=== PATIENT | female | born 1990 | race Caucasian/White ===

== ENCOUNTER 2019-06-23 11:54 | Emergency (ER) | payer SELFPAY ==
[~2019-06-23] VITALS: Ht 167.6 cm; Wt 65.8 kg
[2019-06-23] MEDS ORDERED: METFORMIN HCL850 MG PO ×2 (12:20→15:34)
[2019-06-23] MEDS ORDERED: LEVEMIR100 UNIT/1 SUB-Q (12:20)
[2019-06-23] MEDS ORDERED: HUMALOG100 UNIT/1 SUB-Q (12:20)
[2019-06-23] MEDS ORDERED: CREON DR 24,001 EACH PO ×2 (12:21→15:34)
[2019-06-23] MEDS ORDERED: ACTOS30 MG PO ×2 (12:21→15:34)
[2019-06-23] MEDS ORDERED: OMEPRAZOLE20 M1 PO (12:22)
[2019-06-23] MEDS ORDERED: SYNTHROID100 MCG PO ×2 (12:22→15:34)
[2019-06-23] MEDS ORDERED: MINIPRESS2 MG PO ×2 (12:22→15:34)
[2019-06-23] MEDS ORDERED: ZOFRAN4 MG PO (12:23)
[2019-06-23] MEDS ORDERED: SEROQUEL100 MG PO (12:24)
[2019-06-23] MEDS ORDERED: PROZAC20 MG PO (12:24)
[2019-06-23] MEDS ORDERED: CRESTOR40 MG NG ×2 (12:25→15:34)
[2019-06-23] MEDS ORDERED: MAGNESIUM400 MG PO (12:25)
[2019-06-23] MEDS ORDERED: DOCUPRENE100 MG PO (12:25)
[2019-06-23] MEDS ORDERED: HUMALOG KW200 UNIT/1 SUB-Q (15:34)
[2019-06-23] MEDS ORDERED: OMEPRAZOLE20 MG PO (15:34)
[2019-06-23] MEDS ORDERED: LEVEMIR FL100 UNIT/2 SUB-Q (15:34)
[2019-06-23] MEDS ORDERED: ZOFRAN8 MG PO (15:34)
[2019-06-23] MEDS ORDERED: DOK100 MG PO (15:34)
[2019-06-23] MEDS ORDERED: MAGNESIUM400 M1 PO (15:34)
[2019-06-23] MEDS ORDERED: BACTRIM DS TAB1 EACH PO (15:35)
[2019-06-23] MEDS ORDERED: KEFLEX500 MG PO (15:35)
== END 2019-06-24 08:10 ==
LOC: ED 11:54
DX: F31.9 Bipolar disorder, unspecified (principal); B37.3 Candidiasis of vulva and vagina; E13.9 Other specified diabetes mellitus without complications; E78.5 Hyperlipidemia, unspecified; F17.200 Nicotine dependence, unspecified, uncomplicated
CPT/HCPCS: 80053; 80176; 81001; 84443; 84703; 85025; 99285; A9270; G0480; J1815

== ENCOUNTER 2020-01-23 14:12 | Emergency (ER) | payer MEDICARE, OTHER ==
[~2020-01-23] VITALS: Ht 165.1 cm; Wt 74.8 kg
[~2020-01-23 14:12] MED LIST: ACTOS30 MG PO; BACTRIM DS TAB1 EACH PO; CREON DR 24,001 EACH PO; CRESTOR40 MG NG; DOCUPRENE100 MG PO; DOK100 MG PO; HUMALOG KW200 UNIT/1 SUB-Q; HUMALOG100 UNIT/1 SUB-Q; KEFLEX500 MG PO; LEVEMIR FL100 UNIT/2 SUB-Q; LEVEMIR100 UNIT/1 SUB-Q; MAGNESIUM400 M1 PO; MAGNESIUM400 MG PO; METFORMIN HCL850 MG PO; MINIPRESS2 MG PO; OMEPRAZOLE20 M1 PO; OMEPRAZOLE20 MG PO; PROZAC20 MG PO; SEROQUEL100 MG PO; SYNTHROID100 MCG PO; ZOFRAN4 MG PO; ZOFRAN8 MG PO
[2020-01-23] MEDS ORDERED: SEROQUEL200 MG PO (14:42)
[2020-01-23] MEDS ORDERED: CLOZAPINE100 MG PO (14:43)
[2020-01-23] MEDS ORDERED: TOPAMAX25 MG PO (14:43)
[2020-01-23] MEDS ORDERED: FLOVENT HFA10.6 GM INH (14:44)
[2020-01-23] MEDS ORDERED: VISTARIL50 MG PO (14:44)
[2020-01-23] MEDS ORDERED: NORCO 5-325 TA1 EACH PO (17:24)
[2020-01-23] MEDS ORDERED: ONDANSETRON ODT8 MG PO (17:24)
== END 2020-01-23 17:47 | disposition home or self-care (01) ==
LOC: ED 14:12
DX: K85.90 Acute pancreatitis without necrosis or infection, unspecified (principal); F31.9 Bipolar disorder, unspecified; E11.9 Type 2 diabetes mellitus without complications; E78.5 Hyperlipidemia, unspecified; F17.200 Nicotine dependence, unspecified, uncomplicated; Z88.8 Allergy status to other drugs, medicaments and biological substances; Z79.4 Long term (current) use of insulin; Z79.899 Other long term (current) drug therapy
CPT/HCPCS: 80053; 81001; 83690; 84703; 85025; 96361; 96374; 96375; 96376; 99284-25; J1170; J1815; J2405; J7030

== ENCOUNTER 2020-02-12 12:02 | Emergency (ER) | payer MEDICARE, OTHER ==
[~2020-02-12] VITALS: Ht 167.6 cm; Wt 74.8 kg
[~2020-02-12 12:02] MED LIST changes: +CLOZAPINE100 MG PO; +FLOVENT HFA10.6 GM INH; +NORCO 5-325 TA1 EACH PO; +ONDANSETRON ODT8 MG PO; +SEROQUEL200 MG PO; +TOPAMAX25 MG PO; +VISTARIL50 MG PO
[2020-02-12] MEDS ORDERED: ZOFRAN4 MG PO (15:17)
== END 2020-02-12 15:26 | disposition home or self-care (01) ==
LOC: ED 12:02
DX: E11.65 Type 2 diabetes mellitus with hyperglycemia (principal); E86.0 Dehydration; R74.8 Abnormal levels of other serum enzymes; F31.9 Bipolar disorder, unspecified; E78.5 Hyperlipidemia, unspecified; J45.909 Unspecified asthma, uncomplicated; Z88.8 Allergy status to other drugs, medicaments and biological substances; Z79.4 Long term (current) use of insulin; Z79.899 Other long term (current) drug therapy
CPT/HCPCS: 71045; 80053; 80061; 81001; 82800; 83690; 83735; 84703; 85025; 96361; 96374; 96375; 99285-25; G0480; J1815; J1885; J2270; J2405; J7030

== ENCOUNTER 2021-03-30 11:16 | Inpatient (IN) | payer MEDICARE, OTHER ==
[~2021-03-30] VITALS: Ht 165.1 cm; Wt 65.3 kg
[2021-03-30] MEDS ORDERED: CYCLOBENZAPRINE5 MG PO (15:41)
[2021-03-30] MEDS ORDERED: BUSPIRONE HCL10 MG PO (15:42)
[2021-03-30] MEDS ORDERED: QUETIAPINE FUM100 MG PO (15:43)
[2021-03-30] MEDS ORDERED: FENOFIBRATE120 MG PO (15:45)
[2021-03-30] MEDS ORDERED: CREON DR 24,001 EACH PO (15:45)
[2021-03-30] MEDS ORDERED: FLUTICASONE PRO16 GM NAS (15:47)
[2021-03-30] MEDS ORDERED: HUMALOG100 UNIT/2 SUB-Q (15:48)
[2021-03-30] MEDS ORDERED: LATUDA40 MG PO (15:49)
[2021-03-30] MEDS ORDERED: ONDANSETRON ODT4 MG PO (15:50)
[2021-03-30] MEDS ORDERED: PULMICORT FLEX90 MCG INH (15:50)
[2021-03-30] MEDS ORDERED: TOPIRAMATE50 MG PO (15:50)
[2021-03-30] MEDS ORDERED: METFORMIN HCL850 MG PO (15:52)
[2021-03-30] MEDS ORDERED: VENTOLIN HFA18 GM INH (16:37)
[2021-03-30] MEDS ORDERED: EUTHYROX100 MCG PO (16:38)
[2021-03-30] MEDS ORDERED: LANTUS SOL100 UNIT/1 SUB-Q (16:39)
[2021-03-30] MEDS ORDERED: LO-DOSE ASPIRIN81 M1 PO (17:49)
[2021-03-30] MEDS ORDERED: PRENATAL TABLE1 EAC3 PO (17:50)
--- NOTE | 2021-03-31 13:37 | EKG ---
[facility] [address] [facility] [place], [place] [address] Signed Sinus tachycardia Cannot rule out Anterior infarct , age undetermined Abnormal ECG No previous ECGs available Confirmed by WENDI HOLBROOK MD ([id number]) on 03/31/2021 1:36:56 PM Electronically Signed By: WENDI HOLBROOK MD 03/31/21 1337 PATIENT NAME: CLIFF LEEMONIE JENNINGSANN MARTHA Electrocardiogram DATE OF : 88 PHYSICIAN: WENDI HOLBROOK MD REPORT #: [id number] REPORT IS CONFIDENTIAL AND NOT TO BE RELEASED WITHOUT AUTHORIZATION
== END 2021-04-01 09:10 | disposition home or self-care (01) | DRG 832 ==
LOC: FBC 11:16 → MS 12:30 → FBC 12:31
PROVIDERS: ADMIT Obstetrics & Gynecology; ATTEND Obstetrics & Gynecology
DX: O24.112 Pre-existing type 2 diabetes mellitus, in pregnancy, second trimester (principal); O99.322 Drug use complicating pregnancy, second trimester; O99.282 Endocrine, nutritional and metabolic diseases complicating pregnancy, second trimester; Z20.822 Contact with and (suspected) exposure to COVID-19; E78.5 Hyperlipidemia, unspecified; F15.10 Other stimulant abuse, uncomplicated; E11.65 Type 2 diabetes mellitus with hyperglycemia; O99.512 Diseases of the respiratory system complicating pregnancy, second trimester; J45.909 Unspecified asthma, uncomplicated; F19.10 Other psychoactive substance abuse, uncomplicated; O99.342 Other mental disorders complicating pregnancy, second trimester; F41.9 Anxiety disorder, unspecified; O99.332 Smoking (tobacco) complicating pregnancy, second trimester; F17.210 Nicotine dependence, cigarettes, uncomplicated; F31.9 Bipolar disorder, unspecified; F43.10 Post-traumatic stress disorder, unspecified; Z3A.15 15 weeks gestation of pregnancy; Z88.8 Allergy status to other drugs, medicaments and biological substances
CPT/HCPCS: 80053; 82570; 84156; 85025; 93005; 93010; 94640; 94760; 97802; 99406; A9270; C9803; J1815; U0003

== ENCOUNTER 2021-06-04 07:04 | Emergency (ER) | payer MEDICARE, OTHER ==
[~2021-06-04] VITALS: Ht 165.1 cm; Wt 80.4 kg
[~2021-06-04 07:04] MED LIST changes: +BUSPIRONE HCL10 MG PO; +CYCLOBENZAPRINE5 MG PO; +EUTHYROX100 MCG PO; +FENOFIBRATE120 MG PO; +FLUTICASONE PRO16 GM NAS; +HUMALOG100 UNIT/2 SUB-Q; +LANTUS SOL100 UNIT/1 SUB-Q; +LATUDA40 MG PO; +LO-DOSE ASPIRIN81 M1 PO; +ONDANSETRON ODT4 MG PO; +PRENATAL TABLE1 EAC3 PO; +PULMICORT FLEX90 MCG INH; +QUETIAPINE FUM100 MG PO; +TOPIRAMATE50 MG PO; +VENTOLIN HFA18 GM INH
[2021-06-04] MEDS ORDERED: CYCLOBENZAPRINE10 MG PO (08:12)
== END 2021-06-04 08:31 | disposition home or self-care (01) ==
LOC: ED 07:04
DX: O9A.212 Injury, poisoning and certain other consequences of external causes complicating pregnancy, second trimester (principal); S39.012A Strain of muscle, fascia and tendon of lower back, initial encounter; E07.9 Disorder of thyroid, unspecified; O24.912 Unspecified diabetes mellitus in pregnancy, second trimester; E11.9 Type 2 diabetes mellitus without complications; O99.282 Endocrine, nutritional and metabolic diseases complicating pregnancy, second trimester; E78.5 Hyperlipidemia, unspecified; O99.512 Diseases of the respiratory system complicating pregnancy, second trimester; J45.909 Unspecified asthma, uncomplicated; O99.332 Smoking (tobacco) complicating pregnancy, second trimester; F17.200 Nicotine dependence, unspecified, uncomplicated; Z91.048 Other nonmedicinal substance allergy status; Z88.8 Allergy status to other drugs, medicaments and biological substances; Z3A.25 25 weeks gestation of pregnancy; Z79.899 Other long term (current) drug therapy; Z79.82 Long term (current) use of aspirin; Z79.890 Hormone replacement therapy
CPT/HCPCS: 81001; 99284; A9270

== ENCOUNTER 2021-07-18 11:56 | Inpatient (IN) | payer MEDICARE, OTHER ==
[~2021-07-18] VITALS: Ht 165.1 cm; Wt 73.9 kg
[~2021-07-18 11:56] MED LIST changes: +CYCLOBENZAPRINE10 MG PO
--- NOTE | 2021-07-18 13:30 | NUR ---
both nares swabbed for covid-19 without complication. sample taken to lab.
--- NOTE | 2021-07-18 15:28 | PR ---
[facility] [address] [place], [place] [address] Signed AP Progress Notes Datetime Report Generated by CPN: 07/18/2021 15:28 Chief Complaint: Lab results PHYSICAL EXAM: [id number] Impression: IUD @ 31w1d PreE with severe features; BPs improved s/p procardia and pt stable on mag Diabetic ketoacidosis; Consult Dr. Basurto. M paged and awaiting call back re timing transfer IDDM uncontrolled Plan: Called and Dr. Ha M accepted transfer of patient as labs were pending. Labs returned and demonstrate pt in DKA. Sodium 118, Anion gap 25, Creat 0.67. Glucose 491. Consulted Dr. Basurto who has started patient on insulin drip and IV fluids. He feels the patient could be appropriate for transfer if accepting doctor agrees. Page to Dr Ha and awaiting return of page to discuss further. VITAL SIGNS: [id number] Vital Signs: Reviewed VS Notable Details: Severe range BPs EXAM: [id number] Contraction Comments: None MEMBRANES: [id number] FETUS A: [id number] FHR Baseline: 125 Variability: Moderate 6-25bpm Accelerations: None Deceleration: None FHR Category: Category I FHR Comments: No evidence of metabolic acidosis Presentation: Vertex FETUS B: [id number] PROGRESS NOTES: [id number] Signing Physician: Enio Elliott DO Copies: ~ *Electronically Signed* 07/18/21 1528 ENIO ELLIOTT DO PATIENT NAME: ROSASHAMEKA MARCELA THOMAS PROGRESS NOTE DATE OF : 88 PHYSICIAN: ENIO ELLIOTT DO RPT #: [id number] REPORT IS CONFIDENTIAL AND NOT TO BE RELEASED WITHOUT AUTHORIZATION
--- NOTE | 2021-07-18 15:30 | NUR ---
IN TO ASSIST [facility] NURSE PRADEEP WITH CARE OF PT AND MANAGE INSULIN DRIP, REPORT RECEIVED FROM PRADEEP NATION AND RAVIN RN. PLAN DISCUSSED WITH DR HOLBROOK TO START PT ON INSULIN DRIP AND TITRATE PER PROTOCOL AND SWITCH IVF TO NS WITH 40KCL AT 200ML/HR. PT ALSO HAS MAGNESIUM INFUSION INFUSING AT 2G/HR. PLAN DISCUSSED WITH PT, SHE ASKS IF WE CAN USE HER OWN CONT GLUCOSE MONITORING INSTEAD OF POKING HER FINGER, BLOOD SUGAR CHECKED WITH OUR MACHING AND THE NUMBERS DO NOT CORRELATE, PTS MACHING SAID 291 AND OURS SAID 342, EXPLAINED TO PT NEED TO USE OURS AND SHE AGREES. INSULIN INFUSION WILL START AT 6 UNITS/HR, VERIFIED WITH SECOND RN. CURRENT VS ARE HR 120'S. PT IS AWAKE AND ALERT, TALKING WITH SIG OTHER AND OTHER SUPPORT PEOPLE IN ROOM. MONITORING IS BEING DONE BY [facility] CHAPIS FERNÁNDEZ.
--- NOTE | 2021-07-18 15:54 | PR ---
[facility] [address] [place], [place] [address] Signed AP Progress Notes Datetime Report Generated by CPN: 07/18/2021 15:54 Chief Complaint: PreE with severe features ; DKA PHYSICAL EXAM: [id number] General: Normal HEENT: Normal Neurologic: Normal Cardiovascular: Normal Respiratory: Normal Breast: Not Done Back: Normal Genitourinary Exam: Not Done Extremities: Normal Impression: IUP @31w1d Preeclampsia w/ severe features; stable on mag s/p procardia DKA IDDM uncontrolled Plan: Reviewed case w/ Dr. Ha including reassuring FHT. She recommends proceeding with maternal transfer by [facility]. Transfer team en route. Will continue magneisum and insulin drip. All questions answered VITAL SIGNS: [id number] Vital Signs: Reviewed VS Notable Details: Severe range BPs EXAM: [id number] Contraction Comments: None MEMBRANES: [id number] FETUS A: [id number] FHR Baseline: 125 Variability: Moderate 6-25bpm Accelerations: None Deceleration: None FHR Category: Category I FHR Comments: No evidence of metabolic acidosis Presentation: Vertex FETUS B: [id number] PROGRESS NOTES: [id number] Signing Physician: Enio Elliott DO *Electronically Signed* 07/18/21 1554 ENIO ELLIOTT DO PATIENT NAME: SHAMEKA LEE PROGRESS NOTE DATE OF : 88 PHYSICIAN: ENIO ELLIOTT DO RPT #: [id number] REPORT IS CONFIDENTIAL AND NOT TO BE RELEASED WITHOUT AUTHORIZATION [facility] [address] [place], [place] [address], [place] [address] Signed Copies: ~ *Electronically Signed* 07/18/21 1554 ENIO ELLIOTT DO PATIENT NAME: SHAMEKA LEE PROGRESS NOTE DATE OF : 88 PHYSICIAN: ENIO ELLIOTT DO RPT #: [id number] REPORT IS CONFIDENTIAL AND NOT TO BE RELEASED WITHOUT AUTHORIZATION
--- NOTE | 2021-07-18 16:25 | NUR ---
BLOOD SUGAR DOWN TO 313, INSULIN DRIP TITRATED DOWN TO 5 UNITS/HR AND VERIFIED BY SECOND RN.
--- NOTE | 2021-07-18 18:05 | PR ---
[facility] [address] [place], [place] [address] Signed AP Progress Notes Datetime Report Generated by CPN: 07/18/2021 18:05 Chief Complaint: PReE with severe features, DKA PHYSICAL EXAM: [id number] General: Normal HEENT: Normal Neurologic: Normal Cardiovascular: Normal Respiratory: Normal Breast: Not Done Back: Normal Genitourinary Exam: Not Done Extremities: Normal Impression: IUP @31w1d Preeclampsia w/ severe features; stable on mag s/p procardia DKA IDDM uncontrolled Plan: Pt w/ elevated bps improved w/ IV labetalol per protocol. Glucose improved w/ insulin drip. Transfer unfortunately delayed due to weather in the [place] area. FHT reassuring. Pt struggling with NPO and continuous monitoring and become aggitated at times. Able to be redirected. VITAL SIGNS: [id number] Vital Signs: Reviewed VS Notable Details: Severe range BPs EXAM: [id number] Contraction Comments: None MEMBRANES: [id number] FETUS A: [id number] FHR Baseline: 125 Variability: Moderate 6-25bpm Accelerations: None Deceleration: None FHR Category: Category I FHR Comments: No evidence of metabolic acidosis Presentation: Vertex FETUS B: [id number] PROGRESS NOTES: [id number] Signing Physician: Enio Elliott DO *Electronically Signed* 07/18/21 0063 ENIO ELLIOTT DO PATIENT NAME: SHAMEKA LEE PROGRESS NOTE DATE OF : 88 PHYSICIAN: ENIO ELLIOTT DO RPT #: [id number] REPORT IS CONFIDENTIAL AND NOT TO BE RELEASED WITHOUT AUTHORIZATION [address] [place], [place] [address] Signed Copies: ~ *Electronically Signed* 07/18/21 1805 ENIO ELLIOTT DO PATIENT NAME: SHAMEKA LEE PROGRESS NOTE DATE OF : 88 PHYSICIAN: ENIO ELLIOTT DO RPT #: [id number] REPORT IS CONFIDENTIAL AND NOT TO BE RELEASED WITHOUT AUTHORIZATION
--- NOTE | 2021-07-18 18:47 | NUR ---
DISCUSSED BPS WITH DR HERNANDEZ, ORDER GIVEN TO WAIT 15 MINUTES AND THEN GIVE ANOTHER 80MG IV LABETOLOL PRN SBP>160MMHG. BP 162/104 AFTER FIFTEEN MINUTES, 80MG IV LABETOLOL GIVEN.
--- NOTE | 2021-07-18 19:01 | NUR ---
DISCUSSED PTS CONTINUED C/O NAUSEA WITH DR HERNANDEZ, ORDER GIVEN FOR 12.5MG IV PHENERGAN AGAIN. [facility] RN REMAINS AT BEDSIDE OF PT DOING MONITORING.
--- NOTE | 2021-07-18 19:44 | PR ---
[facility] [address] [place], [place] [address] Signed AP Progress Notes Datetime Report Generated by CPN: 07/18/2021 19:44 Chief Complaint: PReE with severe features, DKA PHYSICAL EXAM: [id number] General: Normal HEENT: Normal Neurologic: Normal Thyroid: Not Done Cardiovascular: Normal Respiratory: Normal Breast: Not Done Back: Normal Abdomen: Normal Genitourinary Exam: Not Done Extremities: Normal Impression: IUP @ 31w1d PreE w/ severe features - improved s/p labetalol. On magnesium 2g/hr IDDM w/ DKA on insulin drip. Last glucose 242. Plan: Called and reviewed case w/ Dr Ha. Weather unchanged and not likely to in the foreseeable future restricting air transfer. We discussed transportation options vs continued management here and we both recommend ground transport. FHT reassuring with no decelerations noted. Reviewed w/ pt. All questions answered. Coordinating transport now. VITAL SIGNS: [id number] Vital Signs: Reviewed VS Notable Details: Severe range BPs EXAM: [id number] Contraction Comments: None MEMBRANES: [id number] FETUS A: [id number] FHR Baseline: 125 Variability: Moderate 6-25bpm Accelerations: None Deceleration: None FHR Category: Category I FHR Comments: No evidence of metabolic acidosis Presentation: Vertex FETUS B: [id number] PROGRESS NOTES: [id number] *Electronically Signed* 07/18/21 ENIO MIRAMONTES DO PATIENT NAME: SHAMEKA LEE PROGRESS NOTE DATE OF : 88 PHYSICIAN: ENIO ELLIOTT DO RPT #: [id number] REPORT IS CONFIDENTIAL AND NOT TO BE RELEASED WITHOUT AUTHORIZATION [address] [place] [address] Signed Signing Physician: Enio Elliott DO Copies: ~ *Electronically Signed* 07/18/211943 ENIO ELLIOTT DO PATIENT NAME: SHAMEKA LEE PROGRESS NOTE DATE OF : 88 PHYSICIAN: ENIO ELLIOTT DO RPT #: [id number] REPORT IS CONFIDENTIAL AND NOT TO BE RELEASED WITHOUT AUTHORIZATION
--- NOTE | 2021-07-18 20:30 | NUR ---
PER DR HOLBROOK INSULIN DRIP TITRATED TO 2 UNITS PER HOUR. FLUIDS CHANGED TO D5 NS WITH 20 mEq KCL. MENDEL NATION VERIFIED CHANGE.
--- NOTE | 2021-07-18 20:47 | PR ---
[facility] [address] [place], [place] [address] Signed AP Progress Notes Datetime Report Generated by CPN: 07/18/2021 20:47 Chief Complaint: DKA, Preeclampsia w/ severe features PHYSICAL EXAM: [id number] General: Normal HEENT: Normal Neurologic: Normal Thyroid: Not Done Cardiovascular: Normal Respiratory: Normal Breast: Not Done Back: Normal Abdomen: Normal Genitourinary Exam: Not Done Extremities: Normal Impression: IUP @ 31w1d PreE w/ severe features: stable on Mag DKA: improved. Last blood glucose 214. Insulin infusion for transfer per Dr. Basurto Plan: Transport team arrived and sign out given. All questions answered. Reviewed reassuring FHT given gestational age and magnesium. No decelerations noted. BPs stable. All questions answered VITAL SIGNS: [id number] Vital Signs: Reviewed VS Notable Details: Severe range BPs EXAM: [id number] Contraction Comments: None MEMBRANES: [id number] FETUS A: [id number] FHR Baseline: 125 Variability: Moderate 6-25bpm Accelerations: None Deceleration: None FHR Category: Category I FHR Comments: No evidence of metabolic acidosis Presentation: Vertex FETUS B: [id number] PROGRESS NOTES: [id number] Signing Physician: Enio Elliott DO *Electronically Signed* 07/18/212046 ENIO ELLIOTT DO PATIENT NAME: SHAMEKA LEE PROGRESS NOTE DATE OF : 88 PHYSICIAN: ENIO ELLIOTT DO RPT #: [id number] REPORT IS CONFIDENTIAL AND NOT TO BE RELEASED WITHOUT AUTHORIZATION [address] [place] [address] Signed Copies: ~ *Electronically Signed* 07/18/212046 ENIO ELLIOTT DO PATIENT NAME: SHAMEKA LEE PROGRESS NOTE DATE OF : 88 PHYSICIAN: ENIO ELLIOTT DO RPT #: [id number] REPORT IS CONFIDENTIAL AND NOT TO BE RELEASED WITHOUT AUTHORIZATION
== END 2021-07-18 21:09 | disposition home or self-care (01) | DRG 831 ==
LOC: FBC 11:56
PROVIDERS: ADMIT Obstetrics & Gynecology; ATTEND Obstetrics & Gynecology
PROC: 05HY33Z Insertion of Infusion Device into Upper Vein, Percutaneous Approach (ICD-10-PCS; principal; 2021-07-18 14:00)
DX: O24.113 Pre-existing type 2 diabetes mellitus, in pregnancy, third trimester (principal); E11.10 Type 2 diabetes mellitus with ketoacidosis without coma; O14.13 Severe pre-eclampsia, third trimester; E87.1 Hypo-osmolality and hyponatremia; Z20.822 Contact with and (suspected) exposure to COVID-19; Z3A.31 31 weeks gestation of pregnancy; E87.6 Hypokalemia; O99.283 Endocrine, nutritional and metabolic diseases complicating pregnancy, third trimester; E03.9 Hypothyroidism, unspecified; Z79.4 Long term (current) use of insulin; Z91.14 Patient's other noncompliance with medication regimen; Z88.8 Allergy status to other drugs, medicaments and biological substances; Z91.09 Other allergy status, other than to drugs and biological substances; Z79.899 Other long term (current) drug therapy
CPT/HCPCS: 36415; 36569; 80048; 80053; 82010; 82570; 83036; 84156; 84550; 85027; A9270; C9803; J1815; J2550; J3475; J3480; U0003

== ENCOUNTER 2021-08-11 09:38 | Inpatient (IN) | payer MEDICARE, OTHER ==
[~2021-08-11] VITALS: Ht 152.4 cm; Wt 78.9 kg
--- NOTE | 2021-08-11 15:02 | NUR ---
REPORT RECIEVED FROM ER NURSE HANNY.
--- NOTE | 2021-08-11 15:02 | NUR ---
REPORT RECEIVED FROM CHAPIS URBINA. AWAITING PTS ARRIVAL TO UNIT.
--- NOTE | 2021-08-11 15:27 | NUR ---
PT ARRIVED FROM ER. PT TRANSFERED SELF TO BED. PT STEADY ON FEET. PT REPORTS 9/10 PAIN IN ABDOMEN RELATED TO INFECTION. SEE MAR FOR MEDICATION GIVEN. PT ALSO REPORTS ITCHING AND NASUEA. PHENEGRAN GIVEN, DILUTED IN 20ML NS AND GIVEN BY SLOW PUSH. PT ANXIOUS AND AGITATES, SCRATCHING AT SKIN AND PICKING AT WOUNDS PTS STATES "WELL MY FRIEND GAVE ME SOMETHING THAT MIGHT HAVE HAD METH IN IT." PT UNSURE OF WHEN SHE HAD THIS "SOMETHING" "MAYBE A FEW DAYS AGO." PT ORIENTED TO ALL. TACHYCARDIA NOTED. LUNG SOUNDS CLEAR. PT REMAINS NPO A THIS TIME. COOL CLOTH PROVIDED FOR ITCHING. CH CATHETER IN PLACE, CATHETER AND CATHETER BAG VERY DIRTY, DIRT NOTED ARROUND EDGES OF BAG. CATEHTER LEFT IN PLACE PER MD ORDER, CATHETER BAG CHANGE. CATHETER CARE DONE. PT REPORTS VAGINAL BLEEDING SINCE DEIVERING HER SON. TRANSVERSE AND MIDLINE WOUND TO ABDOMEN HAS MEEK INTACT, FOWEL YELLOW DRAINAGE NOTED. ERYTHEMY NOTED ALL AROUND BOTH INCISIONS. PT PLAYING ON PHONE. MAKES INAPPROPRIATE JOKES AND COMMENTS FROM PHONE. PT DENIES ADDITIONAL REQUESTS OR COMPLAINTS. CALL LIGHT WITHIN REACH. BED RAILS UP. BED ALARM ON. INCISIONS.
--- NOTE | 2021-08-11 16:10 | NUR ---
THIS RN TO ROOM TO CHECK ON PT. PT CONTINEUS PLAYING ON PHONE. PT REPORTS "I THINK THE ITCHING IS BETTER." PT CALMER AND RESTING IN BED. NO ADDITIONAL REQUESTS OR COMPLAINTS. CALL LIGHT ELADIO HEART. BED RAILS UP.
--- NOTE | 2021-08-11 17:08 | NUR ---
OR TEAM ARRIVED TO TAKE PT TO SURGERY. BED SIDE CBG DONE PER ROLANDO PEREZ BEDSIDE ORDER. BLOOD SUGAR = 175 AT THIS TIME. PT REPORTS 7/10 PAIN AT THIS TIME AND STATES "THAT MEDICATION HELPED." PT TEXTING ON PHONE WHILE TALKING TO CASINO DEALER. DR. HERNANDEZ TO BEDSIDE TO TALK WITH PT. PT VERBALIZES UNDERSTANDING OF PLAN OF CARE AND STATES HER QUESTIONS HAVE BEEN ANSWERED. REPORT GIVEN TO JESE LILLY RN, AND ROLANDO PEREZ. PT TO OR. NO ADDITIONAL NEEDS AT THIS TIME.
--- NOTE | 2021-08-11 18:29 | NUR ---
08/11/21 182 Rakel King 181 PT ARRIVED TO PACU ON 6L VIA MASK, VSS. PT WAKES AND REORIENTED TO PACU. 1813 O2 REMOVED, CBG 167 CHECKED BY PT OWN CBG CHECK. PT ON PHONE AND CALLED "BOYFRIEND". PT DENIES PAIN. PT REPORTS "I AM UNABLE TO MOVE LEGS AND IT FEELS WIERD." SPINAL EDUCATION GIVEN. 1824 PT GETTING OFF PHONE. HOB INCREASED SLIGHTLY. 1827 PT CALLED ANOTHER PERSON AND TLAKING TO RN OFF AND ON. PT SIPPING WATER.
--- NOTE | 2021-08-11 18:54 | NUR ---
PT ARRIVED FROM PACU. REPORT RECEIVED FROM CHAPIS DEL ANGEL. PT RESTING IN BED. PT AGITATED WITH NOT BEING ABLE TO FEEL HER LEGS. PT DENIES PAIN IN ABDOMEN OR SURGICAL SITE. PT REPORTS PAIN AT IV SITE. IV FLUSHED AND INFILTRATION NOTED. IV DC'D PER PROTOCOL, GAUZE AND COBAN APPLIED. SPINAL LEVEL AT T-11. HEAD OF BED ELEVATED TO 33 DEGREES. WOUND VAC IN PLACE OVER CENTRAL ABDOMEN, C/D/I WITH 120MM/HG APPLIED AND WOUDN VAC FUNTION WNL. PT DENIES NAUSEA. PT TALKING WITH FAMILY ON PHONE. PT REMAINS ON CPOX WITH OXYGEN SATURATIONS ABOVE 94% ON ROOM AIR. NO ADDIITONAL REQUESTS OR COMPLAINTS AT THIS TIME. CALL LIGHT WIHTIN REACH BED RAILS UP.
--- NOTE | 2021-08-11 19:15 | NUR ---
IN ROOM FOR REPORT, PT IS AWAKE IN BED AND SAYING SHE DOES NOT LIKE THE TINGLY FEELING FROM THE BLOCK. PT ASSURED BY BRITTANIE NATION. WILL CHECK ORDER AND BRING PT WATER. CALL LIGHT IS CLOSE.
--- NOTE | 2021-08-11 19:57 | NUR ---
PT CHECKED HER BLOOD SUGAR WITH HER MONITOR, IT WAS 157. DR HOLBROOK WILL PUT IN ORDERS FOR INSULIN.
--- NOTE | 2021-08-11 21:15 | NUR ---
IN ROOM TO ADMINISTER VISTARIL FOR ITCHING AND ANXIETY. PT IS THRASHING AROUND IN BED SAYING SHE ITCHES, NO RASHES NOTED. PT STATES HER CH IS GETTING PULLED ON, ADVISED PT TO TRY TO LEAVE IT ALONE AND SHE KEEPS PUTTING HER HANDS DOWN THERE. STUDENT RN IN ROOM TO START A NEW IV ON PT. SHE WAS SUCCESSFUL ON THE FIRST TRY. PT COMPLAINS OF THE LOCATION OF HER IV IN R WRIST BECAUSE SHE SAYS SHE WILL NOT BE ABLE TO USE HER RIGHT HAND OR EAT. TOLD PT WE WILL WRAP IT UP WITH COBAN AND TRY TO BE CAREFUL OF IT. PT ASKING AGAIN FOR MORE PAIN MEDICATIONS. TOLD PT THAT THIS RN DID NOT HEAR BACK FROM DR YET BUT WAS TOLD BY SUPERVISOR SHELLFISH FARMING THAT WE WILL NOT BE GIVING HER NARCOTICS WHILE SHE IS HERE. PT STATES HER FRUSTRATION WITH THIS AND SAYS NO ONE IS LISTENING TO HER. APPOLOGIZED TO PT AND ADVISED HER THAT OUR DR'S TRY TO USE HIGHER DOSES OF TYLENOL AND TORADOL TO CONTROL PAIN TO AVOID NARCOTICS FOR VARIOUS REASONS. PT STATES SHE WILL NOT BE ABLE TO SLEEP ALL NIGHT. PT COMPLAINING OF NAUSEA, ADMINISTERED IV ZOFRAN, PT IS BACK ON IV FLUIDS LR AT 85MLS/HR. PT DENIES FURTHER NEEDS, ICEWATER PROVIDED. CALL LIGHT IS CLOSE.
--- NOTE | 2021-08-11 22:10 | NUR ---
PT CALLED ASKING FOR WATER. DR HOLBROOK SOON CAME INTO ROOM TO ASSESS PT. AFTER HE LEFT PT STATES TYLENOL DOES NOT WORK AND SHE NEEDS SOMETHING STRONGER LIKE DILAUDID. PT STARTS ITCHING ALL OVER SAYING SHE FEELS ITCHY. ENCOURAGED PT NOT TO SCRATCH AND OFFERED LOTION, SHE REFUSED. ADMINISTERED TYLENOL AND TOLD PT WE NEED TO TRY THIS BEFORE CALLING THE DR TO SEE ABOUT STRONGER MEDICATION. PT WAS UPSET BUT AGREED. PT ALSO REFUSED HEPARIN. PT STATES HER CH CATHETER FEELS WEIRD. IT IS IN PLACE AND DRAINING FINE. PT ASKED FOR VISTARIL FOR ITCHING, EXPLAINED TO PT DR HOLBROOK IS PUTTING IN ORDERS AND THIS RN WILL RETURN LATER WITH THE NEW MEDICATIONS HE ORDERED. FRESH ICEWATER PROVIDED AND PT DENIES NEEDS. CALL LIGHT IS CLOSE.
--- NOTE | 2021-08-12 00:48 | NUR ---
PT IS RESTING WITH EYES CLOSED, RR IS EVEN AND UNLABORED. CALL LIGHT IS CLOSE AND IV IS INFUSING FINE.
--- NOTE | 2021-08-12 02:07 | NUR ---
PT CALLED ASKING FOR A SNACK. SHE RATES HER PAIN AT 7/10 AT THIS TIME. ADMINISTERED IV TORADOL DILUTED SLOW PUSH. IV IS INFUSING FINE. VS AND I&O'S ENTERED AND PT DENIES FURTHER NEEDS. PT STATES SHE FEELS ALITTLE BETTER AFTER GETTING SOME SLEEP.
--- NOTE | 2021-08-12 03:42 | NUR ---
PT IS RESTING WITH EYES CLOSED, RR IS EVEN AND UNLABORED. CALL LIGHT IS CLOSE AND IV IS INFUSING FINE.
--- NOTE | 2021-08-12 06:26 | NUR ---
IN ROOM TO START IV MERREM, PT ITCHING ALL OVER AND ASKING FOR VISTARIL. ADMINISTERED PRN VISTARIL AND VS/I&O'S ENTERED. FRESH ICEWATER PRVIDED AND PT DENIES FURTHER NEEDS. CALL LIGHT IS CLOSE.
--- NOTE | 2021-08-12 07:30 | NUR ---
RECEIVED BEDSIDE REPORT FROM RN, PT. IS AWAKE AND TALKATIVE AND ORIENTED TO THIS DAY AND THE PLAN OF CARE TODAY. NO NEEDS AT THIS TIME, DENIES PAIN, ASSUMED ALL CARE THIS SHIFT,
--- NOTE | 2021-08-12 07:31 | NUR ---
REPORT RECEIVED FROM CHAPIS HOPSON. PT RESTING IN BED ON RIGHT SIDE, RESPIRTIONS EVEN AND UNLABORED. IV PUMP ALARMING "DISTAL OCCLUSION." IV ASSESSED, WNL. ARM REPOSITIONED AND INFUSIN RESTARTED. PT CONTINUES RESTING. BED RAILS UP. BED ALARM ON. CALL LIGHT WITHIN REACH. PT ALLOWED TO REST. THIS RN ASSISTING CHAPIS IZAGUIRRE WITH CARE OF PT.
[2021-08-12] MEDS ORDERED: CYCLOBENZAPRINE5 MG PO (08:20)
[2021-08-12] MEDS ORDERED: HYDROXYZINE HCL25 MG PO (08:22)
[2021-08-12] MEDS ORDERED: METFORMIN HCL1000 MG PO (08:23)
[2021-08-12] MEDS ORDERED: PULMICORT FLEX90 MCG INH (08:25)
[2021-08-12] MEDS ORDERED: DOCUSATE SODIU100 MG PO (08:29)
[2021-08-12] MEDS ORDERED: CREON DR 12,001 EACH PO (08:29)
[2021-08-12] MEDS ORDERED: LABETALOL HCL200 MG (08:30)
[2021-08-12] MEDS ORDERED: FLUTICASONE PRO16 GM NAS (08:30)
[2021-08-12] MEDS ORDERED: LANTUS SOL100 UNIT/1 SUB-Q (08:31)
[2021-08-12] MEDS ORDERED: NYSTATIN15 G2 TOP (08:31)
[2021-08-12] MEDS ORDERED: HUMALOG100 UNIT/2 (08:31)
[2021-08-12] MEDS ORDERED: OMEPRAZOLE20 MG PO (08:32)
[2021-08-12] MEDS ORDERED: GABAPENTIN300 MG PO (08:37)
[2021-08-12] MEDS ORDERED: CLEARLAX119 GM PO (08:38)
--- NOTE | 2021-08-12 08:59 | NUR ---
UPON ENTERING ROOM PT COOPERATIVE AND ANSWERING QUESTIONS, SUDDENLY THEN SHE STARTED DEMANDING PAIN MEDS AFTER IT WAS EXPLAINED THAT ALL POSSIBLE PRN PAIN MEDS AND SCHEDULED PAIN MEDS HAD BEEN GIVEN. SHE THEN STARTED TO YELL AND BECOME AGGRESSIVE AND DEMANDED THAT SHE SEE THE "[facility]" DOCTOR AND SHE IS IN PAIN AND NEEDS SOMETHING BUT COULD NOT EXPLAIN IN DETAIL WHAT MED SHE IS SEEKING. SHE CONTINUED TO BE AGGRESSIVE AND SWUNG AT RN TWICE. SHE CONTINUES TO CRY AND TALK ON THE PHONE AND EAT AND STILL DEMAND TO SEE THE DOCTOR. IVF INFUSING WELL, ALSO ABX INFUSING. SITTING CROSS LEGGED ON THE BED
--- NOTE | 2021-08-12 09:20 | NUR ---
NURSE BACK IN ROOM TO CHECK ON PATIENT, SHE IS CALM AND HAS HER HOME NURSE VISITING. SHE IS MORE RELAXED AND COOPERATIVE. HOME NURSE STATES HER PSYCH MEDS HAVE KICKED IN AND SHE IS MORE STABLE. NOT VOICING PAIN CONCERNS AT THIS TIME. DISCUSSED SHE HAS TORADOL AVAILABLE AND WOULD LIKE THAT AT 1000. HOME NURSE STATES SHE DOES NOT TAKE CHRONIC PAIN MEDS AT HOME BUT BECAUSE OF HER RECENT MULTIPLE SURGERIES HER PAIN TOLERANCE HAS INCREASED. SHE IS RESTING IN THE BED AND SHE CALLS FOR NEEDS APPROPRIATELY. PLAN TO CONTACT CONSULT FOR POSSIBLE NEEDS WITH A BREAST PUMP.
--- NOTE | 2021-08-12 09:38 | NUR ---
THIS RN TO ROOM TO CHECK ON PT. PT VISITING WITH ALYSSA (HOME HEALTH VISITING NURSE FOR THE [facility]) AND ORIN HOBBS ([facility] COUNSELOR) ABOUT HER PLAN OF CARE AND PAIN CONTROL. 20 MINUTE CONVERSATION HELD WITH THESE ASSISTANTS, PT AND THIS RN. PT AGREES TO CURRNET PAIN CONTROL. PT REPORTS "I DONT' WANT FUCKING OPOIDS." PT STATES SHE WANTS "THE TORADOL AND MY GABAPENTIN." PT REMINDED OF MEDICAITONS SHE IS TAKING AND NEXT DUE TIMES. PT CONTINUES FIGITING IN BED. PT REPORTS SHE DOES NOT WANT TO GO HOME STATING "THERE ARE RATS WHERE I LIVE." PLAN FOR DISCHARGE HOUSING BEING DISUCSSED WT PT BY ORIN AND ALYSSA WHO STATE "WE CAN HELP WITH THAT." PT REPORTS SHE WANTS MORE FOOD. ADDITIONAL FOOD ORDERED FOR PT. PT STATES "I THINK MY ANXIETY IS MAKING ME FEEL PAIN." PT SITTING CROSS LEGGED IN BED TALKING CONSISTANTLY IN ONE LONG STREAM OF WORDS. CALL LIGTH WITHIN REACH. BED RAILS UP.
--- NOTE | 2021-08-12 10:13 | NUR ---
PATIENT RECENTLY DELIVERED A BABY AND HAS TYPE 2 DM. SHE HAS A HISTORY OF METH AND MARIJUANA USE. DIET ORDER IS 60 GM CONSISTENT CARB DIET. A SECOND BREAKFAST TRAY ORDERED. WE SENT UP ANOTHER TRAY TOTALING 5 GM CARB. WILL CONTINUE TO WORK WITH NURSING AND PATIENT TO PROVIDE FOOD WITHIN CARB LIMITS FOR MEALS AND SNACKS. SNACKS CAN BE 15-20 GM CARBS. WILL CONTINUE TO MONITOR.
--- NOTE | 2021-08-12 10:50 | NUR ---
THIS RN TO ROOM TO CHECK ON PT. PT RESTING ON RIGHT SIDE WITH EYES CLOSED. RESPIRATIONS EVEN AND UNLABORED. DIET DR. HAMM DELIVERED TO PT, PT DOES NOT AWAKEN TO ACTIVITY IN ROOM. WOUND VAC REMAINS IN PLACE SET AT 120MM/HG, NO ISSUES NOTED. PT ALLOWED TO REST. CALL LIGHT WITHIN REACH. BED RAILS UP.
--- NOTE | 2021-08-12 11:15 | NUR ---
NOTED BY THIS RN THAT PT RECEIVD 4 TABELTS OF LIPASE/AMALAYSE/PROTEASE THIS MORNING, NOT TWO INDICATED IN EMAR. ADDITIONAL TABLETS ACCIDENTLY GIVEN BY CHAPIS SMITH, WITH MEDICATION PASS. PHARMCIST UPDATED ON AND STATES SHE HAS NO CONCERNS WITH THIS ADDITIONAL DOSE. DR. HOLBROOK UPDATED AND STATES TO HOLD NOON DOES AND THEN PROCEED WITH MEDICATIONS SCHEDULED. PT CONTINUES TO REST WITH EYES CLOSED ON RIGHT SIDE. WOUND VAC REMAINS WNL. NO ADDITIONAL NEEDS AT THIS TIME. CHAPIS SMITH UPDATED. PLASTERER HELPER ALSO UPDATED.
--- NOTE | 2021-08-12 12:13 | NUR ---
ENTERED RN WITH MD AND SECOND RN TO DISCUSS PLAN OF CARE, SHE DISCUSSED HER NEED FOR ADDITIONAL PAIN MEDS AND IT WAS DECIDED THAT WE WOULD BE OFFERING HER PERCOCET ALONG WITH THE OTHER PRN PAIN MEDS SHE HAS. SHE WAS VERY VOCAL AND DEFENSIVE THAT NO ONE UNDERSTANDS AND SWEARING AND STATES SHE IS NOT "ADDICTED TO DRUGS" EVEN THOUGH HER URINE WAS POSITIVE FOR RECENT DRUG USE. SHE THEN AGREED SOMEWHAT RELUCTANTLY. CALL LIGHT NEAR PATIENT AND RESTING IN BED EATING LUNCH
--- NOTE | 2021-08-12 13:12 | CONS ---
[facility] [address] [place], [place] [address] Signed DATE OF CONSULTATION: 08/11/2021 Emergency Room Consultation and Admission Note PROBLEM: Wound infection, status post and postoperative complex bladder repair for laceration. HISTORY: This 30-year-old white woman presents to the emergency room today and evaluated by Dr. Chris Elias. Her complaints were that of lower abdominal pain in the suprapubic area, where she was noted to have a wound infection ... She underwent a on July 23, 2021, at [facility]. She had been transferred from [facility] in [place] with pre-eclampsia, diabetes out of control, and performed at [facility] resulted in an iatrogenic bladder laceration. She underwent repair of bladder laceration on July 29, 2021. She has an indwelling Logan catheter. Her pain around the lower abdomen was evaluated by Dr. Panchal with clinical examination showing separation of some of the skin and obvious wound infection. CT scan was performed, which confirmed air bubbles within the deep soft tissue concordant to that incision. There was no sign of intraabdoiminal infection ( abscess) or fascial dehiscence. The patient says she has had some drainage that was light yellow, though not copious in amounts. She has had no stool drainage that she is aware of. She has had no pneumaturia. A Logan catheter remains in place. PAST MEDICAL HISTORY: Rather complex. It sounds as though several years ago she had severe pancreatitis, for which she underwent laparotomy and debridement and probably delayed wound closure, which subsequently resulted in what sounds like a fistula requiring a fair amount of wound care, a diverting colostomy, and other interventions. She ultimately had complete closure of the abdomen. From what I gather, she ended up with pancreatic insufficiency and diabetes which she is impressively non compliant in dealing with. Her concordant problem other than diabetes is long-standing bipolar disease, hyperlipidemia, (likely causing the pancreatitis), asthma, and notably methamphetamine abuse. She does not have any history of opiate abuse she says. She does smoke 4-5 cigarettes daily. She does have a boyfriend with whom she lives. She is accompanied today by a community nurse provider, who will be assisting her over the first two years of her 's life. Electronically Signed By: CHRIS SANDERS MD 08/12/21 1312 PATIENT NAME: SHAMEKA LEE CONSULTATION DATE OF : 88 REPORT #: [id number] PHYSICIAN: CHRIS SANDERS MD PCP: ENIO SALCIDO MD REPORT IS CONFIDENTIAL AND NOT TO BE RELEASED WITHOUT AUTHORIZATION [facility] [address] [place] [id number] Signed Notably, her is in the Intensive Care Unit in [place] at initially 31 weeks' gestation. CURRENT MEDICATIONS: Include: 1. Buspirone 10 mg p.o. b.i.d. 2. Quetiapine 100 mg p.o. t.i.d. 3. Fenofibrate 120 mg p.o. daily. 4. Albuterol inhaler two puffs q.4 hours as needed for shortness of breath. 5. Synthroid 100 mcg p.o. daily. 6. Aspirin low-dose 81 mg two tablets p.o. daily and vitamin. REVIEW OF SYSTEMS: She says she has had fever and chills and lightheadedness at home. She denies any shortness of breath or chest pain. Denies any abdominal pain other than the suprapubic area where incision was made. PHYSICAL EXAMINATION: GENERAL: She is an alert, oriented, nontoxic-appearing, white woman. VITAL SIGNS: Her BMI is 31.8 with height of 5 feet 0 inches and 73.94 kg in weight. NECK: Trachea is midline. CHEST: Shows normal respiratory excursion. HEART: Regular. ABDOMEN: Somewhat obese. There is a long midline incision extending to the suprapubic area. The upper incision is long-standing, well healed. There is a transverse Pfannenstiel incision colliding with a vertical incision ostensibly related to the bladder repair. At the confluence of this incision to the left is separation of the skin with free-floating skin clips and necrotic fat. I see no sign of enteric drainage at this time. There is local erythema and tenderness. EXTREMITIES: Show no clubbing, cyanosis, or edema. : Logan catheter is in place. ASSESSMENT: I have reviewed the CT scan in detail and based on that in the clinical examination, she does have a wound infection, which is apparently extraperitoneal. I am hopeful and guardedly optimistic that there is no sign of enteric injury that may have been concordant to the bladder laceration and subsequent repair. I would recommend exam under anesthesia, debridement of necrotic tissue, drainage of abscess, cultures, and of course antibiotic treatment. She may require wound VAC or other measures to allow for expedient healing. I am told by Dr. Elias that he did call the operating urologist and others in the [place] area, who say that their "hospital is full." Electronically Signed By: CHRIS SANDERS MD 08/12/21 1312 PATIENT NAME: SHAMEKA LEE CONSULTATION DATE OF : 88 REPORT #: [id number] PHYSICIAN: CHRIS SANDERS MD PCP: ENIO SALCIDO MD REPORT IS CONFIDENTIAL AND NOT TO BE RELEASED WITHOUT AUTHORIZATION [address] [place], [place] [address] Signed I discussed with the patient in the presence of her community nurse the risks of bleeding, infection, need for other indicated procedures, and so on. They understand and wished to proceed. MD CALVIN Vasquez/FANG /[id number] cc: DO Dr. Chris Hewitt DO Lohith Veerappa Reddy, MD Copies: SYLVIA COREAS JAMES D DO REDDY, LOHITH VEERAPPA MD ~ Electronically Signed By: CHRIS SANDERS MD 08/12/21 1312 PATIENT NAME: SHAMEKA LEE MARCELA MARTHA CONSULTATION DATE OF : 88 REPORT #: [id number] PHYSICIAN: CHRIS SANDERS MD PCP: ENIO SALCIDO MD REPORT IS CONFIDENTIAL AND NOT TO BE RELEASED WITHOUT AUTHORIZATION
--- NOTE | 2021-08-12 13:12 | OR ---
[facility] [address] [place], [place] [address] Signed DATE OF OPERATION: 08/11/2021 SURGEON: Chris Sanders MD PREOPERATIVE DIAGNOSES: 1. Postoperative wound infection (fascial layer low abdomen, suprapubic area). 2. History of (July 23) concurrent bladder laceration and subsequent repair July 29, 2021 ([place], [place]). 3. Multiple medical problems including poorly controlled insulin-dependent diabetes mellitus, obesity and methamphetamine abuse. POSTOPERATIVE DIAGNOSES: 1. Postoperative wound infection (fascial layer low abdomen, suprapubic area). 2. History of (July 23) concurrent bladder laceration and subsequent repair July 29, 2021 ([place], [place]). 3. Multiple medical problems including poorly controlled insulin-dependent diabetes mellitus, obesity and methamphetamine abuse. 4. Infected wound superficial to deepest fascial layer with fascial layer intact. 5. Necrotic subcutaneous fatty tissue. PROCEDURES: 1. Exam under anesthesia. 2. Debridement of necrotic fat, irrigation and drainage of abscess abdominal wall. 3. Placement of wound VAC device. ANESTHESIA: Spinal with sedation; Abby Eng CRNA. INDICATION: This 30-year-old white woman formally a patient of Dr. Nicola Elliott, who was referred to [facility] in [place], [place], July 23 or so having presented with diabetes out of control and preeclampsia. The patient has numerous health problems including insulin-dependent diabetes mellitus for which she is poorly compliant with therapy as well as ongoing methamphetamine use. Her child was 31 weeks gestation at the time of and has been in the intensive care unit and continues to improve. She presented to the emergency room today, evaluated by Dr. Chris Elias noting pain and drainage from her lower abdominal wound. Wound edges were and obviously infected wound was noted. A CT scan was performed which showed air bubbles and findings consistent with abscess and possibly necrotic tissue in the substance of her Electronically Signed By: CHRIS SANDERS MD 08/12/21 1312 PATIENT NAME: SHAMEKA LEE OPERATIVE REPORT DATE OF : 88 REPORT #: [id number] PHYSICIAN: CHRIS SANDERS MD PCP: ENIO SALCIDO MD REPORT IS CONFIDENTIAL AND NOT TO BE RELEASED WITHOUT AUTHORIZATION [facility] [address] [place] [id number] Signed Pfannenstiel incision at the confluence of a low midline incision. It is noted that in addition to emergency in [place], she sustained a bladder laceration, which was repaired on July 29. The patient has been fluid resuscitated, given broad-spectrum antibiotic meropenem and now to undergo wound exploration, debridement, and other indicated procedures. She understands risk of bleeding, infection, and so forth and wished to proceed. FINDINGS: The billy that were in place in the Pfannenstiel and vertical midline incision were removed. The infected process was all superficial to the deepest fascia. The fascial integrity was complete. There was no evidence of fascial separation in any way and certainly no evisceration. Necrotic and infected tissue was noted vertically and transversely. Debridement was undertaken completely and a wound VAC device applied with good effect. DESCRIPTION OF PROCEDURE: The patient was brought to the operating room, given an upright spinal anesthetic and placed in the supine position. Given intravenous sedation as well. The lower abdomen was prepared with a Betadine solution and draped sterilely. Preoperative antibiotic meropenem had been given. A Logan catheter was already in place as part of her healing process from the bladder injury repair. After sterile preparation and draping, examination of the wound was undertaken. Probing of the wound with the index finger showed a space deep and laterally and to some extent vertically. Gram stain and cultures were obtained. The wound clips were then removed with a hemostat completely and the infected space bluntly . It appeared the fascial layer was intact. A running transverse nonabsorbable blue suture was noted in place. There was no sign of fascial defect. No sign of evisceration. Debridement of necrotic fat was undertaken with a banjo curette. Irrigation was undertaken with saline and subsequently with (dilute Hibiclens). The vertical component of the incision was similarly troubled and was bluntly without problem. Once complete debridement and irrigation was undertaken, hemostasis assured. A wound VAC black sponge was cut to size and placed into the depths of the wound and with usual technique suction applied to 120 mmHg with portable device. This maintained the suction well. She was ultimately transferred to regular stretcher and taken to recovery room in good condition having suffered no complications. Sponge, needle, and instrument counts were reported as correct x3. Electronically Signed By: CHRIS SANDERS MD 08/12/21 1312 PATIENT NAME: SHAMEKA LEE OPERATIVE REPORT DATE OF : 88 REPORT #: [id number] PHYSICIAN: CHRIS SANDERS MD PCP: ENIO SALCIDO MD REPORT IS CONFIDENTIAL AND NOT TO BE RELEASED WITHOUT AUTHORIZATION [address], [place] [address] Signed MD CALVIN Vasquez/MODL /[id number] cc: DO Jemma Flynn MD John Elliott, MD Copies: ENIO ELLIOTT LOHITH VEERAPPA MD ~ Electronically Signed By: CHRIS SANDERS MD 08/12/21 1312 PATIENT NAME: ROSASHAMEKABECKY THOMAS OPERATIVE REPORT DATE OF : 88 REPORT #: [id number] PHYSICIAN: CHRIS SANDERS MD PCP: ENIO SALCIDO MD REPORT IS CONFIDENTIAL AND NOT TO BE RELEASED WITHOUT AUTHORIZATION
--- NOTE | 2021-08-12 13:14 | NUR ---
PT. RESTING IN BED, CALLED FOR PRN PAIN MED THAT WAS RECENTLY ADDED. RATES HER ABDOMEN PAIN 9/10, STABBING SHARP PAIN. GAVE PERCOCET 7.5 MG PO FOR ABDOMEN PAIN. WOUND VAC, IVF PATENT. CALL PEACE IN REACH, STATES SHE LIKES HER ROOM DARKER AND HAS A GARCIA. BLINDS DOWN A LITTLE MORE. PT. REFUSING HER SCD'S AT THIS TIME.
--- NOTE | 2021-08-12 13:47 | NUR ---
PTS BOYFRIEND ARRIVED TO ROOM, ESCORTED BY CLIENT SERVICE REPRESENTATIVE MINA. ENEDINA, BOYFRIEND, APPEARS CALM AND CONVERSATIONAL, HAS LARGE BAG OF ITEMS WITH HIM INCLUDING OUTSIDE FOOD. EDUCATION DONE WITH PT AND BOYFRIEND REGARDIGN NOT TAKING DRUGS OR MEDICATIONS FROM HOME. PT AND BOYFRIEND VERBALIZE UNDERSTANDING. PT REQUESTS TO GET UP TO RESTROOM TO VOID. PT HAS LARGE SOFT BOWEL MOVEMENT. PT PERFORMES SELF KRISTIN CARE. PT REPORTS PAIN HAS IMPROVED, NOW 6/10 IN ABDOMEN. WOUND VAC REMAINS WNL. SUCTION RETURNED AFTER AMBULATION TO BED AT 120MM/HG. DRESSING INCTACT. PT DENIES ADDITONAL REQUESTS OR COMPLAINTS. CALL LIGHT WITHIN REACH. BED RAILS UP.
--- NOTE | 2021-08-12 14:08 | NUR ---
PATIENT AWAKE IN BED, S/O AT BEDSIDE. VITALS AND I&OS CHARTED. CH EMPTIED. PATIENT UNABLE TO SIT STILL IN BED, C/O PAIN AND CONTINUES TO SCRATCH HER LEGS AND RUBS THEM TOGETHER. PATIENT AND S/O WATCHING VIDEO OF BABY ON PHONE. CALL LIGHT IN EASY REACH.
--- NOTE | 2021-08-12 14:41 | NUR ---
SPOKE WITH ACCOUNT MANAGER EMPLOYEE BENEFITS ABOUT BREAST FEEDING AND PUMP. ELECTRIC PUMP BROUGHT TO ROOM AND PT EDUCATED ON HOW TO USE PUMP. PT STATES SHE HAD THE SAME PUMP ALREADY AND KNOWS HOW TO USE IT. REPORTS THAT SHE IS PUMPING AND DUMPING AT THIS TIME.
--- NOTE | 2021-08-12 14:46 | NUR ---
RN CHECKED ON PT., PT. STATES HER IV IS LEAKING, IV IN R WRIST IS INFILTRATED, DC'D IV. S/O AT BEDSIDE, COOPERATIVE AND PLEASANT. GAVE PT. HUMMUS AND CRACKERS FOR SNACKS. CM IN ROOM TO DISCUSS HER DISCHARGE NEEDS. POSSIBLE ASSIST WITH [employer] AND RN TO FOLLOW FOR WOUND VAC AND NEEDS. SLIGHT SEROUS DRAINAGE THIS SHIFT FROM WOUND VAC. STATES PAIN IS CONTROLLED AT THIS TIME WITH PRN MEDS. RATES ABDOMEN PAIN 4-5/10. ASSISTED TO BR FOR BM, LOOSE BROWN. ASSISTED BACK TO BED. URINE OCCURENCE X 1 WELL. BREAST PUMP BROUGHT TO ROOM, SHE IS FAMILIAR WITH THIS PUMP AND DOES NOT NEED INSTRUCTION PER PT.
--- NOTE | 2021-08-12 15:40 | NUR ---
THIS RN TO ROOM TO CHECK ON PT. PT RESTING IN BED, ON RIGHT SIDE, TALKING WITH FRIENDS ON PHONE. PT REPORTS 6/10 PAIN IN ABDOMEN AND DENIES NEED FOR ADDITIONAL PAIN MEDICATION. PT ASKES TO BE LEFT ALONG TO CONTINUE HER CONVERSATION. WOUND VAC EXAMINED, WNL. DRESSING INTACT. MINMAL REDNESS NOTED IN KRISTIN WOUND EDGES. NEGATIVE PRESSURE IN PLACE AT 120MM/HG. SEROUS ANGUINOUS DRAINGE NOTED IN CANISTER. PT ALLOWED TO REST. CALL LIGHT WITHIN REACH. BED RAILS UP.
--- NOTE | 2021-08-12 15:53 | NUR ---
TCT DR. SANDERS, ORDERS RECEIVED TO LEAVE IV OUT AND DC CONTINUOUS IVF. HE HAD GIVEN ORDERS FOR CONSULTING AND ELECTRIC BREAST PUMP.
--- NOTE | 2021-08-12 16:09 | NUR ---
LAB CALLED TO SEE IF GRAHM STAIN IS AVLIABLE. GRAHM POSTIIVE COCCI REPORTED FROM INITIAL GRAHM STAIN. DR. SANDERS CALLED AND UPDATED REGRADING INTIAL GRAHM STAIN. NO NEW ORDERS AT THIS TIME RELATED TO GRAHM STAIN. NEW ORDERS GIVEN FOR ODT WM Q6PRN, REPEAT BACK PERFORMED, ORDERS ENTERED.
--- NOTE | 2021-08-12 16:30 | NUR ---
Spoke with pt and she was staying at her boyfriends, Dads home. She states this is why she got an infection. Per staff report her catheter bag and tubing were very dirty. Pt stating she can't go home and is homeless. She plans on returning to [place] on the to [place] for Dr. cagle and will stay with her aunt. She is on SSI and is her own payee, she works with [employer] and states they saw her this am. Hailee from [employer] as also called me. We are all checking for a place for this pt to go. I have called the [facility] and I am awaiting a return call Hailee is checking [facility] [place]. I did let Hailee know, pt has follow up appts in [place] soon. Asked if she could check for a rehab that accepts medical pts near [place]. I faxed request to [facility] at 1500 requesting auth for NPWT. Discussed this with pt and asked if she would like supplies sent to the hospital or to where she was staying She states to send to address listed in the chart.Will cont. to work with this pt, [employer], Nurse that is assisting pt in the community.
--- NOTE | 2021-08-12 16:55 | NUR ---
Received a call from Ezekiel at [facility]. Pt is not in their system. Their program is through [facility] and pt and her boyfriend would need to visit her tomorrow and complete and intake. If there are beds available, she could hop picker a pritchard at 6 pm, there is no leaving and people need to stay in their rooms until 5 am. Everyone needs to leave by 9 am. They may return at 6 pm and may stay for 90 days. There are no rooms available on the main floor and pt will need to be able to walk up the stairs. Returned to pts room. She is now saying she will return to [place] on the . She wants to go see her baby and for Dr.s cagle. I updated on the [facility] and pt is very irriated and states she hates the medical system. She again is stating she cannot leave as she will get a worse infection. Let her know I will have to discuss with Dr. Napoles. I also updated, Hailee is attempting to find her a rehab. Pt states she does not need rehab and will not go. She plans on returning to her Aunts in [place].I am awaiting [facility] for her wound therapy. Per [facility] they no longer supply motel rooms for homeless pts. Will cont. to work with this pt tomorrow.
--- NOTE | 2021-08-12 17:06 | NUR ---
ADMITTED TO UNIT FOR SURGICAL PROCEDURE, I & D OF ABDOMEN INCISION, S/P C SECTION IN [facility] ON 07/23, BLADDER ISSUE POST OP AND CH WAS PLACED. PER SURGICAL TEAM INFECTION TO ABDOMEN WAS NOT VERY DEEP BUT A WOUND VAC WAS PLACED TO 120 MM HG. SHE PROGRESSED SLOWLY WITH PAIN COMPLICATIONS. DIFFICULT TO CONTROL AND AN ADDITIONAL PRN MED WAS ORDERED TODAY WITH GOOD RESULTS. DIFFICULT IV STICK AND 2 IV'S INFILTRATED IN 24 HOURS. ALL MEDS WERE TRANSITIONED TO PO MEDS FOR DISCHARGE SOON. CH PATENT TO SD WITH YELLOW CLEAR URINE. APPETITE EXCELLENT WITH SNACKS AND ADEQUATE LIQUIDS. TOLERATING WELL, FOOD, SNACKS, WATER, DIET SODA, FRIENDS AND FAMILY BRING EXTRA FOOD. BLOOD GLUCOSE SQ IMPLANTED MONITOR L UPPER ARM. PT. WAS VERY EMOTIONAL THIS MORNING, CRYING AND UNCOOPERATIVE SECONDARY TO C/O PAIN WHICH WAS RESOLVED. PT. CURRENTLY HOUSELESS AND CM ASSISTING WITH DC PLAN.
--- NOTE | 2021-08-12 18:03 | NUR ---
THIS RN TO ROOM TO CHECK ON PT, VITALS AND I/O'S DUE. PT AGITATED AND USING "FUCK WITH EVERYTHINGS SHE SAYS. pT STATES "I CAN'T GET ANYTHIGN I FUCKING WANT! THIS IS BULL SHIT." PT VERY AGITATED. AND SCREAMING AND YELLING AT STAFF. PT REPROTS 10/10 PAIN. AND DEMANDS PAIN MEDICATION NOW. PT DECLINES PERCOCET STATING SHE WANTS IBUPROFEN. CALL PLACED TO DR. SANDERS, NEW ORDERS GIVEN. REPEAT BACK DONE AND ORDERS ENTERED. SEE MAR FOR MEDICATION GIVEN. PT DEMANDS ADDITIONAL FOOD. LAURENT CALLED FOR PROTEIN TRAY. PT YELLS "I DON'T WANT YOUR FUCKING FOOD, I WANT TO EAT WHATEVER I WANT!" PT ENCOARUGED TO EAT HER SNACKS AT BEDSIDE, PT YELLS "THAT'S NOT WHAT I FUCKING WANT!" PT ENCORUAGED TO CALL HER SUPPORT TEAM AND TALK WITH THEM ON THE PHONE. PT DENEIS ADDITIONAL REQUESTS OR COMPLAINTS. CALL LIGHT WITHIN REACH. BED RAILS UP.
--- NOTE | 2021-08-12 19:05 | NUR ---
RECEIVED REPORT, PT IS RESTING AT THIS TIME. CALL LIGHT IS CLOSE.
--- NOTE | 2021-08-12 21:41 | NUR ---
PT CALLED, SHE WAS DONE IN BATHROOM. CHANGED DEPENDS, AND ASSISTED BACK TO BED WITH HER WOUND VAC. CHANGED BEDDING, REPLACED, WARM BLANKET PROVIDED, FRESH ICE WATER PROVIDED WELL. CALL LIGHT WITHIN REACH.
--- NOTE | 2021-08-12 21:41 | NUR ---
IN TO GET VS, NO FURTHER NEEDS AT THIS TIME
--- NOTE | 2021-08-12 22:26 | NUR ---
IN ROOM TO ADMINISTER MEDICATIONS. PT'S GLUCOSE MONITOR READS 122. ADMINISTERED SEMGLEE 27 UNITS PER ORDERS AND NO SLIDING SCALE D/T IT BEING LESS THAN PARAMETERS. PT IS ITCHING AND ANXIOUS, ADMINISTERED VISTARIL. PT REPORTS PAIN AT 9/10 ADMINISTERED MOTRIN. WOUND VAC IS INTACT AND SUCTIONING FINE. PT REFUSES HEPARIN AGAIN TONIGHT. SHE DENIES FURTHER NEEDS. CALL LIGHT IS CLOSE.
--- NOTE | 2021-08-12 23:55 | NUR ---
PT IS RESTING WITH EYES CLOSED, RR IS EVEN AND UNLABORED. CALL LIGHT IS CLOSE.
--- NOTE | 2021-08-13 01:02 | NUR ---
PT IS RESTING WITH EYES CLOSED, RR IS EVEN AND UNLABORED. CALL LIGHT IS CLOSE.
--- NOTE | 2021-08-13 03:20 | NUR ---
PT IS RESTING WITH EYES CLOSED, RR IS EVEN AND UNLABORED. CALL LIGHT IS CLOSE.
--- NOTE | 2021-08-13 05:25 | NUR ---
PT CALLED ASKING FOR PAIN MEDICATION. PT RATES HER PAIN AT 9/10 IN ABD. ADMINISTERED 1 PERCOCET AT THIS TIME. VS AND I&O'S ENTERED. CH CATH HAS SOME SEDIMENT NOTED. PT DENIES FURTHER NEEDS AT THIS TIME. CALL LIGHT IS CLOSE.
--- NOTE | 2021-08-13 07:11 | NUR ---
REPORT RECEIVED FROM CHAPIS HOPSON. PT RESTING ON RIGHT SIDE WITH EYES CLOSED. RESPIRATIONS EVEN AND UNLABORED. WOUND VAD IN PLACE WITH GREEN LIGHT FLASHING AT 120MM/HG. PT ALLOWED TO REST. CALL LIGHT WITHIN REACH. BED RAILS UP.
--- NOTE | 2021-08-13 07:33 | NUR ---
BEDSIDE REPORT FROM NIGHT RN, PT. RESTING IN BED, EYES CLOSED RESPIRATIONS EVEN. CALL PEACE AT SIDE
--- NOTE | 2021-08-13 08:15 | NUR ---
THIS INDUSTRY ANALYST IN FOR GLUCOSE CHECK, PATIENT AWAKE AND VISIBLY UPSET. C/O PAIN AND FRUSTRATION OF NEEDING TO BE DISCHARGED SO SHE CAN GET TO [place] TO MEET HER AUNT AFTER WORK BECAUSE HER AUNT IS THE "ONLY CLEAN PERSON" SHE CAN STAY WITH. PATIENT STATES SHE FEELS THE DR "HATES HER AND JUST JUDGING HER." PATIENT NOW SOBBING IN BED AND STATES NO ONE UNDERSTANDS. RN NOTIFIED. CALL LIGHT NAD PERSONAL PHONE IN EASY REACH
--- NOTE | 2021-08-13 08:42 | NUR ---
MORNING ASSESSMENT AND MEDICATION DUE. THIS RN TO ROOM. PT UP TO RESTROOM FOR BOWEL MOVEMENT. PT AGITATED AND PULLING AT TUBES IN THE RESTROOM. PT ADVISED TO REMAIN STILL AND WAIT FOR ASSISTANCE IN RESTROOM. 1 PERSON ASSIST FOR LINE AND TUBE MANAGEMENT BACK TO BED. PT STEADY ON FEET. PT REPORTS 8/10 PAIN IN ABDOMEN AND "BECAUSE OF THIS CATHETER." URINE IN CATHETER LINE NOW NOTED TO BE LIGHT PINK IN COLOR. PT OREINTED TO ALL, VERY ANXIOUS AND AGITATED. PT TALKING WITH SUPPORT PERSONS ON PHONE AND IS HEARD ADIMENTLY REFUSING TREATMENT CENTER PLACEMENT. PT ALSO STATES SHE DOES NOT WANT TO USE MEDICAL TRANSPORT TO GET TO HER HOUSING OPTIONS. LUNG SOUNDS CLEAR. HEART TONES REGULAR. BOWEL TONES ACTIVE. PT AGITATED WITH ABDOMEN EXAMINATION. ABDOEMN TENDER TO TOUCH. WOUND VAC REMAINS IN PLACE. WNL. GREEN LIGHT ACTIVE ON CANISTER AT 120MM/HG. SEROUS ANGUINOUS DRAINAGE NOTED IN LINE, SMALL AMOUNT. URINE IN CATHETER SEEMS TO BE LIGHTENING AND RETURNING MORE TO A YELLOW COLOR PT RESTS. PT CONTINUES RESTING ON RIGHT SIDE, NO ADDIITONAL REQUESTS OR COMPLAINTS. CALL LIGHT WITHIN REACH. BED RAILS UP.
--- NOTE | 2021-08-13 09:30 | NUR ---
THIS RN TO ROOM TO CHECK ON PT. PT RESTING IN BED, CALM AND COOPERATIVE AT THIS TIME. PT REPORTS "I WAS JUST SO ANXIOUS." PT REPORTS FEELING "BETTER" NOW. PT RATES ABDOMINAL PAIN AT 7/10 AT THIS TIME. URINE APPEARS TO HAVE LIGHTENED, NOW YELLOW IN COLOR. ONE SMALL CLOT NOTE IN TUBING. PT REQUESTS ADDITIONAL BREAKFAST, ADDITIONAL EGGS ORDERED. 1 PERSON ASSIST, FOR LINE AND TUBE MANAGEMENT, UP TO RESTROOM. PT HAS ADDITONAL LOOSE BROWN BOWEL MOVEMENT. PT PERFORMS SELF KRISTIN CARE. 1 PERSON ASSIST BACK TO BED. URINE REMAINS YELLOW TO VERY LIGHT PINK IN COLOR. PT DENIES ADDITIONAL REQUESTS OR COMPLAINTS. CALL LIGHT WITHIN REACH. BED RAILS UP.
--- NOTE | 2021-08-13 10:32 | NUR ---
PATIENT RESTING IN BED, VITALS AND I&OS CHARTED. CH EMPTIED.
--- NOTE | 2021-08-13 10:40 | NUR ---
Spoke with Dr. Napoles and updated pt plans on leaving for [place] in the next day or so to see her infant. I am unsure how we will get wound care for this pt as she does not have a stable living situation and her stories have changed many times. Received order to cancel auth for the out patient wound vac. He will take this pt to the OR tomorrow to remove the black foam and view the wound. Pt will have a dry dressing so she will be able to manage no matter where she is. Plan is for pt to dc tomorrow after wound vac is removed and wound is observed by Dr. Napoles.
--- NOTE | 2021-08-13 10:51 | NUR ---
THIS RN TO ROOM WITH DR. SADNERS FOR ROUNDS. PLAN OF CARE DISCUSSED WITH PT. PT VERBALIZES UNDERSTANDING AND STATES HER QUESTIONS HAVE BEEN ANSWERED. DR. SANDERS UPDATED ON PTS STATUS INCLUDING PINK URINE. PT REQUESTS "MORE PAIN MEDICATION." REPORTS 8/10 ABDOMINAL PAIN WHILE TALKING ON PHONE. SEE MAR FOR MEDICATION GIVEN. PT DENIES ADDITIONAL REQUESTS OR COMPLAINTS. CALL LIGHT WITHIN REACH. BED RAILS UP.
--- NOTE | 2021-08-13 12:35 | NUR ---
MEDICATIONS DUE. 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 PT REPORTS 7/10 PAIN IN ABDOMEN, TALKING NON STOP, ONE LONG STREAM OF WORDS. PT LAUGHING AND TELLING JOKES TO ALYSSA. MEDICATIONS GIVEN(SEE MAR). PT EATING LUNCH. NO ADDITIONAL REQUESTS OR COMPLAINTS. CALL LIGHT WITHIN REACH. BED RAILS UP.
--- NOTE | 2021-08-13 13:40 | NUR ---
AFTERNOON ASSESSMENT AND MEDICATION DUE. PT CALL LIGHT ON. PT REQUESTS ASSISTANCE UP TO RESTROOM. STAND BY ASSIST UP TO RESTROOM. PT HAS ADDITONAL LOOSE BOWEL MOVEMENT, PT PERFORMES SELF KRISTIN CARE. STAND BY ASSIST BACK TO BED. PT CHEERFUL AND READING ONLINE STORIES ABOUT HER BABY IN [place]. PT SHOWS PICTURES AND STATES "I LOVE THIS PICTURE THE MOST BECAUSE HE HAS BLACK EYES AND LOOKS LIKE A DEAMON FROM [employer]." PT REPORTS 7/10 PAIN IN ABDOMEN WHILE LAUGHING AND TELLING STOIES. PT STATES SHE WOULD LIKE TO WAIT UNTIL GABAPENTIN AND IBUPROFEN IS DUE. IV STARTED IN LEFT FORARM PER PROTOCOL PT IS PRE OP AND WILL NEED IV FOR PROCEEDURE. BRISK BLOOD RETURN NOTED. LINE SALINE LOCKED AT THIS TIME, ALCOHOL CAP APPLIED. PT ALERT AND OREINTED X4, CALM AND COOPERATIVE AT THIS TIME. HEART TONES REGULAR, LUNG SOUNDS CLEAR. CH CATHETER IN PLACE. YELLOW URINE WITH SEDIMENT NOTED AT THIS TIME. WOUND VAC IN PLACE AND WNL. GREEN LIGHT INDICATOR ON. SCANT AMOUT OF SEROUS ANGUNOUS DRAINAGE NOTED IN TUBING. 120MM/HG APPLIED. MINIMAL REDNESS NOTED AROUND WOUND EDGES. MICHELLE BATISTA [employer] ARRIVED TO TALK WITH PT. PTS SIGNIFICANT OTHER ARRIVED AND GARTH SNACKS FOR PT. PT COOING AND TALKING IN BABY LIKE VOICE AT THIS TIME WITH SIGNIFICANT OTHER. PT DENIES ADDITIONAL REQUESTS OR COMPLAINTS. CALL LIGHT WITHIN REACH. BED RAILS UP.
--- NOTE | 2021-08-13 14:16 | NUR ---
rn in to assist pt up to the bathroom, pulled bathroom light when finished reports a large bowel movement flushed the toliet before RN vizualized, assisted back to the bed no other needs
--- NOTE | 2021-08-13 14:46 | NUR ---
MEDICATIONS DUE. THIS RN TO ROOM. STAND BY ASSIST UP TO RESTROOM. PT MANAGING LINES WELL, THIS RN TO ASSIST. PT HAS ADDTIONAL SMALL BOWEL MOVEMENT. DEPENDS CHANGED. PT PERFORMES SELF KRISTIN CARE. STAND BY ASSIST BACK TO BED. PT HAD A WHOLE 32 OUNCE BLOCK OF CHEESE AT BEDSIDED THAT SHE IS SNACKING ON. PT REPORTS 7/10 PAIN. PT CHEERFUL AND COOPERATIVE WITH CARES AT THIS TIME. PT WATCHIGN TIC-RAYO AND TELLING STORIES. MEDICATIONS GIVEN. PT DENIES ADDITIONAL REQUESTS OR COMPLAINTS. CALL LIGHT WITHIN REACH. BED RAILS UP.
--- NOTE | 2021-08-13 15:00 | NUR ---
Updated Christin from [facility], pt will more than likely dc tomorrow. He will let Peer know.
--- NOTE | 2021-08-13 15:10 | NUR ---
PT POST OP DAY TWO AFTER I&D OF ABDOMINAL WOUND. PT UP WITH STAND BY ASSIST TO RESTROOM THIS SHIFT, PT STEADY ON FEET. PT TOLERATING 60G CARB DIET WITH VERY LARGE INTAKE, MULTIPLE SNACKS FROM HOME. MONITORING BLOOD SUGARS WITH MEALS AND HS WITH SCHDEULED AND SLIDING SCALE INSULIN. WOUND VAC REMAINS IN PLACE AND WNL, EDGES WELL SEALED, GREEN LIGHT INDICATOR ON. SMALL AMOUNT OF SEROUS ANGUNIOUS DRAINAGE NOTED IN CANISTER. MINMAL ERYTHEMA NOTED AROUND WOUND. PTS MOOD LABIAL THROUGHOUT SHIFT, SWINGING IN VARIOUS DIRECTIONS. PRN PAIN MEDICATIONS GIVEN FOR 7-10/10 PAIN. PT ANTICIPATING RETURN TO SURGERY TOMORROW FOR REMOVAL OF WOUND VAC. MULTIPLE CASE WORKERS TO BEDSIDE THIS SHIFT. CH CATHETER REMAINS IN PLACE THIS SHIFT WITH 1 EPOSODE OF LIGHT PINK URINE THIS MORNING. PT ENCORUAGED TO REST AND NOT PULL ON CATHETER. CH QUANTITY SUFFICIENT. PT TO BE NPO AT MIDNIGHT. PT USES CALL LIGHT AND MAKES NEEDS KNOWN.
--- NOTE | 2021-08-13 16:39 | NUR ---
THIS RN TO ROOM TO CHECK ON PT. PT RESTING IN BED ON RIGHT SIDE WATCHING VIDEOS ON PHONE. PT REPORTS 7/10 PAIN THAT IS "NOT THAT BAD." DR HOLBROOK COMES TO BEDSIDE FOR ROUNDS AND PT BECOMES AGITATED AND COMPLAINS OF "REALLY REALLY BAD" PAIN. PT VERBALIZES UNDERSTANDING OF PLAN OF CARE. PT REQUESTS MELATONIN, ORDER ENTERED BY MD. MEDICATIONS GIVEN. PT REQUESTS "MORE SNACKS." SUGAR FREE SNACKS PROVIDED. PT COMPLAINTS OF "BLISTERS INSIDE MY NOSE." NO ADDITIONAL NEEDS AT THIS TIME. CALL LIGHT WITHIN REACH. BED RAILS UP. WOUND VAC REMAINS WNL WITH SUCTION AT 120MM/HG IN PLACE AND DRESSING WELL INTACT.
--- NOTE | 2021-08-13 17:56 | NUR ---
THIS RN TO ROOM TO CHECK ON PT. PT RESTING WITH EYES CLOSED, RESPIRATIONS EVEN AND UNLABORED. PT AWAKENS TO MOVEMENT IN THE ROOM. PT REPORTS / PAIN IN ABDOMEN CONTINUES. PT REQUESTS TO "BE LEFT ALONE UNTIL MY NIGHT TIME MEDICATIONS." VITAL SIGNS STABLE. PT AGREES THAT SHE WILL CALL IF SHE HAS ANY NEEDS. PT ALLOWED TO REST. CALL LIGHT WITHIN REACH. BED RAILS UP.
--- NOTE | 2021-08-13 19:23 | NUR ---
in bed eyes closed, no response, no resp distress, moves arms.
--- NOTE | 2021-08-13 23:12 | NUR ---
Pt very irritable mood. fidgetty, angry mood. semi coop with assessments. no IV site, low abd wound vac in place with ss drainage patent. dressing intact. cbg 199, declined 2 units ss humolog, received scheduled Semglee, Melatonin on requests for insomnia, Percocet for 10/10 abd pain. f/c patent. aware of NPO status after midnight. Walking in room,
--- NOTE | 2021-08-14 00:31 | NUR ---
FOOD AND FLUIDS REMOVED. PTS OWN FOOD PLACED IN LOWER FRIDGE, NOTIFIED. IRRITABLE MOOD, AWARE OF NPO STATUS, ORAL SWABS AT BEDSIDE. REQUESTS NOT TO BE BOTHER. SL PATENT, ON ROOM AIR, LOW ABD WOUND VAC [PATENT. F/C PATENT.
--- NOTE | 2021-08-14 01:38 | NUR ---
RESTING, EYSE CLOSED, TURNS QAND REPOSITIONS SELF IN BED.
--- NOTE | 2021-08-14 03:50 | NUR ---
RESTING, NO DISTRESS, ONROOM AIR, WOUND VAC INPLACE
--- NOTE | 2021-08-14 05:15 | NUR ---
PT AWAKES EASILY, ON ROOM AIR, COOPW ITH ASSESSMENT AND VITALS, C/O BACK PAIN 8/10 MEDICATED WITH PERCOCET AND THYROID MED GIVEN WITH SIPS OF FLUIDS, LOW ABD WOUND VAC INPLACE, F/C PATENT, DRAINING QS YELLOW. SCANT AMOUNT OF REDDISH VAGINAL DISCHARGE. FIDGETTY WHEN AWAKE, REDIRECTABLE. PLEASANT AT THIS TIME. WAS VERY IRRITABLE AN DANGRY AT BEGINIGN OF SHIFT.
--- NOTE | 2021-08-14 05:32 | NUR ---
PT ON ROOM AIR, LABILE MOOD, RESTLESS FIDGETTY, WAS ANGRY AND IRRITABLE AT BEGINIGN OF SHIFT. CALMER NOW. CBG 199, RECEIVED SEMGLEE INSULIN SCHEDULED, DECLINES SS. LOW AND INCISION WITH WOUND VAC INPLACE, PATGENT. F/C PATENT, DRAINING QS. BRUISED AREAS UNDER PANNUS AND SCABBED OVER AREAS ON ARMS HEALING. HAS BEEN MEDICATED TWICE WITH PERCOCET PER ABD PAIN, EFFECTIVE. INDEPENDENT IN ROOM. NPO SINCE MIDNIGHT, TOOK AM MEDS WITH SIPS OF FLUIDS. SL PATENT. HEXADINE WIPED DOWN COMPLETED. PT IS TO HAVE WOUND VAC DRESSING REPLACED TODAY. PT AWARE. CONT TO OBSERVE FOR S/SX DRUG WITHDRAWAL
--- NOTE | 2021-08-14 06:20 | NUR ---
Pt on room air, lungs dim at bases but clear. Confused but redirectable, scabbed areas over forehead Dermabond intact. abrasion on chin healing, multiple bruising and scabbed areas over arms and legs healing. has chronic f/c draining qs, IVF infusing w/o problems. Impulsive, redirectable, bed and chair alerm in place. call light and fluids at bedside
--- NOTE | 2021-08-14 07:29 | NUR ---
Patient resting at this time, shift report completed outside of room.
--- NOTE | 2021-08-14 09:47 | NUR ---
patient left for surgery. IV was flushed prior and fluids started.
--- NOTE | 2021-08-14 11:33 | NUR ---
08/14/21 1133 Sheets,Rakel 1106 PT ARRIVED TO PACU ON 6L VIA MASK, PT WAKES AND IS REORIENTED TO PACU. VSS. PT REPORTS PAIN 6-7/10 PAIN.
--- NOTE | 2021-08-14 11:54 | NUR ---
Received call from PACU, patient should be back to the floor in about 10 minutes
--- NOTE | 2021-08-14 12:00 | NUR ---
patient returned from PACU, report recieved at bedside, Vital signs stable, patient requesting food and antiemetic IV, Blood glucose 189,
--- NOTE | 2021-08-14 13:48 | NUR ---
patient sitting in bed, no acute distress noted, does report pain of 6, which appears to be where her pain sit at, she has some nausea noted as well. Waiting for MD to place orders
--- NOTE | 2021-08-14 15:26 | NUR ---
PATIENT FINISHED IN SHOWER, WAS ABLE TO SHOWER UNASSISTED. UPON FINISHING SHOWER, PATIENT BECAME AGITATED BEGAN COMPLAINING OF INCREASED PAIN, STATING THE PAIN WAS RADIATING TO HER BACK WELL. CHAPIS GODDARD NOTIFIED AND INTO ROOM WITH MEDS. LINENS CHANGED AND PATIENTS [employer] PLASTIC SURGERY ASSISTANT IS NOW IN ROOM WELL.
--- NOTE | 2021-08-14 17:37 | NUR ---
Patient sitting up in the bed, having dinner, a little anxious/fidgety, heart rate slightly increased related to her anxiety. VS stable otherwise. Pain 7/ Recently given pain medication. Surgical site clean tono intact at this time.
--- NOTE | 2021-08-14 18:03 | NUR ---
patient's anxiety has improved, she is laying on her right side watchin TV with the lights out. Pain 710
--- NOTE | 2021-08-14 19:45 | NUR ---
CALL LIGHT ON, PT REQEUSTING SOMETHING FOR PAIN, RN TOLD, IN TO GET VITALS AND ACCUCHECK, RN IN TP CHECK ON PT, ICE WATER AND WARM BLANKET PROVIDED
--- NOTE | 2021-08-14 20:02 | NUR ---
CBG 188, RECEIVED 2 UNITS SS INSULIN AND [id number] UNITS SCHEDULED INSULIN. C/O N/V TOOK ZOFRAN SL. ANXIOUS, ANGRY IRRITABLE, LUCIO, CRYING. REASSURED, MORE COOP. LOW ABD DRESSING cdi, COOP WTIH ASSESSMENT
--- NOTE | 2021-08-14 21:00 | NUR ---
in to provide pt with warm blanket
--- NOTE | 2021-08-14 22:15 | NUR ---
pt sitting in bed, room air, upset while talking to someone via phone. crackers given and fresh water. f/c patent. low abd dressing intact
--- NOTE | 2021-08-14 22:31 | NUR ---
pt restless and fidgetty, medicated with percocet and Melatonin po. pt eating foods her family brought in. reassured, not receptive to information
--- NOTE | 2021-08-15 02:33 | NUR ---
RESTING, NO DISTRESS, TURNS AND REPOSITIONS SELF
--- NOTE | 2021-08-15 03:46 | NUR ---
Resting, laying on her R side, no distress, f/c patent. calling light at hands reach
--- NOTE | 2021-08-15 06:03 | NUR ---
pt has slept most of this shift, medicated with percocetx1 and motrin x1, per low abd pain. low abd opticot dressing with small amount of drainage. had bms, f/c patent, draining cloudy urine with sediment, normal smell. medicated with Melatonin per c/o insomnia, effective and zofran ODT per c/o feeling nauseated. Independent in room. SL patent. coop with assessments. was very irritable, labile mood, fidgetty, angry at begining of shift, much calmer at thist sherman. Pt looking forward to being DC today as she has Urologists appointment in [place].
--- NOTE | 2021-08-15 07:20 | NUR ---
Shift report recieved outside the room, allowed patient to continue to rest.
--- NOTE | 2021-08-15 07:43 | NUR ---
Assessment completed, AM medications being given. Listen to her regarding her baby and life situations, along with concerns of her discharge and getting home. Her anxiety was increased upon entering room, however after just letting her talk/vent/be teary eyed, by the time I exited her room approximately 30 minutes later : Time in room [id number], she had became less anxious, and was no longer teary eyed. She ate 100% of her breakfast, took all her medications, and requested more food.
--- NOTE | 2021-08-15 08:05 | NUR ---
IV access assess: blood return present and flushes easily, no redness/pain/swelling noted. Nicotine patch removed from left arm, and new one placed on her right arm.
--- NOTE | 2021-08-15 08:05 | NUR ---
Room straighten, warm blanket given, new depends given to the patient. Ice water refilled, and more eggs ordered at the patient's request
--- NOTE | 2021-08-15 09:05 | NUR ---
Patient's pain has improved from a 9/10 to 7/10 now, she is less teary eyed, and is now laying in bed watching her favorite TV show.
[2021-08-15] MEDS ORDERED: SULFAMETHOXAZO1 EAC1 PO (10:37)
[2021-08-15] MEDS ORDERED: CYCLOBENZAPRINE5 MG PO (10:37)
[2021-08-15] MEDS ORDERED: VENTOLIN HFA18 GM INH (10:37)
[2021-08-15] MEDS ORDERED: FENOFIBRATE120 MG PO (10:37)
[2021-08-15] MEDS ORDERED: METRONIDAZOLE250 MG PO (10:37)
[2021-08-15] MEDS ORDERED: IBUPROFEN600 MG PO (10:38)
[2021-08-15] MEDS ORDERED: GABAPENTIN300 MG PO (10:38)
[2021-08-15] MEDS ORDERED: OXYCODON-ACETA1 EAC2 PO (10:38)
[2021-08-15] MEDS ORDERED: LO-DOSE ASPIRIN81 M1 PO (10:38)
[2021-08-15] MEDS ORDERED: ACETAMINOPHEN500 MG PO (10:38)
[2021-08-15] MEDS ORDERED: QUETIAPINE FUM100 MG PO (10:38)
[2021-08-15] MEDS ORDERED: DOCUSATE SODIU100 MG PO (10:39)
[2021-08-15] MEDS ORDERED: CLEARLAX119 GM PO (10:39)
[2021-08-15] MEDS ORDERED: FLUTICASONE PRO16 GM NAS (10:39)
[2021-08-15] MEDS ORDERED: HYDROXYZINE HCL25 MG PO (10:39)
[2021-08-15] MEDS ORDERED: BUSPIRONE HCL10 MG PO (10:39)
[2021-08-15] MEDS ORDERED: PULMICORT FLEX90 MCG INH (10:39)
[2021-08-15] MEDS ORDERED: OMEPRAZOLE20 MG PO (10:40)
[2021-08-15] MEDS ORDERED: LANTUS SOL100 UNIT/1 SUB-Q (10:40)
[2021-08-15] MEDS ORDERED: CREON DR 12,001 EACH PO (10:40)
[2021-08-15] MEDS ORDERED: METFORMIN HCL1000 MG PO (10:40)
[2021-08-15] MEDS ORDERED: EUTHYROX100 MCG PO (10:41)
[2021-08-15] MEDS ORDERED: NYSTATIN15 G2 TOP (10:41)
[2021-08-15] MEDS ORDERED: HUMALOG100 UNITS/ SUB-Q (10:41)
[2021-08-15] MEDS ORDERED: PRENATAL TABLE1 EAC3 PO (10:42)
--- NOTE | 2021-08-15 11:47 | NUR ---
Discharge instructions discussed, discharge package given to the patient. Pharmacy discussed all her medications with her. Percocet prescription handed to the patient. IV access removed. Wound care instruction reinterated and kinsey care
--- NOTE | 2021-08-26 12:26 | OR ---
[facility] [address], [place] [address] Signed DATE OF OPERATION: 08/14/2021 SURGEON: Chris Sanders MD PREOPERATIVE DIAGNOSES: 1. Recent wound infection requiring irrigation, drainage and debridement with application of wound VAC (August 11, 2021). 2. Multiple medical problems including diabetes mellitus, poorly controlled, smoking and polysubstance abuse including methamphetamine. POSTOPERATIVE DIAGNOSES: 1. Recent wound infection requiring irrigation, drainage and debridement with application of wound VAC (August 11, 2021). 2. Multiple medical problems including diabetes mellitus, poorly controlled, smoking and polysubstance abuse including methamphetamine. 3. Excellent granulation bed of the entire wound. PROCEDURES: 1. Exam under anesthesia and removal of wound VAC dressing sponge. 2. Definitive wound closure. ANESTHESIA: Local with monitored anesthesia care; Genaro Ch CRNA and local 40 mL of 0.25% Marcaine with epinephrine. INDICATION: This 30-year-old white woman presents to the emergency room on August 11, 2021 with a wound infection. She had undergone emergency for preeclampsia in July at [facility] in [place], [place]. She suffered a bladder laceration during the course of the , was subsequently evaluated and repaired by Dr. Nikhil Guidry at [facility] and a Logan catheter was placed. The confluence of her low midline incision and Pfannenstiel incision had evidence of significant infection. Multiple wound clips were completely distracted from the wound and she underwent operative debridement under a spinal anesthetic with sedation on August 11, 2021. Debridement to viable tissue was undertaken. There was no evidence of fascial dehiscence. Wound VAC sponge was placed. The patient has considerable competing medical problems and substance abuse issues including methamphetamine use. She continues to smoke and she is diabetic, generally poorly controlled. Electronically Signed By: CHRIS SANDERS MD 08/26/21 1226 PATIENT NAME: SHAMEKA LEE OPERATIVE REPORT DATE OF : 88 REPORT #: [id number] PHYSICIAN: CHRIS SANDERS MD PCP: ENIO SALCIDO MD REPORT IS CONFIDENTIAL AND NOT TO BE RELEASED WITHOUT AUTHORIZATION [facility] [address], [place] [address] Signed A wound care plan was outlined for her to include use of the wound VAC with episodic changes and ultimately delayed closure. The patient is day four with her wound VAC and plans were set up for outpatient management of this locally. However, the patient has changed her mind and is now compelled to return to [facility] to be closer to her infant son who is in the intensive care unit there as well as to follow up with Dr. Guidry, her urologist on August 18 presumably for Logan catheter removal. The patient does not intend to remain local for her wound care, though she may return and is very ambivalent about all of this. It is not feasible for her to be discharged out of the area with a wound VAC device as she is unwilling and unable to help coordinate the plan for wound care in the [facility]. On that basis, I have recommended that the wound VAC device be removed and other wound care approaches be undertaken; this might perhaps include simple gauze dressing changes. She would be completely intolerant of an initial wound VAC dressing change without significant sedation and on that basis she returns to the operating room at this time for exam under anesthesia, discontinuance of the wound VAC device and other indicated procedures possible to include wound packing. She understands the risks of bleeding, infection, and so forth and wished to proceed. FINDINGS: There was no evidence of cellulitis or active infection, purulent material or necrotic tissue. It was impressive indeed the extent to which granulation incorporated all of the wound that had been debrided. On that basis, secondary closure was accomplished. Mindful of her social and logistical issues closure was undertaken with PDS suture which should provide some sturdy long-term support, but will not be reliant upon removal by any provider necessarily given her unlikely compliance in that regard. DESCRIPTION OF PROCEDURE: The patient was brought to the operating room and given intravenous sedation with propofol infusional anesthesia. She has been on Flagyl and Bactrim antibiotics orally administered. After satisfactory sedation, the adhesive dressing was removed and subsequently the black foam from the depths of the wound. It was quite impressive the degree to which granulation tissue had already formed throughout the wound. Rather than persist and wound care dressing changes as that she would unlikely be compliant with a definitive wound closure approach was deemed most beneficial under her circumstances. The wound was closed in full-thickness with interrupted 0 PDS suture in a horizontal mattress configuration. Additional interrupted 2-0 PDS was used to more fully approximate the skin. 40 mL of 0.25% Marcaine with epinephrine was injected locally. Acticoat dressing was applied. She was allowed to emerge from sedation and taken to the recovery room in good condition. Electronically Signed By: CHRIS SANDERS MD 08/26/21 1226 PATIENT NAME: SHAMEKA LEE OPERATIVE REPORT DATE OF : 88 REPORT #: [id number] PHYSICIAN: CHRIS SANDERS MD PCP: ENIO SALCIDO MD REPORT IS CONFIDENTIAL AND NOT TO BE RELEASED WITHOUT AUTHORIZATION [facility] [address] [facility] [place], [place] [address] Signed MD CALVIN Vasquez/MODL /[id number] cc: Dr. Nikhil Guidry [place], [place], [address] Wendi Holbrook MD Copies: WENDI HOLBROOK MD ~ Electronically Signed By: CHRIS SANDERS MD 08/26/21 1226 PATIENT NAME: SHAMEKA LEE OPERATIVE REPORT DATE OF : 88 REPORT #: [id number] PHYSICIAN: CHRIS SANDERS MD PCP: ENIO SALCIDO MD REPORT IS CONFIDENTIAL AND NOT TO BE RELEASED WITHOUT AUTHORIZATION
--- NOTE | 2021-08-26 12:26 | DS ---
[facility] [address], [place] [address] Signed ADMISSION DATE: 08/11/2021 DISCHARGE DATE: 08/15/2021 REASON FOR ADMISSION: This 30-year-old white woman presented to the emergency room was evaluated by Dr. Chris Panchal for complaints of lower abdominal pain in the suprapubic area. She was found to have an infection in a recent incision in that area. Notably, she underwent on July 23, 2021, at [facility] in [place], [place], where a concurrent bladder injury was sustained. She had been transferred from [facility] in [place] with preeclampsia, diabetes out of control, and other medical issues. She additionally has longstanding methamphetamine abuse. Her operation for and its concurrent complication were remedied by bladder repair on July [address] Guidry at [facility] on July 29, 2021. An indwelling Logan catheter was placed. A followup with Dr. Guidry was anticipated on August 18. Consultation was undertaken after CT scan was performed showing the infected wound to have air bubbles near the fascial edge and so on. She is admitted for further evaluation and care. PERTINENT PHYSICAL EXAMINATION: GENERAL: Showed an alert, oriented, nontoxic-appearing white woman. VITAL SIGNS: Height 5 feet 0 inches, 73 kg in weight. NECK: Trachea is midline. CHEST: Clear. HEART: Regular without murmur. ABDOMEN: Obese. There is a long midline extending from the suprapubic area to the umbilicus, a transverse Pfannenstiel incision. Multiple clips were distracted from the skin edges and obvious infection of the wound was noted. There is local erythema and tenderness. EXTREMITIES: There is no clubbing, cyanosis, or edema of extremities. GENITOURINARY: Logan catheter was in place, draining clear urine. HOSPITAL COURSE: Given the findings quite obviously drainage of the and debridement of the wound was required. The emergency room physician had called the urologist office in [place], who was happy to see her if she could make her way to [place], which she certainly could not. On August 11, 2021, she underwent debridement of the wound and she was found to have some necrotic fat, purulent material, and so on. Gram stain ultimately showed gram-positive cocci and a few gram-negative rods. The culture is still pending at this date. She was Electronically Signed By: CHRIS SANDERS MD 08/26/21 1226 PATIENT NAME: SHAMEKA LEE DISCHARGE SUMMARY DATE OF : 88 REPORT #: [id number] PHYSICIAN: CHRIS SANDERS MD PCP: ENIO SALCIDO MD REPORT IS CONFIDENTIAL AND NOT TO BE RELEASED WITHOUT AUTHORIZATION [address] [address] Signed empirically treated initially with meropenem and converted ultimately to Bactrim and Flagyl. A wound VAC device was placed. The patient has other medical issues including pancreatic insufficiency related to severe pancreatitis from the past, which had required the pancreatic debridement. Her diabetes is likely related to that intervention as well. Consultation was undertaken with the hospitalist, Dr. Holbrook, who assisted in management of her medical issues. She was treated appropriately with insulin and pancreatic enzyme replacement as usual. She did have a fair amount of perioperative pain and anxiety and underlying other psychiatric manifestations, was managed well with medication and other interventions. A plan was outlined for change of her wound VAC on acute 3- to 4-day basis allowing for local wound care and ultimately closure of the wound. The patient did not want to do that and rather wanted to go back to [place] to live. Notably, her premature is in the Intensive Care Unit in [facility]. She does have an appointment with her urologist on August 18 in [place] as well. There was essentially no possible way that wound VAC dressing change could be undertaken at the bedside given her low pained threshold and so forth, and she returned to the operating room under IV sedation on August 14, 2021 to change the wound VAC and likely convert to a gauze dressing change approach as she would not be available for wound VAC changes locally. Somewhat to my surprise, she had impressive granulation tissue of all the surfaces of the wound. On that basis, secondary closure was undertaken with interrupted PDS suture. It is intended that she have sutures removed no sooner than two weeks, but if she should fall out of availability for medical care (quite likely given her chaotic and nomadic homelessness), the sutures will in due course resorb and flake off. By the time of discharge, the wound continues to heal well. There is no sign of infection. She is maintained on Bactrim and Flagyl antibiotic, which she will for 10 additional days. She is planning to relocate to [place], though I am available to her should the need arise. She is instructed to call our office on Tuesday to arrange an appointment for four weeks or so if she so desires and is available. DISCHARGE MEDICATIONS: Include: 1. Bactrim DS one p.o. b.i.d., #20. 2. Flagyl 250 mg p.o. t.i.d., #30. 3. Ibuprofen 600 mg p.o. q.6 hours as needed for pain, #60. Electronically Signed By: CHRIS SANDERS MD 08/26/21 9648 PATIENT NAME: SHAMEKA LEE DISCHARGE SUMMARY DATE OF : 88 REPORT #: [id number] PHYSICIAN: CHRIS SANDERS MD PCP: ENIO SALCIDO MD REPORT IS CONFIDENTIAL AND NOT TO BE RELEASED WITHOUT AUTHORIZATION [facility] [address], [place] [address] Signed 4. Percocet 7.5/325 one to two p.o. q.6 hours as needed for pain #20, no refill. 5. Alternatively, Tylenol plain 1000 mg p.o. q.6 hours as needed for pain #60. 6. Humalog insulin 100 per unit 10 units subcutaneously t.i.d. with meals. 7. She will continue her lispro, Humalog insulin as described. 8. We will have refills for albuterol 2 puffs q.4 hours as needed for shortness of breath. 9. Flexeril 5 mg p.o. q.6 hours as needed for pain. 10. Fenofibrate 120 mg p.o. everyday for hypercholesterolemia. 11. Aspirin enteric-coated 81 mg two tablets p.o. daily. 12. Gabapentin 300 mg one cap p.o. t.i.d. 13. Quetiapine 100 mg p.o. t.i.d. 14. Buspirone 10 mg p.o. t.i.d. 15. Hydroxyzine 25 mg p.o. t.i.d. 16. Budesonide inhaler two puffs b.i.d. 17. DSS 100 mg p.o. b.i.d. 18. Fluticasone 50 mcg spray daily each nostril. 19. MiraLAX 17 g p.o. daily. 20. Nthmxg-rfrpkaqn-gipclkw (Creon 12,000 units) two capsules p.o. t.i.d. with meals. 21. Metformin 1000 mg p.o. b.i.d. with meals. 22. Omeprazole 20 mg p.o. b.i.d. 23. Insulin glargine Lantus 100 units/mL 22 units subcutaneously daily. 24. Synthroid 100 mcg p.o. daily. 25. Nystatin powder applied as needed topically. 26. vitamin 1 p.o. daily. DISCHARGE DIAGNOSES: 1. Wound infection, status post and subsequent bladder repair at [place], [place], Dr. Guidry, urology. 2. Diabetes mellitus and pancreatic insufficiency, distant history of severe pancreatitis requiring debridement. 3. Methamphetamine abuse. 4. state less than two months. 5. History of pre-eclampsia. 6. Psychiatric illness. 7. Hypothyroidism. 8. Constipation. 9. Reactive airways disease. Chris Sanders MD Electronically Signed By: CHRIS SANDERS MD 08/26/21 1226 PATIENT NAME: SHAMEKA LEE DISCHARGE SUMMARY DATE OF : [birth year] REPORT #: [id number] PHYSICIAN: CHRIS SANDERS MD PCP: ENIO SALCIDO MD REPORT IS CONFIDENTIAL AND NOT TO BE RELEASED WITHOUT AUTHORIZATION [address] [address] Signed /MODL /[id number] cc: MD Enio Wisdom DO Dr. John Elliott Dr. Miller, Urology [facility], [place] Copies: WENDI HOLBROOK MD,ENIO Contreras DO ~ Electronically Signed By: CHRIS SANDERS MD 08/26/21 1226 PATIENT NAME: SHAMEKA LEE DISCHARGE SUMMARY DATE OF : 88 REPORT #: [id number] PHYSICIAN: CHRIS SANDERS MD PCP: ENIO SALCIDO MD REPORT IS CONFIDENTIAL AND NOT TO BE RELEASED WITHOUT AUTHORIZATION
[2022-02-04] MEDS ORDERED: CHLORHEXIDINE473 ML MM (15:53)
[2022-02-04] MEDS ORDERED: QUETIAPINE FUM200 MG PO (15:54)
[2022-02-04] MEDS ORDERED: LANTUS SOL100 UNIT/1 SUB-Q (15:57)
[2022-02-04] MEDS ORDERED: MAGNESIUM OXID400 M1 PO (15:57)
[2022-02-04] MEDS ORDERED: HYDROXYZINE PA100 MG PO (15:58)
[2022-02-04] MEDS ORDERED: CREON DR 24,001 EACH PO (16:00)
[2022-02-04] MEDS ORDERED: BUSPIRONE HCL15 MG PO (16:03)
[2022-02-04] MEDS ORDERED: CYCLOBENZAPRINE5 MG PO (16:05)
[2022-02-04] MEDS ORDERED: PIOGLITAZONE HC30 MG PO (16:07)
[2022-02-04] MEDS ORDERED: METFORMIN HCL500 M1 PO (16:07)
[2022-02-04] MEDS ORDERED: ROSUVASTATIN CA20 MG PO (17:02)
[2022-02-04] MEDS ORDERED: HUMALOG100 UNIT/2 SUB-Q (18:14)
[2022-02-04] MEDS ORDERED: PRENATAL TABLE1 EAC3 PO (18:16)
[2022-02-04] MEDS ORDERED: SEROQUEL100 MG PO (18:17)
[2022-02-05] MEDS ORDERED: IBUPROFEN600 MG PO (08:40)
== END 2021-08-15 12:00 | disposition home or self-care (01) | DRG 769 ==
LOC: ED 09:38 → MS 14:49
PROVIDERS: ADMIT Surgery; ATTEND Surgery
PROC: 0JB80ZZ Excision of Abdomen Subcutaneous Tissue and Fascia, Open Approach (ICD-10-PCS; principal; 2021-08-11 17:30)
PROC: 0JQ80ZZ Repair Abdomen Subcutaneous Tissue and Fascia, Open Approach (ICD-10-PCS; 2021-08-14 09:00)
DX: O86.01 Infection of obstetric surgical wound, superficial incisional site (principal); O24.13 Pre-existing type 2 diabetes mellitus, in the puerperium; Z20.822 Contact with and (suspected) exposure to COVID-19; E03.9 Hypothyroidism, unspecified; E78.5 Hyperlipidemia, unspecified; O99.285 Endocrine, nutritional and metabolic diseases complicating the puerperium; G89.4 Chronic pain syndrome; J45.909 Unspecified asthma, uncomplicated; O99.893 Other specified diseases and conditions complicating puerperium; O99.345 Other mental disorders complicating the puerperium; F41.1 Generalized anxiety disorder; F31.9 Bipolar disorder, unspecified; O99.335 Smoking (tobacco) complicating the puerperium; K86.81 Exocrine pancreatic insufficiency; F17.210 Nicotine dependence, cigarettes, uncomplicated; Z90.49 Acquired absence of other specified parts of digestive tract; Z98.890 Other specified postprocedural states; Z88.8 Allergy status to other drugs, medicaments and biological substances; Z91.09 Other allergy status, other than to drugs and biological substances; Z79.899 Other long term (current) drug therapy; Z79.82 Long term (current) use of aspirin
CPT/HCPCS: 00140; 00800; 36415; 74177; 80053; 81001; 82010; 82803; 83036; 83605; 85025; 87040; 87070; 87075; 87076; 87077; 87205; 96374; 96375; 96376; 99284-25; A9270; C9803; J1170; J1644; J1815; J1885; J2001; J2185; J2250; J2274; J2405; J2550; J2704; J3010; J7030; J7121; Q0177; Q9967; U0003

== ENCOUNTER 2021-12-03 17:14 | Emergency (ER) | payer MEDICARE, OTHER ==
[~2021-12-03] VITALS: Ht 152.4 cm; Wt 78.6 kg
[~2021-12-03 17:14] MED LIST changes: +ACETAMINOPHEN500 MG PO; +CLEARLAX119 GM PO; +CREON DR 12,001 EACH PO; +DOCUSATE SODIU100 MG PO; +GABAPENTIN300 MG PO; +HUMALOG100 UNIT/2; +HUMALOG100 UNITS/ SUB-Q; +HYDROXYZINE HCL25 MG PO; +IBUPROFEN600 MG PO; +LABETALOL HCL200 MG; +METFORMIN HCL1000 MG PO; +METRONIDAZOLE250 MG PO; +NYSTATIN15 G2 TOP; +OXYCODON-ACETA1 EAC2 PO; +SULFAMETHOXAZO1 EAC1 PO
[2021-12-03] MEDS ORDERED: VRAYLAR6 MG PO (17:51)
== END 2021-12-03 20:26 | disposition home or self-care (01) ==
LOC: ED 17:14
DX: E11.65 Type 2 diabetes mellitus with hyperglycemia (principal); Z20.822 Contact with and (suspected) exposure to COVID-19; E11.9 Type 2 diabetes mellitus without complications; E78.5 Hyperlipidemia, unspecified; J45.909 Unspecified asthma, uncomplicated; F17.200 Nicotine dependence, unspecified, uncomplicated; Z88.8 Allergy status to other drugs, medicaments and biological substances; Z91.048 Other nonmedicinal substance allergy status; Z79.899 Other long term (current) drug therapy; Z79.4 Long term (current) use of insulin; Z79.82 Long term (current) use of aspirin
CPT/HCPCS: 36415; 71045; 80053; 81001; 82010; 82803; 84703; 85025; 87502; 96361; 96374; 96375; 99285-25; C9803; J1815; J2405; J7030; J7121; U0003

== ENCOUNTER 2021-12-26 12:03 | Emergency (ER) | payer MEDICARE, OTHER ==
[~2021-12-26] VITALS: Ht 165.1 cm; Wt 80.3 kg
[~2021-12-26 12:03] MED LIST changes: +VRAYLAR6 MG PO
== END 2021-12-26 16:35 | disposition home or self-care (01) ==
LOC: ED 12:03
DX: E11.65 Type 2 diabetes mellitus with hyperglycemia (principal); E83.42 Hypomagnesemia; E78.5 Hyperlipidemia, unspecified; J45.909 Unspecified asthma, uncomplicated; F17.200 Nicotine dependence, unspecified, uncomplicated; Z91.048 Other nonmedicinal substance allergy status; Z88.8 Allergy status to other drugs, medicaments and biological substances; Z79.899 Other long term (current) drug therapy; Z79.82 Long term (current) use of aspirin; Z79.4 Long term (current) use of insulin
CPT/HCPCS: 36415; 80053; 81001; 83690; 83735; 84703; 85025; 96361; 96365; 96375; 99284-25; J1815; J2405; J3475; J7030

== ENCOUNTER 2022-01-11 20:35 | Emergency (ER) | payer MEDICARE, OTHER ==
[~2022-01-11] VITALS: Ht 165.1 cm; Wt 81.6 kg
[2022-01-12] MEDS ORDERED: CEFDINIR300 MG PO (00:33)
== END 2022-01-12 01:09 | disposition home or self-care (01) ==
LOC: ED 20:35
DX: N39.0 Urinary tract infection, site not specified (principal); E10.65 Type 1 diabetes mellitus with hyperglycemia; J45.909 Unspecified asthma, uncomplicated; E78.5 Hyperlipidemia, unspecified; F17.200 Nicotine dependence, unspecified, uncomplicated; Z88.8 Allergy status to other drugs, medicaments and biological substances; Z91.09 Other allergy status, other than to drugs and biological substances; Z79.899 Other long term (current) drug therapy; Z79.4 Long term (current) use of insulin; Z20.822 Contact with and (suspected) exposure to COVID-19
CPT/HCPCS: 81001; 82803; 85025; 87502; 96374; 96375; 99284-25; J2405; J7030; U0003

== ENCOUNTER 2022-02-02 14:23 | Emergency (ER) | payer MEDICARE, OTHER ==
[~2022-02-02] VITALS: Ht 165.1 cm; Wt 81.6 kg
[~2022-02-02 14:23] MED LIST changes: +CEFDINIR300 MG PO
[2022-02-02] MEDS ORDERED: ONDANSETRON ODT8 MG PO (19:30)
[2022-02-02] MEDS ORDERED: PERCOCET 7.5-31 EACH PO (19:30)
[2022-02-02] MEDS ORDERED: IBU600 MG PO (19:30)
[2022-02-04] MEDS ORDERED: CHLORHEXIDINE473 ML MM (15:53)
[2022-02-04] MEDS ORDERED: QUETIAPINE FUM200 MG PO (15:54)
[2022-02-04] MEDS ORDERED: LANTUS SOL100 UNIT/1 SUB-Q (15:57)
[2022-02-04] MEDS ORDERED: MAGNESIUM OXID400 M1 PO (15:57)
[2022-02-04] MEDS ORDERED: HYDROXYZINE PA100 MG PO (15:58)
[2022-02-04] MEDS ORDERED: CREON DR 24,001 EACH PO (16:00)
[2022-02-04] MEDS ORDERED: BUSPIRONE HCL15 MG PO (16:03)
[2022-02-04] MEDS ORDERED: CYCLOBENZAPRINE5 MG PO (16:05)
[2022-02-04] MEDS ORDERED: PIOGLITAZONE HC30 MG PO (16:07)
[2022-02-04] MEDS ORDERED: METFORMIN HCL500 M1 PO (16:07)
[2022-02-04] MEDS ORDERED: ROSUVASTATIN CA20 MG PO (17:02)
[2022-02-04] MEDS ORDERED: HUMALOG100 UNIT/2 SUB-Q (18:14)
[2022-02-04] MEDS ORDERED: PRENATAL TABLE1 EAC3 PO (18:16)
[2022-02-04] MEDS ORDERED: SEROQUEL100 MG PO (18:17)
[2022-02-05] MEDS ORDERED: IBUPROFEN600 MG PO (08:40)
== END 2022-02-02 19:51 | disposition home or self-care (01) ==
LOC: ED 14:23
DX: N83.202 Unspecified ovarian cyst, left side (principal); E11.9 Type 2 diabetes mellitus without complications; E78.5 Hyperlipidemia, unspecified; J45.909 Unspecified asthma, uncomplicated; F17.200 Nicotine dependence, unspecified, uncomplicated; Z88.8 Allergy status to other drugs, medicaments and biological substances; Z91.048 Other nonmedicinal substance allergy status; Z79.899 Other long term (current) drug therapy; Z79.4 Long term (current) use of insulin
CPT/HCPCS: 36415; 74177; 80053; 81001; 83690; 84703; 85025; 96361; 96375; 96376; 99284-25; A9270; J1170; J1815; J2405; J7030; Q9967

== ENCOUNTER 2022-02-04 08:49 | Inpatient (IN) | payer MEDICARE, OTHER ==
[~2022-02-04] VITALS: Ht 165.1 cm; Wt 81.0 kg
[~2022-02-04 08:49] MED LIST changes: +IBU600 MG PO; +PERCOCET 7.5-31 EACH PO
--- NOTE | 2022-02-04 13:00 | NUR ---
Patient admitted to CCU at 1300. Patient arrived via ED stretcher and was able to ambulate from stretcher to CCU bed without difficulty. Patient was mildy weak, but steady on her feet. Patient is A&O and able to communicate needs. Admission assessment completed and 2nd unit of blood started along with fluids. Contacted Dr. Peres regarding patient's request for pain meds for her abdominal pain. Patient currently visiting with [facility] support personnel. Denies needs at this time. Personal items and call light within reach.
--- NOTE | 2022-02-04 14:07 | NUR ---
THIS RN IN TO GIVE PATIENT INSULIN 3 UNITS FOR BLOOD SUGAR OF 210. PATIENT DENIED MEDICATION. PATIENT IS WORRIED SHE WILL DROP LOW WITH INSULIN. PATIENT STATES HER BLOOD SUGARS ARE NORMALLY 300-400'S. PATIENT HAS A VISITOR AT THE [facility]. PATIENT ASKED IF HER RN WAS ABLE TO GET AHOLD OF THE DOCTOR ABOUT PRN PAIN MEDICATIONS. UPDATED PATIENT THAT I WILL REVIEW THE CHART FOR ANY NEW ORDERS. CALL LIGHT IN REACH. WILL CONTINUE TO CLOSELY MONITOR.
--- NOTE | 2022-02-04 14:35 | NUR ---
Patient has stated that she does not want insulin to be given unless her blood sugar is above 300. Patient states "it's not good for me to take it unless I'm above 3-400." Umm educated patient she could refuse the medication, but to let us know when she would be willing to accept treatment. Patient does have an attached glucometer she uses to monitor her sugars to which she states she "checks often." Dr. Peres notified of patient's refusal and conditions. PRN pain medications also ordered for abdominal pain.
--- NOTE | 2022-02-04 14:42 | NUR ---
Dr. Bateman at bedside for sugical consent. Patient to have scope completed tomorrow. Until then, patient may have sips/chips lightly. Consent signed and ready. 2nd unit of blood completed.
[2022-02-04] MEDS ORDERED: IBUPROFEN600 MG PO (15:48)
[2022-02-04] MEDS ORDERED: AMOXICILLIN500 MG PO (15:50)
[2022-02-04] MEDS ORDERED: CHLORHEXIDINE473 ML MM ×2 (15:53)
[2022-02-04] MEDS ORDERED: QUETIAPINE FUM200 MG PO ×2 (15:54)
[2022-02-04] MEDS ORDERED: LANTUS SOL100 UNIT/1 SUB-Q ×2 (15:57)
[2022-02-04] MEDS ORDERED: MAGNESIUM OXID400 M1 PO ×2 (15:57)
[2022-02-04] MEDS ORDERED: HYDROXYZINE PA100 MG PO ×2 (15:58)
[2022-02-04] MEDS ORDERED: PRAZOSIN HCL5 MG PO (15:59)
[2022-02-04] MEDS ORDERED: NALTREXONE HCL50 MG PO (15:59)
[2022-02-04] MEDS ORDERED: CREON DR 24,001 EACH PO ×2 (16:00)
[2022-02-04] MEDS ORDERED: BUSPIRONE HCL15 MG PO ×2 (16:03)
[2022-02-04] MEDS ORDERED: CYCLOBENZAPRINE5 MG PO ×2 (16:05)
[2022-02-04] MEDS ORDERED: METFORMIN HCL500 M1 PO ×2 (16:07)
[2022-02-04] MEDS ORDERED: PIOGLITAZONE HC30 MG PO ×2 (16:07)
--- NOTE | 2022-02-04 16:13 | NUR ---
PATIENT RESTING IN BED. PATIENT HAS ASKED FOR ADDITIONAL PAIN MEDICATION AND NAUSEA MEDS. PRN MEDS GIVEN. PATIENT OTHERWISE, LAYING IN BED WATCHING TV. SECOND UNIT OF BLOOD COMPLETED AND LAB AT BEDSIDE FOR H&H REDRAW. ICE CHIPS AT BEDSIDE, PATIENT EDUCATED TO INGEST SLOWLY. PATIENT AMBULATED TO BATHROOM WITHOUT DIFFICULTY. NO FURTHER NEEDS AT THIS TIME. PERSONAL ITEMS AND CALL LIGHT WITHIN REACH.
[2022-02-04] MEDS ORDERED: ROSUVASTATIN CA20 MG PO ×2 (17:02)
--- NOTE | 2022-02-04 17:24 | NUR ---
Updated Dr. Peres with patient's new H&H levels. No changes at this time.
--- NOTE | 2022-02-04 17:58 | NUR ---
PATIENT HAS REMAINED STABLE THROUGHOUT SHIFT WITH NO SHOWING OF BLOOD VIA EMESIS OR RECTUM. BLOOD PRESSURE REMAINS LOW WITH SBP IN THE 100s. 2 UNITS OF PRBC GIVEN ONLY BRINGING HGB FROM 6.3 TO 7.2. PATIENT HAS BEEN ABLE TO AMBULATE TO THE BATHROOM WITHOUT DIFFICULTY. PATIENT HAS STATED SHE FEELS BETTER THAN WHEN SHE FIRST ARRIVED. UPPER SCOPE PLANNED FOR TUESDAY, 02/05. PATIENT TO BE NPO AFTER MIDNIGHT, AND ONLY SMALL AMOUNTS OF SIPS/CHIPS BEFORE.
[2022-02-04] MEDS ORDERED: HUMALOG100 UNIT/2 SUB-Q ×2 (18:14)
[2022-02-04] MEDS ORDERED: PRENATAL TABLE1 EAC3 PO ×2 (18:16)
[2022-02-04] MEDS ORDERED: SEROQUEL100 MG PO ×2 (18:17)
--- NOTE | 2022-02-04 18:18 | NUR ---
MED REC COMPLETE
--- NOTE | 2022-02-04 19:05 | NUR ---
PT REPORT RECEIVED FROM [facility]. PT RESTING IN BED, IV FLUIDS INFUSING PER ORDER. NO NEEDS AT THIS TIME. CALL LIGHT IN REACH.
--- NOTE | 2022-02-04 20:30 | NUR ---
ASSESSMENT COMPLETED. GCS 15, A&O X4. IV s WNL, CDI, FLUSHED WELL. IV FLUIDS INFUSING PER ORDER. HEART TONES REGULAR, LUNGS CLEAR. ABD SOFT, TENDER, BOWEL TONES ACTIVE. PT HAS CHRONIC NUMBNESS AND TINGLING IN HANDS AND FEET. MOTOR AND PULSES INTACT. SCHEDULED MEDS PROVIDED. PT DECLINED HUMALIN R FOR CBG OF 200 BUT TOOK 30 U GLARGINE. PT REPORTS 9/10 SHARP ABD PAIN, PRN PAIN MED PROVIDED. EDUCATION PROVIDED CONCERNING DIET CHANGES, SAFETY AND IV FLUIDS. NO OTHER NEEDS AT THIS TIME. CALL LIGHT IN REACH.
--- NOTE | 2022-02-04 20:30 | NUR ---
IN TO CHECK ON PT, RECOREDED I&Os, VS CHECKED, NO FURTHER NEEDS AT THIS TIME
--- NOTE | 2022-02-04 22:04 | NUR ---
PT REPORTS 7/10 ABD PAIN. PRN PAIN MEDS PROVIDED BY [facility]. NO OTHER NEEDS AT THIS TIME. CALL LIGHT IN REACH.
--- NOTE | 2022-02-04 23:00 | NUR ---
PT SLEEPING, RR EVEN, UNLABORED. CALL LIGHT IN REACH.
--- NOTE | 2022-02-04 23:35 | NUR ---
CALL LIGHT ON, PT HAD SOME EMESIS, "DUE TO PAIN" per pt's statement, RN INFORMED OF PT AND IV PUMP ALARM, NO FURTHER NEEDS AT THIS TIME
--- NOTE | 2022-02-05 | EKG ---
[facility] [address] [facility] [place], [place] [address] Signed Sinus tachycardia Septal infarct (cited on or before 30-MAR-2021) Abnormal ECG When compared with ECG of 03-NOV-2021 20:17, Questionable change in initial forces of Anteroseptal leads Confirmed by MATI ALCARAZ MD ([id number]) on 02/05/2022 12:00:08 AM Electronically Signed By: MATI ALCARAZ MD 02/05/22 0000 PATIENT NAME: SHAMEKA LEEECCA Electrocardiogram DATE OF : 88 PHYSICIAN: MATI ALCARAZ MD REPORT #: [id number] REPORT IS CONFIDENTIAL AND NOT TO BE RELEASED WITHOUT AUTHORIZATION
--- NOTE | 2022-02-05 00:10 | NUR ---
PT REPORTS NAUSE AND 8/10 ABD PAIN, PRN NAUSEA AND PAIN MED PROVIDED. ASSESSMENT COMPLETED. NEW BAG OF IV FLUIDS PROVIDED. IVs WNL. ABD SOFT, TENDER, BOWEL TONES ACTIVE. EDUCATION PROVIDED CONCERNING NPO STATUS. NO OTHER NEEDS AT THIS TIME. CALL LIGHT IN REACH.
--- NOTE | 2022-02-05 02:12 | NUR ---
PT STATES SHE HAS 8/10 ABD PAIN, PRN PAIN MED PROVIDED. CBG 202, PT DECLINES INSULIN. IV FLUIDS INFUSING PER ORDER. NO OTHER NEEDS AT THIS TIME. CALL LIGHT IN REACH.
--- NOTE | 2022-02-05 04:10 | NUR ---
PT REPORTS 7/10 ABD PAIN, PRN PAIN MED PROVIDED. ASSESSMENT COMPLETED. VS AND I&O COMPLETED. ABD SOFT, TENDER, BOWEL TONES ACTIVE. IVs WNL, IV FLUIDS INFUSING PER ORDER. NO OTHER NEEDS AT THIS TIME. CALL LIGHT IN REACH.
--- NOTE | 2022-02-05 04:15 | NUR ---
IN TO ASSIST PT BACK FROM THE TOILET, VS DONE, WARM BLANKET, NO FURTHER NEEDS AT THIS TIME
--- NOTE | 2022-02-05 06:11 | NUR ---
PT REPORTS 8/10 LOWER ABD PAIN. PT STATES THE PAIN IS "HALF MY OVARY CYST AND HALF MY STOMACH BLEED". PRN PAIN MED PROVIDED. PT STATES SHE HAS NAUSEA, PRN NAUSEA MED PROVIDED. NO OTHER NEEDS AT THIS TIME. CALL LIGHT IN REACH.
--- NOTE | 2022-02-05 08:15 | NUR ---
PT MEDICATION ADMININSTRATION AND ASSESSMENT COMPLETED. PT IS A/O, RESPIRATIONS EVEN AND REGULAR. PT C/O PAIN 12/16. PAIN MEDICATIONS GIVEN. PT DENIES ANY OTHER NEEDS OR COMPLAINTS ATT. CALL LIGHT WITHIN REACH. IV FLUIDS RUNNING.
[2022-02-05] MEDS ORDERED: IBUPROFEN600 MG PO ×2 (08:40)
--- NOTE | 2022-02-05 09:46 | NUR ---
BLOOD ADMINISTRATION STARTED. 15MINUTE VS WNL. TOLERATING WELL. PT UP TO RESTROOM. AMBULATING WELL.
--- NOTE | 2022-02-05 09:50 | NUR ---
TO UNIT. NOTIFIED THAT PT HAD X1 EMESIS. VO GIVEN FOR ADDITIONAL DOSE OF ZOFRAN 4MG NOW.
--- NOTE | 2022-02-05 11:00 | NUR ---
Spoke briefly with pt and she states she is now residing in a double wide trailer with her so and children.She denies needs and will go home with SO. Pt is nauseated and I ended the visit as she was not feeling well.
--- NOTE | 2022-02-05 11:15 | NUR ---
BLOOD ADMINISTRATION COMPLETED. PT TOLERATED WELL, RESPIRATIONS EVEN AND REGULAR. CONTINUES TO C/O NAUSEA.
--- NOTE | 2022-02-05 11:40 | NUR ---
PT ALERT, SITTING UP IN BED WITH TV ON. PT RECEIVING BLOOD TANSFUSION, SEEMS RELAXED, IS SCHEDULED TD HAVE SCOPE TODAY. GAVE BLESSING AND WILL FOLLOW
--- NOTE | 2022-02-05 12:30 | NUR ---
PT ASSESSMENT COMPLETED. PT IS A/O, RESPIRATIONS EVEN AND REGULAR. PT CONTINUES TO FEEL NAUSEATED AND VOMITED X1. IV FLUIDS RUNNING. VISITOR AT BEDSIDE. CALL LIGHT WITHIN REACH.
--- NOTE | 2022-02-05 12:58 | NUR ---
TO PT ROOM FOR MEDICATION ADMINISTRATION. IV FLUIDS RUNNING. PT DENIES COMPLAINTS OR NEEDS ATT. CALL LIGHT WTIHIN REACH.
--- NOTE | 2022-02-05 14:15 | NUR ---
TO PT ROOM FOR MEDICATION ADMINISTRATION. PT UP TO VOID, AMBULATING WELL. IV FLUIDS RUNNING. PAIN MEDICATION ADMINISTERED FOR PAIN RATING 8/10.
--- NOTE | 2022-02-05 15:58 | NUR ---
PT RETURNED TO UNIT FROM SURGERY. SHE IS ALERT AND TALKATIVE. RESPIRATIONS EVEN AND REGULAR. IV FLUIDS RUNNING AT 100ML/HR. CALL LIGHT WITHIN REACH.
--- NOTE | 2022-02-05 17:30 | NUR ---
TRANSFERRED PT CARE TO [facility] IN CCU.
--- NOTE | 2022-02-05 17:32 | OR ---
[facility] [address], [place] [address] Signed DATE OF OPERATION: 02/05/2022 SURGEON: Chris Sanders MD PREOPERATIVE DIAGNOSIS: Presumed hematemesis and anemia. POSTOPERATIVE DIAGNOSIS: Normal upper endoscopy. PROCEDURE: Esophagogastroduodenoscopy with biopsy. ANESTHESIA: Intravenous sedation, propofol infusion; Abby Eng CRNA INDICATIONS: This 31-year-old white woman has numerous prior medical issues including drug abuse and other issues. She is currently reasonably stabilized in her life. She presented with what was considered to be hematemesis and anemia and as manifested by "coffee-grounds emesis." She has undergone transfusion therapy as her hematocrit has drifted and she has had some old blood per rectum. She is admitted to undergo upper endoscopy to better characterize the source of her presumed hematemesis and anemia. She understands the risk of bleeding, infection, and perforation and wished to proceed. FINDINGS: Perfectly normal upper endoscopy is noted including the 3rd and 4th portions of the duodenum, esophagus and stomach. There is absolutely no lesion to account for any hematemesis, certainly no ulcer, neoplasm, or other finding. DESCRIPTION OF PROCEDURE: The patient was brought to the endoscopy suite, given intravenous sedation with propofol infusional technique and was in the lateral decubitus position left side down. A bite block was placed. An Olympus video upper endoscope was passed in the hypopharynx. The vocal cords were normal. Scope was advanced to the esophagus, throughout its length it was normal. Scope was passed to the stomach, which was insufflated with air. It was empty. There was no sign of blood or clot or other finding. Rugal folds were normal. Antrum was normal. Pylorus was normal. Scope was passed through into the duodenum. The scope was advanced as far as possible to the duodenum into the proximal jejunum and was found to be normal. The scope was withdrawn and careful inspection of the bulb and Electronically Signed By: CHRIS SANDERS MD 02/05/22 1732 PATIENT NAME: SHAMEKA LEE OPERATIVE REPORT DATE OF : [birth year] REPORT #: [id number] PHYSICIAN: CHRIS SANDERS MD PCP: ENIO SALCIDO MD REPORT IS CONFIDENTIAL AND NOT TO BE RELEASED WITHOUT AUTHORIZATION [facility] [address], [place] [address] Signed channel of the stomach showed no evidence of ulcer or neoplasm. The scope was withdrawn. Retroflexed view undertaken showing a good flap valve. Mucosal folds in the proximal stomach were slightly enlarged but not pathologically so, and there was no sign of ulceration or neoplasm. Biopsies were taken of the for both FARZAD pathologic testing. The scope was withdrawn to the distal esophagus which was normal. Scope was withdrawn confirming normal esophagus upon exit. The scope was reintroduced once again. Examination thoroughly undertaken again confirming the no lesion to account for hematemesis nor anemia. The scope was removed and the patient was taken to the recovery room in good condition. CONCLUDING DIAGNOSIS: Misapprehension as to hematemesis most likely; may have had old bile in stomach. PLAN: We will review with admitting physician regarding advisability of colonoscopy or other interventions. Chris Sanders MD JM/MODL /[id number] cc: Mati Peres MD Copies: MATI PERES MD ~ Electronically Signed By: CHRIS SANDERS MD 02/05/22 1732 PATIENT NAME: SHAMEKA LEE OPERATIVE REPORT DATE OF : 88 REPORT #: [id number] PHYSICIAN: CHRIS SANDERS MD PCP: ENIO SALCIDO MD REPORT IS CONFIDENTIAL AND NOT TO BE RELEASED WITHOUT AUTHORIZATION
--- NOTE | 2022-02-05 18:00 | NUR ---
THIS RN RESUMED CARE AT THIS TIME. PATIENT IS RESTING IN BED ON HER PHONE AT THIS TIME. PATIENT DENIES ANY NEEDS. WILL CONTINUE TO CLOSELY MONITOR. CALL LIGHT I NREACH.
--- NOTE | 2022-02-05 20:00 | NUR ---
PATIENT ATE SMALL AMOUNTS OF SOLID FOOD WITHOUT NAUSEA OR VOMITING. REPORTS A HEADACHE. HAD A LOOSE BLACK BM. NO ACTIVE SIGNS OF BLEEDING NOTED.
--- NOTE | 2022-02-05 20:39 | NUR ---
NOTIFIED DR HOLBROOK OF NOT HAVING POST TRANSFUSION HGB/HCT AND NO AM LABS. NO NEW ORDERS.
--- NOTE | 2022-02-05 22:30 | NUR ---
TELEPHONE REPORT RECEIVED FROM CCU RN BHUPENDRA, QUESTIONS ANSWERED. pt THEN WAS TRANSFERRED TO [facility] AT 2232 BY ELECTRICAL JOURNEYMAN BRANDO VIA WHEELCHAIR. pt INDEPENDNENT IN ROOM, ON RA. ORIENTED TO ROOM, CALL LIGHT IN REACH. WARM BLANKET PROVIDED.
--- NOTE | 2022-02-05 23:12 | NUR ---
CLARIFIED WITH DR HOLBROOK, pt WILL NOT BE HAVING A COLONSCOPY TOMORROW AND CAN CONTINUE WITH ADA DIET CURRENTLY ORDERED. DR HOLBROOK MADE AWARE THAT pt REFUSED SCHEDULED INSULIN SS WITH HS (OCCURED IN CCU BEFORE pt TRANSFERRED TO [facility] ACCUCHECK WAS 287 AT THAT TIME, APPEARS LONG ACTING INSULIN THOUGH WAS GIVEN. NO NEW ORDERS RECEIVED AT THIS TIME.
--- NOTE | 2022-02-05 23:59 | NUR ---
RECEIVED REPORT FROM [facility], THIS RN TAKING OVER CARE. PT RESTING IN BED WITH CPOX IN PLACE. CALL LIGHT WITHIN REACH.
--- NOTE | 2022-02-06 02:17 | NUR ---
PT STATED SHE WAS HUNGRY AND WOULD LIKE SOMETHING TO EAT. PROVIDED TURKEY SANDWICH WITH APPLESAUCE AND FRESH ICE WATER. OBTAINED VS, VSS. PT NOW LAYING DOWN RESTING IN BED, WARM BLANKET PROVIDED. CALL LIGHT WITHIN REACH. NO FURTHER NEEDS AT THIS TIME.
--- NOTE | 2022-02-06 05:09 | NUR ---
PT RESTING IN BED WITH EYES CLOSED. ALERT & ORIENTED X4, AND FOLLOWS DIRECTION DURING ASSESSMENT. CMS INTACT X4. PT INDEPENDENT TO BATHROOM WITH STEADY GAIT. PT ON CPOX FOR POST OP PROTOCOL, O2 SATS REMAIN IN MID 90'S W/RESPIRATIONS EVEN, UNLABORED, AND BREATH SOUNDS CLEAR THROUGHOUT. PT ABDOMEN IS TENDER TO THE TOUCH THROUGHOUT, BOWEL SOUNDS ACTIVE X4, AND DISTENDED. IV SITE IS WNL, NO SIGNS OF INFX. CALL LIGHT WITHIN REACH, NO FURTHER NEEDS AT THIS TIME.
--- NOTE | 2022-02-06 06:30 | NUR ---
IN ROOM FOR BOX CAR WASHER, VS, AND I/O'S. PT ABLE TO AMBULATE TO RESTROOM INDEPENDENTLY. OUTPUT RECORDED. SMALL BM RESEMBLES COFFEE GROUNDS, NO EVIDENCE OF ACTIVE BLEEDING. URINE OUTPUT HAS PINK TINGE. PT STATES SHE HAS BEEN ON PERIOD FOR 2 MONTHS AND THIS IS NORMAL FOR HER. VSS. PT STATES ABDOMINAL PAIN /10 AND REQUESTS PRN PERCOCET. ADMINISTERED AND CRACKERS PROVIDED. PT STATES NO NAUSEA PRESENT AT THIS TIME. PT NOW LAYING IN BED, CALL LIGHT WITHIN REACH, FRESH ICE WATER PROVIDED, NO FURTHER NEEDS AT THIS TIME.
--- NOTE | 2022-02-06 07:01 | NUR ---
PT ADMITTED TO [facility] FROM CCU @1030 PM. VSS. PT REQUESTED SNACK AT 2AM, PROVIDED TURKEY SANDWICH AND APPLESAUCE, PT ADVANCED TO 2 GM CARB DIET. PT INDEPENDENT IN ROOM. PT VOIDING QUANTITY SUFFICIENT. X2 BM, NO ACTIVE BLEEDING NOTED. PINK URINE NOTED IN OUTPUT, PT STATES SHE HAS BEEN ON PERIOD FOR 2 MONTHS. PRN PERCOCET GIVEN FOR 7/10 ABDOMINAL PAIN, TYLENOL REFUSED. NO NAUSEA NOTED AT THIS TIME. CALL LIGHT USED APPROPRIATELY.
--- NOTE | 2022-02-06 07:30 | NUR ---
REPORT RECEIVED FROM NIGHT RN AND PT. CARE RESUMED. PT. IS ALERT AND ORIENTED. SHE REPORTS MILD LOWER ABDOMINAL PAIN AND RECENTLY HAD PERCOCET. BOWEL TONES HYPOACTIVE THROUGHOUT. ASSESSMENT COMPLETED. PT. STATES SHE IS "STARVING" AND BROUGHT SUGAR FREE SNACKS BEFORE BREAKFAST ARRIVES. PT. REFUSES INSULIN UNTIL SHE EATS BREAKFAST. DISCUSSED SHOWERING, POC AND PAIN MANAGEMENT. LEFT RESTING WITH CALL LIGHT IN REACH
--- NOTE | 2022-02-06 09:03 | NUR ---
PATIENT WOULD LIKE TO TAKE A SHOWER TODAY. PATIENT IS EATING BREAKFAST.
--- NOTE | 2022-02-06 09:55 | NUR ---
PT. USED CALL LIGHT TO REQUEST WARM BLANKET. BP RECHECKED AND WNL. PT. BROUGHT SNACKS. DENIES FURTHER NEEDS. LEFT RESTING WITH CALL LIGHT IN REACH.
--- NOTE | 2022-02-06 11:06 | NUR ---
ROUNDING ON PT. SHE IS RESTING IN BED WITH EYES CLOSED. RESPIRATIONS ARE EVEN AND UNLABORED.
--- NOTE | 2022-02-06 12:50 | NUR ---
PT DICHARGED TO HOME WITH ALL PERSONAL BELONINGS, WALKED OFF UNIT WITH DIGNA PAZ. VSS, IV REMOVED, CATH INTACT. PT VERBALIZED UNDERSTANDING OF DISCHARGE TEACHINGS.
--- NOTE | 2022-02-09 17:56 | CONS ---
[facility] [address], [place] [address] Signed DATE OF CONSULTATION: 02/04/2022 REQUESTING PHYSICIAN: Dr. Peres. PROBLEM: Hematemesis. HISTORY OF PRESENT ILLNESS: This 31-year-old white woman was admitted to the intensive care unit under the direction of Dr. Peres, having demonstrated more than two days of coffee-ground emesis. She has noted some lower abdominal pain, but no epigastric or upper abdominal pain nor evidence of dysphagia. She was found to have a hemoglobin of 6.3 and has undergone transfusion therapy. The patient was seen in the emergency room only two days ago with lower abdominal pain. Imaging study showed an enlarged ovarian cyst. It was described as a size of a "tennis ball" though I have not yet reviewed her CT scan images to that issue. The patient was prescribed Motrin for her pain. She has been taking 800 mg of ibuprofen every 8 hours. She has a distant history of peptic ulcer disease she notes. The patient has numerous other medical problems including diabetes, bipolar disorder, hyperlipidemia, and asthma. She has a baby that she cares for currently. I am familiar with her having taken care of her in August of 2021 following for her infant, which resulted in bladder injury and subsequent development of a wound infection in the lower aspect, which I treated. At that time, she had a rather chaotic and pneumatic lifestyle ultimately returning to the [facility], but I did see her in followup. The wound had been closed as she was not able to logistically have a wound VAC device. Notably she did heal up the lower abdominal wound. The patient does smoke. Previously used methamphetamine on a routine basis, but denies that to the admitting physician currently. She uses marijuana occasionally for nausea. She does have her baby back in possession and does have a boyfriend with whom she lives here in the [facility]. CURRENT MEDICATIONS: At home include Motrin as described. Electronically Signed By: CHRIS SANDERS MD 02/09/22 1756 PATIENT NAME: SHAMEKA LEE CONSULTATION DATE OF : 88 REPORT #: [id number] PHYSICIAN: CHRIS SANDERS MD PCP: ENIO SALCIDO MD REPORT IS CONFIDENTIAL AND NOT TO BE RELEASED WITHOUT AUTHORIZATION [facility] [address], [place] [address] Signed ALLERGIES: Described as Benadryl, Lamictal, Lyrica and Chantix. REVIEW OF SYSTEMS: She denies any back pain particularly. She has no epigastric pain and no dysphagia. She has had what she describes as "coffee-grounds" on vomiting. She has had some blood per rectum. PHYSICAL EXAMINATION: GENERAL: A cooperative white woman, who does not look to be in severe distress at this time. A unit of blood is infusing currently. VITAL SIGNS: Her temperature is 98.6, pulse 106, blood pressure 111/86, O2 saturation 99% on room air. Trachea is midline. CHEST: Clear. HEART: Regular. ABDOMEN: Somewhat obese but soft. She has several incisions in the abdominal wall. The lower abdomen suprapubic area is examined from prior complex wound treatment and closure and appears to be intact. I see no sign of hernia nor sign of unhealed wound. She does not have epigastric tenderness. There is mild lower abdominal discomfort on deep palpation. I do not feel the pelvic cyst. EXTREMITIES: Show no clubbing, cyanosis, or edema. LABORATORY STUDIES: At approximately 9:20 this morning showed a white count of 8.8, hematocrit of 18.1, platelets of 210,000. Chem profile abnormal for a chloride of 95. Creatinine was noted to be normal at 0.65. Liver enzymes essentially normal. Lipase was 83. Beta HCG negative. Coag studies show a protime of 12.8 with an INR of 0.99. Serology shows no evidence of COVID disease. Review of the imaging studies performed in the emergency room under the direction of Dr. Marie, emergency room physician does confirm a left adnexal mass which was about 5.2 cm. It is considered complex and possibly a hemorrhagic ovarian cyst. There were no other findings of concern. A diastasis rectus is identified, but one could argue this represents actual hernia, it is unclear. There is significant separation of her rectus abdominal muscle and the demarcation between intra-abdominal viscera and subcutaneous space are difficult to discern particularly. Sagittal view is reviewed, which shows some suspicion that this represents herniation rather than diastasis itself. ASSESSMENT: Her hematemesis may well be related to her Motrin use. Upon close review and discussion with the patient as it turns out she has had total mouth extraction of multiple carious teeth more than in the past week for which she was prescribed ibuprofen initially and for which she has been on a scheduled intake of 800 mg of Motrin. Most likely she has a peptic related problem related to the Motrin, specifically gastric or duodenal ulceration. Electronically Signed By: CHRIS SANDERS MD 02/09/22 1756 PATIENT NAME: SHAMEKA LEE CONSULTATION DATE OF : 88 REPORT #: [id number] PHYSICIAN: CHRIS SANDERS MD PCP: ENIO SALCIDO MD REPORT IS CONFIDENTIAL AND NOT TO BE RELEASED WITHOUT AUTHORIZATION [facility] [address] [place] [address] Signed Upper endoscopy would be appropriate. We will allow blood to clear which will make examination more expedient and more accurate today anticipating upper endoscopy tomorrow. If she should "cut loose" with bleeding today, then of course the upper endoscopy could be expedited even tonight if necessary. The risk of bleeding, infection, and so forth were reviewed with her in detail. She understands and wished to proceed. MD CALVIN Vasquez/MODL /[id number] cc: Mati Peres MD Copies: MATI PERES MD ~ Electronically Signed By: CHRIS SANDERS MD 02/09/22 1756 PATIENT NAME: SHAMEKA LEE CONSULTATION DATE OF : 88 REPORT #: [id number] PHYSICIAN: CHRIS SANDERS MD PCP: ENIO SALCIDO MD REPORT IS CONFIDENTIAL AND NOT TO BE RELEASED WITHOUT AUTHORIZATION
== END 2022-02-06 12:47 | disposition home or self-care (01) | DRG 378 ==
LOC: ED 08:49 → MS 11:59 → CCU 11:59 → MS 02-05 22:26
PROVIDERS: ADMIT Internal Medicine; ATTEND Internal Medicine
PROC: 30233N1 Transfusion of Nonautologous Red Blood Cells into Peripheral Vein, Percutaneous Approach (ICD-10-PCS; principal; 2022-02-04)
PROC: 0DB68ZX Excision of Stomach, Via Natural or Artificial Opening Endoscopic, Diagnostic (ICD-10-PCS; 2022-02-05)
DX: K92.2 Gastrointestinal hemorrhage, unspecified (principal); D62 Acute posthemorrhagic anemia; J45.909 Unspecified asthma, uncomplicated; E03.9 Hypothyroidism, unspecified; E78.5 Hyperlipidemia, unspecified; E11.9 Type 2 diabetes mellitus without complications; F41.9 Anxiety disorder, unspecified; F31.9 Bipolar disorder, unspecified; G89.29 Other chronic pain; Z20.822 Contact with and (suspected) exposure to COVID-19; Z91.040 Latex allergy status; Z88.8 Allergy status to other drugs, medicaments and biological substances; F17.200 Nicotine dependence, unspecified, uncomplicated; Z90.49 Acquired absence of other specified parts of digestive tract; Z98.890 Other specified postprocedural states; Z88.1 Allergy status to other antibiotic agents
CPT/HCPCS: 00731; 36415; 36430; 80048; 80053; 83690; 84703; 85025; 85060; 85610; 86850; 86900; 86901; 86922; 87502; 93005; 93010; 94762; A9270; C9113; C9803; J1170; J1815; J2001; J2405; J2704; J2765; J3480; J7030; J7060; J7121; P9016; U0003

== ENCOUNTER 2022-02-08 15:26 | Emergency (ER) | payer MEDICARE, OTHER ==
[~2022-02-08] VITALS: Ht 165.1 cm; Wt 78.0 kg
[~2022-02-08 15:26] MED LIST changes: +AMOXICILLIN500 MG PO; +BUSPIRONE HCL15 MG PO; +CHLORHEXIDINE473 ML MM; +HYDROXYZINE PA100 MG PO; +MAGNESIUM OXID400 M1 PO; +METFORMIN HCL500 M1 PO; +NALTREXONE HCL50 MG PO; +PIOGLITAZONE HC30 MG PO; +PRAZOSIN HCL5 MG PO; +QUETIAPINE FUM200 MG PO; +ROSUVASTATIN CA20 MG PO
[2022-02-08] MEDS ORDERED: ULTRAM50 MG PO (23:04)
== END 2022-02-09 00:01 | disposition home or self-care (01) ==
LOC: ED 15:26
DX: N83.202 Unspecified ovarian cyst, left side (principal); E11.9 Type 2 diabetes mellitus without complications; E78.5 Hyperlipidemia, unspecified; J45.909 Unspecified asthma, uncomplicated; F17.200 Nicotine dependence, unspecified, uncomplicated; Z88.8 Allergy status to other drugs, medicaments and biological substances; Z88.1 Allergy status to other antibiotic agents; Z91.048 Other nonmedicinal substance allergy status; Z79.899 Other long term (current) drug therapy; Z79.4 Long term (current) use of insulin; Z79.84 Long term (current) use of oral hypoglycemic drugs
CPT/HCPCS: 36415; 74177; 80053; 81001; 83690; 84703; 85025; 85610; 87088; 88305; 88342; 96374; 96376; 99284-25; J2270; Q9967

== ENCOUNTER 2022-02-19 08:03 | Emergency (ER) | payer MEDICARE, OTHER ==
[~2022-02-19] VITALS: Ht 165.1 cm; Wt 78.0 kg
[~2022-02-19 08:03] MED LIST changes: +ULTRAM50 MG PO
[2022-02-19] MEDS ORDERED: ONDANSETRON ODT8 MG PO (13:19)
[2022-02-19] MEDS ORDERED: HYDROCODON-ACE1 EA10 PO (13:19)
== END 2022-02-19 13:35 | disposition home or self-care (01) ==
LOC: ED 08:03
DX: R10.32 Left lower quadrant pain (principal); E11.65 Type 2 diabetes mellitus with hyperglycemia; N83.202 Unspecified ovarian cyst, left side; D64.9 Anemia, unspecified; E78.5 Hyperlipidemia, unspecified; J45.909 Unspecified asthma, uncomplicated; F17.200 Nicotine dependence, unspecified, uncomplicated; Z88.8 Allergy status to other drugs, medicaments and biological substances; Z91.048 Other nonmedicinal substance allergy status; Z79.899 Other long term (current) drug therapy; Z79.4 Long term (current) use of insulin
CPT/HCPCS: 36415; 80053; 81001; 84703; 85025; 96372; 99284; A9270; J1170

== ENCOUNTER 2022-02-28 06:12 | Emergency (ER) | payer MEDICARE, OTHER ==
[~2022-02-28] VITALS: Ht 165.1 cm; Wt 76.0 kg
[~2022-02-28 06:12] MED LIST changes: +HYDROCODON-ACE1 EA10 PO
== END 2022-02-28 10:38 | disposition home or self-care (01) ==
LOC: ED 06:12
DX: R10.12 Left upper quadrant pain (principal); R11.2 Nausea with vomiting, unspecified; E10.9 Type 1 diabetes mellitus without complications; F17.200 Nicotine dependence, unspecified, uncomplicated; E78.5 Hyperlipidemia, unspecified; Z20.822 Contact with and (suspected) exposure to COVID-19; Z88.8 Allergy status to other drugs, medicaments and biological substances; Z91.048 Other nonmedicinal substance allergy status; Z79.84 Long term (current) use of oral hypoglycemic drugs; Z79.4 Long term (current) use of insulin; Z79.899 Other long term (current) drug therapy
CPT/HCPCS: 36415; 74177; 80053; 80061; 81001; 82010; 82150; 82803; 83690; 84703; 85025; 85060; 86850; 86900; 86901; 96361; 96375; 99284-25; C9113; C9803; J1170; J2060; J2270; J2405; J7030; J7121; Q9967; U0003

== ENCOUNTER 2022-04-12 09:31 | Emergency (ER) | payer MEDICARE, OTHER ==
[~2022-04-12] VITALS: Ht 165.1 cm; Wt 75.8 kg
[2022-04-12] MEDS ORDERED: ONDANSETRON ODT4 MG PO (14:23)
[2022-04-12] MEDS ORDERED: AMOX TR-K CLV1 EAC1 PO (14:23)
== END 2022-04-12 15:09 | disposition home or self-care (01) ==
LOC: ED 09:31
DX: R11.2 Nausea with vomiting, unspecified (principal); R10.9 Unspecified abdominal pain; N39.0 Urinary tract infection, site not specified; E13.9 Other specified diabetes mellitus without complications; E78.5 Hyperlipidemia, unspecified; J45.909 Unspecified asthma, uncomplicated; F17.200 Nicotine dependence, unspecified, uncomplicated; Z20.822 Contact with and (suspected) exposure to COVID-19; Z88.8 Allergy status to other drugs, medicaments and biological substances; Z91.048 Other nonmedicinal substance allergy status; Z79.899 Other long term (current) drug therapy; Z79.4 Long term (current) use of insulin
CPT/HCPCS: 36415; 74177; 80053; 81001; 82010; 82140; 82803; 83690; 83735; 84703; 85025; 87502; 96375; 96376; 99284-25; C9113; C9803; J0696; J1170; J2405; J7030; Q9967; U0003

== ENCOUNTER 2022-04-19 13:09 | Emergency (ER) | payer MEDICARE, OTHER ==
[~2022-04-19] VITALS: Ht 165.1 cm; Wt 75.8 kg
[~2022-04-19 13:09] MED LIST changes: +AMOX TR-K CLV1 EAC1 PO
[2022-04-19] MEDS ORDERED: HYDROCODON-ACE1 EA11 PO (17:29)
== END 2022-04-19 17:47 | disposition home or self-care (01) ==
LOC: ED 13:09
DX: E11.65 Type 2 diabetes mellitus with hyperglycemia (principal); R10.31 Right lower quadrant pain; R10.32 Left lower quadrant pain; E78.5 Hyperlipidemia, unspecified; J45.909 Unspecified asthma, uncomplicated; F17.200 Nicotine dependence, unspecified, uncomplicated; Z88.8 Allergy status to other drugs, medicaments and biological substances; Z91.048 Other nonmedicinal substance allergy status; Z79.899 Other long term (current) drug therapy; Z79.4 Long term (current) use of insulin
CPT/HCPCS: 36415; 80053; 81003; 83690; 85025; 99284; A9270; J1815

== ENCOUNTER 2022-06-08 06:42 | Emergency (ER) | payer MEDICARE, OTHER ==
[~2022-06-08] VITALS: Ht 165.1 cm; Wt 71.0 kg
[~2022-06-08 06:42] MED LIST changes: +HYDROCODON-ACE1 EA11 PO
== END 2022-06-08 14:04 | disposition home or self-care (01) ==
LOC: ED 06:42
DX: K29.70 Gastritis, unspecified, without bleeding (principal); E11.65 Type 2 diabetes mellitus with hyperglycemia; E78.5 Hyperlipidemia, unspecified; J45.909 Unspecified asthma, uncomplicated; F17.200 Nicotine dependence, unspecified, uncomplicated; Z88.8 Allergy status to other drugs, medicaments and biological substances; Z91.048 Other nonmedicinal substance allergy status; Z79.899 Other long term (current) drug therapy; Z79.4 Long term (current) use of insulin
CPT/HCPCS: 36415; 80053; 82010; 82803; 83690; 85025; 96374; 99284-25; J1790; J1815; J7030

== ENCOUNTER 2022-06-19 05:42 | Emergency (ER) | payer MEDICARE, OTHER ==
[~2022-06-19] VITALS: Ht 165.1 cm; Wt 71.8 kg
[~2022-06-19 05:42] MED LIST changes: +ESTRADIOL2 MG PO; +NICOTINE1 EAC2 TD
[2022-06-19] MEDS ORDERED: ONDANSETRON ODT8 MG PO (07:03)
[2022-06-19] MEDS ORDERED: CEPHALEXIN500 M1 PO (07:03)
== END 2022-06-19 07:48 | disposition home or self-care (01) ==
LOC: ED 05:42
DX: R07.2 Precordial pain (principal); N39.0 Urinary tract infection, site not specified; R10.9 Unspecified abdominal pain; E11.9 Type 2 diabetes mellitus without complications; E78.5 Hyperlipidemia, unspecified; J45.909 Unspecified asthma, uncomplicated; F17.200 Nicotine dependence, unspecified, uncomplicated; Z88.8 Allergy status to other drugs, medicaments and biological substances; Z91.048 Other nonmedicinal substance allergy status; Z79.899 Other long term (current) drug therapy; Z79.84 Long term (current) use of oral hypoglycemic drugs; Z79.4 Long term (current) use of insulin
CPT/HCPCS: 36415; 71045; 80053; 81001; 82010; 82800; 83690; 84484; 84703; 85025; 85379; 96365; 99284-25; A9270; J0696; J1815; J2405; J7030

== ENCOUNTER 2022-07-08 06:12 | Emergency (ER) | payer MEDICARE, OTHER ==
[~2022-07-08] VITALS: Ht 165.1 cm; Wt 71.7 kg
[~2022-07-08 06:12] MED LIST changes: +CEPHALEXIN500 M1 PO
[2022-07-08] MEDS ORDERED: MACROBID 100 M100 MG PO (10:52)
[2022-07-09] MEDS ORDERED: CETIRIZINE HCL10 MG PO (09:54)
[2022-07-09] MEDS ORDERED: HUMALOG KW200 UNIT/1 SUB-Q (09:56)
== END 2022-07-08 11:04 | disposition home or self-care (01) ==
LOC: ED 06:12
DX: E10.65 Type 1 diabetes mellitus with hyperglycemia (principal); E86.0 Dehydration; N39.0 Urinary tract infection, site not specified; E78.5 Hyperlipidemia, unspecified; J45.909 Unspecified asthma, uncomplicated; F17.200 Nicotine dependence, unspecified, uncomplicated; Z88.8 Allergy status to other drugs, medicaments and biological substances; Z91.048 Other nonmedicinal substance allergy status; Z79.899 Other long term (current) drug therapy; Z79.4 Long term (current) use of insulin; Z20.822 Contact with and (suspected) exposure to COVID-19
CPT/HCPCS: 36415; 80053; 81001; 82010; 82800; 83690; 84703; 85025; 85610; 85730; 86850; 86900; 86901; 86922; 87502; 96361; 96374; 96375; 96376; 99284-25; C9113; C9803; J1815; J2270; J2405; J7030; U0003

== ENCOUNTER 2022-07-24 19:20 | Emergency (ER) | payer MEDICARE, OTHER ==
[~2022-07-24] VITALS: Ht 165.1 cm; Wt 76.1 kg
[~2022-07-24 19:20] MED LIST changes: +CEFPODOXIME PR200 MG PO; +CETIRIZINE HCL10 MG PO; +MACROBID 100 M100 MG PO; +SUCRALFATE1 GM PO
[2022-07-24] MEDS ORDERED: TRANEXAMIC ACI650 MG PO (22:13)
[2022-07-24] MEDS ORDERED: HYDROCODON-ACE1 EA10 PO (22:15)
[2022-07-24] MEDS ORDERED: PROMETHAZINE HC25 M1 PO (22:15)
== END 2022-07-24 22:47 | disposition home or self-care (01) ==
LOC: ED 19:20
DX: N99.820 Postprocedural hemorrhage of a genitourinary system organ or structure following a genitourinary system procedure (principal); E11.9 Type 2 diabetes mellitus without complications; E78.5 Hyperlipidemia, unspecified; J45.909 Unspecified asthma, uncomplicated; F17.200 Nicotine dependence, unspecified, uncomplicated; Z88.8 Allergy status to other drugs, medicaments and biological substances; Z91.048 Other nonmedicinal substance allergy status; Z79.899 Other long term (current) drug therapy; Z79.84 Long term (current) use of oral hypoglycemic drugs; Z79.4 Long term (current) use of insulin
CPT/HCPCS: 36415; 80053; 81001; 84703; 85025; 86850; 86900; 86901; 96374; 96375; 99284-25; J1790; J2270; J2405; J7121

== ENCOUNTER 2022-07-27 16:29 | Emergency (ER) | payer MEDICARE, OTHER ==
[~2022-07-27] VITALS: Ht 165.1 cm; Wt 76.1 kg
[~2022-07-27 16:29] MED LIST changes: +PROMETHAZINE HC25 M1 PO; +TRANEXAMIC ACI650 MG PO
[2022-07-27] MEDS ORDERED: PROMETHEGAN25 MG PR (21:22)
== END 2022-07-27 22:31 | disposition home or self-care (01) ==
LOC: ED 16:29
DX: R10.9 Unspecified abdominal pain (principal); R11.2 Nausea with vomiting, unspecified; E11.9 Type 2 diabetes mellitus without complications; E78.5 Hyperlipidemia, unspecified; J45.909 Unspecified asthma, uncomplicated; F17.200 Nicotine dependence, unspecified, uncomplicated; Z88.8 Allergy status to other drugs, medicaments and biological substances; Z91.048 Other nonmedicinal substance allergy status; Z79.899 Other long term (current) drug therapy; Z79.84 Long term (current) use of oral hypoglycemic drugs; Z79.4 Long term (current) use of insulin
CPT/HCPCS: 36415; 74177; 80053; 81001; 83690; 83735; 84703; 85025; 96361; 96375; 96376; 99284-25; J1170; J2270; J2405; J3475; J7121; Q9967

== ENCOUNTER 2022-07-29 06:40 | Emergency (ER) | payer MEDICARE, OTHER ==
[~2022-07-29] VITALS: Ht 165.1 cm; Wt 76.8 kg
[~2022-07-29 06:40] MED LIST changes: +PROMETHEGAN25 MG PR
[2022-07-29] MEDS ORDERED: ONDANSETRON ODT8 MG PO (09:00)
[2022-07-29] MEDS ORDERED: PROMETHAZINE HC25 M1 PO (09:00)
[2022-07-29] MEDS ORDERED: HYDROCODON-ACE1 EA11 PO (09:00)
== END 2022-07-29 09:31 | disposition home or self-care (01) ==
LOC: ED 06:40
DX: N83.291 Other ovarian cyst, right side (principal); E11.9 Type 2 diabetes mellitus without complications; E78.5 Hyperlipidemia, unspecified; J45.909 Unspecified asthma, uncomplicated; F17.200 Nicotine dependence, unspecified, uncomplicated; Z88.8 Allergy status to other drugs, medicaments and biological substances; Z91.048 Other nonmedicinal substance allergy status; Z79.899 Other long term (current) drug therapy; Z79.4 Long term (current) use of insulin
CPT/HCPCS: 36415; 71046; 76830; 76856; 80053; 81001; 83690; 83735; 84703; 85025; 96361; 96374; 96375; 96376; 99284-25; A9270; J1170; J1790; J1815; J1885; J2405; J7030

== ENCOUNTER 2022-07-31 07:47 | Emergency (ER) | payer MEDICARE, OTHER ==
[~2022-07-31] VITALS: Ht 165.1 cm; Wt 76.8 kg
[2022-07-31] MEDS ORDERED: LEVOFLOXACIN750 MG PO (09:44)
== END 2022-07-31 10:00 | disposition home or self-care (01) ==
LOC: ED 07:47
DX: J18.9 Pneumonia, unspecified organism (principal); N83.201 Unspecified ovarian cyst, right side; J45.909 Unspecified asthma, uncomplicated; E11.9 Type 2 diabetes mellitus without complications; E78.5 Hyperlipidemia, unspecified; F17.200 Nicotine dependence, unspecified, uncomplicated; Z88.8 Allergy status to other drugs, medicaments and biological substances; Z91.048 Other nonmedicinal substance allergy status; Z79.899 Other long term (current) drug therapy; Z79.84 Long term (current) use of oral hypoglycemic drugs; Z79.4 Long term (current) use of insulin
CPT/HCPCS: 36415; 71250; 74177; 80048; 85025; 96375; 96376; 99284-25; A9270; J0696; J1170; J7030; Q9967

== ENCOUNTER 2022-08-05 06:48 | Emergency (ER) | payer MEDICARE, OTHER ==
[~2022-08-05] VITALS: Ht 165.1 cm; Wt 73.3 kg
[~2022-08-05 06:48] MED LIST changes: +LEVOFLOXACIN750 MG PO
[2022-08-05] MEDS ORDERED: BENZONATATE200 MG PO (09:55)
== END 2022-08-05 10:11 | disposition home or self-care (01) ==
LOC: ED 06:48
DX: K92.2 Gastrointestinal hemorrhage, unspecified (principal); J18.9 Pneumonia, unspecified organism; E11.9 Type 2 diabetes mellitus without complications; E78.5 Hyperlipidemia, unspecified; J45.909 Unspecified asthma, uncomplicated; F17.200 Nicotine dependence, unspecified, uncomplicated; Z88.8 Allergy status to other drugs, medicaments and biological substances; Z91.048 Other nonmedicinal substance allergy status; Z79.899 Other long term (current) drug therapy
CPT/HCPCS: 36415; 71045; 80053; 81003; 83690; 85025; 85060; 86850; 86900; 86901; 96361; 96374; 96375; 96376; 99284-25; C9113; J0780; J1170; J2405; J7030; J7040

== ENCOUNTER 2022-08-13 06:32 | Emergency (ER) | payer MEDICARE, OTHER ==
[~2022-08-13] VITALS: Ht 165.1 cm; Wt 76.2 kg
[~2022-08-13 06:32] MED LIST changes: +BENZONATATE200 MG PO
--- OUTSIDE RECORDS SUMMARY | 2022-08-13 06:38 | XMS ---
PreManage Notification: SHAMEKA LEE Security Box Feeder Events No recent Security Events currently on file CRITERIA MET - 6 ED Visits in 6 Months - [facility] - [facility] - 2 Visits in 30 Days CARE PROVIDERS -Naty- Dentist: Drug And Alcohol Counsellor [facility] PHONE: [phone] KYAW LOPES [employer] Consultant 08/06/2021-Current PHONE: [phone] Dior Curran Counselor: Mental Health Current PHONE: [phone] OMARI Osborn [facility] 06/08/2021-Current PHONE: [phone] Heydi has no Care Guidelines for this patient. Care History [facility] Client is established with [facility] - Cj with Dior Curran. Her Team has been unable to contact her, please have her reach out to schedule and call us to give us her updated phone number.\T\ nbsp; Medical/Surgical 01/25/2020 [facility] - PATIENT IS CURRENTLY WORKING WITH [employer]- POINT OF CONTACT IS JOSE GUADALUPE MARY- [phone] - JOSE GUADALUPE IS AWARE THAT PATIENT DOES NOT HAVE A PCP AND IS AWARE OF THE CLINIC RESOURCES IN [place]OWN SHE WILL WORK WITH PATIENT TO SET UP A PCP. E.D. VISIT COUNT (12 MO.) 1 Arian Chin 1 [facility] 22 [facility] TOTAL 24 NOTE: Visits indicate total known visits. ED/UCC VISIT TRACKING (12 MO.) 08/13/2022 06:33 [facility] [place] TYPE: Emergency COMPLAINT: - ABD PAIN, VOMITING 08/05/2022 06:48 [facility] [place] TYPE: Emergency COMPLAINT: - ABD PAIN, VOMITING BLOOD DIAGNOSES: - Type 2 diabetes mellitus without complications - Nausea with vomiting, unspecified - Other group home (current) drug therapy - Other nonmedicinal substance allergy status - Unspecified asthma, uncomplicated - Allergy status to other drugs, medicaments and biological substances - Pneumonia, unspecified organism - Hyperlipidemia, unspecified - Nicotine dependence, unspecified, uncomplicated - Gastrointestinal hemorrhage, unspecified 07/31/2022 07:48 [facility] [place] TYPE: Emergency COMPLAINT: - FEVER DIAGNOSES: - technician terminal and repeater (current) use of oral hypoglycemic drugs - technician terminal and repeater (current) use of insulin - Unspecified ovarian cyst, right side - Other nonmedicinal substance allergy status - Type 2 diabetes mellitus without complications - Unspecified asthma, uncomplicated - Pneumonia, unspecified organism - Fever, unspecified - Allergy status to other drugs, medicaments and biological substances - Nicotine dependence, unspecified, uncomplicated - Hyperlipidemia, unspecified - Other terminal carman (current) drug therapy 07/29/2022 06:41 [facility] [place] TYPE: Emergency COMPLAINT: - ABD PAIN, VOMITING DIAGNOSES: - Unspecified asthma, uncomplicated - Allergy status to other drugs, medicaments and biological substances - Other nonmedicinal substance allergy status - Hyperlipidemia, unspecified - Other ovarian cyst, right side - Nicotine dependence, unspecified, uncomplicated - Type 2 diabetes mellitus without complications - Nausea with vomiting, unspecified - Other group home (current) drug therapy - assisted (current) use of insulin 07/27/2022 16:29 [facility] [place] TYPE: Emergency COMPLAINT: - VOMITING BLOOD DIAGNOSES: - Unspecified asthma, uncomplicated - Other nonmedicinal substance allergy status - technician terminal and repeater (current) use of oral hypoglycemic drugs - assisted (current) use of insulin - Allergy status to other drugs, medicaments and biological substances - Hyperlipidemia, unspecified - Nausea with vomiting, unspecified - Unspecified abdominal pain - Nicotine dependence, unspecified, uncomplicated - Type 2 diabetes mellitus without complications - Other group home (current) drug therapy 07/24/2022 19:22 [facility] [place] TYPE: Emergency COMPLAINT: - VAGINAL BLEEDING AFTER PROCEDURE DIAGNOSES: - Hyperlipidemia, unspecified - Other nonmedicinal substance allergy status - Postprocedural hemorrhage of a genitourinary system organ or structure following a genitourinary system procedure - assisted (current) use of insulin - Other terminal carman (current) drug therapy - Allergy status to other drugs, medicaments and biological substances - Nicotine dependence, unspecified, uncomplicated - Type 2 diabetes mellitus without complications - Unspecified asthma, uncomplicated - assisted (current) use of oral hypoglycemic drugs 07/12/2022 14:08 [facility] [place] TYPE: Emergency COMPLAINT: - COUGHING UP BLOOD, DIZZINESS 07/09/2022 06:19 [facility] [place] TYPE: Emergency COMPLAINT: - BLACK TARRY STOOL, ABD PAIN, LIGHT HEADED 07/08/2022 06:13 [facility] [place] TYPE: Emergency COMPLAINT: - VOMITING BLOOD DIAGNOSES: - Urinary tract infection, site not specified - Other terminal carman (current) drug therapy - Nicotine dependence, unspecified, uncomplicated - Dehydration - assisted (current) use of insulin - Vomiting, unspecified - Contact with and (suspected) exposure to COVID-19 - Hyperlipidemia, unspecified - Type 1 diabetes mellitus with hyperglycemia - Unspecified asthma, uncomplicated - Other nonmedicinal substance allergy status - Allergy status to other drugs, medicaments and biological substances 06/19/2022 05:43 [facility] [place] TYPE: Emergency COMPLAINT: - ABD PAIN AND HEART RACING DIAGNOSES: - Type 2 diabetes mellitus without complications - Nicotine dependence, unspecified, uncomplicated - Unspecified asthma, uncomplicated - Hyperlipidemia, unspecified - Unspecified abdominal pain - Allergy status to other drugs, medicaments and biological substances - Other nonmedicinal substance allergy status - assisted (current) use of insulin - technician terminal and repeater (current) use of oral hypoglycemic drugs - Urinary tract infection, site not specified - Other group home (current) drug therapy - Precordial pain 06/08/2022 06:42 [facility] [place] TYPE: Emergency COMPLAINT: - ABD/BACK PAIN DIAGNOSES: - Nicotine dependence, unspecified, uncomplicated - Other nonmedicinal substance allergy status - Type 2 diabetes mellitus with hyperglycemia - Gastritis, unspecified, without bleeding - Left upper quadrant pain - Unspecified asthma, uncomplicated - technician terminal and repeater (current) use of insulin - Other terminal carman (current) drug therapy - Allergy status to other drugs, medicaments and biological substances - Hyperlipidemia, unspecified 04/28/2022 11:49 [facility]ble [place] TYPE: Emergency DIAGNOSES: - Type 2 diabetes mellitus with hyperglycemia - technician terminal and repeater (current) use of insulin - Procedure and treatment not carried out due to patient leaving prior to being seen by health care provider 04/19/2022 13:10 [facility] TYPE: Emergency COMPLAINT: - ABD/LOWER BACK PAIN, N/V DIAGNOSES: - Type 2 diabetes mellitus with hyperglycemia - Right lower quadrant pain - Other group home (current) drug therapy - Nicotine dependence, unspecified, uncomplicated - assisted (current) use of insulin - Left lower quadrant pain - Hyperlipidemia, unspecified - Allergy status to other drugs, medicaments and biological substances - Other nonmedicinal substance allergy status - Unspecified asthma, uncomplicated 04/12/2022 09:32 [facility] [place] TYPE: Emergency COMPLAINT: - ABD PAIN, VOMITING, BLACK STOOL DIAGNOSES: - Nicotine dependence, unspecified, uncomplicated - Hyperlipidemia, unspecified - Allergy status to other drugs, medicaments and biological substances - technician terminal and repeater (current) use of insulin - Contact with and (suspected) exposure to COVID-19 - Other nonmedicinal substance allergy status - Other terminal carman (current) drug therapy - Unspecified asthma, uncomplicated - Nausea with vomiting, unspecified - Unspecified abdominal pain - Other specified diabetes mellitus without complications - Urinary tract infection, site not specified 02/28/2022 06:12 [facility] [place] TYPE: Emergency COMPLAINT: - ABDOMINAL PAIN DIAGNOSES: - Other nonmedicinal substance allergy status - Type 1 diabetes mellitus without complications - Nausea with vomiting, unspecified - Hyperlipidemia, unspecified - Nicotine dependence, unspecified, uncomplicated - Allergy status to other drugs, medicaments and biological substances - assisted (current) use of insulin - Other terminal carman (current) drug therapy - Left upper quadrant pain - Unspecified abdominal pain - Contact with and (suspected) exposure to COVID-19 - technician terminal and repeater (current) use of oral hypoglycemic drugs 02/19/2022 08:04 [facility] [place] TYPE: Emergency COMPLAINT: - ABD PAIN DIAGNOSES: - Unspecified ovarian cyst, left side - technician terminal and repeater (current) use of insulin - Left lower quadrant pain - Allergy status to other drugs, medicaments and biological substances - Type 2 diabetes mellitus with hyperglycemia - Other nonmedicinal substance allergy status - Unspecified asthma, uncomplicated - Hyperlipidemia, unspecified - Anemia, unspecified - Other group home (current) drug therapy - Nicotine dependence, unspecified, uncomplicated 02/08/2022 15:27 [facility] [place] TYPE: Emergency COMPLAINT: - VOMITING DIAGNOSES: - Unspecified ovarian cyst, left side - Allergy status to other antibiotic agents - Allergy status to other drugs, medicaments and biological substances - Hyperlipidemia, unspecified - technician terminal and repeater (current) use of oral hypoglycemic drugs - Other terminal carman (current) drug therapy - Type 2 diabetes mellitus without complications - Nicotine dependence, unspecified, uncomplicated - assisted (current) use of insulin - Vomiting, unspecified - Other nonmedicinal substance allergy status - Unspecified asthma, uncomplicated 02/04/2022 08:50 [facility] [place] TYPE: Emergency COMPLAINT: - VOMITING BLACK, BLACK STOOL 02/02/2022 14:23 [facility] [place] TYPE: Emergency COMPLAINT: - ABD PAIN, VOMITING, BLACK STOOL DIAGNOSES: - Allergy status to other drugs, medicaments and biological substances - assisted (current) use of insulin - Hyperlipidemia, unspecified - Other nonmedicinal substance allergy status - Nausea with vomiting, unspecified - Unspecified asthma, uncomplicated - Nicotine dependence, unspecified, uncomplicated - Unspecified ovarian cyst, left side - Lower abdominal pain, unspecified - Other terminal carman (current) drug therapy - Type 2 diabetes mellitus without complications 01/11/2022 20:36 [facility] [place] TYPE: Emergency COMPLAINT: - BLOOD SUGAR PROBLEM DIAGNOSES: - Allergy status to other drugs, medicaments and biological substances - Urinary tract infection, site not specified - Type 1 diabetes mellitus with hyperglycemia - Contact with and (suspected) exposure to COVID-19 - technician terminal and repeater (current) use of insulin - Other group home (current) drug therapy - Unspecified asthma, uncomplicated - Other allergy status, other than to drugs and biological substances - Nicotine dependence, unspecified, uncomplicated - Hyperlipidemia, unspecified Plus 4 More Visits INPATIENT VISIT TRACKING (12 MO.) 07/12/2022 14:09 [facility] [place] TYPE: Observation COMPLAINT: - UPPER GI BLEED DIAGNOSES: - Hyperlipidemia, unspecified - Urinary tract infection, site not specified - Contact with and (suspected) exposure to COVID-19 - Allergy status to other drugs, medicaments and biological substances - assisted (current) use of oral hypoglycemic drugs - Hypomagnesemia - technician terminal and repeater (current) use of insulin - Type 2 diabetes mellitus with hyperglycemia - Allergy status to other antibiotic agents - Nicotine dependence, unspecified, uncomplicated 07/09/2022 06:20 [facility] [place] TYPE: Observation COMPLAINT: - GI BLEED DIAGNOSES: - Acute posthemorrhagic anemia - Hypothyroidism, unspecified - Type 2 diabetes mellitus without complications - Hematemesis - Nicotine dependence, unspecified, uncomplicated - Other nonmedicinal substance allergy status - Bipolar disorder, unspecified - Hyperlipidemia, unspecified - technician terminal and repeater (current) use of insulin - Chronic or unspecified gastric ulcer with hemorrhage - Allergy status to other drugs, medicaments and biological substances - Nicotine dependence, cigarettes, uncomplicated - Other group home (current) drug therapy 06/15/2022 07:12 [facility] [place] TYPE: Observation COMPLAINT: - DKA DIAGNOSES: - Unspecified asthma, uncomplicated - technician terminal and repeater (current) use of insulin - Anxiety disorder, unspecified - Hypothyroidism, unspecified - Type 2 diabetes mellitus with hyperglycemia - Gastro-esophageal reflux disease without esophagitis - Hyperlipidemia, unspecified - Hypomagnesemia - Type 2 diabetes mellitus with ketoacidosis without coma - Other group home (current) drug therapy - Chest pain, unspecified - Contact with and (suspected) exposure to COVID-19 - Nicotine dependence, unspecified, uncomplicated - Allergy status to other drugs, medicaments and biological substances - Bipolar disorder, unspecified 02/04/2022 11:[address] [facility] [place] TYPE: Medical Surgical COMPLAINT: - ACUTE GI BLEED DIAGNOSES: - Type 2 diabetes mellitus without complications - Acute posthemorrhagic anemia - Latex allergy status - Unspecified asthma, uncomplicated - Contact with and (suspected) exposure to COVID-19 - Allergy status to other antibiotic agents - Other specified postprocedural states - Acquired absence of other specified parts of digestive tract - Hypothyroidism, unspecified - Other specified postprocedural states - Type 2 diabetes mellitus without complications - Acute posthemorrhagic anemia - Gastrointestinal hemorrhage, unspecified - Allergy status to other antibiotic agents - Nicotine dependence, unspecified, uncomplicated - Anxiety disorder, unspecified - Bipolar disorder, unspecified - Hyperlipidemia, unspecified - Other chronic pain - Bipolar disorder, unspecified - Hyperlipidemia, unspecified - Allergy status to other drugs, medicaments and biological substances - Contact with and (suspected) exposure to COVID-19 - Other chronic pain - Unspecified asthma, uncomplicated - Latex allergy status - Allergy status to other drugs, medicaments and biological substances - Hypothyroidism, unspecified - Anxiety disorder, unspecified - Acquired absence of other specified parts of digestive tract - Nicotine dependence, unspecified, uncomplicated [email or web address]
== END 2022-08-13 08:18 | disposition home or self-care (01) ==
LOC: ED 06:32
DX: R10.9 Unspecified abdominal pain (principal); E11.65 Type 2 diabetes mellitus with hyperglycemia; E78.5 Hyperlipidemia, unspecified; J45.909 Unspecified asthma, uncomplicated; J44.9 Chronic obstructive pulmonary disease, unspecified; Z88.8 Allergy status to other drugs, medicaments and biological substances; Z91.048 Other nonmedicinal substance allergy status; Z79.899 Other long term (current) drug therapy; Z79.84 Long term (current) use of oral hypoglycemic drugs; Z79.4 Long term (current) use of insulin
CPT/HCPCS: 36415; 80053; 81003; 83690; 83735; 84703; 85025; 96374; 96375; 99284-25; A9270; C9113; J1815; J1885; J2405; J7030

== ENCOUNTER 2022-08-21 09:10 | Emergency (ER) | payer MEDICARE, OTHER ==
--- OUTSIDE RECORDS SUMMARY | 2022-08-21 09:12 | XMS ---
PreManage Notification: SHAMEKA LEE Security Collections Rep Events No recent Security Events currently on file CRITERIA MET - 6 ED Visits in 6 Months - [facility] - [facility] - 2 Visits in 30 Days CARE PROVIDERS -Naty- Dentist: Food Service Attendant [facility] PHONE: [phone] KYAW LOPES Adjustment Supervisor 08/06/2021-Current PHONE: [phone] Dior Curran Counselor: Mental Health Current PHONE: [phone] OMARI Osborn [facility] 06/08/2021-Current PHONE: [phone] Heydi has no Care Guidelines for this patient. Care History [facility] established with [facility] - Cj with Dior Curran. Her Team has been unable to contact her, please have her reach out to schedule and call us to give us her updated phone number.\T\ nbsp; Medical/Surgical 01/25/2020 [facility] [place] - PATIENT IS CURRENTLY WORKING WITH [email or web address]- POINT OF CONTACT IS JOSE GUADALUPE MARY- [phone] - JOSE GUADALUPE IS AWARE THAT PATIENT DOES NOT HAVE A PCP AND IS AWARE OF THE CLINIC RESOURCES IN [place]OWN SHE WILL WORK WITH PATIENT TO SET UP A PCP. E.D. VISIT COUNT (12 MO.) 1 [facility] TOTAL 25 NOTE: Visits indicate total known visits. ED/UCC VISIT TRACKING (12 MO.) 08/21/2022 09:11 [facility] [place] TYPE: Emergency COMPLAINT: - ABDOM PAIN, VOMITING, DIARRHEA 08/13/2022 06:33 [facility] [place] TYPE: Emergency COMPLAINT: - ABD PAIN, VOMITING DIAGNOSES: - Hyperlipidemia, unspecified - Unspecified asthma, uncomplicated - Other detention (current) drug therapy - prison (current) use of oral hypoglycemic drugs - Vomiting, unspecified - prison (current) use of insulin - Type 2 diabetes mellitus with hyperglycemia - Other nonmedicinal substance allergy status - Allergy status to other drugs, medicaments and biological substances - Chronic obstructive pulmonary disease, unspecified - Unspecified abdominal pain 08/05/2022 06:48 [facility] [place] TYPE: Emergency COMPLAINT: - ABD PAIN, VOMITING BLOOD DIAGNOSES: - Other detention (current) drug therapy - Other nonmedicinal substance allergy status - Unspecified asthma, uncomplicated - Allergy status to other drugs, medicaments and biological substances - Pneumonia, unspecified organism - Hyperlipidemia, unspecified - Nicotine dependence, unspecified, uncomplicated - Gastrointestinal hemorrhage, unspecified - Type 2 diabetes mellitus without complications - Nausea with vomiting, unspecified 07/31/2022 07:48 [facility] [place] TYPE: Emergency COMPLAINT: - FEVER DIAGNOSES: - Other nonmedicinal substance allergy status - Type 2 diabetes mellitus without complications - Unspecified asthma, uncomplicated - Pneumonia, unspecified organism - Fever, unspecified - Allergy status to other drugs, medicaments and biological substances - Nicotine dependence, unspecified, uncomplicated - Hyperlipidemia, unspecified - Other detention (current) drug therapy - bed bug exterminator (current) use of oral hypoglycemic drugs - bed bug exterminator (current) use of insulin - Unspecified ovarian cyst, right side 07/29/2022 06:41 [facility] [place] TYPE: Emergency COMPLAINT: - ABD PAIN, VOMITING DIAGNOSES: - Other nonmedicinal substance allergy status - Hyperlipidemia, unspecified - Other ovarian cyst, right side - Nicotine dependence, unspecified, uncomplicated - Type 2 diabetes mellitus without complications - Nausea with vomiting, unspecified - Other bed bug exterminator (current) drug therapy - bed bug exterminator (current) use of insulin - Unspecified asthma, uncomplicated - Allergy status to other drugs, medicaments and biological substances 07/27/2022 16:29 [facility] [place] TYPE: Emergency COMPLAINT: - VOMITING BLOOD DIAGNOSES: - prison (current) use of oral hypoglycemic drugs - bed bug exterminator (current) use of insulin - Allergy status to other drugs, medicaments and biological substances - Hyperlipidemia, unspecified - Nausea with vomiting, unspecified - Unspecified abdominal pain - Nicotine dependence, unspecified, uncomplicated - Type 2 diabetes mellitus without complications - Other bed bug exterminator (current) drug therapy - Unspecified asthma, uncomplicated - Other nonmedicinal substance allergy status 07/24/2022 19:22 [facility] [place] TYPE: Emergency COMPLAINT: - VAGINAL BLEEDING AFTER PROCEDURE DIAGNOSES: - Postprocedural hemorrhage of a genitourinary system organ or structure following a genitourinary system procedure - prison (current) use of insulin - Other bed bug exterminator (current) drug therapy - Allergy status to other drugs, medicaments and biological substances - Nicotine dependence, unspecified, uncomplicated - Type 2 diabetes mellitus without complications - Unspecified asthma, uncomplicated - bed bug exterminator (current) use of oral hypoglycemic drugs - Hyperlipidemia, unspecified - Other nonmedicinal substance allergy status 07/12/2022 14:08 [facility] [place] TYPE: Emergency COMPLAINT: - COUGHING UP BLOOD, DIZZINESS 07/09/2022 06:19 [facility] [place] TYPE: Emergency COMPLAINT: - BLACK TARRY STOOL, ABD PAIN, LIGHT HEADED 07/08/2022 06:13 [facility] [place] TYPE: Emergency COMPLAINT: - VOMITING BLOOD DIAGNOSES: - Dehydration - prison (current) use of insulin - Vomiting, unspecified - Contact with and (suspected) exposure to COVID-19 - Hyperlipidemia, unspecified - Type 1 diabetes mellitus with hyperglycemia - Unspecified asthma, uncomplicated - Other nonmedicinal substance allergy status - Allergy status to other drugs, medicaments and biological substances - Urinary tract infection, site not specified - Other detention (current) drug therapy - Nicotine dependence, unspecified, uncomplicated 06/19/2022 05:43 [facility] [place] TYPE: Emergency COMPLAINT: - ABD PAIN AND HEART RACING DIAGNOSES: - Hyperlipidemia, unspecified - Unspecified abdominal pain - Allergy status to other drugs, medicaments and biological substances - Other nonmedicinal substance allergy status - bed bug exterminator (current) use of insulin - bed bug exterminator (current) use of oral hypoglycemic drugs - Urinary tract infection, site not specified - Other detention (current) drug therapy - Precordial pain - Type 2 diabetes mellitus without complications - Nicotine dependence, unspecified, uncomplicated - Unspecified asthma, uncomplicated 06/08/2022 06:42 [facility] [place] TYPE: Emergency COMPLAINT: - ABD/BACK PAIN DIAGNOSES: - Type 2 diabetes mellitus with hyperglycemia - Gastritis, unspecified, without bleeding - Left upper quadrant pain - Unspecified asthma, uncomplicated - bed bug exterminator (current) use of insulin - Other bed bug exterminator (current) drug therapy - Allergy status to other drugs, medicaments and biological substances - Hyperlipidemia, unspecified - Nicotine dependence, unspecified, uncomplicated - Other nonmedicinal substance allergy status 04/28/2022 11:49 [facility] TYPE: Emergency DIAGNOSES: - bed bug exterminator (current) use of insulin - Procedure and treatment not carried out due to patient leaving prior to being seen by health care provider - Type 2 diabetes mellitus with hyperglycemia 04/19/2022 13:10 [facility] [place] TYPE: Emergency COMPLAINT: - ABD/LOWER BACK PAIN, N/V DIAGNOSES: - Other detention (current) drug therapy - Nicotine dependence, unspecified, uncomplicated - bed bug exterminator (current) use of insulin - Left lower quadrant pain - Hyperlipidemia, unspecified - Allergy status to other drugs, medicaments and biological substances - Other nonmedicinal substance allergy status - Unspecified asthma, uncomplicated - Type 2 diabetes mellitus with hyperglycemia - Right lower quadrant pain 04/12/2022 09:32 [facility] [place] TYPE: Emergency COMPLAINT: - ABD PAIN, VOMITING, BLACK STOOL DIAGNOSES: - prison (current) use of insulin - Contact with and (suspected) exposure to COVID-19 - Other nonmedicinal substance allergy status - Other detention (current) drug therapy - Unspecified asthma, uncomplicated - Nausea with vomiting, unspecified - Unspecified abdominal pain - Other specified diabetes mellitus without complications - Urinary tract infection, site not specified - Nicotine dependence, unspecified, uncomplicated - Hyperlipidemia, unspecified - Allergy status to other drugs, medicaments and biological substances 02/28/2022 06:12 [facility] [place] TYPE: Emergency COMPLAINT: - ABDOMINAL PAIN DIAGNOSES: - Hyperlipidemia, unspecified - Nicotine dependence, unspecified, uncomplicated - Allergy status to other drugs, medicaments and biological substances - prison (current) use of insulin - Other detention (current) drug therapy - Left upper quadrant pain - Unspecified abdominal pain - Contact with and (suspected) exposure to COVID-19 - bed bug exterminator (current) use of oral hypoglycemic drugs - Other nonmedicinal substance allergy status - Type 1 diabetes mellitus without complications - Nausea with vomiting, unspecified 02/19/2022 08:04 [facility] [place] TYPE: Emergency COMPLAINT: - ABD PAIN DIAGNOSES: - Left lower quadrant pain - Allergy status to other drugs, medicaments and biological substances - Type 2 diabetes mellitus with hyperglycemia - Other nonmedicinal substance allergy status - Unspecified asthma, uncomplicated - Hyperlipidemia, unspecified - Anemia, unspecified - Other bed bug exterminator (current) drug therapy - Nicotine dependence, unspecified, uncomplicated - Unspecified ovarian cyst, left side - bed bug exterminator (current) use of insulin 02/08/2022 15:27 [facility] [place] TYPE: Emergency COMPLAINT: - VOMITING DIAGNOSES: - Hyperlipidemia, unspecified - prison (current) use of oral hypoglycemic drugs - Other bed bug exterminator (current) drug therapy - Type 2 diabetes mellitus without complications - Nicotine dependence, unspecified, uncomplicated - prison (current) use of insulin - Vomiting, unspecified - Other nonmedicinal substance allergy status - Unspecified asthma, uncomplicated - Unspecified ovarian cyst, left side - Allergy status to other antibiotic agents - Allergy status to other drugs, medicaments and biological substances 02/04/2022 08:50 [facility] [place] TYPE: Emergency COMPLAINT: - VOMITING BLACK, BLACK STOOL 02/02/2022 14:23 [facility] [place] TYPE: Emergency COMPLAINT: - ABD PAIN, VOMITING, BLACK STOOL DIAGNOSES: - Hyperlipidemia, unspecified - Other nonmedicinal substance allergy status - Nausea with vomiting, unspecified - Unspecified asthma, uncomplicated - Nicotine dependence, unspecified, uncomplicated - Unspecified ovarian cyst, left side - Lower abdominal pain, unspecified - Other bed bug exterminator (current) drug therapy - Type 2 diabetes mellitus without complications - Allergy status to other drugs, medicaments and biological substances - prison (current) use of insulin Plus 5 More Visits INPATIENT VISIT TRACKING (12 MO.) 07/12/2022 14:09 [facility] [place] TYPE: Observation COMPLAINT: - UPPER GI BLEED DIAGNOSES: - Contact with and (suspected) exposure to COVID-19 - Allergy status to other drugs, medicaments and biological substances - bed bug exterminator (current) use of oral hypoglycemic drugs - Hypomagnesemia - prison (current) use of insulin - Type 2 diabetes mellitus with hyperglycemia - Allergy status to other antibiotic agents - Nicotine dependence, unspecified, uncomplicated - Hyperlipidemia, unspecified - Urinary tract infection, site not specified 07/09/2022 06:20 [facility] [place] TYPE: Observation COMPLAINT: - GI BLEED DIAGNOSES: - Hematemesis - Nicotine dependence, unspecified, uncomplicated - Other nonmedicinal substance allergy status - Bipolar disorder, unspecified - Hyperlipidemia, unspecified - prison (current) use of insulin - Chronic or unspecified gastric ulcer with hemorrhage - Allergy status to other drugs, medicaments and biological substances - Nicotine dependence, cigarettes, uncomplicated - Other bed bug exterminator (current) drug therapy - Acute posthemorrhagic anemia - Hypothyroidism, unspecified - Type 2 diabetes mellitus without complications 06/15/2022 07:12 [facility] [place] TYPE: Observation COMPLAINT: - DKA DIAGNOSES: - Type 2 diabetes mellitus with hyperglycemia - Gastro-esophageal reflux disease without esophagitis - Hyperlipidemia, unspecified - Hypomagnesemia - Type 2 diabetes mellitus with ketoacidosis without coma - Other detention (current) drug therapy - Chest pain, unspecified - Contact with and (suspected) exposure to COVID-19 - Nicotine dependence, unspecified, uncomplicated - Allergy status to other drugs, medicaments and biological substances - Bipolar disorder, unspecified - Unspecified asthma, uncomplicated - prison (current) use of insulin - Anxiety disorder, unspecified - Hypothyroidism, unspecified 02/04/2022 11:[address] [facility] [place] TYPE: Medical Surgical COMPLAINT: - ACUTE GI BLEED DIAGNOSES: - Hypothyroidism, unspecified - Other specified postprocedural [...] digestive tract - Nicotine dependence, unspecified, uncomplicated - Type 2 diabetes mellitus without complications - Acute posthemorrhagic anemia - Latex allergy status - Unspecified asthma, uncomplicated - Contact with and (suspected) exposure to COVID-19 - Allergy status to other antibiotic agents - Other specified postprocedural states - Acquired absence of other specified parts of digestive tract [email or web address]
[2022-08-21 14:25] VITALS: BP 112/75
== END 2022-08-21 14:25 | disposition home or self-care (01) ==
LOC: ED 09:10
DX: R10.31 Right lower quadrant pain (principal); E11.65 Type 2 diabetes mellitus with hyperglycemia; R11.2 Nausea with vomiting, unspecified; J45.909 Unspecified asthma, uncomplicated; E78.5 Hyperlipidemia, unspecified; F17.200 Nicotine dependence, unspecified, uncomplicated; Z88.8 Allergy status to other drugs, medicaments and biological substances; Z91.048 Other nonmedicinal substance allergy status; Z79.899 Other long term (current) drug therapy; Z79.4 Long term (current) use of insulin
CPT/HCPCS: 36415; 74177; 80053; 81003; 83690; 84703; 85025; 85060; 96361; 96375; 96376; 99284-25; J1170; J1815; J2405; J7030; Q9967

== ENCOUNTER 2022-12-07 09:23 | Emergency (ER) | payer MEDICARE, OTHER ==
[~2022-12-07] VITALS: Ht 165.1 cm; Wt 75.7 kg
--- OUTSIDE RECORDS SUMMARY | ~2022-12-07 | XMS | Continuity of Care Document ---
Demographics + + + | Address | [address] | | | [place] [address] | + + + | Preferred Language | Unknown | + + + | Marital Status | Never | + + + | Buddhist Affiliation | Unknown | + + + | Race | White | + + + | Ethnic Group | Not or | + + + Author + + + | Author | [facility] | + + + | Organization | [facility] | + + + | Address | [address] | | | [place] [address] | + + + | Phone | | + + + Care Team Providers + + + + | Care French Binder Name | Role | Phone | + [...] + + + + + + | (no date) | Hives / | [facility] | (no reaction) | (no severity) | | | Urticaria | [facility]. | | | + + + + + + | (no date) | | [facility] | (no reaction) | (no severity) | | | DIPHENHYDRAMINE | Center | | | | | HCL | | | | + + + + + + | (no date) | | [facility] | (no reaction) | (no severity) | | | DIPHENHYDRAMINE | Emergency | | | | | HCL | Department | | | + + + + + + | (no date) | | [facility] | (no reaction) | (no severity) | | | DIPHENHYDRAMINE | Surgical | | | | | HCL | Specialties | | | + + + + + + | (no date) | | [facility] | (no reaction) | (no severity) | | | DIPHENHYDRAMINE | [facility] | | | | | HCL | Acute Care 7th | | | | | | Floor | | | + + + + + + | (no date) | Chantix | [facility] | (no reaction) | (no severity) | | | Starting Month | [facility] | | | | | Otilio 0.5 MG X 11 | | | | | | & 1 MG X 42 | | | | | | Oral Tablet | | | | + + + + + + | (no date) | | [facility] | (no reaction) | (no severity) | | | DIPHENHYDRAMINE | Center | | | | | HCL | | | | + + + + + + | (no date) | | [facility] | (no reaction) | (no severity) | | | DIPHENHYDRAMINE | Emergency | | | | | HCL | Department | | | + + + + + + | (no date) | | [facility] | (no reaction) | (no severity) | | | DIPHENHYDRAMINE | Surgical | | | | | HCL | Specialties | | | + + + + + + | (no date) | | [facility] | (no reaction) | (no severity) | | | DIPHENHYDRAMINE | Children's | | | | | HCL | Acute Care 7th | | | | | | Floor | | | + + + + + + | (no date) | | [facility] | (no reaction) | (no severity) | | | DIPHENHYDRAMINE | Center | | | | | HCL | | | | + + + + + + | (no date) | | [facility] | (no reaction) | (no severity) | | | DIPHENHYDRAMINE | Emergency | | | | | HCL | Department | | | + + + + + + | (no date) | | [facility] | (no reaction) | (no severity) | | | DIPHENHYDRAMINE | Surgical | | | | | HCL | Specialties | | | + + + + + + | (no date) | | [facility] | (no reaction) | (no severity) | | | DIPHENHYDRAMINE | Children's | | | | | HCL | Acute Care 7th | | | | | | Floor | | | + + + + + + | (no date) | Nausea And | [facility] | (no reaction) | (no severity) | | | Vomiting | Center | | | + + + + + + | (no date) | Nausea And | [facility] | (no reaction) | (no severity) | | | Vomiting | Emergency | | | | | | Department | | | + + + + + + | (no date) | Nausea And | [facility] | (no reaction) | (no severity) | | | Vomiting | Surgical | | | | | | Specialties | | | + + + + + + | (no date) | Nausea And | [facility] | (no reaction) | (no severity) | | | Vomiting | [facility] | | | | | | Acute Care 7th | | | | | | Floor | | | + + + + + + | (no date) | Nausea | [facility] | (no reaction) | (no severity) | | | | [facility] | | | + + + + + + | (no date) | Vomiting | [facility] | (no reaction) | (no severity) | | | | Sunday [facility] | | | + + + + + + | (no date) | PREGABALIN | [facility] | (no reaction) | (no severity) | | | | Center | | | + + + + + + | (no date) | PREGABALIN | [facility] | (no reaction) | (no severity) | | | | Emergency | | | | | | Department | | | + + + + + + | (no date) | PREGABALIN | [facility] | (no reaction) | (no severity) | | | | Surgical | | | | | | Specialties | | | + + + + + + | (no date) | PREGABALIN | [facility] | (no reaction) | (no severity) | | | | [facility] | | | | | | Acute Care 7th | | | | | | Floor | | | + + + + + + | (no date) | Pregabalin | [facility] | (no reaction) | (no severity) | | | [facility] | | | + + + + + + | (no date) | pregabalin | [facility] | (no reaction) | (no severity) | | | | [facility] | | | + + + + + + | (no date) | LAMOTRIGINE | [facility] | (no reaction) | (no severity) | | | | Center | | | + + + + + + | (no date) | LAMOTRIGINE | [facility] | (no reaction) | (no severity) | | | | Emergency | | | | | | Department | | | + + + + + + | (no date) | LAMOTRIGINE | [facility] | (no reaction) | (no severity) | | | | Surgical | | | | | | Specialties | | | + + + + + + | (no date) | LAMOTRIGINE | [facility] | (no reaction) | (no severity) | | | | [facility] | | | | | | Acute Care 7th | | | | | | Floor | | | + + + + + + | (no date) | Lamictal | [facility] | (no reaction) | (no severity) | | | | [facility] | | | + + + + + + | (no date) | LAMOTRIGINE | [facility] | (no reaction) | (no severity) | | | | Center | | | + + + + + + | (no date) | LAMOTRIGINE | [facility] | (no reaction) | (no severity) | | | | Emergency | | | | | | Department | | | + + + + + + | (no date) | LAMOTRIGINE | [facility] | (no reaction) | (no severity) | | | | Surgical | | | | | | Specialties | | | + + + + + + | (no date) | LAMOTRIGINE | [facility] | (no reaction) | (no severity) | | | | [facility] | | | | | | Acute Care 7th | | | | | | Floor | | | + + + + + + | (no date) | | [facility] | (no reaction) | (no severity) | | | DIPHENHYDRAMINE | Center | | | | | HCL | | | | + + + + + + | (no date) | | [facility] | (no reaction) | (no severity) | | | DIPHENHYDRAMINE | Emergency | | | | | HCL | Department | | | + + + + + + | (no date) | | [facility] | (no reaction) | (no severity) | | | DIPHENHYDRAMINE | Surgical | | | | | HCL | Specialties | | | + + + + + + | (no date) | | [facility] | (no reaction) | (no severity) | | | DIPHENHYDRAMINE | [facility] | | | | | HCL | Acute Care 7th | | | | | | Floor | | | + + + + + + | (no date) | | [facility] | (no reaction) | (no severity) | | | DIPHENHYDRAMINE | Center | | | | | HCL | | | | + + + + + + | (no date) | | [facility] | (no reaction) | (no severity) | | | DIPHENHYDRAMINE | Emergency | | | | | HCL | Department | | | + + + + + + | (no date) | | [facility] | (no reaction) | (no severity) | | | DIPHENHYDRAMINE | Surgical | | | | | HCL | Specialties | | | + + + + + + | (no date) | | [facility] | (no reaction) | (no severity) | | | DIPHENHYDRAMINE | [facility] | | | | | HCL | Acute Care 7th | | | | | | Floor | | | + + + + + + | (no date) | | [facility] | (no reaction) | (no severity) | | | DIPHENHYDRAMINE | Center | | | | | HCL | | | | + + + + + + | (no date) | | [facility] | (no reaction) | (no severity) | | | DIPHENHYDRAMINE | Emergency | | | | | HCL | Department | | | + + + + + + | (no date) | | [facility] | (no reaction) | (no severity) | | | DIPHENHYDRAMINE | Surgical | | | | | HCL | Specialties | | | + + + + + + | (no date) | | [facility] | (no reaction) | (no severity) | | | DIPHENHYDRAMINE | [facility] | | | | | HCL | Acute Care 7th | | | | | | Floor | | | + + + + + + | (no date) | | [facility] | (no reaction) | (no severity) | | | DIPHENHYDRAMINE | Center | | | | | HCL | | | | + + + + + + | (no date) | | [facility] | (no reaction) | (no severity) | | | DIPHENHYDRAMINE | Emergency | | | | | HCL | Department | | | + + + + + + | (no date) | | [facility] | (no reaction) | (no severity) | | | DIPHENHYDRAMINE | Surgical | | | | | HCL | Specialties | | | + + + + + + | (no date) | | [facility] | (no reaction) | (no severity) | | | DIPHENHYDRAMINE | [facility] | | | | | HCL | Acute Care 7th | | | | | | Floor | | | + + + + + + | (no date) | | [facility] | (no reaction) | (no severity) | | | DIPHENHYDRAMINE | Center | | | | | HCL | | | | + + + + + + | (no date) | | [facility] | (no reaction) | (no severity) | | | DIPHENHYDRAMINE | Emergency | | | | | HCL | Department | | | + + + + + + | (no date) | | [facility] | (no reaction) | (no severity) | | | DIPHENHYDRAMINE | Surgical | | | | | HCL | Specialties | | | + + + + + + | (no date) | | [facility] | (no reaction) | (no severity) | | | DIPHENHYDRAMINE | [facility] | | | | | HCL | Acute Care 7th | | | | | | Floor | | | + + + + + + | (no date) | | [facility] | (no reaction) | (no severity) | | | DIPHENHYDRAMINE | Center | | | | | HCL | | | | + + + + + + | (no date) | | [facility] | (no reaction) | (no severity) | | | DIPHENHYDRAMINE | Emergency | | | | | HCL | Department | | | + + + + + + | (no date) | | [facility] | (no reaction) | (no severity) | | | DIPHENHYDRAMINE | Surgical | | | | | HCL | Specialties | | | + + + + + + | (no date) | | [facility] | (no reaction) | (no severity) | | | DIPHENHYDRAMINE | [facility] | | | | | HCL | Acute Care 7th | | | | | | Floor | | | + + + + + + | (no date) | | [facility] | (no reaction) | (no severity) | | | DIPHENHYDRAMINE | Center | | | | | HCL | | | | + + + + + + | (no date) | | [facility] | (no reaction) | (no severity) | | | DIPHENHYDRAMINE | Emergency | | | | | HCL | Department | | | + + + + + + | (no date) | | [facility] | (no reaction) | (no severity) | | | DIPHENHYDRAMINE | Surgical | | | | | HCL | Specialties | | | + + + + + + | (no date) | | [facility] | (no reaction) | (no severity) | | | DIPHENHYDRAMINE | [facility] | | | | | HCL | Acute Care 7th | | | | | | Floor | | | + + + + + + | (no date) | | [facility] | (no reaction) | (no severity) | | | DIPHENHYDRAMINE | Center | | | | | HCL | | | | + + + + + + | (no date) | | [facility] | (no reaction) | (no severity) | | | DIPHENHYDRAMINE | Emergency | | | | | HCL | Department | | | + + + + + + | (no date) | | [facility] | (no reaction) | (no severity) | | | DIPHENHYDRAMINE | Surgical | | | | | HCL | Specialties | | | + + + + + + | (no date) | | [facility] | (no reaction) | (no severity) | | | DIPHENHYDRAMINE | [facility] | | | | | HCL | Acute Care 7th | | | | | | Floor | | | + + + + + + | (no date) | | [facility] | (no reaction) | (no severity) | | | DIPHENHYDRAMINE | Center | | | | | HCL | | | | + + + + + + | (no date) | | [facility] | (no reaction) | (no severity) | | | DIPHENHYDRAMINE | Emergency | | | | | HCL | Department | | | + + + + + + | (no date) | | [facility] | (no reaction) | (no severity) | | | DIPHENHYDRAMINE | Surgical | | | | | HCL | Specialties | | | + + + + + + | (no date) | | [facility] | (no reaction) | (no severity) | | | DIPHENHYDRAMINE | [facility] | | | | | HCL | Acute Care 7th | | | | | | Floor | | | + + + + + + | (no date) | | [facility] | (no reaction) | (no severity) | | | DIPHENHYDRAMINE | Center | | | | | HCL | | | | + + + + + + | (no date) | | [facility] | (no reaction) | (no severity) | | | DIPHENHYDRAMINE | Emergency | | | | | HCL | Department | | | + + + + + + | (no date) | | [facility] | (no reaction) | (no severity) | | | DIPHENHYDRAMINE | Surgical | | | | | HCL | Specialties | | | + + + + + + | (no date) | | [facility] | (no reaction) | (no severity) | | | DIPHENHYDRAMINE | [facility] | | | | | HCL | Acute Care 7th | | | | | | Floor | | | + + + + + + | (no date) | | [facility] | (no reaction) | (no severity) | | | DIPHENHYDRAMINE | Center | | | | | HCL | | | | + + + + + + | (no date) | | [facility] | (no reaction) | (no severity) | | | DIPHENHYDRAMINE | Emergency | | | | | HCL | Department | | | + + + + + + | (no date) | | [facility] | (no reaction) | (no severity) | | | DIPHENHYDRAMINE | Surgical | | | | | HCL | Specialties | | | + + + + + + | (no date) | | [facility] | (no reaction) | (no severity) | | | DIPHENHYDRAMINE | [facility] | | | | | HCL | Acute Care 7th | | | | | | Floor | | | + + + + + + | (no date) | | [facility] | (no reaction) | (no severity) | | | DIPHENHYDRAMINE | Center | | | | | HCL | | | | + + + + + + | (no date) | | [facility] | (no reaction) | (no severity) | | | DIPHENHYDRAMINE | Emergency | | | | | HCL | Department | | | + + + + + + | (no date) | | [facility] | (no reaction) | (no severity) | | | DIPHENHYDRAMINE | Surgical | | | | | HCL | Specialties | | | + + + + + + | (no date) | | [facility] | (no reaction) | (no severity) | | | DIPHENHYDRAMINE | [facility] | | | | | HCL | Acute Care 7th | | | | | | Floor | | | + + + + + + | (no date) | | [facility] | (no reaction) | (no severity) | | | DIPHENHYDRAMINE | Center | | | | | HCL | | | | + + + + + + | (no date) | | [facility] | (no reaction) | (no severity) | | | DIPHENHYDRAMINE | Emergency | | | | | HCL | Department | | | + + + + + + | (no date) | | [facility] | (no reaction) | (no severity) | | | DIPHENHYDRAMINE | Surgical | | | | | HCL | Specialties | | | + + + + + + | (no date) | | [facility] | (no reaction) | (no severity) | | | DIPHENHYDRAMINE | [facility] | | | | | HCL | Acute Care 7th | | | | | | Floor | | | + + + + + + | (no date) | | [facility] | (no reaction) | (no severity) | | | DIPHENHYDRAMINE | Center | | | | | HCL | | | | + + + + + + | (no date) | | [facility] | (no reaction) | (no severity) | | | DIPHENHYDRAMINE | Emergency | | | | | HCL | Department | | | + + + + + + | (no date) | | [facility] | (no reaction) | (no severity) | | | DIPHENHYDRAMINE | Surgical | | | | | HCL | Specialties | | | + + + + + + | (no date) | | [facility] | (no reaction) | (no severity) | | | DIPHENHYDRAMINE | [facility] | | | | | HCL | Acute Care 7th | | | | | | Floor | | | + + + + + + | (no date) | | [facility] | (no reaction) | (no severity) | | | DIPHENHYDRAMINE | Center | | | | | HCL | | | | + + + + + + | (no date) | | [facility] | (no reaction) | (no severity) | | | DIPHENHYDRAMINE | Emergency | | | | | HCL | Department | | | + + + + + + | (no date) | | [facility] | (no reaction) | (no severity) | | | DIPHENHYDRAMINE | Surgical | | | | | HCL | Specialties | | | + + + + + + | (no date) | | [facility] | (no reaction) | (no severity) | | | DIPHENHYDRAMINE | [facility] | | | | | HCL | Acute Care 7th | | | | | | Floor | | | + + + + + + | (no date) | | [facility] | (no reaction) | (no severity) | | | DIPHENHYDRAMINE | Center | | | | | HCL | | | | + + + + + + | (no date) | | [facility] | (no reaction) | (no severity) | | | DIPHENHYDRAMINE | Emergency | | | | | HCL | Department | | | + + + + + + | (no date) | | [facility] | (no reaction) | (no severity) | | | DIPHENHYDRAMINE | Surgical | | | | | HCL | Specialties | | | + + + + + + | (no date) | | [facility] | (no reaction) | (no severity) | | | DIPHENHYDRAMINE | [facility] | | | | | HCL | Acute Care 7th | | | | | | Floor | | | + + + + + + | (no date) | Hives | [facility] | (no reaction) | (no severity) | | | | [facility] | | | + + + + + + | (no date) | Mild | [facility] | (no reaction) | (no severity) | | | | [facility] | | | + + + + + + | (no date) | Mild | [facility] | (no reaction) | (no severity) | | | | Center | | | + + + + + + | (no date) | Mild | [facility] | (no reaction) | (no severity) | | | | Emergency | | | | | | Department | | | + + + + + + | (no date) | Mild | [facility] | (no reaction) | (no severity) | | | | Surgical | | | | | | Specialties | | | + + + + + + | (no date) | Mild | [facility] | (no reaction) | (no severity) | | | | [facility] | | | | | | Acute Care 7th | | | | | | Floor | | | + + + + + + | (no date) | | [facility] | (no reaction) | (no severity) | | | DIPHENHYDRAMINE | Center | | | | | HCL | | | | + + + + + + | (no date) | | [facility] | (no reaction) | (no severity) | | | DIPHENHYDRAMINE | Emergency | | | | | HCL | Department | | | + + + + + + | (no date) | | [facility] | (no reaction) | (no severity) | | | DIPHENHYDRAMINE | Surgical | | | | | HCL | Specialties | | | + + + + + + | (no date) | | [facility] | (no reaction) | (no severity) | | | DIPHENHYDRAMINE | [facility] | | | | | HCL | Acute Care 7th | | | | | | Floor | | | + + + + + + | (no date) | | [facility] | (no reaction) | (no severity) | | | Diphenhydramine | [facility] | | | + + + + + + | (no date) | Benadryl 50 | [facility] | (no reaction) | (no severity) | | | MG/ML Injection | [facility] | | | | | Solution | | | | + + + + + + | (no date) | Rash | [facility] | (no reaction) | (no severity) | | | | [facility] | | | + + + + + + | (no date) | Rash | [facility] | (no reaction) | (no severity) | | | | Center | | | + + + + + + | (no date) | Rash | [facility] | (no reaction) | (no severity) | | | | Emergency | | | | | | Department | | | + + + + + + | (no date) | Rash | [facility] | (no reaction) | (no severity) | | | | Surgical | | | | | | Specialties | | | + + + + + + | (no date) | Rash | [facility] | (no reaction) | (no severity) | | | | [facility] | | | | | | Acute Care 7th | | | | | | Floor | | | + + + + + + | (no date) | Skin Rashes / | [facility] | (no reaction) | (no severity) | | | Eruption of | [facility] | | | | | skin | | | | + + + + + + | (no date) | Skin Rashes | [facility] | (no reaction) | (no severity) | | | | [facility] | | | + + + + + + | (no date) | LAMOTRIGINE | [facility] | (no reaction) | (no severity) | | | | Center | | | + + + + + + | (no date) | LAMOTRIGINE | [facility] | (no reaction) | (no severity) | | | | Emergency | | | | | | Department | | | + + + + + + | (no date) | LAMOTRIGINE | [facility] | (no reaction) | (no severity) | | | | Surgical | | | | | | Specialties | | | + + + + + + | (no date) | LAMOTRIGINE | [facility] | (no reaction) | (no severity) | | | | [facility] | | | | | | Acute Care 7th | | | | | | Floor | | | + + + + + + | (no date) | Lamotrigine | [facility] | (no reaction) | (no severity) | | | | [facility] | | | + + + + + + | (no date) | lamotrigine | [facility] | (no reaction) | (no severity) | | | | [facility] | | | + + + + + + | (no date) | | [facility] | (no reaction) | (no severity) | | | DIPHENHYDRAMINE | Center | | | | | HCL | | | | + + + + + + | (no date) | | [facility] | (no reaction) | (no severity) | | | DIPHENHYDRAMINE | Emergency | | | | | HCL | Department | | | + + + + + + | (no date) | | [facility] | (no reaction) | (no severity) | | | DIPHENHYDRAMINE | Surgical | | | | | HCL | Specialties | | | + + + + + + | (no date) | | [facility] | (no reaction) | (no severity) | | | DIPHENHYDRAMINE | [facility] | | | | | HCL | Acute Care 7th | | | | | | Floor | | | + + + + + + | (no date) | | [facility] | (no reaction) | (no severity) | | | Diphenhydramine | [facility] | | | + + + + + + | (no date) | | [facility] | (no reaction) | (no severity) | | | diphenhydramine | [facility] | | | + + + + + + | (no date) | [address] | [facility] | (no reaction) | (no severity) | | | MG Oral Tablet | [facility] | | | + + + + + + | (no date) | Lamotrigine | [facility] | (no reaction) | (no severity) | | | | [facility] | | | + + + + + + | (no date) | Anaphylaxis | [facility] | (no reaction) | (no severity) | | | | Center | | | + + + + + + | (no date) | Anaphylaxis | [facility] | (no reaction) | (no severity) | | | | Emergency | | | | | | Department | | | + + + + + + | (no date) | Anaphylaxis | [facility] | (no reaction) | (no severity) | | | | Surgical | | | | | | Specialties | | | + + + + + + | (no date) | Anaphylaxis | [facility] | (no reaction) | (no severity) | | | | [facility] | | | | | | Acute Care 7th | | | | | | Floor | | | + + + + + + | (no date) | Pregabalin | [facility] | (no reaction) | (no severity) | | | | [facility] | | | + + + + + + | (no date) | ADHESIVE | [facility] | (no reaction) | (no severity) | | | | Center | | | + + + + + + | (no date) | ADHESIVE | [facility] | (no reaction) | (no severity) | | | | Emergency | | | | | | Department | | | + + + + + + | (no date) | ADHESIVE | [facility] | (no reaction) | (no severity) | | | | Surgical | | | | | | Specialties | | | + + + + + + | (no date) | ADHESIVE | [facility] | (no reaction) | (no severity) | | | | [facility] | | | | | | Acute Care 7th | | | | | | Floor | | | + + + + + + | (no date) | Varenicline | [facility] | (no reaction) | (no severity) | | | | [facility] | | | + + + + + + | (no date) | Vomiting | [facility] | (no reaction) | (no severity) | | | | [facility] | | | + + + + + + | (no date) | Vomiting | [facility] | (no reaction) | (no severity) | | | | [facility] | | | + + + + + + | (no date) | Nausea | [facility] | (no reaction) | (no severity) | | | | [facility] | | | + + + + + + | (no date) | Adhesive | [facility] | (no reaction) | (no severity) | | | Bandages | [facility] | | | | | Miscellaneous | | | | + + + + + + | (no date) | PREGABALIN | [facility] | (no reaction) | (no severity) | | | | Center | | | + + + + + + | (no date) | PREGABALIN | [facility] | (no reaction) | (no severity) | | | | Emergency | | | | | | Department | | | + + + + + + | (no date) | PREGABALIN | [facility] | (no reaction) | (no severity) | | | | Surgical | | | | | | Specialties | | | + + + + + + | (no date) | PREGABALIN | [facility] | (no reaction) | (no severity) | | | | [facility] | | | | | | Acute Care 7th | | | | | | Floor | | | + + + + + + | (no date) | Pregabalin | [facility] | (no reaction) | (no severity) | | | | [facility] | | | + + + + + + | (no date) | Varenicline | [facility] | (no reaction) | (no severity) | | | | [facility] | | | + + + + + + | (no date) | varenicline | [facility] | (no reaction) | (no severity) | | | | [facility] | | | + + + + + + | (no date) | Lyrica | [facility] | (no reaction) | (no severity) | | | | [facility] | | | + + + + + + | (no date) | PREGABALIN | [facility] | (no reaction) | (no severity) | | | | Center | | | + + + + + + | (no date) | PREGABALIN | [facility] | (no reaction) | (no severity) | | | | Emergency | | | | | | Department | | | + + + + + + | (no date) | PREGABALIN | [facility] | (no reaction) | (no severity) | | | | Surgical | | | | | | Specialties | | | + + + + + + | (no date) | PREGABALIN | [facility] | (no reaction) | (no severity) | | | | [facility] | | | | | | Acute Care 7th | | | | | | Floor | | | + + + + + + | (no date) | Chantix | [facility] | (no reaction) | (no severity) | | | | [facility] | | | + + + + + + | (no date) | | [facility] | (no reaction) | (no severity) | | | Diphenhydramine | [facility] | | | + + + + + + | (no date) | Lyrica 75 MG | [facility] | (no reaction) | (no severity) | | | Oral Capsule | [facility] | | | + + + + + + | (no date) | adhesive tape | [facility] | (no reaction) | (no severity) | + + + + + + | (no date) | lamotrigine | [facility] | (no reaction) | (no severity) | + + + + + + | (no date) | | [facility] | (no reaction) | (no severity) | | | diphenhydramine | | | | | | | | | | + + + + + + | (no date) | pregabalin | [facility] | (no reaction) | (no severity) | + + + + + + | (no date) | varenicline | [facility] | (no reaction) | (no severity) | + + + + + + | (no date) | ADHESIVE | [facility] | (no reaction) | (no severity) | | [facility] | | | + + + + + + | (no date) | | [facility] | (no reaction) | (no severity) | | | DIPHENHYDRAMINE | [facility] | | | | | [facility] | Hospital | | | + + + + + + | (no date) | PREGABALIN | [facility] | (no reaction) | (no severity) | | | | [facility] | | | | | | Hospital | | | + + + + + + | (no date) | SOAP | [facility] | (no reaction) | (no severity) | | | | [facility] | | | | | | Hospital | | | + + + + + + | (no date) | LAMOTRIGINE | [facility] | (no reaction) | (no severity) | | | | Center | | | + + + + + + | (no date) | LAMOTRIGINE | [facility] | (no reaction) | (no severity) | | | | Emergency | | | | | | Department | | | + + + + + + | (no date) | LAMOTRIGINE | [facility] | (no reaction) | (no severity) | | | | Surgical | | | | | | Specialties | | | + + + + + + | (no date) | LAMOTRIGINE | [facility] | (no reaction) | (no severity) | | | | Children's | | | | | | Acute Care 7th | | | | | | Floor | | | + + + + + + | (no date) | Lamotrigine | [facility] | (no reaction) | (no severity) | | | | [facility] | | | + + + + + + | (no date) | Varenicline | [facility] | (no reaction) | (no severity) | | | | [facility] | | | + + + + + + Encounters No information. Functional Status No information. Immunizations + + + + | date | description | facility | + + + + | 2020-02-13 00:00 | TARIEleazar Srini 6 mo-63 yrs | [facility] | | | Quadrivalent | | + + + + Medications + + + + | date | description | facility | + + + + | 2021-07-24 00:00 | lidocaine hydrochloride | [facility] | | | 0.02 mg/mg topical gel | Care [address] Floor | + + + + | 2021-10-05 00:00 | lidocaine hydrochloride | [facility] | | | 0.02 mg/mg topical gel | Care [address] | + + + + | 2022-07-11 00:00 | CETIRIZINE HCL | [facility] | + + + + | 2022-07-14 00:00 | CETIRIZINE HCL | [facility] | + + + + | 2022-07-22 00:00 | CETIRIZINE HCL | [facility] | + + + + | 2022-07-24 00:00 | CETIRIZINE HCL | [facility] | + + + + | 2022-07-27 00:00 | CETIRIZINE HCL | [facility] | + + + + | 2022-07-29 00:00 | CETIRIZINE HCL | [facility] | + + + + | 2022-07-31 00:00 | CETIRIZINE HCL | [facility] | + + + + | 2022-08-05 00:00 | CETIRIZINE HCL | [facility] | + + + + | 2022-08-13 00:00 | CETIRIZINE HCL | [facility] | + + + + | 2022-08-21 00:00 | CETIRIZINE HCL | [facility] | + + + + | 2022-08-31 00:00 | CETIRIZINE HCL | [facility] | + + + + | 2022-12-05 00:00 | CETIRIZINE HCL | [facility] | + + + + | 2020-01-21 00:00 | hydrOXYzine HCl 50 MG Oral | [facility] | | | Tablet | | + + + + | 2020-12-03 00:00 | lurasidone hydrochloride | [facility] | | | 40 MG Oral Tablet [Latuda] | | + + + + | 2021-11-14 00:00 | ONDANSETRON | [facility] | + + + + | 2021-12-03 00:00 | ONDANSETRON | [facility] | + + + + | 2021-12-30 00:00 | ONDANSETRON | [facility] | + + + + | 2022-01-12 00:00 | ONDANSETRON | [facility] | + + + + | 2022-02-02 00:00 | ONDANSETRON | [facility] | + + + + | 2022-02-06 00:00 | ONDANSETRON | [facility] | + + + + | 2022-02-09 00:00 | ONDANSETRON | [facility] | + + + + | 2022-02-19 00:00 | ONDANSETRON | [facility] | + + + + | 2022-02-28 00:00 | ONDANSETRON | [facility] | + + + + | 2022-04-12 00:00 | ONDANSETRON | [facility] | + + + + | 2022-04-12 00:00 | ONDANSETRON | [facility] | + + + + | 2022-04-19 00:00 | ONDANSETRON | [facility] | + + + + | 2022-06-08 00:00 | ONDANSETRON | [facility] | + + + + | 2022-06-16 00:00 | ONDANSETRON | [facility] | + + + + | 2022-06-19 00:00 | ONDANSETRON | [facility] | + + + + | 2022-07-08 00:00 | ONDANSETRON | [facility] | + + + + | 2022-07-11 00:00 | ONDANSETRON | [facility] | + + + + | 2022-07-14 00:00 | ONDANSETRON | [facility] | + + + + | 2022-07-22 00:00 | ONDANSETRON | [facility] | + + + + | 2022-07-24 00:00 | ONDANSETRON | [facility] | + + + + | 2022-07-27 00:00 | ONDANSETRON | [facility] | + + + + | 2022-07-29 00:00 | ONDANSETRON | [facility] | + + + + | 2022-07-31 00:00 | ONDANSETRON | [facility] | + + + + | 2022-08-05 00:00 | ONDANSETRON | [facility] | + + + + | 2022-08-13 00:00 | ONDANSETRON | [facility] | + + + + | 2022-08-21 00:00 | ONDANSETRON | [facility] | + + + + | 2022-08-31 00:00 | ONDANSETRON | [facility] | + + + + | 2022-12-05 00:00 | ONDANSETRON | [facility] | + + + + | 2021-03-16 00:00 | ondansetron (as | [facility] | | | ondansetron hcl) 4 mg | | | | disintegrating oral tablet | | + + + + | 2020-01-25 00:00 | ondansetron 4 MG | [facility] | | | Disintegrating Oral Tablet | | + + + + | 2020-07-16 00:00 | ondansetron 4 MG | [facility] | | | Disintegrating Oral Tablet | | + + + + | 2021-02-12 00:00 | ondansetron 4 MG | [facility] | | | Disintegrating Oral Tablet | | + + + + | 2021-11-14 00:00 | ONDANSETRON HCL | [facility] | + + + + | 2021-12-03 00:00 | ONDANSETRON HCL | [facility] | + + + + | 2021-12-30 00:00 | ONDANSETRON HCL | [facility] | + + + + | 2022-01-12 00:00 | ONDANSETRON HCL | [facility] | + + + + | 2022-02-02 00:00 | ONDANSETRON HCL | [facility] | + + + + | 2022-02-06 00:00 | ONDANSETRON HCL | [facility] | + + + + | 2022-02-09 00:00 | ONDANSETRON HCL | [facility] | + + + + | 2022-02-19 00:00 | ONDANSETRON HCL | [facility] | + + + + | 2022-02-28 00:00 | ONDANSETRON HCL | [facility] | + + + + | 2022-04-12 00:00 | ONDANSETRON HCL | [facility] | + + + + | 2022-04-19 00:00 | ONDANSETRON HCL | [facility] | + + + + | 2022-06-08 00:00 | ONDANSETRON HCL | [facility] | + + + + | 2022-06-16 00:00 | ONDANSETRON HCL | [facility] | + + + + | 2022-06-19 00:00 | ONDANSETRON HCL | [facility] | + + + + | 2022-07-08 00:00 | ONDANSETRON HCL | [facility] | + + + + | 2022-07-11 00:00 | ONDANSETRON HCL | [facility] | + + + + | 2022-07-14 00:00 | ONDANSETRON HCL | [facility] | + + + + | 2022-07-22 00:00 | ONDANSETRON HCL | [facility] | + + + + | 2022-07-24 00:00 | ONDANSETRON HCL | [facility] | + + + + | 2022-07-27 00:00 | ONDANSETRON HCL | [facility] | + + + + | 2022-07-29 00:00 | ONDANSETRON HCL | [facility] | + + + + | 2022-07-31 00:00 | ONDANSETRON HCL | [facility] | + + + + | 2022-08-05 00:00 | ONDANSETRON HCL | [facility] | + + + + | 2022-08-13 00:00 | ONDANSETRON HCL | [facility] | + + + + | 2022-08-21 00:00 | ONDANSETRON HCL | [facility] | + + + + | 2022-08-31 00:00 | ONDANSETRON HCL | [facility] | + + + + | 2022-12-05 00:00 | ONDANSETRON HCL | [facility] | + + + + | 2019-06-23 00:00 | ONDANSETRON HCL | [facility] | + + + + | 2019-06-23 00:00 | ONDANSETRON HCL | [facility] | + + + + | 2019-06-23 00:00 | ONDANSETRON HCL | [facility] | + + + + | 2019-06-23 00:00 | ONDANSETRON HCL | [facility] | + + + + | 2021-08-15 00:00 | OXYCODONE | [facility] | | | HCL/ACETAMINOPHEN | | + + + + | 2021-07-24 00:00 | oxycodone hcl 5 mg oral | [facility] | | | tablet | Care 7[facility] Floor | + + + + | 2021-07-25 00:00 | oxycodone hcl 5 mg oral | [facility] | | | tablet | Care 7[facility] Floor | + + + + | 2021-07-28 00:00 | oxycodone hcl 5 mg oral | [facility] | | | tablet | Specialties | + + + + | 2022-02-23 00:00 | oxycodone hydrochloride 5 | [facility] | | | MG Oral Tablet | | + + + + | 2022-02-02 00:00 | OXYCODONE | [facility] | | | HCL/ACETAMINOPHEN | | + + + + | 2022-02-02 00:00 | OXYCODONE | [facility] | | | HCL/ACETAMINOPHEN | | + + + + | 2021-10-05 00:00 | magnesium citrate 1.745 gm | [facility] | | | in 1 fl oz oral solution | Specialties | + + + + | 2021-11-14 00:00 | DOCUSATE SODIUM | [facility] | + + + + | 2021-12-03 00:00 | DOCUSATE SODIUM | [facility] | + + + + | 2021-12-30 00:00 | DOCUSATE SODIUM | [facility] | + + + + | 2022-01-12 00:00 | DOCUSATE SODIUM | [facility] | + + + + | 2022-02-02 00:00 | DOCUSATE SODIUM | [facility] | + + + + | 2022-02-06 00:00 | DOCUSATE SODIUM | [facility] | + + + + | 2022-02-09 00:00 | DOCUSATE SODIUM | [facility] | + + + + | 2022-02-19 00:00 | DOCUSATE SODIUM | [facility] | + + + + | 2022-02-28 00:00 | DOCUSATE SODIUM | [facility] | + + + + | 2022-04-12 00:00 | DOCUSATE SODIUM | [facility] | + + + + | 2022-04-19 00:00 | DOCUSATE SODIUM | [facility] | + + + + | 2022-06-08 00:00 | DOCUSATE SODIUM | [facility] | + + + + | 2022-06-16 00:00 | DOCUSATE SODIUM | [facility] | + + + + | 2022-06-19 00:00 | DOCUSATE SODIUM | [facility] | + + + + | 2022-07-08 00:00 | DOCUSATE SODIUM | [facility] | + + + + | 2022-07-11 00:00 | DOCUSATE SODIUM | [facility] | + + + + | 2022-07-14 00:00 | DOCUSATE SODIUM | [facility] | + + + + | 2022-07-22 00:00 | DOCUSATE SODIUM | [facility] | + + + + | 2022-07-24 00:00 | DOCUSATE SODIUM | [facility] | + + + + | 2022-07-27 00:00 | DOCUSATE SODIUM | [facility] | + + + + | 2022-07-29 00:00 | DOCUSATE SODIUM | [facility] | + + + + | 2022-07-31 00:00 | DOCUSATE SODIUM | [facility] | + + + + | 2022-08-05 00:00 | DOCUSATE SODIUM | [facility] | + + + + | 2022-08-13 00:00 | DOCUSATE SODIUM | [facility] | + + + + | 2022-08-21 00:00 | DOCUSATE SODIUM | [facility] | + + + + | 2022-08-31 00:00 | DOCUSATE SODIUM | [facility] | + + + + | 2022-12-05 00:00 | DOCUSATE SODIUM | [facility] | + + + + | 2021-08-15 00:00 | DOCUSATE SODIUM | [facility] | + + + + | 2021-08-15 00:00 | DOCUSATE SODIUM | [facility] | + + + + | 2021-08-15 00:00 | DOCUSATE SODIUM | [facility] | + + + + | 2021-08-15 00:00 | DOCUSATE SODIUM | [facility] | + + + + | 2021-11-14 00:00 | DOCUSATE SODIUM | [facility] | + + + + | 2021-12-03 00:00 | DOCUSATE SODIUM | [facility] | + + + + | 2021-12-30 00:00 | DOCUSATE SODIUM | [facility] | + + + + | 2022-01-12 00:00 | DOCUSATE SODIUM | [facility] | + + + + | 2022-02-02 00:00 | DOCUSATE SODIUM | [facility] | + + + + | 2022-02-06 00:00 | DOCUSATE SODIUM | [facility] | + + + + | 2022-02-09 00:00 | DOCUSATE SODIUM | [facility] | + + + + | 2022-02-19 00:00 | DOCUSATE SODIUM | [facility] | + + + + 2022-02-28 00:00 | DOCUSATE SODIUM | [facility] | + + + + | 2022-04-12 00:00 | DOCUSATE SODIUM | [facility] | + + + + | 2022-04-19 00:00 | DOCUSATE SODIUM | [facility] | + + + + | 2022-06-08 00:00 | DOCUSATE SODIUM | [facility] | + + + + | 2022-06-16 00:00 | DOCUSATE SODIUM | [facility] | + + + + | 2022-06-19 00:00 | DOCUSATE SODIUM | [facility] | + + + + | 2022-07-08 00:00 | DOCUSATE SODIUM | [facility] | + + + + | 2022-07-11 00:00 | DOCUSATE SODIUM | [facility] | + + + + | 2022-07-14 00:00 | DOCUSATE SODIUM | [facility] | + + + + | 2022-07-22 00:00 | DOCUSATE SODIUM | [facility] | + + + + | 2022-07-24 00:00 | DOCUSATE SODIUM | [facility] | + + + + | 2022-07-27 00:00 | DOCUSATE SODIUM | [facility] | + + + + | 2022-07-29 00:00 | DOCUSATE SODIUM | [facility] | + + + + | 2022-07-31 00:00 | DOCUSATE SODIUM | [facility] | + + + + | 2022-08-05 00:00 | DOCUSATE SODIUM | [facility] | + + + + | 2022-08-13 00:00 | DOCUSATE SODIUM | [facility] | + + + + | 2022-08-21 00:00 | DOCUSATE SODIUM | [facility] | + + + + | 2022-08-31 00:00 | DOCUSATE SODIUM | [facility] | + + + + | 2022-12-05 00:00 | DOCUSATE SODIUM | [facility] | + + + + | 2021-07-27 00:00 | docusate sodium 100 mg | [facility] | | | oral capsule | Department | + + + + | 2021-07-27 00:00 | docusate sodium 100 mg | [facility] | | | oral capsule | Specialties | + + + + | 2021-07-27 00:00 | docusate sodium 100 mg | [facility] | | | oral capsule | Care 7th Floor | + + + + | 2021-10-05 00:00 | docusate sodium 100 mg | [facility] | | | oral capsule | | + + + + | 2021-10-05 00:00 | docusate sodium 100 mg | [facility] | | | oral capsule | Care [facility] Floor | + + + + | 2021-09-21 00:00 | Amitriptyline HCl 25 MG | [facility] | | | Oral Tablet | | + + + + | 2020-01-25 00:00 | Levothyroxine Sodium 100 | [facility] | | | MCG Oral Tablet | | + + + + | 2021-02-12 00:00 | Levothyroxine Sodium 100 | [facility] | | | MCG Oral Tablet | | + + + + | 2021-09-21 00:00 | Levothyroxine Sodium 100 | [facility] | | | MCG Oral Tablet | | + + + + | 2020-04-24 00:00 | Fenofibrate 120 MG Oral | [facility] | | | Tablet | | + + + + | 2021-02-12 00:00 | Fenofibrate 120 MG Oral | [facility] | | | Tablet | | + + + + | 2021-09-21 00:00 | Fenofibrate 120 MG Oral | [facility] | | | Tablet | | + + + + | 2020-01-25 00:00 | DOK 100 MG Oral Tablet | [facility] | | | | | + + + + | 2020-01-25 00:00 | Pulmicort Flexhaler 90 | [facility] | | | MCG/ACT Inhalation Aerosol | | | | Powder Breath Activated | | + + + + | 2020-05-26 00:00 | Pulmicort Flexhaler 90 | [facility] | | | MCG/ACT Inhalation Aerosol | | | | Powder Breath Activated | | + + + + | 2020-12-10 00:00 | Pulmicort Flexhaler 90 | [facility] | | | MCG/ACT Inhalation Aerosol | | | | Powder Breath Activated | | + + + + | 2020-12-30 00:00 | Pulmicort Flexhaler 90 | [facility] | | | MCG/ACT Inhalation Aerosol | | | | Powder Breath Activated | | + + + + | 2021-02-12 00:00 | Pulmicort Flexhaler 90 | [facility] | | | MCG/ACT Inhalation Aerosol | | | | Powder Breath Activated | | + + + + | 2021-07-30 00:00 | 0.5 ml hydromorphone | [facility] | | | hydrochloride 1 mg/ml | Specialties | | | prefilled syringe | | + + + + | 2020-01-25 00:00 | Creon [id number] UNIT | [facility] | | | Oral Capsule Delayed | | | | Release Particles | | + + + + | 2021-02-12 00:00 | Creon [id number] UNIT | [facility] | | | Oral Capsule Delayed | | | | Release Particles | | + + + + | 2021-09-21 00:00 | Creon [id number] UNIT | [facility] | | | Oral Capsule Delayed | | | | Release Particles | | + + + + | 2020-04-28 00:00 | Chantix Starting Month Otilio | [facility] | | | 0.5 MG X 11 & 1 MG X 42 | | | | Oral Tablet | | + + + + | 2021-09-21 00:00 | Chantix Starting Month | [facility] | | | 0.5 MG X 11 & 1 MG X 42 | | | | Oral Tablet | | + + + + | 2020-01-25 00:00 | docusate sodium 100 MG | [facility] | | | Oral Tablet [DOK] | | + + + + | 2020-07-16 00:00 | topiramate 100 MG Oral | [facility] | | | Tablet [Topamax] | | + + + + | 2020-12-17 00:00 | meloxicam 15 MG Oral | [facility] | | | Tablet | | + + + + | 2020-12-30 00:00 | meloxicam 15 MG Oral | [facility] | | | Tablet | | + + + + | 2021-07-24 00:00 | glucagon (rdna) 1 mg | [facility] | | | injection [glucagen] | Care 7th Floor | + + + + | 2021-07-21 00:00 | asmanex hfa 100 mcg/inhal | [facility] | | | metered dose inhaler, 120 | Care 7[facility] Floor | | | actuat | | + + + + | 2021-07-21 00:00 | mometasone furoate 0.1 | [facility] | | | mg/actuat metered dose | Care 7[facility] Floor | | | inhaler | | + + + + | 2021-11-14 00:00 | QUETIAPINE FUMARATE | [facility] | + + + + | 2021-12-03 00:00 | QUETIAPINE FUMARATE | [facility] | + + + + | 2021-12-30 00:00 | QUETIAPINE FUMARATE | [facility] | + + + + | 2022-01-12 00:00 | QUETIAPINE FUMARATE | [facility] | + + + + | 2022-02-02 00:00 | QUETIAPINE FUMARATE | [facility] | + + + + | 2022-02-06 00:00 | QUETIAPINE FUMARATE | [facility] | + + + + | 2022-02-09 00:00 | QUETIAPINE FUMARATE | [facility] | + + + + | 2022-02-19 00:00 | QUETIAPINE FUMARATE | [facility] | + + + + | 2022-02-28 00:00 | QUETIAPINE FUMARATE | [facility] | + + + + | 2022-04-12 00:00 | QUETIAPINE FUMARATE | [facility] | + + + + | 2022-04-19 00:00 | QUETIAPINE FUMARATE | [facility] | + + + + | 2022-06-08 00:00 | QUETIAPINE FUMARATE | [facility] | + + + + | 2022-06-16 00:00 | QUETIAPINE FUMARATE | [facility] | + + + + | 2022-06-19 00:00 | QUETIAPINE FUMARATE | [facility] | + + + + | 2022-07-08 00:00 | QUETIAPINE FUMARATE | [facility] | + + + + | 2022-07-11 00:00 | QUETIAPINE FUMARATE | [facility] | + + + + | 2022-07-14 00:00 | QUETIAPINE FUMARATE | [facility] | + + + + | 2022-07-22 00:00 | QUETIAPINE FUMARATE | [facility] | + + + + | 2022-07-24 00:00 | QUETIAPINE FUMARATE | [facility] | + + + + | 2022-07-27 00:00 | QUETIAPINE FUMARATE | [facility] | + + + + | 2022-07-29 00:00 | QUETIAPINE FUMARATE | [facility] | + + + + | 2022-07-31 00:00 | QUETIAPINE FUMARATE | [facility] | + + + + | 2022-08-05 00:00 | QUETIAPINE FUMARATE | [facility] | + + + + | 2022-08-13 00:00 | QUETIAPINE FUMARATE | [facility] | + + + + | 2022-08-21 00:00 | QUETIAPINE FUMARATE | [facility] | + + + + | 2022-08-31 00:00 | QUETIAPINE FUMARATE | [facility] | + + + + | 2022-12-05 00:00 | QUETIAPINE FUMARATE | [facility] | + + + + | 2021-03-16 00:00 | quetiapine 100 MG Oral | [facility] | | | Tablet [Seroquel] | | + + + + | 2020-12-03 00:00 | Latuda 40 MG Oral Tablet | [facility] | | | | | + + + + | 2022-07-11 00:00 | INSULIN LISPRO | [facility] | + + + + | 2022-07-14 00:00 | INSULIN LISPRO | [facility] | + + + + | 2022-07-22 00:00 | INSULIN LISPRO | [facility] | + + + + | 2022-07-24 00:00 | INSULIN LISPRO | [facility] | + + + + | 2022-07-27 00:00 | INSULIN LISPRO | [facility] | + + + + | 2022-07-29 00:00 | INSULIN LISPRO | [facility] | + + + + | 2022-07-31 00:00 | INSULIN LISPRO | [facility] | + + + + | 2022-08-05 00:00 | INSULIN LISPRO | [facility] | + + + + | 2022-08-13 00:00 | INSULIN LISPRO | [facility] | + + + + | 2022-08-21 00:00 | INSULIN LISPRO | [facility] | + + + + | 2022-08-31 00:00 | INSULIN LISPRO | [facility] | + + + + | 2022-12-05 00:00 | INSULIN LISPRO | [facility] | + + + + | 2021-07-27 00:00 | insulin lispro 100 unt/ml | [facility] | | | per 3 ml pen injector | Department | + + + + | 2021-07-27 00:00 | insulin lispro 100 unt/ml | [facility] | | | per 3 ml pen injector | Specialties | + + + + | 2021-07-27 00:00 | insulin lispro 100 unt/ml | [facility] | | | per 3 ml pen injector | Care [facility] Floor | + + + + | 2021-10-05 00:00 | insulin lispro 100 unt/ml | [facility] | | | per 3 ml pen injector | | + + + + | 2021-10-05 00:00 | insulin lispro 100 unt/ml | [facility] | | | per 3 ml pen injector | Care [address] [place] [address] | + + + + | 2021-11-14 00:00 | INSULIN LISPRO | [facility] | + + + + | 2021-12-03 00:00 | INSULIN LISPRO | [facility] | + + + + | 2021-12-30 00:00 | INSULIN LISPRO | [facility] | + + + + | 2022-01-12 00:00 | INSULIN LISPRO | [facility] | + + + + | 2022-02-02 00:00 | INSULIN LISPRO | [facility] | + + + + | 2022-02-06 00:00 | INSULIN LISPRO | [facility] | + + + + | 2022-02-09 00:00 | INSULIN LISPRO | [facility] | + + + + | 2022-02-19 00:00 | INSULIN LISPRO | [facility] | + + + + | 2022-02-28 00:00 | INSULIN LISPRO | [facility] | + + + + | 2022-04-12 00:00 | INSULIN LISPRO | [facility] | + + + + | 2022-04-19 00:00 | INSULIN LISPRO | [facility] | + + + + | 2022-06-08 00:00 | INSULIN LISPRO | [facility] | + + + + | 2022-06-16 00:00 | INSULIN LISPRO | [facility] | + + + + | 2022-06-19 00:00 | INSULIN LISPRO | [facility] | + + + + | 2022-07-08 00:00 | INSULIN LISPRO | [facility] | + + + + | 2022-07-11 00:00 | INSULIN LISPRO | [facility] | + + + + | 2022-07-14 00:00 | INSULIN LISPRO | [facility] | + + + + | 2022-07-22 00:00 | INSULIN LISPRO | [facility] | + + + + | 2022-07-24 00:00 | INSULIN LISPRO | [facility] | + + + + | 2022-07-27 00:00 | INSULIN LISPRO | [facility] | + + + + | 2022-07-29 00:00 | INSULIN LISPRO | [facility] | + + + + | 2022-07-31 00:00 | INSULIN LISPRO | [facility] | + + + + | 2022-08-05 00:00 | INSULIN LISPRO | [facility] | + + + + | 2022-08-13 00:00 | INSULIN LISPRO | [facility] | + + + + | 2022-08-21 00:00 | INSULIN LISPRO | [facility] | + + + + | 2022-08-31 00:00 | INSULIN LISPRO | [facility] | + + + + | 2022-12-05 00:00 | INSULIN LISPRO | [facility] | + + + + | 2021-07-19 00:00 | insulin, aspart, human 100 | [facility] | | | unt/ml per 3 ml pen | [facility] [address] | | | injector | | + + + + | 2021-07-24 00:00 | insulin, aspart, human 100 | [facility] | | | unt/ml per 3 ml pen | [facility] [address] [facility] | | | injector | | + + + + | 2021-07-27 00:00 | insulin, aspart, human 100 | [facility] | | | unt/ml per 3 ml pen | [facility] [address] | | | injector | | + + + + | 2021-07-29 00:00 | insulin, aspart, human 100 | [facility] | | | unt/ml per 3 ml pen | Specialties | | | injector | | + + + + | 2021-10-05 00:00 | insulin, aspart, human 100 | [facility] | | | unt/ml per 3 ml pen | [facility] [address] | | | injector | | + + + + | 2021-07-19 00:00 | 500 ml magnesium sulfate | [facility] | | | 40 mg/ml injection | [facility] | + + + + | 2021-07-22 00:00 | 1 ml lorazepam 2 mg/ml | [facility] | | | injection | [facility] [address] | + + + + | 2021-07-23 00:00 | 1 ml lorazepam 2 mg/ml | [facility] | | | injection | [facility] [address] [facility] | + + + + | 2021-07-29 00:00 | 1 ml lorazepam 2 mg/ml | [facility] | | | injection | Specialties | + + + + | 2021-07-28 00:00 | midazolam 5 mg per 5 ml | [facility] | | | injection | Specialties | + + + + | 2021-10-05 00:00 | midazolam 5 mg per 5 ml | [facility] | | | injection | Specialties | + + + + | 2020-07-16 00:00 | cariprazine 1.5 MG Oral | [facility] | | Capsule [Vraylar] | | + + + + | 2021-12-03 00:00 | Cariprazine Hydrochloride | [facility] | + + + + | 2021-12-30 00:00 | Cariprazine Hydrochloride | [facility] | + + + + | 2022-01-12 00:00 | Cariprazine Hydrochloride | [facility] | + + + + | 2022-02-02 00:00 | Cariprazine Hydrochloride | [facility] | + + + + | 2022-02-06 00:00 | Cariprazine Hydrochloride | [facility] | + + + + | 2022-02-09 00:00 | Cariprazine Hydrochloride | [facility] | + + + + | 2022-02-19 00:00 | Cariprazine Hydrochloride | [facility] | + + + + | 2022-02-28 00:00 | Cariprazine Hydrochloride | [facility] | + + + + | 2022-04-12 00:00 | Cariprazine Hydrochloride | [facility] | + + + + | 2022-04-19 00:00 | Cariprazine Hydrochloride | [facility] | + + + + | 2022-06-08 00:00 | Cariprazine Hydrochloride | [facility] | + + + + | 2022-06-16 00:00 | Cariprazine Hydrochloride | [facility] | + + + + | 2022-06-19 00:00 | Cariprazine Hydrochloride | [facility] | + + + + | 2022-07-08 00:00 | Cariprazine Hydrochloride | [facility] | + + + + | 2022-07-11 00:00 | Cariprazine Hydrochloride | [facility] | + + + + 2022-07-14 00:00 | Cariprazine Hydrochloride | [facility] | + + + + | 2022-07-22 00:00 | Cariprazine Hydrochloride | [facility] | + + + + | 2022-07-24 00:00 | Cariprazine Hydrochloride | [facility] | + + + + | 2022-07-27 00:00 | Cariprazine Hydrochloride | [facility] | + + + + | 2022-07-29 00:00 | Cariprazine Hydrochloride | [facility] | + + + + | 2022-07-31 00:00 | Cariprazine Hydrochloride | [facility] | + + + + | 2022-08-05 00:00 | Cariprazine Hydrochloride | [facility] | + + + + | 2022-08-13 00:00 | Cariprazine Hydrochloride | [facility] | + + + + | 2022-08-21 00:00 | Cariprazine Hydrochloride | [facility] | + + + + | 2022-08-31 00:00 | Cariprazine Hydrochloride | [facility] | + + + + | 2022-12-05 00:00 | Cariprazine Hydrochloride | [facility] | + + + + | 2021-12-18 00:00 | cariprazine 6 MG Oral | [facility] | | | Capsule [Vraylar] | | + + + + | 2021-07-28 00:00 | 1 ml hydromorphone | [facility] | | | hydrochloride 1 mg/ml | Specialties | | | cartridge | | + + + + | 2021-10-05 00:00 | 1 ml hydromorphone | [facility] | | | hydrochloride 1 mg/ml | Specialties | | | cartridge | | + + + + | 2021-07-27 00:00 | 3 ml insulin glargine 100 | [facility] | | | unt/ml pen injector | Department | | | [basaglar] | | + + + + | 2021-07-27 00:00 | 3 ml insulin glargine 100 | [facility] | | | unt/ml pen injector | Specialties | | | [basaglar] | | + + + + | 2021-07-27 00:00 | 3 ml insulin glargine 100 | [facility] | | | unt/ml pen injector | Care 7th Floor | | | [basaglar] | | + + + + | 2022-06-22 00:00 | Advocate Insulin Syringe | [facility] | | | 30G X 5/16" 0.5 ML | | | | Miscellaneous | | + + + + | 2021-07-21 00:00 | 2 ml famotidine 10 mg/ml | [facility] | | | injection | Care 7th Floor | + + + + | 2021-12-11 00:00 | Prazosin HCl 2 MG Oral | [facility] | | | Capsule | | + + + + | 2022-02-23 00:00 | Promethazine HCl 25 MG | [facility] | | | Oral Tablet | | + + + + | 2021-07-24 00:00 | 250 ml glucose 50 mg/ml / | [facility] | | | sodium chloride 9 mg/ml | Care 7[facility] Floor | | | injection | | + + + + | 2021-08-15 00:00 | FLUTICASONE PROPIONATE 50 | [facility] | | | MCG | | + + + + | 2021-08-15 00:00 | FLUTICASONE PROPIONATE 50 | [facility] | | | MCG | | + + + + | 2021-08-15 00:00 | FLUTICASONE PROPIONATE 50 | [facility] | | | MCG | | + + + + | 2021-08-15 00:00 | FLUTICASONE PROPIONATE 50 | [facility] | | | MCG | | + + + + | 2021-11-14 00:00 | FLUTICASONE PROPIONATE 50 | [facility] | | | MCG | | + + + + | 2021-12-03 00:00 | FLUTICASONE PROPIONATE 50 | [facility] | | | MCG | | + + + + | 2021-12-30 00:00 | FLUTICASONE PROPIONATE 50 | [facility] | | | MCG | | + + + + | 2022-01-12 00:00 | FLUTICASONE PROPIONATE 50 | [facility] | | | MCG | | + + + + | 2022-02-02 00:00 | FLUTICASONE PROPIONATE 50 | [facility] | | | MCG | | + + + + | 2022-02-06 00:00 | FLUTICASONE PROPIONATE 50 | [facility] | | | MCG | | + + + + | 2022-02-09 00:00 | FLUTICASONE PROPIONATE 50 | [facility] | | | MCG | | + + + + | 2022-02-19 00:00 | FLUTICASONE PROPIONATE 50 | [facility] | | | MCG | | + + + + | 2022-02-28 00:00 | FLUTICASONE PROPIONATE 50 | [facility] | | | MCG | | + + + + | 2022-04-12 00:00 | FLUTICASONE PROPIONATE 50 | [facility] | | | MCG | | + + + + | 2022-04-19 00:00 | FLUTICASONE PROPIONATE 50 | [facility] | | | MCG | | + + + + | 2022-06-08 00:00 | FLUTICASONE PROPIONATE 50 | [facility] | | | MCG | | + + + + | 2022-06-16 00:00 | FLUTICASONE PROPIONATE 50 | [facility] | | | MCG | | + + + + | 2022-06-19 00:00 | FLUTICASONE PROPIONATE 50 | [facility] | | | MCG | | + + + + | 2022-07-08 00:00 | FLUTICASONE PROPIONATE 50 | [facility] | | | MCG | | + + + + | 2022-07-11 00:00 | FLUTICASONE PROPIONATE 50 | [facility] | | | MCG | | + + + + | 2022-07-14 00:00 | FLUTICASONE PROPIONATE 50 | [facility] | | | MCG | | + + + + | 2022-07-22 00:00 | FLUTICASONE PROPIONATE 50 | [facility] | | | MCG | | + + + + | 2022-07-24 00:00 | FLUTICASONE PROPIONATE 50 | [facility] | | | MCG | | + + + + | 2022-07-27 00:00 | FLUTICASONE PROPIONATE 50 | [facility] | | | MCG | | + + + + | 2022-07-29 00:00 | FLUTICASONE PROPIONATE 50 | [facility] | | | MCG | | + + + + | 2022-07-31 00:00 | FLUTICASONE PROPIONATE 50 | [facility] | | | MCG | | + + + + | 2022-08-05 00:00 | FLUTICASONE PROPIONATE 50 | [facility] | | | MCG | | + + + + | 2022-08-13 00:00 | FLUTICASONE PROPIONATE 50 | [facility] | | | MCG | | + + + + | 2022-08-21 00:00 | FLUTICASONE PROPIONATE 50 | [facility] | | | MCG | | + + + + | 2022-08-31 00:00 | FLUTICASONE PROPIONATE 50 | [facility] | | | MCG | | + + + + | 2022-12-05 00:00 | FLUTICASONE PROPIONATE 50 | [facility] | | | MCG | | + + + + | 2021-06-18 00:00 | fluticasone propionate 50 | [facility] | | | mcg/actuat metered dose | | | | nasal spray | | + + + + | 2021-06-18 00:00 | fluticasone propionate 50 | [facility] | | | mcg/actuat metered dose | Care [facility] Floor | | | nasal spray | | + + + + | 2021-07-27 00:00 | fluticasone propionate 50 | [facility] | | | mcg/actuat metered dose | Department | | | nasal spray | | + + + + | 2021-07-27 00:00 | fluticasone propionate 50 | [facility] | | | mcg/actuat metered dose | Specialties | | | nasal spray | | + + + + | 2021-07-27 00:00 | fluticasone propionate 50 | [facility] | | | mcg/actuat metered dose | [address] | | | nasal spray | | + + + + | 2021-07-29 00:00 | fluticasone propionate 50 | [facility] | | | mcg/actuat metered dose | Specialties | | | nasal spray | | + + + + | 2020-12-17 00:00 | fluticasone propionate | [facility] | | | 0.05 MG/ACTUAT Metered Dose | | | | Nasal Melba [Flonase] | | + + + + | 2021-02-12 00:00 | fluticasone propionate | [facility] | | | 0.05 MG/ACTUAT Metered Dose | | | | Nasal Melba [Flonase] | | + + + + | 2021-07-19 00:00 | 1000 ml sodium chloride 9 | [facility] | | | mg/ml injection | Care 7th Floor | + + + + | 2021-07-20 00:00 | 1000 ml sodium chloride 9 | [facility] | | | mg/ml injection | Care 7th Floor | + + + + | 2021-07-21 00:00 | 1000 ml sodium chloride 9 | [facility] | | | mg/ml injection | Care 7th Floor | + + + + | 2021-07-28 00:00 | 1000 ml sodium chloride 9 | [facility] | | | mg/ml injection | Specialties | + + + + | 2021-07-29 00:00 | 1000 ml sodium chloride 9 | [facility] | | | mg/ml injection | Specialties | + + + + | 2020-03-28 00:00 | Renny DuboseoStar 100 | [facility] | | | UNIT/ML Subcutaneous | | | | Solution Pen-injector | | + + + + | 2021-02-12 00:00 | Lantus SoloStar 100 | [facility] | | | UNIT/ML Subcutaneous | | | | Solution Pen-injector | | + + + + | 2021-11-16 00:00 | Lantus SoloStar 100 | [facility] | | | UNIT/ML Subcutaneous | | | | Solution Pen-injector | | + + + + | 2020-01-18 00:00 | Levemir FlexTouch 100 | [facility] | | | UNIT/ML Subcutaneous | | | | Solution Pen-injector | | + + + + | 2022-02-23 00:00 | Chewable Iron 30-10-25 MG | [facility] | | | Oral Tablet Chewable | | + + + + | 2020-12-17 00:00 | Flonase Allergy Relief 50 | [facility] | | | MCG/ACT Nasal Suspension | | + + + + | 2021-02-12 00:00 | Flonase Allergy Relief 50 | [facility] | | | MCG/ACT Nasal Suspension | | + + + + | 2020-07-16 00:00 | Vraylar 1.5 MG Oral | [facility] | | | Capsule | | + + + + | 2021-12-18 00:00 | Vraylar 6 MG Oral Capsule | [facility] | | | | | + + + + | 2020-01-08 00:00 | 0.5 UNT Doses 3 ML insulin | [facility] | | | lispro 100 UNT/ML Pen | | | | Injector [Humalog] | | + + + + | 2021-02-12 00:00 | 0.5 UNT Doses 3 ML insulin | [facility] | | | lispro 100 UNT/ML Pen | | | | Injector [Humalog] | | + + + + | 2020-07-16 00:00 | baclofen 10 MG Oral Tablet | [facility] | | | | | + + + + | 2021-02-24 00:00 | baclofen 10 MG Oral Tablet | [facility] | | | | | + + + + | 2022-06-19 00:00 | CEPHALEXIN | [facility] | + + + + | 2020-01-16 00:00 | clozapine 100 MG Oral | [facility] | | | Tablet | | + + + + | 2022-06-16 00:00 | ESTRADIOL | [facility] | + + + + | 2022-06-19 00:00 | ESTRADIOL | [facility] | + + + + | 2022-07-08 00:00 | ESTRADIOL | [facility] | + + + + | 2022-07-11 00:00 | ESTRADIOL | [facility] | + + + + | 2022-07-14 00:00 | ESTRADIOL | [facility] | + + + + | 2022-07-22 00:00 | ESTRADIOL | [facility] | + + + + | 2022-07-24 00:00 | ESTRADIOL | [facility] | + + + + | 2022-07-27 00:00 | ESTRADIOL | [facility] | + + + + | 2022-07-29 00:00 | ESTRADIOL | [facility] | + + + + | 2022-07-31 00:00 | ESTRADIOL | [facility] | + + + + | 2022-08-05 00:00 | ESTRADIOL | [facility] | + + + + | 2022-08-13 00:00 | ESTRADIOL | [facility] | + + + + | 2022-08-21 00:00 | ESTRADIOL | [facility] | + + + + | 2022-08-31 00:00 | ESTRADIOL | [facility] | + + + + | 2022-12-05 00:00 | ESTRADIOL | [facility] | + + + + | 2021-08-15 00:00 | IBUPROFEN | [facility] | + + + + | 2022-02-06 00:00 | IBUPROFEN | [facility] | + + + + | 2022-02-09 00:00 | IBUPROFEN | [facility] | + + + + | 2022-02-19 00:00 | IBUPROFEN | [facility] | + + + + | 2022-02-28 00:00 | IBUPROFEN | [facility] | + + + + | 2022-04-12 00:00 | IBUPROFEN | [facility] | + + + + | 2022-04-19 00:00 | IBUPROFEN | [facility] | + + + + | 2022-06-08 00:00 | IBUPROFEN | [facility] | + + + + | 2022-06-16 00:00 | IBUPROFEN | [facility] | + + + + | 2022-06-19 00:00 | IBUPROFEN | [facility] | + + + + | 2022-07-08 00:00 | IBUPROFEN | [facility] | + + + + | 2022-07-11 00:00 | IBUPROFEN | [facility] | + + + + | 2022-07-14 00:00 | IBUPROFEN | [facility] | + + + + | 2022-07-22 00:00 | IBUPROFEN | [facility] | + + + + | 2022-07-24 00:00 | IBUPROFEN | [facility] | + + + + | 2022-07-27 00:00 | IBUPROFEN | [facility] | + + + + | 2022-07-29 00:00 | IBUPROFEN | [facility] | + + + + | 2022-07-31 00:00 | IBUPROFEN | [facility] | + + + + | 2022-08-05 00:00 | IBUPROFEN | [facility] | + + + + | 2022-08-13 00:00 | IBUPROFEN | [facility] | + + + + | 2022-08-21 00:00 | IBUPROFEN | [facility] | + + + + | 2022-08-31 00:00 | IBUPROFEN | [facility] | + + + + | 2022-12-05 00:00 | IBUPROFEN | [facility] | + + + + | 2021-07-24 00:00 | ibuprofen 600 mg oral | [facility] | | | tablet | Care 7th Floor | + + + + | 2021-07-22 00:00 | lorazepam 1 mg oral tablet | [facility] | | | | Care 7th Floor | + + + + | 2021-07-30 00:00 | methocarbamol 500 mg oral | [facility] | | | tablet | Specialties | + + + + | 2021-08-01 00:00 | methocarbamol 500 mg oral | [facility] | | | tablet | Department | + + + + | 2021-08-01 00:00 | methocarbamol 500 mg oral | [facility] | | | tablet | Specialties | + + + + | 2022-06-16 00:00 | NICOTINE | [facility] | + + + + | 2022-06-16 00:00 | NICOTINE | [facility] | + + + + | 2022-06-16 00:00 | NICOTINE | [facility] | + + + + | 2022-06-16 00:00 | NICOTINE | [facility] | + + + + | 2021-07-21 00:00 | nicotine 21 mg per 24hr 1 | [facility] | | | day transdermal patch | Care 7th Floor | + + + + | 2019-06-23 00:00 | OMEPRAZOLE | [facility] | + + + + | 2019-06-23 00:00 | OMEPRAZOLE | [facility] | + + + + | 2019-06-23 00:00 | OMEPRAZOLE | [facility] | + + + + | 2019-06-23 00:00 | OMEPRAZOLE | [facility] | + + + + | 2021-08-15 00:00 | OMEPRAZOLE | [facility] | + + + + | 2021-08-15 00:00 | OMEPRAZOLE | [facility] | + + + + | 2021-08-15 00:00 | OMEPRAZOLE | [facility] | + + + + | 2021-08-15 00:00 | OMEPRAZOLE | [facility] | + + + + | 2021-11-14 00:00 | OMEPRAZOLE | [facility] | + + + + | 2021-12-03 00:00 | OMEPRAZOLE | [facility] | + + + + | 2021-12-30 00:00 | OMEPRAZOLE | [facility] | + + + + | 2022-01-12 00:00 | OMEPRAZOLE | [facility] | + + + + | 2022-02-02 00:00 | OMEPRAZOLE | [facility] | + + + + | 2022-02-06 00:00 | OMEPRAZOLE | [facility] | + + + + | 2022-02-09 00:00 | OMEPRAZOLE | [facility] | + + + + | 2022-02-19 00:00 | OMEPRAZOLE | [facility] | + + + + | 2022-02-28 00:00 | OMEPRAZOLE | [facility] | + + + + | 2022-04-12 00:00 | OMEPRAZOLE | [facility] | + + + + | 2022-04-19 00:00 | OMEPRAZOLE | [facility] | + + + + | 2022-06-08 00:00 | OMEPRAZOLE | [facility] | + + + + | 2022-06-16 00:00 | OMEPRAZOLE | [facility] | + + + + | 2022-06-19 00:00 | OMEPRAZOLE | [facility] | + + + + | 2022-07-08 00:00 | OMEPRAZOLE | [facility] | + + + + | 2022-07-11 00:00 | OMEPRAZOLE | [facility] | + + + + | 2022-07-14 00:00 | OMEPRAZOLE | [facility] | + + + + | 2022-07-22 00:00 | OMEPRAZOLE | [facility] | + + + + | 2022-07-24 00:00 | OMEPRAZOLE | [facility] | + + + + | 2022-07-27 00:00 | OMEPRAZOLE | [facility] | + + + + | 2022-07-29 00:00 | OMEPRAZOLE | [facility] | + + + + | 2022-07-31 00:00 | OMEPRAZOLE | [facility] | + + + + | 2022-08-05 00:00 | OMEPRAZOLE | [facility] | + + + + | 2022-08-13 00:00 | OMEPRAZOLE | [facility] | + + + + | 2022-08-21 00:00 | OMEPRAZOLE | [facility] | + + + + | 2022-08-31 00:00 | OMEPRAZOLE | [facility] | + + + + | 2022-12-05 00:00 | OMEPRAZOLE | [facility] | + + + + | 2020-04-18 00:00 | omeprazole 20 MG Delayed | [facility] | | | Release Oral Capsule | | + + + + | 2021-02-24 00:00 | omeprazole 20 MG Delayed | [facility] | | | Release Oral Capsule | | + + + + | 2021-06-08 00:00 | omeprazole 20 MG Delayed | [facility] | | | Release Oral Capsule | | + + + + | 2021-07-20 00:00 | omeprazole 20 mg (as | [facility] | | | omeprazole magnesium 20.6 | [address] | | | mg) delayed release oral | | | | capsule | | + + + + | 2021-07-27 00:00 | omeprazole 20 mg (as | [facility] | | | omeprazole magnesium 20.6 | Department | | | mg) delayed release oral | | | | capsule | | + + + + | 2021-07-27 00:00 | omeprazole 20 mg (as | [facility] | | | omeprazole magnesium 20.6 | Specialties | | | mg) delayed release oral | | | | capsule | | + + + + | 2021-07-27 00:00 | omeprazole 20 mg (as | [facility] | | | omeprazole magnesium 20.6 | [address] | | | mg) delayed release oral | | | | capsule | | + + + + | 2021-07-29 00:00 | omeprazole 20 mg (as | [facility] | | | omeprazole magnesium 20.6 | Specialties | | | mg) delayed release oral | | | | capsule | | + + + + | 2021-10-05 00:00 | omeprazole 20 mg (as | [facility] | | | omeprazole magnesium 20.6 | | | | mg) delayed release oral | | | | capsule | | + + + + | 2021-10-05 00:00 | omeprazole 20 mg (as | [facility] | | | omeprazole magnesium 20.6 | [address] | | | mg) delayed release oral | | | | capsule | | + + + + | 2022-06-16 00:00 | PRAZOSIN HCL | [facility] | + + + + | 2022-06-19 00:00 | PRAZOSIN HCL | [facility] | + + + + | 2022-07-08 00:00 | PRAZOSIN HCL | [facility] | + + + + | 2022-07-11 00:00 | PRAZOSIN HCL | [facility] | + + + + | 2022-07-14 00:00 | PRAZOSIN HCL | [facility] | + + + + | 2022-07-22 00:00 | PRAZOSIN HCL | [facility] | + + + + | 2022-07-24 00:00 | PRAZOSIN HCL | [facility] | + + + + | 2022-07-27 00:00 | PRAZOSIN HCL | [facility] | + + + + | 2022-07-29 00:00 | PRAZOSIN HCL | [facility] | + + + + | 2022-07-31 00:00 | PRAZOSIN HCL | [facility] | + + + + | 2022-08-05 00:00 | PRAZOSIN HCL | [facility] | + + + + | 2022-08-13 00:00 | PRAZOSIN HCL | [facility] | + + + + 2022-08-21 00:00 | PRAZOSIN HCL | [facility] | + + + + | 2022-08-31 00:00 | PRAZOSIN HCL | [facility] | + + + + | 2022-12-05 00:00 | PRAZOSIN HCL | [facility] | + + + + | 2021-08-15 00:00 | | [facility] | | | SULFAMETHOXAZOLE/TRIMETHOPR | | | | IM | | + + + + | 2022-08-31 00:00 | PROCHLORPERAZINE MALEATE | [facility] | + + + + | 2022-08-31 00:00 | PROCHLORPERAZINE MALEATE | [facility] | + + + + | 2021-08-15 00:00 | ACETAMINOPHEN | [facility] | + + + + | 2015-07-25 00:00 | acetaminophen 500 mg oral | [facility] | | | tablet | | + + + + | 2015-07-25 00:00 | acetaminophen 500 mg oral | [facility] | | | tablet | Care 7th Floor | + + + + | 2021-07-19 00:00 | acetaminophen 500 mg oral | [facility] | | | tablet | Care 7th Floor | + + + + | 2021-07-27 00:00 | acetaminophen 500 mg oral | [facility] | | | tablet | Department | + + + + | 2021-07-27 00:00 | acetaminophen 500 mg oral | [facility] | | | tablet | Specialties | + + + + | 2021-07-27 00:00 | acetaminophen 500 mg oral | [facility] | | | tablet | Care 7th Floor | + + + + | 2021-07-20 00:00 | bisacodyl 10 mg rectal | [facility] | | | suppository | Care 7[facility] Floor | + + + + | 2021-07-26 00:00 | bisacodyl 10 mg rectal | [facility] | | | suppository | Care 7th Floor | + + + + | 2021-07-30 00:00 | bisacodyl 10 mg rectal | [facility] | | | suppository | Specialties | + + + + | 2021-07-28 00:00 | dextrose 40 % oral gel | [facility] | | | | Specialties | + + + + | 2019-06-23 00:00 | MAGNESIUM OXIDE | [facility] | + + + + | 2019-06-23 00:00 | MAGNESIUM OXIDE | [facility] | + + + + | 2019-06-23 00:00 | MAGNESIUM OXIDE | [facility] | + + + + | 2019-06-23 00:00 | MAGNESIUM OXIDE | [facility] | + + + + | 2022-02-06 00:00 | Magnesium Oxide | [facility] | + + + + | 2022-02-09 00:00 | Magnesium Oxide | [facility] | + + + + | 2022-02-19 00:00 | Magnesium Oxide | [facility] | + + + + | 2022-02-28 00:00 | Magnesium Oxide | [facility] | + + + + | 2022-04-12 00:00 | Magnesium Oxide | [facility] | + + + + | 2022-04-19 00:00 | Magnesium Oxide | [facility] | + + + + | 2022-06-08 00:00 | Magnesium Oxide | [facility] | + + + + | 2022-06-16 00:00 | Magnesium Oxide | [facility] | + + + + | 2022-06-19 00:00 | Magnesium Oxide | [facility] | + + + + | 2022-07-08 00:00 | Magnesium Oxide | [facility] | + + + + | 2022-07-11 00:00 | Magnesium Oxide | [facility] | + + + + | 2022-07-14 00:00 | Magnesium Oxide | [facility] | + + + + | 2022-07-22 00:00 | Magnesium Oxide | [facility] | + + + + | 2022-07-24 00:00 | Magnesium Oxide | [facility] | + + + + | 2022-07-27 00:00 | Magnesium Oxide | [facility] | + + + + | 2022-07-29 00:00 | Magnesium Oxide | [facility] | + + + + | 2022-07-31 00:00 | Magnesium Oxide | [facility] | + + + + | 2022-08-05 00:00 | Magnesium Oxide | [facility] | + + + + | 2022-08-13 00:00 | Magnesium Oxide | [facility] | + + + + | 2022-08-21 00:00 | Magnesium Oxide | [facility] | + + + + | 2022-08-31 00:00 | Magnesium Oxide | [facility] | + + + + | 2022-12-05 00:00 | Magnesium Oxide | [facility] | + + + + | 2020-01-25 00:00 | magnesium oxide 400 MG | [facility] | | | Oral Tablet | | + + + + | 2021-02-12 00:00 | magnesium oxide 400 MG | [facility] | | | Oral Tablet | | + + + + | 2021-07-19 00:00 | melatonin 3 mg oral tablet | [facility] | | | | Care 7th Floor | + + + + | 2021-08-01 00:00 | melatonin 3 mg oral tablet | [facility] | | | | Specialties | + + + + | 2020-01-08 00:00 | Raúl Salamanca 100 | [facility] | | | UNIT/ML Subcutaneous | | | | Solution Pen-injector | | + + + + | 2021-02-12 00:00 | Raúl Salamanca 100 | [facility] | | | UNIT/ML Subcutaneous | | | | Solution Pen-injector | | + + + + | 2020-01-21 00:00 | topiramate 25 MG Oral | [facility] | | | Tablet | | + + + + | 2020-07-23 00:00 | FreeStyle Alvina Lovejoy | [facility] | | | Device | | + + + + | 2021-01-02 00:00 | FreeStyle Alvina Lovejoy | [facility] | | | Device | | + + + + | 2022-01-12 00:00 | CEFDINIR | [facility] | + + + + | 2020-07-16 00:00 | Dexcom G6 Transmitter | [facility] | | | Miscellaneous | | + + + + | 2020-07-16 00:00 | Dexcom G6 Sensor | [facility] | | | Miscellaneous | | + + + + | 2020-07-16 00:00 | Dexcom G6 Appeals Rn Device | [facility] | | | | | + + + + | 2021-03-17 00:00 | CVS Gummy 0.4 MG | [facility] | | | Oral Tablet Chewable | | + + + + | 2022-02-02 00:00 | Ibuprofen | [facility] | + + + + | 2020-11-18 00:00 | Blood Glucose/Ketone | [facility] | | | w/Device Kit | | + + + + | 2019-06-23 00:00 | PRAZOSIN HCL | [facility] | + + + + | 2019-06-23 00:00 | PRAZOSIN HCL | [facility] | + + + + | 2019-06-23 00:00 | PRAZOSIN HCL | [facility] | + + + + | 2019-06-23 00:00 | PRAZOSIN HCL | [facility] | + + + + | 2021-11-14 00:00 | PRAZOSIN HCL | [facility] | + + + + | 2021-12-03 00:00 | PRAZOSIN HCL | [facility] | + + + + | 2021-12-30 00:00 | PRAZOSIN HCL | [facility] | + + + + | 2022-01-12 00:00 | PRAZOSIN HCL | [facility] | + + + + | 2022-02-02 00:00 | PRAZOSIN HCL | [facility] | + + + + | 2022-02-06 00:00 | PRAZOSIN HCL | [facility] | + + + + | 2022-02-09 00:00 | PRAZOSIN HCL | [facility] | + + + + | 2022-02-19 00:00 | PRAZOSIN HCL | [facility] | + + + + | 2022-02-28 00:00 | PRAZOSIN HCL | [facility] | + + + + | 2022-04-12 00:00 | PRAZOSIN HCL | [facility] | + + + + | 2022-04-19 00:00 | PRAZOSIN HCL | [facility] | + + + + | 2022-06-08 00:00 | PRAZOSIN HCL | [facility] | + + + + | 2022-06-16 00:00 | PRAZOSIN HCL | [facility] | + + + + | 2022-06-19 00:00 | PRAZOSIN HCL | [facility] | + + + + | 2022-07-08 00:00 | PRAZOSIN HCL | [facility] | + + + + | 2022-07-11 00:00 | PRAZOSIN HCL | [facility] | + + + + | 2022-07-14 00:00 | PRAZOSIN HCL | [facility] | + + + + | 2022-07-22 00:00 | PRAZOSIN HCL | [facility] | + + + + | 2022-07-24 00:00 | PRAZOSIN HCL | [facility] | + + + + | 2022-07-27 00:00 | PRAZOSIN HCL | [facility] | + + + + | 2022-07-29 00:00 | PRAZOSIN HCL | [facility] | + + + + | 2022-07-31 00:00 | PRAZOSIN HCL | [facility] | + + + + | 2022-08-05 00:00 | PRAZOSIN HCL | [facility] | + + + + | 2022-08-13 00:00 | PRAZOSIN HCL | [facility] | + + + + | 2022-08-21 00:00 | PRAZOSIN HCL | [facility] | + + + + | 2022-08-31 00:00 | PRAZOSIN HCL | [facility] | + + + + | 2022-12-05 00:00 | PRAZOSIN HCL | [facility] | + + + + | 2021-07-19 00:00 | prochlorperazine 5 mg/ml | [facility] | | | injectable solution | [facility] [address] [facility] | + + + + | 2021-07-19 00:00 | [id number] 200 actuat | [facility] | | | albuterol 0.09 mg/actuat | [facility] | | | metered dose inhaler | | + + + + | 2021-07-27 00:00 | [id number] 200 actuat | [facility] | | | albuterol 0.09 mg/actuat | Department | | | metered dose inhaler | | + + + + | 2021-07-27 00:00 | [id number] 200 actuat | [facility] | | | albuterol 0.09 mg/actuat | Specialties | | | metered dose inhaler | | + + + + | 2021-07-27 00:00 | [id number] 200 actuat | [facility] | | | albuterol 0.09 mg/actuat | [facility] Floor | | | metered dose inhaler | | + + + + | 2021-07-29 00:00 | [id number] 200 actuat | [facility] | | | albuterol 0.09 mg/actuat | Specialties | | | metered dose inhaler | | + + + + | 2021-10-05 00:00 | [id number] 200 actuat | [facility] | | | albuterol 0.09 mg/actuat | | | | metered dose inhaler | | + + + + | 2021-10-05 00:00 | [id number] 200 actuat | [facility] | | | albuterol 0.09 mg/actuat | [address] | | | metered dose inhaler | | + + + + | 2019-06-23 00:00 | CEPHALEXIN | [facility] | + + + + | 2019-06-23 00:00 | CEPHALEXIN | [facility] | + + + + | 2019-06-23 00:00 | CEPHALEXIN | [facility] | + + + + | 2019-06-23 00:00 | CEPHALEXIN | [facility] | + + + + | 2021-03-16 00:00 | Culturelle | [facility] | | | Wellness Oral Tablet | | | | Chewable | | + + + + | 2020-07-23 00:00 | FreeStyle Alvina 2 Sensor | [facility] | | | Miscellaneous | | + + + + | 2021-01-02 00:00 | FreeStyle Alvina 2 Sensor | [facility] | | | Miscellaneous | | + + + + | 2021-07-23 00:00 | 1 ml carboprost 0.25 mg/ml | [facility] | | | injection | Care 7[address] Floor | + + + + | 2021-07-23 00:00 | tranexamic acid 1000 mg | [facility] | | | per 10 ml injection | Care 7[facility] Floor | + + + + | 2020-07-16 00:00 | Baclofen 10 MG Oral Tablet | [facility] | | | | | + + + + | 2021-02-24 00:00 | Baclofen 10 MG Oral Tablet | [facility] | | | | | + + + + | 2021-11-14 00:00 | MAGNESIUM OXIDE | [facility] | + + + + | 2021-12-03 00:00 | MAGNESIUM OXIDE | [facility] | + + + + | 2021-12-30 00:00 | MAGNESIUM OXIDE | [facility] | + + + + | 2022-01-12 00:00 | MAGNESIUM OXIDE | [facility] | + + + + | 2022-02-02 00:00 | MAGNESIUM OXIDE | [facility] | + + + + | 2022-02-06 00:00 | MAGNESIUM OXIDE | [facility] | + + + + | 2022-02-09 00:00 | MAGNESIUM OXIDE | [facility] | + + + + | 2022-02-19 00:00 | MAGNESIUM OXIDE | [facility] | + + + + | 2022-02-28 00:00 | MAGNESIUM OXIDE | [facility] | + + + + | 2022-04-12 00:00 | MAGNESIUM OXIDE | [facility] | + + + + | 2022-04-19 00:00 | MAGNESIUM OXIDE | [facility] | + + + + | 2022-06-08 00:00 | MAGNESIUM OXIDE | [facility] | + + + + | 2022-06-16 00:00 | MAGNESIUM OXIDE | [facility] | + + + + | 2022-06-19 00:00 | MAGNESIUM OXIDE | [facility] | + + + + | 2022-07-08 00:00 | MAGNESIUM OXIDE | [facility] | + + + + | 2022-07-11 00:00 | MAGNESIUM OXIDE | [facility] | + + + + | 2022-07-14 00:00 | MAGNESIUM OXIDE | [facility] | + + + + | 2022-07-22 00:00 | MAGNESIUM OXIDE | [facility] | + + + + | 2022-07-24 00:00 | MAGNESIUM OXIDE | [facility] | + + + + | 2022-07-27 00:00 | MAGNESIUM OXIDE | [facility] | + + + + | 2022-07-29 00:00 | MAGNESIUM OXIDE | [facility] | + + + + | 2022-07-31 00:00 | MAGNESIUM OXIDE | [facility] | + + + + | 2022-08-05 00:00 | MAGNESIUM OXIDE | [facility] | + + + + | 2022-08-13 00:00 | MAGNESIUM OXIDE | [facility] | + + + + | 2022-08-21 00:00 | MAGNESIUM OXIDE | [facility] | + + + + | 2022-08-31 00:00 | MAGNESIUM OXIDE | [facility] | + + + + | 2022-12-05 00:00 | MAGNESIUM OXIDE | [facility] | + + + + | 2021-08-19 00:00 | busPIRone HCl 10 MG Oral | [facility] | | | Tablet | | + + + + | 2021-11-14 00:00 | PIOGLITAZONE HCL | [facility] | + + + + | 2021-12-03 00:00 | PIOGLITAZONE HCL | [facility] | + + + + | 2021-12-30 00:00 | PIOGLITAZONE HCL | [facility] | + + + + | 2022-01-12 00:00 | PIOGLITAZONE HCL | [facility] | + + + + | 2022-02-02 00:00 | PIOGLITAZONE HCL | [facility] | + + + + | 2022-02-06 00:00 | PIOGLITAZONE HCL | [facility] | + + + + | 2022-02-09 00:00 | PIOGLITAZONE HCL | [facility] | + + + + | 2022-02-19 00:00 | PIOGLITAZONE HCL | [facility] | + + + + | 2022-02-28 00:00 | PIOGLITAZONE HCL | [facility] | + + + + | 2022-04-12 00:00 | PIOGLITAZONE HCL | [facility] | + + + + | 2022-04-19 00:00 | PIOGLITAZONE HCL | [facility] | + + + + | 2022-06-08 00:00 | PIOGLITAZONE HCL | [facility] | + + + + | 2022-06-16 00:00 | PIOGLITAZONE HCL | [facility] | + + + + | 2022-06-19 00:00 | PIOGLITAZONE HCL | [facility] | + + + + | 2022-07-08 00:00 | PIOGLITAZONE HCL | [facility] | + + + + | 2022-07-11 00:00 | PIOGLITAZONE HCL | [facility] | + + + + | 2022-07-14 00:00 | PIOGLITAZONE HCL | [facility] | + + + + | 2022-07-22 00:00 | PIOGLITAZONE HCL | [facility] | + + + + | 2022-07-24 00:00 | PIOGLITAZONE HCL | [facility] | + + + + | 2022-07-27 00:00 | PIOGLITAZONE HCL | [facility] | + + + + | 2022-07-29 00:00 | PIOGLITAZONE HCL | [facility] | + + + + | 2022-07-31 00:00 | PIOGLITAZONE HCL | [facility] | + + + + | 2022-08-05 00:00 | PIOGLITAZONE HCL | [facility] | + + + + | 2022-08-13 00:00 | PIOGLITAZONE HCL | [facility] | + + + + | 2022-08-21 00:00 | PIOGLITAZONE HCL | [facility] | + + + + | 2022-08-31 00:00 | PIOGLITAZONE HCL | [facility] | + + + + | 2022-12-05 00:00 | PIOGLITAZONE HCL | [facility] | + + + + | 2021-09-21 00:00 | pioglitazone 30 MG Oral | [facility] | | | Tablet [Actos] | | + + + + | 2020-01-16 00:00 | cloZAPine 100 MG Oral | [facility] | | | Tablet | | + + + + | 2022-08-05 00:00 | BENZONATATE | [facility] | + + + + | 2022-08-05 00:00 | BENZONATATE | [facility] | + + + + | 2022-08-05 00:00 | BENZONATATE | [facility] | + + + + | 2020-01-25 00:00 | Magnesium Oxide 400 MG | [facility] | | | Oral Tablet | | + + + + | 2021-02-12 00:00 | Magnesium Oxide 400 MG | [facility] | | | Oral Tablet | | + + + + | 2022-02-23 00:00 | oxyCODONE HCl 5 MG Oral | [facility] | | | Tablet | | + + + + | 2021-08-15 00:00 | Aspirin | [facility] | + + + + | 2021-11-14 00:00 | Aspirin | [facility] | + + + + | 2021-12-03 00:00 | Aspirin | [facility] | + + + + | 2021-12-30 00:00 | Aspirin | [facility] | + + + + | 2022-01-12 00:00 | Aspirin | [facility] | + + + + | 2022-02-02 00:00 | Aspirin | [facility] | + + + + | 2022-02-06 00:00 | Aspirin | [facility] | + + + + | 2022-02-09 00:00 | Aspirin | [facility] | + + + + | 2022-02-19 00:00 | Aspirin | [facility] | + + + + | 2022-02-28 00:00 | Aspirin | [facility] | + + + + | 2022-04-12 00:00 | Aspirin | [facility] | + + + + | 2022-04-19 00:00 | Aspirin | [facility] | + + + + | 2022-06-08 00:00 | Aspirin | [facility] | + + + + | 2022-06-16 00:00 | Aspirin | [facility] | + + + + | 2022-06-19 00:00 | Aspirin | [facility] | + + + + | 2022-07-08 00:00 | Aspirin | [facility] | + + + + | 2022-07-11 00:00 | Aspirin | [facility] | + + + + | 2022-07-14 00:00 | Aspirin | [facility] | + + + + | 2022-07-22 00:00 | Aspirin | [facility] | + + + + | 2022-07-24 00:00 | Aspirin | [facility] | + + + + | 2022-07-27 00:00 | Aspirin | [facility] | + + + + | 2022-07-29 00:00 | Aspirin | [facility] | + + + + | 2022-07-31 00:00 | Aspirin | [facility] | + + + + | 2022-08-05 00:00 | Aspirin | [facility] | + + + + | 2022-08-13 00:00 | Aspirin | [facility] | + + + + | 2022-08-21 00:00 | Aspirin | [facility] | + + + + | 2022-08-31 00:00 | Aspirin | [facility] | + + + + | 2022-12-05 00:00 | Aspirin | [facility] | + + + + | 2021-07-19 00:00 | calcium carbonate 500 mg | [facility] | | | (equivalent to calcium 200 | [address] | | | mg) chewable tablet | | + + + + | 2021-07-28 00:00 | calcium carbonate 500 mg | [facility] | | | (equivalent to calcium 200 | Specialties | | | mg) chewable tablet | | + + + + | 2022-07-14 00:00 | CEFPODOXIME PROXETIL | [facility] | + + + + | 2021-08-15 00:00 | GABAPENTIN | [facility] | + + + + | 2021-11-14 00:00 | GABAPENTIN | [facility] | + + + + | 2021-12-03 00:00 | GABAPENTIN | [facility] | + + + + | 2021-12-30 00:00 | GABAPENTIN | [facility] | + + + + | 2022-01-12 00:00 | GABAPENTIN | [facility] | + + + + | 2022-02-02 00:00 | GABAPENTIN | [facility] | + + + + | 2022-02-06 00:00 | GABAPENTIN | [facility] | + + + + | 2022-02-09 00:00 | GABAPENTIN | [facility] | + + + + | 2022-02-19 00:00 | GABAPENTIN | [facility] | + + + + | 2022-02-28 00:00 | GABAPENTIN | [facility] | + + + + | 2022-04-12 00:00 | GABAPENTIN | [facility] | + + + + | 2022-04-19 00:00 | GABAPENTIN | [facility] | + + + + | 2022-06-08 00:00 | GABAPENTIN | [facility] | + + + + | 2022-06-16 00:00 | GABAPENTIN | [facility] | + + + + | 2022-06-19 00:00 | GABAPENTIN | [facility] | + + + + | 2022-07-08 00:00 | GABAPENTIN | [facility] | + + + + | 2022-07-11 00:00 | GABAPENTIN | [facility] | + + + + | 2022-07-14 00:00 | GABAPENTIN | [facility] | + + + + | 2022-07-22 00:00 | GABAPENTIN | [facility] | + + + + | 2022-07-24 00:00 | GABAPENTIN | [facility] | + + + + | 2022-07-27 00:00 | GABAPENTIN | [facility] | + + + + | 2022-07-29 00:00 | GABAPENTIN | [facility] | + + + + | 2022-07-31 00:00 | GABAPENTIN | [facility] | + + + + | 2022-08-05 00:00 | GABAPENTIN | [facility] | + + + + | 2022-08-13 00:00 | GABAPENTIN | [facility] | + + + + | 2022-08-21 00:00 | GABAPENTIN | [facility] | + + + + | 2022-08-31 00:00 | GABAPENTIN | [facility] | + + + + | 2022-12-05 00:00 | GABAPENTIN | [facility] | + + + + | 2021-07-30 00:00 | gabapentin 300 mg oral | [facility] | | | capsule | Specialties | + + + + | 2021-08-01 00:00 | gabapentin 300 mg oral | [facility] | | | capsule | Department | + + + + | 2021-08-01 00:00 | gabapentin 300 mg oral | [facility] | | | capsule | Specialties | + + + + | 2020-04-28 00:00 | gemfibrozil 600 MG Oral | [facility] | | | Tablet | | + + + + | 2022-02-23 00:00 | gemfibrozil 600 MG Oral | [facility] | | | Tablet | | + + + + | 2021-07-24 00:00 | glucagon (rdna) 1 mg | [facility] | | | injection | Care 7[address] Floor | + + + + | 2021-10-05 00:00 | insulin aspart 100 unt/ml | [facility] | | | injectable solution | [address] | + + + + | 2022-07-31 00:00 | LEVOFLOXACIN | [facility] | + + + + | 2022-07-31 00:00 | LEVOFLOXACIN | [facility] | + + + + | 2022-07-31 00:00 | LEVOFLOXACIN | [facility] | + + + + | 2021-10-05 00:00 | 2 ml metoclopramide 5 | [facility] | | | mg/ml injection | [address] | + + + + | 2022-02-02 00:00 | ONDANSETRON | [facility] | + + + + | 2022-02-02 00:00 | ONDANSETRON | [facility] | + + + + | 2022-02-19 00:00 | ONDANSETRON | [facility] | + + + + | 2022-02-19 00:00 | ONDANSETRON | [facility] | + + + + | 2022-06-19 00:00 | ONDANSETRON | [facility] | + + + + | 2022-06-19 00:00 | ONDANSETRON | [facility] | + + + + | 2022-06-19 00:00 | ONDANSETRON | [facility] | + + + + | 2022-06-19 00:00 | ONDANSETRON | [facility] | + + + + | 2022-07-29 00:00 | ONDANSETRON | [facility] | + + + + | 2022-02-06 00:00 | PIOGLITAZONE HCL | [facility] | + + + + | 2022-02-09 00:00 | PIOGLITAZONE HCL | [facility] | + + + + | 2022-02-19 00:00 | PIOGLITAZONE HCL | [facility] | + + + + | 2022-02-28 00:00 | PIOGLITAZONE HCL | [facility] | + + + + | 2022-04-12 00:00 | PIOGLITAZONE HCL | [facility] | + + + + | 2022-04-19 00:00 | PIOGLITAZONE HCL | [facility] | + + + + | 2022-06-08 00:00 | PIOGLITAZONE HCL | [facility] | + + + + | 2022-06-16 00:00 | PIOGLITAZONE HCL | [facility] | + + + + | 2022-06-19 00:00 | PIOGLITAZONE HCL | [facility] | + + + + | 2022-07-08 00:00 | PIOGLITAZONE HCL | [facility] | + + + + | 2022-07-11 00:00 | PIOGLITAZONE HCL | [facility] | + + + + | 2022-07-14 00:00 | PIOGLITAZONE HCL | [facility] | + + + + | 2022-07-22 00:00 | PIOGLITAZONE HCL | [facility] | + + + + | 2022-07-24 00:00 | PIOGLITAZONE HCL | [facility] | + + + + | 2022-07-27 00:00 | PIOGLITAZONE HCL | [facility] | + + + + | 2022-07-29 00:00 | PIOGLITAZONE HCL | [facility] | + + + + | 2022-07-31 00:00 | PIOGLITAZONE HCL | [facility] | + + + + | 2022-08-05 00:00 | PIOGLITAZONE HCL | [facility] | + + + + | 2022-08-13 00:00 | PIOGLITAZONE HCL | [facility] | + + + + | 2022-08-21 00:00 | PIOGLITAZONE HCL | [facility] | + + + + | 2022-08-31 00:00 | PIOGLITAZONE HCL | [facility] | + + + + | 2022-12-05 00:00 | PIOGLITAZONE HCL | [facility] | + + + + | 2020-05-19 00:00 | pioglitazone 30 MG Oral | [facility] | | | Tablet | | + + + + | 2021-02-12 00:00 | pioglitazone 30 MG Oral | [facility] | | | Tablet | | + + + + | 2021-02-24 00:00 | pioglitazone 30 MG Oral | [facility] | | | Tablet | | + + + + | 2021-12-11 00:00 | prazosin 2 MG Oral Capsule | [facility] | | | | | + + + + | 2021-08-15 00:00 | QUETIAPINE FUMARATE | [facility] | + + + + | 2021-11-14 00:00 | QUETIAPINE FUMARATE | [facility] | + + + + | 2021-12-03 00:00 | QUETIAPINE FUMARATE | [facility] | + + + + | 2021-12-30 00:00 | QUETIAPINE FUMARATE | [facility] | + + + + | 2022-01-12 00:00 | QUETIAPINE FUMARATE | [facility] | + + + + | 2022-02-02 00:00 | QUETIAPINE FUMARATE | [facility] | + + + + | 2022-02-06 00:00 | QUETIAPINE FUMARATE | [facility] | + + + + | 2022-02-09 00:00 | QUETIAPINE FUMARATE | [facility] | + + + + | 2022-02-19 00:00 | QUETIAPINE FUMARATE | [facility] | + + + + | 2022-02-28 00:00 | QUETIAPINE FUMARATE | [facility] | + + + + | 2022-04-12 00:00 | QUETIAPINE FUMARATE | [facility] | + + + + | 2022-04-19 00:00 | QUETIAPINE FUMARATE | [facility] | + + + + | 2022-06-08 00:00 | QUETIAPINE FUMARATE | [facility] | + + + + | 2022-06-16 00:00 | QUETIAPINE FUMARATE | [facility] | + + + + | 2022-06-19 00:00 | QUETIAPINE FUMARATE | [facility] | + + + + | 2022-07-08 00:00 | QUETIAPINE FUMARATE | [facility] | + + + + | 2022-07-11 00:00 | QUETIAPINE FUMARATE | [facility] | + + + + | 2022-07-14 00:00 | QUETIAPINE FUMARATE | [facility] | + + + + | 2022-07-22 00:00 | QUETIAPINE FUMARATE | [facility] | + + + + | 2022-07-24 00:00 | QUETIAPINE FUMARATE | [facility] | + + + + | 2022-07-27 00:00 | QUETIAPINE FUMARATE | [facility] | + + + + | 2022-07-29 00:00 | QUETIAPINE FUMARATE | [facility] | + + + + | 2022-07-31 00:00 | QUETIAPINE FUMARATE | [facility] | + + + + | 2022-08-05 00:00 | QUETIAPINE FUMARATE | [facility] | + + + + | 2022-08-13 00:00 | QUETIAPINE FUMARATE | [facility] | + + + + | 2022-08-21 00:00 | QUETIAPINE FUMARATE | [facility] | + + + + | 2022-08-31 00:00 | QUETIAPINE FUMARATE | [facility] | + + + + | 2022-12-05 00:00 | QUETIAPINE FUMARATE | [facility] | + + + + | 2021-03-18 00:00 | quetiapine (as quetiapine | [facility] | | | fumarate) 100 mg oral | | | | tablet | | + + + + | 2021-03-18 00:00 | quetiapine (as quetiapine | [facility] | | | fumarate) 100 mg oral | Care 7[address] Floor | | | tablet | | + + + + | 2021-07-19 00:00 | quetiapine (as quetiapine | [facility] | | | fumarate) 100 mg oral | Care 7[facility] Floor | | | tablet | | + + + + | 2021-07-27 00:00 | quetiapine (as quetiapine | [facility] | | | fumarate) 100 mg oral | Department | | | tablet | | + + + + | 2021-07-27 00:00 | quetiapine (as quetiapine | [facility] | | | fumarate) 100 mg oral | Specialties | | | tablet | | + + + + | 2021-07-27 00:00 | quetiapine (as quetiapine | [facility] | | | fumarate) 100 mg oral | [address] | | | tablet | | + + + + | 2021-02-12 00:00 | quetiapine 25 MG Oral | [facility] | | | Tablet | | + + + + | 2021-07-29 00:00 | quetiapine 25 mg oral | [facility] | | | tablet | Specialties | + + + + | 2021-07-20 00:00 | sennosides, longterm 8.6 mg | [facility] | | | oral tablet | [address] | + + + + | 2021-07-25 00:00 | sennosides, longterm 8.6 mg | [facility] | | | oral tablet | [address] | + + + + | 2021-07-29 00:00 | sennosides, longterm 8.6 mg | [facility] | | | oral tablet | Specialties | + + + + | 2021-06-18 00:00 | sumatriptan 50 mg oral | [facility] | | | tablet | | + + + + | 2021-06-18 00:00 | sumatriptan 50 mg oral | [facility] | | | tablet | Care 7[facility] Floor | + + + + | 2021-07-24 00:00 | acetaminophen 325 mg oral | [facility] | | | tablet | [facility] | + + + + | 2021-08-15 00:00 | METRONIDAZOLE | [facility] | + + + + | 2022-07-11 00:00 | SUCRALFATE | [facility] | + + + + | 2022-07-11 00:00 | SUCRALFATE | [facility] | + + + + | 2022-07-11 00:00 | SUCRALFATE | [facility] | + + + + | 2022-02-06 00:00 | QUETIAPINE FUMARATE | [facility] | + + + + | 2022-02-09 00:00 | QUETIAPINE FUMARATE | [facility] | + + + + | 2022-02-19 00:00 | QUETIAPINE FUMARATE | [facility] | + + + + | 2022-02-28 00:00 | QUETIAPINE FUMARATE | [facility] | + + + + | 2022-04-12 00:00 | QUETIAPINE FUMARATE | [facility] | + + + + | 2022-04-19 00:00 | QUETIAPINE FUMARATE | [facility] | + + + + | 2022-06-08 00:00 | QUETIAPINE FUMARATE | [facility] | + + + + | 2022-06-16 00:00 | QUETIAPINE FUMARATE | [facility] | + + + + | 2022-06-19 00:00 | QUETIAPINE FUMARATE | [facility] | + + + + | 2022-07-08 00:00 | QUETIAPINE FUMARATE | [facility] | + + + + | 2022-07-11 00:00 | QUETIAPINE FUMARATE | [facility] | + + + + | 2022-07-14 00:00 | QUETIAPINE FUMARATE | [facility] | + + + + | 2022-07-22 00:00 | QUETIAPINE FUMARATE | [facility] | + + + + | 2022-07-24 00:00 | QUETIAPINE FUMARATE | [facility] | + + + + | 2022-07-27 00:00 | QUETIAPINE FUMARATE | [facility] | + + + + | 2022-07-29 00:00 | QUETIAPINE FUMARATE | [facility] | + + + + | 2022-07-31 00:00 | QUETIAPINE FUMARATE | [facility] | + + + + | 2022-08-05 00:00 | QUETIAPINE FUMARATE | [facility] | + + + + | 2022-08-13 00:00 | QUETIAPINE FUMARATE | [facility] | + + + + | 2022-08-21 00:00 | QUETIAPINE FUMARATE | [facility] | + + + + | 2022-08-31 00:00 | QUETIAPINE FUMARATE | [facility] | + + + + | 2022-12-05 00:00 | QUETIAPINE FUMARATE | [facility] | + + + + | 2020-01-21 00:00 | quetiapine 200 MG Oral | [facility] | | | Tablet | | + + + + | 2021-04-15 00:00 | asa 81 mg chewable tablet | [facility] | + + + + | 2021-04-15 00:00 | asa 81 mg chewable tablet | [facility] | | | | Care 7[facility] Floor | + + + + | 2021-07-29 00:00 | fenofibrate 54 mg oral | [facility] | | | tablet | Specialties | + + + + | 2021-07-19 00:00 | nicotine 2 mg oral lozenge | [facility] | | | | Care 7th Floor | + + + + | 2021-07-27 00:00 | nicotine 2 mg oral lozenge | [facility] | | | | Department | + + + + | 2021-07-27 00:00 | nicotine 2 mg oral lozenge | [facility] | | | | Specialties | + + + + | 2021-07-27 00:00 | nicotine 2 mg oral lozenge | [facility] | | | | Care 7th Floor | + + + + | 2021-07-29 00:00 | nicotine 2 mg oral lozenge | [facility] | | | | Specialties | + + + + | 2020-01-25 00:00 | metFORMIN HCl 850 MG Oral | [facility] | | | Tablet | | + + + + | 2020-02-25 00:00 | metFORMIN HCl 850 MG Oral | [facility] | | | Tablet | | + + + + | 2021-02-12 00:00 | metFORMIN HCl 850 MG Oral | [facility] | | | [facility]t | | + + + + | 2022-08-31 00:00 | OMEPRAZOLE MAGNESIUM | [facility] | + + + + | 2022-08-31 00:00 | OMEPRAZOLE MAGNESIUM | [facility] | + + + + | 2021-11-14 00:00 | OMEPRAZOLE | [facility] | + + + + | 2021-12-03 00:00 | OMEPRAZOLE | [facility] | + + + + | 2021-12-30 00:00 | OMEPRAZOLE | [facility] | + + + + | 2022-01-12 00:00 | OMEPRAZOLE | [facility] | + + + + | 2022-02-02 00:00 | OMEPRAZOLE | [facility] | + + + + | 2022-02-06 00:00 | OMEPRAZOLE | [facility] | + + + + | 2022-02-09 00:00 | OMEPRAZOLE | [facility] | + + + + | 2022-02-19 00:00 | OMEPRAZOLE | [facility] | + + + + | 2022-02-28 00:00 | OMEPRAZOLE | [facility] | + + + + | 2022-04-12 00:00 | OMEPRAZOLE | [facility] | + + + + | 2022-04-19 00:00 | OMEPRAZOLE | [facility] | + + + + | 2022-06-08 00:00 | OMEPRAZOLE | [facility] | + + + + | 2022-06-16 00:00 | OMEPRAZOLE | [facility] | + + + + | 2022-06-19 00:00 | OMEPRAZOLE | [facility] | + + + + | 2022-07-08 00:00 | OMEPRAZOLE | [facility] | + + + + | 2022-07-11 00:00 | OMEPRAZOLE | [facility] | + + + + | 2022-07-14 00:00 | OMEPRAZOLE | [facility] | + + + + | 2022-07-22 00:00 | OMEPRAZOLE | [facility] | + + + + | 2022-07-24 00:00 | OMEPRAZOLE | [facility] | + + + + | 2022-07-27 00:00 | OMEPRAZOLE | [facility] | + + + + | 2022-07-29 00:00 | OMEPRAZOLE | [facility] | + + + + | 2022-07-31 00:00 | OMEPRAZOLE | [facility] | + + + + | 2022-08-05 00:00 | OMEPRAZOLE | [facility] | + + + + | 2022-08-13 00:00 | OMEPRAZOLE | [facility] | + + + + | 2022-08-21 00:00 | OMEPRAZOLE | [facility] | + + + + | 2022-08-31 00:00 | OMEPRAZOLE | [facility] | + + + + | 2022-12-05 00:00 | OMEPRAZOLE | [facility] | + + + + | 2021-10-05 00:00 | Drug or medicament | [facility] | | | (substance) | | + + + + | 2021-02-12 00:00 | Albuterol Sulfate HFA 108 | [facility] | | | (90 Base) MCG/ACT | | | | Inhalation Aerosol Solution | | | | | | + + + + | 2020-07-16 00:00 | Topamax 100 MG Oral Tablet | [facility] | | | | | + + + + | 2020-01-21 00:00 | Topiramate 25 MG Oral | [facility] | | | Tablet | | + + + + | 2020-02-13 00:00 | Fluzone | [facility] | | | | | + + + + | 2020-12-17 00:00 | Meloxicam 15 MG Oral | [facility] | | | Tablet | | + + + + | 2020-12-30 00:00 | Meloxicam 15 MG Oral | [facility] | | | Tablet | | + + + + | 2021-02-12 00:00 | QUEtiapine Fumarate 25 MG | [facility] | | | Oral Tablet | | + + + + | 2020-01-21 00:00 | QUEtiapine Fumarate 200 MG | [facility] | | Oral Tablet | | + + + + | 2021-03-16 00:00 | SEROquel 100 MG Oral | [facility] | | | Tablet | | + + + + | 2022-07-08 00:00 | NITROFURANTOIN MONOHYD | [facility] | | | MACROCR | | + + + + | 2022-07-08 00:00 | NITROFURANTOIN MONOHYD | [facility] | | | MACROCR | | + + + + | 2022-07-08 00:00 | NITROFURANTOIN MONOHYD | [facility] | | | MACROCR | | + + + + | 2022-07-08 00:00 | NITROFURANTOIN MONOHYD | [facility] | | | MACROCR | | + + + + | 2021-07-23 00:00 | citric acid 334 mg / | [facility] | | | sodium citrate 500 mg in 5 | Care 7th Floor | | | ml oral solution | | + + + + | 2022-04-12 00:00 | AMOXICILLIN/POTASSIUM CLAV | [facility] | | | | | + + + + | 2022-04-12 00:00 | AMOXICILLIN/POTASSIUM CLAV | [facility] | | | | | + + + + | 2021-07-19 00:00 | betamethasone 3 mg/ml (as | [facility] | | | betamethasone sodium | Care 7[facility] Floor | | | phosphate) / betamethasone | | | | acetate 3 mg/ml injectable | | | | suspension | | + + + + | 2020-05-19 00:00 | Pioglitazone HCl 30 MG | [facility] | | | Oral Tablet | | + + + + | 2021-02-12 00:00 | Pioglitazone HCl 30 MG | [facility] | | | Oral Tablet | | + + + + | 2021-02-24 00:00 | Pioglitazone HCl 30 MG | [facility] | | | Oral Tablet | | + + + + | 2021-09-21 00:00 | Actos 30 MG Oral Tablet | [facility] | | | | | + + + + | 2021-11-14 00:00 | INSULIN DETEMIR | [facility] | + + + + | 2021-12-03 00:00 | INSULIN DETEMIR | [facility] | + + + + | 2021-12-30 00:00 | INSULIN DETEMIR | [facility] | + + + + | 2022-01-12 00:00 | INSULIN DETEMIR | [facility] | + + + + | 2022-02-02 00:00 | INSULIN DETEMIR | [facility] | + + + + | 2022-02-06 00:00 | INSULIN DETEMIR | [facility] | + + + + | 2022-02-09 00:00 | INSULIN DETEMIR | [facility] | + + + + | 2022-02-19 00:00 | INSULIN DETEMIR | [facility] | + + + + 2022-02-28 00:00 | INSULIN DETEMIR | [facility] | + + + + | 2022-04-12 00:00 | INSULIN DETEMIR | [facility] | + + + + | 2022-04-19 00:00 | INSULIN DETEMIR | [facility] | + + + + | 2022-06-08 00:00 | INSULIN DETEMIR | [facility] | + + + + | 2022-06-16 00:00 | INSULIN DETEMIR | [facility] | + + + + | 2022-06-19 00:00 | INSULIN DETEMIR | [facility] | + + + + | 2022-07-08 00:00 | INSULIN DETEMIR | [facility] | + + + + | 2022-07-11 00:00 | INSULIN DETEMIR | [facility] | + + + + | 2022-07-14 00:00 | INSULIN DETEMIR | [facility] | + + + + | 2022-07-22 00:00 | INSULIN DETEMIR | [facility] | + + + + | 2022-07-24 00:00 | INSULIN DETEMIR | [facility] | + + + + | 2022-07-27 00:00 | INSULIN DETEMIR | [facility] | + + + + | 2022-07-29 00:00 | INSULIN DETEMIR | [facility] | + + + + | 2022-07-31 00:00 | INSULIN DETEMIR | [facility] | + + + + | 2022-08-05 00:00 | INSULIN DETEMIR | [facility] | + + + + | 2022-08-13 00:00 | INSULIN DETEMIR | [facility] | + + + + | 2022-08-21 00:00 | INSULIN DETEMIR | [facility] | + + + + | 2022-08-31 00:00 | INSULIN DETEMIR | [facility] | + + + + | 2022-12-05 00:00 | INSULIN DETEMIR | [facility] | + + + + | 2021-08-15 00:00 | NYSTATIN | [facility] | + + + + | 2021-11-14 00:00 | NYSTATIN | [facility] | + + + + | 2021-12-03 00:00 | NYSTATIN | [facility] | + + + + | 2021-12-30 00:00 | NYSTATIN | [facility] | + + + + | 2022-01-12 00:00 | NYSTATIN | [facility] | + + + + | 2022-02-02 00:00 | NYSTATIN | [facility] | + + + + | 2022-02-06 00:00 | NYSTATIN | [facility] | + + + + | 2022-02-09 00:00 | NYSTATIN | [facility] | + + + + | 2022-02-19 00:00 | NYSTATIN | [facility] | + + + + | 2022-02-28 00:00 | NYSTATIN | [facility] | + + + + | 2022-04-12 00:00 | NYSTATIN | [facility] | + + + + | 2022-04-19 00:00 | NYSTATIN | [facility] | + + + + | 2022-06-08 00:00 | NYSTATIN | [facility] | + + + + | 2022-06-16 00:00 | NYSTATIN | [facility] | + + + + | 2022-06-19 00:00 | NYSTATIN | [facility] | + + + + | 2022-07-08 00:00 | NYSTATIN | [facility] | + + + + | 2022-07-11 00:00 | NYSTATIN | [facility] | + + + + | 2022-07-14 00:00 | NYSTATIN | [facility] | + + + + | 2022-07-22 00:00 | NYSTATIN | [facility] | + + + + | 2022-07-24 00:00 | NYSTATIN | [facility] | + + + + | 2022-07-27 00:00 | NYSTATIN | [facility] | + + + + | 2022-07-29 00:00 | NYSTATIN | [facility] | + + + + | 2022-07-31 00:00 | NYSTATIN | [facility] | + + + + | 2022-08-05 00:00 | NYSTATIN | [facility] | + + + + | 2022-08-13 00:00 | NYSTATIN | [facility] | + + + + | 2022-08-21 00:00 | NYSTATIN | [facility] | + + + + | 2022-08-31 00:00 | NYSTATIN | [facility] | + + + + | 2022-12-05 00:00 | NYSTATIN | [facility] | + + + + | 2021-07-21 00:00 | nystatin 100,000 unt/gm | [facility] | | | topical powder | Care 7th Floor | + + + + | 2021-07-27 00:00 | nystatin 100,000 unt/gm | [facility] | | | topical powder | Department | + + + + | 2021-07-27 00:00 | nystatin 100,000 unt/gm | [facility] | | | topical powder | Specialties | + + + + | 2021-07-27 00:00 | nystatin 100,000 unt/gm | [facility] | | | topical powder | Care 7th Floor | + + + + | 2020-04-18 00:00 | Omeprazole 20 MG Oral | [facility] | | | Capsule Delayed Release | | + + + + | 2021-02-24 00:00 | Omeprazole 20 MG Oral | [facility] | | | Capsule Delayed Release | | + + + + | 2021-06-08 00:00 | Omeprazole 20 MG Oral | [facility] | | | Capsule Delayed Release | | + + + + | 2020-01-25 00:00 | Ondansetron 4 MG Oral | [facility] | | | Tablet Disintegrating | | + + + + | 2020-07-16 00:00 | Ondansetron 4 MG Oral | [facility] | | | Tablet Disintegrating | | + + + + | 2021-02-12 00:00 | Ondansetron 4 MG Oral | [facility] | | | Tablet Disintegrating | | + + + + | 2021-09-21 00:00 | metFORMIN HCl ER 500 MG | [facility] | | | Oral Tablet Extended | | | | Release 24 Hour | | + + + + | 2022-02-12 00:00 | [place] 5-325 MG Oral Tablet | [facility] | | | | | + + + + | 2021-07-24 00:00 | dextrose 50 % in 50 ml | [facility] | | | prefilled syringe | Care 7th Floor | + + + + | 2021-07-28 00:00 | dextrose 50 % in 50 ml | [facility] | | | prefilled syringe | Specialties | + + + + | 2021-10-05 00:00 | [id number] 200 actuat | [facility] | | | albuterol 0.09 mg/actuat | | | | metered dose inhaler | | | | [proventil] | | + + + + | 2021-10-05 00:00 | [id number] 200 actuat | [facility] | | | albuterol 0.09 mg/actuat | [facility] 7th Floor | | | metered dose inhaler | | | | [proventil] | | + + + + | 2020-07-16 00:00 | {7 (ethinyl estradiol 0.025 | [facility] | | | MG / norgestimate 0.18 MG | | | | Oral Tablet) / 7 (ethinyl | | | | estradiol 0.025 MG / | | | | norgestimate 0.215 MG Oral | | | | Tablet) / 7 (ethinyl | | | | estradiol 0.025 MG / | | | | norgestimate 0.25 MG Oral | | | | Tablet) / 7 (inert | | | | ingredients 1 MG Oral | | | | Tablet) } Pack [Ortho | | | | Tri-Cyclen Lo 28 Day] | | + + + + | 2021-08-15 00:00 | FENOFIBRATE | [facility] | + + + + | 2021-08-15 00:00 | FENOFIBRATE | [facility] | + + + + | 2021-08-15 00:00 | FENOFIBRATE | [facility] | + + + + | 2021-08-15 00:00 | FENOFIBRATE | [facility] | + + + + | 2021-11-14 00:00 | FENOFIBRATE | [facility] | + + + + | 2021-12-03 00:00 | FENOFIBRATE | [facility] | + + + + | 2021-12-30 00:00 | FENOFIBRATE | [facility] | + + + + | 2022-01-12 00:00 | FENOFIBRATE | [facility] | + + + + | 2022-02-02 00:00 | FENOFIBRATE | [facility] | + + + + | 2022-02-06 00:00 | FENOFIBRATE | [facility] | + + + + | 2022-02-09 00:00 | FENOFIBRATE | [facility] | + + + + | 2022-02-19 00:00 | FENOFIBRATE | [facility] | + + + + | 2022-02-28 00:00 | FENOFIBRATE | [facility] | + + + + | 2022-04-12 00:00 | FENOFIBRATE | [facility] | + + + + | 2022-04-19 00:00 | FENOFIBRATE | [facility] | + + + + | 2022-06-08 00:00 | FENOFIBRATE | [facility] | + + + + | 2022-06-16 00:00 | FENOFIBRATE | [facility] | + + + + | 2022-06-19 00:00 | FENOFIBRATE | [facility] | + + + + | 2022-07-08 00:00 | FENOFIBRATE | [facility] | + + + + | 2022-07-11 00:00 | FENOFIBRATE | [facility] | + + + + | 2022-07-14 00:00 | FENOFIBRATE | [facility] | + + + + | 2022-07-22 00:00 | FENOFIBRATE | [facility] | + + + + | 2022-07-24 00:00 | FENOFIBRATE | [facility] | + + + + | 2022-07-27 00:00 | FENOFIBRATE | [facility] | + + + + | 2022-07-29 00:00 | FENOFIBRATE | [facility] | + + + + | 2022-07-31 00:00 | FENOFIBRATE | [facility] | + + + + | 2022-08-05 00:00 | FENOFIBRATE | [facility] | + + + + | 2022-08-13 00:00 | FENOFIBRATE | [facility] | + + + + | 2022-08-21 00:00 | FENOFIBRATE | [facility] | + + + + | 2022-08-31 00:00 | FENOFIBRATE | [facility] | + + + + | 2022-12-05 00:00 | FENOFIBRATE | [facility] | + + + + | 2020-04-24 00:00 | fenofibrate 120 MG Oral | [facility] | | | Tablet | | + + + + | 2021-02-12 00:00 | fenofibrate 120 MG Oral | [facility] | | | Tablet | | + + + + | 2021-09-21 00:00 | fenofibrate 120 MG Oral | [facility] | | | Tablet | | + + + + | 2021-06-20 00:00 | fenofibrate 120 mg oral | [facility] | | | tablet | | + + + + | 2021-06-20 00:00 | fenofibrate 120 mg oral | [facility] | | | tablet | Care 7th Floor | + + + + | 2021-07-27 00:00 | fenofibrate 120 mg oral | [facility] | | | tablet | Department | + + + + | 2021-07-27 00:00 | fenofibrate 120 mg oral | [facility] | | | tablet | Specialties | + + + + | 2021-07-27 00:00 | fenofibrate 120 mg oral | [facility] | | | tablet | Care 7th Floor | + + + + | 2021-03-16 00:00 | MiraLax 17 GM Oral Packet | [facility] | | | | | + + + + | 2020-12-30 00:00 | Ventolin HFA 108 (90 Base) | [facility] | | | MCG/ACT Inhalation Aerosol | | | | Solution | | + + + + | 2021-07-20 00:00 | senna-time 8.6 mg oral | [facility] | | | tablet | Care 7th Floor | + + + + | 2021-07-25 00:00 | senna-time 8.6 mg oral | [facility] | | | tablet | Care 7th Floor | + + + + | 2021-07-29 00:00 | senna-time 8.6 mg oral | [facility] | | | tablet | Specialties | + + + + | 2020-07-16 00:00 | Ortho Tri-Cyclen Lo | [facility] | | | 0.18/0.215/0.25 MG-25 MCG | | | | Oral Tablet | | + + + + | 2020-04-28 00:00 | {11 (varenicline 0.5 MG | [facility] | | | Oral Tablet [Chantix]) / 42 | | | | (varenicline 1 MG Oral | | | | Tablet [Chantix]) } Pack | | | | [Chantix First Month of | | | | Therapy] | | + + + + | 2021-09-21 00:00 | {11 (varenicline 0.5 MG | [facility] | | | Oral Tablet [Chantix]) / 42 | | | | (varenicline 1 MG Oral | | | | Tablet [Chantix]) } Pack | | | | [Chantix First Month of | | | | Therapy] | | + + + + | 2020-12-03 00:00 | HYDROcodone-Acetaminophen | [facility] | | | 5-325 MG Oral Tablet | | + + + + | 2022-02-23 00:00 | HYDROcodone-Acetaminophen | [facility] | | | 5-325 MG Oral Tablet | | + + + + | 2021-02-12 00:00 | [id number] 60 ACTUAT | [facility] | | | albuterol 0.09 MG/ACTUAT | | | | Metered Dose Inhaler | | + + + + | 2021-09-21 00:00 | Rosuvastatin Calcium 20 MG | [facility] | | | Oral Tablet | | + + + + | 2020-01-08 00:00 | Rosuvastatin Calcium 40 MG | [facility] | | | Oral Tablet | | + + + + | 2021-02-12 00:00 | Rosuvastatin Calcium 40 MG | [facility] | | | Oral Tablet | | + + + + | 2021-03-16 00:00 | Cyclobenzaprine HCl 5 MG | [facility] | | | Oral Tablet | | + + + + | 2021-12-18 00:00 | Cyclobenzaprine HCl 5 MG | [facility] | | | Oral Tablet | | + + + + | 2021-11-11 00:00 | Systane 0.4-0.3% | [facility] | | | Ophthalmic Solution | | + + + + | 2021-08-15 00:00 | CYCLOBENZAPRINE HCL | [facility] | + + + + | 2021-11-14 00:00 | CYCLOBENZAPRINE HCL | [facility] | + + + + | 2021-12-03 00:00 | CYCLOBENZAPRINE HCL | [facility] | + + + + | 2021-12-30 00:00 | CYCLOBENZAPRINE HCL | [facility] | + + + + | 2022-01-12 00:00 | CYCLOBENZAPRINE HCL | [facility] | + + + + | 2022-02-02 00:00 | CYCLOBENZAPRINE HCL | [facility] | + + + + | 2022-02-06 00:00 | CYCLOBENZAPRINE HCL | [facility] | + + + + | 2022-02-09 00:00 | CYCLOBENZAPRINE HCL | [facility] | + + + + | 2022-02-19 00:00 | CYCLOBENZAPRINE HCL | [facility] | + + + + | 2022-02-28 00:00 | CYCLOBENZAPRINE HCL | [facility] | + + + + | 2022-04-12 00:00 | CYCLOBENZAPRINE HCL | [facility] | + + + + | 2022-04-19 00:00 | CYCLOBENZAPRINE HCL | [facility] | + + + + | 2022-06-08 00:00 | CYCLOBENZAPRINE HCL | [facility] | + + + + | 2022-06-16 00:00 | CYCLOBENZAPRINE HCL | [facility] | + + + + | 2022-06-19 00:00 | CYCLOBENZAPRINE HCL | [facility] | + + + + | 2022-07-08 00:00 | CYCLOBENZAPRINE HCL | [facility] | + + + + | 2022-07-11 00:00 | CYCLOBENZAPRINE HCL | [facility] | + + + + | 2022-07-14 00:00 | CYCLOBENZAPRINE HCL | [facility] | + + + + | 2022-07-22 00:00 | CYCLOBENZAPRINE HCL | [facility] | + + + + | 2022-07-24 00:00 | CYCLOBENZAPRINE HCL | [facility] | + + + + | 2022-07-27 00:00 | CYCLOBENZAPRINE HCL | [facility] | + + + + | 2022-07-29 00:00 | CYCLOBENZAPRINE HCL | [facility] | + + + + | 2022-07-31 00:00 | CYCLOBENZAPRINE HCL | [facility] | + + + + | 2022-08-05 00:00 | CYCLOBENZAPRINE HCL | [facility] | + + + + | 2022-08-13 00:00 | CYCLOBENZAPRINE HCL | [facility] | + + + + | 2022-08-21 00:00 | CYCLOBENZAPRINE HCL | [facility] | + + + + | 2022-08-31 00:00 | CYCLOBENZAPRINE HCL | [facility] | + + + + | 2022-12-05 00:00 | CYCLOBENZAPRINE HCL | [facility] | + + + + | 2021-03-16 00:00 | cyclobenzaprine | [facility] | | | hydrochloride 5 MG Oral | | | | Tablet | | + + + + | 2021-12-18 00:00 | cyclobenzaprine | [facility] | | | hydrochloride 5 MG Oral | | | | Tablet | | + + + + | 2021-03-30 00:00 | cyclobenzaprine | [facility] | | | hydrochloride 5 mg oral | | | | tablet | | + + + + | 2021-03-30 00:00 | cyclobenzaprine | [facility] | | | hydrochloride 5 mg oral | Care 7th Floor | | | tablet | | + + + + | 2021-07-27 00:00 | cyclobenzaprine | [facility] | | | hydrochloride 5 mg oral | Department | | | tablet | | + + + + | 2021-07-27 00:00 | cyclobenzaprine | [facility] | | | hydrochloride 5 mg oral | Specialties | | | tablet | | + + + + | 2021-07-27 00:00 | cyclobenzaprine | [facility] | | | hydrochloride 5 mg oral | Care 7th Floor | | | tablet | | + + + + | 2021-07-19 00:00 | cyclobenzaprine | [facility] | | | hydrochloride 10 mg oral | Care 7th Floor | | | tablet | | + + + + | 2022-02-06 00:00 | CHLORHEXIDINE GLUCONATE | [facility] | + + + + | 2022-02-09 00:00 | CHLORHEXIDINE GLUCONATE | [facility] | + + + + | 2022-02-19 00:00 | CHLORHEXIDINE GLUCONATE | [facility] | + + + + | 2022-02-28 00:00 | CHLORHEXIDINE GLUCONATE | [facility] | + + + + | 2022-04-12 00:00 | CHLORHEXIDINE GLUCONATE | [facility] | + + + + | 2022-04-19 00:00 | CHLORHEXIDINE GLUCONATE | [facility] | + + + + | 2022-06-08 00:00 | CHLORHEXIDINE GLUCONATE | [facility] | + + + + | 2022-02-08 00:00 | TRAMADOL HCL | [facility] | + + + + | 2022-02-08 00:00 | TRAMADOL HCL | [facility] | + + + + | 2021-07-19 00:00 | 3 ml insulin analog, | [facility] | | | glargine 100 unt/ml pen | Care 7th Floor | | | injector | | + + + + | 2021-07-20 00:00 | 3 ml insulin analog, | [facility] | | | glargine 100 unt/ml pen | Care 7th Floor | | | injector | | + + + + | 2021-07-22 00:00 | 3 ml insulin analog, | [facility] | | | glargine 100 unt/ml pen | Care 7th Floor | | | injector | | + + + + | 2021-07-23 00:00 | 3 ml insulin analog, | [facility] | | | glargine 100 unt/ml pen | Care 7th Floor | | | injector | | + + + + | 2021-07-24 00:00 | 3 ml insulin analog, | [facility] | | | glargine 100 unt/ml pen | Care 7th Floor | | | injector | | + + + + | 2021-07-25 00:00 | 3 ml insulin analog, | [facility] | | | glargine 100 unt/ml pen | Care 7th Floor | | | injector | | + + + + | 2021-07-26 00:00 | 3 ml insulin analog, | [facility] | | | glargine 100 unt/ml pen | Care 7th Floor | | | injector | | + + + + | 2021-07-27 00:00 | 3 ml insulin analog, | [facility] | | | glargine 100 unt/ml pen | Care 7th Floor | | | injector | | + + + + | 2021-07-29 00:00 | 3 ml insulin analog, | [facility] | | | glargine 100 unt/ml pen | Specialties | | | injector | | + + + + | 2020-03-28 00:00 | 3 ML insulin glargine 100 | [facility] | | | UNT/ML Pen Injector | | | | [Lantus] | | + + + + | 2021-02-12 00:00 | 3 ML insulin glargine 100 | [facility] | | | UNT/ML Pen Injector | | | | [Lantus] | | + + + + | 2021-11-16 00:00 | 3 ML insulin glargine 100 | [facility] | | | UNT/ML Pen Injector | | | | [Lantus] | | + + + + | 2021-08-15 00:00 | INSULIN | [facility] | | | GLARICKE,HUM.REC.ANLOG | | + + + + | 2021-11-14 00:00 | INSULIN | [facility] | | | GLAKIN,HUM.REC.ANLOG | | + + + + | 2021-12-03 00:00 | INSULIN | [facility] | | | GLARNAME,HUM.REC.ANLOG | | + + + + | 2021-12-30 00:00 | INSULIN | [facility] | | | GLARGINE,HUM.REC.ANLOG | | + + + + | 2022-01-12 00:00 | INSULIN | [facility] | | | GLARGINE,[facility].REC.ANLOG | | + + + + | 2022-02-02 00:00 | INSULIN | [facility] | | | GLARGINArelis,[facility].REC.ANLOG | | + + + + | 2022-02-06 00:00 | INSULIN | [facility] | | | GLARBRIGHT,[facility].REC.ANLOG | | + + + + | 2022-02-09 00:00 | INSULIN | [facility] | | | GLARNAMEHUM.REC.ANLOG | | + + + + | 2022-02-19 00:00 | INSULIN | [facility] | | | GLAHUM. KINRECPurnimaANLOG | | + + + + | 2022-02-28 00:00 | INSULIN | [facility] | | | REA BRAVO.RECPurnimaANLOG | | + + + + | 2022-04-12 00:00 | INSULIN | [facility] | | | LAWRENCEHUM.RECPurnimaANLOG | | + + + + | 2022-04-19 00:00 | INSULIN | [facility] | | | GLAKINHUM.RECPurnimaANLOG | | + + + + | 2022-06-08 00:00 | INSULIN | [facility] | | | GLARGINE,HUM.REC.ANLOG | | + + + + | 2022-06-16 00:00 | INSULIN | [facility] | | | GLARGINE,HUM.REC.ANLOG | | + + + + | 2022-06-19 00:00 | INSULIN | [facility] | | | GLARGINE,HUM.REC.ANLOG | | + + + + | 2022-07-08 00:00 | INSULIN | [facility] | | | GLARGINE,HUM.REC.ANLOG | | + + + + | 2022-07-11 00:00 | INSULIN | [facility] | | | GLARGINE,HUM.REC.ANLOG | | + + + + | 2022-07-14 00:00 | INSULIN | [facility] | | | GLARICKE,HUM.REC.ANLOG | | + + + + | 2022-07-22 00:00 | INSULIN | [facility] | | | GLARICKE,HUM.REC.ANLOG | | + + + + | 2022-07-24 00:00 | INSULIN | [facility] | | | GLARNAME,HUM.REC.ANLOG | | + + + + | 2022-07-27 00:00 | INSULIN | [facility] | | | GLARGINE,HUM.REC.ANLOG | | + + + + | 2022-07-29 00:00 | INSULIN | [facility] | | | [facility].RE[facility]LOG | | + + + + | 2022-07-31 00:00 | INSULIN | [facility] | | | [facility]WRENC[facility]ITALPurn[facility] | | + + + + | 2022-08-05 00:00 | INSULIN | [facility] | | | [facility] | | + + + + | 2022-08-13 00:00 | INSULIN | [facility] | | | HUM. LAWRENCERECPurnimaANLOG | | + + + + | 2022-08-21 00:00 | INSULIN | [facility] | | | GLAKINHUM.REC.ANLOG | | + + + + | 2022-08-31 00:00 | INSULIN | [facility] | | | GLAIrenaGINEHUM.REC.ANLOG | | + + + + | 2022-12-05 00:00 | INSULIN | [facility] | | | GLAKINHUM.REC.ANLOG | | + + + + | 2021-02-12 00:00 | lantus 300 unt per 3 ml | [facility] | | | solostar pen | | + + + + | 2021-02-12 00:00 | lantus 300 unt per 3 ml | [facility] | | | solostar pen | Care [address] Floor | + + + + | 2021-07-19 00:00 | lantus 300 unt per 3 ml | [facility] | | | solostar pen | Care 7[address] Floor | + + + + | 2021-07-20 00:00 | lantus 300 unt per 3 ml | [facility] | | | solostar pen | Care 7th Floor | + + + + | 2021-07-22 00:00 | lantus 300 unt per 3 ml | [facility] | | | solostar pen | Care 7th Floor | + + + + | 2021-07-23 00:00 | lantus 300 unt per 3 ml | [facility] | | | solostar pen | Care 7th Floor | + + + + | 2021-07-24 00:00 | lantus 300 unt per 3 ml | [facility] | | | solostar pen | Care 7th Floor | + + + + | 2021-07-25 00:00 | lantus 300 unt per 3 ml | [facility] | | | solostar pen | Care 7th Floor | + + + + | 2021-07-26 00:00 | lantus 300 unt per 3 ml | [facility] | | | solostar pen | Care 7th Floor | + + + + | 2021-07-27 00:00 | lantus 300 unt per 3 ml | [facility] | | | solostar pen | Care 7th Floor | + + + + | 2021-07-29 00:00 | lantus 300 unt per 3 ml | [facility] | | | solostar pen | Specialties | + + + + | 2020-01-18 00:00 | 3 ML insulin detemir 100 | [facility] | | | UNT/ML Pen Injector | | | | [Levemir] | | + + + + | 2021-07-19 00:00 | calcium chloride 0.0014 | [facility] | | | meq/ml / k+ chloride 0.004 | Care 7th Floor | | | meq/ml / nacl 0.103 meq/ml | | | | / sodium lactate 0.028 | | | | meq/ml injectable solution | | + + + + | 2021-07-23 00:00 | calcium chloride 0.0014 | [facility] | | | meq/ml / k+ chloride 0.004 | Care [facility] Floor | | | meq/ml / nacl 0.103 meq/ml | | | | / sodium lactate 0.028 | | | | meq/ml injectable solution | | + + + + | 2021-07-30 00:00 | calcium chloride 0.0014 | [facility] | | | meq/ml / k+ chloride 0.004 | Specialties | | | meq/ml / nacl 0.103 meq/ml | | | | / sodium lactate 0.028 | | | | meq/ml injectable solution | | + + + + | 2021-08-01 00:00 | calcium chloride 0.0014 | [facility] | | | meq/ml / k+ chloride 0.004 | Specialties | | | meq/ml / nacl 0.103 meq/ml | | | | / sodium lactate 0.028 | | | | meq/ml injectable solution | | + + + + | 2019-06-23 00:00 | | [facility] | | | SULFAMETHOXAZOLE/TRIMETHOPR | | | | IM DS | | + + + + | 2019-06-23 00:00 | | [facility] | | | SULFAMETHOXAZOLE/TRIMETHOPR | | | | IM DS | | + + + + | 2019-06-23 00:00 | | [facility] | | | SULFAMETHOXAZOLE/TRIMETHOPR | | | | IM DS | | + + + + | 2019-06-23 00:00 | | [facility] | | | SULFAMETHOXAZOLE/TRIMETHOPR | | | | IM DS | | + + + + | 2021-07-24 00:00 | enoxaparin sodium 40 mg in | [facility] | | | 0.4 ml prefilled syringe | Care 7th Floor | + + + + | 2021-07-19 00:00 | amylase 55644 unt / lipase | [facility] | | | 25255 unt / protease [id number] | Care [address] Floor | | | unt delayed release oral | | | | capsule | | + + + + | 2021-07-27 00:00 | amylase [id number] unt / lipase | [facility] | | | [id number] unt / protease [id number] | Department | | | unt delayed release oral | | | | capsule | | + + + + | 2021-07-27 00:00 | amylase 76105 unt / lipase | [facility] | | | 76645 unt / protease [id number] | Specialties | | | unt delayed release oral | | | | capsule | | + + + + | 2021-07-27 00:00 | amylase 18633 unt / lipase | [facility] | | | 21279 unt / protease [id number] | [facility] [address] [facility] | | | unt delayed release oral | | | | capsule | | + + + + | 2021-07-29 00:00 | amylase 42472 unt / lipase | [facility] | | | 67610 unt / protease [id number] | Specialties | | | unt delayed release oral | | | | capsule | | + + + + | 2021-07-20 00:00 | trazodone hydrochloride 50 | [facility] | | | mg oral tablet | [facility] [address] [facility] | + + + + | 2021-08-01 00:00 | trazodone hydrochloride 50 | [facility] | | | mg oral tablet | Specialties | + + + + | 2021-09-21 00:00 | amitriptyline | [facility] | | | hydrochloride 25 MG Oral | | | | Tablet | | + + + + | 2022-02-19 00:00 | HYDROCODONE | [facility] | | | BIT/ACETAMINOPHEN | | + + + + | 2022-07-24 00:00 | HYDROCODONE | [facility] | | | BIT/ACETAMINOPHEN | | + + + + | 2020-12-03 00:00 | acetaminophen 325 MG / | [facility] | | | hydrocodone bitartrate 5 MG | | | | Oral Tablet | | + + + + | 2022-02-23 00:00 | acetaminophen 325 MG / | [facility] | | | hydrocodone bitartrate 5 MG | | | | Oral Tablet | | + + + + | 2022-02-12 00:00 | acetaminophen 325 MG / | [facility] | | | hydrocodone bitartrate 5 MG | | | | Oral Tablet [[place]] | | + + + + | 2022-04-19 00:00 | HYDROCODONE | [facility] | | | BIT/ACETAMINOPHEN | | + + + + | 2022-04-19 00:00 | HYDROCODONE | [facility] | | | BIT/ACETAMINOPHEN | | + + + + | 2022-07-29 00:00 | HYDROCODONE | [facility] | | | BIT/ACETAMINOPHEN | | + + + + | 2021-07-23 00:00 | terbutaline sulfate 1 mg | [facility] | | | in 1 ml injection | [facility] [address] | + + + + | 2021-08-15 00:00 | ALBUTEROL SULFATE | [facility] | + + + + | 2021-08-15 00:00 | ALBUTEROL SULFATE | [facility] | + + + + | 2021-08-15 00:00 | ALBUTEROL SULFATE | [facility] | + + + + | 2021-08-15 00:00 | ALBUTEROL SULFATE | [facility] | + + + + | 2021-11-14 00:00 | ALBUTEROL SULFATE | [facility] | + + + + | 2021-12-03 00:00 | ALBUTEROL SULFATE | [facility] | + + + + | 2021-12-30 00:00 | ALBUTEROL SULFATE | [facility] | + + + + | 2022-01-12 00:00 | ALBUTEROL SULFATE | [facility] | + + + + | 2022-02-02 00:00 | ALBUTEROL SULFATE | [facility] | + + + + | 2022-02-06 00:00 | ALBUTEROL SULFATE | [facility] | + + + + | 2022-02-09 00:00 | ALBUTEROL SULFATE | [facility] | + + + + | 2022-02-19 00:00 | ALBUTEROL SULFATE | [facility] | + + + + | 2022-02-28 00:00 | ALBUTEROL SULFATE | [facility] | + + + + | 2022-04-12 00:00 | ALBUTEROL SULFATE | [facility] | + + + + | 2022-04-19 00:00 | ALBUTEROL SULFATE | [facility] | + + + + | 2022-06-08 00:00 | ALBUTEROL SULFATE | [facility] | + + + + | 2022-06-16 00:00 | ALBUTEROL SULFATE | [facility] | + + + + | 2022-06-19 00:00 | ALBUTEROL SULFATE | [facility] | + + + + | 2022-07-08 00:00 | ALBUTEROL SULFATE | [facility] | + + + + | 2022-07-11 00:00 | ALBUTEROL SULFATE | [facility] | + + + + | 2022-07-14 00:00 | ALBUTEROL SULFATE | [facility] | + + + + | 2022-07-22 00:00 | ALBUTEROL SULFATE | [facility] | + + + + | 2022-07-24 00:00 | ALBUTEROL SULFATE | [facility] | + + + + | 2022-07-27 00:00 | ALBUTEROL SULFATE | [facility] | + + + + | 2022-07-29 00:00 | ALBUTEROL SULFATE | [facility] | + + + + | 2022-07-31 00:00 | ALBUTEROL SULFATE | [facility] | + + + + | 2022-08-05 00:00 | ALBUTEROL SULFATE | [facility] | + + + + | 2022-08-13 00:00 | ALBUTEROL SULFATE | [facility] | + + + + | 2022-08-21 00:00 | ALBUTEROL SULFATE | [facility] | + + + + | 2022-08-31 00:00 | ALBUTEROL SULFATE | [facility] | + + + + | 2022-12-05 00:00 | ALBUTEROL SULFATE | [facility] | + + + + | 2020-12-30 00:00 | [id number] 200 ACTUAT | [facility] | | | albuterol 0.09 MG/ACTUAT | | | | Metered Dose Inhaler | | | | [Ventolin] | | + + + + | 2020-01-08 00:00 | rosuvastatin calcium 40 MG | [facility] | | | Oral Tablet | | + + + + | 2021-02-12 00:00 | rosuvastatin calcium 40 MG | [facility] | | | Oral Tablet | | + + + + | 2021-11-14 00:00 | ROSUVASTATIN CALCIUM | [facility] | + + + + | 2021-12-03 00:00 | ROSUVASTATIN CALCIUM | [facility] | + + + + | 2021-12-30 00:00 | ROSUVASTATIN CALCIUM | [facility] | + + + + | 2022-01-12 00:00 | ROSUVASTATIN CALCIUM | [facility] | + + + + | 2022-02-02 00:00 | ROSUVASTATIN CALCIUM | [facility] | + + + + | 2022-02-06 00:00 | ROSUVASTATIN CALCIUM | [facility] | + + + + | 2022-02-09 00:00 | ROSUVASTATIN CALCIUM | [facility] | + + + + | 2022-02-19 00:00 | ROSUVASTATIN CALCIUM | [facility] | + + + + | 2022-02-28 00:00 | ROSUVASTATIN CALCIUM | [facility] | + + + + | 2022-04-12 00:00 | ROSUVASTATIN CALCIUM | [facility] | + + + + | 2022-04-19 00:00 | ROSUVASTATIN CALCIUM | [facility] | + + + + | 2022-06-08 00:00 | ROSUVASTATIN CALCIUM | [facility] | + + + + | 2022-06-16 00:00 | ROSUVASTATIN CALCIUM | [facility] | + + + + | 2022-06-19 00:00 | ROSUVASTATIN CALCIUM | [facility] | + + + + | 2022-07-08 00:00 | ROSUVASTATIN CALCIUM | [facility] | + + + + | 2022-07-11 00:00 | ROSUVASTATIN CALCIUM | [facility] | + + + + | 2022-07-14 00:00 | ROSUVASTATIN CALCIUM | [facility] | + + + + | 2022-07-22 00:00 | ROSUVASTATIN CALCIUM | [facility] | + + + + | 2022-07-24 00:00 | ROSUVASTATIN CALCIUM | [facility] | + + + + | 2022-07-27 00:00 | ROSUVASTATIN CALCIUM | [facility] | + + + + | 2022-07-29 00:00 | ROSUVASTATIN CALCIUM | [facility] | + + + + | 2022-07-31 00:00 | ROSUVASTATIN CALCIUM | [facility] | + + + + | 2022-08-05 00:00 | ROSUVASTATIN CALCIUM | [facility] | + + + + | 2022-08-13 00:00 | ROSUVASTATIN CALCIUM | [facility] | + + + + | 2022-08-21 00:00 | ROSUVASTATIN CALCIUM | [facility] | + + + + | 2022-08-31 00:00 | ROSUVASTATIN CALCIUM | [facility] | + + + + | 2022-12-05 00:00 | ROSUVASTATIN CALCIUM | [facility] | + + + + | 2022-02-06 00:00 | Rosuvastatin Calcium | [facility] | + + + + | 2022-02-09 00:00 | Rosuvastatin Calcium | [facility] | + + + + | 2022-02-19 00:00 | Rosuvastatin Calcium | [facility] | + + + + | 2022-02-28 00:00 | Rosuvastatin Calcium | [facility] | + + + + | 2022-04-12 00:00 | Rosuvastatin Calcium | [facility] | + + + + | 2022-04-19 00:00 | Rosuvastatin Calcium | [facility] | + + + + | 2022-06-08 00:00 | Rosuvastatin Calcium | [facility] | + + + + | 2022-06-16 00:00 | Rosuvastatin Calcium | [facility] | + + + + | 2022-06-19 00:00 | Rosuvastatin Calcium | [facility] | + + + + | 2022-07-08 00:00 | Rosuvastatin Calcium | [facility] | + + + + | 2022-07-11 00:00 | Rosuvastatin Calcium | [facility] | + + + + | 2022-07-14 00:00 | Rosuvastatin Calcium | [facility] | + + + + | 2022-07-22 00:00 | Rosuvastatin Calcium | [facility] | + + + + | 2022-07-24 00:00 | Rosuvastatin Calcium | [facility] | + + + + | 2022-07-27 00:00 | Rosuvastatin Calcium | [facility] | + + + + | 2022-07-29 00:00 | Rosuvastatin Calcium | [facility] | + + + + | 2022-07-31 00:00 | Rosuvastatin Calcium | [facility] | + + + + | 2022-08-05 00:00 | Rosuvastatin Calcium | [facility] | + + + + | 2022-08-13 00:00 | Rosuvastatin Calcium | [facility] | + + + + | 2022-08-21 00:00 | Rosuvastatin Calcium | [facility] | + + + + | 2022-08-31 00:00 | Rosuvastatin Calcium | [facility] | + + + + | 2022-12-05 00:00 | Rosuvastatin Calcium | [facility] | + + + + | 2021-09-21 00:00 | rosuvastatin calcium 20 MG | [facility] | | | Oral Tablet | | + + + + | 2021-09-21 00:00 | 24 HR metformin | [facility] | | | hydrochloride 500 MG | | | | Extended Release Oral | | | | Tablet | | + + + + | 2022-02-06 00:00 | METFORMIN HCL | [facility] | + + + + | 2022-02-09 00:00 | METFORMIN HCL | [facility] | + + + + | 2022-02-19 00:00 | METFORMIN HCL | [facility] | + + + + 2022-02-28 00:00 | METFORMIN HCL | [facility] | + + + + | 2022-04-12 00:00 | METFORMIN HCL | [facility] | + + + + | 2022-04-19 00:00 | METFORMIN HCL | [facility] | + + + + | 2022-06-08 00:00 | METFORMIN HCL | [facility] | + + + + | 2022-06-16 00:00 | METFORMIN HCL | [facility] | + + + + | 2022-06-19 00:00 | METFORMIN HCL | [facility] | + + + + | 2022-07-08 00:00 | METFORMIN HCL | [facility] | + + + + | 2022-07-11 00:00 | METFORMIN HCL | [facility] | + + + + | 2022-07-14 00:00 | METFORMIN HCL | [facility] | + + + + | 2022-07-22 00:00 | METFORMIN HCL | [facility] | + + + + | 2022-07-24 00:00 | METFORMIN HCL | [facility] | + + + + | 2022-07-27 00:00 | METFORMIN HCL | [facility] | + + + + | 2022-07-29 00:00 | METFORMIN HCL | [facility] | + + + + | 2022-07-31 00:00 | METFORMIN HCL | [facility] | + + + + | 2022-08-05 00:00 | METFORMIN HCL | [facility] | + + + + | 2022-08-13 00:00 | METFORMIN HCL | [facility] | + + + + | 2022-08-21 00:00 | METFORMIN HCL | [facility] | + + + + | 2022-08-31 00:00 | METFORMIN HCL | [facility] | + + + + | 2022-12-05 00:00 | METFORMIN HCL | [facility] | + + + + | 2021-08-15 00:00 | METFORMIN HCL | [facility] | + + + + | 2021-11-14 00:00 | METFORMIN HCL | [facility] | + + + + | 2021-12-03 00:00 | METFORMIN HCL | [facility] | + + + + | 2021-12-30 00:00 | METFORMIN HCL | [facility] | + + + + | 2022-01-12 00:00 | METFORMIN HCL | [facility] | + + + + | 2022-02-02 00:00 | METFORMIN HCL | [facility] | + + + + | 2022-02-06 00:00 | METFORMIN HCL | [facility] | + + + + | 2022-02-09 00:00 | METFORMIN HCL | [facility] | + + + + | 2022-02-19 00:00 | METFORMIN HCL | [facility] | + + + + | 2022-02-28 00:00 | METFORMIN HCL | [facility] | + + + + | 2022-04-12 00:00 | METFORMIN HCL | [facility] | + + + + | 2022-04-19 00:00 | METFORMIN HCL | [facility] | + + + + | 2022-06-08 00:00 | METFORMIN HCL | [facility] | + + + + | 2022-06-16 00:00 | METFORMIN HCL | [facility] | + + + + | 2022-06-19 00:00 | METFORMIN HCL | [facility] | + + + + | 2022-07-08 00:00 | METFORMIN HCL | [facility] | + + + + | 2022-07-11 00:00 | METFORMIN HCL | [facility] | + + + + | 2022-07-14 00:00 | METFORMIN HCL | [facility] | + + + + | 2022-07-22 00:00 | METFORMIN HCL | [facility] | + + + + | 2022-07-24 00:00 | METFORMIN HCL | [facility] | + + + + | 2022-07-27 00:00 | METFORMIN HCL | [facility] | + + + + | 2022-07-29 00:00 | METFORMIN HCL | [facility] | + + + + | 2022-07-31 00:00 | METFORMIN HCL | [facility] | + + + + | 2022-08-05 00:00 | METFORMIN HCL | [facility] | + + + + | 2022-08-13 00:00 | METFORMIN HCL | [facility] | + + + + | 2022-08-21 00:00 | METFORMIN HCL | [facility] | + + + + | 2022-08-31 00:00 | METFORMIN HCL | [facility] | + + + + | 2022-12-05 00:00 | METFORMIN HCL | [facility] | + + + + | 2021-07-27 00:00 | metformin hydrochloride | [facility] | | | 1000 mg oral tablet | Department | + + + + | 2021-07-27 00:00 | metformin hydrochloride | [facility] | | | 1000 mg oral tablet | Specialties | + + + + | 2021-07-27 00:00 | metformin hydrochloride | [facility] | | | 1000 mg oral tablet | Care [address] Floor | + + + + | 2021-04-30 00:00 | metformin hydrochloride | [facility] | | | 500 mg oral tablet | | + + + + | 2021-04-30 00:00 | metformin hydrochloride | [facility] | | | 500 mg oral tablet | Care [facility] | + + + + | 2021-07-24 00:00 | metformin hydrochloride | [facility] | | | 500 mg oral tablet | [facility] Floor | + + + + | 2021-07-27 00:00 | metformin hydrochloride | [facility] | | | 500 mg oral tablet | Care [address] Floor | + + + + | 2021-07-29 00:00 | metformin hydrochloride | [facility] | | | 500 mg oral tablet | Specialties | + + + + | 2021-11-14 00:00 | METFORMIN HCL | [facility] | + + + + | 2021-12-03 00:00 | METFORMIN HCL | [facility] | + + + + | 2021-12-30 00:00 | METFORMIN HCL | [facility] | + + + + | 2022-01-12 00:00 | METFORMIN HCL | [facility] | + + + + | 2022-02-02 00:00 | METFORMIN HCL | [facility] | + + + + | 2022-02-06 00:00 | METFORMIN HCL | [facility] | + + + + | 2022-02-09 00:00 | METFORMIN HCL | [facility] | + + + + | 2022-02-19 00:00 | METFORMIN HCL | [facility] | + + + + | 2022-02-28 00:00 | METFORMIN HCL | [facility] | + + + + | 2022-04-12 00:00 | METFORMIN HCL | [facility] | + + + + | 2022-04-19 00:00 | METFORMIN HCL | [facility] | + + + + | 2022-06-08 00:00 | METFORMIN HCL | [facility] | + + + + | 2022-06-16 00:00 | METFORMIN HCL | [facility] | + + + + | 2022-06-19 00:00 | METFORMIN HCL | [facility] | + + + + | 2022-07-08 00:00 | METFORMIN HCL | [facility] | + + + + | 2022-07-11 00:00 | METFORMIN HCL | [facility] | + + + + | 2022-07-14 00:00 | METFORMIN HCL | [facility] | + + + + | 2022-07-22 00:00 | METFORMIN HCL | [facility] | + + + + | 2022-07-24 00:00 | METFORMIN HCL | [facility] | + + + + | 2022-07-27 00:00 | METFORMIN HCL | [facility] | + + + + | 2022-07-29 00:00 | METFORMIN HCL | [facility] | + + + + | 2022-07-31 00:00 | METFORMIN HCL | [facility] | + + + + | 2022-08-05 00:00 | METFORMIN HCL | [facility] | + + + + | 2022-08-13 00:00 | METFORMIN HCL | [facility] | + + + + | 2022-08-21 00:00 | METFORMIN HCL | [facility] | + + + + | 2022-08-31 00:00 | METFORMIN HCL | [facility] | + + + + | 2022-12-05 00:00 | METFORMIN HCL | [facility] | + + + + | 2020-01-25 00:00 | metformin hydrochloride | [facility] | | | 850 MG Oral Tablet | | + + + + | 2020-02-25 00:00 | metformin hydrochloride | [facility] | | | 850 MG Oral Tablet | | + + + + | 2021-02-12 00:00 | metformin hydrochloride | [facility] | | | 850 MG Oral Tablet | | + + + + | 2021-11-14 00:00 | LIPASE/PROTEASE/AMYLASE | [facility] | + + + + | 2021-12-03 00:00 | LIPASE/PROTEASE/AMYLASE | [facility] | + + + + | 2021-12-30 00:00 | LIPASE/PROTEASE/AMYLASE | [facility] | + + + + | 2022-01-12 00:00 | LIPASE/PROTEASE/AMYLASE | [facility] | + + + + | 2022-02-02 00:00 | LIPASE/PROTEASE/AMYLASE | [facility] | + + + + | 2022-02-06 00:00 | LIPASE/PROTEASE/AMYLASE | [facility] | + + + + | 2022-02-09 00:00 | LIPASE/PROTEASE/AMYLASE | [facility] | + + + + | 2022-02-19 00:00 | LIPASE/PROTEASE/AMYLASE | [facility] | + + + + | 2022-02-28 00:00 | LIPASE/PROTEASE/AMYLASE | [facility] | + + + + | 2022-04-12 00:00 | LIPASE/PROTEASE/AMYLASE | [facility] | + + + + | 2022-04-19 00:00 | LIPASE/PROTEASE/AMYLASE | [facility] | + + + + | 2022-06-08 00:00 | LIPASE/PROTEASE/AMYLASE | [facility] | + + + + | 2022-06-16 00:00 | LIPASE/PROTEASE/AMYLASE | [facility] | + + + + | 2022-06-19 00:00 | LIPASE/PROTEASE/AMYLASE | [facility] | + + + + | 2022-07-08 00:00 | LIPASE/PROTEASE/AMYLASE | [facility] | + + + + | 2022-07-11 00:00 | LIPASE/PROTEASE/AMYLASE | [facility] | + + + + | 2022-07-14 00:00 | LIPASE/PROTEASE/AMYLASE | [facility] | + + + + | 2022-07-22 00:00 | LIPASE/PROTEASE/AMYLASE | [facility] | + + + + | 2022-07-24 00:00 | LIPASE/PROTEASE/AMYLASE | [facility] | + + + + | 2022-07-27 00:00 | LIPASE/PROTEASE/AMYLASE | [facility] | + + + + | 2022-07-29 00:00 | LIPASE/PROTEASE/AMYLASE | [facility] | + + + + | 2022-07-31 00:00 | LIPASE/PROTEASE/AMYLASE | [facility] | + + + + | 2022-08-05 00:00 | LIPASE/PROTEASE/AMYLASE | [facility] | + + + + | 2022-08-13 00:00 | LIPASE/PROTEASE/AMYLASE | [facility] | + + + + | 2022-08-21 00:00 | LIPASE/PROTEASE/AMYLASE | [facility] | + + + + | 2022-08-31 00:00 | LIPASE/PROTEASE/AMYLASE | [facility] | + + + + | 2022-12-05 00:00 | LIPASE/PROTEASE/AMYLASE | [facility] | + + + + | 2020-01-25 00:00 | amylase [id number] UNT / lipase | [facility] | | | 79088 UNT / protease [id number] | | | | UNT Delayed Release Oral | | | | Capsule [[facility]on] | | + + + + | 2021-02-12 00:00 | amylase [id number] UNT / lipase | [facility] | | | 43478 UNT / protease [id number] | | | | UNT Delayed Release Oral | | | | Capsule [[facility]] | | + + + + | 2021-09-21 00:00 | amylase [id number] UNT / lipase | [facility] | | | 04369 UNT / protease [id number] | | | | UNT Delayed Release Oral | | | | Capsule [Creon] | | + + + + | 2021-08-15 00:00 | LIPASE/PROTEASE/AMYLASE | [facility] | + + + + | 2021-11-14 00:00 | LIPASE/PROTEASE/AMYLASE | [facility] | + + + + | 2021-12-03 00:00 | LIPASE/PROTEASE/AMYLASE | [facility] | + + + + | 2021-12-30 00:00 | LIPASE/PROTEASE/AMYLASE | [facility] | + + + + | 2022-01-12 00:00 | LIPASE/PROTEASE/AMYLASE | [facility] | + + + + | 2022-02-02 00:00 | LIPASE/PROTEASE/AMYLASE | [facility] | + + + + | 2022-02-06 00:00 | LIPASE/PROTEASE/AMYLASE | [facility] | + + + + | 2022-02-09 00:00 | LIPASE/PROTEASE/AMYLASE | [facility] | + + + + | 2022-02-19 00:00 | LIPASE/PROTEASE/AMYLASE | [facility] | + + + + | 2022-02-28 00:00 | LIPASE/PROTEASE/AMYLASE | [facility] | + + + + | 2022-04-12 00:00 | LIPASE/PROTEASE/AMYLASE | [facility] | + + + + | 2022-04-19 00:00 | LIPASE/PROTEASE/AMYLASE | [facility] | + + + + | 2022-06-08 00:00 | LIPASE/PROTEASE/AMYLASE | [facility] | + + + + | 2022-06-16 00:00 | LIPASE/PROTEASE/AMYLASE | [facility] | + + + + | 2022-06-19 00:00 | LIPASE/PROTEASE/AMYLASE | [facility] | + + + + | 2022-07-08 00:00 | LIPASE/PROTEASE/AMYLASE | [facility] | + + + + | 2022-07-11 00:00 | LIPASE/PROTEASE/AMYLASE | [facility] | + + + + | 2022-07-14 00:00 | LIPASE/PROTEASE/AMYLASE | [facility] | + + + + | 2022-07-22 00:00 | LIPASE/PROTEASE/AMYLASE | [facility] | + + + + | 2022-07-24 00:00 | LIPASE/PROTEASE/AMYLASE | [facility] | + + + + | 2022-07-27 00:00 | LIPASE/PROTEASE/AMYLASE | [facility] | + + + + | 2022-07-29 00:00 | LIPASE/PROTEASE/AMYLASE | [facility] | + + + + | 2022-07-31 00:00 | LIPASE/PROTEASE/AMYLASE | [facility] | + + + + | 2022-08-05 00:00 | LIPASE/PROTEASE/AMYLASE | [facility] | + + + + | 2022-08-13 00:00 | LIPASE/PROTEASE/AMYLASE | [facility] | + + + + | 2022-08-21 00:00 | LIPASE/PROTEASE/AMYLASE | [facility] | + + + + | 2022-08-31 00:00 | LIPASE/PROTEASE/AMYLASE | [facility] | + + + + | 2022-12-05 00:00 | LIPASE/PROTEASE/AMYLASE | [facility] | + + + + | 2021-07-19 00:00 | creon (amylases 60,000 unt | [facility] | | | / endopeptidases 38,000 unt | Care [address] Floor | | | / lipase 12,000 unt) | | | | delayed release oral | | | | capsule | | + + + + | 2021-07-27 00:00 | creon (amylases 60,000 unt | [facility] | | | / endopeptidases 38,000 unt | Department | | | / lipase 12,000 unt) | | | | delayed release oral | | | | capsule | | + + + + | 2021-07-27 00:00 | creon (amylases 60,000 unt | [facility] | | | / endopeptidases 38,000 unt | Specialties | | | / lipase 12,000 unt) | | | | delayed release oral | | | | capsule | | + + + + | 2021-07-27 00:00 | creon (amylases 60,000 unt | [facility] | | | / endopeptidases 38,000 unt | Care [address] Floor | | | / lipase 12,000 unt) | | | | delayed release oral | | | | capsule | | + + + + | 2021-07-29 00:00 | creon (amylases 60,000 unt | [facility] | | | / endopeptidases 38,000 unt | Specialties | | | / lipase 12,000 unt) | | | | delayed release oral | | | | capsule | | + + + + | 2021-08-15 00:00 | INSULIN HUMAN LISPRO | [facility] | + + + + | 2022-02-06 00:00 | [facility] | [facility] | + + + + | 2022-02-09 00:00 | [facility]CL | [facility] | + + + + | 2022-02-19 00:00 | [facility]CL | [facility] | + + + + | 2022-02-28 00:00 | [facility]CL | [facility] | + + + + | 2022-04-12 00:00 | [facility]CL | [facility] | + + + + | 2022-04-19 00:00 | [facility] | [facility] | + + + + | 2022-06-08 00:00 | [facility] | [facility] | + + + + | 2022-06-16 00:00 | [facility] | [facility] | + + + + | 2022-06-19 00:00 | [facility] | [facility] | + + + + | 2022-07-08 00:00 | [facility] | [facility] | + + + + | 2022-07-11 00:00 | [facility]CL | [facility] | + + + + | 2022-07-14 00:00 | [facility] | [facility] | + + + + | 2022-07-22 00:00 | [facility] | [facility] | + + + + | 2022-07-24 00:00 | [facility] | [facility] | + + + + | 2022-07-27 00:00 | [facility] | [facility] | + + + + | 2022-07-29 00:00 | [facility] | [facility] | + + + + | 2022-07-31 00:00 | [facility] | [facility] | + + + + | 2022-08-05 00:00 | [facility] | [facility] | + + + + | 2022-08-13 00:00 | [facility] | [facility] | + + + + | 2022-08-21 00:00 | [facility] | [facility] | + + + + | 2022-08-31 00:00 | [facility] | [facility] | + + + + | 2022-12-05 00:00 | [facility] | [facility] | + + + + | 2021-08-15 00:00 | [facility] | [facility] | + + + + | 2021-11-14 00:00 | [facility] | [facility] | + + + + | 2021-12-03 00:00 | [facility] | [facility] | + + + + | 2021-12-30 00:00 | [facility] | [facility] | + + + + | 2022-01-12 00:00 | [facility] | [facility] | + + + + | 2022-02-02 00:00 | [facility] | [facility] | + + + + | 2022-02-06 00:00 | [facility] | [facility] | + + + + | 2022-02-09 00:00 | [facility] | [facility] | + + + + | 2022-02-19 00:00 | [facility] | [facility] | + + + + | 2022-02-28 00:00 | [facility] | [facility] | + + + + | 2022-04-12 00:00 | [facility] | [facility] | + + + + | 2022-04-19 00:00 | [facility] | [facility] | + + + + | 2022-06-08 00:00 | [facility] | [facility] | + + + + | 2022-06-16 00:00 | [facility] | [facility] | + + + + | 2022-06-19 00:00 | [facility] | [facility] | + + + + | 2022-07-08 00:00 | [facility] | [facility] | + + + + | 2022-07-11 00:00 | [facility] | [facility] | + + + + | 2022-07-14 00:00 | [facility] | [facility] | + + + + | 2022-07-22 00:00 | BUSPIRONE HCL | [facility] | + + + + | 2022-07-24 00:00 | BUSPIRONE HCL | [facility] | + + + + | 2022-07-27 00:00 | BUSPIRONE HCL | [facility] | + + + + | 2022-07-29 00:00 | BUSPIRONE HCL | [facility] | + + + + | 2022-07-31 00:00 | BUSPIRONE HCL | [facility] | + + + + | 2022-08-05 00:00 | BUSPIRONE HCL | [facility] | + + + + | 2022-08-13 00:00 | BUSPIRONE HCL | [facility] | + + + + | 2022-08-21 00:00 | BUSPIRONE HCL | [facility] | + + + + | 2022-08-31 00:00 | BUSPIRONE HCL | [facility] | + + + + | 2022-12-05 00:00 | BUSPIRONE HCL | [facility] | + + + + | 2021-08-19 00:00 | buspirone hydrochloride 10 | [facility] | | | MG Oral Tablet | | + + + + | 2021-03-18 00:00 | buspirone hydrochloride 10 | [facility] | | | mg oral tablet | | + + + + | 2021-03-18 00:00 | buspirone hydrochloride 10 | [facility] | | | mg oral tablet | Care 7th Floor | + + + + | 2021-07-27 00:00 | buspirone hydrochloride 10 | [facility] | | | mg oral tablet | Department | + + + + | 2021-07-27 00:00 | buspirone hydrochloride 10 | [facility] | | | mg oral tablet | Specialties | + + + + | 2021-07-27 00:00 | buspirone hydrochloride 10 | [facility] | | | mg oral tablet | Care 7th Floor | + + + + | 2021-07-19 00:00 | buspirone hydrochloride 5 | [facility] | | | mg (buspirone 4.6 mg) oral | Care 7th Floor | | | tablet | | + + + + | 2021-07-20 00:00 | buspirone hydrochloride 5 | [facility] | | | mg (buspirone 4.6 mg) oral | Care 7th Floor | | | tablet | | + + + + | 2021-07-29 00:00 | buspirone hydrochloride 5 | [facility] | | | mg (buspirone 4.6 mg) oral | Specialties | | | tablet | | + + + + | 2021-06-19 00:00 | polyethylene glycol 3350 | [facility] | | | 17 gm powder for oral | | | | solution | | + + + + | 2021-06-19 00:00 | polyethylene glycol 3350 | [facility] | | | 17 gm powder for oral | Care 7th Floor | | | solution | | + + + + | 2021-07-19 00:00 | polyethylene glycol 3350 | [facility] | | | 17 gm powder for oral | Care 7th Floor | | | solution | | + + + + | 2021-07-25 00:00 | polyethylene glycol 3350 | [facility] | | | 17 gm powder for oral | Care 7th Floor | | | solution | | + + + + | 2021-07-27 00:00 | polyethylene glycol 3350 | [facility] | | | 17 gm powder for oral | Department | | | solution | | + + + + | 2021-07-27 00:00 | polyethylene glycol 3350 | [facility] | | | 17 gm powder for oral | Specialties | | | solution | | + + + + | 2021-07-27 00:00 | polyethylene glycol 3350 | [facility] | | | 17 gm powder for oral | Care 7th Floor | | | solution | | + + + + | 2021-07-29 00:00 | polyethylene glycol 3350 | [facility] | | | 17 gm powder for oral | Specialties | | | solution | | + + + + | 2021-03-16 00:00 | polyethylene glycol 3350 | [facility] | | | [address] MG Powder for Oral | | | | Solution [Miralax] | | + + + + | 2021-08-15 00:00 | POLYETHYLENE GLYCOL 3350 | [facility] | + + + + | 2021-11-14 00:00 | POLYETHYLENE GLYCOL 3350 | [facility] | + + + + | 2021-12-03 00:00 | POLYETHYLENE GLYCOL 3350 | [facility] | + + + + | 2021-12-30 00:00 | POLYETHYLENE GLYCOL 3350 | [facility] | + + + + | 2022-01-12 00:00 | POLYETHYLENE GLYCOL 3350 | [facility] | + + + + | 2022-02-02 00:00 | POLYETHYLENE GLYCOL 3350 | [facility] | + + + + | 2022-02-06 00:00 | POLYETHYLENE GLYCOL 3350 | [facility] | + + + + | 2022-02-09 00:00 | POLYETHYLENE GLYCOL 3350 | [facility] | + + + + | 2022-02-19 00:00 | POLYETHYLENE GLYCOL 3350 | [facility] | + + + + | 2022-02-28 00:00 | POLYETHYLENE GLYCOL 3350 | [facility] | + + + + | 2022-04-12 00:00 | POLYETHYLENE GLYCOL 3350 | [facility] | + + + + | 2022-04-19 00:00 | POLYETHYLENE GLYCOL 3350 | [facility] | + + + + | 2022-06-08 00:00 | POLYETHYLENE GLYCOL 3350 | [facility] | + + + + | 2022-06-16 00:00 | POLYETHYLENE GLYCOL 3350 | [facility] | + + + + | 2022-06-19 00:00 | POLYETHYLENE GLYCOL 3350 | [facility] | + + + + | 2022-07-08 00:00 | POLYETHYLENE GLYCOL 3350 | [facility] | + + + + | 2022-07-11 00:00 | POLYETHYLENE GLYCOL 3350 | [facility] | + + + + | 2022-07-14 00:00 | POLYETHYLENE GLYCOL 3350 | [facility] | + + + + | 2022-07-22 00:00 | POLYETHYLENE GLYCOL 3350 | [facility] | + + + + | 2022-07-24 00:00 | POLYETHYLENE GLYCOL 3350 | [facility] | + + + + | 2022-07-27 00:00 | POLYETHYLENE GLYCOL 3350 | [facility] | + + + + | 2022-07-29 00:00 | POLYETHYLENE GLYCOL 3350 | [facility] | + + + + | 2022-07-31 00:00 | POLYETHYLENE GLYCOL 3350 | [facility] | + + + + | 2022-08-05 00:00 | POLYETHYLENE GLYCOL 3350 | [facility] | + + + + | 2022-08-13 00:00 | POLYETHYLENE GLYCOL 3350 | [facility] | + + + + | 2022-08-21 00:00 | POLYETHYLENE GLYCOL 3350 | [facility] | + + + + | 2022-08-31 00:00 | POLYETHYLENE GLYCOL 3350 | [facility] | + + + + | 2022-12-05 00:00 | POLYETHYLENE GLYCOL 3350 | [facility] | + + + + | 2022-07-24 00:00 | TRANEXAMIC ACID | [facility] | + + + + | 2020-01-25 00:00 | levothyroxine sodium 0.1 | [facility] | | | MG Oral Tablet | | + + + + | 2021-02-12 00:00 | levothyroxine sodium 0.1 | [facility] | | | MG Oral Tablet | | + + + + | 2021-09-21 00:00 | levothyroxine sodium 0.1 | [facility] | | | MG Oral Tablet | | + + + + | 2021-07-27 00:00 | levothyroxine sodium 100 | [facility] | | | mcg oral tablet | Department | + + + + | 2021-07-27 00:00 | levothyroxine sodium 100 | [facility] | | | mcg oral tablet | Specialties | + + + + | 2021-07-27 00:00 | levothyroxine sodium 100 | [facility] | | | mcg oral tablet | Care [facility] Floor | + + + + | 2021-10-05 00:00 | levothyroxine sodium 100 | [facility] | | | mcg oral tablet | | + + + + | 2021-10-05 00:00 | levothyroxine sodium 100 | [facility] | | | mcg oral tablet | Care [address] [place] [address] | + + + + | 2021-07-19 00:00 | labetalol hcl 200 mg oral | [facility] | | | tablet | Care [address] [place] [address] | + + + + | 2021-07-27 00:00 | labetalol hcl 200 mg oral | [facility] | | | tablet | Department | + + + + | 2021-07-27 00:00 | labetalol hcl 200 mg oral | [facility] | | | tablet | Specialties | + + + + | 2021-07-27 00:00 | labetalol hcl 200 mg oral | [facility] | | | tablet | Care 7th Floor | + + + + | 2021-07-29 00:00 | labetalol hcl 200 mg oral | [facility] | | | tablet | Specialties | + + + + | 2021-07-25 00:00 | hydromorphone | [facility] | | | hydrochloride 2 mg oral | Care 7th Floor | | | tablet | | + + + + | 2021-07-27 00:00 | hydromorphone | [facility] | | | hydrochloride 2 mg oral | Specialties | | | tablet | | + + + + | 2021-07-27 00:00 | hydromorphone | [facility] | | | hydrochloride 2 mg oral | [address] | | | tablet | | + + + + | 2021-07-30 00:00 | hydromorphone | [facility] | | | hydrochloride 2 mg oral | Specialties | | | tablet | | + + + + | 2021-08-01 00:00 | hydromorphone | [facility] | | | hydrochloride 2 mg oral | Department | | | tablet | | + + + + | 2021-08-01 00:00 | hydromorphone | [facility] | | | hydrochloride 2 mg oral | Specialties | | | tablet | | + + + + | 2020-04-28 00:00 | Gemfibrozil 600 MG Oral | [facility] | | | Tablet | | + + + + | 2022-02-23 00:00 | Gemfibrozil 600 MG Oral | [facility] | | | Tablet | | + + + + | 2020-07-16 00:00 | EQ Nicotine 21 MG/24HR | [facility] | | | Transdermal Patch 24 Hour | | + + + + | 2021-08-15 00:00 | Levothyroxine Sodium | [facility] | + + + + | 2021-08-15 00:00 | Levothyroxine Sodium | [facility] | + + + + | 2021-08-15 00:00 | Levothyroxine Sodium | [facility] | + + + + | 2021-08-15 00:00 | Levothyroxine Sodium | [facility] | + + + + | 2021-11-14 00:00 | Levothyroxine Sodium | [facility] | + + + + | 2021-12-03 00:00 | Levothyroxine Sodium | [facility] | + + + + | 2021-12-30 00:00 | Levothyroxine Sodium | [facility] | + + + + | 2022-01-12 00:00 | Levothyroxine Sodium | [facility] | + + + + | 2022-02-02 00:00 | Levothyroxine Sodium | [facility] | + + + + | 2022-02-06 00:00 | Levothyroxine Sodium | [facility] | + + + + | 2022-02-09 00:00 | Levothyroxine Sodium | [facility] | + + + + | 2022-02-19 00:00 | Levothyroxine Sodium | [facility] | + + + + | 2022-02-28 00:00 | Levothyroxine Sodium | [facility] | + + + + | 2022-04-12 00:00 | Levothyroxine Sodium | [facility] | + + + + | 2022-04-19 00:00 | Levothyroxine Sodium | [facility] | + + + + | 2022-06-08 00:00 | Levothyroxine Sodium | [facility] | + + + + | 2022-06-16 00:00 | Levothyroxine Sodium | [facility] | + + + + | 2022-06-19 00:00 | Levothyroxine Sodium | [facility] | + + + + | 2022-07-08 00:00 | Levothyroxine Sodium | [facility] | + + + + | 2022-07-11 00:00 | Levothyroxine Sodium | [facility] | + + + + | 2022-07-14 00:00 | Levothyroxine Sodium | [facility] | + + + + | 2022-07-22 00:00 | Levothyroxine Sodium | [facility] | + + + + | 2022-07-24 00:00 | Levothyroxine Sodium | [facility] | + + + + | 2022-07-27 00:00 | Levothyroxine Sodium | [facility] | + + + + | 2022-07-29 00:00 | Levothyroxine Sodium | [facility] | + + + + | 2022-07-31 00:00 | Levothyroxine Sodium | [facility] | + + + + | 2022-08-05 00:00 | Levothyroxine Sodium | [facility] | + + + + | 2022-08-13 00:00 | Levothyroxine Sodium | [facility] | + + + + | 2022-08-21 00:00 | Levothyroxine Sodium | [facility] | + + + + | 2022-08-31 00:00 | Levothyroxine Sodium | [facility] | + + + + | 2022-12-05 00:00 | Levothyroxine Sodium | [facility] | + + + + | 2021-07-19 00:00 | levothyroxine sodium 0.025 | [facility] | | | mg oral tablet | Care 7th Floor | + + + + | 2021-07-29 00:00 | levothyroxine sodium 0.05 | [facility] | | | mg oral tablet | Specialties | + + + + | 2019-06-23 00:00 | LEVOTHYROXINE SODIUM | [facility] | + + + + | 2019-06-23 00:00 | LEVOTHYROXINE SODIUM | [facility] | + + + + | 2019-06-23 00:00 | LEVOTHYROXINE SODIUM | [facility] | + + + + | 2019-06-23 00:00 | LEVOTHYROXINE SODIUM | [facility] | + + + + | 2021-11-14 00:00 | LEVOTHYROXINE SODIUM | [facility] | + + + + | 2021-12-03 00:00 | LEVOTHYROXINE SODIUM | [facility] | + + + + | 2021-12-30 00:00 | LEVOTHYROXINE SODIUM | [facility] | + + + + | 2022-01-12 00:00 | LEVOTHYROXINE SODIUM | [facility] | + + + + | 2022-02-02 00:00 | LEVOTHYROXINE SODIUM | [facility] | + + + + | 2022-02-06 00:00 | LEVOTHYROXINE SODIUM | [facility] | + + + + | 2022-02-09 00:00 | LEVOTHYROXINE SODIUM | [facility] | + + + + | 2022-02-19 00:00 | LEVOTHYROXINE SODIUM | [facility] | + + + + | 2022-02-28 00:00 | LEVOTHYROXINE SODIUM | [facility] | + + + + | 2022-04-12 00:00 | LEVOTHYROXINE SODIUM | [facility] | + + + + | 2022-04-19 00:00 | LEVOTHYROXINE SODIUM | [facility] | + + + + | 2022-06-08 00:00 | LEVOTHYROXINE SODIUM | [facility] | + + + + | 2022-06-16 00:00 | LEVOTHYROXINE SODIUM | [facility] | + + + + | 2022-06-19 00:00 | LEVOTHYROXINE SODIUM | [facility] | + + + + | 2022-07-08 00:00 | LEVOTHYROXINE SODIUM | [facility] | + + + + | 2022-07-11 00:00 | LEVOTHYROXINE SODIUM | [facility] | + + + + | 2022-07-14 00:00 | LEVOTHYROXINE SODIUM | [facility] | + + + + | 2022-07-22 00:00 | LEVOTHYROXINE SODIUM | [facility] | + + + + | 2022-07-24 00:00 | LEVOTHYROXINE SODIUM | [facility] | + + + + | 2022-07-27 00:00 | LEVOTHYROXINE SODIUM | [facility] | + + + + | 2022-07-29 00:00 | LEVOTHYROXINE SODIUM | [facility] | + + + + | 2022-07-31 00:00 | LEVOTHYROXINE SODIUM | [facility] | + + + + | 2022-08-05 00:00 | LEVOTHYROXINE SODIUM | [facility] | + + + + | 2022-08-13 00:00 | LEVOTHYROXINE SODIUM | [facility] | + + + + | 2022-08-21 00:00 | LEVOTHYROXINE SODIUM | [facility] | + + + + | 2022-08-31 00:00 | LEVOTHYROXINE SODIUM | [facility] | + + + + | 2022-12-05 00:00 | LEVOTHYROXINE SODIUM | [facility] | + + + + | 2020-01-25 00:00 | 60 ACTUAT budesonide 0.09 | [facility] | | | MG/ACTUAT Dry Powder | | | | Inhaler [Pulmicort] | | + + + + | 2020-05-26 00:00 | 60 ACTUAT budesonide 0.09 | [facility] | | | MG/ACTUAT Dry Powder | | | | Inhaler [Pulmicort] | | + + + + | 2020-12-10 00:00 | 60 ACTUAT budesonide 0.09 | [id number] | | | MG/ACTUAT Dry Powder | | | | Inhaler [Pulmicort] | | + + + + | 2020-12-30 00:00 | 60 ACTUAT budesonide 0.09 | [id number] | | | MG/ACTUAT Dry Powder | | | | Inhaler [Pulmicort] | | + + + + | 2021-02-12 00:00 | 60 ACTUAT budesonide 0.09 | [facility] | | | MG/ACTUAT Dry Powder | | | | Inhaler [Pulmicort] | | + + + + | 2021-03-16 00:00 | 60 actuat budesonide 0.09 | [facility] | | | mg/actuat dry powder | | | | inhaler [pulmicort] | | + + + + | 2021-03-16 00:00 | 60 actuat budesonide 0.09 | [facility] | | | mg/actuat dry powder | [address] | | | inhaler [pulmicort] | | + + + + | 2021-07-27 00:00 | 60 actuat budesonide 0.09 | [facility] | | | mg/actuat dry powder | Department | | | inhaler [pulmicort] | | + + + + | 2021-07-27 00:00 | 60 actuat budesonide 0.09 | [facility] | | | mg/actuat dry powder | Specialties | | | inhaler [pulmicort] | | + + + + | 2021-07-27 00:00 | 60 actuat budesonide 0.09 | [facility] | | | mg/actuat dry powder | Care 7th Floor | | | inhaler [pulmicort] | | + + + + | 2021-08-15 00:00 | BUDESONIDE | [facility] | + + + + | 2021-08-15 00:00 | BUDESONIDE | [facility] | + + + + | 2021-08-15 00:00 | BUDESONIDE | [facility] | + + + + | 2021-08-15 00:00 | BUDESONIDE | [facility] | + + + + | 2021-11-14 00:00 | BUDESONIDE | [facility] | + + + + | 2021-12-03 00:00 | BUDESONIDE | [facility] | + + + + | 2021-12-30 00:00 | BUDESONIDE | [facility] | + + + + | 2022-01-12 00:00 | BUDESONIDE | [facility] | + + + + | 2022-02-02 00:00 | BUDESONIDE | [facility] | + + + + | 2022-02-06 00:00 | BUDESONIDE | [facility] | + + + + | 2022-02-09 00:00 | BUDESONIDE | [facility] | + + + + | 2022-02-19 00:00 | BUDESONIDE | [facility] | + + + + | 2022-02-28 00:00 | BUDESONIDE | [facility] | + + + + | 2022-04-12 00:00 | BUDESONIDE | [facility] | + + + + | 2022-04-19 00:00 | BUDESONIDE | [facility] | + + + + | 2022-06-08 00:00 | BUDESONIDE | [facility] | + + + + | 2022-06-16 00:00 | BUDESONIDE | [facility] | + + + + | 2022-06-19 00:00 | BUDESONIDE | [facility] | + + + + | 2022-07-08 00:00 | BUDESONIDE | [facility] | + + + + | 2022-07-11 00:00 | BUDESONIDE | [facility] | + + + + | 2022-07-14 00:00 | BUDESONIDE | [facility] | + + + + | 2022-07-22 00:00 | BUDESONIDE | [facility] | + + + + | 2022-07-24 00:00 | BUDESONIDE | [facility] | + + + + | 2022-07-27 00:00 | BUDESONIDE | [facility] | + + + + | 2022-07-29 00:00 | BUDESONIDE | [facility] | + + + + | 2022-07-31 00:00 | BUDESONIDE | [facility] | + + + + | 2022-08-05 00:00 | BUDESONIDE | [facility] | + + + + | 2022-08-13 00:00 | BUDESONIDE | [facility] | + + + + | 2022-08-21 00:00 | BUDESONIDE | [facility] | + + + + | 2022-08-31 00:00 | BUDESONIDE | [facility] | + + + + | 2022-12-05 00:00 | BUDESONIDE | [facility] | + + + + | 2021-07-19 00:00 | 1 ml hydralazine | [facility] | | | hydrochloride 20 mg/ml | [address] | | | injection | | + + + + | 2022-07-24 00:00 | PROMETHAZINE HCL | [facility] | + + + + | 2022-07-29 00:00 | PROMETHAZINE HCL | [facility] | + + + + | 2022-07-29 00:00 | PROMETHAZINE HCL | [facility] | + + + + | 2022-07-29 00:00 | PROMETHAZINE HCL | [facility] | + + + + | 2022-02-23 00:00 | promethazine hydrochloride | [facility] | | | 25 MG Oral Tablet | | + + + + | 2021-06-23 00:00 | promethazine hydrochloride | [facility] | | | 25 mg oral tablet | | + + + + | 2021-06-23 00:00 | promethazine hydrochloride | [facility] | | | 25 mg oral tablet | Care 7th Floor | + + + + | 2021-07-27 00:00 | promethazine hydrochloride | [facility] | | | 25 mg oral tablet | Department | + + + + | 2021-07-27 00:00 | promethazine hydrochloride | [facility] | | | 25 mg oral tablet | Specialties | + + + + | 2021-07-27 00:00 | promethazine hydrochloride | [facility] | | | 25 mg oral tablet | Care 7th Floor | + + + + | 2022-07-27 00:00 | PROMETHAZINE HCL | [facility] | + + + + | 2022-02-06 00:00 | HYDROXYZINE PAMOATE | [facility] | + + + + | 2022-02-09 00:00 | HYDROXYZINE PAMOATE | [facility] | + + + + | 2022-02-19 00:00 | HYDROXYZINE PAMOATE | [facility] | + + + + | 2022-02-28 00:00 | HYDROXYZINE PAMOATE | [facility] | + + + + | 2022-04-12 00:00 | HYDROXYZINE PAMOATE | [facility] | + + + + | 2022-04-19 00:00 | HYDROXYZINE PAMOATE | [facility] | + + + + | 2022-06-08 00:00 | HYDROXYZINE PAMOATE | [facility] | + + + + | 2022-06-16 00:00 | HYDROXYZINE PAMOATE | [facility] | + + + + | 2022-06-19 00:00 | HYDROXYZINE PAMOATE | [facility] | + + + + | 2022-07-08 00:00 | HYDROXYZINE PAMOATE | [facility] | + + + + | 2022-07-11 00:00 | HYDROXYZINE PAMOATE | [facility] | + + + + | 2022-07-14 00:00 | HYDROXYZINE PAMOATE | [facility] | + + + + | 2022-07-22 00:00 | HYDROXYZINE PAMOATE | [facility] | + + + + | 2022-07-24 00:00 | HYDROXYZINE PAMOATE | [facility] | + + + + | 2022-07-27 00:00 | HYDROXYZINE PAMOATE | [facility] | + + + + | 2022-07-29 00:00 | HYDROXYZINE PAMOATE | [facility] | + + + + | 2022-07-31 00:00 | HYDROXYZINE PAMOATE | [facility] | + + + + | 2022-08-05 00:00 | HYDROXYZINE PAMOATE | [facility] | + + + + | 2022-08-13 00:00 | HYDROXYZINE PAMOATE | [facility] | + + + + | 2022-08-21 00:00 | HYDROXYZINE PAMOATE | [facility] | + + + + | 2022-08-31 00:00 | HYDROXYZINE PAMOATE | [facility] | + + + + | 2022-12-05 00:00 | HYDROXYZINE PAMOATE | [facility] | + + + + | 2021-08-15 00:00 | hydrOXYzine HCL | [facility] | + + + + | 2021-11-14 00:00 | hydrOXYzine HCL | [facility] | + + + + | 2021-12-03 00:00 | hydrOXYzine HCL | [facility] | + + + + | 2021-12-30 00:00 | hydrOXYzine HCL | [facility] | + + + + | 2022-01-12 00:00 | hydrOXYzine HCL | [facility] | + + + + | 2022-02-02 00:00 | hydrOXYzine HCL | [facility] | + + + + | 2022-02-06 00:00 | hydrOXYzine HCL | [facility] | + + + + | 2022-02-09 00:00 | hydrOXYzine HCL | [facility] | + + + + | 2022-02-19 00:00 | hydrOXYzine HCL | [facility] | + + + + | 2022-02-28 00:00 | hydrOXYzine HCL | [facility] | + + + + | 2022-04-12 00:00 | hydrOXYzine HCL | [facility] | + + + + | 2022-04-19 00:00 | hydrOXYzine HCL | [facility] | + + + + | 2022-06-08 00:00 | hydrOXYzine HCL | [facility] | + + + + | 2022-06-16 00:00 | hydrOXYzine HCL | [facility] | + + + + | 2022-06-19 00:00 | hydrOXYzine HCL | [facility] | + + + + | 2022-07-08 00:00 | hydrOXYzine HCL | [facility] | + + + + | 2022-07-11 00:00 | hydrOXYzine HCL | [facility] | + + + + | 2022-07-14 00:00 | hydrOXYzine HCL | [facility] | + + + + | 2022-07-22 00:00 | hydrOXYzine HCL | [facility] | + + + + | 2022-07-24 00:00 | hydrOXYzine HCL | [facility] | + + + + | 2022-07-27 00:00 | hydrOXYzine HCL | [facility] | + + + + | 2022-07-29 00:00 | hydrOXYzine HCL | [facility] | + + + + | 2022-07-31 00:00 | hydrOXYzine HCL | [facility] | + + + + | 2022-08-05 00:00 | hydrOXYzine HCL | [facility] | + + + + | 2022-08-13 00:00 | hydrOXYzine HCL | [facility] | + + + + | 2022-08-21 00:00 | hydrOXYzine HCL | [facility] | + + + + | 2022-08-31 00:00 | hydrOXYzine HCL | [facility] | + + + + | 2022-12-05 00:00 | hydrOXYzine HCL | [facility] | + + + + | 2021-06-24 00:00 | hydroxyzine hydrochloride | [facility] | | | 25 mg oral tablet | | + + + + | 2021-06-24 00:00 | hydroxyzine hydrochloride | [facility] | | | 25 mg oral tablet | Care [address] Floor | + + + + | 2021-07-27 00:00 | hydroxyzine hydrochloride | [facility] | | | 25 mg oral tablet | Department | + + + + | 2021-07-27 00:00 | hydroxyzine hydrochloride | [facility] | | | 25 mg oral tablet | Specialties | + + + + | 2021-07-27 00:00 | hydroxyzine hydrochloride | [facility] | | | 25 mg oral tablet | Care 7[facility] Floor | + + + + | 2021-07-29 00:00 | hydroxyzine hydrochloride | [facility] | | | 25 mg oral tablet | Specialties | + + + + | 2020-01-21 00:00 | hydroxyzine hydrochloride | [facility] | | | 50 MG Oral Tablet | | + + + + | 2021-07-19 00:00 | hydroxyzine hydrochloride | [facility] | | | 50 mg oral tablet | Care 7[address] Floor | + + + + | 2021-08-01 00:00 | anoop sodium 50 mg / | [facility] | | | sennosides, longterm 8.6 mg oral | Department | | | tablet | | + + + + | 2021-08-01 00:00 | anoop sodium 50 mg / | [facility] | | | sennosides, longterm 8.6 mg oral | Specialties | | | tablet | | + + + + | 2021-12-18 00:00 | Miscellaneous | [facility] | | | | | + + + + | 2020-02-20 00:00 | Albuterol Sulfate HFA 108 | [facility] | | | (90)mcg/act Inhalation | | | | Inhaler | | + + + + Problems + + + + | date | description | facility | + + + + | 2010-08-07 00:00 | bipolar affective disorder | [facility] | | | | | + + + + | 2010-08-07 00:00 | bipolar affective disorder | [facility] | | | | Department | + + + + | 2010-08-07 00:00 | bipolar affective disorder | [facility] | | | | Specialties | + + + + | 2010-08-07 00:00 | bipolar affective disorder | [facility] | | | | Care 7th Floor | + + + + | 2010-08-07 00:00 | Bipolar disorder | [facility] | + + + + | 2010-08-07 00:00 | Bipolar disorder | [facility] | | | | Department | + + + + | 2010-08-07 00:00 | Bipolar disorder | [facility] | | | | Specialties | + + + + | 2010-08-07 00:00 | Bipolar disorder | [facility] | | | | Care 7th Floor | + + + + | 2010-12-08 00:00 | chronic pain syndrome | [facility] | | | (disorder) | | + + + + | 2010-12-08 00:00 | chronic pain syndrome | [facility] | | | (disorder) | Department | + + + + | 2010-12-08 00:00 | chronic pain syndrome | [facility] | | | (disorder) | Specialties | + + + + | 2010-12-08 00:00 | chronic pain syndrome | [facility] | | | (disorder) | Care 7[facility] Floor | + + + + | 2010-12-08 00:00 | Chronic pain disorder | [facility] | + + + + | 2010-12-08 00:00 | Chronic pain disorder | [facility] | | | | Department | + + + + | 2010-12-08 00:00 | Chronic pain disorder | [facility] | | | | Specialties | + + + + | 2010-12-08 00:00 | Chronic pain disorder | [facility] | | | | Care 7th Floor | + + + + | 2011-07-09 00:00 | hypothyroidism (disorder) | [facility] | + + + + | 2011-07-09 00:00 | hypothyroidism (disorder) | [facility] | | | | Department | + + + + | 2011-07-09 00:00 | hypothyroidism (disorder) | [facility] | | | | Specialties | + + + + | 2011-07-09 00:00 | hypothyroidism (disorder) | [facility] | | | | Care 7th Floor | + + + + | 2011-07-09 00:00 | Hypothyroidism | [facility] | + + + + | 2011-07-09 00:00 | Hypothyroidism | [facility] | | | | Department | + + + + | 2011-07-09 00:00 | Hypothyroidism | [facility] | | | | Specialties | + + + + | 2011-07-09 00:00 | Hypothyroidism | [facility] | | | | Care 7th Floor | + + + + | 2011-07-14 00:00 | polysubstance abuse | [facility] | | | (disorder) | | + + + + | 2011-07-14 00:00 | polysubstance abuse | [facility] | | | (disorder) | Department | + + + + | 2011-07-14 00:00 | polysubstance abuse | [facility] | | | (disorder) | Specialties | + + + + | 2011-07-14 00:00 | polysubstance abuse | [facility] | | | (disorder) | Care 7th Floor | + + + + | 2011-07-14 00:00 | Polysubstance abuse | [facility] | + + + + | 2011-07-14 00:00 | Polysubstance abuse | [facility] | | | | Department | + + + + | 2011-07-14 00:00 | Polysubstance abuse | [facility] | | | | Specialties | + + + + | 2011-07-14 00:00 | Polysubstance abuse | [facility] | | | | Care 7th Floor | + + + + | 2013-07-19 00:00 | gastric varices (disorder) | [facility] | | | | | + + + + | 2013-07-19 00:00 | gastric varices (disorder) | [facility] | | | | Department | + + + + | 2013-07-19 00:00 | gastric varices (disorder) | [facility] | | | | Specialties | + + + + | 2013-07-19 00:00 | gastric varices (disorder) | [facility] | | | | Care 7th Floor | + + + + | 2013-07-19 00:00 | Gastric varices | [facility] | + + + + | 2013-07-19 00:00 | Gastric varices | [facility] | | | | Department | + + + + | 2013-07-19 00:00 | Gastric varices | [facility] | | | | Specialties | + + + + | 2013-07-19 00:00 | Gastric varices | [facility] | | | | Care 7th Floor | + + + + | 2018-12-24 00:00 | history of surgery | [facility] | | | (situation) | | + + + + | 2018-12-24 00:00 | history of surgery | [facility] | | | (situation) | Department | + + + + | 2018-12-24 00:00 | history of surgery | [facility] | | | (situation) | Specialties | + + + + | 2018-12-24 00:00 | history of surgery | [facility] | | | (situation) | Care 7th Floor | + + + + | 2018-12-24 00:00 | H/O resection of pancreas | [facility] | + + + + | 2018-12-24 00:00 | H/O resection of pancreas | [facility] | | | | Department | + + + + | 2018-12-24 00:00 | H/O resection of pancreas | [facility] | | | | Specialties | + + + + | 2018-12-24 00:00 | H/O resection of pancreas | 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, 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 | | + + + + | 2019-06-23 00:00 | 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, 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 | | + + + + | 2019-06-23 00:00 | 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, 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 | | + + + + | 2019-06-23 00:00 | Bipolar disorder | [facility] | + + + + | 2019-06-23 00:00 | Bipolar disorder | [facility] | + + + + | 2019-06-23 00:00 | Bipolar disorder | [facility] | + + + + | 2019-06-23 00:00 | Bipolar disorder | [facility] | + + + + | 2019-06-23 00:00 | Cellulitis | [facility] | + + + + | 2019-06-23 00:00 | Cellulitis | [facility] | + + + + | 2019-06-23 00:00 | Cellulitis | [facility] | + + + + 2019-06-23 00:00 | Cellulitis | [facility] | + + + + 2019-06-23 00:00 | Suicidal ideation | [facility] | + + + + | 2019-06-23 00:00 | Suicidal ideation | [facility] | + + + + | 2019-06-23 00:00 | Suicidal ideation | [facility] | + + + + | 2019-06-23 00:00 | Suicidal ideation | [facility] | + + + + | 2020-01-25 00:00 | Chronic pancreatitis | [facility] | | | (disorder) | | + + + + | 2020-01-25 00:00 | HYPOTHYROIDISM | [facility] | | | | | + + + + | 2020-01-25 00:00 | DM W/UNSPECIFIED | [facility] | | | COMPLICATION TYPE II | | + + + + | 2020-01-25 00:00 | HYPERTRIGLYCERIDEMIA | [facility]. | | | ESSENTIAL | | + + + + | 2020-01-25 00:00 | Moderate bipolar I | [facility] Jeanmarie [facility]. | | | disorder, single manic | | | | episode (disorder) | | + + + + | 2020-01-25 00:00 | BIPOLAR 1 DISORDER SINGLE | [facility] Jeanmarie LARAC. | | | MANIC EPISODE MODER | | + + + + | 2020-01-25 00:00 | Hypertriglyceridemia | [facility] | | | (disorder) | | + + + + | 2020-01-25 00:00 | Hypothyroidism (disorder) | [facility]. | | | | | + + + + | 2020-01-25 00:00 | Diabetes mellitus type 2 | [facility] | | | (disorder) | | + + + + | 2020-01-25 00:00 | Chronic pancreatitis | [facility] | | | | | + + + + | 2020-01-25 00:00 | Hypothyroidism | [facility] | | | | | + + + + | 2020-01-25 00:00 | Diabetes Mellitus Type 2 | [facility] Meghann [facility]. | | | | | + + + + | 2020-01-25 00:00 | Hypertriglyceridemia | [facility] | | | | | + + + + | 2020-01-25 00:00 | Bipolar I Disorder, Single | [facility]. | | | Manic Episode Moderate | | + + + + | 2020-01-25 00:00 | Chronic Pancreatitis | [facility]. | | | | | + + + + | 2021-03-16 00:00 | Low Back Pain [facility] | | | | | + + + + | 2021-04-01 00:00 | pre-existing diabetes | [facility] | | | mellitus in | | | | (disorder) | | + + + + | 2021-04-01 00:00 | pre-existing diabetes | [facility] | | | mellitus in | Department | | | (disorder) | | + + + + | 2021-04-01 00:00 | pre-existing diabetes | [facility] | | | mellitus in | Specialties | | | (disorder) | | + + + + | 2021-04-01 00:00 | pre-existing diabetes | [facility] | | | mellitus in | Care 7th Floor | | | (disorder) | | + + + + | 2021-04-01 00:00 | Pre-existing diabetes | [facility] | | | mellitus affecting | | | | , antepartum | | + + + + | 2021-04-01 00:00 | Pre-existing diabetes | [facility] | | | mellitus affecting | Department | | | , antepartum | | + + + + | 2021-04-01 00:00 | Pre-existing diabetes | [facility] | | | mellitus affecting | Specialties | | | , antepartum | | + + + + | 2021-04-01 00:00 | Pre-existing diabetes | [facility] | | | mellitus affecting | Care 7th Floor | | | , antepartum | | + + + + | 2021-04-21 00:00 | Abdominal pain during | [facility] | | | | | + + + + | 2021-04-21 00:00 | Abdominal pain during | [facility] | | | | | + + + + | 2021-04-21 00:00 | Abdominal pain during | [facility] | | | | | + + + + | 2021-04-21 00:00 | Abdominal pain during | [facility] | | | | | + + + + | 2021-07-16 00:00 | superimposed pre-eclampsia | [facility] | | | | | + + + + | 2021-07-16 00:00 | superimposed pre-eclampsia | [facility] | | | | Department | + + + + | 2021-07-16 00:00 | superimposed pre-eclampsia | [facility] | | | | Specialties | + + + + | 2021-07-16 00:00 | superimposed pre-eclampsia | [facility] | | | | Care 7th Floor | + + + + | 2021-07-16 00:00 | Chronic hypertension with | [facility] | | | superimposed preeclampsia | | + + + + | 2021-07-16 00:00 | Chronic hypertension with | [facility] | | | superimposed preeclampsia | Department | + + + + | 2021-07-16 00:00 | Chronic hypertension with | [facility] | | | superimposed preeclampsia | Specialties | + + + + | 2021-07-16 00:00 | Chronic hypertension with | [facility] | | | superimposed preeclampsia | Care 7th Floor | + + + + | 2021-07-19 00:00 | enzyme level | [facility] | + + + + | 2021-07-19 00:00 | enzyme level | [facility] | | | | Department | + + + + | 2021-07-19 00:00 | enzyme level | [facility] | | | | Specialties | + + + + | 2021-07-19 00:00 | enzyme level | [facility] | | | | Care 7th Floor | + + + + | 2021-07-19 00:00 | Transaminitis | [facility] | + + + + | 2021-07-19 00:00 | Transaminitis | [facility] | | | | Department | + + + + | 2021-07-19 00:00 | Transaminitis | [facility] | | | | Specialties | + + + + | 2021-07-19 00:00 | Transaminitis | [facility] | | | | Care 7th Floor | + + + + | 2021-07-23 00:00 | delivery - | [facility] | | | delivered (finding) | | + + + + | 2021-07-23 00:00 | delivery - | [facility] | | | delivered (finding) | Department | + + + + | 2021-07-23 00:00 | delivery - | [facility] | | | delivered (finding) | Specialties | + + + + | 2021-07-23 00:00 | delivery - | [facility] | | | delivered (finding) | Care 7th Floor | + + + + | 2021-07-23 00:00 | Single delivery by | [facility] | | | section | | + + + + | 2021-07-23 00:00 | Single delivery by | [facility] | | | section | Department | + + + + | 2021-07-23 00:00 | Single delivery by | [facility] | | | section | Specialties | + + + + | 2021-07-23 00:00 | Single delivery by | [facility] | | | section | Care 7th Floor | + + + + | 2021-07-27 00:00 | ketoacidosis without coma | [facility] | | | due to diabetes mellitus | | | | (disorder) | | + + + + | 2021-07-27 00:00 | ketoacidosis without coma | [facility] | | | due to diabetes mellitus | Department | | | (disorder) | | + + + + | 2021-07-27 00:00 | ketoacidosis without coma | [facility] | | | due to diabetes mellitus | Specialties | | | (disorder) | | + + + + | 2021-07-27 00:00 | ketoacidosis without coma | [facility] | | | due to diabetes mellitus | Care 7th Floor | | | (disorder) | | + + + + | 2021-07-27 00:00 | Diabetic ketoacidosis | [facility] | | | without coma associated | | | | with diabetes mellitus due | | | | to underlying condition | | + + + + | 2021-07-27 00:00 | Diabetic ketoacidosis | [facility] | | | without coma associated | Department | | | with diabetes mellitus due | | | | to underlying condition | | + + + + | 2021-07-27 00:00 | Diabetic ketoacidosis | [facility] | | | without coma associated | Specialties | | | with diabetes mellitus due | | | | to underlying condition | | + + + + | 2021-07-27 00:00 | Diabetic ketoacidosis | [facility] | | | without coma associated | Care 7th Floor | | | with diabetes mellitus due | | | | to underlying condition | | + + + + | 2021-07-28 00:00 | history of | [facility] | | | section (situation) | | + + + + | 2021-07-28 00:00 | history of | [facility] | | | section (situation) | Department | + + + + | 2021-07-28 00:00 | history of | [facility] | | | section (situation) | Specialties | + + + + | 2021-07-28 00:00 | history of | [facility] | | | section (situation) | Care 7th Floor | + + + + | 2021-07-28 00:00 | hydroperitoneum | [facility] | | | | Department | + + + + | 2021-07-28 00:00 | hydroperitoneum | [facility] | | | | Specialties | + + + + | 2021-07-28 00:00 | complication of surgical | [facility] | | | procedure (disorder) | | + + + + | 2021-07-28 00:00 | complication of surgical | [facility] | | | procedure (disorder) | Department | + + + + | 2021-07-28 00:00 | complication of surgical | [facility] | | | procedure (disorder) | Specialties | + + + + | 2021-07-28 00:00 | complication of surgical | [facility] | | | procedure (disorder) | Care 7th Floor | + + + + | 2021-07-28 00:00 | Abdominal ascites | [facility] | | | | Department | + + + + | 2021-07-28 00:00 | Abdominal ascites | [facility] | | | | Specialties | + + + + | 2021-07-28 00:00 | Complication of surgical | [facility] | | | procedure | | + + + + | 2021-07-28 00:00 | Complication of surgical | [facility] | | | procedure | Department | + + + + | 2021-07-28 00:00 | Complication of surgical | [facility] | | | procedure | Specialties | + + + + | 2021-07-28 00:00 | Complication of surgical | [facility] | | | procedure | Care 7th Floor | + + + + | 2021-07-28 00:00 | S/P section | [facility] | + + + + | 2021-07-28 00:00 | S/P section | [facility] | | | | Department | + + + + | 2021-07-28 00:00 | S/P section | [facility] | | | | Specialties | + + + + | 2021-07-28 00:00 | S/P section | [facility] | | | | Care 7th Floor | + + + + | 2021-08-01 00:00 | injury of bladder | [facility] | | | (disorder) | | + + + + | 2021-08-01 00:00 | injury of bladder | [facility] | | | (disorder) | Department | + + + + | 2021-08-01 00:00 | injury of bladder | [facility] | | | (disorder) | Specialties | + + + + | 2021-08-01 00:00 | injury of bladder | [facility] | | | (disorder) | Care 7th Floor | + + + + | 2021-08-01 00:00 | Bladder injury | [facility] | + + + + | 2021-08-01 00:00 | Bladder injury | [facility] | | | | Department | + + + + | 2021-08-01 00:00 | Bladder injury | [facility] | | | | Specialties | + + + + | 2021-08-01 00:00 | Bladder injury | [facility] | | | | Care 7th Floor | + + + + | 2021-08-11 00:00 | Postoperative wound | [facility] | | | infection | | + + + + | 2021-08-11 00:00 | Postoperative wound | [facility] | | | infection | | + + + + | 2021-08-11 00:00 | Postoperative wound | [facility] | | | infection | | + + + + | 2021-08-11 00:00 | Postoperative wound | [facility] | | | infection | | + + + + | 2021-11-03 00:00 | Hyperglycemia due to | [facility] | | | diabetes mellitus | | + + + + | 2021-11-03 00:00 | Hyperglycemia due to | [facility] | | | diabetes mellitus | | + + + + | 2021-11-03 00:00 | Hyperglycemia due to | [facility] | | | diabetes mellitus | | + + + + | 2021-11-03 00:00 | Hyperglycemia due to | [facility] | | | diabetes mellitus | | + + + + | 2021-11-03 00:00 | Dehydration | [facility] | + + + + | 2021-11-03 00:00 | Dehydration | [facility] | + + + + | 2021-11-03 00:00 | Dehydration | [facility] | + + + + | 2021-11-03 00:00 | Dehydration | [facility] | + + + + | 2021-12-03 00:00 | Hyperglycemia | [facility] | + + + + | 2021-12-03 00:00 | Hyperglycemia | [facility] | + + + + | 2021-12-03 00:00 | Hyperglycemia | [facility] | + + + + | 2021-12-03 00:00 | Hyperglycemia | [facility] | + + + + | 2021-12-18 00:00 | DIABETES MELLITUS | [facility] | | | SECONDARY DIABETIC | | | | HYPOGLYCEMIA | | + + + + | 2021-12-18 00:00 | Disease condition | [facility] Meghann [facility]. | | | determination, uncontrolled | | | | (finding) | | + + + + | 2021-12-18 00:00 | Secondary diabetes | [facility] Jeanmarie LARAC. | | | mellitus (disorder) | | + + + + | 2021-12-18 00:00 | Diabetes Mellitus | [facility] | | | Secondary Uncontrolled | | + + + + | 2022-01-12 00:00 | Urinary tract infection | [facility] | + + + + | 2022-01-12 00:00 | Urinary tract infection | [facility] | + + + + | 2022-01-12 00:00 | Urinary tract infection | [facility] | + + + + | 2022-01-12 00:00 | Urinary tract infection | [facility] | + + + + | 2022-02-02 00:00 | Cyst of left ovary | [facility] | + + + + | 2022-02-02 00:00 | Cyst of left ovary | [facility] | + + + + | 2022-02-02 00:00 | Cyst of left ovary | [facility] | + + + + | 2022-02-02 00:00 | Cyst of left ovary | [facility] | + + + + | 2022-02-04 00:00 | Gastrointestinal | [facility] | | | hemorrhage | | + + + + | 2022-02-04 00:00 | Gastrointestinal | [facility] | | | hemorrhage | | + + + + | 2022-02-04 00:00 | Gastrointestinal | [facility] | | | hemorrhage | | + + + + | 2022-02-04 00:00 | Gastrointestinal | [facility] | | | hemorrhage | | + + + + | 2022-02-04 11:59 | Acute posthemorrhagic | [facility] | | | anemia | | + + + + | 2022-02-04 11:59 | HYPOTHYROIDISM, | [facility] | | | UNSPECIFIED | | + + + + | 2022-02-04 11:59 | TYPE 2 DIABETES MELLITUS | [facility] | | | WITHOUT COMPLICATIONS | | + + + + | 2022-02-04 11:59 | HYPERLIPIDEMIA, | [facility] | | | UNSPECIFIED | | + + + + | 2022-02-04 11:59 | NICOTINE DEPENDENCE, | [facility] | | | UNSPECIFIED, UNCOMPLICATED | | + + + + | 2022-02-04 11:59 | BIPOLAR DISORDER, | [facility] | | | UNSPECIFIED | | + + + + | 2022-02-04 11:59 | ANXIETY DISORDER, | [facility] | | | UNSPECIFIED | | + + + + | 2022-02-04 11:59 | OTHER CHRONIC PAIN | [facility] | + + + + | 2022-02-04 11:59 | UNSPECIFIED ASTHMA, | [facility] | | | UNCOMPLICATED | | + + + + | 2022-02-04 11:59 | GASTROINTESTINAL | [facility] | | | HEMORRHAGE, UNSPECIFIED | | + + + + | 2022-02-04 11:59 | ALLERGY STATUS TO OTHER | [facility] | | | ANTIBIOTIC AGENTS STATUS | | + + + + | 2022-02-04 11:59 | ALLERGY STATUS TO OTH | [facility] | | | DRUG/MEDS/BIOL SUBST STATUS | | | | | | + + + + | 2022-02-04 11:59 | ACQUIRED ABSENCE OF OTHER | [facility] | | | SPECIFIED PARTS OF DIGES | | + + + + | 2022-02-04 11:59 | LATEX ALLERGY STATUS | [facility] | + + + + | 2022-02-04 11:59 | OTHER SPECIFIED | [facility] | | | POSTPROCEDURAL STATES | | + + + + | 2022-02-08 00:00 | Enteritis | [facility] | + + + + | 2022-02-08 00:00 | Enteritis | [facility] | + + + + | 2022-02-08 00:00 | Enteritis | [facility] | + + + + | 2022-02-08 00:00 | Enteritis | [facility] | + + + + | 2022-02-08 00:00 | Cyst of ovary | [facility] | + + + + | 2022-02-08 00:00 | Cyst of ovary | [facility] | + + + + | 2022-02-08 00:00 | Cyst of ovary | [facility] | + + + + | 2022-02-08 00:00 | Cyst of ovary | [facility] | + + + + | 2022-02-19 00:00 | Diabetes mellitus | [facility] | + + + + | 2022-02-19 00:00 | Diabetes mellitus | [facility] | + + + + 2022-02-19 00:00 | Diabetes mellitus | [facility] | + + + + | 2022-02-19 00:00 | Diabetes mellitus | [facility] | + + + + | 2022-02-19 00:00 | Abdominal pain | [facility] | + + + + | 2022-02-19 00:00 | Abdominal pain | [facility] | + + + + | 2022-02-19 00:00 | Abdominal pain | [facility] | + + + + | 2022-02-19 00:00 | Abdominal pain | [facility] | + + + + | 2022-02-25 15:43 | UNSPECIFIED OVARIAN CYST, | [facility] | | | UNSPECIFIED SI | | + + + + | 2022-02-25 15:43 | OTHER OVARIAN CYST, LEFT | [facility] | | | SIDE | | + + + + | 2022-02-25 15:43 | OTH NONINFLAMMATORY DISORD | [facility] | | | OF OVARY, FALLOP AND BR | | + + + + | 2022-02-25 15:43 | ABNORMAL UTERINE AND | [facility] | | | VAGINAL BLEEDING, U | | + + + + | 2022-02-28 00:00 | Nausea and vomiting | [facility] | + + + + | 2022-02-28 00:00 | Nausea and vomiting | [facility] | + + + + | 2022-02-28 00:00 | Nausea and vomiting | [facility] | + + + + | 2022-02-28 00:00 | Nausea and vomiting | [facility] | + + + + | 2022-04-12 00:00 | Vomiting | [facility] | + + + + | 2022-04-12 00:00 | Vomiting | [facility] | + + + + | 2022-04-12 00:00 | Vomiting | [facility] | + + + + | 2022-04-12 00:00 | Vomiting | [facility] | + + + + | 2022-04-12 09:32 | OTHER SPECIFIED DIABETES | [facility] | | | MELLITUS WITHOUT COMPLICA | | + + + + | 2022-04-12 09:32 | HYPERLIPIDEMIA, | [facility] | | | UNSPECIFIED | | + + + + | 2022-04-12 09:32 | NICOTINE DEPENDENCE, | [facility] | | | UNSPECIFIED, UNCOMPLICATED | | + + + + | 2022-04-12 09:32 | UNSPECIFIED ASTHMA, | [facility] | | | UNCOMPLICATED | | + + + + | 2022-04-12 09:32 | URINARY TRACT INFECTION, | [facility] | | | SITE NOT SPECIFIED | | + + + + | 2022-04-12 09:32 | UNSPECIFIED ABDOMINAL PAIN | [facility] | | | | | + + + + | 2022-04-12 09:32 | NAUSEA WITH VOMITING, | [facility] | | | UNSPECIFIED | | + + + + | 2022-04-12 09:32 | HALFWAY (CURRENT) USE OF | [facility] | | | INSULIN | | + + + + | 2022-04-12 09:32 | 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 | | + + + + | 2022-04-12 09:32 | ALLERGY STATUS TO OTH | [facility] | | | DRUG/MEDS/BIOL SUBST STATUS | | | | | | + + + + | 2022-04-12 09:32 | OTHER NONMEDICINAL | [facility] | | | SUBSTANCE ALLERGY STATUS | | + + + + | 2022-04-19 00:00 | Poorly controlled diabetes | [facility] | | | mellitus | | + + + + | 2022-04-19 00:00 | Poorly controlled diabetes | [facility] | | | mellitus | | + + + + | 2022-04-19 00:00 | Poorly controlled diabetes | [facility] | | | mellitus | | + + + + | 2022-04-19 00:00 | Poorly controlled diabetes | [facility] | | | mellitus | | + + + + | 2022-06-08 00:00 | Gastritis | [facility] | + + + + | 2022-06-08 00:00 | Gastritis | [facility] | + + + + | 2022-06-08 00:00 | Gastritis | [facility] | + + + + | 2022-06-08 00:00 | Gastritis | [facility] | + + + + | 2022-06-08 06:42 | TYPE 2 DIABETES MELLITUS | [facility] | | | WITH HYPERGLYCEMIA | | + + + + | 2022-06-08 06:42 | HYPERLIPIDEMIA, | [facility] | | | UNSPECIFIED | | + + + + | 2022-06-08 06:42 | NICOTINE DEPENDENCE, | [facility] | | | UNSPECIFIED, UNCOMPLICATED | | + + + + | 2022-06-08 06:42 | UNSPECIFIED ASTHMA, | [facility] | | | UNCOMPLICATED | | + + + + | 2022-06-08 06:42 | GASTRITIS, UNSPECIFIED, | [facility] | | | WITHOUT BLEEDING | | + + + + | 2022-06-08 06:42 | LEFT UPPER QUADRANT PAIN | [facility] | + + + + | 2022-06-08 06:42 | HALFWAY (CURRENT) USE OF | [facility] | | | INSULIN | | + + + + | 2022-06-08 06:42 | OTHER HALFWAY (CURRENT) | [facility] | | | DRUG THERAPY | | + + + + | 2022-06-08 06:42 | ALLERGY STATUS TO OTH | [facility] | | | DRUG/MEDS/BIOL SUBST STATUS | | | | | | + + + + | 2022-06-08 06:42 | OTHER NONMEDICINAL | [facility] | | | SUBSTANCE ALLERGY STATUS | | + + + + | 2022-06-10 15:21 | ENCOUNTER FOR OTHER | [facility] | | | PREPROCEDURAL EXAMINATION | | + + + + | 2022-06-15 07:12 | HYPOTHYROIDISM, | [facility] | | | UNSPECIFIED | | + + + + | 2022-06-15 07:12 | TYPE 2 DIABETES MELLITUS | [facility] | | | WITH KETOACIDOSIS WITHOUT | | + + + + | 2022-06-15 07:12 | TYPE 2 DIABETES MELLITUS | [facility] | | | WITH HYPERGLYCEMIA | | + + + + | 2022-06-15 07:12 | HYPERLIPIDEMIA, | [facility] | | | UNSPECIFIED | | + + + + | 2022-06-15 07:12 | HYPOMAGNESEMIA | [facility] | + + + + | 2022-06-15 07:12 | NICOTINE DEPENDENCE, | [facility] | | | UNSPECIFIED, UNCOMPLICATED | | + + + + | 2022-06-15 07:12 | BIPOLAR DISORDER, | [facility] | | | UNSPECIFIED | | + + + + | 2022-06-15 07:12 | ANXIETY DISORDER, | [facility] | | | UNSPECIFIED | | + + + + | 2022-06-15 07:12 | UNSPECIFIED ASTHMA, | [facility] | | | UNCOMPLICATED | | + + + + | 2022-06-15 07:12 | GASTRO-ESOPHAGEAL REFLUX | [facility] | | | DISEASE WITHOUT ESOPHAGIT | | + + + + | 2022-06-15 07:12 | CHEST PAIN, UNSPECIFIED | [facility] | + + + + | 2022-06-15 07:12 | HALFWAY (CURRENT) USE OF | [facility] | | | INSULIN | | + + + + | 2022-06-15 07:12 | 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 | | + + + + | 2022-06-15 07:12 | ALLERGY STATUS TO OTH | [facility] | | | DRUG/MEDS/BIOL SUBST STATUS | | | | | | + + + + | 2022-06-16 00:00 | Diabetic ketoacidosis | [facility] | + + + + | 2022-06-16 00:00 | Diabetic ketoacidosis | [facility] | + + + + | 2022-06-16 00:00 | Diabetic ketoacidosis | [facility] | + + + + | 2022-06-16 00:00 | Diabetic ketoacidosis | [facility] | + + + + | 2022-06-18 10:18 | OTHER SPECIFIED DIABETES | [facility] | | | MELLITUS WITHOUT | | | | COMPLICATIONS | | + + + + | 2022-06-19 05:43 | TYPE 2 DIABETES MELLITUS | [facility] | | | WITHOUT COMPLICATIONS | | + + + + | 2022-06-19 05:43 | HYPERLIPIDEMIA, | [facility] | | | UNSPECIFIED | | + + + + | 2022-06-19 05:43 | NICOTINE DEPENDENCE, | [facility] | | | UNSPECIFIED, UNCOMPLICATED | | + + + + | 2022-06-19 05:43 | UNSPECIFIED ASTHMA, | [facility] | | | UNCOMPLICATED | | + + + + | 2022-06-19 05:43 | URINARY TRACT INFECTION, | [facility] | | | SITE NOT SPECIFIED | | + + + + | 2022-06-19 05:43 | PRECORDIAL PAIN | [facility] | + + + + | 2022-06-19 05:43 | UNSPECIFIED ABDOMINAL PAIN | [facility] | | | | | + + + + | 2022-06-19 05:43 | HALFWAY (CURRENT) USE OF | [facility] | | | INSULIN | | + + + + | 2022-06-19 05:43 | HALFWAY (CURRENT) USE OF | [facility] | | | ORAL HYPOGLYCEMIC DRUGS | | + + + + | 2022-06-19 05:43 | 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 | | + + + + | 2022-06-19 05:43 | ALLERGY STATUS TO OTH | [facility] | | | DRUG/MEDS/BIOL SUBST STATUS | | | | | | + + + + | 2022-06-19 05:43 | OTHER NONMEDICINAL | [facility] | | | SUBSTANCE ALLERGY STATUS | | + + + + | 2022-07-08 00:00 | Type 1 diabetes mellitus | [facility] | | | with hyperglycemia | | + + + + | 2022-07-08 00:00 | Type 1 diabetes mellitus | [facility] | | | with hyperglycemia | | + + + + | 2022-07-08 00:00 | Type 1 diabetes mellitus | [facility] | | | with hyperglycemia | | + + + + | 2022-07-08 00:00 | Type 1 diabetes mellitus | [facility] | | | with hyperglycemia | | + + + + | 2022-07-08 06:13 | TYPE 1 DIABETES MELLITUS | [facility] | | | WITH HYPERGLYCEMIA | | + + + + | 2022-07-08 06:13 | HYPERLIPIDEMIA, | [facility] | | | UNSPECIFIED | | + + + + | 2022-07-08 06:13 | DEHYDRATION | [facility] | + + + + | 2022-07-08 06:13 | NICOTINE DEPENDENCE, | [facility] | | | UNSPECIFIED, UNCOMPLICATED | | + + + + | 2022-07-08 06:13 | UNSPECIFIED ASTHMA, | [facility] | | | UNCOMPLICATED | | + + + + | 2022-07-08 06:13 | URINARY TRACT INFECTION, | [facility] | | | SITE NOT SPECIFIED | | + + + + | 2022-07-08 06:13 | VOMITING, UNSPECIFIED | [facility] | + + + + | 2022-07-08 06:13 | HALFWAY (CURRENT) USE OF | [facility] | | | INSULIN | | + + + + | 2022-07-08 06:13 | OTHER HALFWAY (CURRENT) | [facility] | | | DRUG THERAPY | | + + + + | 2022-07-08 06:13 | ALLERGY STATUS TO OTH | [facility] | | | DRUG/MEDS/BIOL SUBST STATUS | | | | | | + + + + | 2022-07-08 06:13 | OTHER NONMEDICINAL | [facility] | | | SUBSTANCE ALLERGY STATUS | | + + + + | 2022-07-09 06:20 | Acute posthemorrhagic | [facility] | | | anemia | | + + + + | 2022-07-09 06:20 | HYPOTHYROIDISM, | [facility] | | | UNSPECIFIED | | + + + + | 2022-07-09 06:20 | TYPE 2 DIABETES MELLITUS | [facility] | | | WITHOUT COMPLICATIONS | | + + + + | 2022-07-09 06:20 | HYPERLIPIDEMIA, | [facility] | | | UNSPECIFIED | | + + + + | 2022-07-09 06:20 | NICOTINE DEPENDENCE, | [facility] | | | CIGARETTES, UNCOMPLICATED | | + + + + | 2022-07-09 06:20 | BIPOLAR DISORDER, | [facility] | | | UNSPECIFIED | | + + + + | 2022-07-09 06:20 | CHRONIC OR UNSPECIFIED | [facility] | | | GASTRIC ULCER WITH HEMORRHA | | | | | | + + + + | 2022-07-09 06:20 | HEMATEMESIS | [facility] | + + + + | 2022-07-09 06:20 | SHELF FILLER (CURRENT) USE OF | [facility] | | | INSULIN | | + + + + | 2022-07-09 06:20 | 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 | | + + + + | 2022-07-09 06:20 | ALLERGY STATUS TO OTH | [facility] | | | DRUG/MEDS/BIOL SUBST STATUS | | | | | | + + + + | 2022-07-09 06:20 | OTHER NONMEDICINAL | [facility] | | | SUBSTANCE ALLERGY STATUS | | + + + + | 2022-07-12 00:00 | Upper gastrointestinal | [facility] | | | hemorrhage | | + + + + | 2022-07-12 00:00 | Upper gastrointestinal | [facility] | | | hemorrhage | | + + + + | 2022-07-12 00:00 | Upper gastrointestinal | [facility] | | | hemorrhage | | + + + + | 2022-07-12 14:09 | TYPE 2 DIABETES MELLITUS | [facility] | | | WITH HYPERGLYCEMIA | | + + + + | 2022-07-12 14:09 | HYPERLIPIDEMIA, | [facility] | | | UNSPECIFIED | | + + + + | 2022-07-12 14:09 | HYPOMAGNESEMIA | [facility] | + + + + | 2022-07-12 14:09 | NICOTINE DEPENDENCE, | [facility] | | | UNSPECIFIED, UNCOMPLICATED | | + + + + | 2022-07-12 14:09 | URINARY TRACT INFECTION, | [facility] | | | SITE NOT SPECIFIED | | + + + + | 2022-07-12 14:09 | SHELF FILLER (CURRENT) USE OF | [facility] | | | INSULIN | | + + + + | 2022-07-12 14:09 | HALFWAY (CURRENT) USE OF | [facility] | | | ORAL HYPOGLYCEMIC DRUGS | | + + + + | 2022-07-12 14:09 | ALLERGY STATUS TO OTHER | [facility] | | | ANTIBIOTIC AGENTS STATUS | | + + + + | 2022-07-12 14:09 | ALLERGY STATUS TO OTH | [facility] | | | DRUG/MEDS/BIOL SUBST STATUS | | | | | | + + + + | 2022-07-20 11:40 | SUBACUTE COUGH | [facility] | + + + + | 2022-07-22 05:30 | TYPE 2 DIABETES MELLITUS | [facility] | | | WITH HYPERGLYCEMIA | | + + + + | 2022-07-22 05:30 | POLYP OF VAGINA | [facility] | + + + + | 2022-07-22 05:30 | ABNORMAL UTERINE AND | [facility] | | | VAGINAL BLEEDING, | | | | UNSPECIFIED | | + + + + | 2022-07-24 00:00 | Postoperative hemorrhage | [facility] | + + + + | 2022-07-24 00:00 | Postoperative hemorrhage | [facility] | + + + + | 2022-07-24 00:00 | Postoperative hemorrhage | [facility] | + + + + | 2022-07-24 19:22 | TYPE 2 DIABETES MELLITUS | [facility] | | | WITHOUT COMPLICATIONS | | + + + + | 2022-07-24 19:22 | HYPERLIPIDEMIA, | [facility] | | | UNSPECIFIED | | + + + + | 2022-07-24 19:22 | NICOTINE DEPENDENCE, | [facility] | | | UNSPECIFIED, UNCOMPLICATED | | + + + + | 2022-07-24 19:22 | UNSPECIFIED ASTHMA, | [facility] | | | UNCOMPLICATED | | + + + + | 2022-07-24 19:22 | POSTPROC HEMOR OF A SYS | [facility] | | | ORG FOLLOWING A SYS | | | | PROCEDURE | | + + + + | 2022-07-24 19:22 | SHELF FILLER (CURRENT) USE OF | [facility] | | | INSULIN | | + + + + | 2022-07-24 19:22 | SHELF FILLER (CURRENT) USE OF | [facility] | | | ORAL HYPOGLYCEMIC DRUGS | | + + + + | 2022-07-24 19:22 | 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 | | + + + + | 2022-07-24 19:22 | ALLERGY STATUS TO OTH | [facility] | | | DRUG/MEDS/BIOL SUBST STATUS | | | | | | + + + + | 2022-07-24 19:22 | OTHER NONMEDICINAL | [facility] | | | SUBSTANCE ALLERGY STATUS | | + + + + | 2022-07-27 16:29 | TYPE 2 DIABETES MELLITUS | [facility] | | | WITHOUT COMPLICATIONS | | + + + + | 2022-07-27 16:29 | HYPERLIPIDEMIA, | [facility] | | | UNSPECIFIED | | + + + + | 2022-07-27 16:29 | NICOTINE DEPENDENCE, | [facility] | | | UNSPECIFIED, UNCOMPLICATED | | + + + + | 2022-07-27 16:29 | UNSPECIFIED ASTHMA, | [facility] | | | UNCOMPLICATED | | + + + + | 2022-07-27 16:29 | UNSPECIFIED ABDOMINAL PAIN | [facility] | | | | | + + + + | 2022-07-27 16:29 | NAUSEA WITH VOMITING, | [facility] | | | UNSPECIFIED | | + + + + | 2022-07-27 16:29 | SHELF FILLER (CURRENT) USE OF | [facility] | | | INSULIN | | + + + + | 2022-07-27 16:29 | HALFWAY (CURRENT) USE OF | [facility] | | | ORAL HYPOGLYCEMIC DRUGS | | + + + + | 2022-07-27 16:29 | 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 | | + + + + | 2022-07-27 16:29 | ALLERGY STATUS TO OTH | [facility] | | | DRUG/MEDS/BIOL SUBST STATUS | | | | | | + + + + | 2022-07-27 16:29 | OTHER NONMEDICINAL | [facility] | | | SUBSTANCE ALLERGY STATUS | | + + + + | 2022-07-29 06:41 | TYPE 2 DIABETES MELLITUS | [facility] | | | WITHOUT COMPLICATIONS | | + + + + | 2022-07-29 06:41 | HYPERLIPIDEMIA, | [facility] | | | UNSPECIFIED | | + + + + | 2022-07-29 06:41 | NICOTINE DEPENDENCE, | [facility] | | | UNSPECIFIED, UNCOMPLICATED | | + + + + | 2022-07-29 06:41 | UNSPECIFIED ASTHMA, | [facility] | | | UNCOMPLICATED | | + + + + | 2022-07-29 06:41 | OTHER OVARIAN CYST, RIGHT | [facility] | | | SIDE | | + + + + | 2022-07-29 06:41 | NAUSEA WITH VOMITING, | [facility] | | | UNSPECIFIED | | + + + + | 2022-07-29 06:41 | HALFWAY (CURRENT) USE OF | [facility] | | | INSULIN | | + + + + | 2022-07-29 06:41 | OTHER HALFWAY (CURRENT) | [facility] | | | DRUG THERAPY | | + + + + | 2022-07-29 06:41 | ALLERGY STATUS TO OTH | [facility] | | | DRUG/MEDS/BIOL SUBST STATUS | | | | | | + + + + | 2022-07-29 06:41 | OTHER NONMEDICINAL | [facility] | | | SUBSTANCE ALLERGY STATUS | | + + + + | 2022-07-31 00:00 | Pneumonia | [facility] | + + + + | 2022-07-31 00:00 | Pneumonia | [facility] | + + + + | 2022-07-31 00:00 | Pneumonia | [facility] | + + + + | 2022-07-31 00:00 | Cyst of right ovary | [facility] | + + + + | 2022-07-31 00:00 | Cyst of right ovary | [facility] | + + + + | 2022-07-31 00:00 | Cyst of right ovary | [facility] | + + + + | 2022-07-31 07:48 | TYPE 2 DIABETES MELLITUS | [facility] | | | WITHOUT COMPLICATIONS | | + + + + | 2022-07-31 07:48 | HYPERLIPIDEMIA, | [facility] | | | UNSPECIFIED | | + + + + | 2022-07-31 07:48 | NICOTINE DEPENDENCE, | [facility] | | | UNSPECIFIED, UNCOMPLICATED | | + + + + | 2022-07-31 07:48 | PNEUMONIA, UNSPECIFIED | [facility] | | | ORGANISM | | + + + + | 2022-07-31 07:48 | UNSPECIFIED ASTHMA, | [facility] | | | UNCOMPLICATED | | + + + + | 2022-07-31 07:48 | UNSPECIFIED OVARIAN CYST, | [facility] | | | RIGHT SIDE | | + + + + | 2022-07-31 07:48 | FEVER, UNSPECIFIED | [facility] | + + + + | 2022-07-31 07:48 | SHELF FILLER (CURRENT) USE OF | [facility] | | | INSULIN | | + + + + | 2022-07-31 07:48 | SHELF FILLER (CURRENT) USE OF | [facility] | | | ORAL HYPOGLYCEMIC DRUGS | | + + + + | 2022-07-31 07:48 | OTHER HALFWAY (CURRENT) | [facility] | | | DRUG THERAPY | | + + + + | 2022-07-31 07:48 | ALLERGY STATUS TO OTH | [facility] | | | DRUG/MEDS/BIOL SUBST STATUS | | | | | | + + + + | 2022-07-31 07:48 | OTHER NONMEDICINAL | [facility] | | | SUBSTANCE ALLERGY STATUS | | + + + + | 2022-08-05 06:48 | TYPE 2 DIABETES MELLITUS | [facility] | | | WITHOUT COMPLICATIONS | | + + + + | 2022-08-05 06:48 | HYPERLIPIDEMIA, | [facility] | | | UNSPECIFIED | | + + + + | 2022-08-05 06:48 | NICOTINE DEPENDENCE, | [facility] | | | UNSPECIFIED, UNCOMPLICATED | | + + + + | 2022-08-05 06:48 | PNEUMONIA, UNSPECIFIED | [facility] | | | ORGANISM | | + + + + | 2022-08-05 06:48 | UNSPECIFIED ASTHMA, | [facility] | | | UNCOMPLICATED | | + + + + | 2022-08-05 06:48 | GASTROINTESTINAL | [facility] | | | HEMORRHAGE, UNSPECIFIED | | + + + + | 2022-08-05 06:48 | NAUSEA WITH VOMITING, | [facility] | | | UNSPECIFIED | | + + + + | 2022-08-05 06:48 | OTHER HALFWAY (CURRENT) | [facility] | | | DRUG THERAPY | | + + + + | 2022-08-05 06:48 | ALLERGY STATUS TO OTH | [facility] | | | DRUG/MEDS/BIOL SUBST STATUS | | | | | | + + + + | 2022-08-05 06:48 | OTHER NONMEDICINAL | [facility] | | | SUBSTANCE ALLERGY STATUS | | + + + + | 2022-08-13 06:33 | TYPE 2 DIABETES MELLITUS | [facility] | | | WITH HYPERGLYCEMIA | | + + + + | 2022-08-13 06:33 | HYPERLIPIDEMIA, | [facility] | | | UNSPECIFIED | | + + + + | 2022-08-13 06:33 | CHRONIC OBSTRUCTIVE | [facility] | | | PULMONARY DISEASE, | | | | UNSPECIFIED | | + + + + | 2022-08-13 06:33 | UNSPECIFIED ASTHMA, | [facility] | | | UNCOMPLICATED | | + + + + | 2022-08-13 06:33 | UNSPECIFIED ABDOMINAL PAIN | [facility] | | | | | + + + + | 2022-08-13 06:33 | VOMITING, UNSPECIFIED | [facility] | + + + + | 2022-08-13 06:33 | SHELF FILLER (CURRENT) USE OF | [facility] | | | INSULIN | | + + + + | 2022-08-13 06:33 | SHELF FILLER (CURRENT) USE OF | [facility] | | | ORAL HYPOGLYCEMIC DRUGS | | + + + + | 2022-08-13 06:33 | OTHER HALFWAY (CURRENT) | [facility] | | | DRUG THERAPY | | + + + + | 2022-08-13 06:33 | ALLERGY STATUS TO OTH | [facility] | | | DRUG/MEDS/BIOL SUBST STATUS | | | | | | + + + + | 2022-08-13 06:33 | OTHER NONMEDICINAL | [facility] | | | SUBSTANCE ALLERGY STATUS | | + + + + | 2022-08-21 09:11 | TYPE 2 DIABETES MELLITUS | [facility] | | | WITH HYPERGLYCEMIA | | + + + + | 2022-08-21 09:11 | HYPERLIPIDEMIA, | [facility] | | | UNSPECIFIED | | + + + + | 2022-08-21 09:11 | NICOTINE DEPENDENCE, | [facility] | | | UNSPECIFIED, UNCOMPLICATED | | + + + + | 2022-08-21 09:11 | UNSPECIFIED ASTHMA, | [facility] | | | UNCOMPLICATED | | + + + + | 2022-08-21 09:11 | RIGHT LOWER QUADRANT PAIN | [facility] | + + + + | 2022-08-21 09:11 | NAUSEA WITH VOMITING, | [facility] | | | UNSPECIFIED | | + + + + | 2022-08-21 09:11 | HALFWAY (CURRENT) USE OF | [facility] | | | INSULIN | | + + + + | 2022-08-21 09:11 | OTHER HALFWAY (CURRENT) | [facility] | | | DRUG THERAPY | | + + + + | 2022-08-21 09:11 | ALLERGY STATUS TO OTH | [facility] | | | DRUG/MEDS/BIOL SUBST STATUS | | | | | | + + + + | 2022-08-21 09:11 | OTHER NONMEDICINAL | [facility] | | | SUBSTANCE ALLERGY STATUS | | + + + + | 2022-08-31 00:00 | Peptic ulcer with | [facility] | | | hemorrhage | | + + + + | 2022-08-31 00:00 | Peptic ulcer with | [facility] | | | hemorrhage | | + + + + | 2022-08-31 09:03 | TYPE 2 DIABETES MELLITUS | [facility] | | | WITHOUT COMPLICATIONS | | + + + + | 2022-08-31 09:03 | HYPERLIPIDEMIA, | [facility] | | | UNSPECIFIED | | + + + + | 2022-08-31 09:03 | NICOTINE DEPENDENCE, | [facility] | | | CIGARETTES, UNCOMPLICATED | | + + + + | 2022-08-31 09:03 | UNSPECIFIED ASTHMA, | [facility] | | | UNCOMPLICATED | | + + + + | 2022-08-31 09:03 | CHRONIC OR UNSP PEPTIC | [facility] | | | ULCER, SITE UNSP, WITH HEMO | | | | | | + + + + | 2022-08-31 09:03 | VOMITING, UNSPECIFIED | [facility] | + + + + | 2022-08-31 09:03 | HALFWAY (CURRENT) USE OF | [facility] | | | INSULIN | | + + + + | 2022-08-31 09:03 | 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 | | + + + + | 2022-08-31 09:03 | ALLERGY STATUS TO OTH | [facility] | | | DRUG/MEDS/BIOL SUBST STATUS | | | | | | + + + + | 2022-08-31 09:03 | OTHER NONMEDICINAL | [facility] | | | SUBSTANCE ALLERGY STATUS | | + + + + | 2022-10-19 10:30 | TYPE 2 DIABETES MELLITUS | [facility] | | | WITH HYPERGLYCE | | + + + + | 2022-10-19 10:30 | OTHER SPECIFIED DIABETES | [facility] | | | MELLITUS WITHOU | | + + + + | 2022-12-05 00:00 | Diarrhea | [facility] | + + + + Procedures + + + + | date | description | facility | + + + + | 2022-07-09 00:00 | INSERT INFUSION DEV IN R | [facility] | | | INT JUGULAR VEIN, PERC | | + + + + | 2021-07-18 00:00 | INSERTION OF INFUSION | [facility] | | | DEVICE INTO UPPER VEIN, | | | | PERC APPROACH | | + + + + | 2022-02-05 00:00 | EXCISION OF STOMACH, ENDO, | [facility] | | | DIAGN | | + + + + | 2021-08-11 00:00 | EXCISION OF ABD | [facility] | | | SUBCU/FASCIA, OPEN APPROACH | | | | | | + + + + | 2021-08-14 00:00 | REPAIR ABDOMEN | [facility] | | | SUBCUTANEOUS TISSUE AND | | | | FASCIA, OPEN APPROACH | | + + + + | 2022-07-22 00:00 | EXTRACTION OF ENDOMETRIUM, | [facility] | | | ENDO | | + + + + | 2022-07-09 00:00 | CONTROL BLEEDING IN | [facility] | | | GASTROINTESTINAL TRACT, | | | | ENDO | | + + + + | 2021-07-28 00:00 | BODY FLUID AMYLASE | [facility] | | | | Specialties | + + + + | 2021-07-28 00:00 | BODY FLUID BILIRUBIN TOTAL | [facility] | | | | Specialties | + + + + | 2021-07-23 00:00 | SURGICAL PATHOLOGY REPORT | [facility] | | | | Care 7th Floor | + + + + | 2021-07-28 00:00 | CYTOLOGY REPORT | [facility] | | | | Specialties | + + + + | 2021-07-19 00:00 | CULTURE BETA STREP ONLY | [facility] | | | | Care 7th Floor | + + + + | 2021-07-28 00:00 | CULTURE BODY FLUID W GRAM | [facility] | | | STAIN | Specialties | + + + + | 2021-07-28 00:00 | BODY FLUID LIPASE | [facility] | | | | Specialties | + + + + | 2021-07-28 00:00 | BODY FLUID UREA NITROGEN | [facility] | | | | Specialties | + + + + | 2021-07-19 00:00 | BETA-HYDROXYBUTYRATE | [facility] | | | | Care 7th Floor | + + + + | 2021-07-19 00:00 | TSH WITH REFLEX | [facility] | | | | Care 7th Floor | + + + + | 2021-07-19 00:00 | URINE DRUG PANEL | [facility] | | | INTERMEDIATE | Care 7th Floor | + + + + | 2021-07-19 00:00 | URINE DRUG PANEL STANDARD | [facility] | | | | Care 7th Floor | + + + + | 2021-07-22 00:00 | HEMOGLOBIN A1C WHOLE BLOOD | [facility] | | | | Care 7th Floor | + + + + | 2021-07-19 00:00 | COMPLETE BLOOD COUNT WITH | [facility] | | | AUTO DIFFERENTIAL | Care 7th Floor | + + + + | 2021-07-28 00:00 | COMPLETE BLOOD COUNT WITH | [facility] | | | AUTO DIFFERENTIAL | Specialties | + + + + | 2021-08-01 00:00 | COMPLETE BLOOD COUNT WITH | [facility] | | | AUTO DIFFERENTIAL | Specialties | + + + + | 2021-08-06 00:00 | COMPLETE BLOOD COUNT WITH | [facility] | | | AUTO DIFFERENTIAL | Department | + + + + | 2021-07-22 00:00 | COMPLETE BLOOD COUNT | [facility] | | | WITHOUT AUTO DIFFERENTIAL | Care 7th Floor | + + + + | 2021-07-23 00:00 | COMPLETE BLOOD COUNT | [facility] | | | WITHOUT AUTO DIFFERENTIAL | Care 7th Floor | + + + + | 2021-07-24 00:00 | COMPLETE BLOOD COUNT | [facility] | | | WITHOUT AUTO DIFFERENTIAL | Care 7th Floor | + + + + | 2021-07-29 00:00 | COMPLETE BLOOD COUNT | [facility] | | | WITHOUT AUTO DIFFERENTIAL | Specialties | + + + + | 2021-07-28 00:00 | _LACTATE WB POCT | [facility] | | | | Specialties | + + + + | 2021-07-23 00:00 | PATHOLOGY PLACENTAL EXAM | [facility] | | | | Care 7th Floor | + + + + | 2021-07-23 00:00 | PATHOLOGY TISSUE SPECIMEN | [facility] | | | | Care 7th Floor | + + + + | 2021-07-28 00:00 | CYTOLOGY BODY FLUID | [facility] | | | | Specialties | + + + + | 2021-07-19 00:00 | URINE TOTAL | [facility] | | | PROTEIN/CREATININE RATIO | [address] | + + + + | 2021-07-20 00:00 | NON-STRESS TEST | [facility] | | | (HOSPITAL PERFORMED) | [address] | + + + + | 2021-07-21 00:00 | NON-STRESS TEST | [facility] | | | (HOSPITAL PERFORMED) | [address] | + + + + | 2021-07-23 00:00 | NON-STRESS TEST | [facility] | | | (HOSPITAL PERFORMED) | [address] | + + + + | 2021-07-19 00:00 | SYPHILIS AB SCREEN WITH | [facility] | | | REFLEX | Care 7th Floor | + + + + | 2021-07-19 00:00 | LAB SPECIMEN REJECTION | [facility] | | | ORDER | Care 7th Floor | + + + + | 2021-07-20 00:00 | LAB SPECIMEN REJECTION | [facility] | | | ORDER | Care 7th Floor | + + + + | 2021-07-22 00:00 | LAB SPECIMEN REJECTION | [facility] | | | ORDER | Care 7th Floor | + + + + | 2021-07-28 00:00 | BF CELL COUNT AND | [facility] | | | DIFFERENTIAL | Specialties | + + + + | 2021-07-16 00:00 | URINALYSIS POC - EXTERNAL | [facility] | + + + + | 2021-07-19 00:00 | TYPE AND SCREEN | [facility] | | | | Care 7th Floor | + + + + | 2021-07-22 00:00 | TYPE AND SCREEN | [facility] | | | | Care 7th Floor | + + + + | 2021-07-29 00:00 | TYPE AND SCREEN | [facility] | | | | Specialties | + + + + | 2021-07-19 00:00 | ANTIBODY SCREEN | [facility] | | | | Care 7th Floor | + + + + | 2021-07-22 00:00 | ANTIBODY SCREEN | [facility] | | | | Care [address] [place] [address] | + + + + | 2021-07-29 00:00 | ANTIBODY SCREEN | [facility] | | | | Specialties | + + + + | 2021-07-23 00:00 | PREPARE RED BLOOD CELLS | [facility] | | | | Care [facility] Floor | + + + + | 2021-07-29 00:00 | PREPARE RED BLOOD CELLS | [facility] | | | | Specialties | + + + + | 2021-07-19 00:00 | HOLD BLOOD BANK SPECIMEN | [facility] | | | | Care 7th Floor | + + + + | 2021-07-19 00:00 | _POCT GLUCOSE | [facility] | | | | Care 7th Floor | + + + + | 2021-07-20 00:00 | _POCT GLUCOSE | [facility] | | | | Care 7th Floor | + + + + | 2021-07-21 00:00 | _POCT GLUCOSE | [facility] | | | | Care 7th Floor | + + + + | 2021-07-22 00:00 | _POCT GLUCOSE | [facility] | | | | Care 7th Floor | + + + + | 2021-07-23 00:00 | _POCT GLUCOSE | [facility] | | | | Care 7th Floor | + + + + | 2021-07-24 00:00 | _POCT GLUCOSE | [facility] | | | | Care 7th Floor | + + + + | 2021-07-25 00:00 | _POCT GLUCOSE | [facility] | | | | Care 7th Floor | + + + + | 2021-07-26 00:00 | _POCT GLUCOSE | [facility] | | | | Care 7th Floor | + + + + | 2021-07-27 00:00 | _POCT GLUCOSE | [facility] | | | | Care 7th Floor | + + + + | 2021-07-28 00:00 | _POCT GLUCOSE | [facility] | | | | Specialties | + + + + | 2021-07-29 00:00 | _POCT GLUCOSE | [facility] | | | | Specialties | + + + + | 2021-07-30 00:00 | _POCT GLUCOSE | [facility] | | | | Specialties | + + + + | 2021-07-25 00:00 | URINE DIPSTICK | [facility] | | | | Care 7th Floor | + + + + | 2021-07-19 00:00 | _NISHI W MICROSCOPIC C/S IF | [facility] | | | INDICATED - IP ONLY | [facility] Floor | + + + + | 2021-07-28 00:00 | _NISHI W MICROSCOPIC C/S IF | [facility] | | | INDICATED - IP ONLY | Specialties | + + + + | 2022-02-04 00:00 | TRANSFUSE NONAUT RED BLOOD | [facility] | | | CELLS IN PERIPH VEIN, PERC | | | | | | + + + + | 2021-11-11 00:00 | Controlling Blood | [facility] | | | Pressure; Most recent | | | | Systolic <130mm Hg | | + + + + | 2021-12-18 00:00 | Controlling Blood | [facility] | | | Pressure; Most recent | | | | Systolic <130mm Hg | | + + + + | 2022-02-12 00:00 | Controlling Blood | [facility] | | | Pressure; Most | | | | Systolic <130mm Hg | | + + + + | 2022-02-23 00:00 | Controlling Blood | [facility] | | | Pressure; Most recent | | | | Systolic <130mm Hg | | + + + + | 2021-09-21 00:00 | Controlling BP; Most | [facility] | | | recent Systolic BP | | | | 130-139mm Hg | | + + + + | 2021-09-21 00:00 | Controlling BP; [facility] | [facility] | | | recent Diastolic BP < 80mm | | | | Hg | | + + + + | 2021-11-11 00:00 | Controlling BP; | [facility] | | | recent Diastolic BP < 80mm | | | | Hg | | + + + + | 2022-02-12 00:00 | Controlling BP; | [facility] | | | recent Diastolic BP < 80mm | | | | Hg | | + + + + | 2021-12-18 00:00 | Controlling BP; | [facility] | | | recent Diastolic BP btwn | | | | 80-89 mm Hg | | + + + + | 2022-02-23 00:00 | Controlling BP; Most | [facility] | | | recent Diastolic BP btwn | | | | 80-89 mm Hg | | + + + + | 2021-07-28 00:00 | URINE CREATININE | [facility] | | | | Specialties | + + + + | 2021-07-19 00:00 | URINE OSMOLALITY | [facility] | | | | Care 7th Floor | + + + + | 2021-07-19 00:00 | URINE SODIUM | [facility] | | | | Care 7th Floor | + + + + | 2022-07-09 00:00 | INSERT NON-TUNNEL CV CATH | [facility] | + + + + | 2022-07-09 00:00 | EGD CONTROL BLEEDING ANY | [facility] | + + + + | 2021-07-16 00:00 | MONITORING OF POC, CARDIAC | [facility] | | | RATE, SENIOR SUSTAIN[employer] CONSULTANT APPROACH | | + + + + | 2021-07-29 00:00 | CYSTOSCOPY, URETERAL STENT | [facility] | | | INSERTION | Specialties | + + + + | 2021-07-19 00:00 | ABORH BLOOD TYPE | [facility] | | | | Care 7th Floor | + + + + | 2021-07-22 00:00 | ABORH BLOOD TYPE | [facility] | | | | Care 7th Floor | + + + + | 2021-07-29 00:00 | ABORH BLOOD TYPE | [facility] | | | | Specialties | + + + + | 2022-07-22 00:00 | HYSTEROSCOPY BIOPSY | [facility] | + + + + | 2021-07-20 00:00 | TROPONIN I LEVEL | [facility] | | | | Care 7th Floor | + + + + | 2021-07-21 00:00 | TROPONIN I LEVEL | [facility] | | | | Care 7th Floor | + + + + | 2021-07-28 00:00 | URINE UREA NITROGEN | [facility] | | | | Specialties | + + + + | 2021-07-19 00:00 | COMPREHENSIVE METABOLIC | [facility] | | | PANEL | Care 7th Floor | + + + + | 2021-07-20 00:00 | COMPREHENSIVE METABOLIC | [facility] | | | PANEL | Care 7th Floor | + + + + | 2021-07-21 00:00 | COMPREHENSIVE METABOLIC | [facility] | | | PANEL | Care 7th Floor | + + + + | 2021-07-22 00:00 | COMPREHENSIVE METABOLIC | [facility] | | | PANEL | Care [facility] Floor | + + + + | 2021-07-23 00:00 | COMPREHENSIVE METABOLIC | [facility] | | | PANEL | Care 7th Floor | + + + + | 2021-07-24 00:00 | COMPREHENSIVE METABOLIC | [facility] | | | PANEL | Care 7th [facility] | + + + + | 2021-07-28 00:00 | COMPREHENSIVE METABOLIC | [facility] | | | PANEL | Specialties | + + + + | 2021-08-06 00:00 | COMPREHENSIVE METABOLIC | [facility] | | | PANEL | Department | + + + + | 2021-07-29 00:00 | RENAL FUNCTION PANEL | [facility] | | | | Specialties | + + + + | 2021-08-01 00:00 | RENAL FUNCTION PANEL | [facility] | | | | Specialties | + + + + | 2021-07-28 00:00 | CT PELVIS WO CONTRAST | [facility] | | | | Specialties | + + + + | 2021-08-01 00:00 | X-RAY ABDOMEN 1 VIEW | [facility] | | | PORTABLE | Specialties | + + + + | 2021-07-28 00:00 | CT ABDOMEN/PELVIS W | [facility] | | | CONTRAST | Specialties | + + + + | 2021-07-19 00:00 | AMYLASE LEVEL | [facility] | | | | Care 7th Floor | + + + + | 2021-07-28 00:00 | CULTURE BLOOD | [facility] | | | | Specialties | + + + + | 2021-07-28 00:00 | US ABSCESS DRAIN | [facility] | | | RETROPERITONEAL | Specialties | + + + + | 2021-07-29 00:00 | FLUORO > 1 HOUR PORTABLE | [facility] | | | | Specialties | + + + + | 2021-07-19 00:00 | HC OB FOLLOW-UP SINGLE | [facility] | | | FETUS ULTRASOUND | Care [facility] Floor | + + + + | 2021-07-27 00:00 | RUBELLA ANTIBODY IGG | [facility] | | | | Care 7th Floor | + + + + | 2021-07-28 00:00 | BODY FLUID CREATININE | [facility] | | | | Specialties | + + + + | 2021-07-31 00:00 | BODY FLUID CREATININE | [facility] | | | | Specialties | + + + + | 2021-08-01 00:00 | BODY FLUID CREATININE | [facility] | | | | Specialties | + + + + | 2021-08-01 00:00 | LACTATE | [facility] | | | | Specialties | + + + + | 2021-07-19 00:00 | LIPASE | [facility] | | | | Care 7th Floor | + + + + | 2021-07-28 00:00 | LIPASE | [facility] | | | | Specialties | + + + + | 2021-07-19 00:00 | MAGNESIUM LEVEL | [facility] | | | | Care 7th Floor | + + + + | 2021-07-20 00:00 | MAGNESIUM LEVEL | [facility] | | | | Care 7th Floor | + + + + | 2021-08-01 00:00 | MAGNESIUM LEVEL | [facility] | | | | Specialties | + + + + | 2021-08-01 00:00 | B-TYPE NATRIURETIC PEPTIDE | [facility] | | | | Specialties | + + + + | 2021-07-19 00:00 | OSMOLALITY | [facility] | | | | Care 7th Floor | + + + + | 2021-07-19 00:00 | PHOSPHORUS LEVEL | [facility] | | | | Care 7th Floor | + + + + | 2021-07-20 00:00 | POTASSIUM LEVEL | [facility] | | | | Care 7th Floor | + + + + | 2021-07-19 00:00 | T4 FREE | [facility] | | | | Care 7th Floor | + + + + | 2020-02-13 00:00 | Flulaval Flu Vaccine PFS | [facility] | | | Quadrivalent | | + + + + | 2021-07-19 00:00 | ASPARTATE AMINOTRANSFERASE | [facility] | | | | Care 7th Floor | + + + + | 2021-07-19 00:00 | URIC ACID | [facility] | | | | Care 7th Floor | + + + + | 2021-07-20 00:00 | HC EKG | [facility] | | | | Care 7th Floor | + + + + | 2021-07-21 00:00 | ECHO COMPLETE STUDY | [facility] | | | | Care 7th Floor | + + + + | 2021-08-01 00:00 | US VASCULAR VENOUS LOWER | [facility] | | | EXT BILATERAL | Specialties | + + + + | 2021-07-25 00:00 | US VASCULAR VENOUS LOWER | [facility] | | | EXT RIGHT | Care 7th Floor | + + + + | 2021-08-03 00:00 | ED INFORMATION EXCHANGE | [facility] | | | | Department | + + + + | 2021-08-06 00:00 | ED INFORMATION EXCHANGE | [facility] | | | | Department | + + + + | 2020-02-13 00:00 | Administration of | [facility] | | | Influenza Virus Vaccine | | | | (Medicare) | | + + + + | 2021-09-21 00:00 | Annual Depression | [facility] | | | Screening; 15 Minutes | | + + + + | 2021-07-28 00:00 | CORONAVIRUS SARS-COV-2 FLU | [facility] | | | AB RSV RAPID BY PCR | Specialties | + + + + Results/Labs +--------+--------+ +---------+--------+---------+ | test | date | facility | value | unit | notes | +--------+--------+ +---------+--------+---------+ + + | Result panel 1 | + + + + + + + + + | | (no date) | [facility] | COMPATIBLE | (missing) | (missing) | | (unavailable | [facility] | | | | + + + + + + + + + | Result panel 2 | + + + + + + + + + | | (no date) | [facility] | COMPATIBLE | (missing) | (missing) | | (unavailable | [facility] | | | | + + + + + + + + + | Result panel 3 | + + + + + + + + + | | (no date) | [facility] | COMPATIBLE | (missing) | (missing) | | (unavailable | [facility] | | | | + + + + + + + + + | Result panel 4 | + + + + + + + + + | | (no date) | [facility] | COMPATIBLE | (missing) | (missing) | | (unavailable | [facility] | | | | + + + + + + + + + | Result panel 5 | + + + + + + + + + | | (no date) | [facility] | COMPATIBLE | (missing) | (missing) | | (unavailable | [facility] | | | | + + + + + + + + + | Result panel 6 | + + + + + + + + + | | (no date) | [facility] | COMPATIBLE | (missing) | (missing) | | (unavailable | [facility] | | | | + + + + + + + + + | Result panel 7 | + + + + + + + + + | | (no date) | [facility] | COMPATIBLE | (missing) | (missing) | | (unavailable | [facility] | | | | + + + + + + + + + | Result panel 8 | + + + + + + + + + | | (no date) | [facility] | COMPATIBLE | (missing) | (missing) | | (unavailable | [facility] | | | | + + + + + + + + + | Result panel 9 | + + + + + + + + + | Specimen | (no date) | [facility] | (missing) | (missing) | (missing) | | collection | | [facility] | | | | | (procedure) | | Acute Care | | | | | | | 7th Floor | | | | + + + + + + + + + | Result panel 10 | + + + + + + + + + | Specimen | (no date) | [facility] | (missing) | (missing) | (missing) | | collection | | [facility] | | | | | (procedure) | | Acute Care | | | | | | | 7th Floor | | | | + + + + + + + + + | Result panel 11 | + + + + + + + + + | Specimen | (no date) | [facility] | (missing) | (missing) | (missing) | | collection | | [facility] | | | | | (procedure) | | Acute Care | | | | | | | 7th Floor | | | | + + + + + + + + + | Result panel 12 | + + + + + + + + + | Specimen | (no date) | [facility] | (missing) | (missing) | (missing) | | collection | | [facility] | | | | | (procedure) | | Acute Care | | | | | | | 7th Floor | | | | + + + + + + + + + | Result panel 13 | + + + + + + + + + | Specimen | (no date) | [facility] | (missing) | (missing) | (missing) | | collection | | [facility] | | | | | (procedure) | | Acute Care | | | | | | | 7th Floor | | | | + + + + + + + + + | Result panel 14 | + + + + + + + + + | Specimen | (no date) | [facility] | (missing) | (missing) | (missing) | | collection | | [facility] | | | | | (procedure) | | Acute Care | | | | | | | 7th Floor | | | | + + + + + + + + + | Result panel 15 | + + + + + + + + + | Specimen | (no date) | [facility] | (missing) | (missing) | (missing) | | collection | | [facility] | | | | | (procedure) | | Acute Care | | | | | | | 7th Floor | | | | + + + + + + + + + | Result panel 16 | + + + + + + + + + | Specimen | (no date) | [facility] | (missing) | (missing) | (missing) | | collection | | [facility] | | | | | (procedure) | | Acute Care | | | | | | | 7th Floor | | | | + + + + + + + + + | Result panel 17 | + + + + + + + + + | Specimen | (no date) | [facility] | (missing) | (missing) | (missing) | | collection | | [facility] | | | | | (procedure) | | Acute Care | | | | | | | 7th Floor | | | | + + + + + + + + + | Result panel 18 | + + + + + + + + + | Specimen | (no date) | [facility] | (missing) | (missing) | (missing) | | collection | | [facility] | | | | | (procedure) | | Acute Care | | | | | | | 7th Floor | | | | + + + + + + + + + | Result panel 19 | + + + + + + + + + | Specimen | (no date) | [facility] | (missing) | (missing) | (missing) | | collection | | [facility] | | | | | (procedure) | | Acute Care | | | | | | | 7th Floor | | | | + + + + + + + + + | Result panel 20 | + + + + + + + + + | Specimen | (no date) | [facility] | (missing) | (missing) | (missing) | | collection | | [facility] | | | | | (procedure) | | Acute Care | | | | | | | 7th Floor | | | | + + + + + + + + + | Result panel 21 | + + + + + + + + + | Specimen | (no date) | [facility] | (missing) | (missing) | (missing) | | collection | | [facility] | | | | | (procedure) | | Acute Care | | | | | | | 7th Floor | | | | + + + + + + + + + | Result panel 22 | + + + + + + + + + | Specimen | (no date) | [facility] | (missing) | (missing) | (missing) | | collection | | [facility] | | | | | (procedure) | | Acute Care | | | | | | | 7th Floor | | | | + + + + + + + + + | Result panel 23 | + + + + + + + + + | Specimen | (no date) | [facility] | (missing) | (missing) | (missing) | | collection | | [facility] | | | | | (procedure) | | Acute Care | | | | | | | 7th Floor | | | | + + + + + + + + + | Result panel 24 | + + + + + + + + + | Specimen | (no date) | [facility] | (missing) | (missing) | (missing) | | collection | | [facility] | | | | | (procedure) | | Acute Care | | | | | | | 7th Floor | | | | + + + + + + + + + | Result panel 25 | + + + + + + + + + | Specimen | (no date) | [facility] | (missing) | (missing) | (missing) | | collection | | [facility] | | | | | (procedure) | | Acute Care | | | | | | | 7th Floor | | | | + + + + + + + + + | Result panel 26 | + + + + + + + + + | Specimen | (no date) | [facility] | (missing) | (missing) | (missing) | | collection | | [facility] | | | | | (procedure) | | Acute Care | | | | | | | 7th Floor | | | | + + + + + + + + + | Result panel 27 | + + + + + + + + + | Specimen | (no date) | [facility] | (missing) | (missing) | (missing) | | collection | | [facility] | | | | | (procedure) | | Acute Care | | | | | | | 7th Floor | | | | + + + + + + + + + | Result panel 28 | + + + + + + + + + | Specimen | (no date) | [facility] | (missing) | (missing) | (missing) | | collection | | [facility] | | | | | (procedure) | | Acute Care | | | | | | | 7th Floor | | | | + + + + + + + + + | Result panel 29 | + + + + + + + + + | Specimen | (no date) | [facility] | (missing) | (missing) | (missing) | | collection | | [facility] | | | | | (procedure) | | Acute Care | | | | | | | 7th Floor | | | | + + + + + + + + + | Result panel 30 | + + + + + + + + + | Specimen | (no date) | [facility] | (missing) | (missing) | (missing) | | collection | | [facility] | | | | | (procedure) | | Acute Care | | | | | | | 7th Floor | | | | + + + + + + + + + | Result panel 31 | + + + + + + + + + | Specimen | (no date) | [facility] | (missing) | (missing) | (missing) | | collection | | [facility] | | | | | (procedure) | | Acute Care | | | | | | | 7th Floor | | | | + + + + + + + + + | Result panel 32 | + + + + + + + + + | Specimen | (no date) | [facility] | (missing) | (missing) | (missing) | | collection | | [facility] | | | | | (procedure) | | Acute Care | | | | | | | 7th Floor | | | | + + + + + + + + + | Result panel 33 | + + + + + + + + + | Specimen | (no date) | [facility] | (missing) | (missing) | (missing) | | collection | | [facility] | | | | | (procedure) | | Acute Care | | | | | | | 7th Floor | | | | + + + + + + + + + | Result panel 34 | + + + + + + + + + | Specimen | (no date) | [facility] | (missing) | (missing) | (missing) | | collection | | [facility] | | | | | (procedure) | | Acute Care | | | | | | | 7th Floor | | | | + + + + + + + + + | Result panel 35 | + + + + + + + + + | Specimen | (no date) | [facility] | (missing) | (missing) | (missing) | | collection | | [facility] | | | | | (procedure) | | Acute Care | | | | | | | 7th Floor | | | | + + + + + + + + + | Result panel 36 | + + + + + + + + + | Specimen | (no date) | [facility] | (missing) | (missing) | (missing) | | collection | | [facility] | | | | | (procedure) | | Acute Care | | | | | | | 7th Floor | | | | + + + + + + + + + | Result panel 37 | + + + + + + + + + | Specimen | (no date) | [facility] | (missing) | (missing) | (missing) | | collection | | [facility] | | | | | (procedure) | | Acute Care | | | | | | | 7th Floor | | | | + + + + + + + + + | Result panel 38 | + + + + + + + + + | Specimen | (no date) | [facility] | (missing) | (missing) | (missing) | | collection | | [facility] | | | | | (procedure) | | Acute Care | | | | | | | 7th Floor | | | | + + + + + + + + + | Result panel 39 | + + + + + + + + + | Specimen | (no date) | [facility] | (missing) | (missing) | (missing) | | collection | | [facility] | | | | | (procedure) | | Acute Care | | | | | | | 7th Floor | | | | + + + + + + + + + | Result panel 40 | + + + + + + + + + | Specimen | (no date) | [facility] | (missing) | (missing) | (missing) | | collection | | [facility] | | | | | (procedure) | | Acute Care | | | | | | | 7th Floor | | | | + + + + + + + + + | Result panel 41 | + + + + + + + + + | Specimen | (no date) | [facility] | (missing) | (missing) | (missing) | | collection | | [facility] | | | | | (procedure) | | Acute Care | | | | | | | 7th Floor | | | | + + + + + + + + + | Result panel 42 | + + + + + + + + + | Specimen | (no date) | [facility] | (missing) | (missing) | (missing) | | collection | | [facility] | | | | | (procedure) | | Acute Care | | | | | | | 7th Floor | | | | + + + + + + + + + | Result panel 43 | + + + + + + + + + | Specimen | (no date) | [facility] | (missing) | (missing) | (missing) | | collection | | [facility] | | | | | (procedure) | | Acute Care | | | | | | | 7th Floor | | | | + + + + + + + + + | Result panel 44 | + + + + + + + + + | Specimen | (no date) | [facility] | (missing) | (missing) | (missing) | | collection | | [facility] | | | | | (procedure) | | Acute Care | | | | | | | 7th Floor | | | | + + + + + + + + + | Result panel 45 | + + + + + + + + + | Specimen | (no date) | [facility] | (missing) | (missing) | (missing) | | collection | | [facility] | | | | | (procedure) | | Acute Care | | | | | | | 7th Floor | | | | + + + + + + + + + | Result panel 46 | + + + + + + + + + | Specimen | (no date) | [facility] | (missing) | (missing) | (missing) | | collection | | [facility] | | | | | (procedure) | | Acute Care | | | | | | | 7th Floor | | | | + + + + + + + + + | Result panel 47 | + + + + + + + + + | Specimen | (no date) | [facility] | (missing) | (missing) | (missing) | | collection | | [facility] | | | | | (procedure) | | Acute Care | | | | | | | 7th Floor | | | | + + + + + + + + + | Result panel 48 | + + + + + + + + + | Specimen | (no date) | [facility] | (missing) | (missing) | (missing) | | collection | | [facility] | | | | | (procedure) | | Acute Care | | | | | | | 7th Floor | | | | + + + + + + + + + | Result panel 49 | + + + + + + + + + | Specimen | (no date) | [facility] | (missing) | (missing) | (missing) | | collection | | [facility] | | | | | (procedure) | | Acute Care | | | | | | | 7th Floor | | | | + + + + + + + + + | Result panel 50 | + + + + + + + + + | Specimen | (no date) | [facility] | (missing) | (missing) | (missing) | | collection | | [facility] | | | | | (procedure) | | Acute Care | | | | | | | 7th Floor | | | | + + + + + + + + + | Result panel 51 | + + + + + + + + + | Specimen | (no date) | [facility] | (missing) | (missing) | (missing) | | collection | | [facility] | | | | | (procedure) | | Acute Care | | | | | | | 7th Floor | | | | + + + + + + + + + | Result panel 52 | + + + + + + + + + | Specimen | (no date) | [facility] | (missing) | (missing) | (missing) | | collection | | [facility] | | | | | (procedure) | | Acute Care | | | | | | | 7th Floor | | | | + + + + + + + + + | Result panel 53 | + + + + + + + + + | Specimen | (no date) | [facility] | (missing) | (missing) | (missing) | | collection | | [facility] | | | | | (procedure) | | Acute Care | | | | | | | 7th Floor | | | | + + + + + + + + + | Result panel 54 | + + + + + + + + + | Specimen | (no date) | [facility] | (missing) | (missing) | (missing) | | collection | | [facility] | | | | | (procedure) | | Acute Care | | | | | | | 7th Floor | | | | + + + + + + + + + | Result panel 55 | + + + + + + + + + | Specimen | (no date) | [facility] | (missing) | (missing) | (missing) | | collection | | [facility] | | | | | (procedure) | | Acute Care | | | | | | | 7th Floor | | | | + + + + + + + + + | Result panel 56 | + + + + + + + + + | Specimen | (no date) | [facility] | (missing) | (missing) | (missing) | | collection | | [facility] | | | | | (procedure) | | Acute Care | | | | | | | 7th Floor | | | | + + + + + + + + + | Result panel 57 | + + + + + + + + + | Specimen | (no date) | [facility] | (missing) | (missing) | (missing) | | collection | | [facility] | | | | | (procedure) | | Acute Care | | | | | | | 7th Floor | | | | + + + + + + + + + | Result panel 58 | + + + + + + + + + | Specimen | (no date) | [facility] | (missing) | (missing) | (missing) | | collection | | [facility] | | | | | (procedure) | | Acute Care | | | | | | | 7th Floor | | | | + + + + + + + + + | Result panel 59 | + + + + + + + + + | Specimen | (no date) | [facility] | (missing) | (missing) | (missing) | | collection | | [facility] | | | | | (procedure) | | Acute Care | | | | | | | 7th Floor | | | | + + + + + + + + + | Result panel 60 | + + + + + + + + + | Specimen | (no date) | [facility] | (missing) | (missing) | (missing) | | collection | | [facility] | | | | | (procedure) | | Acute Care | | | | | | | 7th Floor | | | | + + + + + + + + + | Result panel 61 | + + + + + + + + + | Specimen | (no date) | [facility] | (missing) | (missing) | (missing) | | collection | | [facility] | | | | | (procedure) | | Acute Care | | | | | | | 7th Floor | | | | + + + + + + + + + | Result panel 62 | + + + + + + + + + | Specimen | (no date) | [facility] | (missing) | (missing) | (missing) | | collection | | [facility] | | | | | (procedure) | | Acute Care | | | | | | | 7th Floor | | | | + + + + + + + + + | Result panel 63 | + + + + + + + + + | Specimen | (no date) | [facility] | (missing) | (missing) | (missing) | | collection | | [facility] | | | | | (procedure) | | Acute Care | | | | | | | 7th Floor | | | | + + + + + + + + + | Result panel 64 | + + + + + + + + + | Specimen | (no date) | [facility] | (missing) | (missing) | (missing) | | collection | | [facility] | | | | | (procedure) | | Acute Care | | | | | | | 7th Floor | | | | + + + + + + + + + | Result panel 65 | + + + + + + + + + | Specimen | (no date) | [facility] | (missing) | (missing) | (missing) | | collection | | [facility] | | | | | (procedure) | | Acute Care | | | | | | | 7th Floor | | | | + + + + + + + + + | Result panel 66 | + + + + + + + + + | Specimen | (no date) | [facility] | (missing) | (missing) | (missing) | | collection | | [facility] | | | | | (procedure) | | Acute Care | | | | | | | 7th Floor | | | | + + + + + + + + + | Result panel 67 | + + + + + + + + + | Specimen | (no date) | [facility] | (missing) | (missing) | (missing) | | collection | | [facility] | | | | | (procedure) | | Acute Care | | | | | | | 7th Floor | | | | + + + + + + + + + | Result panel 68 | + + + + + + + + + | Specimen | (no date) | [facility] | (missing) | (missing) | (missing) | | collection | | [facility] | | | | | (procedure) | | Acute Care | | | | | | | 7th Floor | | | | + + + + + + + + + | Result panel 69 | + + + + + + + + + | Specimen | (no date) | [facility] | (missing) | (missing) | (missing) | | collection | | [facility] | | | | | (procedure) | | Acute Care | | | | | | | 7th Floor | | | | + + + + + + + + + | Result panel 70 | + + + + + + + + + | Specimen | (no date) | [facility] | (missing) | (missing) | (missing) | | collection | | [facility] | | | | | (procedure) | | Acute Care | | | | | | | 7th Floor | | | | + + + + + + + + + | Result panel 71 | + + + + + + + + + | Specimen | (no date) | [facility] | (missing) | (missing) | (missing) | | collection | | [facility] | | | | | (procedure) | | Acute Care | | | | | | | 7th Floor | | | | + + + + + + + + + | Result panel 72 | + + + + + + + + + | Specimen | (no date) | [facility] | (missing) | (missing) | (missing) | | collection | | [facility] | | | | | (procedure) | | Acute Care | | | | | | | 7th Floor | | | | + + + + + + + + + | Result panel 73 | + + + + + + + + + | Specimen | (no date) | [facility] | (missing) | (missing) | (missing) | | collection | | [facility] | | | | | (procedure) | | Acute Care | | | | | | | 7th Floor | | | | + + + + + + + + + | Result panel 74 | + + + + + + + + + | Specimen | (no date) | [facility] | (missing) | (missing) | (missing) | | collection | | [facility] | | | | | (procedure) | | Acute Care | | | | | | | 7th Floor | | | | + + + + + + + + + | Result panel 75 | + + + + + + + + + | Specimen | (no date) | [facility] | (missing) | (missing) | (missing) | | collection | | [facility] | | | | | (procedure) | | Acute Care | | | | | | | 7th Floor | | | | + + + + + + + + + | Result panel 76 | + + + + + + + + + | Specimen | (no date) | [facility] | (missing) | (missing) | (missing) | | collection | | [facility] | | | | | (procedure) | | Acute Care | | | | | | | 7th Floor | | | | + + + + + + + + + | Result panel 77 | + + + + + + + + + | Specimen | (no date) | [facility] | (missing) | (missing) | (missing) | | collection | | [facility] | | | | | (procedure) | | Acute Care | | | | | | | 7th Floor | | | | + + + + + + + + + | Result panel 78 | + + + + + + + + + | Specimen | (no date) | [facility] | (missing) | (missing) | (missing) | | collection | | [facility] | | | | | (procedure) | | Acute Care | | | | | | | 7th Floor | | | | + + + + + + + + + | Result panel 79 | + + + + + + + + + | Specimen | (no date) | [facility] | (missing) | (missing) | (missing) | | collection | | [facility] | | | | | (procedure) | | Acute Care | | | | | | | 7th Floor | | | | + + + + + + + + + | Result panel 80 | + + + + + + + + + | Specimen | (no date) | [facility] | (missing) | (missing) | (missing) | | collection | | [facility] | | | | | (procedure) | | Acute Care | | | | | | | 7th Floor | | | | + + + + + + + + + | Result panel 81 | + + + + + + + + + | Specimen | (no date) | [facility] | (missing) | (missing) | (missing) | | collection | | [facility] | | | | | (procedure) | | Acute Care | | | | | | | 7th Floor | | | | + + + + + + + + + | Result panel 82 | + + + + + + + + + | Specimen | (no date) | [facility] | (missing) | (missing) | (missing) | | collection | | [facility] | | | | | (procedure) | | Acute Care | | | | | | | 7th Floor | | | | + + + + + + + + + | Result panel 83 | + + + + + + + + + | Specimen | (no date) | [facility] | (missing) | (missing) | (missing) | | collection | | [facility] | | | | | (procedure) | | Acute Care | | | | | | | 7th Floor | | | | + + + + + + + + + | Result panel 84 | + + + + + + + + + | Specimen | (no date) | [facility] | (missing) | (missing) | (missing) | | collection | | [facility] | | | | | (procedure) | | [facility] | | | | | | | 7th Floor | | | | + + + + + + + + + | Result panel 85 | + + + + + + + + + | Specimen | (no date) | [facility] | (missing) | (missing) | (missing) | | collection | | [facility] | | | | | (procedure) | | [facility] | | | | | | | 7th Floor | | | | + + + + + + + + + | Result panel 86 | + + + + + + + + + | Specimen | (no date) | [facility] | (missing) | (missing) | (missing) | | collection | | [facility] | | | | | (procedure) | | [facility] | | | | | | | 7th Floor | | | | + + + + + + + + + | Result panel 87 | + + + + + + + + + | Specimen | (no date) | [facility] | (missing) | (missing) | (missing) | | collection | | [facility] | | | | | (procedure) | | [facility] | | | | | | | 7th Floor | | | | + + + + + + + + + | Result panel 88 | + + + + + + + + + | Specimen | (no date) | [facility] | (missing) | (missing) | (missing) | | collection | | [facility] | | | | | (procedure) | | [facility] | | | | | | | 7th Floor | | | | + + + + + + + + + | Result panel 89 | + + + + + + + + + | Specimen | (no date) | [facility] | (missing) | (missing) | (missing) | | collection | | [facility] | | | | | (procedure) | | [facility] | | | | | | | 7th Floor | | | | + + + + + + + + + | Result panel 90 | + + + + + + + + + | Specimen | (no date) | [facility] | (missing) | (missing) | (missing) | | collection | | [facility] | | | | | (procedure) | | [facility] | | | | | | | 7th Floor | | | | + + + + + + + + + | Result panel 91 | + + + + + + + + + | Specimen | (no date) | [facility] | (missing) | (missing) | (missing) | | collection | | [facility] | | ([facility]) | | [facility] | | | | | | | [facility] | | | | + + + + + + + + + | Result panel 92 | + + + + + + + + + | Specimen | (no date) | [facility] | (missing) | (missing) | (missing) | | collection | | [facility] | | | | (procedure) | | [facility] | | | | | | | [facility] Floor | | | | + + + + + + + + + | Result panel 93 | + + + + + + + + + | Specimen | (no date) | [facility] | (missing) | (missing) | (missing) | | collection | | [facility] | | | | ([facility]) | | [facility] | | | | | | | [facility] Floor | | | | + + + + + + + + + | Result panel 94 | + + + + + + + + + | Specimen | (no date) | [facility] | (missing) | (missing) | (missing) | | collection | | [facility] | | | | (procedure) | | [facility] | | | | | | | [facility] Floor | | | | + + + + + + + + + | Result panel 95 | + + + + + + + + + | Specimen | (no date) | [facility] | (missing) | (missing) | (missing) | | collection | | [facility] | | | | (procedure) | | [facility] | | | | | | | [facility] Floor | | | | + + + + + + + + + | Result panel 96 | + + + + + + + + + | Specimen | (no date) | [facility] | (missing) | (missing) | (missing) | | collection | | [facility] | | | | (procedure) | | [facility] | | | | | | | [facility] Floor | | | | + + + + + + + + + | Result panel 97 | + + + + + + + + + | Specimen | (no date) | [facility] | (missing) | (missing) | (missing) | | collection | | [facility] | | | | (procedure) | | [facility] | | | | | | | [facility] Floor | | | | + + + + + + + + + | Result panel 98 | + + + + + + + + + | Specimen | (no date) | [facility] | (missing) | (missing) | (missing) | | collection | | [facility] | | | | (procedure) | | [facility] | | | | | | | [facility] | | | | + + + + + + + + + | Result panel 99 | + + + + + + + + + | Specimen | (no date) | [facility] | (missing) | (missing) | (missing) | | collection | | [facility] | | | | (procedure) | | [facility] | | | | | | | [facility] Floor | | | | + + + + + + + + + | Result panel 100 | + + + + + + + + + | Specimen | (no date) | [facility] | (missing) | (missing) | (missing) | | collection | | [facility] | | | | (procedure) | | [facility] | | | | | | | [facility] Floor | | | | + + + + + + + + + | Result panel 101 | + + + + + + + + + | Specimen | (no date) | [facility] | (missing) | (missing) | (missing) | | collection | | [facility] | | | | (procedure) | | [facility] | | | | | | | [facility] Floor | | | | + + + + + + + + + | Result panel 102 | + + + + + + + + + | Specimen | (no date) | [facility] | (missing) | (missing) | (missing) | | collection | | [facility] | | | | (procedure) | | [facility] | | | | | | | [facility] Floor | | | | + + + + + + + + + | Result panel 103 | + + + + + + + + + | Specimen | (no date) | [facility] | (missing) | (missing) | (missing) | | collection | | [facility] | | | | (procedure) | | [facility] | | | | | | | [facility] Floor | | | | + + + + + + + + + | Result panel 104 | + + + + + + + + + | Specimen | (no date) | [facility] | (missing) | (missing) | (missing) | | collection | | [facility] | | | | (procedure) | | [facility] | | | | | | | [facility] Floor | | | | + + + + + + + + + | Result panel 105 | + + + + + + + + + | Specimen | (no date) | [facility] | (missing) | (missing) | (missing) | | collection | | [facility] | | | | | (procedure) | | [facility] | | | | | | | [facility] Floor | | | | + + + + + + + + + | Result panel 106 | + + + + + + + + + | Specimen | (no date) | [facility] | (missing) | (missing) | (missing) | | collection | | [facility] | | | | | (procedure) | | [facility] | | | | | | | [facility] Floor | | | | + + + + + + + + + | Result panel 107 | + + + + + + + + + | Specimen | (no date) | [facility] | (missing) | (missing) | (missing) | | collection | | [facility] | | | | (procedure) | | [facility] | | | | | | | [facility] Floor | | | | + + + + + + + + + | Result panel 108 | + + + + + + + + + | Specimen | (no date) | [facility] | (missing) | (missing) | (missing) | | collection | | [facility] | | | | | (procedure) | | [facility] | | | | | | | [facility] Floor | | | | + + + + + + + + + | Result panel 109 | + + + + + + + + + | Specimen | (no date) | [facility] | (missing) | (missing) | (missing) | | collection | | [facility] | | | | (procedure) | | [facility] | | | | | | | [facility] Floor | | | | + + + + + + + + + | Result panel 110 | + + + + + + + + + | Specimen | (no date) | [facility] | (missing) | (missing) | (missing) | | collection | | [facility] | | | | (procedure) | | [facility] | | | | | | | [facility] Floor | | | | + + + + + + + + + | Result panel 111 | + + + + + + + + + | Specimen | (no date) | [facility] | (missing) | (missing) | (missing) | | collection | | [facility] | | | | | (procedure) | | [facility] | | | | | | | [facility] Floor | | | | + + + + + + + + + | Result panel 112 | + + + + + + + + + | Specimen | (no date) | [facility] | (missing) | (missing) | (missing) | | collection | | [facility] | | | | | (procedure) | | [facility] | | | | | | | [facility] Floor | | | | + + + + + + + + + | Result panel 113 | + + + + + + + + + | Specimen | (no date) | [facility] | (missing) | (missing) | (missing) | | collection | | [facility] | | | | | (procedure) | | [facility] | | | | | | | [facility] Floor | | | | + + + + + + + + + | Result panel 114 | + + + + + + + + + | Specimen | (no date) | [facility] | (missing) | (missing) | (missing) | | collection | | [facility] | | | | | (procedure) | | [facility] | | | | | | | [facility] Floor | | | | + + + + + + + + + | Result panel 115 | + + + + + + + + + | Specimen | (no date) | [facility] | (missing) | (missing) | (missing) | | collection | | [facility] | | | | | (procedure) | | [facility] | | | | | | | [facility] Floor | | | | + + + + + + + + + | Result panel 116 | + + + + + + + + + | Specimen | (no date) | [facility] | (missing) | (missing) | (missing) | | collection | | [facility] | | | | | (procedure) | | [facility] | | | | | | | [facility] Floor | | | | + + + + + + + + + | Result panel 117 | + + + + + + + + + | Specimen | (no date) | [facility] | (missing) | (missing) | (missing) | | collection | | [facility] | | | | | (procedure) | | [facility] | | | | | | | [facility] Floor | | | | + + + + + + + + + | Result panel 118 | + + + + + + + + + | Specimen | (no date) | [facility] | (missing) | (missing) | (missing) | | collection | | [facility] | | | | | (procedure) | | [facility] | | | | | | | [facility] Floor | | | | + + + + + + + + + | Result panel 119 | + + + + + + + + + | Specimen | (no date) | [facility] | (missing) | (missing) | (missing) | | collection | | [facility] | | | | | (procedure) | | [facility] | | | | | | | [facility] Floor | | | | + + + + + + + + + | Result panel 120 | + + + + + + + + + | Specimen | (no date) | [facility] | (missing) | (missing) | (missing) | | collection | | [facility] | | | | | (procedure) | | [facility] | | | | | | | [facility] Floor | | | | + + + + + + + + + | Result panel 121 | + + + + + + + + + | Specimen | (no date) | [facility] | (missing) | (missing) | (missing) | | collection | | [facility] | | | | | (procedure) | | [facility] | | | | | | | [facility] Floor | | | | + + + + + + + + + | Result panel 122 | + + + + + + + + + | Specimen | (no date) | [facility] | (missing) | (missing) | (missing) | | collection | | [facility] | | | | | (procedure) | | [facility] | | | | | | | [facility] Floor | | | | + + + + + + + + + | Result panel 123 | + + + + + + + + + | Specimen | (no date) | [facility] | (missing) | (missing) | (missing) | | collection | | [facility] | | | | (procedure) | | [facility] | | | | | | | [facility] Floor | | | | + + + + + + + + + | Result panel 124 | + + + + + + + + + | Specimen | (no date) | [facility] | (missing) | (missing) | (missing) | | collection | | [facility] | | | | | (procedure) | | [facility] | | | | | | | [facility] Floor | | | | + + + + + + + + + | Result panel 125 | + + + + + + + + + | Specimen | (no date) | [facility] | (missing) | (missing) | (missing) | | collection | | [facility] | | | | | (procedure) | | [facility] | | | | | | | [facility] Floor | | | | + + + + + + + + + | Result panel 126 | + + + + + + + + + | Specimen | (no date) | [facility] | (missing) | (missing) | (missing) | | collection | | [facility] | | | | | (procedure) | | [facility] | | | | | | | [facility] Floor | | | | + + + + + + + + + | Result panel 127 | + + + + + + + + + | Specimen | (no date) | [facility] | (missing) | (missing) | (missing) | | collection | | [facility] | | | | | (procedure) | | [facility] | | | | | | | [facility] Floor | | | | + + + + + + + + + | Result panel 128 | + + + + + + + + + | Specimen | (no date) | [facility] | (missing) | (missing) | (missing) | | collection | | [facility] | | | | | (procedure) | | [facility] | | | | | | | [facility] Floor | | | | + + + + + + + + + | Result panel 129 | + + + + + + + + + | Specimen | (no date) | [facility] | (missing) | (missing) | (missing) | | collection | | [facility] | | | | | (procedure) | | [facility] | | | | | | | [facility] Floor | | | | + + + + + + + + + | Result panel 130 | + + + + + + + + + | Specimen | (no date) | [facility] | (missing) | (missing) | (missing) | | collection | | [facility] | | | | | (procedure) | | [facility] | | | | | | | [facility] Floor | | | | + + + + + + + + + | Result panel 131 | + + + + + + + + + | Specimen | (no date) | [facility] | (missing) | (missing) | (missing) | | collection | | [facility] | | | | | (procedure) | | [facility] | | | | | | | [facility] Floor | | | | + + + + + + + + + | Result panel 132 | + + + + + + + + + | Specimen | (no date) | [facility] | (missing) | (missing) | (missing) | | collection | | [facility] | | | | | (procedure) | | [facility] | | | | | | | [facility]th Floor | | | | + + + + + + + + + | Result panel 133 | + + + + + + + + + | Specimen | (no date) | [facility] | (missing) | (missing) | (missing) | | collection | | [facility] | | | | | (procedure) | | [facility] | | | | | | | [facility]th Floor | | | | + + + + + + + + + | Result panel 134 | + + + + + + + + + | Specimen | (no date) | [facility] | (missing) | (missing) | (missing) | | collection | | [facility] | | | | | (procedure) | | [facility] | | | | | | | [facility] Floor | | | | + + + + + + + + + | Result panel 135 | + + + + + + + + + | Specimen | (no date) | [facility] | (missing) | (missing) | (missing) | | collection | | [facility] | | | | | (procedure) | | [facility] | | | | | | | [facility] Floor | | | | + + + + + + + + + | Result panel 136 | + + + + + + + + + | Specimen | (no date) | [facility] | (missing) | (missing) | (missing) | | collection | | [facility] | | | | | (procedure) | | [facility] | | | | | | | [facility]th Floor | | | | + + + + + + + + + | Result panel 137 | + + + + + + + + + | Specimen | (no date) | [facility] | (missing) | (missing) | (missing) | | collection | | [facility] | | | | | (procedure) | | [facility] | | | | | | | [facility] Floor | | | | + + + + + + + + + | Result panel 138 | + + + + + + + + + | Specimen | (no date) | [facility] | (missing) | (missing) | (missing) | | collection | | [facility] | | | | | (procedure) | | [facility] | | | | | | | [facility] Floor | | | | + + + + + + + + + | Result panel 139 | + + + + + + + + + | Specimen | (no date) | [facility] | (missing) | (missing) | (missing) | | collection | | [facility] | | | | | (procedure) | | [facility] | | | | | | | [facility] Floor | | | | + + + + + + + + + | Result panel 140 | + + + + + + + + + | Specimen | (no date) | [facility] | (missing) | (missing) | (missing) | | collection | | [facility] | | | | | (procedure) | | [facility] | | | | | | | [facility] Floor | | | | + + + + + + + + + | Result panel 141 | + + + + + + + + + | Specimen | (no date) | [facility] | (missing) | (missing) | (missing) | | collection | | [facility] | | | | | (procedure) | | [facility] | | | | | | | [facility] Floor | | | | + + + + + + + + + | Result panel 142 | + + + + + + + + + | Specimen | (no date) | [facility] | (missing) | (missing) | (missing) | | collection | | [facility] | | | | | (procedure) | | [facility] | | | | | | | [facility] Floor | | | | + + + + + + + + + | Result panel 143 | + + + + + + + + + | Specimen | (no date) | [facility] | (missing) | (missing) | (missing) | | collection | | [facility] | | | | | (procedure) | | [facility] | | | | | | | [facility] Floor | | | | + + + + + + + + + | Result panel 144 | + + + + + + + + + | Specimen | (no date) | [facility] | (missing) | (missing) | (missing) | | collection | | [facility] | | | | | (procedure) | | [facility] | | | | | | | [facility] Floor | | | | + + + + + + + + + | Result panel 145 | + + + + + + + + + | Specimen | (no date) | [facility] | (missing) | (missing) | (missing) | | collection | | [facility] | | | | | (procedure) | | [facility] | | | | | | | [facility]th Floor | | | | + + + + + + + + + | Result panel 146 | + + + + + + + + + | Specimen | (no date) | [facility] | (missing) | (missing) | (missing) | | collection | | [facility] | | | | | (procedure) | | [facility] | | | | | | | [facility]th Floor | | | | + + + + + + + + + | Result panel 147 | + + + + + + + + + | Specimen | (no date) | [facility] | (missing) | (missing) | (missing) | | collection | | [facility] | | | | | (procedure) | | [facility] | | | | | | | [facility]th Floor | | | | + + + + + + + + + | Result panel 148 | + + + + + + + + + | Specimen | (no date) | [facility] | (missing) | (missing) | (missing) | | collection | | [facility] | | | | | (procedure) | | [facility] | | | | | | | [facility]th Floor | | | | + + + + + + + + + | Result panel 149 | + + + + + + + + + | Specimen | (no date) | [facility] | (missing) | (missing) | (missing) | | collection | | [facility] | | | | | (procedure) | | [facility] | | | | | | | [facility]th Floor | | | | + + + + + + + + + | Result panel 150 | + + + + + + + + + | Specimen | (no date) | [facility] | (missing) | (missing) | (missing) | | collection | | [facility] | | | | | (procedure) | | [facility] | | | | | | | [facility]th Floor | | | | + + + + + + + + + | Result panel 151 | + + + + + + + + + | Specimen | (no date) | [facility] | (missing) | (missing) | (missing) | | collection | | [facility] | | | | | (procedure) | | [facility] | | | | | | | [facility]th Floor | | | | + + + + + + + + + | Result panel 152 | + + + + + + + + + | Specimen | (no date) | [facility] | (missing) | (missing) | (missing) | | collection | | [facility] | | | | | (procedure) | | [facility] | | | | | | | [facility] Floor | | | | + + + + + + + + + | Result panel 153 | + + + + + + + + + | Specimen | (no date) | [facility] | (missing) | (missing) | (missing) | | collection | | [facility] | | | | | (procedure) | | [facility] | | | | | | | [facility]th Floor | | | | + + + + + + + + + | Result panel 154 | + + + + + + + + + | Specimen | (no date) | [facility] | (missing) | (missing) | (missing) | | collection | | [facility] | | | | | (procedure) | | [facility] | | | | | | | [facility] Floor | | | | + + + + + + + + + | Result panel 155 | + + + + + + + + + | Specimen | (no date) | [facility] | (missing) | (missing) | (missing) | | collection | | [facility] | | | | | (procedure) | | [facility] | | | | | | | [facility]th Floor | | | | + + + + + + + + + | Result panel 156 | + + + + + + + + + | Specimen | (no date) | [facility] | (missing) | (missing) | (missing) | | collection | | [facility] | | | | | (procedure) | | [facility] | | | | | | | [facility] Floor | | | | + + + + + + + + + | Result panel 157 | + + + + + + + + + | Specimen | (no date) | [facility] | (missing) | (missing) | (missing) | | collection | | [facility] | | | | | (procedure) | | [facility] | | | | | | | [facility] Floor | | | | + + + + + + + + + | Result panel 158 | + + + + + + + + + | Specimen | (no date) | [facility] | (missing) | (missing) | (missing) | | collection | | [facility] | | | | | (procedure) | | [facility] | | | | | | | [facility] Floor | | | | + + + + + + + + + | Result panel 159 | + + + + + + + + + | Specimen | (no date) | [facility] | (missing) | (missing) | (missing) | | collection | | [facility] | | | | | (procedure) | | [facility] | | | | | | | [facility] Floor | | | | + + + + + + + + + | Result panel 160 | + + + + + + + + + | Specimen | (no date) | [facility] | (missing) | (missing) | (missing) | | collection | | [facility] | | | | | (procedure) | | [facility] | | | | | | | [facility] Floor | | | | + + + + + + + + + | Result panel 161 | + + + + + + + + + | Specimen | (no date) | [facility] | (missing) | (missing) | (missing) | | collection | | [facility] | | | | | (procedure) | | [facility] | | | | | | | [facility] Floor | | | | + + + + + + + + + | Result panel 162 | + + + + + + + + + | Specimen | (no date) | [facility] | (missing) | (missing) | (missing) | | collection | | [facility] | | | | | (procedure) | | [facility] | | | | | | | [facility]th Floor | | | | + + + + + + + + + | Result panel 163 | + + + + + + + + + | Specimen | (no date) | [facility] | (missing) | (missing) | (missing) | | collection | | [facility] | | | | | (procedure) | | [facility] | | | | | | | [facility]th Floor | | | | + + + + + + + + + | Result panel 164 | + + + + + + + + + | Specimen | (no date) | [facility] | (missing) | (missing) | (missing) | | collection | | [facility] | | | | | (procedure) | | [facility] | | | | | | | [facility]th Floor | | | | + + + + + + + + + | Result panel 165 | + + + + + + + + + | Specimen | (no date) | [facility] | (missing) | (missing) | (missing) | | collection | | [facility] | | | | | (procedure) | | [facility] | | | | | | | [facility] Floor | | | | + + + + + + + + + | Result panel 166 | + + + + + + + + + | Specimen | (no date) | [facility] | (missing) | (missing) | (missing) | | collection | | [facility] | | | | | (procedure) | | [facility] | | | | | | | [facility]th Floor | | | | + + + + + + + + + | Result panel 167 | + + + + + + + + + | Specimen | (no date) | [facility] | (missing) | (missing) | (missing) | | collection | | [facility] | | | | | (procedure) | | [facility] | | | | | | | [facility] Floor | | | | + + + + + + + + + | Result panel 168 | + + + + + + + + + | Specimen | (no date) | [facility] | (missing) | (missing) | (missing) | | collection | | [facility] | | | | | (procedure) | | [facility] | | | | | | | [facility] Floor | | | | + + + + + + + + + | Result panel 169 | + + + + + + + + + | Specimen | (no date) | [facility] | (missing) | (missing) | (missing) | | collection | | [facility] | | | | | (procedure) | | [facility] | | | | | | | [facility]th Floor | | | | + + + + + + + + + | Result panel 170 | + + + + + + + + + | Specimen | (no date) | [facility] | (missing) | (missing) | (missing) | | collection | | [facility] | | | | | (procedure) | | [facility] | | | | | | | [facility] Floor | | | | + + + + + + + + + | Result panel 171 | + + + + + + + + + | Specimen | (no date) | [facility] | (missing) | (missing) | (missing) | | collection | | [facility] | | | | | (procedure) | | [facility] | | | | | | | [facility] Floor | | | | + + + + + + + + + | Result panel 172 | + + + + + + + + + | Specimen | (no date) | [facility] | (missing) | (missing) | (missing) | | collection | | [facility] | | | | | (procedure) | | [facility] | | | | | | | [facility] Floor | | | | + + + + + + + + + | Result panel 173 | + + + + + + + + + | Specimen | (no date) | [facility] | (missing) | (missing) | (missing) | | collection | | [facility] | | | | | (procedure) | | [facility] | | | | | | | [facility]th Floor | | | | + + + + + + + + + | Result panel 174 | + + + + + + + + + | Specimen | (no date) | [facility] | (missing) | (missing) | (missing) | | collection | | [facility] | | | | | (procedure) | | [facility] | | | | | | | [facility]th Floor | | | | + + + + + + + + + | Result panel 175 | + + + + + + + + + | Specimen | (no date) | [facility] | (missing) | (missing) | (missing) | | collection | | [facility] | | | | | (procedure) | | [facility] | | | | | | | [facility]th Floor | | | | + + + + + + + + + | Result panel 176 | + + + + + + + + + | Specimen | (no date) | [facility] | (missing) | (missing) | (missing) | | collection | | [facility] | | | | | (procedure) | | [facility] | | | | | | | [facility]th Floor | | | | + + + + + + + + + | Result panel 177 | + + + + + + + + + | Specimen | (no date) | [facility] | (missing) | (missing) | (missing) | | collection | | [facility] | | | | | (procedure) | | [facility] | | | | | | | [facility]th Floor | | | | + + + + + + + + + | Result panel 178 | + + + + + + + + + | Specimen | (no date) | [facility] | (missing) | (missing) | (missing) | | collection | | [facility] | | | | | (procedure) | | [facility] | | | | | | | [facility]th Floor | | | | + + + + + + + + + | Result panel 179 | + + + + + + + + + | Specimen | (no date) | [facility] | (missing) | (missing) | (missing) | | collection | | [facility] | | | | | (procedure) | | [facility] | | | | | | | [facility]th Floor | | | | + + + + + + + + + | Result panel 180 | + + + + + + + + + | Specimen | (no date) | [facility] | (missing) | (missing) | (missing) | | collection | | [facility] | | | | | (procedure) | | [facility] | | | | | | | [facility]th Floor | | | | + + + + + + + + + | Result panel 181 | + + + + + + + + + | Specimen | (no date) | [facility] | (missing) | (missing) | (missing) | | collection | | [facility] | | | | | (procedure) | | [facility] | | | | | | | [facility]th Floor | | | | + + + + + + + + + | Result panel 182 | + + + + + + + + + | Specimen | (no date) | [facility] | (missing) | (missing) | (missing) | | collection | | [facility] | | | | | (procedure) | | [facility] | | | | | | | [facility]th Floor | | | | + + + + + + + + + | Result panel 183 | + + + + + + + + + | Specimen | (no date) | [facility] | (missing) | (missing) | (missing) | | collection | | [facility] | | | | | (procedure) | | [facility] | | | | | | | [facility]th Floor | | | | + + + + + + + + + | Result panel 184 | + + + + + + + + + | Specimen | (no date) | [facility] | (missing) | (missing) | (missing) | | collection | | [facility] | | | | | (procedure) | | [facility] | | | | | | | [facility]th Floor | | | | + + + + + + + + + | Result panel 185 | + + + + + + + + + | Specimen | (no date) | [facility] | (missing) | (missing) | (missing) | | collection | | [facility] | | | | | (procedure) | | [facility] | | | | | | | [facility]th Floor | | | | + + + + + + + + + | Result panel 186 | + + + + + + + + + | Specimen | (no date) | [facility] | (missing) | (missing) | (missing) | | collection | | [facility] | | | | | (procedure) | | [facility] | | | | | | | [facility]th Floor | | | | + + + + + + + + + | Result panel 187 | + + + + + + + + + | Specimen | (no date) | [facility] | (missing) | (missing) | (missing) | | collection | | [facility] | | | | | (procedure) | | [facility] | | | | | | | [facility]th Floor | | | | + + + + + + + + + | Result panel 188 | + + + + + + + + + | Specimen | (no date) | [facility] | (missing) | (missing) | (missing) | | collection | | [facility] | | | | | (procedure) | | [facility] | | | | | | | [facility]th Floor | | | | + + + + + + + + + | Result panel 189 | + + + + + + + + + | Specimen | (no date) | [facility] | (missing) | (missing) | (missing) | | collection | | [facility] | | | | | (procedure) | | [facility] | | | | | | | [facility]th Floor | | | | + + + + + + + + + | Result panel 190 | + + + + + + + + + | Specimen | (no date) | [facility] | (missing) | (missing) | (missing) | | collection | | [facility] | | | | | (procedure) | | [facility] | | | | | | | [facility]th Floor | | | | + + + + + + + + + | Result panel 191 | + + + + + + + + + | Specimen | (no date) | [facility] | (missing) | (missing) | (missing) | | collection | | [facility] | | | | | (procedure) | | [facility] | | | | | | | [facility]th Floor | | | | + + + + + + + + + | Result panel 192 | + + + + + + + + + | Specimen | (no date) | [facility] | (missing) | (missing) | (missing) | | collection | | [facility] | | | | | (procedure) | | [facility] | | | | | | | [facility]th Floor | | | | + + + + + + + + + | Result panel 193 | + + + + + + + + + | Specimen | (no date) | [facility] | (missing) | (missing) | (missing) | | collection | | [facility] | | | | | (procedure) | | [facility] | | | | | | | [facility]th Floor | | | | + + + + + + + + + | Result panel 194 | + + + + + + + + + | Specimen | (no date) | [facility] | (missing) | (missing) | (missing) | | collection | | [facility] | | | | | (procedure) | | [facility] | | | | | | | [facility] Floor | | | | + + + + + + + + + | Result panel 195 | + + + + + + + + + | Specimen | (no date) | [facility] | (missing) | (missing) | (missing) | | collection | | [facility] | | | | | (procedure) | | [facility] | | | | | | | [facility] Floor | | | | + + + + + + + + + | Result panel 196 | + + + + + + + + + | Specimen | (no date) | [facility] | (missing) | (missing) | (missing) | | collection | | [facility] | | | | | (procedure) | | [facility] | | | | | | | [facility]th Floor | | | | + + + + + + + + + | Result panel 197 | + + + + + + + + + | Specimen | (no date) | [facility] | (missing) | (missing) | (missing) | | collection | | [facility] | | | | | (procedure) | | [facility] | | | | | | | [facility]th Floor | | | | + + + + + + + + + | Result panel 198 | + + + + + + + + + | Specimen | (no date) | [facility] | (missing) | (missing) | (missing) | | collection | | [facility] | | | | | (procedure) | | [facility] | | | | | | | [facility]th Floor | | | | + + + + + + + + + | Result panel 199 | + + + + + + + + + | Specimen | (no date) | [facility] | (missing) | (missing) | (missing) | | collection | | [facility] | | | | | (procedure) | | [facility] | | | | | | | [facility]th Floor | | | | + + + + + + + + + | Result panel 200 | + + + + + + + + + | Specimen | (no date) | [facility] | (missing) | (missing) | (missing) | | collection | | [facility] | | | | (procedure) | | [facility] | | | | | | | [facility]th Floor | | | | + + + + + + + + + | Result panel 201 | + + + + + + + + + | Specimen | (no date) | [facility] | (missing) | (missing) | (missing) | | collection | | [facility] | | | | (procedure) | | [facility] | | | | | | | [facility] Floor | | | | + + + + + + + + + | Result panel 202 | + + + + + + + + + | Specimen | (no date) | [facility] | (missing) | (missing) | (missing) | | collection | | [facility] | | | | (procedure) | | [facility] | | | | | | | [facility] Floor | | | | + + + + + + + + + | Result panel 203 | + + + + + + + + + | Specimen | (no date) | [facility] | (missing) | (missing) | (missing) | | collection | | [facility] | | | (procedure[facility] | | [facility] | | | | | | | [facility] Floor | | | | + + + + + + + + + | Result panel 204 | + + + + + + + + + | Specimen | (no date) | [facility] | (missing) | (missing) | (missing) | | collection | | [facility] | | | | (procedure) | | [facility] | | | | | | | [facility] Floor | | | | + + + + + + + + + | Result panel 205 | + + + + + + + + + | Specimen | (no date) | [facility] | (missing) | (missing) | (missing) | | collection | | [facility] | | | | (procedure) | | [facility] | | | | | | | [facility] Floor | | | | + + + + + + + + + | Result panel 206 | + + + + + + + + + | Specimen | (no date) | [facility] | (missing) | (missing) | (missing) | | collection | | [facility] | | | | (procedure) | | [facility] | | | | | | | [facility] Floor | | | | + + + + + + + + + | Result panel 207 | + + + + + + + + + | Specimen | (no date) | [facility] | (missing) | (missing) | (missing) | | collection | | [facility] | | | | (procedure) | | [facility] | | | | | | | [facility] Floor | | | | + + + + + + + + + | Result panel 208 | + + + + + + + + + | Specimen | (no date) | [facility] | (missing) | (missing) | (missing) | | collection | | [facility] | | | | (procedure) | | [facility] | | | | | | | [facility] Floor | | | | + + + + + + + + + | Result panel 209 | + + + + + + + + + | Specimen | (no date) | [facility] | (missing) | (missing) | (missing) | | collection | | [facility] | | | | (procedure) | | [facility] | | | | | | | [facility] Floor | | | | + + + + + + + + + | Result panel 210 | + + + + + + + + + | Specimen | (no date) | [facility] | (missing) | (missing) | (missing) | | collection | | [facility] | | | | (procedure) | | [facility] | | | | | | | [facility] | | | | + + + + + + + + + | Result panel 211 | + + + + + + + + + | Specimen | (no date) | [facility] | (missing) | (missing) | (missing) | | collection | | [facility] ([facility] | [facility] | | | | + + + + + + + + + | Result panel 212 | + + + + + + + + + | Specimen | (no date) | [facility] | (missing) | (missing) | (missing) | | collection | | [facility] | | | | | (procedure) | | [facility] | | | | | | | [facility] | | | | + + + + + + + + + | Result panel 213 | + + + + + + + + + | Specimen | (no date) | [facility] | (missing) | (missing) | (missing) | | collection | | [facility] | | | | | (procedure) | | [facility] | | | | | | | [facility] | | | | + + + + + + + + + | Result panel 214 | + + + + + + + + + | Specimen | (no date) | [facility] | (missing) | (missing) | (missing) | | collection | | [facility] | | | | | (procedure) | | [facility] | | | | | | | [facility]ties | | | | + + + + + + + + + | Result panel 215 | + + + + + + + + + | Specimen | (no date) | [facility] | (missing) | (missing) | (missing) | | collection | | [facility] | | | | | (procedure) | | [facility] | | | | | | | [facility] | | | | + + + + + + + + + | Result panel 216 | + + + + + + + + + | Specimen | (no date) | [facility] | (missing) | (missing) | (missing) | | collection | | [facility] | | | | | (procedure) | | [facility] | | | | | | | [facility]ties | | | | + + + + + + + + + | Result panel 217 | + + + + + + + + + | Specimen | (no date) | [facility] | (missing) | (missing) | (missing) | | collection | | [facility] | | | | | (procedure) | | [facility] | | | | | | | [facility]ties | | | | + + + + + + + + + | Result panel 218 | + + + + + + + + + | Specimen | (no date) | [facility] | (missing) | (missing) | (missing) | | collection | | [facility] | | | | | (procedure) | | [facility] | | | | | | | [facility]ties | | | | + + + + + + + + + | Result panel 219 | + + + + + + + + + | Specimen | (no date) | [facility] | (missing) | (missing) | (missing) | | collection | | [facility] | | | | | (procedure) | | [facility] | | | | | | | [facility] | | | | + + + + + + + + + | Result panel 220 | + + + + + + + + + | Specimen | (no date) | [facility] | (missing) | (missing) | (missing) | | collection | | [facility] | | | | | (procedure) | | [facility] | | | | | | | [facility]ties | | | | + + + + + + + + + | Result panel 221 | + + + + + + + + + | Specimen | (no date) | [facility] | (missing) | (missing) | (missing) | | collection | | [facility] | | | | | (procedure) | | [facility] | | | | | | | [facility]ties | | | | + + + + + + + + + | Result panel 222 | + + + + + + + + + | Specimen | (no date) | [facility] | (missing) | (missing) | (missing) | | collection | | [facility] | | | | | (procedure) | | [facility] | | | | | | | [facility]ties | | | | + + + + + + + + + | Result panel 223 | + + + + + + + + + | Specimen | (no date) | [facility] | (missing) | (missing) | (missing) | | collection | | [facility] | | | | | (procedure) | | [facility] | | | | | | | [facility]ties | | | | + + + + + + + + + | Result panel 224 | + + + + + + + + + | Specimen | (no date) | [facility] | (missing) | (missing) | (missing) | | collection | | [facility] | | | | | (procedure) | | [facility] | | | | | | | [facility]ties | | | | + + + + + + + + + | Result panel 225 | + + + + + + + + + | Specimen | (no date) | [facility] | (missing) | (missing) | (missing) | | collection | | [facility] | | | | | (procedure) | | [facility] | | | | | | | [facility]ties | | | | + + + + + + + + + | Result panel 226 | + + + + + + + + + | Specimen | (no date) | [facility] | (missing) | (missing) | (missing) | | collection | | [facility] | | | | | (procedure) | | [facility] | | | | | | | [facility] | | | | + + + + + + + + + | Result panel 227 | + + + + + + + + + | Specimen | (no date) | [facility] | (missing) | (missing) | (missing) | | collection | | [facility] | | | | | (procedure) | | [facility] | | | | | | | [facility] | | | | + + + + + + + + + | Result panel 228 | + + + + + + + + + | Specimen | (no date) | [facility] | (missing) | (missing) | (missing) | | collection | | [facility] | | | | | (procedure) | | [facility] | | | | | | | [facility]ties | | | | + + + + + + + + + | Result panel 229 | + + + + + + + + + | Specimen | (no date) | [facility] | (missing) | (missing) | (missing) | | collection | | [facility] | | | | | (procedure) | | [facility] | | | | | | | [facility] | | | | + + + + + + + + + | Result panel 230 | + + + + + + + + + | Specimen | (no date) | [facility] | (missing) | (missing) | (missing) | | collection | | [facility] | | | | | (procedure) | | [facility] | | | | | | | [facility] | | | | + + + + + + + + + | Result panel 231 | + + + + + + + + + | Specimen | (no date) | [facility] | (missing) | (missing) | (missing) | | collection | | [facility] | | | | | (procedure) | | [facility] | | | | | | | [facility] | | | | + + + + + + + + + | Result panel 232 | + + + + + + + + + | Specimen | (no date) | [facility] | (missing) | (missing) | (missing) | | collection | | [facility] | | | | | (procedure) | | [facility] | | | | | | | [facility] | | | | + + + + + + + + + | Result panel 233 | + + + + + + + + + | Specimen | (no date) | [facility] | (missing) | (missing) | (missing) | | collection | | [facility] | | | | | (procedure) | | [facility] | | | | | | | [facility] | | | | + + + + + + + + + | Result panel 234 | + + + + + + + + + | Specimen | (no date) | [facility] | (missing) | (missing) | (missing) | | collection | | [facility] | | | | | (procedure) | | [facility] | | | | | | | [facility] | | | | + + + + + + + + + | Result panel 235 | + + + + + + + + + | Specimen | (no date) | [facility] | (missing) | (missing) | (missing) | | collection | | [facility] | | | | | (procedure) | | [facility] | | | | | | | [facility] | | | | + + + + + + + + + | Result panel 236 | + + + + + + + + + | Specimen | (no date) | [facility] | (missing) | (missing) | (missing) | | collection | | [facility] | | | | | (procedure) | | [facility] | | | | | | | [facility] | | | | + + + + + + + + + | Result panel 237 | + + + + + + + + + | Specimen | (no date) | [facility] | (missing) | (missing) | (missing) | | collection | | [facility] | | | | | (procedure) | | [facility] | | | | | | | [facility] | | | | + + + + + + + + + | Result panel 238 | + + + + + + + + + | Specimen | (no date) | [facility] | (missing) | (missing) | (missing) | | collection | | [facility] | | | | | (procedure) | | [facility] | | | | | | | [facility] | | | | + + + + + + + + + | Result panel 239 | + + + + + + + + + | Specimen | (no date) | [facility] | (missing) | (missing) | (missing) | | collection | | [facility] | | | | | (procedure) | | [facility] | | | | | | | [facility] | | | | + + + + + + + + + | Result panel 240 | + + + + + + + + + | Specimen | (no date) | [facility] | (missing) | (missing) | (missing) | | collection | | [facility] | | | | | (procedure) | | [facility] | | | | | | | [facility] | | | | + + + + + + + + + | Result panel 241 | + + + + + + + + + | Specimen | (no date) | [facility] | (missing) | (missing) | (missing) | | collection | | [facility] | | | | | (procedure) | | [facility] | | | | | | | [facility] | | | | + + + + + + + + + | Result panel 242 | + + + + + + + + + | Specimen | (no date) | [facility] | (missing) | (missing) | (missing) | | collection | | [facility] | | | | | (procedure) | | [facility] | | | | | | | [facility]ties | | | | + + + + + + + + + | Result panel 243 | + + + + + + + + + | Specimen | (no date) | [facility] | (missing) | (missing) | (missing) | | collection | | [facility] | | | | | (procedure) | | [facility] | | | | | | | [facility]ties | | | | + + + + + + + + + | Result panel 244 | + + + + + + + + + | Specimen | (no date) | [facility] | (missing) | (missing) | (missing) | | collection | | [facility] | | | | | (procedure) | | [facility] | | | | | | | [facility]ties | | | | + + + + + + + + + | Result panel 245 | + + + + + + + + + | Specimen | (no date) | [facility] | (missing) | (missing) | (missing) | | collection | | [facility] | | | | | (procedure) | | [facility] | | | | | | | [facility]ties | | | | + + + + + + + + + | Result panel 246 | + + + + + + + + + | Specimen | (no date) | [facility] | (missing) | (missing) | (missing) | | collection | | [facility] | | | | | (procedure) | | [facility] | | | | | | | [facility]ties | | | | + + + + + + + + + | Result panel 247 | + + + + + + + + + | Specimen | (no date) | [facility] | (missing) | (missing) | (missing) | | collection | | [facility] | | | | | (procedure) | | [facility] | | | | | | | [facility]ties | | | | + + + + + + + + + | Result panel 248 | + + + + + + + + + | Specimen | (no date) | [facility] | (missing) | (missing) | (missing) | | collection | | [facility] | | | | | (procedure) | | [facility] | | | | | | | [facility] | | | | + + + + + + + + + | Result panel 249 | + + + + + + + + + | Specimen | (no date) | [facility] | (missing) | (missing) | (missing) | | collection | | [facility] | | | | | (procedure) | | [facility] | | | | | | | [facility] | | | | + + + + + + + + + | Result panel 250 | + + + + + + + + + | Specimen | (no date) | [facility] | (missing) | (missing) | (missing) | | collection | | [facility] | | | | | (procedure) | | [facility] | | | | | | | [facility] | | | | + + + + + + + + + | Result panel 251 | + + + + + + + + + | Specimen | (no date) | [facility] | (missing) | (missing) | (missing) | | collection | | [facility] | | | | | (procedure) | | [facility] | | | | | | | [facility]ties | | | | + + + + + + + + + | Result panel 252 | + + + + + + + + + | Specimen | (no date) | [facility] | (missing) | (missing) | (missing) | | collection | | [facility] | | | | | (procedure) | | [facility] | | | | | | | [facility]ties | | | | + + + + + + + + + | Result panel 253 | + + + + + + + + + | Specimen | (no date) | [facility] | (missing) | (missing) | (missing) | | collection | | [facility] | | | | | (procedure) | | [facility] | | | | | | | [facility]ties | | | | + + + + + + + + + | Result panel 254 | + + + + + + + + + | Specimen | (no date) | [facility] | (missing) | (missing) | (missing) | | collection | | [facility] | | | | | (procedure) | | [facility] | | | | | | | [facility]ties | | | | + + + + + + + + + | Result panel 255 | + + + + + + + + + | Specimen | (no date) | [facility] | (missing) | (missing) | (missing) | | collection | | [facility] | | | | | (procedure) | | [facility] | | | | | | | [facility]ties | | | | + + + + + + + + + | Result panel 256 | + + + + + + + + + | Specimen | (no date) | [facility] | (missing) | (missing) | (missing) | | collection | | [facility] | | | | | (procedure) | | [facility] | | | | | | | [facility]ties | | | | + + + + + + + + + | Result panel 257 | + + + + + + + + + | Specimen | (no date) | [facility] | (missing) | (missing) | (missing) | | collection | | [facility] | | | | | (procedure) | | [facility] | | | | | | | [facility]ties | | | | + + + + + + + + + | Result panel 258 | + + + + + + + + + | Specimen | (no date) | [facility] | (missing) | (missing) | (missing) | | collection | | [facility] | | | | | (procedure) | | [facility] | | | | | | | [facility]ties | | | | + + + + + + + + + | Result panel 259 | + + + + + + + + + | Specimen | (no date) | [facility] | (missing) | (missing) | (missing) | | collection | | [facility] | | | | | (procedure) | | [facility] | | | | | | | [facility]ties | | | | + + + + + + + + + | Result panel 260 | + + + + + + + + + | Specimen | (no date) | [facility] | (missing) | (missing) | (missing) | | collection | | [facility] | | | | | (procedure) | | [facility] | | | | | | | [facility]ties | | | | + + + + + + + + + | Result panel 261 | + + + + + + + + + | Specimen | (no date) | [facility] | (missing) | (missing) | (missing) | | collection | | [facility] | | | | | (procedure) | | [facility] | | | | | | | [facility]ties | | | | + + + + + + + + + | Result panel 262 | + + + + + + + + + | Specimen | (no date) | [facility] | (missing) | (missing) | (missing) | | collection | | [facility] | | | | | (procedure) | | [facility] | | | | | | | Specialties | | | | + + + + + + + + + | Result panel 263 | + + + + + + + + + | Specimen | (no date) | [facility] | (missing) | (missing) | (missing) | | collection | | [facility] | | | | | (procedure) | | [facility] | | | | | | | Specialties | | | | + + + + + + + + + | Result panel 264 | + + + + + + + + + | Specimen | (no date) | [facility] | (missing) | (missing) | (missing) | | collection | | [facility] | | | | | (procedure) | | [facility] | | | | | | | Specialties | | | | + + + + + + + + + | Result panel 265 | + + + + + + + + + | Specimen | (no date) | [facility] | (missing) | (missing) | (missing) | | collection | | [facility] | | | | | (procedure) | | [facility] | | | | | | | Department | | | | + + + + + + + + + | Result panel 266 | + + + + + + + + + | Specimen | (no date) | [facility] | (missing) | (missing) | (missing) | | collection | | [facility] | | | | | (procedure) | | Emergency | | | | | | | Department | | | | + + + + + + + + + | Result panel 267 | + + + + + + + + + | Specimen | (no date) | [facility] | (missing) | (missing) | (missing) | | collection | | [facility] | | | | | (procedure) | | Emergency | | | | | | | Department | | | | + + + + + + + + + | Result panel 268 | + + + + + + + + + | Specimen | (no date) | [facility] | (missing) | (missing) | (missing) | | collection | | [facility] | | | | | (procedure) | | Emergency | | | | | | | Department | | | | + + + + + + + + + | Result panel 269 | + + + + + + + + + | | (no date) | [facility] | COMPATIBLE | (missing) | (missing) | | (unavailable | | [facility] | | | | + + + + + + + + + | Result panel 270 | + + + + + + + + + | | (no date) | [facility] | COMPATIBLE | (missing) | (missing) | | (unavailable | | [facility] | | | | + + + + + + + + + | Result panel 271 | + + + + + + + + + | | (no date) | [facility] | COMPATIBLE | (missing) | (missing) | | (unavailable | | [facility] | | | | + + + + + + + + + | Result panel 272 | + + + + + + + + + | | (no date) | [facility] | COMPATIBLE | (missing) | (missing) | | (unavailable | | [facility] | | | | + + + + + + + + + | Result panel 273 | + + + + + + + + + | | (no date) | [facility] | COMPATIBLE | (missing) | (missing) | | (unavailable | | [facility] | | | | + + + + + + + + + | Result panel 274 | + + + + + + + + + | | (no date) | [facility] | COMPATIBLE | (missing) | (missing) | | (unavailable | | [facility] | | | | + + + + + + + + + | Result panel 275 | + + + + + + + + + | | (no date) | [facility] | COMPATIBLE | (missing) | (missing) | | (unavailable | | [facility] | | | | + + + + + + + + + | Result panel 276 | + + + + + + + + + | | (no date) | [facility] | COMPATIBLE | (missing) | (missing) | | (unavailable | | [facility] | | | | + + + + + + + + + | Result panel 277 | + + + + + + + + + | | (no date) | [facility] | COMPATIBLE | (missing) | (missing) | | (unavailable | | [facility] | | | | + + + + + + + + + | Result panel 278 | + + + + + + + + + | | (no date) | [facility] | COMPATIBLE | (missing) | (missing) | | (unavailable | | [facility] | | | | + + + + + + + + + | Result panel 279 | + + + + + + + + + | | (no date) | [facility] | COMPATIBLE | (missing) | (missing) | | (unavailable | | [facility] | | | | + + + + + + + + + | Result panel 280 | + + + + + + + + + | | (no date) | [facility] | COMPATIBLE | (missing) | (missing) | | (unavailable | | [facility] | | | | + + + + + + + + + | Result panel 281 | + + + + + + + + + | | (no date) | [facility] | IN LAB | (missing) | (missing) | | (unavailable | | [facility] | | | | + + + + + + + + + | Result panel 282 | + + + + + + + + + | | (no date) | [facility] | COMPATIBLE | (missing) | (missing) | | (unavailable | | [facility] | | | | + + + + + + + + + | Result panel 283 | + + + + + + + + + | | (no date) | [facility] | COMPATIBLE | (missing) | (missing) | | (unavailable | | [facility] | | | | + + + + + + + + + | Result panel 284 | + + + + + + + + + | | (no date) | [facility] | COMPATIBLE | (missing) | (missing) | | (unavailable | | [facility] | | | | + + + + + + + + + | Result panel 285 | + + + + + + + + + | | (no date) | [facility] | COMPATIBLE | (missing) | (missing) | | (unavailable | | [facility] | | | | + + + + + + + + + | Result panel 286 | + + + + + + + + + | | (no date) | [facility] | COMPATIBLE | (missing) | (missing) | | (unavailable | | [facility] | | | | + + + + + + + + + | Result panel 287 | + + + + + + + + + | | (no date) | [facility] | COMPATIBLE | (missing) | (missing) | | (unavailable | | [facility] | | | | + + + + + + + + + | Result panel 288 | + + + + + + + + + | | (no date) | [facility] | COMPATIBLE | (missing) | (missing) | | (unavailable | [facility] | | | | + + + + + + + + + | Result panel 289 | + + + + + + + + + | | (no date) | [facility] | COMPATIBLE | (missing) | (missing) | | (unavailable | [facility] | | | | + + + + + + + + + | Result panel 290 | + + + + + + + + + | | (no date) | [facility] | COMPATIBLE | (missing) | (missing) | | (unavailable | [facility] | | | | + + + + + + + + + | Result panel 291 | + + + + + + + + + | | (no date) | [facility] | COMPATIBLE | (missing) | (missing) | | (unavailable | [facility] | | | | + + + + + + + + + | Result panel 292 | + + + + + + + + + | | (no date) | [facility] | COMPATIBLE | (missing) | (missing) | | (unavailable | [facility] | | | | + + + + + + + + + | Result panel 293 | + + + + + + + + + | | (no date) | [facility] | COMPATIBLE | (missing) | (missing) | | (unavailable | [facility] | | | | + + + + + + + + + | Result panel 294 | + + + + + +--------+ + + | | 2021-05-18 | [facility] | <0.3 | (missing) | (missing) | | (unavailable | 23:00 | [facility] | | | | + + + +--------+ + + + + | Result panel 295 | + + + + + +-------+ + + | | 2021-07-16 | [facility] | 148 | (missing) | (missing) | | (unavailable | 15:25 | [facility] | | | | + + + +-------+ + + + + | Result panel 296 | + + + + + +-------+ + + | | 2021-07-16 | [facility] | 148 | (missing) | (missing) | | (unavailable | 15:25 | [facility] | | | | + + + +-------+ + + + + | Result panel 297 | + + + + + +-------+ + + | | 2021-07-16 | [facility] | 148 | (missing) | (missing) | | (unavailable | 15:25 | [facility] | | | | + + + +-------+ + + + + | Result panel 298 | + + + + + + + + + | Color, | 2021-07-16 | [facility] | Yellow | (missing) | (missing) | | Urine POC | 22:21 [facility] | | | | + + + + + + + + + | Result panel 299 | + + + + + +---------+ + + | Appearance, | 2021-07-16 | [facility] | Clear | (missing) | (missing) | | Urine POC | 22:21 [facility] | | | | + + + +---------+ + + + + | Result panel 300 | + + + + + +---------+ + + | Specific | 2021-07-16 | [facility] | 1.010 | (missing) | (missing) | | [place], | 22:21 | [facility] | | | Urine POC | | [facility] | | | | + + + +---------+ + + + + | Result panel 301 | + + + + + +-----+ + + | PH, Urine | 2021-07-16 | [facility] | 5 | (missing) | (missing) | | POC | 22:21 | [facility] | | | | + + + +-----+ + + + + | Result panel 302 | + + + + + +------+ + + | Glucose, | 2021-07-16 | [facility] | 3+ | (missing) | (missing) | | Urine POC | 22:21 [facility] | | | | + + + +------+ + + + + | Result panel 303 | + + + + + + + + + | Bilirubin, | 2021-07-16 | [facility] | NEGATIVE | (missing) | (missing) | | Urine POC | 22:21 [facility] | | | | + + + + + + + + + | Result panel 304 | + + + + + + + + + | Ketone, | 2021-07-16 | [facility] | NEGATIVE | (missing) | (missing) | | Urine POC | 22:21 | [facility] | | | | + + + + + + + + + | Result panel 305 | + + + + + + + + + | Occult | 2021-07-16 | [facility] | NEGATIVE | (missing) | (missing) | | Blood, Urine | 22:21 | [facility] | | | | [facility]OC | | [facility] | | | | + + + + + + + + + | Result panel 306 | + + + + + +------+ + + | Protein, | 2021-07-16 | [facility] | 1+ | (missing) | (missing) | | Urine POC | 22:21 [facility] | | | | + + + +------+ + + + + | Result panel 307 | + + + + + +-------+ + + | | 2021-07-16 | [facility] | 0.2 | (missing) | (missing) | | Urobilinogen | 22:21 | [facility] | | | | , Urine POC | | Center | | | | + + + +-------+ + + + + | Result panel 308 | + + + + + + + + + | Nitrite, | 2021-07-16 | [facility] | NEGATIVE | (missing) | (missing) | | Urine POC | 22:21 [facility] | | | | + + + + + + + + + | Result panel 309 | + + + + + + + + + | Leukocyte | 2021-07-16 | [facility] | NEGATIVE | (missing) | (missing) | | Esterase, | 22:21 | [facility] | [facility] | | [facility] | | | | + + + + + + + + + | Result panel 310 | + + + + + + + + + | | 2021-07-16 | [facility] | Abnormal | (missing) | (missing) | | (unavailable | 22:21 | [facility] | | | | + + + + + + + + + | Result panel 311 | + + + + + +---------+---------+ + | | 2021-07-18 | [facility] | 12.76 | mg/dL | (missing) | | (unavailable | 13:20 [facility] | | | | + + + +---------+---------+ + + + | Result panel 312 | + + + + + +---------+ + + | | 2021-07-18 | [facility] | 2.037 | (missing) | (missing) | | (unavailable | 13:20 | [facility] | | | | + + + +---------+ + + + + | Result panel 313 | + + + + + +------+---------+ + | | 2021-07-18 | [facility] | 26 | mg/dL | (missing) | | (unavailable | 13:20 [facility] | | | | + + + +------+---------+ + + + | Result panel 314 | + + + + + +---------+---------+ + | | 2021-07-18 | [facility] | 12.76 | mg/dL | (missing) | | (unavailable | 13:20 [facility] | | | | + + + +---------+---------+ + + + | Result panel 315 | + + + + + +---------+ + + | | 2021-07-18 | [facility] | 2.037 | (missing) | (missing) | | (unavailable | 13:20 | [facility] | | | | + + + +---------+ + + + + | Result panel 316 | + + + + + +------+---------+ + | | 2021-07-18 | [facility] | 26 | mg/dL | (missing) | | (unavailable | 13:20 | [facility] | | | | + + + +------+---------+ + + + | Result panel 317 | + + + + + +---------+---------+ + | | 2021-07-18 | [facility] | 12.76 | mg/dL | (missing) | | (unavailable | 13:20 | [facility] | | | | + + + +---------+---------+ + + + | Result panel 318 | + + + + + +---------+ + + | | 2021-07-18 | [facility] | 2.037 | (missing) | (missing) | | (unavailable | 13:20 | [facility] | | | | + + + +---------+ + + + + | Result panel 319 | + + + + + +------+---------+ + | | 2021-07-18 | [facility] | 26 | mg/dL | (missing) | | (unavailable | 13:20 [facility] | | | | + + + +------+---------+ + + + | Result panel 320 | + + + + + +--------+---------+ + | | 2021-07-18 | [facility] | 10.5 | mg/dL | (missing) | | (unavailable | 14:05 | [facility] | | | | + + + +--------+---------+ + + + | Result panel 321 | + + + + + +--------+---------+ + | | 2021-07-18 | [facility] | 10.5 | mg/dL | (missing) | | (unavailable | 14:05 | [facility] | | | | + + + +--------+---------+ + + + | Result panel 322 | + + + + + +--------+---------+ + | | 2021-07-18 | [facility] | 10.5 | mg/dL | (missing) | | (unavailable | 14:05 | [facility] | | | | + + + +--------+---------+ + + + | Result panel 323 | + + + + + +-------+ + + | | 2021-07-19 | [facility] | 418 | (missing) | (missing) | | (unavailable | 09:24:33 [facility] | | | | | | | [facility]th Floor | | | | + + + +-------+ + + + + | Result panel 324 | + + + + + + + + + | | 2021-07-19 | [facility] | Abnormal | (missing) | (missing) | | (unavailable | 09:24:33 | [facility] | | | | | | | [facility]th Floor | | | | + + + + + + + + + | Result panel 325 | + + + + + + + + + | UA Color | 2021-07-19 | [facility] | Yellow | (missing) | (missing) | | | 09:30:13 | [facility] | | | | | | | [facility]th Floor | | | | + + + + + + + + + | Result panel 326 | + + + + + +---------+ + + | UA | 2021-07-19 | [facility] | Clear | (missing) | (missing) | | Turbidity | 09:30:13 | [facility] | | | | | | | 7th Floor | | | | + + + +---------+ + + + + | Result panel 327 | + + + + + +------+ + + | UA Glucose | 2021-07-19 | [facility] | 3+ | (missing) | (missing) | | | 09:30:13 | [facility] | [facility] | | | | | | | 7th Floor | | | | + + + +------+ + + + + | Result panel 328 | + + + + + + + + + | UA | 2021-07-19 | [facility] | Negative | (missing) | (missing) | | Bilirubin | 09:30:13 | [facility] | | | | | | | 7th Floor | | | | + + + + + + + + + | Result panel 329 | + + + + + + + + + | UA Ketones | 2021-07-19 | [facility] | Negative | (missing) | (missing) | | | 09:30:13 | [facility] | | | | | | | 7th Floor | | | | + + + + + + + + + | Result panel 330 | + + + + + +--------+ + + | UA Specific | 2021-07-19 | [facility] | 1.02 | (missing) | (missing) | | [place] | 09:30:13 | [facility] | [facility] | | | | | | | 7th Floor | | | | + + + +--------+ + + + + | Result panel 331 | + + + + + +------+ + + | UA Blood | 2021-07-19 | [facility] | 3+ | (missing) | (missing) | | | 09:30:13 | [facility] | | | | | | | 7th Floor | | | | + + + +------+ + + + + | Result panel 332 | + + +---------+ + +-------+ + + | UA pH | 2021-07-19 | [facility] | 5.5 | (missing) | (missing) | | | 09:30:13 | [facility] | | [facility] | | | | | | | 7th Floor | | | | +---------+ + +-------+ + + + + | Result panel 333 | + + + + + + + + + | UA Albumin | 2021-07-19 | [facility] | Negative | (missing) | (missing) | | | 09:30:13 | [facility] | | [facility] | | | | | | | 7th Floor | | | | + + + + + + + + + | Result panel 334 | + + + + + + + + + | UA | 2021-07-19 | [facility] | Negative | (missing) | (missing) | | Leukocyte | 09:30:13 | [facility] | | | | Esterase | | [facility] | | | | | | | 7th Floor | | | | + + + + + + + + + | Result panel 335 | + + + + + + + + + | UA Nitrite | 2021-07-19 | [facility] | Negative | (missing) | (missing) | | | 09:30:13 | [facility] | [facility] | | [facility] | | | | | | | 7th Floor | | | | + + + + + + + + + | Result panel 336 | + + + + + +-------+ + + | UA WBC/hpf | 2021-07-19 | [facility] | 2-5 | (missing) | (missing) | | | 09:30:13 | [facility] | | [facility] | | | | | | | 7th Floor | | | | + + + +-------+ + + + + | Result panel 337 | + + + + + +--------+ + + | UA RBC/HPF | 2021-07-19 | [facility] | >100 | (missing) | (missing) | | | 09:30:13 | [facility] | | [facility] | | | | | | | 7th Floor | | | | + + + +--------+ + + + + | Result panel 338 | + + + + + +--------+ + + | UA | 2021-07-19 | [facility] | Rare | (missing) | (missing) | | Epithelial | 09:30:13 | [facility] | | | | Cell | | [facility] | | | | | | | 7th Floor | | | | + + + +--------+ + + + + | Result panel 339 | + + + + + +------+ + + | UA Cult | 2021-07-19 | [facility] | No | (missing) | (missing) | | Reflex? | 09:30:13 | [facility] | | | | [facility] | | | | | | | 7th Floor | | | | + + + +------+ + + + + | Result panel 340 | + + + + + + + + + | | 2021-07-19 | [facility] | Abnormal | (missing) | (missing) | | (unavailable | 09:30:13 | [facility] ) | | [facility] | | | | | | | 7th Floor | | | | + + + + + + + + + | Result panel 341 | + + + + + +------+ + + | | 2021-07-19 | [facility] | 92 | mmol/L | (missing) | | (unavailable | 09:31:34 | [facility] | [facility] ) | | [facility] | | | | | | | 7th Floor | | | | + + + +------+ + + + + | Result panel 342 | + + + + + +------+---------+ + | | 2021-07-19 | [facility] | 17 | mg/dL | (missing) | | (unavailable | 09:31:35 | [facility] | | | ) | | [facility] | | | | | | | 7th Floor | | | | + + + +------+---------+ + + + | Result panel 343 | + + + + + +------+---------+ + | | 2021-07-19 | [facility] | 16 | mg/dL | (missing) | | (unavailable | 09:31:35 | [facility] ) | | [facility] | | | | | | | 7th Floor | | | | + + + +------+---------+ + + + | Result panel 344 | + + + + + +---------+ + + | | 2021-07-19 | [facility] | 1.062 | (missing) | (missing) | | (unavailable | 09:31:35 | [facility] | | [facility] ) | | [facility] | | | | | | | 7th Floor | | | | + + + +---------+ + + + + | Result panel 345 | + + + + + + + + + | | 2021-07-19 | [facility] | Abnormal | (missing) | (missing) | | (unavailable | 09:31:35 | [facility] ) | | [facility] | | | | | | | 7th Floor | | | | + + + + + + + + + | Result panel 346 | + + + + + +-------+---------+ + | | 2021-07-19 | [facility] | 235 | mg/dL | (missing) | | (unavailable | 09:45:16 | [facility] | [facility] ) | | [facility] | | | | | | | 7th Floor | | | | + + + +-------+---------+ + + + | Result panel 347 | + + + + + + + + + | | 2021-07-19 | [facility] | Abnormal | (missing) | (missing) | | (unavailable | 09:45:16 | [facility] ) | | [facility] | | | | | | | 7th Floor | | | | + + + + + + + + + | Result panel 348 | + + + + + +-------+---------+ + | | 2021-07-19 | [facility] | 235 | mg/dL | (missing) | | (unavailable | 11:25:26 | [facility] ) | | [facility] | | | | | | | 7th Floor | | | | + + + +-------+---------+ + + + | Result panel 349 | + + + + + + + + + | | 2021-07-19 | [facility] | Abnormal | (missing) | (missing) | | (unavailable | 11:25:26 | [facility] ) | | [facility] | | | | | | | 7th Floor | | | | + + + + + + + + + | Result panel 350 | + + + + + + + + + | Spec | 2021-07-19 | [facility] | Hemolyzed | (missing) | (missing) | | Rejection | 11::27 | [facility] | | | | | Reason | | [facility] | | | | | | | 7th Floor | | | | + + + + + + + + + | Result panel 351 | + + + + + + + + + | Action | 2021-07-19 | [facility] | Recollect | (missing) | (missing) | | Required | 11:25:27 | [facility] | | | [facility] | | | | | | | 7th Floor | | | | + + + + + + + + + | Result panel 352 | + + + + + + + + + | | 2021-07-19 | [facility] | Abnormal | (missing) | (missing) | | (unavailable | 11:25:27 | [facility] | | [facility] | | | | | | | 7th Floor | | | | + + + + + + + + + | Result panel 353 | + + + + + +---------+ + + | | 2021-07-19 | [facility] | 11.07 | (missing) | (missing) | | (unavailable | 11:35:27 | [facility] | [facility] | | | | | | | 7th Floor | | | | + + + +---------+ + + + + | Result panel 354 | + + + + + +--------+ + + | | 2021-07-19 | [facility] | 4.54 | (missing) | (missing) | | (unavailable | 11:35:27 | [facility] | | [facility] | | | | | | | [facility]th Floor | | | | + + + +--------+ + + + + | Result panel 355 | + + + + + +--------+ + + | | 2021-07-19 | [facility] | 13.3 | (missing) | (missing) | | (unavailable | 11:35:27 | [facility] | | [facility] | | | | | | | [facility]th Floor | | | | + + + +--------+ + + + + | Result panel 356 | + + + + + +--------+-----+ + | | 2021-07-19 | [facility] | 38.7 | % | (missing) | | (unavailable | 11:35:27 | [facility] | [facility] | | | | | | | [facility]th Floor | | | | + + + +--------+-----+ + + + | Result panel 357 | + + + + + +--------+------+ + | | 2021-07-19 | [facility] | 85.2 | fL | (missing) | | (unavailable | 11:35:27 | [facility] | | [facility] | | | | | | | 7th Floor | | | | + + + +--------+------+ + + + | Result panel 358 | + + + + + +--------+------+ + | | 2021-07-19 | [facility] | 29.3 | pg | (missing) | | (unavailable | 11:35:27 | [facility] | | [facility] | | | | | | | 7th Floor | | | | + + + +--------+------+ + + + | Result panel 359 | + + + + + +--------+ + + | | 2021-07-19 | [facility] | 34.4 | (missing) | (missing) | | (unavailable | 11:35:27 | [facility] | [facility] | | | | | | | 7th Floor | | | | + + + +--------+ + + + + | Result panel 360 | + + + + + +--------+-----+ + | | 2021-07-19 | [facility] | 14.4 | % | (missing) | | (unavailable | 11:35:27 | [facility] | [facility] | | | | | | | 7th Floor | | | | + + + +--------+-----+ + + + | Result panel 361 | + + + + + +-------+ + + | | 2021-07-19 | [facility] | 278 | (missing) | (missing) | | (unavailable | 11:35:27 | [facility] | | [facility] | | | | | | | 7th Floor | | | | + + + +-------+ + + + + | Result panel 362 | + + + + + +-------+------+ + | | 2021-07-19 | [facility] | 9.4 | fL | (missing) | | (unavailable | 11:35:27 | [facility] | [facility] | | | | | | | 7th Floor | | | | + + + +-------+------+ + + + | Result panel 363 | + + + + + +--------+-----+ + | | 2021-07-19 | [facility] | 79.3 | % | (missing) | | (unavailable | 11:35:27 | [facility] | [facility] | | | | | | | 7th Floor | | | | + + + +--------+-----+ + + + | Result panel 364 | + + + + + +--------+-----+ + | | 2021-07-19 | [facility] | 11.8 | % | (missing) | | (unavailable | 11:35:27 | [facility] | [facility] | | | | | | | 7th Floor | | | | + + + +--------+-----+ + + + | Result panel 365 | + + + + + +-------+-----+ + | | 2021-07-19 | [facility] | 7.8 | % | (missing) | | (unavailable | 11:35:27 | [facility] | [facility] | | | | | | | [facility]th Floor | | | | + + + +-------+-----+ + + + | Result panel 366 | + + + + + +-------+-----+ + | | 2021-07-19 | [facility] | 0.3 | % | (missing) | | (unavailable | 11:35:27 | [facility] | [facility] | | | | | | | [facility]th Floor | | | | + + + +-------+-----+ + + + | Result panel 367 | + + + + + +-------+-----+ + | | 2021-07-19 | [facility] | 0.5 | % | (missing) | | (unavailable | 11:35:27 | [facility] | [facility] | | | | | | | 7th Floor | | | | + + + +-------+-----+ + + + | Result panel 368 | + + + + + +-------+-----+ + | | 2021-07-19 | [facility] | 0.3 | % | (missing) | | (unavailable | 11:35:27 | [facility] | | [facility] | | | | | | | 7th Floor | | | | + + + +-------+-----+ + + + | Result panel 369 | + + + + + +-------+ + + | | 2021-07-19 | [facility] | 0.0 | (missing) | (missing) | | (unavailable | 11:35:27 | [facility] | | [facility] | | | | | | | [facility]th Floor | | | | + + + +-------+ + + + + | Result panel 370 | + + + + + +--------+ + + | | 2021-07-19 | [facility] | 8.79 | (missing) | (missing) | | (unavailable | 11:35:27 | [facility] | | [facility] | | | | | | | 7th Floor | | | | + + + +--------+ + + + + | Result panel 371 | + + + + + +--------+ + + | | 2021-07-19 | [facility] | 1.31 | (missing) | (missing) | | (unavailable | 11:35:27 | [facility] ) | | [facility] | | | | | | | 7th Floor | | | | + + + +--------+ + + + + | Result panel 372 | + + + + + +--------+ + + | | 2021-07-19 | [facility] | 0.86 | (missing) | (missing) | | (unavailable | 11:35:27 | [facility] | | [facility] | | | | | | | 7th Floor | | | | + + + +--------+ + + + + | Result panel 373 | + + + + + +--------+ + + | | 2021-07-19 | [facility] | 0.03 | (missing) | (missing) | | (unavailable | 11:35:27 | [facility] | | [facility] | | | | | | | 7th Floor | | | | + + + +--------+ + + + + | Result panel 374 | + + + + + +--------+ + + | | 2021-07-19 | [facility] | 0.05 | (missing) | (missing) | | (unavailable | 11:35:27 | [facility] | | [facility] | | | | | | | 7th Floor | | | | + + + +--------+ + + + + | Result panel 375 | + + + + + +--------+ + + | | 2021-07-19 | [facility] | 0.03 | (missing) | (missing) | | (unavailable | 11:35:27 | [facility] | | [facility] | | | | | | | 7th Floor | | | | + + + +--------+ + + + + | Result panel 376 | + + + + + +--------+ + + | | 2021-07-19 | [facility] | 0.00 | (missing) | (missing) | | (unavailable | 11:35:27 | [facility] ) | | [facility] | | | | | | | 7th Floor | | | | + + + +--------+ + + + + | Result panel 377 | + + + + + + + + + | | 2021-07-19 | [facility] | Abnormal | (missing) | (missing) | | (unavailable | 11:35:27 | [facility] ) | | [facility] | | | | | | | 7th Floor | | | | + + + + + + + + + | Result panel 378 | + + + + + +-------+ + + | Spec | 2021-07-19 | [facility] | QNS | (missing) | (missing) | | Rejection | 11:38:17 | [facility] | | | | | Reason | | [facility] | | | | | | | 7th Floor | | | | + + + +-------+ + + + + | Result panel 379 | + + + + + + + + + | Action | 2021-07-19 | [facility] | Recollect | (missing) | (missing) | | Required | 11:38:17 | [facility] | | | | | [facility] | | | | | | | 7th Floor | | | | + + + + + + + + + | Result panel 380 | + + + + + + + + + | | 2021-07-19 | [facility] | Abnormal | (missing) | (missing) | | (unavailable | 11:38:17 | [facility] ) | | [facility] | | | | | | | 7th Floor | | | | + + + + + + + + + | Result panel 381 | + + + + + +-------+ + + | Spec | 2021-07-19 | [facility] | QNS | (missing) | (missing) | | Rejection | 11:39:07 | [facility] | | | | | Reason | | [facility] | | | | | | | 7th Floor | | | | + + + +-------+ + + + + | Result panel 382 | + + + + + + + + + | Action | 2021-07-19 | [facility] | Recollect | (missing) | (missing) | | Required | 11:39:07 | [facility] | | | | | [facility] | | | | | | | 7th Floor | | | | + + + + + + + + + | Result panel 383 | + + + + + + + + + | | 2021-07-19 | [facility] | Abnormal | (missing) | (missing) | | (unavailable | 11:39:07 | [facility] ) | | [facility] | | | | | | | 7th Floor | | | | + + + + + + + + + | Result panel 384 | + + + + + +--------+ + + | Hold BBK | 2021-07-19 | [facility] | Done | (missing) | (missing) | | Order | 13:06:51 | [facility] | | | | [facility] | | | | | | | 7th Floor | | | | + + + +--------+ + + + + | Result panel 385 | + + + + + +-------+ + + | | 2021-07-19 | [facility] | 288 | (missing) | (missing) | | (unavailable | 14:00:17 | [facility] ) | | [facility] | | | | | | | 7th Floor | | | | + + + +-------+ + + + + | Result panel 386 | + + + + + +---------+ + + | [facility] INT | 2021-07-19 | [facility] | A POS | (missing) | (missing) | | | 14:19:10 | [facility] | | | | | [facility] | | | | | | | 7th Floor | | | | + + + +---------+ + + + + | Result panel 387 | + + + + + +---------+ + + | Type & | 2021-07-19 | [facility] | Ready | (missing) | (missing) | | Screen | 14:31 | [facility] | | | | Request | | [facility] | | | | | | | 7th Floor | | | | + + + +---------+ + + + + | Result panel 388 | + + + + + + + + + | Antibody | 2021-07-19 | [facility] | Negative | (missing) | (missing) | | Screen | 14:31 | [facility] | | | | | | [facility] Care | | | | | | | 7th Floor | | | | + + + + + + + + + | Result panel 389 | + + + + + + + + + | Spec | 2021-07-19 | [facility] | Hemolyzed | (missing) | (missing) | | Rejection | 14:58:46 | [facility] | | | | | Reason | | [facility] | | | | | | | 7th Floor | | | | + + + + + + + + + | Result panel 390 | + + + + + + + + + | Action | 2021-07-19 | [facility] | Recollect | (missing) | (missing) | | Required | 14:58:46 | [facility] | | | | | | [facility] | | | | | | | 7th Floor | | | | + + + + + + + + + | Result panel 391 | + + + + + + + + + | | 2021-07-19 | [facility] | Abnormal | (missing) | (missing) | | (unavailable | 14:58:46 | [facility] | | | ) | | [facility] | | | | | | | 7th Floor | | | | + + + + + + + + + | Result panel 392 | + + + + + + + + + | | 2021-07-19 | [facility] | (missing) | (missing) | (missing) | | (unavailable | 15:04 | [facility] | | | ) | | [facility] | | | | | | | 7th Floor | | | | + + + + + + + + + | Result panel 393 | + + + + + + + + + | Pelvis | 2021-07-19 | [facility] | (missing) | (missing) | (missing) | | | 15:04 | [facility] | | | | | | [facility] | | | | | | | 7th Floor | | | | + + + + + + + + + | Result panel 394 | + + + + + +-------+---------+ + | | 2021-07-19 | [facility] | 296 | mg/dL | (missing) | | (unavailable | 15:20:30 | [facility] | | | | ) | | [facility] | | | | | | | 7th Floor | | | | + + + +-------+---------+ + + + | Result panel 395 | + + + + + + + + + | | 2021-07-19 | [facility] | Abnormal | (missing) | (missing) | | (unavailable | 15:20:30 | [facility] | | | | ) | | [facility] | | | | | | | 7th Floor | | | | + + + + + + + + + | Result panel 396 | + + + + + + + + + | Spec | 2021-07-19 | [facility] | Hemolyzed | (missing) | (missing) | | Rejection | 16:20:11 | [facility] | | | | | Reason | | [facility] | | | | | | | 7th Floor | | | | + + + + + + + + + | Result panel 397 | + + + + + + + + + | Action | 2021-07-19 | [facility] | Recollect | (missing) | (missing) | | Required | 16:20:11 | [facility] | | | | | | | [facility] | | | | | | | 7th Floor | | | | + + + + + + + + + | Result panel 398 | + + + + + + + + + | | 2021-07-19 | [facility] | Abnormal | (missing) | (missing) | | (unavailable | 16:20:11 | [facility] | | | | | ) | | [facility] | | | | | | | 7th Floor | | | | + + + + + + + + + | Result panel 399 | + + + + + + + + + | | 2021-07-19 | [facility] | Not | (missing) | (missing) | | Amphetamine/ | 16:37:18 | [facility] | Detected | | | | Methamphetam | | Acute Care | | | | | ine Scn | | 7th Floor | | | | | Urine | | | | | | + + + + + + + + + | Result panel 400 | + + + + + + + + + | | 2021-07-19 | [facility] | Not | (missing) | (missing) | | Barbiturates | 16:37:18 | [facility] | Detected | | | | Scn Urine | | Acute Care | | | | | | | 7th Floor | | | | + + + + + + + + + | Result panel 401 | + + + + + + + + + | | 2021-07-19 | [facility] | Not | (missing) | (missing) | | Benzodiazepi | 16:37:18 | [facility] | Detected | | | | scottie Scn | | Acute Care | | | | | Urine | | 7th Floor | | | | + + + + + + + + + | Result panel 402 | + + + + + + + + + | | 2021-07-19 | [facility] | Not | (missing) | (missing) | | Buprenorphin | 16:37:18 | [facility] | Detected | | | | e Scn Urine | | Acute Care | | | | | | | 7th Floor | | | | + + + + + + + + + | Result panel 403 | + + + + + + + + + | Cocaine | 2021-07-19 | [facility] | Not | (missing) | (missing) | | Metabolite | 16:37:18 | [facility] | Detected | | | | Scn Urine | | Acute Care | | | | | | | 7th Floor | | | | + + + + + + + + + | Result panel 404 | + + + + + + + + + | Marijuana | 2021-07-19 | [facility] | Not | (missing) | (missing) | | Metabolites | 16:37:18 | [facility] | Detected | | | | Scn Urine | | Acute Care | | | | | | | 7th Floor | | | | + + + + + + + + + | Result panel 405 | + + + + + + + + + | Ethanol Scn | 2021-07-19 | [facility] | Not | (missing) | (missing) | | Urine | 16:37:18 | [facility] | Detected | | | | | | Acute Care | | | | | | | 7th Floor | | | | + + + + + + + + + | Result panel 406 | + + + + + + + + + | Heroin | 2021-07-19 | [facility] | Not | (missing) | (missing) | | Metabolite | 16:37:18 | [facility] | Detected | | | | Scn Urine | | Acute Care | | | | | | | 7th Floor | | | | + + + + + + + + + | Result panel 407 | + + + + + + + + + | MDMA/MDA | 2021-07-19 | [facility] | Not | (missing) | (missing) | | Scn Urine | 16:37:18 | [facility] | Detected | | | | | | [facility] Care | | | | | | | 7th Floor | | | | + + + + + + + + + | Result panel 408 | + + + + + + + + + | Methadone | 2021-07-19 | [facility] | Not | (missing) | (missing) | | Scn Urine | 16:37:18 | [facility] | Detected | | | | | | Acute Care | | | | | | | 7th Floor | | | | + + + + + + + + + | Result panel 409 | + + + + + + + + + | | 2021-07-19 | [facility] | Not | (missing) | (missing) | | Hydrocodone/ | 16:37:18 | [facility] | Detected | | | | Morphine Scn | | Acute Care | | | | | Urine | | 7th Floor | | | | + + + + + + + + + | Result panel 410 | + + + + + + + + + | | 2021-07-19 | [facility] | Not | (missing) | (missing) | | Oxycodone/Ox | 16:37:18 | [facility] | Detected | | | | ymorphone | | Acute Care | | | | | Scn Urine | | 7th Floor | | | | + + + + + + + + + | Result panel 411 | + + + + + + + + + | PCP Scn | 2021-07-19 | [facility] | Not | (missing) | (missing) | | Urine | 16:37:18 | [facility] | Detected | | | | | | Acute Care | | | | | | | 7th Floor | | | | + + + + + + + + + | Result panel 412 | + + + + + + + + + | | 2021-07-19 | [facility] | Not | (missing) | (missing) | | Propoxyphene | 16:37:18 | [facility] | Detected | | | | Scn Urine | | Acute Care | | | | | | | 7th Floor | | | | + + + + + + + + + | Result panel 413 | + + + + + +--------+ + + | U Specimen | 2021-07-19 | [facility] | Pass | (missing) | (missing) | | Accept | 16:37:18 | [facility] | [facility] | | | | | | | 7th Floor | | | | + + + +--------+ + + + + | Result panel 414 | + + + + + + + + + | Drug Test | 2021-07-19 | [facility] | Disclaimer | (missing) | (missing) | | Disclaimer | 16:37:18 | [facility] | [facility] | | | | | | | 7th Floor | | | | + + + + + + + + + | Result panel 415 | + + + + + +-------+---------+ + | | 2021-07-19 | [facility] | 351 | mg/dL | (missing) | | (unavailable | 16:50:19 | [facility] | | | | ) | | [facility] | | | | | | | 7th Floor | | | | + + + +-------+---------+ + + + | Result panel 416 | + + + + + + + + + | | 2021-07-19 | [facility] | Abnormal | (missing) | (missing) | | (unavailable | 16:50:19 | [facility] | | | ) | | [facility] | | | | | | | 7th Floor | | | | + + + + + + + + + | Result panel 417 | + + + + + + + + + | | 2021-07-19 | [facility] | Not | (missing) | (missing) | | Amphetamine/ | 16:52:52 | [facility] | Detected | | | | Methamphetam | | Acute Care | | | | | ine Scn | | 7th Floor | | | | | Urine | | | | | | + + + + + + + + + | Result panel 418 | + + + + + + + + + | | 2021-07-19 | [facility] | Not | (missing) | (missing) | | Benzodiazepi | 16:52:52 | [facility] | Detected | | | | scottie Scn | | Acute Care | | | | | Urine | | 7th Floor | | | | + + + + + + + + + | Result panel 419 | + + + + + + + + + | Marijuana | 2021-07-19 | [facility] | Not | (missing) | (missing) | | Metabolites | 16:52:52 | [facility] | Detected | | | | Scn Urine | | Acute Care | | | | | | | 7th Floor | | | | + + + + + + + + + | Result panel 420 | + + + + + + + + + | Cocaine | 2021-07-19 | [facility] | Not | (missing) | (missing) | | Metabolite | 16:52:52 | [facility] | Detected | | | | Scn Urine | | Acute Care | | | | | | | 7th Floor | | | | + + + + + + + + + | Result panel 421 | + + + + + + + + + | Ethanol Scn | 2021-07-19 | [facility] | Not | (missing) | (missing) | | Urine | 16:52:52 | [facility] | Detected | | | | | | Acute Care | | | | | | | 7th Floor | | | | + + + + + + + + + | Result panel 422 | + + + + + + + + + | Heroin | 2021-07-19 | [facility] | Not | (missing) | (missing) | | Metabolite | 16:52:52 | [facility] | Detected | | | | Scn Urine | | Acute Care | | | | | | | 7th Floor | | | | + + + + + + + + + | Result panel 423 | + + + + + + + + + | | 2021-07-19 | [facility] | Not | (missing) | (missing) | | Hydrocodone/ | 16:52:52 | [facility] | Detected | | | | Morphine Scn | | Acute Care | | | | | Urine | | [address] Floor | | | | + + + + + + + + + | Result panel 424 | + + + + + + + + + | | 2021-07-19 | [facility] | Not | (missing) | (missing) | | Oxycodone/Ox | 16:52:52 | [facility] | Detected | | | | ymorphone | | [facility] Care | | | | | Scn Urine | | 7th Floor | | | | + + + + + + + + + | Result panel 425 | + + + + + + + + + | U Specimen | 2021-07-19 | [facility] | DIL[facility] | (missing) | (missing) | | Accept | 16:52:52 | [facility] | | [facility] | | | | | | | 7th Floor | | | | + + + + + + + + + | Result panel 426 | + + + + + + + + + | Drug Test | 2021-07-19 | [facility] | Disclaimer | (missing) | (missing) | | Disclaimer | 16:52:52 | [facility] | [facility] | | | | | | | 7th Floor | | | | + + + + + + + + + | Result panel 427 | + + + + + + + + + | | 2021-07-19 | [facility] | Abnormal | (missing) | (missing) | | (unavailable | 16:52:52 | [facility] | [facility] | | | | | | | 7th Floor | | | | + + + + + + + + + | Result panel 428 | + + + + + +-------+---------+ + | | 2021-07-19 | [facility] | 261 | mg/dL | (missing) | | (unavailable | 18:10:22 | [facility] | [facility] | | | | | | | 7th Floor | | | | + + + +-------+---------+ + + + | Result panel 429 | + + + + + + + + + | | 2021-07-19 | [facility] | Abnormal | (missing) | (missing) | | (unavailable | 18:10:22 | [facility] | [facility] | | | | | | | 7th Floor | | | | + + + + + + + + + | Result panel 430 | + + + + + + + + + | | 2021-07-19 | [facility] | (missing) | (missing) | (missing) | | (unavailable | 18:36:42 | [facility] | [facility] | | | | | | | [facility]th Floor | | | | + + + + + + + + + | Result panel 431 | + + + + + + + + + | | 2021-07-19 | [facility] | (missing) | (missing) | (missing) | | (unavailable | 18:36:42 | [facility] | [facility] | | | | | | | [facility]th Floor | | | | + + + + + + + + + | Result panel 432 | + + + + + +-------+---------+ + | | 2021-07-19 | [facility] | 237 | mg/dL | (missing) | | (unavailable | 19:20:17 | [facility] | [facility] | | | | | | | 7th Floor | | | | + + + +-------+---------+ + + + | Result panel 433 | + + + + + + + + + | | 2021-07-19 | [facility] | Abnormal | (missing) | (missing) | | (unavailable | 19:20:17 | [facility] | [facility] | | | | | | | [facility]th Floor | | | | + + + + + + + + + | Result panel 434 | + + + + + +--------+ + + | | 2021-07-19 | [facility] | 9.31 | (missing) | (missing) | | (unavailable | 20:: | [facility] | [facility] | | | | | | | [facility]th Floor | | | | + + + +--------+ + + + + | Result panel 435 | + + + + + +--------+ + + | | 2021-07-19 | [facility] | 4.69 | (missing) | (missing) | | (unavailable | 20:13:01 | [facility] | [facility] | | | | | | | [facility]th Floor | | | | + + + +--------+ + + + + | Result panel 436 | + + + + + +--------+ + + | | 2021-07-19 | [facility] | 13.6 | (missing) | (missing) | | (unavailable | 20:13:01 | [facility] | [facility] | | | | | | | [facility]th Floor | | | | + + + +--------+ + + + + | Result panel 437 | + + + + + +--------+-----+ + | | 2021-07-19 | [facility] | 40.0 | % | (missing) | | (unavailable | 20:13:01 | [facility] | [facility] | | | | | | | [facility]th Floor | | | | + + + +--------+-----+ + + + | Result panel 438 | + + + + + +--------+------+ + | | 2021-07-19 | [facility] | 85.3 | fL | (missing) | | (unavailable | 20:13:01 | [facility] | [facility] | | | | | | | 7th Floor | | | | + + + +--------+------+ + + + | Result panel 439 | + + + + + +--------+------+ + | | 2021-07-19 | [facility] | 29.0 | pg | (missing) | | (unavailable | 20:13:01 | [facility] | [facility] | | | | | | | [facility]th Floor | | | | + + + +--------+------+ + + + | Result panel 440 | + + + + + +--------+ + + | | 2021-07-19 | [facility] | 34.0 | (missing) | (missing) | | (unavailable | 20:13:01 | [facility] | [facility] | | | | | | | 7th Floor | | | | + + + +--------+ + + + + | Result panel 441 | + + + + + +--------+-----+ + | | 2021-07-19 | [facility] | 14.4 | % | (missing) | | (unavailable | 20:13:01 | [facility] | [facility] | | | | | | | 7th Floor | | | | + + + +--------+-----+ + + + | Result panel 442 | + + + + + +-------+ + + | | 2021-07-19 | [facility] | 231 | (missing) | (missing) | | (unavailable | 20:13:01 | [facility] | [facility] | | | | | | | 7th Floor | | | | + + + +-------+ + + + + | Result panel 443 | + + + + + +-------+------+ + | | 2021-07-19 | [facility] | 8.9 | fL | (missing) | | (unavailable | 20:13:01 | [facility] | [facility] | | | | | | | 7th Floor | | | | + + + +-------+------+ + + + | Result panel 444 | + + + + + +--------+-----+ + | | 2021-07-19 | [facility] | 82.0 | % | (missing) | | (unavailable | 20:13:01 | [facility] | [facility] | | | | | | | 7th Floor | | | | + + + +--------+-----+ + + + | Result panel 445 | + + + + + +--------+-----+ + | | 2021-07-19 | [facility] | 10.5 | % | (missing) | | (unavailable | 20:13:01 | [facility] | [facility] | | | | | | | 7th Floor | | | | + + + +--------+-----+ + + + | Result panel 446 | + + + + + +-------+-----+ + | | 2021-07-19 | [facility] | 6.3 | % | (missing) | | (unavailable | 20:13:01 | [facility] | [facility] | | | | | | | 7th Floor | | | | + + + +-------+-----+ + + + | Result panel 447 | + + + + + +-------+-----+ + | | 2021-07-19 | [facility] | 0.4 | % | (missing) | | (unavailable | 20:13:01 | [facility] | [facility] | | | | | | | 7th Floor | | | | + + + +-------+-----+ + + + | Result panel 448 | + + + + + +-------+-----+ + | | 2021-07-19 | [facility] | 0.5 | % | (missing) | | (unavailable | 20:13:01 | [facility] | [facility] | | | | | | | 7th Floor | | | | + + + +-------+-----+ + + + | Result panel 449 | + + + + + +-------+-----+ + | | 2021-07-19 | [facility] | 0.3 | % | (missing) | | (unavailable | 20:13:01 | [facility] | [facility] | | | | | | | 7th Floor | | | | + + + +-------+-----+ + + + | Result panel 450 | + + + + + +-------+ + + | | 2021-07-19 | [facility] | 0.0 | (missing) | (missing) | | (unavailable | 20:13:01 | [facility] | [facility] | | | | | | | [facility]th Floor | | | | + + + +-------+ + + + + | Result panel 451 | + + + + + +--------+ + + | | 2021-07-19 | [facility] | 7.62 | (missing) | (missing) | | (unavailable | 20:13:01 | [facility] | [facility] | | | | | | | 7th Floor | | | | + + + +--------+ + + + + | Result panel 452 | + + + + + +--------+ + + | | 2021-07-19 | [facility] | 0.98 | (missing) | (missing) | | (unavailable | 20:13:01 | [facility] | [facility] | | | | | | | 7th Floor | | | | + + + +--------+ + + + + | Result panel 453 | + + + + + +--------+ + + | | 2021-07-19 | [facility] | 0.59 | (missing) | (missing) | | (unavailable | 20:13:01 | [facility] | [facility] | | | | | | | [facility]th Floor | | | | + + + +--------+ + + + + | Result panel 454 | + + + + + +--------+ + + | | 2021-07-19 | [facility] | 0.04 | (missing) | (missing) | | (unavailable | 20:13:01 | [facility] | [facility] | | | | | | | [facility]th Floor | | | | + + + +--------+ + + + + | Result panel 455 | + + + + + +--------+ + + | | 2021-07-19 | [facility] | 0.05 | (missing) | (missing) | | (unavailable | 20:13:01 | [facility] | [facility] | | | | | | | [facility]th Floor | | | | + + + +--------+ + + + + | Result panel 456 | + + + + + +--------+ + + | | 2021-07-19 | [facility] | 0.03 | (missing) | (missing) | | (unavailable | 20:13:01 | [facility] | [facility] | | | | | | | 7th Floor | | | | + + + +--------+ + + + + | Result panel 457 | + + + + + +--------+ + + | | 2021-07-19 | [facility] | 0.00 | (missing) | (missing) | | (unavailable | 20:13:01 | [facility] | [facility] | | | | | | | 7th Floor | | | | + + + +--------+ + + + + | Result panel 458 | + + + + + + + + + | | 2021-07-19 | [facility] | Abnormal | (missing) | (missing) | | (unavailable | 20:13:01 | [facility] | [facility] | | | | | | | 7th Floor | | | | + + + + + + + + + | Result panel 459 | + + + + + +-------+---------+ + | | 2021-07-19 | [facility] | 201 | mg/dL | (missing) | | (unavailable | 20:25:28 | [facility] | [facility] | | | | | | | 7th Floor | | | | + + + +-------+---------+ + + + | Result panel 460 | + + + + + + + + + | | 2021-07-19 | [facility] | Abnormal | (missing) | (missing) | | (unavailable | 20:25:28 | [facility] | [facility] | | | | | | | 7th Floor | | | | + + + + + + + + + | Result panel 461 | + + + + + +-------+ + + | | 2021-07-19 | [facility] | 124 | mmol/L | (missing) | | (unavailable | 20:38:38 | [facility] | [facility] | | | | | | | 7th Floor | | | | + + + +-------+ + + + + | Result panel 462 | + + + + + + + + + | | 2021-07-19 | [facility] | See Comment | (missing) | (missing) | | (unavailable | 20:38:38 | [facility] | [facility] | | | | | | | 7th Floor | | | | + + + + + + + + + | Result panel 463 | + + + + + +------+ + + | | 2021-07-19 | [facility] | 96 | mmol/L | (missing) | | (unavailable | 20:38:38 | [facility] | [facility] | | | | | | | 7th Floor | | | | + + + +------+ + + + + | Result panel 464 | + + + + + +------+ + + | | 2021-07-19 | [facility] | 20 | mmol/L | (missing) | | (unavailable | 20:38:38 | [facility] | [facility] | | | | | | | 7th Floor | | | | + + + +------+ + + + + | Result panel 465 | + + + + + +-----+ + + | Anion Gap | 2021-07-19 | [facility] | 8 | mmol/L | (missing) | | | 20:38:38 | [facility] | [facility] | | | | | | | 7th Floor | | | | + + + +-----+ + + + + | Result panel 466 | + + + + + +------+---------+ + | | 2021-07-19 | [facility] | 12 | mg/dL | (missing) | | (unavailable | 20:38:38 | [facility] | [facility] | | | | | | | 7th Floor | | | | + + + +------+---------+ + + + | Result panel 467 | + + + + + +--------+---------+ + | | 2021-07-19 | [facility] | 0.45 | mg/dL | (missing) | | (unavailable | 20:38:38 | [facility] | [facility] | | | | | | | 7th Floor | | | | + + + +--------+---------+ + + + | Result panel 468 | + + + + + +-------+---------+ + | | 2021-07-19 | [facility] | 188 | mg/dL | (missing) | | (unavailable | 20:38:38 | [facility] | [facility] | | | | | | | 7th Floor | | | | + + + +-------+---------+ + + + | Result panel 469 | + + + + + +-------+---------+ + | | 2021-07-19 | [facility] | 7.8 | mg/dL | (missing) | | (unavailable | 20:38:38 | [facility] | [facility] | | | | | | | 7th Floor | | | | + + + +-------+---------+ + + + | Result panel 470 | + + + + + +-------+ + + | | 2021-07-19 | [facility] | 5.8 | (missing) | (missing) | | (unavailable | 20:38:38 | [facility] | [facility] | | | | | | | 7th Floor | | | | + + + +-------+ + + + + | Result panel 471 | + + + + + +-------+ + + | | 2021-07-19 | [facility] | 2.7 | (missing) | (missing) | | (unavailable | 20:38:38 | [facility] | [facility] | | | | | | | 7th Floor | | | | + + + +-------+ + + + + | Result panel 472 | + + + + + +------+-------+ + | | 2021-07-19 | [facility] | 25 | U/L | (missing) | | (unavailable | 20:38:38 | [facility] | [facility] | | | | | | | 7th Floor | | | | + + + +------+-------+ + + + | Result panel 473 | + + + + + + + + + | | 2021-07-19 | [facility] | See Comment | (missing) | (missing) | | (unavailable | 20:38:38 | [facility] | [facility] | | | | | | | 7th Floor | | | | + + + + + + + + + | Result panel 474 | + + + + + +------+-------+ + | | 2021-07-19 | [facility] | 59 | U/L | (missing) | | (unavailable | 20:38:38 | [facility] | [facility] | | | | | | | 7th Floor | | | | + + + +------+-------+ + + + | Result panel 475 | + + + + + +-------+---------+ + | | 2021-07-19 | [facility] | 0.5 | mg/dL | (missing) | | (unavailable | 20:38:38 | [facility] | [facility] | | | | | | | 7th Floor | | | | + + + +-------+---------+ + + + | Result panel 476 | + + + + + + + + + | | 2021-07-19 | [facility] | Abnormal | (missing) | (missing) | | (unavailable | 20:38:38 | [facility] | [facility] | | | | | | | 7th Floor | | | | + + + + + + + + + | Result panel 477 | + + + + + +-------+---------+ + | | 2021-07-19 | [facility] | 2.8 | mg/dL | (missing) | | (unavailable | 20:38:38 | [facility] | [facility] | | | | | | | 7th Floor | | | | + + + +-------+---------+ + + + | Result panel 478 | + + + + + + + + + | | 2021-07-19 | [facility] | Abnormal | (missing) | (missing) | | (unavailable | 20:38:38 | [facility] | [facility] | | | | | | | 7th Floor | | | | + + + + + + + + + | Result panel 479 | + + + + + +-------+---------+ + | | 2021-07-19 | [facility] | 2.4 | mg/dL | (missing) | | (unavailable | 20:38:38 | [facility] | [facility] | | | | | | | 7th Floor | | | | + + + +-------+---------+ + + + | Result panel 480 | + + + + + + + + + | | 2021-07-19 | [facility] | Abnormal | (missing) | (missing) | | (unavailable | 20:38:38 | [facility] | [facility] | | | | | | | 7th Floor | | | | + + + + + + + + + | Result panel 481 | + + + + + + + + + | | 2021-07-19 | [facility] | See Comment | (missing) | (missing) | | (unavailable | 20:38:38 | [facility] | [facility] | | | | | | | 7th Floor | | | | + + + + + + + + + | Result panel 482 | + + + + + +-------+---------+ + | | 2021-07-19 | [facility] | 4.2 | mg/dL | (missing) | | (unavailable | 20:38:38 | [facility] | [facility] | | | | | | | 7th Floor | | | | + + + +-------+---------+ + + + | Result panel 483 | + + + + + +------+-------+ + | | 2021-07-19 | [facility] | 96 | U/L | (missing) | | (unavailable | 20:38:38 | [facility] | | [facility] | | | | | | | 7th Floor | | | | + + + +------+-------+ + + + | Result panel 484 | + + + + + + + + + | | 2021-07-19 | [facility] | Abnormal | (missing) | (missing) | | (unavailable | 20:38:38 | [facility] | | [facility] | | | | | | | 7th Floor | | | | + + + + + + + + + | Result panel 485 | + + + + + +------+-------+ + | | 2021-07-19 | [facility] | 34 | U/L | (missing) | | (unavailable | 20:38:38 | [facility] | | [facility] | | | | | | | 7th Floor | | | | + + + +------+-------+ + + + | Result panel 486 | + + + + + +--------+---------+ + | | 2021-07-19 | [facility] | 6.04 | mg/dL | (missing) | | (unavailable | 20:43:19 | [facility] | | [facility] | | | | | | | 7th Floor | | | | + + + +--------+---------+ + + + | Result panel 487 | + + + + + + + + + | | 2021-07-19 | [facility] | Abnormal | (missing) | (missing) | | (unavailable | 20:43:19 | [facility] | [facility] | | | | | | | 7th Floor | | | | + + + + + + + + + | Result panel 488 | + + + + + + + + + | | 2021-07-19 | [facility] | Non | (missing) | (missing) | | (unavailable | ::22 | [facility] | Re[facility] | | | | ) | | [facility] | | | | | | | [facility]th Floor | | | | + + + + + + + + + | Result panel 489 | + + + + + + + + + | | 2021-07-19 | [facility] | Non | (missing) | (missing) | | (unavailable | :07:22 | [facility] ) | | [facility] | | | | | | | 7th Floor | | | | + + + + + + + + + | Result panel 490 | + + + + + +-------+---------+ + | | 2021-07-19 | [facility] | 197 | mg/dL | (missing) | | (unavailable | 21:10:19 | [facility] | [facility] | | | | | | | 7th Floor | | | | + + + +-------+---------+ + + + | Result panel 491 | + + + + + + + + + | | 2021-07-19 | [facility] | Abnormal | (missing) | (missing) | | (unavailable | 21:10:19 | [facility] | | [facility] | | | | | | | 7th Floor | | | | + + + + + + + + + | Result panel 492 | + + + + + +-------+---------+ + | | 2021-07-19 | [facility] | 276 | mg/dL | (missing) | | (unavailable | 22:15:19 | [facility] | [facility] | | | | | | | 7th Floor | | | | + + + +-------+---------+ + + + | Result panel 493 | + + + + + + + + + | | 2021-07-19 | [facility] | Abnormal | (missing) | (missing) | | (unavailable | 22:15:19 | [facility] | [facility] | | | | | | | 7th Floor | | | | + + + + + + + + + | Result panel 494 | + + + + + +-------+---------+ + | | 2021-07-19 | [facility] | 295 | mg/dL | (missing) | | (unavailable | 23:10:13 | [facility] | | [facility] | | | | | | | 7th Floor | | | | + + + +-------+---------+ + + + | Result panel 495 | + + + + + + + + + | | 2021-07-19 | [facility] | Abnormal | (missing) | (missing) | | (unavailable | 23:10:13 | [facility] | [facility] | | | | | | | 7th Floor | | | | + + + + + + + + + | Result panel 496 | + + + + + +-------+---------+ + | | 2021-07-20 | [facility] | 201 | mg/dL | (missing) | | (unavailable | 00:15:29 | [facility] | [facility] | | | | | | | 7th Floor | | | | + + + +-------+---------+ + + + | Result panel 497 | + + + + + + + + + | | 2021-07-20 | [facility] | Abnormal | (missing) | (missing) | | (unavailable | 00:15:29 | [facility] | | [facility] | | | | | | | 7th Floor | | | | + + + + + + + + + | Result panel 498 | + + + + + +-------+---------+ + | | 2021-07-20 | [facility] | 218 | mg/dL | (missing) | | (unavailable | 01:15:28 | [facility] | | [facility] | | | | | | | 7th Floor | | | | + + + +-------+---------+ + + + | Result panel 499 | + + + + + + + + + | | 2021-07-20 | [facility] | Abnormal | (missing) | (missing) | | (unavailable | 01:15:28 | [facility] | | [facility] | | | | | | | 7th Floor | | | | + + + + + + + + + | Result panel 500 | + + + + + +-------+---------+ + | | 2021-07-20 | [facility] | 244 | mg/dL | (missing) | | (unavailable | 02:15:30 | [facility] | | [facility] | | | | | | | 7th Floor | | | | + + + +-------+---------+ + + + | Result panel 501 | + + + + + + + + + | | 2021-07-20 | [facility] | Abnormal | (missing) | (missing) | | (unavailable | 02:15:30 | [facility] | | [facility] | | | | | | | [facility]th Floor | | | | + + + + + + + + + | Result panel 502 | + + + + + + + + + | Spec | 2021-07-20 | [facility] | Hemolyzed | (missing) | (missing) | | Rejection | 02:19:11 | [facility] | | | | | Reason | | [facility] | | | | | | | 7th Floor | | | | + + + + + + + + + | Result panel 503 | + + + + + + + + + | Action | 2021-07-20 | [facility] | Recollect | (missing) | (missing) | | Required | 02:19:11 | [facility] | | | [facility] | | | | | | | [facility]th Floor | | | | + + + + + + + + + | Result panel 504 | + + + + + + + + + | | 2021-07-20 | [facility] | Abnormal | (missing) | (missing) | | (unavailable | 02:19:11 | [facility] | | [facility] | | | | | | | [facility]th Floor | | | | + + + + + + + + + | Result panel 505 | + + + + + +-------+ + + | | 2021-07-20 | [facility] | 126 | mmol/L | (missing) | | (unavailable | 03:40:32 | [facility] | | [facility] | | | | | | | 7th Floor | | | | + + + +-------+ + + + + | Result panel 506 | + + + + + +-------+ + + | | 2021-07-20 | [facility] | 5.4 | mmol/L | (missing) | | (unavailable | 03:40:32 | [facility] | [facility] | [facility] | | [facility] | | | | | | | 7th Floor | | | | + + + +-------+ + + + + | Result panel 507 | + + + + + +------+ + + | | 2021-07-20 | [facility] | 97 | mmol/L | (missing) | | (unavailable | 03:40:32 | [facility] | [facility] | | [facility] | | | | | | | 7th Floor | | | | + + + +------+ + + + + | Result panel 508 | + + + + + +------+ + + | | 2021-07-20 | [facility] | 22 | mmol/L | (missing) | | (unavailable | 03:40:32 | [facility] | [facility] | | [facility] | | | | | | | 7th Floor | | | | + + + +------+ + + + + | Result panel 509 | + + + + + +-----+ + + | Anion Gap | 2021-07-20 | [facility] | 7 | mmol/L | (missing) | | | 03:40:32 | [facility] | | | | [facility] | | | | | | | 7th Floor | | | | + + + +-----+ + + + + | Result panel 510 | + + + + + +------+---------+ + | | 2021-07-20 | [facility] | 16 | mg/dL | (missing) | | (unavailable | 03:40:32 | [facility] | [facility] | | [facility] | | | | | | | 7th Floor | | | | + + + +------+---------+ + + + | Result panel 511 | + + + + + +--------+---------+ + | | 2021-07-20 | [facility] | 0.56 | mg/dL | (missing) | | (unavailable | 03:40:32 | [facility] | | [facility] | | | | | | | 7th Floor | | | | + + + +--------+---------+ + + + | Result panel 512 | + + + + + +-------+---------+ + | | 2021-07-20 | [facility] | 267 | mg/dL | (missing) | | (unavailable | 03:40:32 | [facility] | | [facility] | | | | | | | 7th Floor | | | | + + + +-------+---------+ + + + | Result panel 513 | + + + + + +-------+---------+ + | | 2021-07-20 | [facility] | 7.8 | mg/dL | (missing) | | (unavailable | 03:40:32 | [facility] | [facility] | | [facility] | | | | | | | 7th Floor | | | | + + + +-------+---------+ + + + | Result panel 514 | + + + + + +-------+ + + | | 2021-07-20 | [facility] | 5.9 | (missing) | (missing) | | (unavailable | 03:40:32 | [facility] | | [facility] | | | | | | | [facility]th Floor | | | | + + + +-------+ + + + + | Result panel 515 | + + + + + +-------+ + + | | 2021-07-20 | [facility] | 2.9 | (missing) | (missing) | | (unavailable | 03:40:32 | [facility] | | [facility] | | | | | | | [facility]th Floor | | | | + + + +-------+ + + + + | Result panel 516 | + + + + + +------+-------+ + | | 2021-07-20 | [facility] | 21 | U/L | (missing) | | (unavailable | 03:40:32 | [facility] | | [facility] | | | | | | | 7th Floor | | | | + + + +------+-------+ + + + | Result panel 517 | + + + + + + + + + | | 2021-07-20 | [facility] | See Comment | (missing) | (missing) | | (unavailable | 03:40:32 | [facility] | | [facility] | | | | | | | [facility]th Floor | | | | + + + + + + + + + | Result panel 518 | + + + + + +------+-------+ + | | 2021-07-20 | [facility] | 66 | U/L | (missing) | | (unavailable | 03:40:32 | [facility] | | [facility] | | | | | | | 7th Floor | | | | + + + +------+-------+ + + + | Result panel 519 | + + + + + +-------+---------+ + | | 2021-07-20 | [facility] | 0.4 | mg/dL | (missing) | | (unavailable | 03:40:32 | [facility] | | | | | | | [facility] Floor | | | | + + + +-------+---------+ + + + | Result panel 520 | + + + + + + + + + | | 2021-07-20 | [facility] | Abnormal | (missing) | (missing) | | (unavailable | 03:40:32 [facility] | | | | | | | [facility] Floor | | | | + + + + + + + + + | Result panel 521 | + + + + + +-------+---------+ + | | 2021-07-20 | [facility] | 335 | mg/dL | (missing) | | (unavailable | 03:55:22 | [facility] | | | | | | | [facility] Floor | | | | + + + +-------+---------+ + + + | Result panel 522 | + + + + + + + + + | | 2021-07-20 | [facility] | Abnormal | (missing) | (missing) | | (unavailable | 03:55:22 | [facility] | | | | | | | [facility] Floor | | | | + + + + + + + + + | Result panel 523 | + + + + + +-------+---------+ + | | 2021-07-20 | [facility] | 280 | mg/dL | (missing) | | (unavailable | 05:20:17 | [facility] | | | | | | | [facility] Floor | | | | + + + +-------+---------+ + + + | Result panel 524 | + + + + + + + + + | | 2021-07-20 | [facility] | Abnormal | (missing) | (missing) | | (unavailable | 05:20:17 | [facility] | | | | | | | [facility] Floor | | | | + + + + + + + + + | Result panel 525 | + + + + + +-------+---------+ + | | 2021-07-20 | [facility] | 257 | mg/dL | (missing) | | (unavailable | 06:15:28 | [facility] | | | | | | | [facility] Floor | | | | + + + +-------+---------+ + + + | Result panel 526 | + + + + + + + + + | | 2021-07-20 | [facility] | Abnormal | (missing) | (missing) | | (unavailable | 06:15:28 | [facility] | | | | | | [facility] Floor | | | | + + + + + + + + + | Result panel 527 | + + + + + +-------+ + + | | 2021-07-20 | [facility] | 125 | mmol/L | (missing) | | (unavailable | 06:43:55 | [facility] | | | | | | | [facility] Floor | | | | + + + +-------+ + + + + | Result panel 528 | + + + + + + + + + | | 2021-07-20 | [facility] | See Comment | (missing) | (missing) | | (unavailable | 06:43:55 | [facility] | | | | | | | [facility] Floor | | | | + + + + + + + + + | Result panel 529 | + + + + + +------+ + + | | 2021-07-20 | [facility] | 96 | mmol/L | (missing) | | (unavailable | 06:43:55 | [facility] | | | | | | | [facility] Floor | | | | + + + +------+ + + + + | Result panel 530 | + + + + + +------+ + + | | 2021-07-20 | [facility] | 18 | mmol/L | (missing) | | (unavailable | 06:43:55 | [facility] | | | | | | | [facility] Floor | | | | + + + +------+ + + + + | Result panel 531 | + + + + + +------+ + + | Anion Gap | 2021-07-20 | [facility] | 11 | mmol/L | (missing) | | | 06:43:55 | [facility] | | | | | | | [facility]th Floor | | | | + + + +------+ + + + + | Result panel 532 | + + + + + +------+---------+ + | | 2021-07-20 | [facility] | 18 | mg/dL | (missing) | | (unavailable | [facility]43:55 [facility] | | | | | | [facility] | | | | + + + +------+---------+ + + + | Result panel 533 | + + + + + +--------+---------+ + | | 2021-07-20 | [facility] | 0.88 | mg/dL | (missing) | | (unavailable | [facility]:43:55 [facility] | | | | | | [facility] Floor | | | | + + + +--------+---------+ + + + | Result panel 534 | + + + + + +-------+---------+ + | | 2021-07-20 | [facility] | 251 | mg/dL | (missing) | | (unavailable | 06:43:55 [facility] | | | | | | [facility] Floor | | | | + + + +-------+---------+ + + + | Result panel 535 | + + + + + +-------+---------+ + | | 2021-07-20 | [facility] | 7.4 | mg/dL | (missing) | | (unavailable | [facility]:43:55 [facility] | | | | | | [facility] Floor | | | | + + + +-------+---------+ + + + | Result panel 536 | + + + + + +-------+ + + | | 2021-07-20 | [facility] | 5.6 | (missing) | (missing) | | (unavailable | [facility]:43:55 [facility] | | | | | | [facility] | | | | + + + +-------+ + + + + | Result panel 537 | + + + + + +-------+ + + | | 2021-07-20 | [facility] | 2.6 | (missing) | (missing) | | (unavailable | [facility]:43:55 [facility] | | | | | | [facility] Floor | | | | + + + +-------+ + + + + | Result panel 538 | + + + + + +------+-------+ + | | 2021-07-20 | [facility] | 20 | U/L | (missing) | | (unavailable | [facility]:43:55 [facility] | | | | | | [facility] Floor | | | | + + + +------+-------+ + + + | Result panel 539 | + + + + + + + + + | | 2021-07-20 | [facility] | See Comment | (missing) | (missing) | | (unavailable | [facility]:43:55 [facility] | | | | | | [facility] | | | | + + + + + + + + + | Result panel 540 | + + + + + +------+-------+ + | | 2021-07-20 | [facility] | 50 | U/L | (missing) | | (unavailable | [facility]:43:55 [facility] | | | | | | [facility] Floor | | | | + + + +------+-------+ + + + | Result panel 541 | + + + + + +-------+---------+ + | | 2021-07-20 | [facility] | 0.4 | mg/dL | (missing) | | (unavailable | [facility]:43:55 [facility] | | | | | | | [facility] Floor | | | | + + + +-------+---------+ + + + | Result panel 542 | + + + + + + + + + | | 2021-07-20 | [facility] | Abnormal | (missing) | (missing) | | (unavailable | [facility]:43:55 [facility] | | | | | | [facility] Floor | | | | + + + + + + + + + | Result panel 543 | + + + + + +-------+---------+ + | | 2021-07-20 | [facility] | 238 | mg/dL | (missing) | | (unavailable | 07:15:22 | [facility] | | | | | | [facility] Floor | | | | + + + +-------+---------+ + + + | Result panel 544 | + + + + + + + + + | | 2021-07-20 | [facility] | Abnormal | (missing) | (missing) | | (unavailable | 07:15:22 | [facility] | | | | | | | [facility] Floor | | | | + + + + + + + + + | Result panel 545 | + + + + + +-------+ + + | | 2021-07-20 | [facility] | 4.5 | mmol/L | (missing) | | (unavailable | 07:37 | [facility] | | | | | | | [facility] Floor | | | | + + + +-------+ + + + + | Result panel 546 | + + + + + +-------+---------+ + | | 2021-07-20 | [facility] | 234 | mg/dL | (missing) | | (unavailable | 08:20:13 | [facility] | | | | | | | [facility] Floor | | | | + + + +-------+---------+ + + + | Result panel 547 | + + + + + + + + + | | 2021-07-20 | [facility] | Abnormal | (missing) | (missing) | | (unavailable | 08:20:13 | [facility] | | | | | | | [facility] Floor | | | | + + + + + + + + + | Result panel 548 | + + + + + +-------+---------+ + | | 2021-07-20 | [facility] | 235 | mg/dL | (missing) | | (unavailable | 09:20:24 | [facility] | | | | | | | [facility] Floor | | | | + + + +-------+---------+ + + + | Result panel 549 | + + + + + + + + + | | 2021-07-20 | [facility] | Abnormal | (missing) | (missing) | | (unavailable | 09:20:24 | [facility] | | | | | | | [facility] Floor | | | | + + + + + + + + + | Result panel 550 | + + + + + +-------+---------+ + | | 2021-07-20 | [facility] | 272 | mg/dL | (missing) | | (unavailable | 10:15:27 | [facility] | | | | | | | [facility] Floor | | | | + + + +-------+---------+ + + + | Result panel 551 | + + + + + + + + + | | 2021-07-20 | [facility] | Abnormal | (missing) | (missing) | | (unavailable | 10:15:27 | [facility] | | | | | | | [facility] Floor | | | | + + + + + + + + + | Result panel 552 | + + + + + +-------+---------+ + | | 2021-07-20 | [facility] | 261 | mg/dL | (missing) | | (unavailable | 11:20:30 | [facility] | | | | | | | [facility] Floor | | | | + + + +-------+---------+ + + + | Result panel 553 | + + + + + + + + + | | 2021-07-20 | [facility] | Abnormal | (missing) | (missing) | | (unavailable | 11:20:30 | [facility] | | | | | | | [facility] Floor | | | | + + + + + + + + + | Result panel 554 | + + + + + +-------+---------+ + | | 2021-07-20 | [facility] | 221 | mg/dL | (missing) | | (unavailable | 12:25:25 | [facility] | | | | | | | [facility] Floor | | | | + + + +-------+---------+ + + + | Result panel 555 | + + + + + + + + + | | 2021-07-20 | [facility] | Abnormal | (missing) | (missing) | | (unavailable | 12:25:25 | [facility] | | | | | | | [facility] Floor | | | | + + + + + + + + + | Result panel 556 | + + + + + +-------+---------+ + | | 2021-07-20 | [facility] | 200 | mg/dL | (missing) | | (unavailable | 13:30:39 | [facility] | | | | | | | [facility] Floor | | | | + + + +-------+---------+ + + + | Result panel 557 | + + + + + + + + + | | 2021-07-20 | [facility] | Abnormal | (missing) | (missing) | | (unavailable | 13:30:39 | [facility] | | | | | | | [facility] Floor | | | | + + + + + + + + + | Result panel 558 | + + + + + +-------+ + + | | 2021-07-20 | [facility] | 129 | mmol/L | (missing) | | (unavailable | 14:01:08 | [facility] | | | | | | | [facility] Floor | | | | + + + +-------+ + + + + | Result panel 559 | + + + + + +-------+ + + | | 2021-07-20 | [facility] | 4.3 | mmol/L | (missing) | | (unavailable | 14:01:08 | [facility] | | | | | | | [facility] Floor | | | | + + + +-------+ + + + + | Result panel 560 | + + + + + +-------+ + + | | 2021-07-20 | [facility] | 100 | mmol/L | (missing) | | (unavailable | 14:01:08 | [facility] | | | | | | | [facility] Floor | | | | + + + +-------+ + + + + | Result panel 561 | + + + + + +------+ + + | | 2021-07-20 | [facility] | 21 | mmol/L | (missing) | | (unavailable | 14:01:08 | [facility] | | | | | | | [facility] Floor | | | | + + + +------+ + + + + | Result panel 562 | + + + + + +-----+ + + | Anion Gap | 2021-07-20 | [facility] | 8 | mmol/L | (missing) | | | 14:01:08 | [facility] | | | | | | | [facility] Floor | | | | + + + +-----+ + + + + | Result panel 563 | + + + + + +------+---------+ + | | 2021-07-20 | [facility] | 17 | mg/dL | (missing) | | (unavailable | 14:01:08 | [facility] | | | | | | | [facility] Floor | | | | + + + +------+---------+ + + + | Result panel 564 | + + + + + +--------+---------+ + | | 2021-07-20 | [facility] | 0.62 | mg/dL | (missing) | | (unavailable | 14:01:08 | [facility] | | | | | | | [facility] Floor | | | | + + + +--------+---------+ + + + | Result panel 565 | + + + + + +-------+---------+ + | | 2021-07-20 | [facility] | 192 | mg/dL | (missing) | | (unavailable | 14:01:08 | [facility] | | | | | | | [facility] Floor | | | | + + + +-------+---------+ + + + | Result panel 566 | + + + + + +-------+---------+ + | | 2021-07-20 | [facility] | 7.7 | mg/dL | (missing) | | (unavailable | 14:01:08 | [facility] | | | | | | | [facility] Floor | | | | + + + +-------+---------+ + + + | Result panel 567 | + + + + + +-------+ + + | | 2021-07-20 | [facility] | 5.7 | (missing) | (missing) | | (unavailable | 14:01:08 | [facility] | | | | | | | [facility] Floor | | | | + + + +-------+ + + + + | Result panel 568 | + + + + + +-------+ + + | | 2021-07-20 | [facility] | 2.7 | (missing) | (missing) | | (unavailable | 14:01:08 | [facility] | | | | | | | [facility] Floor | | | | + + + +-------+ + + + + | Result panel 569 | + + + + + +------+-------+ + | | 2021-07-20 | [facility] | 17 | U/L | (missing) | | (unavailable | 14:01:08 | [facility] | | | | | | | [facility] Floor | | | | + + + +------+-------+ + + + | Result panel 570 | + + + + + +------+-------+ + | | 2021-07-20 | [facility] | 17 | U/L | (missing) | | (unavailable | 14:01:08 | [facility] | | | | | | | [facility] Floor | | | | + + + +------+-------+ + + + | Result panel 571 | + + + + + +------+-------+ + | | 2021-07-20 | [facility] | 55 | U/L | (missing) | | (unavailable | 14:01:08 | [facility] | | | | | | | [facility] Floor | | | | + + + +------+-------+ + + + | Result panel 572 | + + + + + +-------+---------+ + | | 2021-07-20 | [facility] | 0.3 | mg/dL | (missing) | | (unavailable | 14:01:08 | [facility] | | | | | | | [facility] Floor | | | | + + + +-------+---------+ + + + | Result panel 573 | + + + + + + + + + | | 2021-07-20 | [facility] | Abnormal | (missing) | (missing) | | (unavailable | 14:01:08 | [facility] | | | | | | | [facility] Floor | | | | + + + + + + + + + | Result panel 574 | + + + + + +-------+---------+ + | | 2021-07-20 | [facility] | 196 | mg/dL | (missing) | | (unavailable | 14:45:32 | [facility] | | | | | | | [facility] Floor | | | | + + + +-------+---------+ + + + | Result panel 575 | + + + + + + + + + | | 2021-07-20 | [facility] | Abnormal | (missing) | (missing) | | (unavailable | 14:45:32 | [facility] | | | | | | | [facility] Floor | | | | + + + + + + + + + | Result panel 576 | + + + + + +-------+---------+ + | | 2021-07-20 | [facility] | 281 | mg/dL | (missing) | | (unavailable | 15:45:34 | [facility] | | | | | | | [facility] Floor | | | | + + + +-------+---------+ + + + | Result panel 577 | + + + + + + + + + | | 2021-07-20 | [facility] | Abnormal | (missing) | (missing) | | (unavailable | 15:45:34 | [facility] | | | | | | | [facility] Floor | | | | + + + + + + + + + | Result panel 578 | + + + + + +-------+---------+ + | | 2021-07-20 | [facility] | 336 | mg/dL | (missing) | | (unavailable | 16:40:26 | [facility] | | | | | | | [facility] Floor | | | | + + + +-------+---------+ + + + | Result panel 579 | + + + + + + + + + | | 2021-07-20 | [facility] | Abnormal | (missing) | (missing) | | (unavailable | 16:40:26 | [facility] | | | | | | | [facility] Floor | | | | + + + + + + + + + | Result panel 580 | + + + + + +-------+---------+ + | | 2021-07-20 | [facility] | 271 | mg/dL | (missing) | | (unavailable | 17:45:18 | [facility] | | | | | | | [facility] Floor | | | | + + + +-------+---------+ + + + | Result panel 581 | + + + + + + + + + | | 2021-07-20 | [facility] | Abnormal | (missing) | (missing) | | (unavailable | 17:45:18 | [facility] | | | | | | | [facility] Floor | | | | + + + + + + + + + | Result panel 582 | + + + + + +-------+---------+ + | | 2021-07-20 | [facility] | 189 | mg/dL | (missing) | | (unavailable | 18:45:21 | [facility] | | | | | | | [facility] Floor | | | | + + + +-------+---------+ + + + | Result panel 583 | + + + + + + + + + | | 2021-07-20 | [facility] | Abnormal | (missing) | (missing) | | (unavailable | 18:45:21 | [facility] | | | | | | | [facility] Floor | | | | + + + + + + + + + | Result panel 584 | + + + + + + + + + | | 2021-07-20 | [facility] | (missing) | (missing) | (missing) | | (unavailable | 18:47 | [facility] | | | | | | | [facility] Floor | | | | + + + + + + + + + | Result panel 585 | + + + + + +---------+--------+ + | | 2021-07-20 | [facility] | 0.371 | mU/L | (missing) | | (unavailable | 19:25:48 | [facility] | | | | | | | [facility] Floor | | | | + + + +---------+--------+ + + + | Result panel 586 | + + + + + + + + + | | 2021-07-20 | [facility] | Abnormal | (missing) | (missing) | | (unavailable | 19:25:48 | [facility] | | | | | | | [facility] Floor | | | | + + + + + + + + + | Result panel 587 | + + + + + +-------+---------+ + | | 2021-07-20 | [facility] | 139 | mg/dL | (missing) | | (unavailable | 19:31:12 | [facility] | | | | | | | [facility] Floor | | | | + + + +-------+---------+ + + + | Result panel 588 | + + + + + + + + + | | 2021-07-20 | [facility] | Abnormal | (missing) | (missing) | | (unavailable | 19:31:12 | [facility] | | | | | | | [facility] Floor | | | | + + + + + + + + + | Result panel 589 | + + + + + +--------+---------+ + | | 2021-07-20 | [facility] | 1.21 | ng/dL | (missing) | | (unavailable | 20:17:23 | [facility] | | | | | | | [facility] Floor | | | | + + + +--------+---------+ + + + | Result panel 590 | + + + + + +-------+---------+ + | | 2021-07-20 | [facility] | 206 | mg/dL | (missing) | | (unavailable | 20:45:22 | [facility] | | | | | | | [facility] Floor | | | | + + + +-------+---------+ + + + | Result panel 591 | + + + + + + + + + | | 2021-07-20 | [facility] | Abnormal | (missing) | (missing) | | (unavailable | 20:45:22 | [facility] | | | | | | | [facility] Floor | | | | + + + + + + + + + | Result panel 592 | + + + + + +-------+ + + | | 2021-07-20 | [facility] | 128 | mmol/L | (missing) | | (unavailable | 21:33:49 | [facility] | | | | | | | [facility] Floor | | | | + + + +-------+ + + + + | Result panel 593 | + + + + + +-------+ + + | | 2021-07-20 | [facility] | 4.7 | mmol/L | (missing) | | (unavailable | 21:33:49 | [facility] | | | | | | | [facility] Floor | | | | + + + +-------+ + + + + | Result panel 594 | + + + + + +-------+ + + | | 2021-07-20 | [facility] | 100 | mmol/L | (missing) | | (unavailable | 21:33:49 | [facility] | | | | | | | [facility] Floor | | | | + + + +-------+ + + + + | Result panel 595 | + + + + + +------+ + + | | 2021-07-20 | [facility] | 21 | mmol/L | (missing) | | (unavailable | 21:33:49 | [facility] | | | | | | | [facility] Floor | | | | + + + +------+ + + + + | Result panel 596 | + + + + + +-----+ + + | Anion Gap | 2021-07-20 | [facility] | 7 | mmol/L | (missing) | | | 21:33:49 | [facility] | | | | | | | [facility] Floor | | | | + + + +-----+ + + + + | Result panel 597 | + + + + + +------+---------+ + | | 2021-07-20 | [facility] | 20 | mg/dL | (missing) | | (unavailable | 21:33:49 | [facility] | | | | | | | [facility] Floor | | | | + + + +------+---------+ + + + | Result panel 598 | + + + + + +--------+---------+ + | | 2021-07-20 | [facility] | 0.60 | mg/dL | (missing) | | (unavailable | 21:33:49 | [facility] | | | | | | | [facility] Floor | | | | + + + +--------+---------+ + + + | Result panel 599 | + + + + + +-------+---------+ + | | 2021-07-20 | [facility] | 223 | mg/dL | (missing) | | (unavailable | 21:33:49 | [facility] | | | | | | | [facility] Floor | | | | + + + +-------+---------+ + + + | Result panel 600 | + + + + + +-------+---------+ + | | 2021-07-20 | [facility] | 7.8 | mg/dL | (missing) | | (unavailable | 21:33:49 | [facility] | | | | | | | [facility] Floor | | | | + + + +-------+---------+ + + + | Result panel 601 | + + + + + +-------+ + + | | 2021-07-20 | [facility] | 5.8 | (missing) | (missing) | | (unavailable | 21:33:49 | [facility] | | | | | | | [facility] Floor | | | | + + + +-------+ + + + + | Result panel 602 | + + + + + +-------+ + + | | 2021-07-20 | [facility] | 2.7 | (missing) | (missing) | | (unavailable | 21:33:49 | [facility] | | | | | | | [facility] Floor | | | | + + + +-------+ + + + + | Result panel 603 | + + + + + +------+-------+ + | | 2021-07-20 | [facility] | 17 | U/L | (missing) | | (unavailable | 21:33:49 | [facility] | | | | | | | [facility] Floor | | | | + + + +------+-------+ + + + | Result panel 604 | + + + + + +------+-------+ + | | 2021-07-20 | [facility] | 18 | U/L | (missing) | | (unavailable | 21:33:49 | [facility] | | | | | | | [facility] Floor | | | | + + + +------+-------+ + + + | Result panel 605 | + + + + + +------+-------+ + | | 2021-07-20 | [facility] | 58 | U/L | (missing) | | (unavailable | 21:33:49 | [facility] | | | | | | | [facility]th Floor | | | | + + + +------+-------+ + + + | Result panel 606 | + + + + + +-------+---------+ + | | 2021-07-20 | [facility] | 0.3 | mg/dL | (missing) | | (unavailable | 21:33:49 | [facility] | | | | | | | [facility] Floor | | | | + + + +-------+---------+ + + + | Result panel 607 | + + + + + + + + + | | 2021-07-20 | [facility] | Abnormal | (missing) | (missing) | | (unavailable | 21:33:49 | [facility] | | | | | | | [facility] Floor | | | | + + + + + + + + + | Result panel 608 | + + + + + +-------+---------+ + | | 2021-07-20 | [facility] | 248 | mg/dL | (missing) | | (unavailable | 21:40:25 | [facility] | | | | | | | [facility] Floor | | | | + + + +-------+---------+ + + + | Result panel 609 | + + + + + + + + + | | 2021-07-20 | [facility] | Abnormal | (missing) | (missing) | | (unavailable | 21:40:25 | [facility] | | | | | | | [facility] Floor | | | | + + + + + + + + + | Result panel 610 | + + + + + +-------+---------+ + | | 2021-07-20 | [facility] | 239 | mg/dL | (missing) | | (unavailable | 22:40:32 | [facility] | | | | | | | [facility]th Floor | | | | + + + +-------+---------+ + + + | Result panel 611 | + + + + + + + + + | | 2021-07-20 | [facility] | Abnormal | (missing) | (missing) | | (unavailable | 22:40:32 | [facility] | | | | | | | [facility] Floor | | | | + + + + + + + + + | Result panel 612 | + + + + + +-------+---------+ + | | 2021-07-20 | [facility] | 220 | mg/dL | (missing) | | (unavailable | 23:35:20 | [facility] | | | | | | | [facility] Floor | | | | + + + +-------+---------+ + + + | Result panel 613 | + + + + + + + + + | | 2021-07-20 | [facility] | Abnormal | (missing) | (missing) | | (unavailable | 23:35:20 | [facility] | | | | | | | [facility] Floor | | | | + + + + + + + + + | Result panel 614 | + + + + + +---------+ + + | | 2021-07-20 | [facility] | <0.02 | (missing) | (missing) | | (unavailable | 23:41:07 | [facility] | | | | | | | [facility] Floor | | | | + + + +---------+ + + + + | Result panel 615 | + + + + + +-------+---------+ + | | 2021-07-20 | [facility] | 2.7 | mg/dL | (missing) | | (unavailable | 23:42:49 | [facility] | | | | | | | [facility] Floor | | | | + + + +-------+---------+ + + + | Result panel 616 | + + + + + + + + + | | 2021-07-20 | [facility] | Abnormal | (missing) | (missing) | | (unavailable | 23:42:49 | [facility] | | | | | | | [facility] Floor | | | | + + + + + + + + + | Result panel 617 | + + + + + +------+ + + | | 2021-07-21 | [facility] | 60 | (missing) | (missing) | | (unavailable | 00:38:38 | [facility] | | | | | | | [facility]th Floor | | | | + + + +------+ + + + + | Result panel 618 | + + + + + + + + + | | 2021-07-21 | [facility] | (missing) | (missing) | (missing) | | (unavailable | 00:38:38 | [facility] | | | | | | | [facility] Floor | | | | + + + + + + + + + | Result panel 619 | + + + + + + + + + | | 2021-07-21 | [facility] | (missing) | (missing) | (missing) | | (unavailable | 00:38:38 | [facility] | | | | | | | [facility] Floor | | | | + + + + + + + + + | Result panel 620 | + + + + + + + + + | | 2021-07-21 | [facility] | (missing) | (missing) | (missing) | | (unavailable | 00:38:38 | [facility] | | | | | | | [facility] Floor | | | | + + + + + + + + + | Result panel 621 | + + + + + +-------+---------+ + | | 2021-07-21 | [facility] | 225 | mg/dL | (missing) | | (unavailable | 00:40:16 | [facility] | | | | | | | [facility] Floor | | | | + + + +-------+---------+ + + + | Result panel 622 | + + + + + + + + + | | 2021-07-21 | [facility] | Abnormal | (missing) | (missing) | | (unavailable | 00:40:16 | [facility] | | | | | | | [facility] Floor | | | | + + + + + + + + + | Result panel 623 | + + + + + +------+ + + | VENT RATE | 2021-07-21 | [facility] | 99 | (missing) | (missing) | | | 01:05:16 | [facility] | | | | | | | [facility] Floor | | | | + + + +------+ + + + + | Result panel 624 | + + + + + +------+ + + | ATRIAL RATE | 2021-07-21 | [facility] | 99 | (missing) | (missing) | | | 01:05:16 | [facility] | | | | | | | [facility] Floor | | | | + + + +------+ + + + + | Result panel 625 | + + + + + +-------+------+ + | MS INTERVAL | 2021-07-21 | [facility] | 144 | ms | (missing) | | | 01:05:16 | [facility] | | | | | | | [facility] Floor | | | | + + + +-------+------+ + + + | Result panel 626 | + + + + + +------+------+ + | QRS | 2021-07-21 | [facility] | 88 | ms | (missing) | | DURATION | 01:05:16 | [facility] | | | | | | | [facility] Floor | | | | + + + +------+------+ + + + | Result panel 627 | + + + + + +-------+------+ + | QT INTERVAL | 2021-07-21 | [facility] | 368 | ms | (missing) | | | [facility]05:16 [facility] | | | | | | [facility] | | | | + + + +-------+------+ + + + | Result panel 628 | + + +-------+ + +-------+------+ + | QTC | 2021-07-21 | [facility] | 472 | ms | (missing) | | | 01:05:16 [facility] | | | | | | [facility] | | | | +-------+ + +-------+------+ + + + | Result panel 629 | + + + + + +------+ + + | P AXIS | 2021-07-21 | [facility] | 48 | (missing) | (missing) | | | 01:05:16 [facility] | | | | | | [facility] | | | | + + + +------+ + + + + | Result panel 630 | + + + + + +-----+ + + | R AXIS | 2021-07-21 | [facility] | 6 | (missing) | (missing) | | | [facility]:05:16 [facility] | | | | | | [facility] | | | | + + + +-----+ + + + + | Result panel 631 | + + + + + +------+ + + | T AXIS | 2021-07-21 | [facility] | 39 | (missing) | (missing) | | | 01:05:16 [facility] | | | | | | [facility] | | | | + + + +------+ + + + + | Result panel 632 | + + + + + + + + + | | 2021-07-21 | [facility] | (missing) | (missing) | (missing) | | (unavailable | [facility]05:16 [facility] | | | | | | [facility] | | | | + + + + + + + + + | Result panel 633 | + + + + + +-------+---------+ + | | 2021-07-21 | [facility] | 260 | mg/dL | (missing) | | (unavailable | 01:45:16 | [facility] | | | | | | | [facility] Floor | | | | + + + +-------+---------+ + + + | Result panel 634 | + + + + + + + + + | | 2021-07-21 | [facility] | Abnormal | (missing) | (missing) | | (unavailable | [facility]:45:16 [facility] | | | | | | [facility] | | | | + + + + + + + + + | Result panel 635 | + + + + + +-------+---------+ + | | 2021-07-21 | [facility] | 209 | mg/dL | (missing) | | (unavailable | 02:55:36 | [facility] | | | | | | | [facility] Floor | | | | + + + +-------+---------+ + + + | Result panel 636 | + + + + + + + + + | | 2021-07-21 | [facility] | Abnormal | (missing) | (missing) | | (unavailable | 02:55:36 | [facility] | | | | | | [facility] | | | | + + + + + + + + + | Result panel 637 | + + + + + +-------+---------+ + | | 2021-07-21 | [facility] | 188 | mg/dL | (missing) | | (unavailable | 03:50:21 | [facility] | | | | | | | [facility] Floor | | | | + + + +-------+---------+ + + + | Result panel 638 | + + + + + + + + + | | 2021-07-21 | [facility] | Abnormal | (missing) | (missing) | | (unavailable | 03:50:21 | [facility] | | | | | | | [facility] Floor | | | | + + + + + + + + + | Result panel 639 | + + + + + +-------+---------+ + | | 2021-07-21 | [facility] | 194 | mg/dL | (missing) | | (unavailable | 05:00:26 | [facility] [facility] | | | | | | | [facility]th Floor | | | | + + + +-------+---------+ + + + | Result panel 640 | + + + + + + + + + | | 2021-07-21 | [facility] | Abnormal | (missing) | (missing) | | (unavailable | [facility]:00:26 [facility] | | | | | | | [facility] Floor | | | | + + + + + + + + + | Result panel 641 | + + + + + + + + + | | 2021-07-21 | [facility] | (missing) | (missing) | (missing) | | (unavailable | 05:36 | [facility] | | | | | | | [facility]th Floor | | | | + + + + + + + + + | Result panel 642 | + + + + + +-------+---------+ + | | 2021-07-21 | [facility] | 203 | mg/dL | (missing) | | (unavailable | 05:50:13 | [facility] | | | | | | | [facility]th Floor | | | | + + + +-------+---------+ + + + | Result panel 643 | + + + + + + + + + | | 2021-07-21 | [facility] | Abnormal | (missing) | (missing) | | (unavailable | 05:50:13 | [facility] | | | | | | | [facility] Floor | | | | + + + + + + + + + | Result panel 644 | + + + + + +-------+---------+ + | | 2021-07-21 | [facility] | 185 | mg/dL | (missing) | | (unavailable | 06:50:26 | [facility] | | | | | | | [facility]th Floor | | | | + + + +-------+---------+ + + + | Result panel 645 | + + + + + + + + + | | 2021-07-21 | [facility] | Abnormal | (missing) | (missing) | | (unavailable | 06:50:26 | [facility] | | | | | | | [facility]th Floor | | | | + + + + + + + + + | Result panel 646 | + + + + + +-------+---------+ + | | 2021-07-21 | [facility] | 216 | mg/dL | (missing) | | (unavailable | 07:40:32 | [facility] | | | | | | | [facility]th Floor | | | | + + + +-------+---------+ + + + | Result panel 647 | + + + + + + + + + | | 2021-07-21 | [facility] | Abnormal | (missing) | (missing) | | (unavailable | 07:40:32 | [facility] | | | | | | | [facility] Floor | | | | + + + + + + + + + | Result panel 648 | + + + + + +---------+ + + | | 2021-07-21 | [facility] | <0.02 | (missing) | (missing) | | (unavailable | 08:00:42 | [facility] | | | | | | | [facility]th Floor | | | | + + + +---------+ + + + + | Result panel 649 | + + + + + +-------+---------+ + | | 2021-07-21 | [facility] | 217 | mg/dL | (missing) | | (unavailable | 08:55:12 | [facility] | | | | | | | [facility]th Floor | | | | + + + +-------+---------+ + + + | Result panel 650 | + + + + + + + + + | | 2021-07-21 | [facility] | Abnormal | (missing) | (missing) | | (unavailable | 08:55:12 | [facility] | | | | | | | [facility]th Floor | | | | + + + + + + + + + | Result panel 651 | + + + + + +-------+---------+ + | | 2021-07-21 | [facility] | 203 | mg/dL | (missing) | | (unavailable | 09:55:14 | [facility] | | | | | | | [facility]th Floor | | | | + + + +-------+---------+ + + + | Result panel 652 | + + + + + + + + + | | 2021-07-21 | [facility] | Abnormal | (missing) | (missing) | | (unavailable | 09:55:14 | [facility] | | | | | | | [facility]th Floor | | | | + + + + + + + + + | Result panel 653 | + + + + + +-------+---------+ + | | 2021-07-21 | [facility] | 199 | mg/dL | (missing) | | (unavailable | 10:45:18 | [facility] | | | | | | | [facility]th Floor | | | | + + + +-------+---------+ + + + | Result panel 654 | + + + + + + + + + | | 2021-07-21 | [facility] | Abnormal | (missing) | (missing) | | (unavailable | 10:45:18 | [facility] | | | | | | | [facility]th Floor | | | | + + + + + + + + + | Result panel 655 | + + + + + +-------+---------+ + | | 2021-07-21 | [facility] | 212 | mg/dL | (missing) | | (unavailable | 12:00:20 | [facility] | | | | | | | [facility]th Floor | | | | + + + +-------+---------+ + + + | Result panel 656 | + + + + + + + + + | | 2021-07-21 | [facility] | Abnormal | (missing) | (missing) | | (unavailable | 12:00:20 | [facility] | | | | | | | [facility]th Floor | | | | + + + + + + + + + | Result panel 657 | + + + + + +-------+---------+ + | | 2021-07-21 | [facility] | 209 | mg/dL | (missing) | | (unavailable | 12:55:12 | [facility] | | | | | | | [facility]th Floor | | | | + + + +-------+---------+ + + + | Result panel 658 | + + + + + + + + + | | 2021-07-21 | [facility] | Abnormal | (missing) | (missing) | | (unavailable | 12:55:12 | [facility] | | | | | | | [facility]th Floor | | | | + + + + + + + + + | Result panel 659 | + + + + + +-------+---------+ + | | 2021-07-21 | [facility] | 237 | mg/dL | (missing) | | (unavailable | 13:50:26 | [facility] | | | | | | | [facility]th Floor | | | | + + + +-------+---------+ + + + | Result panel 660 | + + + + + + + + + | | 2021-07-21 | [facility] | Abnormal | (missing) | (missing) | | (unavailable | 13:50:26 | [facility] | | | | | | | [facility]th Floor | | | | + + + + + + + + + | Result panel 661 | + + + + + +-------+ + + | | 2021-07-21 | [facility] | 130 | mmol/L | (missing) | | (unavailable | 14:18:39 | [facility] | | | | | | | [facility]th Floor | | | | + + + +-------+ + + + + | Result panel 662 | + + + + + +-------+ + + | | 2021-07-21 | [facility] | 4.4 | mmol/L | (missing) | | (unavailable | 14:18:39 | [facility] | | | | | | | [facility]th Floor | | | | + + + +-------+ + + + + | Result panel 663 | + + + + + +-------+ + + | | 2021-07-21 | [facility] | 102 | mmol/L | (missing) | | (unavailable | 14:18:39 | [facility] | | | | | | | [facility]th Floor | | | | + + + +-------+ + + + + | Result panel 664 | + + + + + +------+ + + | | 2021-07-21 | [facility] | 19 | mmol/L | (missing) | | (unavailable | 14:18:39 | [facility] | | | | | | | [facility]th Floor | | | | + + + +------+ + + + + | Result panel 665 | + + + + + +-----+ + + | Anion Gap | 2021-07-21 | [facility] | 9 | mmol/L | (missing) | | | 14:18:39 | [facility] | | | | | | | [facility]th Floor | | | | + + + +-----+ + + + + | Result panel 666 | + + + + + +------+---------+ + | | 2021-07-21 | [facility] | 24 | mg/dL | (missing) | | (unavailable | 14:18:39 | [facility] | | | | | | | [facility]th Floor | | | | + + + +------+---------+ + + + | Result panel 667 | + + + + + +--------+---------+ + | | 2021-07-21 | [facility] | 0.69 | mg/dL | (missing) | | (unavailable | 14:18:39 | [facility] | | | | | | | [facility]th Floor | | | | + + + +--------+---------+ + + + | Result panel 668 | + + + + + +-------+---------+ + | | 2021-07-21 | [facility] | 229 | mg/dL | (missing) | | (unavailable | 14:18:39 | [facility] | | | | | | | [facility]th Floor | | | | + + + +-------+---------+ + + + | Result panel 669 | + + + + + +-------+---------+ + | | 2021-07-21 | [facility] | 8.6 | mg/dL | (missing) | | (unavailable | 14:18:39 | [facility] | | | | | | | [facility]th Floor | | | | + + + +-------+---------+ + + + | Result panel 670 | + + + + + +-------+ + + | | 2021-07-21 | [facility] | 5.8 | (missing) | (missing) | | (unavailable | 14:18:39 | [facility] | | | | | | | [facility]th Floor | | | | + + + +-------+ + + + + | Result panel 671 | + + + + + +-------+ + + | | 2021-07-21 | [facility] | 2.8 | (missing) | (missing) | | (unavailable | 14:18:39 | [facility] | | | | | | | [facility]th Floor | | | | + + + +-------+ + + + + | Result panel 672 | + + + + + +------+-------+ + | | 2021-07-21 | [facility] | 18 | U/L | (missing) | | (unavailable | 14:18:39 | [facility] | | | | | | | [facility]th Floor | | | | + + + +------+-------+ + + + | Result panel 673 | + + + + + +------+-------+ + | | 2021-07-21 | [facility] | 18 | U/L | (missing) | | (unavailable | 14:18:39 | [facility] | | | | | | | [facility]th Floor | | | | + + + +------+-------+ + + + | Result panel 674 | + + + + + +------+-------+ + | | 2021-07-21 | [facility] | 52 | U/L | (missing) | | (unavailable | 14:18:39 | [facility] | | | | | | | [facility]th Floor | | | | + + + +------+-------+ + + + | Result panel 675 | + + + + + +-------+---------+ + | | 2021-07-21 | [facility] | 0.3 | mg/dL | (missing) | | (unavailable | 14:18:39 | [facility] | | | | | | | [facility]th Floor | | | | + + + +-------+---------+ + + + | Result panel 676 | + + + + + + + + + | | 2021-07-21 | [facility] | Abnormal | (missing) | (missing) | | (unavailable | 14:18:39 | [facility] | | | | | | | [facility]th Floor | | | | + + + + + + + + + | Result panel 677 | + + + + + +-------+---------+ + | | 2021-07-21 | [facility] | 219 | mg/dL | (missing) | | (unavailable | 15:05:27 | [facility] | | | | | | | [facility]th Floor | | | | + + + +-------+---------+ + + + | Result panel 678 | + + + + + + + + + | | 2021-07-21 | [facility] | Abnormal | (missing) | (missing) | | (unavailable | 15:05:27 | [facility] | | | | | | | [facility]th Floor | | | | + + + + + + + + + | Result panel 679 | + + + + + +-------+---------+ + | | 2021-07-21 | [facility] | 292 | mg/dL | (missing) | | (unavailable | 16:05:33 | [facility] | | | | | | | [facility]th Floor | | | | + + + +-------+---------+ + + + | Result panel 680 | + + + + + + + + + | | 2021-07-21 | [facility] | Abnormal | (missing) | (missing) | | (unavailable | 16:05:33 | [facility] | | | | | | | [facility]th Floor | | | | + + + + + + + + + | Result panel 681 | + + + + + +-------+---------+ + | | 2021-07-21 | [facility] | 250 | mg/dL | (missing) | | (unavailable | 17:00:22 | [facility] | | | | | | | [facility]th Floor | | | | + + + +-------+---------+ + + + | Result panel 682 | + + + + + + + + + | | 2021-07-21 | [facility] | Abnormal | (missing) | (missing) | | (unavailable | 17:00:22 | [facility] | | | | | | | [facility]th Floor | | | | + + + + + + + + + | Result panel 683 | + + + + + +-------+---------+ + | | 2021-07-21 | [facility] | 184 | mg/dL | (missing) | | (unavailable | 19:00:18 | [facility] | | | | | | | [facility]th Floor | | | | + + + +-------+---------+ + + + | Result panel 684 | + + + + + + + + + | | 2021-07-21 | [facility] | Abnormal | (missing) | (missing) | | (unavailable | 19:00:18 | [facility] | | | | | | | [facility]th Floor | | | | + + + + + + + + + | Result panel 685 | + + + + + +-------+---------+ + | | 2021-07-21 | [facility] | 166 | mg/dL | (missing) | | (unavailable | 19:15:32 | [facility] | | | | | | | [facility]th Floor | | | | + + + +-------+---------+ + + + | Result panel 686 | + + + + + + + + + | | 2021-07-21 | [facility] | Abnormal | (missing) | (missing) | | (unavailable | 19:15:32 | [facility] | | | | | | | [facility]th Floor | | | | + + + + + + + + + | Result panel 687 | + + + + + +-------+---------+ + | | 2021-07-21 | [facility] | 211 | mg/dL | (missing) | | (unavailable | 20:10:34 | [facility] | | | | | | | [facility]th Floor | | | | + + + +-------+---------+ + + + | Result panel 688 | + + + + + + + + + | | 2021-07-21 | [facility] | Abnormal | (missing) | (missing) | | (unavailable | 20:10:34 | [facility] | | | | | | | [facility]th Floor | | | | + + + + + + + + + | Result panel 689 | + + + + + +-------+---------+ + | | 2021-07-21 | [facility] | 244 | mg/dL | (missing) | | (unavailable | 21:10:14 | [facility] | | | | | | | [facility]th Floor | | | | + + + +-------+---------+ + + + | Result panel 690 | + + + + + + + + + | | 2021-07-21 | [facility] | Abnormal | (missing) | (missing) | | (unavailable | 21:10:14 | [facility] | | | | | | | [facility]th Floor | | | | + + + + + + + + + | Result panel 691 | + + + + + +-------+---------+ + | | 2021-07-21 | [facility] | 191 | mg/dL | (missing) | | (unavailable | 22:05:26 | [facility] | | | | | | | [facility]th Floor | | | | + + + +-------+---------+ + + + | Result panel 692 | + + + + + + + + + | | 2021-07-21 | [facility] | Abnormal | (missing) | (missing) | | (unavailable | 22:05:26 | [facility] | | | | | | | [facility]th Floor | | | | + + + + + + + + + | Result panel 693 | + + + + + +-------+---------+ + | | 2021-07-21 | [facility] | 166 | mg/dL | (missing) | | (unavailable | 23:15:19 | [facility] | | | | | | | [facility]th Floor | | | | + + + +-------+---------+ + + + | Result panel 694 | + + + + + + + + + | | 2021-07-21 | [facility] | Abnormal | (missing) | (missing) | | (unavailable | 23:15:19 | [facility] | | | | | | | [facility]th Floor | | | | + + + + + + + + + | Result panel 695 | + + + + + +-------+---------+ + | | 2021-07-22 | [facility] | 150 | mg/dL | (missing) | | (unavailable | 00:15:17 | [facility] | | | | | | | [facility]th Floor | | | | + + + +-------+---------+ + + + | Result panel 696 | + + + + + + + + + | | 2021-07-22 | [facility] | Abnormal | (missing) | (missing) | | (unavailable | 00:15:17 | [facility] | | | | | | | [facility]th Floor | | | | + + + + + + + + + | Result panel 697 | + + + + + +-------+---------+ + | | 2021-07-22 | [facility] | 171 | mg/dL | (missing) | | (unavailable | 01:10:26 | [facility] | | | | | | | [facility]th Floor | | | | + + + +-------+---------+ + + + | Result panel 698 | + + + + + + + + + | | 2021-07-22 | [facility] | Abnormal | (missing) | (missing) | | (unavailable | 01:10:26 | [facility] | | | | | | | 7th Floor | | | | + + + + + + + + + | Result panel 699 | + + + + + +-------+---------+ + | | 2021-07-22 | [facility] | 249 | mg/dL | (missing) | | (unavailable | 02:20:26 | [facility] | | | | | | | 7th Floor | | | | + + + +-------+---------+ + + + | Result panel 700 | + + + + + + + + + | | 2021-07-22 | [facility] | Abnormal | (missing) | (missing) | | (unavailable | 02:20:26 | [facility] | | | | | | | [facility]th Floor | | | | + + + + + + + + + | Result panel 701 | + + + + + +-------+---------+ + | | 2021-07-22 | [facility] | 251 | mg/dL | (missing) | | (unavailable | 03:15:16 | [facility] | | | | | | | [facility]th Floor | | | | + + + +-------+---------+ + + + | Result panel 702 | + + + + + + + + + | | 2021-07-22 | [facility] | Abnormal | (missing) | (missing) | | (unavailable | 03:15:16 | [facility] | | | | | | | [facility]th Floor | | | | + + + + + + + + + | Result panel 703 | + + + + + +-------+---------+ + | | 2021-07-22 | [facility] | 259 | mg/dL | (missing) | | (unavailable | 04:10:22 | [facility] | | | | | | | [facility]th Floor | | | | + + + +-------+---------+ + + + | Result panel 704 | + + + + + + + + + | | 2021-07-22 | [facility] | Abnormal | (missing) | (missing) | | (unavailable | 04:10:22 | [facility] | | | | | | | [facility]th Floor | | | | + + + + + + + + + | Result panel 705 | + + + + + +-------+---------+ + | | 2021-07-22 | [facility] | 265 | mg/dL | (missing) | | (unavailable | 05:20:30 | [facility] | | | | | | | [facility]th Floor | | | | + + + +-------+---------+ + + + | Result panel 706 | + + + + + + + + + | | 2021-07-22 | [facility] | Abnormal | (missing) | (missing) | | (unavailable | 05:20:30 | [facility] | | | | | | | [facility]th Floor | | | | + + + + + + + + + | Result panel 707 | + + + + + +-------+---------+ + | | 2021-07-22 | [facility] | 228 | mg/dL | (missing) | | (unavailable | 06:15:15 | [facility] | | | | | | | 7th Floor | | | | + + + +-------+---------+ + + + | Result panel 708 | + + + + + + + + + | | 2021-07-22 | [facility] | Abnormal | (missing) | (missing) | | (unavailable | 06:15:15 | [facility] | | | | | | | [facility]th Floor | | | | + + + + + + + + + | Result panel 709 | + + + + + +-------+---------+ + | | 2021-07-22 | [facility] | 239 | mg/dL | (missing) | | (unavailable | 07:25:30 | [facility] | | | | | | | 7th Floor | | | | + + + +-------+---------+ + + + | Result panel 710 | + + + + + + + + + | | 2021-07-22 | [facility] | Abnormal | (missing) | (missing) | | (unavailable | 07:25:30 | [facility] | | | | | | | [facility]th Floor | | | | + + + + + + + + + | Result panel 711 | + + + + + +-------+---------+ + | | 2021-07-22 | [facility] | 219 | mg/dL | (missing) | | (unavailable | 08:10:17 | [facility] | | | | | | | [facility]th Floor | | | | + + + +-------+---------+ + + + | Result panel 712 | + + + + + + + + + | | 2021-07-22 | [facility] | Abnormal | (missing) | (missing) | | (unavailable | 08:10:17 | [facility] | | | | | | | [facility]th Floor | | | | + + + + + + + + + | Result panel 713 | + + + + + +-------+---------+ + | | 2021-07-22 | [facility] | 256 | mg/dL | (missing) | | (unavailable | 09:15:27 | [facility] | [facility] | | | | | | | [facility]th Floor | | | | + + + +-------+---------+ + + + | Result panel 714 | + + + + + + + + + | | 2021-07-22 | [facility] | Abnormal | (missing) | (missing) | | (unavailable | 09:15:27 | [facility] | | | | | | | [facility]th Floor | | | | + + + + + + + + + | Result panel 715 | + + + + + +-------+---------+ + | | 2021-07-22 | [facility] | 282 | mg/dL | (missing) | | (unavailable | 10:20:22 | [facility] | [facility] | | | | | | | [facility]th Floor | | | | + + + +-------+---------+ + + + | Result panel 716 | + + + + + + + + + | | 2021-07-22 | [facility] | Abnormal | (missing) | (missing) | | (unavailable | 10:20:22 | [facility] | [facility] | | | | | | | [facility]th Floor | | | | + + + + + + + + + | Result panel 717 | + + + + + +-------+---------+ + | | 2021-07-22 | [facility] | 254 | mg/dL | (missing) | | (unavailable | 11:20:16 | [facility] | [facility] | | | | | | | [facility]th Floor | | | | + + + +-------+---------+ + + + | Result panel 718 | + + + + + + + + + | | 2021-07-22 | [facility] | Abnormal | (missing) | (missing) | | (unavailable | 11:20:16 | [facility] | [facility] | | | | | | | [facility]th Floor | | | | + + + + + + + + + | Result panel 719 | + + + + + +-------+---------+ + | | 2021-07-22 | [facility] | 225 | mg/dL | (missing) | | (unavailable | 12:20:29 | [facility] | | [facility] | | | | | | | [facility]th Floor | | | | + + + +-------+---------+ + + + | Result panel 720 | + + + + + + + + + | | 2021-07-22 | [facility] | Abnormal | (missing) | (missing) | | (unavailable | 12:20:29 | [facility] | | [facility] | | | | | | | [facility]th Floor | | | | + + + + + + + + + | Result panel 721 | + + + + + + + + + | Spec | 2021-07-22 | [facility] | | (missing) | (missing) | | Rejection | 12:35:12 | [facility] | Unacceptable | | | | Reason | | [facility] | | | | | | | [facility]th Floor | | | | + + + + + + + + + | Result panel 722 | + + + + + + + + + | Action | 2021-07-22 | [facility] | Recollect | (missing) | (missing) | | Required | 12:35:12 | [facility] | | [facility] | | | | | | | [facility]th Floor | | | | + + + + + + + + + | Result panel 723 | + + + + + + + + + | | 2021-07-22 | [facility] | Abnormal | (missing) | (missing) | | (unavailable | 12:35:12 | [facility] | | [facility] | | | | | | | [facility]th Floor | | | | + + + + + + + + + | Result panel 724 | + + + + + +---------+ + + | | 2021-07-22 | [facility] | 11.30 | (missing) | (missing) | | (unavailable | 12:38:59 | [facility] | [facility] | | | | | | | [facility]th Floor | | | | + + + +---------+ + + + + | Result panel 725 | + + + + + +--------+ + + | | 2021-07-22 | [facility] | 4.02 | (missing) | (missing) | | (unavailable | 12:38:59 | [facility] | | [facility] | | | | | | | [facility]th Floor | | | | + + + +--------+ + + + + | Result panel 726 | + + + + + +--------+ + + | | 2021-07-22 | [facility] | 11.6 | (missing) | (missing) | | (unavailable | 12:38:59 | [facility] | | [facility] | | | | | | | [facility]th Floor | | | | + + + +--------+ + + + + | Result panel 727 | + + + + + +--------+-----+ + | | 2021-07-22 | [facility] | 36.5 | % | (missing) | | (unavailable | 12:38:59 | [facility] | [facility] | | | | | | | [facility]th Floor | | | | + + + +--------+-----+ + + + | Result panel 728 | + + + + + +--------+------+ + | | 2021-07-22 | [facility] | 90.8 | fL | (missing) | | (unavailable | 12:38:59 | [facility] | [facility] | | | | | | | 7th Floor | | | | + + + +--------+------+ + + + | Result panel 729 | + + + + + +--------+------+ + | | 2021-07-22 | [facility] | 28.9 | pg | (missing) | | (unavailable | 12:38:59 | [facility] | [facility] | | | | | | | [facility]th Floor | | | | + + + +--------+------+ + + + | Result panel 730 | + + + + + +--------+ + + | | 2021-07-22 | [facility] | 31.8 | (missing) | (missing) | | (unavailable | 12:38:59 | [facility] | | | | | | | [facility]th Floor | | | | + + + +--------+ + + + + | Result panel 731 | + + + + + +--------+-----+ + | | 2021-07-22 | [facility] | 14.4 | % | (missing) | | (unavailable | 12:38:59 | [facility] | [facility] | | | | | | | 7th Floor | | | | + + + +--------+-----+ + + + | Result panel 732 | + + + + + +-------+ + + | | 2021-07-22 | [facility] | 233 | (missing) | (missing) | | (unavailable | 12:38:59 | [facility] | [facility] | | | | | | | [facility]th Floor | | | | + + + +-------+ + + + + | Result panel 733 | + + + + + +-------+------+ + | | 2021-07-22 | [facility] | 9.0 | fL | (missing) | | (unavailable | 12:38:59 | [facility] | [facility] | | | | | | | [facility]th Floor | | | | + + + +-------+------+ + + + | Result panel 734 | + + + + + +-------+ + + | | 2021-07-22 | [facility] | 0.0 | (missing) | (missing) | | (unavailable | 12:38:59 | [facility] | [facility] | | | | | | | [facility]th Floor | | | | + + + +-------+ + + + + | Result panel 735 | + + + + + +--------+ + + | | 2021-07-22 | [facility] | 0.00 | (missing) | (missing) | | (unavailable | 12:38:59 | [facility] | | | | | | | 7th Floor | | | | + + + +--------+ + + + + | Result panel 736 | + + + + + + + + + | | 2021-07-22 | [facility] | Abnormal | (missing) | (missing) | | (unavailable | 12:38:59 | [facility] | | | | | | | [facility]th Floor | | | | + + + + + + + + + | Result panel 737 | + + + + + +-------+---------+ + | | 2021-07-22 | [facility] | 190 | mg/dL | (missing) | | (unavailable | 13:20:30 | [facility] | | | | | | | 7th Floor | | | | + + + +-------+---------+ + + + | Result panel 738 | + + + + + + + + + | | 2021-07-22 | [facility] | Abnormal | (missing) | (missing) | | (unavailable | 13:20:30 | [facility] | | | | | | | [facility]th Floor | | | | + + + + + + + + + | Result panel 739 | + + + + + +---------+ + + | [facility] | 2021-07-22 | [facility] | A POS | (missing) | (missing) | | | 14:03:10 | [facility] | | | | | | | 7th Floor | | | | + + + +---------+ + + + + | Result panel 740 | + + + + + +-------+---------+ + | | 2021-07-22 | [facility] | 151 | mg/dL | (missing) | | (unavailable | 14:20:17 | [facility] | | | | | | | 7th Floor | | | | + + + +-------+---------+ + + + | Result panel 741 | + + + + + + + + + | | 2021-07-22 | [facility] | Abnormal | (missing) | (missing) | | (unavailable | 14:20:17 | [facility] | | | | | | | [facility]th Floor | | | | + + + + + + + + + | Result panel 742 | + + + + + + + + + | Antibody | 2021-07-22 | [facility] | Negative | (missing) | (missing) | | Screen | 14:31:42 | [facility] | | | | | | [facility] | | | | | | | 7th Floor | | | | + + + + + + + + + | Result panel 743 | + + + + + +---------+ + + | Type & | 2021-07-22 | [facility] | Ready | (missing) | (missing) | | Screen | 14:31:43 | [facility] | | | Request | | [facility] | | | | | | | 7th Floor | | | | + + + +---------+ + + + + | Result panel 744 | + + + + + +-------+ + + | | 2021-07-22 | [facility] | 134 | mmol/L | (missing) | | (unavailable | 15:04:31 | [facility] | | | | | | | 7th Floor | | | | + + + +-------+ + + + + | Result panel 745 | + + + + + +-------+ + + | | 2021-07-22 | [facility] | 4.3 | mmol/L | (missing) | | (unavailable | 15:04:31 | [facility] | | | | | | | 7th Floor | | | | + + + +-------+ + + + + | Result panel 746 | + + + + + +-------+ + + | | 2021-07-22 | [facility] | 103 | mmol/L | (missing) | | (unavailable | 15:04:31 | [facility] | [facility] | | | | | | | 7th Floor | | | | + + + +-------+ + + + + | Result panel 747 | + + + + + +------+ + + | | 2021-07-22 | [facility] | 22 | mmol/L | (missing) | | (unavailable | [facility]31 [facility] | | | | | [facility] | | | | + + + +------+ + + + + | Result panel 748 | + + + + + +-----+ + + | Anion Gap | 2021-07-22 | [facility] | 9 | mmol/L | (missing) | | | 15:04:31 [facility] | | | | | | | [facility] Floor | | | | + + + +-----+ + + + + | Result panel 749 | + + + + + +------+---------+ + | | 2021-07-22 | [facility] | 25 | mg/dL | (missing) | | (unavailable | 15:04:31 [facility] | | | | | | [facility] Floor | | | | + + + +------+---------+ + + + | Result panel 750 | + + + + + +--------+---------+ + | | 2021-07-22 | [facility] | 0.56 | mg/dL | (missing) | | (unavailable | 15:04:31 [facility] | | | | | | | [facility] Floor | | | | + + + +--------+---------+ + + + | Result panel 751 | + + + + + +-------+---------+ + | | 2021-07-22 | [facility] | 169 | mg/dL | (missing) | | (unavailable | 15:04:31 [facility] | | | | | | [facility] Floor | | | | + + + +-------+---------+ + + + | Result panel 752 | + + + + + +-------+---------+ + | | 2021-07-22 | [facility] | 8.7 | mg/dL | (missing) | | (unavailable | 15:04:31 [facility] | | | | | | [facility] Floor | | | | + + + +-------+---------+ + + + | Result panel 753 | + + + + + +-------+ + + | | 2021-07-22 | [facility] | 5.2 | (missing) | (missing) | | (unavailable | 15:04:31 [facility] | | | | | | [facility] Floor | | | | + + + +-------+ + + + + | Result panel 754 | + + + + + +-------+ + + | | 2021-07-22 | [facility] | 2.7 | (missing) | (missing) | | (unavailable | 15:04:31 [facility] | | | | | | [facility] Floor | | | | + + + +-------+ + + + + | Result panel 755 | + + + + + +------+-------+ + | | 2021-07-22 | [facility] | 18 | U/L | (missing) | | (unavailable | 15:04:31 [facility] | | | | | | [facility] Floor | | | | + + + +------+-------+ + + + | Result panel 756 | + + + + + +------+-------+ + | | 2021-07-22 | [facility] | 20 | U/L | (missing) | | (unavailable | 15:04:31 [facility] | | | | | | | [facility] Floor | | | | + + + +------+-------+ + + + | Result panel 757 | + + + + + +------+-------+ + | | 2021-07-22 | [facility] | 49 | U/L | (missing) | | (unavailable | 15:04:31 [facility] | | | | | | | [facility] Floor | | | | + + + +------+-------+ + + + | Result panel 758 | + + + + + +-------+---------+ + | | 2021-07-22 | [facility] | 0.3 | mg/dL | (missing) | | (unavailable | 15:04:31 [facility] | | | | | | | [facility] Floor | | | | + + + +-------+---------+ + + + | Result panel 759 | + + + + + + + + + | | 2021-07-22 | [facility] | Abnormal | (missing) | (missing) | | (unavailable | 15:04:31 [facility] | | | | | | | [facility] Floor | | | | + + + + + + + + + | Result panel 760 | + + +---------+ + + + + + | Final | 2021-07-22 | [facility] | (missing) | (missing) | (missing) | | Report | 15:20:09 | [facility] | | | | | | | [facility] Floor | | | | +---------+ + + + + + + + | Result panel 761 | + + + + + +-------+---------+ + | | 2021-07-22 | [facility] | 189 | mg/dL | (missing) | | (unavailable | 15:25:29 [facility] | | | | | | | [facility] Floor | | | | + + + +-------+---------+ + + + | Result panel 762 | + + + + + + + + + | | 2021-07-22 | [facility] | Abnormal | (missing) | (missing) | | (unavailable | 15:25:29 [facility] | | | | | | | [facility] Floor | | | | + + + + + + + + + | Result panel 763 | + + + + + +-------+---------+ + | | 2021-07-22 | [facility] | 235 | mg/dL | (missing) | | (unavailable | 16:15:40 [facility] | | | | | | | [facility] Floor | | | | + + + +-------+---------+ + + + | Result panel 764 | + + + + + + + + + | | 2021-07-22 | [facility] | Abnormal | (missing) | (missing) | | (unavailable | 16:15:40 [facility] | | | | | | | [facility] Floor | | | | + + + + + + + + + | Result panel 765 | + + + + + +-------+---------+ + | | 2021-07-22 | [facility] | 233 | mg/dL | (missing) | | (unavailable | 17:15:21 | [facility] | | | | | | | [facility] Floor | | | | + + + +-------+---------+ + + + | Result panel 766 | + + + + + + + + + | | 2021-07-22 | [facility] | Abnormal | (missing) | (missing) | | (unavailable | 17:15:21 | [facility] | | | | | | | [facility] Floor | | | | + + + + + + + + + | Result panel 767 | + + + + + +-------+---------+ + | | 2021-07-22 | [facility] | 227 | mg/dL | (missing) | | (unavailable | 18:20:36 [facility] | | | | | | | [facility]th Floor | | | | + + + +-------+---------+ + + + | Result panel 768 | + + + + + + + + + | | 2021-07-22 | [facility] | Abnormal | (missing) | (missing) | | (unavailable | 18:20:36 | [facility] | | | | | | | [facility] Floor | | | | + + + + + + + + + | Result panel 769 | + + + + + +-------+---------+ + | | 2021-07-22 | [facility] | 224 | mg/dL | (missing) | | (unavailable | 19:05:53 | [facility] | | | | | | | [facility] Floor | | | | + + + +-------+---------+ + + + | Result panel 770 | + + + + + + + + + | | 2021-07-22 | [facility] | Abnormal | (missing) | (missing) | | (unavailable | 19:05:53 | [facility] | | | | | | | [facility] Floor | | | | + + + + + + + + + | Result panel 771 | + + + + + +-------+---------+ + | | 2021-07-22 | [facility] | 213 | mg/dL | (missing) | | (unavailable | 20:15:34 | [facility] | | | | | | | [facility] Floor | | | | + + + +-------+---------+ + + + | Result panel 772 | + + + + + + + + + | | 2021-07-22 | [facility] | Abnormal | (missing) | (missing) | | (unavailable | 20:15:34 | [facility] | | | | | | | [facility] Floor | | | | + + + + + + + + + | Result panel 773 | + + + + + +-------+---------+ + | | 2021-07-22 | [facility] | 237 | mg/dL | (missing) | | (unavailable | 21:10:22 | [facility] | | | | | | | [facility] Floor | | | | + + + +-------+---------+ + + + | Result panel 774 | + + + + + + + + + | | 2021-07-22 | [facility] | Abnormal | (missing) | (missing) | | (unavailable | 21:10:22 | [facility] | | | | | | | [facility] Floor | | | | + + + + + + + + + | Result panel 775 | + + + + + +-------+---------+ + | | 2021-07-22 | [facility] | 231 | mg/dL | (missing) | | (unavailable | 22:05:23 | [facility] | | | | | | | [facility] Floor | | | | + + + +-------+---------+ + + + | Result panel 776 | + + + + + + + + + | | 2021-07-22 | [facility] | Abnormal | (missing) | (missing) | | (unavailable | :05:23 | [facility] | | | | | | | [facility] Floor | | | | + + + + + + + + + | Result panel 777 | + + + + + +-------+---------+ + | | 2021-07-22 | [facility] | 289 | mg/dL | (missing) | | (unavailable | 23:10:14 | [facility] | | | | | | | [facility] Floor | | | | + + + +-------+---------+ + + + | Result panel 778 | + + + + + + + + + | | 2021-07-22 | [facility] | Abnormal | (missing) | (missing) | | (unavailable | 23:10:14 | [facility] | | | | | | | [facility] Floor | | | | + + + + + + + + + | Result panel 779 | + + + + + +-------+---------+ + | | 2021-07-23 | [facility] | 183 | mg/dL | (missing) | | (unavailable | 00:15:30 | [facility] | | | | | | | [facility] Floor | | | | + + + +-------+---------+ + + + | Result panel 780 | + + + + + + + + + | | 2021-07-23 | [facility] | Abnormal | (missing) | (missing) | | (unavailable | 00:15:30 [facility] | | | | | | | [facility] Floor | | | | + + + + + + + + + | Result panel 781 | + + + + + +-------+---------+ + | | 2021-07-23 | [facility] | 156 | mg/dL | (missing) | | (unavailable | 01:10:21 | [facility] | | | | | | | [facility] Floor | | | | + + + +-------+---------+ + + + | Result panel 782 | + + + + + + + + + | | 2021-07-23 | [facility] | Abnormal | (missing) | (missing) | | (unavailable | 01:10:21 | [facility] | | | | | | | [facility] Floor | | | | + + + + + + + + + | Result panel 783 | + + + + + + + + + | | 2021-07-23 | [facility] | (missing) | (missing) | (missing) | | (unavailable | 02:03:08 | [facility] | | | | | | | [facility] Floor | | | | + + + + + + + + + | Result panel 784 | + + + + + +-------+---------+ + | | 2021-07-23 | [facility] | 167 | mg/dL | (missing) | | (unavailable | 02:15:20 | [facility] | | | | | | | [facility] Floor | | | | + + + +-------+---------+ + + + | Result panel 785 | + + + + + + + + + | | 2021-07-23 | [facility] | Abnormal | (missing) | (missing) | | (unavailable | 02:15:20 | [facility] | | | | | | | [facility] Floor | | | | + + + + + + + + + | Result panel 786 | + + + + + +-------+---------+ + | | 2021-07-23 | [facility] | 171 | mg/dL | (missing) | | (unavailable | 03:10:33 | [facility] | | | | | | | [facility] Floor | | | | + + + +-------+---------+ + + + | Result panel 787 | + + + + + + + + + | | 2021-07-23 | [facility] | Abnormal | (missing) | (missing) | | (unavailable | 03:10:33 | [facility] | | | | | | | [facility] Floor | | | | + + + + + + + + + | Result panel 788 | + + + + + +-------+-----+ + | | 2021-07-23 | [facility] | 9.7 | % | (missing) | | (unavailable | 03:45:23 | [facility] | | | | | | | [facility] Floor | | | | + + + +-------+-----+ + + + | Result panel 789 | + + + + + +-------+---------+ + | | 2021-07-23 | [facility] | 232 | mg/dL | (missing) | | (unavailable | 03:45:23 | [facility] | | | | | | | [facility] Floor | | | | + + + +-------+---------+ + + + | Result panel 790 | + + + + + + + + + | | 2021-07-23 | [facility] | Abnormal | (missing) | (missing) | | (unavailable | 03:45:23 | [facility] | | | | | | | [facility] Floor | | | | + + + + + + + + + | Result panel 791 | + + + + + +-------+---------+ + | | 2021-07-23 | [facility] | 212 | mg/dL | (missing) | | (unavailable | 04:20:18 | [facility] | | | | | | | [facility] Floor | | | | + + + +-------+---------+ + + + | Result panel 792 | + + + + + + + + + | | 2021-07-23 | [facility] | Abnormal | (missing) | (missing) | | (unavailable | 04:20:18 | [facility] | | | | | | | [facility] Floor | | | | + + + + + + + + + | Result panel 793 | + + + + + +-------+---------+ + | | 2021-07-23 | [facility] | 201 | mg/dL | (missing) | | (unavailable | 05:15:29 | [facility] | | | | | | | [facility]th Floor | | | | + + + +-------+---------+ + + + | Result panel 794 | + + + + + + + + + | | 2021-07-23 | [facility] | Abnormal | (missing) | (missing) | | (unavailable | 05:15:29 | [facility] | | | | | | | [facility] Floor | | | | + + + + + + + + + | Result panel 795 | + + + + + +-------+---------+ + | | 2021-07-23 | [facility] | 248 | mg/dL | (missing) | | (unavailable | 06:05:30 | [facility] | | | | | | | [facility] Floor | | | | + + + +-------+---------+ + + + | Result panel 796 | + + + + + + + + + | | 2021-07-23 | [facility] | Abnormal | (missing) | (missing) | | (unavailable | 06:05:30 | [facility] | | | | | | | [facility] Floor | | | | + + + + + + + + + | Result panel 797 | + + + + + +-------+---------+ + | | 2021-07-23 | [facility] | 272 | mg/dL | (missing) | | (unavailable | 07:10:24 | [facility] | | | | | | | [facility] Floor | | | | + + + +-------+---------+ + + + | Result panel 798 | + + + + + + + + + | | 2021-07-23 | [facility] | Abnormal | (missing) | (missing) | | (unavailable | 07:10:24 | [facility] | | | | | | | [facility] Floor | | | | + + + + + + + + + | Result panel 799 | + + + + + +-------+---------+ + | | 2021-07-23 | [facility] | 295 | mg/dL | (missing) | | (unavailable | 08:15:12 | [facility] | | | | | | | [facility]th Floor | | | | + + + +-------+---------+ + + + | Result panel 800 | + + + + + + + + + | | 2021-07-23 | [facility] | Abnormal | (missing) | (missing) | | (unavailable | 08:15:12 | [facility] | | | | | | | [facility] Floor | | | | + + + + + + + + + | Result panel 801 | + + + + + +-------+---------+ + | | 2021-07-23 | [facility] | 206 | mg/dL | (missing) | | (unavailable | 09:10:14 | [facility] | | | | | | | [facility]th Floor | | | | + + + +-------+---------+ + + + | Result panel 802 | + + + + + + + + + | | 2021-07-23 | [facility] | Abnormal | (missing) | (missing) | | (unavailable | 09:10:14 | [facility] | | | | | | | [facility] Floor | | | | + + + + + + + + + | Result panel 803 | + + + + + +-------+---------+ + | | 2021-07-23 | [facility] | 188 | mg/dL | (missing) | | (unavailable | 10:15:18 | [facility] | | | | | | | [facility]th Floor | | | | + + + +-------+---------+ + + + | Result panel 804 | + + + + + + + + + | | 2021-07-23 | [facility] | Abnormal | (missing) | (missing) | | (unavailable | 10:15:18 | [facility] | | | | | | | [facility] Floor | | | | + + + + + + + + + | Result panel 805 | + + + + + +-------+---------+ + | | 2021-07-23 | [facility] | 180 | mg/dL | (missing) | | (unavailable | 11:10:22 | [facility] | | | | | | | [facility] Floor | | | | + + + +-------+---------+ + + + | Result panel 806 | + + + + + + + + + | | 2021-07-23 | [facility] | Abnormal | (missing) | (missing) | | (unavailable | 11:10:22 | [facility] | | | | | | | [facility] Floor | | | | + + + + + + + + + | Result panel 807 | + + + + + +-------+---------+ + | | 2021-07-23 | [facility] | 183 | mg/dL | (missing) | | (unavailable | 12:15:14 | [facility] | | | | | | | [facility]th Floor | | | | + + + +-------+---------+ + + + | Result panel 808 | + + + + + + + + + | | 2021-07-23 | [facility] | Abnormal | (missing) | (missing) | | (unavailable | 12:15:14 | [facility] | | | | | | | [facility] Floor | | | | + + + + + + + + + | Result panel 809 | + + + + + +-------+---------+ + | | 2021-07-23 | [facility] | 115 | mg/dL | (missing) | | (unavailable | 13:15:25 | [facility] | | | | | | | [facility] Floor | | | | + + + +-------+---------+ + + + | Result panel 810 | + + + + + + + + + | | 2021-07-23 | [facility] | Abnormal | (missing) | (missing) | | (unavailable | 13:15:25 | [facility] | | | | | | | [facility] Floor | | | | + + + + + + + + + | Result panel 811 | + + + + + +-------+---------+ + | | 2021-07-23 | [facility] | 107 | mg/dL | (missing) | | (unavailable | 14:15:19 | [facility] | | | | | | | [facility]th Floor | | | | + + + +-------+---------+ + + + | Result panel 812 | + + + + + + + + + | | 2021-07-23 | [facility] | Abnormal | (missing) | (missing) | | (unavailable | 14:15:19 | [facility] | | | | | | | [facility] Floor | | | | + + + + + + + + + | Result panel 813 | + + + + + +-------+---------+ + | | 2021-07-23 | [facility] | 125 | mg/dL | (missing) | | (unavailable | 15:10:31 | [facility] | | | | | | | [facility] Floor | | | | + + + +-------+---------+ + + + | Result panel 814 | + + + + + + + + + | | 2021-07-23 | [facility] | Abnormal | (missing) | (missing) | | (unavailable | 15:10:31 | [facility] | | | | | | | [facility] Floor | | | | + + + + + + + + + | Result panel 815 | + + + + + +-------+---------+ + | | 2021-07-23 | [facility] | 146 | mg/dL | (missing) | | (unavailable | 16:15:14 | [facility] | | | | | | | [facility] Floor | | | | + + + +-------+---------+ + + + | Result panel 816 | + + + + + + + + + | | 2021-07-23 | [facility] | Abnormal | (missing) | (missing) | | (unavailable | 16:15:14 | [facility] | | | | | | | [facility] Floor | | | | + + + + + + + + + | Result panel 817 | + + + + + +---------+ + + | | 2021-07-23 | [facility] | 12.99 | (missing) | (missing) | | (unavailable | 16:31:23 | [facility] | | | | | | | [facility] Floor | | | | + + + +---------+ + + + + | Result panel 818 | + + + + + +--------+ + + | | 2021-07-23 | [facility] | 4.25 | (missing) | (missing) | | (unavailable | 16:31:23 | [facility] | | | | | | | [facility] Floor | | | | + + + +--------+ + + + + | Result panel 819 | + + + + + +--------+ + + | | 2021-07-23 | [facility] | 12.2 | (missing) | (missing) | | (unavailable | 16:31:23 | [facility] | | | | | | | [facility] Floor | | | | + + + +--------+ + + + + | Result panel 820 | + + + + + +--------+-----+ + | | 2021-07-23 | [facility] | 37.5 | % | (missing) | | (unavailable | 16:31:23 | [facility] | | | | | | | [facility] Floor | | | | + + + +--------+-----+ + + + | Result panel 821 | + + + + + +--------+------+ + | | 2021-07-23 | [facility] | 88.2 | fL | (missing) | | (unavailable | 16:31:23 | [facility] | | | | | | | [facility] Floor | | | | + + + +--------+------+ + + + | Result panel 822 | + + + + + +--------+------+ + | | 2021-07-23 | [facility] | 28.7 | pg | (missing) | | (unavailable | 16:31:23 | [facility] | | | | | | | [facility] Floor | | | | + + + +--------+------+ + + + | Result panel 823 | + + + + + +--------+ + + | | 2021-07-23 | [facility] | 32.5 | (missing) | (missing) | | (unavailable | 16:31:23 | [facility] | | | | | | | [facility] Floor | | | | + + + +--------+ + + + + | Result panel 824 | + + + + + +--------+-----+ + | | 2021-07-23 | [facility] | 14.2 | % | (missing) | | (unavailable | 16:31:23 | [facility] | | | | | | | [facility]th Floor | | | | + + + +--------+-----+ + + + | Result panel 825 | + + + + + +-------+ + + | | 2021-07-23 | [facility] | 229 | (missing) | (missing) | | (unavailable | 16:31:23 | [facility] | | | | | | | [facility] Floor | | | | + + + +-------+ + + + + | Result panel 826 | + + + + + +-------+------+ + | | 2021-07-23 | [facility] | 9.1 | fL | (missing) | | (unavailable | 16:31:23 | [facility] | | | | | | | [facility]th Floor | | | | + + + +-------+------+ + + + | Result panel 827 | + + + + + +-------+ + + | | 2021-07-23 | [facility] | 0.0 | (missing) | (missing) | | (unavailable | 16:31:23 | [facility] | | | | | | | [facility] Floor | | | | + + + +-------+ + + + + | Result panel 828 | + + + + + +--------+ + + | | 2021-07-23 | [facility] | 0.00 | (missing) | (missing) | | (unavailable | 16:31:23 | [facility] | | | | | | | [facility] Floor | | | | + + + +--------+ + + + + | Result panel 829 | + + + + + + + + + | | 2021-07-23 | [facility] | Abnormal | (missing) | (missing) | | (unavailable | 16:31:23 | [facility] | | | | | | | [facility] Floor | | | | + + + + + + + + + | Result panel 830 | + + + + + +---------+ + + | Red Cell | 2021-07-23 | [facility] | Ready | (missing) | (missing) | | Products | 16:36:37 | [facility] | | | | | | | [facility] Floor | | | | + + + +---------+ + + + + | Result panel 831 | + + + + + +-------+---------+ + | | 2021-07-23 | [facility] | 160 | mg/dL | (missing) | | (unavailable | 17:10:20 | [facility] | | | | | | | [facility]th Floor | | | | + + + +-------+---------+ + + + | Result panel 832 | + + + + + + + + + | | 2021-07-23 | [facility] | Abnormal | (missing) | (missing) | | (unavailable | 17:10:20 | [facility] | | | | | | | [facility] Floor | | | | + + + + + + + + + | Result panel 833 | + + + + + +-------+ + + | | 2021-07-23 | [facility] | 133 | mmol/L | (missing) | | (unavailable | 17:48:18 | [facility] | | | | | | | [facility]th Floor | | | | + + + +-------+ + + + + | Result panel 834 | + + + + + +-------+ + + | | 2021-07-23 | [facility] | 4.7 | mmol/L | (missing) | | (unavailable | 17:48:18 | [facility] | | | | | | | [facility] Floor | | | | + + + +-------+ + + + + | Result panel 835 | + + + + + +-------+ + + | | 2021-07-23 | [facility] | 102 | mmol/L | (missing) | | (unavailable | 17:48:18 | [facility] | | | | | | | [facility] Floor | | | | + + + +-------+ + + + + | Result panel 836 | + + + + + +------+ + + | | 2021-07-23 | [facility] | 23 | mmol/L | (missing) | | (unavailable | 17:48:18 | [facility] | | | | | | | [facility] Floor | | | | + + + +------+ + + + + | Result panel 837 | + + + + + +-----+ + + | Anion Gap | 2021-07-23 | [facility] | 8 | mmol/L | (missing) | | | 17:48:18 | [facility] | | | | | | | [facility] Floor | | | | + + + +-----+ + + + + | Result panel 838 | + + + + + +------+---------+ + | | 2021-07-23 | [facility] | 19 | mg/dL | (missing) | | (unavailable | 17:48:18 | [facility] | | | | | | | [facility] Floor | | | | + + + +------+---------+ + + + | Result panel 839 | + + + + + +--------+---------+ + | | 2021-07-23 | [facility] | 0.48 | mg/dL | (missing) | | (unavailable | 17:48:18 | [facility] | | | | | | | [facility] Floor | | | | + + + +--------+---------+ + + + | Result panel 840 | + + + + + +-------+---------+ + | | 2021-07-23 | [facility] | 147 | mg/dL | (missing) | | (unavailable | 17:48:18 | [facility] | | | | | | | [facility] Floor | | | | + + + +-------+---------+ + + + | Result panel 841 | + + + + + +-------+---------+ + | | 2021-07-23 | [facility] | 8.0 | mg/dL | (missing) | | (unavailable | 17:48:18 | [facility] | | | | | | | [facility] Floor | | | | + + + +-------+---------+ + + + | Result panel 842 | + + + + + +-------+ + + | | 2021-07-23 | [facility] | 5.5 | (missing) | (missing) | | (unavailable | 17:48:18 [facility] | | | | | | [facility] | | | | + + + +-------+ + + + + | Result panel 843 | + + + + + +-------+ + + | | 2021-07-23 | [facility] | 2.8 | (missing) | (missing) | | (unavailable | 17:48:18 [facility] | | | | | | [facility] | | | | + + + +-------+ + + + + | Result panel 844 | + + + + + +------+-------+ + | | 2021-07-23 | [facility] | 21 | U/L | (missing) | | (unavailable | 17:48:18 [facility] | | | | | | [facility] | | | | + + + +------+-------+ + + + | Result panel 845 | + + + + + +------+-------+ + | | 2021-07-23 | [facility] | 24 | U/L | (missing) | | (unavailable | 17:48:18 [facility] | | | | | | [facility] | | | | + + + +------+-------+ + + + | Result panel 846 | + + + + + +------+-------+ + | | 2021-07-23 | [facility] | 48 | U/L | (missing) | | (unavailable | 17:48:18 | [facility] | | | | | | [facility] | | | | + + + +------+-------+ + + + | Result panel 847 | + + + + + +-------+---------+ + | | 2021-07-23 | [facility] | 0.3 | mg/dL | (missing) | | (unavailable | 17:48:18 [facility] | | | | | | [facility] | | | | + + + +-------+---------+ + + + | Result panel 848 | + + + + + + + + + | | 2021-07-23 | [facility] | Abnormal | (missing) | (missing) | | (unavailable | 17:48:18 | [facility] | | | | | | [facility] | | | | + + + + + + + + + | Result panel 849 | + + + + + +-------+---------+ + | | 2021-07-23 | [facility] | 128 | mg/dL | (missing) | | (unavailable | 18:15:22 | [facility] | | | | | | [facility] | | | | + + + +-------+---------+ + + + | Result panel 850 | + + + + + + + + + | | 2021-07-23 | [facility] | Abnormal | (missing) | (missing) | | (unavailable | 18:15:22 | [facility] | | | | | | [facility] | | | | + + + + + + + + + | Result panel 851 | + + + + + +-------+---------+ + | | 2021-07-23 | [facility] | 128 | mg/dL | (missing) | | (unavailable | 19:10:53 | [facility] | | | | | | | [facility] | | | | + + + +-------+---------+ + + + | Result panel 852 | + + + + + + + + + | | 2021-07-23 | [facility] | Abnormal | (missing) | (missing) | | (unavailable | 19:10:53 | [facility] | | | | | | [facility] Floor | | | | + + + + + + + + + | Result panel 853 | + + + + + +------+---------+ + | | 2021-07-23 | [facility] | 88 | mg/dL | (missing) | | (unavailable | 21:10:32 | [facility] | | | | | | | [facility] Floor | | | | + + + +------+---------+ + + + | Result panel 854 | + + + + + +------+---------+ + | | 2021-07-23 | [facility] | 94 | mg/dL | (missing) | | (unavailable | 21:20:25 | [facility] | | | | ) | | Acute Care | | | | | | | 7th Floor | | | | + + + +------+---------+ + + + | Result panel 855 | + + + + + +-------+---------+ + | | 2021-07-23 | [facility] | 128 | mg/dL | (missing) | | (unavailable | [facility]:10:30 [facility] | | | | | | | [facility]th Floor | | | | + + + +-------+---------+ + + + | Result panel 856 | + + + + + + + + + | | 2021-07-23 | [facility] | Abnormal | (missing) | (missing) | | (unavailable | 22:10:30 | [facility] | | | | | | | [facility]th Floor | | | | + + + + + + + + + | Result panel 857 | + + + + + +-------+---------+ + | | 2021-07-24 | [facility] | 108 | mg/dL | (missing) | | (unavailable | 00:05:23 | [facility] | | | | | | | [facility]th Floor | | | | + + + +-------+---------+ + + + | Result panel 858 | + + + + + + + + + | | 2021-07-24 | [facility] | Abnormal | (missing) | (missing) | | (unavailable | 00:05:23 | [facility] | | | | | | | [facility]th Floor | | | | + + + + + + + + + | Result panel 859 | + + + + + +-------+---------+ + | | 2021-07-24 | [facility] | 114 | mg/dL | (missing) | | (unavailable | 00:05:25 | [facility] | | | | | | | [facility]th Floor | | | | + + + +-------+---------+ + + + | Result panel 860 | + + + + + + + + + | | 2021-07-24 | [facility] | Abnormal | (missing) | (missing) | | (unavailable | 00:05:25 | [facility] | | | | | | | [facility]th Floor | | | | + + + + + + + + + | Result panel 861 | + + + + + +------+---------+ + | | 2021-07-24 | [facility] | 97 | mg/dL | (missing) | | (unavailable | 01:20:27 | [facility] | | | | | | | [facility]th Floor | | | | + + + +------+---------+ + + + | Result panel 862 | + + + + + +------+---------+ + | | 2021-07-24 | [facility] | 97 | mg/dL | (missing) | | (unavailable | 02:10:15 | [facility] | | | | | | | [facility]th Floor | | | | + + + +------+---------+ + + + | Result panel 863 | + + + + + +-------+---------+ + | | 2021-07-24 | [facility] | 108 | mg/dL | (missing) | | (unavailable | 03:15:29 | [facility] | | | | | | | [facility]th Floor | | | | + + + +-------+---------+ + + + | Result panel 864 | + + + + + + + + + | | 2021-07-24 | [facility] | Abnormal | (missing) | (missing) | | (unavailable | 03:15:29 | [facility] | | | | | | | [facility]th Floor | | | | + + + + + + + + + | Result panel 865 | + + + + + +-------+---------+ + | | 2021-07-24 | [facility] | 122 | mg/dL | (missing) | | (unavailable | 04:15:35 | [facility] | | | | | | | [facility]th Floor | | | | + + + +-------+---------+ + + + | Result panel 866 | + + + + + + + + + | | 2021-07-24 | [facility] | Abnormal | (missing) | (missing) | | (unavailable | 04:15:35 | [facility] | | | | | | | [facility]th Floor | | | | + + + + + + + + + | Result panel 867 | + + + + + +-------+---------+ + | | 2021-07-24 | [facility] | 121 | mg/dL | (missing) | | (unavailable | 05:10:25 | [facility] | | | | | | | [facility]th Floor | | | | + + + +-------+---------+ + + + | Result panel 868 | + + + + + + + + + | | 2021-07-24 | [facility] | Abnormal | (missing) | (missing) | | (unavailable | 05:10:25 | [facility] | | | | | | | [facility]th Floor | | | | + + + + + + + + + | Result panel 869 | + + + + + +------+---------+ + | | 2021-07-24 | [facility] | 96 | mg/dL | (missing) | | (unavailable | 06:10:13 | [facility] | | | | | | | [facility]th Floor | | | | + + + +------+---------+ + + + | Result panel 870 | + + + + + +-------+---------+ + | | 2021-07-24 | [facility] | 104 | mg/dL | (missing) | | (unavailable | 07:10:16 | [facility] | | | | | | | [facility]th Floor | | | | + + + +-------+---------+ + + + | Result panel 871 | + + + + + + + + + | | 2021-07-24 | [facility] | Abnormal | (missing) | (missing) | | (unavailable | 07:10:16 | [facility] | | | | | | | [facility]th Floor | | | | + + + + + + + + + | Result panel 872 | + + + + + +-------+---------+ + | | 2021-07-24 | [facility] | 139 | mg/dL | (missing) | | (unavailable | 08:15:26 | [facility] | | | | | | | [facility]th Floor | | | | + + + +-------+---------+ + + + | Result panel 873 | + + + + + + + + + | | 2021-07-24 | [facility] | Abnormal | (missing) | (missing) | | (unavailable | 08:15:26 | [facility] | | | | | | | [facility]th Floor | | | | + + + + + + + + + | Result panel 874 | + + + + + +-------+---------+ + | | 2021-07-24 | [facility] | 132 | mg/dL | (missing) | | (unavailable | 09:10:19 | [facility] | [facility] | | | | | | | [facility]th Floor | | | | + + + +-------+---------+ + + + | Result panel 875 | + + + + + + + + + | | 2021-07-24 | [facility] | Abnormal | (missing) | (missing) | | (unavailable | 09:10:19 | [facility] | [facility] | | | | | | | [facility]th Floor | | | | + + + + + + + + + | Result panel 876 | + + + + + +-------+---------+ + | | 2021-07-24 | [facility] | 106 | mg/dL | (missing) | | (unavailable | 10:15:22 | [facility] | | | | | | | [facility]th Floor | | | | + + + +-------+---------+ + + + | Result panel 877 | + + + + + + + + + | | 2021-07-24 | [facility] | Abnormal | (missing) | (missing) | | (unavailable | 10:15:22 | [facility] | | | | | | | [facility]th Floor | | | | + + + + + + + + + | Result panel 878 | + + + + + +-------+---------+ + | | 2021-07-24 | [facility] | 144 | mg/dL | (missing) | | (unavailable | 11:15:24 | [facility] | [facility] | | | | | | | [facility]th Floor | | | | + + + +-------+---------+ + + + | Result panel 879 | + + + + + + + + + | | 2021-07-24 | [facility] | Abnormal | (missing) | (missing) | | (unavailable | 11:15:24 | [facility] | | | | | | | [facility]th Floor | | | | + + + + + + + + + | Result panel 880 | + + + + + +-------+---------+ + | | 2021-07-24 | [facility] | 162 | mg/dL | (missing) | | (unavailable | 12:25:27 | [facility] | [facility] | | | | | | | [facility]th Floor | | | | + + + +-------+---------+ + + + | Result panel 881 | + + + + + + + + + | | 2021-07-24 | [facility] | Abnormal | (missing) | (missing) | | (unavailable | 12:25:27 | [facility] | | | | | | | [facility]th Floor | | | | + + + + + + + + + | Result panel 882 | + + + + + +---------+ + + | | 2021-07-24 | [facility] | 12.40 | (missing) | (missing) | | (unavailable | 12:38:32 | [facility] | | | | | | | [facility]th Floor | | | | + + + +---------+ + + + + | Result panel 883 | + + + + + +--------+ + + | | 2021-07-24 | [facility] | 3.35 | (missing) | (missing) | | (unavailable | 12:38:32 | [facility] | [facility] | | | | | | | [facility]th Floor | | | | + + + +--------+ + + + + | Result panel 884 | + + + + + +-------+ + + | | 2021-07-24 | [facility] | 9.7 | (missing) | (missing) | | (unavailable | 12:38:32 | [facility] | | | | | | | [facility]th Floor | | | | + + + +-------+ + + + + | Result panel 885 | + + + + + +--------+-----+ + | | 2021-07-24 | [facility] | 29.8 | % | (missing) | | (unavailable | 12:38:32 | [facility] | [facility] | | | | | | | [facility]th Floor | | | | + + + +--------+-----+ + + + | Result panel 886 | + + + + + +--------+------+ + | | 2021-07-24 | [facility] | 89.0 | fL | (missing) | | (unavailable | 12:38:32 | [facility] | | | | | | | [facility]th Floor | | | | + + + +--------+------+ + + + | Result panel 887 | + + + + + +--------+------+ + | | 2021-07-24 | [facility] | 29.0 | pg | (missing) | | (unavailable | 12:38:32 | [facility] | [facility] | | | | | | | [facility]th Floor | | | | + + + +--------+------+ + + + | Result panel 888 | + + + + + +--------+ + + | | 2021-07-24 | [facility] | 32.6 | (missing) | (missing) | | (unavailable | 12:38:32 | [facility] | | | | | | | [facility]th Floor | | | | + + + +--------+ + + + + | Result panel 889 | + + + + + +--------+-----+ + | | 2021-07-24 | [facility] | 14.4 | % | (missing) | | (unavailable | 12:38:32 | [facility] | [facility] | | | | | | | [facility]th Floor | | | | + + + +--------+-----+ + + + | Result panel 890 | + + + + + +-------+ + + | | 2021-07-24 | [facility] | 251 | (missing) | (missing) | | (unavailable | 12:38:32 | [facility] | | | | | | | [facility]th Floor | | | | + + + +-------+ + + + + | Result panel 891 | + + + + + +-------+------+ + | | 2021-07-24 | [facility] | 9.1 | fL | (missing) | | (unavailable | 12:38:32 | [facility] | | | | | | | [facility]th Floor | | | | + + + +-------+------+ + + + | Result panel 892 | + + + + + +-------+ + + | | 2021-07-24 | [facility] | 0.0 | (missing) | (missing) | | (unavailable | 12:38:32 | [facility] | [facility] | | | | | | | [facility]th Floor | | | | + + + +-------+ + + + + | Result panel 893 | + + + + + +--------+ + + | | 2021-07-24 | [facility] | 0.00 | (missing) | (missing) | | (unavailable | 12:38:32 | [facility] | [facility] | | | | | | | [facility]th Floor | | | | + + + +--------+ + + + + | Result panel 894 | + + + + + + + + + | | 2021-07-24 | [facility] | Abnormal | (missing) | (missing) | | (unavailable | 12:38:32 | [facility] | [facility] | | | | | | | [facility]th Floor | | | | + + + + + + + + + | Result panel 895 | + + + + + +-------+---------+ + | | 2021-07-24 | [facility] | 167 | mg/dL | (missing) | | (unavailable | 13:10:29 | [facility] | [facility] | | | | | | | [facility]th Floor | | | | + + + +-------+---------+ + + + | Result panel 896 | + + + + + + + + + | | 2021-07-24 | [facility] | Abnormal | (missing) | (missing) | | (unavailable | 13:10:29 | [facility] | [facility] | | | | | | | [facility]th Floor | | | | + + + + + + + + + | Result panel 897 | + + + + + +-------+ + + | | 2021-07-24 | [facility] | 130 | mmol/L | (missing) | | (unavailable | 13:19:49 | [facility] | [facility] | | | | | | | [facility]th Floor | | | | + + + +-------+ + + + + | Result panel 898 | + + + + + +-------+ + + | | 2021-07-24 | [facility] | 4.1 | mmol/L | (missing) | | (unavailable | 13:19:49 | [facility] | | | | | | | [facility]th Floor | | | | + + + +-------+ + + + + | Result panel 899 | + + + + + +------+ + + | | 2021-07-24 | [facility] | 98 | mmol/L | (missing) | | (unavailable | 13:19:49 | [facility] | [facility] | | | | | | | [facility]th Floor | | | | + + + +------+ + + + + | Result panel 900 | + + + + + +------+ + + | | 2021-07-24 | [facility] | 26 | mmol/L | (missing) | | (unavailable | 13:19:49 | [facility] | | | | | | | [facility]th Floor | | | | + + + +------+ + + + + | Result panel 901 | + + + + + +-----+ + + | Anion Gap | 2021-07-24 | [facility] | 6 | mmol/L | (missing) | | | 13:19:49 | [facility] | | | | | | | [facility]th Floor | | | | + + + +-----+ + + + + | Result panel 902 | + + + + + +------+---------+ + | | 2021-07-24 | [facility] | 16 | mg/dL | (missing) | | (unavailable | 13:19:49 | [facility] | [facility] | | | | | | | 7th Floor | | | | + + + +------+---------+ + + + | Result panel 903 | + + + + + +--------+---------+ + | | 2021-07-24 | [facility] | 0.52 | mg/dL | (missing) | | (unavailable | 13:19:49 | [facility] | | | | | | | [facility]th Floor | | | | + + + +--------+---------+ + + + | Result panel 904 | + + + + + +-------+---------+ + | | 2021-07-24 | [facility] | 151 | mg/dL | (missing) | | (unavailable | 13:19:49 | [facility] | | | | | | | [facility]th Floor | | | | + + + +-------+---------+ + + + | Result panel 905 | + + + + + +-------+---------+ + | | 2021-07-24 | [facility] | 6.8 | mg/dL | (missing) | | (unavailable | 13:19:49 | [facility] | | | | | | | 7th Floor | | | | + + + +-------+---------+ + + + | Result panel 906 | + + + + + +-------+ + + | | 2021-07-24 | [facility] | 5.0 | (missing) | (missing) | | (unavailable | 13:19:49 | [facility] | [facility] | | | | | | | 7th Floor | | | | + + + +-------+ + + + + | Result panel 907 | + + + + + +-------+ + + | | 2021-07-24 | [facility] | 2.4 | (missing) | (missing) | | (unavailable | 13:19:49 | [facility] | | | | | | | 7th Floor | | | | + + + +-------+ + + + + | Result panel 908 | + + + + + +------+-------+ + | | 2021-07-24 | [facility] | 17 | U/L | (missing) | | (unavailable | 13:19:49 | [facility] | [facility] | | | | | | | 7th Floor | | | | + + + +------+-------+ + + + | Result panel 909 | + + + + + +------+-------+ + | | 2021-07-24 | [facility] | 25 | U/L | (missing) | | (unavailable | 13:19:49 | [facility] | [facility] | | | | | | | 7th Floor | | | | + + + +------+-------+ + + + | Result panel 910 | + + + + + +------+-------+ + | | 2021-07-24 | [facility] | 45 | U/L | (missing) | | (unavailable | 13:19:49 | [facility] | [facility] | | | | | | | 7th Floor | | | | + + + +------+-------+ + + + | Result panel 911 | + + + + + +-------+---------+ + | | 2021-07-24 | [facility] | 0.2 | mg/dL | (missing) | | (unavailable | 13:19:49 | [facility] | [facility] | | | | | | | 7th Floor | | | | + + + +-------+---------+ + + + | Result panel 912 | + + + + + + + + + | | 2021-07-24 | [facility] | Abnormal | (missing) | (missing) | | (unavailable | 13:19:49 | [facility] | [facility] | | | | | | | 7th Floor | | | | + + + + + + + + + | Result panel 913 | + + + + + +-------+---------+ + | | 2021-07-24 | [facility] | 130 | mg/dL | (missing) | | (unavailable | 15::28 | [facility] | [facility] | | | | | | | 7th Floor | | | | + + + +-------+---------+ + + + | Result panel 914 | + + + + + + + + + | | 2021-07-24 | [facility] | Abnormal | (missing) | (missing) | | (unavailable | 15:28 | [facility] | [facility] | | | | | | | 7th Floor | | | | + + + + + + + + + | Result panel 915 | + + + + + +-------+---------+ + | | 2021-07-24 | [facility] | 174 | mg/dL | (missing) | | (unavailable | 16:15:31 | [facility] | [facility] | | | | | | | 7th Floor | | | | + + + +-------+---------+ + + + | Result panel 916 | + + + + + + + + + | | 2021-07-24 | [facility] | Abnormal | (missing) | (missing) | | (unavailable | 16:15:31 | [facility] | | | | | | | [facility]th Floor | | | | + + + + + + + + + | Result panel 917 | + + + + + + + + + | Path Tissue | 2021-07-24 | [facility] | Received | (missing) | (missing) | | Request | 17:01:31 | [facility] | | | | | | | [facility]th Floor | | | | + + + + + + + + + | Result panel 918 | + + + + + +-------+---------+ + | | 2021-07-24 | [facility] | 211 | mg/dL | (missing) | | (unavailable | 19:50:26 | [facility] | [facility] | | | | | | | 7th Floor | | | | + + + +-------+---------+ + + + | Result panel 919 | + + + + + + + + + | | 2021-07-24 | [facility] | Abnormal | (missing) | (missing) | | (unavailable | 19:50:26 | [facility] | [facility] | | | | | | | [facility]th Floor | | | | + + + + + + + + + | Result panel 920 | + + + + + +-------+---------+ + | | 2021-07-24 | [facility] | 244 | mg/dL | (missing) | | (unavailable | 22:30:28 | [facility] | [facility] | | | | | | | [facility]th Floor | | | | + + + +-------+---------+ + + + | Result panel 921 | + + + + + + + + + | | 2021-07-24 | [facility] | Abnormal | (missing) | (missing) | | (unavailable | 22:30:28 | [facility] | [facility] | | | | | | | [facility]th Floor | | | | + + + + + + + + + | Result panel 922 | + + + + + +-------+---------+ + | | 2021-07-25 | [facility] | 215 | mg/dL | (missing) | | (unavailable | 00:50:17 | [facility] | [facility] | | | | | | | [facility]th Floor | | | | + + + +-------+---------+ + + + | Result panel 923 | + + + + + + + + + | | 2021-07-25 | [facility] | Abnormal | (missing) | (missing) | | (unavailable | 00:50:17 | [facility] | [facility] | | | | | | | [facility]th Floor | | | | + + + + + + + + + | Result panel 924 | + + + + + +-------+---------+ + | | 2021-07-25 | [facility] | 204 | mg/dL | (missing) | | (unavailable | 01:55:28 | [facility] | [facility] | | | | | | | 7th Floor | | | | + + + +-------+---------+ + + + | Result panel 925 | + + + + + + + + + | | 2021-07-25 | [facility] | Abnormal | (missing) | (missing) | | (unavailable | 01:55:28 | [facility] | [facility] | | | | | | | [facility]th Floor | | | | + + + + + + + + + | Result panel 926 | + + + + + + + + + | UA Color | 2021-07-25 | [facility] | Yellow | (missing) | (missing) | | | 07:19:57 | [facility] | | | | | | | [facility]th Floor | | | | + + + + + + + + + | Result panel 927 | + + + + + + + + + | UA | 2021-07-25 | [facility] | Slight | (missing) | (missing) | | Turbidity | 07:19:57 | [facility] | Cloudy | | | | | | [facility] | | | | | | | 7th Floor | | | | + + + + + + + + + | Result panel 928 | + + + + + +------+ + + | UA Glucose | 2021-07-25 | [facility] | 3+ | (missing) | (missing) | | | 07:19:57 | [facility] | | [facility] | | | | | | | [facility]th Floor | | | | + + + +------+ + + + + | Result panel 929 | + + + + + + + + + | UA | 2021-07-25 | [facility] | Negative | (missing) | (missing) | | Bilirubin | 07:19:57 | [facility] | [facility] | | | | | | | [facility]th Floor | | | | + + + + + + + + + | Result panel 930 | + + + + + + + + + | UA Ketones | 2021-07-25 | [facility] | Negative | (missing) | (missing) | | | 07:19:57 | [facility] | | | | | | | [facility]th Floor | | | | + + + + + + + + + | Result panel 931 | + + + + + + + + + | UA Specific | 2021-07-25 | [facility] | >=1.030 | (missing) | (missing) | | [place] | 07:19:57 | [facility] | | | | | | | [facility]th Floor | | | | + + + + + + + + + | Result panel 932 | + + + + + +------+ + + | UA Blood | 2021-07-25 | [facility] | 3+ | (missing) | (missing) | | | 07:19:57 | [facility] | | | | | | | [facility]th Floor | | | | + + + +------+ + + + + | Result panel 933 | + + +---------+ + +-----+ + + | UA pH | 2021-07-25 | [facility] | 6 | (missing) | (missing) | | | 07:19:57 | [facility] | [facility] | | | | | | | 7th Floor | | | | +---------+ + +-----+ + + + + | Result panel 934 | + + + + + +---------+ + + | UA Albumin | 2021-07-25 | [facility] | Trace | (missing) | (missing) | | | 07:19:57 | [facility] | | [facility] | | | | | | | 7th Floor | | | | + + + +---------+ + + + + | Result panel 935 | + + + + + + + + + | UA | 2021-07-25 | [facility] | Negative | (missing) | (missing) | | Leukocyte | 07:19:57 | [facility] | | | | Esterase | | [facility] | | | | | | | 7th Floor | | | | + + + + + + + + + | Result panel 936 | + + + + + + + + + | UA Nitrite | 2021-07-25 | [facility] | Negative | (missing) | (missing) | | | 07:19:57 | [facility] | | [facility] | | | | | | | 7th Floor | | | | + + + + + + + + + | Result panel 937 | + + + + + + + + + | | 2021-07-25 | [facility] | Abnormal | (missing) | (missing) | | (unavailable | 07:19:57 | [facility] | | [facility] | | | | | | | 7th Floor | | | | + + + + + + + + + | Result panel 938 | + + + + + +-------+---------+ + | | 2021-07-25 | [facility] | 242 | mg/dL | (missing) | | (unavailable | 14:10:15 | [facility] | | [facility] | | | | | | | 7th Floor | | | | + + + +-------+---------+ + + + | Result panel 939 | + + + + + + + + + | | 2021-07-25 | [facility] | Abnormal | (missing) | (missing) | | (unavailable | 14:10:15 | [facility] | | [facility] | | | | | | | [facility]th Floor | | | | + + + + + + + + + | Result panel 940 | + + + + + + + + + | | 2021-07-25 | [facility] | (missing) | (missing) | (missing) | | (unavailable | 15:05:26 | [facility] | | [facility] | | | | | | | 7th Floor | | | | + + + + + + + + + | Result panel 941 | + + + + + + + + + | Vascular | 2021-07-25 | [facility] | (missing) | (missing) | (missing) | | | 15:05:26 | [facility] | | [facility] | | | | | | | [facility]th Floor | | | | + + + + + + + + + | Result panel 942 | + + + + + + + + + | | 2021-07-25 | [facility] | (missing) | (missing) | (missing) | | (unavailable | 16:49:40 | [facility] | | [facility] | | | | | | | [facility]th Floor | | | | + + + + + + + + + | Result panel 943 | + + + + + + + + + | | 2021-07-25 | [facility] | (missing) | (missing) | (missing) | | (unavailable | 16:49:40 | [facility] | [facility] | | [facility] | | | | | | | [facility]th Floor | | | | + + + + + + + + + | Result panel 944 | + + + + + +-------+---------+ + | | 2021-07-25 | [facility] | 230 | mg/dL | (missing) | | (unavailable | 17:50:12 | [facility] | | [facility] | | | | | | | [facility]th Floor | | | | + + + +-------+---------+ + + + | Result panel 945 | + + + + + + + + + | | 2021-07-25 | [facility] | Abnormal | (missing) | (missing) | | (unavailable | 17:50:12 | [facility] | | [facility] | | | | | | | [facility]th Floor | | | | + + + + + + + + + | Result panel 946 | + + + + + +-------+---------+ + | | 2021-07-25 | [facility] | 296 | mg/dL | (missing) | | (unavailable | 20:35:29 | [facility] | [facility] | | [facility] | | | | | | | 7th Floor | | | | + + + +-------+---------+ + + + | Result panel 947 | + + + + + + + + + | | 2021-07-25 | [facility] | Abnormal | (missing) | (missing) | | (unavailable | 20:35:29 | [facility] | | [facility] | | | | | | | [facility]th Floor | | | | + + + + + + + + + | Result panel 948 | + + + + + +-------+---------+ + | | 2021-07-25 | [facility] | 314 | mg/dL | (missing) | | (unavailable | 23:30:15 | [facility] | | [facility] | | | | | | | [facility]th Floor | | | | + + + +-------+---------+ + + + | Result panel 949 | + + + + + + + + + | | 2021-07-25 | [facility] | Abnormal | (missing) | (missing) | | (unavailable | 23:30:15 | [facility] | | [facility] | | | | | | | [facility] Floor | | | | + + + + + + + + + | Result panel 950 | + + + + + +-------+---------+ + | | 2021-07-26 | [facility] | 274 | mg/dL | (missing) | | (unavailable | 02:50:22 | [facility] | | | | | | | [facility] Floor | | | | + + + +-------+---------+ + + + | Result panel 951 | + + + + + + + + + | | 2021-07-26 | [facility] | Abnormal | (missing) | (missing) | | (unavailable | 02:50:22 | [facility] | | | | | | [facility] | | | | + + + + + + + + + | Result panel 952 | + + + + + +-------+---------+ + | | 2021-07-26 | [facility] | 234 | mg/dL | (missing) | | (unavailable | 04:30:30 | [facility] | | | | | | [facility] Floor | | | | + + + +-------+---------+ + + + | Result panel 953 | + + + + + + + + + | | 2021-07-26 | [facility] | Abnormal | (missing) | (missing) | | (unavailable | 04:30:30 | [facility] | | | | | | [facility] Floor | | | | + + + + + + + + + | Result panel 954 | + + + + + +-------+---------+ + | | 2021-07-26 | [facility] | 295 | mg/dL | (missing) | | (unavailable | 09:10:18 | [facility] | | | | | | [facility] | | | | + + + +-------+---------+ + + + | Result panel 955 | + + + + + + + + + | | 2021-07-26 | [facility] | Abnormal | (missing) | (missing) | | (unavailable | 09:10:18 | [facility] | | | | | | [facility] | | | | + + + + + + + + + | Result panel 956 | + + + + + +-------+---------+ + | | 2021-07-26 | [facility] | 217 | mg/dL | (missing) | | (unavailable | 15:40:32 | [facility] | | | | | | | [facility] Floor | | | | + + + +-------+---------+ + + + | Result panel 957 | + + + + + + + + + | | 2021-07-26 | [facility] | Abnormal | (missing) | (missing) | | (unavailable | 15:40:32 | [facility] | | | | | | [facility] | | | | + + + + + + + + + | Result panel 958 | + + + + + +-------+---------+ + | | 2021-07-26 | [facility] | 171 | mg/dL | (missing) | | (unavailable | 16:55:23 | [facility] | | | | | | | [facility] Floor | | | | + + + +-------+---------+ + + + | Result panel 959 | + + + + + + + + + | | 2021-07-26 | [facility] | Abnormal | (missing) | (missing) | | (unavailable | 16:55:23 | [facility] | | | | | | | [facility] Floor | | | | + + + + + + + + + | Result panel 960 | + + + + + +-------+---------+ + | | 2021-07-26 | [facility] | 255 | mg/dL | (missing) | | (unavailable | 19:30:20 | [facility] | | | | | | | [facility] Floor | | | | + + + +-------+---------+ + + + | Result panel 961 | + + + + + + + + + | | 2021-07-26 | [facility] | Abnormal | (missing) | (missing) | | (unavailable | 19:30:20 | [facility] | | | | | | | [facility] Floor | | | | + + + + + + + + + | Result panel 962 | + + + + + +-------+---------+ + | | 2021-07-26 | [facility] | 215 | mg/dL | (missing) | | (unavailable | 22:25:15 | [facility] | | | | | ) | | Acute [facility] | | | | | | | 7th Floor | | | | + + + +-------+---------+ + + + | Result panel 963 | + + + + + + + + + | | 2021-07-26 | [facility] | Abnormal | (missing) | (missing) | | (unavailable | [facility]:15 [facility] | | | | | | | [facility] | | | | + + + + + + + + + | Result panel 964 | + + + + + +-------+---------+ + | | 2021-07-27 | [facility] | 233 | mg/dL | (missing) | | (unavailable | [facility]:00:13 [facility] | | | | | | | [facility] Floor | | | | + + + +-------+---------+ + + + | Result panel 965 | + + + + + + + + + | | 2021-07-27 | [facility] | Abnormal | (missing) | (missing) | | (unavailable | [facility]:00:13 [facility] | | | | | | [facility] | | | | + + + + + + + + + | Result panel 966 | + + + + + +-------+---------+ + | | 2021-07-27 | [facility] | 165 | mg/dL | (missing) | | (unavailable | 03:35:18 [facility] | | | | | | | [facility] Floor | | | | + + + +-------+---------+ + + + | Result panel 967 | + + + + + + + + + | | 2021-07-27 | [facility] | Abnormal | (missing) | (missing) | | (unavailable | 03:35:18 [facility] | | | | | | | [facility] Floor | | | | + + + + + + + + + | Result panel 968 | + + + + + +-------+---------+ + | | 2021-07-27 | [facility] | 173 | mg/dL | (missing) | | (unavailable | 15:05:15 [facility] | | | | | | | [facility] Floor | | | | + + + +-------+---------+ + + + | Result panel 969 | + + + + + + + + + | | 2021-07-27 | [facility] | Abnormal | (missing) | (missing) | | (unavailable | 15:05:15 [facility] | | | | | | | [facility] Floor | | | | + + + + + + + + + | Result panel 970 | + + + + + + + + + | Pathology | 2021-07-27 | [facility] | Received | (missing) | (missing) | | Placental | 15:54:33 [facility] | [facility] | | | | | | | [facility] Floor | | | | + + + + + + + + + | Result panel 971 | + + + + + +-------+---------+ + | | 2021-07-27 | [facility] | 167 | mg/dL | (missing) | | (unavailable | 17:40:53 | [facility] | | | | | | | [facility] Floor | | | | + + + +-------+---------+ + + + | Result panel 972 | + + + + + + + + + | | 2021-07-27 | [facility] | Abnormal | (missing) | (missing) | | (unavailable | 17:40:53 [facility] | | | | | | | [facility] Floor | | | | + + + + + + + + + | Result panel 973 | + + + + + +-------+---------+ + | | 2021-07-27 | [facility] | 200 | mg/dL | (missing) | | (unavailable | 17:45:35 | [facility] | | | | | | | [facility] Floor | | | | + + + +-------+---------+ + + + | Result panel 974 | + + + + + + + + + | | 2021-07-27 | [facility] | Abnormal | (missing) | (missing) | | (unavailable | 17:45:35 [facility] | | | | | | | [facility] Floor | | | | + + + + + + + + + | Result panel 975 | + + + + + + + + + | Rubella IgG | 2021-07-27 | [facility] | Reactive | (missing) | (missing) | | | 20:20:43 [facility] | | | | | | | [facility] Floor | | | | + + + + + + + + + | Result panel 976 | + + + + + +--------+ + + | Rubella IgG | 2021-07-27 | [facility] | 29.6 | (missing) | (missing) | | Level | 20:20:43 | [facility] | | | | | | | [facility] Floor | | | | + + + +--------+ + + + + | Result panel 977 | + + + + + +-------+---------+ + | | 2021-07-27 | [facility] | 151 | mg/dL | (missing) | | (unavailable | 20:25:28 [facility] | | | | | | | [facility] Floor | | | | + + + +-------+---------+ + + + | Result panel 978 | + + + + + + + + + | | 2021-07-27 | [facility] | Abnormal | (missing) | (missing) | | (unavailable | 20:25:28 [facility] | | | | | | | [facility] Floor | | | | + + + + + + + + + | Result panel 979 | + + + + + +---------+ + + | | 2021-07-28 | [facility] | 18.20 | (missing) | (missing) | | (unavailable | 10:48:56 | [facility] | | | | ) | | [facility] | | | | | | | Specialties | | | | + + + +---------+ + + + + | Result panel 980 | + + + + + +--------+ + + | | 2021-07-28 | [facility] | 3.76 | (missing) | (missing) | | (unavailable | 10:48:56 | [facility] | | | | ) | | [facility] | | | | | | | Specialties | | | | + + + +--------+ + + + + | Result panel 981 | + + + + + +--------+ + + | | 2021-07-28 | [facility] | 10.9 | (missing) | (missing) | | (unavailable | 10:48:56 | [facility] | | | | ) | | [facility] | | | | | | | Specialties | | | | + + + +--------+ + + + + | Result panel 982 | + + + + + +--------+-----+ + | | 2021-07-28 | [facility] | 33.9 | % | (missing) | | (unavailable | 10:48:56 | [facility] | | | | ) | | [facility] | | | | | | | Specialties | | | | + + + +--------+-----+ + + + | Result panel 983 | + + + + + +--------+------+ + | | 2021-07-28 | [facility] | 90.2 | fL | (missing) | | (unavailable | 10:48:56 | [facility] | | | | | ) | | [facility] | | | | | | | Specialties | | | | + + + +--------+------+ + + + | Result panel 984 | + + + + + +--------+------+ + | | 2021-07-28 | [facility] | 29.0 | pg | (missing) | | (unavailable | 10:48:56 | [facility] | | | | ) | | [facility] | | | | | | | Specialties | | | | + + + +--------+------+ + + + | Result panel 985 | + + + + + +--------+ + + | | 2021-07-28 | [facility] | 32.2 | (missing) | (missing) | | (unavailable | 10:48:56 | [facility] | | | | ) | | [facility] | | | | | | | Specialties | | | | + + + +--------+ + + + + | Result panel 986 | + + + + + +--------+-----+ + | | 2021-07-28 | [facility] | 14.6 | % | (missing) | | (unavailable | 10:48:56 | [facility] | | | | ) | | [facility] | | | | | | | Specialties | | | | + + + +--------+-----+ + + + | Result panel 987 | + + + + + +-------+ + + | | 2021-07-28 | [facility] | 355 | (missing) | (missing) | | (unavailable | 10:48:56 | [facility] | | | | ) | | [facility] | | | | | | | Specialties | | | | + + + +-------+ + + + + | Result panel 988 | + + + + + +-------+------+ + | | 2021-07-28 | [facility] | 8.7 | fL | (missing) | | (unavailable | 10:48:56 | [facility] | | | | ) | | [facility] | | | | | | | Specialties | | | | + + + +-------+------+ + + + | Result panel 989 | + + + + + +--------+-----+ + | | 2021-07-28 | [facility] | 83.1 | % | (missing) | | (unavailable | 10:48:56 | [facility] | | | | ) | | [facility] | | | | | | | Specialties | | | | + + + +--------+-----+ + + + | Result panel 990 | + + + + + +-------+-----+ + | | 2021-07-28 | [facility] | 4.1 | % | (missing) | | (unavailable | 10:48:56 | [facility] | | | | ) | | [facility] | | | | | | | Specialties | | | | + + + +-------+-----+ + + + | Result panel 991 | + + + + + +-------+-----+ + | | 2021-07-28 | [facility] | 7.7 | % | (missing) | | (unavailable | 10:48:56 | [facility] | | | | | ) | | [facility] | | | | | | | Specialties | | | | + + + +-------+-----+ + + + | Result panel 992 | + + + + + +-------+-----+ + | | 2021-07-28 | [facility] | 0.6 | % | (missing) | | (unavailable | 10:48:56 | [facility] | | | | | ) | | [facility] | | | | | | | Specialties | | | | + + + +-------+-----+ + + + | Result panel 993 | + + + + + +-------+-----+ + | | 2021-07-28 | [facility] | 0.5 | % | (missing) | | (unavailable | 10:48:56 | [facility] | | | | | ) | | [facility] | | | | | | | Specialties | | | | + + + +-------+-----+ + + + | Result panel 994 | + + + + + +-------+-----+ + | | 2021-07-28 | [facility] | 4.0 | % | (missing) | | (unavailable | 10:48:56 | [facility] | | | | | ) | | [facility] | | | | | | | Specialties | | | | + + + +-------+-----+ + + + | Result panel 995 | + + + + + +-------+ + + | | 2021-07-28 | [facility] | 0.0 | (missing) | (missing) | | (unavailable | 10:48:56 | [facility] | | | | | ) | | [facility] | | | | | | | Specialties | | | | + + + +-------+ + + + + | Result panel 996 | + + + + + +---------+ + + | | 2021-07-28 | [facility] | 15.12 | (missing) | (missing) | | (unavailable | 10:48:56 | [facility] | | | | ) | | [facility] | | | | | | | Specialties | | | | + + + +---------+ + + + + | Result panel 997 | + + + + + +--------+ + + | | 2021-07-28 | [facility] | 0.75 | (missing) | (missing) | | (unavailable | 10:48:56 | [facility] | | | | ) | | [facility] | | | | | | | Specialties | | | | + + + +--------+ + + + + | Result panel 998 | + + + + + +--------+ + + | | 2021-07-28 | [facility] | 1.40 | (missing) | (missing) | | (unavailable | 10:48:56 | [facility] | | | | ) | | [facility] | | | | | | | Specialties | | | | + + + +--------+ + + + + | Result panel 999 | + + + + + +--------+ + + | | 2021-07-28 | [facility] | 0.11 | (missing) | (missing) | | (unavailable | 10:48:56 | [facility] | | | | ) | | [facility] | | | | | | | Specialties | | | | + + + +--------+ + + + + | Result panel 1000 | + + + + + +--------+ + + | | 2021-07-28 | [facility] | 0.09 | (missing) | (missing) | | (unavailable | 10:48:56 | [facility] | | | | ) | | [facility] | | | | | | | Specialties | | | | + + + +--------+ + + + + | Result panel 1001 | + + + + + +--------+ + + | | 2021-07-28 | [facility] | 0.73 | (missing) | (missing) | | (unavailable | 10:48:56 | [facility] | | | | ) | | [facility] | | | | | | | Specialties | | | | + + + +--------+ + + + + | Result panel 1002 | + + + + + +--------+ + + | | 2021-07-28 | [facility] | 0.00 | (missing) | (missing) | | (unavailable | 10:48:56 | [facility] | | | | ) | | [facility] | | | | | | | Specialties | | | | + + + +--------+ + + + + | Result panel 1003 | + + + + + + + + + | | 2021-07-28 | [facility] | Abnormal | (missing) | (missing) | | (unavailable | 10:48:56 | [facility] | | | | ) | | [facility] | | | | | | | Specialties | | | | + + + + + + + + + | Result panel 1004 | + + + + + +-------+ + + | | 2021-07-28 | [facility] | 133 | mmol/L | (missing) | | (unavailable | 11:03:50 | [facility] | | | | ) | | [facility] | | | | | | | Specialties | | | | + + + +-------+ + + + + | Result panel 1005 | + + + + + +-------+ + + | | 2021-07-28 | [facility] | 5.0 | mmol/L | (missing) | | (unavailable | 11:03:50 | [facility] | | | | ) | | [facility] | | | | | | | Specialties | | | | + + + +-------+ + + + + | Result panel 1006 | + + + + + +------+ + + | | 2021-07-28 | [facility] | 97 | mmol/L | (missing) | | (unavailable | 11:03:50 | [facility] | | | | ) | | [facility] | | | | | | | Specialties | | | | + + + +------+ + + + + | Result panel 1007 | + + + + + +------+ + + | | 2021-07-28 | [facility] | 22 | mmol/L | (missing) | | (unavailable | 11:03:50 | [facility] | | | | | ) | | [facility] | | | | | | | Specialties | | | | + + + +------+ + + + + | Result panel 1008 | + + + + + +------+ + + | Anion Gap | 2021-07-28 | [facility] | 14 | mmol/L | (missing) | | | 11:03:50 | [facility] | | | | | | [facility] | | | | | | | Specialties | | | | + + + +------+ + + + + | Result panel 1009 | + + + + + +------+---------+ + | | 2021-07-28 | [facility] | 50 | mg/dL | (missing) | | (unavailable | 11:03:50 | [facility] | | | | ) | | [facility] | | | | | | | Specialties | | | | + + + +------+---------+ + + + | Result panel 1010 | + + + + + +--------+---------+ + | | 2021-07-28 | [facility] | 1.72 | mg/dL | (missing) | | (unavailable | 11:03:50 | [facility] | | | | ) | | [facility] | | | | | | | Specialties | | | | + + + +--------+---------+ + + + | Result panel 1011 | + + + + + +-------+---------+ + | | 2021-07-28 | [facility] | 233 | mg/dL | (missing) | | (unavailable | 11:03:50 | [facility] | | | | ) | | [facility] | | | | | | | Specialties | | | | + + + +-------+---------+ + + + | Result panel 1012 | + + + + + +-------+---------+ + | | 2021-07-28 | [facility] | 9.8 | mg/dL | (missing) | | (unavailable | 11:03:50 | [facility] | | | | ) | | [facility] | | | | | | | Specialties | | | | + + + +-------+---------+ + + + | Result panel 1013 | + + + + + +-------+ + + | | 2021-07-28 | [facility] | 7.0 | (missing) | (missing) | | (unavailable | 11:03:50 | [facility] | | | | ) | | [facility] | | | | | | | Specialties | | | | + + + +-------+ + + + + | Result panel 1014 | + + + + + +-------+ + + | | 2021-07-28 | [facility] | 3.2 | (missing) | (missing) | | (unavailable | 11:03:50 | [facility] | | | | ) | | [facility] | | | | | | | Specialties | | | | + + + +-------+ + + + + | Result panel 1015 | + + + + + +------+-------+ + | | 2021-07-28 | [facility] | 30 | U/L | (missing) | | (unavailable | 11:03:50 | [facility] | | | | ) | | [facility] | | | | | | | Specialties | | | | + + + +------+-------+ + + + | Result panel 1016 | + + + + + +------+-------+ + | | 2021-07-28 | [facility] | 30 | U/L | (missing) | | (unavailable | 11:03:50 | [facility] | | | | ) | | [facility] | | | | | | | Specialties | | | | + + + +------+-------+ + + + | Result panel 1017 | + + + + + +------+-------+ + | | 2021-07-28 | [facility] | 80 | U/L | (missing) | | (unavailable | 11:03:50 | [facility] | | | | ) | | [facility] | | | | | | | Specialties | | | | + + + +------+-------+ + + + | Result panel 1018 | + + + + + +-------+---------+ + | | 2021-07-28 | [facility] | 0.4 | mg/dL | (missing) | | (unavailable | 11:03:50 | [facility] | | | | ) | | [facility] | | | | | | | Specialties | | | | + + + +-------+---------+ + + + | Result panel 1019 | + + + + + + + + + | | 2021-07-28 | [facility] | Abnormal | (missing) | (missing) | | (unavailable | 11:03:50 | [facility] | | | | | ) | | [facility] | | | | | | | Specialties | | | | + + + + + + + + + | Result panel 1020 | + + + + + + + + + | | 2021-07-28 | [facility] | (missing) | (missing) | (missing) | | (unavailable | 12:03:52 | [facility] | | | | | ) | | [facility] | | | | | | | Specialties | | | | + + + + + + + + + | Result panel 1021 | + + + + + + + + + | Abdomen | 2021-07-28 | [facility] | (missing) | (missing) | (missing) | | | 12:03:52 | [facility] | | | | | | [facility] | | | | | | | Specialties | | | | + + + + + + + + + | Result panel 1022 | + + + + + +-------+ + + | Lactate | 2021-07-28 | [facility] | 1.1 | mmol/L | (missing) | | POCT | 13:15:27 | [facility] | | | | | | [facility] | | | | | | | Specialties | | | | + + + +-------+ + + + + | Result panel 1023 | + + + + + +------+-------+ + | | 2021-07-28 | [facility] | 23 | U/L | (missing) | | (unavailable | 14:59:23 | [facility] | | | | | ) | | [facility] | | | | | | | Specialties | | | | + + + +------+-------+ + + + | Result panel 1024 | + + + + + + + + + | | 2021-07-28 | [facility] | (missing) | (missing) | (missing) | | (unavailable | 16:20:19 | [facility] | | | | ) | | [facility] | | | | | | | Specialties | | | | + + + + + + + + + | Result panel 1025 | + + + + + + + + + | | 2021-07-28 | [facility] | (missing) | (missing) | (missing) | | (unavailable | 16:20:19 | [facility] | | | | | ) | | [facility] | | | | | | | Specialties | | | | + + + + + + + + + | Result panel 1026 | + + + + + + + + + | | 2021-07-28 | [facility] | (missing) | (missing) | (missing) | | (unavailable | 17:36 | [facility] | | | | | ) | | [facility] | | | | | | | Specialties | | | | + + + + + + + + + | Result panel 1027 | + + + + + + + + + | Abdomen | 2021-07-28 | [facility] | (missing) | (missing) | (missing) | | | 17:36 | [facility] | | | | | | [facility] | | | | | | | Specialties | | | | + + + + + + + + + | Result panel 1028 | + + + + + + + + + | UA Color | 2021-07-28 | [facility] | Yellow | (missing) | (missing) | | | 19:00:04 | [facility] | | | | | | [facility] | | | | | | | Specialties | | | | + + + + + + + + + | Result panel 1029 | + + + + + +---------+ + + | UA | 2021-07-28 | [facility] | Clear | (missing) | (missing) | | Turbidity | 19:00:04 | [facility] | | | | | | [facility] | | | | | | | Specialties | | | | + + + +---------+ + + + + | Result panel 1030 | + + + + + +---------+ + + | UA Glucose | 2021-07-28 | [facility] | Trace | (missing) | (missing) | | | 19:00:04 | [facility] | | | | | | [facility] | | | | | | | Specialties | | | | + + + +---------+ + + + + | Result panel 1031 | + + + + + + + + + | UA | 2021-07-28 | [facility] | Negative | (missing) | (missing) | | Bilirubin | 19:00:04 | [facility] | | | | | | [facility] | | | | | | | Specialties | | | | + + + + + + + + + | Result panel 1032 | + + + + + + + + + | UA Ketones | 2021-07-28 | [facility] | Negative | (missing) | (missing) | | | 19:00:04 | [facility] | | | | | | [facility] | | | | | | | Specialties | | | | + + + + + + + + + | Result panel 1033 | + + + + + +--------+ + + | UA Specific | 2021-07-28 | [facility] | 1.02 | (missing) | (missing) | | [place] | 19:00:04 | [facility] | | | | | | [facility] | | | | | | | Specialties | | | | + + + +--------+ + + + + | Result panel 1034 | + + + + + +------+ + + | UA Blood | 2021-07-28 | [facility] | 2+ | (missing) | (missing) | | | 19:00:04 | [facility] | | | | | | [facility] | | | | | | | Specialties | | | | + + + +------+ + + + + | Result panel 1035 | + + +---------+ + +-------+ + + | UA pH | 2021-07-28 | [facility] | 5.5 | (missing) | (missing) | | | 19:00:04 | [facility] | | | | | | [facility] | | | | | | | Specialties | | | | +---------+ + +-------+ + + + + | Result panel 1036 | + + + + + + + + + | UA Albumin | 2021-07-28 | [facility] | Negative | (missing) | (missing) | | | 19:00:04 | [facility] | | | | | | [facility] | | | | | | | Specialties | | | | + + + + + + + + + | Result panel 1037 | + + + + + + + + + | UA | 2021-07-28 | [facility] | Negative | (missing) | (missing) | | Leukocyte | 19:00:04 | [facility] | | | | | Esterase | | Surgical | | | | | | | Specialties | | | | + + + + + + + + + | Result panel 1038 | + + + + + + + + + | UA Nitrite | 2021-07-28 | [facility] | Negative | (missing) | (missing) | | | 19:00:04 | [facility] | | | | | | | [facility] | | | | | | | Specialties | | | | + + + + + + + + + | Result panel 1039 | + + + + + +--------+ + + | UA WBC/hpf | 2021-07-28 | [facility] | 5-10 | (missing) | (missing) | | | 19:00:04 | [facility] | | | | | | [facility] | | | | | | | Specialties | | | | + + + +--------+ + + + + | Result panel 1040 | + + + + + +---------+ + + | UA RBC/HPF | 2021-07-28 | [facility] | 10-20 | (missing) | (missing) | | | 19:00:04 | [facility] | | | | | | [facility] | | | | | | | Specialties | | | | + + + +---------+ + + + + | Result panel 1041 | + + + + + +--------+ + + | UA Bacteria | 2021-07-28 | [facility] | Rare | (missing) | (missing) | | | 19:00:04 | [facility] | | | | | | [facility] | | | | | | | Specialties | | | | + + + +--------+ + + + + | Result panel 1042 | + + + + + +--------+ + + | UA | 2021-07-28 | [facility] | Rare | (missing) | (missing) | | Epithelial | 19:00:04 | [facility] | | | | | Cell | | Surgical | | | | | | | Specialties | | | | + + + +--------+ + + + + | Result panel 1043 | + + + + + +------+ + + | UA Cult | 2021-07-28 | [facility] | No | (missing) | (missing) | | Reflex? | 19:00:04 | [facility] | | | | | | [facility] | | | | | | | Specialties | | | | + + + +------+ + + + + | Result panel 1044 | + + + + + + + + + | | 2021-07-28 | [facility] | Abnormal | (missing) | (missing) | | (unavailable | 19:00:04 | [facility] | | | | | ) | | Surgical | | | | | | | Specialties | | | | + + + + + + + + + | Result panel 1045 | + + + + + +------+-------+ + | | 2021-07-28 | [facility] | 27 | U/L | (missing) | | (unavailable | 19:07:24 | [facility] | | | | | ) | | Surgical | | | | | | | Specialties | | | | + + + +------+-------+ + + + | Result panel 1046 | + + + + + + + + + | BF Type for | 2021-07-28 | [facility] | Peritoneal | (missing) | (missing) | | Amylase | 19::24 | [facility] | | | | | | [facility] | | | | | | | Specialties | | | | + + + + + + + + + | Result panel 1047 | + + + + + +------+---------+ + | BF Urea | 2021-07-28 | [facility] | 76 | mg/dL | (missing) | | Nitrogen | :24 | [facility] | | | | | | | Surgical | | | | | | | Specialties | | | | + + + +------+---------+ + + + | Result panel 1048 | + + + + + + + + + | BF Type for | 2021-07-28 | [facility] | Peritoneal | (missing) | (missing) | | Urea | ::24 | [facility] | | | | | Nitrogen | | Surgical | | | | | | | Specialties | | | | + + + + + + + + + | Result panel 1049 | + + + + + +-------+---------+ + | | 2021-07-28 | [facility] | 0.2 | mg/dL | (missing) | | (unavailable | 19:07:24 | [facility] | | | | | ) | | Surgical | | | | | | | Specialties | | | | + + + +-------+---------+ + + + | Result panel 1050 | + + + + + + + + + | BF Type for | 2021-07-28 | [facility] | Peritoneal | (missing) | (missing) | | Bilirubin | 19:07:24 | [facility] | | | | | | | Surgical | | | | | | | Specialties | | | | + + + + + + + + + | Result panel 1051 | + + + + + +------+ + + | | 2021-07-28 | [facility] | <3 | (missing) | (missing) | | (unavailable | 19:32:42 | [facility] | | | | | ) | | Surgical | | | | | | | Specialties | | | | + + + +------+ + + + + | Result panel 1052 | + + + + + + + + + | BF Type for | 2021-07-28 | [facility] | Peritoneal | (missing) | (missing) | | Lipase | 19:32:42 | [facility] | | | | | | | [facility] | | | | | | | Specialties | | | | + + + + + + + + + | Result panel 1053 | + + + + + + + + + | BF Type CC | 2021-07-28 | [facility] | Peritoneal | (missing) | (missing) | | | 19:45:50 | [facility] | | | | | | | [facility] | | | | | | | Specialties | | | | + + + + + + + + + | Result panel 1054 | + + + + + + + + + | | 2021-07-28 | [facility] | Yellow | (missing) | (missing) | | (unavailable | 19:45:50 | [facility] | | | | | ) | | [facility] | | | | | | | Specialties | | | | + + + + + + + + + | Result panel 1055 | + + + + + + + + + | | 2021-07-28 | [facility] | Cloudy | (missing) | (missing) | | (unavailable | 19:45:50 | [facility] | | | | | ) | | [facility] | | | | | | | Specialties | | | | + + + + + + + + + | Result panel 1056 | + + + + + +--------+-------+ + | | 2021-07-28 | [facility] | 2995 | /ul | (missing) | | (unavailable | 19:45:50 | [facility] | | | | | ) | | [facility] | | | | | | | Specialties | | | | + + + +--------+-------+ + + + | Result panel 1057 | + + + + + +---------+-------+ + | | 2021-07-28 | [facility] | [id number] | /ul | (missing) | | (unavailable | 19:45:50 | [facility] | | | | | ) | | [facility] | | | | | | | Specialties | | | | + + + +---------+-------+ + + + | Result panel 1058 | + + + + + +------+-----+ + | | 2021-07-28 | [facility] | 78 | % | (missing) | | (unavailable | 19:45:50 | [facility] | | | | | ) | | [facility] | | | | | | | Specialties | | | | + + + +------+-----+ + + + | Result panel 1059 | + + + + + +------+-----+ + | | 2021-07-28 | [facility] | 22 | % | (missing) | | (unavailable | 19:45:50 | [facility] | | | | | | [facility] | | | | + + + +------+-----+ + + + | Result panel 1060 | + + + + + +-------+ + + | | 2021-07-28 | [facility] | 100 | (missing) | (missing) | | (unavailable | 19:45:50 | [facility] | | | | | | [facility] | | | | + + + +-------+ + + + + | Result panel 1061 | + + + + + + + + + | | 2021-07-28 | [facility] | Abnormal | (missing) | (missing) | | (unavailable | 19:45:50 | [facility] | [facility] | | | | [facility] | | | | + + + + + + + + + | Result panel 1062 | + + + + + +-------+---------+ + | | 2021-07-28 | [facility] | 6.7 | mg/dL | (missing) | | (unavailable | 19:52:52 | [facility] | | | | | | [facility] | | | | + + + +-------+---------+ + + + | Result panel 1063 | + + + + + + + + + | BF Type for | 2021-07-28 | [facility] | Peritoneal | (missing) | (missing) | | Creatinine | 19:52:52 | [facility] | | | | | | [facility] | | | | + + + + + + + + + | Result panel 1064 | + + + + + +-------+---------+ + | | 2021-07-28 | [facility] | 850 | mg/dL | (missing) | | (unavailable | 19:53:05 | [facility] | | | | | | [facility] | | | | + + + +-------+---------+ + + + | Result panel 1065 | + + + + + +------+---------+ + | | 2021-07-28 | [facility] | 65 | mg/dL | (missing) | | (unavailable | 19:53:12 | [facility] | | | | | | [facility] | | | | + + + +------+---------+ + + + | Result panel 1066 | + + + + + + + + + | | 2021-07-28 | [facility] | (missing) | (missing) | (missing) | | (unavailable | 22:32:43 | [facility] | | | | | | [facility] | | | | + + + + + + + + + | Result panel 1067 | + + + + + + + + + | Abdomen | 2021-07-28 | [facility] | (missing) | (missing) | (missing) | | | 22:32:43 | [facility] | | | | | | [facility] | | | | + + + + + + + + + | Result panel 1068 | + + + + + + + + + | | 2021-07-28 | [facility] | (missing) | (missing) | (missing) | | (unavailable | 22:43:40 | [facility] | | | | | | [facility] | | | | + + + + + + + + + | Result panel 1069 | + + + + + + + + + | | 2021-07-28 | [facility] | (missing) | (missing) | (missing) | | (unavailable | 22:43:40 | [facility] | | | | | | [facility] | | | | + + + + + + + + + | Result panel 1070 | + + + + + + + + + | | 2021-07-28 | [facility] | (missing) | (missing) | (missing) | | (unavailable | 22:56:32 | [facility] | | | | | | | [address] | | | | + + + + + + + + + | Result panel 1071 | + + + + + + + + + | | 2021-07-28 | [facility] | (missing) | (missing) | (missing) | | (unavailable | 23:19:57 | [facility] | | | | | ) | | Surgical | | | | | | | Specialties | | | | + + + + + + + + + | Result panel 1072 | + + + + + + + + + | | 2021-07-28 | [facility] | (missing) | (missing) | (missing) | | (unavailable | 23:19:57 | [facility] | | | | | ) | | [facility] | | | | | | | Specialties | | | | + + + + + + + + + | Result panel 1073 | + + + + + +-------+---------+ + | | 2021-07-28 | [facility] | 111 | mg/dL | (missing) | | (unavailable | 23:20:35 | [facility] | | | | | ) | | Surgical | | | | | | | Specialties | | | | + + + +-------+---------+ + + + | Result panel 1074 | + + + + + + + + + | | 2021-07-28 | [facility] | Abnormal | (missing) | (missing) | | (unavailable | 23:20:35 | [facility] | | | | | ) | | Surgical | | | | | | | Specialties | | | | + + + + + + + + + | Result panel 1075 | + + + + + + + + + | SARS-CoV-2 | 2021-07-28 | [facility] | Not | (missing) | (missing) | | PCR Interp | 23:48:48 | [facility] | Detected | | | | | | Surgical | | | | | | | Specialties | | | | + + + + + + + + + | Result panel 1076 | + + + + + + + + + | Influ A PCR | 2021-07-28 | [facility] | Not | (missing) | (missing) | | | 23:48:48 | [facility] | Detected | | | | | | Surgical | | | | | | | Specialties | | | | + + + + + + + + + | Result panel 1077 | + + + + + + + + + | Influ B by | 2021-07-28 | [facility] | Not | (missing) | (missing) | | PCR | 23:48:48 | [facility] | Detected | | | | | | Surgical | | | | | | | Specialties | | | | + + + + + + + + + | Result panel 1078 | + + + + + + + + + | RSV by PCR | 2021-07-28 | [facility] | Not | (missing) | (missing) | | | 23:48:48 | [facility] | Detected | | | | | | Surgical | | | | | | | Specialties | | | | + + + + + + + + + | Result panel 1079 | + + + + + + + + + | RVP PCR | 2021-07-28 | [facility] | [employer] Swab | (missing) | (missing) | | specimen | 23:48:48 | [facility] | | | | | | | Surgical | | | | | | | Specialties | | | | + + + + + + + + + | Result panel 1080 | + + + + + +---------+ + + | ABORH INT | 2021-07-29 | [facility] | A POS | (missing) | (missing) | | | 00:32:01 | [facility] | | | | | | | Surgical | | | | | | | Specialties | | | | + + + +---------+ + + + + | Result panel 1081 | + + + + + +---------+ + + | Type & | 2021-07-29 | [facility] | Ready | (missing) | (missing) | | Screen | 00:54:17 | [facility] | | | | | Request | | Surgical | | | | | | | Specialties | | | | + + + +---------+ + + + + | Result panel 1082 | + + + + + + + + + | Antibody | 2021-07-29 | [facility] | Negative | (missing) | (missing) | | Screen | 00:54:17 | [facility] | [facility] | | | | | | Surgical | | | | | | | Specialties | | | | + + + + + + + + + | Result panel 1083 | + + + + + + + + + | | 2021-07-29 | [facility] | (missing) | (missing) | (missing) | | (unavailable | 00:55 | [facility] | | | | | ) | | Surgical | | | | | | | Specialties | | | | + + + + + + + + + | Result panel 1084 | + + + + + +------+---------+ + | | 2021-07-29 | [facility] | 81 | mg/dL | (missing) | | (unavailable | 01:30:17 | [facility] | | | | | ) | | Surgical | | | | | | | Specialties | | | | + + + +------+---------+ + + + | Result panel 1085 | + + + + + +-------+---------+ + | | 2021-07-29 | [facility] | 172 | mg/dL | (missing) | | (unavailable | 05:40:30 | [facility] | | | | | ) | | Surgical | | | | | | | Specialties | | | | + + + +-------+---------+ + + + | Result panel 1086 | + + + + + + + + + | | 2021-07-29 | [facility] | Abnormal | (missing) | (missing) | | (unavailable | 05:40:30 | [facility] | | | | | ) | | Surgical | | | | | | | Specialties | | | | + + + + + + + + + | Result panel 1087 | + + + + + + + + + | Cyto BF - | 2021-07-29 | [facility] | Received | (missing) | (missing) | | See | 12:47:42 | [facility] | | | | | Pathology | | Surgical | | | | | | | Specialties | | | | + + + + + + + + + | Result panel 1088 | + + + + + + + + + | | 2021-07-29 | [facility] | (missing) | (missing) | (missing) | | (unavailable | 15:10:05 | [facility] | | | | | ) | | Surgical | | | | | | | Specialties | | | | + + + + + + + + + | Result panel 1089 | + + + + + + + + + | | 2021-07-29 | [facility] | (missing) | (missing) | (missing) | | (unavailable | 15:10:05 | [facility] | | | | | ) | | Surgical | | | | | | | Specialties | | | | + + + + + + + + + | Result panel 1090 | + + + + + +-------+---------+ + | | 2021-07-29 | [facility] | 305 | mg/dL | (missing) | | (unavailable | 16:30:13 | [facility] | | | | | ) | | Surgical | | | | | | | Specialties | | | | + + + +-------+---------+ + + + | Result panel 1091 | + + + + + + + + + | | 2021-07-29 | [facility] | Abnormal | (missing) | (missing) | | (unavailable | 16:30:13 | [facility] | | | | | ) | | Surgical | | | | | | | Specialties | | | | + + + + + + + + + | Result panel 1092 | + + + + + +---------+ + + | | 2021-07-29 | [facility] | 13.97 | (missing) | (missing) | | (unavailable | 19:02:50 | [facility] | | | | | ) | | Surgical | | | | | | | Specialties | | | | + + + +---------+ + + + + | Result panel 1093 | + + + + + +--------+ + + | | 2021-07-29 | [facility] | 3.52 | (missing) | (missing) | | (unavailable | 19:02:50 | [facility] | | | | | ) | | Surgical | | | | | | | Specialties | | | | + + + +--------+ + + + + | Result panel 1094 | + + + + + +--------+ + + | | 2021-07-29 | [facility] | 10.1 | (missing) | (missing) | | (unavailable | 19:02:50 | [facility] | | | | | ) | | Surgical | | | | | | | Specialties | | | | + + + +--------+ + + + + | Result panel 1095 | + + + + + +--------+-----+ + | | 2021-07-29 | [facility] | 33.4 | % | (missing) | | (unavailable | 19:02:50 | [facility] | | | | | ) | | Surgical | | | | | | | Specialties | | | | + + + +--------+-----+ + + + | Result panel 109 | + + + + + +--------+------+ + | | 2021-07-29 | [facility] | 94.9 | fL | (missing) | | (unavailable | 19:02:50 | [facility] | | | | | ) | | Surgical | | | | | | | Specialties | | | | + + + +--------+------+ + + + | Result panel 1097 | + + + + + +--------+------+ + | | 2021-07-29 | [facility] | 28.7 | pg | (missing) | | (unavailable | 19:02:50 | [facility] | | | | | ) | | Surgical | | | | | | | Specialties | | | | + + + +--------+------+ + + + | Result panel 1098 | + + + + + +--------+ + + | | 2021-07-29 | [facility] | 30.2 | (missing) | (missing) | | (unavailable | 19:02:50 | [facility] | | | | | ) | | Surgical | | | | | | | Specialties | | | | + + + +--------+ + + + + | Result panel 1099 | + + + + + +--------+-----+ + | | 2021-07-29 | [facility] | 14.7 | % | (missing) | | (unavailable | 19:02:50 | [facility] | | | | | ) | | Surgical | | | | | | | Specialties | | | | + + + +--------+-----+ + + + | Result panel 1100 | + + + + + +-------+ + + | | 2021-07-29 | [facility] | 319 | (missing) | (missing) | | (unavailable | 19:02:50 | [facility] | | | | | ) | | Surgical | | | | | | | Specialties | | | | + + + +-------+ + + + + | Result panel 1101 | + + + + + +-------+------+ + | | 2021-07-29 | [facility] | 8.7 | fL | (missing) | | (unavailable | 19:02:50 | [facility] | | | | | ) | | Surgical | | | | | | | Specialties | | | | + + + +-------+------+ + + + | Result panel 1102 | + + + + + +-------+ + + | | 2021-07-29 | [facility] | 0.0 | (missing) | (missing) | | (unavailable | 19:02:50 | [facility] | | | | | ) | | Surgical | | | | | | | Specialties | | | | + + + +-------+ + + + + | Result panel 1103 | + + + + + +--------+ + + | | 2021-07-29 | [facility] | 0.00 | (missing) | (missing) | | (unavailable | 19:02:50 | [facility] | | | | | ) | | Surgical | | | | | | | Specialties | | | | + + + +--------+ + + + + | Result panel 1104 | + + + + + + + + + | | 2021-07-29 | [facility] | Abnormal | (missing) | (missing) | | (unavailable | 19:02:50 | [facility] | | | | | ) | | Surgical | | | | | | | Specialties | | | | + + + + + + + + + | Result panel 1105 | + + + + + +-------+---------+ + | | 2021-07-29 | [facility] | 304 | mg/dL | (missing) | | (unavailable | 19:50:34 | [facility] | | | | | ) | | Surgical | | | | | | | Specialties | | | | + + + +-------+---------+ + + + | Result panel 1106 | + + + + + + + + + | | 2021-07-29 | [facility] | Abnormal | (missing) | (missing) | | (unavailable | 19:50:34 | [facility] | | | | | ) | | Surgical | | | | | | | Specialties | | | | + + + + + + + + + | Result panel 1107 | + + + + + +-------+ + + | | 2021-07-29 | [facility] | 130 | mmol/L | (missing) | | (unavailable | 19:53:25 | [facility] | | | | | ) | | Surgical | | | | | | | Specialties | | | | + + + +-------+ + + + + | Result panel 1108 | + + + + + +-------+ + + | | 2021-07-29 | [facility] | 4.5 | mmol/L | (missing) | | (unavailable | 19:53:25 | [facility] | | | | | ) | | Surgical | | | | | | | Specialties | | | | + + + +-------+ + + + + | Result panel 1109 | + + + + + +------+ + + | | 2021-07-29 | [facility] | 98 | mmol/L | (missing) | | (unavailable | 19:53:25 | [facility] | | | | | ) | | Surgical | | | | | | | Specialties | | | | + + + +------+ + + + + | Result panel 1110 | + + + + + +------+ + + | | 2021-07-29 | [facility] | 23 | mmol/L | (missing) | | (unavailable | 19:53:25 | [facility] | | | | | ) | | Surgical | | | | | | | Specialties | | | | + + + +------+ + + + + | Result panel 1111 | + + + + + +-----+ + + | Anion Gap | 2021-07-29 | [facility] | 9 | mmol/L | (missing) | | | 19:53:25 | [facility] | | | | | | | Surgical | | | | | | | Specialties | | | | + + + +-----+ + + + + | Result panel 1112 | + + + + + +------+---------+ + | | 2021-07-29 | [facility] | 18 | mg/dL | (missing) | | (unavailable | 19:53:25 | [facility] | | | | | ) | | Surgical | | | | | | | Specialties | | | | + + + +------+---------+ + + + | Result panel 1113 | + + + + + +--------+---------+ + | | 2021-07-29 | [facility] | 0.66 | mg/dL | (missing) | | (unavailable | 19:53:25 | [facility] | | | | | ) | | Surgical | | | | | | | Specialties | | | | + + + +--------+---------+ + + + | Result panel 1114 | + + + + + +-------+---------+ + | | 2021-07-29 | [facility] | 320 | mg/dL | (missing) | | (unavailable | 19:53:25 | [facility] | | | | | ) | | Surgical | | | | | | | Specialties | | | | + + + +-------+---------+ + + + | Result panel 1115 | + + + + + +-------+---------+ + | | 2021-07-29 | [facility] | 7.9 | mg/dL | (missing) | | (unavailable | 19:53:25 | [facility] | | | | | ) | | Surgical | | | | | | | Specialties | | | | + + + +-------+---------+ + + + | Result panel 1116 | + + + + + +-------+---------+ + | | 2021-07-29 | [facility] | 2.6 | mg/dL | (missing) | | (unavailable | 19:53:25 | [facility] | | | | | ) | | Surgical | | | | | | | Specialties | | | | + + + +-------+---------+ + + + | Result panel 1117 | + + + + + +-------+ + + | | 2021-07-29 | [facility] | 2.7 | (missing) | (missing) | | (unavailable | 19:53:25 | [facility] | | | | | ) | | Surgical | | | | | | | Specialties | | | | + + + +-------+ + + + + | Result panel 1118 | + + + + + + + + + | | 2021-07-29 | [facility] | Abnormal | (missing) | (missing) | | (unavailable | 19:53:25 | [facility] | | | | | ) | | Surgical | | | | | | | Specialties | | | | + + + + + + + + + | Result panel 1119 | + + + + + +---------+ + + | Red Cell | 2021-07-29 | [facility] | Ready | (missing) | (missing) | | Products | 21:12:31 | [facility] | | | | | | | Surgical | | | | | | | Specialties | | | | + + + +---------+ + + + + | Result panel 1120 | + + + + + + + + + | | 2021-07-29 | [facility] | (missing) | (missing) | (missing) | | (unavailable | 21:39:18 | [facility] | | | | | ) | | Surgical | | | | | | | Specialties | | | | + + + + + + + + + | Result panel 1121 | + + + + + +-------+---------+ + | | 2021-07-29 | [facility] | 197 | mg/dL | (missing) | | (unavailable | 22:25:18 | [facility] | | | | | ) | | Surgical | | | | | | | Specialties | | | | + + + +-------+---------+ + + + | Result panel 1122 | + + + + + + + + + | | 2021-07-29 | [facility] | Abnormal | (missing) | (missing) | | (unavailable | 22:25:18 | [facility] | | | | | ) | | Surgical | | | | | | | Specialties | | | | + + + + + + + + + | Result panel 1123 | + + + + + +-------+---------+ + | | 2021-07-29 | [facility] | 172 | mg/dL | (missing) | | (unavailable | 23:40:23 | [facility] | | | | | ) | | Surgical | | | | | | | Specialties | | | | + + + +-------+---------+ + + + | Result panel 1124 | + + + + + + + + + | | 2021-07-29 | [facility] | Abnormal | (missing) | (missing) | | (unavailable | 23:40:23 | [facility] | | | | | ) | | Surgical | | | | | | | Specialties | | | | + + + + + + + + + | Result panel 1125 | + + + + + +-------+---------+ + | | 2021-07-30 | [facility] | 136 | mg/dL | (missing) | | (unavailable | 01:00:37 | [facility] | | | | | ) | | Surgical | | | | | | | Specialties | | | | + + + +-------+---------+ + + + | Result panel 1126 | + + + + + + + + + | | 2021-07-30 | [facility] | Abnormal | (missing) | (missing) | | (unavailable | 01:00:37 | [facility] | | | | | ) | | Surgical | | | | | | | Specialties | | | | + + + + + + + + + | Result panel 1127 | + + + + + +-------+---------+ + | | 2021-07-30 | [facility] | 196 | mg/dL | (missing) | | (unavailable | 03:35:29 | [facility] | | | | | ) | | Surgical | | | | | | | Specialties | | | | + + + +-------+---------+ + + + | Result panel 1128 | + + + + + + + + + | | 2021-07-30 | [facility] | Abnormal | (missing) | (missing) | | (unavailable | 03:35:29 | [facility] | | | | | ) | | Surgical | | | | | | | Specialties | | | | + + + + + + + + + | Result panel 1129 | + + + + + +-------+---------+ + | | 2021-07-30 | [facility] | 259 | mg/dL | (missing) | | (unavailable | 06:15:20 | [facility] | | | | | ) | | Surgical | | | | | | | Specialties | | | | + + + +-------+---------+ + + + | Result panel 1130 | + + + + + + + + + | | 2021-07-30 | [facility] | Abnormal | (missing) | (missing) | | (unavailable | 06:15:20 | [facility] | | | | | ) | | Surgical | | | | | | | Specialties | | | | + + + + + + + + + | Result panel 1131 | + + + + + +-------+---------+ + | | 2021-07-30 | [facility] | 305 | mg/dL | (missing) | | (unavailable | 15:25:23 | [facility] | | | | | ) | | Surgical | | | | | | | Specialties | | | | + + + +-------+---------+ + + + | Result panel 1132 | + + + + + + + + + | | 2021-07-30 | [facility] | Abnormal | (missing) | (missing) | | (unavailable | 15:25:23 | [facility] | | | | | ) | | Surgical | | | | | | | Specialties | | | | + + + + + + + + + | Result panel 1133 | + + + + + +-------+---------+ + | | 2021-07-31 | [facility] | 0.4 | mg/dL | (missing) | | (unavailable | 16:01:16 | [facility] | | | | | ) | | Surgical | | | | | | | Specialties | | | | + + + +-------+---------+ + + + | Result panel 1134 | + + + + + + + + + | BF Type for | 2021-07-31 | [facility] | Peritoneal | (missing) | (missing) | | Creatinine | 16:01:16 | [facility] | | | | | | | Surgical | | | | | | | Specialties | | | | + + + + + + + + + | Result panel 1135 | + + + + + + + + + | | 2021-08-01 | [facility] | (missing) | (missing) | (missing) | | (unavailable | 04:16:45 | [facility] | | | | | ) | | Surgical | | | | | | | Specialties | | | | + + + + + + + + + | Result panel 1136 | + + + + + + + + + | Abdomen | 2021-08-01 | [facility] | (missing) | (missing) | (missing) | | | 04:16:45 | [facility] | | | | | | Surgical | | | | | | | Specialties | | | | + + + + + + + + + | Result panel 1137 | + + + + + + + + + | | 2021-08-01 | [facility] | (missing) | (missing) | (missing) | | (unavailable | 04:37:55 | [facility] | | | | | ) | | Surgical | | | | | | | Specialties | | | | + + + + + + + + + | Result panel 1138 | + + + + + + + + + | | 2021-08-01 | [facility] | (missing) | (missing) | (missing) | | (unavailable | 04:37:55 | [facility] | | | | | ) | | Surgical | | | | | | | Specialties | | | | + + + + + + + + + | Result panel 1139 | + + + + + +-------+ + + | | 2021-08-01 | [facility] | 2.1 | mmol/L | (missing) | | (unavailable | 05:12:06 | [facility] | | | | | ) | | Surgical | | | | | | | Specialties | | | | + + + +-------+ + + + + | Result panel 1140 | + + + + + + + + + | | 2021-08-01 | [facility] | Abnormal | (missing) | (missing) | | (unavailable | 05:12:06 | [facility] | | | | | ) | | Surgical | | | | | | | Specialties | | | | + + + + + + + + + | Result panel 1141 | + + + + + +-------+---------+ + | | 2021-08-01 | [facility] | 1.1 | mg/dL | (missing) | | (unavailable | 05:12:22 | [facility] | | | | | ) | | Surgical | | | | | | | Specialties | | | | + + + +-------+---------+ + + + | Result panel 1142 | + + + + + + + + + | | 2021-08-01 | [facility] | Abnormal | (missing) | (missing) | | (unavailable | 05:12:22 | [facility] | | | | | ) | | Surgical | | | | | | | Specialties | | | | + + + + + + + + + | Result panel 1143 | + + + + + +------+---------+ + | | 2021-08-01 | [facility] | 80 | pg/mL | (missing) | | (unavailable | 05:36:15 | [facility] | | | | | ) | | Surgical | | | | | | | Specialties | | | | + + + +------+---------+ + + + | Result panel 1144 | + + + + + +---------+ + + | | 2021-08-01 | [facility] | 11.60 | (missing) | (missing) | | (unavailable | 05:41:19 | [facility] | | | | | ) | | Surgical | | | | | | | Specialties | | | | + + + +---------+ + + + + | Result panel 1145 | + + + + + +--------+ + + | | 2021-08-01 | [facility] | 3.24 | (missing) | (missing) | | (unavailable | 05:41:19 | [facility] | | | | | ) | | Surgical | | | | | | | Specialties | | | | + + + +--------+ + + + + | Result panel 1146 | + + + + + +-------+ + + | | 2021-08-01 | [facility] | 9.3 | (missing) | (missing) | | (unavailable | 05:41:19 | [facility] | | | | | ) | | Surgical | | | | | | | Specialties | | | | + + + +-------+ + + + + | Result panel 1147 | + + + + + +--------+-----+ + | | 2021-08-01 | [facility] | 29.4 | % | (missing) | | (unavailable | 05:41:19 | [facility] | | | | | ) | | Surgical | | | | | | | Specialties | | | | + + + +--------+-----+ + + + | Result panel 1148 | + + + + + +--------+------+ + | | 2021-08-01 | [facility] | 90.7 | fL | (missing) | | (unavailable | 05:41:19 | [facility] | | | | | ) | | Surgical | | | | | | | Specialties | | | | + + + +--------+------+ + + + | Result panel 1149 | + + + + + +--------+------+ + | | 2021-08-01 | [facility] | 28.7 | pg | (missing) | | (unavailable | 05:41:19 | [facility] | | | | | ) | | Surgical | | | | | | | Specialties | | | | + + + +--------+------+ + + + | Result panel 1150 | + + + + + +--------+ + + | | 2021-08-01 | [facility] | 31.6 | (missing) | (missing) | | (unavailable | 05:41:19 | [facility] | | | | | ) | | Surgical | | | | | | | Specialties | | | | + + + +--------+ + + + + | Result panel 1151 | + + + + + +--------+-----+ + | | 2021-08-01 | [facility] | 14.1 | % | (missing) | | (unavailable | 05:41:19 | [facility] | | | | | ) | | Surgical | | | | | | | Specialties | | | | + + + +--------+-----+ + + + | Result panel 1152 | + + + + + +-------+ + + | | 2021-08-01 | [facility] | 295 | (missing) | (missing) | | (unavailable | 05:41:19 | [facility] | | | | | ) | | Surgical | | | | | | | Specialties | | | | + + + +-------+ + + + + | Result panel 1153 | + + + + + +-------+------+ + | | 2021-08-01 | [facility] | 9.4 | fL | (missing) | | (unavailable | 05:41:19 | [facility] | | | | | ) | | Surgical | | | | | | | Specialties | | | | + + + +-------+------+ + + + | Result panel 1154 | + + + + + +--------+-----+ + | | 2021-08-01 | [facility] | 69.2 | % | (missing) | | (unavailable | 05:41:19 | [facility] | | | | | ) | | Surgical | | | | | | | Specialties | | | | + + + +--------+-----+ + + + | Result panel 1155 | + + + + + +--------+-----+ + | | 2021-08-01 | [facility] | 13.2 | % | (missing) | | (unavailable | 05:41:19 | [facility] | | | | | ) | | Surgical | | | | | | | Specialties | | | | + + + +--------+-----+ + + + | Result panel 1156 | + + + + + +--------+-----+ + | | 2021-08-01 | [facility] | 11.2 | % | (missing) | | (unavailable | 05:41:19 | [facility] | | | | | ) | | Surgical | | | | | | | Specialties | | | | + + + +--------+-----+ + + + | Result panel 1157 | + + + + + +-------+-----+ + | | 2021-08-01 | [facility] | 2.4 | % | (missing) | | (unavailable | 05:41:19 | [facility] | | | | | ) | | Surgical | | | | | | | Specialties | | | | + + + +-------+-----+ + + + | Result panel 1158 | + + + + + +-------+-----+ + | | 2021-08-01 | [facility] | 0.7 | % | (missing) | | (unavailable | 05:41:19 | [facility] | | | | | ) | | Surgical | | | | | | | Specialties | | | | + + + +-------+-----+ + + + | Result panel 1159 | + + + + + +-------+-----+ + | | 2021-08-01 | [facility] | 3.3 | % | (missing) | | (unavailable | 05:41:19 | [facility] | | | | | ) | | Surgical | | | | | | | Specialties | | | | + + + +-------+-----+ + + + | Result panel 1160 | + + + + + +-------+ + + | | 2021-08-01 | [facility] | 0.0 | (missing) | (missing) | | (unavailable | 05:41:19 | [facility] | | | | | ) | | Surgical | | | | | | | Specialties | | | | + + + +-------+ + + + + | Result panel 1161 | + + + + + +--------+ + + | | 2021-08-01 | [facility] | 8.03 | (missing) | (missing) | | (unavailable | 05:41:19 | [facility] | | | | | ) | | Surgical | | | | | | | Specialties | | | | + + + +--------+ + + + + | Result panel 1162 | + + + + + +--------+ + + | | 2021-08-01 | [facility] | 1.53 | (missing) | (missing) | | (unavailable | 05:41:19 | [facility] | | | | ) | | [facility] | | | | | | | Specialties | | | | + + + +--------+ + + + + | Result panel 1163 | + + + + + +--------+ + + | | 2021-08-01 | [facility] | 1.30 | (missing) | (missing) | | (unavailable | 05:41:19 | [facility] | | | | | ) | | [facility] | | | | | | | Specialties | | | | + + + +--------+ + + + + | Result panel 1164 | + + + + + +--------+ + + | | 2021-08-01 | [facility] | 0.28 | (missing) | (missing) | | (unavailable | 05:41:19 | [facility] | | | | ) | | [facility] | | | | | | | Specialties | | | | + + + +--------+ + + + + | Result panel 1165 | + + + + + +--------+ + + | | 2021-08-01 | [facility] | 0.08 | (missing) | (missing) | | (unavailable | 05:41:19 | [facility] | | | | ) | | [facility] | | | | | | | Specialties | | | | + + + +--------+ + + + + | Result panel 1166 | + + + + + +--------+ + + | | 2021-08-01 | [facility] | 0.38 | (missing) | (missing) | | (unavailable | 05:41:19 | [facility] | | | | | ) | | [facility] | | | | | | | Specialties | | | | + + + +--------+ + + + + | Result panel 1167 | + + + + + +--------+ + + | | 2021-08-01 | [facility] | 0.00 | (missing) | (missing) | | (unavailable | 05:41:19 | [facility] | | | | | ) | | Surgical | | | | | | | [facility] | | | | + + + +--------+ + + + + | Result panel 1168 | + + + + + + + + + | | 2021-08-01 | [facility] | Abnormal | (missing) | (missing) | | (unavailable | 05:41:19 | [facility] | | | | | | [facility] | | | | + + + + + + + + + | Result panel 1169 | + + + + + +-------+ + + | | 2021-08-01 | [facility] | 140 | mmol/L | (missing) | | (unavailable | 05:57:07 | [facility] | | | | | | [facility] | | | | + + + +-------+ + + + + | Result panel 1170 | + + + + + +-------+ + + | | 2021-08-01 | [facility] | 4.1 | mmol/L | (missing) | | (unavailable | 05:57:07 | [facility] | | | | | | [facility] | | | | + + + +-------+ + + + + | Result panel 1171 | + + + + + +-------+ + + | | 2021-08-01 | [facility] | 103 | mmol/L | (missing) | | (unavailable | 05:57:07 | [facility] | | | | | | [facility] | | | | + + + +-------+ + + + + | Result panel 1172 | + + + + + +------+ + + | | 2021-08-01 | [facility] | 25 | mmol/L | (missing) | | (unavailable | 05:57:07 | [facility] | | | | | | | [facility] | | | | + + + +------+ + + + + | Result panel 1173 | + + + + + +------+ + + | Anion Gap | 2021-08-01 | [facility] | 12 | mmol/L | (missing) | | | 05:57:07 | [facility] | | [facility] | | | | | | | [facility] | | | | + + + +------+ + + + + | Result panel 1174 | + + + + + +------+---------+ + | | 2021-08-01 | [facility] | 17 | mg/dL | (missing) | | (unavailable | 05:57:07 | [facility] | | | | | | [facility] | | | | + + + +------+---------+ + + + | Result panel 1175 | + + + + + +--------+---------+ + | | 2021-08-01 | [facility] | 0.50 | mg/dL | (missing) | | (unavailable | 05:57:07 | [facility] | | | | | | | [facility] | | | | + + + +--------+---------+ + + + | Result panel 1176 | + + + + + +-------+---------+ + | | 2021-08-01 | [facility] | 113 | mg/dL | (missing) | | (unavailable | 05:57:07 | [facility] | | | | | | | [facility] | | | | + + + +-------+---------+ + + + | Result panel 1177 | + + + + + +-------+---------+ + | | 2021-08-01 | [facility] | 8.1 | mg/dL | (missing) | | (unavailable | 05:57:07 | [facility] | | | | [facility] | | [facility] | | | | | | | [facility] | | | | + + + +-------+---------+ + + + | Result panel 1178 | + + + + + +-------+---------+ + | | 2021-08-01 | [facility] | 3.3 | mg/dL | (missing) | | (unavailable | 05:57:07 | [facility] | | | | ) | | [facility] | | | | | | | Specialties | | | | + + + +-------+---------+ + + + | Result panel 1179 | + + + + + +-------+ + + | | 2021-08-01 | [facility] | 2.4 | (missing) | (missing) | | (unavailable | 05:57:07 | [facility] | | | | ) | | [facility] | | | | | | | Specialties | | | | + + + +-------+ + + + + | Result panel 1180 | + + + + + + + + + | | 2021-08-01 | [facility] | Abnormal | (missing) | (missing) | | (unavailable | 05:57:07 | [facility] | | | | ) | | [facility] | | | | | | | Specialties | | | | + + + + + + + + + | Result panel 1181 | + + + + + +-------+---------+ + | | 2021-08-01 | [facility] | 0.4 | mg/dL | (missing) | | (unavailable | 13:40:56 | [facility] | | | | ) | | [facility] | | | | | | | Specialties | | | | + + + +-------+---------+ + + + | Result panel 1182 | + + + + + + + + + | BF Type for | 2021-08-01 | [facility] | Peritoneal | (missing) | (missing) | | Creatinine | 13:40:56 | [facility] | | | | | | [facility] | | | | | | | Specialties | | | | + + + + + + + + + | Result panel 1183 | + + + + + + + + + | | 2021-08-01 | [facility] | (missing) | (missing) | (missing) | | (unavailable | 13:44:59 | [facility] | | | | ) | | [facility] | | | | | | | Specialties | | | | + + + + + + + + + | Result panel 1184 | + + + + + + + + + | Vascular | 2021-08-01 | [facility] | (missing) | (missing) | (missing) | | | 13:44:59 | [facility] | | | | | | [facility] | | | | | | | Specialties | | | | + + + + + + + + + | Result panel 1185 | + + + + + +--------+ + + | | 2021-08-01 | [facility] | 9.87 | (missing) | (missing) | | (unavailable | 14:23:07 | [facility] | | | | ) | | [facility] | | | | | | | Specialties | | | | + + + +--------+ + + + + | Result panel 1186 | + + + + + +--------+ + + | | 2021-08-01 | [facility] | 2.73 | (missing) | (missing) | | (unavailable | 14:23:07 | [facility] | [facility] | [facility] | | [facility] | | | | | | | Specialties | | | | + + + +--------+ + + + + | Result panel 1187 | + + + + + +-------+ + + | | 2021-08-01 | [facility] | 7.8 | (missing) | (missing) | | (unavailable | 14:23:07 | [facility] | | | | [facility] | | [facility] | | | | | | | Specialties | | | | + + + +-------+ + + + + | Result panel 1188 | + + + + + +--------+-----+ + | | 2021-08-01 | [facility] | 25.4 | % | (missing) | | (unavailable | 14:23:07 | [facility] | [facility] | | [facility] | | | | | | | Specialties | | | | + + + +--------+-----+ + + + | Result panel 1189 | + + + + + +--------+------+ + | | 2021-08-01 | [facility] | 93.0 | fL | (missing) | | (unavailable | 14:23:07 | [facility] | | | | ) | | [facility] | | | | | | | Specialties | | | | + + + +--------+------+ + + + | Result panel 1190 | + + + + + +--------+------+ + | | 2021-08-01 | [facility] | 28.6 | pg | (missing) | | (unavailable | 14:23:07 | [facility] | | | | ) | | [facility] | | | | | | | Specialties | | | | + + + +--------+------+ + + + | Result panel 1191 | + + + + + +--------+ + + | | 2021-08-01 | [facility] | 30.7 | (missing) | (missing) | | (unavailable | 14:23:07 | [facility] | | | | ) | | [facility] | | | | | | | Specialties | | | | + + + +--------+ + + + + | Result panel 1192 | + + + + + +--------+-----+ + | | 2021-08-01 | [facility] | 14.2 | % | (missing) | | (unavailable | 14:23:07 | [facility] | | | | ) | | [facility] | | | | | | | Specialties | | | | + + + +--------+-----+ + + + | Result panel 1193 | + + + + + +-------+ + + | | 2021-08-01 | [facility] | 333 | (missing) | (missing) | | (unavailable | 14:23:07 | [facility] | | | | ) | | Surgical | | | | | | | Specialties | | | | + + + +-------+ + + + + | Result panel 1194 | + + + + + +-------+------+ + | | 2021-08-01 | [facility] | 8.5 | fL | (missing) | | (unavailable | 14:23:07 | [facility] | | | | ) | | [facility] | | | | | | | Specialties | | | | + + + +-------+------+ + + + | Result panel 1195 | + + + + + +--------+-----+ + | | 2021-08-01 | [facility] | 72.3 | % | (missing) | | (unavailable | 14:23:07 | [facility] | | | | ) | | [facility] | | | | | | | Specialties | | | | + + + +--------+-----+ + + + | Result panel 1196 | + + + + + +--------+-----+ + | | 2021-08-01 | [facility] | 11.8 | % | (missing) | | (unavailable | 14:23:07 | [facility] | | | | ) | | [facility] | | | | | | | Specialties | | | | + + + +--------+-----+ + + + | Result panel 1197 | + + + + + +-------+-----+ + | | 2021-08-01 | [facility] | 9.2 | % | (missing) | | (unavailable | 14:23:07 | [facility] | | | | ) | | Surgical | | | | | | | Specialties | | | | + + + +-------+-----+ + + + | Result panel 1198 | + + + + + +-------+-----+ + | | 2021-08-01 | [facility] | 3.4 | % | (missing) | | (unavailable | 14:23:07 | [facility] | | | | ) | | [facility] | | | | | | | Specialties | | | | + + + +-------+-----+ + + + | Result panel 1199 | + + + + + +-------+-----+ + | | 2021-08-01 | [facility] | 0.6 | % | (missing) | | (unavailable | 14:23:07 | [facility] | | | | ) | | [facility] | | | | | | | Specialties | | | | + + + +-------+-----+ + + + | Result panel 1200 | + + + + + +-------+-----+ + | | 2021-08-01 | [facility] | 2.7 | % | (missing) | | (unavailable | 14:23:07 | [facility] | | | | ) | | [facility] | | | | | | | Specialties | | | | + + + +-------+-----+ + + + | Result panel 1201 | + + + + + +-------+ + + | | 2021-08-01 | [facility] | 0.0 | (missing) | (missing) | | (unavailable | 14:23:07 | [facility] | | | | ) | | [facility] | | | | | | | Specialties | | | | + + + +-------+ + + + + | Result panel 1202 | + + + + + +--------+ + + | | 2021-08-01 | [facility] | 7.13 | (missing) | (missing) | | (unavailable | 14:23:07 | [facility] | | | | ) | | [facility] | | | | | | | Specialties | | | | + + + +--------+ + + + + | Result panel 1203 | + + + + + +--------+ + + | | 2021-08-01 | [facility] | 1.16 | (missing) | (missing) | | (unavailable | 14:23:07 | [facility] | | | | ) | | Surgical | | | | | | | Specialties | | | | + + + +--------+ + + + + | Result panel 1204 | + + + + + +--------+ + + | | 2021-08-01 | [facility] | 0.91 | (missing) | (missing) | | (unavailable | 14:23:07 | [facility] | | | | ) | | Surgical | | | | | | | Specialties | | | | + + + +--------+ + + + + | Result panel 1205 | + + + + + +--------+ + + | | 2021-08-01 | [facility] | 0.34 | (missing) | (missing) | | (unavailable | 14:23:07 | [facility] | | | | ) | | [facility] | | | | | | | Specialties | | | | + + + +--------+ + + + + | Result panel 1206 | + + + + + +--------+ + + | | 2021-08-01 | [facility] | 0.06 | (missing) | (missing) | | (unavailable | 14:23:07 | [facility] | | | | ) | | Surgical | | | | | | | Specialties | | | | + + + +--------+ + + + + | Result panel 1207 | + + + + + +--------+ + + | | 2021-08-01 | [facility] | 0.27 | (missing) | (missing) | | (unavailable | 14:23:07 | [facility] | | | | ) | | [facility] | | | | | | | Specialties | | | | + + + +--------+ + + + + | Result panel 1208 | + + + + + +--------+ + + | | 2021-08-01 | [facility] | 0.00 | (missing) | (missing) | | (unavailable | 14:23:07 | [facility] | | | | | ) | | Surgical | | | | | | | Specialties | | | | + + + +--------+ + + + + | Result panel 1209 | + + + + + + + + + | | 2021-08-01 | [facility] | Abnormal | (missing) | (missing) | | (unavailable | 14:23:07 | [facility] | | | | ) | | Surgical | | | | | | | Specialties | | | | + + + + + + + + + | Result panel 1210 | + + + + + +-------+ + + | | 2021-08-01 | [facility] | 1.4 | mmol/L | (missing) | | (unavailable | 14:39:27 | [facility] | | | | ) | | Surgical | | | | | | | Specialties | | | | + + + +-------+ + + + + | Result panel 1211 | + + + + + +-------+---------+ + | | 2021-08-01 | [facility] | 1.1 | mg/dL | (missing) | | (unavailable | 15:16:43 | [facility] | | | | ) | | [facility] | | | | | | | Specialties | | | | + + + +-------+---------+ + + + | Result panel 1212 | + + + + + + + + + | | 2021-08-01 | [facility] | Abnormal | (missing) | (missing) | | (unavailable | 15:16:43 | [facility] | | | | ) | | Surgical | | | | | | | Specialties | | | | + + + + + + + + + | Result panel 1213 | + + + + + +-------+ + + | | 2021-08-01 | [facility] | 137 | mmol/L | (missing) | | (unavailable | 15:16:44 | [facility] | | | | | ) | | Surgical | | | | | | | Specialties | | | | + + + +-------+ + + + + | Result panel 121 | + + + + + +-------+ + + | | 2021-08-01 | [facility] | 4.8 | mmol/L | (missing) | | (unavailable | 15:16:44 | [facility] | | | | | ) | | Surgical | | | | | | | Specialties | | | | + + + +-------+ + + + + | Result panel 1215 | + + + + + +-------+ + + | | 2021-08-01 | [facility] | 103 | mmol/L | (missing) | | (unavailable | 15:16:44 | [facility] | | | | | ) | | Surgical | | | | | | | Specialties | | | | + + + +-------+ + + + + | Result panel 1216 | + + + + + +------+ + + | | 2021-08-01 | [facility] | 26 | mmol/L | (missing) | | (unavailable | 15:16:44 | [facility] | | | | | ) | | Surgical | | | | | | | Specialties | | | | + + + +------+ + + + + | Result panel 1217 | + + + + + +-----+ + + | Anion Gap | 2021-08-01 | [facility] | 8 | mmol/L | (missing) | | | 15:16:44 | [facility] | | | | | | | Surgical | | | | | | | Specialties | | | | + + + +-----+ + + + + | Result panel 1218 | + + + + + +------+---------+ + | | 2021-08-01 | [facility] | 16 | mg/dL | (missing) | | (unavailable | 15:16:44 | [facility] | | | | | ) | | Surgical | | | | | | | Specialties | | | | + + + +------+---------+ + + + | Result panel 1219 | + + + + + +--------+---------+ + | | 2021-08-01 | [facility] | 0.42 | mg/dL | (missing) | | (unavailable | 15:16:44 | [facility] | | | | | ) | | Surgical | | | | | | | Specialties | | | | + + + +--------+---------+ + + + | Result panel 1220 | + + + + + +-------+---------+ + | | 2021-08-01 | [facility] | 125 | mg/dL | (missing) | | (unavailable | 15:16:44 | [facility] | | | | ) | | Surgical | | | | | | | Specialties | | | | + + + +-------+---------+ + + + | Result panel 1221 | + + + + + +-------+---------+ + | | 2021-08-01 | [facility] | 7.7 | mg/dL | (missing) | | (unavailable | 15:16:44 | [facility] | | | | | ) | | Surgical | | | | | | | Specialties | | | | + + + +-------+---------+ + + + | Result panel 1222 | + + + + + +-------+---------+ + | | 2021-08-01 | [facility] | 3.8 | mg/dL | (missing) | | (unavailable | 15:16:44 | [facility] | | | | | ) | | Surgical | | | | | | | Specialties | | | | + + + +-------+---------+ + + + | Result panel 1223 | + + + + + +-------+ + + | | 2021-08-01 | [facility] | 2.3 | (missing) | (missing) | | (unavailable | 15:16:44 | [facility] | | | | | ) | | Surgical | | | | | | | Specialties | | | | + + + +-------+ + + + + | Result panel 1224 | + + + + + + + + + | | 2021-08-01 | [facility] | Abnormal | (missing) | (missing) | | (unavailable | 15:16:44 | [facility] | | | | | ) | | Surgical | | | | | | | Specialties | | | | + + + + + + + + + | Result panel 1225 | + + + + + + + + + | | 2021-08-01 | [facility] | (missing) | (missing) | (missing) | | (unavailable | 16:41:21 | [facility] | | | | | ) | | Surgical | | | | | | | Specialties | | | | + + + + + + + + + | Result panel 1226 | + + + + + + + + + | | 2021-08-01 | [facility] | (missing) | (missing) | (missing) | | (unavailable | 16:41:21 | [facility] | | | | | ) | | Surgical | | | | | | | Specialties | | | | + + + + + + + + + | Result panel 1227 | + + +---------+ + + + + + | Final | 2021-08-02 | [facility] | No growth | (missing) | (missing) | | Report | 18:05:40 | [facility] | after 5 days | | | | | | Surgical | | | | | | | Specialties | | | | +---------+ + + + + + + + | Result panel 1228 | + + +---------+ + + + + + | Final | 2021-08-02 | [facility] | No growth | (missing) | (missing) | | Report | 21:41:55 | [facility] | of aerobic | | | | | | Surgical | or anaerobic | | | | | | Specialties | bacteria | | | | | | | after 5 | | | | | | | day(s) of | | | | | | | incubation | | | +---------+ + + + + + + + | Result panel 1229 | + + + + + + + + + | Gram Stain | 2021-08-02 | [facility] | (missing) | (missing) | (missing) | | | 21:41:55 | [facility] | | | | | | | Surgical | | | | | | | Specialties | | | | + + + + + + + + + | Result panel 1230 | + + + + + + + + + | [facility] | 2021-08-03 | [facility] | ED | (missing) | (missing) | | | 21:51:50 | [facility] | Information | | | | | | Emergency | Exchange | | | | | | Department | | | | + + + + + + + + + | Result panel 1231 | + + + + + +------+ + + | [facility] | 2021-08-03 | [facility] | NO | (missing) | (missing) | | [facility] | 21:51:50 | [facility] | | | | | | | Emergency | | | | | | | Department | | | | + + + +------+ + + + + | Result panel 1232 | + + + + + + + + + | | 2021-08-03 | [facility] | (missing) | (missing) | (missing) | | (unavailable | 21:51:50 | [facility] | | | | | ) | | Emergency | | | | | | | Department | | | | + + + + + + + + + | Result panel 1233 | + + + + + + + + + | | 2021-08-03 | [facility] | (missing) | (missing) | (missing) | | (unavailable | 21:51:50 | [facility] | | | | | ) | | Emergency | | | | | | | Department | | | | + + + + + + + + + | Result panel 1234 | + + +---------+ + + + + + | Final | 2021-08-03 | [facility] | No growth | (missing) | (missing) | | Report | 21:52:45 | [facility] | after 5 days | | | | | | Surgical | | | | | | | Specialties | | | | +---------+ + + + + + + + | Result panel 1235 | + + + + + + + + + | [facility] | 2021-08-06 | [facility] | ED | (missing) | (missing) | | | 01:20:25 | [facility] | Information | | | | | | Emergency | Exchange | | | | | | Department | | | | + + + + + + + + + | Result panel 1236 | + + + + + +------+ + + | [facility] | 2021-08-06 | [facility] | NO | (missing) | (missing) | | [facility] | 01:20:25 | [facility] | | | | | | | Emergency | | | | | | | Department | | | | + + + +------+ + + + + | Result panel 1237 | + + + + + + + + + | | 2021-08-06 | [facility] | (missing) | (missing) | (missing) | | (unavailable | 01:20:25 | [facility] | | | | | ) | | Emergency | | | | | | | Department | | | | + + + + + + + + + | Result panel 1238 | + + + + + + + + + | | 2021-08-06 | [facility] | (missing) | (missing) | (missing) | | (unavailable | 01:20:25 | [facility] | | | | | ) | | Emergency | | | | | | | Department | | | | + + + + + + + + + | Result panel 1239 | + + + + + +---------+ + + | | 2021-08-06 | [facility] | 10.55 | (missing) | (missing) | | (unavailable | 01:37:32 | [facility] | | | | | ) | | Emergency | | | | | | | Department | | | | + + + +---------+ + + + + | Result panel 1240 | + + + + + +--------+ + + | | 2021-08-06 | [facility] | 3.32 | (missing) | (missing) | | (unavailable | 01:37:32 | [facility] | | | | | ) | | Emergency | | | | | | | Department | | | | + + + +--------+ + + + + | Result panel 1241 | + + + + + +-------+ + + | | 2021-08-06 | [facility] | 9.1 | (missing) | (missing) | | (unavailable | 01:37:32 | [facility] | | | | | ) | | Emergency | | | | | | | Department | | | | + + + +-------+ + + + + | Result panel 1242 | + + + + + +--------+-----+ + | | 2021-08-06 | [facility] | 29.7 | % | (missing) | | (unavailable | 01:37:32 | [facility] | | | | | ) | | Emergency | | | | | | | Department | | | | + + + +--------+-----+ + + + | Result panel 1243 | + + + + + +--------+------+ + | | 2021-08-06 | [facility] | 89.5 | fL | (missing) | | (unavailable | 01:37:32 | [facility] | | | | | ) | | Emergency | | | | | | | Department | | | | + + + +--------+------+ + + + | Result panel 1244 | + + + + + +--------+------+ + | | 2021-08-06 | [facility] | 27.4 | pg | (missing) | | (unavailable | 01:37:32 | [facility] | | | | | ) | | Emergency | | | | | | | Department | | | | + + + +--------+------+ + + + | Result panel 1245 | + + + + + +--------+ + + | | 2021-08-06 | [facility] | 30.6 | (missing) | (missing) | | (unavailable | 01:37:32 | [facility] | | | | | ) | | Emergency | | | | | | | Department | | | | + + + +--------+ + + + + | Result panel 1246 | + + + + + +--------+-----+ + | | 2021-08-06 | [facility] | 13.9 | % | (missing) | | (unavailable | 01:37:32 | [facility] | | | | | ) | | Emergency | | | | | | | Department | | | | + + + +--------+-----+ + + + | Result panel 1247 | + + + + + +-------+ + + | | 2021-08-06 | [facility] | 472 | (missing) | (missing) | | (unavailable | 01:37:32 | [facility] | | | | | ) | | Emergency | | | | | | | Department | | | | + + + +-------+ + + + + | Result panel 1248 | + + + + + +-------+------+ + | | 2021-08-06 | [facility] | 8.6 | fL | (missing) | | (unavailable | 01:37:32 | [facility] | | | | | ) | | Emergency | | | | | | | Department | | | | + + + +-------+------+ + + + | Result panel 1249 | + + + + + +--------+-----+ + | | 2021-08-06 | [facility] | 69.5 | % | (missing) | | (unavailable | 01:37:32 | [facility] | | | | | ) | | Emergency | | | | | | | Department | | | | + + + +--------+-----+ + + + | Result panel 1250 | + + + + + +--------+-----+ + | | 2021-08-06 | [facility] | 16.3 | % | (missing) | | (unavailable | 01:37:32 | [facility] | | | | | ) | | Emergency | | | | | | | Department | | | | + + + +--------+-----+ + + + | Result panel 1251 | + + + + + +-------+-----+ + | | 2021-08-06 | [facility] | 8.2 | % | (missing) | | (unavailable | 01:37:32 | [facility] | | | | | ) | | Emergency | | | | | | | Department | | | | + + + +-------+-----+ + + + | Result panel 125 | + + + + + +-------+-----+ + | | 2021-08-06 | [facility] | 3.6 | % | (missing) | | (unavailable | 01:37:32 | [facility] | | | | | ) | | Emergency | | | | | | | Department | | | | + + + +-------+-----+ + + + | Result panel 1253 | + + + + + +-------+-----+ + | | 2021-08-06 | [facility] | 1.3 | % | (missing) | | (unavailable | 01:37:32 | [facility] | | | | | ) | | Emergency | | | | | | | Department | | | | + + + +-------+-----+ + + + | Result panel 1254 | + + + + + +-------+-----+ + | | 2021-08-06 | [facility] | 1.1 | % | (missing) | | (unavailable | 01:37:32 | [facility] | | | | | ) | | Emergency | | | | | | | Department | | | | + + + +-------+-----+ + + + | Result panel 1255 | + + + + + +-------+ + + | | 2021-08-06 | [facility] | 0.0 | (missing) | (missing) | | (unavailable | 01:37:32 | [facility] | | | | | ) | | Emergency | | | | | | | Department | | | | + + + +-------+ + + + + | Result panel 1256 | + + + + + +--------+ + + | | 2021-08-06 | [facility] | 7.32 | (missing) | (missing) | | (unavailable | 01:37:32 | [facility] | | | | | ) | | Emergency | | | | | | | Department | | | | + + + +--------+ + + + + | Result panel 1257 | + + + + + +--------+ + + | | 2021-08-06 | [facility] | 1.72 | (missing) | (missing) | | (unavailable | 01:37:32 | [facility] | | | | | ) | | Emergency | | | | | | | Department | | | | + + + +--------+ + + + + | Result panel 1258 | + + + + + +--------+ + + | | 2021-08-06 | [facility] | 0.87 | (missing) | (missing) | | (unavailable | 01:37:32 | [facility] | | | | | ) | | Emergency | | | | | | | Department | | | | + + + +--------+ + + + + | Result panel 1259 | + + + + + +--------+ + + | | 2021-08-06 | [facility] | 0.38 | (missing) | (missing) | | (unavailable | 01:37:32 | [facility] | | | | | ) | | Emergency | | | | | | | Department | | | | + + + +--------+ + + + + | Result panel 1260 | + + + + + +--------+ + + | | 2021-08-06 | [facility] | 0.14 | (missing) | (missing) | | (unavailable | 01:37:32 | [facility] | | | | | ) | | Emergency | | | | | | | Department | | | | + + + +--------+ + + + + | Result panel 1261 | + + + + + +--------+ + + | | 2021-08-06 | [facility] | 0.12 | (missing) | (missing) | | (unavailable | 01:37:32 | [facility] | | | | | ) | | Emergency | | | | | | | Department | | | | + + + +--------+ + + + + | Result panel 1262 | + + + + + +--------+ + + | | 2021-08-06 | [facility] | 0.00 | (missing) | (missing) | | (unavailable | 01:37:32 | [facility] | | | | | ) | | Emergency | | | | | | | Department | | | | + + + +--------+ + + + + | Result panel 1263 | + + + + + + + + + | | 2021-08-06 | [facility] | Abnormal | (missing) | (missing) | | (unavailable | 01:37:32 | [facility] | | | | | ) | | Emergency | | | | | | | Department | | | | + + + + + + + + + | Result panel 1264 | + + + + + +-------+ + + | | 2021-08-06 | [facility] | 138 | mmol/L | (missing) | | (unavailable | 01:55:39 | [facility] | | | | | ) | | Emergency | | | | | | | Department | | | | + + + +-------+ + + + + | Result panel 1265 | + + + + + +-------+ + + | | 2021-08-06 | [facility] | 3.8 | mmol/L | (missing) | | (unavailable | 01:55:39 | [facility] | | | | | ) | | Emergency | | | | | | | Department | | | | + + + +-------+ + + + + | Result panel 1266 | + + + + + +-------+ + + | | 2021-08-06 | [facility] | 103 | mmol/L | (missing) | | (unavailable | 01:55:39 | [facility] | | | | | ) | | Emergency | | | | | | | Department | | | | + + + +-------+ + + + + | Result panel 1267 | + + + + + +------+ + + | | 2021-08-06 | [facility] | 22 | mmol/L | (missing) | | (unavailable | 01:55:39 | [facility] | | | | | ) | | Emergency | | | | | | | Department | | | | + + + +------+ + + + + | Result panel 1268 | + + + + + +------+ + + | Anion Gap | 2021-08-06 | [facility] | 13 | mmol/L | (missing) | | | 01:55:39 | [facility] | | | | | | | Emergency | | | | | | | Department | | | | + + + +------+ + + + + | Result panel 1269 | + + + + + +------+---------+ + | | 2021-08-06 | [facility] | 14 | mg/dL | (missing) | | (unavailable | 01:55:39 | [facility] | | | | | ) | | Emergency | | | | | | | Department | | | | + + + +------+---------+ + + + | Result panel 1270 | + + + + + +--------+---------+ + | | 2021-08-06 | [facility] | 0.56 | mg/dL | (missing) | | (unavailable | 01:55:39 | [facility] | | | | | ) | | Emergency | | | | | | | Department | | | | + + + +--------+---------+ + + + | Result panel 1271 | + + + + + +-------+---------+ + | | 2021-08-06 | [facility] | 231 | mg/dL | (missing) | | (unavailable | 01:55:39 | [facility] | | | | | ) | | Emergency | | | | | | | Department | | | | + + + +-------+---------+ + + + | Result panel 1272 | + + + + + +-------+---------+ + | | 2021-08-06 | [facility] | 8.8 | mg/dL | (missing) | | (unavailable | 01:55:39 | [facility] | | | | | ) | | Emergency | | | | | | | Department | | | | + + + +-------+---------+ + + + | Result panel 1273 | + + + + + +-------+ + + | | 2021-08-06 | [facility] | 6.7 | (missing) | (missing) | | (unavailable | 01:55:39 | [facility] | | | | | ) | | Emergency | | | | | | | Department | | | | + + + +-------+ + + + + | Result panel 1274 | + + + + + +-------+ + + | | 2021-08-06 | [facility] | 3.2 | (missing) | (missing) | | (unavailable | 01:55:39 | [facility] | | | | | ) | | Emergency | | | | | | | Department | | | | + + + +-------+ + + + + | Result panel 1275 | + + + + + +------+-------+ + | | 2021-08-06 | [facility] | 16 | U/L | (missing) | | (unavailable | 01:55:39 | [facility] | | | | | ) | | [facility] | | | | | | | Department | | | | + + + +------+-------+ + + + | Result panel 1276 | + + + + + +------+-------+ + | | 2021-08-06 | [facility] | 10 | U/L | (missing) | | (unavailable | 01:55:39 | [facility] | | | | ) | | [facility] | | | | | | | Department | | | | + + + +------+-------+ + + + | Result panel 1277 | + + + + + +------+-------+ + | | 2021-08-06 | [facility] | 78 | U/L | (missing) | | (unavailable | 01:55:39 | [facility] | | | | ) | | [facility] | | | | | | | Department | | | | + + + +------+-------+ + + + | Result panel 1278 | + + + + + +-------+---------+ + | | 2021-08-06 | [facility] | 0.2 | mg/dL | (missing) | | (unavailable | 01:55:39 | [facility] | | | | | ) | | Emergency | | | | | | | Department | | | | + + + +-------+---------+ + + + | Result panel 1279 | + + + + + + + + + | | 2021-08-06 | [facility] | Abnormal | (missing) | (missing) | | (unavailable | 01:55:39 | [facility] | | | | | ) | | [facility] | | | | | | | Department | | | | + + + + + + + + + | Result panel 1280 | + + + + + + + + + | | 2021-08-11 | [facility] | NEGATIVE | (missing) | (missing) | | (unavailable | 10:23 | [facility] | | | | + + + + + + + + + | Result panel 1281 | + + + + + +-------+ + + | | 2021-08-11 | [facility] | 8.7 | (missing) | (missing) | | (unavailable | 10:23 | [facility] | | | | + + + +-------+ + + + + | Result panel 1282 | + + + + + +-------+ + + | | 2021-08-11 | [facility] | 8.7 | (missing) | (missing) | | (unavailable | 10:23 | [facility] | | | | + + + +-------+ + + + + | Result panel 1283 | + + + + + +-------+ + + | | 2021-08-11 | [facility] | 8.7 | (missing) | (missing) | | (unavailable | 10:23 | [facility] | | | | + + + +-------+ + + + + | Result panel 1284 | + + + + + +-------+ + + | | 2021-08-11 | [facility] | 2-3 | (missing) | (missing) | | (unavailable | 11:10 | [facility] | | | | + + + +-------+ + + + + | Result panel 1285 | + + + + + +-------+ + + | | 2021-08-11 | [facility] | 4-6 | (missing) | (missing) | | (unavailable | 11:10 | [facility] | | | | | ) | | [facility] | | | | + + + +-------+ + + + + | Result panel 1286 | + + + + + + + + + | | 2021-08-11 | [facility] | SQUAMOUS 1+ | (missing) | (missing) | | (unavailable | 11:10 | [facility] | | | | + + + + + + + + + | Result panel 1287 | + + + + + + + + + | | 2021-08-11 | [facility] | NONE SEEN | (missing) | (missing) | | (unavailable | 11:10 | [facility] | | | | + + + + + + + + + | Result panel 1288 | + + + + + + + + + | | 2021-08-11 | [facility] | NONE SEEN | (missing) | (missing) | | (unavailable | 11:10 | [facility] | | | | + + + + + + + + + | Result panel 1289 | + + + + + + + + + | | 2021-08-11 | [facility] | NONE SEEN | (missing) | (missing) | | (unavailable | 11:10 | [facility] | | | | + + + + + + + + + | Result panel 1290 | + + + + + +------+ + + | | 2021-08-11 | [facility] | No | (missing) | (missing) | | (unavailable | 11:10 | [facility] | | | | + + + +------+ + + + + | Result panel 1291 | + + + + + +-------+ + + | | 2021-08-11 | [facility] | 2-3 | (missing) | (missing) | | (unavailable | 11:10 | [facility] | | | | + + + +-------+ + + + + | Result panel 1292 | + + + + + +-------+ + + | | 2021-08-11 | [facility] | 4-6 | (missing) | (missing) | | (unavailable | 11:10 | [facility] | | | | + + + +-------+ + + + + | Result panel 1293 | + + + + + + + + + | | 2021-08-11 | [facility] | SQUAMOUS 1+ | (missing) | (missing) | | (unavailable | 11:10 | [facility] | | | | + + + + + + + + + | Result panel 1294 | + + + + + + + + + | | 2021-08-11 | [facility] | NONE SEEN | (missing) | (missing) | | (unavailable | 11:10 | [facility] | | | | + + + + + + + + + | Result panel 1295 | + + + + + + + + + | | 2021-08-11 | [facility] | NONE SEEN | (missing) | (missing) | | (unavailable | 11:10 | [facility] | | | | + + + + + + + + + | Result panel 1296 | + + + + + + + + + | | 2021-08-11 | [facility] | NONE SEEN | (missing) | (missing) | | (unavailable | 11:10 | [facility] | | | | + + + + + + + + + | Result panel 1297 | + + + + + +------+ + + | | 2021-08-11 | [facility] | No | (missing) | (missing) | | (unavailable | 11:10 | [facility] | | | | + + + +------+ + + + + | Result panel 1298 | + + + + + +-------+ + + | | 2021-08-11 | [facility] | 2-3 | (missing) | (missing) | | (unavailable | 11:10 | [facility] | | | | + + + +-------+ + + + + | Result panel 1299 | + + + + + +-------+ + + | | 2021-08-11 | [facility] | 4-6 | (missing) | (missing) | | (unavailable | 11:10 | [facility] | | | | + + + +-------+ + + + + | Result panel 1300 | + + + + + + + + + | | 2021-08-11 | [facility] | SQUAMOUS 1+ | (missing) | (missing) | | (unavailable | 11:10 | [facility] | | | | + + + + + + + + + | Result panel 1301 | + + + + + + + + + | | 2021-08-11 | [facility] | NONE SEEN | (missing) | (missing) | | (unavailable | 11:10 | [facility] | | | | + + + + + + + + + | Result panel 130 | + + + + + + + + + | | 2021-08-11 | [facility] | NONE SEEN | (missing) | (missing) | | (unavailable | 11:10 | [facility] | | | | + + + + + + + + + | Result panel 1303 | + + + + + + + + + | | 2021-08-11 | [facility] | NONE SEEN | (missing) | (missing) | | (unavailable | 11:10 | [facility] | | | | + + + + + + + + + | Result panel 1304 | + + + + + +------+ + + | | 2021-08-11 | [facility] | No | (missing) | (missing) | | (unavailable | 11:10 | [facility] | | | | + + + +------+ + + + + | Result panel 1305 | + + + + + + + + + | | 2021-11-03 | [facility] | YELLOW | (missing) | (missing) | | (unavailable | 20:07 | [facility] | | | | + + + + + + + + + | Result panel 1306 | + + + + + +---------+ + + | | 2021-11-03 | [facility] | CLEAR | (missing) | (missing) | | (unavailable | 20:07 | [facility] | | | | + + + +---------+ + + + + | Result panel 1307 | + + + + + + + + + | | 2021-11-03 | [facility] | >=1000 | (missing) | (missing) | | (unavailable | 20:07 | [facility] | | | | + + + + + + + + + | Result panel 1308 | + + + + + + + + + | | 2021-11-03 | [facility] | NEGATIVE | (missing) | (missing) | | (unavailable | 20:07 | [facility] | | | | + + + + + + + + + | Result panel 1309 | + + + + + + + + + | | 2021-11-03 | [facility] | NEGATIVE | (missing) | (missing) | | (unavailable | 20:07 | [facility] | | | | + + + + + + + + + | Result panel 1310 | + + + + + +---------+ + + | | 2021-11-03 | [facility] | 1.010 | (missing) | (missing) | | (unavailable | 20:07 | [facility] | | | | + + + +---------+ + + + + | Result panel 1311 | + + + + + + + + + | | 2021-11-03 | [facility] | NEGATIVE | (missing) | (missing) | | (unavailable | 20:07 | [facility] | | | | + + + + + + + + + | Result panel 1312 | + + + + + +-------+ + + | | 2021-11-03 | [facility] | 6.0 | (missing) | (missing) | | (unavailable | 20:07 | [facility] | | | | + + + +-------+ + + + + | Result panel 1313 | + + + + + + + + + | | 2021-11-03 | [facility] | NEGATIVE | (missing) | (missing) | | (unavailable | 20:07 | [facility] | | | | + + + + + + + + + | Result panel 1314 | + + + + + + + + + | | 2021-11-03 | [facility] | NORMAL | (missing) | (missing) | | (unavailable | 20:07 | [facility] | | | | + + + + + + + + + | Result panel 1315 | + + + + + + + + + | | 2021-11-03 | [facility] | NEGATIVE | (missing) | (missing) | | (unavailable | 20:07 | [facility] | | | | + + + + + + + + + | Result panel 1316 | + + + + + + + + + | | 2021-11-03 | [facility] | NEGATIVE | (missing) | (missing) | | (unavailable | 20:07 | [facility] | | | | + + + + + + + + + | Result panel 1317 | + + + + + + + + + | | 2021-11-03 | [facility] | CLEAN CATCH | (missing) | (missing) | | (unavailable | 20:07 | [facility] | | | | + + + + + + + + + | Result panel 1318 | + + + + + + + + + | | 2021-11-03 | [facility] | POSITIVE | (missing) | (missing) | | (unavailable | 20:07 | [facility] | | | | + + + + + + + + + | Result panel 1319 | + + + + + + + + + | | 2021-11-03 | [facility] | NEGATIVE | (missing) | (missing) | | (unavailable | 20:07 | [facility] | | | | + + + + + + + + + | Result panel 1320 | + + + + + + + + + | | 2021-11-03 | [facility] | NEGATIVE | (missing) | (missing) | | (unavailable | 20:07 | [facility] | | | | + + + + + + + + + | Result panel 1321 | + + + + + + + + + | | 2021-11-03 | [facility] | NEGATIVE | (missing) | (missing) | | (unavailable | 20:07 | [facility] | | | | + + + + + + + + + | Result panel 1322 | + + + + + + + + + | | 2021-11-03 | [facility] | NEGATIVE | (missing) | (missing) | | (unavailable | 20:07 | [facility] | | | | + + + + + + + + + | Result panel 1323 | + + + + + + + + + | | 2021-11-03 | [facility] | NEGATIVE | (missing) | (missing) | | (unavailable | 20:07 | [facility] | | | | + + + + + + + + + | Result panel 1324 | + + + + + + + + + | | 2021-11-03 | [facility] | NEGATIVE | (missing) | (missing) | | (unavailable | 20:07 | [facility] | | | | + + + + + + + + + | Result panel 1325 | + + + + + + + + + | | 2021-11-03 | [facility] | NEGATIVE | (missing) | (missing) | | (unavailable | 20:07 [facility] | | | | + + + + + + + + + | Result panel 1326 | + + + + + + + + + | | 2021-11-03 | [facility] | NEGATIVE | (missing) | (missing) | | (unavailable | 20:07 | [facility] | | | | + + + + + + + + + | Result panel 1327 | + + + + + + + + + | | 2021-11-03 | [facility] | NEGATIVE | (missing) | (missing) | | (unavailable | 20:07 | [facility] | | | | + + + + + + + + + | Result panel 1328 | + + + + + + + + + | | 2021-11-03 | [facility] | NEGATIVE | (missing) | (missing) | | (unavailable | 20:07 | [facility] | | | | + + + + + + + + + | Result panel 1329 | + + + + + + + + + | | 2021-11-03 | [facility] | NEGATIVE | (missing) | (missing) | | (unavailable | 20:07 | [facility] | | | | + + + + + + + + + | Result panel 1330 | + + + + + + + + + | | 2021-11-03 | [facility] | NEGATIVE | (missing) | (missing) | | (unavailable | 20:07 | [facility] | | | | + + + + + + + + + | Result panel 1331 | + + + + + + + + + | | 2021-11-03 | [facility] | YELLOW | (missing) | (missing) | | (unavailable | 20:07 | [facility] | | | | + + + + + + + + + | Result panel 1332 | + + + + + +---------+ + + | | 2021-11-03 | [facility] | CLEAR | (missing) | (missing) | | (unavailable | 20:07 | [facility] | | | | + + + +---------+ + + + + | Result panel 1333 | + + + + + + + + + | | 2021-11-03 | [facility] | >=1000 | (missing) | (missing) | | (unavailable | 20:07 | [facility] | | | | + + + + + + + + + | Result panel 1334 | + + + + + + + + + | | 2021-11-03 | [facility] | NEGATIVE | (missing) | (missing) | | (unavailable | 20:07 | [facility] | | | | + + + + + + + + + | Result panel 1335 | + + + + + + + + + | | 2021-11-03 | [facility] | NEGATIVE | (missing) | (missing) | | (unavailable | 20:07 [facility] | | | | + + + + + + + + + | Result panel 1336 | + + + + + +---------+ + + | | 2021-11-03 | [facility] | 1.010 | (missing) | (missing) | | (unavailable | 20:07 | [facility] | | | | + + + +---------+ + + + + | Result panel 1337 | + + + + + + + + + | | 2021-11-03 | [facility] | NEGATIVE | (missing) | (missing) | | (unavailable | 20:07 | [facility] | | | | + + + + + + + + + | Result panel 1338 | + + + + + +-------+ + + | | 2021-11-03 | [facility] | 6.0 | (missing) | (missing) | | (unavailable | 20:07 | [facility] | | | | + + + +-------+ + + + + | Result panel 1339 | + + + + + + + + + | | 2021-11-03 | [facility] | NEGATIVE | (missing) | (missing) | | (unavailable | 20:07 [facility] | | | | + + + + + + + + + | Result panel 1340 | + + + + + + + + + | | 2021-11-03 | [facility] | NORMAL | (missing) | (missing) | | (unavailable | 20:07 | [facility] | | | | + + + + + + + + + | Result panel 1341 | + + + + + + + + + | | 2021-11-03 | [facility] | NEGATIVE | (missing) | (missing) | | (unavailable | 20:07 | [facility] | | | | + + + + + + + + + | Result panel 1342 | + + + + + + + + + | | 2021-11-03 | [facility] | NEGATIVE | (missing) | (missing) | | (unavailable | 20:07 | [facility] | | | | + + + + + + + + + | Result panel 1343 | + + + + + + + + + | | 2021-11-03 | [facility] | CLEAN CATCH | (missing) | (missing) | | (unavailable | 20:07 | [facility] | | | | + + + + + + + + + | Result panel 1344 | + + + + + + + + + | | 2021-11-03 | [facility] | POSITIVE | (missing) | (missing) | | (unavailable | 20:07 | [facility] | | | | + + + + + + + + + | Result panel 1345 | + + + + + + + + + | | 2021-11-03 | [facility] | NEGATIVE | (missing) | (missing) | | (unavailable | 20:07 | [facility] | | | | + + + + + + + + + | Result panel 1346 | + + + + + + + + + | | 2021-11-03 | [facility] | NEGATIVE | (missing) | (missing) | | (unavailable | 20:07 | [facility] | | | | + + + + + + + + + | Result panel 1347 | + + + + + + + + + | | 2021-11-03 | [facility] | NEGATIVE | (missing) | (missing) | | (unavailable | 20:07 | [facility] | | | | + + + + + + + + + | Result panel 1348 | + + + + + + + + + | | 2021-11-03 | [facility] | NEGATIVE | (missing) | (missing) | | (unavailable | 20:07 [facility] | | | | + + + + + + + + + | Result panel 1349 | + + + + + + + + + | | 2021-11-03 | [facility] | NEGATIVE | (missing) | (missing) | | (unavailable | 20:07 | [facility] | | | | + + + + + + + + + | Result panel 1350 | + + + + + + + + + | | 2021-11-03 | [facility] | NEGATIVE | (missing) | (missing) | | (unavailable | 20:07 | [facility] | | | | + + + + + + + + + | Result panel 1351 | + + + + + + + + + | | 2021-11-03 | [facility] | NEGATIVE | (missing) | (missing) | | (unavailable | 20:07 | [facility] | | | | + + + + + + + + + | Result panel 1352 | + + + + + + + + + | | 2021-11-03 | [facility] | NEGATIVE | (missing) | (missing) | | (unavailable | 20:07 | [facility] | | | | + + + + + + + + + | Result panel 1353 | + + + + + + + + + | | 2021-11-03 | [facility] | NEGATIVE | (missing) | (missing) | | (unavailable | 20:07 | [facility] | | | | + + + + + + + + + | Result panel 1354 | + + + + + + + + + | | 2021-11-03 | [facility] | NEGATIVE | (missing) | (missing) | | (unavailable | 20:07 | [facility] | | | | + + + + + + + + + | Result panel 1355 | + + + + + + + + + | | 2021-11-03 | [facility] | NEGATIVE | (missing) | (missing) | | (unavailable | 20:07 | [facility] | | | | + + + + + + + + + | Result panel 1356 | + + + + + + + + + | | 2021-11-03 | [facility] | NEGATIVE | (missing) | (missing) | | (unavailable | 20:07 | [facility] | | | | + + + + + + + + + | Result panel 1357 | + + + + + + + + + | | 2021-11-03 | [facility] | POSITIVE | (missing) | (missing) | | (unavailable | 20:07 | [facility] | | | | + + + + + + + + + | Result panel 1358 | + + + + + + + + + | | 2021-11-03 | [facility] | NEGATIVE | (missing) | (missing) | | (unavailable | 20:07 | [facility] | | | | + + + + + + + + + | Result panel 1359 | + + + + + + + + + | | 2021-11-03 | [facility] | NEGATIVE | (missing) | (missing) | | (unavailable | 20:07 | [facility] | | | | + + + + + + + + + | Result panel 1360 | + + + + + + + + + | | 2021-11-03 | [facility] | NEGATIVE | (missing) | (missing) | | (unavailable | 20:07 | [facility] | | | | + + + + + + + + + | Result panel 1361 | + + + + + + + + + | | 2021-11-03 | [facility] | NEGATIVE | (missing) | (missing) | | (unavailable | 20:07 | [facility] | | | | + + + + + + + + + | Result panel 1362 | + + + + + + + + + | | 2021-11-03 | [facility] | NEGATIVE | (missing) | (missing) | | (unavailable | 20:07 | [facility] | | | | + + + + + + + + + | Result panel 1363 | + + + + + + + + + | | 2021-11-03 | [facility] | NEGATIVE | (missing) | (missing) | | (unavailable | 20:07 | [facility] | | | | + + + + + + + + + | Result panel 1364 | + + + + + + + + + | | 2021-11-03 | [facility] | NEGATIVE | (missing) | (missing) | | (unavailable | 20:07 | [facility] | | | | + + + + + + + + + | Result panel 1365 | + + + + + + + + + | | 2021-11-03 | [facility] | NEGATIVE | (missing) | (missing) | | (unavailable | 20:07 | [facility] | | | | + + + + + + + + + | Result panel 1366 | + + + + + + + + + | | 2021-11-03 | [facility] | NEGATIVE | (missing) | (missing) | | (unavailable | 20:07 | [facility] | | | | + + + + + + + + + | Result panel 1367 | + + + + + + + + + | | 2021-11-03 | [facility] | NEGATIVE | (missing) | (missing) | | (unavailable | 20:07 | [facility] | | | | + + + + + + + + + | Result panel 1368 | + + + + + + + + + | | 2021-11-03 | [facility] | NEGATIVE | (missing) | (missing) | | (unavailable | 20:07 | [facility] | | | | + + + + + + + + + | Result panel 1369 | + + + + + + + + + | | 2021-11-03 | [facility] | NEGATIVE | (missing) | (missing) | | (unavailable | 20:07 | [facility] | | | | + + + + + + + + + | Result panel 1370 | + + + + + +-------+ + + | | 2021-11-03 | [facility] | 8.0 | (missing) | (missing) | | (unavailable | :28 | [facility] | | | | + + + +-------+ + + + + | Result panel 1371 | + + + + + + + + + | | 2021-11-03 | [facility] | SEE | (missing) | (missing) | | (unavailable | 20:28 | [facility] | | | [facility] | | [facility] | | | | + + + + + + + + + | Result panel 1372 | + + + + + +--------+ + + | | 2021-11-03 | [facility] | 5.19 | (missing) | (missing) | | (unavailable | 20:28 | [facility] | | | | + + + +--------+ + + + + | Result panel 1373 | + + + + + +--------+ + + | | 2021-11-03 | [facility] | 13.4 | (missing) | (missing) | | (unavailable | 20:28 | [facility] | | | | + + + +--------+ + + + + | Result panel 1374 | + + + + + +--------+ + + | | 2021-11-03 | [facility] | 40.6 | (missing) | (missing) | | (unavailable | :28 | [facility] | | | | + + + +--------+ + + + + | Result panel 1375 | + + + + + +--------+ + + | | 2021-11-03 | [facility] | 78.2 | (missing) | (missing) | | (unavailable | 20:28 | [facility] | | | | + + + +--------+ + + + + | Result panel 1376 | + + + + + +--------+ + + | | 2021-11-03 | [facility] | 25.9 | (missing) | (missing) | | (unavailable | :28 | [facility] | | | | + + + +--------+ + + + + | Result panel 1377 | + + + + + +--------+ + + | | 2021-11-03 | [facility] | 33.1 | (missing) | (missing) | | (unavailable | 20:28 | [facility] | | | | + + + +--------+ + + + + | Result panel 1378 | + + + + + +--------+ + + | | 2021-11-03 | [facility] | 20.1 | (missing) | (missing) | | (unavailable | 20:28 | [facility] | | | | + + + +--------+ + + + + | Result panel 1379 | + + + + + +-------+ + + | | 2021-11-03 | [facility] | 297 | (missing) | (missing) | | (unavailable | 20:28 | [facility] | | | | + + + +-------+ + + + + | Result panel 1380 | + + + + + +--------+ + + | | 2021-11-03 | [facility] | 63.7 | (missing) | (missing) | | (unavailable | 20:28 | [facility] | | | | + + + +--------+ + + + + | Result panel 1381 | + + + + + +--------+ + + | | 2021-11-03 | [facility] | 24.9 | (missing) | (missing) | | (unavailable | 20:28 | [facility] | | | | + + + +--------+ + + + + | Result panel 1382 | + + + + + +-------+ + + | | 2021-11-03 | [facility] | 8.2 | (missing) | (missing) | | (unavailable | 20:28 | [facility] | | | | + + + +-------+ + + + + | Result panel 1383 | + + + + + +-------+ + + | | 2021-11-03 | [facility] | 2.1 | (missing) | (missing) | | (unavailable | 20:28 | [facility] | | | | + + + +-------+ + + + + | Result panel 1384 | + + + + + +-------+ + + | | 2021-11-03 | [facility] | 1.1 | (missing) | (missing) | | (unavailable | 20:28 | [facility] | | | | + + + +-------+ + + + + | Result panel 1385 | + + + + + +--------+ + + | | 2021-11-03 | [facility] | 7.47 | (missing) | (missing) | | (unavailable | 20:28 | [facility] | | | | + + + +--------+ + + + + | Result panel 1386 | + + + + + +-------+---------+ + | | 2021-11-03 | [facility] | 508 | mg/dL | (missing) | | (unavailable | 20:28 | [facility] | | | | + + + +-------+---------+ + + + | Result panel 1387 | + + + + + +------+---------+ + | | 2021-11-03 | [facility] | 27 | mg/dL | (missing) | | (unavailable | 20:28 | [facility] | | | | + + + +------+---------+ + + + | Result panel 1388 | + + + + + +--------+---------+ + | | 2021-11-03 | [facility] | 0.87 | mg/dL | (missing) | | (unavailable | 20:28 | [facility] | | | | + + + +--------+---------+ + + + | Result panel 1389 | + + + + + +------+ + + | | 2021-11-03 | [facility] | 91 | (missing) | (missing) | | (unavailable | 20:28 | [facility] | | | | + + + +------+ + + + + | Result panel 1390 | + + + + + +---------+ + + | | 2021-11-03 | [facility] | 31.03 | (missing) | (missing) | | (unavailable | 20:28 | [facility] | | | | + + + +---------+ + + + + | Result panel 1391 | + + + + + +-------+ + + | | 2021-11-03 | [facility] | 129 | (missing) | (missing) | | (unavailable | 20:28 | [facility] | | | | + + + +-------+ + + + + | Result panel 1392 | + + + + + +-------+ + + | | 2021-11-03 | [facility] | 3.9 | (missing) | (missing) | | (unavailable | 20:28 | [facility] | | | | + + + +-------+ + + + + | Result panel 1393 | + + + + + +------+ + + | | 2021-11-03 | [facility] | 91 | (missing) | (missing) | | (unavailable | 20:28 | [facility] | | | | + + + +------+ + + + + | Result panel 1394 | + + + + + +------+ + + | | 2021-11-03 | [facility] | 25 | (missing) | (missing) | | (unavailable | 20:28 | [facility] | | | | + + + +------+ + + + + | Result panel 1395 | + + + + + +--------+ + + | | 2021-11-03 | [facility] | 16.9 | (missing) | (missing) | | (unavailable | 20:28 | [facility] | | | | + + + +--------+ + + + + | Result panel 1396 | + + + + + +--------+---------+ + | | 2021-11-03 | [facility] | 10.8 | mg/dL | (missing) | | (unavailable | 20:28 | [facility] | | | | + + + +--------+---------+ + + + | Result panel 1397 | + + + + + +-------+ + + | | 2021-11-03 | [facility] | 8.1 | (missing) | (missing) | | (unavailable | 20:28 [facility] | | | | + + + +-------+ + + + + | Result panel 1398 | + + + + + +-------+ + + | | 2021-11-03 | [facility] | 3.8 | (missing) | (missing) | | (unavailable | 20:28 [facility] | | | | + + + +-------+ + + + + | Result panel 1399 | + + + + + +-------+ + + | | 2021-11-03 | [facility] | 4.3 | (missing) | (missing) | | (unavailable | 20:28 | [facility] | | | | + + + +-------+ + + + + | Result panel 1400 | + + + + + +--------+ + + | | 2021-11-03 | [facility] | 0.88 | (missing) | (missing) | | (unavailable | 20:28 | [facility] | | | | + + + +--------+ + + + + | Result panel 1401 | + + + + + +-------+ + + | | 2021-11-03 | [facility] | 0.5 | (missing) | (missing) | | (unavailable | 20:28 | [facility] | | | | + + + +-------+ + + + + | Result panel 1402 | + + + + + +------+ + + | | 2021-11-03 | [facility] | 18 | (missing) | (missing) | | (unavailable | 20:28 | [facility] | | | | + + + +------+ + + + + | Result panel 1403 | + + + + + +------+ + + | | 2021-11-03 | [facility] | 34 | (missing) | (missing) | | (unavailable | 20:28 | [facility] | | | | + + + +------+ + + + + | Result panel 1404 | + + + + + +------+ + + | | 2021-11-03 | [facility] | 87 | (missing) | (missing) | | (unavailable | 20:28 | [facility] | | | | + + + +------+ + + + + | Result panel 1405 | + + + + + +-------+ + + | | 2021-11-03 | [facility] | 178 | (missing) | (missing) | | (unavailable | 20:28 | [facility] | | | | + + + +-------+ + + + + | Result panel 1406 | + + + + + +-------+ + + | | 2021-11-03 | [facility] | 6.4 | (missing) | (missing) | | (unavailable | 20:28 | [facility] | | | | + + + +-------+ + + + + | Result panel 1407 | + + + + + +-------+ + + | | 2021-11-03 | [facility] | 0.3 | (missing) | (missing) | | (unavailable | 20:28 | [facility] | | | | + + + +-------+ + + + + | Result panel 1408 | + + + + + + + + + | | 2021-11-03 | [facility] | SEE SCANNED | (missing) | (missing) | | (unavailable | 20:28 | [facility] REPORT [facility] ) | | [facility] | | | | + + + + + + + + + | Result panel 1409 | + + + + + + + + + | | 2021-11-03 | [facility] | SEE | (missing) | (missing) | | (unavailable | :28 | [facility] COMMENTS | | | | ) | | [facility] | | | | + + + + + + + + + | Result panel 1410 | + + + + + +-------+ + + | | 2021-11-03 | [facility] | 178 | (missing) | (missing) | | (unavailable | :28 | [facility] | | | | + + + +-------+ + + + + | Result panel 1411 | + + + + + +-------+ + + | | 2021-11-03 | [facility] | 6.4 | (missing) | (missing) | | (unavailable | :28 | [facility] | | | | + + + +-------+ + + + + | Result panel 1412 | + + + + + +-------+ + + | | 2021-11-03 | [facility] | 0.3 | (missing) | (missing) | | (unavailable | 20:28 | [facility] | | | | + + + +-------+ + + + + | Result panel 1413 | + + + + + + + + + | | 2021-11-03 | [facility] | SEE SCANNED | (missing) | (missing) | | (unavailable | 20:28 | [facility] | | | | + + + + + + + + + | Result panel 1414 | + + + + + + + + + | | 2021-11-03 | [facility] | SEE | (missing) | (missing) | | (unavailable | 20:28 | [facility] | COMMENTS | | | | ) | | [facility] | | | | + + + + + + + + + | Result panel 1415 | + + + + + +-------+ + + | | 2021-11-03 | [facility] | 6.4 | (missing) | (missing) | | (unavailable | :28 | [facility] | | | | + + + +-------+ + + + + | Result panel 1416 | + + + + + +-------+ + + | | 2021-11-03 | [facility] | 0.3 | (missing) | (missing) | | (unavailable | 20:28 | [facility] | | | | + + + +-------+ + + + + | Result panel 1417 | + + + + + + + + + | | 2021-11-03 | [facility] | SEE SCANNED | (missing) | (missing) | | (unavailable | 20:28 | [facility] | [facility] | | | | + + + + + + + + + | Result panel 1418 | + + + + + + + + + | | 2021-11-03 | [facility] | NEGATIVE | (missing) | (missing) | | (unavailable | 20:35 | [facility] | | | | + + + + + + + + + | Result panel 1419 | + + + + + + + + + | | 2021-11-03 | [facility] | NEGATIVE | (missing) | (missing) | | (unavailable | 20:35 | [facility] | | | | + + + + + + + + + | Result panel 1420 | + + + + + + + + + | | 2021-11-03 | [facility] | NEGATIVE | (missing) | (missing) | | (unavailable | 20:35 | [facility] | | | | + + + + + + + + + | Result panel 1421 | + + + + + + + + + | | 2021-11-03 | [facility] | NEGATIVE | (missing) | (missing) | | (unavailable | 20:35 | [facility] | | | | + + + + + + + + + | Result panel 1422 | + + + + + +-------+ + + | | 2021-11-03 | [facility] | 393 | (missing) | (missing) | | (unavailable | 22:43 | [facility] | | | | + + + +-------+ + + + + | Result panel 1423 | + + + + + +-------+ + + | | 2021-12-03 | [facility] | 7.5 | (missing) | (missing) | | (unavailable | 18:21 | [facility] | | | | + + + +-------+ + + + + | Result panel 1424 | + + + + + +--------+ + + | | 2021-12-03 | [facility] | 5.09 | (missing) | (missing) | | (unavailable | 18:21 | [facility] | | | | + + + +--------+ + + + + | Result panel 1425 | + + + + + +--------+ + + | | 2021-12-03 | [facility] | 13.4 | (missing) | (missing) | | (unavailable | 18:21 | [facility] | | | | + + + +--------+ + + + + | Result panel 1426 | + + + + + +--------+ + + | | 2021-12-03 | [facility] | 41.3 | (missing) | (missing) | | (unavailable | 18:21 | [facility] | | | | + + + +--------+ + + + + | Result panel 1427 | + + + + + +--------+ + + | | 2021-12-03 | [facility] | 81.1 | (missing) | (missing) | | (unavailable | 18:21 | [facility] | | | | + + + +--------+ + + + + | Result panel 1428 | + + + + + +--------+ + + | | 2021-12-03 | [facility] | 26.3 | (missing) | (missing) | | (unavailable | 18:21 | [facility] | | | | + + + +--------+ + + + + | Result panel 1429 | + + + + + +--------+ + + | | 2021-12-03 | [facility] | 32.4 | (missing) | (missing) | | (unavailable | 18:21 | [facility] | | | | + + + +--------+ + + + + | Result panel 1430 | + + + + + +--------+ + + | | 2021-12-03 | [facility] | 17.0 | (missing) | (missing) | | (unavailable | 18:21 | [facility] | | | | + + + +--------+ + + + + | Result panel 1431 | + + + + + +-------+ + + | | 2021-12-03 | [facility] | 249 | (missing) | (missing) | | (unavailable | 18:21 | [facility] | | | | + + + +-------+ + + + + | Result panel 1432 | + + + + + +--------+ + + | | 2021-12-03 | [facility] | 67.3 | (missing) | (missing) | | (unavailable | 18:21 | [facility] | | | | + + + +--------+ + + + + | Result panel 1433 | + + + + + +--------+ + + | | 2021-12-03 | [facility] | 20.1 | (missing) | (missing) | | (unavailable | 18:21 | [facility] | | | | + + + +--------+ + + + + | Result panel 1434 | + + + + + +-------+ + + | | 2021-12-03 | [facility] | 9.9 | (missing) | (missing) | | (unavailable | 18:21 | [facility] | | | | + + + +-------+ + + + + | Result panel 1435 | + + + + + +-------+ + + | | 2021-12-03 | [facility] | 1.7 | (missing) | (missing) | | (unavailable | 18:21 | [facility] | | | | + + + +-------+ + + + + | Result panel 1436 | + + + + + +-------+ + + | | 2021-12-03 | [facility] | 1.0 | (missing) | (missing) | | (unavailable | 18:21 | [facility] | | | | + + + +-------+ + + + + | Result panel 1437 | + + + + + +--------+ + + | | 2021-12-03 | [facility] | 7.41 | (missing) | (missing) | | (unavailable | 18:21 | [facility] | | | | + + + +--------+ + + + + | Result panel 1438 | + + + + + +-------+---------+ + | | 2021-12-03 | [facility] | 369 | mg/dL | (missing) | | (unavailable | 18:21 | [facility] | | | | + + + +-------+---------+ + + + | Result panel 1439 | + + + + + +------+---------+ + | | 2021-12-03 | [facility] | 21 | mg/dL | (missing) | | (unavailable | 18:21 | [facility] | | | | + + + +------+---------+ + + + | Result panel 1440 | + + + + + +--------+---------+ + | | 2021-12-03 | [facility] | 0.88 | mg/dL | (missing) | | (unavailable | 18:21 | [facility] | | | | + + + +--------+---------+ + + + | Result panel 1441 | + + + + + +------+ + + | | 2021-12-03 | [facility] | 89 | (missing) | (missing) | | (unavailable | 18:21 | [facility] | | | | + + + +------+ + + + + | Result panel 1442 | + + + + + +---------+ + + | | 2021-12-03 | [facility] | 23.86 | (missing) | (missing) | | (unavailable | 18:21 | [facility] | | | | + + + +---------+ + + + + | Result panel 1443 | + + + + + +-------+ + + | | 2021-12-03 | [facility] | 130 | (missing) | (missing) | | (unavailable | 18:21 | [facility] | | | | + + + +-------+ + + + + | Result panel 1444 | + + + + + +-------+ + + | | 2021-12-03 | [facility] | 3.9 | (missing) | (missing) | | (unavailable | 18:21 | [facility] | | | | + + + +-------+ + + + + | Result panel 1445 | + + + + + +------+ + + | | 2021-12-03 | [facility] | 94 | (missing) | (missing) | | (unavailable | 18:21 | [facility] | | [facility] ) | [facility] | | | | + + + +------+ + + + + | Result panel 1446 | + + + + + +------+ + + | | 2021-12-03 | [facility] | 25 | (missing) | (missing) | | (unavailable | 18:21 | [facility] | | | | + + + +------+ + + + + | Result panel 1447 | + + + + + +--------+ + + | | 2021-12-03 | [facility] | 14.9 | (missing) | (missing) | | (unavailable | 18:21 | [facility] | | | | + + + +--------+ + + + + | Result panel 1448 | + + + + + +-------+---------+ + | | 2021-12-03 | [facility] | 9.3 | mg/dL | (missing) | | (unavailable | 18:21 | [facility] | | | | + + + +-------+---------+ + + + | Result panel 1449 | + + + + + +-------+ + + | | 2021-12-03 | [facility] | 7.9 | (missing) | (missing) | | (unavailable | 18:21 | [facility] | | | | + + + +-------+ + + + + | Result panel 1450 | + + + + + +-------+ + + | | 2021-12-03 | [facility] | 3.7 | (missing) | (missing) | | (unavailable | 18:21 | [facility] | | | | + + + +-------+ + + + + | Result panel 1451 | + + + + + +-------+ + + | | 2021-12-03 | [facility] | 4.2 | (missing) | (missing) | | (unavailable | 18:21 | [facility] | | | | + + + +-------+ + + + + | Result panel 1452 | + + + + + +--------+ + + | | 2021-12-03 | [facility] | 0.88 | (missing) | (missing) | | (unavailable | 18:21 | [facility] | | | | + + + +--------+ + + + + | Result panel 1453 | + + + + + +-------+ + + | | 2021-12-03 | [facility] | 0.4 | (missing) | (missing) | | (unavailable | 18:21 | [facility] | | | | + + + +-------+ + + + + | Result panel 1454 | + + + + + +------+ + + | | 2021-12-03 | [facility] | 13 | (missing) | (missing) | | (unavailable | 18:21 | [facility] | | | | + + + +------+ + + + + | Result panel 1455 | + + + + + +------+ + + | | 2021-12-03 | [facility] | 29 | (missing) | (missing) | | (unavailable | 18:21 | [facility] | | | | + + + +------+ + + + + | Result panel 1456 | + + + + + +------+ + + | | 2021-12-03 | [facility] | 67 | (missing) | (missing) | | (unavailable | 18:21 | [facility] | | | | + + + +------+ + + + + | Result panel 1457 | + + + + + + + + + | | 2021-12-03 | [facility] | NEGATIVE | (missing) | (missing) | | (unavailable | 18:21 | [facility] | | | | + + + + + + + + + | Result panel 1458 | + + + + + +--------+ + + | | 2021-12-03 | [facility] | 7.41 | (missing) | (missing) | | (unavailable | 18:21 | [facility] | | | | + + + +--------+ + + + + | Result panel 1459 | + + + + + +------+ + + | | 2021-12-03 | [facility] | 13 | (missing) | (missing) | | (unavailable | 18:21 | [facility] | | | | + + + +------+ + + + + | Result panel 1460 | + + + + + +------+ + + | | 2021-12-03 | [facility] | 29 | (missing) | (missing) | | (unavailable | 18:21 | [facility] | | | | + + + +------+ + + + + | Result panel 1461 | + + + + + + + + + | | 2021-12-03 | [facility] | NEGATIVE | (missing) | (missing) | | (unavailable | 18:21 | [facility] | | | | + + + + + + + + + | Result panel 1462 | + + + + + + + + + | | 2021-12-03 | [facility] | NEGATIVE | (missing) | (missing) | | (unavailable | 19:22 | [facility] | | | | + + + + + + + + + | Result panel 1463 | + + + + + + + + + | | 2021-12-03 | [facility] | NEGATIVE | (missing) | (missing) | | (unavailable | 19:22 | [facility] | | | | + + + + + + + + + | Result panel 1464 | + + + + + + + + + | | 2021-12-03 | [facility] | NEGATIVE | (missing) | (missing) | | (unavailable | 19:22 | [facility] | | | | + + + + + + + + + | Result panel 1465 | + + + + + + + + + | | 2021-12-03 | [facility] | NEGATIVE | (missing) | (missing) | | (unavailable | 19:22 | [facility] | | | | + + + + + + + + + | Result panel 1466 | + + + + + + + + + | | 2021-12-03 | [facility] | NEGATIVE | (missing) | (missing) | | (unavailable | 19:22 | [facility] | | | | + + + + + + + + + | Result panel 1467 | + + + + + + + + + | | 2021-12-03 | [facility] | NEGATIVE | (missing) | (missing) | | (unavailable | 19:22 | [facility] | | | | + + + + + + + + + | Result panel 1468 | + + + + + + + + + | | 2021-12-03 | [facility] | NEGATIVE | (missing) | (missing) | | (unavailable | 19:22 | [facility] | | | | + + + + + + + + + | Result panel 1469 | + + + + + + + + + | | 2021-12-03 | [facility] | NEGATIVE | (missing) | (missing) | | (unavailable | 19:22 | [facility] | | | | + + + + + + + + + | Result panel 1470 | + + + + + +-------+ + + | | 2021-12-03 | [facility] | 221 | (missing) | (missing) | | (unavailable | 20:15 | [facility] | | | | + + + +-------+ + + + + | Result panel 1471 | + + + + + +-------+ + + | | 2021-12-26 | [facility] | 8.1 | (missing) | (missing) | | (unavailable | 13:35 | [facility] | | | | + + + +-------+ + + + + | Result panel 1472 | + + + + + +--------+ + + | | 2021-12-26 | [facility] | 4.90 | (missing) | (missing) | | (unavailable | 13:35 | [facility] | | | | + + + +--------+ + + + + | Result panel 1473 | + + + + + +--------+ + + | | 2021-12-26 | [facility] | 14.0 | (missing) | (missing) | | (unavailable | 13:35 | [facility] | | | | + + + +--------+ + + + + | Result panel 1474 | + + + + + +--------+ + + | | 2021-12-26 | [facility] | 39.8 | (missing) | (missing) | | (unavailable | 13:35 | [facility] | | | | + + + +--------+ + + + + | Result panel 1475 | + + + + + +--------+ + + | | 2021-12-26 | [facility] | 81.3 | (missing) | (missing) | | (unavailable | 13:35 | [facility] | | | | + + + +--------+ + + + + | Result panel 1476 | + + + + + +--------+ + + | | 2021-12-26 | [facility] | 28.6 | (missing) | (missing) | | (unavailable | 13:35 | [facility] | | | | + + + +--------+ + + + + | Result panel 1477 | + + + + + +--------+ + + | | 2021-12-26 | [facility] | 35.2 | (missing) | (missing) | | (unavailable | 13:35 | [facility] | | | | + + + +--------+ + + + + | Result panel 1478 | + + + + + +--------+ + + | | 2021-12-26 | [facility] | 14.3 | (missing) | (missing) | | (unavailable | 13:35 | [facility] | | | | + + + +--------+ + + + + | Result panel 1479 | + + + + + +-------+ + + | | 2021-12-26 | [facility] | 243 | (missing) | (missing) | | (unavailable | 13:35 | [facility] | | | | + + + +-------+ + + + + | Result panel 1480 | + + + + + +--------+ + + | | 2021-12-26 | [facility] | 70.3 | (missing) | (missing) | | (unavailable | 13:35 | [facility] | | | | + + + +--------+ + + + + | Result panel 1481 | + + + + + +--------+ + + | | 2021-12-26 | [facility] | 20.0 | (missing) | (missing) | | (unavailable | 13:35 | [facility] | | | | + + + +--------+ + + + + | Result panel 1482 | + + + + + +-------+ + + | | 2021-12-26 | [facility] | 7.6 | (missing) | (missing) | | (unavailable | 13:35 | [facility] | | | | + + + +-------+ + + + + | Result panel 1483 | + + + + + +-------+ + + | | 2021-12-26 | [facility] | 1.4 | (missing) | (missing) | | (unavailable | 13:35 | [facility] | | | | + + + +-------+ + + + + | Result panel 1484 | + + + + + +-------+ + + | | 2021-12-26 | [facility] | 0.7 | (missing) | (missing) | | (unavailable | 13:35 | [facility] | | | | + + + +-------+ + + + + | Result panel 1485 | + + + + + + + + + | | 2021-12-26 | [facility] | YELLOW | (missing) | (missing) | | (unavailable | 13:35 | [facility] | | | | + + + + + + + + + | Result panel 1486 | + + + + + +---------+ + + | | 2021-12-26 | [facility] | CLEAR | (missing) | (missing) | | (unavailable | 13:35 | [facility] | | | | + + + +---------+ + + + + | Result panel 1487 | + + + + + + + + + | | 2021-12-26 | [facility] | >=1000 | (missing) | (missing) | | (unavailable | 13:35 | [facility] | | | | + + + + + + + + + | Result panel 1488 | + + + + + + + + + | | 2021-12-26 | [facility] | NEGATIVE | (missing) | (missing) | | (unavailable | 13:35 | [facility] | | | | + + + + + + + + + | Result panel 1489 | + + + + + + + + + | | 2021-12-26 | [facility] | NEGATIVE | (missing) | (missing) | | (unavailable | 13:35 | [facility] | | | | + + + + + + + + + | Result panel 1490 | + + + + + +---------+ + + | | 2021-12-26 | [facility] | 1.010 | (missing) | (missing) | | (unavailable | 13:35 | [facility] | | | | + + + +---------+ + + + + | Result panel 1491 | + + + + + + + + + | | 2021-12-26 | [facility] | NEGATIVE | (missing) | (missing) | | (unavailable | 13:35 | [facility] | | | | + + + + + + + + + | Result panel 1492 | + + + + + +-------+ + + | | 2021-12-26 | [facility] | 6.0 | (missing) | (missing) | | (unavailable | 13:35 | [facility] | | | | + + + +-------+ + + + + | Result panel 1493 | + + + + + + + + + | | 2021-12-26 | [facility] | NEGATIVE | (missing) | (missing) | | (unavailable | 13:35 | [facility] | | | | + + + + + + + + + | Result panel 1494 | + + + + + + + + + | | 2021-12-26 | [facility] | NORMAL | (missing) | (missing) | | (unavailable | 13:35 | [facility] | | | | + + + + + + + + + | Result panel 1495 | + + + + + + + + + | | 2021-12-26 | [facility] | NEGATIVE | (missing) | (missing) | | (unavailable | 13:35 | [facility] | | | | + + + + + + + + + | Result panel 1496 | + + + + + + + + + | | 2021-12-26 | [facility] | NEGATIVE | (missing) | (missing) | | (unavailable | 13:35 | [facility] | | | | + + + + + + + + + | Result panel 1497 | + + + + + + + + + | | 2021-12-26 | [facility] | CLEAN CATCH | (missing) | (missing) | | (unavailable | 13:35 | [facility] | | | | + + + + + + + + + | Result panel 1498 | + + + + + +-------+---------+ + | | 2021-12-26 | [facility] | 471 | mg/dL | (missing) | | (unavailable | 13:35 | [facility] | | | | + + + +-------+---------+ + + + | Result panel 1499 | + + + + + +------+---------+ + | | 2021-12-26 | [facility] | 21 | mg/dL | (missing) | | (unavailable | 13:35 | [facility] | | | | + + + +------+---------+ + + + | Result panel 1500 | + + + + + +--------+---------+ + | | 2021-12-26 | [facility] | 0.83 | mg/dL | (missing) | | (unavailable | 13:35 | [facility] | | | | + + + +--------+---------+ + + + | Result panel 1501 | + + + + + +------+ + + | | 2021-12-26 | [facility] | 96 | (missing) | (missing) | | (unavailable | 13:35 | [facility] | | | | + + + +------+ + + + + | Result panel 1502 | + + + + + +---------+ + + | | 2021-12-26 | [facility] | 25.30 | (missing) | (missing) | | (unavailable | 13:35 | [facility] | | | | + + + +---------+ + + + + | Result panel 1503 | + + + + + +-------+ + + | | 2021-12-26 | [facility] | 129 | (missing) | (missing) | | (unavailable | 13:35 | [facility] | | | | + + + +-------+ + + + + | Result panel 1504 | + + + + + +-------+ + + | | 2021-12-26 | [facility] | 3.9 | (missing) | (missing) | | (unavailable | 13:35 | [facility] | | | | + + + +-------+ + + + + | Result panel 1505 | + + + + + +------+ + + | | 2021-12-26 | [facility] | 95 | (missing) | (missing) | | (unavailable | 13:35 | [facility] | | | | + + + +------+ + + + + | Result panel 1506 | + + + + + +------+ + + | | 2021-12-26 | [facility] | 18 | (missing) | (missing) | | (unavailable | 13:35 | [facility] | | | | + + + +------+ + + + + | Result panel 1507 | + + + + + +--------+ + + | | 2021-12-26 | [facility] | 19.9 | (missing) | (missing) | | (unavailable | 13:35 [facility] | | | | + + + +--------+ + + + + | Result panel 1508 | + + + + + +-------+---------+ + | | 2021-12-26 | [facility] | 8.2 | mg/dL | (missing) | | (unavailable | 13:35 [facility] | | | | + + + +-------+---------+ + + + | Result panel 1509 | + + + + + +-------+---------+ + | | 2021-12-26 | [facility] | 1.4 | mg/dL | (missing) | | (unavailable | 13:35 [facility] | | | | + + + +-------+---------+ + + + | Result panel 1510 | + + + + + +-------+ + + | | 2021-12-26 | [facility] | 7.2 | (missing) | (missing) | | (unavailable | 13:35 [facility] | | | | + + + +-------+ + + + + | Result panel 1511 | + + + + + +-------+ + + | | 2021-12-26 | [facility] | 3.3 | (missing) | (missing) | | (unavailable | 13:35 [facility] | | | | + + + +-------+ + + + + | Result panel 1512 | + + + + + +-------+ + + | | 2021-12-26 | [facility] | 3.9 | (missing) | (missing) | | (unavailable | 13:35 [facility] | | | | + + + +-------+ + + + + | Result panel 1513 | + + + + + +--------+ + + | | 2021-12-26 | [facility] | 0.85 | (missing) | (missing) | | (unavailable | 13:35 [facility] | | | | + + + +--------+ + + + + | Result panel 1514 | + + + + + +-------+ + + | | 2021-12-26 | [facility] | 0.4 | (missing) | (missing) | | (unavailable | 13:35 [facility] | | | | + + + +-------+ + + + + | Result panel 1515 | + + + + + +------+ + + | | 2021-12-26 | [facility] | 79 | (missing) | (missing) | | (unavailable | 13:35 | [facility] | | | | + + + +------+ + + + + | Result panel 1516 | + + + + + +-------+ + + | | 2021-12-26 | [facility] | 163 | (missing) | (missing) | | (unavailable | 13:35 | [facility] | | | | + + + +-------+ + + + + | Result panel 1517 | + + + + + + + + + | | 2021-12-26 | [facility] | NEGATIVE | (missing) | (missing) | | (unavailable | 13:35 [facility] | | | | + + + + + + + + + | Result panel 1518 | + + + + + +--------+ + + | | 2021-12-26 | [facility] | 70.3 | (missing) | (missing) | | (unavailable | 13:35 [facility] | | | | + + + +--------+ + + + + | Result panel 1519 | + + + + + +--------+ + + | | 2021-12-26 | [facility] | 20.0 | (missing) | (missing) | | (unavailable | 13:35 [facility] | | | | + + + +--------+ + + + + | Result panel 1520 | + + + + + +-------+ + + | | 2021-12-26 | [facility] | 7.6 | (missing) | (missing) | | (unavailable | 13:35 [facility] | | | | + + + +-------+ + + + + | Result panel 1521 | + + + + + +-------+ + + | | 2021-12-26 | [facility] | 1.4 | (missing) | (missing) | | (unavailable | 13:35 | [facility] | | | | + + + +-------+ + + + + | Result panel 1522 | + + + + + +-------+ + + | | 2021-12-26 | [facility] | 0.7 | (missing) | (missing) | | (unavailable | 13:35 | [facility] | | | | + + + +-------+ + + + + | Result panel 1523 | + + + + + +-------+---------+ + | | 2021-12-26 | [facility] | 1.4 | mg/dL | (missing) | | (unavailable | 13:35 | [facility] | | | | + + + +-------+---------+ + + + | Result panel 1524 | + + + + + +-------+ + + | | 2021-12-26 | [facility] | 163 | (missing) | (missing) | | (unavailable | 13:35 | [facility] | | | | + + + +-------+ + + + + | Result panel 1525 | + + + + + + + + + | | 2021-12-26 | [facility] | NEGATIVE | (missing) | (missing) | | (unavailable | 13:35 | [facility] | | | | + + + + + + + + + | Result panel 1526 | + + + + + +-------+ + + | | 2021-12-26 | [facility] | 290 | (missing) | (missing) | | (unavailable | 15:29 | [facility] | | | | + + + +-------+ + + + + | Result panel 1527 | + + + + + +-------+ + + | | 2021-12-26 | [facility] | 290 | (missing) | (missing) | | (unavailable | 15:29 | [facility] | | | | + + + +-------+ + + + + | Result panel 1528 | + + + + + + + + + | | 2022-01-11 | [facility] | YELLOW | (missing) | (missing) | | (unavailable | 21:10 | [facility] | | | | + + + + + + + + + | Result panel 1529 | + + + + + + + + + | | 2022-01-11 | [facility] | SL CLOUDY | (missing) | (missing) | | (unavailable | 21:10 | [facility] | | | | + + + + + + + + + | Result panel 1530 | + + + + + + + + + | | 2022-01-11 | [facility] | >=1000 | (missing) | (missing) | | (unavailable | 21:10 | [facility] | | | | + + + + + + + + + | Result panel 1531 | + + + + + + + + + | | 2022-01-11 | [facility] | NEGATIVE | (missing) | (missing) | | (unavailable | 21:10 | [facility] | | | | + + + + + + + + + | Result panel 1532 | + + + + + + + + + | | 2022-01-11 | [facility] | NEGATIVE | (missing) | (missing) | | (unavailable | 21:10 | [facility] | | | | + + + + + + + + + | Result panel 1533 | + + + + + +---------+ + + | | 2022-01-11 | [facility] | 1.010 | (missing) | (missing) | | (unavailable | 21:10 | [facility] | | | | + + + +---------+ + + + + | Result panel 1534 | + + + + + + + + + | | 2022-01-11 | [facility] | NEGATIVE | (missing) | (missing) | | (unavailable | 21:10 | [facility] | | | | + + + + + + + + + | Result panel 1535 | + + + + + +-------+ + + | | 2022-01-11 | [facility] | 6.0 | (missing) | (missing) | | (unavailable | 21:10 | [facility] | | | | + + + +-------+ + + + + | Result panel 1536 | + + + + + + + + + | | 2022-01-11 | [facility] | NEGATIVE | (missing) | (missing) | | (unavailable | 21:10 | [facility] | | | | + + + + + + + + + | Result panel 1537 | + + + + + + + + + | | 2022-01-11 | [facility] | NORMAL | (missing) | (missing) | | (unavailable | 21:10 | [facility] | | | | + + + + + + + + + | Result panel 1538 | + + + + + + + + + | | 2022-01-11 | [facility] | NEGATIVE | (missing) | (missing) | | (unavailable | 21:10 [facility] | | | | + + + + + + + + + | Result panel 1539 | + + + + + +---------+ + + | | 2022-01-11 | [facility] | SMALL | (missing) | (missing) | | (unavailable | 21:10 [facility] | | | | + + + +---------+ + + + + | Result panel 1540 | + + + + + +-------+ + + | | 2022-01-11 | [facility] | 2-3 | (missing) | (missing) | | (unavailable | 21:10 [facility] | | | | + + + +-------+ + + + + | Result panel 1541 | + + + + + +---------+ + + | | 2022-01-11 | [facility] | 41-50 | (missing) | (missing) | | (unavailable | 21:10 [facility] | | | | + + + +---------+ + + + + | Result panel 1542 | + + + + + + + + + | | 2022-01-11 | [facility] | SQUAMOUS 2+ | (missing) | (missing) | | (unavailable | 21:10 [facility] | | | | + + + + + + + + + | Result panel 1543 | + + + + + + + + + | | 2022-01-11 | [facility] | NONE SEEN | (missing) | (missing) | | (unavailable | 21:10 [facility] | | | + + + + + + + + + | Result panel 1544 | + + + + + +------+ + + | | 2022-01-11 | [facility] | 4+ | (missing) | (missing) | | (unavailable | 21:10 [facility] | | | + + + +------+ + + + + | Result panel 1545 | + + + + + + + + + | | 2022-01-11 | [facility] | NONE SEEN | (missing) | (missing) | | (unavailable | 21:10 [facility] | | | + + + + + + + + + | Result panel 1546 | + + + + + +-------+ + + | | 2022-01-11 | [facility] | Yes | (missing) | (missing) | | (unavailable | 21:10 [facility] | | | + + + +-------+ + + + + | Result panel 1547 | + + + + + + + + + | | 2022-01-11 | [facility] | CLEAN CATCH | (missing) | (missing) | | (unavailable | 21:10 [facility] | | | + + + + + + + + + | Result panel 1548 | + + + + + +------+ + + | | 2022-01-11 | [facility] | 68 | (missing) | (missing) | | (unavailable | 21:40 [facility] | | | + + + +------+ + + + + | Result panel 1549 | + + + + + +------+ + + | | 2022-01-11 | [facility] | 25 | (missing) | (missing) | | (unavailable | 21:40 [facility] | | | + + + +------+ + + + + | Result panel 1550 | + + + + + +-----+ + + | | 2022-01-11 | [facility] | 4 | (missing) | (missing) | | (unavailable | 21:40 [facility] | | | + + + +-----+ + + + + | Result panel 1551 | + + + + + +-----+ + + | | 2022-01-11 | [facility] | 1 | (missing) | (missing) | | (unavailable | 21:40 [facility] | | | + + + +-----+ + + + + | Result panel 1552 | + + + + + +-----+ + + | | 2022-01-11 | [facility] | 2 | (missing) | (missing) | | (unavailable | 21:40 [facility] | | | + + + +-----+ + + + + | Result panel 1553 | + + + + + +-------+ + + | | 2022-01-11 | [facility] | 7.4 | (missing) | (missing) | | (unavailable | 21:40 [facility] | | | + + + +-------+ + + + + | Result panel 1554 | + + + + + +-------+ + + | | 2022-01-11 | [facility] | 9.3 | (missing) | (missing) | | (unavailable | 21:40 [facility] | | | + + + +-------+ + + + + | Result panel 1555 | + + + + + +--------+ + + | | 2022-01-11 | [facility] | 4.92 | (missing) | (missing) | | (unavailable | 21:40 [facility] | | | + + + +--------+ + + + + | Result panel 1556 | + + + + + +--------+ + + | | 2022-01-11 | [facility] | 14.5 | (missing) | (missing) | | (unavailable | 21:40 [facility] | | | + + + +--------+ + + + + | Result panel 1557 | + + + + + +--------+ + + | | 2022-01-11 | [facility] | 40.5 | (missing) | (missing) | | (unavailable | 21:40 [facility] | | | + + + +--------+ + + + + | Result panel 1558 | + + + + + +--------+ + + | | 2022-01-11 | [facility] | 82.2 | (missing) | (missing) | | (unavailable | 21:40 [facility] | | | + + + +--------+ + + + + | Result panel 1559 | + + + + + +--------+ + + | | 2022-01-11 | [facility] | 29.5 | (missing) | (missing) | | (unavailable | 21:40 [facility] | | | + + + +--------+ + + + + | Result panel 1560 | + + + + + +--------+ + + | | 2022-01-11 | [facility] | 35.9 | (missing) | (missing) | | (unavailable | 21:40 [facility] | | | + + + +--------+ + + + + | Result panel 1561 | + + + + + +--------+ + + | | 2022-01-11 | [facility] | 13.7 | (missing) | (missing) | | (unavailable | 21:40 [facility] | | | + + + +--------+ + + + + | Result panel 1562 | + + + + + +-------+ + + | | 2022-01-11 | [facility] | 297 | (missing) | (missing) | | (unavailable | 21:40 [facility] | | | + + + +-------+ + + + + | Result panel 1563 | + + + + + +------+ + + | | 2022-01-11 | [facility] | 68 | (missing) | (missing) | | (unavailable | 21:40 [facility] | | | + + + +------+ + + + + | Result panel 1564 | + + + + + +------+ + + | | 2022-01-11 | [facility] | 25 | (missing) | (missing) | | (unavailable | 21:40 [facility] | | | + + + +------+ + + + + | Result panel 1565 | + + + + + +-----+ + + | | 2022-01-11 | [facility] | 4 | (missing) | (missing) | | (unavailable | 21:40 [facility] | | | + + + +-----+ + + + + | Result panel 1566 | + + + + + +-----+ + + | | 2022-01-11 | [facility] | 1 | (missing) | (missing) | | (unavailable | 21:40 [facility] | | | + + + +-----+ + + + + | Result panel 1567 | + + + + + +-----+ + + | | 2022-01-11 | [facility] | 2 | (missing) | (missing) | | (unavailable | 21:40 [facility] | | | + + + +-----+ + + + + | Result panel 1568 | + + + + + +-------+ + + | | 2022-01-11 | [facility] | 7.4 | (missing) | (missing) | | (unavailable | 21:40 [facility] | | | + + + +-------+ + + + + | Result panel 1569 | + + + + + +------+ + + | | 2022-01-11 | [facility] | 68 | (missing) | (missing) | | (unavailable | 21:40 [facility] | | | + + + +------+ + + + + | Result panel 1570 | + + + + + +------+ + + | | 2022-01-11 | [facility] | 25 | (missing) | (missing) | | (unavailable | 21:40 [facility] | | | + + + +------+ + + + + | Result panel 1571 | + + + + + +-----+ + + | | 2022-01-11 | [facility] | 4 | (missing) | (missing) | | (unavailable | 21:40 [facility] | | | + + + +-----+ + + + + | Result panel 1572 | + + + + + +-----+ + + | | 2022-01-11 | [facility] | 1 | (missing) | (missing) | | (unavailable | 21:40 [facility] | | | + + + +-----+ + + + + | Result panel 1573 | + + + + + +-----+ + + | | 2022-01-11 | [facility] | 2 | (missing) | (missing) | | (unavailable | 21:40 [facility] | | | + + + +-----+ + + + + | Result panel 1574 | + + + + + +-------+ + + | | 2022-01-11 | [facility] | 7.4 | (missing) | (missing) | | (unavailable | 21:40 [facility] | | | + + + +-------+ + + + + | Result panel 1575 | + + + + + +------+ + + | | 2022-01-11 | [facility] | 68 | (missing) | (missing) | | (unavailable | 21:40 [facility] | | | + + + +------+ + + + + | Result panel 1576 | + + + + + +------+ + + | | 2022-01-11 | [facility] | 25 | (missing) | (missing) | | (unavailable | 21:40 [facility] | | | + + + +------+ + + + + | Result panel 1577 | + + + + + +-----+ + + | | 2022-01-11 | [facility] | 4 | (missing) | (missing) | | (unavailable | 21:40 [facility] | | | + + + +-----+ + + + + | Result panel 1578 | + + + + + +-----+ + + | | 2022-01-11 | [facility] | 1 | (missing) | (missing) | | (unavailable | 21:40 [facility] | | | + + + +-----+ + + + + | Result panel 1579 | + + + + + +-----+ + + | | 2022-01-11 | [facility] | 2 | (missing) | (missing) | | (unavailable | 21:40 [facility] | | | + + + +-----+ + + + + | Result panel 1580 | + + + + + +-------+ + + | | 2022-01-11 | [facility] | 7.4 | (missing) | (missing) | | (unavailable | 21:40 [facility] | | | + + + +-------+ + + + + | Result panel 1581 | + + + + + + + + + | | 2022-01-11 | [facility] | NEGATIVE | (missing) | (missing) | | (unavailable | 21:50 | [facility] | | | + + + + + + + + + | Result panel 1582 | + + + + + + + + + | | 2022-01-11 | [facility] | NEGATIVE | (missing) | (missing) | | (unavailable | 21:50 | [facility] | | | + + + + + + + + + | Result panel 1583 | + + + + + + + + + | | 2022-01-11 | [facility] | NEGATIVE | (missing) | (missing) | | (unavailable | 21:50 | [facility] | | | + + + + + + + + + | Result panel 1584 | + + + + + + + + + | | 2022-01-11 | [facility] | NEGATIVE | (missing) | (missing) | | (unavailable | 21:50 | [facility] | | | + + + + + + + + + | Result panel 1585 | + + + + + + + + + | | 2022-01-11 | [facility] | NEGATIVE | (missing) | (missing) | | (unavailable | 21:50 [facility] | | | + + + + + + + + + | Result panel 1586 | + + + + + + + + + | | 2022-01-11 | [facility] | NEGATIVE | (missing) | (missing) | | (unavailable | 21:50 | [facility] | | | + + + + + + + + + | Result panel 1587 | + + + + + + + + + | | 2022-01-11 | [facility] | NEGATIVE | (missing) | (missing) | | (unavailable | 21:50 | [facility] | | | + + + + + + + + + | Result panel 1588 | + + + + + + + + + | | 2022-01-11 | [facility] | NEGATIVE | (missing) | (missing) | | (unavailable | 21:50 | [facility] | | | + + + + + + + + + | Result panel 1589 | + + + + + +-------+---------+ + | | 2022-01-11 | [facility] | 341 | mg/dL | (missing) | | (unavailable | 22:36 | [facility] | | | + + + +-------+---------+ + + + | Result panel 1590 | + + + + + +------+---------+ + | | 2022-01-11 | [facility] | 16 | mg/dL | (missing) | | (unavailable | 22:36 | [facility] | | | + + + +------+---------+ + + + | Result panel 1591 | + + + + + +--------+---------+ + | | 2022-01-11 | [facility] | 0.61 | mg/dL | (missing) | | (unavailable | 22:36 [facility] | | | + + + +--------+---------+ + + + | Result panel 1592 | + + + + + +-------+ + + | | 2022-01-11 | [facility] | 122 | (missing) | (missing) | | (unavailable | 22:36 [facility] | | | + + + +-------+ + + + + | Result panel 1593 | + + + + + +---------+ + + | | 2022-01-11 | [facility] | 26.22 | (missing) | (missing) | | (unavailable | 22:36 [facility] | | | + + + +---------+ + + + + | Result panel 1594 | + + + + + +-------+ + + | | 2022-01-11 | [facility] | 130 | (missing) | (missing) | | (unavailable | 22:36 [facility] | | | + + + +-------+ + + + + | Result panel 1595 | + + + + + +-------+ + + | | 2022-01-11 | [facility] | 3.9 | (missing) | (missing) | | (unavailable | 22:36 [facility] | | | + + + +-------+ + + + + | Result panel 1596 | + + + + + +------+ + + | | 2022-01-11 | [facility] | 97 | (missing) | (missing) | | (unavailable | 22:36 [facility] | | | + + + +------+ + + + + | Result panel 1597 | + + + + + +------+ + + | | 2022-01-11 | [facility] | 18 | (missing) | (missing) | | (unavailable | 22:36 [facility] | | | + + + +------+ + + + + | Result panel 1598 | + + + + + +--------+ + + | | 2022-01-11 | [facility] | 18.9 | (missing) | (missing) | | (unavailable | 22:36 [facility] | | | + + + +--------+ + + + + | Result panel 1599 | + + + + + +-------+---------+ + | | 2022-01-11 | [facility] | 7.0 | mg/dL | (missing) | | (unavailable | 22:36 [facility] | | | | + + + +-------+---------+ + + + | Result panel 1600 | + + + + + +-------+ + + | | 2022-01-11 | [facility] | 6.1 | (missing) | (missing) | | (unavailable | 22:36 [facility] | | | | + + + +-------+ + + + + | Result panel 1601 | + + + + + +-------+ + + | | 2022-01-11 | [facility] | 2.6 | (missing) | (missing) | | (unavailable | 22:36 [facility] | | | | + + + +-------+ + + + + | Result panel 1602 | + + + + + +-------+ + + | | 2022-01-11 | [facility] | 3.5 | (missing) | (missing) | | (unavailable | 22:36 [facility] | | | | + + + +-------+ + + + + | Result panel 1603 | + + + + + +--------+ + + | | 2022-01-11 | [facility] | 0.74 | (missing) | (missing) | | (unavailable | 22:36 [facility] | | | + + + +--------+ + + + + | Result panel 1604 | + + + + + +-------+ + + | | 2022-01-11 | [facility] | 0.5 | (missing) | (missing) | | (unavailable | 22:36 [facility] | | | + + + +-------+ + + + + | Result panel 1605 | + + + + + +------+ + + | | 2022-01-11 | [facility] | 11 | (missing) | (missing) | | (unavailable | 22:36 [facility] | | | + + + +------+ + + + + | Result panel 1606 | + + + + + +------+ + + | | 2022-01-11 | [facility] | 37 | (missing) | (missing) | | (unavailable | 22:36 [facility] | | | + + + +------+ + + + + | Result panel 1607 | + + + + + +------+ + + | | 2022-01-11 | [facility] | 62 | (missing) | (missing) | | (unavailable | 22:36 [facility] | | | + + + +------+ + + + + | Result panel 1608 | + + + + + +-------+ + + | | 2022-02-02 | [facility] | 8.3 | (missing) | (missing) | | (unavailable | 15:13 [facility] | | | + + + +-------+ + + + + | Result panel 1609 | + + + + + +--------+ + + | | 2022-02-02 | [facility] | 3.64 | (missing) | (missing) | | (unavailable | 15:13 [facility] | | | + + + +--------+ + + + + | Result panel 1610 | + + + + + +--------+ + + | | 2022-02-02 | [facility] | 10.3 | (missing) | (missing) | | (unavailable | 15:13 [facility] | | | + + + +--------+ + + + + | Result panel 1611 | + + + + + +--------+ + + | | 2022-02-02 | [facility] | 30.5 | (missing) | (missing) | | (unavailable | 15:13 [facility] | | | + + + +--------+ + + + + | Result panel 1612 | + + + + + +--------+ + + | | 2022-02-02 | [facility] | 83.8 | (missing) | (missing) | | (unavailable | 15:13 [facility] | | | + + + +--------+ + + + + | Result panel 1613 | + + + + + +--------+ + + | | 2022-02-02 | [facility] | 28.4 | (missing) | (missing) | | (unavailable | 15:13 [facility] | | | + + + +--------+ + + + + | Result panel 1614 | + + + + + +--------+ + + | | 2022-02-02 | [facility] | 33.9 | (missing) | (missing) | | (unavailable | 15:13 [facility] | | | + + + +--------+ + + + + | Result panel 1615 | + + + + + +--------+ + + | | 2022-02-02 | [facility] | 13.4 | (missing) | (missing) | | (unavailable | 15:13 [facility] | | | + + + +--------+ + + + + | Result panel 1616 | + + + + + +-------+ + + | | 2022-02-02 | [facility] | 230 | (missing) | (missing) | | (unavailable | 15:13 [facility] | | | + + + +-------+ + + + + | Result panel 1617 | + + + + + +--------+ + + | | 2022-02-02 | [facility] | 71.4 | (missing) | (missing) | | (unavailable | 15:13 [facility] | | | + + + +--------+ + + + + | Result panel 1618 | + + + + + +--------+ + + | | 2022-02-02 | [facility] | 18.4 | (missing) | (missing) | | (unavailable | 15:13 [facility] | | | + + + +--------+ + + + + | Result panel 1619 | + + + + + +-------+ + + | | 2022-02-02 | [facility] | 8.5 | (missing) | (missing) | | (unavailable | 15:13 [facility] | | | | + + + +-------+ + + + + | Result panel 1620 | + + + + + +-------+ + + | | 2022-02-02 | [facility] | 0.8 | (missing) | (missing) | | (unavailable | 15:13 [facility] | | | | + + + +-------+ + + + + | Result panel 1621 | + + + + + +-------+ + + | | 2022-02-02 | [facility] | 0.9 | (missing) | (missing) | | (unavailable | 15:13 [facility] | | | | + + + +-------+ + + + + | Result panel 1622 | + + + + + +-------+---------+ + | | 2022-02-02 | [facility] | 352 | mg/dL | (missing) | | (unavailable | 15:13 [facility] | | | | + + + +-------+---------+ + + + | Result panel 1623 | + + + + + +------+---------+ + | | 2022-02-02 | [facility] | 47 | mg/dL | (missing) | | (unavailable | 15:13 [facility] | | | | + + + +------+---------+ + + + | Result panel 1624 | + + + + + +--------+---------+ + | | 2022-02-02 | [facility] | 0.73 | mg/dL | (missing) | | (unavailable | 15:13 [facility] | | | | + + + +--------+---------+ + + + | Result panel 1625 | + + + + + +-------+ + + | | 2022-02-02 | [facility] | 112 | (missing) | (missing) | | (unavailable | 15:13 [facility] | | | + + + +-------+ + + + + | Result panel 1626 | + + + + + +---------+ + + | | 2022-02-02 | [facility] | 64.38 | (missing) | (missing) | | (unavailable | 15:13 [facility] | | | | + + + +---------+ + + + + | Result panel 1627 | + + + + + +-------+ + + | | 2022-02-02 | [facility] | 132 | (missing) | (missing) | | (unavailable | 15:13 [facility] | | | | + + + +-------+ + + + + | Result panel 1628 | + + + + + +-------+ + + | | 2022-02-02 | [facility] | 3.2 | (missing) | (missing) | | (unavailable | 15:13 [facility] | | | | + + + +-------+ + + + + | Result panel 1629 | + + + + + +-------+ + + | | 2022-02-02 | [facility] | 100 | (missing) | (missing) | | (unavailable | 15:13 [facility] | | | | + + + +-------+ + + + + | Result panel 1630 | + + + + + +------+ + + | | 2022-02-02 | [facility] | 21 | (missing) | (missing) | | (unavailable | 15:13 [facility] | | | | + + + +------+ + + + + | Result panel 1631 | + + + + + +--------+ + + | | 2022-02-02 | [facility] | 14.2 | (missing) | (missing) | | (unavailable | 15:13 [facility] | | | | + + + +--------+ + + + + | Result panel 1632 | + + + + + +-------+---------+ + | | 2022-02-02 | [facility] | 8.3 | mg/dL | (missing) | | (unavailable | 15:13 [facility] | | | | + + + +-------+---------+ + + + | Result panel 1633 | + + + + + +-------+ + + | | 2022-02-02 | [facility] | 6.3 | (missing) | (missing) | | (unavailable | 15:13 [facility] | | | | + + + +-------+ + + + + | Result panel 1634 | + + + + + +-------+ + + | | 2022-02-02 | [facility] | 3.0 | (missing) | (missing) | | (unavailable | 15:13 [facility] | | | | + + + +-------+ + + + + | Result panel 1635 | + + + + + +-------+ + + | | 2022-02-02 | [facility] | 3.3 | (missing) | (missing) | | (unavailable | 15:13 [facility] | | | | + + + +-------+ + + + + | Result panel 1636 | + + + + + +--------+ + + | | 2022-02-02 | [facility] | 0.91 | (missing) | (missing) | | (unavailable | 15:13 [facility] | | | | + + + +--------+ + + + + | Result panel 1637 | + + + + + +-------+ + + | | 2022-02-02 | [facility] | 0.2 | (missing) | (missing) | | (unavailable | 15:13 [facility] | | | | + + + +-------+ + + + + | Result panel 1638 | + + + + + +-----+ + + | | 2022-02-02 | [facility] | 9 | (missing) | (missing) | | (unavailable | 15:13 [facility] | | | | + + + +-----+ + + + + | Result panel 1639 | + + + + + +------+ + + | | 2022-02-02 | [facility] | 28 | (missing) | (missing) | | (unavailable | 15:13 [facility] | | | | + + + +------+ + + + + | Result panel 1640 | + + + + + +------+ + + | | 2022-02-02 | [facility] | 54 | (missing) | (missing) | | (unavailable | 15:13 [facility] | | | | + + + +------+ + + + + | Result panel 1641 | + + + + + +-------+ + + | | 2022-02-02 | [facility] | 118 | (missing) | (missing) | | (unavailable | 15:13 [facility] | | | | + + + +-------+ + + + + | Result panel 1642 | + + + + + + + + + | | 2022-02-02 | [facility] | NEGATIVE | (missing) | (missing) | | (unavailable | 15:13 [facility] | | | | + + + + + + + + + | Result panel 1643 | + + + + + + + + + | | 2022-02-02 | [facility] | YELLOW | (missing) | (missing) | | (unavailable | 15:53 | [facility] | | | | + + + + + + + + + | Result panel 1644 | + + + + + +---------+ + + | | 2022-02-02 | [facility] | CLEAR | (missing) | (missing) | | (unavailable | 15:53 [facility] | | | | + + + +---------+ + + + + | Result panel 1645 | + + + + + + + + + | | 2022-02-02 | [facility] | >=1000 | (missing) | (missing) | | (unavailable | 15:53 | [facility] | | | | + + + + + + + + + | Result panel 1646 | + + + + + + + + + | | 2022-02-02 | [facility] | NEGATIVE | (missing) | (missing) | | (unavailable | 15:53 [facility] | | | | + + + + + + + + + | Result panel 1647 | + + + + + + + + + | | 2022-02-02 | [facility] | NEGATIVE | (missing) | (missing) | | (unavailable | 15:53 [facility] | | | | + + + + + + + + + | Result panel 1648 | + + + + + +---------+ + + | | 2022-02-02 | [facility] | 1.010 | (missing) | (missing) | | (unavailable | 15:53 [facility] | | | | + + + +---------+ + + + + | Result panel 1649 | + + + + + +---------+ + + | | 2022-02-02 | [facility] | SMALL | (missing) | (missing) | | (unavailable | 15:53 [facility] | | | | + + + +---------+ + + + + | Result panel 1650 | + + + + + +-------+ + + | | 2022-02-02 | [facility] | 5.0 | (missing) | (missing) | | (unavailable | 15:53 [facility] | | | | + + + +-------+ + + + + | Result panel 1651 | + + + + + + + + + | | 2022-02-02 | [facility] | NEGATIVE | (missing) | (missing) | | (unavailable | 15:53 [facility] | | | | + + + + + + + + + | Result panel 1652 | + + + + + + + + + | | 2022-02-02 | [facility] | NORMAL | (missing) | (missing) | | (unavailable | 15:53 [facility] | | | | + + + + + + + + + | Result panel 1653 | + + + + + + + + + | | 2022-02-02 | [facility] | NEGATIVE | (missing) | (missing) | | (unavailable | 15:53 [facility] | | | | + + + + + + + + + | Result panel 1654 | + + + + + + + + + | | 2022-02-02 | [facility] | NEGATIVE | (missing) | (missing) | | (unavailable | 15:53 [facility] | | | | + + + + + + + + + | Result panel 165 | + + + + + +-------+ + + | | 2022-02-02 | [facility] | 2-3 | (missing) | (missing) | | (unavailable | 15:53 [facility] | | | | + + + +-------+ + + + + | Result panel 1656 | + + + + + +-------+ + + | | 2022-02-02 | [facility] | 0-1 | (missing) | (missing) | | (unavailable | 15:53 [facility] | | | | + + + +-------+ + + + + | Result panel 1657 | + + + + + + + + + | | 2022-02-02 | [facility] | SQUAMOUS 4+ | (missing) | (missing) | | (unavailable | 15:53 | [facility] | | | | + + + + + + + + + | Result panel 1658 | + + + + + + + + + | | 2022-02-02 | [facility] | NONE SEEN | (missing) | (missing) | | (unavailable | 15:53 [facility] | | | | + + + + + + + + + | Result panel 1659 | + + + + + +------+ + + | | 2022-02-02 | [facility] | 1+ | (missing) | (missing) | | (unavailable | 15:53 [facility] | | | | + + + +------+ + + + + | Result panel 1660 | + + + + + + + + + | | 2022-02-02 | [facility] | NONE SEEN | (missing) | (missing) | | (unavailable | 15:53 [facility] | | | | + + + + + + + + + | Result panel 1661 | + + + + + +------+ + + | | 2022-02-02 | [facility] | No | (missing) | (missing) | | (unavailable | 15:53 [facility] | | | | + + + +------+ + + + + | Result panel 1662 | + + + + + + + + + | | 2022-02-02 | [facility] | CLEAN CATCH | (missing) | (missing) | | (unavailable | 15:53 | [facility] | | | | + + + + + + + + + | Result panel 1663 | + + + + + + + + + | | 2022-02-02 | [facility] | YELLOW | (missing) | (missing) | | (unavailable | 15:53 | [facility] | | | | [facility] | | | | + + + + + + + + + | Result panel 1664 | + + + + + +---------+ + + | | 2022-02-02 | [facility] | CLEAR | (missing) | (missing) | | (unavailable | 15:53 | [facility] | | | | + + + +---------+ + + + + | Result panel 1665 | + + + + + + + + + | | 2022-02-02 | [facility] | >=1000 | (missing) | (missing) | | (unavailable | 15:53 | [facility] | | | | + + + + + + + + + | Result panel 1666 | + + + + + + + + + | | 2022-02-02 | [facility] | NEGATIVE | (missing) | (missing) | | (unavailable | 15:53 | [facility] | | | | + + + + + + + + + | Result panel 1667 | + + + + + + + + + | | 2022-02-02 | [facility] | NEGATIVE | (missing) | (missing) | | (unavailable | 15:53 | [facility] | | | | + + + + + + + + + | Result panel 1668 | + + + + + +---------+ + + | | 2022-02-02 | [facility] | 1.010 | (missing) | (missing) | | (unavailable | 15:53 | [facility] | | | | + + + +---------+ + + + + | Result panel 1669 | + + + + + +---------+ + + | | 2022-02-02 | [facility] | SMALL | (missing) | (missing) | | (unavailable | 15:53 | [facility] | | | | + + + +---------+ + + + + | Result panel 1670 | + + + + + +-------+ + + | | 2022-02-02 | [facility] | 5.0 | (missing) | (missing) | | (unavailable | 15:53 | [facility] | | | | + + + +-------+ + + + + | Result panel 1671 | + + + + + + + + + | | 2022-02-02 | [facility] | NEGATIVE | (missing) | (missing) | | (unavailable | 15:53 | [facility] | | | | + + + + + + + + + | Result panel 1672 | + + + + + + + + + | | 2022-02-02 | [facility] | NORMAL | (missing) | (missing) | | (unavailable | 15:53 | [facility] | | | | + + + + + + + + + | Result panel 1673 | + + + + + + + + + | | 2022-02-02 | [facility] | NEGATIVE | (missing) | (missing) | | (unavailable | 15:53 | [facility] | | | | + + + + + + + + + | Result panel 1674 | + + + + + + + + + | | 2022-02-02 | [facility] | NEGATIVE | (missing) | (missing) | | (unavailable | 15:53 | [facility] | | | | + + + + + + + + + | Result panel 1675 | + + + + + +-------+ + + | | 2022-02-02 | [facility] | 2-3 | (missing) | (missing) | | (unavailable | 15:53 | [facility] | | | | + + + +-------+ + + + + | Result panel 1676 | + + + + + +-------+ + + | | 2022-02-02 | [facility] | 0-1 | (missing) | (missing) | | (unavailable | 15:53 | [facility] | | | | + + + +-------+ + + + + | Result panel 1677 | + + + + + + + + + | | 2022-02-02 | [facility] | SQUAMOUS 4+ | (missing) | (missing) | | (unavailable | 15:53 | [facility] | | | | + + + + + + + + + | Result panel 1678 | + + + + + + + + + | | 2022-02-02 | [facility] | NONE SEEN | (missing) | (missing) | | (unavailable | 15:53 | [facility] | | | | + + + + + + + + + | Result panel 1679 | + + + + + +------+ + + | | 2022-02-02 | [facility] | 1+ | (missing) | (missing) | | (unavailable | 15:53 | [facility] | | | | + + + +------+ + + + + | Result panel 1680 | + + + + + + + + + | | 2022-02-02 | [facility] | NONE SEEN | (missing) | (missing) | | (unavailable | 15:53 | [facility] | | | | + + + + + + + + + | Result panel 1681 | + + + + + +------+ + + | | 2022-02-02 | [facility] | No | (missing) | (missing) | | (unavailable | 15:53 | [facility] | | | | + + + +------+ + + + + | Result panel 1682 | + + + + + + + + + | | 2022-02-02 | [facility] | CLEAN CATCH | (missing) | (missing) | | (unavailable | 15:53 | [facility] | | | | + + + + + + + + + | Result panel 1683 | + + + + + + + + + | | 2022-02-04 | [facility] | NEGATIVE | (missing) | (missing) | | (unavailable | 09:20 | [facility] | | | | + + + + + + + + + | Result panel 1684 | + + + + + +-------+ + + | | 2022-02-04 | [facility] | 5.4 | (missing) | (missing) | | (unavailable | 09:20 | [facility] | | | | + + + +-------+ + + + + | Result panel 1685 | + + + + + +-------+ + + | | 2022-02-04 | [facility] | 2.6 | (missing) | (missing) | | (unavailable | 09:20 | [facility] | | | | + + + +-------+ + + + + | Result panel 1686 | + + + + + +-------+ + + | | 2022-02-04 | [facility] | 2.8 | (missing) | (missing) | | (unavailable | 09:20 | [facility] | | | | + + + +-------+ + + + + | Result panel 1687 | + + + + + +--------+ + + | | 2022-02-04 | [facility] | 0.93 | (missing) | (missing) | | (unavailable | 09:20 | [facility] | | | | + + + +--------+ + + + + | Result panel 1688 | + + + + + +-------+ + + | | 2022-02-04 | [facility] | 0.4 | (missing) | (missing) | | (unavailable | 09:20 | [facility] | | | | + + + +-------+ + + + + | Result panel 1689 | + + + + + +------+ + + | | 2022-02-04 | [facility] | 22 | (missing) | (missing) | | (unavailable | 09:20 | [facility] | | | | + + + +------+ + + + + | Result panel 1690 | + + + + + +------+ + + | | 2022-02-04 | [facility] | 26 | (missing) | (missing) | | (unavailable | 09:20 | [facility] | | | | + + + +------+ + + + + | Result panel 1691 | + + + + + +------+ + + | | 2022-02-04 | [facility] | 48 | (missing) | (missing) | | (unavailable | 09:20 | [facility] | | | | + + + +------+ + + + + | Result panel 169 | + + + + + +------+ + + | | 2022-02-04 | [facility] | 83 | (missing) | (missing) | | (unavailable | 09:20 | [facility] | | | | + + + +------+ + + + + | Result panel 1693 | + + + + + + + + + | | 2022-02-04 | [facility] | NEGATIVE | (missing) | (missing) | | (unavailable | 09:20 | [facility] | | | | + + + + + + + + + | Result panel 1694 | + + + + + + + + + | | 2022-02-04 | [facility] | NEGATIVE | (missing) | (missing) | | (unavailable | 09:20 | [facility] | | | | + + + + + + + + + | Result panel 1695 | + + + + + +--------+ + + | | 2022-02-04 | [facility] | 12.8 | (missing) | (missing) | | (unavailable | 09:33 | [facility] | | | | + + + +--------+ + + + + | Result panel 1696 | + + + + + +--------+ + + | | 2022-02-04 | [facility] | 0.99 | (missing) | (missing) | | (unavailable | 09:33 | [facility] | | | | + + + +--------+ + + + + | Result panel 1697 | + + + + + + + + + | | 2022-02-04 | [facility] | NEGATIVE | (missing) | (missing) | | (unavailable | 09:44 | [facility] | | | | + + + + + + + + + | Result panel 1698 | + + + + + + + + + | | 2022-02-04 | [facility] | NEGATIVE | (missing) | (missing) | | (unavailable | 09:44 | [facility] | | | | + + + + + + + + + | Result panel 1699 | + + + + + + + + + | | 2022-02-04 | [facility] | NEGATIVE | (missing) | (missing) | | (unavailable | 09:44 | [facility] | | | | + + + + + + + + + | Result panel 1700 | + + + + + + + + + | | 2022-02-04 | [facility] | NEGATIVE | (missing) | (missing) | | (unavailable | 09:44 | [facility] | | | | + + + + + + + + + | Result panel 170 | + + + + + + + + + | | 2022-02-04 | [facility] | NEGATIVE | (missing) | (missing) | | (unavailable | 09:44 | [facility] | | | | + + + + + + + + + | Result panel 170 | + + + + + + + + + | | 2022-02-04 | [facility] | NEGATIVE | (missing) | (missing) | | (unavailable | 09:44 | [facility] | | | | + + + + + + + + + | Result panel 1703 | + + + + + + + + + | | 2022-02-04 | [facility] | NEGATIVE | (missing) | (missing) | | (unavailable | 09:44 | [facility] | | | | + + + + + + + + + | Result panel 1704 | + + + + + + + + + | | 2022-02-04 | [facility] | NEGATIVE | (missing) | (missing) | | (unavailable | 09:44 | [facility] | | | | + + + + + + + + + | Result panel 1705 | + + + + + + + + + | | 2022-02-04 | [facility] | NEGATIVE | (missing) | (missing) | | (unavailable | 09:44 | [facility] | | | | + + + + + + + + + | Result panel 1706 | + + + + + + + + + | | 2022-02-04 | [facility] | NEGATIVE | (missing) | (missing) | | (unavailable | 09:44 | [facility] | | | | + + + + + + + + + | Result panel 1707 | + + + + + + + + + | | 2022-02-04 | [facility] | NEGATIVE | (missing) | (missing) | | (unavailable | 09:44 | [facility] | | | | + + + + + + + + + | Result panel 1708 | + + + + + + + + + | | 2022-02-04 | [facility] | NEGATIVE | (missing) | (missing) | | (unavailable | 09:44 | [facility] | | | | + + + + + + + + + | Result panel 1709 | + + + + + + + + + | | 2022-02-04 | [facility] | NEGATIVE | (missing) | (missing) | | (unavailable | 09:44 | [facility] | | | | + + + + + + + + + | Result panel 1710 | + + + + + + + + + | | 2022-02-04 | [facility] | NEGATIVE | (missing) | (missing) | | (unavailable | 09:44 | [facility] | | | | + + + + + + + + + | Result panel 171 | + + + + + + + + + | | 2022-02-04 | [facility] | NEGATIVE | (missing) | (missing) | | (unavailable | 09:44 | [facility] | | | | + + + + + + + + + | Result panel 171 | + + + + + + + + + | | 2022-02-04 | [facility] | NEGATIVE | (missing) | (missing) | | (unavailable | 09:44 | [facility] | | | | + + + + + + + + + | Result panel 1713 | + + + + + +-----+ + + | | 2022-02-04 | [facility] | A | (missing) | (missing) | | (unavailable | 09:45 | [facility] | | | | + + + +-----+ + + + + | Result panel 1714 | + + + + + + + + + | | 2022-02-04 | [facility] | POSITIVE | (missing) | (missing) | | (unavailable | 09:45 | [facility] | | | | + + + + + + + + + | Result panel 1715 | + + + + + + + + + | | 2022-02-04 | [facility] | NEGATIVE | (missing) | (missing) | | (unavailable | 09:45 | [facility] | | | | + + + + + + + + + | Result panel 1716 | + + + + + + + + + | | 2022-02-04 | [facility] | COMPATIBLE | (missing) | (missing) | | (unavailable | 09:45 | [facility] | | | | + + + + + + + + + | Result panel 1717 | + + + + + + + + + | | 2022-02-04 | [facility] | COMPATIBLE | (missing) | (missing) | | (unavailable | 09:45 | [facility] | | | | + + + + + + + + + | Result panel 1718 | + + + + + + + + + | | 2022-02-04 | [facility] | | (missing) | (missing) | | (unavailable | 09:45 | [facility] | [phone] | | | | ) | | [facility] | 001 | | | + + + + + + + + + | Result panel 1719 | + + + + + + + + + | | 2022-02-04 | [facility] | | (missing) | (missing) | | (unavailable | 09:45 | [facility] | [phone] | | | | ) | | [facility] | 005 | | | + + + + + + + + + | Result panel 1720 | + + + + + + + + + | | 2022-02-04 | [facility] | BLOOD IN | (missing) | (missing) | | (unavailable | 09:45 | [facility] | | [facility] | | | | + + + + + + + + + | Result panel 1721 | + + + + + + + + + | | 2022-02-04 | [facility] | COMPATIBLE | (missing) | (missing) | | (unavailable | 09:45 | [facility] | | | | + + + + + + + + + | Result panel 1722 | + + + + + + + + + | | 2022-02-04 | [facility] | COMPATIBLE | (missing) | (missing) | | (unavailable | 09:45 | [facility] | | | | + + + + + + + + + | Result panel 1723 | + + + + + + + + + | | 2022-02-04 | [facility] | | (missing) | (missing) | | (unavailable | 09:45 | [facility] | [phone] | | | | ) | | [facility] | 001 | | | + + + + + + + + + | Result panel 1724 | + + + + + + + + + | | 2022-02-04 | [facility] | | (missing) | (missing) | | (unavailable | 09:45 | [facility] | [phone] | | | | ) | | [facility] | 005 | | | + + + + + + + + + | Result panel 1725 | + + + + + +-----+ + + | | 2022-02-04 | [facility] | A | (missing) | (missing) | | (unavailable | 09:45 | [facility] | | | | + + + +-----+ + + + + | Result panel 1726 | + + + + + + + + + | | 2022-02-04 | [facility] | POSITIVE | (missing) | (missing) | | (unavailable | 09:45 | [facility] | | | | + + + + + + + + + | Result panel 1727 | + + + + + + + + + | | 2022-02-04 | [facility] | NEGATIVE | (missing) | (missing) | | (unavailable | 09:45 | [facility] | | | | + + + + + + + + + | Result panel 1728 | + + + + + + + + + | | 2022-02-04 | [facility] | COMPATIBLE | (missing) | (missing) | | (unavailable | 09:45 | [facility] | | | | + + + + + + + + + | Result panel 1729 | + + + + + + + + + | | 2022-02-04 | [facility] | COMPATIBLE | (missing) | (missing) | | (unavailable | 09:45 | [facility] | | | | + + + + + + + + + | Result panel 1730 | + + + + + + + + + | | 2022-02-04 | [facility] | | (missing) | (missing) | | (unavailable | 09:45 | [facility] | [phone] | | | | ) | | [facility] | 001 | | | + + + + + + + + + | Result panel 1731 | + + + + + + + + + | | 2022-02-04 | [facility] | | (missing) | (missing) | | (unavailable | 09:45 | [facility] | [phone] | | | | ) | | [facility] | 005 | | | + + + + + + + + + | Result panel 1732 | + + + + + + + + + | | 2022-02-04 | [facility] | BLOOD IN | (missing) | (missing) | | (unavailable | 09:45 | [facility] LAB | | | [facility] ) | | [facility] | | | | + + + + + + + + + | Result panel 1733 | + + + + + +-----+ + + | | 2022-02-04 | [facility] | A | (missing) | (missing) | | (unavailable | 09:45 | [facility] | | | | + + + +-----+ + + + + | Result panel 1734 | + + + + + + + + + | | 2022-02-04 | [facility] | POSITIVE | (missing) | (missing) | | (unavailable | 09:45 | [facility] | | | | + + + + + + + + + | Result panel 1735 | + + + + + + + + + | | 2022-02-04 | [facility] | NEGATIVE | (missing) | (missing) | | (unavailable | 09:45 | [facility] | | | | + + + + + + + + + | Result panel 1736 | + + + + + + + + + | | 2022-02-04 | [facility] | COMPATIBLE | (missing) | (missing) | | (unavailable | 09:45 | [facility] | | | | + + + + + + + + + | Result panel 1737 | + + + + + + + + + | | 2022-02-04 | [facility] | COMPATIBLE | (missing) | (missing) | | (unavailable | 09:45 | [facility] | | | | + + + + + + + + + | Result panel 1738 | + + + + + + + + + | | 2022-02-04 | [facility] | | (missing) | (missing) | | (unavailable | 09:45 | [facility] | [phone] | | | | ) | | [facility] | 001 | | | + + + + + + + + + | Result panel 1739 | + + + + + + + + + | | 2022-02-04 | [facility] | | (missing) | (missing) | | (unavailable | 09:45 | [facility] | [phone] | | | | ) | | [facility] | 005 | | | + + + + + + + + + | Result panel 1740 | + + + + + + + + + | | 2022-02-04 | [facility] | BLOOD IN | (missing) | (missing) | | (unavailable | 09:45 | [facility] | | [facility] | | | | + + + + + + + + + | Result panel 1741 | + + + + + + + + + | | 2022-02-05 | [facility] | SEE COMMENT | (missing) | (missing) | | (unavailable | 05:15 | [facility] | | | | + + + + + + + + + | Result panel 1742 | + + + + + +-------+ + + | | 2022-02-05 | [facility] | 6.3 | (missing) | (missing) | | (unavailable | 05:15 | [facility] | | | | + + + +-------+ + + + + | Result panel 1743 | + + + + + + + + + | | 2022-02-05 | [facility] | SEE COMMENT | (missing) | (missing) | | (unavailable | 05:15 | [facility] | | | | + + + + + + + + + | Result panel 174 | + + + + + +--------+ + + | | 2022-02-05 | [facility] | 2.41 | (missing) | (missing) | | (unavailable | 05:15 | [facility] | | | | + + + +--------+ + + + + | Result panel 1745 | + + + + + +-------+ + + | | 2022-02-05 | [facility] | 7.1 | (missing) | (missing) | | (unavailable | 05:15 | [facility] | | | | + + + +-------+ + + + + | Result panel 1746 | + + + + + +--------+ + + | | 2022-02-05 | [facility] | 21.1 | (missing) | (missing) | | (unavailable | 05:15 | [facility] | | | | + + + +--------+ + + + + | Result panel 1747 | + + + + + +--------+ + + | | 2022-02-05 | [facility] | 87.6 | (missing) | (missing) | | (unavailable | 05:15 | [facility] | | | | + + + +--------+ + + + + | Result panel 1748 | + + + + + +--------+ + + | | 2022-02-05 | [facility] | 29.6 | (missing) | (missing) | | (unavailable | 05:15 | [facility] | | | | + + + +--------+ + + + + | Result panel 1749 | + + + + + +--------+ + + | | 2022-02-05 | [facility] | 33.8 | (missing) | (missing) | | (unavailable | 05:15 | [facility] | | | | + + + +--------+ + + + + | Result panel 1750 | + + + + + +--------+ + + | | 2022-02-05 | [facility] | 14.6 | (missing) | (missing) | | (unavailable | 05:15 | [facility] | | | | + + + +--------+ + + + + | Result panel 1751 | + + + + + +-------+ + + | | 2022-02-05 | [facility] | 172 | (missing) | (missing) | | (unavailable | 05:15 | [facility] | | | | + + + +-------+ + + + + | Result panel 175 | + + + + + +--------+ + + | | 2022-02-05 | [facility] | 67.6 | (missing) | (missing) | | (unavailable | 05:15 | [facility] | | | | + + + +--------+ + + + + | Result panel 1753 | + + + + + +--------+ + + | | 2022-02-05 | [facility] | 21.0 | (missing) | (missing) | | (unavailable | 05:15 | [facility] | | | | + + + +--------+ + + + + | Result panel 1754 | + + + + + +-------+ + + | | 2022-02-05 | [facility] | 9.6 | (missing) | (missing) | | (unavailable | 05:15 | [facility] | | | | + + + +-------+ + + + + | Result panel 1755 | + + + + + +-------+ + + | | 2022-02-05 | [facility] | 0.8 | (missing) | (missing) | | (unavailable | 05:15 | [facility] | | | | + + + +-------+ + + + + | Result panel 1756 | + + + + + +-------+ + + | | 2022-02-05 | [facility] | 1.0 | (missing) | (missing) | | (unavailable | 05:15 | [facility] | | | | + + + +-------+ + + + + | Result panel 1757 | + + + + + +-------+---------+ + | | 2022-02-05 | [facility] | 192 | mg/dL | (missing) | | (unavailable | 05:15 | [facility] | | | | + + + +-------+---------+ + + + | Result panel 1758 | + + + + + +------+---------+ + | | 2022-02-05 | [facility] | 11 | mg/dL | (missing) | | (unavailable | 05:15 | [facility] | | | | + + + +------+---------+ + + + | Result panel 1759 | + + + + + +--------+---------+ + | | 2022-02-05 | [facility] | 0.45 | mg/dL | (missing) | | (unavailable | 05:15 | [facility] | | | | + + + +--------+---------+ + + + | Result panel 1760 | + + + + + +-------+ + + | | 2022-02-05 | [facility] | 131 | (missing) | (missing) | | (unavailable | 05:15 | [facility] | | | | + + + +-------+ + + + + | Result panel 176 | + + + + + +---------+ + + | | 2022-02-05 | [facility] | 24.44 | (missing) | (missing) | | (unavailable | 05:15 | [facility] | | | | + + + +---------+ + + + + | Result panel 176 | + + + + + +-------+ + + | | 2022-02-05 | [facility] | 134 | (missing) | (missing) | | (unavailable | 05:15 | [facility] | | | | + + + +-------+ + + + + | Result panel 1763 | + + + + + +-------+ + + | | 2022-02-05 | [facility] | 3.1 | (missing) | (missing) | | (unavailable | 05:15 | [facility] | | | | + + + +-------+ + + + + | Result panel 1764 | + + + + + +-------+ + + | | 2022-02-05 | [facility] | 102 | (missing) | (missing) | | (unavailable | 05:15 | [facility] | | | | + + + +-------+ + + + + | Result panel 1765 | + + + + + +------+ + + | | 2022-02-05 | [facility] | 23 | (missing) | (missing) | | (unavailable | 05:15 | [facility] | | | | + + + +------+ + + + + | Result panel 1766 | + + + + + +--------+ + + | | 2022-02-05 | [facility] | 12.1 | (missing) | (missing) | | (unavailable | 05:15 | [facility] | | | | + + + +--------+ + + + + | Result panel 1767 | + + + + + +-------+---------+ + | | 2022-02-05 | [facility] | 7.1 | mg/dL | (missing) | | (unavailable | 05:15 | [facility] | | | | + + + +-------+---------+ + + + | Result panel 1768 | + + + + + + + + + | | 2022-02-05 | [facility] | SEE COMMENT | (missing) | (missing) | | (unavailable | 05:15 | [facility] | | | | + + + + + + + + + | Result panel 1769 | + + + + + +-------+ + + | | 2022-02-05 | [facility] | 177 | (missing) | (missing) | | (unavailable | 14:13 | [facility] | | | | + + + +-------+ + + + + | Result panel 1770 | + + + + + +-------+ + + | | 2022-02-05 | [facility] | 177 | (missing) | (missing) | | (unavailable | 14:13 | [facility] | | | | + + + +-------+ + + + + | Result panel 177 | + + + + + +-------+ + + | | 2022-02-05 | [facility] | 177 | (missing) | (missing) | | (unavailable | 14:13 | [facility] | | | | + + + +-------+ + + + + | Result panel 177 | + + + + + +-------+ + + | | 2022-02-06 | [facility] | 240 | (missing) | (missing) | | (unavailable | 11:54 | [facility] | | | | + + + +-------+ + + + + | Result panel 1773 | + + + + + +-------+ + + | | 2022-02-08 | [facility] | 4-6 | (missing) | (missing) | | (unavailable | 17:50 | [facility] | | | | + + + +-------+ + + + + | Result panel 1774 | + + + + + +-------+ + + | | 2022-02-08 | [facility] | 0-1 | (missing) | (missing) | | (unavailable | 17:50 | [facility] | | | | + + + +-------+ + + + + | Result panel 177 | + + + + + + + + + | | 2022-02-08 | [facility] | SQUAMOUS 3+ | (missing) | (missing) | | (unavailable | 17:50 | [facility] | | | | + + + + + + + + + | Result panel 177 | + + + + + + + + + | | 2022-02-08 | [facility] | NONE SEEN | (missing) | (missing) | | (unavailable | 17:50 | [facility] | | | | + + + + + + + + + | Result panel 177 | + + + + + +------+ + + | | 2022-02-08 | [facility] | 1+ | (missing) | (missing) | | (unavailable | 17:50 | [facility] | | | | + + + +------+ + + + + | Result panel 1778 | + + + + + + + + + | | 2022-02-08 | [facility] | NONE SEEN | (missing) | (missing) | | (unavailable | 17:50 | [facility] | | | | + + + + + + + + + | Result panel 1779 | + + + + + +-------+ + + | | 2022-02-08 | [facility] | Yes | (missing) | (missing) | | (unavailable | 17:50 | [facility] | | | | + + + +-------+ + + + + | Result panel 178 | + + + + + + + + + | | 2022-02-08 | [facility] | POSITIVE | (missing) | (missing) | | (unavailable | 17:50 | [facility] | | | | + + + + + + + + + | Result panel 178 | + + + + + + + + + | | 2022-02-08 | [facility] | NEGATIVE | (missing) | (missing) | | (unavailable | 17:50 | [facility] | | | | + + + + + + + + + | Result panel 1782 | + + + + + + + + + | | 2022-02-08 | [facility] | NEGATIVE | (missing) | (missing) | | (unavailable | 17:50 | [facility] | | | | + + + + + + + + + | Result panel 1783 | + + + + + + + + + | | 2022-02-08 | [facility] | NEGATIVE | (missing) | (missing) | | (unavailable | 17:50 | [facility] | | | | + + + + + + + + + | Result panel 178 | + + + + + + + + + | | 2022-02-08 | [facility] | NEGATIVE | (missing) | (missing) | | (unavailable | 17:50 | [facility] | | | | + + + + + + + + + | Result panel 1785 | + + + + + + + + + | | 2022-02-08 | [facility] | POSITIVE | (missing) | (missing) | | (unavailable | 17:50 | [facility] | | | | + + + + + + + + + | Result panel 178 | + + + + + + + + + | | 2022-02-08 | [facility] | NEGATIVE | (missing) | (missing) | | (unavailable | 17:50 | [facility] | | | | + + + + + + + + + | Result panel 178 | + + + + + + + + + | | 2022-02-08 | [facility] | NEGATIVE | (missing) | (missing) | | (unavailable | 17:50 | [facility] | | | | + + + + + + + + + | Result panel 1787 | + + + + + + + + + | | 2022-02-08 | [facility] | NEGATIVE | (missing) | (missing) | | (unavailable | 17:50 | [facility] | | | | + + + + + + + + + | Result panel 178 | + + + + + + + + + | | 2022-02-08 | [facility] | NEGATIVE | (missing) | (missing) | | (unavailable | 17:50 | [facility] | | | | + + + + + + + + + | Result panel 1790 | + + + + + + + + + | | 2022-02-08 | [facility] | POSITIVE | (missing) | (missing) | | (unavailable | 17:50 | [facility] | | | | + + + + + + + + + | Result panel 1791 | + + + + + + + + + | | 2022-02-08 | [facility] | NEGATIVE | (missing) | (missing) | | (unavailable | 17:50 | [facility] | | | | + + + + + + + + + | Result panel 179 | + + + + + + + + + | | 2022-02-08 | [facility] | NEGATIVE | (missing) | (missing) | | (unavailable | 17:50 | [facility] | | | | + + + + + + + + + | Result panel 179 | + + + + + +-------+ + + | | 2022-02-08 | [facility] | Yes | (missing) | (missing) | | (unavailable | 17:50 | [facility] | | | | + + + +-------+ + + + + | Result panel 1794 | + + + + + + + + + | | 2022-02-08 | [facility] | YELLOW | (missing) | (missing) | | (unavailable | 17:50 | [facility] | | | | + + + + + + + + + | Result panel 1795 | + + + + + +---------+ + + | | 2022-02-08 | [facility] | CLEAR | (missing) | (missing) | | (unavailable | 17:50 | [facility] | | | | + + + +---------+ + + + + | Result panel 179 | + + + + + + + + + | | 2022-02-08 | [facility] | >=1000 | (missing) | (missing) | | (unavailable | 17:50 [facility] | | | + + + + + + + + + | Result panel 179 | + + + + + + + + + | | 2022-02-08 | [facility] | NEGATIVE | (missing) | (missing) | | (unavailable | 17:50 | [facility] | | | | + + + + + + + + + | Result panel 179 | + + + + + +---------+ + + | | 2022-02-08 | [facility] | TRACE | (missing) | (missing) | | (unavailable | 17:50 | [facility] | | | + + + +---------+ + + + + | Result panel 1799 | + + + + + +---------+ + + | | 2022-02-08 | [facility] | 1.010 | (missing) | (missing) | | (unavailable | 17:50 | [facility] | | | + + + +---------+ + + + + | Result panel 1800 | + + + + + +---------+ + + | | 2022-02-08 | [facility] | LARGE | (missing) | (missing) | | (unavailable | 17:50 | [facility] | | | | + + + +---------+ + + + + | Result panel 1801 | + + + + + +-------+ + + | | 2022-02-08 | [facility] | 7.0 | (missing) | (missing) | | (unavailable | 17:50 | [facility] | | | | + + + +-------+ + + + + | Result panel 1802 | + + + + + + + + + | | 2022-02-08 | [facility] | NEGATIVE | (missing) | (missing) | | (unavailable | 17:50 | [facility] | | | + + + + + + + + + | Result panel 1803 | + + + + + + + + + | | 2022-02-08 | [facility] | NORMAL | (missing) | (missing) | | (unavailable | 17:50 | [facility] | | | + + + + + + + + + | Result panel 1804 | + + + + + + + + + | | 2022-02-08 | [facility] | NEGATIVE | (missing) | (missing) | | (unavailable | 17:50 | [facility] | | | + + + + + + + + + | Result panel 1805 | + + + + + + + + + | | 2022-02-08 | [facility] | NEGATIVE | (missing) | (missing) | | (unavailable | 17:50 | [facility] | | | + + + + + + + + + | Result panel 1806 | + + + + + +-------+ + + | | 2022-02-08 | [facility] | 4-6 | (missing) | (missing) | | (unavailable | 17:50 | [facility] | | | | + + + +-------+ + + + + | Result panel 1807 | + + + + + +-------+ + + | | 2022-02-08 | [facility] | 0-1 | (missing) | (missing) | | (unavailable | 17:50 | [facility] | | | | + + + +-------+ + + + + | Result panel 1808 | + + + + + + + + + | | 2022-02-08 | [facility] | SQUAMOUS 3+ | (missing) | (missing) | | (unavailable | 17:50 | [facility] | | | | + + + + + + + + + | Result panel 1809 | + + + + + + + + + | | 2022-02-08 | [facility] | NONE SEEN | (missing) | (missing) | | (unavailable | 17:50 | [facility] | | | | + + + + + + + + + | Result panel 1810 | + + + + + +------+ + + | | 2022-02-08 | [facility] | 1+ | (missing) | (missing) | | (unavailable | 17:50 | [facility] | | | + + + +------+ + + + + | Result panel 181 | + + + + + + + + + | | 2022-02-08 | [facility] | NONE SEEN | (missing) | (missing) | | (unavailable | 17:50 | [facility] | | | + + + + + + + + + | Result panel 181 | + + + + + +-------+ + + | | 2022-02-08 | [facility] | Yes | (missing) | (missing) | | (unavailable | 17:50 | [facility] | | | + + + +-------+ + + + + | Result panel 1813 | + + + + + + + + + | | 2022-02-08 | [facility] | CLEAN CATCH | (missing) | (missing) | | (unavailable | 17:50 | [facility] | | | + + + + + + + + + | Result panel 1814 | + + + + + + + + + | | 2022-02-08 | [facility] | NEGATIVE | (missing) | (missing) | | (unavailable | 17:50 | [facility] | | | + + + + + + + + + | Result panel 1815 | + + + + + + + + + | | 2022-02-08 | [facility] | POSITIVE | (missing) | (missing) | | (unavailable | 17:50 | [facility] | | | + + + + + + + + + | Result panel 1816 | + + + + + + + + + | | 2022-02-08 | [facility] | NEGATIVE | (missing) | (missing) | | (unavailable | 17:50 | [facility] | | | + + + + + + + + + | Result panel 1817 | + + + + + + + + + | | 2022-02-08 | [facility] | NEGATIVE | (missing) | (missing) | | (unavailable | 17:50 | [facility] | | | + + + + + + + + + | Result panel 1818 | + + + + + + + + + | | 2022-02-08 | [facility] | NEGATIVE | (missing) | (missing) | | (unavailable | 17:50 | [facility] | | | + + + + + + + + + | Result panel 1819 | + + + + + + + + + | | 2022-02-08 | [facility] | NEGATIVE | (missing) | (missing) | | (unavailable | 17:50 | [facility] | | | + + + + + + + + + | Result panel 1820 | + + + + + + + + + | | 2022-02-08 | [facility] | POSITIVE | (missing) | (missing) | | (unavailable | 17:50 | [facility] | | | + + + + + + + + + | Result panel 1821 | + + + + + + + + + | | 2022-02-08 | [facility] | NEGATIVE | (missing) | (missing) | | (unavailable | 17:50 | [facility] | | | + + + + + + + + + | Result panel 182 | + + + + + + + + + | | 2022-02-08 | [facility] | NEGATIVE | (missing) | (missing) | | (unavailable | 17:50 [facility] | | | | + + + + + + + + + | Result panel 1823 | + + + + + + + + + | | 2022-02-08 | [facility] | NEGATIVE | (missing) | (missing) | | (unavailable | 17:50 | [facility] | | | + + + + + + + + + | Result panel 182 | + + + + + + + + + | | 2022-02-08 | [facility] | NEGATIVE | (missing) | (missing) | | (unavailable | 17:50 | [facility] | | | + + + + + + + + + | Result panel 182 | + + + + + + + + + | | 2022-02-08 | [facility] | POSITIVE | (missing) | (missing) | | (unavailable | 17:50 | [facility] | | | + + + + + + + + + | Result panel 1826 | + + + + + + + + + | | 2022-02-08 | [facility] | NEGATIVE | (missing) | (missing) | | (unavailable | 17:50 [facility] | | | + + + + + + + + + | Result panel 1827 | + + + + + + + + + | | 2022-02-08 | [facility] | NEGATIVE | (missing) | (missing) | | (unavailable | 17:50 [facility] | | | + + + + + + + + + | Result panel 182 | + + + + + +--------+ + + | | 2022-02-08 | [facility] | 69.7 | (missing) | (missing) | | (unavailable | 18:25 | [facility] | | | | + + + +--------+ + + + + | Result panel 1829 | + + + + + +--------+ + + | | 2022-02-08 | [facility] | 21.7 | (missing) | (missing) | | (unavailable | 18:25 | [facility] | | | | + + + +--------+ + + + + | Result panel 1830 | + + + + + +-------+ + + | | 2022-02-08 | [facility] | 6.9 | (missing) | (missing) | | (unavailable | 18:25 | [facility] | | | + + + +-------+ + + + + | Result panel 1831 | + + + + + +-------+ + + | | 2022-02-08 | [facility] | 1.2 | (missing) | (missing) | | (unavailable | 18:25 | [facility] | | | + + + +-------+ + + + + | Result panel 1832 | + + + + + +-------+ + + | | 2022-02-08 | [facility] | 0.5 | (missing) | (missing) | | (unavailable | 18:25 [facility] | | | + + + +-------+ + + + + | Result panel 1833 | + + + + + +--------+ + + | | 2022-02-08 | [facility] | 11.7 | (missing) | (missing) | | (unavailable | 18:25 [facility] | | | + + + +--------+ + + + + | Result panel 1834 | + + + + + +--------+ + + | | 2022-02-08 | [facility] | 0.87 | (missing) | (missing) | | (unavailable | 18:25 [facility] | | | + + + +--------+ + + + + | Result panel 1835 | + + + + + +-------+ + + | | 2022-02-08 | [facility] | 3.2 | (missing) | (missing) | | (unavailable | 18:25 [facility] | | | + + + +-------+ + + + + | Result panel 1836 | + + + + + +-------+ + + | | 2022-02-08 | [facility] | 3.2 | (missing) | (missing) | | (unavailable | 18:25 [facility] | | | + + + +-------+ + + + + | Result panel 1837 | + + + + + +--------+ + + | | 2022-02-08 | [facility] | 1.00 | (missing) | (missing) | | (unavailable | 18:25 | [facility] | | | + + + +--------+ + + + + | Result panel 1838 | + + + + + +------+ + + | | 2022-02-08 | [facility] | 87 | (missing) | (missing) | | (unavailable | 18:25 | [facility] | | | + + + +------+ + + + + | Result panel 1839 | + + + + + +--------+ + + | | 2022-02-08 | [facility] | 11.7 | (missing) | (missing) | | (unavailable | 18:25 | [facility] | | | + + + +--------+ + + + + | Result panel 1840 | + + + + + +--------+ + + | | 2022-02-08 | [facility] | 0.87 | (missing) | (missing) | | (unavailable | 18:25 [facility] | | | + + + +--------+ + + + + | Result panel 1841 | + + + + + +-------+ + + | | 2022-02-08 | [facility] | 6.3 | (missing) | (missing) | | (unavailable | 18:25 [facility] | | | + + + +-------+ + + + + | Result panel 1842 | + + + + + +--------+ + + | | 2022-02-08 | [facility] | 3.27 | (missing) | (missing) | | (unavailable | 18:25 [facility] | | | + + + +--------+ + + + + | Result panel 184 | + + + + + +-------+ + + | | 2022-02-08 | [facility] | 9.7 | (missing) | (missing) | | (unavailable | 18:25 [facility] | | | + + + +-------+ + + + + | Result panel 184 | + + + + + +--------+ + + | | 2022-02-08 | [facility] | 28.6 | (missing) | (missing) | | (unavailable | 18:25 [facility] | | | + + + +--------+ + + + + | Result panel 1845 | + + + + + +--------+ + + | | 2022-02-08 | [facility] | 87.4 | (missing) | (missing) | | (unavailable | 18:25 [facility] | | | + + + +--------+ + + + + | Result panel 184 | + + + + + +--------+ + + | | 2022-02-08 | [facility] | 29.6 | (missing) | (missing) | | (unavailable | 18:25 [facility] | | | + + + +--------+ + + + + | Result panel 1846 | + + + + + +--------+ + + | | 2022-02-08 | [facility] | 33.9 | (missing) | (missing) | | (unavailable | 18:25 [facility] | | | + + + +--------+ + + + + | Result panel 184 | + + + + + +--------+ + + | | 2022-02-08 | [facility] | 14.9 | (missing) | (missing) | | (unavailable | 18:25 [facility] | | | + + + +--------+ + + + + | Result panel 1849 | + + + + + +-------+ + + | | 2022-02-08 | [facility] | 283 | (missing) | (missing) | | (unavailable | 18:25 [facility] | | | + + + +-------+ + + + + | Result panel 1850 | + + + + + +--------+ + + | | 2022-02-08 | [facility] | 69.7 | (missing) | (missing) | | (unavailable | 18:25 [facility] | | | + + + +--------+ + + + + | Result panel 185 | + + + + + +--------+ + + | | 2022-02-08 | [facility] | 21.7 | (missing) | (missing) | | (unavailable | 18:25 [facility] | | | + + + +--------+ + + + + | Result panel 185 | + + + + + +-------+ + + | | 2022-02-08 | [facility] | 6.9 | (missing) | (missing) | | (unavailable | 18:25 [facility] | | | | + + + +-------+ + + + + | Result panel 1853 | + + + + + +-------+ + + | | 2022-02-08 | [facility] | 1.2 | (missing) | (missing) | | (unavailable | 18:25 [facility] | | | + + + +-------+ + + + + | Result panel 1854 | + + + + + +-------+ + + | | 2022-02-08 | [facility] | 0.5 | (missing) | (missing) | | (unavailable | 18:25 [facility] | | | + + + +-------+ + + + + | Result panel 1855 | + + + + + +--------+ + + | | 2022-02-08 | [facility] | 11.7 | (missing) | (missing) | | (unavailable | 18:25 [facility] | | | + + + +--------+ + + + + | Result panel 1856 | + + + + + +--------+ + + | | 2022-02-08 | [facility] | 0.87 | (missing) | (missing) | | (unavailable | 18:25 [facility] | | | + + + +--------+ + + + + | Result panel 185 | + + + + + +-------+---------+ + | | 2022-02-08 | [facility] | 286 | mg/dL | (missing) | | (unavailable | 18:25 [facility] | | | | + + + +-------+---------+ + + + | Result panel 1858 | + + + + + +------+---------+ + | | 2022-02-08 | [facility] | 11 | mg/dL | (missing) | | (unavailable | 18:25 [facility] | | | | + + + +------+---------+ + + + | Result panel 1859 | + + + + + +--------+---------+ + | | 2022-02-08 | [facility] | 0.59 | mg/dL | (missing) | | (unavailable | 18:25 [facility] | | | | + + + +--------+---------+ + + + | Result panel 1860 | + + + + + +-------+ + + | | 2022-02-08 | [facility] | 123 | (missing) | (missing) | | (unavailable | 18:25 [facility] | | | + + + +-------+ + + + + | Result panel 1861 | + + + + + +---------+ + + | | 2022-02-08 | [facility] | 18.64 | (missing) | (missing) | | (unavailable | 18:25 [facility] | | | | + + + +---------+ + + + + | Result panel 1862 | + + + + + +-------+ + + | | 2022-02-08 | [facility] | 134 | (missing) | (missing) | | (unavailable | 18:25 [facility] | | | + + + +-------+ + + + + | Result panel 1863 | + + + + + +-------+ + + | | 2022-02-08 | [facility] | 3.5 | (missing) | (missing) | | (unavailable | 18:25 [facility] | | | + + + +-------+ + + + + | Result panel 1864 | + + + + + +------+ + + | | 2022-02-08 | [facility] | 98 | (missing) | (missing) | | (unavailable | 18:25 [facility] | | | + + + +------+ + + + + | Result panel 1865 | + + + + + +------+ + + | | 2022-02-08 | [facility] | 26 | (missing) | (missing) | | (unavailable | 18:25 [facility] | | | + + + +------+ + + + + | Result panel 1866 | + + + + + +--------+ + + | | 2022-02-08 | [facility] | 13.5 | (missing) | (missing) | | (unavailable | 18:25 [facility] | | | + + + +--------+ + + + + | Result panel 1867 | + + + + + +-------+---------+ + | | 2022-02-08 | [facility] | 9.0 | mg/dL | (missing) | | (unavailable | 18:25 [facility] | | | | + + + +-------+---------+ + + + | Result panel 1868 | + + + + + +-------+ + + | | 2022-02-08 | [facility] | 6.4 | (missing) | (missing) | | (unavailable | 18:25 [facility] | | | | + + + +-------+ + + + + | Result panel 186 | + + + + + +-------+ + + | | 2022-02-08 | [facility] | 3.2 | (missing) | (missing) | | (unavailable | 18:25 [facility] | | | + + + +-------+ + + + + | Result panel 1870 | + + + + + +-------+ + + | | 2022-02-08 | [facility] | 3.2 | (missing) | (missing) | | (unavailable | 18:25 [facility] | | | + + + +-------+ + + + + | Result panel 1871 | + + + + + +--------+ + + | | 2022-02-08 | [facility] | 1.00 | (missing) | (missing) | | (unavailable | 18:25 [facility] | | | | + + + +--------+ + + + + | Result panel 1872 | + + + + + +-------+ + + | | 2022-02-08 | [facility] | 0.4 | (missing) | (missing) | | (unavailable | 18:25 [facility] | | | + + + +-------+ + + + + | Result panel 1873 | + + + + + +------+ + + | | 2022-02-08 | [facility] | 17 | (missing) | (missing) | | (unavailable | 18:25 [facility] | | | | + + + +------+ + + + + | Result panel 1874 | + + + + + +------+ + + | | 2022-02-08 | [facility] | 31 | (missing) | (missing) | | (unavailable | 18:25 [facility] | | | | + + + +------+ + + + + | Result panel 1875 | + + + + + +------+ + + | | 2022-02-08 | [facility] | 59 | (missing) | (missing) | | (unavailable | 18:25 [facility] | | | | + + + +------+ + + + + | Result panel 1876 | + + + + + +------+ + + | | 2022-02-08 | [facility] | 87 | (missing) | (missing) | | (unavailable | 18:25 [facility] | | | | + + + +------+ + + + + | Result panel 1877 | + + + + + + + + + | | 2022-02-19 | [facility] | YELLOW | (missing) | (missing) | | (unavailable | 09:16 | [facility] | | | | + + + + + + + + + | Result panel 1878 | + + + + + + + + + | | 2022-02-19 | [facility] | SL CLOUDY | (missing) | (missing) | | (unavailable | 09:16 | [facility] | | | | + + + + + + + + + | Result panel 1879 | + + + + + + + + + | | 2022-02-19 | [facility] | >=1000 | (missing) | (missing) | | (unavailable | 09:16 | [facility] | | | | + + + + + + + + + | Result panel 1880 | + + + + + + + + + | | 2022-02-19 | [facility] | NEGATIVE | (missing) | (missing) | | (unavailable | 09:16 | [facility] | | | | + + + + + + + + + | Result panel 1881 | + + + + + + + + + | | 2022-02-19 | [facility] | NEGATIVE | (missing) | (missing) | | (unavailable | 09:16 | [facility] | | | | + + + + + + + + + | Result panel 188 | + + + + + +---------+ + + | | 2022-02-19 | [facility] | 1.010 | (missing) | (missing) | | (unavailable | 09:16 | [facility] | | | | + + + +---------+ + + + + | Result panel 188 | + + + + + + + + + | | 2022-02-19 | [facility] | NEGATIVE | (missing) | (missing) | | (unavailable | 09:16 | [facility] | | | | + + + + + + + + + | Result panel 1884 | + + + + + +-------+ + + | | 2022-02-19 | [facility] | 5.5 | (missing) | (missing) | | (unavailable | 09:16 | [facility] | | | | + + + +-------+ + + + + | Result panel 1885 | + + + + + + + + + | | 2022-02-19 | [facility] | NEGATIVE | (missing) | (missing) | | (unavailable | 09:16 | [facility] | | | | + + + + + + + + + | Result panel 1886 | + + + + + + + + + | | 2022-02-19 | [facility] | NORMAL | (missing) | (missing) | | (unavailable | 09:16 | [facility] | | | | + + + + + + + + + | Result panel 1887 | + + + + + + + + + | | 2022-02-19 | [facility] | NEGATIVE | (missing) | (missing) | | (unavailable | 09:16 | [facility] | | | | + + + + + + + + + | Result panel 1888 | + + + + + + + + + | | 2022-02-19 | [facility] | NEGATIVE | (missing) | (missing) | | (unavailable | 09:16 | [facility] | | | | + + + + + + + + + | Result panel 1889 | + + + + + + + + + | | 2022-02-19 | [facility] | CLEAN CATCH | (missing) | (missing) | | (unavailable | 09:16 | [facility] | | | | + + + + + + + + + | Result panel 1890 | + + + + + + + + + | | 2022-02-19 | [facility] | NEGATIVE | (missing) | (missing) | | (unavailable | 09:16 | [facility] | | | | + + + + + + + + + | Result panel 1891 | + + + + + + + + + | | 2022-02-19 | [facility] | NEGATIVE | (missing) | (missing) | | (unavailable | 09:16 | [facility] | | | | + + + + + + + + + | Result panel 1892 | + + + + + +-------+ + + | | 2022-02-19 | [facility] | 7.4 | (missing) | (missing) | | (unavailable | 09:47 | [facility] | | | | + + + +-------+ + + + + | Result panel 1893 | + + + + + +--------+ + + | | 2022-02-19 | [facility] | 4.37 | (missing) | (missing) | | (unavailable | 09:47 | [facility] | | | | + + + +--------+ + + + + | Result panel 1894 | + + + + + +--------+ + + | | 2022-02-19 | [facility] | 11.9 | (missing) | (missing) | | (unavailable | 09:47 | [facility] | | | | + + + +--------+ + + + + | Result panel 1895 | + + + + + +--------+ + + | | 2022-02-19 | [facility] | 36.0 | (missing) | (missing) | | (unavailable | 09:47 | [facility] | | | | + + + +--------+ + + + + | Result panel 1896 | + + + + + +--------+ + + | | 2022-02-19 | [facility] | 82.3 | (missing) | (missing) | | (unavailable | 09:47 | [facility] | | | | + + + +--------+ + + + + | Result panel 189 | + + + + + +--------+ + + | | 2022-02-19 | [facility] | 27.2 | (missing) | (missing) | | (unavailable | 09:47 | [facility] | | | | + + + +--------+ + + + + | Result panel 1898 | + + + + + +--------+ + + | | 2022-02-19 | [facility] | 33.1 | (missing) | (missing) | | (unavailable | 09:47 | [facility] | | | | + + + +--------+ + + + + | Result panel 189 | + + + + + +--------+ + + | | 2022-02-19 | [facility] | 15.7 | (missing) | (missing) | | (unavailable | 09:47 | [facility] | | | | + + + +--------+ + + + + | Result panel 1900 | + + + + + +-------+ + + | | 2022-02-19 | [facility] | 240 | (missing) | (missing) | | (unavailable | 09:47 | [facility] | | | | + + + +-------+ + + + + | Result panel 190 | + + + + + +------+ + + | | 2022-02-19 | [facility] | 76 | (missing) | (missing) | | (unavailable | 09:47 | [facility] | | | | + + + +------+ + + + + | Result panel 190 | + + + + + +------+ + + | | 2022-02-19 | [facility] | 18 | (missing) | (missing) | | (unavailable | 09:47 | [facility] | | | | + + + +------+ + + + + | Result panel 190 | + + + + + +-----+ + + | | 2022-02-19 | [facility] | 4 | (missing) | (missing) | | (unavailable | 09:47 | [facility] | | | | + + + +-----+ + + + + | Result panel 190 | + + + + + +-----+ + + | | 2022-02-19 | [facility] | 1 | (missing) | (missing) | | (unavailable | 09:47 | [facility] | | | | + + + +-----+ + + + + | Result panel 190 | + + + + + +-----+ + + | | 2022-02-19 | [facility] | 1 | (missing) | (missing) | | (unavailable | 09:47 | [facility] | | | | + + + +-----+ + + + + | Result panel 190 | + + + + + + + + + | | 2022-02-19 | [facility] | PRESENT | (missing) | (missing) | | (unavailable | 09:47 | [facility] | | | | + + + + + + + + + | Result panel 190 | + + + + + +-------+---------+ + | | 2022-02-19 | [facility] | 492 | mg/dL | (missing) | | (unavailable | 09:47 | [facility] | | | | + + + +-------+---------+ + + + | Result panel 190 | + + + + + +------+---------+ + | | 2022-02-19 | [facility] | 23 | mg/dL | (missing) | | (unavailable | 09:47 | [facility] | | | | + + + +------+---------+ + + + | Result panel 1908 | + + + + + +--------+---------+ + | | 2022-02-19 | [facility] | 0.75 | mg/dL | (missing) | | (unavailable | 09:47 | [facility] | | | | + + + +--------+---------+ + + + | Result panel 1909 | + + + + + +-------+ + + | | 2022-02-19 | [facility] | 108 | (missing) | (missing) | | (unavailable | 09:47 | [facility] | | | | + + + +-------+ + + + + | Result panel 191 | + + + + + +---------+ + + | | 2022-02-19 | [facility] | 30.66 | (missing) | (missing) | | (unavailable | 09:47 | [facility] | | | | + + + +---------+ + + + + | Result panel 191 | + + + + + +-------+ + + | | 2022-02-19 | [facility] | 123 | (missing) | (missing) | | (unavailable | 09:47 | [facility] | | | | + + + +-------+ + + + + | Result panel 1913 | + + + + + +-------+ + + | | 2022-02-19 | [facility] | 4.4 | (missing) | (missing) | | (unavailable | 09:47 | [facility] | | | | + + + +-------+ + + + + | Result panel 1914 | + + + + + +------+ + + | | 2022-02-19 | [facility] | 91 | (missing) | (missing) | | (unavailable | 09:47 | [facility] | | | | + + + +------+ + + + + | Result panel 191 | + + + + + +------+ + + | | 2022-02-19 | [facility] | 18 | (missing) | (missing) | | (unavailable | 09:47 | [facility] | | | | + + + +------+ + + + + | Result panel 191 | + + + + + +--------+ + + | | 2022-02-19 | [facility] | 18.4 | (missing) | (missing) | | (unavailable | 09:47 | [facility] | | | | + + + +--------+ + + + + | Result panel 1917 | + + + + + +-------+---------+ + | | 2022-02-19 | [facility] | 9.2 | mg/dL | (missing) | | (unavailable | 09:47 | [facility] | | | | + + + +-------+---------+ + + + | Result panel 191 | + + + + + +-------+ + + | | 2022-02-19 | [facility] | 7.9 | (missing) | (missing) | | (unavailable | 09:47 | [facility] | | | | + + + +-------+ + + + + | Result panel 1919 | + + + + + +-------+ + + | | 2022-02-19 | [facility] | 0.6 | (missing) | (missing) | | (unavailable | 09:47 | [facility] | | | | + + + +-------+ + + + + | Result panel 1920 | + + + + + +------+ + + | | 2022-02-19 | [facility] | 16 | (missing) | (missing) | | (unavailable | 09:47 | [facility] | | | + + + +------+ + + + + | Result panel 192 | + + + + + +------+ + + | | 2022-02-19 | [facility] | 30 | (missing) | (missing) | | (unavailable | 09:47 | [facility] | | | + + + +------+ + + + + | Result panel 1922 | + + + + + +------+ + + | | 2022-02-19 | [facility] | 83 | (missing) | (missing) | | (unavailable | 09:47 | [facility] | | | + + + +------+ + + + + | Result panel 1923 | + + + + + +------+ + + | | 2022-02-19 | [facility] | 76 | (missing) | (missing) | | (unavailable | 09:47 | [facility] | | | + + + +------+ + + + + | Result panel 1924 | + + + + + +------+ + + | | 2022-02-19 | [facility] | 18 | (missing) | (missing) | | (unavailable | 09:47 | [facility] | | | + + + +------+ + + + + | Result panel 1925 | + + + + + +-----+ + + | | 2022-02-19 | [facility] | 4 | (missing) | (missing) | | (unavailable | 09:47 | [facility] | | | + + + +-----+ + + + + | Result panel 1926 | + + + + + +-----+ + + | | 2022-02-19 | [facility] | 1 | (missing) | (missing) | | (unavailable | 09:47 | [facility] | | | + + + +-----+ + + + + | Result panel 192 | + + + + + +-----+ + + | | 2022-02-19 | [facility] | 1 | (missing) | (missing) | | (unavailable | 09:47 | [facility] | | | + + + +-----+ + + + + | Result panel 1928 | + + + + + + + + + | | 2022-02-19 | [facility] | PRESENT | (missing) | (missing) | | (unavailable | 09:47 | [facility] | | | + + + + + + + + + | Result panel 192 | + + + + + +-------+ + + | | 2022-02-28 | [facility] | 7.0 | (missing) | (missing) | | (unavailable | 06:26 | [facility] | | | + + + +-------+ + + + + | Result panel 1930 | + + + + + + + + + | | 2022-02-28 | [facility] | (missing) | (missing) | (missing) | | (unavailable | 06:26 | [facility] | | | + + + + + + + + + | Result panel 193 | + + + + + +--------+ + + | | 2022-02-28 | [facility] | 4.32 | (missing) | (missing) | | (unavailable | 06:26 | [facility] | | | | + + + +--------+ + + + + | Result panel 193 | + + + + + +--------+ + + | | 2022-02-28 | [facility] | 11.1 | (missing) | (missing) | | (unavailable | 06:26 | [facility] | | | | + + + +--------+ + + + + | Result panel 1933 | + + + + + +--------+ + + | | 2022-02-28 | [facility] | 34.6 | (missing) | (missing) | | (unavailable | 06:26 | [facility] | | | | + + + +--------+ + + + + | Result panel 193 | + + + + + +--------+ + + | | 2022-02-28 | [facility] | 79.9 | (missing) | (missing) | | (unavailable | 06:26 | [facility] | | | + + + +--------+ + + + + | Result panel 193 | + + + + + +--------+ + + | | 2022-02-28 | [facility] | 25.7 | (missing) | (missing) | | (unavailable | 06:26 | [facility] | | | + + + +--------+ + + + + | Result panel 193 | + + + + + +--------+ + + | | 2022-02-28 | [facility] | 32.1 | (missing) | (missing) | | (unavailable | 06:26 | [facility] | | | + + + +--------+ + + + + | Result panel 193 | + + + + + +--------+ + + | | 2022-02-28 | [facility] | 16.7 | (missing) | (missing) | | (unavailable | 06:26 | [facility] | | | | + + + +--------+ + + + + | Result panel 1937 | + + + + + +-------+ + + | | 2022-02-28 | [facility] | 285 | (missing) | (missing) | | (unavailable | 06:26 | [facility] | | | + + + +-------+ + + + + | Result panel 1938 | + + + + + +--------+ + + | | 2022-02-28 | [facility] | 63.9 | (missing) | (missing) | | (unavailable | 06:26 | [facility] | | | | + + + +--------+ + + + + | Result panel 1939 | + + + + + +--------+ + + | | 2022-02-28 | [facility] | 17.0 | (missing) | (missing) | | (unavailable | 06:26 | [facility] | | | | + + + +--------+ + + + + | Result panel 194 | + + + + + +--------+ + + | | 2022-02-28 | [facility] | 17.5 | (missing) | (missing) | | (unavailable | 06:26 | [facility] | | | | + + + +--------+ + + + + | Result panel 1941 | + + + + + +-------+ + + | | 2022-02-28 | [facility] | 1.6 | (missing) | (missing) | | (unavailable | :26 | [facility] | | | | + + + +-------+ + + + + | Result panel 1942 | + + + + + +-------+ + + | | 2022-02-28 | [facility] | 0.0 | (missing) | (missing) | | (unavailable | 06:26 | [facility] | | | + + + +-------+ + + + + | Result panel 194 | + + + + + +-------+---------+ + | | 2022-02-28 | [facility] | 487 | mg/dL | (missing) | | (unavailable | 06:26 | [facility] | | | + + + +-------+---------+ + + + | Result panel 194 | + + + + + +------+---------+ + | | 2022-02-28 | [facility] | 13 | mg/dL | (missing) | | (unavailable | 06:26 | [facility] | | | | + + + +------+---------+ + + + | Result panel 1945 | + + + + + +--------+---------+ + | | 2022-02-28 | [facility] | 0.71 | mg/dL | (missing) | | (unavailable | 06:26 | [facility] | | | | + + + +--------+---------+ + + + | Result panel 1946 | + + + + + +-------+ + + | | 2022-02-28 | [facility] | 116 | (missing) | (missing) | | (unavailable | 06:26 | [facility] | | | | + + + +-------+ + + + + | Result panel 1947 | + + + + + +---------+ + + | | 2022-02-28 | [facility] | 18.30 | (missing) | (missing) | | (unavailable | 06:26 | [facility] | | | | + + + +---------+ + + + + | Result panel 194 | + + + + + +-------+ + + | | 2022-02-28 | [facility] | 129 | (missing) | (missing) | | (unavailable | 06:26 | [facility] | | | | + + + +-------+ + + + + | Result panel 1950 | + + + + + +-------+ + + | | 2022-02-28 | [facility] | 3.8 | (missing) | (missing) | | (unavailable | 06:26 | [facility] | | | | + + + +-------+ + + + + | Result panel 1951 | + + + + + +------+ + + | | 2022-02-28 | [facility] | 92 | (missing) | (missing) | | (unavailable | 06:26 | [facility] | | | | + + + +------+ + + + + | Result panel 1951 | + + + + + +------+ + + | | 2022-02-28 | [facility] | 24 | (missing) | (missing) | | (unavailable | 06:26 | [facility] | | | | + + + +------+ + + + + | Result panel 1952 | + + + + + +--------+ + + | | 2022-02-28 | [facility] | 16.8 | (missing) | (missing) | | (unavailable | 06:26 | [facility] | | | | + + + +--------+ + + + + | Result panel 1953 | + + + + + +-------+---------+ + | | 2022-02-28 | [facility] | 8.8 | mg/dL | (missing) | | (unavailable | :26 | [facility] | | | | + + + +-------+---------+ + + + | Result panel 1954 | + + + + + +-------+ + + | | 2022-02-28 | [facility] | 7.4 | (missing) | (missing) | | (unavailable | 06:26 | [facility] | | | | + + + +-------+ + + + + | Result panel 1955 | + + + + + +-------+ + + | | 2022-02-28 | [facility] | 3.6 | (missing) | (missing) | | (unavailable | 06:26 | [facility] | | | | + + + +-------+ + + + + | Result panel 1956 | + + + + + +-------+ + + | | 2022-02-28 | [facility] | 3.8 | (missing) | (missing) | | (unavailable | 06:26 | [facility] | | | | + + + +-------+ + + + + | Result panel 1957 | + + + + + +--------+ + + | | 2022-02-28 | [facility] | 0.95 | (missing) | (missing) | | (unavailable | 06:26 | [facility] | | | + + + +--------+ + + + + | Result panel 1959 | + + + + + +-------+ + + | | 2022-02-28 | [facility] | 0.6 | (missing) | (missing) | | (unavailable | 06:26 | [facility] | | | + + + +-------+ + + + + | Result panel 1960 | + + + + + +------+ + + | | 2022-02-28 | [facility] | 19 | (missing) | (missing) | | (unavailable | 06:26 | [facility] | | | | + + + +------+ + + + + | Result panel 1960 | + + + + + +------+ + + | | 2022-02-28 | [facility] | 29 | (missing) | (missing) | | (unavailable | 06:26 | [facility] | | | | + + + +------+ + + + + | Result panel 1961 | + + + + + +------+ + + | | 2022-02-28 | [facility] | 82 | (missing) | (missing) | | (unavailable | 06:26 | [facility] | | | | + + + +------+ + + + + | Result panel 1963 | + + + + + +------+ + + | | 2022-02-28 | [facility] | 32 | (missing) | (missing) | | (unavailable | 06:26 | [facility] | | | | + + + +------+ + + + + | Result panel 1964 | + + + + + +-------+ + + | | 2022-02-28 | [facility] | 127 | (missing) | (missing) | | (unavailable | 06:26 | [facility] | | | + + + +-------+ + + + + | Result panel 1965 | + + + + + + + + + | | 2022-02-28 | [facility] | NEGATIVE | (missing) | (missing) | | (unavailable | : | [facility] | | | | + + + + + + + + + | Result panel 1966 | + + + + + +-----+ + + | | 2022-02-28 | [facility] | A | (missing) | (missing) | | (unavailable | 06:26 | [facility] | | | | + + + +-----+ + + + + | Result panel 1967 | + + + + + + + + + | | 2022-02-28 | [facility] | POSITIVE | (missing) | (missing) | | (unavailable | 06:26 | [facility] | | | | + + + + + + + + + | Result panel 1968 | + + + + + + + + + | | 2022-02-28 | [facility] | NEGATIVE | (missing) | (missing) | | (unavailable | 06:26 | [facility] | | | | + + + + + + + + + | Result panel 1969 | + + + + + + + + + | | 2022-02-28 | [facility] | BLOOD IN | (missing) | (missing) | | (unavailable | 06:26 | [facility] | | | | + + + + + + + + + | Result panel 1970 | + + + + + +--------+ + + | | 2022-02-28 | [facility] | 7.38 | (missing) | (missing) | | (unavailable | 07:33 | [facility] | | | | + + + +--------+ + + + + | Result panel 1971 | + + + + + +-------+---------+ + | | 2022-02-28 | [facility] | 284 | mg/dL | (missing) | | (unavailable | 07:33 | [facility] | | | | + + + +-------+---------+ + + + | Result panel 1972 | + + + + + +------+ + + | | 2022-02-28 | [facility] | 28 | (missing) | (missing) | | (unavailable | 07:33 | [facility] | | | | + + + +------+ + + + + | Result panel 1973 | + + + + + + + + + | | 2022-02-28 | [facility] | 256.00 | (missing) | (missing) | | (unavailable | 07:33 | [facility] | | | | + + + + + + + + + | Result panel 1974 | + + + + + +--------+ + + | | 2022-02-28 | [facility] | 10.1 | (missing) | (missing) | | (unavailable | 07:33 | [facility] | | | | + + + +--------+ + + + + | Result panel 1975 | + + + + + +--------+ + + | | 2022-02-28 | [facility] | 1893 | (missing) | (missing) | | (unavailable | 07:33 | [facility] | | | | + + + +--------+ + + + + | Result panel 1976 | + + + + + +-----+ + + | | 2022-02-28 | [facility] | 4 | (missing) | (missing) | | (unavailable | 07:33 | [facility] | | | | + + + +-----+ + + + + | Result panel 1977 | + + + + + + + + + | | 2022-02-28 | [facility] | YELLOW | (missing) | (missing) | | (unavailable | 08:12 | [facility] | | | | + + + + + + + + + | Result panel 1978 | + + + + + +---------+ + + | | 2022-02-28 | [facility] | CLEAR | (missing) | (missing) | | (unavailable | 08:12 | [facility] | | | | + + + +---------+ + + + + | Result panel 1979 | + + + + + + + + + | | 2022-02-28 | [facility] | >=1000 | (missing) | (missing) | | (unavailable | 08:12 | [facility] | | | | + + + + + + + + + | Result panel 1980 | + + + + + + + + + | | 2022-02-28 | [facility] | NEGATIVE | (missing) | (missing) | | (unavailable | 08:12 | [facility] | | | | + + + + + + + + + | Result panel 1981 | + + + + + +---------+ + + | | 2022-02-28 | [facility] | SMALL | (missing) | (missing) | | (unavailable | 08:12 | [facility] | | | | + + + +---------+ + + + + | Result panel 1982 | + + + + + +---------+ + + | | 2022-02-28 | [facility] | 1.010 | (missing) | (missing) | | (unavailable | 08:12 | [facility] | | | | + + + +---------+ + + + + | Result panel 1983 | + + + + + + + + + | | 2022-02-28 | [facility] | TRACE-I | (missing) | (missing) | | (unavailable | 08:12 | [facility] | | | | + + + + + + + + + | Result panel 1984 | + + + + + +-------+ + + | | 2022-02-28 | [facility] | 6.0 | (missing) | (missing) | | (unavailable | 08:12 | [facility] | | | | + + + +-------+ + + + + | Result panel 1985 | + + + + + + + + + | | 2022-02-28 | [facility] | NEGATIVE | (missing) | (missing) | | (unavailable | 08:12 | [facility] | | | | + + + + + + + + + | Result panel 1986 | + + + + + + + + + | | 2022-02-28 | [facility] | NORMAL | (missing) | (missing) | | (unavailable | 08:12 | [facility] | | | | + + + + + + + + + | Result panel 1987 | + + + + + + + + + | | 2022-02-28 | [facility] | NEGATIVE | (missing) | (missing) | | (unavailable | 08:12 | [facility] | | | | + + + + + + + + + | Result panel 1988 | + + + + + + + + + | | 2022-02-28 | [facility] | NEGATIVE | (missing) | (missing) | | (unavailable | 08:12 | [facility] | | | | + + + + + + + + + | Result panel 1989 | + + + + + +-------+ + + | | 2022-02-28 | [facility] | 2-3 | (missing) | (missing) | | (unavailable | 08:12 | [facility] | | | | + + + +-------+ + + + + | Result panel 1989 | + + + + + +-------+ + + | | 2022-02-28 | [facility] | 0-1 | (missing) | (missing) | | (unavailable | 08:12 | [facility] | | | | + + + +-------+ + + + + | Result panel 1990 | + + + + + + + + + | | 2022-02-28 | [facility] | SQUAMOUS 1+ | (missing) | (missing) | | (unavailable | 08:12 | [facility] | | | | + + + + + + + + + | Result panel 1992 | + + + + + + + + + | | 2022-02-28 | [facility] | NONE SEEN | (missing) | (missing) | | (unavailable | 08:12 | [facility] | | | | + + + + + + + + + | Result panel 1993 | + + + + + +--------+ + + | | 2022-02-28 | [facility] | RARE | (missing) | (missing) | | (unavailable | 08:12 | [facility] | | | | + + + +--------+ + + + + | Result panel 1994 | + + + + + + + + + | | 2022-02-28 | [facility] | NONE SEEN | (missing) | (missing) | | (unavailable | 08:12 | [facility] | | | | + + + + + + + + + | Result panel 1995 | + + + + + + + + + | | 2022-02-28 | [facility] | CLEAN CATCH | (missing) | (missing) | | (unavailable | 08:12 | [facility] | | | | + + + + + + + + + | Result panel 1995 | + + + + + + + + + | | 2022-02-28 | [facility] | NEGATIVE | (missing) | (missing) | | (unavailable | 08:12 | [facility] | | | | + + + + + + + + + | Result panel 1996 | + + + + + + + + + | | 2022-02-28 | [facility] | NEGATIVE | (missing) | (missing) | | (unavailable | 08:12 | [facility] | | | | + + + + + + + + + | Result panel 1998 | + + + + + + + + + | | 2022-02-28 | [facility] | NEGATIVE | (missing) | (missing) | | (unavailable | 08:12 | [facility] | | | | + + + + + + + + + | Result panel 1999 | + + + + + + + + + | | 2022-02-28 | [facility] | NEGATIVE | (missing) | (missing) | | (unavailable | 08:12 | [facility] | | | | + + + + + + + + + | Result panel 2000 | + + + + + + + + + | | 2022-02-28 | [facility] | NEGATIVE | (missing) | (missing) | | (unavailable | 08:12 | [facility] | | | | + + + + + + + + + | Result panel 2000 | + + + + + + + + + | | 2022-02-28 | [facility] | NEGATIVE | (missing) | (missing) | | (unavailable | 08:12 | [facility] | | | | + + + + + + + + + | Result panel 2001 | + + + + + + + + + | | 2022-02-28 | [facility] | NEGATIVE | (missing) | (missing) | | (unavailable | 08:12 | [facility] | | | | + + + + + + + + + | Result panel 2002 | + + + + + + + + + | | 2022-02-28 | [facility] | POSITIVE | (missing) | (missing) | | (unavailable | 08:12 | [facility] | | | | + + + + + + + + + | Result panel 2003 | + + + + + + + + + | | 2022-02-28 | [facility] | NEGATIVE | (missing) | (missing) | | (unavailable | 08:12 | [facility] | | | | + + + + + + + + + | Result panel 2004 | + + + + + + + + + | | 2022-02-28 | [facility] | NEGATIVE | (missing) | (missing) | | (unavailable | 08:12 | [facility] | | | | + + + + + + + + + | Result panel 2005 | + + + + + + + + + | | 2022-02-28 | [facility] | NEGATIVE | (missing) | (missing) | | (unavailable | 08:12 | [facility] | | | | + + + + + + + + + | Result panel 2006 | + + + + + + + + + | | 2022-02-28 | [facility] | NEGATIVE | (missing) | (missing) | | (unavailable | 08:12 | [facility] | | | | + + + + + + + + + | Result panel 2007 | + + + + + + + + + | | 2022-02-28 | [facility] | NEGATIVE | (missing) | (missing) | | (unavailable | 08:12 | [facility] | | | | + + + + + + + + + | Result panel 2008 | + + + + + + + + + | | 2022-02-28 | [facility] | NEGATIVE | (missing) | (missing) | | (unavailable | 08:46 | [facility] | | | | + + + + + + + + + | Result panel 2009 | + + + + + + + + + | | 2022-04-12 | [facility] | YELLOW | (missing) | (missing) | | (unavailable | 11:04:08 | [facility] | | | | + + + + + + + + + | Result panel 2010 | + + + + + + + + + | | 2022-04-12 | [facility] | CLOUDY | (missing) | (missing) | | (unavailable | 11:04:08 | [facility] | | | | + + + + + + + + + | Result panel 2011 | + + + + + + + + + | | 2022-04-12 | [facility] | >=1000 | (missing) | (missing) | | (unavailable | 11:04:08 | [facility] | | | | + + + + + + + + + | Result panel 2012 | + + + + + + + + + | | 2022-04-12 | [facility] | NEGATIVE | (missing) | (missing) | | (unavailable | 11:04:08 | [facility] | | | | + + + + + + + + + | Result panel 2013 | + + + + + +---------+ + + | | 2022-04-12 | [facility] | TRACE | (missing) | (missing) | | (unavailable | 11::08 | [facility] | | | | + + + +---------+ + + + + | Result panel 2014 | + + + + + +---------+ + + | | 2022-04-12 | [facility] | 1.010 | (missing) | (missing) | | (unavailable | 11::08 | [facility] | | | | + + + +---------+ + + + + | Result panel 2015 | + + + + + + + + + | | 2022-04-12 | [facility] | TRACE-L | (missing) | (missing) | | (unavailable | 11:04:08 | [facility] | | | | + + + + + + + + + | Result panel 2017 | + + + + + +-------+ + + | | 2022-04-12 | [facility] | 5.5 | (missing) | (missing) | | (unavailable | 11:04:08 | [facility] | | | | + + + +-------+ + + + + | Result panel 2018 | + + + + + + + + + | | 2022-04-12 | [facility] | NEGATIVE | (missing) | (missing) | | (unavailable | 11:04:08 | [facility] | | | | + + + + + + + + + | Result panel 2019 | + + + + + + + + + | | 2022-04-12 | [facility] | NORMAL | (missing) | (missing) | | (unavailable | 11:04:08 | [facility] | | | | + + + + + + + + + | Result panel 2020 | + + + + + + + + + | | 2022-04-12 | [facility] | NEGATIVE | (missing) | (missing) | | (unavailable | 11:04:08 | [facility] | | | | + + + + + + + + + | Result panel 2020 | + + + + + +---------+ + + | | 2022-04-12 | [facility] | TRACE | (missing) | (missing) | | (unavailable | 11:04:08 | [facility] | | | | + + + +---------+ + + + + | Result panel 2021 | + + + + + +-------+ + + | | 2022-04-12 | [facility] | 2-3 | (missing) | (missing) | | (unavailable | 11:04:08 | [facility] | | | | + + + +-------+ + + + + | Result panel 2022 | + + + + + +---------+ + + | | 2022-04-12 | [facility] | 12-20 | (missing) | (missing) | | (unavailable | 11:04:08 | [facility] | | | | + + + +---------+ + + + + | Result panel 2023 | + + + + + + + + + | | 2022-04-12 | [facility] | SQUAMOUS 1+ | (missing) | (missing) | | (unavailable | 11:04:08 | [facility] | | | | + + + + + + + + + | Result panel 2024 | + + + + + + + + + | | 2022-04-12 | [facility] | NONE SEEN | (missing) | (missing) | | (unavailable | 11:04:08 | [facility] | | | | + + + + + + + + + | Result panel 2025 | + + + + + +------+ + + | | 2022-04-12 | [facility] | 2+ | (missing) | (missing) | | (unavailable | 11:04:08 | [facility] | | | | + + + +------+ + + + + | Result panel 2026 | + + + + + + + + + | | 2022-04-12 | [facility] | NONE SEEN | (missing) | (missing) | | (unavailable | 11:04:08 | [facility] | | | | + + + + + + + + + | Result panel 2027 | + + + + + +-------+ + + | | 2022-04-12 | [facility] | Yes | (missing) | (missing) | | (unavailable | 11:04:08 | [facility] | | | | + + + +-------+ + + + + | Result panel 2028 | + + + + + + + + + | | 2022-04-12 | [facility] | CLEAN CATCH | (missing) | (missing) | | (unavailable | 11:04:08 | [facility] | | | | + + + + + + + + + | Result panel 2030 | + + + + + +-------+ + + | | 2022-04-12 | [facility] | 2-3 | (missing) | (missing) | | (unavailable | 11:04:08 | [facility] | | | | + + + +-------+ + + + + | Result panel 2030 | + + + + + +---------+ + + | | 2022-04-12 | [facility] | 12-20 | (missing) | (missing) | | (unavailable | 11:04:08 | [facility] | | | | + + + +---------+ + + + + | Result panel 2031 | + + + + + + + + + | | 2022-04-12 | [facility] | SQUAMOUS 1+ | (missing) | (missing) | | (unavailable | 11:04:08 | [facility] | | | | + + + + + + + + + | Result panel 2032 | + + + + + + + + + | | 2022-04-12 | [facility] | NONE SEEN | (missing) | (missing) | | (unavailable | 11:04:08 | [facility] | | | | + + + + + + + + + | Result panel 2033 | + + + + + +------+ + + | | 2022-04-12 | [facility] | 2+ | (missing) | (missing) | | (unavailable | 11:04:08 | [facility] | | | | + + + +------+ + + + + | Result panel 2034 | + + + + + + + + + | | 2022-04-12 | [facility] | NONE SEEN | (missing) | (missing) | | (unavailable | 11:04:08 | [facility] | | | | + + + + + + + + + | Result panel 2035 | + + + + + +-------+ + + | | 2022-04-12 | [facility] | Yes | (missing) | (missing) | | (unavailable | 11:04:08 | [facility] | | | | + + + +-------+ + + + + | Result panel 2037 | + + + + + + + + + | | 2022-04-12 | [facility] | CLEAN CATCH | (missing) | (missing) | | (unavailable | 11:04:08 | [facility] | | | | + + + + + + + + + | Result panel 2037 | + + + + + +-------+---------+ + | | 2022-04-12 | [facility] | 596 | mg/dL | (missing) | | (unavailable | 11:15:08 | [facility] | | | | + + + +-------+---------+ + + + | Result panel 2038 | + + + + + +------+---------+ + | | 2022-04-12 | [facility] | 16 | mg/dL | (missing) | | (unavailable | 11:15:08 | [facility] | | | | + + + +------+---------+ + + + | Result panel 2039 | + + + + + +--------+---------+ + | | 2022-04-12 | [facility] | 0.63 | mg/dL | (missing) | | (unavailable | 11:15:08 | [facility] | | | | + + + +--------+---------+ + + + | Result panel 204 | + + + + + +-------+ + + | | 2022-04-12 | [facility] | 121 | (missing) | (missing) | | (unavailable | 11:15:08 | [facility] | | | | + + + +-------+ + + + + | Result panel 2041 | + + + + + +---------+ + + | | 2022-04-12 | [facility] | 25.39 | (missing) | (missing) | | (unavailable | 11:15:08 | [facility] | | | | + + + +---------+ + + + + | Result panel 204 | + + + + + +-------+ + + | | 2022-04-12 | [facility] | 118 | (missing) | (missing) | | (unavailable | 11:15:08 | [facility] | | | | + + + +-------+ + + + + | Result panel 2043 | + + + + + +-------+ + + | | 2022-04-12 | [facility] | 3.9 | (missing) | (missing) | | (unavailable | 11:15:08 | [facility] | | | | + + + +-------+ + + + + | Result panel 204 | + + + + + +------+ + + | | 2022-04-12 | [facility] | 84 | (missing) | (missing) | | (unavailable | 11:15:08 | [facility] | | | | + + + +------+ + + + + | Result panel 2045 | + + + + + +------+ + + | | 2022-04-12 | [facility] | 14 | (missing) | (missing) | | (unavailable | 11:15:08 [facility] | | | | + + + +------+ + + + + | Result panel 2046 | + + + + + +--------+ + + | | 2022-04-12 | [facility] | 23.9 | (missing) | (missing) | | (unavailable | 11:15:08 [facility] | | | + + + +--------+ + + + + | Result panel 2047 | + + + + + +-------+---------+ + | | 2022-04-12 | [facility] | 8.5 | mg/dL | (missing) | | (unavailable | 11:15:08 | [facility] | | | | + + + +-------+---------+ + + + | Result panel 2048 | + + + + + +-------+---------+ + | | 2022-04-12 | [facility] | 1.8 | mg/dL | (missing) | | (unavailable | 11:15:08 [facility] | | | | + + + +-------+---------+ + + + | Result panel 2049 | + + + + + +-------+ + + | | 2022-04-12 | [facility] | 7.7 | (missing) | (missing) | | (unavailable | 11:15:08 [facility] | | | + + + +-------+ + + + + | Result panel 2050 | + + + + + +-------+ + + | | 2022-04-12 | [facility] | 2.1 | (missing) | (missing) | | (unavailable | 11:15:08 [facility] | | | + + + +-------+ + + + + | Result panel 2051 | + + + + + +-------+ + + | | 2022-04-12 | [facility] | 5.6 | (missing) | (missing) | | (unavailable | 11:15:08 [facility] | | | + + + +-------+ + + + + | Result panel 205 | + + + + + +--------+ + + | | 2022-04-12 | [facility] | 0.38 | (missing) | (missing) | | (unavailable | 11:15:08 [facility] | | | + + + +--------+ + + + + | Result panel 2053 | + + + + + +-------+ + + | | 2022-04-12 | [facility] | 0.6 | (missing) | (missing) | | (unavailable | 11:15:08 [facility] | | | + + + +-------+ + + + + | Result panel 2054 | + + + + + +------+ + + | | 2022-04-12 | [facility] | 82 | (missing) | (missing) | | (unavailable | 11:15:08 | [facility] | | | + + + +------+ + + + + | Result panel 2055 | + + + + + +------+ + + | | 2022-04-12 | [facility] | 27 | (missing) | (missing) | | (unavailable | 11::08 | [facility] | | | | + + + +------+ + + + + | Result panel 2056 | + + + + + +-------+ + + | | 2022-04-12 | [facility] | 115 | (missing) | (missing) | | (unavailable | 11:15:08 | [facility] | | | | + + + +-------+ + + + + | Result panel 2057 | + + + + + +-------+ + + | | 2022-04-12 | [facility] | 201 | (missing) | (missing) | | (unavailable | 11:15:08 [facility] | | | + + + +-------+ + + + + | Result panel 2058 | + + + + + +---------+ + + | | 2022-04-12 | [facility] | 175.0 | (missing) | (missing) | | (unavailable | 11:15:08 | [facility] | | | | + + + +---------+ + + + + | Result panel 2059 | + + + + + +-----+ + + | | 2022-04-12 | [facility] | 8 | (missing) | (missing) | | (unavailable | 11:15:08 | [facility] | | | | + + + +-----+ + + + + | Result panel 2060 | + + + + + + + + + | | 2022-04-12 | [facility] | NEGATIVE | (missing) | (missing) | | (unavailable | 11:15:08 | [facility] | | | | + + + + + + + + + | Result panel 2061 | + + + + + +-------+---------+ + | | 2022-04-12 | [facility] | 1.8 | mg/dL | (missing) | | (unavailable | 11:15:08 [facility] | | | | + + + +-------+---------+ + + + | Result panel 2062 | + + + + + +---------+ + + | | 2022-04-12 | [facility] | 175.0 | (missing) | (missing) | | (unavailable | 11:15:08 | [facility] | | | | + + + +---------+ + + + + | Result panel 2063 | + + + + + +-----+ + + | | 2022-04-12 | [facility] | 8 | (missing) | (missing) | | (unavailable | 11:15:08 | [facility] | | | | + + + +-----+ + + + + | Result panel 2064 | + + + + + + + + + | | 2022-04-12 | [facility] | NEGATIVE | (missing) | (missing) | | (unavailable | 11::08 | [facility] | | | | + + + + + + + + + | Result panel 2065 | + + + + + +--------+ + + | | 2022-04-12 | [facility] | 11.6 | (missing) | (missing) | | (unavailable | 11:19:08 | [facility] | | | + + + +--------+ + + + + | Result panel 2066 | + + + + + +--------+ + + | | 2022-04-12 | [facility] | 5.23 | (missing) | (missing) | | (unavailable | 11:19:08 | [facility] | | | + + + +--------+ + + + + | Result panel 2067 | + + + + + +--------+ + + | | 2022-04-12 | [facility] | 13.0 | (missing) | (missing) | | (unavailable | 11:19:08 [facility] | | | + + + +--------+ + + + + | Result panel 2068 | + + + + + +--------+ + + | | 2022-04-12 | [facility] | 38.6 | (missing) | (missing) | | (unavailable | 11:19:08 | [facility] | | | + + + +--------+ + + + + | Result panel 207 | + + + + + +--------+ + + | | 2022-04-12 | [facility] | 73.7 | (missing) | (missing) | | (unavailable | 11:19:08 | [facility] | | | | + + + +--------+ + + + + | Result panel 2070 | + + + + + +--------+ + + | | 2022-04-12 | [facility] | 24.9 | (missing) | (missing) | | (unavailable | 11:19:08 [facility] | | | + + + +--------+ + + + + | Result panel 207 | + + + + + +--------+ + + | | 2022-04-12 | [facility] | 33.7 | (missing) | (missing) | | (unavailable | 11:19:08 | [facility] | | | + + + +--------+ + + + + | Result panel 207 | + + + + + +--------+ + + | | 2022-04-12 | [facility] | 18.8 | (missing) | (missing) | | (unavailable | 11:19:08 | [facility] | | | | + + + +--------+ + + + + | Result panel 2073 | + + + + + +-------+ + + | | 2022-04-12 | [facility] | 327 | (missing) | (missing) | | (unavailable | 11:19:08 | [facility] | | | | + + + +-------+ + + + + | Result panel 2074 | + + + + + +------+ + + | | 2022-04-12 | [facility] | 87 | (missing) | (missing) | | (unavailable | 11:19:08 | [facility] | | | | + + + +------+ + + + + | Result panel 207 | + + + + + +------+ + + | | 2022-04-12 | [facility] | 11 | (missing) | (missing) | | (unavailable | 11:19:08 | [facility] | | | | + + + +------+ + + + + | Result panel 2076 | + + + + + +-----+ + + | | 2022-04-12 | [facility] | 2 | (missing) | (missing) | | (unavailable | 11:19:08 | [facility] | | | + + + +-----+ + + + + | Result panel 2077 | + + + + + +------+ + + | | 2022-04-12 | [facility] | 87 | (missing) | (missing) | | (unavailable | 11:19:08 | [facility] | | | + + + +------+ + + + + | Result panel 2078 | + + + + + +------+ + + | | 2022-04-12 | [facility] | 11 | (missing) | (missing) | | (unavailable | 11:19:08 | [facility] | | | + + + +------+ + + + + | Result panel 208 | + + + + + +-----+ + + | | 2022-04-12 | [facility] | 2 | (missing) | (missing) | | (unavailable | 11:19:08 | [facility] | | | + + + +-----+ + + + + | Result panel 2080 | + + + + + +---------+ + + | | 2022-04-12 | [facility] | 7.430 | (missing) | (missing) | | (unavailable | 11:50:08 | [facility] | | | + + + +---------+ + + + + | Result panel 208 | + + + + + +---------+ + + | | 2022-04-12 | [facility] | 7.430 | (missing) | (missing) | | (unavailable | 11:50:08 | [facility] | | | + + + +---------+ + + + + | Result panel 208 | + + + + + + + + + | | 2022-04-12 | [facility] | NEGATIVE | (missing) | (missing) | | (unavailable | 08 | [facility] | | | | + + + + + + + + + | Result panel 208 | + + + + + + + + + | | 2022-04-12 | [facility] | NEGATIVE | (missing) | (missing) | | (unavailable | ::08 | [facility] | | | | + + + + + + + + + | Result panel 208 | + + + + + + + + + | | 2022-04-12 | [facility] | NEGATIVE | (missing) | (missing) | | (unavailable | 12:03:08 | [facility] | | | | + + + + + + + + + | Result panel 208 | + + + + + + + + + | | 2022-04-12 | [facility] | NEGATIVE | (missing) | (missing) | | (unavailable | 12:03:08 | [facility] | | | | + + + + + + + + + | Result panel 208 | + + + + + + + + + | | 2022-04-12 | [facility] | NEGATIVE | (missing) | (missing) | | (unavailable | 12::08 | [facility] | | | | + + + + + + + + + | Result panel 2087 | + + + + + + + + + | | 2022-04-12 | [facility] | NEGATIVE | (missing) | (missing) | | (unavailable | 12:03:08 | [facility] | | | | + + + + + + + + + | Result panel 2088 | + + + + + + + + + | | 2022-04-12 | [facility] | NEGATIVE | (missing) | (missing) | | (unavailable | 12:03:08 | [facility] | | | | + + + + + + + + + | Result panel 2089 | + + + + + + + + + | | 2022-04-12 | [facility] | NEGATIVE | (missing) | (missing) | | (unavailable | 12:03:08 | [facility] | | | | + + + + + + + + + | Result panel 209 | + + + + + +-------+ + + | | 2022-04-12 | [facility] | 290 | (missing) | (missing) | | (unavailable | 13:58:08 | [facility] | | | | + + + +-------+ + + + + | Result panel 2091 | + + + + + + + + + | | 2022-04-19 | [facility] | YELLOW | (missing) | (missing) | | (unavailable | 13:34:08 | [facility] | | | | + + + + + + + + + | Result panel 209 | + + + + + +---------+ + + | | 2022-04-19 | [facility] | CLEAR | (missing) | (missing) | | (unavailable | 13:34:08 | [facility] | | | | + + + +---------+ + + + + | Result panel 209 | + + + + + + + + + | | 2022-04-19 | [facility] | >=1000 | (missing) | (missing) | | (unavailable | 13:34:08 | [facility] | | | | + + + + + + + + + | Result panel 2095 | + + + + + + + + + | | 2022-04-19 | [facility] | NEGATIVE | (missing) | (missing) | | (unavailable | 13:34:08 | [facility] | | | | + + + + + + + + + | Result panel 209 | + + + + + + + + + | | 2022-04-19 | [facility] | NEGATIVE | (missing) | (missing) | | (unavailable | 13:34:08 [facility] | | | | + + + + + + + + + | Result panel 2096 | + + + + + + + + + | | 2022-04-19 | [facility] | <=1.005 | (missing) | (missing) | | (unavailable | 13:34:08 | [facility] | | | | + + + + + + + + + | Result panel 2097 | + + + + + + + + + | | 2022-04-19 | [facility] | NEGATIVE | (missing) | (missing) | | (unavailable | 13:34:08 | [facility] | | | | + + + + + + + + + | Result panel 209 | + + + + + +-------+ + + | | 2022-04-19 | [facility] | 5.0 | (missing) | (missing) | | (unavailable | 13:34:08 | [facility] | | | | + + + +-------+ + + + + | Result panel 2100 | + + + + + + + + + | | 2022-04-19 | [facility] | NEGATIVE | (missing) | (missing) | | (unavailable | 13:34:08 | [facility] | | | | + + + + + + + + + | Result panel 210 | + + + + + + + + + | | 2022-04-19 | [facility] | NORMAL | (missing) | (missing) | | (unavailable | 13:34:08 | [facility] | | | | + + + + + + + + + | Result panel 210 | + + + + + + + + + | | 2022-04-19 | [facility] | NEGATIVE | (missing) | (missing) | | (unavailable | 13:34:08 | [facility] | | | | + + + + + + + + + | Result panel 2103 | + + + + + + + + + | | 2022-04-19 | [facility] | NEGATIVE | (missing) | (missing) | | (unavailable | 13:34:08 | [facility] | | | | + + + + + + + + + | Result panel 2104 | + + + + + +-------+ + + | | 2022-04-19 | [facility] | 7.5 | (missing) | (missing) | | (unavailable | 15:44:08 [facility] | | | + + + +-------+ + + + + | Result panel 2105 | + + + + + +--------+ + + | | 2022-04-19 | [facility] | 5.54 | (missing) | (missing) | | (unavailable | 15:44:08 [facility] | | | | + + + +--------+ + + + + | Result panel 2106 | + + + + + +--------+ + + | | 2022-04-19 | [facility] | 13.4 | (missing) | (missing) | | (unavailable | 15:44:08 [facility] | | | | + + + +--------+ + + + + | Result panel 210 | + + + + + +--------+ + + | | 2022-04-19 | [facility] | 41.5 | (missing) | (missing) | | (unavailable | 15:44:08 [facility] | | | | + + + +--------+ + + + + | Result panel 2108 | + + + + + +--------+ + + | | 2022-04-19 | [facility] | 74.9 | (missing) | (missing) | | (unavailable | 15:44:08 | [facility] | | | | + + + +--------+ + + + + | Result panel 2109 | + + + + + +--------+ + + | | 2022-04-19 | [facility] | 24.2 | (missing) | (missing) | | (unavailable | 15:44:08 [facility] | | | + + + +--------+ + + + + | Result panel 2110 | + + + + + +--------+ + + | | 2022-04-19 | [facility] | 32.3 | (missing) | (missing) | | (unavailable | 15:44:08 [facility] | | | + + + +--------+ + + + + | Result panel 211 | + + + + + +--------+ + + | | 2022-04-19 | [facility] | 18.5 | (missing) | (missing) | | (unavailable | 15:44:08 | [facility] | | | | + + + +--------+ + + + + | Result panel 2111 | + + + + + +-------+ + + | | 2022-04-19 | [facility] | 330 | (missing) | (missing) | | (unavailable | 15:44:08 | [facility] | | | + + + +-------+ + + + + | Result panel 2112 | + + + + + +--------+ + + | | 2022-04-19 | [facility] | 78.1 | (missing) | (missing) | | (unavailable | 15:44:08 [facility] | | | + + + +--------+ + + + + | Result panel 211 | + + + + + +--------+ + + | | 2022-04-19 | [facility] | 16.5 | (missing) | (missing) | | (unavailable | 15:44:08 [facility] | | | | + + + +--------+ + + + + | Result panel 211 | + + + + + +-------+ + + | | 2022-04-19 | [facility] | 4.2 | (missing) | (missing) | | (unavailable | 15:44:08 [facility] | | | | + + + +-------+ + + + + | Result panel 2115 | + + + + + +-------+ + + | | 2022-04-19 | [facility] | 0.4 | (missing) | (missing) | | (unavailable | 15:44:08 [facility] | | | | + + + +-------+ + + + + | Result panel 2116 | + + + + + +-------+ + + | | 2022-04-19 | [facility] | 0.8 | (missing) | (missing) | | (unavailable | 15:44:08 [facility] | | | | + + + +-------+ + + + + | Result panel 2117 | + + + + + +-------+---------+ + | | 2022-04-19 | [facility] | 605 | mg/dL | (missing) | | (unavailable | 15:44:08 | [facility] | | | | + + + +-------+---------+ + + + | Result panel 2118 | + + + + + +------+---------+ + | | 2022-04-19 | [facility] | 20 | mg/dL | (missing) | | (unavailable | 15:44:08 [facility] | | | | + + + +------+---------+ + + + | Result panel 2119 | + + + + + +--------+---------+ + | | 2022-04-19 | [facility] | 1.20 | mg/dL | (missing) | | (unavailable | 15:44:08 [facility] | | | | + + + +--------+---------+ + + + | Result panel 2120 | + + + + + +------+ + + | | 2022-04-19 | [facility] | 62 | (missing) | (missing) | | (unavailable | 15:44:08 [facility] | | | | + + + +------+ + + + + | Result panel 2121 | + + + + + +---------+ + + | | 2022-04-19 | [facility] | 16.66 | (missing) | (missing) | | (unavailable | 15:44:08 [facility] | | | | + + + +---------+ + + + + | Result panel 212 | + + + + + +-------+ + + | | 2022-04-19 | [facility] | 129 | (missing) | (missing) | | (unavailable | 15:44:08 [facility] | | | | + + + +-------+ + + + + | Result panel 2124 | + + + + + +-------+ + + | | 2022-04-19 | [facility] | 3.8 | (missing) | (missing) | | (unavailable | 15:44:08 [facility] | | | | + + + +-------+ + + + + | Result panel 2125 | + + + + + +------+ + + | | 2022-04-19 | [facility] | 92 | (missing) | (missing) | | (unavailable | 15:44:08 [facility] | | | | + + + +------+ + + + + | Result panel 2126 | + + + + + +------+ + + | | 2022-04-19 | [facility] | 23 | (missing) | (missing) | | (unavailable | 15:44:08 [facility] | | | | + + + +------+ + + + + | Result panel 2127 | + + + + + +--------+ + + | | 2022-04-19 | [facility] | 17.8 | (missing) | (missing) | | (unavailable | 15:44:08 [facility] | | | | + + + +--------+ + + + + | Result panel 2127 | + + + + + +-------+---------+ + | | 2022-04-19 | [facility] | 9.6 | mg/dL | (missing) | | (unavailable | 15:44:08 [facility] | | | | + + + +-------+---------+ + + + | Result panel 212 | + + + + + +-------+ + + | | 2022-04-19 | [facility] | 8.0 | (missing) | (missing) | | (unavailable | 15:44:08 [facility] | | | | + + + +-------+ + + + + | Result panel 2130 | + + + + + +-------+ + + | | 2022-04-19 | [facility] | 3.5 | (missing) | (missing) | | (unavailable | 15:44:08 [facility] | | | | + + + +-------+ + + + + | Result panel 2131 | + + + + + +-------+ + + | | 2022-04-19 | [facility] | 4.5 | (missing) | (missing) | | (unavailable | 15:44:08 [facility] | | | | + + + +-------+ + + + + | Result panel 213 | + + + + + +--------+ + + | | 2022-04-19 | [facility] | 0.78 | (missing) | (missing) | | (unavailable | 15:44:08 [facility] | | | | + + + +--------+ + + + + | Result panel 2133 | + + + + + +-------+ + + | | 2022-04-19 | [facility] | 0.3 | (missing) | (missing) | | (unavailable | 15:44:08 [facility] | | | | + + + +-------+ + + + + | Result panel 2134 | + + + + + +------+ + + | | 2022-04-19 | [facility] | 10 | (missing) | (missing) | | (unavailable | 15:44:08 [facility] | | | | + + + +------+ + + + + | Result panel 2135 | + + + + + +------+ + + | | 2022-04-19 | [facility] | 25 | (missing) | (missing) | | (unavailable | 15:44:08 [facility] | | | | + + + +------+ + + + + | Result panel 213 | + + + + + +------+ + + | | 2022-04-19 | [facility] | 93 | (missing) | (missing) | | (unavailable | 15:44:08 [facility] | | | | + + + +------+ + + + + | Result panel 2137 | + + + + + +-------+ + + | | 2022-04-19 | [facility] | 217 | (missing) | (missing) | | (unavailable | 15:44:08 [facility] | | | | + + + +-------+ + + + + | Result panel 2138 | + + + + + +---------+ + + | | 2022-04-19 | [facility] | > 500 | (missing) | (missing) | | (unavailable | 17:14:08 [facility] | | | | + + + +---------+ + + + + | Result panel 2139 | + + + + + +-------+ + + | | 2022-06-08 | [facility] | 7.5 | (missing) | (missing) | | (unavailable | 07:50:08 [facility] | | | | + + + +-------+ + + + + | Result panel 2140 | + + + + + +--------+ + + | | 2022-06-08 | [facility] | 5.10 | (missing) | (missing) | | (unavailable | 07:50:08 [facility] | | | | + + + +--------+ + + + + | Result panel 2141 | + + + + + +--------+ + + | | 2022-06-08 | [facility] | 13.1 | (missing) | (missing) | | (unavailable | 07:50:08 [facility] | | | | + + + +--------+ + + + + | Result panel 2142 | + + + + + +--------+ + + | | 2022-06-08 | [facility] | 40.3 | (missing) | (missing) | | (unavailable | 07:50:08 [facility] | | | | + + + +--------+ + + + + | Result panel 214 | + + + + + +--------+ + + | | 2022-06-08 | [facility] | 79.0 | (missing) | (missing) | | (unavailable | 07:50:08 [facility] | | | | + + + +--------+ + + + + | Result panel 214 | + + + + + +--------+ + + | | 2022-06-08 | [facility] | 25.7 | (missing) | (missing) | | (unavailable | 07:50:08 [facility] | | | | + + + +--------+ + + + + | Result panel 214 | + + + + + +--------+ + + | | 2022-06-08 | [facility] | 32.5 | (missing) | (missing) | | (unavailable | 07:50:08 [facility] | | | | + + + +--------+ + + + + | Result panel 214 | + + + + + +--------+ + + | | 2022-06-08 | [facility] | 17.4 | (missing) | (missing) | | (unavailable | 07:50:08 [facility] | | | | + + + +--------+ + + + + | Result panel 214 | + + + + + +-------+ + + | | 2022-06-08 | [facility] | 234 | (missing) | (missing) | | (unavailable | 07:50:08 | [facility] | | | | + + + +-------+ + + + + | Result panel 2148 | + + + + + +--------+ + + | | 2022-06-08 | [facility] | 89.6 | (missing) | (missing) | | (unavailable | 07:50:08 | [facility] | | | | + + + +--------+ + + + + | Result panel 214 | + + + + + +-------+ + + | | 2022-06-08 | [facility] | 3.1 | (missing) | (missing) | | (unavailable | 07:50:08 | [facility] | | | | + + + +-------+ + + + + | Result panel 215 | + + + + + +-------+ + + | | 2022-06-08 | [facility] | 6.2 | (missing) | (missing) | | (unavailable | 07:50:08 | [facility] | | | | + + + +-------+ + + + + | Result panel 215 | + + + + + +-------+ + + | | 2022-06-08 | [facility] | 0.1 | (missing) | (missing) | | (unavailable | 07:50:08 | [facility] | | | | + + + +-------+ + + + + | Result panel 2152 | + + + + + +-------+ + + | | 2022-06-08 | [facility] | 1.0 | (missing) | (missing) | | (unavailable | 07:50:08 | [facility] | | | | + + + +-------+ + + + + | Result panel 215 | + + + + + +---------+ + + | | 2022-06-08 | [facility] | 7.405 | (missing) | (missing) | | (unavailable | 07:50:08 | [facility] | | | | + + + +---------+ + + + + | Result panel 215 | + + + + + +-------+---------+ + | | 2022-06-08 | [facility] | 559 | mg/dL | (missing) | | (unavailable | 07:50:08 | [facility] | | | | + + + +-------+---------+ + + + | Result panel 215 | + + + + + +------+---------+ + | | 2022-06-08 | [facility] | 13 | mg/dL | (missing) | | (unavailable | 07:50:08 | [facility] | | | | + + + +------+---------+ + + + | Result panel 215 | + + + + + +--------+---------+ + | | 2022-06-08 | [facility] | 0.78 | mg/dL | (missing) | | (unavailable | 07:50:08 | [facility] | | | | + + + +--------+---------+ + + + | Result panel 215 | + + + + + +-------+ + + | | 2022-06-08 | [facility] | 103 | (missing) | (missing) | | (unavailable | 07:50:08 | [facility] | | | | + + + +-------+ + + + + | Result panel 2158 | + + + + + +---------+ + + | | 2022-06-08 | [facility] | 16.66 | (missing) | (missing) | | (unavailable | 07:50:08 | [facility] | | | | + + + +---------+ + + + + | Result panel 2159 | + + + + + +-------+ + + | | 2022-06-08 | [facility] | 131 | (missing) | (missing) | | (unavailable | 07:50:08 | [facility] | | | | + + + +-------+ + + + + | Result panel 2160 | + + + + + +-------+ + + | | 2022-06-08 | [facility] | 3.9 | (missing) | (missing) | | (unavailable | 07:50:08 | [facility] | | | | + + + +-------+ + + + + | Result panel 2161 | + + + + + +------+ + + | | 2022-06-08 | [facility] | 95 | (missing) | (missing) | | (unavailable | 07:50:08 | [facility] | | | | + + + +------+ + + + + | Result panel 2162 | + + + + + +------+ + + | | 2022-06-08 | [facility] | 22 | (missing) | (missing) | | (unavailable | 07:50:08 | [facility] | | | | + + + +------+ + + + + | Result panel 2163 | + + + + + +--------+ + + | | 2022-06-08 | [facility] | 17.9 | (missing) | (missing) | | (unavailable | 07:50:08 | [facility] | | | | + + + +--------+ + + + + | Result panel 2164 | + + + + + +-------+---------+ + | | 2022-06-08 | [facility] | 9.3 | mg/dL | (missing) | | (unavailable | 07:50:08 | [facility] | | | | + + + +-------+---------+ + + + | Result panel 2165 | + + + + + +-------+ + + | | 2022-06-08 | [facility] | 7.1 | (missing) | (missing) | | (unavailable | 07:50:08 | [facility] | | | | + + + +-------+ + + + + | Result panel 2166 | + + + + + +-------+ + + | | 2022-06-08 | [facility] | 3.0 | (missing) | (missing) | | (unavailable | 07:50:08 | [facility] | | | | + + + +-------+ + + + + | Result panel 2167 | + + + + + +-------+ + + | | 2022-06-08 | [facility] | 4.1 | (missing) | (missing) | | (unavailable | 07:50:08 | [facility] | | | | + + + +-------+ + + + + | Result panel 2168 | + + + + + +--------+ + + | | 2022-06-08 | [facility] | 0.73 | (missing) | (missing) | | (unavailable | 07:50:08 | [facility] | | | + + + +--------+ + + + + | Result panel 2169 | + + + + + +-------+ + + | | 2022-06-08 | [facility] | 0.7 | (missing) | (missing) | | (unavailable | 07:50:08 | [facility] | | | + + + +-------+ + + + + | Result panel 2170 | + + + + + +------+ + + | | 2022-06-08 | [facility] | 35 | (missing) | (missing) | | (unavailable | 07:50:08 | [facility] | | | + + + +------+ + + + + | Result panel 217 | + + + + + +------+ + + | | 2022-06-08 | [facility] | 33 | (missing) | (missing) | | (unavailable | 07:50:08 | [facility] | | | + + + +------+ + + + + | Result panel 217 | + + + + + +------+ + + | | 2022-06-08 | [facility] | 88 | (missing) | (missing) | | (unavailable | 07:50:08 | [facility] | | | + + + +------+ + + + + | Result panel 217 | + + + + + +-------+ + + | | 2022-06-08 | [facility] | 100 | (missing) | (missing) | | (unavailable | 07:50:08 | [facility] | | | + + + +-------+ + + + + | Result panel 2174 | + + + + + +---------+ + + | | 2022-06-08 | [facility] | SMALL | (missing) | (missing) | | (unavailable | 07:50:08 | [facility] | | | + + + +---------+ + + + + | Result panel 2175 | + + + + + +-------+ + + | | 2022-06-08 | [facility] | 335 | (missing) | (missing) | | (unavailable | 10:37:08 | [facility] | | | + + + +-------+ + + + + | Result panel 2176 | + + + + + + + + + | | 2022-06-10 | [facility] | NEGATIVE | (missing) | (missing) | | (unavailable | 16:00:08 | [facility] | | | + + + + + + + + + | Result panel 2177 | + + + + + + + + + | | 2022-06-10 | [facility] | NEGATIVE | (missing) | (missing) | | (unavailable | 16:00:08 | [facility] | | | + + + + + + + + + | Result panel 2178 | + + + + + + + + + | | 2022-06-10 | [facility] | NEGATIVE | (missing) | (missing) | | (unavailable | 16:00:08 | [facility] | | | + + + + + + + + + | Result panel 2179 | + + + + + + + + + | | 2022-06-15 | [facility] | YELLOW | (missing) | (missing) | | (unavailable | 08:06:08 | [facility] | | | | + + + + + + + + + | Result panel 2180 | + + + + + +---------+ + + | | 2022-06-15 | [facility] | CLEAR | (missing) | (missing) | | (unavailable | 08:06:08 | [facility] | | | + + + +---------+ + + + + | Result panel 2181 | + + + + + + + + + | | 2022-06-15 | [facility] | >=1000 | (missing) | (missing) | | (unavailable | 08:06:08 | [facility] | | | + + + + + + + + + | Result panel 2182 | + + + + + + + + + | | 2022-06-15 | [facility] | NEGATIVE | (missing) | (missing) | | (unavailable | 08:06:08 | [facility] | | | + + + + + + + + + | Result panel 2183 | + + + + + +---------+ + + | | 2022-06-15 | [facility] | TRACE | (missing) | (missing) | | (unavailable | 08:06:08 | [facility] | | | | + + + +---------+ + + + + | Result panel 2184 | + + + + + + + + + | | 2022-06-15 | [facility] | <=1.005 | (missing) | (missing) | | (unavailable | 08:06:08 | [facility] | | | + + + + + + + + + | Result panel 2185 | + + + + + + + + + | | 2022-06-15 | [facility] | NEGATIVE | (missing) | (missing) | | (unavailable | 08:06:08 | [facility] | | | + + + + + + + + + | Result panel 2186 | + + + + + +-------+ + + | | 2022-06-15 | [facility] | 5.5 | (missing) | (missing) | | (unavailable | 08:06:08 [facility] | | | + + + +-------+ + + + + | Result panel 2187 | + + + + + + + + + | | 2022-06-15 | [facility] | NEGATIVE | (missing) | (missing) | | (unavailable | 08:06:08 | [facility] | | | + + + + + + + + + | Result panel 2188 | + + + + + + + + + | | 2022-06-15 | [facility] | NORMAL | (missing) | (missing) | | (unavailable | 08:06:08 | [facility] | | | | + + + + + + + + + | Result panel 2189 | + + + + + + + + + | | 2022-06-15 | [facility] | NEGATIVE | (missing) | (missing) | | (unavailable | 08:06:08 | [facility] | | | | + + + + + + + + + | Result panel 2190 | + + + + + + + + + | | 2022-06-15 | [facility] | NEGATIVE | (missing) | (missing) | | (unavailable | 08:06:08 | [facility] | | | | + + + + + + + + + | Result panel 2191 | + + + + + +-------+---------+ + | | 2022-06-15 | [facility] | 1.5 | mg/dL | (missing) | | (unavailable | 08:10:08 | [facility] | | | | + + + +-------+---------+ + + + | Result panel 2192 | + + + + + + + + + | | 2022-06-15 | [facility] | > 16.0 | (missing) | (missing) | | (unavailable | 08:10:08 | [facility] | | | | + + + + + + + + + | Result panel 219 | + + + + + +-------+ + + | | 2022-06-15 | [facility] | 6.9 | (missing) | (missing) | | (unavailable | 08:10:08 [facility] | | | + + + +-------+ + + + + | Result panel 2194 | + + + + + +--------+ + + | | 2022-06-15 | [facility] | 5.56 | (missing) | (missing) | | (unavailable | 08:10:08 [facility] | | | + + + +--------+ + + + + | Result panel 2195 | + + + + + +--------+ + + | | 2022-06-15 | [facility] | 14.5 | (missing) | (missing) | | (unavailable | 08:10:08 [facility] | | | + + + +--------+ + + + + | Result panel 2196 | + + + + + +--------+ + + | | 2022-06-15 | [facility] | 45.4 | (missing) | (missing) | | (unavailable | 08:10:08 [facility] | | | + + + +--------+ + + + + | Result panel 219 | + + + + + +--------+ + + | | 2022-06-15 | [facility] | 81.7 | (missing) | (missing) | | (unavailable | 08:10:08 [facility] | | | + + + +--------+ + + + + | Result panel 2198 | + + + + + +--------+ + + | | 2022-06-15 | [facility] | 26.2 | (missing) | (missing) | | (unavailable | 08:10:08 [facility] | | | + + + +--------+ + + + + | Result panel 219 | + + + + + +--------+ + + | | 2022-06-15 | [facility] | 32.1 | (missing) | (missing) | | (unavailable | 08:10:08 [facility] | | | + + + +--------+ + + + + | Result panel 2200 | + + + + + +--------+ + + | | 2022-06-15 | [facility] | 16.8 | (missing) | (missing) | | (unavailable | 08:10:08 [facility] | | | + + + +--------+ + + + + | Result panel 220 | + + + + + +-------+ + + | | 2022-06-15 | [facility] | 397 | (missing) | (missing) | | (unavailable | 08:10:08 [facility] | | | + + + +-------+ + + + + | Result panel 220 | + + + + + +--------+ + + | | 2022-06-15 | [facility] | 70.6 | (missing) | (missing) | | (unavailable | 08:10:08 [facility] | | | + + + +--------+ + + + + | Result panel 2202 | + + + + + +--------+ + + | | 2022-06-15 | [facility] | 23.4 | (missing) | (missing) | | (unavailable | 08:10:08 [facility] | | | + + + +--------+ + + + + | Result panel 2204 | + + + + + +-------+ + + | | 2022-06-15 | [facility] | 4.6 | (missing) | (missing) | | (unavailable | 08:10:08 [facility] | | | + + + +-------+ + + + + | Result panel 220 | + + + + + +-------+ + + | | 2022-06-15 | [facility] | 0.8 | (missing) | (missing) | | (unavailable | 08:10:08 [facility] | | | + + + +-------+ + + + + | Result panel 2206 | + + + + + +-------+ + + | | 2022-06-15 | [facility] | 0.6 | (missing) | (missing) | | (unavailable | 08:10:08 [facility] | | | + + + +-------+ + + + + | Result panel 2207 | + + + + + +---------+ + + | | 2022-06-15 | [facility] | 7.301 | (missing) | (missing) | | (unavailable | 08:10:08 [facility] | | | + + + +---------+ + + + + | Result panel 2208 | + + + + + +-------+---------+ + | | 2022-06-15 | [facility] | 1.5 | mg/dL | (missing) | | (unavailable | 08:10:08 [facility] | | | + + + +-------+---------+ + + + | Result panel 220 | + + + + + +-------+ + + | | 2022-06-15 | [facility] | 8.1 | (missing) | (missing) | | (unavailable | 08:10:08 [facility] | | | + + + +-------+ + + + + | Result panel 2210 | + + + + + +-------+ + + | | 2022-06-15 | [facility] | 3.4 | (missing) | (missing) | | (unavailable | 08:10:08 [facility] | | | + + + +-------+ + + + + | Result panel 2211 | + + + + + +-------+ + + | | 2022-06-15 | [facility] | 4.7 | (missing) | (missing) | | (unavailable | 08:10:08 [facility] | | | + + + +-------+ + + + + | Result panel 2212 | + + + + + +--------+ + + | | 2022-06-15 | [facility] | 0.72 | (missing) | (missing) | | (unavailable | 08:10:08 [facility] | | | + + + +--------+ + + + + | Result panel 2213 | + + + + + +-------+ + + | | 2022-06-15 | [facility] | 0.4 | (missing) | (missing) | | (unavailable | 08:10:08 [facility] | | | + + + +-------+ + + + + | Result panel 2214 | + + + + + +------+ + + | | 2022-06-15 | [facility] | 28 | (missing) | (missing) | | (unavailable | 08:10:08 [facility] | | | + + + +------+ + + + + | Result panel 2215 | + + + + + +------+ + + | | 2022-06-15 | [facility] | 29 | (missing) | (missing) | | (unavailable | 08:10:08 [facility] | | | + + + +------+ + + + + | Result panel 2216 | + + + + + +-------+ + + | | 2022-06-15 | [facility] | 146 | (missing) | (missing) | | (unavailable | 08:10:08 [facility] | | | + + + +-------+ + + + + | Result panel 2217 | + + + + + +-------+ + + | | 2022-06-15 | [facility] | 296 | (missing) | (missing) | | (unavailable | 08:10:08 [facility] | | | + + + +-------+ + + + + | Result panel 221 | + + + + + +--------+ + + | | 2022-06-15 | [facility] | 17.2 | (missing) | (missing) | | (unavailable | 08:10:08 [facility] | | | + + + +--------+ + + + + | Result panel 221 | + + + + + +---------+ + + | | 2022-06-15 | [facility] | SMALL | (missing) | (missing) | | (unavailable | 08:10:08 [facility] | | | | + + + +---------+ + + + + | Result panel 2220 | + + + + + + + + + | | 2022-06-15 | [facility] | > 16.0 | (missing) | (missing) | | (unavailable | 08:10:08 [facility] | | | | + + + + + + + + + | Result panel 2221 | + + + + + + + + + | | 2022-06-15 | [facility] | NEGATIVE | (missing) | (missing) | | (unavailable | 08:10:08 [facility] | | | | + + + + + + + + + | Result panel 2222 | + + + + + +-------+---------+ + | | 2022-06-15 | [facility] | 1.5 | mg/dL | (missing) | | (unavailable | 08:10:08 [facility] | | | | + + + +-------+---------+ + + + | Result panel 2223 | + + + + + + + + + | | 2022-06-15 | [facility] | > 16.0 | (missing) | (missing) | | (unavailable | 08:10:08 [facility] | | | | + + + + + + + + + | Result panel 2224 | + + + + + +-------+---------+ + | | 2022-06-15 | [facility] | 1.5 | mg/dL | (missing) | | (unavailable | 08:10:08 [facility] | | | | + + + +-------+---------+ + + + | Result panel 2225 | + + + + + + + + + | | 2022-06-15 | [facility] | NEGATIVE | (missing) | (missing) | | (unavailable | 10:07:08 [facility] | | | | + + + + + + + + + | Result panel 2226 | + + + + + + + + + | | 2022-06-15 | [facility] | NEGATIVE | (missing) | (missing) | | (unavailable | 10:07:08 [facility] | | | | + + + + + + + + + | Result panel 2227 | + + + + + + + + + | | 2022-06-15 | [facility] | NEGATIVE | (missing) | (missing) | | (unavailable | 10:07:08 [facility] | | | | + + + + + + + + + | Result panel 2228 | + + + + + + + + + | | 2022-06-15 | [facility] | NEGATIVE | (missing) | (missing) | | (unavailable | 10:07:08 [facility] | | | | + + + + + + + + + | Result panel 2229 | + + + + + +-------+---------+ + | | 2022-06-15 | [facility] | 422 | mg/dL | (missing) | | (unavailable | 16:19:08 [facility] | | | | + + + +-------+---------+ + + + | Result panel 2230 | + + + + + +------+---------+ + | | 2022-06-15 | [facility] | 12 | mg/dL | (missing) | | (unavailable | 16:19:08 [facility] | | | | + + + +------+---------+ + + + | Result panel 2231 | + + + + + +--------+---------+ + | | 2022-06-15 | [facility] | 0.56 | mg/dL | (missing) | | (unavailable | 16:19:08 [facility] | | | | + + + +--------+---------+ + + + | Result panel 2232 | + + + + + +-------+ + + | | 2022-06-15 | [facility] | 124 | (missing) | (missing) | | (unavailable | 16:19:08 [facility] | | | | + + + +-------+ + + + + | Result panel 2233 | + + + + + +---------+ + + | | 2022-06-15 | [facility] | 21.42 | (missing) | (missing) | | (unavailable | 16:19:08 [facility] | | | | + + + +---------+ + + + + | Result panel 2234 | + + + + + +-------+ + + | | 2022-06-15 | [facility] | 133 | (missing) | (missing) | | (unavailable | 16:19:08 [facility] | | | | + + + +-------+ + + + + | Result panel 2235 | + + + + + +-------+ + + | | 2022-06-15 | [facility] | 3.4 | (missing) | (missing) | | (unavailable | 16:19:08 [facility] | | | | + + + +-------+ + + + + | Result panel 223 | + + + + + +------+ + + | | 2022-06-15 | [facility] | 98 | (missing) | (missing) | | (unavailable | 16:19:08 [facility] | | | | + + + +------+ + + + + | Result panel 2237 | + + + + + +------+ + + | | 2022-06-15 | [facility] | 28 | (missing) | (missing) | | (unavailable | 16:19:08 [facility] | | | | + + + +------+ + + + + | Result panel 2238 | + + + + + +--------+ + + | | 2022-06-15 | [facility] | 10.4 | (missing) | (missing) | | (unavailable | 16:19:08 [facility] | | | | + + + +--------+ + + + + | Result panel 2239 | + + + + + +-------+---------+ + | | 2022-06-15 | [facility] | 8.4 | mg/dL | (missing) | | (unavailable | 16:19:08 [facility] | | | | + + + +-------+---------+ + + + | Result panel 2240 | + + + + + +-------+ + + | | 2022-06-16 | [facility] | 270 | (missing) | (missing) | | (unavailable | 11:56:08 [facility] | | | | + + + +-------+ + + + + | Result panel 224 | + + + + + +-------+ + + | | 2022-06-16 | [facility] | 270 | (missing) | (missing) | | (unavailable | 11:56:08 [facility] | | | | + + + +-------+ + + + + | Result panel 2242 | + + + + + + + + + | | 2022-06-19 | [facility] | YELLOW | (missing) | (missing) | | (unavailable | 05:50:08 [facility] | | | | + + + + + + + + + | Result panel 2242 | + + + + + +---------+ + + | | 2022-06-19 | [facility] | CLEAR | (missing) | (missing) | | (unavailable | 05:50:08 [facility] | | | | + + + +---------+ + + + + | Result panel 224 | + + + + + + + + + | | 2022-06-19 | [facility] | >=1000 | (missing) | (missing) | | (unavailable | 05:50:08 [facility] | | | | + + + + + + + + + | Result panel 2245 | + + + + + + + + + | | 2022-06-19 | [facility] | NEGATIVE | (missing) | (missing) | | (unavailable | 05:50:08 [facility] | | | | + + + + + + + + + | Result panel 2246 | + + + + + + + + + | | 2022-06-19 | [facility] | NEGATIVE | (missing) | (missing) | | (unavailable | 05:50:08 [facility] | | | | + + + + + + + + + | Result panel 224 | + + + + + +---------+ + + | | 2022-06-19 | [facility] | 1.010 | (missing) | (missing) | | (unavailable | 05:50:08 [facility] | | | | + + + +---------+ + + + + | Result panel 2248 | + + + + + + + + + | | 2022-06-19 | [facility] | NEGATIVE | (missing) | (missing) | | (unavailable | 05:50:08 [facility] | | | | + + + + + + + + + | Result panel 2249 | + + + + + +-------+ + + | | 2022-06-19 | [facility] | 7.0 | (missing) | (missing) | | (unavailable | 05:50:08 [facility] | | | | + + + +-------+ + + + + | Result panel 2250 | + + + + + + + + + | | 2022-06-19 | [facility] | NEGATIVE | (missing) | (missing) | | (unavailable | 05:50:08 [facility] | | | | + + + + + + + + + | Result panel 225 | + + + + + + + + + | | 2022-06-19 | [facility] | NORMAL | (missing) | (missing) | | (unavailable | 05:50:08 [facility] | | | | + + + + + + + + + | Result panel 225 | + + + + + + + + + | | 2022-06-19 | [facility] | POSITIVE | (missing) | (missing) | | (unavailable | 05:50:08 [facility] | | | | + + + + + + + + + | Result panel 225 | + + + + + + + + + | | 2022-06-19 | [facility] | NEGATIVE | (missing) | (missing) | | (unavailable | 05:50:08 [facility] | | | | + + + + + + + + + | Result panel 2254 | + + + + + +-------+ + + | | 2022-06-19 | [facility] | 0-1 | (missing) | (missing) | | (unavailable | 05:50:08 [facility] | | | | + + + +-------+ + + + + | Result panel 2255 | + + + + + +---------+ + + | | 2022-06-19 | [facility] | 12-20 | (missing) | (missing) | | (unavailable | 05:50:08 [facility] | | | | + + + +---------+ + + + + | Result panel 225 | + + + + + + + + + | | 2022-06-19 | [facility] | SQUAMOUS 3+ | (missing) | (missing) | | (unavailable | 05:50:08 [facility] | | | | + + + + + + + + + | Result panel 225 | + + + + + + + + + | | 2022-06-19 | [facility] | NONE SEEN | (missing) | (missing) | | (unavailable | 05:50:08 [facility] | | | | + + + + + + + + + | Result panel 225 | + + + + + +------+ + + | | 2022-06-19 | [facility] | 3+ | (missing) | (missing) | | (unavailable | 05:50:08 [facility] | | | | + + + +------+ + + + + | Result panel 225 | + + + + + + + + + | | 2022-06-19 | [facility] | NONE SEEN | (missing) | (missing) | | (unavailable | 05:50:08 [facility] | | | | + + + + + + + + + | Result panel 2260 | + + + + + +------+ + + | | 2022-06-19 | [facility] | No | (missing) | (missing) | | (unavailable | 05:50:08 [facility] | | | | + + + +------+ + + + + | Result panel 2261 | + + + + + + + + + | | 2022-06-19 | [facility] | NEGATIVE | (missing) | (missing) | | (unavailable | 05:50:08 [facility] | | | | + + + + + + + + + | Result panel 2261 | + + + + + + + + + | | 2022-06-19 | [facility] | NEGATIVE | (missing) | (missing) | | (unavailable | 05:50:08 [facility] | | | | + + + + + + + + + | Result panel 2262 | + + + + + + + + + | | 2022-06-19 | [facility] | NEGATIVE | (missing) | (missing) | | (unavailable | 05:50:08 [facility] | | | | + + + + + + + + + | Result panel 2264 | + + + + + + + + + | | 2022-06-19 | [facility] | NEGATIVE | (missing) | (missing) | | (unavailable | 05:50:08 [facility] | | | | + + + + + + + + + | Result panel 2265 | + + + + + + + + + | | 2022-06-19 | [facility] | NEGATIVE | (missing) | (missing) | | (unavailable | 05:50:08 [facility] | | | | + + + + + + + + + | Result panel 2266 | + + + + + + + + + | | 2022-06-19 | [facility] | NEGATIVE | (missing) | (missing) | | (unavailable | 05:50:08 [facility] | | | | + + + + + + + + + | Result panel 2267 | + + + + + + + + + | | 2022-06-19 | [facility] | NEGATIVE | (missing) | (missing) | | (unavailable | 05:50:08 [facility] | | | | + + + + + + + + + | Result panel 2268 | + + + + + + + + + | | 2022-06-19 | [facility] | NEGATIVE | (missing) | (missing) | | (unavailable | 05:50:08 [facility] | | | | + + + + + + + + + | Result panel 2269 | + + + + + + + + + | | 2022-06-19 | [facility] | NEGATIVE | (missing) | (missing) | | (unavailable | 05:50:08 [facility] | | | | + + + + + + + + + | Result panel 2270 | + + + + + + + + + | | 2022-06-19 | [facility] | NEGATIVE | (missing) | (missing) | | (unavailable | 05:50:08 | [facility] | | | | + + + + + + + + + | Result panel 2271 | + + + + + + + + + | | 2022-06-19 | [facility] | NEGATIVE | (missing) | (missing) | | (unavailable | 05:50:08 | [facility] | | | | + + + + + + + + + | Result panel 227 | + + + + + + + + + | | 2022-06-19 | [facility] | NEGATIVE | (missing) | (missing) | | (unavailable | 05:50:08 | [facility] | | | | + + + + + + + + + | Result panel 2272 | + + + + + + + + + | | 2022-06-19 | [facility] | NEGATIVE | (missing) | (missing) | | (unavailable | 05:50:08 | [facility] | | | | + + + + + + + + + | Result panel 227 | + + + + + +-------+ + + | | 2022-06-19 | [facility] | 6.7 | (missing) | (missing) | | (unavailable | 06:10:08 | [facility] | | | | + + + +-------+ + + + + | Result panel 2275 | + + + + + +--------+ + + | | 2022-06-19 | [facility] | 5.03 | (missing) | (missing) | | (unavailable | 06:10:08 | [facility] | | | | + + + +--------+ + + + + | Result panel 2276 | + + + + + +--------+ + + | | 2022-06-19 | [facility] | 12.8 | (missing) | (missing) | | (unavailable | 06:10:08 | [facility] | | | | + + + +--------+ + + + + | Result panel 227 | + + + + + +--------+ + + | | 2022-06-19 | [facility] | 40.3 | (missing) | (missing) | | (unavailable | 06:10:08 | [facility] | | | | + + + +--------+ + + + + | Result panel 2278 | + + + + + +--------+ + + | | 2022-06-19 | [facility] | 80.2 | (missing) | (missing) | | (unavailable | 06:10:08 | [facility] | | | | + + + +--------+ + + + + | Result panel 2279 | + + + + + +--------+ + + | | 2022-06-19 | [facility] | 25.5 | (missing) | (missing) | | (unavailable | 06:10:08 | [facility] | | | | + + + +--------+ + + + + | Result panel 2280 | + + + + + +--------+ + + | | 2022-06-19 | [facility] | 31.8 | (missing) | (missing) | | (unavailable | 06:10:08 | [facility] | | | | + + + +--------+ + + + + | Result panel 2281 | + + + + + +--------+ + + | | 2022-06-19 | [facility] | 16.9 | (missing) | (missing) | | (unavailable | 06:10:08 | [facility] | | | | + + + +--------+ + + + + | Result panel 2282 | + + + + + +-------+ + + | | 2022-06-19 | [facility] | 311 | (missing) | (missing) | | (unavailable | 06:10:08 | [facility] | | | | + + + +-------+ + + + + | Result panel 2283 | + + + + + +--------+ + + | | 2022-06-19 | [facility] | 71.2 | (missing) | (missing) | | (unavailable | 06:10:08 | [facility] | | | | + + + +--------+ + + + + | Result panel 2284 | + + + + + +--------+ + + | | 2022-06-19 | [facility] | 19.9 | (missing) | (missing) | | (unavailable | 06:10:08 | [facility] | | | | + + + +--------+ + + + + | Result panel 2285 | + + + + + +-------+ + + | | 2022-06-19 | [facility] | 7.1 | (missing) | (missing) | | (unavailable | 06:10:08 | [facility] | | | | + + + +-------+ + + + + | Result panel 2286 | + + + + + +-------+ + + | | 2022-06-19 | [facility] | 0.9 | (missing) | (missing) | | (unavailable | 06:10:08 | [facility] | | | | + + + +-------+ + + + + | Result panel 2287 | + + + + + +-------+ + + | | 2022-06-19 | [facility] | 0.9 | (missing) | (missing) | | (unavailable | 06:10:08 | [facility] | | | | + + + +-------+ + + + + | Result panel 2288 | + + + + + + + + + | | 2022-06-19 | [facility] | < 0.27 | (missing) | (missing) | | (unavailable | 06:10:08 | [facility] | | | | + + + + + + + + + | Result panel 2289 | + + + + + +---------+ + + | | 2022-06-19 | [facility] | 7.404 | (missing) | (missing) | | (unavailable | 06:10:08 [facility] | | | | + + + +---------+ + + + + | Result panel 2290 | + + + + + +-------+---------+ + | | 2022-06-19 | [facility] | 430 | mg/dL | (missing) | | (unavailable | 06:10:08 [facility] | | | | + + + +-------+---------+ + + + | Result panel 2291 | + + + + + +------+---------+ + | | 2022-06-19 | [facility] | 13 | mg/dL | (missing) | | (unavailable | 06:10:08 [facility] | | | | + + + +------+---------+ + + + | Result panel 2292 | + + + + + +--------+---------+ + | | 2022-06-19 | [facility] | 0.82 | mg/dL | (missing) | | (unavailable | 06:10:08 [facility] | | | | + + + +--------+---------+ + + + | Result panel 2293 | + + + + + +------+ + + | | 2022-06-19 | [facility] | 97 | (missing) | (missing) | | (unavailable | 06:10:08 [facility] | | | + + + +------+ + + + + | Result panel 2294 | + + + + + +---------+ + + | | 2022-06-19 | [facility] | 15.85 | (missing) | (missing) | | (unavailable | 06:10:08 [facility] | | | + + + +---------+ + + + + | Result panel 2295 | + + + + + +-------+ + + | | 2022-06-19 | [facility] | 135 | (missing) | (missing) | | (unavailable | 06:10:08 [facility] | | | + + + +-------+ + + + + | Result panel 229 | + + + + + +-------+ + + | | 2022-06-19 | [facility] | 4.2 | (missing) | (missing) | | (unavailable | 06:10:08 [facility] | | | + + + +-------+ + + + + | Result panel 2297 | + + + + + +------+ + + | | 2022-06-19 | [facility] | 97 | (missing) | (missing) | | (unavailable | 06:10:08 [facility] | | | + + + +------+ + + + + | Result panel 2298 | + + + + + +------+ + + | | 2022-06-19 | [facility] | 27 | (missing) | (missing) | | (unavailable | [facility]:10:08 [facility] | | | + + + +------+ + + + + | Result panel 2299 | + + + + + +--------+ + + | | 2022-06-19 | [facility] | 15.2 | (missing) | (missing) | | (unavailable | [facility]:10:08 [facility] | | | + + + +--------+ + + + + | Result panel 230 | + + + + + +-------+---------+ + | | 2022-06-19 | [facility] | 9.2 | mg/dL | (missing) | | (unavailable | 06:10:08 [facility] | | | + + + +-------+---------+ + + + | Result panel 230 | + + + + + +-------+ + + | | 2022-06-19 | [facility] | 7.5 | (missing) | (missing) | | (unavailable | 06:10:08 [facility] | | | + + + +-------+ + + + + | Result panel 2302 | + + + + + +-------+ + + | | 2022-06-19 | [facility] | 3.1 | (missing) | (missing) | | (unavailable | 06:10:08 [facility] | | | + + + +-------+ + + + + | Result panel 2303 | + + + + + +-------+ + + | | 2022-06-19 | [facility] | 4.4 | (missing) | (missing) | | (unavailable | 06:10:08 [facility] | | | + + + +-------+ + + + + | Result panel 2304 | + + + + + +--------+ + + | | 2022-06-19 | [facility] | 0.70 | (missing) | (missing) | | (unavailable | [facility]:10:08 [facility] | | | + + + +--------+ + + + + | Result panel 2305 | + + + + + +-------+ + + | | 2022-06-19 | [facility] | 0.4 | (missing) | (missing) | | (unavailable | 06[facility]10:08 [facility] | | | + + + +-------+ + + + + | Result panel 230 | + + + + + +------+ + + | | 2022-06-19 | [facility] | 14 | (missing) | (missing) | | (unavailable | [facility]10:08 [facility] | | | + + + +------+ + + + + | Result panel 230 | + + + + + +------+ + + | | 2022-06-19 | [facility] | 25 | (missing) | (missing) | | (unavailable | 06:10:08 [facility] | | | + + + +------+ + + + + | Result panel 2308 | + + + + + +------+ + + | | 2022-06-19 | [facility] | 92 | (missing) | (missing) | | (unavailable | 06:10:08 [facility] | | | + + + +------+ + + + + | Result panel 2309 | + + + + + +-------+ + + | | 2022-06-19 | [facility] | 158 | (missing) | (missing) | | (unavailable | 06:10:08 [facility] | | | + + + +-------+ + + + + | Result panel 2310 | + + + + + +-------+ + + | | 2022-06-19 | [facility] | 9.9 | (missing) | (missing) | | (unavailable | 06:10:08 [facility] | | | | + + + +-------+ + + + + | Result panel 2311 | + + + + + + + + + | | 2022-06-19 | [facility] | NEGATIVE | (missing) | (missing) | | (unavailable | 06:10:08 [facility] | | | | + + + + + + + + + | Result panel 2312 | + + + + + + + + + | | 2022-06-19 | [facility] | NEGATIVE | (missing) | (missing) | | (unavailable | 06:10:08 [facility] | | | | + + + + + + + + + | Result panel 2313 | + + + + + + + + + | | 2022-06-19 | [facility] | < 0.27 | (missing) | (missing) | | (unavailable | [facility]10:08 [facility] | | | + + + + + + + + + | Result panel 2314 | + + + + + +-------+ + + | | 2022-06-19 | [facility] | 9.9 | (missing) | (missing) | | (unavailable | [facility]10:08 [facility] | | | + + + +-------+ + + + + | Result panel 2315 | + + + + + + + + + | | 2022-06-19 | [facility] | < 0.27 | (missing) | (missing) | | (unavailable | [facility]10:08 [facility] | | | + + + + + + + + + | Result panel 2316 | + + + + + +-------+ + + | | 2022-06-19 | [facility] | 9.9 | (missing) | (missing) | | (unavailable | [facility]:10:08 [facility] | | | + + + +-------+ + + + + | Result panel 2317 | + + + + + + + + + | | 2022-06-19 | [facility] | < 0.27 | (missing) | (missing) | | (unavailable | 06:10:08 [facility] | | | | + + + + + + + + + | Result panel 2318 | + + + + + +-------+ + + | | 2022-06-19 | [facility] | 9.9 | (missing) | (missing) | | (unavailable | 06:10:08 [facility] | | | + + + +-------+ + + + + | Result panel 2319 | + + + + + +---------+ + + | | 2022-07-08 | [facility] | 7.369 | (missing) | (missing) | | (unavailable | 06:40:07 [facility] | | | + + + +---------+ + + + + | Result panel 2320 | + + + + + + + + + | | 2022-07-08 | [facility] | NEGATIVE | (missing) | (missing) | | (unavailable | [facility]:40:07 [facility] | | | | + + + + + + + + + | Result panel 2321 | + + + + + +---------+ + + | | 2022-07-08 | [facility] | 7.369 | (missing) | (missing) | | (unavailable | 06:40:07 [facility] | | | | + + + +---------+ + + + + | Result panel 2322 | + + + + + + + + + | | 2022-07-08 | [facility] | NEGATIVE | (missing) | (missing) | | (unavailable | [facility]:40:07 [facility] | | | | + + + + + + + + + | Result panel 2323 | + + + + + +---------+ + + | | 2022-07-08 | [facility] | 7.369 | (missing) | (missing) | | (unavailable | 06:40:07 [facility] | | | | + + + +---------+ + + + + | Result panel 2324 | + + + + + + + + + | | 2022-07-08 | [facility] | NEGATIVE | (missing) | (missing) | | (unavailable | [facility]:40:07 [facility] | | | + + + + + + + + + | Result panel 2325 | + + + + + +---------+ + + | | 2022-07-08 | [facility] | 7.369 | (missing) | (missing) | | (unavailable | [facility]:40:07 [facility] | | | + + + +---------+ + + + + | Result panel 2326 | + + + + + + + + + | | 2022-07-08 | [facility] | NEGATIVE | (missing) | (missing) | | (unavailable | [facility]:40:07 [facility] | | | + + + + + + + + + | Result panel 2327 | + + + + + +---------+ + + | | 2022-07-08 | [facility] | 7.369 | (missing) | (missing) | | (unavailable | 06:40:07 [facility] | | | + + + +---------+ + + + + | Result panel 2328 | + + + + + + + + + | | 2022-07-08 | [facility] | NEGATIVE | (missing) | (missing) | | (unavailable | [facility]40:07 [facility] | | | + + + + + + + + + | Result panel 2329 | + + + + + +---------+ + + | | 2022-07-08 | [facility] | 7.369 | (missing) | (missing) | | (unavailable | 06:40:07 [facility] | | | + + + +---------+ + + + + | Result panel 2330 | + + + + + + + + + | | 2022-07-08 | [facility] | NEGATIVE | (missing) | (missing) | | (unavailable | 06:40:07 [facility] | | | + + + + + + + + + | Result panel 2331 | + + + + + +--------+ + + | | 2022-07-08 | [facility] | 14.6 | (missing) | (missing) | | (unavailable | 06:40:08 [facility] | | | + + + +--------+ + + + + | Result panel 2332 | + + + + + +--------+ + + | | 2022-07-08 | [facility] | 3.66 | (missing) | (missing) | | (unavailable | 06:40:08 [facility] | | | + + + +--------+ + + + + | Result panel 2333 | + + + + + +-------+ + + | | 2022-07-08 | [facility] | 9.7 | (missing) | (missing) | | (unavailable | 06:40:08 [facility] | | | + + + +-------+ + + + + | Result panel 2334 | + + + + + +--------+ + + | | 2022-07-08 | [facility] | 30.9 | (missing) | (missing) | | (unavailable | 06:40:08 [facility] | | | + + + +--------+ + + + + | Result panel 2335 | + + + + + +--------+ + + | | 2022-07-08 | [facility] | 84.3 | (missing) | (missing) | | (unavailable | 06:40:08 [facility] | | | + + + +--------+ + + + + | Result panel 2336 | + + + + + +--------+ + + | | 2022-07-08 | [facility] | 26.5 | (missing) | (missing) | | (unavailable | 06:40:08 [facility] | | | + + + +--------+ + + + + | Result panel 2337 | + + + + + +--------+ + + | | 2022-07-08 | [facility] | 31.5 | (missing) | (missing) | | (unavailable | 06:40:08 [facility] | | | + + + +--------+ + + + + | Result panel 2338 | + + + + + +--------+ + + | | 2022-07-08 | [facility] | 15.6 | (missing) | (missing) | | (unavailable | 06:40:08 [facility] | | | + + + +--------+ + + + + | Result panel 2339 | + + + + + +-------+ + + | | 2022-07-08 | [facility] | 373 | (missing) | (missing) | | (unavailable | 06:40:08 [facility] | | | + + + +-------+ + + + + | Result panel 2340 | + + + + + +--------+ + + | | 2022-07-08 | [facility] | 78.0 | (missing) | (missing) | | (unavailable | 06:40:08 [facility] | | | + + + +--------+ + + + + | Result panel 2341 | + + + + + +--------+ + + | | 2022-07-08 | [facility] | 13.9 | (missing) | (missing) | | (unavailable | 06:40:08 [facility] | | | + + + +--------+ + + + + | Result panel 2342 | + + + + + +-------+ + + | | 2022-07-08 | [facility] | 6.9 | (missing) | (missing) | | (unavailable | 06:40:08 [facility] | | | + + + +-------+ + + + + | Result panel 2343 | + + + + + +-------+ + + | | 2022-07-08 | [facility] | 0.7 | (missing) | (missing) | | (unavailable | 06:40:08 [facility] | | | + + + +-------+ + + + + | Result panel 2344 | + + + + + +-------+ + + | | 2022-07-08 | [facility] | 0.5 | (missing) | (missing) | | (unavailable | 06:40:08 [facility] | | | + + + +-------+ + + + + | Result panel 2345 | + + + + + +--------+ + + | | 2022-07-08 | [facility] | 13.1 | (missing) | (missing) | | (unavailable | 06:40:08 [facility] | | | + + + +--------+ + + + + | Result panel 2346 | + + + + + +--------+ + + | | 2022-07-08 | [facility] | 1.04 | (missing) | (missing) | | (unavailable | 06:40:08 [facility] | | | + + + +--------+ + + + + | Result panel 2347 | + + + + + +--------+ + + | | 2022-07-08 | [facility] | 25.1 | (missing) | (missing) | | (unavailable | 06:40:08 [facility] | | | + + + +--------+ + + + + | Result panel 2348 | + + + + + +---------+ + + | | 2022-07-08 | [facility] | 7.369 | (missing) | (missing) | | (unavailable | 06:40:08 [facility] | | | + + + +---------+ + + + + | Result panel 2349 | + + + + + +-------+---------+ + | | 2022-07-08 | [facility] | 620 | mg/dL | (missing) | | (unavailable | 06:40:08 [facility] | | | + + + +-------+---------+ + + + | Result panel 2350 | + + + + + +------+---------+ + | | 2022-07-08 | [facility] | 43 | mg/dL | (missing) | | (unavailable | 06:40:08 [facility] | | | + + + +------+---------+ + + + | Result panel 235 | + + + + + +--------+---------+ + | | 2022-07-08 | [facility] | 0.81 | mg/dL | (missing) | | (unavailable | 06:40:08 [facility] | | | + + + +--------+---------+ + + + | Result panel 235 | + + + + + +------+ + + | | 2022-07-08 | [facility] | 99 | (missing) | (missing) | | (unavailable | 06:40:08 [facility] | | | + + + +------+ + + + + | Result panel 2353 | + + + + + +---------+ + + | | 2022-07-08 | [facility] | 53.08 | (missing) | (missing) | | (unavailable | 06:40:08 [facility] | | | + + + +---------+ + + + + | Result panel 2354 | + + + + + +-------+ + + | | 2022-07-08 | [facility] | 129 | (missing) | (missing) | | (unavailable | 06:40:08 [facility] | | | | + + + +-------+ + + + + | Result panel 2355 | + + + + + +-------+ + + | | 2022-07-08 | [facility] | 5.9 | (missing) | (missing) | | (unavailable | 06:40:08 [facility] | | | | + + + +-------+ + + + + | Result panel 2356 | + + + + + +------+ + + | | 2022-07-08 | [facility] | 95 | (missing) | (missing) | | (unavailable | 06:40:08 [facility] | | | | + + + +------+ + + + + | Result panel 2357 | + + + + + +------+ + + | | 2022-07-08 | [facility] | 24 | (missing) | (missing) | | (unavailable | 06:40:08 [facility] | | | | + + + +------+ + + + + | Result panel 2358 | + + + + + +--------+ + + | | 2022-07-08 | [facility] | 15.9 | (missing) | (missing) | | (unavailable | 06:40:08 [facility] | | | + + + +--------+ + + + + | Result panel 2359 | + + + + + +-------+---------+ + | | 2022-07-08 | [facility] | 8.4 | mg/dL | (missing) | | (unavailable | 06:40:08 [facility] | | | | + + + +-------+---------+ + + + | Result panel 2360 | + + + + + +-------+ + + | | 2022-07-08 | [facility] | 7.2 | (missing) | (missing) | | (unavailable | 06:40:08 [facility] | | | | + + + +-------+ + + + + | Result panel 2361 | + + + + + +-------+ + + | | 2022-07-08 | [facility] | 2.9 | (missing) | (missing) | | (unavailable | 06:40:08 [facility] | | | + + + +-------+ + + + + | Result panel 2362 | + + + + + +-------+ + + | | 2022-07-08 | [facility] | 4.3 | (missing) | (missing) | | (unavailable | 06:40:08 [facility] | | | + + + +-------+ + + + + | Result panel 2363 | + + + + + +--------+ + + | | 2022-07-08 | [facility] | 0.67 | (missing) | (missing) | | (unavailable | 06:40:08 [facility] | | | + + + +--------+ + + + + | Result panel 2364 | + + + + + +-------+ + + | | 2022-07-08 | [facility] | 0.3 | (missing) | (missing) | | (unavailable | 06:40:08 [facility] | | | + + + +-------+ + + + + | Result panel 2365 | + + + + + +------+ + + | | 2022-07-08 | [facility] | 17 | (missing) | (missing) | | (unavailable | 06:40:08 [facility] | | | | + + + +------+ + + + + | Result panel 2366 | + + + + + +------+ + + | | 2022-07-08 | [facility] | 23 | (missing) | (missing) | | (unavailable | 06:40:08 [facility] | | | | + + + +------+ + + + + | Result panel 2367 | + + + + + +------+ + + | | 2022-07-08 | [facility] | 73 | (missing) | (missing) | | (unavailable | 06:40:08 [facility] | | | | + + + +------+ + + + + | Result panel 2368 | + + + + + +-------+ + + | | 2022-07-08 | [facility] | 154 | (missing) | (missing) | | (unavailable | 06:40:08 [facility] | | | | + + + +-------+ + + + + | Result panel 2369 | + + + + + + + + + | | 2022-07-08 | [facility] | NEGATIVE | (missing) | (missing) | | (unavailable | 06:40:08 [facility] | | | | + + + + + + + + + | Result panel 2370 | + + + + + + + + + | | 2022-07-08 | [facility] | NEGATIVE | (missing) | (missing) | | (unavailable | 06:40:08 [facility] | | | | + + + + + + + + + | Result panel 2371 | + + + + + +---------+ + + | | 2022-07-08 | [facility] | 7.369 | (missing) | (missing) | | (unavailable | 06:40:08 [facility] | | | | + + + +---------+ + + + + | Result panel 2372 | + + + + + + + + + | | 2022-07-08 | [facility] | NEGATIVE | (missing) | (missing) | | (unavailable | 06:40:08 [facility] | | | | + + + + + + + + + | Result panel 2373 | + + + + + +---------+ + + | | 2022-07-08 | [facility] | 7.369 | (missing) | (missing) | | (unavailable | 06:40:08 [facility] | | | | + + + +---------+ + + + + | Result panel 2374 | + + + + + + + + + | | 2022-07-08 | [facility] | NEGATIVE | (missing) | (missing) | | (unavailable | 06:40:08 [facility] | | | | + + + + + + + + + | Result panel 2375 | + + + + + + + + + | | 2022-07-08 | [facility] | YELLOW | (missing) | (missing) | | (unavailable | 06:50:08 [facility] | | | | + + + + + + + + + | Result panel 2376 | + + + + + + + + + | | 2022-07-08 | [facility] | SL CLOUDY | (missing) | (missing) | | (unavailable | 06:50:08 [facility] | | | | + + + + + + + + + | Result panel 2377 | + + + + + + + + + | | 2022-07-08 | [facility] | >=1000 | (missing) | (missing) | | (unavailable | 06:50:08 [facility] | | | | + + + + + + + + + | Result panel 2378 | + + + + + + + + + | | 2022-07-08 | [facility] | NEGATIVE | (missing) | (missing) | | (unavailable | 06:50:08 [facility] | | | | + + + + + + + + + | Result panel 2379 | + + + + + + + + + | | 2022-07-08 | [facility] | NEGATIVE | (missing) | (missing) | | (unavailable | 06:50:08 [facility] | | | | + + + + + + + + + | Result panel 2380 | + + + + + + + + + | | 2022-07-08 | [facility] | <=1.005 | (missing) | (missing) | | (unavailable | 06:50:08 [facility] | | | | + + + + + + + + + | Result panel 238 | + + + + + + + + + | | 2022-07-08 | [facility] | NEGATIVE | (missing) | (missing) | | (unavailable | 06:50:08 [facility] | | | | + + + + + + + + + | Result panel 2382 | + + + + + +-------+ + + | | 2022-07-08 | [facility] | 6.0 | (missing) | (missing) | | (unavailable | 06:50:08 [facility] | | | | + + + +-------+ + + + + | Result panel 2383 | + + + + + + + + + | | 2022-07-08 | [facility] | NEGATIVE | (missing) | (missing) | | (unavailable | 06:50:08 [facility] | | | | + + + + + + + + + | Result panel 2384 | + + + + + + + + + | | 2022-07-08 | [facility] | NORMAL | (missing) | (missing) | | (unavailable | 06:50:08 [facility] | | | | + + + + + + + + + | Result panel 2385 | + + + + + + + + + | | 2022-07-08 | [facility] | POSITIVE | (missing) | (missing) | | (unavailable | 06:50:08 [facility] | | | | + + + + + + + + + | Result panel 2386 | + + + + + + + + + | | 2022-07-08 | [facility] | NEGATIVE | (missing) | (missing) | | (unavailable | 06:50:08 [facility] | | | | + + + + + + + + + | Result panel 2387 | + + + + + +-------+ + + | | 2022-07-08 | [facility] | 0-1 | (missing) | (missing) | | (unavailable | 06:50:08 [facility] | | | | + + + +-------+ + + + + | Result panel 2388 | + + + + + +-------+ + + | | 2022-07-08 | [facility] | 0-1 | (missing) | (missing) | | (unavailable | 06:50:08 [facility] | | | | + + + +-------+ + + + + | Result panel 2389 | + + + + + + + + + | | 2022-07-08 | [facility] | SQUAMOUS 1+ | (missing) | (missing) | | (unavailable | 06:50:08 [facility] | | | | + + + + + + + + + | Result panel 2390 | + + + + + + + + + | | 2022-07-08 | [facility] | NONE SEEN | (missing) | (missing) | | (unavailable | 06:50:08 [facility] | | | | + + + + + + + + + | Result panel 2391 | + + + + + +--------+ + + | | 2022-07-08 | [facility] | RARE | (missing) | (missing) | | (unavailable | 06:50:08 [facility] | | | | + + + +--------+ + + + + | Result panel 2392 | + + + + + + + + + | | 2022-07-08 | [facility] | NONE SEEN | (missing) | (missing) | | (unavailable | 06:50:08 [facility] | | | | + + + + + + + + + | Result panel 2393 | + + + + + +------+ + + | | 2022-07-08 | [facility] | No | (missing) | (missing) | | (unavailable | 06:50:08 | [facility] | | | | + + + +------+ + + + + | Result panel 2394 | + + + + + + + + + | | 2022-07-08 | [facility] | CLEAN CATCH | (missing) | (missing) | | (unavailable | 06:50:08 | [facility] | | | | + + + + + + + + + | Result panel 2395 | + + + + + + + + + | | 2022-07-08 | [facility] | NEGATIVE | (missing) | (missing) | | (unavailable | 06:50:08 | [facility] | | | | + + + + + + + + + | Result panel 2396 | + + + + + + + + + | | 2022-07-08 | [facility] | NEGATIVE | (missing) | (missing) | | (unavailable | 06:50:08 | [facility] | | | | + + + + + + + + + | Result panel 2397 | + + + + + + + + + | | 2022-07-08 | [facility] | NEGATIVE | (missing) | (missing) | | (unavailable | 06:50:08 | [facility] | | | | + + + + + + + + + | Result panel 2398 | + + + + + + + + + | | 2022-07-08 | [facility] | NEGATIVE | (missing) | (missing) | | (unavailable | 06:50:08 | [facility] | | | | + + + + + + + + + | Result panel 2399 | + + + + + + + + + | | 2022-07-08 | [facility] | NEGATIVE | (missing) | (missing) | | (unavailable | 06:50:08 | [facility] | | | | + + + + + + + + + | Result panel 2400 | + + + + + + + + + | | 2022-07-08 | [facility] | NEGATIVE | (missing) | (missing) | | (unavailable | 06:50:08 | [facility] | | | | + + + + + + + + + | Result panel 2401 | + + + + + + + + + | | 2022-07-08 | [facility] | NEGATIVE | (missing) | (missing) | | (unavailable | 06:50:08 | [facility] | | | | + + + + + + + + + | Result panel 2402 | + + + + + + + + + | | 2022-07-08 | [facility] | NEGATIVE | (missing) | (missing) | | (unavailable | 06:50:08 | [facility] | | | | + + + + + + + + + | Result panel 2403 | + + + + + + + + + | | 2022-07-08 | [facility] | NEGATIVE | (missing) | (missing) | | (unavailable | 06:50:08 | [facility] | | | | + + + + + + + + + | Result panel 2404 | + + + + + + + + + | | 2022-07-08 | [facility] | NEGATIVE | (missing) | (missing) | | (unavailable | 06:50:08 | [facility] | | | | + + + + + + + + + | Result panel 2405 | + + + + + + + + + | | 2022-07-08 | [facility] | NEGATIVE | (missing) | (missing) | | (unavailable | 06:50:08 | [facility] | | | | + + + + + + + + + | Result panel 2406 | + + + + + + + + + | | 2022-07-08 | [facility] | NEGATIVE | (missing) | (missing) | | (unavailable | 06:50:08 | [facility] | | | | + + + + + + + + + | Result panel 2407 | + + + + + + + + + | | 2022-07-08 | [facility] | NEGATIVE | (missing) | (missing) | | (unavailable | 06:50:08 | [facility] | | | | + + + + + + + + + | Result panel 2408 | + + + + + + + + + | | 2022-07-08 | [facility] | NEGATIVE | (missing) | (missing) | | (unavailable | 07:15:07 | [facility] | | | | + + + + + + + + + | Result panel 2409 | + + + + + + + + + | | 2022-07-08 | [facility] | NEGATIVE | (missing) | (missing) | | (unavailable | 07:15:07 | [facility] | | | | + + + + + + + + + | Result panel 2410 | + + + + + + + + + | | 2022-07-08 | [facility] | NEGATIVE | (missing) | (missing) | | (unavailable | 07:15:07 | [facility] | | | | + + + + + + + + + | Result panel 2411 | + + + + + + + + + | | 2022-07-08 | [facility] | NEGATIVE | (missing) | (missing) | | (unavailable | 07:15:07 | [facility] | | | | + + + + + + + + + | Result panel 241 | + + + + + + + + + | | 2022-07-08 | [facility] | NEGATIVE | (missing) | (missing) | | (unavailable | 07:15:07 | [facility] | | | | + + + + + + + + + | Result panel 2413 | + + + + + + + + + | | 2022-07-08 | [facility] | NEGATIVE | (missing) | (missing) | | (unavailable | 07:15:07 [facility] | | | | + + + + + + + + + | Result panel 2414 | + + + + + + + + + | | 2022-07-08 | [facility] | NEGATIVE | (missing) | (missing) | | (unavailable | 07:15:07 | [facility] | | | | + + + + + + + + + | Result panel 2415 | + + + + + + + + + | | 2022-07-08 | [facility] | NEGATIVE | (missing) | (missing) | | (unavailable | 07:15:07 [facility] | | | | + + + + + + + + + | Result panel 2416 | + + + + + + + + + | | 2022-07-08 | [facility] | NEGATIVE | (missing) | (missing) | | (unavailable | 07:15:07 [facility] | | | | + + + + + + + + + | Result panel 2417 | + + + + + + + + + | | 2022-07-08 | [facility] | NEGATIVE | (missing) | (missing) | | (unavailable | 07:15:07 [facility] | | | | + + + + + + + + + | Result panel 2418 | + + + + + + + + + | | 2022-07-08 | [facility] | NEGATIVE | (missing) | (missing) | | (unavailable | 07:15:07 [facility] | | | | + + + + + + + + + | Result panel 2419 | + + + + + + + + + | | 2022-07-08 | [facility] | NEGATIVE | (missing) | (missing) | | (unavailable | 07:15:07 | [facility] | | | | + + + + + + + + + | Result panel 2420 | + + + + + + + + + | | 2022-07-08 | [facility] | NEGATIVE | (missing) | (missing) | | (unavailable | 07:15:07 [facility] | | | | + + + + + + + + + | Result panel 2421 | + + + + + + + + + | | 2022-07-08 | [facility] | NEGATIVE | (missing) | (missing) | | (unavailable | 07:15:07 [facility] | | | | + + + + + + + + + | Result panel 2422 | + + + + + + + + + | | 2022-07-08 | [facility] | NEGATIVE | (missing) | (missing) | | (unavailable | 07:15:07 | [facility] | | | | + + + + + + + + + | Result panel 2423 | + + + + + + + + + | | 2022-07-08 | [facility] | NEGATIVE | (missing) | (missing) | | (unavailable | 07:15:07 [facility] | | | + + + + + + + + + | Result panel 2424 | + + + + + + + + + | | 2022-07-08 | [facility] | NEGATIVE | (missing) | (missing) | | (unavailable | 07:15:07 [facility] | | | | + + + + + + + + + | Result panel 2425 | + + + + + + + + + | | 2022-07-08 | [facility] | NEGATIVE | (missing) | (missing) | | (unavailable | 07:15:07 | [facility] | | | | + + + + + + + + + | Result panel 2426 | + + + + + + + + + | | 2022-07-08 | [facility] | NEGATIVE | (missing) | (missing) | | (unavailable | 07:15:07 [facility] | | | | + + + + + + + + + | Result panel 2427 | + + + + + + + + + | | 2022-07-08 | [facility] | NEGATIVE | (missing) | (missing) | | (unavailable | 07:15:07 | [facility] | | | | + + + + + + + + + | Result panel 2428 | + + + + + + + + + | | 2022-07-08 | [facility] | NEGATIVE | (missing) | (missing) | | (unavailable | 07:15:07 | [facility] | | | | + + + + + + + + + | Result panel 2429 | + + + + + + + + + | | 2022-07-08 | [facility] | NEGATIVE | (missing) | (missing) | | (unavailable | 07:15:07 | [facility] | | | | + + + + + + + + + | Result panel 2430 | + + + + + + + + + | | 2022-07-08 | [facility] | NEGATIVE | (missing) | (missing) | | (unavailable | 07:15:07 [facility] | | | | + + + + + + + + + | Result panel 2431 | + + + + + + + + + | | 2022-07-08 | [facility] | NEGATIVE | (missing) | (missing) | | (unavailable | 07:15:07 [facility] | | | | + + + + + + + + + | Result panel 2432 | + + + + + + + + + | | 2022-07-08 | [facility] | NEGATIVE | (missing) | (missing) | | (unavailable | 07:15:08 | [facility] | | | | + + + + + + + + + | Result panel 2433 | + + + + + + + + + | | 2022-07-08 | [facility] | NEGATIVE | (missing) | (missing) | | (unavailable | 07:15:08 | [facility] | | | | + + + + + + + + + | Result panel 2434 | + + + + + + + + + | | 2022-07-08 | [facility] | NEGATIVE | (missing) | (missing) | | (unavailable | 07:15:08 | [facility] | | | | + + + + + + + + + | Result panel 2435 | + + + + + + + + + | | 2022-07-08 | [facility] | NEGATIVE | (missing) | (missing) | | (unavailable | 07:15:08 | [facility] | | | | + + + + + + + + + | Result panel 2436 | + + + + + + + + + | | 2022-07-08 | [facility] | NEGATIVE | (missing) | (missing) | | (unavailable | 07:15:08 | [facility] | | | | + + + + + + + + + | Result panel 2437 | + + + + + + + + + | | 2022-07-08 | [facility] | NEGATIVE | (missing) | (missing) | | (unavailable | 07:15:08 | [facility] | | | | + + + + + + + + + | Result panel 2438 | + + + + + + + + + | | 2022-07-08 | [facility] | NEGATIVE | (missing) | (missing) | | (unavailable | 07:15:08 | [facility] | | | | + + + + + + + + + | Result panel 2439 | + + + + + + + + + | | 2022-07-08 | [facility] | NEGATIVE | (missing) | (missing) | | (unavailable | 07:15:08 | [facility] | | | | + + + + + + + + + | Result panel 2440 | + + + + + + + + + | | 2022-07-08 | [facility] | NEGATIVE | (missing) | (missing) | | (unavailable | 07:15:08 | [facility] | | | | + + + + + + + + + | Result panel 2441 | + + + + + + + + + | | 2022-07-08 | [facility] | NEGATIVE | (missing) | (missing) | | (unavailable | 07:15:08 | [facility] | | | | + + + + + + + + + | Result panel 2442 | + + + + + + + + + | | 2022-07-08 | [facility] | NEGATIVE | (missing) | (missing) | | (unavailable | 07:15:08 | [facility] | | | | + + + + + + + + + | Result panel 2443 | + + + + + + + + + | | 2022-07-08 | [facility] | NEGATIVE | (missing) | (missing) | | (unavailable | 07:15:08 | [facility] | | | | + + + + + + + + + | Result panel 2444 | + + + + + +-------+ + + | | 2022-07-08 | [facility] | 262 | (missing) | (missing) | | (unavailable | 10:39:08 | [facility] | | | | + + + +-------+ + + + + | Result panel 2445 | + + + + + +------+ + + | | 2022-07-09 | [facility] | 97 | (missing) | (missing) | | (unavailable | 07:05:07 | [facility] | | | | + + + +------+ + + + + | Result panel 2446 | + + + + + + + + + | | 2022-07-09 | [facility] | NEGATIVE | (missing) | (missing) | | (unavailable | 07:05:07 | [facility] | | | | + + + + + + + + + | Result panel 2447 | + + + + + +------+ + + | | 2022-07-09 | [facility] | 97 | (missing) | (missing) | | (unavailable | 07:05:07 | [facility] | | | | + + + +------+ + + + + | Result panel 2448 | + + + + + + + + + | | 2022-07-09 | [facility] | NEGATIVE | (missing) | (missing) | | (unavailable | 07:05:07 | [facility] | | | | + + + + + + + + + | Result panel 2449 | + + + + + +--------+ + + | | 2022-07-09 | [facility] | 13.5 | (missing) | (missing) | | (unavailable | 07:05:08 | [facility] | | | | + + + +--------+ + + + + | Result panel 2450 | + + + + + +--------+ + + | | 2022-07-09 | [facility] | 1.07 | (missing) | (missing) | | (unavailable | 07:05:08 | [facility] | | | | + + + +--------+ + + + + | Result panel 2451 | + + + + + +--------+ + + | | 2022-07-09 | [facility] | 28.8 | (missing) | (missing) | | (unavailable | 07:05:08 | [facility] | | | | + + + +--------+ + + + + | Result panel 2452 | + + + + + +------+ + + | | 2022-07-09 | [facility] | 97 | (missing) | (missing) | | (unavailable | 07:05:08 | [facility] | | | | + + + +------+ + + + + | Result panel 2453 | + + + + + + + + + | | 2022-07-09 | [facility] | NEGATIVE | (missing) | (missing) | | (unavailable | 07:05:08 | [facility] | | | | + + + + + + + + + | Result panel 2454 | + + + + + +------+ + + | | 2022-07-09 | [facility] | 97 | (missing) | (missing) | | (unavailable | 07:05:08 | [facility] | | | | + + + +------+ + + + + | Result panel 2455 | + + + + + + + + + | | 2022-07-09 | [facility] | NEGATIVE | (missing) | (missing) | | (unavailable | 07:05:08 | [facility] | | | | + + + + + + + + + | Result panel 245 | + + + + + + + + + | | 2022-07-09 | [facility] | NONE SEEN | (missing) | (missing) | | (unavailable | 07:32:07 | [facility] | | | | + + + + + + + + + | Result panel 2457 | + + + + + + + + + | | 2022-07-09 | [facility] | NONE SEEN | (missing) | (missing) | | (unavailable | 07:32:07 | [facility] | | | | + + + + + + + + + | Result panel 2458 | + + + + + + + + + | | 2022-07-09 | [facility] | NONE SEEN | (missing) | (missing) | | (unavailable | 07:32:07 | [facility] | | | | + + + + + + + + + | Result panel 2459 | + + + + + + + + + | | 2022-07-09 | [facility] | NONE SEEN | (missing) | (missing) | | (unavailable | 07:32:07 | [facility] | | | | + + + + + + + + + | Result panel 2460 | + + + + + + + + + | | 2022-07-09 | [facility] | YELLOW | (missing) | (missing) | | (unavailable | 07:32:08 | [facility] | | | | + + + + + + + + + | Result panel 2461 | + + + + + +---------+ + + | | 2022-07-09 | [facility] | CLEAR | (missing) | (missing) | | (unavailable | 07:32:08 | [facility] | | | | + + + +---------+ + + + + | Result panel 2462 | + + + + + +---------+ + + | | 2022-07-09 | [facility] | LARGE | (missing) | (missing) | | (unavailable | 07:32:08 | [facility] | | | | + + + +---------+ + + + + | Result panel 2463 | + + + + + + + + + | | 2022-07-09 | [facility] | NEGATIVE | (missing) | (missing) | | (unavailable | 07:32:08 | [facility] | | | | + + + + + + + + + | Result panel 2464 | + + + + + + + + + | | 2022-07-09 | [facility] | NEGATIVE | (missing) | (missing) | | (unavailable | 07:32:08 | [facility] | | | | + + + + + + + + + | Result panel 2465 | + + + + + +---------+ + + | | 2022-07-09 | [facility] | 1.015 | (missing) | (missing) | | (unavailable | 07:32:08 | [facility] | | | | + + + +---------+ + + + + | Result panel 2466 | + + + + + + + + + | | 2022-07-09 | [facility] | TRACE-I | (missing) | (missing) | | (unavailable | 07:32:08 | [facility] | | | | + + + + + + + + + | Result panel 2467 | + + + + + +-------+ + + | | 2022-07-09 | [facility] | 5.5 | (missing) | (missing) | | (unavailable | 07:32:08 | [facility] | | | | + + + +-------+ + + + + | Result panel 2468 | + + + + + + + + + | | 2022-07-09 | [facility] | NEGATIVE | (missing) | (missing) | | (unavailable | 07:32:08 | [facility] | | | | + + + + + + + + + | Result panel 2469 | + + + + + + + + + | | 2022-07-09 | [facility] | NORMAL | (missing) | (missing) | | (unavailable | 07:32:08 | [facility] | | | | + + + + + + + + + | Result panel 2470 | + + + + + + + + + | | 2022-07-09 | [facility] | NEGATIVE | (missing) | (missing) | | (unavailable | 07:32:08 | [facility] | | | | + + + + + + + + + | Result panel 2471 | + + + + + + + + + | | 2022-07-09 | [facility] | NEGATIVE | (missing) | (missing) | | (unavailable | 07:32:08 | [facility] | | | | + + + + + + + + + | Result panel 2472 | + + + + + +-------+ + + | | 2022-07-09 | [facility] | 2-3 | (missing) | (missing) | | (unavailable | 07:32:08 | [facility] | | | | + + + +-------+ + + + + | Result panel 2473 | + + + + + +-------+ + + | | 2022-07-09 | [facility] | 0-1 | (missing) | (missing) | | (unavailable | 07:32:08 | [facility] | | | | + + + +-------+ + + + + | Result panel 2474 | + + + + + + + + + | | 2022-07-09 | [facility] | SQUAMOUS 3+ | (missing) | (missing) | | (unavailable | 07:32:08 | [facility] | | | | + + + + + + + + + | Result panel 2475 | + + + + + + + + + | | 2022-07-09 | [facility] | NONE SEEN | (missing) | (missing) | | (unavailable | 07:32:08 | [facility] | | | | + + + + + + + + + | Result panel 2476 | + + + + + +--------+ + + | | 2022-07-09 | [facility] | RARE | (missing) | (missing) | | (unavailable | 07:32:08 | [facility] | | | | + + + +--------+ + + + + | Result panel 2477 | + + + + + + + + + | | 2022-07-09 | [facility] | NONE SEEN | (missing) | (missing) | | (unavailable | 07:32:08 | [facility] | | | | + + + + + + + + + | Result panel 2478 | + + + + + +------+ + + | | 2022-07-09 | [facility] | No | (missing) | (missing) | | (unavailable | 07:32:08 | [facility] | | | | + + + +------+ + + + + | Result panel 2479 | + + + + + + + + + | | 2022-07-09 | [facility] | CLEAN CATCH | (missing) | (missing) | | (unavailable | 07:32:08 | [facility] | | | | + + + + + + + + + | Result panel 2480 | + + + + + + + + + | | 2022-07-09 | [facility] | NEGATIVE | (missing) | (missing) | | (unavailable | 07:32:08 | [facility] | | | | + + + + + + + + + | Result panel 2481 | + + + + + + + + + | | 2022-07-09 | [facility] | NEGATIVE | (missing) | (missing) | | (unavailable | 07:32:08 | [facility] | | | | + + + + + + + + + | Result panel 2482 | + + + + + + + + + | | 2022-07-09 | [facility] | NEGATIVE | (missing) | (missing) | | (unavailable | 07:32:08 | [facility] | | | | + + + + + + + + + | Result panel 2483 | + + + + + + + + + | | 2022-07-09 | [facility] | NEGATIVE | (missing) | (missing) | | (unavailable | 07:32:08 | [facility] | | | | + + + + + + + + + | Result panel 2484 | + + + + + + + + + | | 2022-07-09 | [facility] | NEGATIVE | (missing) | (missing) | | (unavailable | 07:32:08 | [facility] | | | | + + + + + + + + + | Result panel 2485 | + + + + + + + + + | | 2022-07-09 | [facility] | NEGATIVE | (missing) | (missing) | | (unavailable | 07:32:08 | [facility] | | | | + + + + + + + + + | Result panel 2486 | + + + + + + + + + | | 2022-07-09 | [facility] | NEGATIVE | (missing) | (missing) | | (unavailable | 07:32:08 | [facility] | | | | + + + + + + + + + | Result panel 2487 | + + + + + + + + + | | 2022-07-09 | [facility] | NEGATIVE | (missing) | (missing) | | (unavailable | 07:32:08 | [facility] | | | | + + + + + + + + + | Result panel 2488 | + + + + + + + + + | | 2022-07-09 | [facility] | NEGATIVE | (missing) | (missing) | | (unavailable | 07:32:08 | [facility] | | | | + + + + + + + + + | Result panel 2489 | + + + + + + + + + | | 2022-07-09 | [facility] | NEGATIVE | (missing) | (missing) | | (unavailable | 07:32:08 | [facility] | | | | + + + + + + + + + | Result panel 2490 | + + + + + + + + + | | 2022-07-09 | [facility] | NEGATIVE | (missing) | (missing) | | (unavailable | 07:32:08 | [facility] | | | | + + + + + + + + + | Result panel 2491 | + + + + + + + + + | | 2022-07-09 | [facility] | NEGATIVE | (missing) | (missing) | | (unavailable | 07:32:08 | [facility] | | | | + + + + + + + + + | Result panel 2492 | + + + + + + + + + | | 2022-07-09 | [facility] | NEGATIVE | (missing) | (missing) | | (unavailable | 07:32:08 | [facility] | | | | + + + + + + + + + | Result panel 2493 | + + + + + + + + + | | 2022-07-09 | [facility] | NONE SEEN | (missing) | (missing) | | (unavailable | 07:32:08 | [facility] | | | | + + + + + + + + + | Result panel 2494 | + + + + + + + + + | | 2022-07-09 | [facility] | NONE SEEN | (missing) | (missing) | | (unavailable | 07:32:08 | [facility] | | | | + + + + + + + + + | Result panel 2495 | + + + + + +--------+ + + | | 2022-07-09 | [facility] | 12.8 | (missing) | (missing) | | (unavailable | 08:00:07 | [facility] | | | | + + + +--------+ + + + + | Result panel 2496 | + + + + + + + + + | | 2022-07-09 | [facility] | COMPATIBLE | (missing) | (missing) | | (unavailable | 08:00:07 | [facility] | | | | + + + + + + + + + | Result panel 2497 | + + + + + + + + + | | 2022-07-09 | [facility] | COMPATIBLE | (missing) | (missing) | | (unavailable | 08:00:07 | [facility] | | | | + + + + + + + + + | Result panel 2498 | + + + + + + + + + | | 2022-07-09 | [facility] | COMPATIBLE | (missing) | (missing) | | (unavailable | 08:00:07 | [facility] | | | | + + + + + + + + + | Result panel 2499 | + + + + + + + + + | | 2022-07-09 | [facility] | COMPATIBLE | (missing) | (missing) | | (unavailable | 08:00:07 | [facility] | | | | + + + + + + + + + | Result panel 2500 | + + + + + + + + + | | 2022-07-09 | [facility] | | (missing) | (missing) | | (unavailable | 08:00:07 | [facility] | [phone] | | | | ) | | [facility] | 00H | | | + + + + + + + + + | Result panel 2501 | + + + + + + + + + | | 2022-07-09 | [facility] | | (missing) | (missing) | | (unavailable | 08:00:07 | [facility] | [phone] | | | | ) | | [facility] | 00D | | | + + + + + + + + + | Result panel 2502 | + + + + + + + + + | | 2022-07-09 | [facility] | | (missing) | (missing) | | (unavailable | 08:00:07 | [facility] | [phone] | | | | ) | | [facility] | 00O | | | + + + + + + + + + | Result panel 2503 | + + + + + + + + + | | 2022-07-09 | [facility] | | (missing) | (missing) | | (unavailable | 08:00:07 | [facility] | [phone] | | | | ) | | [facility] | 00K | | | + + + + + + + + + | Result panel 2504 | + + + + + + + + + | | 2022-07-09 | [facility] | | (missing) | (missing) | | (unavailable | 08:00:07 | [facility] | [phone] | | | | ) | | [facility] | 008 | | | + + + + + + + + + | Result panel 2505 | + + + + + +--------+ + + | | 2022-07-09 | [facility] | 12.8 | (missing) | (missing) | | (unavailable | 08:00:07 | [facility] | | | | + + + +--------+ + + + + | Result panel 2506 | + + + + + + + + + | | 2022-07-09 | [facility] | COMPATIBLE | (missing) | (missing) | | (unavailable | 08:00:07 | [facility] | | | | + + + + + + + + + | Result panel 2507 | + + + + + + + + + | | 2022-07-09 | [facility] | COMPATIBLE | (missing) | (missing) | | (unavailable | 08:00:07 | [facility] | | | | + + + + + + + + + | Result panel 2508 | + + + + + + + + + | | 2022-07-09 | [facility] | COMPATIBLE | (missing) | (missing) | | (unavailable | 08:00:07 | [facility] | | | | + + + + + + + + + | Result panel 250 | + + + + + + + + + | | 2022-07-09 | [facility] | COMPATIBLE | (missing) | (missing) | | (unavailable | 08:00:07 | [facility] | | | | + + + + + + + + + | Result panel 251 | + + + + + + + + + | | 2022-07-09 | [facility] | | (missing) | (missing) | | (unavailable | 08:00:07 | [facility] | [phone] | | | | ) | | [facility] | 00H | | | + + + + + + + + + | Result panel 2511 | + + + + + + + + + | | 2022-07-09 | [facility] | | (missing) | (missing) | | (unavailable | 08:00:07 | [facility] | [phone] | | | | ) | | [facility] | 00D | | | + + + + + + + + + | Result panel 2512 | + + + + + + + + + | | 2022-07-09 | [facility] | | (missing) | (missing) | | (unavailable | 08:00:07 | [facility] | [phone] | | | | ) | | [facility] | 00O | | | + + + + + + + + + | Result panel 2513 | + + + + + + + + + | | 2022-07-09 | [facility] | | (missing) | (missing) | | (unavailable | 08:00:07 | [facility] | [phone] | | | | ) | | [facility] | 00K | | | + + + + + + + + + | Result panel 2514 | + + + + + + + + + | | 2022-07-09 | [facility] | | (missing) | (missing) | | (unavailable | 08:00:07 | [facility] | [phone] | | | | ) | | [facility] | 008 | | | + + + + + + + + + | Result panel 2515 | + + + + + +--------+ + + | | 2022-07-09 | [facility] | 12.8 | (missing) | (missing) | | (unavailable | 08:00:07 | [facility] | | | | + + + +--------+ + + + + | Result panel 2516 | + + + + + + + + + | | 2022-07-09 | [facility] | COMPATIBLE | (missing) | (missing) | | (unavailable | 08:00:07 | [facility] | | | | + + + + + + + + + | Result panel 2517 | + + + + + + + + + | | 2022-07-09 | [facility] | COMPATIBLE | (missing) | (missing) | | (unavailable | 08:00:07 | [facility] | | | | + + + + + + + + + | Result panel 2518 | + + + + + + + + + | | 2022-07-09 | [facility] | COMPATIBLE | (missing) | (missing) | | (unavailable | 08:00:07 | [facility] | | | | + + + + + + + + + | Result panel 2519 | + + + + + + + + + | | 2022-07-09 | [facility] | COMPATIBLE | (missing) | (missing) | | (unavailable | 08:00:07 | [facility] | | | | + + + + + + + + + | Result panel 2520 | + + + + + + + + + | | 2022-07-09 | [facility] | | (missing) | (missing) | | (unavailable | 08:00:07 | [facility] | [phone] | | | | ) | | [facility] | 00H | | | + + + + + + + + + | Result panel 252 | + + + + + + + + + | | 2022-07-09 | [facility] | | (missing) | (missing) | | (unavailable | 08:00:07 | [facility] | [phone] | | | | ) | | [facility] | 00D | | | + + + + + + + + + | Result panel 2522 | + + + + + + + + + | | 2022-07-09 | [facility] | | (missing) | (missing) | | (unavailable | 08::07 | [facility] | [phone] | | | | ) | | [facility] | 00O | | | + + + + + + + + + | Result panel 2523 | + + + + + + + + + | | 2022-07-09 | [facility] | | (missing) | (missing) | | (unavailable | 08:00:07 | [facility] | [phone] | | | | ) | | [facility] | 00K | | | + + + + + + + + + | Result panel 2524 | + + + + + + + + + | | 2022-07-09 | [facility] | | (missing) | (missing) | | (unavailable | 08:00:07 | [facility] | [phone] | | | | ) | | [facility] | 008 | | | + + + + + + + + + | Result panel 2525 | + + + + + +--------+ + + | | 2022-07-09 | [facility] | 12.8 | (missing) | (missing) | | (unavailable | 08:00:07 | [facility] | | | | + + + +--------+ + + + + | Result panel 2526 | + + + + + + + + + | | 2022-07-09 | [facility] | COMPATIBLE | (missing) | (missing) | | (unavailable | 08:00:07 | [facility] | | | | + + + + + + + + + | Result panel 2527 | + + + + + + + + + | | 2022-07-09 | [facility] | COMPATIBLE | (missing) | (missing) | | (unavailable | 08:00:07 | [facility] | | | | + + + + + + + + + | Result panel 2528 | + + + + + + + + + | | 2022-07-09 | [facility] | COMPATIBLE | (missing) | (missing) | | (unavailable | 08:00:07 | [facility] | | | | + + + + + + + + + | Result panel 2529 | + + + + + + + + + | | 2022-07-09 | [facility] | COMPATIBLE | (missing) | (missing) | | (unavailable | 08:00:07 | [facility] | | | | + + + + + + + + + | Result panel 2530 | + + + + + + + + + | | 2022-07-09 | [facility] | | (missing) | (missing) | | (unavailable | 08:00:07 | [facility] | [phone] | | | | ) | | [facility] | 00H | | | + + + + + + + + + | Result panel 2531 | + + + + + + + + + | | 2022-07-09 | [facility] | | (missing) | (missing) | | (unavailable | 08:00:07 | [facility] | [phone] | | | | ) | | [facility] | 00D | | | + + + + + + + + + | Result panel 2532 | + + + + + + + + + | | 2022-07-09 | [facility] | | (missing) | (missing) | | (unavailable | 08:00:07 | [facility] | [phone] | | | | ) | | [facility] | 00O | | | + + + + + + + + + | Result panel 2533 | + + + + + + + + + | | 2022-07-09 | [facility] | | (missing) | (missing) | | (unavailable | 08:00:07 | [facility] | [phone] | | | | ) | | [facility] | 00K | | | + + + + + + + + + | Result panel 2534 | + + + + + + + + + | | 2022-07-09 | [facility] | | (missing) | (missing) | | (unavailable | 08:00:07 | [facility] | [phone] | | | | ) | | [facility] | 008 | | | + + + + + + + + + | Result panel 2535 | + + + + + +--------+ + + | | 2022-07-09 | [facility] | 12.8 | (missing) | (missing) | | (unavailable | 08:00:07 | [facility] | | | | + + + +--------+ + + + + | Result panel 2536 | + + + + + + + + + | | 2022-07-09 | [facility] | COMPATIBLE | (missing) | (missing) | | (unavailable | 08:00:07 | [facility] | | | | + + + + + + + + + | Result panel 2537 | + + + + + + + + + | | 2022-07-09 | [facility] | COMPATIBLE | (missing) | (missing) | | (unavailable | 08:00:07 | [facility] | | | | + + + + + + + + + | Result panel 2538 | + + + + + + + + + | | 2022-07-09 | [facility] | COMPATIBLE | (missing) | (missing) | | (unavailable | 08:00:07 | [facility] | | | | | ) | | [facility] | | | | + + + + + + + + + | Result panel 2539 | + + + + + + + + + | | 2022-07-09 | [facility] | COMPATIBLE | (missing) | (missing) | | (unavailable | 08:00:07 | [facility] | | | | + + + + + + + + + | Result panel 2540 | + + + + + + + + + | | 2022-07-09 | [facility] | | (missing) | (missing) | | (unavailable | 08:00:07 | [facility] | [id number] | | | | ) | | [facility] | 00H | | | + + + + + + + + + | Result panel 2541 | + + + + + + + + + | | 2022-07-09 | [facility] | | (missing) | (missing) | | (unavailable | 08:00:07 | [facility] | [id number] | | | | ) | | [facility] | 00D | | | + + + + + + + + + | Result panel 2542 | + + + + + + + + + | | 2022-07-09 | [facility] | | (missing) | (missing) | | (unavailable | 08:00:07 | [facility] | [id number] | | | | ) | | [facility] | 00O | | | + + + + + + + + + | Result panel 2543 | + + + + + + + + + | | 2022-07-09 | [facility] | | (missing) | (missing) | | (unavailable | 08:00:07 | [facility] | [id number] | | | | ) | | [facility] | 00K | | | + + + + + + + + + | Result panel 2544 | + + + + + + + + + | | 2022-07-09 | [facility] | | (missing) | (missing) | | (unavailable | 08:00:07 | [facility] | [id number] | | | | ) | | [facility] | 008 | | | + + + + + + + + + | Result panel 2545 | + + + + + +--------+ + + | | 2022-07-09 | [facility] | 12.8 | (missing) | (missing) | | (unavailable | 08:00:07 | [facility] | | | | + + + +--------+ + + + + | Result panel 2546 | + + + + + + + + + | | 2022-07-09 | [facility] | COMPATIBLE | (missing) | (missing) | | (unavailable | 08:00:07 | [facility] | | | | + + + + + + + + + | Result panel 2547 | + + + + + + + + + | | 2022-07-09 | [facility] | COMPATIBLE | (missing) | (missing) | | (unavailable | 08:00:07 | [facility] | | | | + + + + + + + + + | Result panel 2548 | + + + + + + + + + | | 2022-07-09 | [facility] | COMPATIBLE | (missing) | (missing) | | (unavailable | 08:00:07 | [facility] | | | | + + + + + + + + + | Result panel 2549 | + + + + + + + + + | | 2022-07-09 | [facility] | COMPATIBLE | (missing) | (missing) | | (unavailable | 08:00:07 | [facility] | | | | + + + + + + + + + | Result panel 2550 | + + + + + + + + + | | 2022-07-09 | [facility] | | (missing) | (missing) | | (unavailable | 08:00:07 | [facility] | [id number] | | | | ) | | [facility] | 00H | | | + + + + + + + + + | Result panel 2551 | + + + + + + + + + | | 2022-07-09 | [facility] | | (missing) | (missing) | | (unavailable | 08:00:07 | [facility] | [id number] | | | | ) | | [facility] | 00D | | | + + + + + + + + + | Result panel 2552 | + + + + + + + + + | | 2022-07-09 | [facility] | | (missing) | (missing) | | (unavailable | 08:00:07 | [facility] | [id number] | | | | ) | | [facility] | 00O | | | + + + + + + + + + | Result panel 2553 | + + + + + + + + + | | 2022-07-09 | [facility] | | (missing) | (missing) | | (unavailable | 08:00:07 | [facility] | [id number] | | | | ) | | [facility] | 00K | | | + + + + + + + + + | Result panel 2554 | + + + + + + + + + | | 2022-07-09 | [facility] | | (missing) | (missing) | | (unavailable | 08:00:07 | [facility] | [id number] | | | | ) | | [facility] | 008 | | | + + + + + + + + + | Result panel 2555 | + + + + + +--------+ + + | | 2022-07-09 | [facility] | 12.8 | (missing) | (missing) | | (unavailable | 08:00:08 | [facility] | | | | + + + +--------+ + + + + | Result panel 2556 | + + + + + +-----+ + + | | 2022-07-09 | [facility] | A | (missing) | (missing) | | (unavailable | 08:00:08 | [facility] | | | | + + + +-----+ + + + + | Result panel 2557 | + + + + + + + + + | | 2022-07-09 | [facility] | POSITIVE | (missing) | (missing) | | (unavailable | 08:00:08 | [facility] | [facility] | | | | + + + + + + + + + | Result panel 2558 | + + + + + + + + + | | 2022-07-09 | [facility] | NEGATIVE | (missing) | (missing) | | (unavailable | 08:00:08 | [facility] | | | | + + + + + + + + + | Result panel 2559 | + + + + + +--------+ + + | | 2022-07-09 | [facility] | 12.8 | (missing) | (missing) | | (unavailable | 08:00:08 | [facility] | | | | + + + +--------+ + + + + | Result panel 2560 | + + + + + + + + + | | 2022-07-09 | [facility] | COMPATIBLE | (missing) | (missing) | | (unavailable | 08:00:08 | [facility] | | | | + + + + + + + + + | Result panel 2561 | + + + + + + + + + | | 2022-07-09 | [facility] | COMPATIBLE | (missing) | (missing) | | (unavailable | 08:00:08 | [facility] | | | | + + + + + + + + + | Result panel 2562 | + + + + + + + + + | | 2022-07-09 | [facility] | COMPATIBLE | (missing) | (missing) | | (unavailable | 08:00:08 | [facility] | | | | + + + + + + + + + | Result panel 2563 | + + + + + + + + + | | 2022-07-09 | [facility] | COMPATIBLE | (missing) | (missing) | | (unavailable | 08:00:08 | [facility] | | | | + + + + + + + + + | Result panel 2564 | + + + + + + + + + | | 2022-07-09 | [facility] | | (missing) | (missing) | | (unavailable | 08:00:08 | [facility] | [phone] | | | | ) | | [facility] | 00H | | | + + + + + + + + + | Result panel 2565 | + + + + + + + + + | | 2022-07-09 | [facility] | | (missing) | (missing) | | (unavailable | 08:00:08 | [facility] | [id number] | | | | ) | | Hospital | 00D | | | + + + + + + + + + | Result panel 2566 | + + + + + + + + + | | 2022-07-09 | [facility] | | (missing) | (missing) | | (unavailable | 08:00:08 | [facility] | [id number] | | | | ) | | [facility] | 00O | | | + + + + + + + + + | Result panel 2567 | + + + + + + + + + | | 2022-07-09 | [facility] | | (missing) | (missing) | | (unavailable | 08:00:08 | [facility] | [id number] | | | | ) | | [facility] | 00K | | | + + + + + + + + + | Result panel 2568 | + + + + + + + + + | | 2022-07-09 | [facility] | | (missing) | (missing) | | (unavailable | 08:00:08 | [facility] | [id number] | | | | ) | | [facility] | 008 | | | + + + + + + + + + | Result panel 2569 | + + + + + +------+ + + | | 2022-07-09 | [facility] | 95 | (missing) | (missing) | | (unavailable | 14:05:07 | [facility] | | | | + + + +------+ + + + + | Result panel 2570 | + + + + + +-----+ + + | | 2022-07-09 | [facility] | 2 | (missing) | (missing) | | (unavailable | 14:05:07 | [facility] | | | | + + + +-----+ + + + + | Result panel 2571 | + + + + + +-----+ + + | | 2022-07-09 | [facility] | 2 | (missing) | (missing) | | (unavailable | 14:05:07 | [facility] | | | | + + + +-----+ + + + + | Result panel 2572 | + + + + + +-----+ + + | | 2022-07-09 | [facility] | 1 | (missing) | (missing) | | (unavailable | 14:05:07 | [facility] | | | | + + + +-----+ + + + + | Result panel 2573 | + + + + + + + + + | | 2022-07-09 | [facility] | SEE | (missing) | (missing) | | (unavailable | 14:05:07 | [facility] | COMMENTS | | | | ) | | Hospital | | | | + + + + + + + + + | Result panel 2574 | + + + + + +------+ + + | | 2022-07-09 | [facility] | 95 | (missing) | (missing) | | (unavailable | 14:05:07 | [facility] | [facility] | | | | + + + +------+ + + + + | Result panel 2575 | + + + + + +-----+ + + | | 2022-07-09 | [facility] | 2 | (missing) | (missing) | | (unavailable | 14:05:07 | [facility] | | | | + + + +-----+ + + + + | Result panel 2576 | + + + + + +-----+ + + | | 2022-07-09 | [facility] | 2 | (missing) | (missing) | | (unavailable | 14:05:07 | [facility] | [facility] | | | | + + + +-----+ + + + + | Result panel 2577 | + + + + + +-----+ + + | | 2022-07-09 | [facility] | 1 | (missing) | (missing) | | (unavailable | 14:05:07 | [facility] | [facility] | | | | + + + +-----+ + + + + | Result panel 2578 | + + + + + + + + + | | 2022-07-09 | [facility] | SEE | (missing) | (missing) | | (unavailable | 14:05:07 | [facility] COMMENTS | | | | ) | | [facility] | | | | + + + + + + + + + | Result panel 2579 | + + + + + + + + + | | 2022-07-09 | [facility] | SEE | (missing) | (missing) | | (unavailable | 14:05:07 | [facility] COMMENTS | | | | ) | | Hospital | | | | + + + + + + + + + | Result panel 2580 | + + + + + + + + + | | 2022-07-09 | [facility] | SEE | (missing) | (missing) | | (unavailable | 14:05:07 | [facility] COMMENTS | | | | ) | | [facility] | | | | + + + + + + + + + | Result panel 2581 | + + + + + +------+ + + | | 2022-07-09 | [facility] | 95 | (missing) | (missing) | | (unavailable | 14:05:07 | [facility] | [facility] | | | | + + + +------+ + + + + | Result panel 2582 | + + + + + +-----+ + + | | 2022-07-09 | [facility] | 2 | (missing) | (missing) | | (unavailable | 14:05:07 | [facility] | [facility] | | | | + + + +-----+ + + + + | Result panel 2583 | + + + + + +-----+ + + | | 2022-07-09 | [facility] | 2 | (missing) | (missing) | | (unavailable | 14:05:07 | [facility] | | | | + + + +-----+ + + + + | Result panel 2584 | + + + + + +-----+ + + | | 2022-07-09 | [facility] | 1 | (missing) | (missing) | | (unavailable | 14:05:07 | [facility] | [facility] | | | | + + + +-----+ + + + + | Result panel 2585 | + + + + + + + + + | | 2022-07-09 | [facility] | SEE | (missing) | (missing) | | (unavailable | 14:05:07 | [facility] | COMMENTS | | | | ) | | [facility] | | | | + + + + + + + + + | Result panel 2586 | + + + + + +------+ + + | | 2022-07-09 | [facility] | 95 | (missing) | (missing) | | (unavailable | 14::07 | [facility] | | [facility] | | | | + + + +------+ + + + + | Result panel 2587 | + + + + + +-----+ + + | | 2022-07-09 | [facility] | 2 | (missing) | (missing) | | (unavailable | 14::07 | [facility] | | | | + + + +-----+ + + + + | Result panel 2588 | + + + + + +-----+ + + | | 2022-07-09 | [facility] | 2 | (missing) | (missing) | | (unavailable | 14::07 | [facility] | | | | + + + +-----+ + + + + | Result panel 2589 | + + + + + +-----+ + + | | 2022-07-09 | [facility] | 1 | (missing) | (missing) | | (unavailable | 14::07 | [facility] | | [facility] | | | | + + + +-----+ + + + + | Result panel 2590 | + + + + + + + + + | | 2022-07-09 | [facility] | SEE | (missing) | (missing) | | (unavailable | 14:05:07 | [facility] COMMENTS | | | | ) | | [facility] | | | | + + + + + + + + + | Result panel 2591 | + + + + + +------+ + + | | 2022-07-09 | [facility] | 95 | (missing) | (missing) | | (unavailable | 14:05:08 | [facility] | | [facility] | | | | + + + +------+ + + + + | Result panel 2592 | + + + + + +-----+ + + | | 2022-07-09 | [facility] | 2 | (missing) | (missing) | | (unavailable | 14:05:08 | [facility] | | [facility] | | | | + + + +-----+ + + + + | Result panel 2593 | + + + + + +-----+ + + | | 2022-07-09 | [facility] | 2 | (missing) | (missing) | | (unavailable | 14:05:08 | [facility] | [facility] | | | | + + + +-----+ + + + + | Result panel 2594 | + + + + + +-----+ + + | | 2022-07-09 | [facility] | 1 | (missing) | (missing) | | (unavailable | 14:05:08 | [facility] | [facility] | | | | + + + +-----+ + + + + | Result panel 2595 | + + + + + + + + + | | 2022-07-09 | [facility] | SEE | (missing) | (missing) | | (unavailable | 14:05:08 | [facility] COMMENTS | | | | ) | | [facility] | | | | + + + + + + + + + | Result panel 2596 | + + + + + +------+ + + | | 2022-07-09 | [facility] | 95 | (missing) | (missing) | | (unavailable | 14:05:08 | [facility] | | [facility] | | | | + + + +------+ + + + + | Result panel 2597 | + + + + + +-----+ + + | | 2022-07-09 | [facility] | 2 | (missing) | (missing) | | (unavailable | 14:05:08 | [facility] | [facility] | | | | + + + +-----+ + + + + | Result panel 2598 | + + + + + +-----+ + + | | 2022-07-09 | [facility] | 2 | (missing) | (missing) | | (unavailable | 14:05:08 | [facility] | [facility] | | | | + + + +-----+ + + + + | Result panel 2599 | + + + + + +-----+ + + | | 2022-07-09 | [facility] | 1 | (missing) | (missing) | | (unavailable | 14:05:08 | [facility] | [facility] | | | | + + + +-----+ + + + + | Result panel 2600 | + + + + + + + + + | | 2022-07-09 | [facility] | SEE | (missing) | (missing) | | (unavailable | 14:05:08 | [facility] COMMENTS | | | | ) | | [facility] | | | | + + + + + + + + + | Result panel 2601 | + + + + + +-------+---------+ + | | 2022-07-10 | [facility] | 196 | mg/dL | (missing) | | (unavailable | 08:50:08 | [facility] | | | | + + + +-------+---------+ + + + | Result panel 2602 | + + + + + +------+---------+ + | | 2022-07-10 | [facility] | 12 | mg/dL | (missing) | | (unavailable | 08:50:08 | [facility] | | | | + + + +------+---------+ + + + | Result panel 2603 | + + + + + +--------+---------+ + | | 2022-07-10 | [facility] | 0.83 | mg/dL | (missing) | | (unavailable | 08:50:08 | [facility] | | | | + + + +--------+---------+ + + + | Result panel 2604 | + + + + + +------+ + + | | 2022-07-10 | [facility] | 96 | (missing) | (missing) | | (unavailable | 08:50:08 | [facility] | | | | + + + +------+ + + + + | Result panel 2605 | + + + + + +---------+ + + | | 2022-07-10 | [facility] | 14.45 | (missing) | (missing) | | (unavailable | 08:50:08 | [facility] | | | | + + + +---------+ + + + + | Result panel 2606 | + + + + + +-------+ + + | | 2022-07-10 | [facility] | 139 | (missing) | (missing) | | (unavailable | 08:50:08 | [facility] | | | | + + + +-------+ + + + + | Result panel 2607 | + + + + + +-------+ + + | | 2022-07-10 | [facility] | 3.9 | (missing) | (missing) | | (unavailable | 08:50:08 | [facility] | | | | + + + +-------+ + + + + | Result panel 2608 | + + + + + +-------+ + + | | 2022-07-10 | [facility] | 106 | (missing) | (missing) | | (unavailable | 08:50:08 | [facility] | | | | + + + +-------+ + + + + | Result panel 2609 | + + + + + +------+ + + | | 2022-07-10 | [facility] | 24 | (missing) | (missing) | | (unavailable | 08:50:08 | [facility] | | | | + + + +------+ + + + + | Result panel 2610 | + + + + + +--------+ + + | | 2022-07-10 | [facility] | 12.9 | (missing) | (missing) | | (unavailable | 08:50:08 | [facility] | | | | + + + +--------+ + + + + | Result panel 2611 | + + + + + +-------+---------+ + | | 2022-07-10 | [facility] | 7.6 | mg/dL | (missing) | | (unavailable | 08:50:08 | [facility] | | | | + + + +-------+---------+ + + + | Result panel 2612 | + + + + + +-------+ + + | | 2022-07-10 | [facility] | 4.5 | (missing) | (missing) | | (unavailable | 08:50:08 | [facility] | | | | + + + +-------+ + + + + | Result panel 2613 | + + + + + +-------+ + + | | 2022-07-10 | [facility] | 2.1 | (missing) | (missing) | | (unavailable | 08:50:08 | [facility] | | | | + + + +-------+ + + + + | Result panel 2614 | + + + + + +-------+ + + | | 2022-07-10 | [facility] | 2.4 | (missing) | (missing) | | (unavailable | 08:50:08 | [facility] | | | | + + + +-------+ + + + + | Result panel 2615 | + + + + + +--------+ + + | | 2022-07-10 | [facility] | 0.88 | (missing) | (missing) | | (unavailable | 08:50:08 | [facility] | | | | + + + +--------+ + + + + | Result panel 2616 | + + + + + +-------+ + + | | 2022-07-10 | [facility] | 0.5 | (missing) | (missing) | | (unavailable | 08:50:08 | [facility] | | | | + + + +-------+ + + + + | Result panel 261 | + + + + + +------+ + + | | 2022-07-10 | [facility] | 46 | (missing) | (missing) | | (unavailable | 08:50:08 | [facility] | | | | + + + +------+ + + + + | Result panel 2618 | + + + + + +------+ + + | | 2022-07-10 | [facility] | 54 | (missing) | (missing) | | (unavailable | 08:50:08 | [facility] | [facility] | | | | + + + +------+ + + + + | Result panel 2619 | + + + + + +------+ + + | | 2022-07-10 | [facility] | 87 | (missing) | (missing) | | (unavailable | 08:50:08 | [facility] | [facility] | | | | + + + +------+ + + + + | Result panel 262 | + + + + + +--------+ + + | | 2022-07-11 | [facility] | 12.0 | (missing) | (missing) | | (unavailable | 09:00:08 | [facility] | [facility] | | | | + + + +--------+ + + + + | Result panel 262 | + + + + + +--------+ + + | | 2022-07-11 | [facility] | 3.20 | (missing) | (missing) | | (unavailable | 09:00:08 | [facility] | | | | + + + +--------+ + + + + | Result panel 262 | + + + + + +-------+ + + | | 2022-07-11 | [facility] | 9.2 | (missing) | (missing) | | (unavailable | 09:00:08 | [facility] | | | | + + + +-------+ + + + + | Result panel 262 | + + + + + +--------+ + + | | 2022-07-11 | [facility] | 27.4 | (missing) | (missing) | | (unavailable | 09:00:08 | [facility] | | | | + + + +--------+ + + + + | Result panel 2624 | + + + + + +--------+ + + | | 2022-07-11 | [facility] | 85.7 | (missing) | (missing) | | (unavailable | 09:00:08 | [facility] | | | | + + + +--------+ + + + + | Result panel 2625 | + + + + + +--------+ + + | | 2022-07-11 | [facility] | 28.7 | (missing) | (missing) | | (unavailable | 09:00:08 | [facility] | | | | + + + +--------+ + + + + | Result panel 2626 | + + + + + +--------+ + + | | 2022-07-11 | [facility] | 33.5 | (missing) | (missing) | | (unavailable | 09:00:08 | [facility] | | | | + + + +--------+ + + + + | Result panel 2627 | + + + + + +--------+ + + | | 2022-07-11 | [facility] | 15.2 | (missing) | (missing) | | (unavailable | 09:00:08 | [facility] | | | | + + + +--------+ + + + + | Result panel 2628 | + + + + + +-------+ + + | | 2022-07-11 | [facility] | 204 | (missing) | (missing) | | (unavailable | 09:00:08 | [facility] | | | | + + + +-------+ + + + + | Result panel 2629 | + + + + + +--------+ + + | | 2022-07-11 | [facility] | 71.4 | (missing) | (missing) | | (unavailable | 09:00:08 [facility] | | | | + + + +--------+ + + + + | Result panel 2630 | + + + + + +--------+ + + | | 2022-07-11 | [facility] | 18.4 | (missing) | (missing) | | (unavailable | 09:00:08 | [facility] | | | | + + + +--------+ + + + + | Result panel 2631 | + + + + + +-------+ + + | | 2022-07-11 | [facility] | 8.1 | (missing) | (missing) | | (unavailable | 09:00:08 [facility] | | | | + + + +-------+ + + + + | Result panel 2632 | + + + + + +-------+ + + | | 2022-07-11 | [facility] | 1.5 | (missing) | (missing) | | (unavailable | 09:00:08 [facility] | | | | + + + +-------+ + + + + | Result panel 2633 | + + + + + +-------+ + + | | 2022-07-11 | [facility] | 0.6 | (missing) | (missing) | | (unavailable | 09:00:08 | [facility] | | | | + + + +-------+ + + + + | Result panel 2634 | + + + + + +------+ + + | | 2022-07-11 | [facility] | 91 | (missing) | (missing) | | (unavailable | 11:40:08 | [facility] | | | | + + + +------+ + + + + | Result panel 2635 | + + + + + +--------+ + + | | 2022-07-12 | [facility] | 11.9 | (missing) | (missing) | | (unavailable | 15:52:07 | [facility] | | | | + + + +--------+ + + + + | Result panel 2636 | + + + + + +--------+ + + | | 2022-07-12 | [facility] | 0.92 | (missing) | (missing) | | (unavailable | 15:52:07 [facility] | | | | + + + +--------+ + + + + | Result panel 2637 | + + + + + +--------+ + + | | 2022-07-12 | [facility] | 24.9 | (missing) | (missing) | | (unavailable | 15:52:07 [facility] | | | | + + + +--------+ + + + + | Result panel 2638 | + + + + + +--------+ + + | | 2022-07-12 | [facility] | 11.9 | (missing) | (missing) | | (unavailable | 15:52:07 [facility] | | | | + + + +--------+ + + + + | Result panel 2639 | + + + + + +--------+ + + | | 2022-07-12 | [facility] | 0.92 | (missing) | (missing) | | (unavailable | 15:52:07 [facility] | | | | + + + +--------+ + + + + | Result panel 2640 | + + + + + +--------+ + + | | 2022-07-12 | [facility] | 24.9 | (missing) | (missing) | | (unavailable | 15:52:07 [facility] | | | | + + + +--------+ + + + + | Result panel 2641 | + + + + + +--------+ + + | | 2022-07-12 | [facility] | 11.9 | (missing) | (missing) | | (unavailable | 15:52:07 [facility] | | | | + + + +--------+ + + + + | Result panel 2642 | + + + + + +--------+ + + | | 2022-07-12 | [facility] | 0.92 | (missing) | (missing) | | (unavailable | 15:52:07 [facility] | | | | + + + +--------+ + + + + | Result panel 2643 | + + + + + +--------+ + + | | 2022-07-12 | [facility] | 24.9 | (missing) | (missing) | | (unavailable | 15:52:07 | [facility] | | | | + + + +--------+ + + + + | Result panel 2644 | + + + + + +--------+ + + | | 2022-07-12 | [facility] | 11.9 | (missing) | (missing) | | (unavailable | 15:52:07 | [facility] | | | | + + + +--------+ + + + + | Result panel 2645 | + + + + + +--------+ + + | | 2022-07-12 | [facility] | 0.92 | (missing) | (missing) | | (unavailable | 15:52:07 | [facility] | | | | + + + +--------+ + + + + | Result panel 2646 | + + + + + +--------+ + + | | 2022-07-12 | [facility] | 24.9 | (missing) | (missing) | | (unavailable | 15:52:07 [facility] | | | | + + + +--------+ + + + + | Result panel 2647 | + + + + + +--------+ + + | | 2022-07-12 | [facility] | 11.9 | (missing) | (missing) | | (unavailable | 15:52:07 [facility] | | | | + + + +--------+ + + + + | Result panel 2648 | + + + + + +--------+ + + | | 2022-07-12 | [facility] | 0.92 | (missing) | (missing) | | (unavailable | 15:52:07 [facility] | | | | + + + +--------+ + + + + | Result panel 2649 | + + + + + +--------+ + + | | 2022-07-12 | [facility] | 24.9 | (missing) | (missing) | | (unavailable | 15:52:07 [facility] | | | | + + + +--------+ + + + + | Result panel 2650 | + + + + + +--------+ + + | | 2022-07-12 | [facility] | 11.9 | (missing) | (missing) | | (unavailable | 15:52:07 [facility] | | | | + + + +--------+ + + + + | Result panel 265 | + + + + + +--------+ + + | | 2022-07-12 | [facility] | 0.92 | (missing) | (missing) | | (unavailable | 15:52:07 [facility] | | | | + + + +--------+ + + + + | Result panel 2652 | + + + + + +--------+ + + | | 2022-07-12 | [facility] | 24.9 | (missing) | (missing) | | (unavailable | 15:52:07 [facility] | | | | + + + +--------+ + + + + | Result panel 265 | + + + + + +--------+ + + | | 2022-07-12 | [facility] | 11.9 | (missing) | (missing) | | (unavailable | 15:52:07 [facility] | | | | + + + +--------+ + + + + | Result panel 2654 | + + + + + +--------+ + + | | 2022-07-12 | [facility] | 0.92 | (missing) | (missing) | | (unavailable | 15:52:07 [facility] | | | | + + + +--------+ + + + + | Result panel 2655 | + + + + + +--------+ + + | | 2022-07-12 | [facility] | 24.9 | (missing) | (missing) | | (unavailable | 15:52:07 | [facility] | | | | + + + +--------+ + + + + | Result panel 2656 | + + + + + +--------+ + + | | 2022-07-12 | [facility] | 11.9 | (missing) | (missing) | | (unavailable | 15:52:08 | [facility] | | | | + + + +--------+ + + + + | Result panel 2657 | + + + + + +--------+ + + | | 2022-07-12 | [facility] | 0.92 | (missing) | (missing) | | (unavailable | 15:52:08 | [facility] | | | | + + + +--------+ + + + + | Result panel 2658 | + + + + + +--------+ + + | | 2022-07-12 | [facility] | 24.9 | (missing) | (missing) | | (unavailable | 15:52:08 | [facility] | | | | + + + +--------+ + + + + | Result panel 2659 | + + + + + +-----+ + + | | 2022-07-12 | [facility] | A | (missing) | (missing) | | (unavailable | 15:52:08 | [facility] | | | | + + + +-----+ + + + + | Result panel 2660 | + + + + + + + + + | | 2022-07-12 | [facility] | POSITIVE | (missing) | (missing) | | (unavailable | 15:52:08 | [facility] | | | | + + + + + + + + + | Result panel 2661 | + + + + + + + + + | | 2022-07-12 | [facility] | NEGATIVE | (missing) | (missing) | | (unavailable | 15:52:08 | [facility] | | | | + + + + + + + + + | Result panel 2662 | + + + + + + + + + | | 2022-07-12 | [facility] | BLOOD IN | (missing) | (missing) | | (unavailable | 15:52:08 | [facility] | [facility] | | | | + + + + + + + + + | Result panel 2663 | + + + + + + + + + | | 2022-07-12 | [facility] | NEGATIVE | (missing) | (missing) | | (unavailable | 16:10:07 | [facility] | [facility] | | | | + + + + + + + + + | Result panel 2664 | + + + + + + + + + | | 2022-07-12 | [facility] | NEGATIVE | (missing) | (missing) | | (unavailable | 16:10:07 | [facility] | [facility] | | | | + + + + + + + + + | Result panel 2665 | + + + + + + + + + | | 2022-07-12 | [facility] | NEGATIVE | (missing) | (missing) | | (unavailable | 16:10:07 | [facility] | | | | + + + + + + + + + | Result panel 2666 | + + + + + + + + + | | 2022-07-12 | [facility] | NEGATIVE | (missing) | (missing) | | (unavailable | 16:10:07 | [facility] | | | | + + + + + + + + + | Result panel 2667 | + + + + + + + + + | | 2022-07-12 | [facility] | NEGATIVE | (missing) | (missing) | | (unavailable | 16:10:07 | [facility] | | | | + + + + + + + + + | Result panel 2668 | + + + + + + + + + | | 2022-07-12 | [facility] | NEGATIVE | (missing) | (missing) | | (unavailable | 16:10:07 | [facility] | | | | + + + + + + + + + | Result panel 2669 | + + + + + + + + + | | 2022-07-12 | [facility] | NEGATIVE | (missing) | (missing) | | (unavailable | 16:10:07 | [facility] | | | | + + + + + + + + + | Result panel 2670 | + + + + + + + + + | | 2022-07-12 | [facility] | NEGATIVE | (missing) | (missing) | | (unavailable | 16:10:07 | [facility] | | | | + + + + + + + + + | Result panel 2671 | + + + + + + + + + | | 2022-07-12 | [facility] | NEGATIVE | (missing) | (missing) | | (unavailable | 16:10:07 | [facility] | | | | + + + + + + + + + | Result panel 2672 | + + + + + + + + + | | 2022-07-12 | [facility] | NEGATIVE | (missing) | (missing) | | (unavailable | 16:10:07 | [facility] | | | | + + + + + + + + + | Result panel 2673 | + + + + + + + + + | | 2022-07-12 | [facility] | NEGATIVE | (missing) | (missing) | | (unavailable | 16:10:07 | [facility] | | | | + + + + + + + + + | Result panel 2674 | + + + + + + + + + | | 2022-07-12 | [facility] | NEGATIVE | (missing) | (missing) | | (unavailable | 16:10:07 | [facility] | | | | + + + + + + + + + | Result panel 2675 | + + + + + + + + + | | 2022-07-12 | [facility] | NEGATIVE | (missing) | (missing) | | (unavailable | 16:10:07 | [facility] | | | | + + + + + + + + + | Result panel 2676 | + + + + + + + + + | | 2022-07-12 | [facility] | NEGATIVE | (missing) | (missing) | | (unavailable | 16:10:07 | [facility] | | | | + + + + + + + + + | Result panel 2677 | + + + + + + + + + | | 2022-07-12 | [facility] | NEGATIVE | (missing) | (missing) | | (unavailable | 16:10:07 | [facility] | | | | + + + + + + + + + | Result panel 2678 | + + + + + + + + + | | 2022-07-12 | [facility] | NEGATIVE | (missing) | (missing) | | (unavailable | 16:10:07 | [facility] | | | | + + + + + + + + + | Result panel 2679 | + + + + + + + + + | | 2022-07-12 | [facility] | NEGATIVE | (missing) | (missing) | | (unavailable | 16:10:07 | [facility] | | | | + + + + + + + + + | Result panel 2680 | + + + + + + + + + | | 2022-07-12 | [facility] | NEGATIVE | (missing) | (missing) | | (unavailable | 16:10:07 | [facility] | | | | + + + + + + + + + | Result panel 2681 | + + + + + + + + + | | 2022-07-12 | [facility] | NEGATIVE | (missing) | (missing) | | (unavailable | 16:10:07 | [facility] | | | | + + + + + + + + + | Result panel 2682 | + + + + + + + + + | | 2022-07-12 | [facility] | NEGATIVE | (missing) | (missing) | | (unavailable | 16:10:07 | [facility] | | | | + + + + + + + + + | Result panel 2683 | + + + + + + + + + | | 2022-07-12 | [facility] | NEGATIVE | (missing) | (missing) | | (unavailable | 16:10:07 | [facility] | | | | + + + + + + + + + | Result panel 2684 | + + + + + + + + + | | 2022-07-12 | [facility] | NEGATIVE | (missing) | (missing) | | (unavailable | 16:10:07 | [facility] | | | | + + + + + + + + + | Result panel 2685 | + + + + + + + + + | | 2022-07-12 | [facility] | NEGATIVE | (missing) | (missing) | | (unavailable | 16:10:07 | [facility] | | | | + + + + + + + + + | Result panel 2686 | + + + + + + + + + | | 2022-07-12 | [facility] | NEGATIVE | (missing) | (missing) | | (unavailable | 16:10:07 | [facility] | | | | + + + + + + + + + | Result panel 2687 | + + + + + + + + + | | 2022-07-12 | [facility] | NEGATIVE | (missing) | (missing) | | (unavailable | 16:10:07 | [facility] | | | | + + + + + + + + + | Result panel 2688 | + + + + + + + + + | | 2022-07-12 | [facility] | NEGATIVE | (missing) | (missing) | | (unavailable | 16:10:07 | [facility] | | | | + + + + + + + + + | Result panel 268 | + + + + + + + + + | | 2022-07-12 | [facility] | NEGATIVE | (missing) | (missing) | | (unavailable | 16:10:07 | [facility] | | | | + + + + + + + + + | Result panel 2690 | + + + + + + + + + | | 2022-07-12 | [facility] | NEGATIVE | (missing) | (missing) | | (unavailable | 16:10:07 | [facility] | | | | + + + + + + + + + | Result panel 2691 | + + + + + + + + + | | 2022-07-12 | [facility] | NEGATIVE | (missing) | (missing) | | (unavailable | 16:10:07 | [facility] | | | | + + + + + + + + + | Result panel 2692 | + + + + + + + + + | | 2022-07-12 | [facility] | NEGATIVE | (missing) | (missing) | | (unavailable | 16:10:07 | [facility] | | | | + + + + + + + + + | Result panel 2693 | + + + + + + + + + | | 2022-07-12 | [facility] | NEGATIVE | (missing) | (missing) | | (unavailable | 16:10:07 | [facility] | | | | + + + + + + + + + | Result panel 2694 | + + + + + + + + + | | 2022-07-12 | [facility] | NEGATIVE | (missing) | (missing) | | (unavailable | 16:10:07 | [facility] | | | | + + + + + + + + + | Result panel 2695 | + + + + + + + + + | | 2022-07-12 | [facility] | NEGATIVE | (missing) | (missing) | | (unavailable | 16:10:07 | [facility] | | | | + + + + + + + + + | Result panel 2696 | + + + + + + + + + | | 2022-07-12 | [facility] | NEGATIVE | (missing) | (missing) | | (unavailable | 16:10:07 | [facility] | | | | + + + + + + + + + | Result panel 2697 | + + + + + + + + + | | 2022-07-12 | [facility] | NEGATIVE | (missing) | (missing) | | (unavailable | 16:10:07 | [facility] | | | | + + + + + + + + + | Result panel 2698 | + + + + + + + + + | | 2022-07-12 | [facility] | NEGATIVE | (missing) | (missing) | | (unavailable | 16:10:07 | [facility] | | | | + + + + + + + + + | Result panel 2699 | + + + + + + + + + | | 2022-07-12 | [facility] | NEGATIVE | (missing) | (missing) | | (unavailable | 16:10:07 | [facility] | | | | + + + + + + + + + | Result panel 2700 | + + + + + + + + + | | 2022-07-12 | [facility] | NEGATIVE | (missing) | (missing) | | (unavailable | 16:10:07 | [facility] | | | | + + + + + + + + + | Result panel 2701 | + + + + + + + + + | | 2022-07-12 | [facility] | NEGATIVE | (missing) | (missing) | | (unavailable | 16:10:07 | [facility] | | | | + + + + + + + + + | Result panel 2702 | + + + + + + + + + | | 2022-07-12 | [facility] | YELLOW | (missing) | (missing) | | (unavailable | 16:10:07 | [facility] | | | | + + + + + + + + + | Result panel 2703 | + + + + + +---------+ + + | | 2022-07-12 | [facility] | CLEAR | (missing) | (missing) | | (unavailable | 16:10:07 | [facility] | | | | + + + +---------+ + + + + | Result panel 2704 | + + + + + + + + + | | 2022-07-12 | [facility] | >=1000 | (missing) | (missing) | | (unavailable | 16:10:07 | [facility] | | | | + + + + + + + + + | Result panel 270 | + + + + + + + + + | | 2022-07-12 | [facility] | NEGATIVE | (missing) | (missing) | | (unavailable | 16:10:07 | [facility] | | | | + + + + + + + + + | Result panel 2706 | + + + + + + + + + | | 2022-07-12 | [facility] | NEGATIVE | (missing) | (missing) | | (unavailable | 16:10:07 | [facility] | | | | + + + + + + + + + | Result panel 2707 | + + + + + +---------+ + + | | 2022-07-12 | [facility] | 1.015 | (missing) | (missing) | | (unavailable | 16:10:07 | [facility] | | | | + + + +---------+ + + + + | Result panel 2708 | + + + + + +---------+ + + | | 2022-07-12 | [facility] | LARGE | (missing) | (missing) | | (unavailable | 16:10:07 | [facility] | | | | + + + +---------+ + + + + | Result panel 2709 | + + + + + +-------+ + + | | 2022-07-12 | [facility] | 6.5 | (missing) | (missing) | | (unavailable | 16:10:07 | [facility] | | | | + + + +-------+ + + + + | Result panel 2710 | + + + + + + + + + | | 2022-07-12 | [facility] | NEGATIVE | (missing) | (missing) | | (unavailable | 16:10:07 | [facility] | | | | + + + + + + + + + | Result panel 2711 | + + + + + + + + + | | 2022-07-12 | [facility] | NORMAL | (missing) | (missing) | | (unavailable | 16:10:07 | [facility] | | | | + + + + + + + + + | Result panel 2712 | + + + + + + + + + | | 2022-07-12 | [facility] | POSITIVE | (missing) | (missing) | | (unavailable | 16:10:07 | [facility] | | | | + + + + + + + + + | Result panel 271 | + + + + + + + + + | | 2022-07-12 | [facility] | NEGATIVE | (missing) | (missing) | | (unavailable | 16:10:07 | [facility] | | | | + + + + + + + + + | Result panel 2714 | + + + + + +-------+ + + | | 2022-07-12 | [facility] | 4-6 | (missing) | (missing) | | (unavailable | 16:10:07 | [facility] | | | | + + + +-------+ + + + + | Result panel 2715 | + + + + + +--------+ + + | | 2022-07-12 | [facility] | 7-11 | (missing) | (missing) | | (unavailable | 16:10:07 | [facility] | | | | + + + +--------+ + + + + | Result panel 2716 | + + + + + + + + + | | 2022-07-12 | [facility] | SQUAMOUS 1+ | (missing) | (missing) | | (unavailable | 16:10:07 | [facility] | | | | + + + + + + + + + | Result panel 2717 | + + + + + +------+ + + | | 2022-07-12 | [facility] | 3+ | (missing) | (missing) | | (unavailable | 16:10:07 | [facility] | | | | + + + +------+ + + + + | Result panel 2718 | + + + + + +-------+ + + | | 2022-07-12 | [facility] | Yes | (missing) | (missing) | | (unavailable | 16:10:07 | [facility] | [facility] | | | | + + + +-------+ + + + + | Result panel 2719 | + + + + + + + + + | | 2022-07-12 | [facility] | CLEAN CATCH | (missing) | (missing) | | (unavailable | 16:10:07 | [facility] | | | | + + + + + + + + + | Result panel 2720 | + + + + + + + + + | | 2022-07-12 | [facility] | NEGATIVE | (missing) | (missing) | | (unavailable | 16:10:07 | [facility] | | | | + + + + + + + + + | Result panel 2721 | + + + + + + + + + | | 2022-07-12 | [facility] | NEGATIVE | (missing) | (missing) | | (unavailable | 16:10:07 | [facility] | | | | + + + + + + + + + | Result panel 2722 | + + + + + + + + + | | 2022-07-12 | [facility] | NEGATIVE | (missing) | (missing) | | (unavailable | 16:10:07 | [facility] | | | | + + + + + + + + + | Result panel 2723 | + + + + + + + + + | | 2022-07-12 | [facility] | NEGATIVE | (missing) | (missing) | | (unavailable | 16:10:07 | [facility] | | | | + + + + + + + + + | Result panel 2724 | + + + + + + + + + | | 2022-07-12 | [facility] | NEGATIVE | (missing) | (missing) | | (unavailable | 16:10:07 | [facility] | | | | + + + + + + + + + | Result panel 2725 | + + + + + + + + + | | 2022-07-12 | [facility] | NEGATIVE | (missing) | (missing) | | (unavailable | 16:10:07 | [facility] | | | | + + + + + + + + + | Result panel 2726 | + + + + + + + + + | | 2022-07-12 | [facility] | NEGATIVE | (missing) | (missing) | | (unavailable | 16:10:07 | [facility] | | | | + + + + + + + + + | Result panel 2727 | + + + + + + + + + | | 2022-07-12 | [facility] | NEGATIVE | (missing) | (missing) | | (unavailable | 16:10:07 | [facility] | | | | + + + + + + + + + | Result panel 2728 | + + + + + + + + + | | 2022-07-12 | [facility] | NEGATIVE | (missing) | (missing) | | (unavailable | 16:10:07 | [facility] | | | | + + + + + + + + + | Result panel 2729 | + + + + + + + + + | | 2022-07-12 | [facility] | NEGATIVE | (missing) | (missing) | | (unavailable | 16:10:07 | [facility] | | | | + + + + + + + + + | Result panel 2730 | + + + + + + + + + | | 2022-07-12 | [facility] | NEGATIVE | (missing) | (missing) | | (unavailable | 16:10:07 | [facility] | | | | + + + + + + + + + | Result panel 2731 | + + + + + + + + + | | 2022-07-12 | [facility] | NEGATIVE | (missing) | (missing) | | (unavailable | 16:10:07 | [facility] | | | | + + + + + + + + + | Result panel 2732 | + + + + + + + + + | | 2022-07-12 | [facility] | NEGATIVE | (missing) | (missing) | | (unavailable | 16:10:07 | [facility] | | | | + + + + + + + + + | Result panel 2733 | + + + + + + + + + | | 2022-07-12 | [facility] | NEGATIVE | (missing) | (missing) | | (unavailable | 16:10:07 | [facility] | | | | + + + + + + + + + | Result panel 273 | + + + + + + + + + | | 2022-07-12 | [facility] | NEGATIVE | (missing) | (missing) | | (unavailable | 16:10:07 | [facility] | | | | + + + + + + + + + | Result panel 2735 | + + + + + + + + + | | 2022-07-12 | [facility] | NEGATIVE | (missing) | (missing) | | (unavailable | 16:10:07 | [facility] | | | | + + + + + + + + + | Result panel 2736 | + + + + + + + + + | | 2022-07-12 | [facility] | NEGATIVE | (missing) | (missing) | | (unavailable | 16:10:07 | [facility] | | | | + + + + + + + + + | Result panel 2737 | + + + + + + + + + | | 2022-07-12 | [facility] | NEGATIVE | (missing) | (missing) | | (unavailable | 16:10:07 | [facility] | | | | + + + + + + + + + | Result panel 2738 | + + + + + + + + + | | 2022-07-12 | [facility] | NEGATIVE | (missing) | (missing) | | (unavailable | 16:10:07 | [facility] | | | | + + + + + + + + + | Result panel 2739 | + + + + + + + + + | | 2022-07-12 | [facility] | NEGATIVE | (missing) | (missing) | | (unavailable | 16:10:07 | [facility] | | | | + + + + + + + + + | Result panel 2740 | + + + + + + + + + | | 2022-07-12 | [facility] | NEGATIVE | (missing) | (missing) | | (unavailable | 16:10:07 | [facility] | | | | + + + + + + + + + | Result panel 2741 | + + + + + + + + + | | 2022-07-12 | [facility] | NEGATIVE | (missing) | (missing) | | (unavailable | 16:10:07 | [facility] | | | | + + + + + + + + + | Result panel 2742 | + + + + + + + + + | | 2022-07-12 | [facility] | NEGATIVE | (missing) | (missing) | | (unavailable | 16:10:07 | [facility] | | | | + + + + + + + + + | Result panel 2743 | + + + + + + + + + | | 2022-07-12 | [facility] | NEGATIVE | (missing) | (missing) | | (unavailable | 16:10:07 | [facility] | | | | + + + + + + + + + | Result panel 2744 | + + + + + + + + + | | 2022-07-12 | [facility] | NEGATIVE | (missing) | (missing) | | (unavailable | 16:10:07 | [facility] | | | | + + + + + + + + + | Result panel 2745 | + + + + + + + + + | | 2022-07-12 | [facility] | NEGATIVE | (missing) | (missing) | | (unavailable | 16:10:07 | [facility] | | | | + + + + + + + + + | Result panel 2746 | + + + + + + + + + | | 2022-07-12 | [facility] | YELLOW | (missing) | (missing) | | (unavailable | 16:10:08 | [facility] | | | | + + + + + + + + + | Result panel 2747 | + + + + + +---------+ + + | | 2022-07-12 | [facility] | CLEAR | (missing) | (missing) | | (unavailable | 16:10:08 | [facility] | | | | + + + +---------+ + + + + | Result panel 2748 | + + + + + + + + + | | 2022-07-12 | [facility] | >=1000 | (missing) | (missing) | | (unavailable | 16:10:08 | [facility] | | | | + + + + + + + + + | Result panel 2749 | + + + + + + + + + | | 2022-07-12 | [facility] | NEGATIVE | (missing) | (missing) | | (unavailable | 16:10:08 | [facility] | | | | + + + + + + + + + | Result panel 2750 | + + + + + + + + + | | 2022-07-12 | [facility] | NEGATIVE | (missing) | (missing) | | (unavailable | 16:10:08 | [facility] | | | | + + + + + + + + + | Result panel 2751 | + + + + + +---------+ + + | | 2022-07-12 | [facility] | 1.015 | (missing) | (missing) | | (unavailable | 16:10:08 | [facility] | | | | + + + +---------+ + + + + | Result panel 2752 | + + + + + +---------+ + + | | 2022-07-12 | [facility] | LARGE | (missing) | (missing) | | (unavailable | 16:10:08 | [facility] | | | | + + + +---------+ + + + + | Result panel 2753 | + + + + + +-------+ + + | | 2022-07-12 | [facility] | 6.5 | (missing) | (missing) | | (unavailable | 16:10:08 | [facility] | | | | + + + +-------+ + + + + | Result panel 2754 | + + + + + + + + + | | 2022-07-12 | [facility] | NEGATIVE | (missing) | (missing) | | (unavailable | 16:10:08 | [facility] | | | | + + + + + + + + + | Result panel 2755 | + + + + + + + + + | | 2022-07-12 | [facility] | NORMAL | (missing) | (missing) | | (unavailable | 16:10:08 | [facility] | | | | + + + + + + + + + | Result panel 2756 | + + + + + + + + + | | 2022-07-12 | [facility] | POSITIVE | (missing) | (missing) | | (unavailable | 16:10:08 | [facility] | | | | + + + + + + + + + | Result panel 2757 | + + + + + + + + + | | 2022-07-12 | [facility] | NEGATIVE | (missing) | (missing) | | (unavailable | 16:10:08 | [facility] | | | | + + + + + + + + + | Result panel 2758 | + + + + + +-------+ + + | | 2022-07-12 | [facility] | 4-6 | (missing) | (missing) | | (unavailable | 16:10:08 | [facility] | | | | + + + +-------+ + + + + | Result panel 2759 | + + + + + +--------+ + + | | 2022-07-12 | [facility] | 7-11 | (missing) | (missing) | | (unavailable | 16:10:08 | [facility] | | | | + + + +--------+ + + + + | Result panel 2760 | + + + + + + + + + | | 2022-07-12 | [facility] | SQUAMOUS 1+ | (missing) | (missing) | | (unavailable | 16:10:08 | [facility] | | | | + + + + + + + + + | Result panel 2761 | + + + + + +------+ + + | | 2022-07-12 | [facility] | 3+ | (missing) | (missing) | | (unavailable | 16:10:08 | [facility] | | | | + + + +------+ + + + + | Result panel 2762 | + + + + + +-------+ + + | | 2022-07-12 | [facility] | Yes | (missing) | (missing) | | (unavailable | 16:10:08 | [facility] | | | | + + + +-------+ + + + + | Result panel 2763 | + + + + + + + + + | | 2022-07-12 | [facility] | CLEAN CATCH | (missing) | (missing) | | (unavailable | 16:10:08 | [facility] | | | | + + + + + + + + + | Result panel 2764 | + + + + + + + + + | | 2022-07-12 | [facility] | NEGATIVE | (missing) | (missing) | | (unavailable | 16:10:08 | [facility] | | | | + + + + + + + + + | Result panel 2765 | + + + + + + + + + | | 2022-07-12 | [facility] | NEGATIVE | (missing) | (missing) | | (unavailable | 16:10:08 | [facility] | | | | + + + + + + + + + | Result panel 2766 | + + + + + + + + + | | 2022-07-12 | [facility] | NEGATIVE | (missing) | (missing) | | (unavailable | 16:10:08 | [facility] | | | | + + + + + + + + + | Result panel 2767 | + + + + + + + + + | | 2022-07-12 | [facility] | NEGATIVE | (missing) | (missing) | | (unavailable | 16:10:08 | [facility] | | | | + + + + + + + + + | Result panel 2768 | + + + + + + + + + | | 2022-07-12 | [facility] | NEGATIVE | (missing) | (missing) | | (unavailable | 16:10:08 | [facility] | | | | + + + + + + + + + | Result panel 2769 | + + + + + + + + + | | 2022-07-12 | [facility] | NEGATIVE | (missing) | (missing) | | (unavailable | 16:10:08 | [facility] | | | | + + + + + + + + + | Result panel 2770 | + + + + + + + + + | | 2022-07-12 | [facility] | NEGATIVE | (missing) | (missing) | | (unavailable | 16:10:08 | [facility] | | | | + + + + + + + + + | Result panel 2771 | + + + + + + + + + | | 2022-07-12 | [facility] | NEGATIVE | (missing) | (missing) | | (unavailable | 16:10:08 | [facility] | | | | + + + + + + + + + | Result panel 2772 | + + + + + + + + + | | 2022-07-12 | [facility] | NEGATIVE | (missing) | (missing) | | (unavailable | 16:10:08 | [facility] | | | | + + + + + + + + + | Result panel 2773 | + + + + + + + + + | | 2022-07-12 | [facility] | NEGATIVE | (missing) | (missing) | | (unavailable | 16:10:08 | [facility] | | | | + + + + + + + + + | Result panel 2774 | + + + + + + + + + | | 2022-07-12 | [facility] | NEGATIVE | (missing) | (missing) | | (unavailable | 16:10:08 | [facility] | | | | + + + + + + + + + | Result panel 2775 | + + + + + + + + + | | 2022-07-12 | [facility] | NEGATIVE | (missing) | (missing) | | (unavailable | 16:10:08 | [facility] | | | | + + + + + + + + + | Result panel 2776 | + + + + + + + + + | | 2022-07-12 | [facility] | NEGATIVE | (missing) | (missing) | | (unavailable | 16:10:08 | [facility] | | | | + + + + + + + + + | Result panel 2777 | + + + + + + + + + | | 2022-07-12 | [facility] | NEGATIVE | (missing) | (missing) | | (unavailable | 16:17:07 | [facility] | | | | + + + + + + + + + | Result panel 2778 | + + + + + + + + + | | 2022-07-12 | [facility] | NEGATIVE | (missing) | (missing) | | (unavailable | 16:17:07 | [facility] | | | | + + + + + + + + + | Result panel 2779 | + + + + + + + + + | | 2022-07-12 | [facility] | NEGATIVE | (missing) | (missing) | | (unavailable | 16:17:07 | [facility] | | | | + + + + + + + + + | Result panel 2780 | + + + + + + + + + | | 2022-07-12 | [facility] | NEGATIVE | (missing) | (missing) | | (unavailable | 16:17:07 | [facility] | | | | + + + + + + + + + | Result panel 2781 | + + + + + + + + + | | 2022-07-12 | [facility] | NEGATIVE | (missing) | (missing) | | (unavailable | 16:17:07 | [facility] | | | | + + + + + + + + + | Result panel 2782 | + + + + + + + + + | | 2022-07-12 | [facility] | NEGATIVE | (missing) | (missing) | | (unavailable | 16:17:07 | [facility] | | | | + + + + + + + + + | Result panel 2783 | + + + + + + + + + | | 2022-07-12 | [facility] | NEGATIVE | (missing) | (missing) | | (unavailable | 16:17:07 | [facility] | | | | + + + + + + + + + | Result panel 2784 | + + + + + + + + + | | 2022-07-12 | [facility] | NEGATIVE | (missing) | (missing) | | (unavailable | 16:17:08 | [facility] | | | | + + + + + + + + + | Result panel 2785 | + + + + + +-------+---------+ + | | 2022-07-13 | [facility] | 4.2 | mg/dL | (missing) | | (unavailable | 04:10:07 | [facility] | | | | + + + +-------+---------+ + + + | Result panel 2786 | + + + + + +-------+---------+ + | | 2022-07-13 | [facility] | 4.2 | mg/dL | (missing) | | (unavailable | 04:10:07 | [facility] | | | | + + + +-------+---------+ + + + | Result panel 2787 | + + + + + +-------+---------+ + | | 2022-07-13 | [facility] | 4.2 | mg/dL | (missing) | | (unavailable | 04:10:07 | [facility] | | | | + + + +-------+---------+ + + + | Result panel 2788 | + + + + + +-------+---------+ + | | 2022-07-13 | [facility] | 4.2 | mg/dL | (missing) | | (unavailable | 04:10:07 | [facility] | | | | [facility] | | | | + + + +-------+---------+ + + + | Result panel 2789 | + + + + + +-------+---------+ + | | 2022-07-13 | [facility] | 4.2 | mg/dL | (missing) | | (unavailable | 04:10:07 | [facility] | | | | + + + +-------+---------+ + + + | Result panel 2790 | + + + + + +-------+---------+ + | | 2022-07-13 | [facility] | 4.2 | mg/dL | (missing) | | (unavailable | 04:10:07 | [facility] | | | | + + + +-------+---------+ + + + | Result panel 2791 | + + + + + +-------+---------+ + | | 2022-07-13 | [facility] | 4.2 | mg/dL | (missing) | | (unavailable | 04:10:07 | [facility] | | | | + + + +-------+---------+ + + + | Result panel 2792 | + + + + + +-------+---------+ + | | 2022-07-13 | [facility] | 4.2 | mg/dL | (missing) | | (unavailable | 04:10:08 | [facility] | | | | + + + +-------+---------+ + + + | Result panel 2793 | + + + + + +--------+ + + | | 2022-07-14 | [facility] | 73.5 | (missing) | (missing) | | (unavailable | 05:25:07 | [facility] | | | | + + + +--------+ + + + + | Result panel 2794 | + + + + + +--------+ + + | | 2022-07-14 | [facility] | 16.8 | (missing) | (missing) | | (unavailable | 05:25:07 | [facility] | | | | + + + +--------+ + + + + | Result panel 2795 | + + + + + +-------+ + + | | 2022-07-14 | [facility] | 6.9 | (missing) | (missing) | | (unavailable | 05:25:07 | [facility] | | | | + + + +-------+ + + + + | Result panel 2796 | + + + + + +-------+ + + | | 2022-07-14 | [facility] | 2.3 | (missing) | (missing) | | (unavailable | 05:25:07 | [facility] | | | | + + + +-------+ + + + + | Result panel 2797 | + + + + + +-------+ + + | | 2022-07-14 | [facility] | 0.5 | (missing) | (missing) | | (unavailable | 05:25:07 | [facility] | | | | + + + +-------+ + + + + | Result panel 2798 | + + + + + +-------+---------+ + | | 2022-07-14 | [facility] | 1.5 | mg/dL | (missing) | | (unavailable | 05:25:07 | [facility] | | | | + + + +-------+---------+ + + + | Result panel 2799 | + + + + + +-------+---------+ + | | 2022-07-14 | [facility] | 1.5 | mg/dL | (missing) | | (unavailable | 05:25:07 | [facility] | | | | + + + +-------+---------+ + + + | Result panel 2800 | + + + + + +-------+ + + | | 2022-07-14 | [facility] | 8.2 | (missing) | (missing) | | (unavailable | 05:25:08 | [facility] | | | | + + + +-------+ + + + + | Result panel 2801 | + + + + + +--------+ + + | | 2022-07-14 | [facility] | 3.66 | (missing) | (missing) | | (unavailable | 05:25:08 | [facility] | | | | + + + +--------+ + + + + | Result panel 2802 | + + + + + +--------+ + + | | 2022-07-14 | [facility] | 10.5 | (missing) | (missing) | | (unavailable | 05:25:08 | [facility] | | | | + + + +--------+ + + + + | Result panel 2803 | + + + + + +--------+ + + | | 2022-07-14 | [facility] | 31.9 | (missing) | (missing) | | (unavailable | 05:25:08 | [facility] | | | | + + + +--------+ + + + + | Result panel 2804 | + + + + + +--------+ + + | | 2022-07-14 | [facility] | 87.1 | (missing) | (missing) | | (unavailable | 05:25:08 | [facility] | | | | + + + +--------+ + + + + | Result panel 2805 | + + + + + +--------+ + + | | 2022-07-14 | [facility] | 28.6 | (missing) | (missing) | | (unavailable | 05:25:08 | [facility] | | | | + + + +--------+ + + + + | Result panel 2806 | + + + + + +--------+ + + | | 2022-07-14 | [facility] | 32.9 | (missing) | (missing) | | (unavailable | 05:25:08 | [facility] | | | | + + + +--------+ + + + + | Result panel 2807 | + + + + + +--------+ + + | | 2022-07-14 | [facility] | 14.5 | (missing) | (missing) | | (unavailable | 05:25:08 | [facility] | | | | + + + +--------+ + + + + | Result panel 2808 | + + + + + +-------+ + + | | 2022-07-14 | [facility] | 343 | (missing) | (missing) | | (unavailable | 05:25:08 | [facility] | | | | + + + +-------+ + + + + | Result panel 2809 | + + + + + +--------+ + + | | 2022-07-14 | [facility] | 73.5 | (missing) | (missing) | | (unavailable | 05:25:08 | [facility] | | | | + + + +--------+ + + + + | Result panel 2810 | + + + + + +--------+ + + | | 2022-07-14 | [facility] | 16.8 | (missing) | (missing) | | (unavailable | 05:25:08 | [facility] | | | | + + + +--------+ + + + + | Result panel 2811 | + + + + + +-------+ + + | | 2022-07-14 | [facility] | 6.9 | (missing) | (missing) | | (unavailable | 05:25:08 | [facility] | | | | + + + +-------+ + + + + | Result panel 2812 | + + + + + +-------+ + + | | 2022-07-14 | [facility] | 2.3 | (missing) | (missing) | | (unavailable | 05:25:08 | [facility] | | | | + + + +-------+ + + + + | Result panel 2813 | + + + + + +-------+ + + | | 2022-07-14 | [facility] | 0.5 | (missing) | (missing) | | (unavailable | 05:25:08 | [facility] | | | | + + + +-------+ + + + + | Result panel 2814 | + + + + + +-------+---------+ + | | 2022-07-14 | [facility] | 252 | mg/dL | (missing) | | (unavailable | 05:25:08 | [facility] | | | | + + + +-------+---------+ + + + | Result panel 2815 | + + + + + +------+---------+ + | | 2022-07-14 | [facility] | 10 | mg/dL | (missing) | | (unavailable | 05:25:08 | [facility] | | | | + + + +------+---------+ + + + | Result panel 2816 | + + + + + +--------+---------+ + | | 2022-07-14 | [facility] | 0.65 | mg/dL | (missing) | | (unavailable | 05:25:08 | [facility] | | | | + + + +--------+---------+ + + + | Result panel 2817 | + + + + + +-------+ + + | | 2022-07-14 | [facility] | 120 | (missing) | (missing) | | (unavailable | 05:25:08 | [facility] | | | | + + + +-------+ + + + + | Result panel 2818 | + + + + + +---------+ + + | | 2022-07-14 | [facility] | 15.38 | (missing) | (missing) | | (unavailable | 05:25:08 | [facility] | | | | + + + +---------+ + + + + | Result panel 2819 | + + + + + +-------+ + + | | 2022-07-14 | [facility] | 133 | (missing) | (missing) | | (unavailable | 05:25:08 | [facility] | | | | + + + +-------+ + + + + | Result panel 2820 | + + + + + +-------+ + + | | 2022-07-14 | [facility] | 4.4 | (missing) | (missing) | | (unavailable | 05:25:08 | [facility] | | | | + + + +-------+ + + + + | Result panel 2821 | + + + + + +------+ + + | | 2022-07-14 | [facility] | 99 | (missing) | (missing) | | (unavailable | 05:25:08 | [facility] | | | | + + + +------+ + + + + | Result panel 2822 | + + + + + +------+ + + | | 2022-07-14 | [facility] | 28 | (missing) | (missing) | | (unavailable | 05:25:08 | [facility] | | | | + + + +------+ + + + + | Result panel 2823 | + + + + + +--------+ + + | | 2022-07-14 | [facility] | 10.4 | (missing) | (missing) | | (unavailable | 05:25:08 | [facility] | | | | + + + +--------+ + + + + | Result panel 2824 | + + + + + +-------+---------+ + | | 2022-07-14 | [facility] | 8.9 | mg/dL | (missing) | | (unavailable | 05:25:08 | [facility] | | | | + + + +-------+---------+ + + + | Result panel 2825 | + + + + + +-------+---------+ + | | 2022-07-14 | [facility] | 1.5 | mg/dL | (missing) | | (unavailable | 05:25:08 | [facility] | | | | + + + +-------+---------+ + + + | Result panel 2826 | + + + + + +-------+ + + | | 2022-07-14 | [facility] | 6.9 | (missing) | (missing) | | (unavailable | 05:25:08 | [facility] | | | | + + + +-------+ + + + + | Result panel 2827 | + + + + + +-------+ + + | | 2022-07-14 | [facility] | 2.9 | (missing) | (missing) | | (unavailable | 05:25:08 | [facility] | | | | + + + +-------+ + + + + | Result panel 2828 | + + + + + +-------+ + + | | 2022-07-14 | [facility] | 4.0 | (missing) | (missing) | | (unavailable | 05:25:08 | [facility] | | | | + + + +-------+ + + + + | Result panel 2829 | + + + + + +--------+ + + | | 2022-07-14 | [facility] | 0.73 | (missing) | (missing) | | (unavailable | 05:25:08 | [facility] | | | | + + + +--------+ + + + + | Result panel 2830 | + + + + + +-------+ + + | | 2022-07-14 | [facility] | 0.3 | (missing) | (missing) | | (unavailable | 05:25:08 | [facility] | | | | + + + +-------+ + + + + | Result panel 2831 | + + + + + +------+ + + | | 2022-07-14 | [facility] | 21 | (missing) | (missing) | | (unavailable | 05:25:08 | [facility] | | | | + + + +------+ + + + + | Result panel 2832 | + + + + + +------+ + + | | 2022-07-14 | [facility] | 38 | (missing) | (missing) | | (unavailable | 05:25:08 | [facility] | | | | + + + +------+ + + + + | Result panel 2833 | + + + + + +------+ + + | | 2022-07-14 | [facility] | 93 | (missing) | (missing) | | (unavailable | 05:25:08 | [facility] | | | | + + + +------+ + + + + | Result panel 2834 | + + + + + +-------+ + + | | 2022-07-14 | [facility] | 216 | (missing) | (missing) | | (unavailable | 11:17:08 | [facility] | | | | + + + +-------+ + + + + | Result panel 2835 | + + + + + +-------+ + + | | 2022-07-22 | [facility] | 7.0 | (missing) | (missing) | | (unavailable | 06:25:07 | [facility] | | | | + + + +-------+ + + + + | Result panel 2836 | + + + + + +--------+ + + | | 2022-07-22 | [facility] | 3.80 | (missing) | (missing) | | (unavailable | 06:25:07 | [facility] | | | | + + + +--------+ + + + + | Result panel 2837 | + + + + + +--------+ + + | | 2022-07-22 | [facility] | 10.4 | (missing) | (missing) | | (unavailable | 06:25:07 | [facility] | | | | + + + +--------+ + + + + | Result panel 2838 | + + + + + +--------+ + + | | 2022-07-22 | [facility] | 30.8 | (missing) | (missing) | | (unavailable | 06:25:07 | [facility] | | | | + + + +--------+ + + + + | Result panel 2839 | + + + + + +--------+ + + | | 2022-07-22 | [facility] | 81.1 | (missing) | (missing) | | (unavailable | :25:07 | [facility] | | | | + + + +--------+ + + + + | Result panel 2840 | + + + + + +--------+ + + | | 2022-07-22 | [facility] | 27.4 | (missing) | (missing) | | (unavailable | ::07 | [facility] | | | | + + + +--------+ + + + + | Result panel 2841 | + + + + + +--------+ + + | | 2022-07-22 | [facility] | 33.8 | (missing) | (missing) | | (unavailable | :25:07 | [facility] | | | | + + + +--------+ + + + + | Result panel 2842 | + + + + + +--------+ + + | | 2022-07-22 | [facility] | 16.5 | (missing) | (missing) | | (unavailable | :25:07 | [facility] | | | | + + + +--------+ + + + + | Result panel 2843 | + + + + + +-------+ + + | | 2022-07-22 | [facility] | 389 | (missing) | (missing) | | (unavailable | 06:25:07 | [facility] | | | | + + + +-------+ + + + + | Result panel 2844 | + + + + + +-------+---------+ + | | 2022-07-22 | [facility] | 314 | mg/dL | (missing) | | (unavailable | 06:25:07 | [facility] | | | | + + + +-------+---------+ + + + | Result panel 2845 | + + + + + +------+---------+ + | | 2022-07-22 | [facility] | 15 | mg/dL | (missing) | | (unavailable | :25:07 | [facility] | | | | + + + +------+---------+ + + + | Result panel 2846 | + + + + + +--------+---------+ + | | 2022-07-22 | [facility] | 0.65 | mg/dL | (missing) | | (unavailable | 06:25:07 | [facility] | | | | + + + +--------+---------+ + + + | Result panel 2847 | + + + + + +-------+ + + | | 2022-07-22 | [facility] | 120 | (missing) | (missing) | | (unavailable | 06:25:07 | [facility] | | | | + + + +-------+ + + + + | Result panel 2848 | + + + + + +---------+ + + | | 2022-07-22 | [facility] | 23.07 | (missing) | (missing) | | (unavailable | 06:25:07 | [facility] | | | | + + + +---------+ + + + + | Result panel 2849 | + + + + + +-------+ + + | | 2022-07-22 | [facility] | 135 | (missing) | (missing) | | (unavailable | 06:25:07 | [facility] | | | | + + + +-------+ + + + + | Result panel 2850 | + + + + + +-------+ + + | | 2022-07-22 | [facility] | 4.6 | (missing) | (missing) | | (unavailable | 06:25:07 | [facility] | | | | + + + +-------+ + + + + | Result panel 2851 | + + + + + +-------+ + + | | 2022-07-22 | [facility] | 100 | (missing) | (missing) | | (unavailable | 06:25:07 | [facility] | | | | + + + +-------+ + + + + | Result panel 2852 | + + + + + +------+ + + | | 2022-07-22 | [facility] | 26 | (missing) | (missing) | | (unavailable | 06:25:07 [facility] | | | | + + + +------+ + + + + | Result panel 2853 | + + + + + +--------+ + + | | 2022-07-22 | [facility] | 13.6 | (missing) | (missing) | | (unavailable | ::07 | [facility] | | | | + + + +--------+ + + + + | Result panel 2854 | + + + + + +-------+---------+ + | | 2022-07-22 | [facility] | 9.0 | mg/dL | (missing) | | (unavailable | :25:07 | [facility] | | | | + + + +-------+---------+ + + + | Result panel 2855 | + + + + + +-------+ + + | | 2022-07-22 | [facility] | 7.0 | (missing) | (missing) | | (unavailable | :25:07 | [facility] | | | | + + + +-------+ + + + + | Result panel 2856 | + + + + + +-------+ + + | | 2022-07-22 | [facility] | 3.3 | (missing) | (missing) | | (unavailable | :25:07 | [facility] | | | | + + + +-------+ + + + + | Result panel 2857 | + + + + + +-------+ + + | | 2022-07-22 | [facility] | 3.7 | (missing) | (missing) | | (unavailable | 06:25:07 | [facility] | | | | + + + +-------+ + + + + | Result panel 2858 | + + + + + +--------+ + + | | 2022-07-22 | [facility] | 0.89 | (missing) | (missing) | | (unavailable | 06:25:07 [facility] | | | | + + + +--------+ + + + + | Result panel 2859 | + + + + + +-------+ + + | | 2022-07-22 | [facility] | 0.3 | (missing) | (missing) | | (unavailable | 06:25:07 [facility] | | | | + + + +-------+ + + + + | Result panel 2860 | + + + + + +------+ + + | | 2022-07-22 | [facility] | 23 | (missing) | (missing) | | (unavailable | 06:25:07 [facility] | | | | + + + +------+ + + + + | Result panel 2861 | + + + + + +------+ + + | | 2022-07-22 | [facility] | 29 | (missing) | (missing) | | (unavailable | 06:25:07 [facility] | | | | + + + +------+ + + + + | Result panel 2862 | + + + + + +------+ + + | | 2022-07-22 | [facility] | 88 | (missing) | (missing) | | (unavailable | 06:25:07 | [facility] | | | | + + + +------+ + + + + | Result panel 2863 | + + + + + +-----+ + + | | 2022-07-22 | [facility] | A | (missing) | (missing) | | (unavailable | 06:25:07 | [facility] | | | | + + + +-----+ + + + + | Result panel 2864 | + + + + + + + + + | | 2022-07-22 | [facility] | POSITIVE | (missing) | (missing) | | (unavailable | 06:25:07 | [facility] | | | | + + + + + + + + + | Result panel 2865 | + + + + + + + + + | | 2022-07-22 | [facility] | NEGATIVE | (missing) | (missing) | | (unavailable | 06:25:07 [facility] | | | | + + + + + + + + + | Result panel 2866 | + + + + + + + + + | | 2022-07-22 | [facility] | BLOOD IN | (missing) | (missing) | | (unavailable | 06:25:07 [facility] | | | | + + + + + + + + + | Result panel 2867 | + + + + + +-------+ + + | | 2022-07-22 | [facility] | 315 | (missing) | (missing) | | (unavailable | 07:46:07 | [facility] | | | | + + + +-------+ + + + + | Result panel 2868 | + + + + + +-------+ + + | | 2022-07-22 | [facility] | 315 | (missing) | (missing) | | (unavailable | 07:46:07 | [facility] | | | | + + + +-------+ + + + + | Result panel 2869 | + + + + + +-------+ + + | | 2022-07-22 | [facility] | 315 | (missing) | (missing) | | (unavailable | 07:46:07 | [facility] | | | | + + + +-------+ + + + + | Result panel 2870 | + + + + + + + + + | | 2022-07-24 | [facility] | NEGATIVE | (missing) | (missing) | | (unavailable | 19:31:07 | [facility] | | | | + + + + + + + + + | Result panel 2871 | + + + + + + + + + | | 2022-07-24 | [facility] | NEGATIVE | (missing) | (missing) | | (unavailable | 19:31:07 | [facility] | | | | + + + + + + + + + | Result panel 2872 | + + + + + + + + + | | 2022-07-24 | [facility] | NEGATIVE | (missing) | (missing) | | (unavailable | 19:31:07 [facility] | | | | + + + + + + + + + | Result panel 2873 | + + + + + + + + + | | 2022-07-24 | [facility] | NEGATIVE | (missing) | (missing) | | (unavailable | 19:31:07 [facility] | | | | + + + + + + + + + | Result panel 2874 | + + + + + + + + + | | 2022-07-24 | [facility] | NEGATIVE | (missing) | (missing) | | (unavailable | 19:31:07 | [facility] | | | | + + + + + + + + + | Result panel 2875 | + + + + + + + + + | | 2022-07-24 | [facility] | YELLOW | (missing) | (missing) | | (unavailable | 19:31:07 | [facility] | | | | + + + + + + + + + | Result panel 2876 | + + + + + +---------+ + + | | 2022-07-24 | [facility] | CLEAR | (missing) | (missing) | | (unavailable | 19:31:07 [facility] | | | | + + + +---------+ + + + + | Result panel 2877 | + + + + + + + + + | | 2022-07-24 | [facility] | >=1000 | (missing) | (missing) | | (unavailable | 19:31:07 [facility] | | | | + + + + + + + + + | Result panel 2878 | + + + + + + + + + | | 2022-07-24 | [facility] | NEGATIVE | (missing) | (missing) | | (unavailable | 19:31:07 [facility] | | | | + + + + + + + + + | Result panel 2879 | + + + + + + + + + | | 2022-07-24 | [facility] | NEGATIVE | (missing) | (missing) | | (unavailable | 19:31:07 [facility] | | | | + + + + + + + + + | Result panel 2880 | + + + + + + + + + | | 2022-07-24 | [facility] | <=1.005 | (missing) | (missing) | | (unavailable | 19:31:07 [facility] | | | | + + + + + + + + + | Result panel 2881 | + + + + + +---------+ + + | | 2022-07-24 | [facility] | LARGE | (missing) | (missing) | | (unavailable | 19:31:07 [facility] | | | | + + + +---------+ + + + + | Result panel 2882 | + + + + + +-------+ + + | | 2022-07-24 | [facility] | 6.0 | (missing) | (missing) | | (unavailable | 19:31:07 [facility] | | | | + + + +-------+ + + + + | Result panel 2883 | + + + + + + + + + | | 2022-07-24 | [facility] | NEGATIVE | (missing) | (missing) | | (unavailable | 19:31:07 [facility] | | | | + + + + + + + + + | Result panel 2884 | + + + + + + + + + | | 2022-07-24 | [facility] | NORMAL | (missing) | (missing) | | (unavailable | 19:31:07 [facility] | | | | + + + + + + + + + | Result panel 2885 | + + + + + + + + + | | 2022-07-24 | [facility] | NEGATIVE | (missing) | (missing) | | (unavailable | 19:31:07 [facility] | | | | + + + + + + + + + | Result panel 2886 | + + + + + + + + + | | 2022-07-24 | [facility] | NEGATIVE | (missing) | (missing) | | (unavailable | 19:31:07 [facility] | | | | + + + + + + + + + | Result panel 2887 | + + + + + +-------+ + + | | 2022-07-24 | [facility] | 0-1 | (missing) | (missing) | | (unavailable | 19:31:07 [facility] | | | | + + + +-------+ + + + + | Result panel 2888 | + + + + + +-------+ + + | | 2022-07-24 | [facility] | 2-3 | (missing) | (missing) | | (unavailable | 19:31:07 [facility] | | | | + + + +-------+ + + + + | Result panel 2889 | + + + + + + + + + | | 2022-07-24 | [facility] | SQUAMOUS 3+ | (missing) | (missing) | | (unavailable | 19:31:07 [facility] | | | | + + + + + + + + + | Result panel 2890 | + + + + + + + + + | | 2022-07-24 | [facility] | NONE SEEN | (missing) | (missing) | | (unavailable | 19:31:07 [facility] | | | | + + + + + + + + + | Result panel 2891 | + + + + + +------+ + + | | 2022-07-24 | [facility] | No | (missing) | (missing) | | (unavailable | 19:31:07 [facility] | | | | + + + +------+ + + + + | Result panel 2892 | + + + + + + + + + | | 2022-07-24 | [facility] | CLEAN CATCH | (missing) | (missing) | | (unavailable | 19:31:07 [facility] | | | | + + + + + + + + + | Result panel 2893 | + + + + + + + + + | | 2022-07-24 | [facility] | NEGATIVE | (missing) | (missing) | | (unavailable | 19:31:07 | [facility] | | | | + + + + + + + + + | Result panel 2894 | + + + + + + + + + | | 2022-07-24 | [facility] | NEGATIVE | (missing) | (missing) | | (unavailable | 19:31:07 | [facility] | | | | + + + + + + + + + | Result panel 2895 | + + + + + + + + + | | 2022-07-24 | [facility] | BLOOD IN | (missing) | (missing) | | (unavailable | 20:54:07 | [facility] | | | | + + + + + + + + + | Result panel 2896 | + + + + + +-----+ + + | | 2022-07-24 | [facility] | A | (missing) | (missing) | | (unavailable | 20:54:07 | [facility] | | | | + + + +-----+ + + + + | Result panel 2897 | + + + + + + + + + | | 2022-07-24 | [facility] | POSITIVE | (missing) | (missing) | | (unavailable | 20:54:07 | [facility] | | | | + + + + + + + + + | Result panel 2898 | + + + + + + + + + | | 2022-07-24 | [facility] | NEGATIVE | (missing) | (missing) | | (unavailable | 20:54:07 [facility] | | | | + + + + + + + + + | Result panel 2899 | + + + + + + + + + | | 2022-07-24 | [facility] | BLOOD IN | (missing) | (missing) | | (unavailable | 20:54:07 [facility] | | | | + + + + + + + + + | Result panel 2900 | + + + + + +-----+ + + | | 2022-07-24 | [facility] | A | (missing) | (missing) | | (unavailable | 20:54:07 | [facility] | | | | + + + +-----+ + + + + | Result panel 2901 | + + + + + + + + + | | 2022-07-24 | [facility] | POSITIVE | (missing) | (missing) | | (unavailable | 20:54:07 | [facility] | | | | + + + + + + + + + | Result panel 2902 | + + + + + + + + + | | 2022-07-24 | [facility] | NEGATIVE | (missing) | (missing) | | (unavailable | 20:54:07 [facility] | | | | + + + + + + + + + | Result panel 2903 | + + + + + + + + + | | 2022-07-24 | [facility] | BLOOD IN | (missing) | (missing) | | (unavailable | 20:54:07 | [facility] | | | | + + + + + + + + + | Result panel 2904 | + + + + + +--------+ + + | | 2022-07-24 | [facility] | 12.6 | (missing) | (missing) | | (unavailable | 20:54:07 | [facility] | | | | + + + +--------+ + + + + | Result panel 2905 | + + + + + +--------+ + + | | 2022-07-24 | [facility] | 3.60 | (missing) | (missing) | | (unavailable | 20:54:07 | [facility] | | | | + + + +--------+ + + + + | Result panel 2906 | + + + + + +-------+ + + | | 2022-07-24 | [facility] | 9.8 | (missing) | (missing) | | (unavailable | 20:54:07 | [facility] | | | | + + + +-------+ + + + + | Result panel 2907 | + + + + + +--------+ + + | | 2022-07-24 | [facility] | 28.9 | (missing) | (missing) | | (unavailable | 20:54:07 | [facility] | | | | + + + +--------+ + + + + | Result panel 2908 | + + + + + +--------+ + + | | 2022-07-24 | [facility] | 80.3 | (missing) | (missing) | | (unavailable | 20:54:07 | [facility] | | | | + + + +--------+ + + + + | Result panel 2909 | + + + + + +--------+ + + | | 2022-07-24 | [facility] | 27.1 | (missing) | (missing) | | (unavailable | 20:54:07 [facility] | | | | + + + +--------+ + + + + | Result panel 2910 | + + + + + +--------+ + + | | 2022-07-24 | [facility] | 33.8 | (missing) | (missing) | | (unavailable | 20:54:07 | [facility] | | | | + + + +--------+ + + + + | Result panel 2911 | + + + + + +--------+ + + | | 2022-07-24 | [facility] | 17.7 | (missing) | (missing) | | (unavailable | 20:54:07 | [facility] | | | | + + + +--------+ + + + + | Result panel 2912 | + + + + + +-------+ + + | | 2022-07-24 | [facility] | 325 | (missing) | (missing) | | (unavailable | 20:54:07 | [facility] | | | | + + + +-------+ + + + + | Result panel 2913 | + + + + + +--------+ + + | | 2022-07-24 | [facility] | 71.1 | (missing) | (missing) | | (unavailable | 20:54:07 | [facility] | | | | + + + +--------+ + + + + | Result panel 2914 | + + + + + +--------+ + + | | 2022-07-24 | [facility] | 15.5 | (missing) | (missing) | | (unavailable | 20:54:07 | [facility] | | | + + + +--------+ + + + + | Result panel 2915 | + + + + + +--------+ + + | | 2022-07-24 | [facility] | 11.6 | (missing) | (missing) | | (unavailable | 20:54:07 | [facility] | | | + + + +--------+ + + + + | Result panel 2916 | + + + + + +-------+ + + | | 2022-07-24 | [facility] | 0.3 | (missing) | (missing) | | (unavailable | 20:54:07 | [facility] | | | + + + +-------+ + + + + | Result panel 2917 | + + + + + +-------+ + + | | 2022-07-24 | [facility] | 1.5 | (missing) | (missing) | | (unavailable | 20:54:07 [facility] | | | + + + +-------+ + + + + | Result panel 2918 | + + + + + +-------+---------+ + | | 2022-07-24 | [facility] | 391 | mg/dL | (missing) | | (unavailable | 20:54:07 | [facility] | | | + + + +-------+---------+ + + + | Result panel 2919 | + + + + + +------+---------+ + | | 2022-07-24 | [facility] | 13 | mg/dL | (missing) | | (unavailable | 20:54:07 | [facility] | | | + + + +------+---------+ + + + | Result panel 2920 | + + + + + +--------+---------+ + | | 2022-07-24 | [facility] | 0.76 | mg/dL | (missing) | | (unavailable | 20:54:07 | [facility] | | | + + + +--------+---------+ + + + | Result panel 2921 | + + + + + +-------+ + + | | 2022-07-24 | [facility] | 107 | (missing) | (missing) | | (unavailable | 20:54:07 | [facility] | | | + + + +-------+ + + + + | Result panel 292 | + + + + + +---------+ + + | | 2022-07-24 | [facility] | 17.10 | (missing) | (missing) | | (unavailable | 20:54:07 | [facility] | | | + + + +---------+ + + + + | Result panel 292 | + + + + + +-------+ + + | | 2022-07-24 | [facility] | 132 | (missing) | (missing) | | (unavailable | 20:54:07 | [facility] | | | + + + +-------+ + + + + | Result panel 2924 | + + + + + +-------+ + + | | 2022-07-24 | [facility] | 4.4 | (missing) | (missing) | | (unavailable | 20:54:07 | [facility] | | | + + + +-------+ + + + + | Result panel 2925 | + + + + + +------+ + + | | 2022-07-24 | [facility] | 96 | (missing) | (missing) | | (unavailable | 20:54:07 | [facility] | | | | + + + +------+ + + + + | Result panel 2926 | + + + + + +------+ + + | | 2022-07-24 | [facility] | 27 | (missing) | (missing) | | (unavailable | 20:54:07 | [facility] | | | | + + + +------+ + + + + | Result panel 2927 | + + + + + +--------+ + + | | 2022-07-24 | [facility] | 13.4 | (missing) | (missing) | | (unavailable | 20:54:07 | [facility] | | | + + + +--------+ + + + + | Result panel 2928 | + + + + + +-------+---------+ + | | 2022-07-24 | [facility] | 8.8 | mg/dL | (missing) | | (unavailable | 20:54:07 | [facility] | | | + + + +-------+---------+ + + + | Result panel 2929 | + + + + + +-------+ + + | | 2022-07-24 | [facility] | 7.3 | (missing) | (missing) | | (unavailable | 20:54:07 | [facility] | | | + + + +-------+ + + + + | Result panel 2930 | + + + + + +-------+ + + | | 2022-07-24 | [facility] | 3.3 | (missing) | (missing) | | (unavailable | 20:54:07 | [facility] | | | + + + +-------+ + + + + | Result panel 2931 | + + + + + +-------+ + + | | 2022-07-24 | [facility] | 4.0 | (missing) | (missing) | | (unavailable | 20:54:07 | [facility] | | | + + + +-------+ + + + + | Result panel 2932 | + + + + + +--------+ + + | | 2022-07-24 | [facility] | 0.83 | (missing) | (missing) | | (unavailable | 20:54:07 | [facility] | | | + + + +--------+ + + + + | Result panel 2933 | + + + + + +-------+ + + | | 2022-07-24 | [facility] | 0.6 | (missing) | (missing) | | (unavailable | 20:54:07 | [facility] | | | + + + +-------+ + + + + | Result panel 2934 | + + + + + +------+ + + | | 2022-07-24 | [facility] | 34 | (missing) | (missing) | | (unavailable | 20:54:07 | [facility] | | | + + + +------+ + + + + | Result panel 2935 | + + + + + +------+ + + | | 2022-07-24 | [facility] | 25 | (missing) | (missing) | | (unavailable | 20:54:07 | [facility] | | | + + + +------+ + + + + | Result panel 2936 | + + + + + +-------+ + + | | 2022-07-24 | [facility] | 106 | (missing) | (missing) | | (unavailable | 20:54:07 | [facility] | | | | + + + +-------+ + + + + | Result panel 2937 | + + + + + +-----+ + + | | 2022-07-24 | [facility] | A | (missing) | (missing) | | (unavailable | 20:54:07 | [facility] | | | | + + + +-----+ + + + + | Result panel 2938 | + + + + + + + + + | | 2022-07-24 | [facility] | POSITIVE | (missing) | (missing) | | (unavailable | 20:54:07 | [facility] | | | | + + + + + + + + + | Result panel 2939 | + + + + + + + + + | | 2022-07-24 | [facility] | NEGATIVE | (missing) | (missing) | | (unavailable | 20:54:07 | [facility] | | | | + + + + + + + + + | Result panel 2940 | + + + + + + + + + | | 2022-07-24 | [facility] | BLOOD IN | (missing) | (missing) | | (unavailable | 20:54:07 | [facility] | | | | + + + + + + + + + | Result panel 2941 | + + + + + +-----+ + + | | 2022-07-24 | [facility] | A | (missing) | (missing) | | (unavailable | 20:54:07 | [facility] | | | | + + + +-----+ + + + + | Result panel 2942 | + + + + + + + + + | | 2022-07-24 | [facility] | POSITIVE | (missing) | (missing) | | (unavailable | 20:54:07 | [facility] | | | | + + + + + + + + + | Result panel 2943 | + + + + + + + + + | | 2022-07-24 | [facility] | NEGATIVE | (missing) | (missing) | | (unavailable | 20:54:07 | [facility] | | | | + + + + + + + + + | Result panel 2944 | + + + + + + + + + | | 2022-07-27 | [facility] | YELLOW | (missing) | (missing) | | (unavailable | 18:26:07 | [facility] | | | | + + + + + + + + + | Result panel 2945 | + + + + + +---------+ + + | | 2022-07-27 | [facility] | CLEAR | (missing) | (missing) | | (unavailable | 18:26:07 | [facility] | | | | + + + +---------+ + + + + | Result panel 2946 | + + + + + + + + + | | 2022-07-27 | [facility] | >=1000 | (missing) | (missing) | | (unavailable | 18::07 | [facility] | | | | + + + + + + + + + | Result panel 2947 | + + + + + + + + + | | 2022-07-27 | [facility] | NEGATIVE | (missing) | (missing) | | (unavailable | 18::07 | [facility] | | | | + + + + + + + + + | Result panel 2948 | + + + + + + + + + | | 2022-07-27 | [facility] | NEGATIVE | (missing) | (missing) | | (unavailable | 18:26:07 | [facility] | | | | + + + + + + + + + | Result panel 2949 | + + + + + + + + + | | 2022-07-27 | [facility] | <=1.005 | (missing) | (missing) | | (unavailable | 18:26:07 | [facility] | | | | + + + + + + + + + | Result panel 2950 | + + + + + +---------+ + + | | 2022-07-27 | [facility] | SMALL | (missing) | (missing) | | (unavailable | 18:26:07 | [facility] | | | | + + + +---------+ + + + + | Result panel 2951 | + + + + + +-------+ + + | | 2022-07-27 | [facility] | 6.0 | (missing) | (missing) | | (unavailable | 18:26:07 | [facility] | | | | + + + +-------+ + + + + | Result panel 2952 | + + + + + + + + + | | 2022-07-27 | [facility] | NEGATIVE | (missing) | (missing) | | (unavailable | 18:26:07 | [facility] | | | | + + + + + + + + + | Result panel 2953 | + + + + + + + + + | | 2022-07-27 | [facility] | NORMAL | (missing) | (missing) | | (unavailable | 18:26:07 | [facility] | | | | + + + + + + + + + | Result panel 2954 | + + + + + + + + + | | 2022-07-27 | [facility] | NEGATIVE | (missing) | (missing) | | (unavailable | 18:26:07 | [facility] | | | | + + + + + + + + + | Result panel 2955 | + + + + + + + + + | | 2022-07-27 | [facility] | NEGATIVE | (missing) | (missing) | | (unavailable | 18:26:07 | [facility] | | | | + + + + + + + + + | Result panel 2956 | + + + + + +-------+ + + | | 2022-07-27 | [facility] | 0-1 | (missing) | (missing) | | (unavailable | 18:26:07 | [facility] | | | | + + + +-------+ + + + + | Result panel 2957 | + + + + + +-------+ + + | | 2022-07-27 | [facility] | 4-6 | (missing) | (missing) | | (unavailable | 18:26:07 | [facility] | | | | + + + +-------+ + + + + | Result panel 2958 | + + + + + + + + + | | 2022-07-27 | [facility] | SQUAMOUS 4+ | (missing) | (missing) | | (unavailable | 18:26:07 | [facility] | | | | + + + + + + + + + | Result panel 2959 | + + + + + + + + + | | 2022-07-27 | [facility] | NONE SEEN | (missing) | (missing) | | (unavailable | 18:26:07 | [facility] | | | | + + + + + + + + + | Result panel 2960 | + + + + + + + + + | | 2022-07-27 | [facility] | NONE SEEN | (missing) | (missing) | | (unavailable | 18:26:07 | [facility] | | | | + + + + + + + + + | Result panel 2961 | + + + + + + + + + | | 2022-07-27 | [facility] | NONE SEEN | (missing) | (missing) | | (unavailable | 18:26:07 | [facility] | | | | + + + + + + + + + | Result panel 2962 | + + + + + +------+ + + | | 2022-07-27 | [facility] | No | (missing) | (missing) | | (unavailable | 18::07 | [facility] | | | | + + + +------+ + + + + | Result panel 2963 | + + + + + + + + + | | 2022-07-27 | [facility] | CLEAN CATCH | (missing) | (missing) | | (unavailable | 18:26:07 | [facility] | | | | + + + + + + + + + | Result panel 2964 | + + + + + +--------+ + + | | 2022-07-27 | [facility] | 13.6 | (missing) | (missing) | | (unavailable | 19:48:07 | [facility] | | | | + + + +--------+ + + + + | Result panel 2965 | + + + + + +--------+ + + | | 2022-07-27 | [facility] | 3.71 | (missing) | (missing) | | (unavailable | 19:48:07 | [facility] | | | | + + + +--------+ + + + + | Result panel 2966 | + + + + + +-------+ + + | | 2022-07-27 | [facility] | 9.5 | (missing) | (missing) | | (unavailable | 19:48:07 | [facility] | | | | + + + +-------+ + + + + | Result panel 2967 | + + + + + +--------+ + + | | 2022-07-27 | [facility] | 29.3 | (missing) | (missing) | | (unavailable | 19:48:07 | [facility] | | | | + + + +--------+ + + + + | Result panel 2968 | + + + + + +--------+ + + | | 2022-07-27 | [facility] | 79.1 | (missing) | (missing) | | (unavailable | 19:48:07 | [facility] | | | | + + + +--------+ + + + + | Result panel 2969 | + + + + + +--------+ + + | | 2022-07-27 | [facility] | 25.7 | (missing) | (missing) | | (unavailable | 19:48:07 | [facility] | | | | + + + +--------+ + + + + | Result panel 2970 | + + + + + +--------+ + + | | 2022-07-27 | [facility] | 32.5 | (missing) | (missing) | | (unavailable | 19:48:07 [facility] | | | | + + + +--------+ + + + + | Result panel 2971 | + + + + + +--------+ + + | | 2022-07-27 | [facility] | 17.9 | (missing) | (missing) | | (unavailable | 19:48:07 [facility] | | | | + + + +--------+ + + + + | Result panel 2972 | + + + + + +-------+ + + | | 2022-07-27 | [facility] | 273 | (missing) | (missing) | | (unavailable | 19:48:07 | [facility] | | | | + + + +-------+ + + + + | Result panel 2973 | + + + + + +--------+ + + | | 2022-07-27 | [facility] | 74.9 | (missing) | (missing) | | (unavailable | 19:48:07 [facility] | | | | + + + +--------+ + + + + | Result panel 2974 | + + + + + +--------+ + + | | 2022-07-27 | [facility] | 12.6 | (missing) | (missing) | | (unavailable | 19:48:07 [facility] | | | | + + + +--------+ + + + + | Result panel 2975 | + + + + + +--------+ + + | | 2022-07-27 | [facility] | 10.1 | (missing) | (missing) | | (unavailable | 19:48:07 [facility] | | | | + + + +--------+ + + + + | Result panel 2976 | + + + + + +-------+ + + | | 2022-07-27 | [facility] | 1.0 | (missing) | (missing) | | (unavailable | 19:48:07 [facility] | | | | + + + +-------+ + + + + | Result panel 2977 | + + + + + +-------+ + + | | 2022-07-27 | [facility] | 1.4 | (missing) | (missing) | | (unavailable | 19:48:07 | [facility] | | | | + + + +-------+ + + + + | Result panel 2978 | + + + + + +-------+---------+ + | | 2022-07-27 | [facility] | 110 | mg/dL | (missing) | | (unavailable | 19:48:07 | [facility] | | | | + + + +-------+---------+ + + + | Result panel 2979 | + + + + + +------+---------+ + | | 2022-07-27 | [facility] | 13 | mg/dL | (missing) | | (unavailable | 19:48:07 | [facility] | | | | + + + +------+---------+ + + + | Result panel 2980 | + + + + + +--------+---------+ + | | 2022-07-27 | [facility] | 0.65 | mg/dL | (missing) | | (unavailable | 19:48:07 | [facility] | | | | + + + +--------+---------+ + + + | Result panel 2981 | + + + + + +-------+ + + | | 2022-07-27 | [facility] | 120 | (missing) | (missing) | | (unavailable | 19:48:07 [facility] | | | | + + + +-------+ + + + + | Result panel 2982 | + + + + + +---------+ + + | | 2022-07-27 | [facility] | 20.00 | (missing) | (missing) | | (unavailable | 19:48:07 | [facility] | | | | + + + +---------+ + + + + | Result panel 2983 | + + + + + +-------+ + + | | 2022-07-27 | [facility] | 136 | (missing) | (missing) | | (unavailable | 19:48:07 [facility] | | | | + + + +-------+ + + + + | Result panel 2984 | + + + + + +-------+ + + | | 2022-07-27 | [facility] | 3.7 | (missing) | (missing) | | (unavailable | 19:48:07 [facility] | | | | + + + +-------+ + + + + | Result panel 2985 | + + + + + +------+ + + | | 2022-07-27 | [facility] | 99 | (missing) | (missing) | | (unavailable | 19:48:07 [facility] | | | | + + + +------+ + + + + | Result panel 2986 | + + + + + +------+ + + | | 2022-07-27 | [facility] | 27 | (missing) | (missing) | | (unavailable | 19:48:07 [facility] | | | | + + + +------+ + + + + | Result panel 2987 | + + + + + +--------+ + + | | 2022-07-27 | [facility] | 13.7 | (missing) | (missing) | | (unavailable | 19:48:07 [facility] | | | | + + + +--------+ + + + + | Result panel 2988 | + + + + + +-------+---------+ + | | 2022-07-27 | [facility] | 9.2 | mg/dL | (missing) | | (unavailable | 19:48:07 [facility] | | | | + + + +-------+---------+ + + + | Result panel 2989 | + + + + + +-------+---------+ + | | 2022-07-27 | [facility] | 1.4 | mg/dL | (missing) | | (unavailable | 19:48:07 [facility] | | | | + + + +-------+---------+ + + + | Result panel 2990 | + + + + + +-------+ + + | | 2022-07-27 | [facility] | 7.4 | (missing) | (missing) | | (unavailable | 19:48:07 [facility] | | | | + + + +-------+ + + + + | Result panel 2991 | + + + + + +-------+ + + | | 2022-07-27 | [facility] | 3.0 | (missing) | (missing) | | (unavailable | 19:48:07 [facility] | | | | + + + +-------+ + + + + | Result panel 2992 | + + + + + +-------+ + + | | 2022-07-27 | [facility] | 4.4 | (missing) | (missing) | | (unavailable | 19:48:07 [facility] | | | | + + + +-------+ + + + + | Result panel 2993 | + + + + + +--------+ + + | | 2022-07-27 | [facility] | 0.68 | (missing) | (missing) | | (unavailable | 19:48:07 [facility] | | | | + + + +--------+ + + + + | Result panel 2994 | + + + + + +-------+ + + | | 2022-07-27 | [facility] | 0.4 | (missing) | (missing) | | (unavailable | 19:48:07 [facility] | | | | + + + +-------+ + + + + | Result panel 2995 | + + + + + +------+ + + | | 2022-07-27 | [facility] | 11 | (missing) | (missing) | | (unavailable | 19:48:07 [facility] | | | | + + + +------+ + + + + | Result panel 2996 | + + + + + +------+ + + | | 2022-07-27 | [facility] | 19 | (missing) | (missing) | | (unavailable | 19:48:07 [facility] | | | | + + + +------+ + + + + | Result panel 2997 | + + + + + +-------+ + + | | 2022-07-27 | [facility] | 110 | (missing) | (missing) | | (unavailable | 19:48:07 | [facility] | | | | + + + +-------+ + + + + | Result panel 2998 | + + + + + +------+ + + | | 2022-07-27 | [facility] | 83 | (missing) | (missing) | | (unavailable | 19:48:07 | [facility] | | | | + + + +------+ + + + + | Result panel 2999 | + + + + + + + + + | | 2022-07-27 | [facility] | NEGATIVE | (missing) | (missing) | | (unavailable | 19:48:07 [facility] | | | | + + + + + + + + + | Result panel 3000 | + + + + + +--------+ + + | | 2022-07-29 | [facility] | 12.6 | (missing) | (missing) | | (unavailable | 07:00:07 [facility] | | | | + + + +--------+ + + + + | Result panel 3001 | + + + + + +--------+ + + | | 2022-07-29 | [facility] | 4.04 | (missing) | (missing) | | (unavailable | 07:00:07 [facility] | | | | + + + +--------+ + + + + | Result panel 3002 | + + + + + +--------+ + + | | 2022-07-29 | [facility] | 10.0 | (missing) | (missing) | | (unavailable | 07:00:07 [facility] | | | | + + + +--------+ + + + + | Result panel 3003 | + + + + + +--------+ + + | | 2022-07-29 | [facility] | 31.8 | (missing) | (missing) | | (unavailable | 07:00:07 [facility] | | | | + + + +--------+ + + + + | Result panel 3004 | + + + + + +--------+ + + | | 2022-07-29 | [facility] | 78.8 | (missing) | (missing) | | (unavailable | 07:00:07 [facility] | | | | + + + +--------+ + + + + | Result panel 3005 | + + + + + +--------+ + + | | 2022-07-29 | [facility] | 24.8 | (missing) | (missing) | | (unavailable | 07:00:07 [facility] | | | | + + + +--------+ + + + + | Result panel 3006 | + + + + + +--------+ + + | | 2022-07-29 | [facility] | 31.5 | (missing) | (missing) | | (unavailable | 07:00:07 [facility] | | | | + + + +--------+ + + + + | Result panel 3007 | + + + + + +--------+ + + | | 2022-07-29 | [facility] | 18.8 | (missing) | (missing) | | (unavailable | 07:00:07 [facility] | | | | + + + +--------+ + + + + | Result panel 3008 | + + + + + +-------+ + + | | 2022-07-29 | [facility] | 296 | (missing) | (missing) | | (unavailable | 07:00:07 [facility] | | | | + + + +-------+ + + + + | Result panel 3009 | + + + + + +--------+ + + | | 2022-07-29 | [facility] | 77.2 | (missing) | (missing) | | (unavailable | 07:00:07 | [facility] | | | | + + + +--------+ + + + + | Result panel 301 | + + + + + +--------+ + + | | 2022-07-29 | [facility] | 11.0 | (missing) | (missing) | | (unavailable | 07:00:07 [facility] | | | | + + + +--------+ + + + + | Result panel 3011 | + + + + + +-------+ + + | | 2022-07-29 | [facility] | 9.3 | (missing) | (missing) | | (unavailable | 07:00:07 [facility] | | | | + + + +-------+ + + + + | Result panel 3012 | + + + + + +-------+ + + | | 2022-07-29 | [facility] | 1.7 | (missing) | (missing) | | (unavailable | 07:00:07 [facility] | | | | + + + +-------+ + + + + | Result panel 3013 | + + + + + +-------+ + + | | 2022-07-29 | [facility] | 0.8 | (missing) | (missing) | | (unavailable | 07:00:07 [facility] | | | | + + + +-------+ + + + + | Result panel 3014 | + + + + + +-------+---------+ + | | 2022-07-29 | [facility] | 277 | mg/dL | (missing) | | (unavailable | 07:00:07 | [facility] | | | | + + + +-------+---------+ + + + | Result panel 3015 | + + + + + +------+---------+ + | | 2022-07-29 | [facility] | 14 | mg/dL | (missing) | | (unavailable | 07:00:07 [facility] | | | | + + + +------+---------+ + + + | Result panel 3016 | + + + + + +--------+---------+ + | | 2022-07-29 | [facility] | 0.73 | mg/dL | (missing) | | (unavailable | 07:00:07 [facility] | | | | + + + +--------+---------+ + + + | Result panel 3017 | + + + + + +-------+ + + | | 2022-07-29 | [facility] | 112 | (missing) | (missing) | | (unavailable | 07:00:07 [facility] | | | | + + + +-------+ + + + + | Result panel 3018 | + + + + + +---------+ + + | | 2022-07-29 | [facility] | 19.17 | (missing) | (missing) | | (unavailable | 07:00:07 [facility] | | | | + + + +---------+ + + + + | Result panel 3019 | + + + + + +-------+ + + | | 2022-07-29 | [facility] | 135 | (missing) | (missing) | | (unavailable | 07:00:07 [facility] | | | | + + + +-------+ + + + + | Result panel 3020 | + + + + + +-------+ + + | | 2022-07-29 | [facility] | 4.2 | (missing) | (missing) | | (unavailable | 07:00:07 [facility] | | | | + + + +-------+ + + + + | Result panel 3021 | + + + + + +------+ + + | | 2022-07-29 | [facility] | 99 | (missing) | (missing) | | (unavailable | 07:00:07 [facility] | | | | + + + +------+ + + + + | Result panel 3022 | + + + + + +------+ + + | | 2022-07-29 | [facility] | 28 | (missing) | (missing) | | (unavailable | 07:00:07 [facility] | | | | + + + +------+ + + + + | Result panel 3023 | + + + + + +--------+ + + | | 2022-07-29 | [facility] | 12.2 | (missing) | (missing) | | (unavailable | 07:00:07 [facility] | | | | + + + +--------+ + + + + | Result panel 3024 | + + + + + +-------+---------+ + | | 2022-07-29 | [facility] | 8.9 | mg/dL | (missing) | | (unavailable | 07:00:07 [facility] | | | | + + + +-------+---------+ + + + | Result panel 3025 | + + + + + +-------+---------+ + | | 2022-07-29 | [facility] | 1.3 | mg/dL | (missing) | | (unavailable | 07:00:07 [facility] | | | | + + + +-------+---------+ + + + | Result panel 3026 | + + + + + +-------+ + + | | 2022-07-29 | [facility] | 7.6 | (missing) | (missing) | | (unavailable | 07:00:07 [facility] | | | | + + + +-------+ + + + + | Result panel 3027 | + + + + + +-------+ + + | | 2022-07-29 | [facility] | 3.0 | (missing) | (missing) | | (unavailable | 07:00:07 [facility] | | | | + + + +-------+ + + + + | Result panel 3028 | + + + + + +-------+ + + | | 2022-07-29 | [facility] | 4.6 | (missing) | (missing) | | (unavailable | 07:00:07 [facility] | | | | + + + +-------+ + + + + | Result panel 3029 | + + + + + +--------+ + + | | 2022-07-29 | [facility] | 0.65 | (missing) | (missing) | | (unavailable | 07:00:07 [facility] | | | | + + + +--------+ + + + + | Result panel 3030 | + + + + + +-------+ + + | | 2022-07-29 | [facility] | 0.3 | (missing) | (missing) | | (unavailable | 07:00:07 [facility] | | | | + + + +-------+ + + + + | Result panel 3031 | + + + + + +------+ + + | | 2022-07-29 | [facility] | 13 | (missing) | (missing) | | (unavailable | 07:00:07 [facility] | | | | + + + +------+ + + + + | Result panel 3032 | + + + + + +------+ + + | | 2022-07-29 | [facility] | 19 | (missing) | (missing) | | (unavailable | 07:00:07 [facility] | | | | + + + +------+ + + + + | Result panel 3033 | + + + + + +-------+ + + | | 2022-07-29 | [facility] | 110 | (missing) | (missing) | | (unavailable | 07:00:07 [facility] | | | | + + + +-------+ + + + + | Result panel 3034 | + + + + + +------+ + + | | 2022-07-29 | [facility] | 94 | (missing) | (missing) | | (unavailable | 07:00:07 [facility] | | | | + + + +------+ + + + + | Result panel 3035 | + + + + + + + + + | | 2022-07-29 | [facility] | NEGATIVE | (missing) | (missing) | | (unavailable | 07:00:07 [facility] | | | | + + + + + + + + + | Result panel 3036 | + + + + + +--------+ + + | | 2022-07-29 | [facility] | 77.2 | (missing) | (missing) | | (unavailable | 07:00:07 [facility] | | | | + + + +--------+ + + + + | Result panel 3037 | + + + + + +--------+ + + | | 2022-07-29 | [facility] | 11.0 | (missing) | (missing) | | (unavailable | 07:00:07 [facility] | | | + + + +--------+ + + + + | Result panel 3038 | + + + + + +-------+ + + | | 2022-07-29 | [facility] | 9.3 | (missing) | (missing) | | (unavailable | 07:00:07 [facility] | | | + + + +-------+ + + + + | Result panel 3039 | + + + + + +-------+ + + | | 2022-07-29 | [facility] | 1.7 | (missing) | (missing) | | (unavailable | 07:00:07 [facility] | | | + + + +-------+ + + + + | Result panel 3040 | + + + + + +-------+ + + | | 2022-07-29 | [facility] | 0.8 | (missing) | (missing) | | (unavailable | 07:00:07 [facility] | | | + + + +-------+ + + + + | Result panel 3041 | + + + + + +-------+---------+ + | | 2022-07-29 | [facility] | 1.3 | mg/dL | (missing) | | (unavailable | 07:00:07 [facility] | | | + + + +-------+---------+ + + + | Result panel 3042 | + + + + + +-------+ + + | | 2022-07-29 | [facility] | 7.6 | (missing) | (missing) | | (unavailable | 07:00:07 [facility] | | | + + + +-------+ + + + + | Result panel 3043 | + + + + + +-------+ + + | | 2022-07-29 | [facility] | 3.0 | (missing) | (missing) | | (unavailable | 07:00:07 [facility] | | | + + + +-------+ + + + + | Result panel 3044 | + + + + + +-------+ + + | | 2022-07-29 | [facility] | 4.6 | (missing) | (missing) | | (unavailable | 07:00:07 [facility] | | | + + + +-------+ + + + + | Result panel 3045 | + + + + + +--------+ + + | | 2022-07-29 | [facility] | 0.65 | (missing) | (missing) | | (unavailable | 07:00:07 [facility] | | | + + + +--------+ + + + + | Result panel 3046 | + + + + + +-------+ + + | | 2022-07-29 | [facility] | 0.3 | (missing) | (missing) | | (unavailable | 07:00:07 [facility] | | | + + + +-------+ + + + + | Result panel 3047 | + + + + + +------+ + + | | 2022-07-29 | [facility] | 13 | (missing) | (missing) | | (unavailable | 07:00:07 [facility] | | | + + + +------+ + + + + | Result panel 3048 | + + + + + +------+ + + | | 2022-07-29 | [facility] | 19 | (missing) | (missing) | | (unavailable | 07:00:07 [facility] | | | + + + +------+ + + + + | Result panel 3049 | + + + + + +-------+ + + | | 2022-07-29 | [facility] | 110 | (missing) | (missing) | | (unavailable | 07:00:07 [facility] | | | | + + + +-------+ + + + + | Result panel 3050 | + + + + + +------+ + + | | 2022-07-29 | [facility] | 94 | (missing) | (missing) | | (unavailable | 07:00:07 [facility] | | | + + + +------+ + + + + | Result panel 3051 | + + + + + + + + + | | 2022-07-29 | [facility] | NEGATIVE | (missing) | (missing) | | (unavailable | 07:00:07 [facility] | | | | + + + + + + + + + | Result panel 3052 | + + + + + +-------+---------+ + | | 2022-07-29 | [facility] | 1.3 | mg/dL | (missing) | | (unavailable | 07:00:07 [facility] | | | + + + +-------+---------+ + + + | Result panel 3053 | + + + + + + + + + | | 2022-07-29 | [facility] | NEGATIVE | (missing) | (missing) | | (unavailable | 07:00:07 [facility] | | | + + + + + + + + + | Result panel 3054 | + + + + + + + + + | | 2022-07-29 | [facility] | YELLOW | (missing) | (missing) | | (unavailable | 07:48:07 [facility] | | | | + + + + + + + + + | Result panel 3055 | + + + + + + + + + | | 2022-07-29 | [facility] | CLOUDY | (missing) | (missing) | | (unavailable | 07:48:07 [facility] | | | | + + + + + + + + + | Result panel 3056 | + + + + + + + + + | | 2022-07-29 | [facility] | >=1000 | (missing) | (missing) | | (unavailable | 07:48:07 [facility] | | | | + + + + + + + + + | Result panel 3057 | + + + + + + + + + | | 2022-07-29 | [facility] | NEGATIVE | (missing) | (missing) | | (unavailable | 07:48:07 [facility] | | | | + + + + + + + + + | Result panel 3058 | + + + + + + + + + | | 2022-07-29 | [facility] | NEGATIVE | (missing) | (missing) | | (unavailable | 07:48:07 [facility] | | | | + + + + + + + + + | Result panel 3059 | + + + + + +---------+ + + | | 2022-07-29 | [facility] | 1.015 | (missing) | (missing) | | (unavailable | 07:48:07 [facility] | | | | + + + +---------+ + + + + | Result panel 3060 | + + + + + + + + + | | 2022-07-29 | [facility] | MODERATE | (missing) | (missing) | | (unavailable | 07:48:07 [facility] | | | | + + + + + + + + + | Result panel 3061 | + + + + + +-------+ + + | | 2022-07-29 | [facility] | 6.0 | (missing) | (missing) | | (unavailable | 07:48:07 [facility] | | | + + + +-------+ + + + + | Result panel 3062 | + + + + + + + + + | | 2022-07-29 | [facility] | NEGATIVE | (missing) | (missing) | | (unavailable | 07:48:07 [facility] | | | | + + + + + + + + + | Result panel 3063 | + + + + + + + + + | | 2022-07-29 | [facility] | NORMAL | (missing) | (missing) | | (unavailable | 07:48:07 [facility] | | | | + + + + + + + + + | Result panel 3064 | + + + + + + + + + | | 2022-07-29 | [facility] | NEGATIVE | (missing) | (missing) | | (unavailable | 07:48:07 [facility] | | | | + + + + + + + + + | Result panel 3065 | + + + + + + + + + | | 2022-07-29 | [facility] | NEGATIVE | (missing) | (missing) | | (unavailable | 07:48:07 [facility] | | | | + + + + + + + + + | Result panel 3066 | + + + + + +-------+ + + | | 2022-07-29 | [facility] | 2-3 | (missing) | (missing) | | (unavailable | 07:48:07 [facility] | | | | + + + +-------+ + + + + | Result panel 3067 | + + + + + +-------+ + + | | 2022-07-29 | [facility] | 2-3 | (missing) | (missing) | | (unavailable | 07:48:07 [facility] | | | | + + + +-------+ + + + + | Result panel 3068 | + + + + + + + + + | | 2022-07-29 | [facility] | SQUAMOUS 4+ | (missing) | (missing) | | (unavailable | 07:48:07 [facility] | | | | + + + + + + + + + | Result panel 3069 | + + + + + + + + + | | 2022-07-29 | [facility] | NONE SEEN | (missing) | (missing) | | (unavailable | 07:48:07 [facility] | | | | + + + + + + + + + | Result panel 3070 | + + + + + +------+ + + | | 2022-07-29 | [facility] | 1+ | (missing) | (missing) | | (unavailable | 07:48:07 [facility] | | | | + + + +------+ + + + + | Result panel 3071 | + + + + + + + + + | | 2022-07-29 | [facility] | NONE SEEN | (missing) | (missing) | | (unavailable | 07:48:07 [facility] | | | | + + + + + + + + + | Result panel 3072 | + + + + + +------+ + + | | 2022-07-29 | [facility] | No | (missing) | (missing) | | (unavailable | 07:48:07 [facility] | | | | + + + +------+ + + + + | Result panel 3073 | + + + + + + + + + | | 2022-07-29 | [facility] | CLEAN CATCH | (missing) | (missing) | | (unavailable | 07:48:07 [facility] | | | | + + + + + + + + + | Result panel 3074 | + + + + + +-------+ + + | | 2022-07-29 | [facility] | 2-3 | (missing) | (missing) | | (unavailable | 07:48:07 [facility] | | | + + + +-------+ + + + + | Result panel 3075 | + + + + + +-------+ + + | | 2022-07-29 | [facility] | 2-3 | (missing) | (missing) | | (unavailable | 07:48:07 [facility] | | | + + + +-------+ + + + + | Result panel 3076 | + + + + + + + + + | | 2022-07-29 | [facility] | SQUAMOUS 4+ | (missing) | (missing) | | (unavailable | 07:48:07 [facility] | | | | + + + + + + + + + | Result panel 3077 | + + + + + + + + + | | 2022-07-29 | [facility] | NONE SEEN | (missing) | (missing) | | (unavailable | 07:48:07 [facility] | | | | + + + + + + + + + | Result panel 3078 | + + + + + +------+ + + | | 2022-07-29 | [facility] | 1+ | (missing) | (missing) | | (unavailable | 07:48:07 [facility] | | | | + + + +------+ + + + + | Result panel 3079 | + + + + + + + + + | | 2022-07-29 | [facility] | NONE SEEN | (missing) | (missing) | | (unavailable | 07:48:07 [facility] | | | | + + + + + + + + + | Result panel 3080 | + + + + + +------+ + + | | 2022-07-29 | [facility] | No | (missing) | (missing) | | (unavailable | 07[facility]48:07 [facility] | | | | + + + +------+ + + + + | Result panel 3081 | + + + + + + + + + | | 2022-07-29 | [facility] | CLEAN CATCH | (missing) | (missing) | | (unavailable | 07:48:07 [facility] | | | | + + + + + + + + + | Result panel 3082 | + + + + + + + + + | | 2022-07-29 | [facility] | YELLOW | (missing) | (missing) | | (unavailable | 07:48:07 [facility] | | | | + + + + + + + + + | Result panel 3083 | + + + + + + + + + | | 2022-07-29 | [facility] | CLOUDY | (missing) | (missing) | | (unavailable | 07:48:07 [facility] | | | | + + + + + + + + + | Result panel 3084 | + + + + + + + + + | | 2022-07-29 | [facility] | >=1000 | (missing) | (missing) | | (unavailable | 07:48:07 [facility] | | | | + + + + + + + + + | Result panel 3085 | + + + + + + + + + | | 2022-07-29 | [facility] | NEGATIVE | (missing) | (missing) | | (unavailable | 07:48:07 [facility] | | | | + + + + + + + + + | Result panel 3086 | + + + + + + + + + | | 2022-07-29 | [facility] | NEGATIVE | (missing) | (missing) | | (unavailable | 07:48:07 [facility] | | | | + + + + + + + + + | Result panel 3087 | + + + + + +---------+ + + | | 2022-07-29 | [facility] | 1.015 | (missing) | (missing) | | (unavailable | 07:48:07 [facility] | | | | + + + +---------+ + + + + | Result panel 3088 | + + + + + + + + + | | 2022-07-29 | [facility] | MODERATE | (missing) | (missing) | | (unavailable | 07:48:07 [facility] | | | | + + + + + + + + + | Result panel 3089 | + + + + + +-------+ + + | | 2022-07-29 | [facility] | 6.0 | (missing) | (missing) | | (unavailable | 07:48:07 [facility] | | | | + + + +-------+ + + + + | Result panel 3090 | + + + + + + + + + | | 2022-07-29 | [facility] | NEGATIVE | (missing) | (missing) | | (unavailable | 07:48:07 [facility] | | | | + + + + + + + + + | Result panel 3091 | + + + + + + + + + | | 2022-07-29 | [facility] | NORMAL | (missing) | (missing) | | (unavailable | 07:48:07 [facility] | | | | + + + + + + + + + | Result panel 3092 | + + + + + + + + + | | 2022-07-29 | [facility] | NEGATIVE | (missing) | (missing) | | (unavailable | 07:48:07 [facility] | | | | + + + + + + + + + | Result panel 3093 | + + + + + + + + + | | 2022-07-29 | [facility] | NEGATIVE | (missing) | (missing) | | (unavailable | 07:48:07 [facility] | | | | + + + + + + + + + | Result panel 3094 | + + + + + +-------+ + + | | 2022-07-29 | [facility] | 2-3 | (missing) | (missing) | | (unavailable | 07:48:07 [facility] | | | | + + + +-------+ + + + + | Result panel 3095 | + + + + + +-------+ + + | | 2022-07-29 | [facility] | 2-3 | (missing) | (missing) | | (unavailable | 07:48:07 [facility] | | | | + + + +-------+ + + + + | Result panel 3096 | + + + + + + + + + | | 2022-07-29 | [facility] | SQUAMOUS 4+ | (missing) | (missing) | | (unavailable | 07:48:07 [facility] | | | | + + + + + + + + + | Result panel 3097 | + + + + + + + + + | | 2022-07-29 | [facility] | NONE SEEN | (missing) | (missing) | | (unavailable | 07:48:07 [facility] | | | | + + + + + + + + + | Result panel 3098 | + + + + + +------+ + + | | 2022-07-29 | [facility] | 1+ | (missing) | (missing) | | (unavailable | 07:48:07 [facility] | | | | + + + +------+ + + + + | Result panel 3099 | + + + + + + + + + | | 2022-07-29 | [facility] | NONE SEEN | (missing) | (missing) | | (unavailable | 07:48:07 [facility] | | | | + + + + + + + + + | Result panel 3100 | + + + + + +------+ + + | | 2022-07-29 | [facility] | No | (missing) | (missing) | | (unavailable | 07:48:07 [facility] | | | | + + + +------+ + + + + | Result panel 3101 | + + + + + + + + + | | 2022-07-29 | [facility] | CLEAN CATCH | (missing) | (missing) | | (unavailable | 07:48:07 [facility] | | | | + + + + + + + + + | Result panel 3102 | + + + + + +-------+ + + | | 2022-07-29 | [facility] | 2-3 | (missing) | (missing) | | (unavailable | 07:48:07 [facility] | | | | + + + +-------+ + + + + | Result panel 3103 | + + + + + +-------+ + + | | 2022-07-29 | [facility] | 2-3 | (missing) | (missing) | | (unavailable | 07:48:07 [facility] | | | | + + + +-------+ + + + + | Result panel 3104 | + + + + + + + + + | | 2022-07-29 | [facility] | SQUAMOUS 4+ | (missing) | (missing) | | (unavailable | 07:48:07 [facility] | | | | + + + + + + + + + | Result panel 3105 | + + + + + + + + + | | 2022-07-29 | [facility] | NONE SEEN | (missing) | (missing) | | (unavailable | 07:48:07 [facility] | | | | + + + + + + + + + | Result panel 3106 | + + + + + +------+ + + | | 2022-07-29 | [facility] | 1+ | (missing) | (missing) | | (unavailable | 07:48:07 [facility] | | | | + + + +------+ + + + + | Result panel 3107 | + + + + + + + + + | | 2022-07-29 | [facility] | NONE SEEN | (missing) | (missing) | | (unavailable | 07:48:07 [facility] | | | | + + + + + + + + + | Result panel 3108 | + + + + + +------+ + + | | 2022-07-29 | [facility] | No | (missing) | (missing) | | (unavailable | 07:48:07 [facility] | | | | + + + +------+ + + + + | Result panel 3109 | + + + + + + + + + | | 2022-07-29 | [facility] | CLEAN CATCH | (missing) | (missing) | | (unavailable | 07:48:07 [facility] | | | | + + + + + + + + + | Result panel 3110 | + + + + + +-------+ + + | | 2022-07-29 | [facility] | 2-3 | (missing) | (missing) | | (unavailable | 07:48:07 [facility] | | | | + + + +-------+ + + + + | Result panel 3111 | + + + + + +-------+ + + | | 2022-07-29 | [facility] | 2-3 | (missing) | (missing) | | (unavailable | 07:48:07 [facility] | | | | + + + +-------+ + + + + | Result panel 3112 | + + + + + + + + + | | 2022-07-29 | [facility] | SQUAMOUS 4+ | (missing) | (missing) | | (unavailable | 07:48:07 [facility] | | | | + + + + + + + + + | Result panel 3113 | + + + + + + + + + | | 2022-07-29 | [facility] | NONE SEEN | (missing) | (missing) | | (unavailable | 07:48:07 [facility] | | | | + + + + + + + + + | Result panel 3114 | + + + + + +------+ + + | | 2022-07-29 | [facility] | 1+ | (missing) | (missing) | | (unavailable | 07:48:07 [facility] | | | | + + + +------+ + + + + | Result panel 3115 | + + + + + + + + + | | 2022-07-29 | [facility] | NONE SEEN | (missing) | (missing) | | (unavailable | 07:48:07 [facility] | | | | + + + + + + + + + | Result panel 3116 | + + + + + +------+ + + | | 2022-07-29 | [facility] | No | (missing) | (missing) | | (unavailable | 07:48:07 [facility] | | | | + + + +------+ + + + + | Result panel 3117 | + + + + + + + + + | | 2022-07-29 | [facility] | CLEAN CATCH | (missing) | (missing) | | (unavailable | 07:48:07 [facility] | | | | + + + + + + + + + | Result panel 3118 | + + + + + +-------+ + + | | 2022-07-29 | [facility] | 265 | (missing) | (missing) | | (unavailable | 09::07 | [facility] | | | | + + + +-------+ + + + + | Result panel 3119 | + + + + + +-------+ + + | | 2022-07-29 | [facility] | 265 | (missing) | (missing) | | (unavailable | 09:22:07 [facility] | | | | + + + +-------+ + + + + | Result panel 3120 | + + + + + +------+ + + | | 2022-07-31 | [facility] | 71 | (missing) | (missing) | | (unavailable | 08:20:07 [facility] | | | | + + + +------+ + + + + | Result panel 3121 | + + + + + +-----+ + + | | 2022-07-31 | [facility] | 7 | (missing) | (missing) | | (unavailable | 08:20:07 [facility] | | | | + + + +-----+ + + + + | Result panel 3122 | + + + + + +------+ + + | | 2022-07-31 | [facility] | 20 | (missing) | (missing) | | (unavailable | 08:20:07 [facility] | | | | + + + +------+ + + + + | Result panel 3123 | + + + + + +-----+ + + | | 2022-07-31 | [facility] | 2 | (missing) | (missing) | | (unavailable | 08:20:07 [facility] | | | | + + + +-----+ + + + + | Result panel 3124 | + + + + + +--------+ + + | | 2022-07-31 | [facility] | 18.9 | (missing) | (missing) | | (unavailable | 08:20:07 [facility] | | | | + + + +--------+ + + + + | Result panel 3125 | + + + + + +--------+ + + | | 2022-07-31 | [facility] | 4.14 | (missing) | (missing) | | (unavailable | 08:20:07 [facility] | | | | + + + +--------+ + + + + | Result panel 3126 | + + + + + +--------+ + + | | 2022-07-31 | [facility] | 10.4 | (missing) | (missing) | | (unavailable | 08:20:07 [facility] | | | | + + + +--------+ + + + + | Result panel 3127 | + + + + + +--------+ + + | | 2022-07-31 | [facility] | 32.2 | (missing) | (missing) | | (unavailable | 08:20:07 [facility] | | | | + + + +--------+ + + + + | Result panel 3128 | + + + + + +--------+ + + | | 2022-07-31 | [facility] | 77.8 | (missing) | (missing) | | (unavailable | 08:20:07 [facility] | | | | + + + +--------+ + + + + | Result panel 3129 | + + + + + +--------+ + + | | 2022-07-31 | [facility] | 25.2 | (missing) | (missing) | | (unavailable | 08:20:07 [facility] | | | | + + + +--------+ + + + + | Result panel 3130 | + + + + + +--------+ + + | | 2022-07-31 | [facility] | 32.4 | (missing) | (missing) | | (unavailable | 08:20:07 [facility] | | | | + + + +--------+ + + + + | Result panel 3131 | + + + + + +--------+ + + | | 2022-07-31 | [facility] | 18.9 | (missing) | (missing) | | (unavailable | 08:20:07 [facility] | | | | + + + +--------+ + + + + | Result panel 3132 | + + + + + +-------+ + + | | 2022-07-31 | [facility] | 342 | (missing) | (missing) | | (unavailable | 08:20:07 [facility] | | | | + + + +-------+ + + + + | Result panel 3133 | + + + + + +------+ + + | | 2022-07-31 | [facility] | 71 | (missing) | (missing) | | (unavailable | 08:20:07 [facility] | | | | + + + +------+ + + + + | Result panel 3134 | + + + + + +-----+ + + | | 2022-07-31 | [facility] | 7 | (missing) | (missing) | | (unavailable | 08:20:07 [facility] | | | | + + + +-----+ + + + + | Result panel 3135 | + + + + + +------+ + + | | 2022-07-31 | [facility] | 20 | (missing) | (missing) | | (unavailable | 08:20:07 [facility] | | | | + + + +------+ + + + + | Result panel 3136 | + + + + + +-----+ + + | | 2022-07-31 | [facility] | 2 | (missing) | (missing) | | (unavailable | 08:20:07 [facility] | | | | + + + +-----+ + + + + | Result panel 3137 | + + + + + +-------+---------+ + | | 2022-07-31 | [facility] | 328 | mg/dL | (missing) | | (unavailable | 08:20:07 [facility] | | | | + + + +-------+---------+ + + + | Result panel 3138 | + + + + + +-----+---------+ + | | 2022-07-31 | [facility] | 8 | mg/dL | (missing) | | (unavailable | 08:20:07 [facility] | | | | + + + +-----+---------+ + + + | Result panel 3139 | + + + + + +--------+---------+ + | | 2022-07-31 | [facility] | 0.68 | mg/dL | (missing) | | (unavailable | 08:20:07 | [facility] | | | | + + + +--------+---------+ + + + | Result panel 3140 | + + + + + +-------+ + + | | 2022-07-31 | [facility] | 119 | (missing) | (missing) | | (unavailable | 08:20:07 | [facility] | | | | + + + +-------+ + + + + | Result panel 3141 | + + + + + +---------+ + + | | 2022-07-31 | [facility] | 11.76 | (missing) | (missing) | | (unavailable | 08:20:07 | [facility] | | | | + + + +---------+ + + + + | Result panel 3142 | + + + + + +-------+ + + | | 2022-07-31 | [facility] | 130 | (missing) | (missing) | | (unavailable | 08:20:07 | [facility] | | | | + + + +-------+ + + + + | Result panel 3143 | + + + + + +-------+ + + | | 2022-07-31 | [facility] | 4.2 | (missing) | (missing) | | (unavailable | 08:20:07 | [facility] | | | | + + + +-------+ + + + + | Result panel 3144 | + + + + + +------+ + + | | 2022-07-31 | [facility] | 95 | (missing) | (missing) | | (unavailable | 08:20:07 | [facility] | | | | + + + +------+ + + + + | Result panel 3145 | + + + + + +------+ + + | | 2022-07-31 | [facility] | 25 | (missing) | (missing) | | (unavailable | 08:20:07 [facility] | | | | + + + +------+ + + + + | Result panel 3146 | + + + + + +--------+ + + | | 2022-07-31 | [facility] | 14.2 | (missing) | (missing) | | (unavailable | 08:20:07 | [facility] | | | | + + + +--------+ + + + + | Result panel 3147 | + + + + + +-------+---------+ + | | 2022-07-31 | [facility] | 9.2 | mg/dL | (missing) | | (unavailable | 08:20:07 | [facility] | | | | + + + +-------+---------+ + + + | Result panel 3148 | + + + + + +------+ + + | | 2022-07-31 | [facility] | 71 | (missing) | (missing) | | (unavailable | 08:20:07 | [facility] | | | | + + + +------+ + + + + | Result panel 3149 | + + + + + +-----+ + + | | 2022-07-31 | [facility] | 7 | (missing) | (missing) | | (unavailable | 08:20:07 | [facility] | | | | + + + +-----+ + + + + | Result panel 3150 | + + + + + +------+ + + | | 2022-07-31 | [facility] | 20 | (missing) | (missing) | | (unavailable | 08:20:07 | [facility] | | | | + + + +------+ + + + + | Result panel 3151 | + + + + + +-----+ + + | | 2022-07-31 | [facility] | 2 | (missing) | (missing) | | (unavailable | 08:20:07 | [facility] | | | | + + + +-----+ + + + + | Result panel 3152 | + + + + + +------+ + + | | 2022-07-31 | [facility] | 71 | (missing) | (missing) | | (unavailable | 08:20:07 | [facility] | | | | + + + +------+ + + + + | Result panel 3153 | + + + + + +-----+ + + | | 2022-07-31 | [facility] | 7 | (missing) | (missing) | | (unavailable | 08:20:07 | [facility] | | | | + + + +-----+ + + + + | Result panel 3154 | + + + + + +------+ + + | | 2022-07-31 | [facility] | 20 | (missing) | (missing) | | (unavailable | 08:20:07 | [facility] | | | | + + + +------+ + + + + | Result panel 3155 | + + + + + +-----+ + + | | 2022-07-31 | [facility] | 2 | (missing) | (missing) | | (unavailable | 08:20:07 | [facility] | | | | + + + +-----+ + + + + | Result panel 3156 | + + + + + +-----+ + + | | 2022-08-05 | [facility] | A | (missing) | (missing) | | (unavailable | 07:00:07 | [facility] | | | | + + + +-----+ + + + + | Result panel 3157 | + + + + + + + + + | | 2022-08-05 | [facility] | POSITIVE | (missing) | (missing) | | (unavailable | 07:00:07 | [facility] | | | | + + + + + + + + + | Result panel 3158 | + + + + + + + + + | | 2022-08-05 | [facility] | NEGATIVE | (missing) | (missing) | | (unavailable | 07:00:07 | [facility] | | | | ) | | [facility] | | | | + + + + + + + + + | Result panel 3159 | + + + + + + + + + | | 2022-08-05 | [facility] | BLOOD IN | (missing) | (missing) | | (unavailable | 07:00:07 | [facility] | | | | + + + + + + + + + | Result panel 3160 | + + + + + +-----+ + + | | 2022-08-05 | [facility] | A | (missing) | (missing) | | (unavailable | 07:00:07 | [facility] | | | | + + + +-----+ + + + + | Result panel 3161 | + + + + + + + + + | | 2022-08-05 | [facility] | POSITIVE | (missing) | (missing) | | (unavailable | 07:00:07 | [facility] | | | | + + + + + + + + + | Result panel 3162 | + + + + + + + + + | | 2022-08-05 | [facility] | NEGATIVE | (missing) | (missing) | | (unavailable | 07:00:07 | [facility] | | | | + + + + + + + + + | Result panel 3163 | + + + + + + + + + | | 2022-08-05 | [facility] | BLOOD IN | (missing) | (missing) | | (unavailable | 07:00:07 | [facility] | | | | + + + + + + + + + | Result panel 3164 | + + + + + + + + + | | 2022-08-05 | [facility] | (missing) | (missing) | (missing) | | (unavailable | 07::07 | [facility] | | | | + + + + + + + + + | Result panel 3165 | + + + + + +-------+---------+ + | | 2022-08-05 | [facility] | 190 | mg/dL | (missing) | | (unavailable | 07:00:07 | [facility] | | | | + + + +-------+---------+ + + + | Result panel 3166 | + + + + + +------+---------+ + | | 2022-08-05 | [facility] | 19 | mg/dL | (missing) | | (unavailable | 07:00:07 | [facility] | | | | + + + +------+---------+ + + + | Result panel 3167 | + + + + + +--------+---------+ + | | 2022-08-05 | [facility] | 0.81 | mg/dL | (missing) | | (unavailable | 07:00:07 | [facility] | | | | + + + +--------+---------+ + + + | Result panel 3168 | + + + + + +------+ + + | | 2022-08-05 | [facility] | 99 | (missing) | (missing) | | (unavailable | 07:00:07 | [facility] | | | | + + + +------+ + + + + | Result panel 3169 | + + + + + +---------+ + + | | 2022-08-05 | [facility] | 23.45 | (missing) | (missing) | | (unavailable | 07:00:07 | [facility] | | | | + + + +---------+ + + + + | Result panel 3170 | + + + + + +-------+ + + | | 2022-08-05 | [facility] | 133 | (missing) | (missing) | | (unavailable | 07:00:07 | [facility] | | | | + + + +-------+ + + + + | Result panel 3171 | + + + + + +-------+ + + | | 2022-08-05 | [facility] | 4.1 | (missing) | (missing) | | (unavailable | 07:00:07 | [facility] | | | | + + + +-------+ + + + + | Result panel 3172 | + + + + + +------+ + + | | 2022-08-05 | [facility] | 96 | (missing) | (missing) | | (unavailable | 07:00:07 | [facility] | | | | + + + +------+ + + + + | Result panel 3173 | + + + + + +------+ + + | | 2022-08-05 | [facility] | 23 | (missing) | (missing) | | (unavailable | 07:00:07 | [facility] | | | | + + + +------+ + + + + | Result panel 3174 | + + + + + +--------+ + + | | 2022-08-05 | [facility] | 18.1 | (missing) | (missing) | | (unavailable | 07:00:07 | [facility] | | | | + + + +--------+ + + + + | Result panel 3175 | + + + + + +-------+---------+ + | | 2022-08-05 | [facility] | 9.4 | mg/dL | (missing) | | (unavailable | 07:00:07 | [facility] | | | | + + + +-------+---------+ + + + | Result panel 3176 | + + + + + +-------+ + + | | 2022-08-05 | [facility] | 9.1 | (missing) | (missing) | | (unavailable | 07:00:07 | [facility] | | | | + + + +-------+ + + + + | Result panel 3177 | + + + + + +-------+ + + | | 2022-08-05 | [facility] | 3.4 | (missing) | (missing) | | (unavailable | 07:00:07 | [facility] | | | | + + + +-------+ + + + + | Result panel 3178 | + + + + + +-------+ + + | | 2022-08-05 | [facility] | 5.7 | (missing) | (missing) | | (unavailable | 07:00:07 | [facility] | | | | + + + +-------+ + + + + | Result panel 3179 | + + + + + +--------+ + + | | 2022-08-05 | [facility] | 0.60 | (missing) | (missing) | | (unavailable | 07:00:07 | [facility] | | | | + + + +--------+ + + + + | Result panel 3180 | + + + + + +-------+ + + | | 2022-08-05 | [facility] | 0.1 | (missing) | (missing) | | (unavailable | 07:00:07 | [facility] | | | | + + + +-------+ + + + + | Result panel 3181 | + + + + + +------+ + + | | 2022-08-05 | [facility] | 17 | (missing) | (missing) | | (unavailable | 07:00:07 | [facility] | | | | + + + +------+ + + + + | Result panel 3182 | + + + + + +------+ + + | | 2022-08-05 | [facility] | 17 | (missing) | (missing) | | (unavailable | 07:00:07 | [facility] | | | | + + + +------+ + + + + | Result panel 3183 | + + + + + +-------+ + + | | 2022-08-05 | [facility] | 119 | (missing) | (missing) | | (unavailable | 07:00:07 | [facility] | | | | + + + +-------+ + + + + | Result panel 3184 | + + + + + +-------+ + + | | 2022-08-05 | [facility] | 130 | (missing) | (missing) | | (unavailable | 07:00:07 | [facility] | | | | + + + +-------+ + + + + | Result panel 3185 | + + + + + +-----+ + + | | 2022-08-05 | [facility] | A | (missing) | (missing) | | (unavailable | 07:00:07 | [facility] | | | | + + + +-----+ + + + + | Result panel 3186 | + + + + + + + + + | | 2022-08-05 | [facility] | POSITIVE | (missing) | (missing) | | (unavailable | 07:00:07 | [facility] | | | | + + + + + + + + + | Result panel 3187 | + + + + + + + + + | | 2022-08-05 | [facility] | NEGATIVE | (missing) | (missing) | | (unavailable | 07:00:07 | [facility] | | | | + + + + + + + + + | Result panel 3188 | + + + + + + + + + | | 2022-08-05 | [facility] | BLOOD IN | (missing) | (missing) | | (unavailable | 07:00:07 | [facility] | [facility] | | | | + + + + + + + + + | Result panel 3189 | + + + + + +-----+ + + | | 2022-08-05 | [facility] | A | (missing) | (missing) | | (unavailable | 07:00:07 | [facility] | | | | + + + +-----+ + + + + | Result panel 3190 | + + + + + + + + + | | 2022-08-05 | [facility] | POSITIVE | (missing) | (missing) | | (unavailable | 07:00:07 | [facility] | | | | + + + + + + + + + | Result panel 3191 | + + + + + + + + + | | 2022-08-05 | [facility] | NEGATIVE | (missing) | (missing) | | (unavailable | 07::07 | [facility] | | | | + + + + + + + + + | Result panel 3192 | + + + + + + + + + | | 2022-08-05 | [facility] | BLOOD IN | (missing) | (missing) | | (unavailable | 07:: | [facility] | | [facility] | | | | + + + + + + + + + | Result panel 3193 | + + + + + +-------+ + + | | 2022-08-05 | [facility] | 173 | (missing) | (missing) | | (unavailable | 07:30:07 | [facility] | | | | + + + +-------+ + + + + | Result panel 3194 | + + + + + +-------+ + + | | 2022-08-05 | [facility] | 173 | (missing) | (missing) | | (unavailable | :07 | [facility] | | | | + + + +-------+ + + + + | Result panel 3195 | + + + + + +-------+ + + | | 2022-08-05 | [facility] | 173 | (missing) | (missing) | | (unavailable | 07:30:07 | [facility] | | | | + + + +-------+ + + + + | Result panel 3196 | + + + + + + + + + | | 2022-08-05 | [facility] | YELLOW | (missing) | (missing) | | (unavailable | 08:00:07 | [facility] | | | | + + + + + + + + + | Result panel 3197 | + + + + + + + + + | | 2022-08-05 | [facility] | SL CLOUDY | (missing) | (missing) | | (unavailable | 08:00:07 | [facility] | | | | + + + + + + + + + | Result panel 3198 | + + + + + + + + + | | 2022-08-05 | [facility] | >=1000 | (missing) | (missing) | | (unavailable | 08:00:07 | [facility] | | | | + + + + + + + + + | Result panel 3199 | + + + + + + + + + | | 2022-08-05 | [facility] | NEGATIVE | (missing) | (missing) | | (unavailable | 08:00:07 | [facility] | | | | + + + + + + + + + | Result panel 3200 | + + + + + + + + + | | 2022-08-05 | [facility] | NEGATIVE | (missing) | (missing) | | (unavailable | 08:00:07 | [facility] | | | | + + + + + + + + + | Result panel 3201 | + + + + + +---------+ + + | | 2022-08-05 | [facility] | 1.020 | (missing) | (missing) | | (unavailable | 08:00:07 | [facility] | | | | + + + +---------+ + + + + | Result panel 3202 | + + + + + + + + + | | 2022-08-05 | [facility] | NEGATIVE | (missing) | (missing) | | (unavailable | 08:00:07 | [facility] | | | | + + + + + + + + + | Result panel 3203 | + + + + + +-------+ + + | | 2022-08-05 | [facility] | 6.0 | (missing) | (missing) | | (unavailable | 08:00:07 | [facility] | | | | + + + +-------+ + + + + | Result panel 3204 | + + + + + +------+ + + | | 2022-08-05 | [facility] | 30 | (missing) | (missing) | | (unavailable | 08:00:07 | [facility] | | | | + + + +------+ + + + + | Result panel 3205 | + + + + + + + + + | | 2022-08-05 | [facility] | NORMAL | (missing) | (missing) | | (unavailable | 08:00:07 | [facility] | | | | + + + + + + + + + | Result panel 3206 | + + + + + + + + + | | 2022-08-05 | [facility] | NEGATIVE | (missing) | (missing) | | (unavailable | 08:00:07 | [facility] | | | | + + + + + + + + + | Result panel 3207 | + + + + + + + + + | | 2022-08-05 | [facility] | NEGATIVE | (missing) | (missing) | | (unavailable | 08:00:07 | [facility] | | | | + + + + + + + + + | Result panel 3208 | + + + + + + + + + | | 2022-08-05 | [facility] | NEGATIVE | (missing) | (missing) | | (unavailable | 08:00:07 | [facility] | | | | + + + + + + + + + | Result panel 3209 | + + + + + + + + + | | 2022-08-05 | [facility] | NEGATIVE | (missing) | (missing) | | (unavailable | 08::07 | [facility] | | | | + + + + + + + + + | Result panel 3210 | + + + + + + + + + | | 2022-08-05 | [facility] | NEGATIVE | (missing) | (missing) | | (unavailable | 08:00:07 | [facility] | | | | + + + + + + + + + | Result panel 3211 | + + + + + + + + + | | 2022-08-05 | [facility] | NEGATIVE | (missing) | (missing) | | (unavailable | 08:00:07 | [facility] | | | | + + + + + + + + + | Result panel 3212 | + + + + + + + + + | | 2022-08-05 | [facility] | NEGATIVE | (missing) | (missing) | | (unavailable | 08:00:07 | [facility] | | | | + + + + + + + + + | Result panel 3213 | + + + + + + + + + | | 2022-08-05 | [facility] | NEGATIVE | (missing) | (missing) | | (unavailable | 08:00:07 | [facility] | | | | + + + + + + + + + | Result panel 3214 | + + + + + + + + + | | 2022-08-05 | [facility] | NEGATIVE | (missing) | (missing) | | (unavailable | 08:00:07 | [facility] | | | | + + + + + + + + + | Result panel 3215 | + + + + + + + + + | | 2022-08-05 | [facility] | NEGATIVE | (missing) | (missing) | | (unavailable | 08:00:07 | [facility] | | | | + + + + + + + + + | Result panel 3216 | + + + + + + + + + | | 2022-08-05 | [facility] | NEGATIVE | (missing) | (missing) | | (unavailable | 08:00:07 | [facility] | | | | + + + + + + + + + | Result panel 3217 | + + + + + + + + + | | 2022-08-05 | [facility] | NEGATIVE | (missing) | (missing) | | (unavailable | 08:00:07 | [facility] | | | | + + + + + + + + + | Result panel 3218 | + + + + + + + + + | | 2022-08-05 | [facility] | NEGATIVE | (missing) | (missing) | | (unavailable | 08:00:07 | [facility] | | | | + + + + + + + + + | Result panel 321 | + + + + + + + + + | | 2022-08-05 | [facility] | NEGATIVE | (missing) | (missing) | | (unavailable | 08:00:07 | [facility] | | | | + + + + + + + + + | Result panel 3220 | + + + + + + + + + | | 2022-08-05 | [facility] | POSITIVE | (missing) | (missing) | | (unavailable | 08:00:07 | [facility] | | | | + + + + + + + + + | Result panel 3221 | + + + + + + + + + | | 2022-08-05 | [facility] | NEGATIVE | (missing) | (missing) | | (unavailable | 08:: | [facility] | | | | + + + + + + + + + | Result panel 322 | + + + + + + + + + | | 2022-08-05 | [facility] | NEGATIVE | (missing) | (missing) | | (unavailable | 08::07 | [facility] | | | | + + + + + + + + + | Result panel 322 | + + + + + + + + + | | 2022-08-05 | [facility] | NEGATIVE | (missing) | (missing) | | (unavailable | 08:00:07 | [facility] | | | | + + + + + + + + + | Result panel 3224 | + + + + + + + + + | | 2022-08-05 | [facility] | NEGATIVE | (missing) | (missing) | | (unavailable | 08:00:07 | [facility] | | | | + + + + + + + + + | Result panel 3225 | + + + + + + + + + | | 2022-08-05 | [facility] | NEGATIVE | (missing) | (missing) | | (unavailable | 08:00:07 | [facility] | | | | + + + + + + + + + | Result panel 3226 | + + + + + + + + + | | 2022-08-05 | [facility] | NEGATIVE | (missing) | (missing) | | (unavailable | 08:00:07 | [facility] | | | | + + + + + + + + + | Result panel 3227 | + + + + + + + + + | | 2022-08-05 | [facility] | NEGATIVE | (missing) | (missing) | | (unavailable | 08:00:07 | [facility] | | | | + + + + + + + + + | Result panel 3228 | + + + + + + + + + | | 2022-08-05 | [facility] | NEGATIVE | (missing) | (missing) | | (unavailable | 08:00:07 | [facility] | | | | + + + + + + + + + | Result panel 3229 | + + + + + + + + + | | 2022-08-05 | [facility] | NEGATIVE | (missing) | (missing) | | (unavailable | 08:00:07 | [facility] | | | | + + + + + + + + + | Result panel 3230 | + + + + + + + + + | | 2022-08-05 | [facility] | NEGATIVE | (missing) | (missing) | | (unavailable | 08:00:07 | [facility] | | | | + + + + + + + + + | Result panel 3231 | + + + + + + + + + | | 2022-08-05 | [facility] | NEGATIVE | (missing) | (missing) | | (unavailable | 08:00:07 | [facility] | | | | + + + + + + + + + | Result panel 3232 | + + + + + + + + + | | 2022-08-05 | [facility] | NEGATIVE | (missing) | (missing) | | (unavailable | 08:00:07 | [facility] | | | | + + + + + + + + + | Result panel 3233 | + + + + + + + + + | | 2022-08-05 | [facility] | POSITIVE | (missing) | (missing) | | (unavailable | 08:00:07 | [facility] | | | | + + + + + + + + + | Result panel 3234 | + + + + + +-------+ + + | | 2022-08-05 | [facility] | 9.5 | (missing) | (missing) | | (unavailable | 09:31:07 | [facility] | | | | + + + +-------+ + + + + | Result panel 3235 | + + + + + +--------+ + + | | 2022-08-05 | [facility] | 4.55 | (missing) | (missing) | | (unavailable | 09:31:07 | [facility] | | | | + + + +--------+ + + + + | Result panel 3236 | + + + + + +--------+ + + | | 2022-08-05 | [facility] | 10.7 | (missing) | (missing) | | (unavailable | 09:31:07 | [facility] | | | | + + + +--------+ + + + + | Result panel 3237 | + + + + + +--------+ + + | | 2022-08-05 | [facility] | 34.4 | (missing) | (missing) | | (unavailable | 09:31:07 | [facility] | | | | + + + +--------+ + + + + | Result panel 3238 | + + + + + +--------+ + + | | 2022-08-05 | [facility] | 75.6 | (missing) | (missing) | | (unavailable | 09:31:07 | [facility] | | | | + + + +--------+ + + + + | Result panel 3239 | + + + + + +--------+ + + | | 2022-08-05 | [facility] | 23.5 | (missing) | (missing) | | (unavailable | 09:31:07 | [facility] | | | | + + + +--------+ + + + + | Result panel 3240 | + + + + + +--------+ + + | | 2022-08-05 | [facility] | 31.1 | (missing) | (missing) | | (unavailable | 09:31:07 | [facility] | | | | + + + +--------+ + + + + | Result panel 3241 | + + + + + +--------+ + + | | 2022-08-05 | [facility] | 19.5 | (missing) | (missing) | | (unavailable | 09:31:07 | [facility] | | | | + + + +--------+ + + + + | Result panel 3242 | + + + + + +-------+ + + | | 2022-08-05 | [facility] | 417 | (missing) | (missing) | | (unavailable | 09:31:07 | [facility] | | | | + + + +-------+ + + + + | Result panel 3243 | + + + + + +--------+ + + | | 2022-08-05 | [facility] | 72.2 | (missing) | (missing) | | (unavailable | 09:31:07 | [facility] | | | | + + + +--------+ + + + + | Result panel 3244 | + + + + + +--------+ + + | | 2022-08-05 | [facility] | 19.5 | (missing) | (missing) | | (unavailable | 09:31:07 | [facility] | | | | + + + +--------+ + + + + | Result panel 3245 | + + + + + +-------+ + + | | 2022-08-05 | [facility] | 6.6 | (missing) | (missing) | | (unavailable | 09:31:07 [facility] | | | | + + + +-------+ + + + + | Result panel 3246 | + + + + + +-------+ + + | | 2022-08-05 | [facility] | 1.0 | (missing) | (missing) | | (unavailable | 09:31:07 | [facility] | | | | + + + +-------+ + + + + | Result panel 3247 | + + + + + +-------+ + + | | 2022-08-05 | [facility] | 0.7 | (missing) | (missing) | | (unavailable | 09:31:07 | [facility] | | | | + + + +-------+ + + + + | Result panel 3248 | + + + + + + + + + | | 2022-08-05 | [facility] | (missing) | (missing) | (missing) | | (unavailable | 09:31:07 | [facility] | | | | + + + + + + + + + | Result panel 3249 | + + + + + + + + + | | 2022-08-13 | [facility] | YELLOW | (missing) | (missing) | | (unavailable | 06:37:07 | [facility] | | | | + + + + + + + + + | Result panel 3250 | + + + + + +---------+ + + | | 2022-08-13 | [facility] | CLEAR | (missing) | (missing) | | (unavailable | 06:37:07 | [facility] | | | | + + + +---------+ + + + + | Result panel 3251 | + + + + + + + + + | | 2022-08-13 | [facility] | >=1000 | (missing) | (missing) | | (unavailable | 06:37:07 | [facility] | | | | + + + + + + + + + | Result panel 325 | + + + + + + + + + | | 2022-08-13 | [facility] | NEGATIVE | (missing) | (missing) | | (unavailable | 06:37:07 | [facility] | | | | + + + + + + + + + | Result panel 325 | + + + + + + + + + | | 2022-08-13 | [facility] | NEGATIVE | (missing) | (missing) | | (unavailable | 06:37:07 | [facility] | | | | + + + + + + + + + | Result panel 3254 | + + + + + +---------+ + + | | 2022-08-13 | [facility] | 1.010 | (missing) | (missing) | | (unavailable | 06:37:07 | [facility] | | | | + + + +---------+ + + + + | Result panel 3255 | + + + + + + + + + | | 2022-08-13 | [facility] | NEGATIVE | (missing) | (missing) | | (unavailable | 06:37:07 | [facility] | | | | + + + + + + + + + | Result panel 3256 | + + + + + +-------+ + + | | 2022-08-13 | [facility] | 6.0 | (missing) | (missing) | | (unavailable | 06:37:07 [facility] | | | | + + + +-------+ + + + + | Result panel 3257 | + + + + + + + + + | | 2022-08-13 | [facility] | NEGATIVE | (missing) | (missing) | | (unavailable | 06:37:07 | [facility] | | | | + + + + + + + + + | Result panel 3258 | + + + + + + + + + | | 2022-08-13 | [facility] | NORMAL | (missing) | (missing) | | (unavailable | 06:37:07 | [facility] | | | | + + + + + + + + + | Result panel 3259 | + + + + + + + + + | | 2022-08-13 | [facility] | NEGATIVE | (missing) | (missing) | | (unavailable | 06:37:07 | [facility] | | | | + + + + + + + + + | Result panel 3260 | + + + + + + + + + | | 2022-08-13 | [facility] | NEGATIVE | (missing) | (missing) | | (unavailable | 06:37:07 | [facility] | | | | + + + + + + + + + | Result panel 3261 | + + + + + +-------+---------+ + | | 2022-08-13 | [facility] | 1.3 | mg/dL | (missing) | | (unavailable | 06:56:07 | [facility] | | | | + + + +-------+---------+ + + + | Result panel 3262 | + + + + + +-------+---------+ + | | 2022-08-13 | [facility] | 1.3 | mg/dL | (missing) | | (unavailable | 06:56:07 | [facility] | | | | + + + +-------+---------+ + + + | Result panel 3263 | + + + + + +-------+ + + | | 2022-08-13 | [facility] | 8.3 | (missing) | (missing) | | (unavailable | 06:56:07 [facility] | | | | + + + +-------+ + + + + | Result panel 3264 | + + + + + +--------+ + + | | 2022-08-13 | [facility] | 4.43 | (missing) | (missing) | | (unavailable | 06:56:07 | [facility] | | | | + + + +--------+ + + + + | Result panel 3265 | + + + + + +--------+ + + | | 2022-08-13 | [facility] | 10.4 | (missing) | (missing) | | (unavailable | 06:56:07 | [facility] | | | | + + + +--------+ + + + + | Result panel 3266 | + + + + + +--------+ + + | | 2022-08-13 | [facility] | 33.2 | (missing) | (missing) | | (unavailable | 06:56:07 | [facility] | | | | + + + +--------+ + + + + | Result panel 3267 | + + + + + +--------+ + + | | 2022-08-13 | [facility] | 74.9 | (missing) | (missing) | | (unavailable | 06:56:07 | [facility] | | | | + + + +--------+ + + + + | Result panel 3268 | + + + + + +--------+ + + | | 2022-08-13 | [facility] | 23.5 | (missing) | (missing) | | (unavailable | 06:56:07 [facility] | | | | + + + +--------+ + + + + | Result panel 3269 | + + + + + +--------+ + + | | 2022-08-13 | [facility] | 31.4 | (missing) | (missing) | | (unavailable | 06:56:07 [facility] | | | | + + + +--------+ + + + + | Result panel 3270 | + + + + + +--------+ + + | | 2022-08-13 | [facility] | 19.9 | (missing) | (missing) | | (unavailable | 06:56:07 [facility] | | | | + + + +--------+ + + + + | Result panel 3271 | + + + + + +-------+ + + | | 2022-08-13 | [facility] | 374 | (missing) | (missing) | | (unavailable | 06:56:07 [facility] | | | | + + + +-------+ + + + + | Result panel 3272 | + + + + + +--------+ + + | | 2022-08-13 | [facility] | 76.9 | (missing) | (missing) | | (unavailable | 06:56:07 [facility] | | | | + + + +--------+ + + + + | Result panel 3273 | + + + + + +--------+ + + | | 2022-08-13 | [facility] | 15.0 | (missing) | (missing) | | (unavailable | 06:56:07 | [facility] | | | | + + + +--------+ + + + + | Result panel 327 | + + + + + +-------+ + + | | 2022-08-13 | [facility] | 5.3 | (missing) | (missing) | | (unavailable | 06:56:07 [facility] | | | | + + + +-------+ + + + + | Result panel 3275 | + + + + + +-------+ + + | | 2022-08-13 | [facility] | 1.4 | (missing) | (missing) | | (unavailable | 06:56:07 [facility] | | | | + + + +-------+ + + + + | Result panel 3276 | + + + + + +-------+ + + | | 2022-08-13 | [facility] | 1.4 | (missing) | (missing) | | (unavailable | 06:56:07 | [facility] | | | | + + + +-------+ + + + + | Result panel 3277 | + + + + + +-------+---------+ + | | 2022-08-13 | [facility] | 493 | mg/dL | (missing) | | (unavailable | 06:56:07 | [facility] | | | | + + + +-------+---------+ + + + | Result panel 3278 | + + + + + +------+---------+ + | | 2022-08-13 | [facility] | 23 | mg/dL | (missing) | | (unavailable | 06:56:07 | [facility] | | | | + + + +------+---------+ + + + | Result panel 3279 | + + + + + +--------+---------+ + | | 2022-08-13 | [facility] | 1.07 | mg/dL | (missing) | | (unavailable | 06:56:07 | [facility] | | | | + + + +--------+---------+ + + + | Result panel 3280 | + + + + + +------+ + + | | 2022-08-13 | [facility] | 71 | (missing) | (missing) | | (unavailable | 06:56:07 | [facility] | | | | + + + +------+ + + + + | Result panel 3281 | + + + + + +---------+ + + | | 2022-08-13 | [facility] | 21.49 | (missing) | (missing) | | (unavailable | 06:56:07 | [facility] | | | | + + + +---------+ + + + + | Result panel 3282 | + + + + + +-------+ + + | | 2022-08-13 | [facility] | 136 | (missing) | (missing) | | (unavailable | 06:56:07 | [facility] | | | | + + + +-------+ + + + + | Result panel 3283 | + + + + + +-------+ + + | | 2022-08-13 | [facility] | 4.4 | (missing) | (missing) | | (unavailable | 06:56:07 [facility] | | | | + + + +-------+ + + + + | Result panel 3284 | + + + + + +------+ + + | | 2022-08-13 | [facility] | 99 | (missing) | (missing) | | (unavailable | 06:56:07 [facility] | | | | + + + +------+ + + + + | Result panel 3285 | + + + + + +------+ + + | | 2022-08-13 | [facility] | 24 | (missing) | (missing) | | (unavailable | 06:56:07 [facility] | | | | + + + +------+ + + + + | Result panel 3286 | + + + + + +--------+ + + | | 2022-08-13 | [facility] | 17.4 | (missing) | (missing) | | (unavailable | 06:56:07 [facility] | | | + + + +--------+ + + + + | Result panel 3287 | + + + + + +-------+---------+ + | | 2022-08-13 | [facility] | 9.0 | mg/dL | (missing) | | (unavailable | 06:56:07 [facility] | | | | + + + +-------+---------+ + + + | Result panel 3288 | + + + + + +-------+---------+ + | | 2022-08-13 | [facility] | 1.3 | mg/dL | (missing) | | (unavailable | 06:56:07 [facility] | | | + + + +-------+---------+ + + + | Result panel 3289 | + + + + + +-------+ + + | | 2022-08-13 | [facility] | 7.4 | (missing) | (missing) | | (unavailable | 06:56:07 [facility] | | | + + + +-------+ + + + + | Result panel 3290 | + + + + + +-------+ + + | | 2022-08-13 | [facility] | 3.2 | (missing) | (missing) | | (unavailable | 06:56:07 [facility] | | | + + + +-------+ + + + + | Result panel 3291 | + + + + + +-------+ + + | | 2022-08-13 | [facility] | 4.2 | (missing) | (missing) | | (unavailable | 06:56:07 [facility] | | | + + + +-------+ + + + + | Result panel 3292 | + + + + + +--------+ + + | | 2022-08-13 | [facility] | 0.76 | (missing) | (missing) | | (unavailable | 06:56:07 [facility] | | | + + + +--------+ + + + + | Result panel 3293 | + + + + + +-------+ + + | | 2022-08-13 | [facility] | 0.3 | (missing) | (missing) | | (unavailable | 06:56:07 [facility] | | | + + + +-------+ + + + + | Result panel 3294 | + + + + + +------+ + + | | 2022-08-13 | [facility] | 16 | (missing) | (missing) | | (unavailable | 06:56:07 [facility] | | | + + + +------+ + + + + | Result panel 3295 | + + + + + +------+ + + | | 2022-08-13 | [facility] | 24 | (missing) | (missing) | | (unavailable | 06:56:07 [facility] | | | + + + +------+ + + + + | Result panel 3296 | + + + + + +------+ + + | | 2022-08-13 | [facility] | 95 | (missing) | (missing) | | (unavailable | 06:56:07 [facility] | | | + + + +------+ + + + + | Result panel 3297 | + + + + + +-------+ + + | | 2022-08-13 | [facility] | 182 | (missing) | (missing) | | (unavailable | 06:56:07 [facility] | | | | + + + +-------+ + + + + | Result panel 3298 | + + + + + + + + + | | 2022-08-13 | [facility] | NEGATIVE | (missing) | (missing) | | (unavailable | 06:56:07 [facility] | | | + + + + + + + + + | Result panel 3299 | + + + + + +-------+ + + | | 2022-08-21 | [facility] | 0.6 | (missing) | (missing) | | (unavailable | 09:47:07 [facility] | | | + + + +-------+ + + + + | Result panel 3300 | + + + + + +------+ + + | | 2022-08-21 | [facility] | 14 | (missing) | (missing) | | (unavailable | 09:47:07 [facility] | | | + + + +------+ + + + + | Result panel 3301 | + + + + + +------+ + + | | 2022-08-21 | [facility] | 25 | (missing) | (missing) | | (unavailable | 09:47:07 [facility] | | | + + + +------+ + + + + | Result panel 3302 | + + + + + +-------+ + + | | 2022-08-21 | [facility] | 107 | (missing) | (missing) | | (unavailable | 09:47:07 [facility] | | | + + + +-------+ + + + + | Result panel 330 | + + + + + +-------+ + + | | 2022-08-21 | [facility] | 149 | (missing) | (missing) | | (unavailable | 09:47:07 [facility] | | | + + + +-------+ + + + + | Result panel 3304 | + + + + + + + + + | | 2022-08-21 | [facility] | NEGATIVE | (missing) | (missing) | | (unavailable | 09:47:07 [facility] | | | | + + + + + + + + + | Result panel 3305 | + + + + + + + + + | | 2022-08-21 | [facility] | NEGATIVE | (missing) | (missing) | | (unavailable | 09:47:07 [facility] | | | | + + + + + + + + + | Result panel 3306 | + + + + + +--------+ + + | | 2022-08-21 | [facility] | 11.2 | (missing) | (missing) | | (unavailable | 09:47:07 [facility] | | | + + + +--------+ + + + + | Result panel 3307 | + + + + + + + + + | | 2022-08-21 | [facility] | (missing) | (missing) | (missing) | | (unavailable | 09:47:07 [facility] | | | + + + + + + + + + | Result panel 3308 | + + + + + +--------+ + + | | 2022-08-21 | [facility] | 4.75 | (missing) | (missing) | | (unavailable | 09:47:07 [facility] | | | + + + +--------+ + + + + | Result panel 3309 | + + + + + +--------+ + + | | 2022-08-21 | [facility] | 11.1 | (missing) | (missing) | | (unavailable | 09:47:07 [facility] | | | + + + +--------+ + + + + | Result panel 3310 | + + + + + +--------+ + + | | 2022-08-21 | [facility] | 34.7 | (missing) | (missing) | | (unavailable | 09:47:07 [facility] | | | + + + +--------+ + + + + | Result panel 3311 | + + + + + +--------+ + + | | 2022-08-21 | [facility] | 73.1 | (missing) | (missing) | | (unavailable | 09:47:07 [facility] | | | + + + +--------+ + + + + | Result panel 3312 | + + + + + +--------+ + + | | 2022-08-21 | [facility] | 23.3 | (missing) | (missing) | | (unavailable | 09:47:07 [facility] | | | + + + +--------+ + + + + | Result panel 3313 | + + + + + +--------+ + + | | 2022-08-21 | [facility] | 31.9 | (missing) | (missing) | | (unavailable | 09:47:07 [facility] | | | + + + +--------+ + + + + | Result panel 3314 | + + + + + +--------+ + + | | 2022-08-21 | [facility] | 21.0 | (missing) | (missing) | | (unavailable | 09:47:07 [facility] | | | + + + +--------+ + + + + | Result panel 3315 | + + + + + +-------+ + + | | 2022-08-21 | [facility] | 223 | (missing) | (missing) | | (unavailable | 09:47:07 [facility] | | | + + + +-------+ + + + + | Result panel 3316 | + + + + + +--------+ + + | | 2022-08-21 | [facility] | 88.3 | (missing) | (missing) | | (unavailable | 09:47:07 [facility] | | | + + + +--------+ + + + + | Result panel 3317 | + + + + + +-------+ + + | | 2022-08-21 | [facility] | 5.0 | (missing) | (missing) | | (unavailable | 09:47:07 [facility] | | | + + + +-------+ + + + + | Result panel 3318 | + + + + + +-------+ + + | | 2022-08-21 | [facility] | 6.0 | (missing) | (missing) | | (unavailable | 09:47:07 [facility] | | | + + + +-------+ + + + + | Result panel 3319 | + + + + + +-------+ + + | | 2022-08-21 | [facility] | 0.4 | (missing) | (missing) | | (unavailable | 09:47:07 [facility] | | | + + + +-------+ + + + + | Result panel 3320 | + + + + + +-------+ + + | | 2022-08-21 | [facility] | 0.3 | (missing) | (missing) | | (unavailable | 09:47:07 [facility] | | | + + + +-------+ + + + + | Result panel 3321 | + + + + + +-------+---------+ + | | 2022-08-21 | [facility] | 460 | mg/dL | (missing) | | (unavailable | 09:47:07 [facility] | | | | + + + +-------+---------+ + + + | Result panel 3322 | + + + + + +------+---------+ + | | 2022-08-21 | [facility] | 21 | mg/dL | (missing) | | (unavailable | 09:47:07 [facility] | | | + + + +------+---------+ + + + | Result panel 3323 | + + + + + +--------+---------+ + | | 2022-08-21 | [facility] | 0.76 | mg/dL | (missing) | | (unavailable | 09:47:07 [facility] | | | + + + +--------+---------+ + + + | Result panel 3324 | + + + + + +-------+ + + | | 2022-08-21 | [facility] | 107 | (missing) | (missing) | | (unavailable | 09:47:07 [facility] | | | + + + +-------+ + + + + | Result panel 3325 | + + + + + +---------+ + + | | 2022-08-21 | [facility] | 27.63 | (missing) | (missing) | | (unavailable | 09:47:07 [facility] | | | + + + +---------+ + + + + | Result panel 3326 | + + + + + +-------+ + + | | 2022-08-21 | [facility] | 128 | (missing) | (missing) | | (unavailable | 09:47:07 [facility] | | | + + + +-------+ + + + + | Result panel 3327 | + + + + + +-------+ + + | | 2022-08-21 | [facility] | 4.1 | (missing) | (missing) | | (unavailable | 09:47:07 [facility] | | | + + + +-------+ + + + + | Result panel 3328 | + + + + + +------+ + + | | 2022-08-21 | [facility] | 93 | (missing) | (missing) | | (unavailable | 09:47:07 [facility] | | | + + + +------+ + + + + | Result panel 3329 | + + + + + +------+ + + | | 2022-08-21 | [facility] | 25 | (missing) | (missing) | | (unavailable | 09:47:07 [facility] | | | + + + +------+ + + + + | Result panel 3330 | + + + + + +--------+ + + | | 2022-08-21 | [facility] | 14.1 | (missing) | (missing) | | (unavailable | 09:47:07 [facility] | | | + + + +--------+ + + + + | Result panel 3331 | + + + + + +-------+---------+ + | | 2022-08-21 | [facility] | 9.6 | mg/dL | (missing) | | (unavailable | 09:47:07 [facility] | | | + + + +-------+---------+ + + + | Result panel 3332 | + + + + + +-------+ + + | | 2022-08-21 | [facility] | 7.6 | (missing) | (missing) | | (unavailable | 09:47:07 [facility] | | | + + + +-------+ + + + + | Result panel 3333 | + + + + + +-------+ + + | | 2022-08-21 | [facility] | 3.6 | (missing) | (missing) | | (unavailable | 09:47:07 [facility] | | | + + + +-------+ + + + + | Result panel 3334 | + + + + + +-------+ + + | | 2022-08-21 | [facility] | 4.0 | (missing) | (missing) | | (unavailable | 09[facility]47:07 [facility] | | | + + + +-------+ + + + + | Result panel 3335 | + + + + + +--------+ + + | | 2022-08-21 | [facility] | 0.90 | (missing) | (missing) | | (unavailable | 09:47:07 [facility] | | | + + + +--------+ + + + + | Result panel 3336 | + + + + + + + + + | | 2022-08-21 | [facility] | NEGATIVE | (missing) | (missing) | | (unavailable | 10:40:07 [facility] | | | | + + + + + + + + + | Result panel 3337 | + + + + + + + + + | | 2022-08-21 | [facility] | NEGATIVE | (missing) | (missing) | | (unavailable | 10:40:07 [facility] | | | | + + + + + + + + + | Result panel 3338 | + + + + + + + + + | | 2022-08-21 | [facility] | NEGATIVE | (missing) | (missing) | | (unavailable | 10:40:07 [facility] | | | | + + + + + + + + + | Result panel 3339 | + + + + + + + + + | | 2022-08-21 | [facility] | NEGATIVE | (missing) | (missing) | | (unavailable | 10:40:07 [facility] | | | | + + + + + + + + + | Result panel 3340 | + + + + + + + + + | | 2022-08-21 | [facility] | NEGATIVE | (missing) | (missing) | | (unavailable | 10:40:07 [facility] | | | | + + + + + + + + + | Result panel 3341 | + + + + + + + + + | | 2022-08-21 | [facility] | NEGATIVE | (missing) | (missing) | | (unavailable | 10:40:07 [facility] | | | | + + + + + + + + + | Result panel 3342 | + + + + + + + + + | | 2022-08-21 | [facility] | NEGATIVE | (missing) | (missing) | | (unavailable | 10:40:07 [facility] | | | | + + + + + + + + + | Result panel 3343 | + + + + + + + + + | | 2022-08-21 | [facility] | NEGATIVE | (missing) | (missing) | | (unavailable | 10:40:07 [facility] | | | | + + + + + + + + + | Result panel 3344 | + + + + + + + + + | | 2022-08-21 | [facility] | NEGATIVE | (missing) | (missing) | | (unavailable | 10:40:07 [facility] | | | | + + + + + + + + + | Result panel 3345 | + + + + + + + + + | | 2022-08-21 | [facility] | NEGATIVE | (missing) | (missing) | | (unavailable | 10:40:07 [facility] | | | | + + + + + + + + + | Result panel 3346 | + + + + + + + + + | | 2022-08-21 | [facility] | NEGATIVE | (missing) | (missing) | | (unavailable | 10:40:07 [facility] | | | | + + + + + + + + + | Result panel 3347 | + + + + + + + + + | | 2022-08-21 | [facility] | NEGATIVE | (missing) | (missing) | | (unavailable | 10:40:07 [facility] | | | | + + + + + + + + + | Result panel 3348 | + + + + + + + + + | | 2022-08-21 | [facility] | NEGATIVE | (missing) | (missing) | | (unavailable | 10:40:07 [facility] | | | | + + + + + + + + + | Result panel 3349 | + + + + + + + + + | | 2022-08-21 | [facility] | YELLOW | (missing) | (missing) | | (unavailable | 10:40:07 [facility] | | | | + + + + + + + + + | Result panel 3350 | + + + + + + + + + | | 2022-08-21 | [facility] | SL CLOUDY | (missing) | (missing) | | (unavailable | 10:40:07 [facility] | | | | + + + + + + + + + | Result panel 3351 | + + + + + + + + + | | 2022-08-21 | [facility] | >=1000 | (missing) | (missing) | | (unavailable | 10:40:07 [facility] | | | | + + + + + + + + + | Result panel 3352 | + + + + + + + + + | | 2022-08-21 | [facility] | NEGATIVE | (missing) | (missing) | | (unavailable | 10:40:07 [facility] | | | | + + + + + + + + + | Result panel 3353 | + + + + + +---------+ + + | | 2022-08-21 | [facility] | TRACE | (missing) | (missing) | | (unavailable | 10:40:07 [facility] | | | | + + + +---------+ + + + + | Result panel 3354 | + + + + + +---------+ + + | | 2022-08-21 | [facility] | 1.010 | (missing) | (missing) | | (unavailable | 10:40:07 [facility] | | | | + + + +---------+ + + + + | Result panel 3355 | + + + + + + + + + | | 2022-08-21 | [facility] | TRACE-L | (missing) | (missing) | | (unavailable | 10:40:07 [facility] | | | | + + + + + + + + + | Result panel 3356 | + + + + + +-------+ + + | | 2022-08-21 | [facility] | 5.5 | (missing) | (missing) | | (unavailable | 10[facility]40:07 [facility] | | | | + + + +-------+ + + + + | Result panel 3357 | + + + + + + + + + | | 2022-08-21 | [facility] | NEGATIVE | (missing) | (missing) | | (unavailable | 10:40:07 [facility] | | | | + + + + + + + + + | Result panel 3358 | + + + + + + + + + | | 2022-08-21 | [facility] | NORMAL | (missing) | (missing) | | (unavailable | 10:40:07 [facility] | | | | + + + + + + + + + | Result panel 3359 | + + + + + + + + + | | 2022-08-21 | [facility] | NEGATIVE | (missing) | (missing) | | (unavailable | 10:40:07 [facility] | | | | + + + + + + + + + | Result panel 3360 | + + + + + + + + + | | 2022-08-21 | [facility] | NEGATIVE | (missing) | (missing) | | (unavailable | 10:40:07 [facility] | | | | + + + + + + + + + | Result panel 3361 | + + + + + + + + + | | 2022-08-21 | [facility] | NEGATIVE | (missing) | (missing) | | (unavailable | 10:40:07 [facility] | | | | + + + + + + + + + | Result panel 3362 | + + + + + + + + + | | 2022-08-21 | [facility] | NEGATIVE | (missing) | (missing) | | (unavailable | 10:40:07 [facility] | | | | + + + + + + + + + | Result panel 3363 | + + + + + + + + + | | 2022-08-21 | [facility] | NEGATIVE | (missing) | (missing) | | (unavailable | 10:40:07 [facility] | | | | + + + + + + + + + | Result panel 3364 | + + + + + + + + + | | 2022-08-21 | [facility] | NEGATIVE | (missing) | (missing) | | (unavailable | 10:40:07 [facility] | | | | + + + + + + + + + | Result panel 3365 | + + + + + + + + + | | 2022-08-21 | [facility] | NEGATIVE | (missing) | (missing) | | (unavailable | 10:40:07 [facility] | | | | + + + + + + + + + | Result panel 3366 | + + + + + + + + + | | 2022-08-21 | [facility] | NEGATIVE | (missing) | (missing) | | (unavailable | 10:40:07 [facility] | | | | + + + + + + + + + | Result panel 3367 | + + + + + + + + + | | 2022-08-21 | [facility] | NEGATIVE | (missing) | (missing) | | (unavailable | 10:40:07 [facility] | | | | + + + + + + + + + | Result panel 3368 | + + + + + + + + + | | 2022-08-21 | [facility] | NEGATIVE | (missing) | (missing) | | (unavailable | 10:40:07 [facility] | | | | + + + + + + + + + | Result panel 3369 | + + + + + + + + + | | 2022-08-21 | [facility] | NEGATIVE | (missing) | (missing) | | (unavailable | 10:40:07 [facility] | | | | + + + + + + + + + | Result panel 3370 | + + + + + + + + + | | 2022-08-21 | [facility] | NEGATIVE | (missing) | (missing) | | (unavailable | 10:40:07 [facility] | | | | + + + + + + + + + | Result panel 3371 | + + + + + + + + + | | 2022-08-21 | [facility] | NEGATIVE | (missing) | (missing) | | (unavailable | 10:40:07 [facility] | | | | + + + + + + + + + | Result panel 3372 | + + + + + + + + + | | 2022-08-21 | [facility] | NEGATIVE | (missing) | (missing) | | (unavailable | 10:40:07 [facility] | | | | + + + + + + + + + | Result panel 3373 | + + + + + + + + + | | 2022-08-21 | [facility] | NEGATIVE | (missing) | (missing) | | (unavailable | 10:40:07 [facility] | | | | + + + + + + + + + | Result panel 3374 | + + + + + + + + + | | 2022-08-21 | [facility] | YELLOW | (missing) | (missing) | | (unavailable | 10:40:07 [facility] | | | | + + + + + + + + + | Result panel 3375 | + + + + + + + + + | | 2022-08-21 | [facility] | SL CLOUDY | (missing) | (missing) | | (unavailable | 10:40:07 [facility] | | | | + + + + + + + + + | Result panel 3376 | + + + + + + + + + | | 2022-08-21 | [facility] | >=1000 | (missing) | (missing) | | (unavailable | 10:40:07 [facility] | | | | + + + + + + + + + | Result panel 3377 | + + + + + + + + + | | 2022-08-21 | [facility] | NEGATIVE | (missing) | (missing) | | (unavailable | 10:40:07 [facility] | | | | + + + + + + + + + | Result panel 3378 | + + + + + +---------+ + + | | 2022-08-21 | [facility] | TRACE | (missing) | (missing) | | (unavailable | 10:40:07 [facility] | | | | + + + +---------+ + + + + | Result panel 3379 | + + + + + +---------+ + + | | 2022-08-21 | [facility] | 1.010 | (missing) | (missing) | | (unavailable | 10:40:07 [facility] | | | | + + + +---------+ + + + + | Result panel 3380 | + + + + + + + + + | | 2022-08-21 | [facility] | TRACE-L | (missing) | (missing) | | (unavailable | 10:40:07 [facility] | | | | + + + + + + + + + | Result panel 3381 | + + + + + +-------+ + + | | 2022-08-21 | [facility] | 5.5 | (missing) | (missing) | | (unavailable | 10:40:07 [facility] | | | | + + + +-------+ + + + + | Result panel 3382 | + + + + + + + + + | | 2022-08-21 | [facility] | NEGATIVE | (missing) | (missing) | | (unavailable | 10:40:07 [facility] | | | | + + + + + + + + + | Result panel 3383 | + + + + + + + + + | | 2022-08-21 | [facility] | NORMAL | (missing) | (missing) | | (unavailable | 10:40:07 [facility] | | | | + + + + + + + + + | Result panel 3384 | + + + + + + + + + | | 2022-08-21 | [facility] | NEGATIVE | (missing) | (missing) | | (unavailable | 10:40:07 [facility] | | | | + + + + + + + + + | Result panel 3385 | + + + + + + + + + | | 2022-08-21 | [facility] | NEGATIVE | (missing) | (missing) | | (unavailable | 10:40:07 [facility] | | | | + + + + + + + + + | Result panel 3386 | + + + + + +-------+ + + | | 2022-08-21 | [facility] | 306 | (missing) | (missing) | | (unavailable | 12:56:07 [facility] | | | | + + + +-------+ + + + + | Result panel 3387 | + + + + + +-------+ + + | | 2022-08-31 | [facility] | 9.6 | (missing) | (missing) | | (unavailable | 10:16:07 [facility] | | | | + + + +-------+ + + + + | Result panel 3388 | + + + + + + + + + | | 2022-08-31 | [facility] | (missing) | (missing) | (missing) | | (unavailable | 10:16:07 | [facility] | | | | + + + + + + + + + | Result panel 3389 | + + + + + +--------+ + + | | 2022-08-31 | [facility] | 4.64 | (missing) | (missing) | | (unavailable | 10:16:07 [facility] | | | | + + + +--------+ + + + + | Result panel 3390 | + + + + + +--------+ + + | | 2022-08-31 | [facility] | 10.5 | (missing) | (missing) | | (unavailable | 10:16:07 [facility] | | | | + + + +--------+ + + + + | Result panel 3391 | + + + + + +--------+ + + | | 2022-08-31 | [facility] | 33.0 | (missing) | (missing) | | (unavailable | 10:16:07 [facility] | | | | + + + +--------+ + + + + | Result panel 3392 | + + + + + +--------+ + + | | 2022-08-31 | [facility] | 71.1 | (missing) | (missing) | | (unavailable | 10:16:07 [facility] | | | | + + + +--------+ + + + + | Result panel 3393 | + + + + + +--------+ + + | | 2022-08-31 | [facility] | 22.6 | (missing) | (missing) | | (unavailable | 10:16:07 [facility] | | | | + + + +--------+ + + + + | Result panel 3394 | + + + + + +--------+ + + | | 2022-08-31 | [facility] | 31.8 | (missing) | (missing) | | (unavailable | 10:16:07 [facility] | | | | + + + +--------+ + + + + | Result panel 3395 | + + + + + +--------+ + + | | 2022-08-31 | [facility] | 21.1 | (missing) | (missing) | | (unavailable | 10:16:07 [facility] | | | | + + + +--------+ + + + + | Result panel 3396 | + + + + + +-------+ + + | | 2022-08-31 | [facility] | 269 | (missing) | (missing) | | (unavailable | 10:16:07 [facility] | | | | + + + +-------+ + + + + | Result panel 3397 | + + + + + +--------+ + + | | 2022-08-31 | [facility] | 75.5 | (missing) | (missing) | | (unavailable | 10:16:07 [facility] | | | | + + + +--------+ + + + + | Result panel 3398 | + + + + + +--------+ + + | | 2022-08-31 | [facility] | 16.9 | (missing) | (missing) | | (unavailable | 10:16:07 [facility] | | | | + + + +--------+ + + + + | Result panel 3399 | + + + + + +-------+ + + | | 2022-08-31 | [facility] | 5.8 | (missing) | (missing) | | (unavailable | 10:16:07 [facility] | | | | + + + +-------+ + + + + | Result panel 3400 | + + + + + +-------+ + + | | 2022-08-31 | [facility] | 0.8 | (missing) | (missing) | | (unavailable | 10:16:07 | [facility] | | | | + + + +-------+ + + + + | Result panel 3401 | + + + + + +-------+ + + | | 2022-08-31 | [facility] | 1.0 | (missing) | (missing) | | (unavailable | 10:16:07 | [facility] | | | | + + + +-------+ + + + + | Result panel 3402 | + + + + + +-------+---------+ + | | 2022-08-31 | [facility] | 456 | mg/dL | (missing) | | (unavailable | 10:16:07 | [facility] | | | | + + + +-------+---------+ + + + | Result panel 3403 | + + + + + +------+---------+ + | | 2022-08-31 | [facility] | 20 | mg/dL | (missing) | | (unavailable | 10:16:07 | [facility] | | | | + + + +------+---------+ + + + | Result panel 3404 | + + + + + +--------+---------+ + | | 2022-08-31 | [facility] | 0.84 | mg/dL | (missing) | | (unavailable | 10:16:07 [facility] | | | | + + + +--------+---------+ + + + | Result panel 3405 | + + + + + +------+ + + | | 2022-08-31 | [facility] | 95 | (missing) | (missing) | | (unavailable | 10:16:07 [facility] | | | | + + + +------+ + + + + | Result panel 3406 | + + + + + +---------+ + + | | 2022-08-31 | [facility] | 23.80 | (missing) | (missing) | | (unavailable | 10:16:07 | [facility] | | | | + + + +---------+ + + + + | Result panel 3407 | + + + + + +-------+ + + | | 2022-08-31 | [facility] | 131 | (missing) | (missing) | | (unavailable | [facility]:16:07 [facility] | | | | + + + +-------+ + + + + | Result panel 3408 | + + + + + +-------+ + + | | 2022-08-31 | [facility] | 4.4 | (missing) | (missing) | | (unavailable | [facility]:16:07 [facility] | | | | + + + +-------+ + + + + | Result panel 3409 | + + + + + +------+ + + | | 2022-08-31 | [facility] | 96 | (missing) | (missing) | | (unavailable | 10:16:07 [facility] | | | | + + + +------+ + + + + | Result panel 3410 | + + + + + +------+ + + | | 2022-08-31 | [facility] | 23 | (missing) | (missing) | | (unavailable | [facility]:16:07 [facility] | | | | + + + +------+ + + + + | Result panel 3411 | + + + + + +--------+ + + | | 2022-08-31 | [facility] | 16.4 | (missing) | (missing) | | (unavailable | [facility]16:07 [facility] | | | | + + + +--------+ + + + + | Result panel 3412 | + + + + + +-------+---------+ + | | 2022-08-31 | [facility] | 9.0 | mg/dL | (missing) | | (unavailable | 10:16:07 [facility] | | | | + + + +-------+---------+ + + + | Result panel 3413 | + + + + + +-------+ + + | | 2022-08-31 | [facility] | 8.0 | (missing) | (missing) | | (unavailable | 10:16:07 [facility] | | | + + + +-------+ + + + + | Result panel 3414 | + + + + + +-------+ + + | | 2022-08-31 | [facility] | 3.5 | (missing) | (missing) | | (unavailable | [facility]:16:07 [facility] | | | + + + +-------+ + + + + | Result panel 3415 | + + + + + +-------+ + + | | 2022-08-31 | [facility] | 4.5 | (missing) | (missing) | | (unavailable | [facility]:16:07 [facility] | | | + + + +-------+ + + + + | Result panel 3416 | + + + + + +--------+ + + | | 2022-08-31 | [facility] | 0.78 | (missing) | (missing) | | (unavailable | [facility]16:07 [facility] | | | + + + +--------+ + + + + | Result panel 3417 | + + + + + +-------+ + + | | 2022-08-31 | [facility] | 0.3 | (missing) | (missing) | | (unavailable | [facility]16:07 [facility] | | | + + + +-------+ + + + + | Result panel 3418 | + + + + + +------+ + + | | 2022-08-31 | [facility] | 14 | (missing) | (missing) | | (unavailable | [facility]16:07 [facility] | | | + + + +------+ + + + + | Result panel 3419 | + + + + + +------+ + + | | 2022-08-31 | [facility] | 22 | (missing) | (missing) | | (unavailable | [facility]16:07 [facility] | | | + + + +------+ + + + + | Result panel 3420 | + + + + + +------+ + + | | 2022-08-31 | [facility] | 84 | (missing) | (missing) | | (unavailable | 10:16:07 [facility] | | | | + + + +------+ + + + + | Result panel 3421 | + + + + + +-------+ + + | | 2022-08-31 | [facility] | 179 | (missing) | (missing) | | (unavailable | 10:16:07 [facility] | | | | + + + +-------+ + + + + | Result panel 3422 | + + + + + + + + + | | 2022-12-05 | [facility] | YELLOW | (missing) | (missing) | | (unavailable | [facility]07:07 [facility] | | | | + + + + + + + + + | Result panel 3423 | + + + + + +---------+ + + | | 2022-12-05 | [facility] | CLEAR | (missing) | (missing) | | (unavailable | 10::07 | [facility] | | | | + + + +---------+ + + + + | Result panel 3424 | + + + + + + + + + | | 2022-12-05 | [facility] | >=1000 | (missing) | (missing) | | (unavailable | [facility]07:07 [facility] | | | | + + + + + + + + + | Result panel 3425 | + + + + + + + + + | | 2022-12-05 | [facility] | NEGATIVE | (missing) | (missing) | | (unavailable | 10::07 [facility] | | | | + + + + + + + + + | Result panel 3426 | + + + + + +---------+ + + | | 2022-12-05 | [facility] | TRACE | (missing) | (missing) | | (unavailable | 10::07 [facility] | | | | + + + +---------+ + + + + | Result panel 3427 | + + + + + +---------+ + + | | 2022-12-05 | [facility] | 1.020 | (missing) | (missing) | | (unavailable | 10::07 [facility] | | | | + + + +---------+ + + + + | Result panel 3428 | + + + + + + + + + | | 2022-12-05 | [facility] | MODERATE | (missing) | (missing) | | (unavailable | [facility]07:07 [facility] | | | | + + + + + + + + + | Result panel 3429 | + + + + + +-------+ + + | | 2022-12-05 | [facility] | 6.0 | (missing) | (missing) | | (unavailable | 10::07 [facility] | | | | + + + +-------+ + + + + | Result panel 3430 | + + + + + + + + + | | 2022-12-05 | [facility] | NEGATIVE | (missing) | (missing) | | (unavailable | 10::07 [facility] | | | | + + + + + + + + + | Result panel 3431 | + + + + + + + + + | | 2022-12-05 | [facility] | NORMAL | (missing) | (missing) | | (unavailable | [facility]07:07 [facility] | | | | + + + + + + + + + | Result panel 3432 | + + + + + + + + + | | 2022-12-05 | [facility] | NEGATIVE | (missing) | (missing) | | (unavailable | [facility]07:07 [facility] | | | | + + + + + + + + + | Result panel 3433 | + + + + + + + + + | | 2022-12-05 | [facility] | NEGATIVE | (missing) | (missing) | | (unavailable | [facility]07:07 [facility] | | | + + + + + + + + + | Result panel 3434 | + + + + + +-------+ + + | | 2022-12-05 | [facility] | 4-6 | (missing) | (missing) | | (unavailable | [facility]07:07 [facility] | | | + + + +-------+ + + + + | Result panel 3435 | + + + + + +-------+ + + | | 2022-12-05 | [facility] | 2-3 | (missing) | (missing) | | (unavailable | [facility]07:07 [facility] | | | + + + +-------+ + + + + | Result panel 3436 | + + + + + + + + + | | 2022-12-05 | [facility] | SQUAMOUS 3+ | (missing) | (missing) | | (unavailable | [facility]07:07 [facility] | | | | + + + + + + + + + | Result panel 3437 | + + + + + + + + + | | 2022-12-05 | [facility] | NONE SEEN | (missing) | (missing) | | (unavailable | [facility]07:07 [facility] | | | | + + + + + + + + + | Result panel 3438 | + + + + + +--------+ + + | | 2022-12-05 | [facility] | RARE | (missing) | (missing) | | (unavailable | [facility]07:07 [facility] | | | + + + +--------+ + + + + | Result panel 3439 | + + + + + + + + + | | 2022-12-05 | [facility] | NONE SEEN | (missing) | (missing) | | (unavailable | [facility]07:07 [facility] | | | + + + + + + + + + | Result panel 3440 | + + + + + +------+ + + | | 2022-12-05 | [facility] | No | (missing) | (missing) | | (unavailable | 10::07 [facility] | | | | + + + +------+ + + + + | Result panel 3441 | + + + + + + + + + | | 2022-12-05 | [facility] | CLEAN CATCH | (missing) | (missing) | | (unavailable | [facility]07:07 [facility] | | | + + + + + + + + + | Result panel 3442 | + + + + + +-------+ + + | | 2022-12-05 | [facility] | 9.3 | (missing) | (missing) | | (unavailable | 10:42:07 [facility] | | | + + + +-------+ + + + + | Result panel 3443 | + + + + + +--------+ + + | | 2022-12-05 | [facility] | 72.7 | (missing) | (missing) | | (unavailable | 10:42:07 [facility] | | | + + + +--------+ + + + + | Result panel 3444 | + + + + + +--------+ + + | | 2022-12-05 | [facility] | 16.9 | (missing) | (missing) | | (unavailable | 10[facility]42:07 [facility] | | | + + + +--------+ + + + + | Result panel 3445 | + + + + + +-------+ + + | | 2022-12-05 | [facility] | 9.5 | (missing) | (missing) | | (unavailable | 10[facility]42:07 [facility] | | | + + + +-------+ + + + + | Result panel 3446 | + + + + + +-------+ + + | | 2022-12-05 | [facility] | 0.5 | (missing) | (missing) | | (unavailable | [facility]42:07 [facility] | | | + + + +-------+ + + + + | Result panel 3447 | + + + + + +-------+ + + | | 2022-12-05 | [facility] | 0.4 | (missing) | (missing) | | (unavailable | [facility]42:07 [facility] | | | + + + +-------+ + + + + | Result panel 3448 | + + + + + +--------+ + + | | 2022-12-05 | [facility] | 5.85 | (missing) | (missing) | | (unavailable | [facility]42:07 [facility] | | | + + + +--------+ + + + + | Result panel 3449 | + + + + + +--------+ + + | | 2022-12-05 | [facility] | 14.9 | (missing) | (missing) | | (unavailable | [facility]42:07 [facility] | | | + + + +--------+ + + + + | Result panel 3450 | + + + + + +-------+---------+ + | | 2022-12-05 | [facility] | 315 | mg/dL | (missing) | | (unavailable | 10:42:07 [facility] | | | + + + +-------+---------+ + + + | Result panel 3451 | + + + + + +------+---------+ + | | 2022-12-05 | [facility] | 15 | mg/dL | (missing) | | (unavailable | 10:42:07 [facility] | | | + + + +------+---------+ + + + | Result panel 3452 | + + + + + +--------+---------+ + | | 2022-12-05 | [facility] | 0.75 | mg/dL | (missing) | | (unavailable | 10:42:07 [facility] | | | + + + +--------+---------+ + + + | Result panel 3453 | + + + + + +-------+ + + | | 2022-12-05 | [facility] | 108 | (missing) | (missing) | | (unavailable | 10[facility]42:07 [facility] | | | + + + +-------+ + + + + | Result panel 3454 | + + + + + +---------+ + + | | 2022-12-05 | [facility] | 20.00 | (missing) | (missing) | | (unavailable | 10:42:07 [facility] | | | + + + +---------+ + + + + | Result panel 3455 | + + + + + +--------+ + + | | 2022-12-05 | [facility] | 45.6 | (missing) | (missing) | | (unavailable | 10:42:07 [facility] | | | + + + +--------+ + + + + | Result panel 3456 | + + + + + +-------+ + + | | 2022-12-05 | [facility] | 132 | (missing) | (missing) | | (unavailable | 10[facility]42:07 [facility] | | | + + + +-------+ + + + + | Result panel 3457 | + + + + + +-------+ + + | | 2022-12-05 | [facility] | 3.9 | (missing) | (missing) | | (unavailable | 10:42:07 [facility] | | | + + + +-------+ + + + + | Result panel 3458 | + + + + + +------+ + + | | 2022-12-05 | [facility] | 98 | (missing) | (missing) | | (unavailable | 10:42:07 [facility] | | | + + + +------+ + + + + | Result panel 3459 | + + + + + +------+ + + | | 2022-12-05 | [facility] | 23 | (missing) | (missing) | | (unavailable | 10[facility]42:07 [facility] | | | + + + +------+ + + + + | Result panel 3460 | + + + + + +--------+ + + | | 2022-12-05 | [facility] | 14.9 | (missing) | (missing) | | (unavailable | [facility]42:07 [facility] | | | + + + +--------+ + + + + | Result panel 3461 | + + + + + +-------+---------+ + | | 2022-12-05 | [facility] | 9.3 | mg/dL | (missing) | | (unavailable | 10:42:07 [facility] | | | + + + +-------+---------+ + + + | Result panel 3462 | + + + + + +-------+ + + | | 2022-12-05 | [facility] | 7.8 | (missing) | (missing) | | (unavailable | [facility]:42:07 [facility] | | | + + + +-------+ + + + + | Result panel 3463 | + + + + + +-------+ + + | | 2022-12-05 | [facility] | 3.7 | (missing) | (missing) | | (unavailable | 10:42:07 [facility] | | | + + + +-------+ + + + + | Result panel 3464 | + + + + + +-------+ + + | | 2022-12-05 | [facility] | 4.1 | (missing) | (missing) | | (unavailable | 10:42:07 [facility] | | | + + + +-------+ + + + + | Result panel 3465 | + + + + + +--------+ + + | | 2022-12-05 | [facility] | 0.90 | (missing) | (missing) | | (unavailable | [facility]42:07 [facility] | | | | + + + +--------+ + + + + | Result panel 3466 | + + + + + +--------+ + + | | 2022-12-05 | [facility] | 77.9 | (missing) | (missing) | | (unavailable | 10:42:07 [facility] | | | + + + +--------+ + + + + | Result panel 3467 | + + + + + +-------+ + + | | 2022-12-05 | [facility] | 0.6 | (missing) | (missing) | | (unavailable | [facility]:42:07 [facility] | | | + + + +-------+ + + + + | Result panel 3468 | + + + + + +------+ + + | | 2022-12-05 | [facility] | 18 | (missing) | (missing) | | (unavailable | 10[facility]42:07 [facility] | | | + + + +------+ + + + + | Result panel 3469 | + + + + + +------+ + + | | 2022-12-05 | [facility] | 26 | (missing) | (missing) | | (unavailable | 10[facility]42:07 [facility] | | | + + + +------+ + + + + | Result panel 3470 | + + + + + +------+ + + | | 2022-12-05 | [facility] | 77 | (missing) | (missing) | | (unavailable | 10[facility]42:07 [facility] | | | + + + +------+ + + + + | Result panel 3471 | + + + + + +-------+ + + | | 2022-12-05 | [facility] | 130 | (missing) | (missing) | | (unavailable | 10:42:07 [facility] | | | + + + +-------+ + + + + | Result panel 3472 | + + + + + + + + + | | 2022-12-05 | [facility] | NEGATIVE | (missing) | (missing) | | (unavailable | [facility]:42:07 [facility] | | | + + + + + + + + + | Result panel 3473 | + + + + + +--------+ + + | | 2022-12-05 | [facility] | 25.5 | (missing) | (missing) | | (unavailable | [facility]:42:07 [facility] | | | + + + +--------+ + + + + | Result panel 3474 | + + + + + +--------+ + + | | 2022-12-05 | [facility] | 32.8 | (missing) | (missing) | | (unavailable | [facility]:42:07 [facility] | | | + + + +--------+ + + + + | Result panel 3475 | + + + + + +--------+ + + | | 2022-12-05 | [facility] | 17.8 | (missing) | (missing) | | (unavailable | 10:42:07 [facility] | | | + + + +--------+ + + + + | Result panel 3476 | + + + + + +-------+ + + | | 2022-12-05 | [facility] | 258 | (missing) | (missing) | | (unavailable | 10:42:07 [facility] | | | + + + +-------+ + + + + | Result panel 3477 | + + + + + +-----+ + + | | 2022-12-05 | [facility] | 8 | (missing) | (missing) | | (unavailable | 10:52:07 [facility] | | | | + + + +-----+ + + + + | Result panel 3478 | + + + + + +------+ + + | | 2022-12-05 | [facility] | // | (missing) | (missing) | | (unavailable | 10:52:07 [facility] | | | | + + + +------+ + + + + | GLUCOSE | + + + + + +-------+---------+ + | GLUCOSE | 2021-03-19 | [facility] | 258 | mg/dL | (missing) | | | 15:36 | [facility] | | | | | | [facility] | | | | + + + +-------+---------+ + + + | MICROALBUMIN, URINE ([facility]OM) | + + + + + +---------+ + + | CREATININE, | 2020-04-28 | [facility] | 25.55 | mg/dL | (missing) | | URINE | 10:58 | [facility] | | | | | | | [facility] | | | | + + + +---------+ + + | MICROALB, | 2020-04-28 | [facility] | 0.7 | mg/dL | (missing) | | URINE | 10:58 | [facility] | | | | | | | [facility] | | | | + + + +---------+ + + | | 2020-04-28 | [facility] | 27.4 | mg/g_creat | (missing) | | MICROALB/CRE | 10:58 | MEDICAL | | | | | AT | | [facility] | | | | + + + +---------+ + + + + | LIPID PANEL | + + + + + +--------+ + + | VLDL | 2020-12-17 | [facility] | 63 | mg/dL | (missing) | | | 14:32 | [facility] | | | | | | | [facility] | | | | + + + +--------+ + + | LDL | 2020-12-17 | [facility] | 48 | mg/dL | (missing) | | | 14:32 | [facility] | | | | | | | [facility] | | | | + + + +--------+ + + | HDL | 2020-12-17 | [facility] | 35.0 | mg/dL | (missing) | | | 14:32 | [facility] | | | | | | | [facility] | | | | + + + +--------+ + + | CHOLESTEROL | 2020-12-17 | [facility] | 146 | mg/dL | (missing) | | | 14:32 | [facility] | | | | | | | , [facility] | | | | + + + +--------+ + + | | 2020-12-17 | [facility] | 316 | mg/dL | (missing) | | TRIGLYCERIDE | 14:32 | MEDICAL | | | | | S | | [facility] | | | | + + + +--------+ + + | NON-HDL | 2020-12-17 | [facility] | 111 | mg/dL | (missing) | | CHOL | 14:32 | MEDICAL | | | | | | | [facility] | | | | + + + +--------+ + + | CHOL/HDL | 2020-12-17 | [facility] | 4.2 | (missing) | (missing) | | | 14:32 | [facility] | | | | | | | [facility] | | | | + + + +--------+ + + + + | LIPID PANEL | + + + + + + + + + | VLDL | 2022-02-12 | [facility] | SEE COMMENT | (missing) | (missing) | | | 11:20 | MEDICAL | mg/dL | | | | | | , [facility] | | | | + + + + + + + | LDL | 2022-02-12 | [facility] | SEE COMMENT | (missing) | (missing) | | | 11:20 | MEDICAL | mg/dL | | | | | | [facility] | | | | + + + + + + + | HDL | 2022-02-12 | [facility] | 34.0 | mg/dL | (missing) | | | 11:20 | [facility] | | | | | | | [facility] | | | | + + + + + + + | CHOLESTEROL | 2022-02-12 | [facility] | 343 | mg/dL | (missing) | | | 11:20 | [facility] | | | | | | | [facility] | | | | + + + + + + + | | 2022-02-12 | [facility] | 2845 | mg/dL | (missing) | | TRIGLYCERIDE | 11:20 | MEDICAL | | | | | S | | [facility] | | | | + + + + + + + | NON-HDL | 2022-02-12 | [facility] | 309 | mg/dL | (missing) | | CHOL | 11:20 | MED[facility] | | | | | | | [facility] | | | | + + + + + + + | CHOL/HDL | 2022-02-12 | [facility] | 10.1 | (missing) | (missing) | | | 11:20 | [facility] | | | | | | | [facility] | | | | + + + + + + + + + | Hemoglobin A1C | + + + + + +--------+ + + | Hemoglobin | 2020-01-25 | [facility] | 11.9 | (missing) | (missing) | | A1C | 10:45 | [facility] | | | | | | | [facility] | | | | + + + +--------+ + + + + | Hemoglobin A1C | + + + + + +-------+ + + | Hemoglobin | 2021-03-29 | [facility] | 9.7 | (missing) | (missing) | | A1C | 00:00 | [facility] | | | | | | | [facility] | | | | + + + +-------+ + + + + | COMPREHENSIVE METABOLIC PANEL | + + + + + + + + + | GLOBULIN | 2020-12-03 | [facility] | 2.3 | g/dl | (missing) | | | 11:41 | [facility] | | | | | | | [facility] | | | | + + + + + + + | ALKALINE | 2020-12-03 | [facility] | 56 | U/L | (missing) | | PHOS | 11:41 | MED[facility] | | | | | | | [facility] | | | | + + + + + + + | ALT(SGPT) | 2020-12-03 | [facility] | 12 | U/L | (missing) | | | 11:41 | [facility] | | | | | | | [facility] | | | | + + + + + + + | ALBUMIN | 2020-12-03 | [facility] | 4.3 | g/dl | (missing) | | | 11:41 | [facility] | | | | | | | [facility] | | | | + + + + + + + | A/G RATIO | 2020-12-03 | [facility] | 1.9 | (missing) | (missing) | | | 11:41 | [facility] | | | | | | | [facility] | | | | + + + + + + + | CALCIUM | 2020-12-03 | [facility] | 9.3 | mg/dL | (missing) | | | 11:41 | [facility] | | | | | | | [facility] | | | | + + + + + + + | ANION GAP | 2020-12-03 | [facility] | 13.3 | (missing) | (missing) | | | 11:41 | [facility] | | | | | | | [facility] | | | | + + + + + + + | AST(SGOT) | 2020-12-03 | [facility] | 12 | U/L | (missing) | | | 11:41 | MEDICAL | | | | | | | Jeanmarie LARAC. | | | | + + + + + + + | BILIRUBIN, | 2020-12-03 | [facility] | 0.3 | mg/dL | (missing) | | TOTAL | 11:41 | MEDICAL | | | | | | | Jeanmarie LARAC. | | | | + + + + + + + | CARBON | 2020-12-03 | [facility] | 26.3 | meq/L | (missing) | | DIOXIDE | 11:41 | MEDICAL | | | | | | | Jeanmarie LARAC. | | | | + + + + + + + | CHLORIDE | 2020-12-03 | [facility] | 100 | meq/L | (missing) | | | 11:41 | MEDICAL | | | | | | | Jeanmarie LARAC. | | | | + + + + + + + | CREATININE, | 2020-12-03 | [facility] | 0.52 | mg/dL | (missing) | | SERUM | 11:41 | [facility] | | | | | | | [facility] | | | | + + + + + + + | GLUCOSE | 2020-12-03 | [facility] | 407 | mg/dL | (missing) | | | 11:41 | MEDICAL | | | | | | | , [facility] | | | | + + + + + + + | POTASSIUM | 2020-12-03 | [facility] | 4.6 | meq/L | (missing) | | | 11:41 | [facility] | | | | | | | [facility] | | | | + + + + + + + | PROTEIN | 2020-12-03 | [facility] | 6.6 | g/dL | (missing) | | | 11:41 | MEDICAL | | | | | | | [facility] | | | | + + + + + + + | SODIUM | 2020-12-03 | [facility] | 135 | meq/L | (missing) | | | 11:41 | MEDICAL | | | | | | | [facility] | | | | + + + + + + + | UREA | 2020-12-03 | [facility] | 10 | mg/dL | (missing) | | NITROGEN | 11:41 | MEDICAL | | | | | | | [facility] | | | | + + + + + + + | | 2020-12-03 | [facility] | 19.2 | (missing) | (missing) | | BUN/CREAT.RA | 11:41 | MEDICAL | | | | | LINDA | | Meghann LARA. | | | | + + + + + + + | GFR | 2020-12-03 | [facility] | >120 ml/min | (missing) | (missing) | | ESTIMATION | 11:41 | MEDICAL | | | | | | | Meghann ALRA. | | | | + + + + + + + + + | COMPREHENSIVE METABOLIC PANEL | + + + + + +--------+ + + | GLOBULIN | 2021-11-11 | [facility] | 3.0 | g/dl | (missing) | | | 16:07 | MEDICAL | | | | | | | [facility] LARA. | | | | + + + +--------+ + + | ALKALINE | 2021-11-11 | [facility] | 81 | U/L | (missing) | | PHOS | 16:07 | [facility] | | | | | | | [facility] | | | | + + + +--------+ + + | ALT(SGPT) | 2021-11-11 | [facility] | 26 | U/L | (missing) | | | 16:07 | [facility] | | | | | | | [facility] | | | | + + + +--------+ + + | ALBUMIN | 2021-11-11 | [facility] | 4.4 | g/dl | (missing) | | | 16:07 | [facility] | | | | | | | [facility] | | | | + + + +--------+ + + | A/G RATIO | 2021-11-11 | [facility] | 1.5 | (missing) | (missing) | | | 16:07 | [facility] | | | | | | | [facility] | | | | + + + +--------+ + + | CALCIUM | 2021-11-11 | [facility] | 10.0 | mg/dL | (missing) | | | 16:07 | [facility] | | | | | | | [facility] | | | | + + + +--------+ + + | ANION GAP | 2021-11-11 | [facility] | 21.6 | (missing) | (missing) | | | 16:07 | [facility] | | | | | | | [facility] | | | | + + + +--------+ + + | AST(SGOT) | 2021-11-11 | [facility] | 33 | U/L | (missing) | | | 16:07 | [facility] | | | | | | | [facility] | | | | + + + +--------+ + + | BILIRUBIN, | 2021-11-11 | [facility] | 0.5 | mg/dL | (missing) | | TOTAL | 16:07 | MEDICAL | | | | | | | [facility] | | | | + + + +--------+ + + | CARBON | 2021-11-11 | [facility] | 19 | meq/L | (missing) | | DIOXIDE | 16:07 | MEDICAL | | | | | | | [facility] | | | | + + + +--------+ + + | CHLORIDE | 2021-11-11 | [facility] | 89 | meq/L | (missing) | | | 16:07 | MEDICAL | | | | | | | [facility] | | | | + + + +--------+ + + | CREATININE, | 2021-11-11 | [facility] | 1.02 | mg/dL | (missing) | | SERUM | 16:07 | MEDICAL | | | | | | | [facility] | | | | + + + +--------+ + + | GLUCOSE | 2021-11-11 | [facility] | 378 | mg/dL | (missing) | | | 16:07 | MED[facility] | | | | | | | [facility] | | | | + + + +--------+ + + | POTASSIUM | 2021-11-11 | [facility] | 4.6 | meq/L | (missing) | | | 16:07 | MED[facility] | | | | | | | [facility] | | | | + + + +--------+ + + | PROTEIN | 2021-11-11 | [facility] | 7.4 | g/dL | (missing) | | | 16:07 | MEDICAL | | | | | | | [facility] | | | | + + + +--------+ + + | SODIUM | 2021-11-11 | [facility] | 125 | meq/L | (missing) | | | 16:07 | MED[facility] | | | | | | | [facility] | | | | + + + +--------+ + + | UREA | 2021-11-11 | [facility] | 20 | mg/dL | (missing) | | NITROGEN | 16:07 | MEDICAL | | | | | | | [facility] | | | | + + + +--------+ + + | | 2021-11-11 | [facility] | 19.6 | (missing) | (missing) | | BUN/CREAT.RA | 16:07 | MEDICAL | | | | | [facility] | | [facility] | | | | + + + +--------+ + + | GFR | 2021-11-11 | [facility] | 63 | ml/min | (missing) | | ESTIMATION | 16:07 | MEDICAL | | | | | | | , [facility] | | | | + + + +--------+ + + + + | COMPREHENSIVE METABOLIC PANEL | + + + + + +--------+ + + | GLOBULIN | 2022-02-12 | [facility] | 2.3 | g/dl | (missing) | | | 11:20 | MED[facility] | | | | | | | [facility] | | | | + + + +--------+ + + | ALKALINE | 2022-02-12 | [facility] | 65 | U/L | (missing) | | PHOS | 11:20 | MEDICAL | | | | | | | [facility] | | | | + + + +--------+ + + | ALT(SGPT) | 2022-02-12 | [facility] | 15 | U/L | (missing) | | | 11:20 | MEDICAL | | | | | | | [facility] | | | | + + + +--------+ + + | ALBUMIN | 2022-02-12 | [facility] | 4.1 | g/dl | (missing) | | | 11:20 | MED[facility] | | | | | | | [facility] | | | | + + + +--------+ + + | A/G RATIO | 2022-02-12 | [facility] | 1.8 | (missing) | (missing) | | | 11:20 | MEDICAL | | | | | | | [facility] | | | | + + + +--------+ + + | CALCIUM | 2022-02-12 | [facility] | 9.0 | mg/dL | (missing) | | | 11:20 | MEDICAL | | | | | | | [facility] | | | | + + + +--------+ + + | ANION GAP | 2022-02-12 | [facility] | 21.3 | (missing) | (missing) | | | 11:20 | MEDICAL | | | | | | | [facility] | | | | + + + +--------+ + + | AST(SGOT) | 2022-02-12 | [facility] | 9 | U/L | (missing) | | | 11:20 | MEDICAL | | | | | | | [facility] | | | | + + + +--------+ + + | BILIRUBIN, | 2022-02-12 | [facility] | 0.2 | mg/dL | (missing) | | TOTAL | 11:20 | MEDICAL | | | | | | | [facility] | | | | + + + +--------+ + + | CARBON | 2022-02-12 | [facility] | 18 | meq/L | (missing) | | DIOXIDE | 11:20 | MEDICAL | | | | | | | [facility] | | | | + + + +--------+ + + | CHLORIDE | 2022-02-12 | [facility] | 91 | meq/L | (missing) | | | 11:20 | MED[facility] | | | | | | | [facility] | | | | + + + +--------+ + + | CREATININE, | 2022-02-12 | [facility] | 0.76 | mg/dL | (missing) | | SERUM | 11:20 | MEDICAL | | | | | | | GROUP [facility] | | | | + + + +--------+ + + | GLUCOSE | 2022-02-12 | [facility] | 667 | mg/dL | (missing) | | | 11:20 | [facility] | | | | + + + +--------+ + + | POTASSIUM | 2022-02-12 | [facility] | 4.3 | meq/L | (missing) | | | 11:20 | [facility] | | | | + + + +--------+ + + | PROTEIN | 2022-02-12 | [facility] | 6.4 | g/dL | (missing) | | | 11:20 | [facility] | | [facility] | | | | + + + +--------+ + + | SODIUM | 2022-02-12 | [facility] | 126 | meq/L | (missing) | | | 11:20 | [facility] | | | [facility] | | | | + + + +--------+ + + | UREA | 2022-02-12 | [facility] | 18 | mg/dL | (missing) | | NITROGEN | 11:20 | [facility] | | | | | | | [facility] | | | | + + + +--------+ + + | | 2022-02-12 | [facility] | 23.7 | (missing) | (missing) | | BUN/CREAT.RA | 11:20 | [facility] | | | | | [facility] | | [facility] | | | | + + + +--------+ + + | GFR | 2022-02-12 | [facility] | 88 | ml/min | (missing) | | ESTIMATION | 11:20 | [facility] | | | | | | | [facility] | | | | + + + +--------+ + + + + | IRON AND TOTAL IRON BINDING | + + + + + + +---------+ + | IRON | 2022-02-12 | [facility] | 25.35 | ug/dL | (missing) | | | 11:20 | [facility] | | | | [facility] | | | | + + + + +---------+ + | TIBC | 2022-02-12 | [facility] | 557 | ug/dL | (missing) | | | 11:20 | [facility] | | | | | | | [facility] | | | | + + + + +---------+ + | % | 2022-02-12 | [facility] | 4.6 | % | (missing) | | SATURATION | 11:20 | [facility] | | | | | | | [facility] | | | | + + + + +---------+ + | TRANSFERRIN | 2022-02-12 | [facility] | 397.78 | mg/dL | (missing) | | | 11:20 | [facility] | | | | | | [facility] | | | | + + + + +---------+ + + + | HEMOGLOBIN A1C PANEL | + + + + + +--------+---------+ + | EST AVG | 2020-12-03 | [facility] | 303 | mg/dL | (missing) | | GLUCOSE | 11:41 | [facility] | | | | | | [facility] | | | | + + + +--------+---------+ + | HEMOGLOBIN | 2020-12-03 | [facility] | 12.2 | % | (missing) | | A1C | 11:41 | [facility] | | | | | | | [facility] | | | | + + + +--------+---------+ + + + | HEMOGLOBIN A1C PANEL | + + + + + +-------+---------+ + | EST AVG | 2022-02-12 | [facility] | 197 | mg/dL | (missing) | | GLUCOSE | 11:20 | [facility] | | | | | | | [facility] | | | | + + + +-------+---------+ + | HEMOGLOBIN | 2022-02-12 | [facility] | 8.5 | % | (missing) | | A1C | 11:20 | [facility] | | | | | | | [facility] | | | | + + + +-------+---------+ + + + | C-PEPTIDE | + + + + + +--------+---------+ + | C-PEPTIDE | 2021-03-19 | [facility] | 4.03 | ng/mL | (missing) | | | 15:36 | [facility] | | | | | | | [facility] | | | | + + + +--------+---------+ + + + | FERRITIN | + + + + + +--------+---------+ + | FERRITIN | 2022-02-12 | [facility] | 15.3 | ng/ml | (missing) | | | 11:20 | [facility] | | | | | | [facility] | | | | + + + +--------+---------+ + + + | TSH w/FT4 Reflex | + + + + + +---------+ + + | TSH w/FT4 | 2020-12-03 | [facility] | 0.974 | uIU/ml | (missing) | | Reflex | 11:41 | [facility] | | | | | | | [facility] | | | | + + + +---------+ + + + + | TSH w/FT4 Reflex | + + + + + +---------+ + + | TSH w/FT4 | 2021-11-11 | [facility] | 0.477 | uIU/ml | (missing) | | Reflex | 16:07 | [facility] | | | | | | | [facility] | | | | + + + +---------+ + + +-------+ | CBC | +-------+ + + + +--------+--------+ + | HEMOGLOBIN | 2020-12-03 | [facility] | 13.8 | g/dl | (missing) | | | 11:41 | [facility] | | | | | | [facility] | | | | + + + +--------+--------+ + | RDW | 2020-12-03 | [facility] | 13.2 | % | (missing) | | | 11:41 | [facility] | | | | | | | [facility] | | | | + + + +--------+--------+ + | HEMATOCRIT | 2020-12-03 | [facility] | 40.6 | % | (missing) | | | 11:41 | [facility] | | | | | | | [facility] | | | | + + + +--------+--------+ + | MONOCYTES | 2020-12-03 | [facility] | 8.1 | % | (missing) | | | 11:41 | [facility] | | | | | | | [facility] | | | | + + + +--------+--------+ + | WBC | 2020-12-03 | [facility] | 6.2 | K/ul | (missing) | | | 11:41 | [facility] | | | | | | | [facility] | | | | + + + +--------+--------+ + | BASOPHILS | 2020-12-03 | [facility] | 1.0 | % | (missing) | | | 11:41 | [facility] | | | | | | | [facility] | | | | + + + +--------+--------+ + | EOSINOPHILS | 2020-12-03 | [facility] | 1.3 | % | (missing) | | | 11:41 | [facility] | | | | | | | [facility] | | | | + + + +--------+--------+ + | LYMPHOCYTES | 2020-12-03 | [facility] | 23.2 | % | (missing) | | | 11:41 | [facility] | | | | | | | [facility] | | | | + + + +--------+--------+ + | NEUTROPHILS | 2020-12-03 | [facility] | 66.4 | % | (missing) | | | 11:41 | [facility] | | | | | | | [facility] | | | | + + + +--------+--------+ + | PLATELET | 2020-12-03 | [facility] | 306 | K/ul | (missing) | | COUNT | 11:41 | [facility] | | | | | | | [facility] | | | | + + + +--------+--------+ + | MCH | 2020-12-03 | [facility] | 29 | pg | (missing) | | | 11:41 | [facility] | | | | | | | [facility] | | | | + + + +--------+--------+ + | MCHC | 2020-12-03 | [facility] | 34 | g/dL | (missing) | | | 11:41 | [facility] | | | | | | | [facility] | | | | + + + +--------+--------+ + | MCV | 2020-12-03 | [facility] | 84.6 | fl | (missing) | | | 11:41 | [facility] | | | | | | | [facility] | | | | + + + +--------+--------+ + | RBC | 2020-12-03 | [facility] | 4.79 | M/ul | (missing) | | | 11:41 | [facility] | | | | | | | [facility] | | | | + + + +--------+--------+ + +-------+ | CBC | +-------+ + + + +--------+--------+ + | HEMOGLOBIN | 2021-11-11 | [facility] | 14.5 | g/dl | (missing) | | | 16:07 | [facility] | [facility] | | | | + + + +--------+--------+ + | RDW | 2021-11-11 | [facility] | 19.4 | % | (missing) | | | 16:07 | [facility] | | | | | | [facility] | | | | + + + +--------+--------+ + | HEMATOCRIT | 2021-11-11 | [facility] | 40.7 | % | (missing) | | | 16:07 | [facility] | | | | | [facility] | | | | + + + +--------+--------+ + | MONOCYTES | 2021-11-11 | [facility] | 3.9 | % | (missing) | | | 16:07 | [facility] | | | | | | | [facility] | | | | + + + +--------+--------+ + | WBC | 2021-11-11 | [facility] | 11.4 | K/ul | (missing) | | | 16:07 | [facility] | | | | | | | [facility] | | | | + + + +--------+--------+ + | BASOPHILS | 2021-11-11 | [facility] | 2.0 | % | (missing) | | | 16:07 | [facility] | | | | | | | [facility] | | | | + + + +--------+--------+ + | EOSINOPHILS | 2021-11-11 | [facility] | 1.3 | % | (missing) | | | 16:07 | [facility] | | | | | | | [facility] | | | | + + + +--------+--------+ + | LYMPHOCYTES | 2021-11-11 | [facility] | 15.8 | % | (missing) | | | 16:07 | [facility] | | | | | | | [facility] | | | | + + + +--------+--------+ + | NEUTROPHILS | 2021-11-11 | [facility] | 77.0 | % | (missing) | | | 16:07 | [facility] | | | | | | | [facility] | | | | + + + +--------+--------+ + | PLATELET | 2021-11-11 | [facility] | 361 | K/ul | (missing) | | COUNT | 16:07 | [facility] | | | | | | | [facility] | | | | + + + +--------+--------+ + | MCH | 2021-11-11 | [facility] | 28 | pg | (missing) | | | 16:07 | [facility] | | | | | | | [facility] | | | | + + + +--------+--------+ + | MCHC | 2021-11-11 | [facility] | 36 | g/dL | (missing) | | | 16:07 | [facility] | | | | | | | [facility] | | | | + + + +--------+--------+ + | MCV | 2021-11-11 | [facility] | 78.0 | fl | (missing) | | | 16:07 | [facility] | | | | | | | [facility] | | | | + + + +--------+--------+ + | RBC | 2021-11-11 | [facility] | 5.22 | M/ul | (missing) | | | 16:07 | [facility] | | | | | | | [facility] | | | | + + + +--------+--------+ + +-------+ | CBC | +-------+ + + + +--------+--------+ + | HEMOGLOBIN | 2022-02-12 | [facility] | 10.5 | g/dl | (missing) | | | 11:20 | [facility] | | | | | | [facility] | | | | + + + +--------+--------+ + | RDW | 2022-02-12 | [facility] | 15.6 | % | (missing) | | | 11:20 | [facility] | | | | | | | [facility] | | | | + + + +--------+--------+ + | HEMATOCRIT | 2022-02-12 | [facility] | 30.9 | % | (missing) | | | 11:20 | [facility] | | | | | | [facility] | | | | + + + +--------+--------+ + | MONOCYTES | 2022-02-12 | [facility] | 12.7 | % | (missing) | | | 11:20 | [facility] | | | | | | | [facility] | | | | + + + +--------+--------+ + | WBC | 2022-02-12 | [facility] | 5.8 | K/ul | (missing) | | | 11:20 | [facility] | | | | | | | [facility] | | | | + + + +--------+--------+ + | BASOPHILS | 2022-02-12 | [facility] | 1.3 | % | (missing) | | | 11:20 | [facility] | | | | | | | [facility] | | | | + + + +--------+--------+ + | EOSINOPHILS | 2022-02-12 | [facility] | 1.1 | % | (missing) | | | 11:20 | [facility] | | | | | | | [facility] | | | | + + + +--------+--------+ + | LYMPHOCYTES | 2022-02-12 | [facility] | 9.6 | % | (missing) | | | 11:20 | [facility] | | | | | | | [facility] | | | | + + + +--------+--------+ + | NEUTROPHILS | 2022-02-12 | [facility] | 75.3 | % | (missing) | | | 11:20 | [facility] | | | | | | | [facility] | | | | + + + +--------+--------+ + | PLATELET | 2022-02-12 | [facility] | 319 | K/ul | (missing) | | COUNT | 11:20 | [facility] | | | | | | | [facility] | | | | + + + +--------+--------+ + | MCH | 2022-02-12 | [facility] | 30 | pg | (missing) | | | 11:20 | [facility] | | | | | | | [facility] | | | | + + + +--------+--------+ + | MCHC | 2022-02-12 | [facility] | 34 | g/dL | (missing) | | | 11:20 | [facility] | | | | | | | [facility] | | | | + + + +--------+--------+ + | MCV | 2022-02-12 | [facility] | 88.6 | fl | (missing) | | | 11:20 | [facility] | | | | | | | [facility] | | | | + + + +--------+--------+ + | RBC | 2022-02-12 | [facility] | 3.49 | M/ul | (missing) | | | 11:20 | [facility] | | | | | | | [facility] | | | | + + + +--------+--------+ + Social History + + + + | date | description | facility | + + + + | 2012-10-29 00:00 | Smokes tobacco daily | [facility] | + + + + | 2012-10-29 00:00 | Smokes tobacco daily | [facility] | | | | Department | + + + + | 2012-10-29 00:00 | Smokes tobacco daily | [facility] | | | | Specialties | + + + + | 2012-10-29 00:00 | Smokes tobacco daily | [facility] | | | | [facility] 7[facility] | + + + + | 2020-07-17 00:00 | Unknown if ever smoked | [facility] | | | | | + + + + | 2021-09-21 00:00 | Unknown if ever smoked | [facility] | | | | | + + + + | 2021-11-12 00:00 | Unknown if ever smoked | [facility] | | | | | + + + + | 2021-12-21 00:00 | Unknown if ever smoked | [facility] | | | | | + + + + | 2022-02-15 00:00 | Unknown if ever smoked | [facility] | | | | | + + + + | 2022-02-24 00:00 | Unknown if ever smoked | [facility] | | | | | + + + + | 2022-06-22 00:00 | Unknown if ever smoked | [facility] | | | | | + + + + Vital Signs + + + + + | date | measurement | value | units | + + + + + | 2020-01-25 00:00 | BMI | 26.8 | kg/m2 | + + + + + | 2020-01-25 00:00 | BP_diastolic | 62 | mmHg | + + + + + | 2020-01-25 00:00 | BP_systolic | 110 | mmHg | + + + + + | 2020-01-25 00:00 | BSA | 1.80 | m2 | + + + + + | 2020-01-25 00:00 | heart_rate | 1|1| | completed | + + + + + | 2020-01-25 00:00 | heart_rate | 88 | /min | + + + + + | 2020-01-25 00:00 | height_metric | 165.1 | cm | + + + + + | 2020-01-25 00:00 | height_standard | 65 | in | + + + + + | 2020-01-25 00:00 | respiration_rate | 16 | /min | + + + + + | 2020-01-25 00:00 | weight_metric | 73.03 | kg | + + + + + | 2020-01-25 00:00 | weight_standard | 161 | lb | + + + + + | 2020-02-13 00:00 | BMI | 26.8 | kg/m2 | + + + + + | 2020-02-13 00:00 | BP_diastolic | 86 | mmHg | + + + + + | 2020-02-13 00:00 | BP_systolic | 124 | mmHg | + + + + + | 2020-02-13 00:00 | BSA | 1.80 | m2 | + + + + + | 2020-02-13 00:00 | heart_rate | 1|1| | completed | + + + + + | 2020-02-13 00:00 | heart_rate | 80 | /min | + + + + + | 2020-02-13 00:00 | height_metric | 165.1 | cm | + + + + + | 2020-02-13 00:00 | height_standard | 65 | in | + + + + + | 2020-02-13 00:00 | temperature_metric | 36.5 | C | | | | | | + + + + + | 2020-02-13 00:00 | | 97.7 | F | | | temperature_standar | | | | | d | | | + + + + + | 2020-02-13 00:00 | weight_metric | 73.03 | kg | + + + + + | 2020-02-13 00:00 | weight_standard | 161 | lb | + + + + + | 2020-04-28 00:00 | BMI | 24.7 | kg/m2 | + + + + + | 2020-04-28 00:00 | BP_diastolic | 70 | mmHg | + + + + + | 2020-04-28 00:00 | BP_systolic | 110 | mmHg | + + + + + | 2020-04-28 00:00 | BSA | 1.74 | m2 | + + + + + | 2020-04-28 00:00 | heart_rate | 126 | /min | + + + + + | 2020-04-28 00:00 | heart_rate | 1|1| | completed | + + + + + | 2020-04-28 00:00 | height_metric | 165.1 | cm | + + + + + | 2020-04-28 00:00 | height_standard | 65 | in | + + + + + | 2020-04-28 00:00 | temperature_metric | 36.72 | C | | | | | | + + + + + | 2020-04-28 00:00 | | 98.1 | F | | | temperature_standar | | | | | d | | | + + + + + | 2020-04-28 00:00 | weight_metric | 67.22 | kg | + + + + + | 2020-04-28 00:00 | weight_standard | 148.2 | lb | + + + + + | 2020-07-16 00:00 | BMI | 24.2 | kg/m2 | + + + + + | 2020-07-16 00:00 | BP_diastolic | 68 | mmHg | + + + + + | 2020-07-16 00:00 | BP_systolic | 106 | mmHg | + + + + + | 2020-07-16 00:00 | BSA | 1.73 | m2 | + + + + + | 2020-07-16 00:00 | heart_rate | 1|1| | completed | + + + + + | 2020-07-16 00:00 | heart_rate | 66 | /min | + + + + + | 2020-07-16 00:00 | height_metric | 165.1 | cm | + + + + + | 2020-07-16 00:00 | height_standard | 65 | in | + + + + + | 2020-07-16 00:00 | temperature_metric | 36.39 | C | | | | | | + + + + + | 2020-07-16 00:00 | | 97.5 | F | | | temperature_standar | | | | | d | | | + + + + + | 2020-07-16 00:00 | weight_metric | 66.04 | kg | + + + + + | 2020-07-16 00:00 | weight_standard | 145.6 | lb | + + + + + | 2020-12-03 00:00 | BMI | 21.3 | kg/m2 | + + + + + | 2020-12-03 00:00 | BP_diastolic | 68 | mmHg | + + + + + | 2020-12-03 00:00 | BP_systolic | 90 | mmHg | + + + + + | 2020-12-03 00:00 | BSA | 1.64 | m2 | + + + + + | 2020-12-03 00:00 | heart_rate | 1|1| | completed | + + + + + | 2020-12-03 00:00 | heart_rate | 84 | /min | + + + + + | 2020-12-03 00:00 | height_metric | 165.1 | cm | + + + + + | 2020-12-03 00:00 | height_standard | 65 | in | + + + + + | 2020-12-03 00:00 | temperature_metric | 36.28 | C | | | | | | + + + + + | 2020-12-03 00:00 | | 97.3 | F | | | temperature_standar | | | | | d | | | + + + + + | 2020-12-03 00:00 | weight_metric | 57.97 | kg | + + + + + | 2020-12-03 00:00 | weight_standard | 127.8 | lb | + + + + + | 2020-12-17 00:00 | BMI | 20.3 | kg/m2 | + + + + + | 2020-12-17 00:00 | BP_diastolic | 68 | mmHg | + + + + + | 2020-12-17 00:00 | BP_systolic | 94 | mmHg | + + + + + | 2020-12-17 00:00 | BSA | 1.60 | m2 | + + + + + | 2020-12-17 00:00 | heart_rate | 100 | /min | + + + + + | 2020-12-17 00:00 | heart_rate | 1|1| | completed | + + + + + | 2020-12-17 00:00 | height_metric | 165.1 | cm | + + + + + | 2020-12-17 00:00 | height_standard | 65 | in | + + + + + | 2020-12-17 00:00 | temperature_metric | 36.17 | C | | | | | | + + + + + | 2020-12-17 00:00 | | 97.1 | F | | | temperature_standar | | | | | d | | | + + + + + | 2020-12-17 00:00 | weight_metric | 55.34 | kg | + + + + + | 2020-12-17 00:00 | weight_standard | 122 | lb | + + + + + | 2021-02-12 00:00 | BMI | 20.8 | kg/m2 | + + + + + | 2021-02-12 00:00 | BP_diastolic | 70 | mmHg | + + + + + | 2021-02-12 00:00 | BP_systolic | 108 | mmHg | + + + + + | 2021-02-12 00:00 | BSA | 1.62 | m2 | + + + + + | 2021-02-12 00:00 | heart_rate | 104 | /min | + + + + + | 2021-02-12 00:00 | heart_rate | 1|1| | completed | + + + + + | 2021-02-12 00:00 | height_metric | 165.1 | cm | + + + + + | 2021-02-12 00:00 | height_standard | 65 | in | + + + + + | 2021-02-12 00:00 | o2_saturation | 97 | % | + + + + + | 2021-02-12 00:00 | temperature_metric | 36.17 | C | | | | | | + + + + + | 2021-02-12 00:00 | | 97.1 | F | | | temperature_standar | | | | | d | | | + + + + + | 2021-02-12 00:00 | weight_metric | 56.7 | kg | + + + + + | 2021-02-12 00:00 | weight_standard | 125 | lb | + + + + + | 2021-03-16 00:00 | BMI | 22.5 | kg/m2 | + + + + + | 2021-03-16 00:00 | BP_diastolic | 78 | mmHg | + + + + + | 2021-03-16 00:00 | BP_systolic | 116 | mmHg | + + + + + | 2021-03-16 00:00 | BSA | 1.67 | m2 | + + + + + | 2021-03-16 00:00 | heart_rate | 120 | /min | + + + + + | 2021-03-16 00:00 | heart_rate | 1|1| | completed | + + + + + | 2021-03-16 00:00 | height_metric | 165.1 | cm | + + + + + | 2021-03-16 00:00 | height_standard | 65 | in | + + + + + | 2021-03-16 00:00 | o2_saturation | 97 | % | + + + + + | 2021-03-16 00:00 | respiration_rate | 28 | /min | + + + + + | 2021-03-16 00:00 | temperature_metric | 36.56 | C | | | | | | + + + + + | 2021-03-16 00:00 | | 97.8 | F | | | temperature_standar | | | | | d | | | + + + + + | 2021-03-16 00:00 | weight_metric | 61.33 | kg | + + + + + | 2021-03-16 00:00 | weight_standard | 135.2 | lb | + + + + + | 2021-05-19 00:00 | BMI | 24.0 | kg/m2 | + + + + + | 2021-05-19 00:00 | BP_diastolic | 68 | mmHg | + + + + + | 2021-05-19 00:00 | BP_systolic | 124 | mmHg | + + + + + | 2021-05-19 00:00 | height_metric | 165.1 | cm | + + + + + | 2021-05-19 00:00 | height_standard | 65 | in | + + + + + | 2021-05-19 00:00 | weight_metric | 65.3 | kg | + + + + + | 2021-05-19 00:00 | weight_standard | 143.96 | lb | + + + + + | 2021-06-04 00:00 | BMI | 29.5 | kg/m2 | + + + + + | 2021-06-04 00:00 | BP_diastolic | 87 | mmHg | + + + + + | 2021-06-04 00:00 | BP_systolic | 131 | mmHg | + + + + + | 2021-06-04 00:00 | heart_rate | 93 | /min | + + + + + | 2021-06-04 00:00 | height_metric | 165.1 | cm | + + + + + | 2021-06-04 00:00 | height_standard | 65 | in | + + + + + | 2021-06-04 00:00 | o2_saturation | 100 | % | + + + + + | 2021-06-04 00:00 | respiration_rate | 18 | /min | + + + + + | 2021-06-04 00:00 | temperature_metric | 36.67 | C | | | | | | + + + + + | 2021-06-04 00:00 | | 98 | F | | | temperature_standar | | | | | d | | | + + + + + | 2021-06-04 00:00 | weight_metric | 80.4 | kg | + + + + + | 2021-06-04 00:00 | weight_standard | 177.25 | lb | + + + + + | 2021-07-18 00:00 | BMI | 27.1 | kg/m2 | + + + + + | 2021-07-18 00:00 | BP_diastolic | 101 | mmHg | + + + + + | 2021-07-18 00:00 | BP_systolic | 169 | mmHg | + + + + + | 2021-07-18 00:00 | heart_rate | 96 | /min | + + + + + | 2021-07-18 00:00 | height_metric | 165.1 | cm | + + + + + | 2021-07-18 00:00 | height_standard | 65 | in | + + + + + | 2021-07-18 00:00 | respiration_rate | 20 | /min | + + + + + | 2021-07-18 00:00 | weight_metric | 73.9 | kg | + + + + + | 2021-07-18 00:00 | weight_standard | 162.92 | lb | + + + + + | 2021-07-19 00:00 | height_metric | 167.6 | cm | + + + + + | 2021-07-19 00:00 | height_standard | 65.98 | in | + + + + + | 2021-07-23 00:00 | BMI | 32.38 | kg/m2 | + + + + + | 2021-07-23 00:00 | weight_metric | 91 | kg | + + + + + | 2021-07-23 00:00 | weight_standard | 200.62 | lb | + + + + + | 2021-07-27 00:00 | BP_diastolic | 93 | mmHg | + + + + + | 2021-07-27 00:00 | BP_systolic | 125 | mmHg | + + + + + | 2021-07-27 00:00 | heart_rate | 106 | /min | + + + + + | 2021-07-27 00:00 | o2_saturation | 98 | % | + + + + + | 2021-07-27 00:00 | respiration_rate | 16 | /min | + + + + + | 2021-07-27 00:00 | temperature_metric | 36.28 | C | | | | | | + + + + + | 2021-07-27 00:00 | | 97.3 | F | | | temperature_standar | | | | | d | | | + + + + + | 2021-07-29 00:00 | BMI | 32.14 | kg/m2 | + + + + + | 2021-07-29 00:00 | height_metric | 165.1 | cm | + + + + + | 2021-07-29 00:00 | height_standard | 65 | in | + + + + + | 2021-07-29 00:00 | weight_metric | 87.6 | kg | + + + + + | 2021-07-29 00:00 | weight_standard | 193.12 | lb | + + + + + | 2021-08-01 00:00 | BP_diastolic | 71 | mmHg | + + + + + | 2021-08-01 00:00 | BP_systolic | 138 | mmHg | + + + + + | 2021-08-01 00:00 | heart_rate | 99 | /min | + + + + + | 2021-08-01 00:00 | o2_saturation | 93 | % | + + + + + | 2021-08-01 00:00 | respiration_rate | 16 | /min | + + + + + | 2021-08-01 00:00 | temperature_metric | 36.2 | C | | | | | | + + + + + | 2021-08-01 00:00 | | 97.16 | F | | | temperature_standar | | | | | d | | | + + + + + | 2021-08-03 00:00 | height_metric | 165.1 | cm | + + + + + | 2021-08-03 00:00 | height_standard | 65 | in | + + + + + | 2021-08-03 00:00 | temperature_metric | 36.39 | C | | | | | | + + + + + | 2021-08-03 00:00 | | 97.5 | F | | | temperature_standar | | | | | d | | | + + + + + | 2021-08-04 00:00 | BP_diastolic | 80 | mmHg | + + + + + | 2021-08-04 00:00 | BP_systolic | 133 | mmHg | + + + + + | 2021-08-04 00:00 | heart_rate | 105 | /min | + + + + + | 2021-08-04 00:00 | o2_saturation | 100 | % | + + + + + | 2021-08-04 00:00 | respiration_rate | 14 | /min | + + + + + | 2021-08-06 00:00 | BP_diastolic | 82 | mmHg | + + + + + | 2021-08-06 00:00 | BP_systolic | 141 | mmHg | + + + + + | 2021-08-06 00:00 | heart_rate | 133 | /min | + + + + + | 2021-08-06 00:00 | height_metric | 165.1 | cm | + + + + + | 2021-08-06 00:00 | height_standard | 65 | in | + + + + + | 2021-08-06 00:00 | o2_saturation | 98 | % | + + + + + | 2021-08-06 00:00 | respiration_rate | 18 | /min | + + + + + | 2021-08-06 00:00 | temperature_metric | 36.61 | C | | | | | | + + + + + | 2021-08-06 00:00 | | 97.9 | F | | | temperature_standar | | | | | d | | | + + + + + | 2021-08-11 00:00 | BMI | 34.0 | kg/m2 | + + + + + | 2021-08-11 00:00 | height_metric | 152.4 | cm | + + + + + | 2021-08-11 00:00 | height_standard | 60 | in | + + + + + | 2021-08-11 00:00 | weight_metric | 78.9 | kg | + + + + + | 2021-08-11 00:00 | weight_standard | 173.94 | lb | + + + + + | 2021-08-15 00:00 | BP_diastolic | 69 | mmHg | + + + + + | 2021-08-15 00:00 | BP_systolic | 127 | mmHg | + + + + + | 2021-08-15 00:00 | heart_rate | 73 | /min | + + + + + | 2021-08-15 00:00 | o2_saturation | 100 | % | + + + + + | 2021-08-15 00:00 | respiration_rate | 16 | /min | + + + + + | 2021-08-15 00:00 | temperature_metric | 36.28 | C | | | | | | + + + + + | 2021-08-15 00:00 | | 97.3 | F | | | temperature_standar | | | | | d | | | + + + + + | 2021-09-21 00:00 | BMI | 29.0 | kg/m2 | + + + + + | 2021-09-21 00:00 | BP_diastolic | 74 | mmHg | + + + + + | 2021-09-21 00:00 | BP_systolic | 130 | mmHg | + + + + + | 2021-09-21 00:00 | BSA | 1.87 | m2 | + + + + + | 2021-09-21 00:00 | BSA | 1.9 | m2 | + + + + + | 2021-09-21 00:00 | heart_rate | 103 | /min | + + + + + | 2021-09-21 00:00 | heart_rate | 1|1| | completed | + + + + + | 2021-09-21 00:00 | height_metric | 165.1 | cm | + + + + + | 2021-09-21 00:00 | height_standard | 65 | in | + + + + + | 2021-09-21 00:00 | o2_saturation | 99 | % | + + + + + | 2021-09-21 00:00 | temperature_metric | 36.72 | C | | | | | | + + + + + | 2021-09-21 00:00 | | 98.1 | F | | | temperature_standar | | | | | d | | | + + + + + | 2021-09-21 00:00 | weight_metric | 79.02 | kg | + + + + + | 2021-09-21 00:00 | weight_standard | 174.2 | lb | + + + + + | 2021-11-03 00:00 | BMI | 33.8 | kg/m2 | + + + + + | 2021-11-03 00:00 | BP_diastolic | 72 | mmHg | + + + + + | 2021-11-03 00:00 | BP_systolic | 116 | mmHg | + + + + + | 2021-11-03 00:00 | heart_rate | 99 | /min | + + + + + | 2021-11-03 00:00 | height_metric | 152.4 | cm | + + + + + | 2021-11-03 00:00 | height_standard | 60 | in | + + + + + | 2021-11-03 00:00 | o2_saturation | 98 | % | + + + + + | 2021-11-03 00:00 | respiration_rate | 16 | /min | + + + + + | 2021-11-03 00:00 | temperature_metric | 36.72 | C | | | | | | + + + + + | 2021-11-03 00:00 | | 98.1 | F | | | temperature_standar | | | | | d | | | + + + + + | 2021-11-03 00:00 | weight_metric | 78.47 | kg | + + + + + | 2021-11-03 00:00 | weight_standard | 173 | lb | + + + + + | 2021-11-11 00:00 | BMI | 29.5 | kg/m2 | + + + + + | 2021-11-11 00:00 | BP_diastolic | 68 | mmHg | + + + + + | 2021-11-11 00:00 | BP_systolic | 120 | mmHg | + + + + + | 2021-11-11 00:00 | BSA | 1.88 | m2 | + + + + + | 2021-11-11 00:00 | BSA | 1.9 | m2 | + + + + + | 2021-11-11 00:00 | heart_rate | 110 | /min | + + + + + | 2021-11-11 00:00 | heart_rate | 1|1| | completed | + + + + + | 2021-11-11 00:00 | height_metric | 165.1 | cm | + + + + + | 2021-11-11 00:00 | height_standard | 65 | in | + + + + + | 2021-11-11 00:00 | o2_saturation | 96 | % | + + + + + | 2021-11-11 00:00 | temperature_metric | 36.61 | C | | | | | | + + + + + | 2021-11-11 00:00 | | 97.9 | F | | | temperature_standar | | | | | d | | | + + + + + | 2021-11-11 00:00 | weight_metric | 80.29 | kg | + + + + + | 2021-11-11 00:00 | weight_standard | 177 | lb | + + + + + | 2021-12-03 00:00 | BMI | 33.8 | kg/m2 | + + + + + | 2021-12-03 00:00 | BP_diastolic | 93 | mmHg | + + + + + | 2021-12-03 00:00 | BP_systolic | 137 | mmHg | + + + + + | 2021-12-03 00:00 | heart_rate | 102 | /min | + + + + + | 2021-12-03 00:00 | height_metric | 152.4 | cm | + + + + + | 2021-12-03 00:00 | height_standard | 60 | in | + + + + + | 2021-12-03 00:00 | o2_saturation | 97 | % | + + + + + | 2021-12-03 00:00 | respiration_rate | 18 | /min | + + + + + | 2021-12-03 00:00 | temperature_metric | 36.72 | C | | | | | | + + + + + | 2021-12-03 00:00 | | 98.1 | F | | | temperature_standar | | | | | d | | | + + + + + | 2021-12-03 00:00 | weight_metric | 78.58 | kg | + + + + + | 2021-12-03 00:00 | weight_standard | 173.24 | lb | + + + + + | 2021-12-03 00:00 | weight_standard | 173.25 | lb | + + + + + | 2021-12-18 00:00 | BMI | 30.4 | kg/m2 | + + + + + | 2021-12-18 00:00 | BP_diastolic | 80 | mmHg | + + + + + | 2021-12-18 00:00 | BP_systolic | 144 | mmHg | + + + + + | 2021-12-18 00:00 | BSA | 1.9 | m2 | + + + + + | 2021-12-18 00:00 | BSA | 1.90 | m2 | + + + + + | 2021-12-18 00:00 | heart_rate | 110 | /min | + + + + + | 2021-12-18 00:00 | heart_rate | 1|1| | completed | + + + + + | 2021-12-18 00:00 | height_metric | 165.1 | cm | + + + + + | 2021-12-18 00:00 | height_standard | 65 | in | + + + + + | 2021-12-18 00:00 | o2_saturation | 96 | % | + + + + + | 2021-12-18 00:00 | temperature_metric | 36.61 | C | | | | | | + + + + + | 2021-12-18 00:00 | | 97.9 | F | | | temperature_standar | | | | | d | | | + + + + + | 2021-12-18 00:00 | weight_metric | 82.74 | kg | + + + + + | 2021-12-18 00:00 | weight_standard | 182.4 | lb | + + + + + | 2021-12-26 00:00 | BMI | 29.5 | kg/m2 | + + + + + | 2021-12-26 00:00 | BP_diastolic | 70 | mmHg | + + + + + | 2021-12-26 00:00 | BP_systolic | 124 | mmHg | + + + + + | 2021-12-26 00:00 | heart_rate | 95 | /min | + + + + + | 2021-12-26 00:00 | height_metric | 165.1 | cm | + + + + + | 2021-12-26 00:00 | height_standard | 65 | in | + + + + + | 2021-12-26 00:00 | o2_saturation | 96 | % | + + + + + | 2021-12-26 00:00 | respiration_rate | 23 | /min | + + + + + | 2021-12-26 00:00 | temperature_metric | 37.11 | C | | | | | | + + + + + | 2021-12-26 00:00 | | 98.8 | F | | | temperature_standar | | | | | d | | | + + + + + | 2021-12-26 00:00 | weight_metric | 80.29 | kg | + + + + + | 2021-12-26 00:00 | weight_standard | 177 | lb | + + + + + | 2021-12-26 00:00 | weight_standard | 177.01 | lb | + + + + + | 2022-01-11 00:00 | BMI | 29.9 | kg/m2 | + + + + + | 2022-01-11 00:00 | height_metric | 165.1 | cm | + + + + + | 2022-01-11 00:00 | height_standard | 65 | in | + + + + + | 2022-01-11 00:00 | weight_metric | 81.6 | kg | + + + + + | 2022-01-11 00:00 | weight_standard | 179.9 | lb | + + + + + | 2022-01-12 00:00 | BP_diastolic | 85 | mmHg | + + + + + | 2022-01-12 00:00 | BP_systolic | 118 | mmHg | + + + + + | 2022-01-12 00:00 | heart_rate | 108 | /min | + + + + + | 2022-01-12 00:00 | o2_saturation | 97 | % | + + + + + | 2022-01-12 00:00 | respiration_rate | 17 | /min | + + + + + | 2022-01-12 00:00 | temperature_metric | 37.39 | C | | | | | | + + + + + | 2022-01-12 00:00 | | 99.3 | F | | | temperature_standar | | | | | d | | | + + + + + | 2022-02-02 00:00 | BMI | 29.9 | kg/m2 | + + + + + | 2022-02-02 00:00 | BP_diastolic | 73 | mmHg | + + + + + | 2022-02-02 00:00 | BP_systolic | 113 | mmHg | + + + + + | 2022-02-02 00:00 | heart_rate | 127 | /min | + + + + + | 2022-02-02 00:00 | height_metric | 165.1 | cm | + + + + + | 2022-02-02 00:00 | height_standard | 65 | in | + + + + + | 2022-02-02 00:00 | o2_saturation | 99 | % | + + + + + | 2022-02-02 00:00 | respiration_rate | 30 | /min | + + + + + | 2022-02-02 00:00 | temperature_metric | 37.06 | C | | | | | | + + + + + | 2022-02-02 00:00 | | 98.7 | F | | | temperature_standar | | | | | d | | | + + + + + | 2022-02-02 00:00 | weight_metric | 81.59 | kg | + + + + + | 2022-02-02 00:00 | weight_standard | 179.88 | lb | + + + + + | 2022-02-04 00:00 | BMI | 29.7 | kg/m2 | + + + + + | 2022-02-04 00:00 | height_metric | 165.1 | cm | + + + + + | 2022-02-04 00:00 | height_standard | 65 | in | + + + + + | 2022-02-04 00:00 | weight_metric | 81 | kg | + + + + + | 2022-02-04 00:00 | weight_standard | 178.57 | lb | + + + + + | 2022-02-06 00:00 | BP_diastolic | 62 | mmHg | + + + + + | 2022-02-06 00:00 | BP_systolic | 105 | mmHg | + + + + + | 2022-02-06 00:00 | heart_rate | 105 | /min | + + + + + | 2022-02-06 00:00 | o2_saturation | 96 | % | + + + + + | 2022-02-06 00:00 | respiration_rate | 16 | /min | + + + + + | 2022-02-06 00:00 | temperature_metric | 36.89 | C | | | | | | + + + + + | 2022-02-06 00:00 | | 98.4 | F | | | temperature_standar | | | | | d | | | + + + + + | 2022-02-08 00:00 | BMI | 28.6 | kg/m2 | + + + + + | 2022-02-08 00:00 | height_metric | 165.1 | cm | + + + + + | 2022-02-08 00:00 | height_standard | 65 | in | + + + + + | 2022-02-08 00:00 | weight_metric | 78.02 | kg | + + + + + | 2022-02-08 00:00 | weight_standard | 172 | lb | + + + + + | 2022-02-09 00:00 | BP_diastolic | 67 | mmHg | + + + + + | 2022-02-09 00:00 | BP_systolic | 120 | mmHg | + + + + + | 2022-02-09 00:00 | heart_rate | 89 | /min | + + + + + | 2022-02-09 00:00 | o2_saturation | 98 | % | + + + + + | 2022-02-09 00:00 | respiration_rate | 16 | /min | + + + + + | 2022-02-09 00:00 | temperature_metric | 36.72 | C | | | | | | + + + + + | 2022-02-09 00:00 | | 98.1 | F | | | temperature_standar | | | | | d | | | + + + + + | 2022-02-12 00:00 | BMI | 29.1 | kg/m2 | + + + + + | 2022-02-12 00:00 | BP_diastolic | 72 | mmHg | + + + + + | 2022-02-12 00:00 | BP_systolic | 110 | mmHg | + + + + + | 2022-02-12 00:00 | BSA | 1.87 | m2 | + + + + + | 2022-02-12 00:00 | BSA | 1.9 | m2 | + + + + + | 2022-02-12 00:00 | heart_rate | 108 | /min | + + + + + | 2022-02-12 00:00 | heart_rate | 1|1| | completed | + + + + + | 2022-02-12 00:00 | height_metric | 165.1 | cm | + + + + + | 2022-02-12 00:00 | height_standard | 65 | in | + + + + + | 2022-02-12 00:00 | o2_saturation | 100 | % | + + + + + | 2022-02-12 00:00 | temperature_metric | 36.39 | C | | | | | | + + + + + | 2022-02-12 00:00 | | 97.5 | F | | | temperature_standar | | | | | d | | | + + + + + | 2022-02-12 00:00 | weight_metric | 79.38 | kg | + + + + + | 2022-02-12 00:00 | weight_standard | 175 | lb | + + + + + | 2022-02-19 00:00 | BMI | 28.6 | kg/m2 | + + + + + | 2022-02-19 00:00 | BP_diastolic | 83 | mmHg | + + + + + | 2022-02-19 00:00 | BP_systolic | 116 | mmHg | + + + + + | 2022-02-19 00:00 | heart_rate | 104 | /min | + + + + + | 2022-02-19 00:00 | height_metric | 165.1 | cm | + + + + + | 2022-02-19 00:00 | height_standard | 65 | in | + + + + + | 2022-02-19 00:00 | o2_saturation | 95 | % | + + + + + | 2022-02-19 00:00 | respiration_rate | 16 | /min | + + + + + | 2022-02-19 00:00 | temperature_metric | 36.72 | C | | | | | | + + + + + | 2022-02-19 00:00 | | 98.1 | F | | | temperature_standar | | | | | d | | | + + + + + | 2022-02-19 00:00 | weight_metric | 78.02 | kg | + + + + + | 2022-02-19 00:00 | weight_standard | 172 | lb | + + + + + | 2022-02-23 00:00 | BMI | 28.1 | kg/m2 | + + + + + | 2022-02-23 00:00 | BP_diastolic | 80 | mmHg | + + + + + | 2022-02-23 00:00 | BP_systolic | 114 | mmHg | + + + + + | 2022-02-23 00:00 | BSA | 1.8 | m2 | + + + + + | 2022-02-23 00:00 | BSA | 1.84 | m2 | + + + + + | 2022-02-23 00:00 | heart_rate | 1|1| | completed | + + + + + | 2022-02-23 00:00 | heart_rate | 96 | /min | + + + + + | 2022-02-23 00:00 | height_metric | 165.1 | cm | + + + + + | 2022-02-23 00:00 | height_standard | 65 | in | + + + + + | 2022-02-23 00:00 | o2_saturation | 98 | % | + + + + + | 2022-02-23 00:00 | respiration_rate | 20 | /min | + + + + + | 2022-02-23 00:00 | temperature_metric | 36.5 | C | | | | | | + + + + + | 2022-02-23 00:00 | | 97.7 | F | | | temperature_standar | | | | | d | | | + + + + + | 2022-02-23 00:00 | weight_metric | 76.57 | kg | + + + + + | 2022-02-23 00:00 | weight_standard | 168.8 | lb | + + + + + | 2022-02-28 00:00 | BMI | 27.9 | kg/m2 | + + + + + | 2022-02-28 00:00 | BP_diastolic | 81 | mmHg | + + + + + | 2022-02-28 00:00 | BP_systolic | 121 | mmHg | + + + + + | 2022-02-28 00:00 | heart_rate | 114 | /min | + + + + + | 2022-02-28 00:00 | height_metric | 165.1 | cm | + + + + + | 2022-02-28 00:00 | height_standard | 65 | in | + + + + + | 2022-02-28 00:00 | o2_saturation | 98 | % | + + + + + | 2022-02-28 00:00 | respiration_rate | 22 | /min | + + + + + | 2022-02-28 00:00 | temperature_metric | 37.11 | C | | | | | | + + + + + | 2022-02-28 00:00 | | 98.8 | F | | | temperature_standar | | | | | d | | | + + + + + | 2022-02-28 00:00 | weight_metric | 76 | kg | + + + + + | 2022-02-28 00:00 | weight_standard | 167.55 | lb | + + + + + | 2022-04-12 00:00 | BMI | 27.8 | kg/m2 | + + + + + | 2022-04-12 00:00 | BP_diastolic | 76 | mmHg | + + + + + | 2022-04-12 00:00 | BP_systolic | 137 | mmHg | + + + + + | 2022-04-12 00:00 | heart_rate | 89 | /min | + + + + + | 2022-04-12 00:00 | height_metric | 165.1 | cm | + + + + + | 2022-04-12 00:00 | height_standard | 65 | in | + + + + + | 2022-04-12 00:00 | o2_saturation | 100 | % | + + + + + | 2022-04-12 00:00 | respiration_rate | 16 | /min | + + + + + | 2022-04-12 00:00 | temperature_metric | 36.56 | C | | | | | | + + + + + | 2022-04-12 00:00 | | 97.8 | F | | | temperature_standar | | | | | d | | | + + + + + | 2022-04-12 00:00 | weight_metric | 75.75 | kg | + + + + + | 2022-04-12 00:00 | weight_standard | 167 | lb | + + + + + | 2022-04-19 00:00 | BMI | 27.8 | kg/m2 | + + + + + | 2022-04-19 00:00 | BP_diastolic | 90 | mmHg | + + + + + | 2022-04-19 00:00 | BP_systolic | 132 | mmHg | + + + + + | 2022-04-19 00:00 | heart_rate | 99 | /min | + + + + + | 2022-04-19 00:00 | height_metric | 165.1 | cm | + + + + + | 2022-04-19 00:00 | height_standard | 65 | in | + + + + + | 2022-04-19 00:00 | o2_saturation | 98 | % | + + + + + | 2022-04-19 00:00 | respiration_rate | 16 | /min | + + + + + | 2022-04-19 00:00 | temperature_metric | 36.78 | C | | | | | | + + + + + | 2022-04-19 00:00 | | 98.2 | F | | | temperature_standar | | | | | d | | | + + + + + | 2022-04-19 00:00 | weight_metric | 75.75 | kg | + + + + + | 2022-04-19 00:00 | weight_standard | 167 | lb | + + + + + | 2022-06-08 00:00 | BMI | 26.0 | kg/m2 | + + + + + | 2022-06-08 00:00 | BP_diastolic | 80 | mmHg | + + + + + | 2022-06-08 00:00 | BP_systolic | 131 | mmHg | + + + + + | 2022-06-08 00:00 | heart_rate | 76 | /min | + + + + + | 2022-06-08 00:00 | height_metric | 165.1 | cm | + + + + + | 2022-06-08 00:00 | height_standard | 65 | in | + + + + + | 2022-06-08 00:00 | o2_saturation | 97 | % | + + + + + | 2022-06-08 00:00 | respiration_rate | 17 | /min | + + + + + | 2022-06-08 00:00 | temperature_metric | 36.89 | C | | | | | | + + + + + | 2022-06-08 00:00 | | 98.4 | F | | | temperature_standar | | | | | d | | | + + + + + | 2022-06-08 00:00 | weight_metric | 70.96 | kg | + + + + + | 2022-06-08 00:00 | weight_standard | 156.44 | lb | + + + + + | 2022-06-15 00:00 | BMI | 25.5 | kg/m2 | + + + + + | 2022-06-15 00:00 | height_metric | 165.1 | cm | + + + + + | 2022-06-15 00:00 | height_standard | 65 | in | + + + + + | 2022-06-15 00:00 | weight_metric | 69.6 | kg | + + + + + | 2022-06-15 00:00 | weight_standard | 153.44 | lb | + + + + + | 2022-06-16 00:00 | BP_diastolic | 78 | mmHg | + + + + + | 2022-06-16 00:00 | BP_systolic | 122 | mmHg | + + + + + | 2022-06-16 00:00 | heart_rate | 95 | /min | + + + + + | 2022-06-16 00:00 | o2_saturation | 97 | % | + + + + + | 2022-06-16 00:00 | respiration_rate | 18 | /min | + + + + + | 2022-06-16 00:00 | temperature_metric | 37 | C | | | | | | + + + + + | 2022-06-16 00:00 | | 98.6 | F | | | temperature_standar | | | | | d | | | + + + + + | 2022-06-19 00:00 | BMI | 26.3 | kg/m2 | + + + + + | 2022-06-19 00:00 | BP_diastolic | 75 | mmHg | + + + + + | 2022-06-19 00:00 | BP_systolic | 111 | mmHg | + + + + + | 2022-06-19 00:00 | heart_rate | 78 | /min | + + + + + | 2022-06-19 00:00 | height_metric | 165.1 | cm | + + + + + | 2022-06-19 00:00 | height_standard | 65 | in | + + + + + | 2022-06-19 00:00 | o2_saturation | 98 | % | + + + + + | 2022-06-19 00:00 | respiration_rate | 16 | /min | + + + + + | 2022-06-19 00:00 | temperature_metric | 36.78 | C | | | | | | + + + + + | 2022-06-19 00:00 | | 98.2 | F | | | temperature_standar | | | | | d | | | + + + + + | 2022-06-19 00:00 | weight_metric | 71.8 | kg | + + + + + | 2022-06-19 00:00 | weight_standard | 158.29 | lb | + + + + + | 2022-07-08 00:00 | BMI | 26.3 | kg/m2 | + + + + + | 2022-07-08 00:00 | BP_diastolic | 63 | mmHg | + + + + + | 2022-07-08 00:00 | BP_systolic | 99 | mmHg | + + + + + | 2022-07-08 00:00 | heart_rate | 118 | /min | + + + + + | 2022-07-08 00:00 | height_metric | 165.1 | cm | + + + + + | 2022-07-08 00:00 | height_standard | 65 | in | + + + + + | 2022-07-08 00:00 | o2_saturation | 98 | % | + + + + + | 2022-07-08 00:00 | respiration_rate | 17 | /min | + + + + + | 2022-07-08 00:00 | temperature_metric | 37 | C | | | | | | + + + + + | 2022-07-08 00:00 | | 98.6 | F | | | temperature_standar | | | | | d | | | + + + + + | 2022-07-08 00:00 | weight_metric | 71.67 | kg | + + + + + | 2022-07-08 00:00 | weight_standard | 158 | lb | + + + + + | 2022-07-08 00:00 | weight_standard | 158.01 | lb | + + + + + | 2022-07-09 00:00 | BMI | 28.9 | kg/m2 | + + + + + | 2022-07-09 00:00 | height_metric | 165.1 | cm | + + + + + | 2022-07-09 00:00 | height_standard | 65 | in | + + + + + | 2022-07-09 00:00 | weight_metric | 78.7 | kg | + + + + + | 2022-07-09 00:00 | weight_standard | 173.5 | lb | + + + + + | 2022-07-11 00:00 | BP_diastolic | 74 | mmHg | + + + + + | 2022-07-11 00:00 | BP_systolic | 107 | mmHg | + + + + + | 2022-07-11 00:00 | heart_rate | 122 | /min | + + + + + | 2022-07-11 00:00 | o2_saturation | 100 | % | + + + + + | 2022-07-11 00:00 | respiration_rate | 18 | /min | + + + + + | 2022-07-11 00:00 | temperature_metric | 36.56 | C | | | | | | + + + + + | 2022-07-11 00:00 | | 97.8 | F | | | temperature_standar | | | | | d | | | + + + + + | 2022-07-12 00:00 | BMI | 28.2 | kg/m2 | + + + + + | 2022-07-12 00:00 | height_metric | 165.1 | cm | + + + + + | 2022-07-12 00:00 | height_standard | 65 | in | + + + + + | 2022-07-12 00:00 | weight_metric | 76.8 | kg | + + + + + | 2022-07-12 00:00 | weight_standard | 169.32 | lb | + + + + + | 2022-07-14 00:00 | BP_diastolic | 78 | mmHg | + + + + + | 2022-07-14 00:00 | BP_systolic | 106 | mmHg | + + + + + | 2022-07-14 00:00 | heart_rate | 95 | /min | + + + + + | 2022-07-14 00:00 | o2_saturation | 100 | % | + + + + + | 2022-07-14 00:00 | respiration_rate | 16 | /min | + + + + + | 2022-07-14 00:00 | temperature_metric | 36.89 | C | | | | | | + + + + + | 2022-07-14 00:00 | | 98.4 | F | | | temperature_standar | | | | | d | | | + + + + + | 2022-07-20 00:00 | BMI | 28.5 | kg/m2 | + + + + + | 2022-07-20 00:00 | height_metric | 165.1 | cm | + + + + + | 2022-07-20 00:00 | height_standard | 65 | in | + + + + + | 2022-07-20 00:00 | weight_metric | 77.72 | kg | + + + + + | 2022-07-20 00:00 | weight_standard | 171.34 | lb | + + + + + | 2022-07-22 00:00 | BP_diastolic | 65 | mmHg | + + + + + | 2022-07-22 00:00 | BP_systolic | 114 | mmHg | + + + + + | 2022-07-22 00:00 | heart_rate | 90 | /min | + + + + + | 2022-07-22 00:00 | o2_saturation | 96 | % | + + + + + | 2022-07-22 00:00 | respiration_rate | 16 | /min | + + + + + | 2022-07-22 00:00 | temperature_metric | 36.94 | C | | | | | | + + + + + | 2022-07-22 00:00 | | 98.5 | F | | | temperature_standar | | | | | d | | | + + + + + | 2022-07-24 00:00 | BMI | 27.9 | kg/m2 | + + + + + | 2022-07-24 00:00 | BP_diastolic | 93 | mmHg | + + + + + | 2022-07-24 00:00 | BP_systolic | 133 | mmHg | + + + + + | 2022-07-24 00:00 | heart_rate | 98 | /min | + + + + + | 2022-07-24 00:00 | height_metric | 165.1 | cm | + + + + + | 2022-07-24 00:00 | height_standard | 65 | in | + + + + + | 2022-07-24 00:00 | o2_saturation | 100 | % | + + + + + | 2022-07-24 00:00 | respiration_rate | 18 | /min | + + + + + | 2022-07-24 00:00 | temperature_metric | 37.33 | C | | | | | | + + + + + | 2022-07-24 00:00 | | 99.2 | F | | | temperature_standar | | | | | d | | | + + + + + | 2022-07-24 00:00 | weight_metric | 76.09 | kg | + + + + + | 2022-07-24 00:00 | weight_standard | 167.75 | lb | + + + + + | 2022-07-27 00:00 | BMI | 27.9 | kg/m2 | + + + + + | 2022-07-27 00:00 | BP_diastolic | 62 | mmHg | + + + + + | 2022-07-27 00:00 | BP_systolic | 107 | mmHg | + + + + + | 2022-07-27 00:00 | heart_rate | 105 | /min | + + + + + | 2022-07-27 00:00 | height_metric | 165.1 | cm | + + + + + | 2022-07-27 00:00 | height_standard | 65 | in | + + + + + | 2022-07-27 00:00 | o2_saturation | 97 | % | + + + + + | 2022-07-27 00:00 | respiration_rate | 16 | /min | + + + + + | 2022-07-27 00:00 | temperature_metric | 36.78 | C | | | | | | + + + + + | 2022-07-27 00:00 | | 98.2 | F | | | temperature_standar | | | | | d | | | + + + + + | 2022-07-27 00:00 | weight_metric | 76.09 | kg | + + + + + | 2022-07-27 00:00 | weight_standard | 167.75 | lb | + + + + + | 2022-07-29 00:00 | BMI | 28.2 | kg/m2 | + + + + + | 2022-07-29 00:00 | BP_diastolic | 62 | mmHg | + + + + + | 2022-07-29 00:00 | BP_systolic | 109 | mmHg | + + + + + | 2022-07-29 00:00 | heart_rate | 96 | /min | + + + + + | 2022-07-29 00:00 | height_metric | 165.1 | cm | + + + + + | 2022-07-29 00:00 | height_standard | 65 | in | + + + + + | 2022-07-29 00:00 | o2_saturation | 96 | % | + + + + + | 2022-07-29 00:00 | respiration_rate | 16 | /min | + + + + + | 2022-07-29 00:00 | temperature_metric | 36.89 | C | | | | | | + + + + + | 2022-07-29 00:00 | | 98.4 | F | | | temperature_standar | | | | | d | | | + + + + + | 2022-07-29 00:00 | weight_metric | 76.79 | kg | + + + + + | 2022-07-29 00:00 | weight_standard | 169.29 | lb | + + + + + | 2022-07-29 00:00 | weight_standard | 169.3 | lb | + + + + + | 2022-07-31 00:00 | BMI | 28.2 | kg/m2 | + + + + + | 2022-07-31 00:00 | BP_diastolic | 75 | mmHg | + + + + + | 2022-07-31 00:00 | BP_systolic | 115 | mmHg | + + + + + | 2022-07-31 00:00 | heart_rate | 110 | /min | + + + + + | 2022-07-31 00:00 | height_metric | 165.1 | cm | + + + + + | 2022-07-31 00:00 | height_standard | 65 | in | + + + + + | 2022-07-31 00:00 | o2_saturation | 99 | % | + + + + + | 2022-07-31 00:00 | respiration_rate | 14 | /min | + + + + + | 2022-07-31 00:00 | temperature_metric | 36.83 | C | | | | | | + + + + + | 2022-07-31 00:00 | | 98.3 | F | | | temperature_standar | | | | | d | | | + + + + + | 2022-07-31 00:00 | weight_metric | 76.8 | kg | + + + + + | 2022-07-31 00:00 | weight_standard | 169.31 | lb | + + + + + | 2022-07-31 00:00 | weight_standard | 169.32 | lb | + + + + + | 2022-08-05 00:00 | BMI | 26.9 | kg/m2 | + + + + + | 2022-08-05 00:00 | BP_diastolic | 66 | mmHg | + + + + + | 2022-08-05 00:00 | BP_systolic | 108 | mmHg | + + + + + | 2022-08-05 00:00 | heart_rate | 98 | /min | + + + + + | 2022-08-05 00:00 | height_metric | 165.1 | cm | + + + + + | 2022-08-05 00:00 | height_standard | 65 | in | + + + + + | 2022-08-05 00:00 | o2_saturation | 98 | % | + + + + + | 2022-08-05 00:00 | respiration_rate | 20 | /min | + + + + + | 2022-08-05 00:00 | temperature_metric | 37.11 | C | | | | | | + + + + + | 2022-08-05 00:00 | | 98.8 | F | | | temperature_standar | | | | | d | | | + + + + + | 2022-08-05 00:00 | weight_metric | 73.3 | kg | + + + + + | 2022-08-05 00:00 | weight_standard | 161.6 | lb | + + + + + | 2022-08-13 00:00 | BMI | 28.0 | kg/m2 | + + + + + | 2022-08-13 00:00 | BP_diastolic | 78 | mmHg | + + + + + | 2022-08-13 00:00 | BP_systolic | 123 | mmHg | + + + + + | 2022-08-13 00:00 | heart_rate | 98 | /min | + + + + + | 2022-08-13 00:00 | height_metric | 165.1 | cm | + + + + + | 2022-08-13 00:00 | height_standard | 65 | in | + + + + + | 2022-08-13 00:00 | o2_saturation | 99 | % | + + + + + | 2022-08-13 00:00 | respiration_rate | 17 | /min | + + + + + | 2022-08-13 00:00 | temperature_metric | 37.11 | C | | | | | | + + + + + | 2022-08-13 00:00 | | 98.8 | F | | | temperature_standar | | | | | d | | | + + + + + | 2022-08-13 00:00 | weight_metric | 76.2 | kg | + + + + + | 2022-08-13 00:00 | weight_standard | 167.99 | lb | + + + + + | 2022-08-21 00:00 | BP_diastolic | 75 | mmHg | + + + + + | 2022-08-21 00:00 | BP_systolic | 112 | mmHg | + + + + + | 2022-08-21 00:00 | heart_rate | 114 | /min | + + + + + | 2022-08-21 00:00 | height_metric | 165.1 | cm | + + + + + | 2022-08-21 00:00 | height_standard | 65 | in | + + + + + | 2022-08-21 00:00 | o2_saturation | 99 | % | + + + + + | 2022-08-21 00:00 | respiration_rate | 16 | /min | + + + + + | 2022-08-21 00:00 | temperature_metric | 37 | C | | | | | | + + + + + | 2022-08-21 00:00 | | 98.6 | F | | | temperature_standar | | | | | d | | | + + + + + | 2022-08-31 00:00 | BMI | 27.9 | kg/m2 | + + + + + | 2022-08-31 00:00 | BP_diastolic | 80 | mmHg | + + + + + | 2022-08-31 00:00 | BP_systolic | 119 | mmHg | + + + + + | 2022-08-31 00:00 | heart_rate | 100 | /min | + + + + + | 2022-08-31 00:00 | height_metric | 165.1 | cm | + + + + + | 2022-08-31 00:00 | height_standard | 65 | in | + + + + + | 2022-08-31 00:00 | o2_saturation | 96 | % | + + + + + | 2022-08-31 00:00 | respiration_rate | 16 | /min | + + + + + | 2022-08-31 00:00 | temperature_metric | 36.67 | C | | | | | | + + + + + | 2022-08-31 00:00 | | 98 | F | | | temperature_standar | | | | | d | | | + + + + + | 2022-08-31 00:00 | weight_metric | 76.18 | kg | + + + + + | 2022-08-31 00:00 | weight_standard | 167.94 | lb | + + + + + | 2022-08-31 00:00 | weight_standard | 167.95 | lb | + + + + + | 2022-12-05 00:00 | BMI | 27.9 | kg/m2 | + + + + + | 2022-12-05 00:00 | BP_diastolic | 77 | mmHg | + + + + + | 2022-12-05 00:00 | BP_systolic | 126 | mmHg | + + + + + | 2022-12-05 00:00 | heart_rate | 92 | /min | + + + + + | 2022-12-05 00:00 | height_metric | 165.1 | cm | + + + + + | 2022-12-05 00:00 | height_standard | 65 | in | + + + + + | 2022-12-05 00:00 | o2_saturation | 97 | % | + + + + + | 2022-12-05 00:00 | respiration_rate | 18 | /min | + + + + + | 2022-12-05 00:00 | temperature_metric | 37.06 | C | | | | | | + + + + + | 2022-12-05 00:00 | | 98.7 | F | | | temperature_standar | | | | | d | | | + + + + + | 2022-12-05 00:00 | weight_metric | 76.18 | kg | + + + + + | 2022-12-05 00:00 | weight_standard | 167.94 | lb | + + + + + | 2022-12-05 00:00 | weight_standard | 167.95 | lb | + + + + +
--- OUTSIDE RECORDS SUMMARY | ~2022-12-07 | XMS | Continuity of Care Document ---
Demographics + + + | Address | [address] | | | [place] [address] | + + + | Preferred Language | Unknown | + + + | Marital Status | Never | + + + | Taoist Affiliation | Unknown | + + + | Race | White | + + + | Ethnic Group | Not or | + + + Author + + + | Author | [facility] | + + + | Organization | [facility] | + + + | Address | [address] | | | [place] [address] | + + + | Phone | | + + + Care Team Providers + + + + | Care Silverware Etcher Name | Role | Phone | + [...] + | (no date) | ADHESIVE | [facility] | (no reaction) | (no severity) | | | [facility] | | | | | | Hospital | | | + + + + + + | (no date) | | [facility] | (no reaction) | (no severity) | | | DIPHENHYDRAMINE | Medical Center | | | | | HCL | Hospital | | | + + + + + + | (no date) | PREGABALIN | [facility] | (no reaction) | (no severity) | | | | [facility] Center | | | | | | Hospital | | | + + + + + + | (no date) | SOAP | [facility] | (no reaction) | (no severity) | [...] | TARIEleazar Srini 6 mo-63 yrs | [facility] | | | Quadrivalent [...] | 2022-07-11 00:00 | CETIRIZINE HCL | [facility] | + + + + | 2022-07-14 00:00 | CETIRIZINE HCL | [facility] | + + + + | 2022-07-22 00:00 | CETIRIZINE HCL | [facility] | + + + + | 2022-07-24 00:00 | CETIRIZINE HCL | [facility] | + + + + | 2022-07-27 00:00 | CETIRIZINE HCL | [facility] | + + + + | 2022-07-29 00:00 | CETIRIZINE HCL | [facility] | + + + + | 2022-07-31 00:00 | CETIRIZINE HCL | [facility] | + + + + | 2022-08-05 00:00 | CETIRIZINE HCL | [facility] | + + + + | 2022-08-13 00:00 | CETIRIZINE HCL | [facility] | + + + + | 2022-08-21 00:00 | CETIRIZINE HCL | [facility] | + + + + | 2022-08-31 00:00 | CETIRIZINE HCL | [facility] | + + + + | 2022-12-05 00:00 | CETIRIZINE HCL | [facility] | + + + + | 2020-01-21 00:00 | hydrOXYzine HCl 50 MG Oral | [facility] | | | Tablet | | + + + + | 2020-12-03 00:00 | lurasidone hydrochloride | [facility] | | | 40 MG Oral Tablet [Latuda] | | + + + + | 2021-11-14 00:00 | ONDANSETRON | [facility] | + + + + | 2021-12-03 00:00 | ONDANSETRON | [facility] | + + + + | 2021-12-30 00:00 | ONDANSETRON | [facility] | + + + + | 2022-01-12 00:00 | ONDANSETRON | [facility] | + + + + | 2022-02-02 00:00 | ONDANSETRON | [facility] | + + + + | 2022-02-06 00:00 | ONDANSETRON | [facility] | + + + + | 2022-02-09 00:00 | ONDANSETRON | [facility] | + + + + | 2022-02-19 00:00 | ONDANSETRON | [facility] | + + + + | 2022-02-28 00:00 | ONDANSETRON | [facility] | + + + + | 2022-04-12 00:00 | ONDANSETRON | [facility] | + + + + | 2022-04-12 00:00 | ONDANSETRON | [facility] | + + + + | 2022-04-19 00:00 | ONDANSETRON | [facility] | + + + + | 2022-06-08 00:00 | ONDANSETRON | [facility] | + + + + | 2022-06-16 00:00 | ONDANSETRON | [facility] | + + + + | 2022-06-19 00:00 | ONDANSETRON | [facility] | + + + + | 2022-07-08 00:00 | ONDANSETRON | [facility] | + + + + | 2022-07-11 00:00 | ONDANSETRON | [facility] | + + + + | 2022-07-14 00:00 | ONDANSETRON | [facility] | + + + + | 2022-07-22 00:00 | ONDANSETRON | [facility] | + + + + | 2022-07-24 00:00 | ONDANSETRON | [facility] | + + + + | 2022-07-27 00:00 | ONDANSETRON | [facility] | + + + + | 2022-07-29 00:00 | ONDANSETRON | [facility] | + + + + | 2022-07-31 00:00 | ONDANSETRON | [facility] | + + + + | 2022-08-05 00:00 | ONDANSETRON | [facility] | + + + + | 2022-08-13 00:00 | ONDANSETRON | [facility] | + + + + | 2022-08-21 00:00 | ONDANSETRON | [facility] | + + + + | 2022-08-31 00:00 | ONDANSETRON | [facility] | + + + + | 2022-12-05 00:00 | ONDANSETRON | [facility] | + + + + | 2021-03-16 00:00 | ondansetron (as | [facility] | | | ondansetron hcl) 4 [...] | 2021-11-14 00:00 | ONDANSETRON HCL | [facility] | + + + + | 2021-12-03 00:00 | ONDANSETRON HCL | [facility] | + + + + | 2021-12-30 00:00 | ONDANSETRON HCL | [facility] | + + + + | 2022-01-12 00:00 | ONDANSETRON HCL | [facility] | + + + + | 2022-02-02 00:00 | ONDANSETRON HCL | [facility] | + + + + | 2022-02-06 00:00 | ONDANSETRON HCL | [facility] | + + + + | 2022-02-09 00:00 | ONDANSETRON HCL | [facility] | + + + + | 2022-02-19 00:00 | ONDANSETRON HCL | [facility] | + + + + | 2022-02-28 00:00 | ONDANSETRON HCL | [facility] | + + + + | 2022-04-12 00:00 | ONDANSETRON HCL | [facility] | + + + + | 2022-04-19 00:00 | ONDANSETRON HCL | [facility] | + + + + | 2022-06-08 00:00 | ONDANSETRON HCL | [facility] | + + + + | 2022-06-16 00:00 | ONDANSETRON HCL | [facility] | + + + + | 2022-06-19 00:00 | ONDANSETRON HCL | [facility] | + + + + | 2022-07-08 00:00 | ONDANSETRON HCL | [facility] | + + + + | 2022-07-11 00:00 | ONDANSETRON HCL | [facility] | + + + + | 2022-07-14 00:00 | ONDANSETRON HCL | [facility] | + + + + | 2022-07-22 00:00 | ONDANSETRON HCL | [facility] | + + + + | 2022-07-24 00:00 | ONDANSETRON HCL | [facility] | + + + + | 2022-07-27 00:00 | ONDANSETRON HCL | [facility] | + + + + | 2022-07-29 00:00 | ONDANSETRON HCL | [facility] | + + + + | 2022-07-31 00:00 | ONDANSETRON HCL | [facility] | + + + + | 2022-08-05 00:00 | ONDANSETRON HCL | [facility] | + + + + | 2022-08-13 00:00 | ONDANSETRON HCL | [facility] | + + + + | 2022-08-21 00:00 | ONDANSETRON HCL | [facility] | + + + + | 2022-08-31 00:00 | ONDANSETRON HCL | [facility] | + + + + | 2022-12-05 00:00 | ONDANSETRON HCL | [facility] | + + + + | 2019-06-23 00:00 | ONDANSETRON HCL | [facility] | + + + + | 2019-06-23 00:00 | ONDANSETRON HCL | [facility] | + + + + | 2019-06-23 00:00 | ONDANSETRON HCL | [facility] | + + + + | 2019-06-23 00:00 | ONDANSETRON HCL | [facility] | + + + + | 2021-08-15 00:00 | OXYCODONE | [facility] | | | HCL/ACETAMINOPHEN | | + [...] + | 2022-02-02 00:00 | OXYCODONE | [facility] | | | HCL/ACETAMINOPHEN | | + + + + | 2022-02-02 00:00 | OXYCODONE | [facility] | | | HCL/ACETAMINOPHEN | | + + + + | 2021-10-05 00:00 | magnesium citrate 1.745 gm | [facility] | | | in 1 fl oz oral solution | Specialties | + + + + | 2021-11-14 00:00 | DOCUSATE SODIUM | [facility] | + + + + | 2021-12-03 00:00 | DOCUSATE SODIUM | [facility] | + + + + | 2021-12-30 00:00 | DOCUSATE SODIUM | [facility] | + + + + | 2022-01-12 00:00 | DOCUSATE SODIUM | [facility] | + + + + | 2022-02-02 00:00 | DOCUSATE SODIUM | [facility] | + + + + | 2022-02-06 00:00 | DOCUSATE SODIUM | [facility] | + + + + | 2022-02-09 00:00 | DOCUSATE SODIUM | [facility] | + + + + | 2022-02-19 00:00 | DOCUSATE SODIUM | [facility] | + + + + | 2022-02-28 00:00 | DOCUSATE SODIUM | [facility] | + + + + | 2022-04-12 00:00 | DOCUSATE SODIUM | [facility] | + + + + | 2022-04-19 00:00 | DOCUSATE SODIUM | [facility] | + + + + | 2022-06-08 00:00 | DOCUSATE SODIUM | [facility] | + + + + | 2022-06-16 00:00 | DOCUSATE SODIUM | [facility] | + + + + | 2022-06-19 00:00 | DOCUSATE SODIUM | [facility] | + + + + | 2022-07-08 00:00 | DOCUSATE SODIUM | [facility] | + + + + | 2022-07-11 00:00 | DOCUSATE SODIUM | [facility] | + + + + | 2022-07-14 00:00 | DOCUSATE SODIUM | [facility] | + + + + | 2022-07-22 00:00 | DOCUSATE SODIUM | [facility] | + + + + | 2022-07-24 00:00 | DOCUSATE SODIUM | [facility] | + + + + | 2022-07-27 00:00 | DOCUSATE SODIUM | [facility] | + + + + | 2022-07-29 00:00 | DOCUSATE SODIUM | [facility] | + + + + | 2022-07-31 00:00 | DOCUSATE SODIUM | [facility] | + + + + | 2022-08-05 00:00 | DOCUSATE SODIUM | [facility] | + + + + | 2022-08-13 00:00 | DOCUSATE SODIUM | [facility] | + + + + | 2022-08-21 00:00 | DOCUSATE SODIUM | [facility] | + + + + | 2022-08-31 00:00 | DOCUSATE SODIUM | [facility] | + + + + | 2022-12-05 00:00 | DOCUSATE SODIUM | [facility] | + + + + | 2021-08-15 00:00 | DOCUSATE SODIUM | [facility] | + + + + | 2021-08-15 00:00 | DOCUSATE SODIUM | [facility] | + + + + | 2021-08-15 00:00 | DOCUSATE SODIUM | [facility] | + + + + | 2021-08-15 00:00 | DOCUSATE SODIUM | [facility] | + + + + | 2021-11-14 00:00 | DOCUSATE SODIUM | [facility] | + + + + | 2021-12-03 00:00 | DOCUSATE SODIUM | [facility] | + + + + | 2021-12-30 00:00 | DOCUSATE SODIUM | [facility] | + + + + | 2022-01-12 00:00 | DOCUSATE SODIUM | [facility] | + + + + | 2022-02-02 00:00 | DOCUSATE SODIUM | [facility] | + + + + | 2022-02-06 00:00 | DOCUSATE SODIUM | [facility] | + + + + | 2022-02-09 00:00 | DOCUSATE SODIUM | [facility] | + + + + | 2022-02-19 00:00 | DOCUSATE SODIUM | [facility] | + + + + 2022-02-28 00:00 | DOCUSATE SODIUM | [facility] | + + + + | 2022-04-12 00:00 | DOCUSATE SODIUM | [facility] | + + + + | 2022-04-19 00:00 | DOCUSATE SODIUM | [facility] | + + + + | 2022-06-08 00:00 | DOCUSATE SODIUM | [facility] | + + + + | 2022-06-16 00:00 | DOCUSATE SODIUM | [facility] | + + + + | 2022-06-19 00:00 | DOCUSATE SODIUM | [facility] | + + + + | 2022-07-08 00:00 | DOCUSATE SODIUM | [facility] | + + + + | 2022-07-11 00:00 | DOCUSATE SODIUM | [facility] | + + + + | 2022-07-14 00:00 | DOCUSATE SODIUM | [facility] | + + + + | 2022-07-22 00:00 | DOCUSATE SODIUM | [facility] | + + + + | 2022-07-24 00:00 | DOCUSATE SODIUM | [facility] | + + + + | 2022-07-27 00:00 | DOCUSATE SODIUM | [facility] | + + + + | 2022-07-29 00:00 | DOCUSATE SODIUM | [facility] | + + + + | 2022-07-31 00:00 | DOCUSATE SODIUM | [facility] | + + + + | 2022-08-05 00:00 | DOCUSATE SODIUM | [facility] | + + + + | 2022-08-13 00:00 | DOCUSATE SODIUM | [facility] | + + + + | 2022-08-21 00:00 | DOCUSATE SODIUM | [facility] | + + + + | 2022-08-31 00:00 | DOCUSATE SODIUM | [facility] | + + + + | 2022-12-05 00:00 | DOCUSATE SODIUM | [facility] | + + + + | 2021-07-27 [...] 00:00 | docusate sodium 100 mg | [facility] | | | oral capsule | | + + + + | 2021-10-05 00:00 | docusate sodium 100 mg | [facility] | | | oral capsule | [facility] | + + + + | 2021-09-21 00:00 | Amitriptyline HCl 25 MG | [facility] | | | Oral Tablet | | + + + + | 2020-01-25 00:00 | Levothyroxine Sodium 100 | [facility] | | | MCG [...] 00:00 | Fenofibrate 120 MG Oral | [facility] | | | Tablet | | + + + + | 2020-01-25 00:00 | DOK 100 MG Oral Tablet | [facility] | | | | | + + + + | 2020-01-25 00:00 | Pulmicort Flexhaler 90 | [facility] | | | MCG/ACT Inhalation Aerosol | | | | Powder Breath Activated | | + + + + | 2020-05-26 00:00 | Pulmicort Flexhaler 90 | [facility] | | | MCG/ACT Inhalation Aerosol | | | | Powder Breath Activated | | + + + + | 2020-12-10 00:00 | Pulmicort Flexhaler 90 | [facility] | | | MCG/ACT Inhalation Aerosol | | | | Powder Breath Activated | | + + + + | 2020-12-30 00:00 | Pulmicort Flexhaler 90 | [facility] | | | MCG/ACT Inhalation Aerosol | | | | Powder Breath Activated | | + + + + | 2021-02-12 00:00 | Pulmicort Flexhaler 90 | [facility] | | | MCG/ACT Inhalation Aerosol | | | | Powder Breath Activated | | + + + + | 2021-07-30 00:00 | 0.5 ml hydromorphone | [facility] | | | hydrochloride 1 mg/ml | Specialties | | | prefilled syringe | | + + + + | 2020-01-25 00:00 | Creon [id number] UNIT | [facility] | | | Oral Capsule Delayed | | | | Release Particles | | + + + + | 2021-02-12 00:00 | Creon [id number] UNIT | [facility] | | | Oral Capsule Delayed | | | | Release Particles | | + + + + | 2021-09-21 00:00 | Creon [id number] UNIT | [facility] | | | Oral [...] 2021-09-21 00:00 | Chantix Starting Month | [facility] | | | 0.5 MG X 11 & 1 MG X 42 | | | | Oral Tablet | | + + + + | 2020-01-25 00:00 | docusate sodium 100 MG | [facility] | | | Oral Tablet [DOK] | | + + + + | 2020-07-16 00:00 | topiramate 100 MG Oral | [facility] | | | Tablet [Topamax] | | + + + + | 2020-12-17 00:00 | meloxicam 15 MG Oral | [facility] | | | Tablet [...] | 2021-11-14 00:00 | QUETIAPINE FUMARATE | [facility] | + + + + | 2021-12-03 00:00 | QUETIAPINE FUMARATE | [facility] | + + + + | 2021-12-30 00:00 | QUETIAPINE FUMARATE | [facility] | + + + + | 2022-01-12 00:00 | QUETIAPINE FUMARATE | [facility] | + + + + | 2022-02-02 00:00 | QUETIAPINE FUMARATE | [facility] | + + + + | 2022-02-06 00:00 | QUETIAPINE FUMARATE | [facility] | + + + + | 2022-02-09 00:00 | QUETIAPINE FUMARATE | [facility] | + + + + | 2022-02-19 00:00 | QUETIAPINE FUMARATE | [facility] | + + + + | 2022-02-28 00:00 | QUETIAPINE FUMARATE | [facility] | + + + + | 2022-04-12 00:00 | QUETIAPINE FUMARATE | [facility] | + + + + | 2022-04-19 00:00 | QUETIAPINE FUMARATE | [facility] | + + + + | 2022-06-08 00:00 | QUETIAPINE FUMARATE | [facility] | + + + + | 2022-06-16 00:00 | QUETIAPINE FUMARATE | [facility] | + + + + | 2022-06-19 00:00 | QUETIAPINE FUMARATE | [facility] | + + + + | 2022-07-08 00:00 | QUETIAPINE FUMARATE | [facility] | + + + + | 2022-07-11 00:00 | QUETIAPINE FUMARATE | [facility] | + + + + | 2022-07-14 00:00 | QUETIAPINE FUMARATE | [facility] | + + + + | 2022-07-22 00:00 | QUETIAPINE FUMARATE | [facility] | + + + + | 2022-07-24 00:00 | QUETIAPINE FUMARATE | [facility] | + + + + | 2022-07-27 00:00 | QUETIAPINE FUMARATE | [facility] | + + + + | 2022-07-29 00:00 | QUETIAPINE FUMARATE | [facility] | + + + + | 2022-07-31 00:00 | QUETIAPINE FUMARATE | [facility] | + + + + | 2022-08-05 00:00 | QUETIAPINE FUMARATE | [facility] | + + + + | 2022-08-13 00:00 | QUETIAPINE FUMARATE | [facility] | + + + + | 2022-08-21 00:00 | QUETIAPINE FUMARATE | [facility] | + + + + | 2022-08-31 00:00 | QUETIAPINE FUMARATE | [facility] | + + + + | 2022-12-05 00:00 | QUETIAPINE FUMARATE | [facility] | + + + + | 2021-03-16 00:00 | quetiapine 100 MG Oral | [facility] | | | Tablet [Seroquel] | | + + + + | 2020-12-03 00:00 | Latuda 40 MG Oral Tablet | [facility] | | | | | + + + + | 2022-07-11 00:00 | INSULIN LISPRO | [facility] | + + + + | 2022-07-14 00:00 | INSULIN LISPRO | [facility] | + + + + | 2022-07-22 00:00 | INSULIN LISPRO | [facility] | + + + + | 2022-07-24 00:00 | INSULIN LISPRO | [facility] | + + + + | 2022-07-27 00:00 | INSULIN LISPRO | [facility] | + + + + | 2022-07-29 00:00 | INSULIN LISPRO | [facility] | + + + + | 2022-07-31 00:00 | INSULIN LISPRO | [facility] | + + + + | 2022-08-05 00:00 | INSULIN LISPRO | [facility] | + + + + | 2022-08-13 00:00 | INSULIN LISPRO | [facility] | + + + + | 2022-08-21 00:00 | INSULIN LISPRO | [facility] | + + + + | 2022-08-31 00:00 | INSULIN LISPRO | [facility] | + + + + | 2022-12-05 00:00 | INSULIN LISPRO | [facility] | + + + + | 2021-07-27 [...] per 3 ml pen injector | Care [facility] | + + + + | 2021-10-05 00:00 | insulin lispro 100 unt/ml | [facility] | | | per 3 ml pen injector | | + + + + | 2021-10-05 00:00 | insulin lispro 100 unt/ml | [facility] | | | per 3 ml pen injector | Care [address] [place] [address] | + + + + | 2021-11-14 00:00 | INSULIN LISPRO | [facility] | + + + + | 2021-12-03 00:00 | INSULIN LISPRO | [facility] | + + + + | 2021-12-30 00:00 | INSULIN LISPRO | [facility] | + + + + | 2022-01-12 00:00 | INSULIN LISPRO | [facility] | + + + + | 2022-02-02 00:00 | INSULIN LISPRO | [facility] | + + + + | 2022-02-06 00:00 | INSULIN LISPRO | [facility] | + + + + | 2022-02-09 00:00 | INSULIN LISPRO | [facility] | + + + + | 2022-02-19 00:00 | INSULIN LISPRO | [facility] | + + + + | 2022-02-28 00:00 | INSULIN LISPRO | [facility] | + + + + | 2022-04-12 00:00 | INSULIN LISPRO | [facility] | + + + + | 2022-04-19 00:00 | INSULIN LISPRO | [facility] | + + + + | 2022-06-08 00:00 | INSULIN LISPRO | [facility] | + + + + | 2022-06-16 00:00 | INSULIN LISPRO | [facility] | + + + + | 2022-06-19 00:00 | INSULIN LISPRO | [facility] | + + + + | 2022-07-08 00:00 | INSULIN LISPRO | [facility] | + + + + | 2022-07-11 00:00 | INSULIN LISPRO | [facility] | + + + + | 2022-07-14 00:00 | INSULIN LISPRO | [facility] | + + + + | 2022-07-22 00:00 | INSULIN LISPRO | [facility] | + + + + | 2022-07-24 00:00 | INSULIN LISPRO | [facility] | + + + + | 2022-07-27 00:00 | INSULIN LISPRO | [facility] | + + + + | 2022-07-29 00:00 | INSULIN LISPRO | [facility] | + + + + | 2022-07-31 00:00 | INSULIN LISPRO | [facility] | + + + + | 2022-08-05 00:00 | INSULIN LISPRO | [facility] | + + + + | 2022-08-13 00:00 | INSULIN LISPRO | [facility] | + + + + | 2022-08-21 00:00 | INSULIN LISPRO | [facility] | + + + + | 2022-08-31 00:00 | INSULIN LISPRO | [facility] | + + + + | 2022-12-05 00:00 | INSULIN LISPRO | [facility] | + + + + | 2021-07-19 [...] | 2021-12-03 00:00 | Cariprazine Hydrochloride | [facility] | + + + + | 2021-12-30 00:00 | Cariprazine Hydrochloride | [facility] | + + + + | 2022-01-12 00:00 | Cariprazine Hydrochloride | [facility] | + + + + | 2022-02-02 00:00 | Cariprazine Hydrochloride | [facility] | + + + + | 2022-02-06 00:00 | Cariprazine Hydrochloride | [facility] | + + + + | 2022-02-09 00:00 | Cariprazine Hydrochloride | [facility] | + + + + | 2022-02-19 00:00 | Cariprazine Hydrochloride | [facility] | + + + + | 2022-02-28 00:00 | Cariprazine Hydrochloride | [facility] | + + + + | 2022-04-12 00:00 | Cariprazine Hydrochloride | [facility] | + + + + | 2022-04-19 00:00 | Cariprazine Hydrochloride | [facility] | + + + + | 2022-06-08 00:00 | Cariprazine Hydrochloride | [facility] | + + + + | 2022-06-16 00:00 | Cariprazine Hydrochloride | [facility] | + + + + | 2022-06-19 00:00 | Cariprazine Hydrochloride | [facility] | + + + + | 2022-07-08 00:00 | Cariprazine Hydrochloride | [facility] | + + + + | 2022-07-11 00:00 | Cariprazine Hydrochloride | [facility] | + + + + 2022-07-14 00:00 | Cariprazine Hydrochloride | [facility] | + + + + | 2022-07-22 00:00 | Cariprazine Hydrochloride | [facility] | + + + + | 2022-07-24 00:00 | Cariprazine Hydrochloride | [facility] | + + + + | 2022-07-27 00:00 | Cariprazine Hydrochloride | [facility] | + + + + | 2022-07-29 00:00 | Cariprazine Hydrochloride | [facility] | + + + + | 2022-07-31 00:00 | Cariprazine Hydrochloride | [facility] | + + + + | 2022-08-05 00:00 | Cariprazine Hydrochloride | [facility] | + + + + | 2022-08-13 00:00 | Cariprazine Hydrochloride [facility] [facility] | + + + + | 2022-08-21 00:00 | Cariprazine Hydrochloride | [facility] | + + + + | 2022-08-31 00:00 | Cariprazine Hydrochloride | [facility] | + + + + | 2022-12-05 00:00 | Cariprazine Hydrochloride | [facility] | + + + + | 2021-12-18 [...] 2022-06-22 00:00 | Advocate Insulin Syringe | [facility] | | | 30G X 5/16" 0.5 ML | | | | Miscellaneous | | + + + + | 2021-07-21 00:00 | 2 ml famotidine 10 mg/ml | [facility] | | | injection | Care 7[address] Floor | + + + + | 2021-12-11 00:00 | Prazosin HCl 2 MG Oral | [facility] | | | Capsule | | + + + + | 2022-02-23 00:00 | Promethazine HCl 25 MG | [facility] | | | Oral Tablet | | + + + + | 2021-07-24 00:00 | 250 ml glucose 50 mg/ml / | [facility] | | | sodium chloride 9 mg/ml | Care 7[facility] Floor | | | injection | | + + + + | 2021-08-15 00:00 | FLUTICASONE PROPIONATE 50 | [facility] | | | MCG | | + + + + | 2021-08-15 00:00 | FLUTICASONE PROPIONATE 50 | [facility] | | | MCG | | + + + + | 2021-08-15 00:00 | FLUTICASONE PROPIONATE 50 | [facility] | | | MCG | | + + + + | 2021-08-15 00:00 | FLUTICASONE PROPIONATE 50 | [facility] | | | MCG | | + + + + | 2021-11-14 00:00 | FLUTICASONE PROPIONATE 50 | [facility] | | | MCG | | + + + + | 2021-12-03 00:00 | FLUTICASONE PROPIONATE 50 | [facility] | | | MCG | | + + + + | 2021-12-30 00:00 | FLUTICASONE PROPIONATE 50 | [facility] | | | MCG | | + + + + | 2022-01-12 00:00 | FLUTICASONE PROPIONATE 50 | [facility] | | | MCG | | + + + + | 2022-02-02 00:00 | FLUTICASONE PROPIONATE 50 | [facility] | | | MCG | | + + + + | 2022-02-06 00:00 | FLUTICASONE PROPIONATE 50 | [facility] | | | MCG | | + + + + | 2022-02-09 00:00 | FLUTICASONE PROPIONATE 50 | [facility] | | | MCG | | + + + + | 2022-02-19 00:00 | FLUTICASONE PROPIONATE 50 | [facility] | | | MCG | | + + + + | 2022-02-28 00:00 | FLUTICASONE PROPIONATE 50 | [facility] | | | MCG | | + + + + | 2022-04-12 00:00 | FLUTICASONE PROPIONATE 50 | [facility] | | | MCG | | + + + + | 2022-04-19 00:00 | FLUTICASONE PROPIONATE 50 | [facility] | | | MCG | | + + + + | 2022-06-08 00:00 | FLUTICASONE PROPIONATE 50 | [facility] | | | MCG | | + + + + | 2022-06-16 00:00 | FLUTICASONE PROPIONATE 50 | [facility] | | | MCG | | + + + + | 2022-06-19 00:00 | FLUTICASONE PROPIONATE 50 | [facility] | | | MCG | | + + + + | 2022-07-08 00:00 | FLUTICASONE PROPIONATE 50 | [facility] | | | MCG | | + + + + | 2022-07-11 00:00 | FLUTICASONE PROPIONATE 50 | [facility] | | | MCG | | + + + + | 2022-07-14 00:00 | FLUTICASONE PROPIONATE 50 | [facility] | | | MCG | | + + + + | 2022-07-22 00:00 | FLUTICASONE PROPIONATE 50 | [facility] | | | MCG | | + + + + | 2022-07-24 00:00 | FLUTICASONE PROPIONATE 50 | [facility] | | | MCG | | + + + + | 2022-07-27 00:00 | FLUTICASONE PROPIONATE 50 | [facility] | | | MCG | | + + + + | 2022-07-29 00:00 | FLUTICASONE PROPIONATE 50 | [facility] | | | MCG | | + + + + | 2022-07-31 00:00 | FLUTICASONE PROPIONATE 50 | [facility] | | | MCG | | + + + + | 2022-08-05 00:00 | FLUTICASONE PROPIONATE 50 | [facility] | | | MCG | | + + + + | 2022-08-13 00:00 | FLUTICASONE PROPIONATE 50 | [facility] | | | MCG | | + + + + | 2022-08-21 00:00 | FLUTICASONE PROPIONATE 50 | [facility] | | | MCG | | + + + + | 2022-08-31 00:00 | FLUTICASONE PROPIONATE 50 | [facility] | | | MCG | | + + + + | 2022-12-05 00:00 | FLUTICASONE PROPIONATE 50 | [facility] | | | MCG | | + + + + | 2021-06-18 00:00 | fluticasone propionate 50 | [facility] | | | mcg/actuat metered dose | | | | nasal spray | | + + + + | 2021-06-18 00:00 | fluticasone propionate 50 | [facility] | | | mcg/actuat metered dose | Care [facility] | | | nasal spray | [...] | | | mcg/actuat metered dose | [address] | | | nasal spray [...] Metered Dose | | | | Nasal [place] [Flonase] | | + + + + | 2021-02-12 00:00 | fluticasone propionate | [facility] | | | 0.05 MG/ACTUAT Metered Dose | | | | Nasal [place] [Flonase] | | + + + + [...] 2021-02-12 00:00 | Lantus SoloStar 100 | [facility] | | | UNIT/ML Subcutaneous | | | | Solution Pen-injector | | + + + + | 2021-11-16 00:00 | Lantus SoloStar 100 | [facility] | | | UNIT/ML Subcutaneous | | | | Solution Pen-injector | | + + + + | 2020-01-18 00:00 | Levemir FlexTouch 100 | [facility] | | | UNIT/ML Subcutaneous | | | | Solution Pen-injector | | + + + + | 2022-02-23 00:00 | Chewable Iron 30-10-25 MG | [facility] | | | Oral [...] 0.5 UNT Doses 3 ML insulin | [facility] | | | lispro 100 UNT/ML Pen | | | | Injector [Humalog] | | + + + + | 2021-02-12 00:00 | 0.5 UNT Doses 3 ML insulin | [facility] | | | lispro 100 UNT/ML Pen | | | | Injector [Humalog] | | + + + + | 2020-07-16 00:00 | baclofen 10 MG Oral Tablet | [facility] | | | | | + + + + | 2021-02-24 00:00 | baclofen 10 MG Oral Tablet | [facility] | | | | | + + + + | 2022-06-19 00:00 | CEPHALEXIN | [facility] | + + + + | 2020-01-16 00:00 | clozapine 100 MG Oral | [facility] | | | Tablet | | + + + + | 2022-06-16 00:00 | ESTRADIOL | [facility] | + + + + | 2022-06-19 00:00 | ESTRADIOL | [facility] | + + + + | 2022-07-08 00:00 | ESTRADIOL | [facility] | + + + + | 2022-07-11 00:00 | ESTRADIOL | [facility] | + + + + | 2022-07-14 00:00 | ESTRADIOL | [facility] | + + + + | 2022-07-22 00:00 | ESTRADIOL | [facility] | + + + + | 2022-07-24 00:00 | ESTRADIOL | [facility] | + + + + | 2022-07-27 00:00 | ESTRADIOL | [facility] | + + + + | 2022-07-29 00:00 | ESTRADIOL | [facility] | + + + + | 2022-07-31 00:00 | ESTRADIOL | [facility] | + + + + | 2022-08-05 00:00 | ESTRADIOL | [facility] | + + + + | 2022-08-13 00:00 | ESTRADIOL | [facility] | + + + + | 2022-08-21 00:00 | ESTRADIOL | [facility] | + + + + | 2022-08-31 00:00 | ESTRADIOL | [facility] | + + + + | 2022-12-05 00:00 | ESTRADIOL | [facility] | + + + + | 2021-08-15 00:00 | IBUPROFEN | [facility] | + + + + | 2022-02-06 00:00 | IBUPROFEN | [facility] | + + + + | 2022-02-09 00:00 | IBUPROFEN | [facility] | + + + + | 2022-02-19 00:00 | IBUPROFEN | [facility] | + + + + | 2022-02-28 00:00 | IBUPROFEN | [facility] | + + + + | 2022-04-12 00:00 | IBUPROFEN | [facility] | + + + + | 2022-04-19 00:00 | IBUPROFEN | [facility] | + + + + | 2022-06-08 00:00 | IBUPROFEN | [facility] | + + + + | 2022-06-16 00:00 | IBUPROFEN | [facility] | + + + + | 2022-06-19 00:00 | IBUPROFEN | [facility] | + + + + | 2022-07-08 00:00 | IBUPROFEN | [facility] | + + + + | 2022-07-11 00:00 | IBUPROFEN | [facility] | + + + + | 2022-07-14 00:00 | IBUPROFEN | [facility] | + + + + | 2022-07-22 00:00 | IBUPROFEN | [facility] | + + + + | 2022-07-24 00:00 | IBUPROFEN | [facility] | + + + + | 2022-07-27 00:00 | IBUPROFEN | [facility] | + + + + | 2022-07-29 00:00 | IBUPROFEN | [facility] | + + + + | 2022-07-31 00:00 | IBUPROFEN | [facility] | + + + + | 2022-08-05 00:00 | IBUPROFEN | [facility] | + + + + | 2022-08-13 00:00 | IBUPROFEN | [facility] | + + + + | 2022-08-21 00:00 | IBUPROFEN | [facility] | + + + + | 2022-08-31 00:00 | IBUPROFEN | [facility] | + + + + | 2022-12-05 00:00 | IBUPROFEN | [facility] | + + + + | 2021-07-24 [...] + | 2022-06-16 00:00 | NICOTINE | [facility] | + + + + | 2022-06-16 00:00 | NICOTINE | [facility] | + + + + | 2022-06-16 00:00 | NICOTINE | [facility] | + + + + | 2022-06-16 00:00 | NICOTINE | [facility] | + + + + | 2021-07-21 00:00 | nicotine 21 mg per 24hr 1 | [facility] | | | day transdermal patch | Care 7th Floor | + + + + | 2019-06-23 00:00 | OMEPRAZOLE | [facility] | + + + + | 2019-06-23 00:00 | OMEPRAZOLE | [facility] | + + + + | 2019-06-23 00:00 | OMEPRAZOLE | [facility] | + + + + | 2019-06-23 00:00 | OMEPRAZOLE | [facility] | + + + + | 2021-08-15 00:00 | OMEPRAZOLE | [facility] | + + + + | 2021-08-15 00:00 | OMEPRAZOLE | [facility] | + + + + | 2021-08-15 00:00 | OMEPRAZOLE | [facility] | + + + + | 2021-08-15 00:00 | OMEPRAZOLE | [facility] | + + + + | 2021-11-14 00:00 | OMEPRAZOLE | [facility] | + + + + | 2021-12-03 00:00 | OMEPRAZOLE | [facility] | + + + + | 2021-12-30 00:00 | OMEPRAZOLE | [facility] | + + + + | 2022-01-12 00:00 | OMEPRAZOLE | [facility] | + + + + | 2022-02-02 00:00 | OMEPRAZOLE | [facility] | + + + + | 2022-02-06 00:00 | OMEPRAZOLE | [facility] | + + + + | 2022-02-09 00:00 | OMEPRAZOLE | [facility] | + + + + | 2022-02-19 00:00 | OMEPRAZOLE | [facility] | + + + + | 2022-02-28 00:00 | OMEPRAZOLE | [facility] | + + + + | 2022-04-12 00:00 | OMEPRAZOLE | [facility] | + + + + | 2022-04-19 00:00 | OMEPRAZOLE | [facility] | + + + + | 2022-06-08 00:00 | OMEPRAZOLE | [facility] | + + + + | 2022-06-16 00:00 | OMEPRAZOLE | [facility] | + + + + | 2022-06-19 00:00 | OMEPRAZOLE | [facility] | + + + + | 2022-07-08 00:00 | OMEPRAZOLE | [facility] | + + + + | 2022-07-11 00:00 | OMEPRAZOLE | [facility] | + + + + | 2022-07-14 00:00 | OMEPRAZOLE | [facility] | + + + + | 2022-07-22 00:00 | OMEPRAZOLE | [facility] | + + + + | 2022-07-24 00:00 | OMEPRAZOLE | [facility] | + + + + | 2022-07-27 00:00 | OMEPRAZOLE | [facility] | + + + + | 2022-07-29 00:00 | OMEPRAZOLE | [facility] | + + + + | 2022-07-31 00:00 | OMEPRAZOLE | [facility] | + + + + | 2022-08-05 00:00 | OMEPRAZOLE | [facility] | + + + + | 2022-08-13 00:00 | OMEPRAZOLE | [facility] | + + + + | 2022-08-21 00:00 | OMEPRAZOLE | [facility] | + + + + | 2022-08-31 00:00 | OMEPRAZOLE | [facility] | + + + + | 2022-12-05 00:00 | OMEPRAZOLE | [facility] | + + + + | 2020-04-18 [...] 00:00 | omeprazole 20 MG Delayed | [facility] | | | Release Oral Capsule | | + + + + | 2021-07-20 00:00 | omeprazole 20 mg (as | [facility] | | | omeprazole magnesium 20.6 | [address] | | | mg) delayed release [...] | | | omeprazole magnesium 20.6 | [address] | | | mg) delayed release oral | | | | capsule | | + + + + | 2021-07-29 00:00 | omeprazole 20 mg (as | [facility] | | | omeprazole magnesium 20.6 | Specialties | | | mg) delayed release oral | | | | capsule | | + + + + | 2021-10-05 00:00 | omeprazole 20 mg (as | [facility] | | | omeprazole magnesium 20.6 | | | | mg) delayed release oral | | | | capsule | | + + + + | 2021-10-05 00:00 | omeprazole 20 mg (as | [facility] | | | omeprazole magnesium 20.6 | [address] | | | mg) delayed release oral | | | | capsule | | + + + + | 2022-06-16 00:00 | PRAZOSIN HCL | [facility] | + + + + | 2022-06-19 00:00 | PRAZOSIN HCL | [facility] | + + + + | 2022-07-08 00:00 | PRAZOSIN HCL | [facility] | + + + + | 2022-07-11 00:00 | PRAZOSIN HCL | [facility] | + + + + | 2022-07-14 00:00 | PRAZOSIN HCL | [facility] | + + + + | 2022-07-22 00:00 | PRAZOSIN HCL | [facility] | + + + + | 2022-07-24 00:00 | PRAZOSIN HCL | [facility] | + + + + | 2022-07-27 00:00 | PRAZOSIN HCL | [facility] | + + + + | 2022-07-29 00:00 | PRAZOSIN HCL | [facility] | + + + + | 2022-07-31 00:00 | PRAZOSIN HCL | [facility] | + + + + | 2022-08-05 00:00 | PRAZOSIN HCL | [facility] | + + + + | 2022-08-13 00:00 | PRAZOSIN HCL | [facility] | + + + + 2022-08-21 00:00 | PRAZOSIN HCL | [facility] | + + + + | 2022-08-31 00:00 | PRAZOSIN HCL | [facility] | + + + + | 2022-12-05 00:00 | PRAZOSIN HCL | [facility] | + + + + | 2021-08-15 00:00 | | [facility] | | | SULFAMETHOXAZOLE/TRIMETHOPR | | | | IM | | + + + + | 2022-08-31 00:00 | PROCHLORPERAZINE MALEATE | [facility] | + + + + | 2022-08-31 00:00 | PROCHLORPERAZINE MALEATE | [facility] | + + + + | 2021-08-15 00:00 | ACETAMINOPHEN | [facility] | + + + + | 2015-07-25 00:00 | acetaminophen 500 mg oral | [facility] | | | tablet | | [...] | 2019-06-23 00:00 | MAGNESIUM OXIDE | [facility] | + + + + | 2019-06-23 00:00 | MAGNESIUM OXIDE | [facility] | + + + + | 2019-06-23 00:00 | MAGNESIUM OXIDE | [facility] | + + + + | 2019-06-23 00:00 | MAGNESIUM OXIDE | [facility] | + + + + | 2022-02-06 00:00 | Magnesium Oxide | [facility] | + + + + | 2022-02-09 00:00 | Magnesium Oxide | [facility] | + + + + | 2022-02-19 00:00 | Magnesium Oxide | [facility] | + + + + | 2022-02-28 00:00 | Magnesium Oxide | [facility] | + + + + | 2022-04-12 00:00 | Magnesium Oxide | [facility] | + + + + | 2022-04-19 00:00 | Magnesium Oxide | [facility] | + + + + | 2022-06-08 00:00 | Magnesium Oxide | [facility] | + + + + | 2022-06-16 00:00 | Magnesium Oxide | [facility] | + + + + | 2022-06-19 00:00 | Magnesium Oxide | [facility] | + + + + | 2022-07-08 00:00 | Magnesium Oxide | [facility] | + + + + | 2022-07-11 00:00 | Magnesium Oxide | [facility] | + + + + | 2022-07-14 00:00 | Magnesium Oxide | [facility] | + + + + | 2022-07-22 00:00 | Magnesium Oxide | [facility] | + + + + | 2022-07-24 00:00 | Magnesium Oxide | [facility] | + + + + | 2022-07-27 00:00 | Magnesium Oxide | [facility] | + + + + | 2022-07-29 00:00 | Magnesium Oxide | [facility] | + + + + | 2022-07-31 00:00 | Magnesium Oxide | [facility] | + + + + | 2022-08-05 00:00 | Magnesium Oxide | [facility] | + + + + | 2022-08-13 00:00 | Magnesium Oxide | [facility] | + + + + | 2022-08-21 00:00 | Magnesium Oxide | [facility] | + + + + | 2022-08-31 00:00 | Magnesium Oxide | [facility] | + + + + | 2022-12-05 00:00 | Magnesium Oxide | [facility] | + + + + | 2020-01-25 00:00 | magnesium oxide 400 MG | [facility] | | | Oral Tablet | | + + + + | 2021-02-12 00:00 | magnesium oxide 400 MG | [facility] | | | Oral [...] 2020-01-08 00:00 | Raúl Salamanca 100 | [facility] | | | UNIT/ML Subcutaneous | | | | Solution Pen-injector | | + + + + | 2021-02-12 00:00 | Raúl Salamanca 100 | [facility] | | | UNIT/ML Subcutaneous | | | | Solution Pen-injector | | + + + + | 2020-01-21 00:00 | topiramate 25 MG Oral | [facility] | | | Tablet | | + + + + | 2020-07-23 00:00 | FreeStyle [place] | [facility] | | | Device | | + + + + | 2021-01-02 00:00 | FreeStyle [place] | [facility] | | | Device | | + + + + | 2022-01-12 00:00 | CEFDINIR | [facility] | + + + + | 2020-07-16 00:00 | Dexcom G6 Transmitter | [facility] | | | Miscellaneous | | + + + + | 2020-07-16 00:00 | Dexcom G6 Sensor | [facility] | | | Miscellaneous | | + + + + | 2020-07-16 00:00 | Dexcom G6 Rounding And Backing Machine Operator Device | [facility] | | | | | + + + + | 2021-03-17 00:00 | CVS Gummy 0.4 MG | [facility] | | | Oral Tablet Chewable | | + + + + | 2022-02-02 00:00 | Ibuprofen | [facility] | + + + + | 2020-11-18 00:00 | Blood Glucose/Ketone | [facility] | | | w/Device Kit | | + + + + | 2019-06-23 00:00 | PRAZOSIN HCL | [facility] | + + + + | 2019-06-23 00:00 | PRAZOSIN HCL | [facility] | + + + + | 2019-06-23 00:00 | PRAZOSIN HCL | [facility] | + + + + | 2019-06-23 00:00 | PRAZOSIN HCL | [facility] | + + + + | 2021-11-14 00:00 | PRAZOSIN HCL | [facility] | + + + + | 2021-12-03 00:00 | PRAZOSIN HCL | [facility] | + + + + | 2021-12-30 00:00 | PRAZOSIN HCL | [facility] | + + + + | 2022-01-12 00:00 | PRAZOSIN HCL | [facility] | + + + + | 2022-02-02 00:00 | PRAZOSIN HCL | [facility] | + + + + | 2022-02-06 00:00 | PRAZOSIN HCL | [facility] | + + + + | 2022-02-09 00:00 | PRAZOSIN HCL | [facility] | + + + + | 2022-02-19 00:00 | PRAZOSIN HCL | [facility] | + + + + | 2022-02-28 00:00 | PRAZOSIN HCL | [facility] | + + + + | 2022-04-12 00:00 | PRAZOSIN HCL | [facility] | + + + + | 2022-04-19 00:00 | PRAZOSIN HCL | [facility] | + + + + | 2022-06-08 00:00 | PRAZOSIN HCL | [facility] | + + + + | 2022-06-16 00:00 | PRAZOSIN HCL | [facility] | + + + + | 2022-06-19 00:00 | PRAZOSIN HCL | [facility] | + + + + | 2022-07-08 00:00 | PRAZOSIN HCL | [facility] | + + + + | 2022-07-11 00:00 | PRAZOSIN HCL | [facility] | + + + + | 2022-07-14 00:00 | PRAZOSIN HCL | [facility] | + + + + | 2022-07-22 00:00 | PRAZOSIN HCL | [facility] | + + + + | 2022-07-24 00:00 | PRAZOSIN HCL | [facility] | + + + + | 2022-07-27 00:00 | PRAZOSIN HCL | [facility] | + + + + | 2022-07-29 00:00 | PRAZOSIN HCL | [facility] | + + + + | 2022-07-31 00:00 | PRAZOSIN HCL | [facility] | + + + + | 2022-08-05 00:00 | PRAZOSIN HCL | [facility] | + + + + | 2022-08-13 00:00 | PRAZOSIN HCL | [facility] | + + + + | 2022-08-21 00:00 | PRAZOSIN HCL | [facility] | + + + + | 2022-08-31 00:00 | PRAZOSIN HCL | [facility] | + + + + | 2022-12-05 00:00 | PRAZOSIN HCL | [facility] | + + + + | 2021-07-19 00:00 | prochlorperazine 5 mg/ml | [facility] | | | injectable solution | Care 7[address] Floor | + + + + | 2021-07-19 00:00 | [id number] 200 actuat | [facility] | | | albuterol 0.09 mg/actuat | [facility] | | | metered dose inhaler | | + + + + | 2021-07-27 00:00 | [id number] 200 actuat | [facility] | | | albuterol 0.09 mg/actuat | Department | | | metered dose inhaler | | + + + + | 2021-07-27 00:00 | [id number] 200 actuat | [facility] | | | albuterol 0.09 mg/actuat | Specialties | | | metered dose inhaler | | + + + + | 2021-07-27 00:00 | [id number] 200 actuat | [facility] | | | albuterol 0.09 mg/actuat | [facility] | | | metered dose inhaler | | + + + + | 2021-07-29 00:00 | [id number] 200 actuat | [facility] | | | albuterol 0.09 mg/actuat | Specialties | | | metered dose inhaler | | + + + + | 2021-10-05 00:00 | [id number] 200 actuat | [facility] | | | albuterol 0.09 mg/actuat | | | | metered dose inhaler | | + + + + | 2021-10-05 00:00 | [id number] 200 actuat | [facility] | | | albuterol 0.09 mg/actuat | [address] | | | metered dose inhaler | | + + + + | 2019-06-23 00:00 | CEPHALEXIN | [facility] | + + + + | 2019-06-23 00:00 | CEPHALEXIN | [facility] | + + + + | 2019-06-23 00:00 | CEPHALEXIN | [facility] | + + + + | 2019-06-23 00:00 | CEPHALEXIN | [facility] | + + + + | 2021-03-16 00:00 | Culturelle | [facility] | | | Wellness Oral Tablet | | | | Chewable | | + + + + | 2020-07-23 00:00 | FreeStyle Alvina 2 Sensor | [facility] | | | Miscellaneous | | + + + + | 2021-01-02 00:00 | FreeStyle Alvina 2 Sensor | [facility] | | | Miscellaneous [...] | Baclofen 10 MG Oral Tablet | [facility] | | | | | + + + + | 2021-11-14 00:00 | MAGNESIUM OXIDE | [facility] | + + + + | 2021-12-03 00:00 | MAGNESIUM OXIDE | [facility] | + + + + | 2021-12-30 00:00 | MAGNESIUM OXIDE | [facility] | + + + + | 2022-01-12 00:00 | MAGNESIUM OXIDE | [facility] | + + + + | 2022-02-02 00:00 | MAGNESIUM OXIDE | [facility] | + + + + | 2022-02-06 00:00 | MAGNESIUM OXIDE | [facility] | + + + + | 2022-02-09 00:00 | MAGNESIUM OXIDE | [facility] | + + + + | 2022-02-19 00:00 | MAGNESIUM OXIDE | [facility] | + + + + | 2022-02-28 00:00 | MAGNESIUM OXIDE | [facility] | + + + + | 2022-04-12 00:00 | MAGNESIUM OXIDE | [facility] | + + + + | 2022-04-19 00:00 | MAGNESIUM OXIDE | [facility] | + + + + | 2022-06-08 00:00 | MAGNESIUM OXIDE | [facility] | + + + + | 2022-06-16 00:00 | MAGNESIUM OXIDE | [facility] | + + + + | 2022-06-19 00:00 | MAGNESIUM OXIDE | [facility] | + + + + | 2022-07-08 00:00 | MAGNESIUM OXIDE | [facility] | + + + + | 2022-07-11 00:00 | MAGNESIUM OXIDE | [facility] | + + + + | 2022-07-14 00:00 | MAGNESIUM OXIDE | [facility] | + + + + | 2022-07-22 00:00 | MAGNESIUM OXIDE | [facility] | + + + + | 2022-07-24 00:00 | MAGNESIUM OXIDE | [facility] | + + + + | 2022-07-27 00:00 | MAGNESIUM OXIDE | [facility] | + + + + | 2022-07-29 00:00 | MAGNESIUM OXIDE | [facility] | + + + + | 2022-07-31 00:00 | MAGNESIUM OXIDE | [facility] | + + + + | 2022-08-05 00:00 | MAGNESIUM OXIDE | [facility] | + + + + | 2022-08-13 00:00 | MAGNESIUM OXIDE | [facility] | + + + + | 2022-08-21 00:00 | MAGNESIUM OXIDE | [facility] | + + + + | 2022-08-31 00:00 | MAGNESIUM OXIDE | [facility] | + + + + | 2022-12-05 00:00 | MAGNESIUM OXIDE | [facility] | + + + + | 2021-08-19 00:00 | busPIRone HCl 10 MG Oral | [facility] | | | Tablet | | + + + + | 2021-11-14 00:00 | PIOGLITAZONE HCL | [facility] | + + + + | 2021-12-03 00:00 | PIOGLITAZONE HCL | [facility] | + + + + | 2021-12-30 00:00 | PIOGLITAZONE HCL | [facility] | + + + + | 2022-01-12 00:00 | PIOGLITAZONE HCL | [facility] | + + + + | 2022-02-02 00:00 | PIOGLITAZONE HCL | [facility] | + + + + | 2022-02-06 00:00 | PIOGLITAZONE HCL | [facility] | + + + + | 2022-02-09 00:00 | PIOGLITAZONE HCL | [facility] | + + + + | 2022-02-19 00:00 | PIOGLITAZONE HCL | [facility] | + + + + | 2022-02-28 00:00 | PIOGLITAZONE HCL | [facility] | + + + + | 2022-04-12 00:00 | PIOGLITAZONE HCL | [facility] | + + + + | 2022-04-19 00:00 | PIOGLITAZONE HCL | [facility] | + + + + | 2022-06-08 00:00 | PIOGLITAZONE HCL | [facility] | + + + + | 2022-06-16 00:00 | PIOGLITAZONE HCL | [facility] | + + + + | 2022-06-19 00:00 | PIOGLITAZONE HCL | [facility] | + + + + | 2022-07-08 00:00 | PIOGLITAZONE HCL | [facility] | + + + + | 2022-07-11 00:00 | PIOGLITAZONE HCL | [facility] | + + + + | 2022-07-14 00:00 | PIOGLITAZONE HCL | [facility] | + + + + | 2022-07-22 00:00 | PIOGLITAZONE HCL | [facility] | + + + + | 2022-07-24 00:00 | PIOGLITAZONE HCL | [facility] | + + + + | 2022-07-27 00:00 | PIOGLITAZONE HCL | [facility] | + + + + | 2022-07-29 00:00 | PIOGLITAZONE HCL | [facility] | + + + + | 2022-07-31 00:00 | PIOGLITAZONE HCL | [facility] | + + + + | 2022-08-05 00:00 | PIOGLITAZONE HCL | [facility] | + + + + | 2022-08-13 00:00 | PIOGLITAZONE HCL | [facility] | + + + + | 2022-08-21 00:00 | PIOGLITAZONE HCL | [facility] | + + + + | 2022-08-31 00:00 | PIOGLITAZONE HCL | [facility] | + + + + | 2022-12-05 00:00 | PIOGLITAZONE HCL | [facility] | + + + + | 2021-09-21 00:00 | pioglitazone 30 MG Oral | [facility] | | | Tablet [Actos] | | + + + + | 2020-01-16 00:00 | cloZAPine 100 MG Oral | [facility] | | | Tablet | | + + + + | 2022-08-05 00:00 | BENZONATATE | [facility] | + + + + | 2022-08-05 00:00 | BENZONATATE | [facility] | + + + + | 2022-08-05 00:00 | BENZONATATE | [facility] | + + + + | 2020-01-25 00:00 | Magnesium Oxide 400 MG | [facility] | | | Oral Tablet | | + + + + | 2021-02-12 00:00 | Magnesium Oxide 400 MG | [facility] | | | Oral Tablet | | + + + + | 2022-02-23 00:00 | oxyCODONE HCl 5 MG Oral | [facility] | | | Tablet | | + + + + | 2021-08-15 00:00 | Aspirin | [facility] | + + + + | 2021-11-14 00:00 | Aspirin | [facility] | + + + + | 2021-12-03 00:00 | Aspirin | [facility] | + + + + | 2021-12-30 00:00 | Aspirin | [facility] | + + + + | 2022-01-12 00:00 | Aspirin | [facility] | + + + + | 2022-02-02 00:00 | Aspirin | [facility] | + + + + | 2022-02-06 00:00 | Aspirin | [facility] | + + + + | 2022-02-09 00:00 | Aspirin | [facility] | + + + + | 2022-02-19 00:00 | Aspirin | [facility] | + + + + | 2022-02-28 00:00 | Aspirin | [facility] | + + + + | 2022-04-12 00:00 | Aspirin | [facility] | + + + + | 2022-04-19 00:00 | Aspirin | [facility] | + + + + | 2022-06-08 00:00 | Aspirin | [facility] | + + + + | 2022-06-16 00:00 | Aspirin | [facility] | + + + + | 2022-06-19 00:00 | Aspirin | [facility] | + + + + | 2022-07-08 00:00 | Aspirin | [facility] | + + + + | 2022-07-11 00:00 | Aspirin | [facility] | + + + + | 2022-07-14 00:00 | Aspirin | [facility] | + + + + | 2022-07-22 00:00 | Aspirin | [facility] | + + + + | 2022-07-24 00:00 | Aspirin | [facility] | + + + + | 2022-07-27 00:00 | Aspirin | [facility] | + + + + | 2022-07-29 00:00 | Aspirin | [facility] | + + + + | 2022-07-31 00:00 | Aspirin | [facility] | + + + + | 2022-08-05 00:00 | Aspirin | [facility] | + + + + | 2022-08-13 00:00 | Aspirin | [facility] | + + + + | 2022-08-21 00:00 | Aspirin | [facility] | + + + + | 2022-08-31 00:00 | Aspirin | [facility] | + + + + | 2022-12-05 00:00 | Aspirin | [facility] | + + + + | 2021-07-19 00:00 | calcium carbonate 500 mg | [facility] | | | (equivalent to calcium 200 | [address] | | | mg) chewable tablet | | + + + + | 2021-07-28 00:00 | calcium carbonate 500 mg | [facility] | | | (equivalent to calcium 200 | Specialties | | | mg) chewable tablet | | + + + + | 2022-07-14 00:00 | CEFPODOXIME PROXETIL | [facility] | + + + + | 2021-08-15 00:00 | GABAPENTIN | [facility] | + + + + | 2021-11-14 00:00 | GABAPENTIN | [facility] | + + + + | 2021-12-03 00:00 | GABAPENTIN | [facility] | + + + + | 2021-12-30 00:00 | GABAPENTIN | [facility] | + + + + | 2022-01-12 00:00 | GABAPENTIN | [facility] | + + + + | 2022-02-02 00:00 | GABAPENTIN | [facility] | + + + + | 2022-02-06 00:00 | GABAPENTIN | [facility] | + + + + | 2022-02-09 00:00 | GABAPENTIN | [facility] | + + + + | 2022-02-19 00:00 | GABAPENTIN | [facility] | + + + + | 2022-02-28 00:00 | GABAPENTIN | [facility] | + + + + | 2022-04-12 00:00 | GABAPENTIN | [facility] | + + + + | 2022-04-19 00:00 | GABAPENTIN | [facility] | + + + + | 2022-06-08 00:00 | GABAPENTIN | [facility] | + + + + | 2022-06-16 00:00 | GABAPENTIN | [facility] | + + + + | 2022-06-19 00:00 | GABAPENTIN | [facility] | + + + + | 2022-07-08 00:00 | GABAPENTIN | [facility] | + + + + | 2022-07-11 00:00 | GABAPENTIN | [facility] | + + + + | 2022-07-14 00:00 | GABAPENTIN | [facility] | + + + + | 2022-07-22 00:00 | GABAPENTIN | [facility] | + + + + | 2022-07-24 00:00 | GABAPENTIN | [facility] | + + + + | 2022-07-27 00:00 | GABAPENTIN | [facility] | + + + + | 2022-07-29 00:00 | GABAPENTIN | [facility] | + + + + | 2022-07-31 00:00 | GABAPENTIN | [facility] | + + + + | 2022-08-05 00:00 | GABAPENTIN | [facility] | + + + + | 2022-08-13 00:00 | GABAPENTIN | [facility] | + + + + | 2022-08-21 00:00 | GABAPENTIN | [facility] | + + + + | 2022-08-31 00:00 | GABAPENTIN | [facility] | + + + + | 2022-12-05 00:00 | GABAPENTIN | [facility] | + + + + | 2021-07-30 [...] 00:00 | gemfibrozil 600 MG Oral | [facility] | | | Tablet | | + + + + | 2022-02-23 00:00 | gemfibrozil 600 MG Oral | [facility] | | | Tablet | | + + + + | 2021-07-24 00:00 | glucagon (rdna) 1 mg | [facility] | | | injection | Care [address] Floor | + + + + | 2021-10-05 00:00 | insulin aspart 100 unt/ml | [facility] | | | injectable solution | [address] | + + + + | 2022-07-31 00:00 | LEVOFLOXACIN | [facility] | + + + + | 2022-07-31 00:00 | LEVOFLOXACIN | [facility] | + + + + | 2022-07-31 00:00 | LEVOFLOXACIN | [facility] | + + + + | 2021-10-05 00:00 | 2 ml metoclopramide 5 | [facility] | | | mg/ml injection | [address] | + + + + | 2022-02-02 00:00 | ONDANSETRON | [facility] | + + + + | 2022-02-02 00:00 | ONDANSETRON | [facility] | + + + + | 2022-02-19 00:00 | ONDANSETRON | [facility] | + + + + | 2022-02-19 00:00 | ONDANSETRON | [facility] | + + + + | 2022-06-19 00:00 | ONDANSETRON | [facility] | + + + + | 2022-06-19 00:00 | ONDANSETRON | [facility] | + + + + | 2022-06-19 00:00 | ONDANSETRON | [facility] | + + + + | 2022-06-19 00:00 | ONDANSETRON | [facility] | + + + + | 2022-07-29 00:00 | ONDANSETRON | [facility] | + + + + | 2022-02-06 00:00 | PIOGLITAZONE HCL | [facility] | + + + + | 2022-02-09 00:00 | PIOGLITAZONE HCL | [facility] | + + + + | 2022-02-19 00:00 | PIOGLITAZONE HCL | [facility] | + + + + | 2022-02-28 00:00 | PIOGLITAZONE HCL | [facility] | + + + + | 2022-04-12 00:00 | PIOGLITAZONE HCL | [facility] | + + + + | 2022-04-19 00:00 | PIOGLITAZONE HCL | [facility] | + + + + | 2022-06-08 00:00 | PIOGLITAZONE HCL | [facility] | + + + + | 2022-06-16 00:00 | PIOGLITAZONE HCL | [facility] | + + + + | 2022-06-19 00:00 | PIOGLITAZONE HCL | [facility] | + + + + | 2022-07-08 00:00 | PIOGLITAZONE HCL | [facility] | + + + + | 2022-07-11 00:00 | PIOGLITAZONE HCL | [facility] | + + + + | 2022-07-14 00:00 | PIOGLITAZONE HCL | [facility] | + + + + | 2022-07-22 00:00 | PIOGLITAZONE HCL | [facility] | + + + + | 2022-07-24 00:00 | PIOGLITAZONE HCL | [facility] | + + + + | 2022-07-27 00:00 | PIOGLITAZONE HCL | [facility] | + + + + | 2022-07-29 00:00 | PIOGLITAZONE HCL | [facility] | + + + + | 2022-07-31 00:00 | PIOGLITAZONE HCL | [facility] | + + + + | 2022-08-05 00:00 | PIOGLITAZONE HCL | [facility] | + + + + | 2022-08-13 00:00 | PIOGLITAZONE HCL | [facility] | + + + + | 2022-08-21 00:00 | PIOGLITAZONE HCL | [facility] | + + + + | 2022-08-31 00:00 | PIOGLITAZONE HCL | [facility] | + + + + | 2022-12-05 00:00 | PIOGLITAZONE HCL | [facility] | + + + + | 2020-05-19 00:00 | pioglitazone 30 MG Oral | [facility] | | | Tablet | | + + + + | 2021-02-12 00:00 | pioglitazone 30 MG Oral | [facility] | | | Tablet | | + + + + | 2021-02-24 00:00 | pioglitazone 30 MG Oral | [facility] | | | Tablet | | + + + + | 2021-12-11 00:00 | prazosin 2 MG Oral Capsule | [facility] | | | | | + + + + | 2021-08-15 00:00 | QUETIAPINE FUMARATE | [facility] | + + + + | 2021-11-14 00:00 | QUETIAPINE FUMARATE | [facility] | + + + + | 2021-12-03 00:00 | QUETIAPINE FUMARATE | [facility] | + + + + | 2021-12-30 00:00 | QUETIAPINE FUMARATE | [facility] | + + + + | 2022-01-12 00:00 | QUETIAPINE FUMARATE | [facility] | + + + + | 2022-02-02 00:00 | QUETIAPINE FUMARATE | [facility] | + + + + | 2022-02-06 00:00 | QUETIAPINE FUMARATE | [facility] | + + + + | 2022-02-09 00:00 | QUETIAPINE FUMARATE | [facility] | + + + + | 2022-02-19 00:00 | QUETIAPINE FUMARATE | [facility] | + + + + | 2022-02-28 00:00 | QUETIAPINE FUMARATE | [facility] | + + + + | 2022-04-12 00:00 | QUETIAPINE FUMARATE | [facility] | + + + + | 2022-04-19 00:00 | QUETIAPINE FUMARATE | [facility] | + + + + | 2022-06-08 00:00 | QUETIAPINE FUMARATE | [facility] | + + + + | 2022-06-16 00:00 | QUETIAPINE FUMARATE | [facility] | + + + + | 2022-06-19 00:00 | QUETIAPINE FUMARATE | [facility] | + + + + | 2022-07-08 00:00 | QUETIAPINE FUMARATE | [facility] | + + + + | 2022-07-11 00:00 | QUETIAPINE FUMARATE | [facility] | + + + + | 2022-07-14 00:00 | QUETIAPINE FUMARATE | [facility] | + + + + | 2022-07-22 00:00 | QUETIAPINE FUMARATE | [facility] | + + + + | 2022-07-24 00:00 | QUETIAPINE FUMARATE | [facility] | + + + + | 2022-07-27 00:00 | QUETIAPINE FUMARATE | [facility] | + + + + | 2022-07-29 00:00 | QUETIAPINE FUMARATE | [facility] | + + + + | 2022-07-31 00:00 | QUETIAPINE FUMARATE | [facility] | + + + + | 2022-08-05 00:00 | QUETIAPINE FUMARATE | [facility] | + + + + | 2022-08-13 00:00 | QUETIAPINE FUMARATE | [facility] | + + + + | 2022-08-21 00:00 | QUETIAPINE FUMARATE | [facility] | + + + + | 2022-08-31 00:00 | QUETIAPINE FUMARATE | [facility] | + + + + | 2022-12-05 00:00 | QUETIAPINE FUMARATE | [facility] | + + + + | 2021-03-18 00:00 | quetiapine (as quetiapine | [facility] | | | fumarate) 100 mg [...] 2021-07-27 00:00 | quetiapine (as quetiapine | [facility] | | | fumarate) 100 mg oral | [address] | | | tablet | | + + + + | 2021-02-12 00:00 | quetiapine 25 MG Oral | [facility] | | | Tablet | | + + + + | 2021-07-29 00:00 | quetiapine 25 mg oral | [facility] | | | tablet | Specialties | + + + + | 2021-07-20 00:00 | sennosides, shelter 8.6 mg | [facility] | | | oral tablet | [address] | + + + + | 2021-07-25 00:00 | sennosides, shelter 8.6 mg | [facility] | | | oral tablet | [address] | + + + + | 2021-07-29 00:00 | sennosides, shelter 8.6 mg | [facility] | | | oral tablet | Specialties | + + + + | 2021-06-18 00:00 | sumatriptan 50 mg oral | [facility] | | | tablet | | + + + + | 2021-06-18 00:00 | sumatriptan 50 mg oral | [facility] | | | tablet | Care [address] Floor | + + + + | 2021-07-24 00:00 | acetaminophen 325 mg oral | [facility] | | | tablet | [facility] | + + + + | 2021-08-15 00:00 | METRONIDAZOLE | [facility] | + + + + | 2022-07-11 00:00 | SUCRALFATE | [facility] | + + + + | 2022-07-11 00:00 | SUCRALFATE | [facility] | + + + + | 2022-07-11 00:00 | SUCRALFATE | [facility] | + + + + | 2022-02-06 00:00 | QUETIAPINE FUMARATE | [facility] | + + + + | 2022-02-09 00:00 | QUETIAPINE FUMARATE | [facility] | + + + + | 2022-02-19 00:00 | QUETIAPINE FUMARATE | [facility] | + + + + | 2022-02-28 00:00 | QUETIAPINE FUMARATE | [facility] | + + + + | 2022-04-12 00:00 | QUETIAPINE FUMARATE | [facility] | + + + + | 2022-04-19 00:00 | QUETIAPINE FUMARATE | [facility] | + + + + | 2022-06-08 00:00 | QUETIAPINE FUMARATE | [facility] | + + + + | 2022-06-16 00:00 | QUETIAPINE FUMARATE | [facility] | + + + + | 2022-06-19 00:00 | QUETIAPINE FUMARATE | [facility] | + + + + | 2022-07-08 00:00 | QUETIAPINE FUMARATE | [facility] | + + + + | 2022-07-11 00:00 | QUETIAPINE FUMARATE | [facility] | + + + + | 2022-07-14 00:00 | QUETIAPINE FUMARATE | [facility] | + + + + | 2022-07-22 00:00 | QUETIAPINE FUMARATE | [facility] | + + + + | 2022-07-24 00:00 | QUETIAPINE FUMARATE | [facility] | + + + + | 2022-07-27 00:00 | QUETIAPINE FUMARATE | [facility] | + + + + | 2022-07-29 00:00 | QUETIAPINE FUMARATE | [facility] | + + + + | 2022-07-31 00:00 | QUETIAPINE FUMARATE | [facility] | + + + + | 2022-08-05 00:00 | QUETIAPINE FUMARATE | [facility] | + + + + | 2022-08-13 00:00 | QUETIAPINE FUMARATE | [facility] | + + + + | 2022-08-21 00:00 | QUETIAPINE FUMARATE | [facility] | + + + + | 2022-08-31 00:00 | QUETIAPINE FUMARATE | [facility] | + + + + | 2022-12-05 00:00 | QUETIAPINE FUMARATE | [facility] | + + + + | 2020-01-21 00:00 | quetiapine 200 MG Oral | [facility] | | | Tablet | | + + + + | 2021-04-15 00:00 | asa 81 mg chewable tablet | [facility] | + + + + | 2021-04-15 [...] | metFORMIN HCl 850 MG Oral | [facility] | | | Tablet | | + + + + | 2020-02-25 00:00 | metFORMIN HCl 850 MG Oral | [facility] | | | Tablet | | + + + + | 2021-02-12 00:00 | metFORMIN HCl 850 MG Oral | [facility] | | | Tablet | | + + + + | 2022-08-31 00:00 | OMEPRAZOLE MAGNESIUM | [facility] | + + + + | 2022-08-31 00:00 | OMEPRAZOLE MAGNESIUM | [facility] | + + + + | 2021-11-14 00:00 | OMEPRAZOLE | [facility] | + + + + | 2021-12-03 00:00 | OMEPRAZOLE | [facility] | + + + + | 2021-12-30 00:00 | OMEPRAZOLE | [facility] | + + + + | 2022-01-12 00:00 | OMEPRAZOLE | [facility] | + + + + | 2022-02-02 00:00 | OMEPRAZOLE | [facility] | + + + + | 2022-02-06 00:00 | OMEPRAZOLE | [facility] | + + + + | 2022-02-09 00:00 | OMEPRAZOLE | [facility] | + + + + | 2022-02-19 00:00 | OMEPRAZOLE | [facility] | + + + + | 2022-02-28 00:00 | OMEPRAZOLE | [facility] | + + + + | 2022-04-12 00:00 | OMEPRAZOLE | [facility] | + + + + | 2022-04-19 00:00 | OMEPRAZOLE | [facility] | + + + + | 2022-06-08 00:00 | OMEPRAZOLE | [facility] | + + + + | 2022-06-16 00:00 | OMEPRAZOLE | [facility] | + + + + | 2022-06-19 00:00 | OMEPRAZOLE | [facility] | + + + + | 2022-07-08 00:00 | OMEPRAZOLE | [facility] | + + + + | 2022-07-11 00:00 | OMEPRAZOLE | [facility] | + + + + | 2022-07-14 00:00 | OMEPRAZOLE | [facility] | + + + + | 2022-07-22 00:00 | OMEPRAZOLE | [facility] | + + + + | 2022-07-24 00:00 | OMEPRAZOLE | [facility] | + + + + | 2022-07-27 00:00 | OMEPRAZOLE | [facility] | + + + + | 2022-07-29 00:00 | OMEPRAZOLE | [facility] | + + + + | 2022-07-31 00:00 | OMEPRAZOLE | [facility] | + + + + | 2022-08-05 00:00 | OMEPRAZOLE | [facility] | + + + + | 2022-08-13 00:00 | OMEPRAZOLE | [facility] | + + + + | 2022-08-21 00:00 | OMEPRAZOLE | [facility] | + + + + | 2022-08-31 00:00 | OMEPRAZOLE | [facility] | + + + + | 2022-12-05 00:00 | OMEPRAZOLE | [facility] | + + + + | 2021-10-05 00:00 | Drug or medicament | [facility] | | | (substance) | | + + + + | 2021-02-12 00:00 | Albuterol Sulfate HFA 108 | [facility] | | | (90 Base) MCG/ACT | | | | Inhalation Aerosol Solution | | | | | | + + + + | 2020-07-16 00:00 | Topamax 100 MG Oral Tablet | [facility] | | | | | + + + + | 2020-01-21 00:00 | Topiramate 25 MG Oral | [facility] | | | Tablet | | + + + + | 2020-02-13 00:00 | Fluzone | [facility] | | | | | + + + + | 2020-12-17 00:00 | Meloxicam 15 MG Oral | [facility] | | | Tablet | | + + + + | 2020-12-30 00:00 | Meloxicam 15 MG Oral | [facility] | | | Tablet | | + + + + | 2021-02-12 00:00 | QUEtiapine Fumarate 25 MG | [facility] | | | Oral Tablet | | + + + + | 2020-01-21 00:00 | QUEtiapine Fumarate 200 MG | [facility] | | | Oral Tablet | | + + + + | 2021-03-16 00:00 | SEROquel 100 MG Oral | [facility] | | | Tablet | | + + + + | 2022-07-08 00:00 | NITROFURANTOIN MONOHYD | [facility] | | | MACROCR | | + + + + | 2022-07-08 00:00 | NITROFURANTOIN MONOHYD | [facility] | | | MACROCR | | + + + + | 2022-07-08 00:00 | NITROFURANTOIN MONOHYD | [facility] | | | MACROCR | | + + + + | 2022-07-08 00:00 | NITROFURANTOIN MONOHYD | [facility] | | | MACROCR | | + + + + | 2021-07-23 00:00 | citric acid 334 mg / | [facility] | | | sodium citrate 500 mg in 5 | Care 7th Floor | | | ml oral solution | | + + + + | 2022-04-12 00:00 | AMOXICILLIN/POTASSIUM CLAV | [facility] | | | | | + + + + | 2022-04-12 00:00 | AMOXICILLIN/POTASSIUM CLAV | [facility] | | | | | + + [...] | 2021-11-14 00:00 | INSULIN DETEMIR | [facility] | + + + + | 2021-12-03 00:00 | INSULIN DETEMIR | [facility] | + + + + | 2021-12-30 00:00 | INSULIN DETEMIR | [facility] | + + + + | 2022-01-12 00:00 | INSULIN DETEMIR | [facility] | + + + + | 2022-02-02 00:00 | INSULIN DETEMIR | [facility] | + + + + | 2022-02-06 00:00 | INSULIN DETEMIR | [facility] | + + + + | 2022-02-09 00:00 | INSULIN DETEMIR | [facility] | + + + + | 2022-02-19 00:00 | INSULIN DETEMIR | [facility] | + + + + 2022-02-28 00:00 | INSULIN DETEMIR | [facility] | + + + + | 2022-04-12 00:00 | INSULIN DETEMIR | [facility] | + + + + | 2022-04-19 00:00 | INSULIN DETEMIR | [facility] | + + + + | 2022-06-08 00:00 | INSULIN DETEMIR | [facility] | + + + + | 2022-06-16 00:00 | INSULIN DETEMIR | [facility] | + + + + | 2022-06-19 00:00 | INSULIN DETEMIR | [facility] | + + + + | 2022-07-08 00:00 | INSULIN DETEMIR | [facility] | + + + + | 2022-07-11 00:00 | INSULIN DETEMIR | [facility] | + + + + | 2022-07-14 00:00 | INSULIN DETEMIR | [facility] | + + + + | 2022-07-22 00:00 | INSULIN DETEMIR | [facility] | + + + + | 2022-07-24 00:00 | INSULIN DETEMIR | [facility] | + + + + | 2022-07-27 00:00 | INSULIN DETEMIR | [facility] | + + + + | 2022-07-29 00:00 | INSULIN DETEMIR | [facility] | + + + + | 2022-07-31 00:00 | INSULIN DETEMIR | [facility] | + + + + | 2022-08-05 00:00 | INSULIN DETEMIR | [facility] | + + + + | 2022-08-13 00:00 | INSULIN DETEMIR | [facility] | + + + + | 2022-08-21 00:00 | INSULIN DETEMIR | [facility] | + + + + | 2022-08-31 00:00 | INSULIN DETEMIR | [facility] | + + + + | 2022-12-05 00:00 | INSULIN DETEMIR | [facility] | + + + + | 2021-08-15 00:00 | NYSTATIN | [facility] | + + + + | 2021-11-14 00:00 | NYSTATIN | [facility] | + + + + | 2021-12-03 00:00 | NYSTATIN | [facility] | + + + + | 2021-12-30 00:00 | NYSTATIN | [facility] | + + + + | 2022-01-12 00:00 | NYSTATIN | [facility] | + + + + | 2022-02-02 00:00 | NYSTATIN | [facility] | + + + + | 2022-02-06 00:00 | NYSTATIN | [facility] | + + + + | 2022-02-09 00:00 | NYSTATIN | [facility] | + + + + | 2022-02-19 00:00 | NYSTATIN | [facility] | + + + + | 2022-02-28 00:00 | NYSTATIN | [facility] | + + + + | 2022-04-12 00:00 | NYSTATIN | [facility] | + + + + | 2022-04-19 00:00 | NYSTATIN | [facility] | + + + + | 2022-06-08 00:00 | NYSTATIN | [facility] | + + + + | 2022-06-16 00:00 | NYSTATIN | [facility] | + + + + | 2022-06-19 00:00 | NYSTATIN | [facility] | + + + + | 2022-07-08 00:00 | NYSTATIN | [facility] | + + + + | 2022-07-11 00:00 | NYSTATIN | [facility] | + + + + | 2022-07-14 00:00 | NYSTATIN | [facility] | + + + + | 2022-07-22 00:00 | NYSTATIN | [facility] | + + + + | 2022-07-24 00:00 | NYSTATIN | [facility] | + + + + | 2022-07-27 00:00 | NYSTATIN | [facility] | + + + + | 2022-07-29 00:00 | NYSTATIN | [facility] | + + + + | 2022-07-31 00:00 | NYSTATIN | [facility] | + + + + | 2022-08-05 00:00 | NYSTATIN | [facility] | + + + + | 2022-08-13 00:00 | NYSTATIN | [facility] | + + + + | 2022-08-21 00:00 | NYSTATIN | [facility] | + + + + | 2022-08-31 00:00 | NYSTATIN | [facility] | + + + + | 2022-12-05 00:00 | NYSTATIN | [facility] | + + + + | 2021-07-21 [...] 00:00 | Omeprazole 20 MG Oral | [facility] | | | Capsule Delayed Release | | + + + + | 2021-02-24 00:00 | Omeprazole 20 MG Oral | [facility] | | | Capsule Delayed Release | | + + + + | 2021-06-08 00:00 | Omeprazole 20 MG Oral | [facility] | | | Capsule Delayed Release | | + + + + | 2020-01-25 00:00 | Ondansetron 4 MG Oral | [facility] | | | Tablet [...] + + + | 2022-02-12 00:00 | Lucas 5-325 MG Oral Tablet | [facility] | | | | | + + + + | 2021-07-24 00:00 | dextrose 50 % in 50 ml | [facility] | | | prefilled syringe | Care 7th Floor | + + + + | 2021-07-28 00:00 | dextrose 50 % in 50 ml | [facility] | | | prefilled syringe | Specialties | + + + + | 2021-10-05 00:00 | [id number] 200 actuat | [facility] | | | albuterol 0.09 mg/actuat | | | | metered dose inhaler | | | | [proventil] | | + + + + | 2021-10-05 00:00 | [id number] 200 actuat | [facility] | | | albuterol 0.09 mg/actuat | [facility] 7th Floor | | | metered dose inhaler | | | | [proventil] | | + + + + | 2020-07-16 00:00 | {7 (ethinyl estradiol 0.025 | [facility] | | | MG [...] + | 2021-08-15 00:00 | FENOFIBRATE | [facility] | + + + + | 2021-08-15 00:00 | FENOFIBRATE | [facility] | + + + + | 2021-08-15 00:00 | FENOFIBRATE | [facility] | + + + + | 2021-08-15 00:00 | FENOFIBRATE | [facility] | + + + + | 2021-11-14 00:00 | FENOFIBRATE | [facility] | + + + + | 2021-12-03 00:00 | FENOFIBRATE | [facility] | + + + + | 2021-12-30 00:00 | FENOFIBRATE | [facility] | + + + + | 2022-01-12 00:00 | FENOFIBRATE | [facility] | + + + + | 2022-02-02 00:00 | FENOFIBRATE | [facility] | + + + + | 2022-02-06 00:00 | FENOFIBRATE | [facility] | + + + + | 2022-02-09 00:00 | FENOFIBRATE | [facility] | + + + + | 2022-02-19 00:00 | FENOFIBRATE | [facility] | + + + + | 2022-02-28 00:00 | FENOFIBRATE | [facility] | + + + + | 2022-04-12 00:00 | FENOFIBRATE | [facility] | + + + + | 2022-04-19 00:00 | FENOFIBRATE | [facility] | + + + + | 2022-06-08 00:00 | FENOFIBRATE | [facility] | + + + + | 2022-06-16 00:00 | FENOFIBRATE | [facility] | + + + + | 2022-06-19 00:00 | FENOFIBRATE | [facility] | + + + + | 2022-07-08 00:00 | FENOFIBRATE | [facility] | + + + + | 2022-07-11 00:00 | FENOFIBRATE | [facility] | + + + + | 2022-07-14 00:00 | FENOFIBRATE | [facility] | + + + + | 2022-07-22 00:00 | FENOFIBRATE | [facility] | + + + + | 2022-07-24 00:00 | FENOFIBRATE | [facility] | + + + + | 2022-07-27 00:00 | FENOFIBRATE | [facility] | + + + + | 2022-07-29 00:00 | FENOFIBRATE | [facility] | + + + + | 2022-07-31 00:00 | FENOFIBRATE | [facility] | + + + + | 2022-08-05 00:00 | FENOFIBRATE | [facility] | + + + + | 2022-08-13 00:00 | FENOFIBRATE | [facility] | + + + + | 2022-08-21 00:00 | FENOFIBRATE | [facility] | + + + + | 2022-08-31 00:00 | FENOFIBRATE | [facility] | + + + + | 2022-12-05 00:00 | FENOFIBRATE | [facility] | + + + + | 2020-04-24 00:00 | fenofibrate 120 MG Oral | [facility] | | | Tablet | | + + + + | 2021-02-12 00:00 | fenofibrate 120 MG Oral | [facility] | | | Tablet | | + + + + | 2021-09-21 00:00 | fenofibrate 120 MG Oral | [facility] | | | Tablet | | + + + + | 2021-06-20 00:00 | fenofibrate 120 mg oral | [facility] | | | tablet | | [...] | MiraLax 17 GM Oral Packet | [facility] | | | | | + + + + | 2020-12-30 00:00 | Ventolin HFA 108 (90 Base) | [facility] | | | [...] 2020-07-16 00:00 | Ortho Tri-Cyclen Lo | [facility] | | | 0.18/0.215/0.25 MG-25 MCG | | | | Oral Tablet | | + + + + | 2020-04-28 00:00 | {11 (varenicline 0.5 MG | [facility] | | | Oral Tablet [Chantix]) / 42 | | | | (varenicline 1 MG Oral | | | | Tablet [Chantix]) } Pack | | | | [Chantix First Month of | | | | Therapy] | | + + + + | 2021-09-21 00:00 | {11 (varenicline 0.5 MG | [facility] | | | Oral Tablet [Chantix]) / 42 | | | | (varenicline 1 MG Oral | | | | Tablet [Chantix]) } Pack | | | | [Chantix First Month of | | | | Therapy] | | + + + + | 2020-12-03 00:00 | HYDROcodone-Acetaminophen | [facility] | | | 5-325 MG Oral Tablet | | + + + + | 2022-02-23 00:00 | HYDROcodone-Acetaminophen | [facility] | | | 5-325 MG Oral Tablet | | + + + + | 2021-02-12 00:00 | [id number] ACTUAT | [facility] | | | albuterol 0.09 MG/ACTUAT | | | | Metered Dose Inhaler | | + + + + | 2021-09-21 00:00 | Rosuvastatin Calcium 20 MG | [facility] | | | Oral Tablet | | + + + + | 2020-01-08 00:00 | Rosuvastatin Calcium 40 MG | [facility] | | | Oral Tablet | | + + + + | 2021-02-12 00:00 | Rosuvastatin Calcium 40 MG | [facility] | | | Oral Tablet | | + + + + | 2021-03-16 00:00 | Cyclobenzaprine HCl 5 MG | [facility] | | | Oral Tablet | | + + + + | 2021-12-18 00:00 | Cyclobenzaprine HCl 5 MG | [facility] | | | Oral Tablet | | + + + + | 2021-11-11 00:00 | Systane 0.4-0.3% | [facility] | | | Ophthalmic Solution | | + + + + | 2021-08-15 00:00 | CYCLOBENZAPRINE HCL | [facility] | + + + + | 2021-11-14 00:00 | CYCLOBENZAPRINE HCL | [facility] | + + + + | 2021-12-03 00:00 | CYCLOBENZAPRINE HCL | [facility] | + + + + | 2021-12-30 00:00 | CYCLOBENZAPRINE HCL | [facility] | + + + + | 2022-01-12 00:00 | CYCLOBENZAPRINE HCL | [facility] | + + + + | 2022-02-02 00:00 | CYCLOBENZAPRINE HCL | [facility] | + + + + | 2022-02-06 00:00 | CYCLOBENZAPRINE HCL | [facility] | + + + + | 2022-02-09 00:00 | CYCLOBENZAPRINE HCL | [facility] | + + + + | 2022-02-19 00:00 | CYCLOBENZAPRINE HCL | [facility] | + + + + | 2022-02-28 00:00 | CYCLOBENZAPRINE HCL | [facility] | + + + + | 2022-04-12 00:00 | CYCLOBENZAPRINE HCL | [facility] | + + + + | 2022-04-19 00:00 | CYCLOBENZAPRINE HCL | [facility] | + + + + | 2022-06-08 00:00 | CYCLOBENZAPRINE HCL | [facility] | + + + + | 2022-06-16 00:00 | CYCLOBENZAPRINE HCL | [facility] | + + + + | 2022-06-19 00:00 | CYCLOBENZAPRINE HCL | [facility] | + + + + | 2022-07-08 00:00 | CYCLOBENZAPRINE HCL | [facility] | + + + + | 2022-07-11 00:00 | CYCLOBENZAPRINE HCL | [facility] | + + + + | 2022-07-14 00:00 | CYCLOBENZAPRINE HCL | [facility] | + + + + | 2022-07-22 00:00 | CYCLOBENZAPRINE HCL | [facility] | + + + + | 2022-07-24 00:00 | CYCLOBENZAPRINE HCL | [facility] | + + + + | 2022-07-27 00:00 | CYCLOBENZAPRINE HCL | [facility] | + + + + | 2022-07-29 00:00 | CYCLOBENZAPRINE HCL | [facility] | + + + + | 2022-07-31 00:00 | CYCLOBENZAPRINE HCL | [facility] | + + + + | 2022-08-05 00:00 | CYCLOBENZAPRINE HCL | [facility] | + + + + | 2022-08-13 00:00 | CYCLOBENZAPRINE HCL | [facility] | + + + + | 2022-08-21 00:00 | CYCLOBENZAPRINE HCL | [facility] | + + + + | 2022-08-31 00:00 | CYCLOBENZAPRINE HCL | [facility] | + + + + | 2022-12-05 00:00 | CYCLOBENZAPRINE HCL | [facility] | + + + + | 2021-03-16 00:00 | cyclobenzaprine | [facility] | | | hydrochloride 5 MG Oral | | | | Tablet | | + + + + | 2021-12-18 00:00 | cyclobenzaprine | [facility] | | | hydrochloride 5 MG Oral | | | | Tablet | | + + + + | 2021-03-30 00:00 | cyclobenzaprine | [facility] | | | hydrochloride 5 mg [...] | 2022-02-06 00:00 | CHLORHEXIDINE GLUCONATE | [facility] | + + + + | 2022-02-09 00:00 | CHLORHEXIDINE GLUCONATE | [facility] | + + + + | 2022-02-19 00:00 | CHLORHEXIDINE GLUCONATE | [facility] | + + + + | 2022-02-28 00:00 | CHLORHEXIDINE GLUCONATE | [facility] | + + + + | 2022-04-12 00:00 | CHLORHEXIDINE GLUCONATE | [facility] | + + + + | 2022-04-19 00:00 | CHLORHEXIDINE GLUCONATE | [facility] | + + + + | 2022-06-08 00:00 | CHLORHEXIDINE GLUCONATE | [facility] | + + + + | 2022-02-08 00:00 | TRAMADOL HCL | [facility] | + + + + | 2022-02-08 00:00 | TRAMADOL HCL | [facility] | + + + + | 2021-07-19 [...] 00:00 | 3 ml insulin analog, | [facility] | | | glargine 100 [...] | 3 ML insulin glargine 100 | [facility] | | | UNT/ML Pen Injector | | | | [Lantus] | | + + + + | 2021-02-12 00:00 | 3 ML insulin glargine 100 | [facility] | | | UNT/ML Pen Injector | | | | [Lantus] | | + + + + | 2021-11-16 00:00 | 3 ML insulin glargine 100 | [facility] | | | UNT/ML Pen Injector | | | | [Lantus] | | + + + + | 2021-08-15 00:00 | INSULIN | [facility] | | | GLARICKE,HUM.REC.ANLOG | | + + + + | 2021-11-14 00:00 | INSULIN | [facility] | | | GLAKIN,HUM.REC.ANLOG | | + + + + | 2021-12-03 00:00 | INSULIN | [facility] | | | GLARNAME,HUM.REC.ANLOG | | + + + + | 2021-12-30 00:00 | INSULIN | [facility] | | | GLARGINE,HUM.REC.ANLOG | | + + + + | 2022-01-12 00:00 | INSULIN | [facility] | | | GLARGINE,[facility].REC.ANLOG | | + + + + | 2022-02-02 00:00 | INSULIN | [facility] | | | GLARGINArelis,[facility].REC.ANLOG | | + + + + | 2022-02-06 00:00 | INSULIN | [facility] | | | GLARBRIGHT,[facility].REC.ANLOG | | + + + + | 2022-02-09 00:00 | INSULIN | [facility] | | | GLARNAMEHUM.REC.ANLOG | | + + + + | 2022-02-19 00:00 | INSULIN | [facility] | | | GLAHUM. KINRECPurnimaANLOG | | + + + + | 2022-02-28 00:00 | INSULIN | [facility] | | | REA BRAVO.RECPurnimaANLOG | | + + + + | 2022-04-12 00:00 | INSULIN | [facility] | | | LAWRENCEHUM.RECPurnimaANLOG | | + + + + | 2022-04-19 00:00 | INSULIN | [facility] | | | GLAKINHUM.RECPurnimaANLOG | | + + + + | 2022-06-08 00:00 | INSULIN | [facility] | | | GLARGINE,HUM.REC.ANLOG | | + + + + | 2022-06-16 00:00 | INSULIN | [facility] | | | GLARGINE,HUM.REC.ANLOG | | + + + + | 2022-06-19 00:00 | INSULIN | [facility] | | | GLARGINE,HUM.REC.ANLOG | | + + + + | 2022-07-08 00:00 | INSULIN | [facility] | | | GLARGINE,HUM.REC.ANLOG | | + + + + | 2022-07-11 00:00 | INSULIN | [facility] | | | GLARGINE,HUM.REC.ANLOG | | + + + + | 2022-07-14 00:00 | INSULIN | [facility] | | | GLARICKE,HUM.REC.ANLOG | | + + + + | 2022-07-22 00:00 | INSULIN | [facility] | | | GLARICKE,HUM.REC.ANLOG | | + + + + | 2022-07-24 00:00 | INSULIN | [facility] | | | GLARNAME,HUM.REC.ANLOG | | + + + + | 2022-07-27 00:00 | INSULIN | [facility] | | | GLARGINE,HUM.REC.ANLOG | | + + + + | 2022-07-29 00:00 | INSULIN | [facility] | | | [facility].RECP[facility]LOG | | + + + + | 2022-07-31 00:00 | INSULIN | [facility] | | | LAWRENCESANT[facility]ENTERPurnimaRECPurnimaANLOG | | + + + + | 2022-08-05 00:00 | INSULIN | [facility] | | | [facility]ENTERPurnimaRECPurnimaANLOG | | + + + + | 2022-08-13 00:00 | INSULIN | [facility] | | | HUM. LAWRENCERECPurnimaANLOG | | + + + + | 2022-08-21 00:00 | INSULIN | [facility] | | | GLAKINHUM.REC.ANLOG | | + + + + | 2022-08-31 00:00 | INSULIN | [facility] | | | GLAIrenaGINEHUM.REC.ANLOG | | + + + + | 2022-12-05 00:00 | INSULIN | [facility] | | | GLAKINHUM.REC.ANLOG | | + + + + | 2021-02-12 00:00 | lantus 300 unt per 3 ml | [facility] | | | solostar pen | [...] | 3 ML insulin detemir 100 | [facility] | | | UNT/ML [...] meq/ml / k+ chloride 0.004 | [facility] | | | meq/ml / nacl 0.103 meq/ml | | | | / sodium lactate 0.028 | | | | meq/ml injectable solution | | + + + + | 2021-07-30 00:00 | calcium chloride 0.0014 | [facility] | | | meq/ml [...] + + | 2019-06-23 00:00 | | [facility] | | | SULFAMETHOXAZOLE/TRIMETHOPR | | | | IM DS | | + + + + | 2019-06-23 00:00 | | [facility] | | | SULFAMETHOXAZOLE/TRIMETHOPR | | | | IM DS | | + + + + | 2019-06-23 00:00 | | [facility] | | | SULFAMETHOXAZOLE/TRIMETHOPR | | | | IM DS | | + + + + | 2019-06-23 00:00 | | [facility] | | | SULFAMETHOXAZOLE/TRIMETHOPR | | | | IM DS | | + + + + | 2021-07-24 00:00 | enoxaparin sodium 40 mg in | [facility] | | | 0.4 ml prefilled syringe | Care 7th Floor | + + + + | 2021-07-19 00:00 | amylase 92572 unt / lipase | [facility] | | | 52597 unt / protease [id number] | Care 7[facility] Floor | | | unt delayed release oral | | | | capsule | | + + + + | 2021-07-27 00:00 | amylase 50676 unt / lipase | [facility] | | | 71740 unt / protease [id number] | Department | | | unt delayed release oral | | | | capsule | | + + + + | 2021-07-27 00:00 | amylase 88454 unt / lipase | [facility] | | | 05649 unt / protease [id number] | Specialties | | | unt delayed release oral | | | | capsule | | + + + + | 2021-07-27 00:00 | amylase 18491 unt / lipase | [facility] | | | 03129 unt / protease [id number] | Care 7[facility] Floor | | | unt delayed release oral | | | | capsule | | + + + + | 2021-07-29 00:00 | amylase 11586 unt / lipase | [facility] | | | 30316 unt / protease [id number] | Specialties | | | unt delayed [...] + | 2022-02-19 00:00 | HYDROCODONE | [facility] | | | BIT/ACETAMINOPHEN | | + + + + | 2022-07-24 00:00 | HYDROCODONE | [facility] | | | BIT/ACETAMINOPHEN | | + [...] MG | | | | Oral Tablet [Lucas] | | + + + + | 2022-04-19 00:00 | HYDROCODONE | [facility] | | | BIT/ACETAMINOPHEN | | + + + + | 2022-04-19 00:00 | HYDROCODONE | [facility] | | | BIT/ACETAMINOPHEN | | + + + + | 2022-07-29 00:00 | HYDROCODONE | [facility] | | | BIT/ACETAMINOPHEN | | + + + + | 2021-07-23 00:00 | terbutaline sulfate 1 mg | [facility] | | | in 1 ml injection | Care 7[facility] Floor | + + + + | 2021-08-15 00:00 | ALBUTEROL SULFATE | [facility] | + + + + | 2021-08-15 00:00 | ALBUTEROL SULFATE | [facility] | + + + + | 2021-08-15 00:00 | ALBUTEROL SULFATE | [facility] | + + + + | 2021-08-15 00:00 | ALBUTEROL SULFATE | [facility] | + + + + | 2021-11-14 00:00 | ALBUTEROL SULFATE | [facility] | + + + + | 2021-12-03 00:00 | ALBUTEROL SULFATE | [facility] | + + + + | 2021-12-30 00:00 | ALBUTEROL SULFATE | [facility] | + + + + | 2022-01-12 00:00 | ALBUTEROL SULFATE | [facility] | + + + + | 2022-02-02 00:00 | ALBUTEROL SULFATE | [facility] | + + + + | 2022-02-06 00:00 | ALBUTEROL SULFATE | [facility] | + + + + | 2022-02-09 00:00 | ALBUTEROL SULFATE | [facility] | + + + + | 2022-02-19 00:00 | ALBUTEROL SULFATE | [facility] | + + + + | 2022-02-28 00:00 | ALBUTEROL SULFATE | [facility] | + + + + | 2022-04-12 00:00 | ALBUTEROL SULFATE | [facility] | + + + + | 2022-04-19 00:00 | ALBUTEROL SULFATE | [facility] | + + + + | 2022-06-08 00:00 | ALBUTEROL SULFATE | [facility] | + + + + | 2022-06-16 00:00 | ALBUTEROL SULFATE | [facility] | + + + + | 2022-06-19 00:00 | ALBUTEROL SULFATE | [facility] | + + + + | 2022-07-08 00:00 | ALBUTEROL SULFATE | [facility] | + + + + | 2022-07-11 00:00 | ALBUTEROL SULFATE | [facility] | + + + + | 2022-07-14 00:00 | ALBUTEROL SULFATE | [facility] | + + + + | 2022-07-22 00:00 | ALBUTEROL SULFATE | [facility] | + + + + | 2022-07-24 00:00 | ALBUTEROL SULFATE | [facility] | + + + + | 2022-07-27 00:00 | ALBUTEROL SULFATE | [facility] | + + + + | 2022-07-29 00:00 | ALBUTEROL SULFATE | [facility] | + + + + | 2022-07-31 00:00 | ALBUTEROL SULFATE | [facility] | + + + + | 2022-08-05 00:00 | ALBUTEROL SULFATE | [facility] | + + + + | 2022-08-13 00:00 | ALBUTEROL SULFATE | [facility] | + + + + | 2022-08-21 00:00 | ALBUTEROL SULFATE | [facility] | + + + + | 2022-08-31 00:00 | ALBUTEROL SULFATE | [facility] | + + + + | 2022-12-05 00:00 | ALBUTEROL SULFATE | [facility] | + + + + | 2020-12-30 00:00 | [id number] 200 ACTUAT | [facility] | | | albuterol 0.09 MG/ACTUAT | | | | Metered Dose Inhaler | | | | [Ventolin] | | + + + + | 2020-01-08 00:00 | rosuvastatin calcium 40 MG | [facility] | | | Oral Tablet | | + + + + | 2021-02-12 00:00 | rosuvastatin calcium 40 MG | [facility] | | | Oral Tablet | | + + + + | 2021-11-14 00:00 | ROSUVASTATIN CALCIUM | [facility] | + + + + | 2021-12-03 00:00 | ROSUVASTATIN CALCIUM | [facility] | + + + + | 2021-12-30 00:00 | ROSUVASTATIN CALCIUM | [facility] | + + + + | 2022-01-12 00:00 | ROSUVASTATIN CALCIUM | [facility] | + + + + | 2022-02-02 00:00 | ROSUVASTATIN CALCIUM | [facility] | + + + + | 2022-02-06 00:00 | ROSUVASTATIN CALCIUM | [facility] | + + + + | 2022-02-09 00:00 | ROSUVASTATIN CALCIUM | [facility] | + + + + | 2022-02-19 00:00 | ROSUVASTATIN CALCIUM | [facility] | + + + + | 2022-02-28 00:00 | ROSUVASTATIN CALCIUM | [facility] | + + + + | 2022-04-12 00:00 | ROSUVASTATIN CALCIUM | [facility] | + + + + | 2022-04-19 00:00 | ROSUVASTATIN CALCIUM | [facility] | + + + + | 2022-06-08 00:00 | ROSUVASTATIN CALCIUM | [facility] | + + + + | 2022-06-16 00:00 | ROSUVASTATIN CALCIUM | [facility] | + + + + | 2022-06-19 00:00 | ROSUVASTATIN CALCIUM | [facility] | + + + + | 2022-07-08 00:00 | ROSUVASTATIN CALCIUM | [facility] | + + + + | 2022-07-11 00:00 | ROSUVASTATIN CALCIUM | [facility] | + + + + | 2022-07-14 00:00 | ROSUVASTATIN CALCIUM | [facility] | + + + + | 2022-07-22 00:00 | ROSUVASTATIN CALCIUM | [facility] | + + + + | 2022-07-24 00:00 | ROSUVASTATIN CALCIUM | [facility] | + + + + | 2022-07-27 00:00 | ROSUVASTATIN CALCIUM | [facility] | + + + + | 2022-07-29 00:00 | ROSUVASTATIN CALCIUM | [facility] | + + + + | 2022-07-31 00:00 | ROSUVASTATIN CALCIUM | [facility] | + + + + | 2022-08-05 00:00 | ROSUVASTATIN CALCIUM | [facility] | + + + + | 2022-08-13 00:00 | ROSUVASTATIN CALCIUM | [facility] | + + + + | 2022-08-21 00:00 | ROSUVASTATIN CALCIUM | [facility] | + + + + | 2022-08-31 00:00 | ROSUVASTATIN CALCIUM | [facility] | + + + + | 2022-12-05 00:00 | ROSUVASTATIN CALCIUM | [facility] | + + + + | 2022-02-06 00:00 | Rosuvastatin Calcium | [facility] | + + + + | 2022-02-09 00:00 | Rosuvastatin Calcium | [facility] | + + + + | 2022-02-19 00:00 | Rosuvastatin Calcium | [facility] | + + + + | 2022-02-28 00:00 | Rosuvastatin Calcium | [facility] | + + + + | 2022-04-12 00:00 | Rosuvastatin Calcium | [facility] | + + + + | 2022-04-19 00:00 | Rosuvastatin Calcium | [facility] | + + + + | 2022-06-08 00:00 | Rosuvastatin Calcium | [facility] | + + + + | 2022-06-16 00:00 | Rosuvastatin Calcium | [facility] | + + + + | 2022-06-19 00:00 | Rosuvastatin Calcium | [facility] | + + + + | 2022-07-08 00:00 | Rosuvastatin Calcium | [facility] | + + + + | 2022-07-11 00:00 | Rosuvastatin Calcium | [facility] | + + + + | 2022-07-14 00:00 | Rosuvastatin Calcium | [facility] | + + + + | 2022-07-22 00:00 | Rosuvastatin Calcium | [facility] | + + + + | 2022-07-24 00:00 | Rosuvastatin Calcium | [facility] | + + + + | 2022-07-27 00:00 | Rosuvastatin Calcium | [facility] | + + + + | 2022-07-29 00:00 | Rosuvastatin Calcium | [facility] | + + + + | 2022-07-31 00:00 | Rosuvastatin Calcium | [facility] | + + + + | 2022-08-05 00:00 | Rosuvastatin Calcium | [facility] | + + + + | 2022-08-13 00:00 | Rosuvastatin Calcium | [facility] | + + + + | 2022-08-21 00:00 | Rosuvastatin Calcium | [facility] | + + + + | 2022-08-31 00:00 | Rosuvastatin Calcium | [facility] | + + + + | 2022-12-05 00:00 | Rosuvastatin Calcium | [facility] | + + + + | 2021-09-21 00:00 | rosuvastatin calcium 20 MG | [facility] | | | Oral Tablet | | + + + + | 2021-09-21 00:00 | 24 HR metformin | [facility] | | | hydrochloride 500 MG | | | | Extended Release Oral | | | | Tablet | | + + + + | 2022-02-06 00:00 | METFORMIN HCL | [facility] | + + + + | 2022-02-09 00:00 | METFORMIN HCL | [facility] | + + + + | 2022-02-19 00:00 | METFORMIN HCL | [facility] | + + + + 2022-02-28 00:00 | METFORMIN HCL | [facility] | + + + + | 2022-04-12 00:00 | METFORMIN HCL | [facility] | + + + + | 2022-04-19 00:00 | METFORMIN HCL | [facility] | + + + + | 2022-06-08 00:00 | METFORMIN HCL | [facility] | + + + + | 2022-06-16 00:00 | METFORMIN HCL | [facility] | + + + + | 2022-06-19 00:00 | METFORMIN HCL | [facility] | + + + + | 2022-07-08 00:00 | METFORMIN HCL | [facility] | + + + + | 2022-07-11 00:00 | METFORMIN HCL | [facility] | + + + + | 2022-07-14 00:00 | METFORMIN HCL | [facility] | + + + + | 2022-07-22 00:00 | METFORMIN HCL | [facility] | + + + + | 2022-07-24 00:00 | METFORMIN HCL | [facility] | + + + + | 2022-07-27 00:00 | METFORMIN HCL | [facility] | + + + + | 2022-07-29 00:00 | METFORMIN HCL | [facility] | + + + + | 2022-07-31 00:00 | METFORMIN HCL | [facility] | + + + + | 2022-08-05 00:00 | METFORMIN HCL | [facility] | + + + + | 2022-08-13 00:00 | METFORMIN HCL | [facility] | + + + + | 2022-08-21 00:00 | METFORMIN HCL | [facility] | + + + + | 2022-08-31 00:00 | METFORMIN HCL | [facility] | + + + + | 2022-12-05 00:00 | METFORMIN HCL | [facility] | + + + + | 2021-08-15 00:00 | METFORMIN HCL | [facility] | + + + + | 2021-11-14 00:00 | METFORMIN HCL | [facility] | + + + + | 2021-12-03 00:00 | METFORMIN HCL | [facility] | + + + + | 2021-12-30 00:00 | METFORMIN HCL | [facility] | + + + + | 2022-01-12 00:00 | METFORMIN HCL | [facility] | + + + + | 2022-02-02 00:00 | METFORMIN HCL | [facility] | + + + + | 2022-02-06 00:00 | METFORMIN HCL | [facility] | + + + + | 2022-02-09 00:00 | METFORMIN HCL | [facility] | + + + + | 2022-02-19 00:00 | METFORMIN HCL | [facility] | + + + + | 2022-02-28 00:00 | METFORMIN HCL | [facility] | + + + + | 2022-04-12 00:00 | METFORMIN HCL | [facility] | + + + + | 2022-04-19 00:00 | METFORMIN HCL | [facility] | + + + + | 2022-06-08 00:00 | METFORMIN HCL | [facility] | + + + + | 2022-06-16 00:00 | METFORMIN HCL | [facility] | + + + + | 2022-06-19 00:00 | METFORMIN HCL | [facility] | + + + + | 2022-07-08 00:00 | METFORMIN HCL | [facility] | + + + + | 2022-07-11 00:00 | METFORMIN HCL | [facility] | + + + + | 2022-07-14 00:00 | METFORMIN HCL | [facility] | + + + + | 2022-07-22 00:00 | METFORMIN HCL | [facility] | + + + + | 2022-07-24 00:00 | METFORMIN HCL | [facility] | + + + + | 2022-07-27 00:00 | METFORMIN HCL | [facility] | + + + + | 2022-07-29 00:00 | METFORMIN HCL | [facility] | + + + + | 2022-07-31 00:00 | METFORMIN HCL | [facility] | + + + + | 2022-08-05 00:00 | METFORMIN HCL | [facility] | + + + + | 2022-08-13 00:00 | METFORMIN HCL | [facility] | + + + + | 2022-08-21 00:00 | METFORMIN HCL | [facility] | + + + + | 2022-08-31 00:00 | METFORMIN HCL | [facility] | + + + + | 2022-12-05 00:00 | METFORMIN HCL | [facility] | + + + + | 2021-07-27 [...] | 2021-04-30 00:00 | metformin hydrochloride | [facility] | | | 500 mg oral tablet | | + + + + | 2021-04-30 00:00 | metformin hydrochloride | [facility] | | | 500 mg oral tablet | [facility] | + + + + | 2021-07-24 00:00 | metformin hydrochloride | [facility] | | | 500 mg oral tablet | Care [facility] | + + + + | 2021-07-27 00:00 | metformin hydrochloride | [facility] | | | 500 mg oral tablet | Care 7th Floor | + + + + | 2021-07-29 00:00 | metformin hydrochloride | [facility] | | | 500 mg oral tablet | Specialties | + + + + | 2021-11-14 00:00 | METFORMIN HCL | [facility] | + + + + | 2021-12-03 00:00 | METFORMIN HCL | [facility] | + + + + | 2021-12-30 00:00 | METFORMIN HCL | [facility] | + + + + | 2022-01-12 00:00 | METFORMIN HCL | [facility] | + + + + | 2022-02-02 00:00 | METFORMIN HCL | [facility] | + + + + | 2022-02-06 00:00 | METFORMIN HCL | [facility] | + + + + | 2022-02-09 00:00 | METFORMIN HCL | [facility] | + + + + | 2022-02-19 00:00 | METFORMIN HCL | [facility] | + + + + | 2022-02-28 00:00 | METFORMIN HCL | [facility] | + + + + | 2022-04-12 00:00 | METFORMIN HCL | [facility] | + + + + | 2022-04-19 00:00 | METFORMIN HCL | [facility] | + + + + | 2022-06-08 00:00 | METFORMIN HCL | [facility] | + + + + | 2022-06-16 00:00 | METFORMIN HCL | [facility] | + + + + | 2022-06-19 00:00 | METFORMIN HCL | [facility] | + + + + | 2022-07-08 00:00 | METFORMIN HCL | [facility] | + + + + | 2022-07-11 00:00 | METFORMIN HCL | [facility] | + + + + | 2022-07-14 00:00 | METFORMIN HCL | [facility] | + + + + | 2022-07-22 00:00 | METFORMIN HCL | [facility] | + + + + | 2022-07-24 00:00 | METFORMIN HCL | [facility] | + + + + | 2022-07-27 00:00 | METFORMIN HCL | [facility] | + + + + | 2022-07-29 00:00 | METFORMIN HCL | [facility] | + + + + | 2022-07-31 00:00 | METFORMIN HCL | [facility] | + + + + | 2022-08-05 00:00 | METFORMIN HCL | [facility] | + + + + | 2022-08-13 00:00 | METFORMIN HCL | [facility] | + + + + | 2022-08-21 00:00 | METFORMIN HCL | [facility] | + + + + | 2022-08-31 00:00 | METFORMIN HCL | [facility] | + + + + | 2022-12-05 00:00 | METFORMIN HCL | [facility] | + + + + | 2020-01-25 00:00 | metformin hydrochloride | [facility] | | | 850 MG Oral Tablet | | + + + + | 2020-02-25 00:00 | metformin hydrochloride | [facility] | | | 850 MG Oral Tablet | | + + + + | 2021-02-12 00:00 | metformin hydrochloride | [facility] | | | 850 MG Oral Tablet | | + + + + | 2021-11-14 00:00 | LIPASE/PROTEASE/AMYLASE | [facility] | + + + + | 2021-12-03 00:00 | LIPASE/PROTEASE/AMYLASE | [facility] | + + + + | 2021-12-30 00:00 | LIPASE/PROTEASE/AMYLASE | [facility] | + + + + | 2022-01-12 00:00 | LIPASE/PROTEASE/AMYLASE | [facility] | + + + + | 2022-02-02 00:00 | LIPASE/PROTEASE/AMYLASE | [facility] | + + + + | 2022-02-06 00:00 | LIPASE/PROTEASE/AMYLASE | [facility] | + + + + | 2022-02-09 00:00 | LIPASE/PROTEASE/AMYLASE | [facility] | + + + + | 2022-02-19 00:00 | LIPASE/PROTEASE/AMYLASE | [facility] | + + + + | 2022-02-28 00:00 | LIPASE/PROTEASE/AMYLASE | [facility] | + + + + | 2022-04-12 00:00 | LIPASE/PROTEASE/AMYLASE | [facility] | + + + + | 2022-04-19 00:00 | LIPASE/PROTEASE/AMYLASE | [facility] | + + + + | 2022-06-08 00:00 | LIPASE/PROTEASE/AMYLASE | [facility] | + + + + | 2022-06-16 00:00 | LIPASE/PROTEASE/AMYLASE | [facility] | + + + + | 2022-06-19 00:00 | LIPASE/PROTEASE/AMYLASE | [facility] | + + + + | 2022-07-08 00:00 | LIPASE/PROTEASE/AMYLASE | [facility] | + + + + | 2022-07-11 00:00 | LIPASE/PROTEASE/AMYLASE | [facility] | + + + + | 2022-07-14 00:00 | LIPASE/PROTEASE/AMYLASE | [facility] | + + + + | 2022-07-22 00:00 | LIPASE/PROTEASE/AMYLASE | [facility] | + + + + | 2022-07-24 00:00 | LIPASE/PROTEASE/AMYLASE | [facility] | + + + + | 2022-07-27 00:00 | LIPASE/PROTEASE/AMYLASE | [facility] | + + + + | 2022-07-29 00:00 | LIPASE/PROTEASE/AMYLASE | [facility] | + + + + | 2022-07-31 00:00 | LIPASE/PROTEASE/AMYLASE | [facility] | + + + + | 2022-08-05 00:00 | LIPASE/PROTEASE/AMYLASE | [facility] | + + + + | 2022-08-13 00:00 | LIPASE/PROTEASE/AMYLASE | [facility] | + + + + | 2022-08-21 00:00 | LIPASE/PROTEASE/AMYLASE | [facility] | + + + + | 2022-08-31 00:00 | LIPASE/PROTEASE/AMYLASE | [facility] | + + + + | 2022-12-05 00:00 | LIPASE/PROTEASE/AMYLASE | [facility] | + + + + | 2020-01-25 00:00 | amylase [id number] UNT / lipase | [facility] | | | 74801 UNT / protease 60920 | | | | UNT Delayed Release Oral | | | | Capsule [Creon] | | + + + + | 2021-02-12 00:00 | amylase [id number] UNT / lipase | [facility] | | | 26772 UNT / protease [id number] | | | | UNT Delayed Release Oral | | | | Capsule [Creon] | | + + + + | 2021-09-21 00:00 | amylase [id number] UNT / lipase | [facility] | | | [id number] UNT / protease [id number] | | | | UNT Delayed Release Oral | | | | Capsule [Creon] | | + + + + | 2021-08-15 00:00 | LIPASE/PROTEASE/AMYLASE | [facility] | + + + + | 2021-11-14 00:00 | LIPASE/PROTEASE/AMYLASE | [facility] | + + + + | 2021-12-03 00:00 | LIPASE/PROTEASE/AMYLASE | [facility] | + + + + | 2021-12-30 00:00 | LIPASE/PROTEASE/AMYLASE | [facility] | + + + + | 2022-01-12 00:00 | LIPASE/PROTEASE/AMYLASE | [facility] | + + + + | 2022-02-02 00:00 | LIPASE/PROTEASE/AMYLASE | [facility] | + + + + | 2022-02-06 00:00 | LIPASE/PROTEASE/AMYLASE | [facility] | + + + + | 2022-02-09 00:00 | LIPASE/PROTEASE/AMYLASE | [facility] | + + + + | 2022-02-19 00:00 | LIPASE/PROTEASE/AMYLASE | [facility] | + + + + | 2022-02-28 00:00 | LIPASE/PROTEASE/AMYLASE | [facility] | + + + + | 2022-04-12 00:00 | LIPASE/PROTEASE/AMYLASE | [facility] | + + + + | 2022-04-19 00:00 | LIPASE/PROTEASE/AMYLASE | [facility] | + + + + | 2022-06-08 00:00 | LIPASE/PROTEASE/AMYLASE | [facility] | + + + + | 2022-06-16 00:00 | LIPASE/PROTEASE/AMYLASE | [facility] | + + + + | 2022-06-19 00:00 | LIPASE/PROTEASE/AMYLASE | [facility] | + + + + | 2022-07-08 00:00 | LIPASE/PROTEASE/AMYLASE | [facility] | + + + + | 2022-07-11 00:00 | LIPASE/PROTEASE/AMYLASE | [facility] | + + + + | 2022-07-14 00:00 | LIPASE/PROTEASE/AMYLASE | [facility] | + + + + | 2022-07-22 00:00 | LIPASE/PROTEASE/AMYLASE | [facility] | + + + + | 2022-07-24 00:00 | LIPASE/PROTEASE/AMYLASE | [facility] | + + + + | 2022-07-27 00:00 | LIPASE/PROTEASE/AMYLASE | [facility] | + + + + | 2022-07-29 00:00 | LIPASE/PROTEASE/AMYLASE | [facility] | + + + + | 2022-07-31 00:00 | LIPASE/PROTEASE/AMYLASE | [facility] | + + + + | 2022-08-05 00:00 | LIPASE/PROTEASE/AMYLASE | [facility] | + + + + | 2022-08-13 00:00 | LIPASE/PROTEASE/AMYLASE | [facility] | + + + + | 2022-08-21 00:00 | LIPASE/PROTEASE/AMYLASE | [facility] | + + + + | 2022-08-31 00:00 | LIPASE/PROTEASE/AMYLASE | [facility] | + + + + | 2022-12-05 00:00 | LIPASE/PROTEASE/AMYLASE | [facility] | + + + + | 2021-07-19 [...] 2021-08-15 00:00 | INSULIN HUMAN LISPRO | [facility] | + + + + | 2022-02-06 00:00 | BUSPIRONE HCL | [facility] | + + + + | 2022-02-09 00:00 | BUSPIRONE HCL | [facility] | + + + + | 2022-02-19 00:00 | BUSPIRONE HCL | [facility] | + + + + | 2022-02-28 00:00 | BUSPIRONE HCL | [facility] | + + + + | 2022-04-12 00:00 | BUSPIRONE HCL | [facility] | + + + + | 2022-04-19 00:00 | BUSPIRONE HCL | [facility] | + + + + | 2022-06-08 00:00 | BUSPIRONE HCL | [facility] | + + + + | 2022-06-16 00:00 | BUSPIRONE HCL | [facility] | + + + + | 2022-06-19 00:00 | BUSPIRONE HCL | [facility] | + + + + | 2022-07-08 00:00 | BUSPIRONE HCL | [facility] | + + + + | 2022-07-11 00:00 | BUSPIRONE HCL | [facility] | + + + + | 2022-07-14 00:00 | BUSPIRONE HCL | [facility] | + + + + | 2022-07-22 00:00 | BUSPIRONE HCL | [facility] | + + + + | 2022-07-24 00:00 | BUSPIRONE HCL | [facility] | + + + + | 2022-07-27 00:00 | BUSPIRONE HCL | [facility] | + + + + | 2022-07-29 00:00 | BUSPIRONE HCL | [facility] | + + + + | 2022-07-31 00:00 | BUSPIRONE HCL | [facility] | + + + + | 2022-08-05 00:00 | BUSPIRONE HCL | [facility] | + + + + | 2022-08-13 00:00 | BUSPIRONE HCL | [facility] | + + + + | 2022-08-21 00:00 | BUSPIRONE HCL | [facility] | + + + + | 2022-08-31 00:00 | BUSPIRONE HCL | [facility] | + + + + | 2022-12-05 00:00 | BUSPIRONE HCL | [facility] | + + + + | 2021-08-15 00:00 | BUSPIRONE HCL | [facility] | + + + + | 2021-11-14 00:00 | BUSPIRONE HCL | [facility] | + + + + | 2021-12-03 00:00 | BUSPIRONE HCL | [facility] | + + + + | 2021-12-30 00:00 | BUSPIRONE HCL | [facility] | + + + + | 2022-01-12 00:00 | BUSPIRONE HCL | [facility] | + + + + | 2022-02-02 00:00 | BUSPIRONE HCL | [facility] | + + + + | 2022-02-06 00:00 | BUSPIRONE HCL | [facility] | + + + + | 2022-02-09 00:00 | BUSPIRONE HCL | [facility] | + + + + | 2022-02-19 00:00 | BUSPIRONE HCL | [facility] | + + + + | 2022-02-28 00:00 | BUSPIRONE HCL | [facility] | + + + + | 2022-04-12 00:00 | BUSPIRONE HCL | [facility] | + + + + | 2022-04-19 00:00 | BUSPIRONE HCL | [facility] | + + + + | 2022-06-08 00:00 | BUSPIRONE HCL | [facility] | + + + + | 2022-06-16 00:00 | BUSPIRONE HCL | [facility] | + + + + | 2022-06-19 00:00 | BUSPIRONE HCL | [facility] | + + + + | 2022-07-08 00:00 | BUSPIRONE HCL | [facility] | + + + + | 2022-07-11 00:00 | BUSPIRONE HCL | [facility] | + + + + | 2022-07-14 00:00 | BUSPIRONE HCL | [facility] | + + + + | 2022-07-22 00:00 | BUSPIRONE HCL | [facility] | + + + + | 2022-07-24 00:00 | BUSPIRONE HCL | [facility] | + + + + | 2022-07-27 00:00 | BUSPIRONE HCL | [facility] | + + + + | 2022-07-29 00:00 | BUSPIRONE HCL | [facility] | + + + + | 2022-07-31 00:00 | BUSPIRONE HCL | [facility] | + + + + | 2022-08-05 00:00 | BUSPIRONE HCL | [facility] | + + + + | 2022-08-13 00:00 | BUSPIRONE HCL | [facility] | + + + + | 2022-08-21 00:00 | BUSPIRONE HCL | [facility] | + + + + | 2022-08-31 00:00 | BUSPIRONE HCL | [facility] | + + + + | 2022-12-05 00:00 | BUSPIRONE HCL | [facility] | + + + + | 2021-08-19 00:00 | buspirone hydrochloride 10 | [facility] | | | MG Oral Tablet | | + + + + | 2021-03-18 00:00 | buspirone hydrochloride 10 | [facility] | | | mg oral tablet [...] 2021-06-19 00:00 | polyethylene glycol 3350 | [facility] | | | 17 gm powder [...] 2021-03-16 00:00 | polyethylene glycol 3350 | [facility] | | | [address] MG Powder for Oral | | | | Solution [Miralax] | | + + + + | 2021-08-15 00:00 | POLYETHYLENE GLYCOL 3350 | [facility] | + + + + | 2021-11-14 00:00 | POLYETHYLENE GLYCOL 3350 | [facility] | + + + + | 2021-12-03 00:00 | POLYETHYLENE GLYCOL 3350 | [facility] | + + + + | 2021-12-30 00:00 | POLYETHYLENE GLYCOL 3350 | [facility] | + + + + | 2022-01-12 00:00 | POLYETHYLENE GLYCOL 3350 | [facility] | + + + + | 2022-02-02 00:00 | POLYETHYLENE GLYCOL 3350 | [facility] | + + + + | 2022-02-06 00:00 | POLYETHYLENE GLYCOL 3350 | [facility] | + + + + | 2022-02-09 00:00 | POLYETHYLENE GLYCOL 3350 | [facility] | + + + + | 2022-02-19 00:00 | POLYETHYLENE GLYCOL 3350 | [facility] | + + + + | 2022-02-28 00:00 | POLYETHYLENE GLYCOL 3350 | [facility] | + + + + | 2022-04-12 00:00 | POLYETHYLENE GLYCOL 3350 | [facility] | + + + + | 2022-04-19 00:00 | POLYETHYLENE GLYCOL 3350 | [facility] | + + + + | 2022-06-08 00:00 | POLYETHYLENE GLYCOL 3350 | [facility] | + + + + | 2022-06-16 00:00 | POLYETHYLENE GLYCOL 3350 | [facility] | + + + + | 2022-06-19 00:00 | POLYETHYLENE GLYCOL 3350 | [facility] | + + + + | 2022-07-08 00:00 | POLYETHYLENE GLYCOL 3350 | [facility] | + + + + | 2022-07-11 00:00 | POLYETHYLENE GLYCOL 3350 | [facility] | + + + + | 2022-07-14 00:00 | POLYETHYLENE GLYCOL 3350 | [facility] | + + + + | 2022-07-22 00:00 | POLYETHYLENE GLYCOL 3350 | [facility] | + + + + | 2022-07-24 00:00 | POLYETHYLENE GLYCOL 3350 | [facility] | + + + + | 2022-07-27 00:00 | POLYETHYLENE GLYCOL 3350 | [facility] | + + + + | 2022-07-29 00:00 | POLYETHYLENE GLYCOL 3350 | [facility] | + + + + | 2022-07-31 00:00 | POLYETHYLENE GLYCOL 3350 | [facility] | + + + + | 2022-08-05 00:00 | POLYETHYLENE GLYCOL 3350 | [facility] | + + + + | 2022-08-13 00:00 | POLYETHYLENE GLYCOL 3350 | [facility] | + + + + | 2022-08-21 00:00 | POLYETHYLENE GLYCOL 3350 | [facility] | + + + + | 2022-08-31 00:00 | POLYETHYLENE GLYCOL 3350 | [facility] | + + + + | 2022-12-05 00:00 | POLYETHYLENE GLYCOL 3350 | [facility] | + + + + | 2022-07-24 00:00 | TRANEXAMIC ACID | [facility] | + + + + | 2020-01-25 00:00 | levothyroxine sodium 0.1 | [facility] | | | MG Oral Tablet | | + + + + | 2021-02-12 00:00 | levothyroxine sodium 0.1 | [facility] | | | MG Oral Tablet | | + + + + | 2021-09-21 00:00 | levothyroxine sodium 0.1 | [facility] | | | MG [...] | | mcg oral tablet | Care [facility] | + + + + | 2021-10-05 00:00 | levothyroxine sodium 100 | [facility] | | | mcg oral tablet | | + + + + | 2021-10-05 00:00 | levothyroxine sodium 100 | [facility] | | | mcg oral tablet | Care [address] [place] [address] | + + + + | 2021-07-19 00:00 | labetalol hcl 200 mg oral | [facility] | | | tablet | Care [address] [place] [address] | + + + + | 2021-07-27 [...] | | hydrochloride 2 mg oral | [address] | | | tablet | [...] 00:00 | Gemfibrozil 600 MG Oral | [facility] | | | Tablet | | + + + + | 2022-02-23 00:00 | Gemfibrozil 600 MG Oral | [facility] | | | Tablet | | + + + + | 2020-07-16 00:00 | EQ Nicotine 21 MG/24HR | [facility] | | | Transdermal Patch 24 Hour | | + + + + | 2021-08-15 00:00 | Levothyroxine Sodium | [facility] | + + + + | 2021-08-15 00:00 | Levothyroxine Sodium | [facility] | + + + + | 2021-08-15 00:00 | Levothyroxine Sodium | [facility] | + + + + | 2021-08-15 00:00 | Levothyroxine Sodium | [facility] | + + + + | 2021-11-14 00:00 | Levothyroxine Sodium | [facility] | + + + + | 2021-12-03 00:00 | Levothyroxine Sodium | [facility] | + + + + | 2021-12-30 00:00 | Levothyroxine Sodium | [facility] | + + + + | 2022-01-12 00:00 | Levothyroxine Sodium | [facility] | + + + + | 2022-02-02 00:00 | Levothyroxine Sodium | [facility] | + + + + | 2022-02-06 00:00 | Levothyroxine Sodium | [facility] | + + + + | 2022-02-09 00:00 | Levothyroxine Sodium | [facility] | + + + + | 2022-02-19 00:00 | Levothyroxine Sodium | [facility] | + + + + | 2022-02-28 00:00 | Levothyroxine Sodium | [facility] | + + + + | 2022-04-12 00:00 | Levothyroxine Sodium | [facility] | + + + + | 2022-04-19 00:00 | Levothyroxine Sodium | [facility] | + + + + | 2022-06-08 00:00 | Levothyroxine Sodium | [facility] | + + + + | 2022-06-16 00:00 | Levothyroxine Sodium | [facility] | + + + + | 2022-06-19 00:00 | Levothyroxine Sodium | [facility] | + + + + | 2022-07-08 00:00 | Levothyroxine Sodium | [facility] | + + + + | 2022-07-11 00:00 | Levothyroxine Sodium | [facility] | + + + + | 2022-07-14 00:00 | Levothyroxine Sodium | [facility] | + + + + | 2022-07-22 00:00 | Levothyroxine Sodium | [facility] | + + + + | 2022-07-24 00:00 | Levothyroxine Sodium | [facility] | + + + + | 2022-07-27 00:00 | Levothyroxine Sodium | [facility] | + + + + | 2022-07-29 00:00 | Levothyroxine Sodium | [facility] | + + + + | 2022-07-31 00:00 | Levothyroxine Sodium | [facility] | + + + + | 2022-08-05 00:00 | Levothyroxine Sodium | [facility] | + + + + | 2022-08-13 00:00 | Levothyroxine Sodium | [facility] | + + + + | 2022-08-21 00:00 | Levothyroxine Sodium | [facility] | + + + + | 2022-08-31 00:00 | Levothyroxine Sodium | [facility] | + + + + | 2022-12-05 00:00 | Levothyroxine Sodium | [facility] | + + + + | 2021-07-19 00:00 | levothyroxine sodium 0.025 | [facility] | | | mg oral tablet | Care 7th Floor | + + + + | 2021-07-29 00:00 | levothyroxine sodium 0.05 | [facility] | | | mg oral tablet | Specialties | + + + + | 2019-06-23 00:00 | LEVOTHYROXINE SODIUM | [facility] | + + + + | 2019-06-23 00:00 | LEVOTHYROXINE SODIUM | [facility] | + + + + | 2019-06-23 00:00 | LEVOTHYROXINE SODIUM | [facility] | + + + + | 2019-06-23 00:00 | LEVOTHYROXINE SODIUM | [facility] | + + + + | 2021-11-14 00:00 | LEVOTHYROXINE SODIUM | [facility] | + + + + | 2021-12-03 00:00 | LEVOTHYROXINE SODIUM | [facility] | + + + + | 2021-12-30 00:00 | LEVOTHYROXINE SODIUM | [facility] | + + + + | 2022-01-12 00:00 | LEVOTHYROXINE SODIUM | [facility] | + + + + | 2022-02-02 00:00 | LEVOTHYROXINE SODIUM | [facility] | + + + + | 2022-02-06 00:00 | LEVOTHYROXINE SODIUM | [facility] | + + + + | 2022-02-09 00:00 | LEVOTHYROXINE SODIUM | [facility] | + + + + | 2022-02-19 00:00 | LEVOTHYROXINE SODIUM | [facility] | + + + + | 2022-02-28 00:00 | LEVOTHYROXINE SODIUM | [facility] | + + + + | 2022-04-12 00:00 | LEVOTHYROXINE SODIUM | [facility] | + + + + | 2022-04-19 00:00 | LEVOTHYROXINE SODIUM | [facility] | + + + + | 2022-06-08 00:00 | LEVOTHYROXINE SODIUM | [facility] | + + + + | 2022-06-16 00:00 | LEVOTHYROXINE SODIUM | [facility] | + + + + | 2022-06-19 00:00 | LEVOTHYROXINE SODIUM | [facility] | + + + + | 2022-07-08 00:00 | LEVOTHYROXINE SODIUM | [facility] | + + + + | 2022-07-11 00:00 | LEVOTHYROXINE SODIUM | [facility] | + + + + | 2022-07-14 00:00 | LEVOTHYROXINE SODIUM | [facility] | + + + + | 2022-07-22 00:00 | LEVOTHYROXINE SODIUM | [facility] | + + + + | 2022-07-24 00:00 | LEVOTHYROXINE SODIUM | [facility] | + + + + | 2022-07-27 00:00 | LEVOTHYROXINE SODIUM | [facility] | + + + + | 2022-07-29 00:00 | LEVOTHYROXINE SODIUM | [facility] | + + + + | 2022-07-31 00:00 | LEVOTHYROXINE SODIUM | [facility] | + + + + | 2022-08-05 00:00 | LEVOTHYROXINE SODIUM | [facility] | + + + + | 2022-08-13 00:00 | LEVOTHYROXINE SODIUM | [facility] | + + + + | 2022-08-21 00:00 | LEVOTHYROXINE SODIUM | [facility] | + + + + | 2022-08-31 00:00 | LEVOTHYROXINE SODIUM | [facility] | + + + + | 2022-12-05 00:00 | LEVOTHYROXINE SODIUM | [facility] | + + + + | 2020-01-25 [...] 00:00 | 60 ACTUAT budesonide 0.09 | [facility] | | | MG/ACTUAT Dry Powder | | | | Inhaler [Pulmicort] | | + + + + | 2020-12-30 00:00 | 60 ACTUAT budesonide 0.09 | [facility] | | | MG/ACTUAT Dry Powder | | | | Inhaler [Pulmicort] | | + + + + | 2021-02-12 00:00 | 60 ACTUAT budesonide 0.09 | [facility] | | | MG/ACTUAT Dry Powder | | | | Inhaler [Pulmicort] | | + + + + | 2021-03-16 00:00 | 60 actuat budesonide 0.09 | [facility] | | | mg/actuat dry powder | | | | inhaler [pulmicort] | | + + + + | 2021-03-16 00:00 | 60 actuat budesonide 0.09 | [facility] | | | mg/actuat dry powder | [address] | | | inhaler [pulmicort] [...] + | 2021-08-15 00:00 | BUDESONIDE | [facility] | + + + + | 2021-08-15 00:00 | BUDESONIDE | [facility] | + + + + | 2021-08-15 00:00 | BUDESONIDE | [facility] | + + + + | 2021-08-15 00:00 | BUDESONIDE | [facility] | + + + + | 2021-11-14 00:00 | BUDESONIDE | [facility] | + + + + | 2021-12-03 00:00 | BUDESONIDE | [facility] | + + + + | 2021-12-30 00:00 | BUDESONIDE | [facility] | + + + + | 2022-01-12 00:00 | BUDESONIDE | [facility] | + + + + | 2022-02-02 00:00 | BUDESONIDE | [facility] | + + + + | 2022-02-06 00:00 | BUDESONIDE | [facility] | + + + + | 2022-02-09 00:00 | BUDESONIDE | [facility] | + + + + | 2022-02-19 00:00 | BUDESONIDE | [facility] | + + + + | 2022-02-28 00:00 | BUDESONIDE | [facility] | + + + + | 2022-04-12 00:00 | BUDESONIDE | [facility] | + + + + | 2022-04-19 00:00 | BUDESONIDE | [facility] | + + + + | 2022-06-08 00:00 | BUDESONIDE | [facility] | + + + + | 2022-06-16 00:00 | BUDESONIDE | [facility] | + + + + | 2022-06-19 00:00 | BUDESONIDE | [facility] | + + + + | 2022-07-08 00:00 | BUDESONIDE | [facility] | + + + + | 2022-07-11 00:00 | BUDESONIDE | [facility] | + + + + | 2022-07-14 00:00 | BUDESONIDE | [facility] | + + + + | 2022-07-22 00:00 | BUDESONIDE | [facility] | + + + + | 2022-07-24 00:00 | BUDESONIDE | [facility] | + + + + | 2022-07-27 00:00 | BUDESONIDE | [facility] | + + + + | 2022-07-29 00:00 | BUDESONIDE | [facility] | + + + + | 2022-07-31 00:00 | BUDESONIDE | [facility] | + + + + | 2022-08-05 00:00 | BUDESONIDE | [facility] | + + + + | 2022-08-13 00:00 | BUDESONIDE | [facility] | + + + + | 2022-08-21 00:00 | BUDESONIDE | [facility] | + + + + | 2022-08-31 00:00 | BUDESONIDE | [facility] | + + + + | 2022-12-05 00:00 | BUDESONIDE | [facility] | + + + + | 2021-07-19 00:00 | 1 ml hydralazine | [facility] | | | hydrochloride 20 mg/ml | [address] | | | injection | | + + + + | 2022-07-24 00:00 | PROMETHAZINE HCL | [facility] | + + + + | 2022-07-29 00:00 | PROMETHAZINE HCL | [facility] | + + + + | 2022-07-29 00:00 | PROMETHAZINE HCL | [facility] | + + + + | 2022-07-29 00:00 | PROMETHAZINE HCL | [facility] | + + + + | 2022-02-23 00:00 | promethazine hydrochloride | [facility] | | | 25 MG Oral Tablet | | + + + + | 2021-06-23 00:00 | promethazine hydrochloride | [facility] | | | 25 mg oral [...] | 2022-07-27 00:00 | PROMETHAZINE HCL | [facility] | + + + + | 2022-02-06 00:00 | HYDROXYZINE PAMOATE | [facility] | + + + + | 2022-02-09 00:00 | HYDROXYZINE PAMOATE | [facility] | + + + + | 2022-02-19 00:00 | HYDROXYZINE PAMOATE | [facility] | + + + + | 2022-02-28 00:00 | HYDROXYZINE PAMOATE | [facility] | + + + + | 2022-04-12 00:00 | HYDROXYZINE PAMOATE | [facility] | + + + + | 2022-04-19 00:00 | HYDROXYZINE PAMOATE | [facility] | + + + + | 2022-06-08 00:00 | HYDROXYZINE PAMOATE | [facility] | + + + + | 2022-06-16 00:00 | HYDROXYZINE PAMOATE | [facility] | + + + + | 2022-06-19 00:00 | HYDROXYZINE PAMOATE | [facility] | + + + + | 2022-07-08 00:00 | HYDROXYZINE PAMOATE | [facility] | + + + + | 2022-07-11 00:00 | HYDROXYZINE PAMOATE | [facility] | + + + + | 2022-07-14 00:00 | HYDROXYZINE PAMOATE | [facility] | + + + + | 2022-07-22 00:00 | HYDROXYZINE PAMOATE | [facility] | + + + + | 2022-07-24 00:00 | HYDROXYZINE PAMOATE | [facility] | + + + + | 2022-07-27 00:00 | HYDROXYZINE PAMOATE | [facility] | + + + + | 2022-07-29 00:00 | HYDROXYZINE PAMOATE | [facility] | + + + + | 2022-07-31 00:00 | HYDROXYZINE PAMOATE | [facility] | + + + + | 2022-08-05 00:00 | HYDROXYZINE PAMOATE | [facility] | + + + + | 2022-08-13 00:00 | HYDROXYZINE PAMOATE | [facility] | + + + + | 2022-08-21 00:00 | HYDROXYZINE PAMOATE | [facility] | + + + + | 2022-08-31 00:00 | HYDROXYZINE PAMOATE | [facility] | + + + + | 2022-12-05 00:00 | HYDROXYZINE PAMOATE | [facility] | + + + + | 2021-08-15 00:00 | hydrOXYzine HCL | [facility] | + + + + | 2021-11-14 00:00 | hydrOXYzine HCL | [facility] | + + + + | 2021-12-03 00:00 | hydrOXYzine HCL | [facility] | + + + + | 2021-12-30 00:00 | hydrOXYzine HCL | [facility] | + + + + | 2022-01-12 00:00 | hydrOXYzine HCL | [facility] | + + + + | 2022-02-02 00:00 | hydrOXYzine HCL | [facility] | + + + + | 2022-02-06 00:00 | hydrOXYzine HCL | [facility] | + + + + | 2022-02-09 00:00 | hydrOXYzine HCL | [facility] | + + + + | 2022-02-19 00:00 | hydrOXYzine HCL | [facility] | + + + + | 2022-02-28 00:00 | hydrOXYzine HCL | [facility] | + + + + | 2022-04-12 00:00 | hydrOXYzine HCL | [facility] | + + + + | 2022-04-19 00:00 | hydrOXYzine HCL | [facility] | + + + + | 2022-06-08 00:00 | hydrOXYzine HCL | [facility] | + + + + | 2022-06-16 00:00 | hydrOXYzine HCL | [facility] | + + + + | 2022-06-19 00:00 | hydrOXYzine HCL | [facility] | + + + + | 2022-07-08 00:00 | hydrOXYzine HCL | [facility] | + + + + | 2022-07-11 00:00 | hydrOXYzine HCL | [facility] | + + + + | 2022-07-14 00:00 | hydrOXYzine HCL | [facility] | + + + + | 2022-07-22 00:00 | hydrOXYzine HCL | [facility] | + + + + | 2022-07-24 00:00 | hydrOXYzine HCL | [facility] | + + + + | 2022-07-27 00:00 | hydrOXYzine HCL | [facility] | + + + + | 2022-07-29 00:00 | hydrOXYzine HCL | [facility] | + + + + | 2022-07-31 00:00 | hydrOXYzine HCL | [facility] | + + + + | 2022-08-05 00:00 | hydrOXYzine HCL | [facility] | + + + + | 2022-08-13 00:00 | hydrOXYzine HCL | [facility] | + + + + | 2022-08-21 00:00 | hydrOXYzine HCL | [facility] | + + + + | 2022-08-31 00:00 | hydrOXYzine HCL | [facility] | + + + + | 2022-12-05 00:00 | hydrOXYzine HCL | [facility] | + + + + | 2021-06-24 00:00 | hydroxyzine hydrochloride | [facility] | | | 25 mg oral [...] | 2020-01-21 00:00 | hydroxyzine hydrochloride | [facility] | | | 50 MG Oral Tablet | | + + + + | 2021-07-19 00:00 | hydroxyzine hydrochloride | [facility] | | | 50 mg oral tablet | Care 7th Floor | + + + + | 2021-08-01 00:00 | anoop sodium 50 mg / | [facility] | | | sennosides, shelter 8.6 mg oral | Department | | | tablet | | + + + + | 2021-08-01 00:00 | anoop sodium 50 mg / | [facility] | | | sennosides, shelter 8.6 mg oral | Specialties | | | tablet | | + + + + | 2021-12-18 00:00 | Miscellaneous | [facility] | | | | | + + + + | 2020-02-20 00:00 | Albuterol Sulfate HFA 108 | [facility] | | | (90)mcg/act Inhalation | | | | Inhaler | | + + + + Problems + + + + | date | description | facility | + + + + | 2010-08-07 00:00 | bipolar affective disorder | [facility] | | | | | + + + + | 2010-08-07 00:00 | bipolar affective disorder | [facility] | | | | Department | + + + + | 2010-08-07 00:00 | bipolar affective disorder | [facility] | | | | Specialties | + + + + | 2010-08-07 00:00 | bipolar affective disorder | [facility] | | | | Care 7th Floor | + + + + | 2010-08-07 00:00 | Bipolar disorder | [facility] | + + + + | [...] 2010-12-08 00:00 | chronic pain syndrome | [facility] | | | (disorder) | | [...] 2010-12-08 00:00 | Chronic pain disorder | [facility] | + + + + | 2010-12-08 00:00 | Chronic pain disorder | [facility] | | | | Department | + + + + | 2010-12-08 00:00 | Chronic pain disorder | [facility] | | | | Specialties | + + + + | 2010-12-08 00:00 | Chronic pain disorder | [facility] | | | | Care 7th Floor | + + + + | 2011-07-09 00:00 | hypothyroidism (disorder) | [facility] | + + + + | [...] + | 2011-07-09 00:00 | Hypothyroidism | [facility] | + + + + | [...] | 2011-07-14 00:00 | polysubstance abuse | [facility] | | | (disorder) | | [...] | 2011-07-14 00:00 | Polysubstance abuse | [facility] | + + + + | [...] 2013-07-19 00:00 | gastric varices (disorder) | [facility] | | | | | + + + + | 2013-07-19 00:00 | gastric varices (disorder) | [facility] | | [...] | 2013-07-19 00:00 | Gastric varices | [facility] | + + + + | [...] 2018-12-24 00:00 | history of surgery | [facility] | | | (situation) | | + [...] 00:00 | H/O resection of pancreas | [facility] | + + + + | 2018-12-24 00:00 | H/O resection of pancreas | [facility] | | | | Department | + + + + | 2018-12-24 00:00 | H/O resection of pancreas | [facility] | | | | Specialties | + + + + | 2018-12-24 00:00 | H/O resection of pancreas | [facility] | | | | [address] | + + + + | 2019-06-23 00:00 | Candidiasis of vagina | [facility] | + + + + | 2019-06-23 00:00 | Candidiasis of vagina | [facility] | + + + + | 2019-06-23 00:00 | Candidiasis of vagina | [facility] | + + + + | 2019-06-23 00:00 | Candidiasis of vagina | [facility] | + + + + | 2019-06-23 00:00 | 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, 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 | | + + + + | 2019-06-23 00:00 | 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, 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 | | + + + + | 2019-06-23 00:00 | 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, 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 | | + + + + | 2019-06-23 00:00 | 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, 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 | | + + + + | 2019-06-23 00:00 | Bipolar disorder | [facility] | + + + + | 2019-06-23 00:00 | Bipolar disorder | [facility] | + + + + | 2019-06-23 00:00 | Bipolar disorder | [facility] | + + + + | 2019-06-23 00:00 | Bipolar disorder | [facility] | + + + + | 2019-06-23 00:00 | Cellulitis | [facility] | + + + + | 2019-06-23 00:00 | Cellulitis | [facility] | + + + + | 2019-06-23 00:00 | Cellulitis | [facility] | + + + + 2019-06-23 00:00 | Cellulitis | [facility] | + + + + 2019-06-23 00:00 | Suicidal ideation | [facility] | + + + + | 2019-06-23 00:00 | Suicidal ideation | [facility] | + + + + | 2019-06-23 00:00 | Suicidal ideation | [facility] | + + + + | 2019-06-23 00:00 | Suicidal ideation | [facility] | + + + + | 2020-01-25 00:00 | Chronic pancreatitis | [facility] | | | (disorder) | | + + + + | 2020-01-25 00:00 | HYPOTHYROIDISM | Jeanmarie MILANC. 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 | | | ESSENTIAL | | + + + + | 2020-01-25 00:00 | Moderate bipolar I | [facility] Jeanmarie LARAC. | | | disorder, single manic | | | | episode (disorder) | | + + + + | 2020-01-25 00:00 | BIPOLAR 1 DISORDER SINGLE | [facility] Jeanmarie LARAC. | | | MANIC EPISODE [...] 00:00 | Diabetes Mellitus Type 2 | [facility] Meghann LARA. | | | | | + + + + | 2020-01-25 00:00 | Hypertriglyceridemia | [facility] Sunday LARA | | | | | + + + + | 2020-01-25 00:00 | Bipolar I Disorder, Single | [facility] Meghann LARA. | | | Manic Episode Moderate | | + + + + | 2020-01-25 00:00 | Chronic Pancreatitis | [facility] Meghann LARA. | | | | | + + + + | 2021-03-16 00:00 | Low Back Pain | [facility] | | | | | + + + + | 2021-04-01 00:00 | pre-existing diabetes | [facility] | | | mellitus in | | [...] | 2021-04-01 00:00 | pre-existing diabetes | [facility] | | | mellitus in | Care 7th Floor | | | (disorder) | | + + + + | 2021-04-01 00:00 | Pre-existing diabetes | [facility] | | | mellitus affecting | | [...] | 2021-04-01 00:00 | Pre-existing diabetes | [facility] | | | mellitus affecting | Care 7th Floor | | | , antepartum | | + + + + | 2021-04-21 00:00 | Abdominal pain during | [facility] | | | | | + + + + | 2021-04-21 00:00 | Abdominal pain during | [facility] | | | | | + + + + | 2021-04-21 00:00 | Abdominal pain during | [facility] | | | | | + + + + | 2021-04-21 00:00 | Abdominal pain during | [facility] | | | | | + + + + | 2021-07-16 00:00 | superimposed pre-eclampsia | [facility] | | | | | + [...] 2021-07-16 00:00 | Chronic hypertension with | [facility] | | | superimposed preeclampsia | [...] | 2021-07-19 00:00 | enzyme level | [facility] | + + + + | [...] + | 2021-07-19 00:00 | Transaminitis | [facility] | + + + + | [...] | 2021-07-23 00:00 | delivery - | [facility] | | | delivered (finding) | | [...] 00:00 | delivery - | [facility] | | | delivered (finding) | Care 7th Floor | + + + + | 2021-07-23 00:00 | Single delivery by | [facility] | | | section | [...] 00:00 | Single delivery by | [facility] | | | section | Care 7th Floor | + + + + | 2021-07-27 00:00 | ketoacidosis without coma | [facility] | | | due to diabetes [...] | 2021-07-27 00:00 | Diabetic ketoacidosis | [facility] | | | without coma associated [...] | 2021-07-28 00:00 | history of | [facility] | | | section (situation) | | [...] 00:00 | history of | [facility] | | | section (situation) | Care 7th Floor | + + + + | 2021-07-28 00:00 | hydroperitoneum | [facility] | | | | Department | + + + + | 2021-07-28 00:00 | hydroperitoneum | [facility] | | | | Specialties | + + + + | 2021-07-28 00:00 | complication of surgical | [facility] | | | procedure (disorder) | | [...] 2021-07-28 00:00 | Complication of surgical | [facility] | | | procedure | | [...] | 2021-07-28 00:00 | S/P section | [facility] | + + + + | 2021-07-28 00:00 | S/P section | [facility] | | | | Department | + + + + | 2021-07-28 00:00 | S/P section | [facility] | | | | Specialties | + + + + | 2021-07-28 00:00 | S/P section | [facility] | | | | Care 7th Floor | + + + + | 2021-08-01 00:00 | injury of bladder | [facility] | | | (disorder) | | [...] | 2021-08-01 00:00 | Bladder injury | [facility] | + + + + | 2021-08-01 00:00 | Bladder injury | [facility] | | | | Department | + + + + | 2021-08-01 00:00 | Bladder injury | [facility] | | | | Specialties | + + + + | 2021-08-01 00:00 | Bladder injury | [facility] | | | | Care 7th Floor | + + + + | 2021-08-11 00:00 | Postoperative wound | [facility] | | | infection | | + + + + | 2021-08-11 00:00 | Postoperative wound | [facility] | | | infection | | + + + + | 2021-08-11 00:00 | Postoperative wound | [facility] | | | infection | | + + + + | 2021-08-11 00:00 | Postoperative wound | [facility] | | | infection | | + + + + | 2021-11-03 00:00 | Hyperglycemia due to | [facility] | | | diabetes mellitus | | + + + + | 2021-11-03 00:00 | Hyperglycemia due to | [facility] | | | diabetes mellitus | | + + + + | 2021-11-03 00:00 | Hyperglycemia due to | [facility] | | | diabetes mellitus | | + + + + | 2021-11-03 00:00 | Hyperglycemia due to | [facility] | | | diabetes mellitus | | + + + + | 2021-11-03 00:00 | Dehydration | [facility] | + + + + | 2021-11-03 00:00 | Dehydration | [facility] | + + + + | 2021-11-03 00:00 | Dehydration | [facility] | + + + + | 2021-11-03 00:00 | Dehydration | [facility] | + + + + | 2021-12-03 00:00 | Hyperglycemia | [facility] | + + + + | 2021-12-03 00:00 | Hyperglycemia | [facility] | + + + + | 2021-12-03 00:00 | Hyperglycemia | [facility] | + + + + | 2021-12-03 00:00 | Hyperglycemia | [facility] | + + + + | 2021-12-18 00:00 | DIABETES MELLITUS | [facility] | | | SECONDARY DIABETIC | | | | HYPOGLYCEMIA | | + + + + | 2021-12-18 00:00 | Disease condition | [facility] Meghann LARA. | | | determination, uncontrolled | | | | (finding) | | + + + + | 2021-12-18 00:00 | Secondary diabetes | [facility] Jeanmarie LARAC. | | | mellitus (disorder) | | + + + + | 2021-12-18 00:00 | Diabetes Mellitus | [facility] | | | Secondary Uncontrolled | | + + + + | 2022-01-12 00:00 | Urinary tract infection | [facility] | + + + + | 2022-01-12 00:00 | Urinary tract infection | [facility] | + + + + | 2022-01-12 00:00 | Urinary tract infection | [facility] | + + + + | 2022-01-12 00:00 | Urinary tract infection | [facility] | + + + + | 2022-02-02 00:00 | Cyst of left ovary | [facility] | + + + + | 2022-02-02 00:00 | Cyst of left ovary | [facility] | + + + + | 2022-02-02 00:00 | Cyst of left ovary | [facility] | + + + + | 2022-02-02 00:00 | Cyst of left ovary | [facility] | + + + + | 2022-02-04 00:00 | Gastrointestinal | [facility] | | | hemorrhage | | + + + + | 2022-02-04 00:00 | Gastrointestinal | [facility] | | | hemorrhage | | + + + + | 2022-02-04 00:00 | Gastrointestinal | [facility] | | | hemorrhage | | + + + + | 2022-02-04 00:00 | Gastrointestinal | [facility] | | | hemorrhage | [...] + | 2022-02-08 00:00 | Enteritis | [facility] | + + + + | 2022-02-08 00:00 | Enteritis | [facility] | + + + + | 2022-02-08 00:00 | Enteritis | [facility] | + + + + | 2022-02-08 00:00 | Enteritis | [facility] | + + + + | 2022-02-08 00:00 | Cyst of ovary | [facility] | + + + + | 2022-02-08 00:00 | Cyst of ovary | [facility] | + + + + | 2022-02-08 00:00 | Cyst of ovary | [facility] | + + + + | 2022-02-08 00:00 | Cyst of ovary | [facility] | + + + + | 2022-02-19 00:00 | Diabetes mellitus | [facility] | + + + + | 2022-02-19 00:00 | Diabetes mellitus | [facility] | + + + + 2022-02-19 00:00 | Diabetes mellitus | [facility] | + + + + | 2022-02-19 00:00 | Diabetes mellitus | [facility] | + + + + | 2022-02-19 00:00 | Abdominal pain | [facility] | + + + + | 2022-02-19 00:00 | Abdominal pain | [facility] | + + + + | 2022-02-19 00:00 | Abdominal pain | [facility] | + + + + | 2022-02-19 00:00 | Abdominal pain | [facility] | + + + + | 2022-02-25 [...] 2022-02-28 00:00 | Nausea and vomiting | [facility] | + + + + | 2022-02-28 00:00 | Nausea and vomiting | [facility] | + + + + | 2022-02-28 00:00 | Nausea and vomiting | [facility] | + + + + | 2022-02-28 00:00 | Nausea and vomiting | [facility] | + + + + | 2022-04-12 00:00 | Vomiting | [facility] | + + + + | 2022-04-12 00:00 | Vomiting | [facility] | + + + + | 2022-04-12 00:00 | Vomiting | [facility] | + + + + | 2022-04-12 00:00 | Vomiting | [facility] | + + + + [...] + + + | 2022-04-12 09:32 | GROUP HOME (CURRENT) USE OF | [facility] | | | INSULIN | | + + + + | 2022-04-12 09:32 | OTHER TORCH [facility]URNER (CURRENT) | [facility] | | | DRUG [...] 2022-04-19 00:00 | Poorly controlled diabetes | [facility] | | | mellitus | | + + + + | 2022-04-19 00:00 | Poorly controlled diabetes | [facility] | | | mellitus | | + + + + | 2022-04-19 00:00 | Poorly controlled diabetes | [facility] | | | mellitus | | + + + + | 2022-04-19 00:00 | Poorly controlled diabetes | [facility] | | | mellitus | | + + + + | 2022-06-08 00:00 | Gastritis | [facility] | + + + + | 2022-06-08 00:00 | Gastritis | [facility] | + + + + | 2022-06-08 00:00 | Gastritis | [facility] | + + + + | 2022-06-08 00:00 | Gastritis | [facility] | + + + + | 2022-06-08 [...] + + + | 2022-06-08 06:42 | GROUP HOME (CURRENT) USE OF | [facility] | | | INSULIN | | + + + + | 2022-06-08 06:42 | OTHER GROUP HOME (CURRENT) | [facility] | | | DRUG [...] + + + | 2022-06-15 07:12 | GROUP HOME (CURRENT) USE OF | [facility] | | | INSULIN | | + + + + | 2022-06-15 07:12 | OTHER TORCH [facility]URNER (CURRENT) | [facility] | | | DRUG THERAPY | | + + + + | 2022-06-15 07:12 | ALLERGY STATUS TO OTH | [facility] | | | DRUG/MEDS/BIOL SUBST STATUS | | | | | | + + + + | 2022-06-16 00:00 | Diabetic ketoacidosis | [facility] | + + + + | 2022-06-16 00:00 | Diabetic ketoacidosis | [facility] | + + + + | 2022-06-16 00:00 | Diabetic ketoacidosis | [facility] | + + + + | 2022-06-16 00:00 | Diabetic ketoacidosis | [facility] | + + + + | 2022-06-18 [...] + + + | 2022-06-19 05:43 | GROUP HOME (CURRENT) USE OF | [facility] | | | INSULIN | | + + + + | 2022-06-19 05:43 | GROUP HOME (CURRENT) USE OF | [facility] | | | ORAL HYPOGLYCEMIC DRUGS | | + + + + | 2022-06-19 05:43 | OTHER TOR[facility]URNER (CURRENT) | [facility] | | | DRUG [...] 00:00 | Type 1 diabetes mellitus | [facility] | | | with hyperglycemia | | + + + + | 2022-07-08 00:00 | Type 1 diabetes mellitus | [facility] | | | with hyperglycemia | | + + + + | 2022-07-08 00:00 | Type 1 diabetes mellitus | [facility] | | | with hyperglycemia | | + + + + | 2022-07-08 00:00 | Type 1 diabetes mellitus | [facility] | | | with hyperglycemia | | [...] + + + | 2022-07-08 06:13 | GROUP HOME (CURRENT) USE OF | [facility] | | | INSULIN | | + + + + | 2022-07-08 06:13 | OTHER GROUP HOME (CURRENT) | [facility] | | | DRUG [...] + + + | 2022-07-09 06:20 | T[facility] (CURRENT) USE OF | [facility] | | | INSULIN | | + + + + | 2022-07-09 06:20 | OTHER TORCH [facility]URNER (CURRENT) | [facility] | | | DRUG [...] | 2022-07-12 00:00 | Upper gastrointestinal | [facility] | | | hemorrhage | | + + + + | 2022-07-12 00:00 | Upper gastrointestinal | [facility] | | | hemorrhage | | + + + + | 2022-07-12 00:00 | Upper gastrointestinal | [facility] | | | hemorrhage | | + [...] + + + | 2022-07-12 14:09 | TORCH [facility]URNER (CURRENT) USE OF | [facility] | | | INSULIN | | + + + + | 2022-07-12 14:09 | GROUP HOME (CURRENT) USE OF | [facility] | | [...] | 2022-07-24 00:00 | Postoperative hemorrhage | [facility] | + + + + | 2022-07-24 00:00 | Postoperative hemorrhage | [facility] | + + + + | 2022-07-24 00:00 | Postoperative hemorrhage | [facility] | + + + + | [...] + + + | 2022-07-24 19:22 | TORCH [facility] (CURRENT) USE OF | [facility] | | | INSULIN | | + + + + | 2022-07-24 19:22 | TORCH [facility]URNER (CURRENT) USE OF | [facility] | | | ORAL HYPOGLYCEMIC DRUGS | | + + + + | 2022-07-24 19:22 | OTHER [facility]UR[facility] (CURRENT) | [facility] | | | DRUG [...] + + + | 2022-07-27 16:29 | T[facility] (CURRENT) USE OF | [facility] | | | INSULIN | | + + + + | 2022-07-27 16:29 | GROUP HOME (CURRENT) USE OF | [facility] | | | ORAL HYPOGLYCEMIC DRUGS | | + + + + | 2022-07-27 16:29 | OTHER TOR[facility]URNER (CURRENT) | [facility] | | | DRUG [...] + + + | 2022-07-29 06:41 | GROUP HOME (CURRENT) USE OF | [facility] | | | INSULIN | | + + + + | 2022-07-29 06:41 | OTHER GROUP HOME (CURRENT) | [facility] | | | DRUG [...] | 2022-07-31 00:00 | Pneumonia | [facility] | + + + + | 2022-07-31 00:00 | Pneumonia | [facility] | + + + + | 2022-07-31 00:00 | Pneumonia | [facility] | + + + + | 2022-07-31 00:00 | Cyst of right ovary | [facility] | + + + + | 2022-07-31 00:00 | Cyst of right ovary | [facility] | + + + + | 2022-07-31 00:00 | Cyst of right ovary | [facility] | + + + + | 2022-07-31 [...] + + + | 2022-07-31 07:48 | T[facility] (CURRENT) USE OF | [facility] | | | INSULIN | | + + + + | 2022-07-31 07:48 | TORCH [facility] (CURRENT) USE OF | [facility] | | | ORAL HYPOGLYCEMIC DRUGS | | + + + + | 2022-07-31 07:48 | OTHER GROUP HOME (CURRENT) | [facility] | | | DRUG [...] + + | 2022-08-05 06:48 | OTHER GROUP HOME (CURRENT) | [facility] | | | DRUG [...] + + + | 2022-08-13 06:33 | [facility] (CURRENT) USE OF | [facility] | | | INSULIN | | + + + + | 2022-08-13 06:33 | TORCH [facility]UR[facility] (CURRENT) USE OF | [facility] | | | ORAL HYPOGLYCEMIC DRUGS | | + + + + | 2022-08-13 06:33 | OTHER GROUP HOME (CURRENT) | [facility] | | | DRUG [...] + + + | 2022-08-21 09:11 | GROUP HOME (CURRENT) USE OF | [facility] | | | INSULIN | | + + + + | 2022-08-21 09:11 | OTHER GROUP HOME (CURRENT) | [facility] | | | DRUG [...] 2022-08-31 00:00 | Peptic ulcer with | [facility] | | | hemorrhage | | + + + + | 2022-08-31 00:00 | Peptic ulcer with | [facility] | | | hemorrhage | | + [...] + + + | 2022-08-31 09:03 | GROUP HOME (CURRENT) USE OF | [facility] | | | INSULIN | | + + + + | 2022-08-31 09:03 | OTHER [facility]OR[facility]UR[facility] (CURRENT) | [facility] | | | DRUG [...] + | 2022-12-05 00:00 | Diarrhea | [facility] | + + + + Procedures + + + + | date | description | facility | + + + + | 2022-07-09 00:00 | INSERT INFUSION DEV IN R | [facility] | | | INT JUGULAR VEIN, PERC | | + + + + | 2021-07-18 00:00 | INSERTION OF INFUSION | [facility] | | | DEVICE INTO UPPER VEIN, | | | | PERC APPROACH | | + + + + | 2022-02-05 00:00 | EXCISION OF STOMACH, ENDO, | [facility] | | | DIAGN | | + + + + | 2021-08-11 00:00 | EXCISION OF ABD | [facility] | | | SUBCU/FASCIA, OPEN APPROACH | | | | | | + + + + | 2021-08-14 00:00 | REPAIR ABDOMEN | [facility] | | | SUBCUTANEOUS TISSUE AND | | | | FASCIA, OPEN APPROACH | | + + + + | 2022-07-22 00:00 | EXTRACTION OF ENDOMETRIUM, | [facility] | | | ENDO | | + + + + | 2022-07-09 00:00 | CONTROL BLEEDING IN | [facility] | | | GASTROINTESTINAL TRACT, | | [...] | BODY FLUID UREA NITROGEN | [facility] | | | | Specialties [...] Acute | | | PROTEIN/CREATININE RATIO | [address] | + + + + | 2021-07-20 00:00 | NON-STRESS TEST | [facility] | | | (HOSPITAL PERFORMED) | [address] | + + + + | 2021-07-21 00:00 | NON-STRESS TEST | [facility] | | | (HOSPITAL PERFORMED) | [address] | + + + + | 2021-07-23 00:00 | NON-STRESS TEST | [facility] | | | (HOSPITAL PERFORMED) | [address] | + + + + | [...] | URINALYSIS POC - EXTERNAL | [facility] | + + + + | [...] Children's Acute | | | | Care [address] [place] [address] | + + + + | 2021-07-29 00:00 | ANTIBODY SCREEN | [facility] | | | | Specialties | + + + + | 2021-07-23 00:00 | PREPARE RED BLOOD CELLS | [facility] | | | | Care [facility] | + + + + | [...] | INDICATED - IP ONLY | Care [facility] | + + + + | 2021-07-28 00:00 | _NISHI W MICROSCOPIC C/S IF | [facility] | | | INDICATED - IP ONLY | Specialties | + + + + | 2022-02-04 00:00 | TRANSFUSE NONAUT RED BLOOD | [facility] | | | CELLS IN PERIPH VEIN, [...] + | 2021-09-21 00:00 | Controlling BP; [facility] | [facility] | | | recent Diastolic BP < 80mm | | | | Hg | | + + + + | 2021-11-11 00:00 | Controlling BP; | [facility] | | | recent Diastolic BP < 80mm | | | | Hg | | + + + + | 2022-02-12 00:00 | Controlling BP; | [facility] | | | recent Diastolic BP < 80mm | | | | Hg | | + + + + | 2021-12-18 00:00 | Controlling BP; | [facility] | | | recent Diastolic BP btwn | | | | 80-89 mm Hg | | + + + + | 2022-02-23 00:00 | Controlling BP; Most | [facility]ann[facility] | | | [...] 00:00 | INSERT NON-TUNNEL CV CATH | [facility] | + + + + | 2022-07-09 00:00 | EGD CONTROL BLEEDING ANY | [facility] | + + + + | 2021-07-16 00:00 | MONITORING OF POC, CARDIAC | [facility] | | | RATE, ENVIRONMENTAL PROFESSIONAL APPROACH | | + + + + [...] | 2022-07-22 00:00 | HYSTEROSCOPY BIOPSY | [facility] | + + + + | 2021-07-20 [...] Acute | | | PANEL | Care [facility] | + + + + | 2021-07-23 00:00 | COMPREHENSIVE METABOLIC | [facility] | | | PANEL | Care 7th Floor | + + + + | 2021-07-24 00:00 | COMPREHENSIVE METABOLIC | [facility] | | | PANEL | Care 7th [facility] | + + + + | 2021-07-28 00:00 | COMPREHENSIVE METABOLIC | [facility] | | | PANEL | Specialties | + + + + | 2021-08-06 00:00 | COMPREHENSIVE METABOLIC | [facility] | | | PANEL | Department [...] | | | FETUS ULTRASOUND | Care [facility] | + + + + | [...] 1.010 | (missing) | (missing) | | [facility], | 22:21 | Women's | | | [...] 1.02 | (missing) | (missing) | | [facility] | 09:30:13 | Children's | | | [...] + | | 2021-07-19 | [facility] | 10.5 | % | (missing) | [...] + + + + +-------+------+ + | WA INTERVAL | 2021-07-21 | [facility] | 144 [...] + | T AXIS | 2021-07-21 | [facility] | 39 | (missing) | (missing) | [...] + | | 2021-07-22 | [facility] | 239 | mg/dL | [...] >=1.030 | (missing) | (missing) | | [facility] | 07:19:57 | Children's | | | [...] (missing) | | (unavailable | 17:36 | [facility] | | | [...] 1.02 | (missing) | (missing) | | [facility] | 19:00:04 | [facility] | | | [...] + | | 2021-07-28 | [facility] | [id number] | /ul | (missing) | | (unavailable [...] (missing) | | (unavailable | 19:52:52 | [facility] | | | [...] RVP PCR | 2021-07-28 | [facility] | INSIGHT LEADER Swab | (missing) | (missing) | | [...] (missing) | | (unavailable | 20:07 | [facility] | | | | | [...] (missing) | | (unavailable | 09:44 | [facility] | | | | | ) | [...] | (unavailable | 09:45 | [facility] | [phone] | | | | ) | | Hospital | 001 | | | + + + + + + + + + | Result panel 1719 | + + + + + + + + + | | 2022-02-04 | [facility] | | (missing) | (missing) | | (unavailable | 09:45 | [facility] | [phone] | | | | ) | | [...] | (unavailable | 09:45 | [facility] | [phone] | | | | ) | | Hospital | 001 | | | + + + + + + + + + | Result panel 1724 | + + + + + + + + + | | 2022-02-04 | [facility] | | (missing) | (missing) | | (unavailable | 09:45 | [facility] | [phone] | | | | ) | | [...] | (unavailable | 09:45 | [facility] | [phone] | | | | ) | | Hospital | 001 | | | + + + + + + + + + | Result panel 1731 | + + + + + + + + + | | 2022-02-04 | [facility] | | (missing) | (missing) | | (unavailable | 09:45 | [facility] | [phone] | | | | ) | | [...] (missing) | | (unavailable | 09:45 | [facility] | | | | | [...] | (unavailable | 09:45 | [facility] | [phone] | | | | ) | | Hospital | 001 | | | + + + + + + + + + | Result panel 1739 | + + + + + + + + + | | 2022-02-04 | [facility] | | (missing) | (missing) | | (unavailable | 09:45 | [facility] | [phone] | | | | ) | | [...] (missing) | | (unavailable | 06:26 | [facility] | | | | | [...] (missing) | | (unavailable | 06:26 | [facility] | | | | | ) | [...] (missing) | | (unavailable | 08:12 | [facility] | | | | | [...] (missing) | | (unavailable | 15:44:08 | [facility] | | | | | [...] (missing) | | (unavailable | 06:10:08 | [facility] | | | | | [...] (missing) | | (unavailable | 06:10:08 | [facility] | | | | | [...] | (unavailable | 08:00:07 | [facility] | [phone] | | | | ) | | Hospital | 00H | | | + + + + + + + + + | Result panel 2501 | + + + + + + + + + | | 2022-07-09 | [facility] | | (missing) | (missing) | | (unavailable | 08:00:07 | [facility] | [phone] | | | | ) | | Hospital | 00D | | | + + + + + + + + + | Result panel 2502 | + + + + + + + + + | | 2022-07-09 | [facility] | | (missing) | (missing) | | (unavailable | 08:00:07 | [facility] | [phone] | | | | ) | | Hospital | 00O | | | + + + + + + + + + | Result panel 2503 | + + + + + + + + + | | 2022-07-09 | [facility] | | (missing) | (missing) | | (unavailable | 08:00:07 | [facility] | [phone] | | | | ) | | Hospital | 00K | | | + + + + + + + + + | Result panel 2504 | + + + + + + + + + | | 2022-07-09 | [facility] | | (missing) | (missing) | | (unavailable | 08:00:07 | [facility] | [phone] | | | | ) | | [...] (missing) | | (unavailable | 08:00:07 | [facility] | | | | | [...] | (unavailable | 08:00:07 | [facility] | [phone] | | | | ) | | Hospital | 00H | | | + + + + + + + + + | Result panel 2511 | + + + + + + + + + | | 2022-07-09 | [facility] | | (missing) | (missing) | | (unavailable | 08:00:07 | [facility] | [phone] | | | | ) | | Hospital | 00D | | | + + + + + + + + + | Result panel 2512 | + + + + + + + + + | | 2022-07-09 | [facility] | | (missing) | (missing) | | (unavailable | 08:00:07 | [facility] | [phone] | | | | ) | | [facility] | 00O | | | + + + + + + + + + | Result panel 2513 | + + + + + + + + + | | 2022-07-09 | [facility] | | (missing) | (missing) | | (unavailable | 08:00:07 | [facility] | [phone] | | | | ) | | [facility] | 00K | | | + + + + + + + + + | Result panel 2514 | + + + + + + + + + | | 2022-07-09 | [facility] | | (missing) | (missing) | | (unavailable | 08:00:07 | [facility] | [phone] | | | | ) | | [...] | (unavailable | 08:00:07 | [facility] | [phone] | | | | ) | | [facility] | 00H | | | + + + + + + + + + | Result panel 252 | + + + + + + + + + | | 2022-07-09 | [facility] | | (missing) | (missing) | | (unavailable | 08:00:07 | [facility] | [phone] | | | | ) | | [facility] | 00D | | | + + + + + + + + + | Result panel 2522 | + + + + + + + + + | | 2022-07-09 | [facility] | | (missing) | (missing) | | (unavailable | 08::07 | [facility] | [phone] | | | | ) | | [facility] | 00O | | | + + + + + + + + + | Result panel 2523 | + + + + + + + + + | | 2022-07-09 | [facility] | | (missing) | (missing) | | (unavailable | 08:00:07 | [facility] | [phone] | | | | ) | | Hospital | 00K | | | + + + + + + + + + | Result panel 2524 | + + + + + + + + + | | 2022-07-09 | [facility] | | (missing) | (missing) | | (unavailable | 08:00:07 | [facility] | [phone] | | | | ) | | [...] | (unavailable | 08:00:07 | [facility] | [phone] | | | | ) | | Hospital | 00H | | | + + + + + + + + + | Result panel 2531 | + + + + + + + + + | | 2022-07-09 | [facility] | | (missing) | (missing) | | (unavailable | 08:00:07 | [facility] | [phone] | | | | ) | | Hospital | 00D | | | + + + + + + + + + | Result panel 2532 | + + + + + + + + + | | 2022-07-09 | [facility] | | (missing) | (missing) | | (unavailable | 08:00:07 | [facility] | [phone] | | | | ) | | Hospital | 00O | | | + + + + + + + + + | Result panel 2533 | + + + + + + + + + | | 2022-07-09 | [facility] | | (missing) | (missing) | | (unavailable | 08:00:07 | [facility] | [phone] | | | | ) | | Hospital | 00K | | | + + + + + + + + + | Result panel 2534 | + + + + + + + + + | | 2022-07-09 | [facility] | | (missing) | (missing) | | (unavailable | 08:00:07 | [facility] | [phone] | | | | ) | | [...] | (unavailable | 08:00:07 | [facility] | [phone] | | | | ) | | Hospital | 00H | | | + + + + + + + + + | Result panel 2541 | + + + + + + + + + | | 2022-07-09 | [facility] | | (missing) | (missing) | | (unavailable | 08:00:07 | [facility] | [phone] | | | | ) | | Hospital | 00D | | | + + + + + + + + + | Result panel 2542 | + + + + + + + + + | | 2022-07-09 | [facility] | | (missing) | (missing) | | (unavailable | 08:00:07 | [facility] | [phone] | | | | ) | | Hospital | 00O | | | + + + + + + + + + | Result panel 2543 | + + + + + + + + + | | 2022-07-09 | [facility] | | (missing) | (missing) | | (unavailable | 08:00:07 | [facility] | [phone] | | | | ) | | Hospital | 00K | | | + + + + + + + + + | Result panel 2544 | + + + + + + + + + | | 2022-07-09 | [facility] | | (missing) | (missing) | | (unavailable | 08:00:07 | [facility] | [phone] | | | | ) | | [...] | (unavailable | 08:00:07 | [facility] | [phone] | | | | ) | | Hospital | 00H | | | + + + + + + + + + | Result panel 2551 | + + + + + + + + + | | 2022-07-09 | [facility] | | (missing) | (missing) | | (unavailable | 08:00:07 | [facility] | [phone] | | | | ) | | Hospital | 00D | | | + + + + + + + + + | Result panel 2552 | + + + + + + + + + | | 2022-07-09 | [facility] | | (missing) | (missing) | | (unavailable | 08:00:07 | [facility] | [phone] | | | | ) | | Hospital | 00O | | | + + + + + + + + + | Result panel 2553 | + + + + + + + + + | | 2022-07-09 | [facility] | | (missing) | (missing) | | (unavailable | 08:00:07 | [facility] | [phone] | | | | ) | | Hospital | 00K | | | + + + + + + + + + | Result panel 2554 | + + + + + + + + + | | 2022-07-09 | [facility] | | (missing) | (missing) | | (unavailable | 08:00:07 | [facility] | [phone] | | | | ) | | [...] | (unavailable | 08:00:08 | [facility] | [phone] | | | | ) | | Hospital | 00H | | | + + + + + + + + + | Result panel 2565 | + + + + + + + + + | | 2022-07-09 | [facility] | | (missing) | (missing) | | (unavailable | 08:00:08 | [facility] | [phone] | | | | ) | | Hospital | 00D | | | + + + + + + + + + | Result panel 2566 | + + + + + + + + + | | 2022-07-09 | [facility] | | (missing) | (missing) | | (unavailable | 08:00:08 | [facility] | [phone] | | | | ) | | Hospital | 00O | | | + + + + + + + + + | Result panel 2567 | + + + + + + + + + | | 2022-07-09 | [facility] | | (missing) | (missing) | | (unavailable | 08:00:08 | [facility] | [phone] | | | | ) | | Hospital | 00K | | | + + + + + + + + + | Result panel 2568 | + + + + + + + + + | | 2022-07-09 | [facility] | | (missing) | (missing) | | (unavailable | 08:00:08 | [facility] | [phone] | | | | ) | | [...] (missing) | | (unavailable | 05:25:08 | [facility] | | | | | [...] (missing) | | (unavailable | 18:26:07 | [facility] | | | | | [...] (missing) | | (unavailable | 07:48:07 | [facility] | | | | | [...] (missing) | | (unavailable | 07:48:07 | [facility] | | | | | [...] (missing) | | (unavailable | 07:48:07 | [facility] | | | | | [...] (missing) | | (unavailable | 07:00:07 | [facility] | | | | | [...] 00:00 | Unknown if ever smoked | [facility] | | | | | + + + + | 2021-12-21 00:00 | Unknown if ever smoked | [facility] | | | | | + + + + | 2022-02-15 00:00 | Unknown if ever smoked | [facility] | | | | | + + + + | 2022-02-24 00:00 | Unknown if ever smoked | [facility] | | | | | + + + + | 2022-06-22 00:00 | Unknown if ever smoked | [facility] | | | | [...]
[~2022-12-07 09:23] MED LIST changes: +PRILOSEC OTC20 MG PO; +PROCHLORPERAZIN10 MG PO
--- OUTSIDE RECORDS SUMMARY | 2022-12-07 09:26 | XMS ---
PreManage Notification: SHAMEKA LEE Security Asset Coordinator Events No recent Security Events currently on file CRITERIA MET - 6 ED Visits in 6 Months - [facility] - [facility] - 2 Visits in 30 Days CARE PROVIDERS -Naty- Dentist: Chrome Tanner [facility] PHONE: [phone] KYAW LOPES Director Security Risk Management 08/06/2021-Current PHONE: [phone] Dior Curran Counselor: Mental Health Current PHONE: [phone] OMARI Osborn [facility] 06/08/2021-Current PHONE: [phone] Heydi has no Care Guidelines for this patient. Care History Medical/Surgical 01/25/2020 [facility] - PATIENT IS CURRENTLY WORKING WITH [employer]- POINT OF CONTACT IS JOSE GUADALUPE HERNANDEZ- [phone] - JOSE GUADALUPE IS AWARE THAT PATIENT DOES NOT HAVE A PCP AND IS AWARE OF THE CLINIC RESOURCES IN [place]OWN SHE WILL WORK WITH PATIENT TO SET UP A PCP. Behavioral 02/02/2019 [facility] Client is established with [facility] Cj with Dior Curran. Her Team has been unable to contact her, please have her reach out to schedule and call us to give us her updated phone number.\T\ nbsp; E.D. VISIT COUNT (12 MO.) 1 [facility] 24 [facility] TOTAL 25 NOTE: Visits indicate total known visits. ED/UCC VISIT TRACKING (12 MO.) 12/07/2022 09:24 [facility] [place] TYPE: Emergency COMPLAINT: - ABD PAIN, V/D 12/05/2022 09:53 [facility] [place] TYPE: Emergency COMPLAINT: - ABD PAIN 08/31/2022 09:03 [facility] [place] TYPE: Emergency COMPLAINT: - ABD PAIN, VOMITING BLOOD DIAGNOSES: - Allergy status to other drugs, medicaments and biological substances - Chronic or unspecified peptic ulcer, site unspecified, with hemorrhage - Hyperlipidemia, unspecified - joint terminal attack controller (current) use of insulin - Nicotine dependence, cigarettes, uncomplicated - Nicotine dependence, unspecified, uncomplicated - Other nursing home (current) drug therapy - Other nonmedicinal substance allergy status - Type 2 diabetes mellitus without complications - Unspecified asthma, uncomplicated - Vomiting, unspecified 08/21/2022 09:11 [facility] [place] TYPE: Emergency COMPLAINT: - ABDOM PAIN, VOMITING, DIARRHEA DIAGNOSES: - Allergy status to other drugs, medicaments and biological substances - Hyperlipidemia, unspecified - joint terminal attack controller (current) use of insulin - Nausea with vomiting, unspecified - Nicotine dependence, unspecified, uncomplicated - Other nursing home (current) drug therapy - Other nonmedicinal substance allergy status - Right lower quadrant pain - Type 2 diabetes mellitus with hyperglycemia - Unspecified asthma, uncomplicated 08/13/2022 06:33 [facility] TYPE: Emergency COMPLAINT: - ABD PAIN, VOMITING DIAGNOSES: - Allergy status to other drugs, medicaments and biological substances - Chronic obstructive pulmonary disease, unspecified - Hyperlipidemia, unspecified - longterm (current) use of insulin - joint terminal attack controller (current) use of oral hypoglycemic drugs - Other nursing home (current) drug therapy - Other nonmedicinal substance allergy status - Type 2 diabetes mellitus with hyperglycemia - Unspecified abdominal pain - Unspecified asthma, uncomplicated - Vomiting, unspecified 08/05/2022 06:48 [facility] TYPE: Emergency COMPLAINT: - ABD PAIN, VOMITING BLOOD DIAGNOSES: - Allergy status to other drugs, medicaments and biological substances - Gastrointestinal hemorrhage, unspecified - Hyperlipidemia, unspecified - Nausea with vomiting, unspecified - Nicotine dependence, unspecified, uncomplicated - Other nursing home (current) drug therapy - Other nonmedicinal substance allergy status - Pneumonia, unspecified organism - Type 2 diabetes mellitus without complications - Unspecified asthma, uncomplicated 07/31/2022 07:48 [facility] TYPE: Emergency COMPLAINT: - FEVER DIAGNOSES: - Allergy status to other drugs, medicaments and biological substances - Fever, unspecified - Hyperlipidemia, unspecified - longterm (current) use of insulin - joint terminal attack controller (current) use of oral hypoglycemic drugs - Nicotine dependence, unspecified, uncomplicated - Other buttermaker continuous churn (current) drug therapy - Other nonmedicinal substance allergy status - Pneumonia, unspecified organism - Type 2 diabetes mellitus without complications - Unspecified asthma, uncomplicated - Unspecified ovarian cyst, right side 07/29/2022 06:41 [facility] TYPE: Emergency COMPLAINT: - ABD PAIN, VOMITING DIAGNOSES: - Allergy status to other drugs, medicaments and biological substances - Hyperlipidemia, unspecified - joint terminal attack controller (current) use of insulin - Nausea with vomiting, unspecified - Nicotine dependence, unspecified, uncomplicated - Other buttermaker continuous churn (current) drug therapy - Other nonmedicinal substance allergy status - Other ovarian cyst, right side - Type 2 diabetes mellitus without complications - Unspecified asthma, uncomplicated 07/27/2022 16:29 [facility] TYPE: Emergency COMPLAINT: - VOMITING BLOOD DIAGNOSES: - Allergy status to other drugs, medicaments and biological substances - Hyperlipidemia, unspecified - longterm (current) use of insulin - joint terminal attack controller (current) use of oral hypoglycemic drugs - Nausea with vomiting, unspecified - Nicotine dependence, unspecified, uncomplicated - Other buttermaker continuous churn (current) drug therapy - Other nonmedicinal substance allergy status - Type 2 diabetes mellitus without complications - Unspecified abdominal pain - Unspecified asthma, uncomplicated 07/24/2022 19:22 [facility] TYPE: Emergency COMPLAINT: - VAGINAL BLEEDING AFTER PROCEDURE DIAGNOSES: - Allergy status to other drugs, medicaments and biological substances - Hyperlipidemia, unspecified - joint terminal attack controller (current) use of insulin - joint terminal attack controller (current) use of oral hypoglycemic drugs - Nicotine dependence, unspecified, uncomplicated - Other nursing home (current) drug therapy - Other nonmedicinal substance allergy status - Postprocedural hemorrhage of a genitourinary system organ or structure following a genitourinary system procedure - Type 2 diabetes mellitus without complications - Unspecified asthma, uncomplicated 07/12/2022 14:08 [facility] TYPE: Emergency COMPLAINT: - COUGHING UP BLOOD, DIZZINESS 07/09/2022 06:19 [facility] TYPE: Emergency COMPLAINT: - BLACK TARRY STOOL, ABD PAIN, LIGHT HEADED 07/08/2022 06:13 [facility] TYPE: Emergency COMPLAINT: - VOMITING BLOOD DIAGNOSES: - Allergy status to other drugs, medicaments and biological substances - Contact with and (suspected) exposure to COVID-19 - Dehydration - Hyperlipidemia, unspecified - joint terminal attack controller (current) use of insulin - Nicotine dependence, unspecified, uncomplicated - Other buttermaker continuous churn (current) drug therapy - Other nonmedicinal substance allergy status - Type 1 diabetes mellitus with hyperglycemia - Unspecified asthma, uncomplicated - Urinary tract infection, site not specified - Vomiting, unspecified 06/19/2022 05:43 [facility] TYPE: Emergency COMPLAINT: - ABD PAIN AND HEART RACING DIAGNOSES: - Allergy status to other drugs, medicaments and biological substances - Hyperlipidemia, unspecified - joint terminal attack controller (current) use of insulin - joint terminal attack controller (current) use of oral hypoglycemic drugs - Nicotine dependence, unspecified, uncomplicated - Other buttermaker continuous churn (current) drug therapy - Other nonmedicinal substance allergy status - Precordial pain - Type 2 diabetes mellitus without complications - Unspecified abdominal pain - Unspecified asthma, uncomplicated - Urinary tract infection, site not specified 06/08/2022 06:42 [facility] TYPE: Emergency COMPLAINT: - ABD/BACK PAIN DIAGNOSES: - Allergy status to other drugs, medicaments and biological substances - Gastritis, unspecified, without bleeding - Hyperlipidemia, unspecified - Left upper quadrant pain - longterm (current) use of insulin - Nicotine dependence, unspecified, uncomplicated - Other buttermaker continuous churn (current) drug therapy - Other nonmedicinal substance allergy status - Type 2 diabetes mellitus with hyperglycemia - Unspecified asthma, uncomplicated 04/28/2022 11:49 [facility] [place] TYPE: Emergency DIAGNOSES: - joint terminal attack controller (current) use of insulin - Procedure and treatment not carried out due to patient leaving prior to being seen by health care provider - Type 2 diabetes mellitus with hyperglycemia 04/19/2022 13:10 [facility] TYPE: Emergency COMPLAINT: - ABD/LOWER BACK PAIN, N/V DIAGNOSES: - Allergy status to other drugs, medicaments and biological substances - Hyperlipidemia, unspecified - Left lower quadrant pain - joint terminal attack controller (current) use of insulin - Nicotine dependence, unspecified, uncomplicated - Other nursing home (current) drug therapy - Other nonmedicinal substance allergy status - Right lower quadrant pain - Type 2 diabetes mellitus with hyperglycemia - Unspecified asthma, uncomplicated 04/12/2022 09:32 [facility] TYPE: Emergency COMPLAINT: - ABD PAIN, VOMITING, BLACK STOOL DIAGNOSES: - Allergy status to other drugs, medicaments and biological substances - Contact with and (suspected) exposure to COVID-19 - Hyperlipidemia, unspecified - joint terminal attack controller (current) use of insulin - Nausea with vomiting, unspecified - Nicotine dependence, unspecified, uncomplicated - Other nursing home (current) drug therapy - Other nonmedicinal substance allergy status - Other specified diabetes mellitus without complications - Unspecified abdominal pain - Unspecified asthma, uncomplicated - Urinary tract infection, site not specified 02/28/2022 06:12 [facility] TYPE: Emergency COMPLAINT: - ABDOMINAL PAIN DIAGNOSES: - Allergy status to other drugs, medicaments and biological substances - Contact with and (suspected) exposure to COVID-19 - Hyperlipidemia, unspecified - Left upper quadrant pain - joint terminal attack controller (current) use of insulin - longterm (current) use of oral hypoglycemic drugs - Nausea with vomiting, unspecified - Nicotine dependence, unspecified, uncomplicated - Other nursing home (current) drug therapy - Other nonmedicinal substance allergy status - Type 1 diabetes mellitus without complications - Unspecified abdominal pain 02/19/2022 08:04 [facility] TYPE: Emergency COMPLAINT: - ABD PAIN DIAGNOSES: - Allergy status to other drugs, medicaments and biological substances - Anemia, unspecified - Hyperlipidemia, unspecified - Left lower quadrant pain - joint terminal attack controller (current) use of insulin - Nicotine dependence, unspecified, uncomplicated - Other nursing home (current) drug therapy - Other nonmedicinal substance allergy status - Type 2 diabetes mellitus with hyperglycemia - Unspecified asthma, uncomplicated - Unspecified ovarian cyst, left side Plus 5 More Visits INPATIENT VISIT TRACKING (12 MO.) 07/12/2022 14:09 [facility] TYPE: Observation COMPLAINT: - UPPER GI BLEED DIAGNOSES: - Allergy status to other antibiotic agents - Allergy status to other drugs, medicaments and biological substances - Contact with and (suspected) exposure to COVID-19 - Hyperlipidemia, unspecified - Hypomagnesemia - joint terminal attack controller (current) use of insulin - joint terminal attack controller (current) use of oral hypoglycemic drugs - Nicotine dependence, unspecified, uncomplicated - Type 2 diabetes mellitus with hyperglycemia - Urinary tract infection, site not specified 07/09/2022 06:20 [facility] TYPE: Observation COMPLAINT: - GI BLEED DIAGNOSES: - Acute posthemorrhagic anemia - Allergy status to other drugs, medicaments and biological substances - Bipolar disorder, unspecified - Chronic or unspecified gastric ulcer with hemorrhage - Hematemesis - Hyperlipidemia, unspecified - Hypothyroidism, unspecified - joint terminal attack controller (current) use of insulin - Nicotine dependence, cigarettes, uncomplicated - Nicotine dependence, unspecified, uncomplicated - Other nursing home (current) drug therapy - Other nonmedicinal substance allergy status - Type 2 diabetes mellitus without complications 06/15/2022 07:12 [facility] TYPE: Observation COMPLAINT: - DKA DIAGNOSES: - Allergy status to other drugs, medicaments and biological substances - Anxiety disorder, unspecified - Bipolar disorder, unspecified - Chest pain, unspecified - Contact with and (suspected) exposure to COVID-19 - Gastro-esophageal reflux disease without esophagitis - Hyperlipidemia, unspecified - Hypomagnesemia - Hypothyroidism, unspecified - joint terminal attack controller (current) use of insulin - Nicotine dependence, unspecified, uncomplicated - Other buttermaker continuous churn (current) drug therapy - Type 2 diabetes mellitus with hyperglycemia - Type 2 diabetes mellitus with ketoacidosis without coma - Unspecified asthma, uncomplicated 02/04/2022 11:[address] [facility] TYPE: Medical Surgical COMPLAINT: - ACUTE GI BLEED DIAGNOSES: - Acquired absence of other specified parts of digestive tract - Acquired absence of other specified parts of digestive tract - Acute posthemorrhagic anemia - Acute posthemorrhagic anemia - Allergy status to other antibiotic agents - Allergy status to other antibiotic agents - Allergy status to other drugs, medicaments and biological substances - Allergy status to other drugs, medicaments and biological substances - Anxiety disorder, unspecified - Anxiety disorder, unspecified - Bipolar disorder, unspecified - Bipolar disorder, unspecified - Contact with and (suspected) exposure to COVID-19 - Contact with and (suspected) exposure to COVID-19 - Gastrointestinal hemorrhage, unspecified - Hyperlipidemia, unspecified - Hyperlipidemia, unspecified - Hypothyroidism, unspecified - Hypothyroidism, unspecified - Latex allergy status - Latex allergy status - Nicotine dependence, unspecified, uncomplicated - Nicotine dependence, unspecified, uncomplicated - Other chronic pain - Other chronic pain - Other specified postprocedural states - Other specified postprocedural states - Type 2 diabetes mellitus without complications - Type 2 diabetes mellitus without complications - Unspecified asthma, uncomplicated - Unspecified asthma, uncomplicated [email or web address]
[2022-12-07] MEDS ORDERED: CEPHALEXIN500 M1 PO (13:23)
[2022-12-07 13:47] VITALS: BP 127/96
== END 2022-12-07 13:45 | disposition home or self-care (01) ==
LOC: ED 09:23
DX: N39.0 Urinary tract infection, site not specified (principal); E87.6 Hypokalemia; E11.9 Type 2 diabetes mellitus without complications; E78.5 Hyperlipidemia, unspecified; J45.909 Unspecified asthma, uncomplicated; F17.200 Nicotine dependence, unspecified, uncomplicated; Z88.8 Allergy status to other drugs, medicaments and biological substances; Z91.048 Other nonmedicinal substance allergy status; Z79.899 Other long term (current) drug therapy
CPT/HCPCS: 36415; 80053; 81001; 83690; 84703; 85025; 96365; 96375; 99284-25; A9270; J0696; J1170; J2405; J7030

== ENCOUNTER 2023-02-15 08:22 | Inpatient (IN) | payer MEDICARE, OTHER ==
[~2023-02-15] VITALS: Ht 165.1 cm; Wt 89.0 kg
--- OUTSIDE RECORDS SUMMARY | 2023-02-15 08:29 | XMS ---
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 06/08/2021-Current PHONE: [phone] -, Naty- Dentist: [employer] [facility] Molder [facility] PHONE: [phone] Dior Curran Counselor: Mental Health Current PHONE: [phone] Heydi has no Care Guidelines for this patient. Care History Medical/Surgical 01/25/2020 [facility] - PATIENT IS CURRENTLY WORKING WITH [employer]- POINT OF CONTACT IS JOSE GUADALUPE HERNANDEZ- [phone] - JOSE GUADALUPE IS AWARE THAT PATIENT DOES NOT HAVE A PCP AND IS AWARE OF THE CLINIC RESOURCES IN [place] SHE WILL WORK WITH PATIENT TO SET UP A PCP. Behavioral 02/02/2019 [facility] - O[facility] Client is established with [facility] Cj with Dior Curran. Her Team has been unable to contact her, please have her reach out to schedule and call us to give us her updated phone number.\T\ nbsp; E.D. VISIT COUNT (12 MO.) [address] [facility] (Mavis Gamble) TOTAL 21 NOTE: Visits indicate total known visits. ED/UCC VISIT TRACKING (12 MO.) 02/15/2023 08:23 [facility] TYPE: Emergency COMPLAINT: - ABD PAIN, VOMITING BLOOD 12/07/2022 09:24 [facility] TYPE: Emergency COMPLAINT: - ABD PAIN, V/D DIAGNOSES: - Allergy status to other drugs, medicaments and biological substances - Hyperlipidemia, unspecified - Hypokalemia - Nicotine dependence, unspecified, uncomplicated - Other medical terminologist (current) drug therapy - Other nonmedicinal substance allergy status - Right lower quadrant pain - Type 2 diabetes mellitus without complications - Unspecified abdominal pain - Unspecified asthma, uncomplicated - Urinary tract infection, site not specified 12/05/2022 09:53 [facility] TYPE: Emergency COMPLAINT: - ABD PAIN DIAGNOSES: - Allergy status to other drugs, medicaments and biological substances - Diarrhea, unspecified - 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 - ferry terminal supervisor (current) use of oral hypoglycemic drugs - Nicotine dependence, unspecified, uncomplicated - Other medical terminologist (current) drug therapy - Other nonmedicinal substance allergy status - Type 2 diabetes mellitus without complications - Unspecified abdominal pain - Unspecified asthma, uncomplicated 08/31/2022 09:03 [facility] TYPE: Emergency COMPLAINT: - ABD PAIN, VOMITING BLOOD DIAGNOSES: - Allergy status to other drugs, medicaments and biological substances - Chronic or unspecified peptic ulcer, site unspecified, with hemorrhage - Hyperlipidemia, unspecified - MCC (current) use of insulin - Nicotine dependence, cigarettes, uncomplicated - Nicotine dependence, unspecified, uncomplicated - Other medical terminologist (current) drug therapy - Other nonmedicinal substance allergy status - Type 2 diabetes mellitus without complications - Unspecified asthma, uncomplicated - Vomiting, unspecified 08/21/2022 09:11 [facility] TYPE: Emergency COMPLAINT: - ABDOM PAIN, VOMITING, DIARRHEA DIAGNOSES: - Allergy status to other drugs, medicaments and biological substances - Hyperlipidemia, unspecified - MCC (current) use of insulin - Nausea with vomiting, unspecified - Nicotine dependence, unspecified, uncomplicated - Other medical terminologist (current) drug therapy - Other nonmedicinal substance allergy status - Right lower quadrant pain - Type 2 diabetes mellitus with hyperglycemia - Unspecified asthma, uncomplicated 08/13/2022 06:33 [facility] TYPE: Emergency COMPLAINT: - ABD PAIN, VOMITING DIAGNOSES: - Allergy status to other drugs, medicaments and biological substances - Chronic obstructive pulmonary disease, unspecified - Hyperlipidemia, unspecified - 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 - MCC (current) use of oral hypoglycemic drugs - Other fdc (current) drug therapy - Other nonmedicinal substance [...] - Nicotine dependence, unspecified, uncomplicated - Other fdc (current) drug therapy - Other nonmedicinal substance allergy status - Pneumonia, unspecified organism - Type 2 diabetes mellitus without complications - Unspecified asthma, uncomplicated 07/31/2022 07:48 [facility] TYPE: Emergency COMPLAINT: - FEVER DIAGNOSES: - Allergy status to other drugs, medicaments and biological substances - Fever, unspecified - Hyperlipidemia, unspecified - MCC (current) use of insulin - MCC (current) use of oral hypoglycemic drugs - Nicotine dependence, unspecified, uncomplicated - Other medical terminologist (current) drug therapy - Other nonmedicinal substance allergy status - Pneumonia, unspecified organism - Type 2 diabetes mellitus without complications - Unspecified asthma, uncomplicated - Unspecified ovarian cyst, right side [facility] COMPLAINT: - ABD PAIN, VOMITING DIAGNOSES: - Allergy status to other drugs, medicaments and biological substances - Hyperlipidemia, unspecified - MCC (current) use of insulin - Nausea with vomiting, unspecified - Nicotine dependence, unspecified, uncomplicated - Other medical terminologist (current) drug therapy - Other nonmedicinal substance allergy status - Other ovarian cyst, right side - Type 2 diabetes mellitus without complications - Unspecified asthma, uncomplicated 07/27/2022 16:[address] 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 (current) use of oral hypoglycemic drugs - Nausea with vomiting, unspecified - Nicotine dependence, unspecified, uncomplicated - Other medical terminologist (current) drug therapy - Other nonmedicinal substance allergy status - Type 2 diabetes mellitus without complications - Unspecified abdominal pain - Unspecified asthma, uncomplicated 07/24/2022 19:22 [facility] TYPE: Emergency COMPLAINT: - VAGINAL BLEEDING AFTER PROCEDURE DIAGNOSES: - Allergy status to other drugs, medicaments and biological substances - Hyperlipidemia, unspecified - MCC (current) use of insulin - ferry terminal supervisor (current) use of oral hypoglycemic drugs - Nicotine dependence, unspecified, uncomplicated - Other medical terminologist (current) drug therapy - Other nonmedicinal substance [...] COVID-19 - Dehydration - Hyperlipidemia, unspecified - MCC (current) use of insulin - Nicotine dependence, unspecified, uncomplicated - Other fdc (current) drug therapy - Other nonmedicinal substance allergy status - Type 1 diabetes mellitus with hyperglycemia - Unspecified asthma, uncomplicated - Urinary tract infection, site not specified - Vomiting, unspecified 06/19/2022 05:43 [facility] TYPE: Emergency COMPLAINT: - ABD PAIN AND HEART RACING DIAGNOSES: - Allergy status to other drugs, medicaments and biological substances - Hyperlipidemia, unspecified - MCC (current) use of insulin - ferry terminal supervisor (current) use of oral hypoglycemic drugs - Nicotine dependence, unspecified, uncomplicated - Other fdc (current) drug therapy - Other nonmedicinal substance [...] unspecified - Left upper quadrant pain - 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 - Nicotine dependence, unspecified, uncomplicated - Other fdc (current) drug therapy - Other nonmedicinal substance allergy status - Type 2 diabetes mellitus with hyperglycemia - Unspecified asthma, uncomplicated [facility] DIAGNOSES: - 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 - Procedure and treatment not carried out due to patient leaving prior to being seen by health care provider - Type 2 diabetes mellitus with hyperglycemia 04/19/2022 13:10 [facility] TYPE: Emergency COMPLAINT: - ABD/LOWER BACK PAIN, N/V DIAGNOSES: - Allergy status to other drugs, medicaments and biological substances - Hyperlipidemia, unspecified - Left lower quadrant pain - 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 - Nicotine dependence, unspecified, uncomplicated - Other fdc (current) drug therapy - Other nonmedicinal substance allergy status - Right lower quadrant pain - Type 2 diabetes mellitus with hyperglycemia - Unspecified asthma, uncomplicated 04/12/2022 09:32 [facility] TYPE: Emergency COMPLAINT: - ABD PAIN, VOMITING, BLACK STOOL DIAGNOSES: - Allergy status to other drugs, medicaments and biological substances - Contact with and (suspected) exposure to COVID-19 - Hyperlipidemia, unspecified - MCC (current) use of insulin - Nausea with vomiting, unspecified - Nicotine dependence, unspecified, uncomplicated - Other fdc (current) drug therapy - Other nonmedicinal substance allergy status - Other specified diabetes mellitus without complications - Unspecified abdominal pain - Unspecified asthma, uncomplicated - Urinary tract infection, site not specified 02/28/2022 06:[address] [facility] [place] TYPE: Emergency COMPLAINT: - ABDOMINAL PAIN DIAGNOSES: - Allergy status to other drugs, medicaments and biological substances - Contact with and (suspected) exposure to COVID-19 - Hyperlipidemia, unspecified - Left upper quadrant pain - MCC (current) use of insulin - ferry terminal supervisor (current) use of oral hypoglycemic drugs - Nausea with vomiting, unspecified - Nicotine dependence, unspecified, uncomplicated - Other fdc (current) drug therapy - Other nonmedicinal substance allergy status - Type 1 diabetes mellitus without complications - Unspecified abdominal pain Plus 1 More Visit INPATIENT VISIT TRACKING (12 MO.) 07/12/2022 14:09 [facility] TYPE: Observation COMPLAINT: - UPPER GI BLEED DIAGNOSES: - Allergy status to other antibiotic agents - Allergy status to other drugs, medicaments and biological substances - Contact with and (suspected) exposure to COVID-19 - Hyperlipidemia, unspecified - Hypomagnesemia - 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 - ferry terminal supervisor (current) use of oral hypoglycemic drugs - [...] - Hyperlipidemia, unspecified - Hypothyroidism, unspecified - MCC (current) use of insulin - Nicotine dependence, cigarettes, uncomplicated - Nicotine dependence, unspecified, uncomplicated - Other fdc (current) drug therapy - Other nonmedicinal substance [...] unspecified - Hypomagnesemia - Hypothyroidism, unspecified - MCC (current) use of insulin - Nicotine dependence, unspecified, uncomplicated - Other fdc (current) drug therapy - Type 2 diabetes mellitus with hyperglycemia - Type 2 diabetes mellitus with ketoacidosis without coma - Unspecified asthma, uncomplicated [email or web address]
[2023-02-15 08:54] LABS: BILIRUBIN, URINE NEGATIVE (negative); BLOOD/HGB, URINE TRACE-I (Negative); KETONE, URINE SMALL (Negative); LEUK ESTERASE, URINE NEGATIVE (negative); NITRITE, URINE POSITIVE (negative)
[2023-02-15 09:02] LABS: BACTERIA, URINE 2+ /hpf (negative); CASTS, URINE NONE SEEN \\lpf; COLLECTION TYPE, URINE CLEAN CATCH; CRYSTALS, URINE NONE SEEN (0-1+); EPITHELIAL CELLS, URINE SQUAMOUS 3+ /lpf (0-1+); REFLEX CULTURE, URINE No (No); WHITE BLOOD CELLS, URINE 0-1 /HPF (0-5)
[2023-02-15 09:14] LABS: MCH 29.8 (27-36); PLATELET COUNT 205 K/uL (140-440); RDW 13.8 (10.5-15.0)
[2023-02-15 09:28] LABS: ALBUMIN 2.9 g/dL (3.4-5.0); ALBUMIN/GLOBULIN RATIO 0.73 (1.1-2.4); BILIRUBIN, TOTAL 1.7 ng/dL (0.2-1.0); CALCIUM 6.5 mg/dL (8.5-10.1)
[2023-02-15 10:21] LABS: HEMATOCRIT 39.3 % (35.0-50.0); HEMOGLOBIN 13.4 g/dL (12.0-18.0)
[2023-02-15 10:22] LABS: MCHC 34.1 g/dl (30-36); RBC 4.96 M/ul (4.3-5.7)
[2023-02-15 10:28] LABS: BUN/CREATININE RATIO 22.53 (6.0-28.6); CREATININE, SERUM 0.71 mg/dL (0.55-1.02); PROTEIN, TOTAL 7.6 g/dL (6.4-8.2)
[2023-02-15 10:37] LABS: BANDS, MANUAL DIFF 3; BASOPHILS, MANUAL DIFF 0; EOSINOPHILS, MANUAL DIFF 0; LYMPHOCYTES, MANUAL DIFF 23; MONOCYTES, MANUAL DIFF 8; NEUTROPHILS, MANUAL DIFF 66
[2023-02-15 11:55] LABS: INFLUENZA B NAA NEGATIVE (NEGATIVE); RESPIRATORY SYNCYTIAL VIR NAA NEGATIVE (NEGATIVE)
[2023-02-15 12:26] VITALS: BP 133/84
[2023-02-15 12:38] LABS: CHOLESTEROL/HDL RATIO 9.6; HDL CHOLESTEROL 45 (40-60)
--- NOTE | 2023-02-15 12:39 | NUR ---
PT ARRIVED VIA STRETCHER WITH CHAPIS CERON FROM ER. PT IS A&O X4. REPORT RECEIVED FROM CHAPIS CERON. LUNCH TRAY AT BEDSIDE, PT STATES SHE IS HUNGRY AND IS EATING LUNCH WITHOUT ISSUE. PT DENIES PAIN AT THIS TIME. IV DOCUMENTED IN RUE, HOWEVER, IT IS IN HER LEFT UPPER EXTREMITY. BOTH SITES FLUSH WELL WITH GOOD RETURN. CALL LIGHT IN REACH, SCDS ON, IS INSTRUCTIONS PROVIDED. PT EDU ON MENU FOR HER DIET AND WHEN TO CALL KITCHEN.
[2023-02-15 12:45] LABS: TRIGLYCERIDES 2489 ng/dL (<150)
[2023-02-15 12:46] LABS: CHOLESTEROL 433 mg/dL (<200)
--- NOTE | 2023-02-15 13:44 | NUR ---
PATIENT AMBULATING HALLS WITH IV POLE. DIET SPRITE PROVIDED PER REQUEST.
--- NOTE | 2023-02-15 13:50 | NUR ---
PT HAS BEEN AMBULATING THE HALLWAYS, NON-STOP, AND TALKING ON HER PHONE, SINCE ADMISSION.
[2023-02-15] MEDS ORDERED: BENZTROPINE ME0.5 MG PO (14:00)
[2023-02-15] MEDS ORDERED: PRAZOSIN HCL2 MG PO (14:02)
[2023-02-15] MEDS ORDERED: VENTOLIN HFA18 GM INH (14:05)
[2023-02-15] MEDS ORDERED: OMEPRAZOLE40 MG PO (14:08)
--- NOTE | 2023-02-15 14:14 | NUR ---
VAULT ATTENDANT ADVISED THAT PT REQUESTED PAIN MEDICATION.
[2023-02-15 14:24] VITALS: BP 122/85
--- NOTE | 2023-02-15 14:29 | NUR ---
PATIENT SITTING UP ON EDGE OF BED TALKING WITH PHARMACY. VITALS AND I&O'S CHARTED. CALL LIGHT IN REACH. NO FURTHER NEEDS AT THIS TIME.
[2023-02-15] MEDS ORDERED: COLACE100 MG PO (15:46)
[2023-02-15] MEDS ORDERED: FLUTICASONE P15.8 ML NAS (15:48)
[2023-02-15] MEDS ORDERED: DIVALPROEX SOD250 MG PO (15:49)
--- NOTE | 2023-02-15 15:50 | NUR ---
MED REC COMPLETE
--- NOTE | 2023-02-15 17:19 | NUR ---
PT ARRIVED TO ROOM THIS AFTERNOON AFTER PRESENTING TO THE ED WITH ABDOMINAL PAIN AND VOMITING BLOOD SHORTLY BEFORE GOING TO ER. PT CBG IN ED WAS OVER 600 AND SHE WAS BOLUSED WITH 2L NS WHILE THERE, MEDICATED FOR PAIN X2 WITH 0.5MG DILAUDID, ZOFRAN 4MG X1, INAPSINE X1, AND 25U OF HUMULIN. PT'S CBG UPON ARRIVAL TO ROOM WAS 218, FOR WHICH SHE WAS GIVEN 3U. PT REPORTS SHE MAY HAVE A UTI AND A UA SHOWED 2+ BACTERIA. PT WAS A&O X4, ATE 100% OF HER LUNCH, SEEMS RECEPTIVE TO PT EDUCATION, ABLE TO MOVE ABOUT HER ROOM AND AMBULATE HALLWAYS INDEPENDENTLY. PT AMBULATED THE HALLWAY AFTER LUNCH FOR APPROXIMATELY 1.5-2 HOURS WHILE TALKING ON HER PHONE, PULLING HER IV POLE ALONG. CBG AT DINNER WAS 178 FOR WHICH 3U WAS ADMINISTERED. PT ATE 100% OF HER DINNER AND SINCE SHE HADN'T EATEN BREAKFAST, REQUESTED A SANDWICH BOX AND ATE THAT WELL. PT NAPPED FOR A COUPLE OF HOURS IN THE LATE AFTERNOON BEFORE DINNER. SHE USES CALL LIGHT APPROPRIATELY. NO C/O NAUSEA/VOMITING. REPORTED HEADACHE AND HIP PAIN (POSSIBLY RELATED TO SCIATICA) 7 OUT OF 10, FOR WHICH SHE WAS GIVEN 650MG TYLENOL PER EMAR. PT REPORTS THE PAIN WENT AWAY COMPLETELY AFTER TYLENOL AND NAPPING. PT REQUESTS THAT, IF NOT NEEDED, THE IV IN HER RIGHT WRIST BE REMOVED. BOTH THE 22G IN THE RIGHT WRIST AND THE 18G IN THE LEFT UPPER ARM HAVE GOOD BLOOD RETURN AND FLUSHED WELL WITH 10ML NS FLUSHES. NS AT 125/HR TO KALEB SITE. PT URINE IS YELLOW AND CLOUDY. VOIDING QUANTITY SUFFICIENT.
[2023-02-15 18:18] VITALS: BP 107/66
--- NOTE | 2023-02-15 18:21 | NUR ---
PT RESTING WITH EYES CLOSED, LAYING IN BED ON LEFT SIDE. IV FLUIDS CONTINUING TO BE ADMINISTERED. PT DENIES NEEDS AT THIS TIME. CALL LIGHT IN REACH.
--- NOTE | 2023-02-15 19:40 | NUR ---
REPORT RECEIVED FROM DAY SHIFT RN. PT LYING IN BED RESTING WITH EYES CLOSED. RESPIRATIONS EVEN. CALL LIGHT IN REACH.
--- NOTE | 2023-02-15 20:40 | NUR ---
PT CALLED, IV ALARMING, NEW BAG HUNG, PT UP TO BATHROOM, THEN CURRENTLY WALKING IN SEN.
[2023-02-15 22:03] VITALS: BP 135/88
--- NOTE | 2023-02-15 22:43 | NUR ---
EVENING ASSESSMENT COMPELTE. SCHEDULED MEDS ADMIN PER EMAR. PT REPORTS ABD PAIN 11/15. PRN FOR PAIN AND SLEEP ADMIN PER EMAR. IV DC'D IN RIGHT WRIST PER PT REQUEST. TIP INTACT. IVF INFUSING IN LEFT UPPER ARM. VS AND I&O OBTAINED, WNL. SCD'S IN PLACE. PT DENIES QUESTIONS OR CONCERNS. CALL LIGHT IN REACH.
--- NOTE | 2023-02-15 23:54 | NUR ---
PT RESTING IN BED WITH EYES CLOSED. RESPIRATIONS EVEN. CALL LIGHT IN REACH.
[2023-02-16] VITALS (9 sets, daily range): BP systolic 100–148; BP diastolic 70–94
--- NOTE | 2023-02-16 02:08 | NUR ---
PT RESTING WITH EYES CLOSED. AWAKENS EASILY. VS AND I&O OBTAINED. NO C/O PAIN OR NAUSEA AT THIS TIME. ASSESSMENT UNCHANGED. WARM BLANKET PROVIDED. NO FURTHER NEEDS.
--- NOTE | 2023-02-16 04:21 | NUR ---
PT RESTING IN BED LYING ON LEFT SIDE. EYES CLOSED. RESPIRATIONS EVEN. CALL LIGHT IN REACH.
--- NOTE | 2023-02-16 04:53 | NUR ---
IV PUMP ALARMING. NEW BAG IVF INFUSING PER ORDER. PT REPORTS 11/15 HEAD/LEFT HIP PAIN. PRN FOR PAIN ADMIN PER EMAR. NO C/O NAUSEA. UP TO BR TO VOID 800 ML CLOUDY URINE. BACK TO BED, E[place] WE[place]. SCD'S IN PLACE. NO FURTHER NEEDS.
--- NOTE | 2023-02-16 05:44 | NUR ---
PT AWAKE WITH COFFEE, TALKING TO HER BF. PRIOR TO THIS LAB INTO ROOM, PT REFUSED TO LET BLOOD BE DRAWN, STATING SHE WANTED IT FROM HER IV. THIS RN INTO ROOM, PT INFORMED THAT LAB WOULD NEED TO PULL FROM A VEIN, SHE THREW HERSELF BACK IN BED, IN A VERY JEFFREY, COMPLAINING VOICE SAID LOUDLY, MY VEIN WILL BURST I JUST KNOW IT, WRITHING IN BED TOSSING FROM SIDE TO SIDE. THIS RN CALMLY SAID THAT THE BLOOD NEEDS TO BE DRAWN, AND LAB NEEDS TO DO IT. PT THREW COVERS OVER HER FACE, AGAIN COMPLAINING, THEN BOLTS UP IN BED, SAID I AM NOT A MORNING PERSON, DON'T WANT TO BE AWAKE. ENCOURAGED PT THAT ONCE LAB IS DONE SHE CAN GO BACK TO SLEEP, BUT HER REPLY WAS I JUST WANT COFFEE. COFFEE GIVEN PER HER CHOICE. THERAPEUTIC COMMUNICATION TO PT, DON'T YELL AT US, WE ARE ONLY PROVIDING CARE THAT SHE NEEDS. SHE SAID SHE WAS SORRY AND WAS PLEASANT TO WAITER/WAITRESS WELL THIS RN.
--- NOTE | 2023-02-16 06:03 | NUR ---
PT AMB IN SEN INDEPENDENTLY. EASTON WELL.
[2023-02-16 06:33] LABS: ANION GAP 22.8 (7-21); BUN/CREATININE RATIO 27.58 (6.0-28.6); POTASSIUM 3.8 mmol/L (3.5-5.1)
[2023-02-16 06:36] LABS: CHOLESTEROL 508 mg/dL (<200); CHOLESTEROL/HDL RATIO 12.4; HDL CHOLESTEROL 41 (40-60)
[2023-02-16 06:39] LABS: TRIGLYCERIDES 2536 ng/dL (<150)
[2023-02-16 06:41] LABS: CREATININE, SERUM 0.52 mg/dL (0.55-1.02)
[2023-02-16 06:55] LABS: BASOPHILS 0.4 % (0-2); EOSINOPHILS 2.3 % (0-6); HEMATOCRIT 38.5 % (35.0-50.0); HEMOGLOBIN 13.2 g/dL (12.0-18.0); LYMPHOCYTES 21.7 % (24-44); MCH 27.2 (27-36); MCHC 34.3 g/dl (30-36); MCV 79.1 fl (81-99); MONOCYTES 5.9 % (0-12); NEUTROPHILS 69.7 % (39-80); RBC 4.86 M/ul (4.3-5.7); RDW 14.2 (10.5-15.0)
[2023-02-16 06:59] LABS: PLATELET COUNT 269 K/uL (140-440)
--- NOTE | 2023-02-16 10:15 | NUR ---
IN TO DO VITALS AND I&O'S. VITALS AND I&O'S CHARTED. PATIENT NOW AMBULATING IN HALLWAY INDEPENDENTLY.
--- NOTE | 2023-02-16 11:00 | NUR ---
CONNECTED WITH PT IN HALLWAY. PT ACCEPTED OFFER OF COLORING BOOK WHICH I PLACED IN HER ROOM. PRAYED FOR PEACE AND RELIEF FROM ANXIETY.
--- NOTE | 2023-02-16 11:00 | NUR ---
Spoke with pt. She states she cont. to live with her SO and her almost 2 yo. She has multiple resources through [facility], [employer], [employer], food stamps. 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 She is very anxious as she states she takes multiple mental health meds and has not had her meds at this time. She also states she is painful and needs pain meds. She states she will be moved to CCU and started on a gtt. Will FU with pt tomorrow to check for needs.
--- NOTE | 2023-02-16 12:05 | NUR ---
PLAN FOR PATIENT TO TRANSFER TO CCU FOR INSULIN DRIP TO MANAGE BLOOD SUGARS. PATIENT UPDATED ON POC. PATIENT AMBULATING IN HALLS, APPEARS STEADY ON FEET. APPEARS ANXIOUS, STATES " THE WALKING HELPS ME CALM DOWN" PATIENT TALKING ON PHONE WITH MOTHER. NO OTHER NEEDS AT THIS TIME.
--- NOTE | 2023-02-16 13:00 | NUR ---
PT REPORT RECEIVED FROM CHAPIS Paige. PT CURRENTLY AMBULATING THE HALLWAY WITH A [facility] RN. DENIES NEEDS AT THIS TIME.
[2023-02-16 14:31] LABS: ANION GAP 23.4 (7-21); BUN/CREATININE RATIO 13.04 (6.0-28.6); CALCIUM 7.5 mg/dL (8.5-10.1); CREATININE, SERUM 0.69 mg/dL (0.55-1.02); POTASSIUM 4.4 mmol/L (3.5-5.1)
--- NOTE | 2023-02-16 15:06 | NUR ---
PT TO FLOOR WITH CHAPIS ESCOBAR. PT AMB. STARTED INSULIN DRIP WITH CHAPIS BULLOCK. IV FLUSHED AND BLOOD RETURN NOTED. HAS SIG BRUISE WHICH PT STATES IS PAINFUL. REPORTING NAUSEA, DR ORDERED ZOFRAN AND OK'D MEDS WITH SIPS OF WATER OK. UP TO RESTROOM AND THEN COMMODE FOR TOTAL UO OF 800. PT ON PHONE WITH FRIEND.
--- NOTE | 2023-02-16 15:11 | NUR ---
ADMINISTERED DEPAKOTE THAT WAS NOT GIVEN ON MS.
--- NOTE | 2023-02-16 15:27 | NUR ---
PT MIDLINE IV CHARTED ON WRONG ARM. UNABLE TO CHANGE IN COMPUTER UNLESS DC/D AND RECHARTED.
--- NOTE | 2023-02-16 15:53 | NUR ---
CALL LIGHT ANSWERED, PATIENT UP TO BSC FOR VOID AND BACK TO BED. WARM PACK PROVIDED PER REQUEST. PATIENT C/O NAUSEA, RN NOTIFIED.
--- NOTE | 2023-02-16 17:16 | NUR ---
APPLIED NICOTINE PATCH TO RIGHT SHOULDER PER PT REQUEST. PT STATES THEY DO NOT KEEP HER UP.
--- NOTE | 2023-02-16 17:50 | NUR ---
PT CALLED TO ASK FOR VISTIRIL. STATES SHE NORMALLY TAKES 100MG 3 TIMES A DAY AND HOPES THIS WORKS. TALKING ON PHONE.
[2023-02-16 19:15] LABS: ANION GAP 16.4 (7-21); BUN/CREATININE RATIO 17.64 (6.0-28.6); CREATININE, SERUM 0.51 mg/dL (0.55-1.02); POTASSIUM 5.4 mmol/L (3.5-5.1)
--- NOTE | 2023-02-16 19:15 | NUR ---
SHIFT REPORT RECEIVED. PATIENT REQUESTING MD BE CALLED TO REVIEW DIET ORDER. WILL REVIEW AND DISCUSS MOST RECENT LABS WITH MD.
--- NOTE | 2023-02-16 20:00 | NUR ---
DISCUSSED CURRENT LABS AND PLAN OF CARE WITH . PATIENT IS TO REMAIN NPO ORDERS FOR NOW BUT MD DID STATE SHE COULD HAVE A SNACK, SPECIFICALLY A CHESSE STICK, WHICH WAS PROVIDED TO PATIENT.
--- NOTE | 2023-02-16 21:00 | NUR ---
PATIENT RECEIVED SCHEDULED MEDS. INSULIN DRIP TITRATED PER PROTOCOL. PATIENT CONTINUES TO HAVE GOOD URINE OUTPUT. DENIED NAUSEA OR PAIN. MIDLINE SITE APPEARS BRUISED AND IS UNCOMFORTABLE ACCORDING TO THE PATIENT. SITE FLUSHES AND RETURNS BLOOD EASILY. VS STABLE. PATIENT UP TO BSC AND RETURNED TO BED. CALL LIGHT IN REACH.
--- NOTE | 2023-02-16 22:23 | NUR ---
LABS DRAWN FROM MIDLINE PER PROTOCOL. PATIENT RESTING WITH EYES CLOSED. DENIED NEEDS.
[2023-02-16 22:37] LABS: ANION GAP 17.6 (7-21); BUN/CREATININE RATIO 23.8 (6.0-28.6); CREATININE, SERUM 0.42 mg/dL (0.55-1.02); POTASSIUM 3.6 mmol/L (3.5-5.1)
--- NOTE | 2023-02-16 23:19 | NUR ---
PATIENT LABS REVIEWED WITH . VERIFIED FLUID ORDERS FOR D51/2NS AND STARTED THOSE. MIDLINE SITE WNL.
[2023-02-17] VITALS: BP 104/67
--- NOTE | 2023-02-17 00:18 | NUR ---
PATIENT APPEARS TO BE RESTING COMFORTABLY. VS STABLE. CONTINUE TO TITRATE INSULIN PER PROTOCOL.
--- NOTE | 2023-02-17 02:00 | NUR ---
LABS DRAWN FROM IV SITE IN RIGHT UPPER ARM PER PROTOCOL. SITE DRAWNS AND FLUSHES WELL. LABS SENT. PATIENT REPORTS BEING HUNGRY AND REQUEST THIS RN CALL THE MD TO REQUEST FOOD. DISCUSSED PLAN OF CARE WITH THE PATIENT AND ENCOURAGED HER TO REST UNTIL MORNING; THEN WE WILL REVIEW PLAN OF CARE WITH . PATIENT DENIED ANY OTHER NEEDS. CALL LIGHT IN REACH.
[2023-02-17 02:42] LABS: BUN/CREATININE RATIO 19.04 (6.0-28.6); CALCIUM 8.1 mg/dL (8.5-10.1); CREATININE, SERUM 0.42 mg/dL (0.55-1.02)
--- NOTE | 2023-02-17 05:11 | NUR ---
PATIENT CONTINUES TO RECEIVED INSULIN PER PROTOCOL. PATIENT IS IRRITABLE THIS MORNING AND ASKING FOR FOOD. ENCOURAGED PATIENT TO REST AND WAIT FOR MORNING LABS. PATIENT VERBALIZED DISLIKE OF TREATMENT PLAN BUT AGREES.
--- NOTE | 2023-02-17 06:20 | NUR ---
UPDATE GIVEN TO
--- NOTE | 2023-02-17 06:30 | NUR ---
PATIENT RESTING IN BED. REPORTS BEING VERY HUNGRY. PRN ZISARIL AND ZOFRAN PROVIDED.
[2023-02-17 06:32] VITALS: BP 114/82
[2023-02-17 06:43] LABS: ANION GAP 15.1 (7-21); BUN/CREATININE RATIO 17.94 (6.0-28.6); CALCIUM 8.1 mg/dL (8.5-10.1); CREATININE, SERUM 0.39 mg/dL (0.55-1.02); POTASSIUM 4.1 mmol/L (3.5-5.1)
--- NOTE | 2023-02-17 07:30 | NUR ---
JAMSHIDT RECIEVED FROM CLINICAL REIMBURSEMENT SPECIALIST RN. PATIENT RESTING IN BED. PATIENT REMAINS ON INSULIN GTT OVER NIGHT AND IS TOLERATING WELL. PATIENT HAS CALL LIGHT AND CALLS APPROPRIATELY.
--- NOTE | 2023-02-17 08:30 | NUR ---
STAFF IN TO DO AM MEDICATIONS. PATIENT WANTS TO BE ABLE TO GO HOME TODAY. MD DISCUSSED PLAN OF CARE WITH PATIENT. PATIENT WILL BE TRANSITIONED TO LONG ACTING INSULIN AND STAY ON THE INSULIN GTT FOR 2 HOURS AFTER RECIEVING LONG ACTING INSULIN. PATIENT CAN HAVE BLACK COFFEE AND WATER PER MD. ASSESSMENT COMPLETED. PATIENT UP TO THE BATHROOM WITH CORD ASSISTANCE.
[2023-02-17 08:40] VITALS: BP 129/80
[2023-02-17 10:00] VITALS: BP 126/80
--- NOTE | 2023-02-17 10:00 | NUR ---
INSULIN GTT AND FLUIDS OFF AT 1000 PER MD. WILL RECHECK BS PRIOR TO LUNCH. BREAKFAST PROVIDED AT THIS TIME WITH NO SS INSULIN PER MD.
[2023-02-17 10:33] LABS: BUN/CREATININE RATIO 13.33 (6.0-28.6); CALCIUM 8.6 mg/dL (8.5-10.1); CREATININE, SERUM 0.45 mg/dL (0.55-1.02)
--- NOTE | 2023-02-17 11:50 | NUR ---
Spoke with Kamilla. She plans on dc to home today. She denies needs and will go home to family. She states she will need a care ride. Rn notified and taxi ticket was given.
[2023-02-17 12:00] VITALS: BP 136/100
--- NOTE | 2023-02-17 12:15 | NUR ---
PATIENTS BLOOD SUGAR COMPLETED. PATIENT FOOD PROVIDED. PATIENT CALLS APPROPRIATELY. PATIENT HAS HAD FACETIMEOPEN ALL DAY AND VISITING WITH FRIENDS AND FAMILY.
--- NOTE | 2023-02-17 13:00 | NUR ---
PATIENT FINISHED LUNCH AND TOLERATED WELL. PATIENT EATING WELL AND BS 200'S. PATIENT REQUESTING TO GET TO GO HOME AND ASKED "DO YOU KNOW WHEN THE DOCTOR WILL COME BACK". UPDATED ON PLAN OF CARE AND THAT MD WILL CHECK BACK IN ABOUT AN HOUR.
--- NOTE | 2023-02-17 13:43 | NUR ---
PT ON PHONE SO NO VISIT. PRAYED SILENTLY FOR STRENGTH AND JAINISM.
--- NOTE | 2023-02-17 13:51 | NUR ---
MD LOVETT IN TO SEE PATIENT AND NEW ORDERS PLACED FOR PATIENT TO DC HOME.
[2023-02-17 13:57] VITALS: BP 149/96
--- NOTE | 2023-02-17 14:40 | NUR ---
PATIENT IV DCD WITH NO ISSUES. PATIENT VITALS COMPELTED. PATIENT DRESSED HERSELF WITH NO ISSUES. ALL BELONGIGNS SENT WITH PATIENT. APT MADE FOR PATIENT. PATIENT GIVEN CARE RIDE HOME. THIS RN AND STUDENT RN BROUGHT SHASHANKY TO THE FRONT OF HOSPITAL VIA WHEELCHAIR TO WAIT FOR A RIDE HOME.
== END 2023-02-17 14:31 | disposition home or self-care (01) | DRG 638 ==
LOC: ED 08:22 → MS 08:24 → CCU 02-16 11:38 → MS 02-16 11:39 → CCU 02-16 14:20
PROVIDERS: Emergency Medicine; Family Medicine; ADMIT Internal Medicine; ATTEND Internal Medicine
DX: E11.00 Type 2 diabetes mellitus with hyperosmolarity without nonketotic hyperglycemic-hyperosmolar coma (NKHHC) (principal); E87.1 Hypo-osmolality and hyponatremia; E83.51 Hypocalcemia; F41.9 Anxiety disorder, unspecified; E78.1 Pure hyperglyceridemia; E03.9 Hypothyroidism, unspecified; E11.10 Type 2 diabetes mellitus with ketoacidosis without coma; F31.9 Bipolar disorder, unspecified; E78.5 Hyperlipidemia, unspecified; J45.909 Unspecified asthma, uncomplicated; K29.00 Acute gastritis without bleeding; F17.210 Nicotine dependence, cigarettes, uncomplicated; Z20.822 Contact with and (suspected) exposure to COVID-19; Z98.890 Other specified postprocedural states; Z87.19 Personal history of other diseases of the digestive system; Z90.49 Acquired absence of other specified parts of digestive tract; Z98.51 Tubal ligation status; Z88.8 Allergy status to other drugs, medicaments and biological substances; Z91.048 Other nonmedicinal substance allergy status; Z79.899 Other long term (current) drug therapy; Z79.890 Hormone replacement therapy; Z79.2 Long term (current) use of antibiotics; Z79.84 Long term (current) use of oral hypoglycemic drugs; Z79.51 Long term (current) use of inhaled steroids; Z79.4 Long term (current) use of insulin
CPT/HCPCS: 36415; 74176; 80048; 80053; 80061; 81001; 82010; 82800; 83690; 83735; 84478; 84703; 85025; 87502; A9270; C9803; J1170; J1790; J1815; J2405; J7030; J7042; Q0177; U0002

== ENCOUNTER 2023-03-13 08:22 | Emergency (ER) | payer MEDICARE, OTHER ==
[~2023-03-13] VITALS: Ht 165.1 cm; Wt 86.6 kg
[~2023-03-13 08:22] MED LIST changes: +BENZTROPINE ME0.5 MG PO; +CIPRO500 MG PO; +COLACE100 MG PO; +DIVALPROEX SOD250 MG PO; +FLUTICASONE P15.8 ML NAS; +OMEPRAZOLE40 MG PO; +PRAZOSIN HCL2 MG PO
--- OUTSIDE RECORDS SUMMARY | 2023-03-13 08:25 | XMS ---
PreManage Notification: SHAMEKA LEE Security Licensed Nursing Assistant Events No recent Security Events currently on file CRITERIA MET - [facility] - [facility] - 2 Visits in 30 Days CARE PROVIDERS KYAW LOPES [employer] 08/06/2021-Current PHONE: [phone] OMAR[facility] 06/08/2021-Current PHONE: [phone] -Naty- Dentist: Public Information Specialist [facility] PHONE: [phone] Dior Curran Counselor: Mental Health Current PHONE: [phone] Heydi has no Care Guidelines for this patient. Care History Medical/Surgical 01/25/2020 [facility] - PATIENT IS CURRENTLY WORKING WITH [employer]- POINT OF CONTACT IS JOSE GUADALUPE HERNANDEZ- [phone] - JOSE GUADALUPE IS AWARE THAT PATIENT DOES NOT HAVE A PCP AND IS AWARE OF THE CLINIC RESOURCES IN [place]OWN SHE WILL WORK WITH PATIENT TO SET UP A PCP. Behavioral 02/02/2019 [facility] - [facility] Client is established with [facility] Cj with Dior Curran. Her Team has been unable to contact her, please have her reach out to schedule and call us to give us her updated phone number.\T\ nbsp; E.D. VISIT COUNT (12 MO.) [address] [facility] (Mavis Gamble) TOTAL 21 NOTE: Visits indicate total known visits. ED/UCC VISIT TRACKING (12 MO.) 03/13/2023 08:23 [facility] [place] TYPE: Emergency COMPLAINT: - COLD SYMPTOMS 03/05/2023 12:19 [facility] [place] TYPE: Emergency COMPLAINT: - HIGH BLOOD SUGAR, ABD PAIN DIAGNOSES: - Allergy status to analgesic agent - Allergy status to other drugs, medicaments and biological substances - Dehydration - Hormone replacement therapy - Hyperglycemia, unspecified - Hyperlipidemia, unspecified - senior care (current) use of insulin - senior care (current) use of oral hypoglycemic drugs - Nicotine dependence, unspecified, uncomplicated - Other watermaster (current) drug therapy - Other nonmedicinal substance allergy status - Type 2 diabetes mellitus with hyperglycemia - Unspecified asthma, uncomplicated - Urinary tract infection, site not specified 02/15/2023 08:23 [facility] [place] TYPE: Emergency COMPLAINT: - ABD PAIN, VOMITING BLOOD 12/07/2022 09:24 [facility] [place] TYPE: Emergency COMPLAINT: - ABD PAIN, V/D DIAGNOSES: - Allergy status to other drugs, medicaments and biological substances - Hyperlipidemia, unspecified - Hypokalemia - Nicotine dependence, unspecified, uncomplicated - Other watermaster (current) drug therapy - Other nonmedicinal substance allergy status - Right lower quadrant pain - Type 2 diabetes mellitus without complications - Unspecified abdominal pain - Unspecified asthma, uncomplicated - Urinary tract infection, site not specified 12/05/2022 09:53 [facility] [place] TYPE: Emergency COMPLAINT: - ABD PAIN DIAGNOSES: - Allergy status to other drugs, medicaments and biological substances - Diarrhea, unspecified - adjunct faculty for medical 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 (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) use of insulin - adjunct faculty for medical terminology (current) use of oral hypoglycemic drugs - Nicotine dependence, unspecified, uncomplicated - Other watermaster (current) drug therapy - Other nonmedicinal substance allergy status - Type 2 diabetes mellitus without complications - Unspecified abdominal pain - Unspecified asthma, uncomplicated 08/31/2022 09:03 [facility] [place] TYPE: Emergency COMPLAINT: - ABD PAIN, VOMITING BLOOD DIAGNOSES: - Allergy status to other drugs, medicaments and biological substances - Chronic or unspecified peptic ulcer, site unspecified, with hemorrhage - Hyperlipidemia, unspecified - adjunct faculty for medical terminology (current) use of insulin - Nicotine dependence, cigarettes, uncomplicated - Nicotine dependence, unspecified, uncomplicated - Other long-term (current) drug therapy - Other nonmedicinal substance allergy status - Type 2 diabetes mellitus without complications - Unspecified asthma, uncomplicated - Vomiting, unspecified 08/21/2022 09:11 [facility] [place] TYPE: Emergency COMPLAINT: - ABDOM PAIN, VOMITING, DIARRHEA DIAGNOSES: - Allergy status to other drugs, medicaments and biological substances - Hyperlipidemia, unspecified - adjunct faculty for medical terminology (current) use of insulin - Nausea with vomiting, unspecified - Nicotine dependence, unspecified, uncomplicated - Other watermaster (current) drug therapy - Other nonmedicinal substance allergy status - Right lower quadrant pain - Type 2 diabetes mellitus with hyperglycemia - Unspecified asthma, uncomplicated 08/13/2022 06:33 [facility] [place] TYPE: Emergency COMPLAINT: - ABD PAIN, VOMITING DIAGNOSES: - Allergy status to other drugs, medicaments and biological substances - Chronic obstructive pulmonary disease, unspecified - Hyperlipidemia, unspecified - adjunct faculty for medical terminology (current) use of insulin - adjunct faculty for medical terminology (current) use of oral hypoglycemic drugs - Other watermaster (current) drug therapy - Other nonmedicinal substance [...] - Nicotine dependence, unspecified, uncomplicated - Other long-term (current) drug therapy - Other nonmedicinal substance allergy status - Pneumonia, unspecified organism - Type 2 diabetes mellitus without complications - Unspecified asthma, uncomplicated 07/31/2022 07:48 [facility] [place] TYPE: Emergency COMPLAINT: - FEVER DIAGNOSES: - Allergy status to other drugs, medicaments and biological substances - Fever, unspecified - Hyperlipidemia, unspecified - adjunct faculty for medical terminology (current) use of insulin - adjunct faculty for medical terminology (current) use of oral hypoglycemic drugs - Nicotine dependence, unspecified, uncomplicated - Other watermaster (current) drug therapy - Other nonmedicinal substance allergy status - Pneumonia, unspecified organism - Type 2 diabetes mellitus without complications - Unspecified asthma, uncomplicated - Unspecified ovarian cyst, right side 07/29/2022 06:41 [facility] [place] TYPE: Emergency COMPLAINT: - ABD PAIN, VOMITING DIAGNOSES: - Allergy status to other drugs, medicaments and biological substances - Hyperlipidemia, unspecified - senior care (current) use of insulin - Nausea with vomiting, unspecified - Nicotine dependence, unspecified, uncomplicated - Other long-term (current) drug therapy - Other nonmedicinal substance allergy status - Other ovarian cyst, right side - Type 2 diabetes mellitus without complications - Unspecified asthma, uncomplicated 07/27/2022 16:29 CON[facility] [place] TYPE: Emergency COMPLAINT: - VOMITING BLOOD DIAGNOSES: - Allergy status to other drugs, medicaments and biological substances - Hyperlipidemia, unspecified - adjunct faculty for medical terminology (current) use of insulin - adjunct faculty for medical terminology (current) use of oral hypoglycemic drugs - Nausea with vomiting, unspecified - Nicotine dependence, unspecified, uncomplicated - Other watermaster (current) drug therapy - Other nonmedicinal substance allergy status - Type 2 diabetes mellitus without complications - Unspecified abdominal pain - Unspecified asthma, uncomplicated 07/24/2022 19:22 [facility] [place] TYPE: Emergency COMPLAINT: - VAGINAL BLEEDING AFTER PROCEDURE DIAGNOSES: - Allergy status to other drugs, medicaments and biological substances - Hyperlipidemia, unspecified - senior care (current) use of insulin - adjunct faculty for medical terminology (current) use of oral hypoglycemic drugs - Nicotine dependence, unspecified, uncomplicated - Other long-term (current) drug therapy - Other nonmedicinal substance [...] COVID-19 - Dehydration - Hyperlipidemia, unspecified - senior care (current) use of insulin - Nicotine dependence, unspecified, uncomplicated - Other long-term (current) drug therapy - Other nonmedicinal substance allergy status - Type 1 diabetes mellitus with hyperglycemia - Unspecified asthma, uncomplicated - Urinary tract infection, site not specified - Vomiting, unspecified 06/19/2022 05:43 [facility] [place] TYPE: Emergency COMPLAINT: - ABD PAIN AND HEART RACING DIAGNOSES: - Allergy status to other drugs, medicaments and biological substances - Hyperlipidemia, unspecified - adjunct faculty for medical terminology (current) use of insulin - senior care (current) use of oral hypoglycemic drugs - Nicotine dependence, unspecified, uncomplicated - Other watermaster (current) drug therapy - Other nonmedicinal substance [...] unspecified - Left upper quadrant pain - adjunct faculty for medical terminology (current) use of insulin - Nicotine dependence, unspecified, uncomplicated - Other watermaster (current) drug therapy - Other nonmedicinal substance allergy status - Type 2 diabetes mellitus with hyperglycemia - Unspecified asthma, uncomplicated 04/28/2022 11:49 [place] [facility] (Mavis Gamble) TYPE: Emergency DIAGNOSES: - senior care (current) use of insulin - Procedure and treatment not carried out due to patient leaving prior to being seen by health care provider - Type 2 diabetes mellitus with hyperglycemia 04/19/2022 13:10 CON[facility] [place] TYPE: Emergency COMPLAINT: - ABD/LOWER BACK PAIN, N/V DIAGNOSES: - Allergy status to other drugs, medicaments and biological substances - Hyperlipidemia, unspecified - Left lower quadrant pain - senior care (current) use of insulin - Nicotine dependence, unspecified, uncomplicated - Other long-term (current) drug therapy - Other nonmedicinal substance allergy status - Right lower quadrant pain - Type 2 diabetes mellitus with hyperglycemia - Unspecified asthma, uncomplicated Plus 1 More Visit INPATIENT VISIT TRACKING (12 MO.) 02/16/2023 11:38 [facility] [place] TYPE: Critical Care COMPLAINT: - HHS DIAGNOSES: - Acquired absence of other specified parts of digestive tract - Acute gastritis without bleeding - Allergy status to other drugs, medicaments and biological substances - Anxiety disorder, unspecified - Bipolar disorder, unspecified - Contact with and (suspected) exposure to COVID-19 - Hormone replacement therapy - Hyperglycemia, unspecified - Hyperlipidemia, unspecified - Hypo-osmolality and hyponatremia - Hypocalcemia - Hypothyroidism, unspecified - adjunct faculty for medical terminology (current) use of antibiotics - senior care (current) use of inhaled steroids - senior care (current) use of insulin - senior care (current) use of oral hypoglycemic drugs - Nicotine dependence, cigarettes, uncomplicated - Other watermaster (current) drug therapy - Other nonmedicinal substance allergy status - Other specified postprocedural states - Personal history of other diseases of the digestive system - Pure hyperglyceridemia - Tubal ligation status - Type 2 diabetes mellitus with hyperosmolarity without nonketotic hyperglycemic-hyperosmolar coma ([facility]) - Type 2 diabetes mellitus with ketoacidosis without coma - Unspecified asthma, uncomplicated 07/12/2022 14:09 CON[facility] Hussein [place] TYPE: Observation COMPLAINT: - UPPER GI BLEED DIAGNOSES: - Allergy status to other antibiotic agents - Allergy status to other drugs, medicaments and biological substances - Contact with and (suspected) exposure to COVID-19 - Hyperlipidemia, unspecified - Hypomagnesemia - adjunct faculty for medical terminology (current) use of insulin - senior care (current) use of oral hypoglycemic drugs - [...] - Hyperlipidemia, unspecified - Hypothyroidism, unspecified - adjunct faculty for medical terminology (current) use of insulin - Nicotine dependence, cigarettes, uncomplicated - Nicotine dependence, unspecified, uncomplicated - Other watermaster (current) drug therapy - Other nonmedicinal substance [...] unspecified - Hypomagnesemia - Hypothyroidism, unspecified - adjunct faculty for medical terminology (current) use of insulin - Nicotine dependence, unspecified, uncomplicated - Other watermaster (current) drug therapy - Type 2 diabetes mellitus with hyperglycemia - Type 2 diabetes mellitus with ketoacidosis without coma - Unspecified asthma, uncomplicated [email or web address]
[2023-03-13] MEDS ORDERED: QUETIAPINE FUM300 MG PO (09:16)
[2023-03-13 10:09] LABS: INFLUENZA B NAA NEGATIVE (NEGATIVE); RESPIRATORY SYNCYTIAL VIR NAA NEGATIVE (NEGATIVE)
[2023-03-13 10:29] LABS: BASOPHILS 1.5 % (0-2); EOSINOPHILS 1.5 % (0-6); HEMATOCRIT 41.6 % (35.0-50.0); HEMOGLOBIN 14.3 g/dL (12.0-18.0); LYMPHOCYTES 17.4 % (24-44); MCH 27.8 (27-36); MCHC 34.4 g/dl (30-36); MCV 80.8 fl (81-99); NEUTROPHILS 69.6 % (39-80); PLATELET COUNT 259 K/uL (140-440); RBC 5.15 M/ul (4.3-5.7); RDW 13.9 (10.5-15.0)
[2023-03-13 10:44] LABS: ALBUMIN 3.7 g/dL (3.4-5.0); ALBUMIN/GLOBULIN RATIO 0.95 (1.1-2.4); ANION GAP 14.1 (7-21); BILIRUBIN, TOTAL 0.6 ng/dL (0.2-1.0); BUN/CREATININE RATIO 12.98 (6.0-28.6); CALCIUM 9.1 mg/dL (8.5-10.1); CREATININE, SERUM 0.77 mg/dL (0.55-1.02); POTASSIUM 4.1 mmol/L (3.5-5.1); PROTEIN, TOTAL 7.6 g/dL (6.4-8.2)
[2023-03-13 13:10] VITALS: BP 133/99
== END 2023-03-13 13:05 | disposition home or self-care (01) ==
LOC: ED 08:22
PROVIDERS: Emergency Medicine
DX: J06.9 Acute upper respiratory infection, unspecified (principal); R10.13 Epigastric pain; R10.11 Right upper quadrant pain; E11.65 Type 2 diabetes mellitus with hyperglycemia; J45.909 Unspecified asthma, uncomplicated; E78.5 Hyperlipidemia, unspecified; F17.200 Nicotine dependence, unspecified, uncomplicated; Z88.8 Allergy status to other drugs, medicaments and biological substances; Z88.6 Allergy status to analgesic agent; Z91.048 Other nonmedicinal substance allergy status; Z79.899 Other long term (current) drug therapy; Z79.51 Long term (current) use of inhaled steroids; Z79.890 Hormone replacement therapy; Z79.84 Long term (current) use of oral hypoglycemic drugs; Z79.4 Long term (current) use of insulin; Z11.52 Encounter for screening for COVID-19
CPT/HCPCS: 36415; 71045; 80053; 83690; 85025; 87502; C9803; J1170; J2405; J7030; U0002

== ENCOUNTER 2023-03-18 06:03 | Emergency (ER) | payer MEDICARE, OTHER ==
[~2023-03-18] VITALS: Ht 165.1 cm; Wt 88.5 kg
[~2023-03-18 06:03] MED LIST changes: +QUETIAPINE FUM300 MG PO
--- OUTSIDE RECORDS SUMMARY | 2023-03-18 06:07 | XMS ---
PreManage Notification: SHAMEKA LEE Security Scrap Sorter Events No recent Security Events currently on file CRITERIA MET - 6 ED Visits in 6 Months - [facility] - [facility] [place] - 2 Visits in 30 Days CARE PROVIDERS KYAW LOPES Carton Filler 08/06/2021-Current PHONE: [phone] OMARI Osborn [facility] 06/08/2021-Current PHONE: [phone] -Naty- Dentist: [facility] PHONE: [phone] Dior Curran Counselor: Mental Health Current PHONE: [phone] Heydi has no Care Guidelines for this patient. Care History Medical/Surgical 01/25/2020 [facility] - PATIENT IS CURRENTLY WORKING WITH [employer]- POINT OF CONTACT IS JOSE GUADALUPE HERNANDEZ- [phone] - JOSE GUADALUPE IS AWARE THAT PATIENT DOES NOT HAVE A PCP AND IS AWARE OF THE CLINIC RESOURCES IN [place]OWN SHE WILL WORK WITH PATIENT TO SET UP A PCP. Behavioral 02/02/2019 [facility] - OLD Client is established with [facility] [employer] [facility] Cj with Dior Curran. Her Team has been unable to contact her, please have her reach out to schedule and call us to give us her updated phone number.\T\ nbsp; E.D. VISIT COUNT (12 MO.) [facility] 1 [facility] (Mavis Gamble) TOTAL 22 NOTE: Visits indicate total known visits. ED/UCC VISIT TRACKING (12 MO.) 03/18/2023 06:04 [facility] [place] TYPE: Emergency COMPLAINT: - ABD PAIN, V/D,COLD SYMPTOMS 03/13/2023 08:23 [facility] [place] TYPE: Emergency COMPLAINT: - COLD SYMPTOMS DIAGNOSES: - Acute upper respiratory infection, unspecified - Allergy status to analgesic agent - Allergy status to other drugs, medicaments and biological substances - Encounter for screening for COVID-19 - Epigastric pain - Hormone replacement therapy - Hyperlipidemia, unspecified - nursing home (current) use of inhaled steroids - tank terminal gauger (current) use of insulin - tank terminal gauger (current) use of oral hypoglycemic drugs - Nicotine dependence, unspecified, uncomplicated - Other fci (current) drug therapy - Other nonmedicinal substance allergy status - Right upper quadrant pain - Type 2 diabetes mellitus with hyperglycemia - Unspecified asthma, uncomplicated 03/05/2023 12:19 [facility] [place] TYPE: Emergency COMPLAINT: - HIGH BLOOD SUGAR, ABD PAIN DIAGNOSES: - Allergy status to analgesic agent - Allergy status to other drugs, medicaments and biological substances - Dehydration - Hormone replacement therapy - Hyperglycemia, unspecified - Hyperlipidemia, unspecified - tank terminal gauger (current) use of insulin - tank terminal gauger (current) use of oral hypoglycemic drugs - Nicotine dependence, unspecified, uncomplicated - Other fci (current) drug therapy - Other nonmedicinal substance [...] - Nicotine dependence, unspecified, uncomplicated - Other fci (current) drug therapy - Other nonmedicinal substance allergy status - Right lower quadrant pain - Type 2 diabetes mellitus without complications - Unspecified abdominal pain - Unspecified asthma, uncomplicated - Urinary tract infection, site not specified 12/05/2022 09:53 [facility] [place] TYPE: Emergency COMPLAINT: - ABD PAIN DIAGNOSES: - Allergy status to other drugs, medicaments and biological substances - Diarrhea, unspecified - tank terminal gauger (current) use of insulin - nursing home (current) use of oral hypoglycemic drugs - Nicotine dependence, unspecified, uncomplicated - Other fci (current) drug therapy - Other nonmedicinal substance allergy status - Type 2 diabetes mellitus without complications - Unspecified abdominal pain - Unspecified asthma, uncomplicated 08/31/2022 09:03 [facility] [place] TYPE: Emergency COMPLAINT: - ABD PAIN, VOMITING BLOOD DIAGNOSES: - Allergy status to other drugs, medicaments and biological substances - Chronic or unspecified peptic ulcer, site unspecified, with hemorrhage - Hyperlipidemia, unspecified - nursing home (current) use of insulin - Nicotine dependence, cigarettes, uncomplicated - Nicotine dependence, unspecified, uncomplicated - Other fci (current) drug therapy - Other nonmedicinal substance allergy status - Type 2 diabetes mellitus without complications - Unspecified asthma, uncomplicated - Vomiting, unspecified 08/21/2022 09:11 [facility] [place] TYPE: Emergency COMPLAINT: - ABDOM PAIN, VOMITING, DIARRHEA DIAGNOSES: - Allergy status to other drugs, medicaments and biological substances - Hyperlipidemia, unspecified - tank terminal gauger (current) use of insulin - Nausea with vomiting, unspecified - Nicotine dependence, unspecified, uncomplicated - Other fci (current) drug therapy - Other nonmedicinal substance allergy status - Right lower quadrant pain - Type 2 diabetes mellitus with hyperglycemia - Unspecified asthma, uncomplicated 08/13/2022 06:33 [facility] [place] TYPE: Emergency COMPLAINT: - ABD PAIN, VOMITING DIAGNOSES: - Allergy status to other drugs, medicaments and biological substances - Chronic obstructive pulmonary disease, unspecified - Hyperlipidemia, unspecified - tank terminal gauger (current) use of insulin - nursing home (current) use of oral hypoglycemic drugs - Other fci (current) drug therapy - Other nonmedicinal substance [...] - Nicotine dependence, unspecified, uncomplicated - Other roasterman (current) drug therapy - Other nonmedicinal substance allergy status - Pneumonia, unspecified organism - Type 2 diabetes mellitus without complications - Unspecified asthma, uncomplicated 07/31/2022 07:48 [facility] [place] TYPE: Emergency COMPLAINT: - FEVER DIAGNOSES: - Allergy status to other drugs, medicaments and biological substances - Fever, unspecified - Hyperlipidemia, unspecified - tank terminal gauger (current) use of insulin - tank terminal gauger (current) use of oral hypoglycemic drugs - Nicotine dependence, unspecified, uncomplicated - Other roasterman (current) drug therapy - Other nonmedicinal substance allergy status - Pneumonia, unspecified organism - Type 2 diabetes mellitus without complications - Unspecified asthma, uncomplicated - Unspecified ovarian cyst, right side 07/29/2022 06:41 [facility] [place] TYPE: Emergency COMPLAINT: - ABD PAIN, VOMITING DIAGNOSES: - Allergy status to other drugs, medicaments and biological substances - Hyperlipidemia, unspecified - tank terminal gauger (current) use of insulin - Nausea with vomiting, unspecified - Nicotine dependence, unspecified, uncomplicated - Other roasterman (current) drug therapy - Other nonmedicinal substance allergy status - Other ovarian cyst, right side - Type 2 diabetes mellitus without complications - Unspecified asthma, uncomplicated 07/27/2022 16:29 [facility] [place] TYPE: Emergency COMPLAINT: - VOMITING BLOOD DIAGNOSES: - Allergy status to other drugs, medicaments and biological substances - Hyperlipidemia, unspecified - nursing home (current) use of insulin - tank terminal gauger (current) use of oral hypoglycemic drugs - Nausea with vomiting, unspecified - Nicotine dependence, unspecified, uncomplicated - Other roasterman (current) drug therapy - Other nonmedicinal substance allergy status - Type 2 diabetes mellitus without complications - Unspecified abdominal pain - Unspecified asthma, uncomplicated 07/24/2022 19:22 [facility] [place] TYPE: Emergency COMPLAINT: - VAGINAL BLEEDING AFTER PROCEDURE DIAGNOSES: - Allergy status to other drugs, medicaments and biological substances - Hyperlipidemia, unspecified - tank terminal gauger (current) use of insulin - tank terminal gauger (current) use of oral hypoglycemic drugs - Nicotine dependence, unspecified, uncomplicated - Other roasterman (current) drug therapy - Other nonmedicinal substance [...] COVID-19 - Dehydration - Hyperlipidemia, unspecified - nursing home (current) use of insulin - Nicotine dependence, unspecified, uncomplicated - Other fci (current) drug therapy - Other nonmedicinal substance allergy status - Type 1 diabetes mellitus with hyperglycemia - Unspecified asthma, uncomplicated - Urinary tract infection, site not specified - Vomiting, unspecified 06/19/2022 05:43 [facility] [place] TYPE: Emergency COMPLAINT: - ABD PAIN AND HEART RACING DIAGNOSES: - Allergy status to other drugs, medicaments and biological substances - Hyperlipidemia, unspecified - tank terminal gauger (current) use of insulin - nursing home (current) use of oral hypoglycemic drugs - Nicotine dependence, unspecified, uncomplicated - Other roasterman (current) drug therapy - Other nonmedicinal substance [...] unspecified - Left upper quadrant pain - tank terminal gauger (current) use of insulin - Nicotine dependence, unspecified, uncomplicated - Other fci (current) drug therapy - Other nonmedicinal substance allergy status - Type 2 diabetes mellitus with hyperglycemia - Unspecified asthma, uncomplicated 04/28/2022 11:49 [facility]: Emergency DIAGNOSES: - tank terminal gauger (current) use of insulin - Procedure and treatment not carried out due to patient leaving prior to being seen by health care provider - Type 2 diabetes mellitus with hyperglycemia Plus 2 More Visits INPATIENT VISIT TRACKING (12 MO.) 02/16/2023 11:38 [...] hyponatremia - Hypocalcemia - Hypothyroidism, unspecified - nursing home (current) use of antibiotics - nursing home (current) use of inhaled steroids - tank terminal gauger (current) use of insulin - tank terminal gauger (current) use of oral hypoglycemic drugs - Nicotine dependence, cigarettes, uncomplicated - Other fci (current) drug therapy - Other nonmedicinal substance [...] COVID-19 - Hyperlipidemia, unspecified - Hypomagnesemia - tank terminal gauger (current) use of insulin - nursing home (current) use of oral hypoglycemic drugs - [...] - Hyperlipidemia, unspecified - Hypothyroidism, unspecified - tank terminal gauger (current) use of insulin - Nicotine dependence, cigarettes, uncomplicated - Nicotine dependence, unspecified, uncomplicated - Other fci (current) drug therapy - Other nonmedicinal substance [...] unspecified - Hypomagnesemia - Hypothyroidism, unspecified - nursing home (current) use of insulin - Nicotine dependence, unspecified, uncomplicated - Other roasterman (current) drug therapy - Type 2 diabetes mellitus with hyperglycemia - Type 2 diabetes mellitus with ketoacidosis without coma - Unspecified asthma, uncomplicated [email or web address]
[2023-03-18 06:51] LABS: BASOPHILS 0.8 % (0-2); HEMATOCRIT 37.4 % (35.0-50.0); HEMOGLOBIN 12.5 g/dL (12.0-18.0); MCH 27.4 (27-36); MCHC 33.3 g/dl (30-36); MCV 82.1 fl (81-99); MONOCYTES 10.5 % (0-12); NEUTROPHILS 71.7 % (39-80); PLATELET COUNT 276 K/uL (140-440); RBC 4.55 M/ul (4.3-5.7); RDW 13.7 (10.5-15.0)
[2023-03-18 07:05] LABS: ALBUMIN 2.9 g/dL (3.4-5.0); ALBUMIN/GLOBULIN RATIO 0.66 (1.1-2.4); ANION GAP 17.7 (7-21); BILIRUBIN, TOTAL 0.5 ng/dL (0.2-1.0); BUN/CREATININE RATIO 11.11 (6.0-28.6); CALCIUM 8.6 mg/dL (8.5-10.1); CREATININE, SERUM 0.72 mg/dL (0.55-1.02); POTASSIUM 3.7 mmol/L (3.5-5.1); PROTEIN, TOTAL 7.3 g/dL (6.4-8.2)
[2023-03-18 07:34] LABS: INFLUENZA B NAA NEGATIVE (NEGATIVE); RESPIRATORY SYNCYTIAL VIR NAA NEGATIVE (NEGATIVE)
[2023-03-18 07:44] LABS: PH, VENOUS 7.387 (7.31-7.41)
[2023-03-18 07:47] LABS: BILIRUBIN, URINE NEGATIVE (negative); BLOOD/HGB, URINE TRACE-I (Negative); KETONE, URINE SMALL (Negative); LEUK ESTERASE, URINE NEGATIVE (negative); NITRITE, URINE NEGATIVE (negative); PH, URINE 6.5 (5-7)
[2023-03-18 07:57] LABS: BACTERIA, URINE NONE SEEN /hpf (negative); CASTS, URINE NONE SEEN \\lpf; COLLECTION TYPE, URINE CLEAN CATCH; CRYSTALS, URINE NONE SEEN (0-1+); EPITHELIAL CELLS, URINE SQUAMOUS 3+ /lpf (0-1+); RED BLOOD CELLS, URINE 0-1 /hpf (0-5); REFLEX CULTURE, URINE No (No); WHITE BLOOD CELLS, URINE 0-1 /HPF (0-5)
[2023-03-18] MEDS ORDERED: ONDANSETRON ODT8 MG PO (08:40)
[2023-03-18] MEDS ORDERED: AZITHROMYCIN500 MG PO (08:40)
[2023-03-18] MEDS ORDERED: TRAMADOL HCL50 MG PO (08:40)
[2023-03-18 09:15] VITALS: BP 127/85
== END 2023-03-18 09:16 | disposition home or self-care (01) ==
LOC: ED 06:03
PROVIDERS: Family Medicine; Internal Medicine
DX: J18.9 Pneumonia, unspecified organism (principal); E11.65 Type 2 diabetes mellitus with hyperglycemia; F17.200 Nicotine dependence, unspecified, uncomplicated; Z88.8 Allergy status to other drugs, medicaments and biological substances; Z91.09 Other allergy status, other than to drugs and biological substances; Z79.899 Other long term (current) drug therapy; Z79.4 Long term (current) use of insulin; Z20.822 Contact with and (suspected) exposure to COVID-19
CPT/HCPCS: 36415; 71045; 74177; 80053; 81001; 82010; 82803; 84703; 85025; 87502; 96361; 96375; 99284-25; A9270; C9803; J1815; J2270; J2405; J7121; Q9967; U0002

== ENCOUNTER 2023-03-21 09:40 | Emergency (ER) | payer MEDICARE, OTHER ==
[~2023-03-21] VITALS: Ht 165.1 cm; Wt 89.3 kg
[~2023-03-21 09:40] MED LIST changes: +AZITHROMYCIN500 MG PO; +TRAMADOL HCL50 MG PO
--- OUTSIDE RECORDS SUMMARY | 2023-03-21 09:47 | XMS ---
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 06/08/2021-Current PHONE: [phone] -Naty- Dentist: [facility] PHONE: [phone] Dior Curran Counselor: Mental Health Current PHONE: [phone] Heydi has no Care Guidelines for this patient. Care History Medical/Surgical 01/25/2020 [facility] - PATIENT IS CURRENTLY WORKING WITH [employer]- POINT OF CONTACT IS JOSE GUADALUPE HERNANDEZ- [phone] - JOSE GUADALUPE IS AWARE THAT PATIENT DOES NOT HAVE A PCP AND IS AWARE OF THE CLINIC RESOURCES IN [place]OWN SHE WILL WORK WITH PATIENT TO SET UP A PCP. Behavioral 02/02/2019 [facility] - OLD Client is established with [facility] Cj with Dior Curran. Her Team has been unable to contact her, please have her reach out to schedule and call us to give us her updated phone number.\T\ nbsp; E.D. VISIT COUNT (12 MO.) [facility] 1 [facility] (Mavis Gamble) TOTAL 23 NOTE: Visits indicate total known visits. ED/UCC VISIT TRACKING (12 MO.) 03/21/2023 09:41 [facility] [place] TYPE: Emergency COMPLAINT: - ABD PAIN, COLD SYMPTOMS 03/18/2023 06:04 [facility] [place] TYPE: Emergency [...] Hormone replacement therapy - Hyperlipidemia, unspecified - extermination inspector (current) use of inhaled steroids - [facility] (current) use of insulin - extermination inspector (current) use of oral hypoglycemic drugs - Nicotine dependence, unspecified, uncomplicated - Other intermediate school teacher (current) drug therapy - Other nonmedicinal substance [...] - Hyperglycemia, unspecified - Hyperlipidemia, unspecified - [facility] (current) use of insulin - [facility] (current) use of oral hypoglycemic drugs - [...] - Nicotine dependence, unspecified, uncomplicated - Other intermediate school teacher (current) drug therapy - Other nonmedicinal substance allergy status - Right lower quadrant pain - Type 2 diabetes mellitus without complications - Unspecified abdominal pain - Unspecified asthma, uncomplicated - Urinary tract infection, site not specified 12/05/2022 09:53 [facility] [place] TYPE: Emergency COMPLAINT: - ABD PAIN DIAGNOSES: - Allergy status to other drugs, medicaments and biological substances - Diarrhea, unspecified - [facility] (current) use of insulin - extermination inspector (current) use of oral hypoglycemic drugs - Nicotine dependence, unspecified, uncomplicated - Other intermediate school teacher (current) drug therapy - Other nonmedicinal substance allergy status - Type 2 diabetes mellitus without complications - Unspecified abdominal pain - Unspecified asthma, uncomplicated 08/31/2022 09:03 [facility] [place] TYPE: Emergency COMPLAINT: - ABD PAIN, VOMITING BLOOD DIAGNOSES: - Allergy status to other drugs, medicaments and biological substances - Chronic or unspecified peptic ulcer, site unspecified, with hemorrhage - Hyperlipidemia, unspecified - extermination inspector (current) use of insulin - Nicotine dependence, [...] and biological substances - Hyperlipidemia, unspecified - [facility] (current) use of insulin - Nausea with vomiting, unspecified - Nicotine dependence, unspecified, uncomplicated - Other long-term (current) drug therapy - Other nonmedicinal substance allergy status - Right lower quadrant pain - Type 2 diabetes mellitus with hyperglycemia - Unspecified asthma, uncomplicated 08/13/2022 06:[address] [facility] [place] TYPE: Emergency COMPLAINT: - ABD PAIN, VOMITING DIAGNOSES: - Allergy status to other drugs, medicaments and biological substances - Chronic obstructive pulmonary disease, unspecified - Hyperlipidemia, unspecified - extermination inspector (current) use of insulin - extermination inspector (current) use of oral hypoglycemic drugs - Other long-term (current) drug therapy - [...] - Nicotine dependence, unspecified, uncomplicated - Other intermediate school teacher (current) drug therapy - Other nonmedicinal substance allergy status - Pneumonia, unspecified organism - Type 2 diabetes mellitus without complications - Unspecified asthma, uncomplicated 07/31/2022 07:48 [facility] [place] TYPE: Emergency COMPLAINT: - FEVER DIAGNOSES: - Allergy status to other drugs, medicaments and biological substances - Fever, unspecified - Hyperlipidemia, unspecified - extermination inspector (current) use of insulin - [facility] (current) use of oral hypoglycemic drugs - Nicotine dependence, unspecified, uncomplicated - Other intermediate school teacher (current) drug therapy - Other nonmedicinal substance allergy status - Pneumonia, unspecified organism - Type 2 diabetes mellitus without complications - Unspecified asthma, uncomplicated - Unspecified ovarian cyst, right side 07/29/2022 06:41 [facility] [place] TYPE: Emergency COMPLAINT: - ABD PAIN, VOMITING DIAGNOSES: - Allergy status to other drugs, medicaments and biological substances - Hyperlipidemia, unspecified - [facility] (current) use of insulin - Nausea with vomiting, unspecified - Nicotine dependence, unspecified, uncomplicated - Other intermediate school teacher (current) drug therapy - Other nonmedicinal substance allergy status - Other ovarian cyst, right side - Type 2 diabetes mellitus without complications - Unspecified asthma, uncomplicated 07/27/2022 16:29 [facility] [place] TYPE: Emergency COMPLAINT: - VOMITING BLOOD DIAGNOSES: - Allergy status to other drugs, medicaments and biological substances - Hyperlipidemia, unspecified - extermination inspector (current) use of insulin - [facility] (current) use of oral hypoglycemic drugs - [...] and biological substances - Hyperlipidemia, unspecified - extermination inspector (current) use of insulin - extermination inspector (current) use of oral hypoglycemic drugs - [...] COVID-19 - Dehydration - Hyperlipidemia, unspecified - [facility] (current) use of insulin - Nicotine dependence, unspecified, uncomplicated - Other intermediate school teacher (current) drug therapy - Other nonmedicinal substance allergy status - Type 1 diabetes mellitus with hyperglycemia - Unspecified asthma, uncomplicated - Urinary tract infection, site not specified - Vomiting, unspecified 06/19/2022 05:43 [facility] [place] TYPE: Emergency COMPLAINT: - ABD PAIN AND HEART RACING DIAGNOSES: - Allergy status to other drugs, medicaments and biological substances - Hyperlipidemia, unspecified - [facility] (current) use of insulin - [facility] (current) use of oral hypoglycemic drugs - Nicotine dependence, unspecified, uncomplicated - Other intermediate school teacher (current) drug therapy - Other nonmedicinal substance [...] unspecified - Left upper quadrant pain - extermination inspector (current) use of insulin - Nicotine dependence, unspecified, uncomplicated - Other intermediate school teacher (current) drug therapy - Other nonmedicinal substance allergy status - Type 2 diabetes mellitus with hyperglycemia - Unspecified asthma, uncomplicated Plus 3 More Visits INPATIENT VISIT TRACKING (12 MO.) [...] hyponatremia - Hypocalcemia - Hypothyroidism, unspecified - [facility] (current) use of antibiotics - extermination inspector (current) use of inhaled steroids - extermination inspector (current) use of insulin - [facility] (current) use of oral hypoglycemic drugs - Nicotine dependence, cigarettes, uncomplicated - Other long-term (current) drug therapy - Other nonmedicinal substance allergy status - Other specified postprocedural states - Personal history of other diseases of the digestive system - Pure hyperglyceridemia - Tubal ligation status - Type 2 diabetes mellitus with hyperosmolarity without nonketotic hyperglycemic-hyperosmolar coma ([facility]) - Type 2 diabetes mellitus with ketoacidosis without coma - Unspecified asthma, uncomplicated 07/12/2022 14:[address] [facility] [place] TYPE: Observation COMPLAINT: - UPPER GI BLEED DIAGNOSES: - Allergy status to other antibiotic agents - Allergy status to other drugs, medicaments and biological substances - Contact with and (suspected) exposure to COVID-19 - Hyperlipidemia, unspecified - Hypomagnesemia - extermination inspector (current) use of insulin - extermination inspector (current) use of oral hypoglycemic drugs - [...] - Hyperlipidemia, unspecified - Hypothyroidism, unspecified - extermination inspector (current) use of insulin - Nicotine dependence, cigarettes, uncomplicated - Nicotine dependence, unspecified, uncomplicated - Other intermediate school teacher (current) drug therapy - Other nonmedicinal substance [...] unspecified - Hypomagnesemia - Hypothyroidism, unspecified - extermination inspector (current) use of insulin - Nicotine dependence, unspecified, uncomplicated - Other long-term (current) drug therapy - Type 2 diabetes mellitus with hyperglycemia - Type 2 diabetes mellitus with ketoacidosis without coma - Unspecified asthma, uncomplicated [email or web address]
[2023-03-21 10:36] LABS: BILIRUBIN, URINE NEGATIVE (negative); BLOOD/HGB, URINE TRACE-I (Negative); KETONE, URINE SMALL (Negative); LEUK ESTERASE, URINE TRACE (negative); NITRITE, URINE NEGATIVE (negative)
[2023-03-21 10:48] LABS: PH, VENOUS 7.443 (7.31-7.41)
[2023-03-21 10:49] LABS: BACTERIA, URINE 2+ /hpf (negative); CASTS, URINE NONE SEEN \\lpf; CRYSTALS, URINE NONE SEEN (0-1+); EPITHELIAL CELLS, URINE SQUAMOUS 3+ /lpf (0-1+); RED BLOOD CELLS, URINE 0-1 /hpf (0-5)
[2023-03-21 10:50] LABS: BASOPHILS 0.6 % (0-2); HEMATOCRIT 39.4 % (35.0-50.0); HEMOGLOBIN 13.3 g/dL (12.0-18.0); MCH 27.4 (27-36); MCHC 33.7 g/dl (30-36); MCV 81.4 fl (81-99); MONOCYTES 9.8 % (0-12); NEUTROPHILS 73.6 % (39-80); PLATELET COUNT 333 K/uL (140-440); RBC 4.84 M/ul (4.3-5.7); RDW 13.7 (10.5-15.0)
[2023-03-21 10:50] LABS: COLLECTION TYPE, URINE CLEAN CATCH; REFLEX CULTURE, URINE No (No)
[2023-03-21 11:04] LABS: ALBUMIN 3.1 g/dL (3.4-5.0); ALBUMIN/GLOBULIN RATIO 0.63 (1.1-2.4); ANION GAP 14.3 (7-21); BILIRUBIN, TOTAL 0.4 ng/dL (0.2-1.0); BUN/CREATININE RATIO 12.65 (6.0-28.6); CALCIUM 9.8 mg/dL (8.5-10.1); CREATININE, SERUM 0.79 mg/dL (0.55-1.02); POTASSIUM 4.3 mmol/L (3.5-5.1)
[2023-03-21 13:38] VITALS: BP 130/98
== END 2023-03-21 13:38 | disposition home or self-care (01) ==
LOC: ED 09:40
PROVIDERS: Emergency Medicine
DX: J18.9 Pneumonia, unspecified organism (principal); R10.10 Upper abdominal pain, unspecified; E11.9 Type 2 diabetes mellitus without complications; F17.200 Nicotine dependence, unspecified, uncomplicated; Z88.8 Allergy status to other drugs, medicaments and biological substances; Z91.09 Other allergy status, other than to drugs and biological substances; Z79.890 Hormone replacement therapy; Z79.899 Other long term (current) drug therapy; Z79.4 Long term (current) use of insulin
CPT/HCPCS: 36415; 71045; 80053; 81001; 82010; 82803; 83690; 84703; 85025; 96365; 96366; 96375; 99284-25; A9270; J0696; J2405; J7030

== ENCOUNTER 2023-04-27 06:44 | Observation (INO) | payer MEDICARE, OTHER ==
[~2023-04-27] VITALS: Ht 165.1 cm; Wt 84.4 kg
[~2023-04-27 06:44] MED LIST changes: +NYSTATIN100000 UN1 PO
[2023-04-27 08:09] LABS: POTASSIUM 3.9 mmol/L (3.5-5.1)
[2023-04-27 08:24] LABS: HEMATOCRIT 42.5 % (35.0-50.0); HEMOGLOBIN 14.5 g/dL (12.0-18.0); MCH 27.5 (27-36); MCV 80.7 fl (81-99); PLATELET COUNT 318 K/uL (140-440); RBC 5.27 M/ul (4.3-5.7); RDW 13.4 (10.5-15.0)
[2023-04-27 08:26] LABS: ANION GAP 23.9 (7-21)
[2023-04-27 08:43] LABS: BASOPHILS, MANUAL DIFF 3; LYMPHOCYTES, MANUAL DIFF 20; MONOCYTES, MANUAL DIFF 5; NEUTROPHILS, MANUAL DIFF 72
[2023-04-27 08:53] LABS: BILIRUBIN, URINE NEGATIVE (negative); BLOOD/HGB, URINE TRACE-I (Negative); KETONE, URINE SMALL (Negative); LEUK ESTERASE, URINE NEGATIVE (negative); NITRITE, URINE POSITIVE (negative)
[2023-04-27 09:00] LABS: BILIRUBIN, TOTAL 0.6 ng/dL (0.2-1.0); PROTEIN, TOTAL 7.4 g/dL (6.4-8.2)
[2023-04-27 09:01] LABS: RED BLOOD CELLS, URINE 0-1 /hpf (0-5)
[2023-04-27 09:02] LABS: CRYSTALS, URINE NONE SEEN (0-1+); EPITHELIAL CELLS, URINE SQUAMOUS 1+ /lpf (0-1+)
[2023-04-27 09:03] LABS: BACTERIA, URINE 1+ /hpf (negative); CASTS, URINE NONE SEEN \\lpf
[2023-04-27 09:04] LABS: COLLECTION TYPE, URINE CLEAN CATCH; REFLEX CULTURE, URINE Yes (No)
[2023-04-27 09:32] LABS: ALBUMIN 3.2 g/dL (3.4-5.0); ALBUMIN/GLOBULIN RATIO 0.76 (1.1-2.4); BUN/CREATININE RATIO 27.77 (6.0-28.6); CREATININE, SERUM 0.54 mg/dL (0.55-1.02)
[2023-04-27 11:56] LABS: ANION GAP 22.1 (7-21); POTASSIUM 3.1 mmol/L (3.5-5.1)
[2023-04-27 12:56] LABS: BUN/CREATININE RATIO 24.48 (6.0-28.6); CALCIUM 7.7 mg/dL (8.5-10.1); CREATININE, SERUM 0.49 mg/dL (0.55-1.02)
[2023-04-27 15:11] LABS: ANION GAP 17.2 (7-21); BUN/CREATININE RATIO 26.19 (6.0-28.6); CALCIUM 7.4 mg/dL (8.5-10.1); CREATININE, SERUM 0.42 mg/dL (0.55-1.02); POTASSIUM 3.2 mmol/L (3.5-5.1)
[2023-04-27 18:14] VITALS: BP 119/72
[2023-04-27 18:17] VITALS: BP 119/72
[2023-04-27 20:00] VITALS: BP 130/81
[2023-04-28 01:38] VITALS: BP 111/59
[2023-04-28 05:58] VITALS: BP 132/89
[2023-04-28 06:15] LABS: ANION GAP 21.6 (7-21); CALCIUM 6.5 mg/dL (8.5-10.1); POTASSIUM 3.6 mmol/L (3.5-5.1)
[2023-04-28 06:35] LABS: PLATELET COUNT 309 K/uL (140-440)
[2023-04-28 06:55] LABS: CREATININE, SERUM 0.44 mg/dL (0.55-1.02)
[2023-04-28 07:07] LABS: HEMATOCRIT 43.4 % (35.0-50.0); MCV 81.3 fl (81-99); RBC 5.34 M/ul (4.3-5.7)
[2023-04-28 07:08] LABS: MCH 26.8 (27-36); MCHC 32.9 g/dl (30-36); RDW 13.7 (10.5-15.0)
[2023-04-28 07:09] LABS: HEMOGLOBIN 14.3 g/dL (12.0-18.0)
[2023-04-28 07:14] LABS: BANDS, MANUAL DIFF 3; BASOPHILS, MANUAL DIFF 1; LYMPHOCYTES, MANUAL DIFF 39; MONOCYTES, MANUAL DIFF 4; NEUTROPHILS, MANUAL DIFF 53
[2023-04-28] MEDS ORDERED: ICOSAPENT ETHYL1 GM PO (09:18)
[2023-04-28 10:15] VITALS: BP 122/80
[2023-04-28] MEDS ORDERED: SUCRALFATE1 GM PO (10:19)
[2023-04-28 13:29] VITALS: BP 125/90
== END 2023-04-28 13:50 | disposition home or self-care (01) ==
LOC: ED 06:44 → MS 06:46
PROVIDERS: Emergency Medicine; ADMIT Internal Medicine; ATTEND Internal Medicine
DX: E11.65 Type 2 diabetes mellitus with hyperglycemia (principal); E87.6 Hypokalemia; E87.1 Hypo-osmolality and hyponatremia; E78.5 Hyperlipidemia, unspecified; J45.909 Unspecified asthma, uncomplicated; F17.210 Nicotine dependence, cigarettes, uncomplicated; Z88.6 Allergy status to analgesic agent; Z88.8 Allergy status to other drugs, medicaments and biological substances; Z88.2 Allergy status to sulfonamides; Z79.4 Long term (current) use of insulin; Z79.899 Other long term (current) drug therapy
CPT/HCPCS: 36415; 74177; 80048; 80053; 81001; 82010; 82800; 83690; 84703; 85025; 87088; 96361; 96376; 99285-25; A9270; G0378; J1815; J2405; J7030; Q9967

== ENCOUNTER 2023-05-20 07:49 | Emergency (ER) | payer MEDICARE, OTHER ==
[~2023-05-20] VITALS: Ht 165.1 cm; Wt 96.2 kg
[~2023-05-20 07:49] MED LIST changes: +ICOSAPENT ETHYL1 GM PO
[2023-05-20] MEDS ORDERED: HYDROCODON-ACE1 EA10 PO (09:04)
[2023-05-20] MEDS ORDERED: LIDOCAINE1 EACH TD (09:04)
[2023-05-20 09:15] VITALS: BP 132/99
== END 2023-05-20 09:14 | disposition home or self-care (01) ==
LOC: ED 07:49
DX: S29.012A Strain of muscle and tendon of back wall of thorax, initial encounter (principal); E11.9 Type 2 diabetes mellitus without complications; E78.5 Hyperlipidemia, unspecified; J45.909 Unspecified asthma, uncomplicated; F17.200 Nicotine dependence, unspecified, uncomplicated; Z91.048 Other nonmedicinal substance allergy status; Z88.6 Allergy status to analgesic agent; Z88.8 Allergy status to other drugs, medicaments and biological substances; Z79.4 Long term (current) use of insulin; Z79.84 Long term (current) use of oral hypoglycemic drugs; Z79.899 Other long term (current) drug therapy; X58.XXXA Exposure to other specified factors, initial encounter
CPT/HCPCS: 71045; 99283-25; A9270

== ENCOUNTER 2023-05-22 13:11 | Emergency (ER) | payer MEDICARE, OTHER ==
[~2023-05-22] VITALS: Ht 165.1 cm; Wt 81.0 kg
[~2023-05-22 13:11] MED LIST changes: +LIDOCAINE1 EACH TD
[2023-05-22 14:12] LABS: HEMATOCRIT 45.7 % (35.0-50.0); HEMOGLOBIN 19.7 g/dL (12.0-18.0); MCH 38.7 (27-36); MCV 89.8 fl (81-99); PLATELET COUNT 497 K/uL (140-440); RBC 5.08 M/ul (4.3-5.7); RDW 15.1 (10.5-15.0)
[2023-05-22 14:35] LABS: AMPHETAMINES, UR NEGATIVE (NEGATIVE); BARBITURATES, UR NEGATIVE (NEGATIVE); BENZODIAZEPINES, UR NEGATIVE (NEGATIVE); COCAINE, UR NEGATIVE (NEGATIVE); MARIJUANA (THC), UR NEGATIVE (NEGATIVE)
[2023-05-22 14:36] LABS: BUPRENORPHINE,UR NEGATIVE (NEGATIVE); MDMA, UR NEGATIVE (NEGATIVE); METHADONE, UR NEGATIVE (NEGATIVE); METHAMPHETAMINE, UR NEGATIVE (NEGATIVE); OPIATES, UR NEGATIVE (NEGATIVE); OXYCODONE, UR NEGATIVE (NEGATIVE); PHENCYCLIDINE, UR NEGATIVE (NEGATIVE); TRICYCLIC ANTIDEPRESSANT, UR NEGATIVE (NEGATIVE)
[2023-05-22 15:05] LABS: ALCOHOL, MEDICAL <3 ng/dL (<3)
[2023-05-22 15:46] LABS: INFLUENZA B NAA NEGATIVE (NEGATIVE); RESPIRATORY SYNCYTIAL VIR NAA NEGATIVE (NEGATIVE)
[2023-05-22 15:51] LABS: BANDS, MANUAL DIFF 6; BASOPHILS, MANUAL DIFF 2; LYMPHOCYTES, MANUAL DIFF 25; MONOCYTES, MANUAL DIFF 14; NEUTROPHILS, MANUAL DIFF 51
[2023-05-22 15:54] LABS: UREA NITROGEN 8 mg/dL (7-18)
[2023-05-22 16:13] LABS: MCHC 34.4 g/dl (30-36)
[2023-05-22 16:27] LABS: POTASSIUM 4.9 mmol/L (3.5-5.1)
[2023-05-22 16:28] LABS: CHLORIDE 88 mmol/L (98-107)
[2023-05-22 16:29] LABS: ALBUMIN 1.9 g/dL (3.4-5.0); ALBUMIN/GLOBULIN RATIO 0.44 (1.1-2.4); PROTEIN, TOTAL 6.2 g/dL (6.4-8.2)
[2023-05-22 16:32] LABS: ANION GAP 33.9 (7-21); CARBON DIOXIDE 5 mmol/L (21-32)
[2023-05-22 16:34] LABS: AST (SGOT) 99 U/L (15-37); BUN/CREATININE RATIO 5.06 (6.0-28.6); CREATININE, SERUM 1.58 mg/dL (0.55-1.02); GLOMERULAR FILTRATION RATE,EST 44 mL/min (>60)
[2023-05-22 16:35] LABS: ALKALINE PHOSPHATASE 133 U/L (46-116); ALT (SGPT) 36 U/L (14-59)
[2023-05-22 16:56] LABS: CHOLESTEROL 335 mg/dL (<200); CHOLESTEROL/HDL RATIO 13.4; HDL CHOLESTEROL 25 (40-60)
[2023-05-22 16:57] LABS: TRIGLYCERIDES 2679 ng/dL (<150)
[2023-05-22 19:30] LABS: ALBUMIN 2.5 g/dL (3.4-5.0); ALBUMIN/GLOBULIN RATIO 0.69 (1.1-2.4); BILIRUBIN, TOTAL 1.1 ng/dL (0.2-1.0); BUN/CREATININE RATIO 18.36 (6.0-28.6); CREATININE, SERUM 1.96 mg/dL (0.55-1.02); POTASSIUM 4.1 mmol/L (3.5-5.1); PROTEIN, TOTAL 6.1 g/dL (6.4-8.2)
[2023-05-22 19:32] LABS: HEMATOCRIT 40.6 % (35.0-50.0); HEMOGLOBIN 13.2 g/dL (12.0-18.0); MCH 27.2 (27-36); MCV 83.9 fl (81-99); PLATELET COUNT 400 K/uL (140-440); RBC 4.84 M/ul (4.3-5.7); RDW 14.6 (10.5-15.0)
[2023-05-22 19:40] LABS: MCHC 32.5 g/dl (30-36)
[2023-05-22 19:50] LABS: BANDS, MANUAL DIFF 8; LYMPHOCYTES, MANUAL DIFF 17; MONOCYTES, MANUAL DIFF 8; NEUTROPHILS, MANUAL DIFF 67
[2023-05-22 19:53] LABS: ANION GAP 32.1 (7-21)
[2023-05-22 19:55] LABS: CALCIUM 5.9 mg/dL (8.5-10.1)
[2023-05-22 22:05] VITALS: BP 92/49
--- NOTE | 2023-05-22 22:25 | EKG ---
[facility] [address] [facility] [place] [address] Signed Atrial fibrillation with slow ventricular response Nonspecific intraventricular block Abnormal ECG No previous ECGs available Confirmed by Melinda Justin MD () on 05/22/2023 10:25:33 PM Electronically Signed By: MELINDA JUSTIN MD 05/22/232224 PATIENT NAME: SHAMEKA LEE Electrocardiogram DATE OF : 88 PHYSICIAN: MELINDA JUSTIN MD REPORT #: [id number] REPORT IS CONFIDENTIAL AND NOT TO BE RELEASED WITHOUT AUTHORIZATION
[2023-05-24 09:13] LABS: HIV 1,2 COMBO ANTIGEN/ANTIBODY Negative (Negative)
[2023-05-24 13:56] LABS: BETA-HYDROXYBUTYRIC ACID 127.5 mg/dL (0.0-3.0)
== END 2023-05-22 22:05 | disposition short-term general hospital (02) ==
LOC: ED 13:11 → EDBD 13:12 → ED 13:12
PROVIDERS: Emergency Medicine
DX: E11.10 Type 2 diabetes mellitus with ketoacidosis without coma (principal); E78.1 Pure hyperglyceridemia; J96.90 Respiratory failure, unspecified, unspecified whether with hypoxia or hypercapnia
CPT/HCPCS: 31500; 36415; 36600; 70450; 71045; 71260; 74177; 80048; 80053; 80061; 80074; 80307; 82010; 82803; 83605; 83735; 84484; 84703; 85025; 87502; 93005; 93010; C9803; G0480; J0330; J1815; J2250; J7030; Q9967; U0002

== ENCOUNTER 2023-06-09 12:46 | Observation (INO) | payer MEDICARE, OTHER ==
[~2023-06-09] VITALS: Ht 165.1 cm; Wt 76.8 kg
[2023-06-09] MEDS ORDERED: GEMFIBROZIL600 MG PO (13:04)
[2023-06-09] MEDS ORDERED: HYDROMORPHONE HC4 MG PO (13:04)
[2023-06-09 13:47] LABS: BASOPHILS 1.4 % (0-2); EOSINOPHILS 0.4 % (0-6); HEMATOCRIT 38.3 % (35.0-50.0); HEMOGLOBIN 12.3 g/dL (12.0-18.0); LYMPHOCYTES 11.4 % (24-44); MCH 26.8 (27-36); MCHC 32.3 g/dl (30-36); MONOCYTES 3.3 % (0-12); NEUTROPHILS 83.5 % (39-80); PLATELET COUNT 714 K/uL (140-440); RBC 4.61 M/ul (4.3-5.7); RDW 14.2 (10.5-15.0)
[2023-06-09 14:13] LABS: ALBUMIN 2.9 g/dL (3.4-5.0); ALBUMIN/GLOBULIN RATIO 0.48 (1.1-2.4); ANION GAP 21.1 (7-21); BILIRUBIN, TOTAL 0.4 ng/dL (0.2-1.0); BUN/CREATININE RATIO 15.58 (6.0-28.6); CALCIUM 10.3 mg/dL (8.5-10.1); CREATININE, SERUM 0.77 mg/dL (0.55-1.02); POTASSIUM 5.1 mmol/L (3.5-5.1)
[2023-06-09 15:49] LABS: BILIRUBIN, URINE POSITIVE (negative); BLOOD/HGB, URINE TRACE-I (Negative); KETONE, URINE >=80 (Negative); LEUK ESTERASE, URINE NEGATIVE (negative); NITRITE, URINE NEGATIVE (negative)
[2023-06-09 16:00] LABS: EPITHELIAL CELLS, URINE SQUAMOUS 3+ /lpf (0-1+); RED BLOOD CELLS, URINE 0-1 /hpf (0-5); WHITE BLOOD CELLS, URINE 0-1 /HPF (0-5)
[2023-06-09 16:01] LABS: BACTERIA, URINE NONE SEEN /hpf (negative); CASTS, URINE GRANULAR 1+ \\lpf; COLLECTION TYPE, URINE CLEAN CATCH; REFLEX CULTURE, URINE No (No)
[2023-06-09 20:09] VITALS: BP 137/80
--- NOTE | 2023-06-09 20:17 | NUR ---
Patient transferred via gurney from ED to MS rm 124. Patient ambulated to bed, weighed per standing scale, 1 person assist to steady. Report provided by ED-RN. provided call light and charge out clerk doing admission.
--- NOTE | 2023-06-09 21:00 | NUR ---
Patient resting in bed watching TV, requested and given pain medication, Ap tachy at 120's, lungs with decreased BS, c/o abdominal pain across the upper quads of abdomine. BT's active, patient states that she is having regular BM's, c/o nausea on and off. none at this time. Blood sugar 194 given 3 units insulin per SS and 10 scheduled glargine. no furhter needs at this time, call light within reach.
--- NOTE | 2023-06-09 22:36 | NUR ---
Patient resting with eyes closed, appears comfortable, RR even and unlabored, call light within reach.
--- NOTE | 2023-06-09 23:25 | NUR ---
Patient awake, requested and given pain medication, no further needs, call light within reach.
[2023-06-10] VITALS (7 sets, daily range): BP systolic 112–133; BP diastolic 66–89
--- NOTE | 2023-06-10 00:15 | NUR ---
Patient resting, appears comfortable, no noted distress, RR even and unlabored, call light within reach.
--- NOTE | 2023-06-10 02:21 | NUR ---
Patient awake, requested and given pain medication, Assessment without change, VSS, call light within reach.
--- NOTE | 2023-06-10 04:16 | NUR ---
Patient called, requested and given pain medication, abdominal pain without change, VSS, IV infusing @ 125/h. Patient has slept through the night inbetween pain medication. Has had no c/o nausea, ate yogurt during the night and tolerted. is now resting with eyes closed, appears comfortable, call light within reach.
[2023-06-10 05:36] LABS: HEMOGLOBIN 9.1 g/dL (12.0-18.0)
[2023-06-10 05:39] LABS: MCH 26.8 (27-36); MCHC 32.3 g/dl (30-36); PLATELET COUNT 480 K/uL (140-440); RBC 3.38 M/ul (4.3-5.7); RDW 13.9 (10.5-15.0)
[2023-06-10 05:52] LABS: ALBUMIN 2.1 g/dL (3.4-5.0); ALBUMIN/GLOBULIN RATIO 0.47 (1.1-2.4); ANION GAP 11.9 (7-21); BILIRUBIN, TOTAL 0.2 ng/dL (0.2-1.0); BUN/CREATININE RATIO 17.64 (6.0-28.6); CALCIUM 8.4 mg/dL (8.5-10.1); CREATININE, SERUM 0.51 mg/dL (0.55-1.02); PHOSPHORUS, INORGANIC 3.6 mg/dL (2.5-4.9); POTASSIUM 3.9 mmol/L (3.5-5.1); PROTEIN, TOTAL 6.6 g/dL (6.4-8.2)
[2023-06-10 06:22] LABS: BANDS, MANUAL DIFF 3; BASOPHILS, MANUAL DIFF 2; EOSINOPHILS, MANUAL DIFF 1; LYMPHOCYTES, MANUAL DIFF 24; MONOCYTES, MANUAL DIFF 3; NEUTROPHILS, MANUAL DIFF 67
--- NOTE | 2023-06-10 06:29 | NUR ---
IV ALARMING, PT BRIEFLY OPENED EYES WHEN DOOR OPENED, BENT ARM, IV NOW INFUSING. CLOSED EYES QUICKLY, NO NEEDS EXPRESSED.
--- NOTE | 2023-06-10 06:54 | NUR ---
Patients labs back, Magnesium 1.0 MD notified and 4gm IV Magnesium ordered. Patient calling and requesting and given pain medication.
--- NOTE | 2023-06-10 08:50 | NUR ---
CHIEF INFORMATICS OFFICER ENTERED ROOM TO GREET PT FOR THE MORNING. PT RECEIVED A WARM WASHRAGE FOR HER FACE. PT WANTED TO REMAIN RESTING IN HER BED. PT REPORTED FEELING NAUSEAS. CHIEF INFORMATICS OFFICER REPORTED THIS TO THE NURSE. NO OTHER CONCERNS AND CALL LIGHT IS WITHIN REACH
--- NOTE | 2023-06-10 09:30 | NUR ---
NET SORTER RECORDED VITAL SIGNS. PT SAID SHE WAS WAITING TO EAT HER BREAKFAST UNTIL SHE RECEIVED A PAIN MED. NET SORTER DID NOT CHART I/OS FOR THIS REASON. WILL CHART WHEN PT FINISHES EATING. CALL [facility] WITH[facility] REACH
--- NOTE | 2023-06-10 09:54 | NUR ---
Admin dilaudid 0.5mg IV at this time for reports of 10/10 abdominal pain. Patient reports her nausea has subsided. Patient now on room air, respirations non labored, sp02 97%. No current needs, personal supplies and call light within reach.
--- NOTE | 2023-06-10 11:01 | NUR ---
Admin dilaudid 0.5mg IV admin at this time for reports of 10/10 abdominal pain.
--- NOTE | 2023-06-10 11:36 | NUR ---
Patient calling staff every 15-20 minutes requesting narcotics. Patient reports her pain comes down to "an eight" after dilaudid administration. Patient reports nausea as well, no vomiting noted. Compazine 10mg iv admin on pump per protocol at this time.
--- NOTE | 2023-06-10 11:46 | NUR ---
UR NOTE [facility] ABDOMINAL PAIN, UNDIAGNOSED: OBSERVATION CARE (ISC) 06/09/23 MET OBSERVATION CARE ADMISSION CRITERIA
--- NOTE | 2023-06-10 11:49 | NUR ---
DIGNA ASSISTED PT WITH A SHOWER CAP HAIR WASH AND COMBING HER HAIR. PT VISITING WITH CORNER BEAD OPERATOR. CALL LIGHT WITHIN REACH
[2023-06-10] MEDS ORDERED: CREON DR 12,001 EACH PO (12:02)
--- NOTE | 2023-06-10 12:11 | NUR ---
Admin dilaudid 0.5mg iv for reports of 8/10 abdominal pain. Patient reports recent admin of compazine helped with nausea.
--- NOTE | 2023-06-10 12:55 | NUR ---
PATIENT IS VISITING WITH THE [facility] NURSE JOSE GARCIA RN [phone]. CONG HELPS PATIENT WITH NEEDS CONCERING THE PATIENT'S 1 YR. OLD.THE PATIIENT LIVES WITH HER BOYFRIEND AND CHILD. PATIENT GETS FOOD STAMPS. PATIENT'S BOYFRIEND IS VERY HELPFUL. PATIENT HAS HAD ETOH AND DRUG ABUSE ISSUES IN THE RECENT PAST.THE PATIENT HAS MANY CHRONIC HEALTH ISSUES. PATIENT HAS A 2 YR. OLD CHILD WHOM THE PATIENT TAKES CARE OF WHEN THE PATIENT IS WELL. THE PATIENT USES A WALKER NEEDED. PATIENT PLANS TO GO HOME WITH HER BOYFRIEND WHEN DISCHARGED
[2023-06-10] MEDS ORDERED: HYDROMORPHONE HC4 MG PO (12:59)
[2023-06-10] MEDS ORDERED: DIVALPROEX SOD250 MG PO (13:06)
[2023-06-10] MEDS ORDERED: VRAYLAR6 MG PO (13:07)
--- NOTE | 2023-06-10 13:21 | NUR ---
Admin dilaudid 0.5mg IV for reports of 8/10 abdominal pain.
--- NOTE | 2023-06-10 13:49 | NUR ---
FLAT SURFACER RECORDED VITALS AND I/OS. PT STATES SHE IS GOING TO REST. CALL LIGHT IN REACH
--- NOTE | 2023-06-10 14:29 | NUR ---
MED REC COMPLETE
--- NOTE | 2023-06-10 15:43 | NUR ---
Called Dr. Klein regarding plan of care for patient's pain management. Dr. Klein reports he will see patient shortly and change medication to oral route.
--- NOTE | 2023-06-10 17:00 | NUR ---
Admin one tab percocet 5/325mg po and lidocaine 4% patch to lower back. Patient reports pain in back and stomach, /.
--- NOTE | 2023-06-10 18:54 | NUR ---
PT SLEEPING WHEN AUTOCUTTER ENTERED ROOM. PT HAD EATEN A LITTLE BIT BUT REFUSED TO EAT MORE. PT INFORMED AUTOCUTTER THAT SHE HAS BEEN USING THE RESTROOM W/O SOMEONE STANDING BY. PT STATES SHE IS STILL IN PAIN. RN AWARE OF PT CONCERNS. CALL LIGHT WITHIN REACH
--- NOTE | 2023-06-10 19:25 | NUR ---
SHIFT REPORT RECEIVED FROM MOISE RN, PT RESTING WITH EYES CLOSED.
--- NOTE | 2023-06-10 20:00 | NUR ---
RN TO ROOM, PT AWAKE, NOTED TO HAVE A BLOODY NOSE, HOB ELEVATED AND PT GIVEN DISPOSABLE WASH CLOTH AND ENCOURAGED TO HOLD PRESSURE TO NOSE, BLEEDING SUBSIDES AFTER A FEW MINUTES, NO FURTHER BLEEDING, IVF INFUSING WELL, PT RESTING, ASKING WHEN NEXT PAIN MED IS DUE, PT TOLD APPROXIMATELY 2044.
--- NOTE | 2023-06-10 21:00 | NUR ---
PT APPEARS TO SLEEP, LAYING ON RIGHT SIDE, RESP EVEN AND REG, PT NOT AWAKEN AT THIS TIME FOR PAIN MEDICATION.
--- NOTE | 2023-06-10 22:36 | NUR ---
PT ALSEEP, LAYING ON RIGHT SIDE, RESP EVEN AND REG, AWAKEN AND BECOMES ANXIOUS ASKING FOR PAIN MED, PT BREATHING RAPIDLY, AND PT MOVING ABOUT IN BED, VS DONE AND THEN PT MEDICATED WITH PEROCET 1 TAB PER ORDER WITH APPLE SAUCE, ACCUCHECK 170, SS INSULIN GIVEN PER ORDER ALSO LONG ACTING INSULIN, ENCOURAGE PT TO ATTEMPT TO SLOW HER BREATHING AND CALM, WARM BLANKETS GIVEN, PT STATES SHE NEEDS SOMETHING STRONGER FOR PAIN MED, DISCUSSED PLAN PER MD, DISCUSSED HER PAIN MED MAY TAKE ABOUT 30 MINUTES TO WORK. PT CONTINUES TO MOAN. SUPPORT GIVEN.
--- NOTE | 2023-06-10 23:30 | NUR ---
PT LAYING ON RIGHT SIDE, RESP EVEN AND REG, WITHOUT SIGN OF DISTRESS.
--- NOTE | 2023-06-10 23:45 | NUR ---
Patient called for assistance back to bed from the bathroom. Plugged her IV in and helped cover her up and call light is within reach. Nothing else is needed at this time.
--- NOTE | 2023-06-11 00:01 | NUR ---
DR PEACE UPDATED ON PT'S EARILIER REQUESTS FOR ADDITIONAL PAIN MED, STATES NO FURTHER MEDS WILL BE ORDERED AT THIS TIME, ONLY PERCOCET PREVIOUSLY ORDER, PT CONTS TO SLEEP AT THIS TIME.
--- NOTE | 2023-06-11 01:20 | NUR ---
PT ASLEEP, RESP EVEN AND REG.
--- NOTE | 2023-06-11 01:30 | NUR ---
RN CALLED TO ROOM, POINTED TO CLOCK AND SAID ITS TIME FOR PAIN MED, DISCUSSED LAST DOSE WAS AT 2236 AND IT WOULD BE AT APPROX 0230, PT WANTS HER MED AT THAT TIME, PT BACK TO SLEEP QUICKLY.
--- NOTE | 2023-06-11 02:35 | NUR ---
PT ASLEEP, AWAKEN PER EARILIER REQUEST, MEDICATED WITH 1 PERCOCET FOR PAIN 8/10 IN ABDOMEN, HOB ELEVATED TO TAKE MEDICATION IN APPLESAUCE, PT WITHOUT OTHER REQUESTS, BACK TO SLEEP WHEN LEFT UNDISTURBED.
[2023-06-11 05:30] VITALS: BP 136/85
--- NOTE | 2023-06-11 06:35 | NUR ---
PT AWAKE, MEDICATED WITH 1 PERCOCET PER REQUEST, FOR ABDOMEN PAIN 12/16, WARM BLANKET GIVEN. IV PATENT, NEW BAG OF NS HUNG AND INFUSING WELL, SITE INTACT.
--- NOTE | 2023-06-11 06:36 | NUR ---
PT AWAKE AND ALERT, MEDICATED FOR STOMACH PAIN 12/16 PER REQUEST WITH 1 PERCOCET, NEW BAG OF NS HUNG AND INFUSING WELL AT 125ML/HR, SITE INTACT.
--- NOTE | 2023-06-11 07:29 | NUR ---
Patient awake, alert and oriented x4, no acute distress. Patient reports the percocet is not working as good as the dilaudid she was getting. Education provided to patient regarding plan of care and current medication orders. Lab in room at this time. No current needs.
[2023-06-11 07:49] LABS: ALBUMIN 2.4 g/dL (3.4-5.0); ALBUMIN/GLOBULIN RATIO 0.51 (1.1-2.4); ANION GAP 14.1 (7-21); BILIRUBIN, TOTAL 0.2 ng/dL (0.2-1.0); BUN/CREATININE RATIO 8.16 (6.0-28.6); CALCIUM 8.8 mg/dL (8.5-10.1); CREATININE, SERUM 0.49 mg/dL (0.55-1.02); POTASSIUM 4.1 mmol/L (3.5-5.1); PROTEIN, TOTAL 7.1 g/dL (6.4-8.2)
--- NOTE | 2023-06-11 10:08 | NUR ---
Admin one tab percocet 5/325mg po for reports of 8/10 abdominal pain. Patient assisted to restroom at this time to void. Patient sipping on her mag citrate-she reports she doesn't like the taste but she will continue to try and drink. Call light within reach.
[2023-06-11 10:58] VITALS: BP 125/71
--- NOTE | 2023-06-11 12:03 | NUR ---
Patient requesting that I speak with Dr. Klein regarding her pain medication. Patient reports her pain is not controlled with percocet and lidocaine patch. Patient consumed one sip of her mag citrate and does not want to consume the rest. Patient denies feeling constipated. LBM two days ago per patient report. Touched base with Dr. Klein regarding plan of care. Dr. Klein reports he will go see patient shortly regarding plan of care and pain management.
--- NOTE | 2023-06-11 13:44 | NUR ---
Admin one tab of percocet 5/325mg po for reports of 9/10 abd pain.
[2023-06-11 14:54] VITALS: BP 106/55
[2023-06-11] MEDS ORDERED: OXYCODONE-ACET1 EAC1 PO (15:07)
--- NOTE | 2023-06-11 15:48 | NUR ---
Pharmacy education provided. RX script for percocet provided to patient.
== END 2023-06-11 16:02 | disposition home or self-care (01) ==
LOC: ED 12:46 → MS 12:48
PROVIDERS: Emergency Medicine; Internal Medicine; ADMIT Family Medicine; ATTEND Family Medicine
DX: R10.9 Unspecified abdominal pain (principal); E11.9 Type 2 diabetes mellitus without complications; R00.0 Tachycardia, unspecified; Z88.8 Allergy status to other drugs, medicaments and biological substances; Z88.6 Allergy status to analgesic agent; Z88.1 Allergy status to other antibiotic agents; Z79.84 Long term (current) use of oral hypoglycemic drugs; Z79.4 Long term (current) use of insulin
CPT/HCPCS: 36415; 71045; 74018; 74177; 80053; 81001; 82800; 83690; 83735; 84100; 84703; 85025; A9270; C9113; J0780; J1170; J1790; J1815; J2405; J3475; J7030; Q9967

== ENCOUNTER 2023-06-17 08:50 | Emergency (ER) | payer MEDICARE, OTHER ==
[~2023-06-17] VITALS: Ht 165.1 cm; Wt 76.0 kg
[~2023-06-17 08:50] MED LIST changes: +GEMFIBROZIL600 MG PO; +HYDROMORPHONE HC4 MG PO; +OXYCODONE-ACET1 EAC1 PO
[2023-06-17] MEDS ORDERED: ondansetron HCL 4 MG/2 ML VIAL IV ONE (10:00)
[2023-06-17] MEDS ORDERED: HYDROmorphone HCL 1 MG/ML SYR IV PRN (10:15)
[2023-06-17 10:22] LABS: BASOPHILS 0.3 % (0-2); EOSINOPHILS 0.4 % (0-6); HEMATOCRIT 38.3 % (35.0-50.0); HEMOGLOBIN 12.6 g/dL (12.0-18.0); LYMPHOCYTES 9.6 % (24-44); MCH 27.4 (27-36); MCHC 32.8 g/dl (30-36); MCV 83.4 fl (81-99); NEUTROPHILS 84.7 % (39-80); PLATELET COUNT 359 K/uL (140-440); RBC 4.59 M/ul (4.3-5.7); RDW 16.4 (10.5-15.0)
[2023-06-17] MEDS ORDERED: SODIUM CHLORIDE 0.9% 1,000 ML IV PRN ×3 (10:30→16:30)
[2023-06-17 10:43] LABS: ALBUMIN 3.5 g/dL (3.4-5.0); ALBUMIN/GLOBULIN RATIO 0.66 (1.1-2.4); ANION GAP 15.1 (7-21); BILIRUBIN, TOTAL 0.5 ng/dL (0.2-1.0); BUN/CREATININE RATIO 22.38 (6.0-28.6); CALCIUM 10.2 mg/dL (8.5-10.1); CREATININE, SERUM 0.67 mg/dL (0.55-1.02); POTASSIUM 4.1 mmol/L (3.5-5.1); PROTEIN, TOTAL 8.8 g/dL (6.4-8.2)
[2023-06-17] MEDS ORDERED: PROCHLORPERAZINE EDISYLATE 10 MG/2 ML VIAL IV ONE (11:15)
[2023-06-17 15:48] LABS: BILIRUBIN, URINE NEGATIVE (negative); BLOOD/HGB, URINE TRACE-L (Negative); KETONE, URINE TRACE (Negative); LEUK ESTERASE, URINE NEGATIVE (negative); NITRITE, URINE POSITIVE (negative)
[2023-06-17 15:54] LABS: RED BLOOD CELLS, URINE 0-1 /hpf (0-5)
[2023-06-17 15:55] LABS: BACTERIA, URINE 2+ /hpf (negative); CASTS, URINE NONE SEEN \\lpf; COLLECTION TYPE, URINE CLEAN CATCH; CRYSTALS, URINE NONE SEEN (0-1+); EPITHELIAL CELLS, URINE SQUAMOUS 4+ /lpf (0-1+); REFLEX CULTURE, URINE No (No)
[2023-06-17] MEDS ORDERED: OXYCODONE HCL5 MG PO (17:56)
== END 2023-06-17 18:15 | disposition home or self-care (01) ==
LOC: ED 08:50
DX: R10.13 Epigastric pain (principal); E10.9 Type 1 diabetes mellitus without complications; F17.200 Nicotine dependence, unspecified, uncomplicated; Z88.8 Allergy status to other drugs, medicaments and biological substances; Z88.6 Allergy status to analgesic agent; Z91.048 Other nonmedicinal substance allergy status; Z79.899 Other long term (current) drug therapy; Z79.4 Long term (current) use of insulin; Z79.84 Long term (current) use of oral hypoglycemic drugs
CPT/HCPCS: 36415; 74177; 80053; 81001; 83690; 84703; 85025; 96361; 96375; 96376; 99284-25; J0780; J1170; J2405; J7030; Q9967

== ENCOUNTER 2023-06-28 05:34 | Emergency (ER) | payer MEDICARE, OTHER ==
[~2023-06-28] VITALS: Ht 165.1 cm; Wt 83.0 kg
[~2023-06-28 05:34] MED LIST changes: +MAALOX ADVANCE1 EACH PO; +OXYCODONE HCL5 MG PO; +PROTONIX20 MG PO
[2023-06-28] MEDS ORDERED: ondansetron HCL 4 MG/2 ML VIAL IV ONE (06:00)
[2023-06-28 06:24] LABS: BASOPHILS 0.5 % (0-2); EOSINOPHILS 0.6 % (0-6); HEMATOCRIT 41.4 % (35.0-50.0); HEMOGLOBIN 13.7 g/dL (12.0-18.0); LYMPHOCYTES 14.4 % (24-44); MCH 27.7 (27-36); MCHC 33.1 g/dl (30-36); MCV 83.8 fl (81-99); MONOCYTES 5.3 % (0-12); NEUTROPHILS 79.2 % (39-80); RBC 4.94 M/ul (4.3-5.7); RDW 16.5 (10.5-15.0)
[2023-06-28] MEDS ORDERED: HYDROmorphone HCL 1 MG/ML SYR IM ONE (06:30)
[2023-06-28] MEDS ORDERED: HYDROmorphone HCL 1 MG/ML SYR IV PRN (06:30)
[2023-06-28 06:39] LABS: ALBUMIN 3.7 g/dL (3.4-5.0); ALBUMIN/GLOBULIN RATIO 0.77 (1.1-2.4); ANION GAP 21.7 (7-21); BILIRUBIN, TOTAL 0.8 ng/dL (0.2-1.0); BUN/CREATININE RATIO 16.07 (6.0-28.6); CALCIUM 9.9 mg/dL (8.5-10.1); CREATININE, SERUM 0.56 mg/dL (0.55-1.02); MAGNESIUM 1.3 mg/dL (1.8-2.4); POTASSIUM 4.7 mmol/L (3.5-5.1); PROTEIN, TOTAL 8.5 g/dL (6.4-8.2)
[2023-06-28 07:19] LABS: PLATELET COUNT 227 K/uL (140-440)
[2023-06-28] MEDS ORDERED: droPERidol 5 MG/2 ML VIAL IM ONE (07:30)
[2023-06-28] MEDS ORDERED: ONDANSETRON 4 MG TAB ODT SL ONE (07:30)
[2023-06-28] MEDS ORDERED: HYDROmorphone HCL 2 MG/ML VIAL IM ONE (08:00)
[2023-06-28] MEDS ORDERED: INSULIN GLARGINE-YFGN 100 UNIT/ML ML SUB-Q ONE (10:15)
[2023-06-28 10:58] VITALS: BP 115/80
[2023-07-01] MEDS ORDERED: HYDROCODON-ACE1 EA10 PO (13:41)
[2023-07-01] MEDS ORDERED: MACROBID 100 M100 MG PO (13:42)
== END 2023-06-28 10:58 | disposition home or self-care (01) ==
LOC: ED 05:34
PROVIDERS: Internal Medicine
DX: R10.13 Epigastric pain (principal); E10.65 Type 1 diabetes mellitus with hyperglycemia; F17.200 Nicotine dependence, unspecified, uncomplicated; Z88.6 Allergy status to analgesic agent; Z88.8 Allergy status to other drugs, medicaments and biological substances; Z91.048 Other nonmedicinal substance allergy status; Z79.899 Other long term (current) drug therapy; Z79.4 Long term (current) use of insulin
CPT/HCPCS: 36415; 80053; 83690; 83735; 84703; 85025; 85060; 96372; 99284; A9270; J1170; J1790

== ENCOUNTER 2023-06-30 15:04 | Emergency (ER) | payer MEDICARE, OTHER ==
[~2023-06-30] VITALS: Ht 165.1 cm; Wt 73.8 kg
[2023-06-30 15:39] LABS: BASOPHILS 1.4 % (0-2); EOSINOPHILS 1.7 % (0-6); HEMATOCRIT 38.5 % (35.0-50.0); HEMOGLOBIN 12.7 g/dL (12.0-18.0); MCH 27.6 (27-36); MCHC 33.1 g/dl (30-36); MCV 83.6 fl (81-99); MONOCYTES 5.5 % (0-12); NEUTROPHILS 62.4 % (39-80); PLATELET COUNT 260 K/uL (140-440); RBC 4.61 M/ul (4.3-5.7); RDW 16.8 (10.5-15.0)
[2023-06-30] MEDS ORDERED: ONDANSETRON 4 MG TAB ODT SL ONE (15:45)
[2023-06-30] MEDS ORDERED: MORPHINE SULFATE 10 MG/ML VIAL IM ONE ×2 (15:45→16:30)
[2023-06-30 15:55] LABS: ALBUMIN 3.6 g/dL (3.4-5.0); ALBUMIN/GLOBULIN RATIO 0.86 (1.1-2.4); ANION GAP 16.8 (7-21); BILIRUBIN, TOTAL 0.5 ng/dL (0.2-1.0); BUN/CREATININE RATIO 10.93 (6.0-28.6); CALCIUM 9.8 mg/dL (8.5-10.1); CREATININE, SERUM 0.64 mg/dL (0.55-1.02); POTASSIUM 3.8 mmol/L (3.5-5.1); PROTEIN, TOTAL 7.8 g/dL (6.4-8.2)
[2023-06-30] MEDS ORDERED: CARAFATE1 GM PO (16:41)
[2023-06-30] MEDS ORDERED: PROTONIX40 MG PO (16:41)
[2023-06-30 16:44] LABS: BILIRUBIN, URINE NEGATIVE (negative); BLOOD/HGB, URINE NEGATIVE (Negative); KETONE, URINE >=80 (Negative); LEUK ESTERASE, URINE NEGATIVE (negative); NITRITE, URINE NEGATIVE (negative)
[2023-06-30 16:51] VITALS: BP 134/99
[2023-06-30 17:00] LABS: AMPHETAMINES, URINE NEGATIVE (NEGATIVE); BARBITURATES, URINE NEGATIVE (NEGATIVE); BENZODIAZEPINE, URINE NEGATIVE (NEGATIVE); BUPRENORPHINE, URINE NEGATIVE (NEGATIVE); CANNABINOID, URINE NEGATIVE (NEGATIVE); COCAINE, URINE NEGATIVE (NEGATIVE); ECSTASY, URINE NEGATIVE (NEGATIVE); FENTANYL, URINE NEGATIVE (NEGATIVE); METHADONE, URINE NEGATIVE (NEGATIVE); OPIATES, URINE POSITIVE (NEGATIVE); OXYCODONE, URINE NEGATIVE (NEGATIVE); PHENCYCLIDINE, URINE NEGATIVE (NEGATIVE)
[2023-07-01] MEDS ORDERED: HYDROCODON-ACE1 EA10 PO (13:41)
[2023-07-01] MEDS ORDERED: MACROBID 100 M100 MG PO (13:42)
== END 2023-06-30 16:53 | disposition home or self-care (01) ==
LOC: ED 15:04
PROVIDERS: Family Medicine
DX: R10.13 Epigastric pain (principal); E10.9 Type 1 diabetes mellitus without complications; F17.200 Nicotine dependence, unspecified, uncomplicated; Z88.8 Allergy status to other drugs, medicaments and biological substances; Z91.048 Other nonmedicinal substance allergy status; Z88.6 Allergy status to analgesic agent; Z79.899 Other long term (current) drug therapy; Z79.4 Long term (current) use of insulin
CPT/HCPCS: 36415; 80053; 80307; 81003; 83690; 85025; 96372; 99284; A9270; J2270

== ENCOUNTER 2023-10-31 10:43 | Observation (INO) | payer MEDICARE, OTHER ==
[~2023-10-31] VITALS: Ht 165.1 cm; Wt 69.0 kg
[~2023-10-31 10:43] MED LIST changes: +CARAFATE1 GM PO; +MAG DELAY64 M1 PO; +NITROFURANTOIN100 M1 PO; +POTASSIUM CHLO20 ME1 PO; +PROTONIX40 MG PO
[2023-10-31] MEDS ORDERED: VISTARIL25 MG PO (11:05)
[2023-10-31] MEDS ORDERED: HYDROmorphone HCL 1 MG/ML SYR IV PRN ×2 (11:30→17:00)
[2023-10-31] MEDS ORDERED: ondansetron HCL 4 MG/2 ML VIAL IV ONE (11:30)
[2023-10-31] MEDS ORDERED: SODIUM CHLORIDE 0.9% 1,000 ML IV ONE ×2 (11:30→14:15)
[2023-10-31 11:34] LABS: BILIRUBIN, URINE NEGATIVE (negative); BLOOD/HGB, URINE NEGATIVE (Negative); KETONE, URINE NEGATIVE (Negative); LEUK ESTERASE, URINE NEGATIVE (negative); NITRITE, URINE NEGATIVE (negative); PH, URINE 6.5 (5-7)
[2023-10-31 12:17] LABS: BASOPHILS 1.6 % (0-2); EOSINOPHILS 0.6 % (0-6); HEMATOCRIT 39.7 % (35.0-50.0); HEMOGLOBIN 13.9 g/dL (12.0-18.0); MCHC 34.9 g/dl (30-36); MCV 80.4 fl (81-99); MONOCYTES 6.2 % (0-12); NEUTROPHILS 75.6 % (39-80); PLATELET COUNT 244 K/uL (140-440); RBC 4.94 M/ul (4.3-5.7); RDW 15.3 (10.5-15.0)
[2023-10-31 13:34] LABS: ALBUMIN 3.6 g/dL (3.4-5.0); ALBUMIN/GLOBULIN RATIO 0.92 (1.1-2.4); ALKALINE PHOSPHATASE 84 U/L (46-116); ANION GAP 18.9 (7-21); BILIRUBIN, TOTAL 0.5 ng/dL (0.2-1.0); BUN/CREATININE RATIO 22.41 (6.0-28.6); CALCIUM 8.3 mg/dL (8.5-10.1); CARBON DIOXIDE 20 mmol/L (21-32); CHLORIDE 94 mmol/L (98-107); CREATININE, SERUM 0.58 mg/dL (0.55-1.02); GLOMERULAR FILTRATION RATE,EST 122 mL/min (>60); POTASSIUM 3.9 mmol/L (3.5-5.1); PROTEIN, TOTAL 7.5 g/dL (6.4-8.2); UREA NITROGEN 13 mg/dL (7-18)
[2023-10-31 14:02] LABS: ALT (SGPT) 28 U/L (14-59)
[2023-10-31] MEDS ORDERED: PANTOPRAZOLE SODIUM 40 MG/10 ML VIAL IV SCH (14:10)
[2023-10-31] MEDS ORDERED: INSULIN LISPRO 100 UNIT/ML ML IV ONE ×3 (14:15→21:15)
[2023-10-31] MEDS ORDERED: SODIUM CHLORIDE 0.9% 1,000 ML IV SCH (14:15)
[2023-10-31] MEDS ORDERED: ondansetron HCL 4 MG/2 ML VIAL IV PRN (14:15)
[2023-10-31] MEDS ORDERED: PROCHLORPERAZINE EDISYLATE 10 MG/2 ML VIAL IV PRN (14:15)
[2023-10-31] MEDS ORDERED: MAGNESIUM HYDROXIDE 30 ML UDC PO PRN (14:15)
[2023-10-31] MEDS ORDERED: ACETAMINOPHEN 500 MG TAB PO PRN (14:15)
[2023-10-31 14:38] VITALS: BP 130/90
[2023-10-31 14:47] LABS: AMPHETAMINES, URINE NEGATIVE (NEGATIVE); BARBITURATES, URINE NEGATIVE (NEGATIVE); BENZODIAZEPINE, URINE NEGATIVE (NEGATIVE); BUPRENORPHINE, URINE NEGATIVE (NEGATIVE); CANNABINOID, URINE NEGATIVE (NEGATIVE); COCAINE, URINE NEGATIVE (NEGATIVE); ECSTASY, URINE NEGATIVE (NEGATIVE); FENTANYL, URINE NEGATIVE (NEGATIVE); METHADONE, URINE NEGATIVE (NEGATIVE); OPIATES, URINE NEGATIVE (NEGATIVE); OXYCODONE, URINE NEGATIVE (NEGATIVE); PHENCYCLIDINE, URINE NEGATIVE (NEGATIVE)
--- NOTE | 2023-10-31 15:00 | NUR ---
PT ARRIVES TO MED-SURG VIA GURNEY ESCROTED BY CHAPIS SIMMS. PT IS AWAKE AND ALERT. PT AMBULATES FROM GURNEY TO BED WITH STEADY GAIT. VS OBTAINED. BEDSIDE REPORT RECEIVED FROM CHAPIS SIMMS. NS 1L BOLUS STARTED. PT ORIENTED TO ROOM AND CALL LIGHT. CALL LIGHT IN REACH. PT ENCOURAGED TO CALL FOR ANY NEEDS.
--- NOTE | 2023-10-31 15:15 | NUR ---
PT RECEIVED COMPAZINE FOR ONE EPISODE OF EMESIS, SEE EMAR.
[2023-10-31 15:19] LABS: AST (SGOT) 45 U/L (15-37)
[2023-10-31] MEDS ORDERED: hydrOXYzine pamoate 50 MG CAP PO ONE (15:45)
--- NOTE | 2023-10-31 15:58 | NUR ---
PT AMBULATES TO BATHROOM WITH SBA FOR LINE MANAGEMENT. PT VOIDS 500 MLS OF CLEAR, YELLOW URINE.
--- NOTE | 2023-10-31 16:06 | NUR ---
NS BOLUS COMPLETE. PT TOLERATES THIS WELL. CONTINUOUS NS INFUSION STARTED, SEE EMAR.
--- NOTE | 2023-10-31 16:12 | NUR ---
LAB SAMPLE OBTAINED FROM IV IN LEFT UPPER ARM. 6 ML OF WASTE DRAWN FOLLOWED BY 4 ML BLOOD SAMPLE. IV FLUSHED WITH 10 MLS NS, CLAVE REPLACED AND IV FLUSHED WITH ANOTHER 10 MLS OF NS. NS CONTINUOUS INFUSION RESTARTED.
[2023-10-31 16:23] LABS: ANION GAP 16.2 (7-21); BUN/CREATININE RATIO 19.14 (6.0-28.6); CALCIUM 6.9 mg/dL (8.5-10.1); CREATININE, SERUM 0.47 mg/dL (0.55-1.02); POTASSIUM 3.2 mmol/L (3.5-5.1)
--- NOTE | 2023-10-31 16:35 | NUR ---
DR. CRISTINA NOTIFIED OF PT'S BLOOD SUGAR RESULTS AND THAT THERE IS NO INSULIN IN THE EMAR.
[2023-10-31] MEDS ORDERED: INHALER, ASSIST DEVICES 1 EACH SPACER MISC ONE (16:45)
[2023-10-31] MEDS ORDERED: HYDROXYZINE PA100 MG PO (16:57)
[2023-10-31] MEDS ORDERED: LEVOTHYROXINE100 MCG PO (16:58)
[2023-10-31] MEDS ORDERED: QUETIAPINE FUM400 MG PO (16:58)
[2023-10-31] MEDS ORDERED: FENOFIBRATE,MICRONIZED 145 MG TAB PO SCH (17:00)
[2023-10-31] MEDS ORDERED: POTASSIUM CHLORIDE 10 MEQ TABCR PO ONE (17:00)
[2023-10-31] MEDS ORDERED: hydrOXYzine pamoate 50 MG CAP PO PRN (17:00)
[2023-10-31] MEDS ORDERED: IBLOOD GLUCOSE TEST STRIP 1 EA TEST XX PRN (17:00)
[2023-10-31] MEDS ORDERED: DEXTROSE 5% 1,000 ML IV PRN (17:00)
[2023-10-31] MEDS ORDERED: IBLOOD GLUCOSE TEST STRIP 1 EA TEST XX SCH (17:00)
[2023-10-31] MEDS ORDERED: IBLOOD GLUCOSE TEST STRIP 1 EA TEST VI SCH ×2 (17:00→20:00)
[2023-10-31] MEDS ORDERED: GLUCAGON,HUMAN RECOMBINANT 1 MG/ML VIAL SUB-Q PRN (17:00)
[2023-10-31] MEDS ORDERED: INSULIN LISPRO 100 UNIT/ML ML SUB-Q SCH ×2 (17:00→21:00)
[2023-10-31] MEDS ORDERED: DEXTROSE 50% 50 ML SYR IV PRN ×2 (17:00)
[2023-10-31] MEDS ORDERED: CETIRIZINE HCL 10 MG TAB PO SCH (17:00)
[2023-10-31] MEDS ORDERED: CYCLOBENZAPRINE HCL 10 MG TAB PO PRN (17:00)
[2023-10-31] MEDS ORDERED: CREON DR 24,001 EACH PO (17:06)
[2023-10-31] MEDS ORDERED: HUMALOG100 UNIT/2 SUB-Q (17:08)
[2023-10-31] MEDS ORDERED: TOUJEO SOL300 UNIT/1 SUB-Q (17:08)
[2023-10-31] MEDS ORDERED: PULMICORT FLEX90 MCG INH (17:15)
--- NOTE | 2023-10-31 17:32 | NUR ---
PT ASSESSMENT COMPLETE. PT SITTING UP IN BED DRINKING ENSURE, CALL LIGHT WITHIN REACH. PT STATES PAIN IS TOLERABLE AT THIS TIME.
--- NOTE | 2023-10-31 17:51 | NUR ---
PT SITTING UP IN BED TALKING ON THE PHONE, JUST FINISHED DINNER. PT TOLERATED WELL. CALL LIGHT WITHIN REACH. PT STATES SHE IS IN PT FOR HER R) SHOULDER AND SPEECH THERAPY FOR HER "SWALLOWING ISSUES" AND THAT SHE NORMALLY EATES SOFT FOODS AT HOME.
[2023-10-31 18:12] VITALS: BP 121/81
--- NOTE | 2023-10-31 18:29 | NUR ---
Patient appeared to be in a good mood, no report of pain. Call light has been placed within reach. No request from patient at this time
[2023-10-31] MEDS ORDERED: BUSPIRONE HCL15 MG PO (18:32)
[2023-10-31] MEDS ORDERED: POTASSIUM GLUCO99 MG PO (18:33)
[2023-10-31] MEDS ORDERED: WOMEN'S DAILY1 EACH PO (18:34)
--- NOTE | 2023-10-31 18:34 | NUR ---
MED REC COMPLETE
--- NOTE | 2023-10-31 18:40 | NUR ---
PT UP AMBULATING IN HALLS, TOLERATING WELL.
--- NOTE | 2023-10-31 19:20 | NUR ---
SHIFT REPORT RECEIVED FROM JAYA NATION AND RAINER NATION, PT UP AMBULATING IN THE HALLS, GAIT STEADY, PUSHING IV POLE, ALERT AND ORIENTENED WITHOUT REQUESTS.
--- NOTE | 2023-10-31 19:40 | NUR ---
PT INQUIRING WHEN PAIN MED WAS DUE, INSTRUCTED THAT NEXT DOSE WOULD BE AVAILABLE APPROX 2014, PT STATES SHE WILL CONTINUE WALKING UNTIL MEDICATION IS DUE.
[2023-10-31 20:20] VITALS: BP 116/74
--- NOTE | 2023-10-31 20:40 | NUR ---
TC TO DR CRISTINA, REPORT GIVEN OF ACCUCHECK OF >600, REPORTED TO THAT PT WAS GIVEN AND DRANK 2 ENSURE CLEAR (56 G CARBS EACH) BY ACCIDENT BY RN, ORDERS RECEIVED TO DRAW STAT BMP, THEN GIVE ADMELOG 10UNITS IV, RECHECK ACCUCHECK IN 1 HOUR AFTER IV INSULIN GIVEN, GIVE SS BASED ON ACCHECK IN ADDITION TO SCHEDULED ADMELOG OF 25 UNITS. MD STATES TO GIVE GLARGINE ORDERED AT THE TIME AFTER 10 UNITS IV GIVEN, STATES PT MAY HAVE 60G CARB DIET, ADVANCE TOLERATED. DISCUSSED PLAN OF CARE WITH PT AND NEED TO MAINTANE 60G CARB DIET, PT VOICES UNDERSTANDING.
--- NOTE | 2023-10-31 20:50 | NUR ---
BMP DRAWN FROM IV SITE AFTER 5 ML WASTE, FOR STAT DRAW.
--- NOTE | 2023-10-31 20:50 | NUR ---
RESULTS OF BMP REVIEWED, NOTED CONFIRMATION BLOOD GLUCOSE IS 638.
[2023-10-31] MEDS ORDERED: INSULIN GLARGINE-YFGN 100 UNIT/ML ML SUB-Q SCH (21:00)
[2023-10-31] MEDS ORDERED: MELATONIN 3 MG TAB PO PRN (21:00)
[2023-10-31] MEDS ORDERED: busPIRone HCL 15 MG TAB PO SCH (21:00)
[2023-10-31] MEDS ORDERED: INSULIN LISPRO 100 UNIT/ML ML ONE (21:07)
[2023-10-31 21:08] LABS: ANION GAP 16.8 (7-21); BUN/CREATININE RATIO 16.66 (6.0-28.6); CALCIUM 6.6 mg/dL (8.5-10.1); CREATININE, SERUM 0.66 mg/dL (0.55-1.02); POTASSIUM 3.8 mmol/L (3.5-5.1)
--- NOTE | 2023-10-31 21:10 | NUR ---
PT MEDICATED WITH ADMELOG 10UNITS IV PER ORDER OF DR CRISTINA
[2023-10-31] MEDS ORDERED: ALBUTEROL SULFATE 0.083% 3 ML VIAL INH PRN (22:00)
--- NOTE | 2023-10-31 22:10 | NUR ---
REPEAT ACCUCHECK DONE, NOW 345, SS OF 9UNITS ADMELOG AND SCHEDULED 25 UNITS OF ADMELOG (TOTAL OF 34 UNITS GIVEN PER EARILIER ORDER OF DR CRISTINA, ASSESSMENT COMPLETED.
--- NOTE | 2023-10-31 23:15 | NUR ---
PT C/O NAUSEA, REQUESTING MEDICATION, MEDICATED WITH ZOFRAN 4MG IV.
--- NOTE | 2023-10-31 23:16 | NUR ---
PT COMPLAINED NAUSEA; HAS JUST FINISHED 2 CHO SF PUDDING; SUGGESTED TO REST WITH NO MORE EATING; SHE AGREED; DID STATE SHE THINKS IT IS HER ACID REFLUX SHE TAKES MEDICATIONS AT HOME FOR THIS.
--- NOTE | 2023-11-01 00:27 | NUR ---
PT REQUESTING PAIN MED FOR ABDOMINAL PAIN 11/15, MEDICATED WITH DILAUDID 0.5MG PER ORDER IV PATENT.
--- NOTE | 2023-11-01 00:40 | NUR ---
PT UP AMBULATING IN THE SEN, GAIT STEADY, PUSHING IV POLE, PT HAD 100ML BROWNISH EMESIS PRIOR TO AMBULATING IN THE SEN, ENCOURAGED TO SLOW PO INTAKE UNTIL FEELING BETTER.
[2023-11-01] MEDS ORDERED: MAGNESIUM HYDROXIDE/AL HYDROX 30 ML CUP PO PRN (00:45)
--- NOTE | 2023-11-01 01:50 | NUR ---
PT APPEARS TO SLEEP, LEFT UNDISTURBED, RESP EVEN AND REG.
[2023-11-01 03:04] VITALS: BP 115/88
--- NOTE | 2023-11-01 03:17 | NUR ---
PT HAD 250ML OF BROWNISH EMESIS, REQUESTING NAUSEA MEDICATION, MEDICATED WITH COMPAZINE 10MG SLOW IV PUSH, IV SITE PATENT, SKIN WARM AND DRY.
--- NOTE | 2023-11-01 03:28 | NUR ---
PT QUESTIONED IF SHE GET NAUSEATED WITH LOW BLOOD SUGAR AND SHE STATES SHE DOESN'T KNOW BECAUSE HER BLOOD SUGAR IS NEVER LOW, ACCUCHECK DONE AND IS 97, COMPAZINE DOSE COMPLETED, PT GIVEN A GLUCERNA PROTEIN DRINK, PT TOOK HALF, LAYING DOWN TO REST, IVF PATENT AND INFUSING WELL.
[2023-11-01 04:06] VITALS: BP 115/88
--- NOTE | 2023-11-01 04:21 | NUR ---
PT ASLEEP, LAYING ON RIGHT SIDE, RESP EVEN AND REG, IVF INFUSING WELL.
[2023-11-01 05:08] VITALS: BP 92/59
--- NOTE | 2023-11-01 05:13 | NUR ---
PT REQUESTING PAIN MED FOR PAIN 8/10 IN ABDOMEN, VS DONE, BP 92/59 (66), PT INSTRUCTED TO CALL NURSE IF SHE WANTS TO GET UP TO AMBULATE DUE TO LOWER BP, PT MEDICATED WITH DILAUDID 0.5MG IV, IV SITE PATENT, IVF INFUSING WELL PER ORDER.
[2023-11-01 05:15] VITALS: BP 92/59
--- NOTE | 2023-11-01 05:48 | NUR ---
LAB IN FOR AM BLOOD DRAW PER PERIPHERAL STICK, PT ASSISTED UP TO BR, VOIDED 300ML YELLOW URINE, BACK TO BED, SOME NAUSEA REPORTED, PT DROWSY, WILL MEDICATE IF NAUSEA CONTINUES.
[2023-11-01 05:49] LABS: BASOPHILS 0.7 % (0-2); EOSINOPHILS 0.8 % (0-6); HEMATOCRIT 35.8 % (35.0-50.0); HEMOGLOBIN 11.7 g/dL (12.0-18.0); LYMPHOCYTES 19.1 % (24-44); MCH 26.8 (27-36); MCHC 32.7 g/dl (30-36); MCV 81.9 fl (81-99); MONOCYTES 12.2 % (0-12); NEUTROPHILS 67.2 % (39-80); PLATELET COUNT 189 K/uL (140-440); RBC 4.37 M/ul (4.3-5.7); RDW 15.6 (10.5-15.0)
[2023-11-01 05:58] LABS: ANION GAP 13.8 (7-21); BUN/CREATININE RATIO 17.5 (6.0-28.6); CALCIUM 7.4 mg/dL (8.5-10.1); CREATININE, SERUM 0.4 mg/dL (0.55-1.02); POTASSIUM 3.8 mmol/L (3.5-5.1)
--- NOTE | 2023-11-01 07:05 | NUR ---
REPORT RECEIVED FROM CUSTOMER RELATIONSHIP SPECIALIST RN MONICA. PATIENT IS LYING IN BED WITH EYES CLOSED AND RESPIRATIONS ARE EVEN AND UNLBAORED. CALL LIGHT AND PERSONAL BELONGINGS ARE WITHIN REACH.
--- NOTE | 2023-11-01 08:19 | NUR ---
UR CLINICAL REVIEW: 2 MN FOR [facility]- [facility] CRITERIA FOR INPT STAY MEDICARE INPT 10/31/23 @1401 ORDER MATCHED REG NO AUTH NEEDED PER MEDICARE GUIDELINE. DISCHARGE HOME WHEN STABLE
--- NOTE | 2023-11-01 08:35 | NUR ---
0800 AND 0900 MEDICATIONS ADMINISTERED PER THE EMAR. PATIENT REFUSED THE ENOXAPARIN SHE EXPLAINED SHE IS UP AND WALKING AND DOES NOT WANT IT. PATIENT IS ALERT AND ORIENTED TIMES FOUR. LUNG SOUNDS ARE CLEAR IN ALL LUNG OSORIO BILATERALLY. PATIENT IS ON ROOM AIR AND RESPIRATIONS ARE EVEN AND UNLABORED. CARDIAC WITH NORMAL S1 AND S2 ON AUSCULTATION. RADIAL PULSES ARE STRONG BILATERALLY. SENSATION INTACT WITH NUMBNESS AND TINGLING IN THE BILATERAL LOWER EXTREMITIES AT BASELINE. BOWEL TONES ARE ACTIVE IN ALL FOUR QUADRANTS. PATIENT WITH 3/10 PAIN IN THE ABDOMEN BUT THE PATIENT IS NOT REQUESTING ANY PAIN MEDICATION AT THIS TIME. PATIENT WITH NO COMPLAINTS OF NAUSEA OR VOMITING. IV DRESSING IS CLEAN, DRY, AND INTACT. IV FLUSHED WITH 10 ML NORMAL SALINE. PATIENT WITH SCARS NOTED ON THE ABDOMEN AND THROAT FROM A PREVIOUS TRACHEOSTOMY. SCABS NOTED SCATTERED THROUGH THE BODY. RED BUMP ON THE PATIENT HEAD OBSERVED BUT IS NOT OPEN. PATIENT HAS BEEN UP AND WALKING THE HALLS THROUGHOUT THE MORNING. PATIENT STATED NO FURTHER NEEDS AT THIS TIME. CALL LIGHT AND PERSONAL BELONGINGS ARE WITHIN REACH.
[2023-11-01] MEDS ORDERED: ENOXAPARIN SODIUM 40 MG/0.4 ML SYR SUB-Q SCH (09:00)
[2023-11-01] MEDS ORDERED: BENZTROPINE MESYLATE 1 MG TAB PO SCH (09:00)
[2023-11-01 09:33] LABS: CHOLESTEROL 268 mg/dL (<200); CHOLESTEROL/HDL RATIO 8.6; HDL CHOLESTEROL 31 (40-60); TRIGLYCERIDES 844 ng/dL (<150)
[2023-11-01 09:40] VITALS: BP 91/54
[2023-11-01] MEDS ORDERED: FENOFIBRATE145 MG PO (09:41)
--- NOTE | 2023-11-01 09:56 | NUR ---
PATIENT IS LYING IN BED ON THEIR RIGHT SIDE AND WATCHING TV. RESPIRATIONS ARE EVEN AND UNLABORED AND THE PATIENT IS ON ROOM AIR. PATIENT STATED NO NEEDS AT THIS TIME, CALL LIGHT AND PERSONAL BELONGINGS ARE WITHIN REACH.
[2023-11-01 10:08] VITALS: BP 91/54
--- NOTE | 2023-11-01 10:20 | NUR ---
Spoke with Kamilla. She states she cont. to live with Artie. She denies any needs to go home. She states she is feeling much better. Pt states her son is now in foster care. She shows pictures of her 2 yo and states she is working on a parenting plan. She has food stamps. Denies financia issues. Plans on dc to home today.
[2023-11-01] MEDS ORDERED: PHARMACY RENAL DOSE ADJUSTMENT 1 DOSE MISC PO SCH (12:00)
== END 2023-11-01 10:37 | disposition home or self-care (01) ==
LOC: ED 10:43 → MS 10:45 → ED 14:01 → MS 14:01
PROVIDERS: Emergency Medicine; ADMIT Family Medicine; ATTEND Family Medicine
DX: K85.90 Acute pancreatitis without necrosis or infection, unspecified (principal); E10.65 Type 1 diabetes mellitus with hyperglycemia; E78.1 Pure hyperglyceridemia; T46.6X6A Underdosing of antihyperlipidemic and antiarteriosclerotic drugs, initial encounter; L29.9 Pruritus, unspecified; F17.200 Nicotine dependence, unspecified, uncomplicated; F39 Unspecified mood [affective] disorder; Z88.8 Allergy status to other drugs, medicaments and biological substances; Z79.4 Long term (current) use of insulin; Z91.138 Patient's unintentional underdosing of medication regimen for other reason; Z88.6 Allergy status to analgesic agent
CPT/HCPCS: 36415; 80048; 80053; 80061; 80307; 81003; 82010; 82800; 83690; 83735; 84703; 85025; A9270; C9113; J0780; J1170; J1815; J2405; J7030

== ENCOUNTER 2023-11-09 19:19 | Emergency (ER) | payer MEDICARE, OTHER ==
[~2023-11-09] VITALS: Ht 165.1 cm; Wt 68.2 kg
[~2023-11-09 19:19] MED LIST changes: +FENOFIBRATE145 MG PO; +LEVOTHYROXINE100 MCG PO; +POTASSIUM GLUCO99 MG PO; +QUETIAPINE FUM400 MG PO; +TOUJEO SOL300 UNIT/1 SUB-Q; +VISTARIL25 MG PO; +WOMEN'S DAILY1 EACH PO
[2023-11-09] MEDS ORDERED: OXYCODONE HCL5 MG PO (19:33)
[2023-11-09] MEDS ORDERED: HYDROmorphone HCL 1 MG/ML SYR IV ONE ×2 (19:45→21:00)
[2023-11-09] MEDS ORDERED: ondansetron HCL 4 MG/2 ML VIAL IV ONE (19:45)
[2023-11-09] MEDS ORDERED: SODIUM CHLORIDE 0.9% 1,000 ML IV ONE (19:45)
[2023-11-09 19:48] LABS: BASOPHILS 0.4 % (0-2); EOSINOPHILS 0.6 % (0-6); HEMATOCRIT 43.7 % (35.0-50.0); HEMOGLOBIN 14.5 g/dL (12.0-18.0); LYMPHOCYTES 18.5 % (24-44); MCH 27.2 (27-36); MCHC 33.1 g/dl (30-36); MCV 82.3 fl (81-99); MONOCYTES 6.9 % (0-12); NEUTROPHILS 73.6 % (39-80); PH, VENOUS 7.401 (7.31-7.41); PLATELET COUNT 217 K/uL (140-440); RBC 5.31 M/ul (4.3-5.7); RDW 15.6 (10.5-15.0)
[2023-11-09 20:09] LABS: ALBUMIN/GLOBULIN RATIO 1.03 (1.1-2.4); ANION GAP 14.7 (7-21); BILIRUBIN, TOTAL 0.9 ng/dL (0.2-1.0); BUN/CREATININE RATIO 12.94 (6.0-28.6); CALCIUM 9.3 mg/dL (8.5-10.1); CREATININE, SERUM 0.85 mg/dL (0.55-1.02); POTASSIUM 3.7 mmol/L (3.5-5.1); PROTEIN, TOTAL 7.9 g/dL (6.4-8.2)
[2023-11-09] MEDS ORDERED: droPERidol 5 MG/2 ML VIAL IV PRN (21:00)
[2023-11-09] MEDS ORDERED: INSULIN LISPRO 100 UNIT/ML ML SUB-Q ONE (21:00)
[2023-11-09] MEDS ORDERED: OXYCODONE/ACETAMINOPHEN 1 TAB HOME.PACK PO ONE (21:15)
[2023-11-09 21:32] VITALS: BP 100/74
== END 2023-11-09 21:30 | disposition home or self-care (01) ==
LOC: ED 19:19
PROVIDERS: Family Medicine
DX: E10.65 Type 1 diabetes mellitus with hyperglycemia (principal); R10.13 Epigastric pain; E78.5 Hyperlipidemia, unspecified; E10.10 Type 1 diabetes mellitus with ketoacidosis without coma; F17.200 Nicotine dependence, unspecified, uncomplicated; Z79.51 Long term (current) use of inhaled steroids; Z79.84 Long term (current) use of oral hypoglycemic drugs; Z79.4 Long term (current) use of insulin; Z79.899 Other long term (current) drug therapy; Z88.6 Allergy status to analgesic agent; Z88.1 Allergy status to other antibiotic agents; Z91.048 Other nonmedicinal substance allergy status; Z88.8 Allergy status to other drugs, medicaments and biological substances
CPT/HCPCS: 36415; 80053; 82803; 83690; 85025; 96374; 96375; 96376; 99284-25; J1170; J1790; J1815; J2405; J7030

== ENCOUNTER 2023-12-20 17:32 | Emergency (ER) | payer MEDICARE, OTHER ==
[~2023-12-20] VITALS: Ht 165.1 cm; Wt 67.4 kg
[2023-12-20 18:38] LABS: BASOPHILS 0.6 % (0-2); EOSINOPHILS 0.5 % (0-6); HEMATOCRIT 47.2 % (35.0-50.0); HEMOGLOBIN 16.2 g/dL (12.0-18.0); LYMPHOCYTES 19.3 % (24-44); MCH 28.3 (27-36); MCHC 34.3 g/dl (30-36); MCV 82.5 fl (81-99); MONOCYTES 6.7 % (0-12); NEUTROPHILS 72.9 % (39-80); PLATELET COUNT 205 K/uL (140-440); RBC 5.72 M/ul (4.3-5.7); RDW 15.3 (10.5-15.0)
[2023-12-20 19:02] LABS: PARTIAL THROMBOPLASTIN TIME 25.8 Sec (22.9-41.3)
[2023-12-20 19:03] LABS: INR 0.95 (0.80-1.30)
[2023-12-20 19:07] LABS: ALBUMIN 3.9 g/dL (3.4-5.0); ALBUMIN/GLOBULIN RATIO 1.03 (1.1-2.4); BILIRUBIN, TOTAL 0.6 ng/dL (0.2-1.0); BUN/CREATININE RATIO 23.52 (6.0-28.6); CALCIUM 9.7 mg/dL (8.5-10.1); CREATININE, SERUM 0.85 mg/dL (0.55-1.02); PROTEIN, TOTAL 7.7 g/dL (6.4-8.2)
[2023-12-20] MEDS ORDERED: droPERidol 5 MG/2 ML VIAL IV ONE (19:15)
[2023-12-20 19:19] LABS: BILIRUBIN, URINE NEGATIVE (negative); BLOOD/HGB, URINE NEGATIVE (Negative); KETONE, URINE NEGATIVE (Negative); LEUK ESTERASE, URINE NEGATIVE (negative); NITRITE, URINE NEGATIVE (negative); PH, URINE 5.5 (5-7)
[2023-12-20 19:24] LABS: ABO A; ANTIBODY SCREEN NEGATIVE; RH POSITIVE
[2023-12-20 19:27] LABS: PH, VENOUS 7.389 (7.31-7.41)
[2023-12-20 19:34] LABS: AMPHETAMINES, URINE NEGATIVE (NEGATIVE); BARBITURATES, URINE NEGATIVE (NEGATIVE); BENZODIAZEPINE, URINE NEGATIVE (NEGATIVE); BUPRENORPHINE, URINE NEGATIVE (NEGATIVE); CANNABINOID, URINE NEGATIVE (NEGATIVE); COCAINE, URINE NEGATIVE (NEGATIVE); ECSTASY, URINE NEGATIVE (NEGATIVE); FENTANYL, URINE NEGATIVE (NEGATIVE); METHADONE, URINE NEGATIVE (NEGATIVE); OPIATES, URINE NEGATIVE (NEGATIVE); OXYCODONE, URINE NEGATIVE (NEGATIVE); PHENCYCLIDINE, URINE NEGATIVE (NEGATIVE)
[2023-12-20] MEDS ORDERED: Insulin Regular, Human 100 UNIT/ML ML IV ONE (19:45)
[2023-12-20] MEDS ORDERED: LIDOCAINE & ANTACID 35 ML BTL PO ONE (20:00)
[2023-12-20 20:33] VITALS: BP 121/96
== END 2023-12-20 20:30 | disposition home or self-care (01) ==
LOC: ED 17:32
PROVIDERS: Emergency Medicine; Family Medicine
DX: K22.6 Gastro-esophageal laceration-hemorrhage syndrome (principal); E10.9 Type 1 diabetes mellitus without complications; E78.5 Hyperlipidemia, unspecified; F17.200 Nicotine dependence, unspecified, uncomplicated; Z88.6 Allergy status to analgesic agent; Z88.8 Allergy status to other drugs, medicaments and biological substances; Z91.048 Other nonmedicinal substance allergy status; Z79.4 Long term (current) use of insulin; Z79.84 Long term (current) use of oral hypoglycemic drugs; Z79.890 Hormone replacement therapy; Z79.899 Other long term (current) drug therapy
CPT/HCPCS: 36415; 80053; 80307; 81003; 82010; 82803; 83690; 85025; 85610; 85730; 86850; 86900; 86901; 96374; 96375; 99284-25; J1790; J1815

== ENCOUNTER 2024-01-21 10:46 | Emergency (ER) | payer MEDICARE, OTHER ==
[~2024-01-21] VITALS: Ht 165.1 cm; Wt 66.4 kg
[2024-01-21] MEDS ORDERED: ondansetron HCL 4 MG/2 ML VIAL IV ONE (11:00)
[2024-01-21] MEDS ORDERED: MORPHINE SULFATE 4 MG/ML VIAL IV PRN (11:30)
[2024-01-21] MEDS ORDERED: METOCLOPRAMIDE HCL 10 MG/2 ML SDV IV ONE (11:30)
[2024-01-21] MEDS ORDERED: SODIUM CHLORIDE 0.9% 1,000 ML IV PRN (11:30)
[2024-01-21] MEDS ORDERED: PANTOPRAZOLE SODIUM 40 MG/10 ML VIAL IV ONE (11:30)
[2024-01-21 12:39] LABS: BILIRUBIN, URINE NEGATIVE (negative); BLOOD/HGB, URINE NEGATIVE (Negative); KETONE, URINE SMALL (Negative); LEUK ESTERASE, URINE NEGATIVE (negative); NITRITE, URINE POSITIVE (negative)
[2024-01-21 12:47] LABS: EPITHELIAL CELLS, URINE SQUAMOUS 3+ /lpf (0-1+)
[2024-01-21 12:48] LABS: BACTERIA, URINE 3+ /hpf (negative); CASTS, URINE NONE SEEN \\lpf; CRYSTALS, URINE NONE SEEN (0-1+); RED BLOOD CELLS, URINE 0-1 /hpf (0-5)
[2024-01-21 12:49] LABS: COLLECTION TYPE, URINE CLEAN CATCH; REFLEX CULTURE, URINE No (No)
[2024-01-21] MEDS ORDERED: MORPHINE SULFATE 4 MG/ML VIAL IM PRN (13:00)
[2024-01-21] MEDS ORDERED: METOCLOPRAMIDE HCL 10 MG/2 ML SDV IM ONE (13:00)
[2024-01-21 13:08] LABS: ALBUMIN 3.5 g/dL (3.4-5.0); ALBUMIN/GLOBULIN RATIO 0.81 (1.1-2.4); BILIRUBIN, TOTAL 0.9 ng/dL (0.2-1.0); BUN/CREATININE RATIO 23.91 (6.0-28.6); CALCIUM 8.9 mg/dL (8.5-10.1); CREATININE, SERUM 0.46 mg/dL (0.55-1.02); MAGNESIUM 1.4 mg/dL (1.8-2.4); PROTEIN, TOTAL 7.8 g/dL (6.4-8.2)
[2024-01-21 13:09] LABS: BASOPHILS 2.5 % (0-2); EOSINOPHILS 1.1 % (0-6); HEMATOCRIT 43.6 % (35.0-50.0); HEMOGLOBIN 15.5 g/dL (12.0-18.0); LYMPHOCYTES 27.7 % (24-44); MCH 29.1 (27-36); MCHC 35.6 g/dl (30-36); MCV 81.6 fl (81-99); MONOCYTES 8.1 % (0-12); NEUTROPHILS 60.6 % (39-80); PLATELET COUNT 199 K/uL (140-440); RBC 5.35 M/ul (4.3-5.7); RDW 14.9 (10.5-15.0)
[2024-01-21 13:38] LABS: ANION GAP 15.9 (7-21); POTASSIUM 4.9 mmol/L (3.5-5.1)
[2024-01-21] MEDS ORDERED: MAGNESIUM HYDROXIDE 30 ML UDC PO ONE (13:45)
[2024-01-21 14:54] LABS: BILIRUBIN, URINE NEGATIVE (negative); BLOOD/HGB, URINE NEGATIVE (Negative); KETONE, URINE SMALL (Negative); LEUK ESTERASE, URINE NEGATIVE (negative); NITRITE, URINE NEGATIVE (negative)
[2024-01-21] MEDS ORDERED: ONDANSETRON ODT8 MG PO (15:34)
[2024-01-21 15:39] VITALS: BP 137/95
== END 2024-01-21 15:39 | disposition left against medical advice (07) ==
LOC: ED 10:46
PROVIDERS: Emergency Medicine
DX: R10.11 Right upper quadrant pain (principal); E10.65 Type 1 diabetes mellitus with hyperglycemia; E83.42 Hypomagnesemia; R11.2 Nausea with vomiting, unspecified; Z53.29 Procedure and treatment not carried out because of patient's decision for other reasons; F17.200 Nicotine dependence, unspecified, uncomplicated; Z88.8 Allergy status to other drugs, medicaments and biological substances; Z91.09 Other allergy status, other than to drugs and biological substances; Z79.899 Other long term (current) drug therapy; Z79.84 Long term (current) use of oral hypoglycemic drugs; Z79.4 Long term (current) use of insulin; Z79.52 Long term (current) use of systemic steroids
CPT/HCPCS: 36415; 80053; 81001; 81003; 83690; 83735; 84703; 85025; 96372; 99284; J2270; J2765

== ENCOUNTER 2024-01-30 11:00 | Emergency (ER) | payer MEDICARE, OTHER ==
[~2024-01-30] VITALS: Ht 165.1 cm; Wt 65.2 kg
[2024-01-30 11:54] LABS: BILIRUBIN, URINE NEGATIVE (negative); BLOOD/HGB, URINE NEGATIVE (Negative); KETONE, URINE TRACE (Negative); LEUK ESTERASE, URINE NEGATIVE (negative); NITRITE, URINE NEGATIVE (negative)
[2024-01-30] MEDS ORDERED: SODIUM CHLORIDE 0.9% 1,000 ML IV ONE (12:00)
[2024-01-30] MEDS ORDERED: ondansetron HCL 4 MG/2 ML VIAL IV ONE ×2 (12:00→16:15)
[2024-01-30] MEDS ORDERED: HYDROmorphone HCL 1 MG/ML SYR IV ONE ×3 (12:00→16:15)
[2024-01-30 12:52] LABS: BASOPHILS 1.2 % (0-2); EOSINOPHILS 0.9 % (0-6); LYMPHOCYTES 26.4 % (24-44); MONOCYTES 6.9 % (0-12); NEUTROPHILS 64.6 % (39-80); PLATELET COUNT 250 K/uL (140-440)
[2024-01-30 13:09] LABS: HEMOGLOBIN 14.5 g/dL (12.0-18.0); RBC 5.19 M/ul (4.3-5.7)
[2024-01-30 13:10] LABS: MCH 27.9 (27-36); MCHC 33.7 g/dl (30-36); MCV 82.8 fl (81-99); RDW 14.9 (10.5-15.0)
[2024-01-30 13:23] LABS: ALBUMIN 3.8 g/dL (3.4-5.0); ALBUMIN/GLOBULIN RATIO 0.95 (1.1-2.4); ANION GAP 16.4 (7-21); BILIRUBIN, TOTAL 0.7 ng/dL (0.2-1.0); BUN/CREATININE RATIO 19.04 (6.0-28.6); CALCIUM 9.2 mg/dL (8.5-10.1); CREATININE, SERUM 0.63 mg/dL (0.55-1.02); POTASSIUM 4.4 mmol/L (3.5-5.1); PROTEIN, TOTAL 7.8 g/dL (6.4-8.2)
[2024-01-30] MEDS ORDERED: HYDROCODON-ACE1 EA10 PO (17:47)
[2024-01-30 17:51] VITALS: BP 122/76
== END 2024-01-30 17:55 | disposition home or self-care (01) ==
LOC: ED 11:00
PROVIDERS: Emergency Medicine
DX: R10.30 Lower abdominal pain, unspecified (principal); E10.9 Type 1 diabetes mellitus without complications; K76.0 Fatty (change of) liver, not elsewhere classified; K76.89 Other specified diseases of liver; F17.200 Nicotine dependence, unspecified, uncomplicated; Z91.09 Other allergy status, other than to drugs and biological substances; Z79.899 Other long term (current) drug therapy; Z79.84 Long term (current) use of oral hypoglycemic drugs; Z79.4 Long term (current) use of insulin; Z79.52 Long term (current) use of systemic steroids; Z79.890 Hormone replacement therapy
CPT/HCPCS: 36415; 74176; 74177; 80053; 81003; 83690; 84703; 85025; 96375; 96376; 99284-25; J1170; J2405; J7030

== ENCOUNTER 2024-02-06 19:25 | Emergency (ER) | payer MEDICARE, OTHER ==
[~2024-02-06] VITALS: Ht 165.1 cm; Wt 37.0 kg
[2024-02-06] MEDS ORDERED: METRONIDAZOLE500 MG PO (19:37)
[2024-02-06] MEDS ORDERED: HYDROmorphone HCL 1 MG/ML SYR IV PRN (19:45)
[2024-02-06] MEDS ORDERED: ondansetron HCL 4 MG/2 ML VIAL IV ONE (19:45)
[2024-02-06] MEDS ORDERED: LACTATED RINGER'S 1,000 ML IV ONE (19:45)
[2024-02-06 20:34] LABS: INFLUENZA B NAA NEGATIVE (NEGATIVE); RESPIRATORY SYNCYTIAL VIR NAA NEGATIVE (NEGATIVE)
[2024-02-06 21:06] LABS: BASOPHILS 0.8 % (0-2); EOSINOPHILS 0.2 % (0-6); HEMATOCRIT 41.6 % (35.0-50.0); HEMOGLOBIN 13.9 g/dL (12.0-18.0); LYMPHOCYTES 9.6 % (24-44); MCH 27.7 (27-36); MCHC 33.5 g/dl (30-36); MCV 82.8 fl (81-99); MONOCYTES 11.5 % (0-12); NEUTROPHILS 77.9 % (39-80); PLATELET COUNT 165 K/uL (140-440); RBC 5.02 M/ul (4.3-5.7); RDW 14.6 (10.5-15.0)
[2024-02-06 21:23] LABS: ALBUMIN 3.6 g/dL (3.4-5.0); ALBUMIN/GLOBULIN RATIO 1.09 (1.1-2.4); ALCOHOL, MEDICAL <3 ng/dL (<3); ALKALINE PHOSPHATASE 67 U/L (46-116); ALT (SGPT) 37 U/L (14-59); ANION GAP 17.8 (7-21); BUN/CREATININE RATIO 18.51 (6.0-28.6); CALCIUM 8.8 mg/dL (8.5-10.1); CARBON DIOXIDE 21 mmol/L (21-32); CHLORIDE 94 mmol/L (98-107); CREATININE, SERUM 0.54 mg/dL (0.55-1.02); GLOMERULAR FILTRATION RATE,EST 124 mL/min (>60); POTASSIUM 3.8 mmol/L (3.5-5.1); PROTEIN, TOTAL 6.9 g/dL (6.4-8.2); UREA NITROGEN 10 mg/dL (7-18)
[2024-02-06 21:40] VITALS: BP 104/77
[2024-02-06 22:19] LABS: AST (SGOT) 24 U/L (15-37)
--- NOTE | 2024-02-08 17:37 | EKG ---
[facility] [address] [facility] [facility] [place] [address] Signed Sinus tachycardia Cannot rule out Anterior infarct , age undetermined Abnormal ECG When compared with ECG of 22-MAY-2023 15:18, Sinus rhythm has replaced Atrial fibrillation Vent. rate has increased BY 67 BPM Questionable change in QRS duration Minimal criteria for Anterior infarct are now present Confirmed by Randy Mcintosh MD ([id number]) on 02/08/2024 5:37:36 PM Electronically Signed By: RANDY MCINTOSH DO 02/08/24 1737 PATIENT NAME: CLIFF LEEENE MARCELA THOMAS Electrocardiogram DATE OF : 88 PHYSICIAN: RANDY MCINTOSH DO REPORT #: [id number] REPORT IS CONFIDENTIAL AND NOT TO BE RELEASED WITHOUT AUTHORIZATION
== END 2024-02-06 21:40 | disposition home or self-care (01) ==
LOC: ED 19:25
PROVIDERS: Internal Medicine
DX: E86.0 Dehydration (principal); R10.11 Right upper quadrant pain; R10.12 Left upper quadrant pain; E10.9 Type 1 diabetes mellitus without complications; E78.5 Hyperlipidemia, unspecified; F17.200 Nicotine dependence, unspecified, uncomplicated; Z88.8 Allergy status to other drugs, medicaments and biological substances; Z88.6 Allergy status to analgesic agent; Z91.048 Other nonmedicinal substance allergy status; Z79.899 Other long term (current) drug therapy; Z79.890 Hormone replacement therapy; Z79.4 Long term (current) use of insulin; Z79.84 Long term (current) use of oral hypoglycemic drugs
CPT/HCPCS: 36415; 71045; 80053; 80307; 82010; 83690; 84484; 84703; 85025; 87502; 93005; 93010; 96374; 99284-25; G0480; J1170; U0002

== ENCOUNTER 2024-09-25 12:08 | Emergency (ER) | payer MEDICARE, OTHER ==
[~2024-09-25] VITALS: Ht 165.1 cm; Wt 62.7 kg
[~2024-09-25 12:08] MED LIST changes: +METRONIDAZOLE500 MG PO
[2024-09-25] MEDS ORDERED: CREON DR 36,001 EACH PO (12:47)
[2024-09-25 13:20] LABS: BASOPHILS 0.7 % (0.1-1.2); EOSINOPHILS 1.1 % (0.7-5.8); HEMATOCRIT 39.3 % (34.1-44.9); HEMOGLOBIN 13.5 g/dL (11.2-15.7); LYMPHOCYTES 13.3 % (19.3-51.7); MCH 29.7 PG (25.6-32.2); MCHC 34.4 g/dL (32.2-35.5); MCV 86.4 fL (79.4-94.8); MONOCYTES 7.1 % (4.7-12.5); NEUTROPHILS 76.4 % (34.0-71.1); PLATELET COUNT 303 K/uL (182-369); RBC 4.55 M/uL (3.93-5.22)
[2024-09-25 13:30] LABS: ALBUMIN 2.7 g/dL (3.4-5.0); ALBUMIN/GLOBULIN RATIO 0.59 (1.1-2.4); BILIRUBIN, TOTAL 0.4 mg/dL (0.2-1.0); CALCIUM 8.7 mg/dL (8.5-10.1); CREATININE, SERUM 0.75 mg/dL (0.55-1.02); PROTEIN, TOTAL 7.3 g/dL (6.4-8.2)
[2024-09-25] MEDS ORDERED: SODIUM CHLORIDE 0.9% 1,000 ML IV PRN (13:30)
[2024-09-25 13:33] LABS: PH, VENOUS 7.398 (7.31-7.41)
[2024-09-25 13:34] LABS: BILIRUBIN, URINE NEGATIVE (negative); BLOOD/HGB, URINE NEGATIVE (Negative); KETONE, URINE SMALL (Negative); LEUK ESTERASE, URINE NEGATIVE (negative); NITRITE, URINE NEGATIVE (negative)
[2024-09-25 13:43] LABS: BACTERIA, URINE 2+ /hpf (negative); CASTS, URINE NONE SEEN \\lpf; CRYSTALS, URINE NONE SEEN (0-1+); EPITHELIAL CELLS, URINE SQUAMOUS 2+ /lpf (0-1+); RED BLOOD CELLS, URINE 0-1 /hpf (0-5)
[2024-09-25 13:44] LABS: COLLECTION TYPE, URINE CLEAN CATCH; REFLEX CULTURE, URINE No (No)
[2024-09-25] MEDS ORDERED: Insulin Regular, Human 100 UNIT/ML ML IV ONE (15:00)
[2024-09-25] MEDS ORDERED: AMOX TR-K CLV1 EAC1 PO (17:03)
[2024-09-25] MEDS ORDERED: AMOXICILLIN/CLAVULANATE K 875 MG TAB PO ONE (17:15)
[2024-09-25 17:17] VITALS: BP 137/113
== END 2024-09-25 17:17 | disposition home or self-care (01) ==
LOC: ED 12:08
PROVIDERS: Emergency Medicine
DX: J18.9 Pneumonia, unspecified organism (principal); E10.65 Type 1 diabetes mellitus with hyperglycemia; E10.10 Type 1 diabetes mellitus with ketoacidosis without coma; F17.200 Nicotine dependence, unspecified, uncomplicated; Z88.8 Allergy status to other drugs, medicaments and biological substances; Z88.7 Allergy status to serum and vaccine; Z79.899 Other long term (current) drug therapy
CPT/HCPCS: 36415; 80053; 81001; 82803; 85025; 96361; 96374; 99284-25; J1815; J7030

== ENCOUNTER 2025-01-17 10:24 | Emergency (ER) | payer MEDICARE, OTHER ==
[~2025-01-17] VITALS: Ht 165.1 cm; Wt 59.1 kg
[~2025-01-17 10:24] MED LIST changes: +CREON DR 36,001 EACH PO; +GABAPENTIN100 MG PO; +TOPIRAMATE ER50 M1 PO
[2025-01-17] MEDS ORDERED: SODIUM CHLORIDE 0.9% 2,000 ML IV ONE (10:45)
[2025-01-17] MEDS ORDERED: MORPHINE SULFATE 4 MG/ML VIAL IV ONE ×2 (10:45→12:45)
[2025-01-17 11:08] LABS: BASOPHILS 0.8 % (0.1-1.2); EOSINOPHILS 1.1 % (0.7-5.8); LYMPHOCYTES 23.3 % (19.3-51.7); MCH 29.1 PG (25.6-32.2); MCHC 34.7 g/dL (32.2-35.5); MCV 83.9 fL (79.4-94.8); MONOCYTES 9.2 % (4.7-12.5); NEUTROPHILS 65.3 % (34.0-71.1); RBC 5.33 M/uL (3.93-5.22)
[2025-01-17 11:26] LABS: ALT (SGPT) 21.0 U/L (14-59); AST (SGOT) 15.0 U/L (15-37); GLOMERULAR FILTRATION RATE,EST 119.0 mL/min (>60); PROTEIN, TOTAL 7.4 g/dL (6.4-8.2); UREA NITROGEN 5.0 mg/dL (7-18)
[2025-01-17 11:53] LABS: BLOOD/HGB, URINE NEGATIVE (Negative); KETONE, URINE SMALL (Negative); LEUK ESTERASE, URINE NEGATIVE (negative); NITRITE, URINE POSITIVE (negative)
[2025-01-17 12:00] LABS: BACTERIA, URINE 2+ /hpf (negative); CASTS, URINE NONE SEEN \\lpf; CRYSTALS, URINE NONE SEEN (0-1+); EPITHELIAL CELLS, URINE SQUAMOUS 4+ /lpf (0-1+)
[2025-01-17 12:01] LABS: REFLEX CULTURE, URINE No (No)
[2025-01-17] MEDS ORDERED: CEPHALEXIN500 M1 PO (12:45)
[2025-01-17 13:47] VITALS: BP 127/95
== END 2025-01-17 13:50 | disposition home or self-care (01) ==
LOC: ED 10:24
PROVIDERS: Emergency Medicine
DX: N39.0 Urinary tract infection, site not specified (principal); E10.65 Type 1 diabetes mellitus with hyperglycemia; E03.9 Hypothyroidism, unspecified; F17.200 Nicotine dependence, unspecified, uncomplicated; Z88.8 Allergy status to other drugs, medicaments and biological substances; Z88.6 Allergy status to analgesic agent; Z91.048 Other nonmedicinal substance allergy status; Z79.4 Long term (current) use of insulin; Z79.84 Long term (current) use of oral hypoglycemic drugs; Z79.899 Other long term (current) drug therapy; Z79.890 Hormone replacement therapy
CPT/HCPCS: 36415; 74177; 80053; 81001; 82800; 83690; 84703; 85025; 96361; 96365; 96375; 96376; 99284-25; J0696; J2270; J2405; J7030; Q9967

== ENCOUNTER 2025-02-23 09:50 | Emergency (ER) | payer MEDICARE, OTHER ==
[~2025-02-23] VITALS: Ht 165.1 cm; Wt 55.3 kg
--- OUTSIDE RECORDS SUMMARY | ~2025-02-23 | XMS | Continuity of Care Document ---
Demographics + + + | Address | [address] | | | [place] [address] | + + + | Preferred Language | Unknown | + + + | Marital Status | Domestic partner | + + + | Muslim Affiliation | Unknown | + + + | Race | White | + + + | Ethnic Group | Not or | + + + Author + + + | Author | [facility] | + + + | Organization | [facility] | + + + | Address | [address] | | | [place] [address] | + + + | Phone | | + + + Care Team Providers + + + + | Care Program Clerk Name | Role | Phone | + + + + Unavailable | Unavailable | + + + + Unavailable | Unavailable | + + + + Allergies and Intolerances + + + + + + | date | description | facility | reaction | severity | + + + + + + | 2024-12-09 | Pregabalin | [facility] | Vomiting | Moderate | | 00:00 | | [facility] | | | + + + + + + | 2024-12-09 | Lamotrigine | [facility] - | Rash | Moderate | | 00:00 | | [facility] | | | + + + + + + | 2024-12-09 | | [facility] - | (no reaction) | Severe | | 00:00 | Diphenhydramine | [facility] | | | + + + + + + | 2024-12-09 | Lamotrigine | [facility] - | Rash | Moderate | | 00:00 | | [facility] | | | + + + + + + | 2024-12-09 | Pregabalin | [facility] - | Vomiting | Moderate | | 00:00 | | [facility] | | | + + + + + + | 2024-12-09 | Varenicline | [facility] - | Vomiting | Mild | | 00:00 | | [facility] | | | + + + + + + | 2024-12-09 | Pregabalin | [facility] - | Vomiting | Moderate | | 00:00 | | [facility] | | | + + + + + + | 2024-12-09 | Varenicline | [facility] | Vomiting | Mild | | 00:00 | | [facility] | | | + + + + + + | 2024-12-09 | | [facility] - | (no reaction) | Severe | | 00:00 | Diphenhydramine | [facility] | | | + + + + + + | 2024-12-09 | | [facility] - | (no reaction) | Severe | | 00:00 | Diphenhydramine | [facility] | | | + + + + + + | 2024-12-09 | UNK | [facility] - | Active | Moderate | | 00:00 | | [facility] | [facility] | | | + + + + + + | 2024-12-09 | Lamotrigine | [facility] - | Rash | Moderate | | 00:00 | | [facility] | | | + + + + + + | 2024-12-09 | Varenicline | [facility] - | Vomiting | Mild | | 00:00 | | [facility] | | | + + + + + + | 2024-12-09 | UNK | [facility] - | Rash | Moderate | | 00:00 | | [facility] | | | + + + + + + Encounters No information. Functional Status No information. Immunizations No information. Medications + + + + | date | description | facility | + + + + | (no date) | CETIRIZINE HCL | [facility] | | | | [facility] | + + + + | (no date) | ONDANSETRON | [facility] | | | | [facility] | + + + + | 2024-12-20 00:00 | ONDANSETRON | [facility] | | | | [facility] | + + + + | (no date) | ONDANSETRON HCL | [facility] | | | | [facility] | + + + + | (no date) | DOCUSATE SODIUM | [facility] | | | | [facility] | + + + + | (no date) | DOCUSATE SODIUM | [facility] | | | | [facility] | + + + + | (no date) | LIPASE/PROTEASE/AMYLASE | [facility] | | | | [facility] | + + + + | (no date) | Topiramate | [facility] | | | | [facility] | + + + + | (no date) | QUETIAPINE FUMARATE | [facility] | | | | [facility] | + + + + | (no date) | INSULIN LISPRO | [facility] | | | | [facility] | + + + + | (no date) | FLUTICASONE PROPIONATE 50 | [facility] | | | [facility] | [facility] | + + + + | (no date) | ESTRADIOL | [facility] | | | | [facility] | + + + + | (no date) | IBUPROFEN | [facility] | | | | [facility] | + + + + | (no date) | OMEPRAZOLE | [facility] | | | | [facility] | + + + + | (no date) | PRAZOSIN HCL | [facility] | | | | [facility] | + + + + | (no date) | POTASSIUM GLUCONATE | [facility] | | | | [facility] | + + + + | (no ) | MAGNESIUM OXIDE | [facility] | | | | [facility] | + + + + | (no ) | PIOGLITAZONE HCL | [facility] | | | | [facility] | + + + + | (no ) | PANTOPRAZOLE SODIUM | [facility] | | | | [facility] | + + + + | (no ) | Aspirin | [facility] | | | [facility] | + + + + | (no date) | GABAPENTIN | [facility] | | | | [facility] | + + + + | (no date) | GABAPENTIN | [facility] | | | | [facility] | + + + + | (no date) | GEMFIBROZIL | [facility] | | | | [facility] | + + + + | (no date) | QUETIAPINE FUMARATE | [facility] | | | | [facility] | + + + + | (no date) | QUETIAPINE FUMARATE | [facility] | | | | [facility] | + + + + | (no date) | OMEPRAZOLE | [facility] | | | | [facility] | + + + + | (no date) | INSULIN DETEMIR | [facility] | | | | [facility] | + + + + | (no date) | QUETIAPINE FUMARATE | [facility] | | | | [facility] | + + + + | (no date) | NYSTATIN | [facility] | | | | [facility] | + + + + | (no date) | FENOFIBRATE | [facility] | | | | [facility] | + + + + | (no date) | CYCLOBENZAPRINE HCL | [facility] | | | | [facility] | + + + + | (no date) | INSULIN | [facility] | | | MATTHEW BRAVO | [facility] | + + + + | 2024-12-20 00:00 | HYDROCODONE | [facility] | | | BIT/ACETAMINOPHEN | [facility] | + + + + | (no date) | ALBUTEROL SULFATE | [facility] | | | | [facility] | + + + + | (no date) | ROSUVASTATIN CALCIUM | [facility] | | | | [facility] | + + + + | (no date) | Rosuvastatin Calcium | [facility] | | | | [facility] | + + + + | (no date) | METFORMIN HCL | [facility] | | | [facility] | + + + + | (no date) | METFORMIN HCL | [facility] | | | | [facility] | + + + + | (no date) | METFORMIN HCL | [facility] | | | [facility] | + + + + | (no date) | LIPASE/PROTEASE/AMYLASE | [facility] | | | | [facility] | + + + + | (no date) | LIPASE/PROTEASE/AMYLASE | [facility] | | | | [facility] | + + + + | (no date) | BUSPIRONE HCL | [facility] | | | | [facility] | + + + + | (no date) | POLYETHYLENE GLYCOL 3350 | [facility] | | | [facility] | + + + + | (no date) | LEVOTHYROXINE SODIUM | [facility] | | | [facility] | + + + + | (no date) | Levothyroxine Sodium | [facility] | | | [facility] | + + + + | (no date) | LEVOTHYROXINE SODIUM | [facility] | | | | [facility] | + + + + | (no date) | BUDESONIDE | [facility] | | | | [facility] | + + + + | (no date) | HYDROXYZINE PAMOATE | [facility] | | | [facility] | + + + + | (no date) | hydrOXYzine HCL | [facility] | | | | [facility] | + + + + Problems No information. Procedures No information. Results/Labs +--------+--------+ +---------+--------+---------+ | test | date | facility | value | unit | notes | +--------+--------+ +---------+--------+---------+ + + | Result panel 1 | + + + + + + + + + | Acetone | 2024-12-09 | | NEGATIVE | (missing) | (missing) | | SerPl Ql Scn | 14:13:07 | [facility] | | | | + + + + + + + + + | Result panel 2 | + + + + + + + + + | HCG SerPl | 2024-12-09 | | NEGATIVE | (missing) | (missing) | | Ql | 14:13:07 | [facility] | | | | + + + + + + + + + | Result panel 3 | + + + + + +-------+---------+ + | Magnesium | 2024-12-10 | | 1.5 | mg/dL | (missing) | | SerPl-mCnc | 05:15:07 | [facility] | | | | + + + +-------+---------+ + + + | Result panel 4 | + + + + + +-------+ + + | Glucose | 2024-12-20 | | 468 | (missing) | (missing) | | Bld-Devan | 13:28:07 | [facility] | | | | + + + +-------+ + + + + | Result panel 5 | + + + + + +--------+ + + | WBC # Bld | 2024-12-20 | | 8.70 | (missing) | (missing) | | Auto | 14:02:07 | [facility] | | | | + + + +--------+ + + + + | Result panel 6 | + + + + + +--------+ + + | Lymphocytes | 2024-12-20 | | 15.6 | (missing) | (missing) | | NFr Bld | 14:02:07 | [facility] | | | | | Auto | [facility] | | | | + + + +--------+ + + + + | Result panel 7 | + + + + + +-------+ + + | Monocytes | 2024-12-20 | | 6.9 | (missing) | (missing) | | NFr Bld Auto | 14:02:07 | [facility] | | | | + + + +-------+ + + + + | Result panel 8 | + + + + + +-------+ + + | Eosinophil | 2024-12-20 | | 0.5 | (missing) | (missing) | | NFr Bld Auto | 14:02:07 | [facility] | | | | + + + +-------+ + + + + | Result panel 9 | + + + + + +-------+ + + | Basophils | 2024-12-20 | | 0.8 | (missing) | (missing) | | NFr Bld Auto | 14:02:07 | [facility] | | | | + + + +-------+ + + + + | Result panel 10 | + + + + + +--------+ + + | RBC # Bld | 2024-12-20 | | 5.29 | (missing) | (missing) | | Auto | 14:02:07 | [facility] | | | | + + + +--------+ + + + + | Result panel 11 | + + + + + +---------+ + + | pH BldV | 2024-12-20 | | 7.375 | (missing) | (missing) | | | 14:02:07 | [facility] | | | | + + + +---------+ + + + + | Result panel 12 | + + + + + +-------+---------+ + | Glucose | 2024-12-20 | | 442 | mg/dL | (missing) | | SerPl-mCnc | 14:02:07 | [facility] | | | | + + + +-------+---------+ + + + | Result panel 13 | + + + + + +------+---------+ + | BUN | 2024-12-20 | | 14 | mg/dL | (missing) | | SerPl-mCnc | 14:02:07 | [facility] | | | | + + + +------+---------+ + + + | Result panel 14 | + + + + + +--------+ + + | Hgb | 2024-12-20 | | 15.2 | (missing) | (missing) | | Bld-mCnc | 14:02:07 | [facility] | | | | + + + +--------+ + + + + | Result panel 15 | + + + + + +--------+---------+ + | Creat | 2024-12-20 | | 0.60 | mg/dL | (missing) | | Kiyal-Devan | 14:02:07 | [facility] | [facility] | | | | + + + +--------+---------+ + + + | Result panel 16 | + + + + + +-------+ + + | eGFRcr | 2024-12-20 | | 120 | (missing) | (missing) | | SerPlBld | 14:02:07 | [facility] | | | | | CKD-EPI 2020 | [facility] | | | | + + + +-------+ + + + + | Result panel 17 | + + + + + +---------+ + + | BUN/Creat | 2024-12-20 | | 23.33 | (missing) | (missing) | | SerPl | 14:02:07 | [facility] | | | | + + + +---------+ + + + + | Result panel 18 | + + + + + +-------+ + + | Sodium | 2024-12-20 | | 130 | (missing) | (missing) | | SerPl-sCnc | 14:02:07 | [facility] | | [facility] | | | | + + + +-------+ + + + + | Result panel 19 | + + + + + +-------+ + + | Potassium | 2024-12-20 | | 4.1 | (missing) | (missing) | | SerPl-sCnc | 14:02:07 | [facility] | [facility] | | | | + + + +-------+ + + + + | Result panel 20 | + + + + + +------+ + + | Chloride | 2024-12-20 | | 97 | (missing) | (missing) | | SerPl-sCnc | 14:02:07 | [facility] | [facility] | | | | + + + +------+ + + + + | Result panel 21 | + + + + + +------+ + + | CO2 | 2024-12-20 | | 23 | (missing) | (missing) | | SerPl-sCnc | 14:02:07 | [facility] | | [facility] | | | | + + + +------+ + + + + | Result panel 22 | + + + + + +--------+ + + | Anion Gap | 2024-12-20 | | 14.1 | (missing) | (missing) | | SerPl | 14:02:07 | [facility] | | | | | Calculated.4 | [facility] I[facility]-s[facility]nc | [facility] | | | | + + + +--------+ + + + + | Result panel 23 | + + + + + +-------+---------+ + | Calcium | 2024-12-20 | | 9.3 | mg/dL | (missing) | | SerPl-mCnc | 14:02:07 | [facility] | | | [facility] | | | | + + + +-------+---------+ + + + | Result panel 24 | + + + + + +-------+ + + | Prot | 2024-12-20 | | 7.6 | (missing) | (missing) | | [facility] | 14:02:07 | [facility] | | | | + + + +-------+ + + + + | Result panel 25 | + + + + + +--------+ + + | Hct VFr.DF | 2024-12-20 | | 45.0 | (missing) | (missing) | | Bld Auto | 14:02:07 | [facility] | | | | + + + +--------+ + + + + | Result panel 26 | + + + + + +-------+ + + | Albumin | 2024-12-20 | | 3.9 | (missing) | (missing) | | SerPl-mCnc | 14:02:07 | [facility] | | | | + + + +-------+ + + + + | Result panel 27 | + + + + + +-------+ + + | Globulin | 2024-12-20 | | 3.7 | (missing) | (missing) | | Ser-mCnc | 14:02:07 | [facility] | | | | + + + +-------+ + + + + | Result panel 28 | + + + + + +--------+ + + | | 2024-12-20 | | 1.05 | (missing) | (missing) | | Albumin/Glob | 14:02:07 | [facility] | | | | | SerPl | [facility] | | | | + + + +--------+ + + + + | Result panel 29 | + + + + + +-------+---------+ + | Bilirub | 2024-12-20 | | 0.6 | mg/dL | (missing) | | SerPl-mCnc | 14:02:07 | [facility] | | | | + + + +-------+---------+ + + + | Result panel 30 | + + + + + +------+ + + | AST | 2024-12-20 | | 15 | (missing) | (missing) | | SerPl-cCnc | 14:02:07 | [facility] | | | | + + + +------+ + + + + | Result panel 31 | + + + + + +------+ + + | ALT | 2024-12-20 | | 27 | (missing) | (missing) | | SerPl-cCnc | 14:02:07 | [facility] | | | | + + + +------+ + + + + | Result panel 32 | + + + + + +------+ + + | ALP | 2024-12-20 | | 79 | (missing) | (missing) | | SerPl-cCnc | 14:02:07 | [facility] | | | | + + + +------+ + + + + | Result panel 33 | + + + + + +------+ + + | Lipase | 2024-12-20 | | 37 | (missing) | (missing) | | [facility] | 14:02:07 | [facility] | | | | + + + +------+ + + + + | Result panel 34 | + + + + + +--------+ + + | RBC Auto | 2024-12-20 | | 85.1 | (missing) | (missing) | | | 14:02:07 | [facility] | | | | + + + +--------+ + + + + | Result panel 35 | + + + + + +--------+ + + | MCH RBC Qn | 2024-12-20 | | 28.7 | (missing) | (missing) | | Auto | 14:02:07 | [facility] | | | | + + + +--------+ + + + + | Result panel 36 | + + + + + +--------+ + + | MCHC RBC | 2024-12-20 | | 33.8 | (missing) | (missing) | | Auto-EntMCnc | 14:02: | [facility] | | | | + + + +--------+ + + + + | Result panel 37 | + + + + + +-------+ + + | Platelet # | 2024-12-20 | | 238 | (missing) | (missing) | | Bld Auto | 14:02:07 | [facility] | | | | + + + +-------+ + + + + | Result panel 38 | + + + + + +--------+ + + | Neutrophils | 2024-12-20 | | 75.7 | (missing) | (missing) | | NFr Bld | 14:02:07 | [facility] | | | | | Auto | [facility] | | | | + + + +--------+ + + + + | Result panel 39 | + + + + + + + + + | Color Ur | 2024-12-20 | | YELLOW | (missing) | (missing) | | Auto | 14:11:07 | [facility] | | | | + + + + + + + + + | Result panel 40 | + + + + + +---------+ + + | Character | 2024-12-20 | | CLEAR | (missing) | (missing) | | Ur | 14:11:07 | [facility] | | | | + + + +---------+ + + + + | Result panel 41 | + + + + + + + + + | Glucose Ur | 2024-12-20 | | >=1000 | (missing) | (missing) | | Ql Strip | 14:11:07 | [facility] | | | | + + + + + + + + + | Result panel 42 | + + + + + + + + + | Constantine Ur | 2024-12-20 | | NEGATIVE | (missing) | (missing) | | Ql Strip | 14:11:07 | [facility] | | | | + + + + + + + + + | Result panel 43 | + + + + + +---------+ + + | Ketones Ur | 2024-12-20 | | SMALL | (missing) | (missing) | | Ql Strip | 14:11:07 | [facility] | | | | | | | - | | | | | | | [facility] | | | | + + + +---------+ + + + + | Result panel 44 | + + + + + +---------+ + + | Sp Gr Ur | 2024-12-20 | | 1.010 | (missing) | (missing) | | Strip | 14:11:07 | [facility] | | | | + + + +---------+ + + + + | Result panel 45 | + + + + + + + + + | Hgb Ur Ql | 2024-12-20 | | NEGATIVE | (missing) | (missing) | | Strip | 14:11:07 | [facility] | | | | + + + + + + + + + | Result panel 46 | + + + + + +-------+ + + | pH Ur Strip | 2024-12-20 | | 6.0 | (missing) | (missing) | | | 14:11:07 | [facility] | | | | + + + +-------+ + + + + | Result panel 47 | + + + + + + + + + | Prot Ur | 2024-12-20 | | NEGATIVE | (missing) | (missing) | | Strip-mCnc | 14:11:07 | [facility] | | | | + + + + + + + + + | Result panel 48 | + + + + + + + + + | | 2024-12-20 | | NORMAL | (missing) | (missing) | | Urobilinogen | 14:11:07 | [facility] | | | | | Ur | [facility] Strip-m[facility]nc | [facility] | | | | + + + + + + + + + | Result panel 49 | + + + + + + + + + | Nitrite Ur | 2024-12-20 | | NEGATIVE | (missing) | (missing) | | Ql Strip | 14:11:07 | [facility] | | | | + + + + + + + + + | Result panel 50 | + + + + + + + + + | Leukocyte | 2024-12-20 | | NEGATIVE | (missing) | (missing) | | esterase Ur | 14:11:07 | [facility] | | | | | Ql Strip | [facility] | | | | + + + + + + + Social History +--------+ + + | date | description | facility | +--------+ + + Vital Signs + + + +---------+ | date | measurement | value | units | + + + +---------+ | 2024-12-09 00:00 | BMI | 22.2 | kg/m2 | + + + +---------+ | 2024-12-09 00:00 | height_metric | 165.1 | cm | + + + +---------+ | 2024-12-09 00:00 | height_standard | 65 | in | + + + +---------+ | 2024-12-09 00:00 | weight_metric | 60.6 | kg | + + + +---------+ | 2024-12-09 00:00 | weight_standard | 133.600 | lb | + + + +---------+ | 2024-12-10 00:00 | BP_diastolic | 95 | mmHg | + + + +---------+ | 2024-12-10 00:00 | BP_systolic | 132 | mmHg | + + + +---------+ | 2024-12-10 00:00 | heart_rate | 102 | /min | + + + +---------+ | 2024-12-10 00:00 | o2_saturation | 100 | % | + + + +---------+ | 2024-12-10 00:00 | respiration_rate | 21 | /min | + + + +---------+ | 2024-12-10 00:00 | | 98.3 | F | | | temperature_standar | | | | | d | | | + + + +---------+ | 2024-12-20 00:00 | BMI | 21.7 | kg/m2 | + + + +---------+ | 2024-12-20 00:00 | BP_diastolic | 98 | mmHg | + + + +---------+ | 2024-12-20 00:00 | BP_systolic | 133 | mmHg | + + + +---------+ | 2024-12-20 00:00 | heart_rate | 98 | /min | + + + +---------+ | 2024-12-20 00:00 | height_metric | 165.1 | cm | + + + +---------+ | 2024-12-20 00:00 | height_standard | 65 | in | + + + +---------+ | 2024-12-20 00:00 | o2_saturation | 98 | % | + + + +---------+ | 2024-12-20 00:00 | respiration_rate | 17 | /min | + + + +---------+ | 2024-12-20 00:00 | | 98.2 | F | | | temperature_standar | | | | | d | | | + + + +---------+ | 2024-12-20 00:00 | weight_metric | 59.1 | kg | + + + +---------+ | 2024-12-20 00:00 | weight_standard | 130.293 | lb | + + + +---------+"
[2025-02-23] MEDS ORDERED: SYMBICORT 80-10.2 GM INH (10:12)
[2025-02-23] MEDS ORDERED: ESCITALOPRAM OX10 MG PO (10:12)
[2025-02-23] MEDS ORDERED: HYDROmorphone HCL 1 MG/ML SYR IV PRN (10:45)
[2025-02-23] MEDS ORDERED: SODIUM CHLORIDE 0.9% 1,000 ML IV ONE (10:45)
[2025-02-23 12:01] LABS: BASOPHILS 0.6 % (0.1-1.2); EOSINOPHILS 1.1 % (0.7-5.8); LYMPHOCYTES 17.2 % (19.3-51.7); MCH 28.9 PG (25.6-32.2); MCHC 33.9 g/dL (32.2-35.5); MCV 85.1 fL (79.4-94.8); MONOCYTES 7.6 % (4.7-12.5); NEUTROPHILS 73.3 % (34.0-71.1); RBC 4.64 M/uL (3.93-5.22)
[2025-02-23 12:18] LABS: ALT (SGPT) 23.0 U/L (14-59); AST (SGOT) 11.0 U/L (15-37); GLOMERULAR FILTRATION RATE,EST 102.0 mL/min (>60); PROTEIN, TOTAL 5.9 g/dL (6.4-8.2); UREA NITROGEN 18.0 mg/dL (7-18)
[2025-02-23] MEDS ORDERED: Insulin Regular, Human 100 UNIT/ML ML SUB-Q ONE (12:30)
[2025-02-23 12:35] LABS: BLOOD/HGB, URINE NEGATIVE (Negative); KETONE, URINE NEGATIVE (Negative); LEUK ESTERASE, URINE NEGATIVE (negative); NITRITE, URINE NEGATIVE (negative)
[2025-02-23 13:45] VITALS: BP 127/84
== END 2025-02-23 13:45 | disposition home or self-care (01) ==
LOC: ED 09:50
PROVIDERS: Emergency Medicine
DX: E10.65 Type 1 diabetes mellitus with hyperglycemia (principal); E78.5 Hyperlipidemia, unspecified; F17.200 Nicotine dependence, unspecified, uncomplicated; Z79.4 Long term (current) use of insulin; Z79.84 Long term (current) use of oral hypoglycemic drugs; Z79.890 Hormone replacement therapy; Z79.899 Other long term (current) drug therapy; Z88.8 Allergy status to other drugs, medicaments and biological substances; Z88.6 Allergy status to analgesic agent; Z91.048 Other nonmedicinal substance allergy status
CPT/HCPCS: 36415; 80053; 81003; 82010; 82800; 83690; 84703; 85025; 96361; 96374; 96375; 96376; 99284-25; J1171; J1815; J2405; J7030

== ENCOUNTER 2025-03-04 05:31 | Emergency (ER) | payer MEDICARE, OTHER ==
[~2025-03-04] VITALS: Ht 165.1 cm; Wt 57.7 kg
--- OUTSIDE RECORDS SUMMARY | ~2025-03-04 | XMS | Continuity of Care Document ---
Demographics + + + | Address | [address] | | | [place] [address] | + + + | Preferred Language | Unknown | + + + | Marital Status | Never | + + + | Restorationism Affiliation | Unknown | + + + | Race | White | + + + | Ethnic Group | Not or | + + + Author + + + | Author | [facility] | + + + | Organization | [facility] | + + + | Address | [address] | | | [place] [address] | + + + | Phone | | + + + Care Team Providers + + + + | Care Finisher Tailor Apprentice Name | Role | Phone | + [...] + + + + + + | 2025-01-17 | Pregabalin | [facility] - | Vomiting [...] + + + + + + | 2025-01-17 | Lamotrigine | [facility] - | Rash | Moderate | | 00:00 | | [facility] | | | + + + + + + | 2024-12-09 | | [facility] - | (no reaction) | Severe | | 00:00 | Diphenhydramine | [facility] | | | + + + + + + | 2025-01-17 | | [facility] - | (no reaction) | Severe | | 00:00 | Diphenhydramine | [facility] | | | + + + + + + | 2024-12-09 | Lamotrigine | [facility] - | Rash | Moderate | | 00:00 | | [facility] | | | + + + + + + | 2025-01-17 | Lamotrigine | [facility] - | Rash | Moderate | | 00:00 | | [facility] | | | + + + + + + | 2025-01-17 | Pregabalin | [facility] - | Vomiting [...] + + + + + + | 2025-01-17 | Varenicline | [facility] - | Vomiting | Mild | | 00:00 | | [facility] | | | + + + + + + | 2024-12-09 | Pregabalin | [facility] - | Vomiting | Moderate | | 00:00 | | [facility] | | | + + + + + + | 2025-01-17 | Pregabalin | [facility] - | Vomiting [...] + + + + + + | 2025-01-17 | Varenicline | [facility] - | Vomiting [...] + + + + + + | 2025-01-17 | | [facility] - | (no reaction) [...] + + + + + + | 2025-01-17 | | [facility] - | (no reaction) | Severe | | 00:00 | Diphenhydramine | [facility] | | | + + + + + + | 2024-12-09 | UNK | [facility] - | Active | Moderate | | 00:00 | | [facility] | | | + + + + + + | 2025-01-17 | UNK | [facility] - | Active | Moderate | | 00:00 | | [facility] | | | + + + + + + | 2024-12-09 | Lamotrigine | [facility] - | Rash | Moderate | | 00:00 | | [facility] | | | + + + + + + | 2025-01-17 | Lamotrigine | [facility] - | Rash [...] + + + + + + | 2025-01-17 | Varenicline | [facility] - | Vomiting [...] + + + + + + | 2025-01-17 | UNK | [facility] - | Rash | Moderate | | 00:00 | | [facility] | | | + + + + + + Encounters No information. Functional Status No information. Immunizations No information. Medications + + + + | date | description | facility | + + + + | (no date) | CETIRIZINE HCL | [facility] | | | | [facility] | + + + + | (no date) | CETIRIZINE HCL | [facility] | | | | [facility] | + + + + | (no date) | [facility]SETRON [facility] | | | | [facility] | + + + + | (no date) | ONDANSETRON | [facility] | | | | [facility] | + + + + | 2024-12-20 00:00 | ONDANSETRON | [facility] | | | | [facility] | + + + + | 2024-12-20 00:00 | ONDANSETRON | [facility] | | | | [facility] | + + + + | (no date) | ONDANSETRON HCL | [facility] | | | | [facility] | + + + + | (no date) | ONDANSETRON HCL | [facility] | | | | [facility] | + + + + | (no date) | DOCUSATE SODIUM | [facility] | | | | [facility] | + + + + | (no date) | DOCUSATE SODIUM | [facility] | | | | [facility] | + + + + | (no date) | DOCUSATE SODIUM | [facility] | | | | [facility] | + + + + | (no date) | DOCUSATE SODIUM | [facility] | | | | [facility] | + + + + | (no date) | BUDESONIDE/FORMOTEROL | [facility] | | | FUMARATE | [facility] | + + + + | (no date) | LIPASE/PROTEASE/AMYLASE | [facility] | | | | [facility] | + + + + | (no date) | LIPASE/PROTEASE/AMYLASE | [facility] | | | | [facility] | + + + + | (no date) | Topiramate | [facility] | | | | [facility] | + + + + | (no date) | Topiramate | [facility] | | | | [facility] | + + + + | (no date) | QUETIAPINE FUMARATE | [facility] | | | | [facility] | + + + + | (no date) | QUETIAPINE FUMARATE | [facility] | | | | [facility] | + + + + | (no date) | INSULIN LISPRO | [facility] | | | | [facility] | + + + + | (no date) | INSULIN LISPRO | [facility] | | | | [facility] | + + + + | (no date) | FLUTICASONE PROPIONATE 50 | [facility] | | | [facility] | [facility] | + + + + | (no date) | FLUTICASONE PROPIONATE 50 | [facility] | | | MCG | [facility] | + + + + | (no date) | ESTRADIOL | [facility] | | | | [facility] | + + + + | (no date) | ESTRADIOL | [facility] | | | | [facility] | + + + + | (no date) | IBUPROFEN | [facility] | | | | [facility] | + + + + | (no date) | IBUPROFEN | [facility] | | | | [facility] | + + + + | (no date) | OMEPRAZOLE | [facility] | | | | [facility] | + + + + | (no date) | OMEPRAZOLE | [facility] | | | | [facility] | + + + + | (no date) | PRAZOSIN HCL | [facility] | | | | [facility] | + + + + | (no date) | PRAZOSIN HCL | [facility] | | | | [facility] | + + + + | (no date) | POTASSIUM GLUCONATE | [facility] | | | | [facility] | + + + + | (no date) | POTASSIUM GLUCONATE | [facility] | | | | [facility] | + + + + | (no date) | MAGNESIUM OXIDE | [facility] | | | | [facility] | + + + + | (no date) | MAGNESIUM OXIDE | [facility] | | | | [facility] | + + + + | (no date) | PIOGLITAZONE HCL | [facility] | | | [facility] | + + + + | (no date) | PIOGLITAZONE HCL | [facility] | | | | [facility] | + + + + | (no date) | PANTOPRAZOLE SODIUM | [facility] | | | | [facility] | + + + + | (no date) | PANTOPRAZOLE SODIUM | [facility] | | | | [facility] | + + + + | (no date) | Aspirin | [facility] | | | | [facility] | + + + + | (no date) | Aspirin | [facility] | | | | [facility] | + + + + | (no date) | GABAPENTIN | [facility] | | | [facility] | + + + + | (no date) | GABAPENTIN | [facility] | | | | [facility] | + + + + | (no date) | GABAPENTIN | [facility] | | | [facility] | + + + + | (no date) | GABAPENTIN | [facility] | | | | [facility] | + + + + | (no date) | GEMFIBROZIL | [facility] | | | | [facility] | + + + + | (no date) | GEMFIBROZIL | [facility] | | | | [facility] | + + + + | (no date) | QUETIAPINE FUMARATE | [facility] | | | | [facility] | + + + + | (no date) | QUETIAPINE FUMARATE | [facility] | | | | [facility] | + + + + | (no date) | QUETIAPINE FUMARATE | [facility] | | | | [facility] | + + + + | (no date) | QUETIAPINE FUMARATE | [facility] | | | | [facility] | + + + + | (no date) | ESCITALOPRAM OXALATE | [facility] | | | | [facility] | + + + + | (no date) | OMEPRAZOLE | [facility] | | | | [facility] | + + + + | (no date) | OMEPRAZOLE | [facility] | | | | [facility] | + + + + | (no date) | INSULIN DETEMIR | [facility] | | | | [facility] | + + + + | (no date) | INSULIN DETEMIR | [facility] | | | | [facility] | + + + + | (no date) | QUETIAPINE FUMARATE | [facility] | | | [facility] | + + + + | (no date) | QUETIAPINE FUMARATE | [facility] | | | | [facility] | + + + + | (no date) | NYSTATIN | [facility] | | | | [facility] | + + + + | (no date) | NYSTATIN | [facility] | | | | [facility] | + + + + | (no date) | FENOFIBRATE | [facility] | | | | [facility] | + + + + | (no date) | FENOFIBRATE | [facility] | | | [facility] | + + + + | (no date) | CYCLOBENZAPRINE HCL | [facility] | | | [facility] | + + + + | (no date) | CYCLOBENZAPRINE HCL | [facility] | | | [facility] | + + + + | (no date) | INSULIN | [facility] | | | HUM. LAWRENCERECKEREN | [facility] | + + + + | (no date) | INSULIN | [facility] | | | GLARGINE,HUM.REC.ANLOG | [facility] | + + + + | 2024-12-20 00:00 | HYDROCODONE | [facility] | | | BIT/ACETAMINOPHEN | [facility] | + + + + | (no date) | ALBUTEROL SULFATE | [facility] | | | | [facility] | + + + + | (no date) | ALBUTEROL SULFATE | [facility] | | | | [facility] | + + + + | (no date) | ROSUVASTATIN CALCIUM | [facility] | | | | [facility] | + + + + | (no date) | ROSUVASTATIN CALCIUM | [facility] | | | | [facility] | + + + + | (no date) | Rosuvastatin Calcium | [facility] | | | | [facility] | + + + + | (no date) | Rosuvastatin Calcium | [facility] | | | | [facility] | + + + + | (no date) | METFORMIN HCL | [facility] | | | | [facility] | + + + + | (no date) | METFORMIN HCL | [facility] | | | | [facility] | + + + + | (no date) | METFORMIN HCL | [facility] | | | | [facility] | + + + + | (no date) | METFORMIN HCL | [facility] | | | | [facility] | + + + + | (no date) | METFORMIN HCL | [facility] | | | | [facility] | + + + + | (no date) | METFORMIN HCL | [facility] | | | | [facility] | + + + + | (no date) | LIPASE/PROTEASE/AMYLASE | [facility] | | | | [facility] | + + + + | (no date) | LIPASE/PROTEASE/AMYLASE | [facility] | | | | [facility] | + + + + | (no date) | LIPASE/PROTEASE/AMYLASE | [facility] | | | | [facility] | + + + + | (no date) | LIPASE/PROTEASE/AMYLASE | [facility] | | | | [facility] | + + + + | (no date) | BUSPIRONE HCL | [facility] | | | | [facility] | + + + + | (no date) | BUSPIRONE HCL | [facility] | | | | [facility] | + + + + | (no date) | POLYETHYLENE GLYCOL 3350 | [facility] | | | | [facility] | + + + + | (no date) | POLYETHYLENE GLYCOL 3350 | [facility] | | | | [facility] | + + + + | (no ) | LEVOTHYROXINE SODIUM | [facility] | | | | [facility] | + + + + | (no ) | LEVOTHYROXINE SODIUM | [facility] | | | | [facility] | + + + + | (no date) | Levothyroxine Sodium | [facility] | | | | [facility] | + + + + | (no date) | Levothyroxine Sodium | [facility] | | | | [facility] | + + + + | (no date) | LEVOTHYROXINE SODIUM | [facility] | | | | [facility] | + + + + | (no date) | LEVOTHYROXINE SODIUM | [facility] | | | | [facility] | + + + + | (no date) | BUDESONIDE | [facility] | | | | [facility] | + + + + | (no date) | BUDESONIDE | [facility] | | | | [facility] | + + + + | (no date) | HYDROXYZINE PAMOATE | [facility] | | | | [facility] | + + + + | (no date) | HYDROXYZINE PAMOATE | [facility] | | | | [facility] | + + + + | (no date) | hydrOXYzine HCL | [facility] | | | | [facility] | + + + + | (no date) | hydrOXYzine HCL | [facility] | | | | [facility] | + + + + Problems + + + + | date | description | facility | + + + + | 2025-01-17 00:00 | Uncontrolled diabetes | [facility] | | | mellitus | [facility] | + + + + | 2025-01-17 00:00 | Abdominal pain in female | [facility] | | | | [facility] | + + + + Procedures No information. Results/Labs +--------+--------+ +---------+--------+---------+ | [...] 468 | (missing) | (missing) | | Bld-mCnc | 13:28:07 | [facility] | | | [...] 7 | + + + + + +--------+ [...] 8 | + + + + + +--------+ + + | Hct VFr.DF | 2024-12-20 | | 45.0 | (missing) | (missing) | | Bld Auto | 14:02:07 | [facility] | | | [facility] | | [facility] | | | | + + + +--------+ + + + + | Result panel 9 | + + + + + +--------+ [...] 11 | + + + + + +--------+ + + | MCHC RBC | 2024-12-20 | | 33.8 | (missing) | (missing) | | Auto-EntMCnc | 14:02:07 | [facility] | | | | + + + +--------+ + + + + | Result panel 12 | + + + + + +-------+ [...] 13 | + + + + + +--------+ [...] 15 | + + + + + +-------+ + + | Monocytes | 2024-12-20 | | 6.9 | (missing) | (missing) | | NFr Bld Auto | 14:02:07 | [facility] | | | | | | | [...] 17 | + + + + + +-------+ [...] 18 | + + + + + +---------+ [...] 19 | + + + + + +-------+---------+ + | Glucose | 2024-12-20 | | 442 | mg/dL | (missing) | | SerPbecky-Devan | 14:02:07 | [facility] | | | | + + + +-------+---------+ + + + | Result panel 20 | + + + + + +------+---------+ [...] +------+---------+ + + + | Result panel 21 | + + + + + +--------+---------+ + | Creat | 2024-12-20 | | 0.60 | mg/dL | (missing) | | SerPl-mCnc | 14:02:07 | [facility] | | | | + + + +--------+---------+ + + + | Result panel 22 | + + + + + +-------+ [...] 23 | + + + + + +---------+ + + | STACEY/Flo | 2024-12-20 | | 23.33 | (missing) | (missing) | | SerPl | 14:02:07 | [facility] | | | | | [...] (missing) | (missing) | | SerPl-sCnc | 14:: | [facility] | | | | + + + +-------+ + + + + | Result panel 25 | + + + + + +-------+ + + | Potassium | 2024-12-20 | | 4.1 | (missing) | (missing) | | SerPl-sCnc | 14:02: | [facility] | | | | + + + +-------+ + + + + | Result panel 26 | + + + + + +------+ + + | Chloride | 2024-12-20 | | 97 | (missing) | (missing) | | SerPl-sCnc | 14:02:07 | [facility] | | | | + + + +------+ + + + + | Result panel 27 | + + + + + +------+ [...] 30 | + + + + + +-------+ + + | Prot | 2024-12-20 | | 7.6 | (missing) | (missing) | | Amie | 14:02:07 | [facility] | | | | + + + +-------+ + + + + | Result panel 31 | + + + + + +-------+ + + | Albumin | 2024-12-20 | | 3.9 | (missing) | (missing) | | SerPl-Devan | 14:02:07 | [facility] | | | | + + + +-------+ + + + + | Result panel 32 | + + + + + +-------+ + + | Globulin | 2024-12-20 | | 3.7 | (missing) | (missing) | | Ser-[facility] | 14:02:07 | [facility] | | | | + + + +-------+ + + + + | Result panel 33 | + + + + + +--------+ + + | | 2024-12-20 | | 1.05 | (missing) | (missing) | | Albumin/Glob | 14:02: | [facility] | | | | | SerPl | [facility] | | | | + + + +--------+ + + + + | Result panel 34 | + + + + + +-------+---------+ [...] +-------+---------+ + + + | Result panel 35 | + + + + + +------+ [...] 36 | + + + + + +------+ [...] 37 | + + + + + +------+ [...] 38 | + + + + + +------+ + + | Lipase | 2024-12-20 | | 37 | (missing) | (missing) | | SerPl-cCnc [...] + + + + + + | Bilirub Ur | 2024-12-20 | | NEGATIVE | [...] + + + + + + | Zeinab Moya | 2024-12-20 | | NEGATIVE | (missing) [...] 51 | + + + + + +---------+ + + | Glucose | 2025-02-23 | | > 500 | (missing) | (missing) | | Bld-mCnc | 10:20:07 | [facility] | | | | + + + +---------+ + + + + | Result panel 52 | + + + + + +--------+ + + | WBC # Bld | 2025-02-23 | | 5.41 | (missing) | (missing) | | Auto | 10:56:07 | [facility] | | | | + + + +--------+ + + + + | Result panel 53 | + + + + + +--------+ + + | Lymphocytes | 2025-02-23 | | 17.2 | (missing) | (missing) | | NFr Bld | 10:56:07 | [facility] | | | | | Auto | [facility] | | | | + + + +--------+ + + + + | Result panel 54 | + + + + + +-------+ + + | Monocytes | 2025-02-23 | | 7.6 | (missing) | (missing) | | NFr Bld Auto | 10:56:07 | [facility] | | | | + + + +-------+ + + + + | Result panel 55 | + + + + + +-------+ + + | Eosinophil | 2025-02-23 | | 1.1 | (missing) | (missing) | | NFr Bld Auto | 10:56:07 | [facility] | | | | + + + +-------+ + + + + | Result panel 56 | + + + + + +-------+ + + | Basophils | 2025-02-23 | | 0.6 | (missing) | (missing) | | NFr Bld Auto | 10:56:07 | [facility] | | | | + + + +-------+ + + + + | Result panel 57 | + + + + + +--------+ + + | RBC # Bld | 2025-02-23 | | 4.64 | (missing) | (missing) | | Auto | 10:56:07 | [facility] | | | | + + + +--------+ + + + + | Result panel 58 | + + + + + +---------+ + + | pH BldV | 2025-02-23 | | 7.359 | (missing) | (missing) | | | 10:56:07 | [facility] | | | | | | - | | | | | | | [facility] | | | | + + + +---------+ + + + + | Result panel 59 | + + + + + +-------+---------+ + | Glucose | 2025-02-23 | | 558 | mg/dL | (missing) | | SerPl-mCnc | 10:56:07 | [facility] | | | | | | | - | | | | | | | [facility] | | | | + + + +-------+---------+ + + + | Result panel 60 | + + + + + +------+---------+ + | BUN | 2025-02-23 | | 18 | mg/dL | (missing) | | SerPl-mCnc | 10:56:07 | [facility] | | | | + + + +------+---------+ + + + | Result panel 61 | + + + + + +--------+ + + | Hgb | 2025-02-23 | | 13.4 | (missing) | (missing) | | Bld-mCnc | 10:56:07 | [facility] | | | | + + + +--------+ + + + + | Result panel 62 | + + + + + +--------+---------+ + | Creat | 2025-02-23 | | 0.78 | mg/dL | (missing) | | SerPl-mCnc | 10:56:07 | [facility] | | | | | | | - | | | | | | | [facility] | | | | + + + +--------+---------+ + + + | Result panel 63 | + + + + + +-------+ + + | eGFRcr | 2025-02-23 | | 102 | (missing) | (missing) | | SerPlBld | 10:56:07 | [facility] | | | | | CKD-EPI 2020 | [facility] | | | | + + + +-------+ + + + + | Result panel 64 | + + + + + +---------+ + + | BUN/Creat | 2025-02-23 | | 23.07 | (missing) | (missing) | | SerPl | 10:56:07 | [facility] | | | | + + + +---------+ + + + + | Result panel 65 | + + + + + +-------+ + + | Sodium | 2025-02-23 | | 136 | (missing) | (missing) | | SerPl-sCnc | 10:56:07 | [facility] | | | | + + + +-------+ + + + + | Result panel 66 | + + + + + +-------+ + + | Potassium | 2025-02-23 | | 4.2 | (missing) | (missing) | | Ser[facility] | 10:56:07 | [facility] | | | | + + + +-------+ + + + + | Result panel 67 | + + + + + +-------+ + + | Chloride | 2025-02-23 | | 100 | (missing) | (missing) | | SerPl-sCnc | 10:56:07 | [facility] | | | | + + + +-------+ + + + + | Result panel 68 | + + + + + +------+ + + | CO2 | 2025-02-23 | | 26 | (missing) | (missing) | | SerPl-sCnc | 10:56:07 | [facility] | | | | + + + +------+ + + + + | Result panel 69 | + + + + + +--------+ + + | Anion Gap | 2025-02-23 | | 14.2 | (missing) | (missing) | | Ser[facility] | 10:56:07 | [facility] | | | | | Calculated.4 | [facility] | | | | + + + +--------+ + + + + | Result panel 70 | + + + + + +-------+---------+ + | Calcium | 2025-02-23 | | 8.8 | mg/dL | (missing) | | [facility] | 10:56:07 | [facility] | | | | + + + +-------+---------+ + + + | Result panel 71 | + + + + + +-------+ + + | Prot | 2025-02-23 | | 5.9 | (missing) | (missing) | | [facility] | 10:56:07 | [facility] | | | | + + + +-------+ + + + + | Result panel 72 | + + + + + +--------+ + + | Hct VFr.DF | 2025-02-23 | | 39.5 | (missing) | (missing) | | Bld Auto | 10:56:07 | [facility] | | | | + + + +--------+ + + + + | Result panel 73 | + + + + + +-------+ + + | Albumin | 2025-02-23 | | 3.1 | (missing) | (missing) | | [facility] | 10:56:07 | [facility] | | | | + + + +-------+ + + + + | Result panel 74 | + + + + + +-------+ + + | Globulin | 2025-02-23 | | 2.8 | (missing) | (missing) | | Ser-mCnc | 10:56:07 | [facility] | | | | + + + +-------+ + + + + | Result panel 75 | + + + + + +--------+ + + | | 2025-02-23 | | 1.11 | (missing) | (missing) | | Albumin/Glob | 10:56:07 | [facility] | | | | + + + +--------+ + + + + | Result panel 76 | + + + + + +-------+---------+ + | Bilirub | 2025-02-23 | | 0.2 | mg/dL | (missing) | | SerPl-mCnc | 10:56:07 | [facility] | | | | + + + +-------+---------+ + + + | Result panel 77 | + + + + + +------+ + + | AST | 2025-02-23 | | 11 | (missing) | (missing) | | SerPl-cCnc | 10:56:07 | [facility] | | | | + + + +------+ + + + + | Result panel 78 | + + + + + +------+ + + | ALT | 2025-02-23 | | 23 | (missing) | (missing) | | SerPl-cCnc | 10:56:07 | [facility] | | | | + + + +------+ + + + + | Result panel 79 | + + + + + +------+ + + | ALP | 2025-02-23 | | 71 | (missing) | (missing) | | SerPl-cCnc | 10:56:07 | [facility] | | | | + + + +------+ + + + + | Result panel 80 | + + + + + +------+ + + | Lipase | 2025-02-23 | | 43 | (missing) | (missing) | | SerPl-cCnc | 10:56:07 | [facility] | | | | + + + +------+ + + + + | Result panel 81 | + + + + + + + + + | Acetone | 2025-02-23 | | NEGATIVE | (missing) | (missing) | | SerPl Ql Scn | 10:56:07 | [facility] | | | | + + + + + + + + + | Result panel 82 | + + + + + + + + + | HCG SerPl | 2025-02-23 | | NEGATIVE | (missing) | (missing) | | Ql | 10:56:07 | [facility] | | | | + + + + + + + + + | Result panel 83 | + + + + + +--------+ + + | RBC Auto | 2025-02-23 | | 85.1 | (missing) | (missing) | | | 10:56:07 | [facility] | | | | + + + +--------+ + + + + | Result panel 84 | + + + + + +--------+ + + | MCH RBC Qn | 2025-02-23 | | 28.9 | (missing) | (missing) | | Auto | 10:56:07 | [facility] | | | | + + + +--------+ + + + + | Result panel 85 | + + + + + +--------+ + + | MCHC RBC | 2025-02-23 | | 33.9 | (missing) | (missing) | | Auto-EntMCnc | 10:56:07 | [facility] | | | | + + + +--------+ + + + + | Result panel 86 | + + + + + +-------+ + + | Platelet # | 2025-02-23 | | 175 | (missing) | (missing) | | Bld Auto | 10:56:07 | [facility] | | | | + + + +-------+ + + + + | Result panel 87 | + + + + + +--------+ + + | Neutrophils | 2025-02-23 | | 73.3 | (missing) | (missing) | | NFr Bld | 10:56:07 | [facility] | | | | | Auto [facility] | | | | + + + +--------+ + + + + | Result panel 88 | + + + + + + + + + | Color Ur | 2025-02-23 | | YELLOW | (missing) | (missing) | | Auto | 12:29:07 | [facility] | | | | + + + + + + + + + | Result panel 89 | + + + + + + + + + | Character | 2025-02-23 | | SL CLOUDY | (missing) | (missing) | | Ur | 12:29:07 | [facility] | | | | + + + + + + + + + | Result panel 90 | + + + + + + + + + | Glucose Ur | 2025-02-23 | | >=1000 | (missing) | (missing) | | Ql Strip | 12:29:07 | [facility] | | | | + + + + + + + + + | Result panel 91 | + + + + + + + + + | Constantine Ur | 2025-02-23 | | NEGATIVE | (missing) | (missing) | | Ql Strip | 12:29:07 | [facility] | | | | + + + + + + + + + | Result panel 92 | + + + + + + + + + | Ketones Ur | 2025-02-23 | | NEGATIVE | (missing) | (missing) | | Ql Strip | 12:29:07 | [facility] | | | | + + + + + + + + + | Result panel 93 | + + + + + +---------+ + + | Sp Gr Ur | 2025-02-23 | | 1.010 | (missing) | (missing) | | Strip | 12:29:07 | [facility] | | | | + + + +---------+ + + + + | Result panel 94 | + + + + + + + + + | Hgb Ur Ql | 2025-02-23 | | NEGATIVE | (missing) | (missing) | | Strip | 12:29:07 | [facility] | | | | + + + + + + + + + | Result panel 95 | + + + + + +-------+ + + | pH Ur Strip | 2025-02-23 | | 5.5 | (missing) | (missing) | | | 12:29:07 | [facility] | | | | + + + +-------+ + + + + | Result panel 96 | + + + + + + + + + | Prot Ur | 2025-02-23 | | NEGATIVE | (missing) | (missing) | | Strip-mCnc | 12:29:07 | [facility] | | | | + + + + + + + + + | Result panel 97 | + + + + + + + + + | | 2025-02-23 | | NORMAL | (missing) | (missing) | | Urobilinogen | 12:29:07 | [facility] | | | | | Ur [facility] | | | | + + + + + + + + + | Result panel 98 | + + + + + + + + + | Nitrite Ur | 2025-02-23 | | NEGATIVE | (missing) | (missing) | | Ql Strip | 12:29:07 | [facility] | | | | + + + + + + + + + | Result panel 99 | + + + + + + + + + | Leukocyte | 2025-02-23 | | NEGATIVE | (missing) | (missing) | | esterase Ur | 12:29:07 | [facility] | | | | | [...] 130.293 | lb | + + + +---------+ | 2025-02-23 00:00 | BMI | 20.3 | kg/m2 | + + + +---------+ | 2025-02-23 00:00 | BP_diastolic | 84 | mmHg | + + + +---------+ | 2025-02-23 00:00 | BP_systolic | 127 | mmHg | + + + +---------+ | 2025-02-23 00:00 | heart_rate | 110 | /min | + + + +---------+ | 2025-02-23 00:00 | height_metric | 165.1 | cm | + + + +---------+ | 2025-02-23 00:00 | height_standard | 65 | in | + + + +---------+ | 2025-02-23 00:00 | o2_saturation | 98 | % | + + + +---------+ | 2025-02-23 00:00 | respiration_rate | 21 | /min | + + + +---------+ | 2025-02-23 00:00 | | 97.7 | F | | | temperature_standar | | | | | d | | | + + + +---------+ | 2025-02-23 00:00 | weight_metric | 55.301 | kg | + + + +---------+ | 2025-02-23 00:00 | weight_standard | 121.918 | lb | + + + +---------+"
[~2025-03-04 05:31] MED LIST changes: +ESCITALOPRAM OX10 MG PO; +SYMBICORT 80-10.2 GM INH
[2025-03-04] MEDS ORDERED: ROCURONIUM BROMIDE 50 MG/5 ML SYR IV ONE (05:45)
[2025-03-04] MEDS ORDERED: CHARCOAL/SORBITOL SOLUTION 50 GM/240 ML BTL PO ONE (05:45)
[2025-03-04] MEDS ORDERED: ETOMIDATE 40 MG/20 ML VIAL IV ONE (05:45)
[2025-03-04] MEDS ORDERED: LACTATED RINGER'S 1,000 ML IV ONE (05:45)
[2025-03-04 05:54] LABS: BASOPHILS 0.5 % (0.1-1.2); EOSINOPHILS 0.2 % (0.7-5.8); LYMPHOCYTES 16.5 % (19.3-51.7); MCH 29.1 PG (25.6-32.2); MCHC 34.1 g/dL (32.2-35.5); MCV 85.3 fL (79.4-94.8); MONOCYTES 8.5 % (4.7-12.5); NEUTROPHILS 74.1 % (34.0-71.1); RBC 4.02 M/uL (3.93-5.22)
[2025-03-04] MEDS ORDERED: SODIUM BICARBONATE 50 MEQ/50 ML VIAL ONE (05:57)
[2025-03-04] MEDS ORDERED: SODIUM BICARBONATE 50 MEQ/50 ML VIAL IV ONE ×2 (06:00→07:15)
[2025-03-04] MEDS ORDERED: SODIUM BICARBONATE 50 MEQ/50 ML SYR IV SCH (06:00)
[2025-03-04] MEDS ORDERED: LIDOCAINE 2% VISCOUS 6 ML SYR TOP ONE (06:00)
[2025-03-04 06:15] LABS: BASE EXCESS, BLOOD GAS 2.9 mmol/L (-2-2); HCO3, BLOOD GAS 28.8 mmol/L (22-26); O2 SATURATION, BLOOD GAS 96.3 % (95.0-100.0); PCO2, BLOOD GAS 47.5 mmHg (35-45); PH, BLOOD GAS 7.39 (7.35-7.45); PO2, BLOOD GAS 88.0 mmHg (80-100); TOTAL CO2, BLOOD GAS 30.3
[2025-03-04 06:16] LABS: OXYGEN RECEIVED, BLOOD GAS 2.0
[2025-03-04 06:18] LABS: LACTIC ACID, BLOOD 1.8 mmol/L (0.4-2.0)
[2025-03-04 06:21] LABS: BLOOD/HGB, URINE NEGATIVE (Negative); KETONE, URINE >=80 (Negative); LEUK ESTERASE, URINE NEGATIVE (negative); NITRITE, URINE NEGATIVE (negative)
[2025-03-04 06:34] LABS: ALCOHOL, MEDICAL <3 ng/dL (<3); ALT (SGPT) 22 U/L (14-59); AST (SGOT) 9 U/L (15-37); GLOMERULAR FILTRATION RATE,EST 117 mL/min (>60); PROTEIN, TOTAL 5.6 g/dL (6.4-8.2); TSH, 3RD GENERATION 5.474 uIU/mL (0.358-3.740); UREA NITROGEN 10 mg/dL (7-18)
[2025-03-04 06:35] LABS: AMPHETAMINES, URINE POSITIVE (NEGATIVE); BARBITURATES, URINE NEGATIVE (NEGATIVE); BENZODIAZEPINE, URINE NEGATIVE (NEGATIVE); CANNABINOID, URINE NEGATIVE (NEGATIVE); COCAINE, URINE NEGATIVE (NEGATIVE); ECSTASY, URINE POSITIVE (NEGATIVE); FENTANYL, URINE NEGATIVE (NEGATIVE); METHADONE, URINE NEGATIVE (NEGATIVE); OPIATES, URINE NEGATIVE (NEGATIVE); OXYCODONE, URINE NEGATIVE (NEGATIVE); PHENCYCLIDINE, URINE NEGATIVE (NEGATIVE)
[2025-03-04] MEDS ORDERED: MAGNESIUM SULFATE 2 GM/50 ML BAG IV ONE (07:15)
[2025-03-04] MEDS ORDERED: SODIUM BICARBONATE 150 MEQ in DEXTROSE 5% 1,000 ML IV SCH (07:15)
[2025-03-04] MEDS ORDERED: POTASSIUM CHLORIDE 10 MEQ/100 ML BAG IV SCH (07:15)
[2025-03-04] MEDS ORDERED: CALCIUM GLUCONATE 1,000 MG/10 ML VIAL IV ONE (07:15)
[2025-03-04 10:00] VITALS: BP 105/70
--- NOTE | 2025-03-06 07:37 | EKG ---
[facility] [address] [facility] [place], [place] [address] Signed Sinus tachycardia Right bundle branch block Possible Lateral infarct , age undetermined Cannot rule out Inferior infarct , age undetermined Abnormal ECG When compared with ECG of 04-MAR-2025 05:40, (Unconfirmed) No significant change was found Confirmed by Randy Mcintosh DO ([id number]) on 03/06/2025 7:37:04 AM Electronically Signed By: RANDY MCINTOSH DO 03/06/25 0737 PATIENT NAME: ROSASHAMEKAECCA Electrocardiogram DATE OF : 88 PHYSICIAN: RANDY MCINTOSH DO REPORT #: [id number] REPORT IS CONFIDENTIAL AND NOT TO BE RELEASED WITHOUT AUTHORIZATION
--- NOTE | 2025-03-06 07:37 | EKG ---
[facility] [address] [facility] [place], [place] [address] Signed Sinus tachycardia Right bundle branch block Cannot rule out Inferior infarct (cited on or before 04-MAR-2025) Abnormal ECG When compared with ECG of 04-MAR-2025 06:18, (Unconfirmed) No significant change was found Confirmed by Randy Mcintosh DO ([id number]) on 03/06/2025 7:37:11 AM Electronically Signed By: RANDY MCINTOSH DO 03/06/25 0737 PATIENT NAME: ROSASHAMEKAECCA Electrocardiogram DATE OF : 88 PHYSICIAN: RANDY MCINTOSH DO REPORT #: [id number] REPORT IS CONFIDENTIAL AND NOT TO BE RELEASED WITHOUT AUTHORIZATION
--- NOTE | 2025-03-06 07:37 | EKG ---
[facility] [address] [facility] [place] [address] Signed Sinus tachycardia Right bundle branch block Abnormal ECG When compared with ECG of 06-FEB-2024 19:29, Right bundle branch block is now present Minimal criteria for Anterior infarct are no longer present Confirmed by Silvio Mcintosh DO ([id number]) on 03/06/2025 7:36:58 AM Electronically Signed By: SILVIO MCINTOSH DO 03/06/25 0737 PATIENT NAME: SHAMEKA LEE Electrocardiogram DATE OF : 88 PHYSICIAN: SILVIO MCINTOSH DO REPORT #: [id number] REPORT IS CONFIDENTIAL AND NOT TO BE RELEASED WITHOUT AUTHORIZATION
== END 2025-03-04 10:20 | disposition short-term general hospital (02) ==
LOC: ED 05:31
PROVIDERS: Emergency Medicine; Internal Medicine
DX: T43.592A Poisoning by other antipsychotics and neuroleptics, intentional self-harm, initial encounter (principal); E78.5 Hyperlipidemia, unspecified; E10.10 Type 1 diabetes mellitus with ketoacidosis without coma; F17.200 Nicotine dependence, unspecified, uncomplicated; Z79.899 Other long term (current) drug therapy; Z88.8 Allergy status to other drugs, medicaments and biological substances
CPT/HCPCS: 31500; 36415; 36556; 36600; 51702; 71045; 80053; 80307; 81003; 82010; 82803; 83605; 83735; 83880; 84443; 84484; 84703; 85025; 87040; 93005; 93010; 94799; 96361; 96365; 96366; 96368; 96375; 96376; 99291; A4311; C1751; G0480; J0612; J2704; J3475; J3480; J3490; J7070; J7121